=== PATIENT | female | born 1970 | race Caucasian/White ===

== ENCOUNTER → 2018-08-15 12:05 | Outpatient (CLI) | payer MEDICAID, SELFPAY ==
--- NOTE | 2018-07-11 08:10 | EKG12_ITS ---
Test Reason : PRE OP Blood Pressure : / mmHG Vent. Rate : 095 BPM Atrial Rate : 095 BPM P-R Int : 132 ms QRS Dur : 088 ms QT Int : 348 ms P-R-T Axes : 063 090 063 degrees QTc Int : 437 ms Normal sinus rhythm Rightward axis Borderline ECG Confirmed by ELADIO SCHWARZ ([id number]), web content editor ROSSY LEACH ([id number]) on 07/16/2018 2:47:13 PM Referred By: Robb Padgett Confirmed By:ELADIO SCHWARZ
[2018-07-11 08:19] LABS: Absolute Lymphocyte Count 2.25 X10^3/ul (0.83-4.51); Absolute Neutrophil Count 5.7 X10^3/uL (2.0-7.7); Basophil# 0.04 X10^3/uL; Basophil% 0.4 % (0-1); Eosinophil# 0.17 X10^3/uL; Eosinophils% 1.9 % (0-5); Hematocrit 34.3 % (37-47); Lymphocyte # 2.25 X10^3/ul (4.0); Lymphocyte % 24.8 % (19-41); Mean Corp Hgb Conc 29.2 g/gl (32-36); Mean Corpuscular Hgb 24.2 pg (27.0-32.0); Mean Corpuscular Volume 83.1 fL (81-99); Mean Platelet Vol. 10.2 fl (6.2-12.0); Monocyte# 0.96 X10^3/uL; Monocyte% 10.6 % (0-10); Neutrophil # 5.65 X10^3/uL (2.7-7.7); Neutrophil % 62.2 % (47-70); Platelet Count 372 K/mm3 (150-450); RBC Distribution Width CV 17.4 % (11.6-14.6); RBC Distribution Width SD 51.4 fl (35.1-43.9); Red Blood Count 4.13 M/mm3 (4.2-5.4); White Blood Count 9.1 K/mm3 (4.4-11.0)
[2018-07-11 08:20] LABS: POSITIVE COUNT NO; POSITIVE DIFFERENTIAL NO; POSITIVE MORPHOLOGY NO
[2018-07-11 08:45] LABS: Anion Gap 10 (5-15); BUN 16 mg/dL (7-18); BUN/Creat Ratio 22.9 RATIO (10-20); Chloride 104 mmol/L (98-107); EST Glomerular Filtration Rate 95 mL/min (>60); Est Glom Filt Rate - Afr Amer 115 mL/min (>60); Glucose 97 mg/dL (74-106); Sodium Level 142 mmol/L (136-145)
== END ==
PROVIDERS: Physician Assistant; Family Provider Family Medicine; PCP Family Medicine; Referring Provider Orthopaedic Surgery; Visit Provider Orthopaedic Surgery
DX: Z01.818 Encounter for other preprocedural examination (principal)
CPT/HCPCS: 36415; 80048; 85025; 93005

== ENCOUNTER 2018-09-01 08:48 | Day surgery (SDC) | payer MEDICAID, SELFPAY ==
[2018-08-26 16:26] LABS: Hematocrit 39.5 % (37-47); Hemoglobin 11.8 g/dl (12.0-15.0); Mean Corp Hgb Conc 29.9 g/gl (32-36); Mean Corpuscular Hgb 25.5 pg (27.0-32.0); Mean Corpuscular Volume 85.3 fL (81-99); Mean Platelet Vol. 10.1 fl (6.2-12.0); Platelet Count 215 K/mm3 (150-450); RBC Distribution Width CV 19.7 % (11.6-14.6); RBC Distribution Width SD 61.4 fl (35.1-43.9); Red Blood Count 4.63 M/mm3 (4.2-5.4); White Blood Count 7.2 K/mm3 (4.4-11.0)
[2018-08-26 16:28] LABS: Scan Indicated on CBC? Y/N NO
[2018-08-26 16:53] LABS: Anion Gap 8 (5-15); BUN 15 mg/dL (7-18); BUN/Creat Ratio 18.9 RATIO (10-20); Chloride 101 mmol/L (98-107); Creatinine, Serum 0.79 mg/dL (0.55-1.02); EST Glomerular Filtration Rate 82 mL/min (>60); Est Glom Filt Rate - Afr Amer 100 mL/min (>60); Glucose 93 mg/dL (74-106); Potassium 4.2 mmol/L (3.5-5.1); Sodium Level 139 mmol/L (136-145)
[2018-09-01] VITALS (13 sets, daily range): BP systolic 105–150; BP diastolic 51–96; PULSE 86–110; RESP 18–28; TEMP 36.4–37.4; O2SAT 88–100; BMI 53.2
[2018-09-01 09:20] LABS: Hematocrit 38.5 % (37-47); Hemoglobin 11.7 g/dl (12.0-15.0); Mean Corp Hgb Conc 30.4 g/gl (32-36); Mean Corpuscular Hgb 26.2 pg (27.0-32.0); Mean Corpuscular Volume 86.1 fL (81-99); Mean Platelet Vol. 8.7 fl (6.2-12.0); Platelet Count 267 K/mm3 (150-450); RBC Distribution Width CV 20.3 % (11.6-14.6); RBC Distribution Width SD 62.9 fl (35.1-43.9); Red Blood Count 4.47 M/mm3 (4.2-5.4); White Blood Count 9.1 K/mm3 (4.4-11.0)
[2018-09-01 09:22] LABS: Scan Indicated on CBC? Y/N YES- FLAGS NOTED
[2018-09-01 09:27] LABS: Prothrombin Time (Protime)PT. 12.9 SECONDS (11.7-14.9)
[2018-09-01 09:28] LABS: Partial Thromboplast Time 33.2 Seconds (24.1-36.2)
[2018-09-01 09:46] LABS: Differential Comment SCANNED
[2018-09-01] MEDS: Bupiv/Epi 0.5% Mpf 30 ML Vial (11:08)
--- NOTE | 2018-09-01 12:41 | PCM.OPRPT ---
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: [employer] Type of Anesthesia:: General/Regional Anesthesiologist: Dyllan Chavez Description of Procedure: Primary Surgeon/Physician: Robb Padgett sales representative printing supplies: Supa Justice PA-C sales representative printing supplies: Pre-Operative Diagnosis: SAIS, AC arthrosis, biceps tendonopathy, rotator cuff tear right Post-Operative Diagnosis: same Surgery/Procedure Performed: ASD, Biceps tenotomy, Reji procedure, rotator cuff repair Estimated Blood Loss: minimal Specimen's Removed: none Type of Anesthesia: general\regional ASA Class: 3 Implants: [Arthrex swivel lock anchors x 2] Surgical Indications: [ ] Procedure Description: Patient was greeted in the preoperative area. Their [right ] shoulder was marked with surgical marker. Preoperative antibiotics were administered. The patient was then taken to the operating suite in a stable condition. After adequate anesthesia was obtained and it was secured there placed in standard beachchair position. All bony prominences were well-padded her head was secured in a beachchair positioner. The arm was then prepped and draped in the usual sterile fashion. Surgical timeout was performed surgery was commenced. Standard posterior viewing portal was made and 30? arthroscope was introduced into the glenohumeral joint. Anterior portal was made under direct visualization. Extensive debridement of the anterior capsule was performed evaluation of the shoulder itself was performed with the following findings: [Severe biceps tendinopathy with subluxation of the tendon from the bicipital groove. The biceps tendon was released and the labrum was treated with a shaver back to a stable rim. There was a complate tear of the rotator cuff. ]. The subacromial space was then entered and extensive debridement of the subacromial bursa was performed. The undersurface of the acromion was then debrided with a thermal wand. This did reveal a type II acromion. Subacromial decompression was then performed with a arthroscopic bur from anterolateral posteromedial create a type I acromion. When this was complete the wand was then utilized to debride the acromioclavicular joint. No significant osteoarthritic changes. A distal clavicle resection was then performed removing approximately 5 mm of distal clavicle not violating the superior acromioclavicular ligament. This was complete attention was then turned to the rotator cuff [ ]. The greater tuberosity was debrided and decorticated to create some bleeding for rotator cuff healing. [Two fiber tape sutures were placed in a horizontal mattress fashion and a fiber link suture was place through the anterior suture to augment the repair . Subsequently, these were brought out laterally and secured to the bone with 2 Arthrex swivel lock anchors.]. Excellent approximation of the rotator cuff to the decorticated bone was achieved. At this point all instruments were removed and the arthroscopic portals were closed with 3-0 nylon. Well-padded nonadherent dressing was applied and patient was taken to recovery room in stable condition. My assistant art director, Mr. Justice, provided a vital role in this procedure. He assisted in positioning the patient. He maneuvered the arm to provide optimal visualization during the procedure and he closed the operative wounds and applied the sterile post-op dressing. - Admit VTE Documentation VTE Present on Admission: No VTE Mechan Device Prophylaxis: SCD's VTE Pharm Prophylaxis ordered?: No Reason prophylaxis not ordered:: Treatment Not Indicated
[2018-09-01] MEDS: Ketorolac 30 MG/ML Syringe IV (12:45)
--- NOTE | 2018-09-01 12:55 | OP.PCM_ITS ---
Report of Operation Date of Procedure: 09/01/18 Pre-Operative Diagnosis: SAIS, AC Arthrosis, bicipital tendinopathy and large rotator cuff tear right shoulder Post-Operative Diagnosis: same Surgery/Procedure Performed:: Arthroscopic subacromial decompression, biceps tenotomy, Reji procedure, rotator cuff repair right shoulder charter boat operator: Supa Justice Type of Anesthesia:: General/Regional Anesthesiologist: Dyllan Chavez Description of Procedure: Primary Surgeon/Physician: Robb Padgett charter boat operator: Supa Justice PA-C charter boat operator: Pre-Operative Diagnosis: SAIS, AC arthrosis, biceps tendonopathy, rotator cuff tear right Post-Operative Diagnosis: same Surgery/Procedure Performed: ASD, Biceps tenotomy, Reji procedure, rotator cuff repair Estimated Blood Loss: minimal Specimen's Removed: none Type of Anesthesia: general\regional ASA Class: 3 Implants: [Arthrex swivel lock anchors x 2] Surgical Indications: [ ] Procedure Description: Patient was greeted in the preoperative area. Their [right ] shoulder was marked with surgical marker. Preoperative antibiotics were administered. The patient was then taken to the operating suite in a stable condition. After adequate anesthesia was obtained and it was secured there placed in standard beachchair position. All bony prominences were well- padded her head was secured in a beachchair positioner. The arm was then prepped and draped in the usual sterile fashion. Surgical timeout was performed surgery was commenced. Standard posterior viewing portal was made and 30? arthroscope was introduced into the glenohumeral joint. Anterior portal was made under direct visualization. Extensive debridement of the anterior capsule was performed evaluation of the shoulder itself was performed with the following findings: [Severe biceps tendinopathy with subluxation of the tendon from the bicipital groove. The biceps tendon was released and the labrum was treated with a shaver back to a stable rim. There was a complate tear of the rotator cuff. ]. The subacromial space was then entered and extensive debridement of the subacromial bursa was performed. The undersurface of the acromion was then debrided with a thermal wand. This did reveal a type II acromion. Subacromial decompression was then performed with a arthroscopic bur from anterolateral posteromedial create a type I acromion. When this was complete the wand was then utilized to debride the acromioclavicular joint. No significant osteoarthritic changes. A distal clavicle resection was then performed removing approximately 5 mm of distal clavicle not violating the superior acromioclavicu lar ligament. This was complete attention was then turned to the rotator cuff [ ]. The greater tuberosity was debrided and decorticated to create some bleeding for rotator cuff healing. [Two fiber tape sutures were placed in a horizontal mattress fashion and a fiber link suture was place through the anterior suture to augment the repair . Subsequently, these were brought out laterally and secured to the bone with 2 Arthrex swivel lock anchors.]. Excellent approximation of the rotator cuff to the decorticated bone was achieved. At this point all instruments were removed and the arthroscopic portals were closed with 3-0 nylon. Well-padded nonadherent dressing was applied and patient was taken to recovery room in stable condition. My assistant maintenance manager, Mr. Justice, provided a vital role in this procedure. He assisted in positioning the patient. He maneuvered the arm to provide optimal visualization during the procedure and he closed the operative wounds and applied the sterile post-op dressing. - Admit VTE Documentation VTE Present on Admission: No VTE Mechan Device Prophylaxis: SCD's VTE Pharm Prophylaxis ordered?: No Reason prophylaxis not ordered:: Treatment Not Indicated
[2018-09-01] MEDS: HYDROcodone Bitartrate/Apap 5/325 Tablet PO (15:36)
--- NOTE | 2018-09-01 17:36 | SUR.PHASEII ---
AT 1635, THIS RN ASSUMED CARE OF PATIENT. NOTED THAT PATIENT HAD ULTRASLING TO RIGHT ARM BUT WITHOUT PILLOW ATTACHMENT IN PLACE. O.R. NURSE COULD NOT SAY WHETHER PILLOW TO BE IN PLACE. PAGED BOTH DR MARTINEZ AND CLAUDIO GONZALEZ, THROUGH THE HOSPITAL BRAZER CONTROLLED ATMOSPHERIC FURNACE TO VERIFY CORRECT ULTRASLING APPLICATION BUT DID NOT RECEIVE A RETURN CALL FROM EITHER AFTER SEVERAL ATTEMPTS. GAVE PATIENT ULTRASLING INSTRUCTIONS AND ASKED TO VERIFY APPLICATION TOMORROW WITH DR MARTINEZ'S OFFICE, PATIENT AND NIECE AGREEABLE, VERBALIZED UNDERSTANDING. PATIENT REPORTED PAIN TOLERABLE, DENIES NAUSEA, MOBILIZING WELL.
== END 2018-09-01 17:25 | disposition home or self-care (01) ==
LOC: SDC 08:48 → AC 08:53
PROVIDERS: Anesthesiology; Family Provider Family Medicine; PCP Family Medicine; Referring Provider Orthopaedic Surgery; Visit Provider Orthopaedic Surgery
PROC: (CPT 29827; principal; 2018-09-01 10:35)
DX: M75.121 Complete rotator cuff tear or rupture of right shoulder, not specified as traumatic (principal); M19.011 Primary osteoarthritis, right shoulder; M75.21 Bicipital tendinitis, right shoulder; M75.22 Bicipital tendinitis, left shoulder; F32.9 Major depressive disorder, single episode, unspecified; K21.9 Gastro-esophageal reflux disease without esophagitis; E72.12 Methylenetetrahydrofolate reductase deficiency; R00.0 Tachycardia, unspecified; I80.9 Phlebitis and thrombophlebitis of unspecified site; Z86.711 Personal history of pulmonary embolism; Z79.01 Long term (current) use of anticoagulants; Z79.899 Other long term (current) drug therapy
CPT/HCPCS: 01630; 23405; 29824; 29826; 29827; 64415; 36415; 80048; 85027; 85610; 85730; J7120; J2405

== ENCOUNTER 2018-12-13 10:25 | Inpatient (IN) | payer MEDICAID, SELFPAY ==
[2018-09-01 09:14] VITALS: BMI 53.2
[2018-12-13] VITALS (19 sets, daily range): BP systolic 82–155; BP diastolic 52–82; PULSE 115–143; RESP 16–27; TEMP 36.2–37.2; O2SAT 94–98; BMI 53.2; BMI 55.8; BMI 55.7
--- NOTE | 2018-12-13 10:43 | VDLE_ITS ---
Reason For Study: R/O Left leg DVT Procedure LEFT Exam performed portable in ED. GSV is normal. The study was technically difficult. CFV is compressible, spontaneous, phasic, A preliminary report was called and/or faxed competent, and demonstrates normal to ED. augmentation. FV is compressible, spontaneous, phasic, competent and demonstrates normal augmentation. POP V is compressible, spontaneous, phasic, competent and demonstrates normal augmentation. T/P Trunk is compressible. PTV is compressible. LT PerV is compressible. Nonvascualrized structure noted in calf muscle measuring 3.34 x 9.54 cm. Interpretation Summary Deep veins of the left lower extremity are patent and compressible segmentally. There is no evidence of left lower extremity deep vein thrombosis. Valvular competence appears intact within the proximal deep venous system on the left . The left greater saphenous vein appears patent and compressible segmentally. A non-vascular structure is noted in the left calf musculature, measuring 3.34 cm x 9.54 cm. This may represent a hematoma. Clinical correlation is advised. Ordering Physician: Yazan Morales Performed By: Charity Wren RVT
--- NOTE | 2018-12-13 10:45 | ED.VISSUMM ---
- ER Visit Summary Date of Service: 12/13/18 Chief Complaint: Left leg pain History of Present Illness: The patient is a 48 F with a history of DVT and subtherapeutic Coumadin. She has been covered with Lovenox. She had an ultrasound yesterday that showed a hematoma but no evidence of DVT. She had continued pain today patient called her primary doctor I was concerned for DVT still despite being negative ultrasound yesterday. Patient denies skin changes, fevers, chest pain, shortness of breath, or any other symptoms. Pain is severe and has impaired her ability to ambulate. Physical Examination: Afebrile and vital signs are unremarkable except for heart rate of 122. The patient appears nontoxic and in no acute distress. Left calf tender to palpation. No edema. Neurovascular intact distally. Test Results: Ultrasound and INR pending. Emergency Department Course and Treatment: Patient treated with pain medicine while awaiting results. INR 1.9. Ultrasound shows no evidence of DVT. Her calf muscles show an irregularity. The non destructive testing technician was unable to characterize further. Patient is requiring repeat doses of pain medicine. She is unable to ambulate. I attempted to order an MRI, but the technicians are not available at this time today. I checked further blood work and a CT. She has a large what appears to be hematoma in the left calf muscles. I paged Dr. Sawant and discussed the patient. I reevaluated her. She was having increasing pain and swelling. Pain with dorsiflexion. She said that over the last hour she started to have paresthesias. We are concerned for compartment syndrome. Patient will need to go to the operating room. I am waiting to hear back from the hospitalist about admission. Dr. Sawant asked if the hospitalist could manage her in a coagulation. Treatment Plan: As above Disposition: Admission Impression: 1. Left lower extremity pain This note was generated with [employer] dictation software. It may contain incorrect words, spelling, and punctuation that were not noted in review of the chart prior to signing ED Disposition - Plan for ED Patient: Referrals: Tarah Dubon DO [Primary Care Provider] -
[2018-12-13] MEDS: HYDROmorphone 1 MG/ML Syringe IV ×3 (11:04→15:01)
[2018-12-13 11:19] LABS: International Normalized Ratio 1.9; Prothrombin Time (Protime)PT. 21.6 SECONDS (11.7-14.9)
--- NOTE | 2018-12-13 12:51 | CT_ITS ---
We are attempting to reach an attending provider to discuss findings. An addendum with communication details will be sent when the communication is complete. Comparison: None available. TECHNIQUE: CT images were obtained of the left lower extremity without IV contrast. Multiplanar reconstructions performed. FINDINGS: There is no fracture or dislocation. No aggressive appearing osseous lesions are present. Total knee arthroplasty has been performed. There is no perihardware lucency to suggest loosening or infection. In the medial calf muscular soft tissues there is a fluid collection measuring approximately 13.5 cm in craniocaudal dimension and 6.3 x 3 cm in cross-section. There is a density gradient at the distal aspect of the collection. Mild soft tissue swelling is present. CT/Extremity Lower WITH Contrast IMPRESSION: Medial calf muscle fluid collection measuring 13.5 x 6.3 x 3 cm in size, possibly representing an intramuscular hematoma, although abscess is a consideration in appropriate clinical context. Clinical assessment is recommended, with recommendation to assessment to exclude compartment syndrome. No fracture or dislocation. Electronically Signed: Eric Arnold, at 14:00 EDT Tel , Service support ,
[2018-12-13 13:07] LABS: Absolute Lymphocyte Count 2.37 X10^3/ul (0.83-4.51); Absolute Neutrophil Count 6.1 X10^3/uL (2.0-7.7); Basophil# 0.04 X10^3/uL; Basophil% 0.4 % (0-1); Eosinophil# 0.31 X10^3/uL; Eosinophils% 3.1 % (0-5); Hemoglobin 12.5 g/dl (12.0-15.0); Lymphocyte # 2.37 X10^3/ul (4.0); Lymphocyte % 23.9 % (19-41); Mean Corp Hgb Conc 32.1 g/gl (32-36); Mean Corpuscular Hgb 29.5 pg (27.0-32.0); Mean Platelet Vol. 10.8 fl (6.2-12.0); Monocyte# 1.07 X10^3/uL; Monocyte% 10.8 % (0-10); Neutrophil # 6.07 X10^3/uL (2.7-7.7); Neutrophil % 61.4 % (47-70); POSITIVE COUNT NO; POSITIVE DIFFERENTIAL NO; Platelet Count 192 K/mm3 (150-450); RBC Distribution Width CV 15.4 % (11.6-14.6); RBC Distribution Width SD 51.4 fl (35.1-43.9); Red Blood Count 4.24 M/mm3 (4.2-5.4); White Blood Count 9.9 K/mm3 (4.4-11.0)
[2018-12-13 13:08] LABS: POSITIVE MORPHOLOGY NO
[2018-12-13 13:12] LABS: Anion Gap 7 (5-15); BUN 15 mg/dL (7-18); BUN/Creat Ratio 15.4 RATIO (10-20); Calcium,Total 9.2 mg/dL (8.5-10.1); Chloride 103 mmol/L (98-107); Creatinine, Serum 0.97 mg/dL (0.55-1.02); EST Glomerular Filtration Rate 65 mL/min (>60); Est Glom Filt Rate - Afr Amer 79 mL/min (>60); Glucose 113 mg/dL (74-106); Sodium Level 136 mmol/L (136-145)
--- NOTE | 2018-12-13 14:58 | HP.PCM_ITS ---
History of Present Illness Date of Admission: 12/13/18 Chief Complaint: LLE pain and swelling The patient is a 48 year old F with a past medical history of PE 9 years ago, on Coumadin lupus anticoagulant and depression as well as hypertension. She was admitted through the ED on 12/13/2018 with a complaint of left cough pain and swelling of one day duration. Patient states she was recently admitted a week ago at a hospital in [place] on account of sepsis due to pneumonia. During that admission, her INR was subtherapeutic so she was started on therapeutic Lovenox for bridging. Patient was on her way back from [place] yesterday when she noticed that she was having some pain in her left calf. She does not remember any trauma but only remembers that while she was getting into and out of the van, she may have hit her leg. Patient got back to [place] and realized that pain and swelling was getting worse in the left calf. She was also having tingling and numbness so she decided to come into the ED. In the ED symptoms actually worsened with the swelling worsening and having significant pain in her calf. Duplex of the left lower extremity done showed patent and compressible deep veins bilaterally. There was a nonvascular structure noted in the left calf musculature measuring 3.34 cm x 9.54 cm which may be member services representative of a hematoma. To follow this up further, a CT of the left lower extremity was done which showed medial cough muscle fluid collection measuring 13.5 x 6.3 x 3 cm in size possibly representing an intramuscular hematoma though abscess could be a consideration in appropriate clinical context. Due to patient's worsening pain and swelling as well as markedly decreased distal pulses, a diagnosis of compartment syndrome due to intramuscular hematoma was made. INR was 1.9, and she was tachycardic and tachypneic. CBC was unremarkable and BMP was also unremarkable. Orthopedic surgeon Dr Sawant was contacted and is to take patient emergently to surgery for fasciotomy. [] Past Medical History Allergies adhesive tape Adverse Reaction (Verified 12/13/18 10:26) Rash Home Medications: Ambulatory Orders Medication Instructions Recorded Aripiprazole [Abilify] 2 mg PO DAILY 07/10/18 Hydrocodone/Acetaminophen 1 each PO Q6H PRN PRN 07/10/18 [Hydrocodon-Acetaminoph 7.5-325] Methotrexate Sodium [Methotrexate] 14 mg PO FR 07/10/18 Metoprolol Succinate [Toprol Xl] 25 mg PO DAILY 07/10/18 Omeprazole 40 mg PO DAILY 07/10/18 Prednisone 4 mg PO DAILY 07/10/18 Ranitidine [Zantac] 150 mg PO QHS 07/10/18 Venlafaxine HCl [Effexor] 225 mg PO DAILY 07/10/18 Warfarin [Coumadin ([facility])] 5 mg PO DAILY 07/10/18 Bupropion HCl [Bupropion Xl] 300 mg PO DAILY 08/25/18 Enoxaparin Sodium [Lovenox] 80 mg SQ BID 08/25/18 Ferrous Sulfate 325 mg PO DAILY@0800 08/25/18 Hydroxyzine Pamoate [Vistaril] 50 mg PO PRN PRN 08/25/18 Ropinirole HCl [Ropinirole ER] 2 mg PO QHS 08/25/18 Trazodone ER [Oleptro Er] 150 mg PO QHS 08/25/18 Meloxicam [Mobic] 7.5 mg PO QHS 12/13/18 Surgical History: - - bilateral knee replacement Psychiatric History: No pertinent psych hx 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 History: No pertinent 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 history Lives: With Family Smoking Status: Never smoker Alcohol: None - *Family History Maternal History Items: No pertinent history Paternal History Items: No pertinent history Review of Systems Constitutional: Denies: Chills, Fever, Weight Change Eyes: Denies: Blurred vision HEENT: Denies: Head Aches, Sinus Congestion, Sinus Drainage Cardiovascular: Denies: Chest Pain, Palpitations Respiratory: Denies: Cough, Shortness of Breath, Shortness of breath at rest, Sputum production Gastrointestinal: Denies: Abdominal Pain, Nausea, Vomiting Genitourinary: Denies: Dysuria Musculoskeletal: Reports: Leg Pain, Muscle pain. Denies: Arm Pain, Back Pain, Foot Pain, Hand Pain, Joint Pain, Joint swelling Skin: Denies: Rash, Wounds Neurological: Denies: Numbness, Tingling, Focal weakness Psychiatric: Denies: Anxiety, Depression, Homicidal Ideations, Suicidal Ideations Hematologic/ Lymphatic: Denies: Easy Bruising, Easy Bleeding VTE Information - Inpt Only VTE Present on Admission: No VTE Pharm Prophylaxis ordered?: Yes - Physical Exam General: Alert, Oriented x3, Cooperative, - - mild distress due to pain HEENT: Atraumatic, PERRLA, EOMI, Normocephalic Oral: Moist Mucosa Neck: Supple, No JVD, Negative Carotid Bruits Lungs: Clear to auscultation, Normal air movement, No rhonchi, No wheeze, No rales Cardiovascular: Regular Rhythm, Normal S1, Normal S2, No murmurs, Tachycardic Abdomen: Bowel Sounds Present, Soft, Non Tender, Non-Distended, No Hepato- splenomegaly Skin: No rashes, No breakdown, - - ecchymotic patches over abdomen, from lovenox shots Musculoskeletal: - - swelling and tenderness as well as induration of left calf; markedly diminished left DP and PT pulse, left feels cool to touch Lymphatic: No Cervical, Supraclavicular, or Inguinal Adenopathy Neurological: Cranial nerves II-XII grossly intact Psych/Mental Status: Normal Affect, Appropriate, Alert and oriented to time, place, person, mood and affect Vital Signs Temp Pulse Resp BP Pulse Ox 98.2 F 115 H 19 H 117/80 94 12/13/18 10:26 12/13/18 14:49 12/13/18 14:49 12/13/18 14:49 12/13/18 14:49 Oxygen Delivery Method Room Air Weight: 330 lb Body Mass Index (BMI) 53.2 Laboratory Tests Past 24 Hrs 12/13/18 12/13/18 12/13/18 11:00 11:00 11:00 WBC 9.9 RBC 4.24 Hgb 12.5 Hct 39.0 MCV 92.0 MCH 29.5 MCHC 32.1 RDW 15.4 H RDW Differential 51.4 H Plt Count 192 MPV 10.8 Immature Gran % (Auto) 0.400 Neut % (Auto) 61.4 Lymph % (Auto) 23.9 Bent % (Auto) 10.8 H Eos % (Auto) 3.1 Baso % (Auto) 0.4 Absolute Neuts (auto) 6.1 Absolute Lymphs (auto) 2.37 Total Counted Not Reportable PT 21.6 H INR 1.9 Sodium 136 Potassium 4.0 Chloride 103 Carbon Dioxide 26.0 Anion Gap 7 BUN 15 Creatinine 0.97 Estim Creat Clear Calc 66.40 Est GFR (MDRD) Af Amer 79 Est GFR (MDRD) Non-Af 65 BUN/Creatinine Ratio 15.4 Glucose 113 H Calcium 9.2 Diagnostic Data Lower Extremity CT 12/13/18 12:51 IMPRESSION: Medial calf muscle fluid collection measuring 13.5 x 6.3 x 3 cm in size, possibly representing an intramuscular hematoma, although abscess is a consideration in appropriate clinical context. Clinical assessment is recommended, with recommendation to assessment to exclude compartment syndrome. No fracture or dislocation. Electronically Signed: Eric Arnold, at 14:00 EDT Tel , Service support , ADDENDUM: 12/13/18 1425 IMPRESSION: Medial calf muscle fluid collection measuring 13.5 x 6.3 x 3 cm in size, possibly representing an intramuscular hematoma, although abscess is a consideration in appropriate clinical context. Clinical assessment is recommended, with recommendation to assessment to exclude compartment syndrome. No fracture or dislocation. N.B. : The above information has been verbally conveyed by Eric Arnold to [phone], on 12/13/2018 14:18:36 (ET). Electronically Signed: Eric Arnold, at 14:00 EDT Tel , Service support , Assessment/Plan 48-year-old female admitted through the ED with a complaint of left calf pain and swelling. 1.Left calf hematoma, concerning for acute compartment syndrome of left calf * left calf USG showe dno DVT but showed a hematoma * LLE CT showed medial calf muscle fluid colletion measuring 13.5cmx6.7jss1pa, possibly representing intramuscular hematoma * hold coumadin and lovenox * give IV vitamin K 10mg once * orthopedic surgery consulted; to go for emergent fasciotomy * IV morphine prn for pain * 2. Hypertension: Controlled. On metoprolol 25 mill grams daily. 3. History of PE: * Coumadin and lovenox on hold. * had PE nine years ago; states Coumadin was continued on account of her testing positive for lupus anticoagulant. * Coumadin on hold on account of hematoma. * 4. History of rheumatoid arthritis * on methotrexate and prednisone * 5. Restless leg syndrome: on ropinirole 6. Hypertension: controlled. On metoprolol. DVT prophylaxis: SCDs. No anticoagulation for now Code Visit Inpatient E&M: 71318 Init Hosp L3
--- NOTE | 2018-12-13 16:01 | CON.PCM_ITS ---
Problem List (1) Hematoma Status: Acute (2) Compartment syndrome of left lower extremity Status: Acute Qualifiers: Encounter type: initial encounter Qualified Code(s): T79.A22A - Traumatic compartment syndrome of left lower extremity, initial encounter Reason for Consult Date of Consultation: 12/13/18 Reason for Consultation: left leg pain History of Present Illness: ] The patient is a 48 year old F with a past medical history of PE 9 years ago, on Coumadin lupus anticoagulant, on lovenox and coumadin . She was admitted through the ED on 12/13/2018 with a complaint of left cough pain and swelling of one day duration. Patient was recently admitted a week ago at a osh for sepsis due to pneumonia. During that admission, her INR was subtherapeutic so she was started on therapeutic Lovenox for bridging. Patient was on her way back from [place] yesterday when she noticed that she was having some pain in her left calf. unknown trauma but today increasing pain and redness and once in ED then having paresthesias and worsening pain in leg with any movement of ankle. In the ED symptoms actually worsened with the swelling worsening and having significant pain in her calf. Per hospitalist note Duplex of the left lower extremity done showed patent and compressible deep veins bilaterally. There was a nonvascular structure noted in the left calf musculature measuring 3.34 cm x 9.54 cm which may be call center support representative of a hematoma. To follow this up further, a CT of the left lower extremity was done which showed medial cough muscle fluid collection measuring 13.5 x 6.3 x 3 cm in size possibly representing an intramuscular hematoma though abscess could be a consideration in appropriate clinical context. patient having increasing pain and swelling , compartment syndrome due to intramuscular hematoma Orthopedic to take patient emergently to surgery for fasciotomy. No SOB on exam, pain and redness localized and there is a bruise at location of hematoma on calf corresponding with ct. Past Medical History Allergies adhesive tape Adverse Reaction (Verified 12/13/18 10:26) Rash Home Medications: Ambulatory Orders Medication Instructions Recorded Aripiprazole [Abilify] 2 mg PO DAILY 07/10/18 Hydrocodone/Acetaminophen 1 each PO Q6H PRN PRN 07/10/18 [Hydrocodon-Acetaminoph 7.5-325] Methotrexate Sodium [Methotrexate] 14 mg PO FR 07/10/18 Metoprolol Succinate [Toprol Xl] 25 mg PO DAILY 07/10/18 Omeprazole 40 mg PO DAILY 07/10/18 Prednisone 4 mg PO DAILY 07/10/18 Ranitidine [Zantac] 150 mg PO QHS 07/10/18 Venlafaxine HCl [Effexor] 225 mg PO DAILY 07/10/18 Warfarin [Coumadin ([facility])] 5 mg PO DAILY 07/10/18 Bupropion HCl [Bupropion Xl] 300 mg PO DAILY 08/25/18 Enoxaparin Sodium [Lovenox] 80 mg SQ BID 08/25/18 Ferrous Sulfate 325 mg PO DAILY@0800 08/25/18 Hydroxyzine Pamoate [Vistaril] 50 mg PO PRN PRN 08/25/18 Ropinirole HCl [Ropinirole ER] 2 mg PO QHS 08/25/18 Trazodone ER [Oleptro Er] 150 mg PO QHS 08/25/18 Meloxicam [Mobic] 7.5 mg PO QHS 12/13/18 Surgical History: - - bilateral knee replacement Psychiatric History: No pertinent psych hx [employer]CH[employer]ICAL DIRECT[employer] History: No pertinent [employer]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 Denies: Joint Tenderness Skin: Denies: Rash, Wounds Neurological: Denies: Numbness, Tingling, Focal weakness Psychiatric: Denies: Anxiety, Depression, Homicidal Ideations, Suicidal Ideations Hematologic/ Lymphatic: Denies: Easy Bruising, Easy Bleeding Patient Problems: Active and Suspected Problems Hematoma (Acute) Compartment syndrome of left lower extremity (Acute) - Physical Exam General: Alert - pain out of proportion to exam with dorsiflexion of left ankle, increasing swelling of left leg, Oriented x3, Cooperative HEENT: Atraumatic, PERRLA, EOMI, Normocephalic Neck: Supple, No JVD, Negative Carotid Bruits Lungs: Clear to auscultation, Normal air movement Cardiovascular: Regular rate, No murmurs Abdomen: Bowel Sounds Present, Soft, Non Tender Extremities: No edema, Capillary Refill Less than 3 Seconds, Tenderness - around entire calf, rigid Skin: No rashes, No breakdown Musculoskeletal: Tenderness - as above, extreme pain with passive flexion of ankle, per patient worse in last couple of hours being in ER and more tense and rigid to compression, dp difficult to find on exam Neurological: Cranial nerves II-XII grossly intact Psych/Mental Status: Normal Affect, Appropriate Vital Signs Temp Pulse Resp BP Pulse Ox 99.0 F 115 H 19 H 117/80 94 12/13/18 15:16 12/13/18 15:16 12/13/18 15:16 12/13/18 15:16 12/13/18 15:16 Oxygen Delivery Method Room Air Weight: 330 lb Body Mass Index (BMI) 53.2 Laboratory Tests Past 24 Hrs 12/13/18 12/13/18 12/13/18 11:00 11:00 11:00 WBC 9.9 RBC 4.24 Hgb 12.5 Hct 39.0 MCV 92.0 MCH 29.5 MCHC 32.1 RDW 15.4 H RDW Differential 51.4 H Plt Count 192 MPV 10.8 Immature Gran % (Auto) 0.400 Neut % (Auto) 61.4 Lymph % (Auto) 23.9 [place] % (Auto) 10.8 H Eos % (Auto) 3.1 Baso % (Auto) 0.4 Absolute Neuts (auto) 6.1 Absolute Lymphs (auto) 2.37 Total Counted Not Reportable PT 21.6 H INR 1.9 Sodium 136 Potassium 4.0 Chloride 103 Carbon Dioxide 26.0 Anion Gap 7 BUN 15 Creatinine 0.97 Estim Creat Clear Calc 66.40 Est GFR (MDRD) Af Amer 79 Est GFR (MDRD) Non-Af 65 BUN/Creatinine Ratio 15.4 Glucose 113 H Calcium 9.2 Assessment/Plan All Active Problems Hematoma (Acute) Compartment syndrome of left lower extremity (Acute) left leg enlarging hematoma w compartment syndrome ct vs us shows enlarging hematoma with worsening clinical picture so taken emergently to OR for fasciotomies, based on clinical exam Reviewed the pre-operative plans with the patient. Risks and benefits of the procedure were fully explained, including but not limited to infection, neurovascular injury, continued pain, arthritis, stiffness, need for further surgery, re-injury, DVT, PE, general risks of anesthesia, and loss of limb or life. The patient understands all the risks and does wish to proceed with written consent. discussed patient risky d/t history of blood clots as well as being on blood thinners but her exam is quite remarkable for compartment syndrome so we will take her to OR for hematoma evacuation / compt release. patient aware of risks and elects to proceed. ar Pepper LE emergent fascitotomies consent patient comorbid conditions, worsened by her recent hospitalization does complicate things and increase her risk for morbidity and mortality. patient and family aware.
[2018-12-13 17:15] LABS: Absolute Lymphocyte Count 2.85 X10^3/ul (0.83-4.51); Absolute Neutrophil Count 5.6 X10^3/uL (2.0-7.7); Basophil# 0.04 X10^3/uL; Basophil% 0.4 % (0-1); Differential Indicated SCAN CRITERIA MET; Eosinophil# 0.21 X10^3/uL; Eosinophils% 2.2 % (0-5); Hematocrit 32.5 % (37-47); Hemoglobin 10.4 g/dl (12.0-15.0); Lymphocyte # 2.85 X10^3/ul (4.0); Lymphocyte % 29.3 % (19-41); Mean Corpuscular Hgb 29.4 pg (27.0-32.0); Mean Corpuscular Volume 91.8 fL (81-99); Mean Platelet Vol. 9.9 fl (6.2-12.0); Monocyte# 1.04 X10^3/uL; Monocyte% 10.7 % (0-10); Neutrophil # 5.57 X10^3/uL (2.7-7.7); Neutrophil % 57.1 % (47-70); POSITIVE COUNT YES; POSITIVE DIFFERENTIAL NO; POSITIVE MORPHOLOGY NO; Platelet Count 268 K/mm3 (150-450); RBC Distribution Width SD 50.3 fl (35.1-43.9); Red Blood Count 3.54 M/mm3 (4.2-5.4); White Blood Count 9.7 K/mm3 (4.4-11.0)
[2018-12-13 17:30] LABS: Differential Comment SCANNED
[2018-12-13 18:01] LABS: Bedside Glucose 115 mg/dL (70-110)
--- NOTE | 2018-12-13 18:05 | OP.PCM_ITS ---
Problem List (1) Compartment syndrome of left lower extremity Status: Acute Qualifiers: Encounter type: initial encounter Qualified Code(s): T79.A22A - Traumatic compartment syndrome of left lower extremity, initial encounter (2) Hematoma Status: Acute Report of Operation Date of Procedure: 12/13/18 Pre-Operative Diagnosis: left leg expanding hematoma/ compartment syndrome Post-Operative Diagnosis: same Surgery/Procedure Performed:: left lower extremity emergent fasciotomies Type of Anesthesia:: General Anesthesiologist: Tiny Anderson Estimated Blood Loss (mL): 350cc Fluids Replaced: see anesthesia chart Description of Procedure: Preop note. See consultation report for further information Operative note Patient seen and examined preoperative holding her. Patient had pain with passive extension stretch of her left lower extremity tense lower extremity worsening per patient and paresthesias diminishing DP pulse. Patient taken emergently to the OR. Left leg was marked. Prior to. Patient brought to the operating placed supine the operating table. Sign, anesthesia, antibiotics wereinitiated. The left leg was prepped and draped usual sterile fashion with tourniquet around upper thigh. Timeout was performed. We then marked out her incisions for lateral and medial fasciotomies. Extending 20 cm on the lateral as well as the medial side in standard technique dissected down to the fascia fascia on the medial side as this is the site of the expanding hematoma that was visualized based on the ultrasound on the CT. We excised the posterior medial the fascia overlying the start of the superficial posterior compartment and at the time that we did release the compartment there was the hematoma actually extruded out quite explosively out of the wound. We then released the fascia proximally and distally and then off the soleus posterior medial to release the deep posterior compartment proximally and distally as well. We then irrigated with a pulsatile VAC. We then moved to our lateral fasciotomies which was done in standard technique cut the skin with a 15 blade dissected down to the lateral septum which was released transversely and then making sure that we did magdalena out the site of the nerve distally prior to making our incision and ensuring that we did not that all neurovascular structures were well protected throughout the entire case. We then completed our fasciotomy on the lateral side proximally and distally and then irrigated with copious nonsterile saline VAC sponge was placed in the lateral side please go to the lateral incision was about 20 cm in the medial was about 23 cm in length. We marked out our incision directly over the anterolateral intermuscular septum next incision about 20 cm distally we identified the nerve about 11 cm proximal to the tip of the lateral malleolus incising cut through skin and dissected down to the intermuscular septum proximally was made a short transverse incision anterior to the intermuscular septum and around the scissors cephalad and caudally to complete our compartment release. We then incised the lateral fascia by localizing in a muscle supplement approximately the one making a short transverse incision posterior to the intermuscular septum and then ran this is her cephalad and caudad. There was extrusion of the muscles after release however the muscles themselves were in good condition and they were not necrotic and please note that all neurovascular structures were protected all times. Please note that we are unable to close either side after releasing the compartments as the there is obviously under pressure and confirming her diagnosis. And patient was transferred to recovery room in stable condition. next Postoperative Discussed at length detail with family the risk for morbidity and mortality in the acutely in the 48 hours due to her fact that she just had sepsis from pneumonia DVTs etc., bleeding risk, etc Next Did discuss with hospitalist to admit patient to ICU monitoring overnight due to complicated history next Ancef Weight-bear as tolerated We will change VAC in 48 hours, wound care consulted addendum Patient having a lot of drainage from her leg due to the fact that she was on Coumadin and Lovenox and VAC changed to wet-to-dry dressings twice daily dressing changes in the PACU. Neurovascularly intact postop defined DP pulse and PT pulse with Doppler as well This note was generated with [employer] dictation software. It may contain incorrect words, spelling, and punctuation that were not noted in checking the note before signing.
[2018-12-13] MEDS: HYDROCODONE/APAP 7.5-325/15ML 15 ML UDC PO (19:49)
[2018-12-13] MEDS: 0.9% Normal Saline 1,000 ML 150 ML IV (19:50)
[2018-12-13] MEDS: hydrOXYzine PAM 25 MG Capsule 50 MG PO (21:57)
[2018-12-13] MEDS: Famotidine 20 MG Tablet PO (21:57)
[2018-12-13] MEDS: traZODone 50 MG Tablet 150 MG PO (21:57)
[2018-12-13] MEDS: Pramipexole Di-HCl 0.25 MG Tablet PO (21:57)
[2018-12-13] MEDS: 0.9% Normal Saline 1,000 ML 999 ML IV (23:47)
[2018-12-14] VITALS (27 sets, daily range): BP systolic 105–146; BP diastolic 53–76; PULSE 105–135; RESP 16–37; TEMP 36.6–37.2; O2SAT 93–100
[2018-12-14] MEDS: Cefazolin 1 GM/50 ML BAG IV ×2 (00:09→08:09)
[2018-12-14] MEDS: Morphine 2 MG/ML Syringe IV ×4 (00:42→18:03)
[2018-12-14] MEDS: 0.9% Normal Saline 1,000 ML 150 ML IV (02:16)
[2018-12-14 04:21] LABS: Absolute Lymphocyte Count 1.75 X10^3/ul (0.83-4.51); Absolute Neutrophil Count 8.5 X10^3/uL (2.0-7.7); Eosinophil# 0.01 X10^3/uL; Eosinophils% 0.1 % (0-5); Hematocrit 27.4 % (37-47); Hemoglobin 8.7 g/dl (12.0-15.0); Lymphocyte # 1.75 X10^3/ul (4.0); Lymphocyte % 16.2 % (19-41); Mean Corp Hgb Conc 31.8 g/gl (32-36); Mean Corpuscular Hgb 29.5 pg (27.0-32.0); Mean Corpuscular Volume 92.9 fL (81-99); Mean Platelet Vol. 8.9 fl (6.2-12.0); Monocyte# 0.51 X10^3/uL; Monocyte% 4.7 % (0-10); Neutrophil # 8.45 X10^3/uL (2.7-7.7); Neutrophil % 78.4 % (47-70); Platelet Count 293 K/mm3 (150-450); RBC Distribution Width CV 15.1 % (11.6-14.6); RBC Distribution Width SD 51.4 fl (35.1-43.9); Red Blood Count 2.95 M/mm3 (4.2-5.4); White Blood Count 10.8 K/mm3 (4.4-11.0)
[2018-12-14 04:23] LABS: Anion Gap 6 (5-15); BUN 12 mg/dL (7-18); BUN/Creat Ratio 18.4 RATIO (10-20); Calcium,Total 7.8 mg/dL (8.5-10.1); Chloride 107 mmol/L (98-107); Creatinine, Serum 0.65 mg/dL (0.55-1.02); EST Glomerular Filtration Rate 103 mL/min (>60); Est Glom Filt Rate - Afr Amer 124 mL/min (>60); Estimated Creatinine Clearance 99.09 ml/min; Glucose 135 mg/dL (74-106); Potassium 4.7 mmol/L (3.5-5.1); Sodium Level 139 mmol/L (136-145)
[2018-12-14 04:27] LABS: POSITIVE COUNT NO; POSITIVE DIFFERENTIAL NO; POSITIVE MORPHOLOGY NO
[2018-12-14] MEDS: Pramipexole Di-HCl 0.25 MG Tablet PO ×2 (05:21→21:11)
[2018-12-14] MEDS: HYDROCODONE/APAP 7.5-325/15ML 15 ML UDC PO (08:05)
[2018-12-14] MEDS: Ferrous Sulfate 325 MG Tablet PO (08:12)
[2018-12-14] MEDS: Metoprolol(XL)Succ 25 MG Tablet PO (08:12)
[2018-12-14] MEDS: ARIPiprazole 2 MG Tablet PO (08:12)
[2018-12-14] MEDS: Venlafaxine XR 75 MG Capsule 225 MG PO (08:13)
[2018-12-14] MEDS: Pantoprazole Sodium 40 MG Tablet PO (08:15)
[2018-12-14] MEDS: buPROPion (XL) 300 MG TABLET.XL PO (08:15)
[2018-12-14] MEDS: predniSONE 1 MG Tablet 4 MG PO (08:15)
--- NOTE | 2018-12-14 09:23 | PCM.PN.HOSP ---
Subjective: Patient seen and examined. She is postop day 1 of emergent left lower extremity fasciotomy for hematoma and compartment syndrome. She was transferred to the ICU after surgery for closer overnight monitoring. She complains of pain in her left lower extremity though is well controlled. She denies any fever chills and admits to palpitations which she states is chronic. She denies any lightheadedness or dizziness. Review of systems otherwise negative. Labs and vitals reviewed. Vitals/I&O's: Vital Signs Temp Pulse Resp BP Pulse Ox 98.1 F 129 H 16 139/72 H 99 12/14/18 08:00 12/14/18 09:00 12/14/18 09:00 12/14/18 09:00 12/14/18 09:00 Oxygen Flow Rate (L/min) 2 Oxygen Delivery Method Nasal Cannula Weight: 353 lb 9.943 oz Body Mass Index (BMI) 55.7 Finger Stick Blood Glucose 115 Intake and Output for Last 24 Hours 12/12/18 12/13/18 12/14/18 23:59 23:59 23:59 Intake Total 1400 / 1400 3930 / 3930 Output Total 1200 / 1200 Balance 1400 / 1400 2730 / 2730 General: Alert, Oriented x3, Cooperative, HEENT: Atraumatic, PERRLA, EOMI, Normocephalic Oral: Moist Mucosa Neck: Supple, No JVD, Negative Carotid Bruits Lungs: Clear to auscultation, Normal air movement, No rhonchi, No wheeze, No rales Cardiovascular: Regular Rhythm, Normal S1, Normal S2, No murmurs, Tachycardic Abdomen: Bowel Sounds Present, Soft, Non Tender, Non-Distended, No Hepato-splenomegaly Skin: No rashes, No breakdown, - - ecchymotic patches over abdomen, from lovenox shots Musculoskeletal: - - LLE in clean bandage; dressing intact. LEft DP and PT pulse is palpable but slightly weak. Lymphatic: No Cervical, Supraclavicular, or Inguinal Adenopathy Neurological: Cranial nerves II-XII grossly intact Psych/Mental Status: Normal Affect, Appropriate, Alert and oriented to time, place, person, mood and affect Laboratory Results 12/13/18 11:00: PT 21.6 H, INR 1.9 12/13/18 11:00: WBC 9.9, RBC 4.24, Hgb 12.5, Hct 39.0, MCV 92.0, MCH 29.5, MCHC 32.1, RDW 15.4 H, RDW Differential 51.4 H, Plt Count 192, MPV 10.8, Immature Gran % (Auto) 0.400, Neut % (Auto) 61.4, Lymph % (Auto) 23.9, [place] % (Auto) 10.8 H, Eos % (Auto) 3.1, Baso % (Auto) 0.4, Absolute Neuts (auto) 6.1, Absolute Lymphs (auto) 2.37, Total Counted Not Reportable 12/13/18 11:00: Sodium 136, Potassium 4.0, Chloride 103, Carbon Dioxide 26.0, Anion Gap 7, BUN 15, Creatinine 0.97, Estim Creat Clear Calc 66.40, Est GFR (MDRD) Af Amer 79, Est GFR (MDRD) Non-Af 65, BUN/Creatinine Ratio 15.4, Glucose 113 H, Calcium 9.2 12/13/18 16:50: WBC 9.7, RBC 3.54 L, Hgb 10.4 L, Hct 32.5 L, MCV 91.8, MCH 29.4, MCHC 32.0, RDW 15.0 H, RDW Differential 50.3 H, Plt Count 268, MPV 9.9, Immature Gran % (Auto) 0.300, Neut % (Auto) 57.1, Lymph % (Auto) 29.3, [place] % (Auto) 10.7 H, Eos % (Auto) 2.2, Baso % (Auto) 0.4, Absolute Neuts (auto) 5.6, Absolute Lymphs (auto) 2.85, Total Counted Not Reportable, Differential Comment SCANNED 12/13/18 16:53: Blood Type O POSITIVE, Antibody Screen NEGATIVE 12/13/18 17:55: POC Glucose 115 H 12/14/18 03:55: WBC 10.8, RBC 2.95 L, Hgb 8.7 L, Hct 27.4 L, MCV 92.9, MCH 29.5, MCHC 31.8 L, RDW 15.1 H, RDW Differential 51.4 H, Plt Count 293, MPV 8.9, Immature Gran % (Auto) 0.600, Neut % (Auto) 78.4 H, Lymph % (Auto) 16.2 L, [place] % (Auto) 4.7, Eos % (Auto) 0.1, Baso % (Auto) 0.0, Absolute Neuts (auto) 8.5 H, Absolute Lymphs (auto) 1.75, Total Counted Not Reportable 12/14/18 03:55: Sodium 139, Potassium 4.7, Chloride 107, Carbon Dioxide 26.0, Anion Gap 6, BUN 12, Creatinine 0.65, Estim Creat Clear Calc 99.09, Est GFR (MDRD) Af Amer 124, Est GFR (MDRD) Non-Af 103, BUN/Creatinine Ratio 18.4, Glucose 135 H, Calcium 7.8 L Current Medications Hydrocodone Bitart/Acetaminophen (Lortab [Replacement] 7.5-325/15) 15 ml PO Q6H PRN PRN Reason: PAIN Last Admin: 12/14/18 08:05 Dose: 15 ml Aripiprazole (Abilify) 2 mg PO DAILY [facility] Last Admin: 12/14/18 08:12 Dose: 2 mg Bupropion HCl (Wellbutrin Xl) 300 mg PO DAILY [facility] Last Admin: 12/14/18 08:15 Dose: 300 mg Dextrose (D50w Syringe) 0 gm IV X1 PRN; Protocol PRN Reason: Hypoglycemia Famotidine (Pepcid) 20 mg PO QHS [facility] Last Admin: 12/13/18 21:57 Dose: 20 mg Ferrous Sulfate (Ferrous Sulfate) 325 mg PO DAILY@0800 [facility] Last Admin: 12/14/18 08:12 Dose: 325 mg Glucagon () 1 mg IM .X1 PRN PRN Reason: Hypoglycemia Hydroxyzine Pamoate (Vistaril Pamoate Capsule) 50 mg PO QHS PRN PRN PRN Reason: SLEEP Last Admin: 12/13/18 21:57 Dose: 50 mg Sodium Chloride () 250 mls @ 15 mls/hr IV .[id number] PRN PRN Reason: SALINE FLUSH Metoprolol Succinate (Toprol Xl (Beta Christin)) 25 mg PO DAILY [facility] Last Admin: 12/14/18 08:12 Dose: 25 mg Metoprolol Tartrate (Lopressor (Beta Christin)) 5 mg IV Q6 [facility] Last Admin: 12/14/18 05:32 Dose: Not Given Morphine Sulfate () 2 mg IV Q4H PRN PRN PRN Reason: SEVERE PAIN (6-10/10) Last Admin: 12/14/18 05:21 Dose: 2 mg Pantoprazole Sodium (Protonix) 40 mg PO DAILY [facility] Last Admin: 12/14/18 08:15 Dose: 40 mg Pramipexole Dihydrochloride (Mirapex) 0.25 mg PO TID [facility] Last Admin: 12/14/18 05:21 Dose: 0.25 mg Prednisone () 4 mg PO DAILYCM [facility] Last Admin: 12/14/18 08:15 Dose: 4 mg Sodium Chloride () 5 - 15 ml IV UD PRN PRN Reason: SALINE FLUSH Trazodone HCl (Desyrel) 150 mg PO QHS [facility] Last Admin: 12/13/18 21:57 Dose: 150 mg Venlafaxine HCl (Effexor Xr) 225 mg PO DAILY [facility] Last Admin: 12/14/18 08:13 Dose: 225 mg Medical Necessity - Tobacco Use Smoking Status: Never smoker Assessment/Plan 48-year-old female admitted through the ED with a complaint of left calf pain and swelling. 1.Left calf hematoma and acute compartment syndrome of left calf s/p emergent fasciotomy today is POD 1 left calf USG showed dno DVT but showed a hematoma LLE CT showed medial calf muscle fluid collection measuring [id number], possibly representing intramuscular hematoma had emergency fasciotomy yesterday coumadin and lovenox on hold orthopedic surgery on board on IV morphine prn on IV cefazolin 2. History of sinus tachycardia: stable. HR has been in 120s and above overnihgt. she says this is her norm. on metoprolol 25mg daily. 3. History of PE: Coumadin and lovenox on hold. had PE nine years ago; states Coumadin was continued on account of her testing positive for lupus anticoagulant. Coumadin on hold on account of hematoma. 4. History of rheumatoid arthritis on methotrexate and prednisone 5. Restless leg syndrome: on ropinirole 6. Hypertension: controlled. On metoprolol. DVT prophylaxis: SCDs. No anticoagulation for now Disposition: transfer to U Code Visit Inpatient E&M: 52404 Subs Hosp L3
--- NOTE | 2018-12-14 09:28 | PN_ITS ---
Subjective: Patient seen and examined. She is postop day 1 of emergent left lower extremity fasciotomy for hematoma and compartment syndrome. She was transferred to the ICU after surgery for closer overnight monitoring. She complains of pain in her left lower extremity though is well controlled. She denies any fever chills and admits to palpitations which she states is chronic. She denies any lightheadedness or dizziness. Review of systems otherwise negative. Labs and vitals reviewed. Vitals/I&O's: Vital Signs Temp Pulse Resp BP Pulse Ox 98.1 F 129 H 16 139/72 H 99 12/14/18 08:00 12/14/18 09:00 12/14/18 09:00 12/14/18 09:00 12/14/18 09:00 Oxygen Flow Rate (L/min) 2 Oxygen Delivery Method Nasal Cannula Weight: 353 lb 9.943 oz Body Mass Index (BMI) 55.7 Finger Stick Blood Glucose 115 Intake and Output for Last 24 Hours 12/12/18 12/13/18 12/14/18 23:59 23:59 23:59 Intake Total 1400 / 1400 3930 / 3930 Output Total 1200 / 1200 Balance 1400 / 1400 2730 / 2730 General: Alert, Oriented x3, Cooperative, HEENT: Atraumatic, PERRLA, EOMI, Normocephalic Oral: Moist Mucosa Neck: Supple, No JVD, Negative Carotid Bruits Lungs: Clear to auscultation, Normal air movement, No rhonchi, No wheeze, No rales Cardiovascular: Regular Rhythm, Normal S1, Normal S2, No murmurs, Tachycardic Abdomen: Bowel Sounds Present, Soft, Non Tender, Non-Distended, No Hepato- splenomegaly Skin: No rashes, No breakdown, - - ecchymotic patches over abdomen, from lovenox shots Musculoskeletal: - - LLE in clean bandage; dressing intact. LEft DP and PT pulse is palpable but slightly weak. Lymphatic: No Cervical, Supraclavicular, or Inguinal Adenopathy Neurological: Cranial nerves II-XII grossly intact Psych/Mental Status: Normal Affect, Appropriate, Alert and oriented to time, place, person, mood and affect Laboratory Results 12/13/18 11:00: PT 21.6 H, INR 1.9 12/13/18 11:00: WBC 9.9, RBC 4.24, Hgb 12.5, Hct 39.0, MCV 92.0, MCH 29.5, MCHC 32.1, RDW 15.4 H, RDW Differential 51.4 H, Plt Count 192, MPV 10.8, Immature Gran % (Auto) 0.400, Neut % (Auto) 61.4, Lymph % (Auto) 23.9, [place] % (Auto) 10.8 H, Eos % (Auto) 3.1, Baso % (Auto) 0.4, Absolute Neuts (auto) 6.1, Absolute Lymphs (auto) 2.37, Total Counted Not Reportable 12/13/18 11:00: Sodium 136, Potassium 4.0, Chloride 103, Carbon Dioxide 26.0, Anion Gap 7, BUN 15, Creatinine 0.97, Estim Creat Clear Calc 66.40, Est GFR (MDRD) Af Amer 79, Est GFR (MDRD) Non-Af 65, BUN/Creatinine Ratio 15.4, Glucose 113 H, Calcium 9.2 12/13/18 16:50: WBC 9.7, RBC 3.54 L, Hgb 10.4 L, Hct 32.5 L, MCV 91.8, MCH 29.4, MCHC 32.0, RDW 15.0 H, RDW Differential 50.3 H, Plt Count 268, MPV 9.9, Immature Gran % (Auto) 0.300, Neut % (Auto) 57.1, Lymph % (Auto) 29.3, [place] % (Auto) 10.7 H, Eos % (Auto) 2.2, Baso % (Auto) 0.4, Absolute Neuts (auto) 5.6, Absolute Lymphs (auto) 2.85, Total Counted Not Reportable, Differential Comment SCANNED 12/13/18 16:53: Blood Type O POSITIVE, Antibody Screen NEGATIVE 12/13/18 17:55: POC Glucose 115 H 12/14/18 03:55: WBC 10.8, RBC 2.95 L, Hgb 8.7 L, Hct 27.4 L, MCV 92.9, MCH 29.5, MCHC 31.8 L, RDW 15.1 H, RDW Differential 51.4 H, Plt Count 293, MPV 8.9, Immature Gran % (Auto) 0.600, Neut % (Auto) 78.4 H, Lymph % (Auto) 16.2 L, [place] % (Auto) 4.7, Eos % (Auto) 0.1, Baso % (Auto) 0.0, Absolute Neuts (auto) 8.5 H, Absolute Lymphs (auto) 1.75, Total Counted Not Reportable 12/14/18 03:55: Sodium 139, Potassium 4.7, Chloride 107, Carbon Dioxide 26.0, Anion Gap 6, BUN 12, Creatinine 0.65, Estim Creat Clear Calc 99.09, Est GFR (MDRD) Af Amer 124, Est GFR (MDRD) Non-Af 103, BUN/Creatinine Ratio 18.4, Glucose 135 H, Calcium 7.8 L Current Medications Hydrocodone Bitart/Acetaminophen (Lortab [Replacement] 7.5-325/15) 15 ml PO Q6H PRN PRN Reason: PAIN Last Admin: 12/14/18 08:05 Dose: 15 ml Aripiprazole (Abilify) 2 mg PO DAILY [facility] Last Admin: 12/14/18 08:12 Dose: 2 mg Bupropion HCl (Wellbutrin Xl) 300 mg PO DAILY [facility] Last Admin: 12/14/18 08:15 Dose: 300 mg Dextrose (D50w Syringe) 0 gm IV X1 PRN; Protocol PRN Reason: Hypoglycemia Famotidine (Pepcid) 20 mg PO QHS [facility] Last Admin: 12/13/18 21:57 Dose: 20 mg Ferrous Sulfate (Ferrous Sulfate) 325 mg PO DAILY@0800 [facility] Last Admin: 12/14/18 08:12 Dose: 325 mg Glucagon () 1 mg IM .X1 PRN PRN Reason: Hypoglycemia Hydroxyzine Pamoate (Vistaril Pamoate Capsule) 50 mg PO QHS PRN PRN PRN Reason: SLEEP Last Admin: 12/13/18 21:57 Dose: 50 mg Sodium Chloride () 250 mls @ 15 mls/hr IV .[id number] PRN PRN Reason: SALINE FLUSH Metoprolol Succinate (Toprol Xl (Beta Christin)) 25 mg PO DAILY [facility] Last Admin: 12/14/18 08:12 Dose: 25 mg Metoprolol Tartrate (Lopressor (Beta Christin)) 5 mg IV Q6 [facility] Last Admin: 12/14/18 05:32 Dose: Not Given Morphine Sulfate () 2 mg IV Q4H PRN PRN PRN Reason: SEVERE PAIN (6-10/10) Last Admin: 12/14/18 05:21 Dose: 2 mg Pantoprazole Sodium (Protonix) 40 mg PO DAILY [facility] Last Admin: 12/14/18 08:15 Dose: 40 mg Pramipexole Dihydrochloride (Mirapex) 0.25 mg PO TID [facility] Last Admin: 12/14/18 05:21 Dose: 0.25 mg Prednisone () 4 mg PO DAILYCM [facility] Last Admin: 12/14/18 08:15 Dose: 4 mg Sodium Chloride () 5 - 15 ml IV UD PRN PRN Reason: SALINE FLUSH Trazodone HCl (Desyrel) 150 mg PO QHS [facility] Last Admin: 12/13/18 21:57 Dose: 150 mg Venlafaxine HCl (Effexor Xr) 225 mg PO DAILY [facility] Last Admin: 12/14/18 08:13 Dose: 225 mg Medical Necessity - Tobacco Use Smoking Status: Never smoker Assessment/Plan 48-year-old female admitted through the ED with a complaint of left calf pain and swelling. 1.Left calf hematoma and acute compartment syndrome of left calf s/p emergent fasciotomy * today is POD 1 * left calf USG showed dno DVT but showed a hematoma * LLE CT showed medial calf muscle fluid collection measuring [id number], possibly representing intramuscular hematoma * had emergency fasciotomy yesterday * coumadin and lovenox on hold * orthopedic surgery on board * on IV morphine prn * on IV cefazolin * 2. History of sinus tachycardia: * stable. HR has been in 120s and above overnihgt. she says this is her norm. * on metoprolol 25mg daily. * 3. History of PE: * Coumadin and lovenox on hold. * had PE nine years ago; states Coumadin was continued on account of her testing positive for lupus anticoagulant. * Coumadin on hold on account of hematoma. * 4. History of rheumatoid arthritis * on methotrexate and prednisone * 5. Restless leg syndrome: on ropinirole 6. Hypertension: controlled. On metoprolol. DVT prophylaxis: SCDs. No anticoagulation for now Disposition: transfer to U Code Visit Inpatient E&M: [id number] [facility] Hosp L3
[2018-12-14] MEDS: Metoprolol Tartrate 5 MG/5 ML Vial IV ×2 (11:53→18:03)
--- NOTE | 2018-12-14 13:00 | PN.ORTHO_ITS ---
Subjective: Patient seen and examined complains of left leg pain but is better controlled no increased pain with flexion-extension her she is neuro intact and was monitored in the ICU overnight and had no issues per team. - Physical Exam General: Alert, Oriented x3, Cooperative HEENT: Atraumatic, PERRLA, EOMI, Normocephalic Neck: Supple, No JVD, Negative Carotid Bruits Lungs: Clear to auscultation, Normal air movement Cardiovascular: Regular rate, No murmurs Abdomen: Bowel Sounds Present, Soft, Non Tender Extremities: No edema, Capillary Refill Less than 3 Seconds Skin: No rashes, No breakdown Musculoskeletal: Tenderness - At incision site, active range of motion passive range of motion intact left lower extremity, sensation grossly intact, compartment soft, no erythema or signs of infection Neurological: Cranial nerves II-XII grossly intact Psych/Mental Status: Normal Affect, Appropriate Vital Signs Temp Pulse Resp BP Pulse Ox 98.1 F 108 H 19 H 112/58 L 99 12/14/18 08:00 12/14/18 12:00 12/14/18 12:00 12/14/18 12:00 12/14/18 09:00 Oxygen Flow Rate (L/min) 2 Oxygen Delivery Method Nasal Cannula Weight: 353 lb 9.943 oz Body Mass Index (BMI) 55.7 Finger Stick Blood Glucose 115 Intake and Output for Last 24 Hours 12/12/18 12/13/18 12/14/18 23:59 23:59 23:59 Intake Total 1400 / 1400 3930 / 3930 Output Total 1200 / 1200 Balance 1400 / 1400 2730 / 2730 Laboratory Tests Past 24 Hrs 12/13/18 12/13/18 12/13/18 11:00 11:00 16:50 WBC 9.9 9.7 RBC 4.24 3.54 L Hgb 12.5 10.4 L Hct 39.0 32.5 L MCV 92.0 91.8 MCH 29.5 29.4 MCHC 32.1 32.0 RDW 15.4 H 15.0 H RDW Differential 51.4 H 50.3 H Plt Count 192 268 MPV 10.8 9.9 Immature Gran % (Auto) 0.400 0.300 Neut % (Auto) 61.4 57.1 Lymph % (Auto) 23.9 29.3 [place] % (Auto) 10.8 H 10.7 H Eos % (Auto) 3.1 2.2 Baso % (Auto) 0.4 0.4 Absolute Neuts (auto) 6.1 5.6 Absolute Lymphs (auto) 2.37 2.85 Total Counted Not Reportable Not Reportable Differential Comment SCANNED Sodium 136 Potassium 4.0 Chloride 103 Carbon Dioxide 26.0 Anion Gap 7 BUN 15 Creatinine 0.97 Estim Creat Clear Calc 66.40 Est GFR (MDRD) Af Amer 79 Est GFR (MDRD) Non-Af 65 BUN/Creatinine Ratio 15.4 Glucose 113 H Calcium 9.2 Blood Type Antibody Screen 12/13/18 12/14/18 12/14/18 16:53 03:55 03:55 WBC 10.8 RBC 2.95 L Hgb 8.7 L Hct 27.4 L MCV 92.9 MCH 29.5 MCHC 31.8 L RDW 15.1 H RDW Differential 51.4 H Plt Count 293 MPV 8.9 Immature Gran % (Auto) 0.600 Neut % (Auto) 78.4 H Lymph % (Auto) 16.2 L [place] % (Auto) 4.7 Eos % (Auto) 0.1 Baso % (Auto) 0.0 Absolute Neuts (auto) 8.5 H Absolute Lymphs (auto) 1.75 Total Counted Not Reportable Differential Comment Sodium 139 Potassium 4.7 Chloride 107 Carbon Dioxide 26.0 Anion Gap 6 BUN 12 Creatinine 0.65 Estim Creat Clear Calc 99.09 Est GFR (MDRD) Af Amer 124 Est GFR (MDRD) Non-Af 103 BUN/Creatinine Ratio 18.4 Glucose 135 H Calcium 7.8 L Blood Type O POSITIVE Antibody Screen NEGATIVE POC Glucose 12/13/18 17:55 POC Glucose 115 H Medical Necessity - Tobacco Use Smoking Status: Never smoker Assessment/Plan c/s for left leg enlarging hematoma w compartment syndrome Postop day 1 status post fasciotomies for compartment syndrome ct vs us shows enlarging hematoma with worsening clinical picture so taken emergently to OR for fasciotomies, Continue Ancef until complete postoperative Wet to dries until bleeding decreases and then will consult wound team to place a VAC possibly on Saturday Weight-bear as tolerated left leg may need a cam boot to prevent plantarflexion and equinus contracture
[2018-12-14] MEDS: HYDROmorphone 1 MG/ML Syringe IV ×2 (14:13→22:00)
--- NOTE | 2018-12-14 15:27 | NURSING ---
report called to [facility]cu for transfer to room 103, transferred with belongings per bed
[2018-12-14] MEDS: 0.9% NaCl Peripheral Flush Adult/Peds IV ×2 (18:04→22:00)
--- NOTE | 2018-12-14 20:58 | NURSING ---
Addendum entered by Molly Lane 12/14/18 22:14: received a call back from Dr. Sawant at 2105. she states the cramping like pain in patient's lower left calf is normal for post op fasciotomies. Dr. Sawant had me perform a couple leg/foot exercises on patient and since she did not scream out in excruciating pain, she said she is not super concerned about a secondary compartment syndrome and that she would like me to just keep an eye on the leg throughout the night. She mentioned that if I had concerns about the leg and felt that something did not seem right, I could always take a clinical picture and kortex it to her and she would be happy to come in and assess the patient. If not, she stated she would be in early in the morning to see the patient. Dr. Sawant gave some new orders for pain medicine and stated she would like me to give 1 mg of IV dilaudid before the dressing change and change the dressing around 2200 this evening. will continue to monitor and follow new orders. Original Note: called Dr. Sawant and left a voicemail per patient's request about the cramping like pain in her LL calf. will await a return phone call.
[2018-12-14] MEDS: traZODone 50 MG Tablet 150 MG PO (21:11)
[2018-12-14] MEDS: Famotidine 20 MG Tablet PO (21:11)
[2018-12-14] MEDS: hydrOXYzine PAM 25 MG Capsule 50 MG PO (22:36)
--- NOTE | 2018-12-14 23:57 | NURSING ---
per patient, she only wants information given out to her mother Jasmin Wise.
[2018-12-15] VITALS (22 sets, daily range): BP systolic 93–152; BP diastolic 40–79; PULSE 104–118; RESP 14–20; TEMP 36.6–37.5; O2SAT 92–98
[2018-12-15] MEDS: 0.9% NaCl Peripheral Flush Adult/Peds IV ×6 (01:46→21:30)
[2018-12-15] MEDS: Morphine 2 MG/ML Syringe IV ×3 (01:46→17:33)
[2018-12-15 05:47] LABS: Absolute Lymphocyte Count 3.89 X10^3/ul (0.83-4.51); Absolute Neutrophil Count 6.6 X10^3/uL (2.0-7.7); Basophil# 0.02 X10^3/uL; Basophil% 0.2 % (0-1); Eosinophil# 0.13 X10^3/uL; Eosinophils% 1.1 % (0-5); Hematocrit 21.7 % (37-47); Hemoglobin 6.7 g/dl (12.0-15.0); Lymphocyte # 3.89 X10^3/ul (4.0); Lymphocyte % 32.1 % (19-41); Mean Corp Hgb Conc 30.9 g/gl (32-36); Mean Corpuscular Hgb 29.3 pg (27.0-32.0); Mean Corpuscular Volume 94.8 fL (81-99); Mean Platelet Vol. 9.5 fl (6.2-12.0); Monocyte# 1.35 X10^3/uL; Monocyte% 11.2 % (0-10); Neutrophil # 6.62 X10^3/uL (2.7-7.7); Neutrophil % 54.7 % (47-70); Platelet Count 287 K/mm3 (150-450); RBC Distribution Width SD 48.4 fl (35.1-43.9); Red Blood Count 2.29 M/mm3 (4.2-5.4); White Blood Count 12.1 K/mm3 (4.4-11.0)
[2018-12-15 06:07] LABS: POSITIVE COUNT NO; POSITIVE DIFFERENTIAL NO; POSITIVE MORPHOLOGY NO
[2018-12-15] MEDS: Pramipexole Di-HCl 0.25 MG Tablet PO ×3 (06:36→21:49)
--- NOTE | 2018-12-15 08:08 | PCM.PN.ORT ---
Patient Problems: Active and Suspected Problems Hematoma (Acute) Compartment syndrome of left lower extremity (Acute) Subjective: Patient seen and examined at bedside today. Patient complains of posterior calf pain behind knee -no numbness tingling she is able to move her ankle with less pain however pain more localized behind the knee itself. Denies fever chills shortness of breath or other constitutional symptoms. Has not been up or out of bed states the wet-to-dry changes for her wound/incisions are painful. - Physical Exam General: Alert, Oriented x3, Cooperative HEENT: Atraumatic, PERRLA, EOMI, Normocephalic Neck: Supple, No JVD, Negative Carotid Bruits Lungs: Clear to auscultation, Normal air movement Cardiovascular: Regular rate, No murmurs Abdomen: Bowel Sounds Present, Soft, Non Tender Extremities: No edema, Capillary Refill Less than 3 Seconds Skin: No rashes, No breakdown Musculoskeletal: Tenderness - at incision sites, neg homans, compts soft, sgi, <2 s cr, nvi Neurological: Cranial nerves II-XII grossly intact Psych/Mental Status: Normal Affect, Appropriate Vital Signs Temp Pulse Resp BP Pulse Ox 98.4 F 115 H 18 93/65 98 12/15/18 02:50 12/15/18 06:33 12/15/18 02:50 12/15/18 02:50 12/15/18 02:50 Oxygen Flow Rate (L/min) 2 Oxygen Delivery Method Room Air Weight: 350 lb 5.032 oz Body Mass Index (BMI) 55.7 Finger Stick Blood Glucose 115 Intake and Output for Last 24 Hours 12/13/18 12/14/18 12/15/18 23:59 23:59 23:59 Intake Total 1400 / 1400 5330 / 5330 100 / 100 Output Total 1999 Balance 1400 / 1400 3330 / 3330 100 / 100 Laboratory Tests Past 24 Hrs 12/13/18 12/15/18 16:50 05:10 WBC 12.1 H RBC 2.29 L Hgb 6.7 L Hct 21.7 L MCV 94.8 MCH 29.3 MCHC 30.9 L RDW 15.0 H RDW Differential 48.4 H Plt Count 287 MPV 9.5 Immature Gran % (Auto) 0.700 Neut % (Auto) 54.7 Lymph % (Auto) 32.1 [place] % (Auto) 11.2 H Eos % (Auto) 1.1 Baso % (Auto) 0.2 Absolute Neuts (auto) 6.6 Absolute Lymphs (auto) 3.89 Total Counted Not Reportable Crossmatch See Detail Medical Necessity - Tobacco Use Smoking Status: Never smoker Assessment/Plan All Active Problems Hematoma (Acute) Compartment syndrome of left lower extremity (Acute) c/s for left leg enlarging hematoma w compartment syndrome Postop day 2 status post fasciotomies for compartment syndrome Wet to dries until bleeding decreases and then will consult wound team to place a VAC possibly on Saturday Weight-bear as tolerated left leg cam boot to prevent plantarflexion and equinus contracture patient dropped hb and elevated wbc ; blood cultures pending, patient with recent history of pneumonia/sepsis pain proximally behind knee- would recommend doppler us of left leg to r/o dvt t&C 2 units, pending left leg no signs of infection but bleeding with wet to dry dressing changes, would recomend plastics consult to see if incision can be closed - recheck pt/ptt/inr d/w hospitalist above
[2018-12-15 09:18] LABS: International Normalized Ratio 1.2; Prothrombin Time (Protime)PT. 14.6 SECONDS (11.7-14.9)
[2018-12-15 09:19] LABS: Partial Thromboplast Time 28.7 Seconds (24.1-36.2)
--- NOTE | 2018-12-15 09:27 | VDLE_ITS ---
Reason For Study: Pain Procedure LEFT Exam performed portable in patient room. CFV is compressible, spontaneous, phasic, Limited views were obtained. competent, and demonstrates normal A preliminary report was called and/or faxed augmentation. to PCU Nurse. FV is compressible, spontaneous, phasic, competent and demonstrates normal augmentation. POP V is compressible, spontaneous, phasic, competent and demonstrates normal augmentation. T/P Trunk is compressible. Unable to visualize PTV and PeroV due to bandages post fasciectomy for compartment syndrome. GSV is normal. Interpretation Summary There is no evidence of left lower extremity deep vein thrombosis. Left greater saphenous vein appears patent and compressible segmentally. Limited exam: unable to visualize the left posterior tibial and peroneal veins Ordering Physician: Kendal Cameron Referring Physician: Tarah Dubon Performed By: Charity Wren RVT
[2018-12-15] MEDS: HYDROmorphone 1 MG/ML Syringe IV ×2 (09:29→21:28)
[2018-12-15] MEDS: predniSONE 1 MG Tablet 4 MG PO (09:37)
[2018-12-15] MEDS: Venlafaxine XR 75 MG Capsule 225 MG PO (09:37)
[2018-12-15] MEDS: Metoprolol(XL)Succ 25 MG Tablet PO (09:37)
[2018-12-15] MEDS: Ferrous Sulfate 325 MG Tablet PO (09:37)
[2018-12-15] MEDS: Pantoprazole Sodium 40 MG Tablet PO (09:38)
[2018-12-15] MEDS: ARIPiprazole 2 MG Tablet PO (09:38)
[2018-12-15] MEDS: buPROPion (XL) 300 MG TABLET.XL PO (09:39)
--- NOTE | 2018-12-15 10:51 | PCM.PN.HOSP ---
Subjective: Patient seen and examined. She is complaining of pain in the left lower extremity and especially at the back of her left knee. She also states it just feels uncomfortable which may be due to the bed that she is in. She denies any lightheadedness or dizziness, palpitations or chest pain, diarrhea vomiting. Hemoglobin noted to have dropped to 6.7 today. She is to be transfused 2 units of packed red blood cells. She has remained tachycardic which she states is her baseline. Vitals/I&O's: Vital Signs Temp Pulse Resp BP Pulse Ox 99.5 F H 115 H 20 H 111/46 L 94 12/15/18 08:50 12/15/18 09:37 12/15/18 08:50 12/15/18 08:50 12/15/18 08:50 Oxygen Flow Rate (L/min) 2 Oxygen Delivery Method Room Air Weight: 350 lb 5.032 oz Body Mass Index (BMI) 55.7 Finger Stick Blood Glucose 115 Intake and Output for Last 24 Hours 12/13/18 12/14/18 12/15/18 23:59 23:59 23:59 Intake Total 1400 / 1400 5330 / 5330 100 / 100 Output Total 1999 / 1999 Balance 1400 / 1400 3330 / 3330 100 / 100 General: Alert, Oriented x3, Cooperative, HEENT: Atraumatic, PERRLA, EOMI, Normocephalic Oral: Moist Mucosa Neck: Supple, No JVD, Negative Carotid Bruits Lungs: Clear to auscultation, Normal air movement, No rhonchi, No wheeze, No rales Cardiovascular: Regular Rhythm, Normal S1, Normal S2, No murmurs, Tachycardic Abdomen: Bowel Sounds Present, Soft, Non Tender, Non-Distended, No Hepato-splenomegaly Skin: No rashes, No breakdown, - - ecchymotic patches over abdomen, from lovenox shots Musculoskeletal: - - LLE in clean bandage; dressing intact. LEft DP and PT pulse is palpable but slightly weak. Lymphatic: No Cervical, Supraclavicular, or Inguinal Adenopathy Neurological: Cranial nerves II-XII grossly intact Psych/Mental Status: Normal Affect, Appropriate, Alert and oriented to time, place, person, mood and affect Laboratory Results 12/13/18 16:50: Crossmatch See Detail 05/27/19 05:10: WBC 12.1 H, RBC 2.29 L, Hgb 6.7 L, Hct 21.7 L, MCV 94.8, MCH 29.3, MCHC 30.9 L, RDW 15.0 H, RDW Differential 48.4 H, Plt Count 287, MPV 9.5, Immature Gran % (Auto) 0.700, Neut % (Auto) 54.7, Lymph % (Auto) 32.1, [place] % (Auto) 11.2 H, Eos % (Auto) 1.1, Baso % (Auto) 0.2, Absolute Neuts (auto) 6.6, Absolute Lymphs (auto) 3.89, Total Counted Not Reportable 12/15/18 05:10: PT 14.6, INR 1.2, APTT 28.7 Diagnostic Data Lower Extremity CT 12/13/18 12:51 IMPRESSION: Medial calf muscle fluid collection measuring 13.5 x 6.3 x 3 cm in size, possibly representing an intramuscular hematoma, although abscess is a consideration in appropriate clinical context. Clinical assessment is recommended, with recommendation to assessment to exclude compartment syndrome. No fracture or dislocation. Electronically Signed: Eric Arnold, at 14:00 EDT Tel , Service support , ADDENDUM: 12/13/18 1425 IMPRESSION: Medial calf muscle fluid collection measuring 13.5 x 6.3 x 3 cm in size, possibly representing an intramuscular hematoma, although abscess is a consideration in appropriate clinical context. Clinical assessment is recommended, with recommendation to assessment to exclude compartment syndrome. No fracture or dislocation. N.B. : The above information has been verbally conveyed by Eric Arnold to [phone], on 12/13/2018 14:18:36 (ET). Electronically Signed: Eric Arnold, at 14:00 EDT Tel , Service support , Current Medications Hydrocodone Bitart/Acetaminophen (Lortab [Replacement] 7.5-325/15) 15 ml PO Q6H PRN PRN Reason: PAIN Last Admin: 12/14/18 08:05 Dose: 15 ml Aripiprazole (Abilify) 2 mg PO DAILY [facility] Last Admin: 12/15/18 09:38 Dose: 2 mg Bupropion HCl (Wellbutrin Xl) 300 mg PO DAILY [facility] Last Admin: 12/15/18 09:39 Dose: 300 mg Dextrose (D50w Syringe) 0 gm IV X1 PRN; Protocol PRN Reason: Hypoglycemia Famotidine (Pepcid) 20 mg PO QHS [facility] Last Admin: 12/14/18 21:11 Dose: 20 mg Ferrous Sulfate (Ferrous Sulfate) 325 mg PO DAILY@0800 [facility] Last Admin: 12/15/18 09:37 Dose: 325 mg Glucagon () 1 mg IM .X1 PRN PRN Reason: Hypoglycemia Hydromorphone HCl (Dilaudid Inj) 1 mg IV Q6H PRN PRN PRN Reason: SEVERE PAIN (6-10/10) Last Admin: 12/15/18 09:29 Dose: 1 mg Hydroxyzine Pamoate (Vistaril Pamoate Capsule) 50 mg PO QHS PRN PRN PRN Reason: SLEEP Last Admin: 12/14/18 22:36 Dose: 50 mg Sodium Chloride () 250 mls @ 15 mls/hr IV .[id number] PRN PRN Reason: SALINE FLUSH Metoprolol Succinate (Toprol Xl (Beta Christin)) 25 mg PO DAILY [facility] Last Admin: 12/15/18 09:37 Dose: 25 mg Metoprolol Tartrate (Lopressor (Beta Christin)) 5 mg IV Q6 [facility] Last Admin: 12/15/18 06:33 Dose: Not Given Morphine Sulfate () 2 mg IV Q4H PRN PRN PRN Reason: SEVERE PAIN (6-10/10) Last Admin: 12/15/18 01:46 Dose: 2 mg Pantoprazole Sodium (Protonix) 40 mg PO DAILY [facility] Last Admin: 12/15/18 09:38 Dose: 40 mg Pramipexole Dihydrochloride (Mirapex) 0.25 mg PO TID [facility] Last Admin: 12/15/18 06:36 Dose: 0.25 mg [facility] () [facility] Admin: 12/15/18 09:37 Dose: 4 mg Sodium Chloride () 5 - 15 ml IV UD PRN PRN Reason: SALINE FLUSH Last Admin: 12/15/18 09:29 Dose: 10 ml Trazodone HCl (Desyrel) 150 mg PO QHS [facility] Last Admin: 12/14/18 21:11 Dose: 150 mg Venlafaxine HCl (Effexor Xr) 225 mg PO DAILY [facility] Last Admin: 12/15/18 09:37 Dose: 225 mg Medical Necessity - Tobacco Use Smoking Status: Never smoker Assessment/Plan 48-year-old female admitted through the ED with a complaint of left calf pain and swelling. 1.Left calf hematoma and acute compartment syndrome of left calf s/p emergent fasciotomy today is POD 2 coumadin and lovenox on hold HB dropped to 6.7, due to bleeding from calf will transfuse 2 units of pRBCs INR today is 1.2, and apTT is 28.7, which are both normal orthopedic surgery on board on IV morphine prn on IV cefazolin will order duplex of LE due to pain and speak to general surgery about possible filter based on Duplex results continue hydrating with IVF 2. History of sinus tachycardia: stable. HR has been in 120s and above overnihgt. she says this is her norm. on metoprolol 25mg daily. 3. Acute on chronic anemia due to acute blood loss from hematoma as under 1. transfuse 2 units of PRBCs 4. History of PE: Coumadin and lovenox on hold. had PE nine years ago; states Coumadin was continued on account of her testing positive for lupus anticoagulant. Coumadin on hold on account of hematoma. 5. History of rheumatoid arthritis on methotrexate and prednisone 6. Restless leg syndrome: on ropinirole 7. Hypertension: controlled. On metoprolol. DVT prophylaxis: SCDs. No anticoagulation for now Code Visit Inpatient E&M: 81951 [facility] H[facility] L3
--- NOTE | 2018-12-15 10:56 | PN_ITS ---
Subjective: Patient seen and examined. She is complaining of pain in the left lower extremity and especially at the back of her left knee. She also states it just feels uncomfortable which may be due to the bed that she is in. She denies any lightheadedness or dizziness, palpitations or chest pain, diarrhea vomiting. Hemoglobin noted to have dropped to 6.7 today. She is to be transfused 2 units of packed red blood cells. She has remained tachycardic which she states is her baseline. Vitals/I&O's: Vital Signs Temp Pulse Resp BP Pulse Ox 99.5 F H 115 H 20 H 111/46 L 94 12/15/18 08:50 12/15/18 09:37 12/15/18 08:50 12/15/18 08:50 12/15/18 08:50 Oxygen Flow Rate (L/min) 2 Oxygen Delivery Method Room Air Weight: 350 lb 5.032 oz Body Mass Index (BMI) 55.7 Finger Stick Blood Glucose 115 Intake and Output for Last 24 Hours 12/13/18 12/14/18 12/15/18 23:59 23:59 23:59 Intake Total 1400 / 1400 5330 / 5330 100 / 100 Output Total 1999 / 1999 Balance 1400 / 1400 3330 / 3330 100 / 100 General: Alert, Oriented x3, Cooperative, HEENT: Atraumatic, PERRLA, EOMI, Normocephalic Oral: Moist Mucosa Neck: Supple, No JVD, Negative Carotid Bruits Lungs: Clear to auscultation, Normal air movement, No rhonchi, No wheeze, No rales Cardiovascular: Regular Rhythm, Normal S1, Normal S2, No murmurs, Tachycardic Abdomen: Bowel Sounds Present, Soft, Non Tender, Non-Distended, No Hepato- splenomegaly Skin: No rashes, No breakdown, - - ecchymotic patches over abdomen, from lovenox shots Musculoskeletal: - - LLE in clean bandage; dressing intact. LEft DP and PT pulse is palpable but slightly weak. Lymphatic: No Cervical, Supraclavicular, or Inguinal Adenopathy Neurological: Cranial nerves II-XII grossly intact Psych/Mental Status: Normal Affect, Appropriate, Alert and oriented to time, place, person, mood and affect Laboratory Results 12/13/18 16:50: Crossmatch See Detail 05/27/19 05:10: WBC 12.1 H, RBC 2.29 L, Hgb 6.7 L, Hct 21.7 L, MCV 94.8, MCH 29.3, MCHC 30.9 L, RDW 15.0 H, RDW Differential 48.4 H, Plt Count 287, MPV 9.5, Immature Gran % (Auto) 0.700, Neut % (Auto) 54.7, Lymph % (Auto) 32.1, [place] % (Auto) 11.2 H, Eos % (Auto) 1.1, Baso % (Auto) 0.2, Absolute Neuts (auto) 6.6, Absolute Lymphs (auto) 3.89, Total Counted Not Reportable 12/15/18 05:10: PT 14.6, INR 1.2, APTT 28.7 Diagnostic Data Lower Extremity CT 12/13/18 12:51 IMPRESSION: Medial calf muscle fluid collection measuring 13.5 x 6.3 x 3 cm in size, possibly representing an intramuscular hematoma, although abscess is a consideration in appropriate clinical context. Clinical assessment is recommended, with recommendation to assessment to exclude compartment syndrome. No fracture or dislocation. Electronically Signed: Eric Arnold, at 14:00 EDT Tel , Service support , ADDENDUM: 12/13/18 1425 IMPRESSION: Medial calf muscle fluid collection measuring 13.5 x 6.3 x 3 cm in size, possibly representing an intramuscular hematoma, although abscess is a consideration in appropriate clinical context. Clinical assessment is recommended, with recommendation to assessment to exclude compartment syndrome. No fracture or dislocation. N.B. : The above information has been verbally conveyed by Eric Arnold to [phone], on 12/13/2018 14:18:36 (ET). Electronically Signed: Eric Arnold, at 14:00 EDT Tel , Service support , Current Medications Hydrocodone Bitart/Acetaminophen (Lortab [Replacement] 7.5-325/15) 15 ml PO Q6H PRN PRN Reason: PAIN Last Admin: 12/14/18 08:05 Dose: 15 ml Aripiprazole (Abilify) 2 mg PO DAILY [facility] Last Admin: 12/15/18 09:38 Dose: 2 mg Bupropion HCl (Wellbutrin Xl) 300 mg PO DAILY [facility] Last Admin: 12/15/18 09:39 Dose: 300 mg Dextrose (D50w Syringe) 0 gm IV X1 PRN; Protocol PRN Reason: Hypoglycemia Famotidine (Pepcid) 20 mg PO QHS [facility] Last Admin: 12/14/18 21:11 Dose: 20 mg Ferrous Sulfate (Ferrous Sulfate) 325 mg PO DAILY@0800 [facility] Last Admin: 12/15/18 09:37 Dose: 325 mg Glucagon () 1 mg IM .X1 PRN PRN Reason: Hypoglycemia Hydromorphone HCl (Dilaudid Inj) 1 mg IV Q6H PRN PRN PRN Reason: SEVERE PAIN (6-10/10) Last Admin: 12/15/18 09:29 Dose: 1 mg Hydroxyzine Pamoate (Vistaril Pamoate Capsule) 50 mg PO QHS PRN PRN PRN Reason: SLEEP Last Admin: 12/14/18 22:36 Dose: 50 mg Sodium Chloride () 250 mls @ 15 mls/hr IV .[id number] PRN PRN Reason: SALINE FLUSH Metoprolol Succinate (Toprol Xl (Beta Christin)) 25 mg PO DAILY [facility] Last Admin: 12/15/18 09:37 Dose: 25 mg Metoprolol Tartrate (Lopressor (Beta Christin)) 5 mg IV Q6 [facility] Last Admin: 12/15/18 06:33 Dose: Not Given Morphine Sulfate () 2 mg IV Q4H PRN PRN PRN Reason: SEVERE PAIN (6-10/10) Last Admin: 12/15/18 01:46 Dose: 2 mg Pantoprazole Sodium (Protonix) 40 mg PO DAILY [facility] Last Admin: 12/15/18 09:38 Dose: 40 mg Pramipexole Dihydrochloride (Mirapex) 0.25 mg PO TID [facility] Last Admin: 12/15/18 06:36 Dose: 0.25 mg [facility] Admin: 12/15/18 09:37 Dose: 4 mg Sodium Chloride () 5 - 15 ml IV UD PRN PRN Reason: SALINE FLUSH Last Admin: 12/15/18 09:29 Dose: 10 ml Trazodone HCl (Desyrel) 150 mg PO QHS [facility] Last Admin: 12/14/18 21:11 Dose: 150 mg Venlafaxine HCl (Effexor Xr) 225 mg PO DAILY [facility] Last Admin: 12/15/18 09:37 Dose: 225 mg Medical Necessity - Tobacco Use Smoking Status: Never smoker Assessment/Plan 48-year-old female admitted through the ED with a complaint of left calf pain and swelling. 1.Left calf hematoma and acute compartment syndrome of left calf s/p emergent fasciotomy * today is POD 2 * coumadin and lovenox on hold * HB dropped to 6.7, due to bleeding from calf * will transfuse 2 units of pRBCs * INR today is 1.2, and apTT is 28.7, which are both normal * orthopedic surgery on board * on IV morphine prn * on IV cefazolin * will order duplex of LE due to pain and speak to general surgery about possible filter based on Duplex results * continue hydrating with IVF * 2. History of sinus tachycardia: * stable. HR has been in 120s and above overnihgt. she says this is her norm. * on metoprolol 25mg daily. * 3. Acute on chronic anemia due to acute blood loss from hematoma * as under 1. * transfuse 2 units of PRBCs 4. History of PE: * Coumadin and lovenox on hold. * had PE nine years ago; states Coumadin was continued on account of her testing positive for lupus anticoagulant. * Coumadin on hold on account of hematoma. * 5. History of rheumatoid arthritis * on methotrexate and prednisone * 6. Restless leg syndrome: on ropinirole 7. Hypertension: controlled. On metoprolol. DVT prophylaxis: SCDs. No anticoagulation for now Code Visit Inpatient E&M: 99518 [facility] H[facility] L3
[2018-12-15] MEDS: 0.9% Normal Saline 1,000 ML 150 ML IV (21:27)
[2018-12-15] MEDS: traZODone 50 MG Tablet 150 MG PO (21:49)
[2018-12-15] MEDS: Famotidine 20 MG Tablet PO (21:50)
[2018-12-15] MEDS: hydrOXYzine PAM 25 MG Capsule 50 MG PO (21:54)
[2018-12-16] VITALS (12 sets, daily range): BP systolic 98–148; BP diastolic 41–79; PULSE 100–109; RESP 16–20; TEMP 36.6–37.2; O2SAT 92–98
[2018-12-16] MEDS: 0.9% Normal Saline 1,000 ML 150 ML IV (03:35)
[2018-12-16] MEDS: Morphine 2 MG/ML Syringe IV ×4 (03:43→21:43)
[2018-12-16] MEDS: 0.9% NaCl Peripheral Flush Adult/Peds IV ×6 (03:44→21:46)
[2018-12-16] MEDS: Pramipexole Di-HCl 0.25 MG Tablet PO ×3 (06:02→21:41)
[2018-12-16 06:50] LABS: Absolute Lymphocyte Count 3.06 X10^3/ul (0.83-4.51); Absolute Neutrophil Count 5.7 X10^3/uL (2.0-7.7); Basophil# 0.05 X10^3/uL; Basophil% 0.5 % (0-1); Eosinophil# 0.14 X10^3/uL; Eosinophils% 1.4 % (0-5); Hematocrit 23.3 % (37-47); Hemoglobin 7.6 g/dl (12.0-15.0); Lymphocyte # 3.06 X10^3/ul (4.0); Lymphocyte % 30.8 % (19-41); Mean Corp Hgb Conc 32.6 g/gl (32-36); Mean Corpuscular Hgb 29.9 pg (27.0-32.0); Mean Corpuscular Volume 91.7 fL (81-99); Mean Platelet Vol. 9.7 fl (6.2-12.0); Monocyte# 0.96 X10^3/uL; Monocyte% 9.7 % (0-10); Neutrophil # 5.68 X10^3/uL (2.7-7.7); Neutrophil % 57.3 % (47-70); Platelet Count 226 K/mm3 (150-450); RBC Distribution Width CV 16.2 % (11.6-14.6); RBC Distribution Width SD 53.3 fl (35.1-43.9); Red Blood Count 2.54 M/mm3 (4.2-5.4); White Blood Count 9.9 K/mm3 (4.4-11.0)
[2018-12-16 06:52] LABS: POSITIVE COUNT NO; POSITIVE DIFFERENTIAL NO; POSITIVE MORPHOLOGY NO
[2018-12-16 06:53] LABS: Absolute Nucleated RBC Count 0.13 10^3/uL (0-5); NRBC Flagged by Analyzer 1.3 % (0-5)
[2018-12-16 07:10] LABS: Anion Gap 6 (5-15); BUN 9 mg/dL (7-18); BUN/Creat Ratio 14.8 RATIO (10-20); Calcium,Total 7.9 mg/dL (8.5-10.1); Chloride 108 mmol/L (98-107); Creatinine, Serum 0.61 mg/dL (0.55-1.02); EST Glomerular Filtration Rate 112 mL/min (>60); Est Glom Filt Rate - Afr Amer 135 mL/min (>60); Estimated Creatinine Clearance 105.58 ml/min; Glucose 88 mg/dL (74-106); Potassium 3.8 mmol/L (3.5-5.1); Sodium Level 145 mmol/L (136-145)
[2018-12-16] MEDS: predniSONE 1 MG Tablet 4 MG PO (09:22)
[2018-12-16] MEDS: Metoprolol(XL)Succ 25 MG Tablet PO (09:23)
[2018-12-16] MEDS: Venlafaxine XR 75 MG Capsule 225 MG PO (09:23)
[2018-12-16] MEDS: Pantoprazole Sodium 40 MG Tablet PO (09:23)
[2018-12-16] MEDS: ARIPiprazole 2 MG Tablet PO (09:23)
[2018-12-16] MEDS: buPROPion (XL) 300 MG TABLET.XL PO (09:23)
[2018-12-16] MEDS: Ferrous Sulfate 325 MG Tablet PO (09:23)
--- NOTE | 2018-12-16 10:32 | PCM.PN.HOSP ---
Subjective: Patient seen and examined. She complains of feeling very uncomfortable because of the bed. She has not had any bleeding from her leg but she is aware of. SHe received 2 units of PRBCs yesterday. She denies any fever, chills, palpitations, dizziness, chest pain, palpitations, cough, diarrhea or vomiting. REview of systems is otherwise negative. Labs and vitals reviewed. Vitals/I&O's: Vital Signs Temp Pulse Resp BP Pulse Ox 98.5 F 100 18 124/79 H 93 12/16/18 08:35 12/16/18 09:23 12/16/18 08:35 12/16/18 08:35 12/16/18 08:35 Oxygen Flow Rate (L/min) 2 Oxygen Delivery Method Room Air Weight: 350 lb 1.505 oz Body Mass Index (BMI) 55.7 Finger Stick Blood Glucose 115 Intake and Output for Last 24 Hours 12/14/18 12/15/18 12/16/18 23:59 23:59 23:59 Intake Total 5330 / 5330 2010 900 / 900 Output Total 1999 Balance 3330 / 3330 2010 900 / 900 General: Alert, Oriented x3, Cooperative, HEENT: Atraumatic, PERRLA, EOMI, Normocephalic Oral: Moist Mucosa Neck: Supple, No JVD, Negative Carotid Bruits Lungs: Clear to auscultation, Normal air movement, No rhonchi, No wheeze, No rales Cardiovascular: Regular Rhythm, Normal S1, Normal S2, No murmurs, Tachycardic Abdomen: Bowel Sounds Present, Soft, Non Tender, Non-Distended, No Hepato-splenomegaly Skin: No rashes, No breakdown, - - ecchymotic patches over abdomen, from lovenox shots Musculoskeletal: - - LLE in clean bandage; dressing intact. LEft DP and PT pulse palpable Lymphatic: No Cervical, Supraclavicular, or Inguinal Adenopathy Neurological: Cranial nerves II-XII grossly intact Psych/Mental Status: Normal Affect, Appropriate, Alert and oriented to time, place, person, mood and affect Laboratory Results 12/13/18 16:50: Crossmatch See Detail 12/16/18 05:48: WBC 9.9, RBC 2.54 L, Hgb 7.6 L, Hct 23.3 L, MCV 91.7, MCH 29.9, MCHC 32.6, RDW 16.2 H, RDW Differential 53.3 H, Plt Count 226, MPV 9.7, Immature Gran % (Auto) 0.300, Neut % (Auto) 57.3, Lymph % (Auto) 30.8, [place] % (Auto) 9.7, Eos % (Auto) 1.4, Baso % (Auto) 0.5, Absolute Neuts (auto) 5.7, Absolute Lymphs (auto) 3.06, Total Counted Not Reportable, Nucleated RBC % 1.3, Diff Path Review May foll, Absolute Retic 0.13 12/16/18 05:48: Sodium 145, Potassium 3.8, Chloride 108 H, Carbon Dioxide 31.0, Anion Gap 6, BUN 9, Creatinine 0.61, Estim Creat Clear Calc 105.58, Est GFR (MDRD) Af Amer 135, Est GFR (MDRD) Non-Af 112, BUN/Creatinine Ratio 14.8, Glucose 88, Calcium 7.9 L Diagnostic Data Lower Extremity CT 12/13/18 12:51 IMPRESSION: Medial calf muscle fluid collection measuring 13.5 x 6.3 x 3 cm in size, possibly representing an intramuscular hematoma, although abscess is a consideration in appropriate clinical context. Clinical assessment is recommended, with recommendation to assessment to exclude compartment syndrome. No fracture or dislocation. Electronically Signed: Eric Arnold, at 14:00 EDT Tel , Service support , ADDENDUM: 12/13/18 1420 IMPRESSION: Medial calf muscle fluid collection measuring 13.5 x 6.3 x 3 cm in size, possibly representing an intramuscular hematoma, although abscess is a consideration in appropriate clinical context. Clinical assessment is recommended, with recommendation to assessment to exclude compartment syndrome. No fracture or dislocation. N.B. : The above information has been verbally conveyed by Eric Arnold to [phone], on 12/13/2018 14:18:36 (ET). Electronically Signed: Eric Arnold, at 14:00 EDT Tel , Service support , Current Medications Hydrocodone Bitart/Acetaminophen (Lortab [Replacement] 7.5-325/15) 15 ml PO Q6H PRN PRN Reason: PAIN Last Admin: 12/14/18 08:05 Dose: 15 ml Aripiprazole (Abilify) 2 mg PO DAILY [facility] Last Admin: 12/16/18 09:23 Dose: 2 mg Bupropion HCl (Wellbutrin Xl) 300 mg PO DAILY [facility] Last Admin: 12/16/18 09:23 Dose: 300 mg Dextrose (D50w Syringe) 0 gm IV X1 PRN; Protocol PRN Reason: Hypoglycemia Famotidine (Pepcid) 20 mg PO QHS [facility] Last Admin: 12/15/18 21:50 Dose: 20 mg Ferrous Sulfate (Ferrous Sulfate) 325 mg PO DAILY@0800 [facility] Last Admin: 12/16/18 09:23 Dose: 325 mg Glucagon () 1 mg IM .X1 PRN PRN Reason: Hypoglycemia Hydromorphone HCl (Dilaudid Inj) 1 mg IV Q6H PRN PRN PRN Reason: SEVERE PAIN (6-10/10) Last Admin: 12/15/18 21:28 Dose: 1 mg Hydroxyzine Pamoate (Vistaril Pamoate Capsule) 50 mg PO QHS PRN PRN PRN Reason: SLEEP Last Admin: 12/15/18 21:54 Dose: 50 mg Sodium Chloride () 250 mls @ 15 mls/hr IV .[id number] PRN PRN Reason: SALINE FLUSH Metoprolol Succinate (Toprol Xl (Beta Christin)) 25 mg PO DAILY [facility] Last Admin: 12/16/18 09:23 Dose: 25 mg Metoprolol Tartrate (Lopressor (Beta Christin)) 5 mg IV Q6 [facility] Last Admin: 12/16/18 06:02 Dose: Not Given Morphine Sulfate () 2 mg IV Q4H PRN PRN PRN Reason: SEVERE PAIN (6-10/10) Last Admin: 12/16/18 03:43 Dose: 2 mg Pantoprazole Sodium (Protonix) 40 mg PO DAILY [facility] Last Admin: 12/16/18 09:23 Dose: 40 mg Pramipexole Dihydrochloride (Mirapex) 0.25 mg PO TID [facility] Last Admin: 12/16/18 06:02 Dose: 0.25 mg Prednisone () 4 mg PO DAILYCM [facility] Last Admin: 12/16/18 09:22 Dose: 4 mg Sodium Chloride () 5 - 15 ml IV UD PRN PRN Reason: SALINE FLUSH Last Admin: 12/16/18 03:44 Dose: 5 ml Trazodone HCl (Desyrel) 150 mg PO QHS [facility] Last Admin: 12/15/18 21:49 Dose: 150 mg Venlafaxine HCl (Effexor Xr) 225 mg PO DAILY [facility] Last Admin: 12/16/18 09:23 Dose: 225 mg Medical Necessity - Tobacco Use Smoking Status: Never smoker Assessment/Plan 48-year-old female admitted through the ED with a complaint of left calf pain and swelling. 1.Left calf hematoma and acute compartment syndrome of left calf s/p emergent fasciotomy today is POD 2 3 coumadin and lovenox on hold s/p transfusion of 2 units of PRBCs; INR and apTT after surgery were WNL, therefore likely not contributing to blood loss duplex of LE was negative for DVT. will transfuse 2 units of pRBCs INR today is 1.2, and apTT is 28.7, which are both normal orthopedic surgery on board on IV morphine prn on IV cefazolin 2. History of sinus tachycardia: stable. HR has improved and is down to 100 this morning on metoprolol 25mg daily. 3. Acute on chronic anemia due to acute blood loss from hematoma as under 1. s/p transfusion of 2 units of PRBCs Hb today is 7.6 will monitor 4. History of PE: Coumadin and lovenox on hold. had PE nine years ago; states Coumadin was continued on account of her testing positive for lupus anticoagulant. Coumadin on hold on account of hematoma. 5. History of rheumatoid arthritis on methotrexate and prednisone 6. Restless leg syndrome: on ropinirole 7. Hypertension: controlled. On metoprolol. 8. Super morbid obesity: BMI is 56. complicates care, management and prognosis. DVT prophylaxis: SCDs. No anticoagulation for now Code Visit Inpatient E&M: 51866 [facility] Hosp L3
--- NOTE | 2018-12-16 10:39 | PN_ITS ---
Subjective: Patient seen and examined. She complains of feeling very uncomfortable because of the bed. She has not had any bleeding from her leg but she is aware of. SHe received 2 units of PRBCs yesterday. She denies any fever, chills, palpitations, dizziness, chest pain, palpitations, cough, diarrhea or vomiting. REview of systems is otherwise negative. Labs and vitals reviewed. Vitals/I&O's: Vital Signs Temp Pulse Resp BP Pulse Ox 98.5 F 100 18 124/79 H 93 12/16/18 08:35 12/16/18 09:23 12/16/18 08:35 12/16/18 08:35 12/16/18 08:35 Oxygen Flow Rate (L/min) 2 Oxygen Delivery Method Room Air Weight: 350 lb 1.505 oz Body Mass Index (BMI) 55.7 Finger Stick Blood Glucose 115 Intake and Output for Last 24 Hours 12/14/18 12/15/18 12/16/18 23:59 23:59 23:59 Intake Total 5330 / 5330 2010 900 / 900 Output Total 1999 Balance 3330 / 3330 2010 900 / 900 General: Alert, Oriented x3, Cooperative, HEENT: Atraumatic, PERRLA, EOMI, Normocephalic Oral: Moist Mucosa Neck: Supple, No JVD, Negative Carotid Bruits Lungs: Clear to auscultation, Normal air movement, No rhonchi, No wheeze, No rales Cardiovascular: Regular Rhythm, Normal S1, Normal S2, No murmurs, Tachycardic Abdomen: Bowel Sounds Present, Soft, Non Tender, Non-Distended, No Hepato- splenomegaly Skin: No rashes, No breakdown, - - ecchymotic patches over abdomen, from lovenox shots Musculoskeletal: - - LLE in clean bandage; dressing intact. LEft DP and PT pulse palpable Lymphatic: No Cervical, Supraclavicular, or Inguinal Adenopathy Neurological: Cranial nerves II-XII grossly intact Psych/Mental Status: Normal Affect, Appropriate, Alert and oriented to time, place, person, mood and affect Laboratory Results 12/13/18 16:50: Crossmatch See Detail 12/16/18 05:48: WBC 9.9, RBC 2.54 L, Hgb 7.6 L, Hct 23.3 L, MCV 91.7, MCH 29.9, MCHC 32.6, RDW 16.2 H, RDW Differential 53.3 H, Plt Count 226, MPV 9.7, Immature Gran % (Auto) 0.300, Neut % (Auto) 57.3, Lymph % (Auto) 30.8, [place] % (Auto) 9.7, Eos % (Auto) 1.4, Baso % (Auto) 0.5, Absolute Neuts (auto) 5.7, Absolute Lymphs (auto) 3.06, Total Counted Not Reportable, Nucleated RBC % 1.3, Diff Path Review May foll, Absolute Retic 0.13 12/16/18 05:48: Sodium 145, Potassium 3.8, Chloride 108 H, Carbon Dioxide 31.0, Anion Gap 6, BUN 9, Creatinine 0.61, Estim Creat Clear Calc 105.58, Est GFR (MDRD) Af Amer 135, Est GFR (MDRD) Non-Af 112, BUN/Creatinine Ratio 14.8, Glucose 88, Calcium 7.9 L Diagnostic Data Lower Extremity CT 12/13/18 12:51 IMPRESSION: Medial calf muscle fluid collection measuring 13.5 x 6.3 x 3 cm in size, possibly representing an intramuscular hematoma, although abscess is a consideration in appropriate clinical context. Clinical assessment is recommended, with recommendation to assessment to exclude compartment syndrome. No fracture or dislocation. Electronically Signed: Eric Arnold, at 14:00 EDT Tel , Service support , ADDENDUM: 12/13/18 1428 IMPRESSION: Medial calf muscle fluid collection measuring 13.5 x 6.3 x 3 cm in size, possibly representing an intramuscular hematoma, although abscess is a consideration in appropriate clinical context. Clinical assessment is recommended, with recommendation to assessment to exclude compartment syndrome. No fracture or dislocation. N.B. : The above information has been verbally conveyed by Eric Arnold to [phone], on 12/13/2018 14:18:36 (ET). Electronically Signed: Eric Arnold, at 14:00 EDT Tel , Service support , Current Medications Hydrocodone Bitart/Acetaminophen (Lortab [Replacement] 7.5-325/15) 15 ml PO Q6H PRN PRN Reason: PAIN Last Admin: 12/14/18 08:05 Dose: 15 ml Aripiprazole (Abilify) 2 mg PO DAILY [facility] Last Admin: 12/16/18 09:23 Dose: 2 mg Bupropion HCl (Wellbutrin Xl) 300 mg PO DAILY [facility] Last Admin: 12/16/18 09:23 Dose: 300 mg Dextrose (D50w Syringe) 0 gm IV X1 PRN; Protocol PRN Reason: Hypoglycemia Famotidine (Pepcid) 20 mg PO QHS [facility] Last Admin: 12/15/18 21:50 Dose: 20 mg Ferrous Sulfate (Ferrous Sulfate) 325 mg PO DAILY@0800 [facility] Last Admin: 12/16/18 09:23 Dose: 325 mg Glucagon () 1 mg IM .X1 PRN PRN Reason: Hypoglycemia Hydromorphone HCl (Dilaudid Inj) 1 mg IV Q6H PRN PRN PRN Reason: SEVERE PAIN (6-10/10) Last Admin: 12/15/18 21:28 Dose: 1 mg Hydroxyzine Pamoate (Vistaril Pamoate Capsule) 50 mg PO QHS PRN PRN PRN Reason: SLEEP Last Admin: 12/15/18 21:54 Dose: 50 mg Sodium Chloride () 250 mls @ 15 mls/hr IV .[id number] PRN PRN Reason: SALINE FLUSH Metoprolol Succinate (Toprol Xl (Beta Christin)) 25 mg PO DAILY [facility] Last Admin: 12/16/18 09:23 Dose: 25 mg Metoprolol Tartrate (Lopressor (Beta Christin)) 5 mg IV Q6 [facility] Last Admin: 12/16/18 06:02 Dose: Not Given Morphine Sulfate () 2 mg IV Q4H PRN PRN PRN Reason: SEVERE PAIN (6-10/10) Last Admin: 12/16/18 03:43 Dose: 2 mg Pantoprazole Sodium (Protonix) 40 mg PO DAILY [facility] Last Admin: 12/16/18 09:23 Dose: 40 mg Pramipexole Dihydrochloride (Mirapex) 0.25 mg PO TID [facility] Last Admin: 12/16/18 06:02 Dose: 0.25 mg Prednisone () 4 mg PO DAILYCM [facility] Last Admin: 12/16/18 09:22 Dose: 4 mg Sodium Chloride () 5 - 15 ml IV UD PRN PRN Reason: SALINE FLUSH Last Admin: 12/16/18 03:44 Dose: 5 ml Trazodone HCl (Desyrel) 150 mg PO QHS [facility] Last Admin: 12/15/18 21:49 Dose: 150 mg Venlafaxine HCl (Effexor Xr) 225 mg PO DAILY [facility] Last Admin: 12/16/18 09:23 Dose: 225 mg Medical Necessity - Tobacco Use Smoking Status: Never smoker Assessment/Plan 48-year-old female admitted through the ED with a complaint of left calf pain and swelling. 1.Left calf hematoma and acute compartment syndrome of left calf s/p emergent fasciotomy * today is POD 2 3 * coumadin and lovenox on hold * s/p transfusion of 2 units of PRBCs; * INR and apTT after surgery were WNL, therefore likely not contributing to blood loss * duplex of LE was negative for DVT. * will transfuse 2 units of pRBCs * INR today is 1.2, and apTT is 28.7, which are both normal * orthopedic surgery on board * on IV morphine prn * on IV cefazolin * * 2. History of sinus tachycardia: * stable. HR has improved and is down to 100 this morning * on metoprolol 25mg daily. * 3. Acute on chronic anemia due to acute blood loss from hematoma * as under 1. s/p transfusion of 2 units of PRBCs * Hb today is 7.6 * will monitor 4. History of PE: * Coumadin and lovenox on hold. * had PE nine years ago; states Coumadin was continued on account of her testing positive for lupus anticoagulant. * Coumadin on hold on account of hematoma. * 5. History of rheumatoid arthritis * on methotrexate and prednisone * 6. Restless leg syndrome: on ropinirole 7. Hypertension: controlled. On metoprolol. 8. Super morbid obesity: BMI is 56. complicates care, management and prognosis. DVT prophylaxis: SCDs. No anticoagulation for now Code Visit Inpatient E&M: 93709 [facility] Hosp L3
[2018-12-16] MEDS: HYDROmorphone 1 MG/ML Syringe IV (11:14)
--- NOTE | 2018-12-16 12:07 | NURSING ---
wound photo: left medial lower leg
--- NOTE | 2018-12-16 12:09 | NURSING ---
wound photo: left lateral lower leg
--- NOTE | 2018-12-16 12:52 | CASEMGMT ---
SW met w/pt in room in regard to prior level of function and discharge plan. PCP: Dr. Tarah Dubon Specialists: Estimate Clerk Dr. Guerrero, counselor and psychiatrist at [facility]. Preferred Pharmacy: [facility] Insurance/prescription coverage: [employer] Living Will/POA: Pt not interested in additional information at this time, is not certain who she would put down. SW explained that without POA forms, if decisions need made it would need to be all of the children coming to a consensus. She has four children, two boys who are 21, two girls who are 23, all adopted. LNOK: Children as mentioned above, sister Erin Jimenez([phone]) and mom Jasmin Wise Living arrangements/Prior level of care: Pt lives in one story w/her mother, uses a cane occasionally. Otherwise she is independent. Pt's mother is also independent. DME/HHC: Pt uses a cane occasionally. Pt has been to rehab twice in the past for knee replacements in [place]. Pt explained that she was in [place] visiting her daughter and her leg was bothering her. She stopped at an ER on the way back, was told she had a large hematoma, and to get back home and get checked out here. Pt came here, did have surgery but has not been able to get up since then due to bleeding. KAREY offered support to pt. SW asked pt about mental health, pt states she did want to harm herself in July and was in [place]. She has been following up w/her counseling and psychiatrist since then, sees counselor every other week. She does not feel like she wants to harm herself at this time. SW asked pt about going somewhere for rehab after this hospitalization, pt is agreeable to this. SW gave pt a list of nursing homes that take her insurance. She is going to review list and SW will stop in tomorrow to see where she would like a referral sent. Plan: SNF for rehab, SW to follow up tomorrow and make referral to facility of pt's choice. LAUREN Shaver
--- NOTE | 2018-12-16 16:42 | PCM.PN.ORT ---
Patient Problems: Active and Suspected Problems Open wound of left lower extremity (Acute) fasciotomy wounds left medial leg and left lateral leg Hematoma (Acute) Compartment syndrome of left lower extremity (Acute) Subjective: Patient states that overall she is doing better today. She still feels a little tired today. She continues to have pain in the leg and has had to take several doses of the morphine for pain. She denies any more swelling of the leg and denies any numbness or tingling in the leg. She has been able to wiggle her toes and move her ankle around although is decreased and mildly painful. She has been breathing normally and states that she is not short of breath and does not have chest pains, tightness, or wheezing. She also denies any dizziness. - Physical Exam General: Alert, Oriented x3, Cooperative, No apparent distress Oral: Moist Mucosa Lungs: Normal air movement, No wheeze - no audible wheezes Extremities: No cyanosis, Edema - generalized lower extremity edema, Tenderness Skin: Ulcer/ Wound - wound at this time is concealed under gauze pads, krilix, and MENDEZ wrap. This was just evaluated this morning by wound care and then covered and therefore was not undressed at this time. There is some mild clearish/yellowish discharge with slight blood tinge noted on the krilix both medially and laterally. This is more prominant on the medial aspect. Musculoskeletal: Tenderness - generalized lower extremity., - - Patients compartments are soft on palpation today. There is mild tenderness with palpation of the muscular compartments circumferentially. She is able to wiggle her toes. Plantar flexion and dorsiflexion of the ankle are intact at the same time decreased. She does get discomfort at the incision sites with movements of the ankle ( Neurological: Sensory exam intact to light touch and pain - senation to light touch intact on the lower extremity. Psych/Mental Status: Normal Affect, Appropriate Vital Signs Temp Pulse Resp BP Pulse Ox 97.8 F 102 H 16 116/62 98 12/16/18 15:35 12/16/18 15:35 12/16/18 15:35 12/16/18 15:35 12/16/18 15:35 Oxygen Flow Rate (L/min) 2 Oxygen Delivery Method Room Air Weight: 350 lb 1.505 oz Body Mass Index (BMI) 55.7 Finger Stick Blood Glucose 115 Intake and Output for Last 24 Hours 05/26/19 05/27/19 05/28/19 23:59 23:59 23:59 Intake Total 5330 / 5330 2010 1740 / 1740 Output Total 1999 Balance 3330 / 3330 2010 1740 / 1740 Laboratory Tests Past 24 Hrs 12/13/18 12/16/18 12/16/18 16:50 05:48 05:48 WBC 9.9 RBC 2.54 L Hgb 7.6 L Hct 23.3 L MCV 91.7 MCH 29.9 MCHC 32.6 RDW 16.2 H RDW Differential 53.3 H Plt Count 226 MPV 9.7 Immature Gran % (Auto) 0.300 Neut % (Auto) 57.3 Lymph % (Auto) 30.8 [place] % (Auto) 9.7 Eos % (Auto) 1.4 Baso % (Auto) 0.5 Absolute Neuts (auto) 5.7 Absolute Lymphs (auto) 3.06 Total Counted Not Reportable Nucleated RBC % 1.3 Diff Path Review May foll Absolute Retic 0.13 Sodium 145 Potassium 3.8 Chloride 108 H Carbon Dioxide 31.0 Anion Gap 6 BUN 9 Creatinine 0.61 Estim Creat Clear Calc 105.58 Est GFR (MDRD) Af Amer 135 Est GFR (MDRD) Non-Af 112 BUN/Creatinine Ratio 14.8 Glucose 88 Calcium 7.9 L Crossmatch See Detail Medical Necessity - Tobacco Use Smoking Status: Never smoker Assessment/Plan All Active Problems Open wound of left lower extremity (Acute) Hematoma (Acute) Compartment syndrome of left lower extremity (Acute) At this time patient will continue to see wound nurse for evaluation in order to be able to apply the wound vac once the oozing / bleeding has diminished. She is to continue to use the incentive spirometer. She is encouraged to wiggle the toes and move the ankle as tolerated. Monitor and notify of any increased pains, increased swelling, numbness or tingling in the leg, or increased calf pains.
--- NOTE | 2018-12-16 17:32 | PCM.CONS.GEN ---
Reason for Consult Date of Consultation: 12/16/18 Reason for Consultation: Fasciotomy wounds left leg. REFERRING PHYSICIAN: Dr. Sawant. MODEL BUILDER: Dr. Kent. History of Present Illness: The patient is a 48 year old F presented to the hospital with increasing pain and swelling left leg. Hematoma and compartment syndrome was diagnosed and she was taken urgently to the OR on 12/13/[address] Sawant for fasciotomies. Medial and lateral leg wounds were created and the wounds were packed because of the bleeding. Her Hgb had drifted to 6.7 and necessitated PRBC. The plan is to place the VAC in the wounds once no more active bleeding is seen. I was asked to evaluate this patient for post discharge wound care and for surgical options for treatment for future wound closure. 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) on Methotrexate for Lupus High risk medication use (Chronic) on Methotrexate for Lupus intermediate frame tender current use of anticoagulant (Chronic) Allergies adhesive tape Adverse Reaction (Verified 12/13/18 10:26) Rash Home Medications: Ambulatory Orders Medication Instructions Recorded Aripiprazole [Abilify] 2 mg PO DAILY 07/10/18 Methotrexate Sodium [Methotrexate] 14 mg PO FR 07/10/18 Metoprolol Succinate [Toprol Xl] 25 mg PO DAILY 07/10/18 Omeprazole 40 mg PO DAILY 07/10/18 Prednisone 4 mg PO DAILY 07/10/18 Ranitidine [Zantac] 150 mg PO QHS 07/10/18 Venlafaxine HCl [Effexor] 225 mg PO DAILY 07/10/18 Bupropion HCl [Bupropion Xl] 300 mg PO DAILY 08/25/18 Hydroxyzine Pamoate [Vistaril] 50 mg PO PRN PRN 08/25/18 Ropinirole HCl [Ropinirole ER] 2 mg PO QHS 08/25/18 Trazodone ER [Oleptro Er] 150 mg PO QHS 08/25/18 Diazepam [Valium] 4 mg PO 4X/DAY PRN PRN #10 tab 12/20/18 Enoxaparin Sodium [Lovenox] 80 mg SQ BID #0 12/20/18 Ferrous Sulfate 325 mg PO BID #0 12/20/18 Oxycodone HCl/Acetaminophen 1 ea PO Q6H PRN #10 tab 12/20/18 [Percocet 5-325 mg Tablet] Warfarin [Coumadin] 5 mg PO DAILY #0 12/20/18 Surgical History: - - bilateral knee replacement Psychiatric History: No pertinent psych hx INTERNATIONAL STUDENT COUNSELOR History: No pertinent 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 Eyes: Denies: Blurred vision. HEENT: Denies: Head Aches, Sinus Congestion, Sinus Drainage. Cardiovascular: Denies: Chest Pain, Palpitations. Respiratory: Denies: Cough, Shortness of Breath, Shortness of breath at rest, Sputum production. Gastrointestinal: Denies: Abdominal Pain, Nausea, Vomiting. Genitourinary: Denies: Dysuria. Musculoskeletal: Reports: Leg Pain, Muscle pain. Denies: Arm Pain, Back Pain, Foot Pain, Hand Pain, Joint Pain, Joint swelling. Skin: Denies: Rash, Wounds. Neurological: Denies: Numbness, Tingling, Focal weakness. Psychiatric: Denies: Anxiety, Depression, Homicidal Ideations, Suicidal Ideations. Hematologic/ Lymphatic: Denies: Easy Bruising, Easy Bleeding - Physical Exam General: Alert, Oriented x3. HEENT: PERRLA, EOMI. Oral: Moist Mucosa Neck: Supple, Nontender. Lungs: Clear to auscultation. Cardiovascular: Regular Rhythm, Tachycardic Abdomen: Soft, Non-Distended. Skin: Fasciotomy wounds present on left medial leg and left lateral leg. Mild swelling present. Wounds extend down to the muscle. Appears viable. Some residual oozing noted on the medial side. Lateral side is stable. Medial leg wound measures 22 x 7 x 2.5 cm. Lateral leg wound measures 21 x 3 x 1.5 cm. A compression dressing was continued because of residual oozing. Lymphatic: No Cervical, Supraclavicular, or Inguinal Adenopathy Neurological: Cranial nerves II-XII grossly intact Psych/Mental Status: Normal Affect, Appropriate, Alert and oriented to time, place, person, mood and affect Vital Signs Temp Pulse Resp BP Pulse Ox 97.8 F 102 H 16 116/62 98 12/16/18 15:35 12/16/18 15:35 12/16/18 15:35 12/16/18 15:35 12/16/18 15:35 Oxygen Flow Rate (L/min) 2 Oxygen Delivery Method Room Air Weight: 350 lb 1.505 oz Body Mass Index (BMI) 55.7 Finger Stick Blood Glucose 115 Intake and Output for Last 24 Hours 12/14/18 12/15/18 12/16/18 23:59 23:59 23:59 Intake Total 5330 / 5330 2010 Output Total 1999 800 / 800 Balance 3330 / 3330 2010 1180 / 1180 Laboratory Tests Past 24 Hrs 12/13/18 12/16/18 12/16/18 16:50 05:48 05:48 WBC 9.9 RBC 2.54 L Hgb 7.6 L Hct 23.3 L MCV 91.7 MCH 29.9 MCHC 32.6 RDW 16.2 H RDW Differential 53.3 H Plt Count 226 MPV 9.7 Immature Gran % (Auto) 0.300 Neut % (Auto) 57.3 Lymph % (Auto) 30.8 [place] % (Auto) 9.7 Eos % (Auto) 1.4 Baso % (Auto) 0.5 Absolute Neuts (auto) 5.7 Absolute Lymphs (auto) 3.06 Total Counted Not Reportable Nucleated RBC % 1.3 Diff Path Review May foll Absolute Retic 0.13 Sodium 145 Potassium 3.8 Chloride 108 H Carbon Dioxide 31.0 Anion Gap 6 BUN 9 Creatinine 0.61 Estim Creat Clear Calc 105.58 Est GFR (MDRD) Af Amer 135 Est GFR (MDRD) Non-Af 112 BUN/Creatinine Ratio 14.8 Glucose 88 Calcium 7.9 L Crossmatch See Detail Diagnostic Data Lower Extremity CT 12/13/18 12:51 IMPRESSION: Medial calf muscle fluid collection measuring 13.5 x 6.3 x 3 cm in size, possibly representing an intramuscular hematoma, although abscess is a consideration in appropriate clinical context. Clinical assessment is recommended, with recommendation to assessment to exclude compartment syndrome. No fracture or dislocation. Electronically Signed: Eric Arnold, at 14:00 EDT Tel , Service support , ADDENDUM: 12/13/18 1425 IMPRESSION: Medial calf muscle fluid collection measuring 13.5 x 6.3 x 3 cm in size, possibly representing an intramuscular hematoma, although abscess is a consideration in appropriate clinical context. Clinical assessment is recommended, with recommendation to assessment to exclude compartment syndrome. No fracture or dislocation. N.B. : The above information has been verbally conveyed by Eric Arnold to [phone], on 12/13/2018 14:18:36 (ET). Electronically Signed: Eric Arnold, at 14:00 EDT Tel , Service support , Assessment/Plan All Active Problems Open wound of left lower extremity (Acute) Hematoma (Acute) Compartment syndrome of left lower extremity (Acute) 1. Left medial leg fasciotomy wound. 2. Left lateral leg fasciotomy wound. 3. Hematoma with compartment syndrome left leg s/p fasciotomies. 4. residential use of anticoagulation. 5. Lupus. 6. Immunocompromised state due to high risk medication, Methotrexate, for Lupus. Continue packing the wounds for another day. Will reassess daily. Once oozing is stable, can apply the VAC. Ok for the patient to ambulate with assist. Try and minimize standing to keep swelling to a minimum. Too much standing can also increase risk of continued oozing of the wounds. Would benefit from PT for strengthening and ambulation. May need a temporary walker at home. Home Health can assist with the VAC changes three times per week. After discharge she [facility]. I anticipate at least 1-2 months of wound care until wounds are more superficial with good granulation tissue and ready for wound closure with skin grafting. Due to the swelling and her medical history of lupus and being on Methotrexate and Prednisone and eventually an immune modulator medication and being on blood thinners which can affect healing, it would be safer to proceed with skin grafting as opposed to proceeding with a delayed secondary wound closure over a drain. After the skin grafts have healed, and the swelling has resolved after at least a year, we can have a discussion about excising the skin grafts with secondary wound closure. At that time, would only do one side and excise one skin graft at a time. Would wait 6 months in between surgeries before proceeding with the other side and excision of the other skin graft with secondary wound closure. Drains would be placed along with compression MENDEZ wraps. At that point, if wound healing problems occur, would return to the VAC until healed or proceed with skin grafting until healed. Patient was informed of the risks and complications of the procedure including alternatives to surgery. These were discussed with the patient personally. Patient voices understanding and wishes to proceed. She understands she will be discharged with the wounds and will have additional surgery for wound closure in a delayed fashion. Code Visit Inpatient E&M: 86255 Init Hosp L2 - ICD-10 - S81.802A, T14.8xxA, T79.A22A, Z79.01, M32.9, Z79.899
[2018-12-16] MEDS: Famotidine 20 MG Tablet PO (21:41)
[2018-12-16] MEDS: traZODone 50 MG Tablet 150 MG PO (21:41)
[2018-12-16] MEDS: hydrOXYzine PAM 25 MG Capsule 50 MG PO (21:43)
[2018-12-17] VITALS (16 sets, daily range): BP systolic 93–122; BP diastolic 37–71; PULSE 96–105; RESP 16–22; TEMP 36.6–37.3; O2SAT 94–95
[2018-12-17] MEDS: 0.9% NaCl Peripheral Flush Adult/Peds IV ×10 (03:41→23:20)
[2018-12-17] MEDS: Morphine 2 MG/ML Syringe IV ×7 (03:41→21:59)
[2018-12-17] MEDS: Pramipexole Di-HCl 0.25 MG Tablet PO ×3 (05:59→20:59)
[2018-12-17 06:09] LABS: Absolute Lymphocyte Count 2.74 X10^3/ul (0.83-4.51); Absolute Neutrophil Count 6.9 X10^3/uL (2.0-7.7); Basophil# 0.04 X10^3/uL; Basophil% 0.4 % (0-1); Eosinophil# 0.26 X10^3/uL; Eosinophils% 2.3 % (0-5); Hematocrit 24.7 % (37-47); Hemoglobin 7.8 g/dl (12.0-15.0); Lymphocyte # 2.74 X10^3/ul (4.0); Lymphocyte % 24.8 % (19-41); Mean Corp Hgb Conc 31.6 g/gl (32-36); Mean Corpuscular Hgb 29.3 pg (27.0-32.0); Mean Corpuscular Volume 92.9 fL (81-99); Mean Platelet Vol. 8.8 fl (6.2-12.0); Monocyte# 1.06 X10^3/uL; Monocyte% 9.6 % (0-10); Neutrophil # 6.93 X10^3/uL (2.7-7.7); Neutrophil % 62.5 % (47-70); Platelet Count 312 K/mm3 (150-450); RBC Distribution Width CV 15.9 % (11.6-14.6); RBC Distribution Width SD 52.1 fl (35.1-43.9); Red Blood Count 2.66 M/mm3 (4.2-5.4); White Blood Count 11.1 K/mm3 (4.4-11.0)
[2018-12-17 06:10] LABS: Absolute Nucleated RBC Count 0.08 10^3/uL (0-5); NRBC Flagged by Analyzer 0.7 % (0-5); POSITIVE COUNT NO; POSITIVE DIFFERENTIAL NO; POSITIVE MORPHOLOGY NO
[2018-12-17 06:22] LABS: Anion Gap 7 (5-15); BUN 8 mg/dL (7-18); BUN/Creat Ratio 11.3 RATIO (10-20); Calcium,Total 8.4 mg/dL (8.5-10.1); Chloride 106 mmol/L (98-107); Creatinine, Serum 0.71 mg/dL (0.55-1.02); EST Glomerular Filtration Rate 93 mL/min (>60); Est Glom Filt Rate - Afr Amer 113 mL/min (>60); Estimated Creatinine Clearance 90.71 ml/min; Glucose 95 mg/dL (74-106); Potassium 3.9 mmol/L (3.5-5.1); Sodium Level 142 mmol/L (136-145)
[2018-12-17] MEDS: Pantoprazole Sodium 40 MG Tablet PO (09:49)
[2018-12-17] MEDS: Ferrous Sulfate 325 MG Tablet PO (09:49)
[2018-12-17] MEDS: predniSONE 1 MG Tablet 4 MG PO (09:49)
[2018-12-17] MEDS: buPROPion (XL) 300 MG TABLET.XL PO (09:49)
[2018-12-17] MEDS: Venlafaxine XR 75 MG Capsule 225 MG PO (09:49)
[2018-12-17] MEDS: ARIPiprazole 2 MG Tablet PO (09:49)
[2018-12-17] MEDS: Metoprolol(XL)Succ 25 MG Tablet PO (09:49)
--- NOTE | 2018-12-17 10:00 | CASEMGMT ---
SW met with patient, introduced self and role at [facility]. Patient said she prefers [facility]. SW told her SW will make referral and let her know that if they are able to accept her. KAREY called Cristina at [facility] and left message with referral as well as faxed information. Nimo GARRETT MSW
[2018-12-17 12:03] LABS: Pathologist Review Reviewed
[2018-12-17] MEDS: HYDROmorphone 1 MG/ML Syringe 2 MG IV (13:00)
--- NOTE | 2018-12-17 13:05 | CASEMGMT ---
[facility] was already obtained from [facility] ED previously and provided to ptMason Jean Baptiste RN CM
--- NOTE | 2018-12-17 13:08 | PCM.PN.HOSP ---
Patient Problems: Active and Suspected Problems Hematoma (Acute) Compartment syndrome of left lower extremity (Acute) Subjective: Patient seen and examined. She complained of increased pain during dressing change. She denies any fever, tachycardia, lightheadedness or dizziness, palpitations, chest pain, diarrhea or vomiting. She still had increased bleeding from wound and so wound vac couldnt be placed yesterday. Labs and vitals reviewed. Vitals/I&O's: Vital Signs Temp Pulse Resp BP Pulse Ox 99.1 F 104 H 16 114/60 94 12/17/18 08:29 12/17/18 09:49 12/17/18 08:29 12/17/18 08:29 12/17/18 08:29 Oxygen Flow Rate (L/min) 2 Oxygen Delivery Method Room Air Weight: 343 lb 7.683 oz Body Mass Index (BMI) 55.7 Finger Stick Blood Glucose 115 Intake and Output for Last 24 Hours 12/15/18 12/16/18 12/17/18 23:59 23:59 23:59 Intake Total 2010 / 1979 240 / 240 Output Total 1600 / 1600 Balance 2010 380 / 380 240 / 240 General: Alert, Oriented x3, Cooperative, HEENT: Atraumatic, PERRLA, EOMI, Normocephalic Oral: Moist Mucosa Neck: Supple, No JVD, Negative Carotid Bruits Lungs: Clear to auscultation, Normal air movement, No rhonchi, No wheeze, No rales Cardiovascular: Regular Rhythm, Normal S1, Normal S2, No murmurs, Tachycardic Abdomen: Bowel Sounds Present, Soft, Non Tender, Non-Distended, No Hepato-splenomegaly Skin: No rashes, No breakdown, - - ecchymotic patches over abdomen, resolving Musculoskeletal: - - LLE in clean bandage; dressing intact. Left DP and PT pulse palpable Lymphatic: No Cervical, Supraclavicular, or Inguinal Adenopathy Neurological: Cranial nerves II-XII grossly intact Psych/Mental Status: Normal Affect, Appropriate, Alert and oriented to time, place, person, mood and affect Laboratory Results 12/16/18 05:48: Diff Path Review Reviewed 12/17/18 05:36: WBC 11.1 H, RBC 2.66 L, Hgb 7.8 L, Hct 24.7 L, MCV 92.9, MCH 29.3, MCHC 31.6 L, RDW 15.9 H, RDW Differential 52.1 H, Plt Count 312, MPV 8.8, Immature Gran % (Auto) 0.400, Neut % (Auto) 62.5, Lymph % (Auto) 24.8, [place] % (Auto) 9.6, Eos % (Auto) 2.3, Baso % (Auto) 0.4, Absolute Neuts (auto) 6.9, Absolute Lymphs (auto) 2.74, Total Counted Not Reportable, Nucleated RBC % 0.7, Absolute Retic 0.08 12/17/18 05:36: Sodium 142, Potassium 3.9, Chloride 106, Carbon Dioxide 29.0, Anion Gap 7, BUN 8, Creatinine 0.71, Estim Creat Clear Calc 90.71, Est GFR (MDRD) Af Amer 113, Est GFR (MDRD) Non-Af 93, BUN/Creatinine Ratio 11.3, Glucose 95, Calcium 8.4 L Current Medications Hydrocodone Bitart/Acetaminophen (Lortab [Replacement] 7.5-325/15) 15 ml PO Q6H PRN PRN Reason: PAIN Last Admin: 12/14/18 08:05 Dose: 15 ml Aripiprazole (Abilify) 2 mg PO DAILY [facility] Last Admin: 12/17/18 09:49 Dose: 2 mg Bupropion HCl (Wellbutrin Xl) 300 mg PO DAILY [facility] Last Admin: 12/17/18 09:49 Dose: 300 mg Dextrose (D50w Syringe) 0 gm IV X1 PRN; Protocol PRN Reason: Hypoglycemia Famotidine (Pepcid) 20 mg PO QHS [facility] Last Admin: 12/16/18 21:41 Dose: 20 mg Ferrous Sulfate (Ferrous Sulfate) 325 mg PO DAILY@0800 [facility] Last Admin: 12/17/18 09:49 Dose: 325 mg Glucagon () 1 mg IM .X1 PRN PRN Reason: Hypoglycemia Hydroxyzine Pamoate (Vistaril Pamoate Capsule) 50 mg PO QHS PRN PRN PRN Reason: SLEEP Last Admin: 12/16/18 21:43 Dose: 50 mg Sodium Chloride () 250 mls @ 15 mls/hr IV .[id number] PRN PRN Reason: SALINE FLUSH Metoprolol Succinate (Toprol Xl (Beta Christin)) 25 mg PO DAILY [facility] Last Admin: 12/17/18 09:49 Dose: 25 mg Metoprolol Tartrate (Lopressor (Beta Christin)) 5 mg IV Q6 [facility] Last Admin: 12/17/18 11:37 Dose: Not Given Morphine Sulfate () 2 mg IV Q2H PRN PRN PRN Reason: SEVERE PAIN (6-10/10) Last Admin: 12/17/18 11:38 Dose: 2 mg Pantoprazole Sodium (Protonix) 40 mg PO DAILY [facility] Last Admin: 12/17/18 09:49 Dose: 40 mg Pramipexole Dihydrochloride (Mirapex) 0.25 mg PO TID [facility] Last Admin: 12/17/18 05:59 Dose: 0.25 mg Prednisone () 4 mg PO DAILYCM [facility] Last Admin: 12/17/18 09:49 Dose: 4 mg Sodium Chloride () 5 - 15 ml IV UD PRN PRN Reason: SALINE FLUSH Last Admin: 12/17/18 11:37 Dose: 10 ml Trazodone HCl (Desyrel) 150 mg PO QHS [facility] Last Admin: 12/16/18 21:41 Dose: 150 mg Venlafaxine HCl (Effexor Xr) 225 mg PO DAILY [facility] Last Admin: 12/17/18 09:49 Dose: 225 mg Medical Necessity - Tobacco Use Smoking Status: Never smoker Assessment/Plan All Active Problems Hematoma (Acute) Compartment syndrome of left lower extremity (Acute) 48-year-old female admitted through the ED with a complaint of left calf pain and swelling. 1.Left calf hematoma and acute compartment syndrome of left calf s/p emergent fasciotomy today is POD 3 coumadin and lovenox on hold s/p transfusion of 2 units of PRBCs; INR and apTT after surgery were WNL, therefore likely not contributing to blood loss duplex of LE was negative for DVT. on IV morphine prn. Will give IV dilaudid for dressing change 2. History of sinus tachycardia: stable. on metoprolol 25mg daily. 3. Acute on chronic anemia due to acute blood loss from hematoma as under 1. s/p transfusion of 2 units of PRBCs Hb today is 7.8 still having seepage from left calf hematoma will monitor 4. History of PE: Coumadin and lovenox on hold. had PE nine years ago; states Coumadin was continued on account of her testing positive for lupus anticoagulant. Coumadin on hold on account of hematoma. patient counselled about risk for PE and DVT in light of history of PE and positive lupus anticoagulant; due to increased seepage, we cannot re-start coumadin. 5. History of rheumatoid arthritis on methotrexate and prednisone 6. Restless leg syndrome: on ropinirole 7. Hypertension: controlled. On metoprolol. 8. Super morbid obesity: BMI is 56. complicates care, management and prognosis. DVT prophylaxis: SCDs. No anticoagulation for now Code Visit Inpatient E&M: 04998 Subs Hosp L3
--- NOTE | 2018-12-17 13:17 | PN_ITS ---
Patient Problems: Active and Suspected Problems Hematoma (Acute) Compartment syndrome of left lower extremity (Acute) Subjective: Patient seen and examined. She complained of increased pain during dressing change. She denies any fever, tachycardia, lightheadedness or dizziness, palpitations, chest pain, diarrhea or vomiting. She still had increased bleeding from wound and so wound vac couldnt be placed yesterday. Labs and vitals reviewed. Vitals/I&O's: Vital Signs Temp Pulse Resp BP Pulse Ox 99.1 F 104 H 16 114/60 94 12/17/18 08:29 12/17/18 09:49 12/17/18 08:29 12/17/18 08:29 12/17/18 08:29 Oxygen Flow Rate (L/min) 2 Oxygen Delivery Method Room Air Weight: 343 lb 7.683 oz Body Mass Index (BMI) 55.7 Finger Stick Blood Glucose 115 Intake and Output for Last 24 Hours 12/15/18 12/16/18 12/17/18 23:59 23:59 23:59 Intake Total 2010 / 1979 240 / 240 Output Total 1600 / 1600 Balance 2010 380 / 380 240 / 240 General: Alert, Oriented x3, Cooperative, HEENT: Atraumatic, PERRLA, EOMI, Normocephalic Oral: Moist Mucosa Neck: Supple, No JVD, Negative Carotid Bruits Lungs: Clear to auscultation, Normal air movement, No rhonchi, No wheeze, No rales Cardiovascular: Regular Rhythm, Normal S1, Normal S2, No murmurs, Tachycardic Abdomen: Bowel Sounds Present, Soft, Non Tender, Non-Distended, No Hepato- splenomegaly Skin: No rashes, No breakdown, - - ecchymotic patches over abdomen, resolving Musculoskeletal: - - LLE in clean bandage; dressing intact. Left DP and PT pulse palpable Lymphatic: No Cervical, Supraclavicular, or Inguinal Adenopathy Neurological: Cranial nerves II-XII grossly intact Psych/Mental Status: Normal Affect, Appropriate, Alert and oriented to time, place, person, mood and affect Laboratory Results 12/16/18 05:48: Diff Path Review Reviewed 12/17/18 05:36: WBC 11.1 H, RBC 2.66 L, Hgb 7.8 L, Hct 24.7 L, MCV 92.9, MCH 29.3, MCHC 31.6 L, RDW 15.9 H, RDW Differential 52.1 H, Plt Count 312, MPV 8.8, Immature Gran % (Auto) 0.400, Neut % (Auto) 62.5, Lymph % (Auto) 24.8, [place] % (Auto) 9.6, Eos % (Auto) 2.3, Baso % (Auto) 0.4, Absolute Neuts (auto) 6.9, Absolute Lymphs (auto) 2.74, Total Counted Not Reportable, Nucleated RBC % 0.7, Absolute Retic 0.08 12/17/18 05:36: Sodium 142, Potassium 3.9, Chloride 106, Carbon Dioxide 29.0, Anion Gap 7, BUN 8, Creatinine 0.71, Estim Creat Clear Calc 90.71, Est GFR (MDRD) Af Amer 113, Est GFR (MDRD) Non-Af 93, BUN/Creatinine Ratio 11.3, Glucose 95, Calcium 8.4 L Current Medications Hydrocodone Bitart/Acetaminophen (Lortab [Replacement] 7.5-325/15) 15 ml PO Q6H PRN PRN Reason: PAIN Last Admin: 12/14/18 08:05 Dose: 15 ml Aripiprazole (Abilify) 2 mg PO DAILY [facility] Last Admin: 12/17/18 09:49 Dose: 2 mg Bupropion HCl (Wellbutrin Xl) 300 mg PO DAILY [facility] Last Admin: 12/17/18 09:49 Dose: 300 mg Dextrose (D50w Syringe) 0 gm IV X1 PRN; Protocol PRN Reason: Hypoglycemia Famotidine (Pepcid) 20 mg PO QHS [facility] Last Admin: 12/16/18 21:41 Dose: 20 mg Ferrous Sulfate (Ferrous Sulfate) 325 mg PO DAILY@0800 [facility] Last Admin: 12/17/18 09:49 Dose: 325 mg Glucagon () 1 mg IM .X1 PRN PRN Reason: Hypoglycemia Hydroxyzine Pamoate (Vistaril Pamoate Capsule) 50 mg PO QHS PRN PRN PRN Reason: SLEEP Last Admin: 12/16/18 21:43 Dose: 50 mg Sodium Chloride () 250 mls @ 15 mls/hr IV .[id number] PRN PRN Reason: SALINE FLUSH Metoprolol Succinate (Toprol Xl (Beta Christin)) 25 mg PO DAILY [facility] Last Admin: 12/17/18 09:49 Dose: 25 mg Metoprolol Tartrate (Lopressor (Beta Christin)) 5 mg IV Q6 [facility] Last Admin: 12/17/18 11:37 Dose: Not Given Morphine Sulfate () 2 mg IV Q2H PRN PRN PRN Reason: SEVERE PAIN (6-10/10) Last Admin: 12/17/18 11:38 Dose: 2 mg Pantoprazole Sodium (Protonix) 40 mg PO DAILY [facility] Last Admin: 12/17/18 09:49 Dose: 40 mg Pramipexole Dihydrochloride (Mirapex) 0.25 mg PO TID [facility] Last Admin: 12/17/18 05:59 Dose: 0.25 mg Prednisone () 4 mg PO DAILYCM [facility] Last Admin: 12/17/18 09:49 Dose: 4 mg Sodium Chloride () 5 - 15 ml IV UD PRN PRN Reason: SALINE FLUSH Last Admin: 12/17/18 11:37 Dose: 10 ml Trazodone HCl (Desyrel) 150 mg PO QHS [facility] Last Admin: 12/16/18 21:41 Dose: 150 mg Venlafaxine HCl (Effexor Xr) 225 mg PO DAILY [facility] Last Admin: 12/17/18 09:49 Dose: 225 mg Medical Necessity - Tobacco Use Smoking Status: Never smoker Assessment/Plan All Active Problems Hematoma (Acute) Compartment syndrome of left lower extremity (Acute) 48-year-old female admitted through the ED with a complaint of left calf pain and swelling. 1.Left calf hematoma and acute compartment syndrome of left calf s/p emergent fasciotomy * today is POD 3 * coumadin and lovenox on hold * s/p transfusion of 2 units of PRBCs; * INR and apTT after surgery were WNL, therefore likely not contributing to blood loss * duplex of LE was negative for DVT. * on IV morphine prn. Will give IV dilaudid for dressing change 2. History of sinus tachycardia: * stable. * on metoprolol 25mg daily. * 3. Acute on chronic anemia due to acute blood loss from hematoma * as under 1. s/p transfusion of 2 units of PRBCs * Hb today is 7.8 * still having seepage from left calf hematoma * will monitor 4. History of PE: * Coumadin and lovenox on hold. * had PE nine years ago; states Coumadin was continued on account of her testing positive for lupus anticoagulant. * Coumadin on hold on account of hematoma. * patient counselled about risk for PE and DVT in light of history of PE and positive lupus anticoagulant; due to increased seepage, we cannot re-start coumadin. * 5. History of rheumatoid arthritis * on methotrexate and prednisone * 6. Restless leg syndrome: on ropinirole 7. Hypertension: controlled. On metoprolol. 8. Super morbid obesity: BMI is 56. complicates care, management and prognosis. DVT prophylaxis: SCDs. No anticoagulation for now Code Visit Inpatient E&M: 62878 Subs Hosp L3
--- NOTE | 2018-12-17 14:33 | CASEMGMT ---
Received call from [facility] and they are not able to accept patient at this time due to cost issues. SW notified patient and she will ask her niece bayronmoriah what other facility she recommends. KAREY will check back with patient in am. Nimo GARRETT MSW
--- NOTE | 2018-12-17 14:48 | PN.ORTHO_ITS ---
Patient Problems: Active and Suspected Problems Hematoma (Acute) Compartment syndrome of left lower extremity (Acute) Subjective: Patient seen and examined at bedside. Patient was transfused couple units the other day still not feeling like a lot of energy however denies shortness of breath fevers chills or other constitutional symptoms. Does have pain with dressing changes of her left lower extremity. - Physical Exam General: Alert, Oriented x3, Cooperative HEENT: Atraumatic, PERRLA, EOMI, Normocephalic Neck: Supple, No JVD, Negative Carotid Bruits Lungs: Clear to auscultation, Normal air movement Cardiovascular: Regular rate, No murmurs Abdomen: Bowel Sounds Present, Soft, Non Tender Extremities: No edema, Capillary Refill Less than 3 Seconds Skin: No rashes, No breakdown Musculoskeletal: Tenderness - at site of fasciotomies, nvi, sgi, compts soft, neg homans sign Neurological: Cranial nerves II-XII grossly intact Psych/Mental Status: Normal Affect, Appropriate Vital Signs Temp Pulse Resp BP Pulse Ox 99.1 F 104 H 16 114/60 94 12/17/18 08:29 12/17/18 09:49 12/17/18 08:29 12/17/18 08:29 12/17/18 08:29 Oxygen Flow Rate (L/min) 2 Oxygen Delivery Method Room Air Weight: 343 lb 7.683 oz Body Mass Index (BMI) 55.7 Finger Stick Blood Glucose 115 Intake and Output for Last 24 Hours 12/15/18 12/16/18 12/17/18 23:59 23:59 23:59 Intake Total 2010 / 1979 240 / 240 Output Total 1600 / 1600 Balance 2010 380 / 380 240 / 240 Laboratory Tests Past 24 Hrs 12/16/18 12/17/18 12/17/18 05:48 05:36 05:36 WBC 11.1 H RBC 2.66 L Hgb 7.8 L Hct 24.7 L MCV 92.9 MCH 29.3 MCHC 31.6 L RDW 15.9 H RDW Differential 52.1 H Plt Count 312 MPV 8.8 Immature Gran % (Auto) 0.400 Neut % (Auto) 62.5 Lymph % (Auto) 24.8 [place] % (Auto) 9.6 Eos % (Auto) 2.3 Baso % (Auto) 0.4 Absolute Neuts (auto) 6.9 Absolute Lymphs (auto) 2.74 Total Counted Not Reportable Nucleated RBC % 0.7 Diff Path Review Reviewed Absolute Retic 0.08 Sodium 142 Potassium 3.9 Chloride 106 Carbon Dioxide 29.0 Anion Gap 7 BUN 8 Creatinine 0.71 Estim Creat Clear Calc 90.71 Est GFR (MDRD) Af Amer 113 Est GFR (MDRD) Non-Af 93 BUN/Creatinine Ratio 11.3 Glucose 95 Calcium 8.4 L Medical Necessity - Tobacco Use Smoking Status: Never smoker Assessment/Plan All Active Problems Hematoma (Acute) Compartment syndrome of left lower extremity (Acute)
[2018-12-17] MEDS: hydrOXYzine PAM 25 MG Capsule 50 MG PO (20:58)
[2018-12-17] MEDS: traZODone 50 MG Tablet 150 MG PO (20:58)
[2018-12-17] MEDS: Famotidine 20 MG Tablet PO (20:58)
[2018-12-17] MEDS: HYDROmorphone 1 MG/ML Syringe IV (23:20)
[2018-12-18] VITALS (13 sets, daily range): BP systolic 92–133; BP diastolic 46–58; PULSE 92–109; RESP 14–18; TEMP 36.8–36.9; O2SAT 94–96
[2018-12-18] MEDS: 0.9% NaCl Peripheral Flush Adult/Peds IV ×4 (04:28→20:42)
[2018-12-18] MEDS: HYDROmorphone 1 MG/ML Syringe IV ×4 (04:28→20:43)
[2018-12-18] MEDS: Pramipexole Di-HCl 0.25 MG Tablet PO ×3 (05:02→20:42)
[2018-12-18 06:12] LABS: Absolute Lymphocyte Count 3.06 X10^3/ul (0.83-4.51); Absolute Neutrophil Count 6.2 X10^3/uL (2.0-7.7); Basophil# 0.03 X10^3/uL; Basophil% 0.3 % (0-1); Eosinophil# 0.29 X10^3/uL; Eosinophils% 2.8 % (0-5); Hematocrit 25.4 % (37-47); Hemoglobin 8.2 g/dl (12.0-15.0); Lymphocyte # 3.06 X10^3/ul (4.0); Lymphocyte % 29.5 % (19-41); Mean Corp Hgb Conc 32.3 g/gl (32-36); Mean Corpuscular Hgb 30.3 pg (27.0-32.0); Mean Corpuscular Volume 93.7 fL (81-99); Monocyte# 0.78 X10^3/uL; Monocyte% 7.5 % (0-10); Neutrophil % 59.7 % (47-70); Platelet Count 362 K/mm3 (150-450); RBC Distribution Width CV 15.9 % (11.6-14.6); RBC Distribution Width SD 51.8 fl (35.1-43.9); Red Blood Count 2.71 M/mm3 (4.2-5.4); White Blood Count 10.4 K/mm3 (4.4-11.0)
[2018-12-18 06:24] LABS: Anion Gap 6 (5-15); BUN 10 mg/dL (7-18); BUN/Creat Ratio 12.5 RATIO (10-20); Calcium,Total 8.8 mg/dL (8.5-10.1); Chloride 105 mmol/L (98-107); EST Glomerular Filtration Rate 81 mL/min (>60); Est Glom Filt Rate - Afr Amer 98 mL/min (>60); Estimated Creatinine Clearance 80.51 ml/min; Glucose 92 mg/dL (74-106); Potassium 3.9 mmol/L (3.5-5.1); Sodium Level 139 mmol/L (136-145)
[2018-12-18 06:31] LABS: POSITIVE COUNT NO; POSITIVE DIFFERENTIAL NO; POSITIVE MORPHOLOGY NO
[2018-12-18] MEDS: predniSONE 1 MG Tablet 4 MG PO (08:08)
[2018-12-18] MEDS: Ferrous Sulfate 325 MG Tablet PO (08:09)
[2018-12-18] MEDS: Venlafaxine XR 75 MG Capsule 225 MG PO (09:07)
[2018-12-18] MEDS: Pantoprazole Sodium 40 MG Tablet PO (09:07)
[2018-12-18] MEDS: Metoprolol(XL)Succ 25 MG Tablet PO (09:08)
[2018-12-18] MEDS: buPROPion (XL) 300 MG TABLET.XL PO (09:08)
[2018-12-18] MEDS: ARIPiprazole 2 MG Tablet PO (09:09)
--- NOTE | 2018-12-18 09:49 | PN.ORTHO_ITS ---
Patient Problems: Active and Suspected Problems Open wound of left lower extremity (Acute) fasciotomy wounds left medial leg and left lateral leg Hematoma (Acute) Compartment syndrome of left lower extremity (Acute) Subjective: Patient states that she is doing pretty well this morning. She states that she was having quite a bit of pain after the wound vac was applied and thereafter but states after they rearranged her medications that the pain has been better controlled. She continues to deny numbness and tingling of the lower extremity. She is able to move her toes and her ankle (decreased ROM due to stiffness and discomfort in the leg). She has not noticed any new swelling in the leg. She denies shortness of breath, chest pains, nausea, dizziness, or headache - Physical Exam General: Alert, Oriented x3, Cooperative, No apparent distress, Well developed Lungs: Normal air movement Extremities: Edema - still some mild generalized swelling of the lower leg, Peripheral Pulses Normal, Tenderness - generlized tenderness circumferentially around the leg, - Skin: Ulcer/ Wound - there is currently a wound vac applied to both medial and lateral incision sites. Skin edges do not show any erythema, inflammation, or signs of infection. There is tenderness around wound edges. Musculoskeletal: Tenderness, - - Compartments of the lower extremity are soft. She does have pretty normal motion of the toes. She is able to dorsiflex and plantar flex the ankle at the same time is decreased due to stiffness and discomfort in the lower leg with muscle recruitment. Neurological: Sensory exam intact to light touch and pain Psych/Mental Status: Normal Affect, Appropriate, Alert and oriented to time, place, person, mood and affect Vital Signs Temp Pulse Resp BP Pulse Ox 98.5 F 102 H 16 102/57 L 94 12/18/18 04:15 12/18/18 09:08 12/18/18 04:15 12/18/18 09:08 12/18/18 04:15 Oxygen Flow Rate (L/min) 2 Oxygen Delivery Method Room Air Weight: 343 lb 11.21 oz Body Mass Index (BMI) 55.7 Finger Stick Blood Glucose 115 Intake and Output for Last 24 Hours 12/16/18 12/17/18 12/18/18 23:59 23:59 23:59 Intake Total 1979 / 1979 840 / 840 240 / 240 Output Total 1600 / 1600 300 / 300 100 / 100 Balance 380 / 380 540 / 540 140 / 140 Laboratory Tests Past 24 Hrs 12/16/18 12/18/18 12/18/18 05:48 05:00 05:00 WBC 10.4 RBC 2.71 L Hgb 8.2 L Hct 25.4 L MCV 93.7 MCH 30.3 MCHC 32.3 RDW 15.9 H RDW Differential 51.8 H Plt Count 362 MPV 9.0 Immature Gran % (Auto) 0.200 Neut % (Auto) 59.7 Lymph % (Auto) 29.5 [place] % (Auto) 7.5 Eos % (Auto) 2.8 Baso % (Auto) 0.3 Absolute Neuts (auto) 6.2 Absolute Lymphs (auto) 3.06 Total Counted Not Reportable Diff Path Review Reviewed Sodium 139 Potassium 3.9 Chloride 105 Carbon Dioxide 28.0 Anion Gap 6 BUN 10 Creatinine 0.80 Estim Creat Clear Calc 80.51 Est GFR (MDRD) Af Amer 98 Est GFR (MDRD) Non-Af 81 BUN/Creatinine Ratio 12.5 Glucose 92 Calcium 8.8 Medical Necessity - Tobacco Use Smoking Status: Never smoker Assessment/Plan All Active Problems Open wound of left lower extremity (Acute) Hematoma (Acute) Compartment syndrome of left lower extremity (Acute) Patient to continue current treatment plan with wound vac in place. She will be followed by wound nurse daily. She is to continue to make sure she is using the incentive spirometer. We discussed monitoring for calf pains / tenderness which is difficult as she has had generalized pains / tenderness in the entire lower leg since arriving. Still discussed DVT symptoms and she is to notify nurse of any changes / progressing pains in the calf.
--- NOTE | 2018-12-18 10:12 | CASEMGMT ---
Addendum entered by Nimo Llanos 12/18/18 11:49: KAREY received call from Shira at [facility] and they can accept patient. She will start the pre-cert. SW let patient know this information. Nimo GARRETT PLAST[employer] DESIGN ENGINEER Original Note: KAREY spoke with patient and she gave SW 2 more assisted choices. [facility] in [facility] and [facility] in [place]. KAREY called [facility] and spoke with Shira in admissions. Their phone number is [phone] and fax number is [phone]. KAREY faxed referral to [facility]. Await their response. Nimo GARRETT PLAST[employer] DESIGN ENGINEER
--- NOTE | 2018-12-18 10:39 | PCM.PN.HOSP ---
Patient Problems: Active and Suspected Problems Open wound of left lower extremity (Acute) fasciotomy wounds left medial leg and left lateral leg Hematoma (Acute) Compartment syndrome of left lower extremity (Acute) Subjective: Patient seen and examined. She complains of pain in her left lower extremity, especially with dressing change. She denies any fever, shortness of breath, palpitations or dizziness, chest pain, diarrhea vomiting. Review of systems otherwise negative. Labs and vitals reviewed. Discussed with Dr. horvath about restarting Coumadin and she is in agreement. Vitals/I&O's: Vital Signs Temp Pulse Resp BP Pulse Ox 98.2 F 100 18 102/57 L 94 12/18/18 10:15 12/18/18 10:15 12/18/18 10:15 12/18/18 10:15 12/18/18 10:15 Oxygen Flow Rate (L/min) 2 Oxygen Delivery Method Room Air Weight: 343 lb 11.21 oz Body Mass Index (BMI) 55.7 Finger Stick Blood Glucose 115 Intake and Output for Last 24 Hours 12/16/18 12/17/18 12/18/18 23:59 23:59 23:59 Intake Total 1979 / 1979 840 / 840 240 / 240 Output Total 1600 / 1600 300 / 300 100 / 100 Balance 380 / 380 540 / 540 140 / 140 General: Alert, Oriented x3, Cooperative, HEENT: Atraumatic, PERRLA, EOMI, Normocephalic Oral: Moist Mucosa Neck: Supple, No JVD, Negative Carotid Bruits Lungs: Clear to auscultation, Normal air movement, No rhonchi, No wheeze, No rales Cardiovascular: Regular Rhythm, Normal S1, Normal S2, No murmurs, Tachycardic Abdomen: Bowel Sounds Present, Soft, Non Tender, Non-Distended, No Hepato-splenomegaly Skin: No rashes, No breakdown, - - ecchymotic patches over abdomen, resolving Musculoskeletal: - - LLE in clean bandage; dressing intact. Left DP and PT pulse palpable Lymphatic: No Cervical, Supraclavicular, or Inguinal Adenopathy Neurological: Cranial nerves II-XII grossly intact Psych/Mental Status: Normal Affect, Appropriate, Alert and oriented to time, place, person, mood and affect Laboratory Results 12/16/18 05:48: Diff Path Review Reviewed 12/18/18 05:00: WBC 10.4, RBC 2.71 L, Hgb 8.2 L, Hct 25.4 L, MCV 93.7, MCH 30.3, MCHC 32.3, RDW 15.9 H, RDW Differential 51.8 H, Plt Count 362, MPV 9.0, Immature Gran % (Auto) 0.200, Neut % (Auto) 59.7, Lymph % (Auto) 29.5, [place] % (Auto) 7.5, Eos % (Auto) 2.8, Baso % (Auto) 0.3, Absolute Neuts (auto) 6.2, Absolute Lymphs (auto) 3.06, Total Counted Not Reportable 12/18/18 05:00: Sodium 139, Potassium 3.9, Chloride 105, Carbon Dioxide 28.0, Anion Gap 6, BUN 10, Creatinine 0.80, Estim Creat Clear Calc 80.51, Est GFR (MDRD) Af Amer 98, Est GFR (MDRD) Non-Af 81, BUN/Creatinine Ratio 12.5, Glucose 92, Calcium 8.[address] CT 12/13/18 12:51 IMPRESSION: Medial calf muscle fluid collection measuring 13.5 x 6.3 x 3 cm in size, possibly representing an intramuscular hematoma, although abscess is a consideration in appropriate clinical context. Clinical assessment is recommended, with recommendation to assessment to exclude compartment syndrome. No fracture or dislocation. Electronically Signed: Eric Arnold, at 14:00 EDT Tel , Service support , ADDENDUM: 12/13/18 1423 IMPRESSION: Medial calf muscle fluid collection measuring 13.5 x 6.3 x 3 cm in size, possibly representing an intramuscular hematoma, although abscess is a consideration in appropriate clinical context. Clinical assessment is recommended, with recommendation to assessment to exclude compartment syndrome. No fracture or dislocation. N.B. : The above information has been verbally conveyed by Eric Arnold to [phone], on 12/13/2018 14:18:36 (ET). Electronically Signed: Eric Arnold, at 14:00 EDT Tel , Service support , Current Medications Hydrocodone Bitart/Acetaminophen (Lortab [Replacement] 7.5-325/15) 15 ml PO Q6H PRN PRN Reason: PAIN Last Admin: 12/14/18 08:05 Dose: 15 ml Aripiprazole (Abilify) 2 mg PO DAILY [facility] Last Admin: 12/18/18 09:09 Dose: 2 mg Bupropion HCl (Wellbutrin Xl) 300 mg PO DAILY [facility] Last Admin: 12/18/18 09:08 Dose: 300 mg Dextrose (D50w Syringe) 0 gm IV X1 PRN; Protocol PRN Reason: Hypoglycemia Famotidine (Pepcid) 20 mg PO QHS [facility] Last Admin: 12/17/18 20:58 Dose: 20 mg Ferrous Sulfate (Ferrous Sulfate) 325 mg PO DAILY@0800 [facility] Last Admin: 12/18/18 08:09 Dose: 325 mg Glucagon () 1 mg IM .X1 PRN PRN Reason: Hypoglycemia Hydromorphone HCl (Dilaudid Inj) 1 mg IV Q4H PRN PRN PRN Reason: SEVERE PAIN (6-10/10) Last Admin: 12/18/18 08:59 Dose: 1 mg Hydroxyzine Pamoate (Vistaril Pamoate Capsule) 50 mg PO QHS PRN PRN PRN Reason: SLEEP Last Admin: 12/17/18 20:58 Dose: 50 mg Sodium Chloride () 250 mls @ 15 mls/hr IV .[id number] PRN PRN Reason: SALINE FLUSH Metoprolol Succinate (Toprol Xl (Beta Christin)) 25 mg PO DAILY [facility] Last Admin: 12/18/18 09:08 Dose: 25 mg Metoprolol Tartrate (Lopressor (Beta Christin)) 5 mg IV Q6 [facility] Last Admin: 12/18/18 05:02 Dose: Not Given Pantoprazole Sodium (Protonix) 40 mg PO DAILY [facility] Last Admin: 12/18/18 09:07 Dose: 40 mg Pramipexole Dihydrochloride (Mirapex) 0.25 mg PO TID [facility] Last Admin: 12/18/18 05:02 Dose: 0.25 mg Prednisone () 4 mg PO DAILYCM [facility] Last Admin: 12/18/18 08:08 Dose: 4 mg Sodium Chloride () 5 - 15 ml IV UD PRN PRN Reason: SALINE FLUSH Last Admin: 12/18/18 08:58 Dose: 10 ml Trazodone HCl (Desyrel) 150 mg PO QHS [facility] Last Admin: 12/17/18 20:58 Dose: 150 mg Venlafaxine HCl (Effexor Xr) 225 mg PO DAILY [facility] Last Admin: 12/18/18 09:07 Dose: 225 mg Warfarin Sodium (Coumadin (Pbkc)) 10 mg PO X1 ONE Stop: 12/18/18 17:01 Medical Necessity - Tobacco Use Smoking Status: Never smoker Assessment/Plan All Active Problems Open wound of left lower extremity (Acute) Hematoma (Acute) Compartment syndrome of left lower extremity (Acute) 48-year-old female admitted through the ED with a complaint of left calf pain and swelling. 1.Left calf hematoma and acute compartment syndrome of left calf s/p emergent fasciotomy today is POD 3 coumadin and lovenox on hold s/p transfusion of 2 units of PRBCs; duplex of LE was negative for DVT. on IV morphine prn. Will switch to dilaudid as that gives her more relief than morphine. Will give IV dilaudid for wound vac had wound vac placed yesterday discussed with orthopedic surgery; will resume coumadin today. 2. History of sinus tachycardia: stable. on metoprolol 25mg daily. 3. Acute on chronic anemia due to acute blood loss from hematoma as under 1. s/p transfusion of 2 units of PRBCs Hb today is 8.2 still having seepage from left calf hematoma will monitor 4. History of PE: Coumadin and lovenox on hold. had PE nine years ago; states Coumadin was continued on account of her testing positive for lupus anticoagulant. Coumadin on hold on account of hematoma. patient counselled about risk for PE and DVT in light of history of PE and positive lupus anticoagulant; d discussed with Dr Sawant, will start coumadin today. Will give 10mg once today and check INR. aim is for INR of 2-3 5. History of rheumatoid arthritis on methotrexate and prednisone 6. Restless leg syndrome: on ropinirole 7. Hypertension: controlled. On metoprolol. 8. Super morbid obesity: BMI is 56. complicates care, management and prognosis. DVT prophylaxis:will resume coumadin today. Disposition: awaiting placement Code Visit Inpatient E&M: 31939 Subs Hosp L3
--- NOTE | 2018-12-18 10:47 | PN_ITS ---
Patient Problems: Active and Suspected Problems Open wound of left lower extremity (Acute) fasciotomy wounds left medial leg and left lateral leg Hematoma (Acute) Compartment syndrome of left lower extremity (Acute) Subjective: Patient seen and examined. She complains of pain in her left lower extremity, especially with dressing change. She denies any fever, shortness of breath, palpitations or dizziness, chest pain, diarrhea vomiting. Review of systems otherwise negative. Labs and vitals reviewed. Discussed with Dr. horvath about restarting Coumadin and she is in agreement. Vitals/I&O's: Vital Signs Temp Pulse Resp BP Pulse Ox 98.2 F 100 18 102/57 L 94 12/18/18 10:15 12/18/18 10:15 12/18/18 10:15 12/18/18 10:15 12/18/18 10:15 Oxygen Flow Rate (L/min) 2 Oxygen Delivery Method Room Air Weight: 343 lb 11.21 oz Body Mass Index (BMI) 55.7 Finger Stick Blood Glucose 115 Intake and Output for Last 24 Hours 12/16/18 12/17/18 12/18/18 23:59 23:59 23:59 Intake Total 1979 / 1979 840 / 840 240 / 240 Output Total 1600 / 1600 300 / 300 100 / 100 Balance 380 / 380 540 / 540 140 / 140 General: Alert, Oriented x3, Cooperative, HEENT: Atraumatic, PERRLA, EOMI, Normocephalic Oral: Moist Mucosa Neck: Supple, No JVD, Negative Carotid Bruits Lungs: Clear to auscultation, Normal air movement, No rhonchi, No wheeze, No rales Cardiovascular: Regular Rhythm, Normal S1, Normal S2, No murmurs, Tachycardic Abdomen: Bowel Sounds Present, Soft, Non Tender, Non-Distended, No Hepato- splenomegaly Skin: No rashes, No breakdown, - - ecchymotic patches over abdomen, resolving Musculoskeletal: - - LLE in clean bandage; dressing intact. Left DP and PT pulse palpable Lymphatic: No Cervical, Supraclavicular, or Inguinal Adenopathy Neurological: Cranial nerves II-XII grossly intact Psych/Mental Status: Normal Affect, Appropriate, Alert and oriented to time, place, person, mood and affect Laboratory Results 12/16/18 05:48: Diff Path Review Reviewed 12/18/18 05:00: WBC 10.4, RBC 2.71 L, Hgb 8.2 L, Hct 25.4 L, MCV 93.7, MCH 30.3, MCHC 32.3, RDW 15.9 H, RDW Differential 51.8 H, Plt Count 362, MPV 9.0, Immature Gran % (Auto) 0.200, Neut % (Auto) 59.7, Lymph % (Auto) 29.5, [place] % (Auto) 7.5, Eos % (Auto) 2.8, Baso % (Auto) 0.3, Absolute Neuts (auto) 6.2, Absolute Lymphs (auto) 3.06, Total Counted Not Reportable 12/18/18 05:00: Sodium 139, Potassium 3.9, Chloride 105, Carbon Dioxide 28.0, Anion Gap 6, BUN 10, Creatinine 0.80, Estim Creat Clear Calc 80.51, Est GFR (MDRD) Af Amer 98, Est GFR (MDRD) Non-Af 81, BUN/Creatinine Ratio 12.5, Glucose 92, Calcium 8.[address] Extrem[address] CT 12/13/18 12:51 IMPRESSION: Medial calf muscle fluid collection measuring 13.5 x 6.3 x 3 cm in size, possibly representing an intramuscular hematoma, although abscess is a consideration in appropriate clinical context. Clinical assessment is recommended, with recommendation to assessment to exclude compartment syndrome. No fracture or dislocation. Electronically Signed: Eric Arnold, at 14:00 EDT Tel , Service support , ADDENDUM: 12/13/18 1420 IMPRESSION: Medial calf muscle fluid collection measuring 13.5 x 6.3 x 3 cm in size, possibly representing an intramuscular hematoma, although abscess is a consideration in appropriate clinical context. Clinical assessment is recommended, with recommendation to assessment to exclude compartment syndrome. No fracture or dislocation. N.B. : The above information has been verbally conveyed by Eric Arnold to [phone], on 12/13/2018 14:18:36 (ET). Electronically Signed: Eric Arnold, at 14:00 EDT Tel , Service support , Current Medications Hydrocodone Bitart/Acetaminophen (Lortab [Replacement] 7.5-325/15) 15 ml PO Q6H PRN PRN Reason: PAIN Last Admin: 12/14/18 08:05 Dose: 15 ml Aripiprazole (Abilify) 2 mg PO DAILY [facility] Last Admin: 12/18/18 09:09 Dose: 2 mg Bupropion HCl (Wellbutrin Xl) 300 mg PO DAILY [facility] Last Admin: 12/18/18 09:08 Dose: 300 mg Dextrose (D50w Syringe) 0 gm IV X1 PRN; Protocol PRN Reason: Hypoglycemia Famotidine (Pepcid) 20 mg PO QHS [facility] Last Admin: 12/17/18 20:58 Dose: 20 mg Ferrous Sulfate (Ferrous Sulfate) 325 mg PO DAILY@0800 [facility] Last Admin: 12/18/18 08:09 Dose: 325 mg Glucagon () 1 mg IM .X1 PRN PRN Reason: Hypoglycemia Hydromorphone HCl (Dilaudid Inj) 1 mg IV Q4H PRN PRN PRN Reason: SEVERE PAIN (6-10/10) Last Admin: 12/18/18 08:59 Dose: 1 mg Hydroxyzine Pamoate (Vistaril Pamoate Capsule) 50 mg PO QHS PRN PRN PRN Reason: SLEEP Last Admin: 12/17/18 20:58 Dose: 50 mg Sodium Chloride () 250 mls @ 15 mls/hr IV .[id number] PRN PRN Reason: SALINE FLUSH Metoprolol Succinate (Toprol Xl (Beta Christin)) 25 mg PO DAILY [facility] Last Admin: 12/18/18 09:08 Dose: 25 mg Metoprolol Tartrate (Lopressor (Beta Christin)) 5 mg IV Q6 [facility] Last Admin: 12/18/18 05:02 Dose: Not Given Pantoprazole Sodium (Protonix) 40 mg PO DAILY [facility] Last Admin: 12/18/18 09:07 Dose: 40 mg Pramipexole Dihydrochloride (Mirapex) 0.25 mg PO TID [facility] Last Admin: 12/18/18 05:02 Dose: 0.25 mg Prednisone () 4 mg PO DAILYCM [facility] Last Admin: 12/18/18 08:08 Dose: 4 mg Sodium Chloride () 5 - 15 ml IV UD PRN PRN Reason: SALINE FLUSH Last Admin: 12/18/18 08:58 Dose: 10 ml Trazodone HCl (Desyrel) 150 mg PO QHS [facility] Last Admin: 12/17/18 20:58 Dose: 150 mg Venlafaxine HCl (Effexor Xr) 225 mg PO DAILY [facility] Last Admin: 12/18/18 09:07 Dose: 225 mg Warfarin Sodium (Coumadin (Pbkc)) 10 mg PO X1 ONE Stop: 12/18/18 17:01 Medical Necessity - Tobacco Use Smoking Status: Never smoker Assessment/Plan All Active Problems Open wound of left lower extremity (Acute) Hematoma (Acute) Compartment syndrome of left lower extremity (Acute) 48-year-old female admitted through the ED with a complaint of left calf pain and swelling. 1.Left calf hematoma and acute compartment syndrome of left calf s/p emergent fasciotomy * today is POD 3 * coumadin and lovenox on hold * s/p transfusion of 2 units of PRBCs; * duplex of LE was negative for DVT. * on IV morphine prn. Will switch to dilaudid as that gives her more relief than morphine. Will give IV dilaudid for wound vac * had wound vac placed yesterday * discussed with orthopedic surgery; will resume coumadin today. 2. History of sinus tachycardia: * stable. * on metoprolol 25mg daily. * 3. Acute on chronic anemia due to acute blood loss from hematoma * as under 1. s/p transfusion of 2 units of PRBCs * Hb today is 8.2 * still having seepage from left calf hematoma * will monitor 4. History of PE: * Coumadin and lovenox on hold. * had PE nine years ago; states Coumadin was continued on account of her testing positive for lupus anticoagulant. * Coumadin on hold on account of hematoma. * patient counselled about risk for PE and DVT in light of history of PE and positive lupus anticoagulant; d * discussed with Dr Sawant, will start coumadin today. Will give 10mg once today and check INR. aim is for INR of 2-3 * 5. History of rheumatoid arthritis * on methotrexate and prednisone * 6. Restless leg syndrome: on ropinirole 7. Hypertension: controlled. On metoprolol. 8. Super morbid obesity: BMI is 56. complicates care, management and prognosis. DVT prophylaxis:will resume coumadin today. Disposition: awaiting placement Code Visit Inpatient E&M: 58029 [facility] L3
--- NOTE | 2018-12-18 11:26 | NURSING ---
there is a small amount of drainage noted in the canister. pt is being restarted on coumadin today. will need to monitor for bleeding . wound VAC dressing in place.
[2018-12-18] MEDS: NYSTATIN 500,000 UNIT/5 ML UDC 500000 UNIT PO ×4 (12:33→20:43)
[2018-12-18] MEDS: Fluconazole 100 MG Tablet 200 MG PO (12:33)
[2018-12-18] MEDS: HYDROCODONE/APAP 7.5-325/15ML 15 ML UDC PO ×2 (12:33→23:19)
[2018-12-18] MEDS: Famotidine 20 MG Tablet PO (20:42)
[2018-12-18] MEDS: hydrOXYzine PAM 25 MG Capsule 50 MG PO (20:42)
[2018-12-18] MEDS: traZODone 50 MG Tablet 150 MG PO (20:42)
[2018-12-19] VITALS (12 sets, daily range): BP systolic 93–124; BP diastolic 43–62; PULSE 67–117; RESP 15–18; TEMP 36.7–37.6; O2SAT 93–94
[2018-12-19] MEDS: 0.9% NaCl Peripheral Flush Adult/Peds IV ×4 (00:53→20:26)
[2018-12-19] MEDS: HYDROmorphone 1 MG/ML Syringe IV ×5 (00:53→20:21)
[2018-12-19] MEDS: Pramipexole Di-HCl 0.25 MG Tablet PO ×3 (05:46→21:54)
[2018-12-19 06:23] LABS: International Normalized Ratio 1.1; Prothrombin Time (Protime)PT. 13.5 SECONDS (11.7-14.9)
[2018-12-19 06:24] LABS: Absolute Lymphocyte Count 2.66 X10^3/ul (0.83-4.51); Absolute Neutrophil Count 5.2 X10^3/uL (2.0-7.7); Basophil# 0.03 X10^3/uL; Basophil% 0.3 % (0-1); Eosinophils% 3.2 % (0-5); Hematocrit 26.3 % (37-47); Hemoglobin 8.3 g/dl (12.0-15.0); Lymphocyte # 2.66 X10^3/ul (4.0); Lymphocyte % 28.7 % (19-41); Mean Corp Hgb Conc 31.6 g/gl (32-36); Mean Corpuscular Hgb 29.7 pg (27.0-32.0); Mean Corpuscular Volume 94.3 fL (81-99); Mean Platelet Vol. 9.8 fl (6.2-12.0); Monocyte# 1.09 X10^3/uL; Monocyte% 11.8 % (0-10); Neutrophil # 5.16 X10^3/uL (2.7-7.7); Neutrophil % 55.8 % (47-70); Platelet Count 350 K/mm3 (150-450); RBC Distribution Width CV 15.8 % (11.6-14.6); RBC Distribution Width SD 52.7 fl (35.1-43.9); Red Blood Count 2.79 M/mm3 (4.2-5.4); White Blood Count 9.3 K/mm3 (4.4-11.0)
[2018-12-19 06:25] LABS: POSITIVE COUNT NO; POSITIVE DIFFERENTIAL NO; POSITIVE MORPHOLOGY NO
[2018-12-19 06:26] LABS: Absolute Nucleated RBC Count 0.08 10^3/uL (0-5); NRBC Flagged by Analyzer 0.8 % (0-5)
[2018-12-19] MEDS: Venlafaxine XR 75 MG Capsule 225 MG PO (08:11)
[2018-12-19] MEDS: predniSONE 1 MG Tablet 4 MG PO (08:11)
[2018-12-19] MEDS: ARIPiprazole 2 MG Tablet PO (08:11)
[2018-12-19] MEDS: Ferrous Sulfate 325 MG Tablet PO (08:11)
[2018-12-19] MEDS: NYSTATIN 500,000 UNIT/5 ML UDC 500000 UNIT PO ×4 (08:12→21:54)
[2018-12-19] MEDS: Pantoprazole Sodium 40 MG Tablet PO (08:12)
[2018-12-19] MEDS: Metoprolol(XL)Succ 25 MG Tablet PO (08:12)
[2018-12-19] MEDS: buPROPion (XL) 300 MG TABLET.XL PO (08:12)
[2018-12-19] MEDS: HYDROCODONE/APAP 7.5-325/15ML 15 ML UDC PO ×2 (11:15→15:03)
--- NOTE | 2018-12-19 13:18 | CASEMGMT ---
Received call from Shira at [facility] [place]. Insurance is requesting therapy notes. SW faxed yesterday's therapy notes. Await pre-cert. Nimo GARRETT MSW
--- NOTE | 2018-12-19 15:38 | NURSING ---
pt tolerated the wound VAC dressing change fairly well. states has had some cramping in the left calf. there is a moderate amount of bruising in that area. there is still a clotted area noted to the medial leg wound. otherwise wounds look healthy. next dressing change Saturday.
[2018-12-19] MEDS: diazePAM 2 MG Tablet 4 MG PO ×3 (16:08→21:55)
--- NOTE | 2018-12-19 16:11 | CASEMGMT ---
KAREY spoke with Shira at [facility] and she has not heard back from insurance since sending them the updated therapy notes. She works this weekend as does this KAREY so if she happens to hear from insurance she will call KAREY. KAREY spoke with patient and let her know that we have not heard from insurance yet. KAREY told her she will stay at [facility] until we hear from her insurance. She verbalized understanding. Plan: [facility] pending insurance approval. Nimo GARRETT MSW
--- NOTE | 2018-12-19 16:24 | PCM.PN.HOSP ---
Subjective: Patient Coumadin was resumed. Patient has history of genetic abnormality of hypercoagulable disorder, tetrahydrofolate reductase lupus anticoagulant abnormality. History of PE 9 years ago Complain of pain over the left leg status post fasciotomy Vitals/I&O's: Vital Signs Temp Pulse Resp BP Pulse Ox 98.6 F 96 15 99/52 L 94 12/19/18 14:00 12/19/18 15:45 12/19/18 14:00 12/19/18 14:00 12/19/18 14:00 Oxygen Flow Rate (L/min) 2 Oxygen Delivery Method Room Air Weight: 341 lb 11.464 oz Body Mass Index (BMI) 55.7 Finger Stick Blood Glucose 115 Intake and Output for Last 24 Hours 12/17/18 12/18/18 12/19/18 23:59 23:59 23:59 Intake Total 840 / 840 1080 / 1080 840 / 840 Output Total 300 / 300 101 / 101 150 / 150 Balance 540 / 540 979 / 979 690 / 690 General: Alert, Oriented x3, Cooperative HEENT: Atraumatic, PERRLA, EOMI, Normocephalic Neck: Supple, No JVD, Negative Carotid Bruits Lungs: Clear to auscultation, Normal air movement Cardiovascular: Regular rate, Regular Rhythm, Normal S1, Normal S2, No murmurs Abdomen: Bowel Sounds Present, Soft, Non Tender, Non-Distended Extremities: No edema, Capillary Refill Less than 3 Seconds Skin: No rashes, No breakdown Musculoskeletal: Arthritic Changes, Tenderness - Of left leg dressing was changed by Estefani. As per note, wound looks healthy., - Neurological: Cranial nerves II-XII grossly intact, Deep Tendon Reflexes 2+/4 and Symmetrical Psych/Mental Status: Normal Affect, Appropriate Laboratory Results 12/19/18 05:40: PT 13.5, INR 1.1 12/19/18 05:40: WBC 9.3, RBC 2.79 L, Hgb 8.3 L, Hct 26.3 L, MCV 94.3, MCH 29.7, MCHC 31.6 L, RDW 15.8 H, RDW Differential 52.7 H, Plt Count 350, MPV 9.8, Immature Gran % (Auto) 0.200, Neut % (Auto) 55.8, Lymph % (Auto) 28.7, [place] % (Auto) 11.8 H, Eos % (Auto) 3.2, Baso % (Auto) 0.3, Absolute Neuts (auto) 5.2, Absolute Lymphs (auto) 2.66, Total Counted Not Reportable, Nucleated RBC % 0.8, Absolute Retic 0.08 Current Medications Hydrocodone Bitart/Acetaminophen (Lortab [Replacement] 7.5-325/15) 15 ml PO Q6H PRN PRN Reason: PAIN Last Admin: 12/19/18 15:03 Dose: 15 ml Aripiprazole (Abilify) 2 mg PO DAILY [facility] Last Admin: 12/19/18 08:11 Dose: 2 mg Bupropion HCl (Wellbutrin Xl) 300 mg PO DAILY [facility] Last Admin: 12/19/18 08:12 Dose: 300 mg Dextrose (D50w Syringe) 0 gm IV X1 PRN; Protocol PRN Reason: Hypoglycemia Diazepam (Valium) 4 mg PO 4X/DAY PRN PRN PRN Reason: MUSCLE SPASM Last Admin: 12/19/18 16:08 Dose: 4 mg Famotidine (Pepcid) 20 mg PO QHS [facility] Last Admin: 12/18/18 20:42 Dose: 20 mg Ferrous Sulfate (Ferrous Sulfate) 325 mg PO DAILY@0800 [facility] Last Admin: 12/19/18 08:11 Dose: 325 mg Glucagon () 1 mg IM .X1 PRN PRN Reason: Hypoglycemia Hydromorphone HCl (Dilaudid Inj) 1 mg IV Q4H PRN PRN PRN Reason: SEVERE PAIN (6-10/10) Last Admin: 12/19/18 16:08 Dose: 1 mg Hydroxyzine Pamoate (Vistaril Pamoate Capsule) 50 mg PO QHS PRN PRN PRN Reason: SLEEP Last Admin: 12/18/18 20:42 Dose: 50 mg Sodium Chloride () 250 mls @ 15 mls/hr IV .[id number] PRN PRN Reason: SALINE FLUSH Metoprolol Succinate (Toprol Xl (Beta Christin)) 25 mg PO DAILY [facility] Last Admin: 12/19/18 08:12 Dose: 25 mg Nystatin (Nystatin) 500,000 unit PO 4X/DAY [facility] Last Admin: 12/19/18 14:26 Dose: 500,000 unit Pantoprazole Sodium (Protonix) 40 mg PO DAILY [facility] Last Admin: 12/19/18 08:12 Dose: 40 mg Pramipexole Dihydrochloride (Mirapex) 0.25 mg PO TID [facility] Last Admin: 12/19/18 14:26 Dose: 0.25 mg Prednisone () 4 mg PO DAILYCM [facility] Last Admin: 12/19/18 08:11 Dose: 4 mg Sodium Chloride () 5 - 15 ml IV UD PRN PRN Reason: SALINE FLUSH Last Admin: 12/19/18 12:00 Dose: 10 ml Trazodone HCl (Desyrel) 150 mg PO QHS [facility] Last Admin: 12/18/18 20:42 Dose: 150 mg Venlafaxine HCl (Effexor Xr) 225 mg PO DAILY [facility] Last Admin: 12/19/18 08:11 Dose: 225 mg Medical Necessity - Tobacco Use Smoking Status: Never smoker Assessment/Plan All Active Problems Open wound of left lower extremity (Acute) Hematoma (Acute) Compartment syndrome of left lower extremity (Acute) This is a 48-year-old female with multiple comorbidities including history of PE with hereditary/genetic hypercoagulable disorder due to positive lupus anticoagulant was admitted to ER with complaint of left calf pain and swelling. 1.Left calf hematoma and acute compartment syndrome of left calf s/p emergent fasciotomy today is POD 4 s/p transfusion of 2 units of PRBCs; duplex of LE was negative for DVT. On Dilaudid, switched from morphine. Wound VAC changed today. Coumadin resumed. 2. History of sinus tachycardia: stable. on metoprolol 25mg daily. 3. Acute on chronic anemia due to acute blood loss from hematoma as under 1. s/p transfusion of 2 units of PRBCs H&H is stable about 8.2/25.4. Wound looks healthy as per oozing, wound nurse note. One area had clot which was removed. 4. History of PE: . had PE nine years ago; states Coumadin was continued on account of her testing positive for lupus anticoagulant and tetrahydrofolate reductase inhibitor. patient counselled about risk for PE and DVT in light of history of PE and positive lupus anticoagulant; discussed with Dr Sawant, will start coumadin today. Will give 10mg once today and check INR. aim is for INR of 2-3 5. History of rheumatoid arthritis on methotrexate and prednisone 6. Restless leg syndrome: on ropinirole 7. Hypertension: controlled. On metoprolol. 8. Super morbid obesity: BMI is 56. complicates care, management and prognosis. DVT prophylaxis: Disposition: SNF placement Code Visit Inpatient E&M: 09802 [facility] H[facility] L3
--- NOTE | 2018-12-19 16:33 | PN_ITS ---
Subjective: Patient Coumadin was resumed. Patient has history of genetic abnormality of hypercoagulable disorder, tetrahydrofolate reductase lupus anticoagulant abnormality. History of PE 9 years ago Complain of pain over the left leg status post fasciotomy Vitals/I&O's: Vital Signs Temp Pulse Resp BP Pulse Ox 98.6 F 96 15 99/52 L 94 12/19/18 14:00 12/19/18 15:45 12/19/18 14:00 12/19/18 14:00 12/19/18 14:00 Oxygen Flow Rate (L/min) 2 Oxygen Delivery Method Room Air Weight: 341 lb 11.464 oz Body Mass Index (BMI) 55.7 Finger Stick Blood Glucose 115 Intake and Output for Last 24 Hours 12/17/18 12/18/18 12/19/18 23:59 23:59 23:59 Intake Total 840 / 840 1080 / 1080 840 / 840 Output Total 300 / 300 101 / 101 150 / 150 Balance 540 / 540 979 / 979 690 / 690 General: Alert, Oriented x3, Cooperative HEENT: Atraumatic, PERRLA, EOMI, Normocephalic Neck: Supple, No JVD, Negative Carotid Bruits Lungs: Clear to auscultation, Normal air movement Cardiovascular: Regular rate, Regular Rhythm, Normal S1, Normal S2, No murmurs Abdomen: Bowel Sounds Present, Soft, Non Tender, Non-Distended Extremities: No edema, Capillary Refill Less than 3 Seconds Skin: No rashes, No breakdown Musculoskeletal: Arthritic Changes, Tenderness - Of left leg dressing was changed by Estefani. As per note, wound looks healthy., - Neurological: Cranial nerves II-XII grossly intact, Deep Tendon Reflexes 2+/4 and Symmetrical Psych/Mental Status: Normal Affect, Appropriate Laboratory Results 12/19/18 05:40: PT 13.5, INR 1.1 12/19/18 05:40: WBC 9.3, RBC 2.79 L, Hgb 8.3 L, Hct 26.3 L, MCV 94.3, MCH 29.7, MCHC 31.6 L, RDW 15.8 H, RDW Differential 52.7 H, Plt Count 350, MPV 9.8, Immature Gran % (Auto) 0.200, Neut % (Auto) 55.8, Lymph % (Auto) 28.7, [place] % (Auto) 11.8 H, Eos % (Auto) 3.2, Baso % (Auto) 0.3, Absolute Neuts (auto) 5.2, Absolute Lymphs (auto) 2.66, Total Counted Not Reportable, Nucleated RBC % 0.8, Absolute Retic 0.08 Current Medications Hydrocodone Bitart/Acetaminophen (Lortab [Replacement] 7.5-325/15) 15 ml PO Q6H PRN PRN Reason: PAIN Last Admin: 12/19/18 15:03 Dose: 15 ml Aripiprazole (Abilify) 2 mg PO DAILY [facility] Last Admin: 12/19/18 08:11 Dose: 2 mg Bupropion HCl (Wellbutrin Xl) 300 mg PO DAILY [facility] Last Admin: 12/19/18 08:12 Dose: 300 mg Dextrose (D50w Syringe) 0 gm IV X1 PRN; Protocol PRN Reason: Hypoglycemia Diazepam (Valium) 4 mg PO 4X/DAY PRN PRN PRN Reason: MUSCLE SPASM Last Admin: 12/19/18 16:08 Dose: 4 mg Famotidine (Pepcid) 20 mg PO QHS [facility] Last Admin: 12/18/18 20:42 Dose: 20 mg Ferrous Sulfate (Ferrous Sulfate) 325 mg PO DAILY@0800 [facility] Last Admin: 12/19/18 08:11 Dose: 325 mg Glucagon () 1 mg IM .X1 PRN PRN Reason: Hypoglycemia Hydromorphone HCl (Dilaudid Inj) 1 mg IV Q4H PRN PRN PRN Reason: SEVERE PAIN (6-10/10) Last Admin: 12/19/18 16:08 Dose: 1 mg Hydroxyzine Pamoate (Vistaril Pamoate Capsule) 50 mg PO QHS PRN PRN PRN Reason: SLEEP Last Admin: 12/18/18 20:42 Dose: 50 mg Sodium Chloride () 250 mls @ 15 mls/hr IV .[id number] PRN PRN Reason: SALINE FLUSH Metoprolol Succinate (Toprol Xl (Beta Christin)) 25 mg PO DAILY [facility] Last Admin: 12/19/18 08:12 Dose: 25 mg Nystatin (Nystatin) 500,000 unit PO 4X/DAY [facility] Last Admin: 12/19/18 14:26 Dose: 500,000 unit Pantoprazole Sodium (Protonix) 40 mg PO DAILY [facility] Last Admin: 12/19/18 08:12 Dose: 40 mg Pramipexole Dihydrochloride (Mirapex) 0.25 mg PO TID [facility] Last Admin: 12/19/18 14:26 Dose: 0.25 mg Prednisone () 4 mg PO DAILYCM [facility] Last Admin: 12/19/18 08:11 Dose: 4 mg Sodium Chloride () 5 - 15 ml IV UD PRN PRN Reason: SALINE FLUSH Last Admin: 12/19/18 12:00 Dose: 10 ml Trazodone HCl (Desyrel) 150 mg PO QHS [facility] Last Admin: 12/18/18 20:42 Dose: 150 mg Venlafaxine HCl (Effexor Xr) 225 mg PO DAILY [facility] Last Admin: 12/19/18 08:11 Dose: 225 mg Medical Necessity - Tobacco Use Smoking Status: Never smoker Assessment/Plan All Active Problems Open wound of left lower extremity (Acute) Hematoma (Acute) Compartment syndrome of left lower extremity (Acute) This is a 48-year-old female with multiple comorbidities including history of PE with hereditary/genetic hypercoagulable disorder due to positive lupus anticoagulant was admitted to ER with complaint of left calf pain and swelling. 1.Left calf hematoma and acute compartment syndrome of left calf s/p emergent fasciotomy * today is POD 4 * s/p transfusion of 2 units of PRBCs; * duplex of LE was negative for DVT. * On Dilaudid, switched from morphine. * Wound VAC changed today. * Coumadin resumed. 2. History of sinus tachycardia: * stable. * on metoprolol 25mg daily. 3. Acute on chronic anemia due to acute blood loss from hematoma * as under 1. s/p transfusion of 2 units of PRBCs * H&H is stable about 8.2/25.4. * Wound looks healthy as per oozing, wound nurse note. One area had clot which was removed. 4. History of PE: * . * had PE nine years ago; states Coumadin was continued on account of her testing positive for lupus anticoagulant and tetrahydrofolate reductase inhibitor. * patient counselled about risk for PE and DVT in light of history of PE and positive lupus anticoagulant; * discussed with Dr Sawant, will start coumadin today. Will give 10mg once today and check INR. aim is for INR of 2-3 5. History of rheumatoid arthritis * on methotrexate and prednisone 6. Restless leg syndrome: on ropinirole 7. Hypertension: controlled. On metoprolol. 8. Super morbid obesity: BMI is 56. complicates care, management and prognosis. DVT prophylaxis: Disposition: SNF placement Code Visit Inpatient E&M: 78285 Subs Hosp L3
[2018-12-19] MEDS: hydrOXYzine PAM 25 MG Capsule 50 MG PO (21:54)
[2018-12-19] MEDS: Famotidine 20 MG Tablet PO (21:54)
[2018-12-19] MEDS: traZODone 50 MG Tablet 150 MG PO (21:54)
[2018-12-20] MEDS: HYDROmorphone 1 MG/ML Syringe IV ×4 (00:50→13:40)
[2018-12-20] MEDS: 0.9% NaCl Peripheral Flush Adult/Peds IV ×4 (00:55→13:39)
[2018-12-20 03:00] VITALS: PULSE 95
[2018-12-20 03:45] VITALS: BP 122/59; PULSE 100; RESP 16; TEMP 36.4; O2SAT 95
[2018-12-20] MEDS: diazePAM 2 MG Tablet 4 MG PO ×2 (04:12→13:42)
[2018-12-20] MEDS: Pramipexole Di-HCl 0.25 MG Tablet PO ×2 (05:31→13:39)
[2018-12-20 06:10] LABS: International Normalized Ratio 1.2; Prothrombin Time (Protime)PT. 15.4 SECONDS (11.7-14.9)
[2018-12-20 06:11] LABS: Absolute Lymphocyte Count 3.16 X10^3/ul (0.83-4.51); Absolute Neutrophil Count 5.1 X10^3/uL (2.0-7.7); Basophil# 0.05 X10^3/uL; Basophil% 0.5 % (0-1); Eosinophil# 0.37 X10^3/uL; Eosinophils% 3.6 % (0-5); Hematocrit 26.6 % (37-47); Hemoglobin 8.3 g/dl (12.0-15.0); Lymphocyte # 3.16 X10^3/ul (4.0); Lymphocyte % 31.1 % (19-41); Mean Corp Hgb Conc 31.2 g/gl (32-36); Mean Corpuscular Hgb 29.2 pg (27.0-32.0); Mean Corpuscular Volume 93.7 fL (81-99); Mean Platelet Vol. 9.7 fl (6.2-12.0); Monocyte# 1.49 X10^3/uL; Monocyte% 14.7 % (0-10); Neutrophil # 5.07 X10^3/uL (2.7-7.7); Neutrophil % 49.9 % (47-70); Platelet Count 372 K/mm3 (150-450); RBC Distribution Width CV 15.5 % (11.6-14.6); RBC Distribution Width SD 51.9 fl (35.1-43.9); Red Blood Count 2.84 M/mm3 (4.2-5.4); White Blood Count 10.2 K/mm3 (4.4-11.0)
[2018-12-20 06:12] LABS: POSITIVE COUNT NO; POSITIVE DIFFERENTIAL NO; POSITIVE MORPHOLOGY NO
[2018-12-20 06:13] LABS: Absolute Nucleated RBC Count 0.07 10^3/uL (0-5); NRBC Flagged by Analyzer 0.7 % (0-5)
[2018-12-20 07:02] VITALS: PULSE 99
--- NOTE | 2018-12-20 08:38 | CASEMGMT ---
Received message from Shira [facility] [place]. She received insurance approval. SW notified wire charger. Nimo GARRETT MSW
--- NOTE | 2018-12-20 09:02 | PCM.TXEXTCAR ---
- Diet 12/14/18 16:11 Diet: Regular Diet Is pt able to select menu?: Yes - Routine Orders/Code Status Suppository Type: Dulcolax 10mg Suppository Frequency: Daily PRN Routine Lab Work: CBC, BMP - ON 12/22/18, INR - PT/INR ON 12/21/16, - - Wound(s) LEFT LOWER LEG Wound Type: Surgical Incision left lateral lower leg Wound Type: Open Surgical Wound Dressing Change: apply wound vac on Saturday or as soon as available left medial lower leg Wound Type: Open Surgical Wound Dressing Change: Wet to Dry Dressing - Therapies Weight Bearing: Non weight bearing Extremity Affected:: Left Lower Physical Therapy: Eval and Treat Occupational Therapy: Eval and Treat Speech Therapy: Eval and Treat - Allergies/Procedures Done in Hospital Allergies/Adverse Reactions: Allergies adhesive tape Adverse Reaction (Verified 12/13/18 10:26) Rash - Type of Care/Length of Stay Estimated LOS: Convalescent Care Less Than 30 days Type of Care Needed: Skilled Rehab Potential: Good Prognosis: Good - Additional Orders/Day of Discharge Day of Discharge: 12/20/18 - Dietary and Speech Recommendations Dietitian Recommendations/Changes: Rec Ghassan bid to help w/ skin healing. Rec diet change to 1999 jhonatan Cardiac d/t pmhx and BMI - Follow Up Care Primary Care Physician: Tarah Dubon DO [Primary Care Provider] - Please follow up with your Primary Care Physician in: in 1-2 week Please Follow Up With: Licha Sawant DO When: in 1-2 week for left fasciotomy
--- NOTE | 2018-12-20 09:06 | DS.PCM_ITS ---
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 1.Left calf hematoma and acute compartment syndrome of left calf s/p emergent fasciotomy on 12/13 2018 * today is POD 7 * s/p transfusion of 2 units of PRBCs; * duplex of LE was negative for DVT. * On Dilaudid, switched from morphine. * Wound VAC was changed on 12/19. Patient complain of more pain after wound VAC. The edge of the wound looks everted, most relief from the wound VAC pressure. SNF does not have wound VAC available until Saturday. Advised to remove the wound VAC and wet-to-dry dressing and transferred to SNF. * Coumadin resumed. 2. History of sinus tachycardia: * stable. * on metoprolol 25mg daily. 3. Acute on chronic anemia due to acute blood loss from hematoma * as under 1. s/p transfusion of 2 units of PRBCs * H&H is stable about 8.2/25.4. * Wound looks healthy as per oozing, wound nurse note. One area had clot which was removed. 4. History of PE: * . * had PE nine years ago; states Coumadin was continued on account of her testing positive for lupus anticoagulant and tetrahydrofolate reductase inhibitor. * patient counselled about risk for PE and DVT in light of history of PE and positive lupus anticoagulant; * discussed with Dr Sawant, Coumadin resumed on 12/18. Has been on Coumadin 10 mg for last 2 days but INR still 1.2. * Patient is discharged on Lovenox 1 mg/kg body weight bridging until INR is more than 2. * Follow-up CBC on 12/22 and INR daily in SNF until INR therapeutic. 5. History of rheumatoid arthritis * on methotrexate and prednisone. NSAID, Mobic discontinued 6. Restless leg syndrome: on ropinirole 7. Hypertension: controlled. On metoprolol. 8. Super morbid obesity: BMI is 56. complicates care, management and prognosis. Discharge medication reconciliation done. Discharge follow-up instructions completed. Discharge process discussed with the patient and all questions were answered to patient's satisfaction.. Total time spent, exact 35 minutes on discharge meds reconciliation, examination, review of imaging and blood test and discussion with the patient on follow-up instructions. Laboratory Results 12/20/18 05:26: WBC 10.2, RBC 2.84 L, Hgb 8.3 L, Hct 26.6 L, MCV 93.7, MCH 29.2, MCHC 31.2 L, RDW 15.5 H, RDW Differential 51.9 H, Plt Count 372, MPV 9.7, Immature Gran % (Auto) 0.200, Neut % (Auto) 49.9, Lymph % (Auto) 31.1, [place] % (Auto) 14.7 H, Eos % (Auto) 3.6, Baso % (Auto) 0.5, Absolute Neuts (auto) 5.1, Absolute Lymphs (auto) 3.16, Total Counted Not Reportable, Nucleated RBC % 0.7, Absolute Retic 0.07 12/20/18 05:26: PT 15.4 H, INR 1.2 Subjective: Patient hesitant of taking Lovenox as she gets large bruise at the site of Lovenox. Patient INR is still subtherapeutic, INR 1.2 even though she is getting Coumadin 10 mg daily for last 2 days. - Physical Exam General: Alert, Oriented x3, Cooperative HEENT: Atraumatic, PERRLA, EOMI, Normocephalic Neck: Supple, No JVD, Negative Carotid Bruits Lungs: Clear to auscultation, Normal air movement Cardiovascular: Regular rate, Regular Rhythm, Normal S1, Normal S2, No murmurs Abdomen: Bowel Sounds Present, Soft, Non Tender, Non-Distended Extremities: No edema, Capillary Refill Less than 3 Seconds Skin: Ulcer/ Wound - Left leg fasciotomy wound has wound VAC on both medial and lateral side. Mild tenderness present on the edge of the wound. No signs of infection but wound edges looks everted probably from increased wound VAC pressure Musculoskeletal: No Tenderness to Palpation of Joints or Extremities, Arthritic Changes Lymphatic: No Cervical, Supraclavicular, or Inguinal Adenopathy Neurological: Cranial nerves II-XII grossly intact, Deep Tendon Reflexes 2+/4 and Symmetrical, Neuro grossly intact Psych/Mental Status: Normal Affect, Appropriate Vital Signs Temp Pulse Resp BP Pulse Ox 97.6 F L 99 16 122/59 H 95 12/20/18 03:45 12/20/18 07:02 12/20/18 03:45 12/20/18 03:45 12/20/18 03:45 Oxygen Flow Rate (L/min) 2 Oxygen Delivery Method Room Air Weight: 337 lb 1.388 oz Body Mass Index (BMI) 55.7 Finger Stick Blood Glucose 115 Intake and Output for Last 24 Hours 12/18/18 12/19/18 12/20/18 23:59 23:59 23:59 Intake Total 1080 / 1080 1360 / 1360 120 / 120 Output Total 101 / 101 200 / 200 25 / 25 Balance 979 / 979 1160 / 1160 95 / 95 Laboratory Tests Past 24 Hrs 12/20/18 12/20/18 05:26 05:26 WBC 10.2 RBC 2.84 L Hgb 8.3 L Hct 26.6 L MCV 93.7 MCH 29.2 MCHC 31.2 L RDW 15.5 H RDW Differential 51.9 H Plt Count 372 MPV 9.7 Immature Gran % (Auto) 0.200 Neut % (Auto) 49.9 Lymph % (Auto) 31.1 [place] % (Auto) 14.7 H Eos % (Auto) 3.6 Baso % (Auto) 0.5 Absolute Neuts (auto) 5.1 Absolute Lymphs (auto) 3.16 Total Counted Not Reportable Nucleated RBC % 0.7 Absolute Retic 0.07 PT 15.4 H INR 1.2 Home Medications: Medications to take at Discharge Aripiprazole [Abilify] 2 mg PO DAILY 07/10/18 Methotrexate Sodium [Methotrexate] 14 mg PO FR 07/10/18 Metoprolol Succinate [Toprol Xl] 25 mg PO DAILY 07/10/18 Omeprazole 40 mg PO DAILY 07/10/18 Prednisone 4 mg PO DAILY 07/10/18 Ranitidine [Zantac] 150 mg PO QHS 07/10/18 Venlafaxine HCl [Effexor] 225 mg PO DAILY 07/10/18 Bupropion HCl [Bupropion Xl] 300 mg PO DAILY 08/25/18 Hydroxyzine Pamoate [Vistaril] 50 mg PO PRN PRN 08/25/18 Ropinirole HCl [Ropinirole ER] 2 mg PO QHS 08/25/18 Trazodone ER [Oleptro Er] 150 mg PO QHS 08/25/18 Diazepam [Valium] 4 mg PO 4X/DAY PRN PRN #10 tab 12/20/18 Enoxaparin Sodium [Lovenox] 80 mg SQ BID #0 12/20/18 Ferrous Sulfate 325 mg PO BID #0 12/20/18 Oxycodone HCl/Acetaminophen [Percocet 5-325 mg Tablet] 1 ea PO Q6H PRN #10 tab 12/20/18 Warfarin [Coumadin] 5 mg PO DAILY #0 12/20/18 Following Prescrptions Were Given to Patient: Diazepam [Valium] 4 mg PO 4X/DAY PRN PRN #10 tab PRN Reason: Muscle Spasm Oxycodone HCl/Acetaminophen [Percocet 5-325 mg Tablet] 1 ea PO Q6H PRN #10 tab PRN Reason: Severe Pain (-04/30) Primary Care Physician: Tarah Dubon DO [Primary Care Provider] - Please follow up with your Primary Care Physician in: in 1-2 week Please Follow Up With: Licha Sawant DO When: in 1-2 week for left fasciotomy Medical Necessity - Tobacco Use Smoking Status: Never smoker Meaningful Use Info Meaningful Use Diagnoses (Choose all that apply): None applicable Code Visit Inpatient E&M: 94337 Disch Hosp
--- NOTE | 2018-12-20 09:07 | CASEMGMT ---
Addendum entered by Nimo Llanos 12/20/18 11:49: KAREY spoke with Shira at [facility] and she said they do not have a wound vac. She apologized and said she is new. She thought patient would come with a wound vac. KAREY explained to her that usually how it works is we take the wound vac off before sending patient to the SNF and the SNF then puts a wound vac on. KAREY and charge histotechnologist spoke with Hospitalist and he said SNF could do wet to dry dressing changes until they can get a wound vac. KAREY called Shira back and let her know this information. She asked that KAREY fax orders to [phone]. She also asked that we let her know when patient is leaving [facility]. Convalescent was completed on [facility]. Patient is leaving around 2p. KAREY called Shira and let her know this information Plan: [facility] under skilled level of care on a convalescent stay. Her family will transport her via private vehicle. Nimo PANIAGUA Original Note: KAREY spoke with patient letting her know she was approved to go to [facility]. She thought she could get transportation through family or friend. KAREY encouraged her to do this as it may not be possible for [facility] to arrange transport due to lack of availability. Green sheet placed on chart. Nimo PANIAGUA
[2018-12-20 09:36] VITALS: BP 116/70; PULSE 108; RESP 16; TEMP 36.6; O2SAT 96
[2018-12-20] MEDS: NYSTATIN 500,000 UNIT/5 ML UDC 500000 UNIT PO ×2 (09:37→13:39)
[2018-12-20 09:39] VITALS: PULSE 108
[2018-12-20] MEDS: predniSONE 1 MG Tablet 4 MG PO (09:39)
[2018-12-20] MEDS: Pantoprazole Sodium 40 MG Tablet PO (09:39)
[2018-12-20] MEDS: Venlafaxine XR 75 MG Capsule 225 MG PO (09:39)
[2018-12-20] MEDS: Metoprolol(XL)Succ 25 MG Tablet PO (09:39)
[2018-12-20] MEDS: buPROPion (XL) 300 MG TABLET.XL PO (09:39)
[2018-12-20] MEDS: Ferrous Sulfate 325 MG Tablet PO (09:39)
[2018-12-20] MEDS: ARIPiprazole 2 MG Tablet PO (09:39)
--- NOTE | 2018-12-20 11:06 | PCM.DC.SUM ---
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 1.Left calf hematoma and acute compartment syndrome of left calf s/p emergent fasciotomy on 12/13 2018 today is POD 7 s/p transfusion of 2 units of PRBCs; duplex of LE was negative for DVT. On Dilaudid, switched from morphine. Wound VAC was changed on 12/19. Patient complain of more pain after wound VAC. The edge of the wound looks everted, most relief from the wound VAC pressure. SNF does not have wound VAC available until Saturday. Advised to remove the wound VAC and wet-to-dry dressing and transferred to SNF. Coumadin resumed. 2. History of sinus tachycardia: stable. on metoprolol 25mg daily. 3. Acute on chronic anemia due to acute blood loss from hematoma as under 1. s/p transfusion of 2 units of PRBCs H&H is stable about 8.09/15.4. Wound looks healthy as per oozing, wound nurse note. One area had clot which was removed. 4. History of PE: . had PE nine years ago; states Coumadin was continued on account of her testing positive for lupus anticoagulant and tetrahydrofolate reductase inhibitor. patient counselled about risk for PE and DVT in light of history of PE and positive lupus anticoagulant; discussed with Dr Sawant, Coumadin resumed on 12/18. Has been on Coumadin 10 mg for last 2 days but INR still 1.2. Patient is discharged on Lovenox 1 mg/kg body weight bridging until INR is more than 2. Follow-up CBC on 12/22 and INR daily in SNF until INR therapeutic. 5. History of rheumatoid arthritis on methotrexate and prednisone. NSAID, Mobic discontinued 6. Restless leg syndrome: on ropinirole 7. Hypertension: controlled. On metoprolol. 8. Super morbid obesity: BMI is 56. complicates care, management and prognosis. Discharge medication reconciliation done. Discharge follow-up instructions completed. Discharge process discussed with the patient and all questions were answered to patient's satisfaction.. Total time spent, exact 35 minutes on discharge meds reconciliation, examination, review of imaging and blood test and discussion with the patient on follow-up instructions. Laboratory Results 12/20/18 05:26: WBC 10.2, RBC 2.84 L, Hgb 8.3 L, Hct 26.6 L, MCV 93.7, MCH 29.2, MCHC 31.2 L, RDW 15.5 H, RDW Differential 51.9 H, Plt Count 372, MPV 9.7, Immature Gran % (Auto) 0.200, Neut % (Auto) 49.9, Lymph % (Auto) 31.1, [place] % (Auto) 14.7 H, Eos % (Auto) 3.6, Baso % (Auto) 0.5, Absolute Neuts (auto) 5.1, Absolute Lymphs (auto) 3.16, Total Counted Not Reportable, Nucleated RBC % 0.7, Absolute Retic 0.07 12/20/18 05:26: PT 15.4 H, INR 1.2 Subjective: Patient hesitant of taking Lovenox as she gets large bruise at the site of Lovenox. Patient INR is still subtherapeutic, INR 1.2 even though she is getting Coumadin 10 mg daily for last 2 days. - Physical Exam General: Alert, Oriented x3, Cooperative HEENT: Atraumatic, PERRLA, EOMI, Normocephalic Neck: Supple, No JVD, Negative Carotid Bruits Lungs: Clear to auscultation, Normal air movement Cardiovascular: Regular rate, Regular Rhythm, Normal S1, Normal S2, No murmurs Abdomen: Bowel Sounds Present, Soft, Non Tender, Non-Distended Extremities: No edema, Capillary Refill Less than 3 Seconds Skin: Ulcer/ Wound - Left leg fasciotomy wound has wound VAC on both medial and lateral side. Mild tenderness present on the edge of the wound. No signs of infection but wound edges looks everted probably from increased wound VAC pressure Musculoskeletal: No Tenderness to Palpation of Joints or Extremities, Arthritic Changes Lymphatic: No Cervical, Supraclavicular, or Inguinal Adenopathy Neurological: Cranial nerves II-XII grossly intact, Deep Tendon Reflexes 2+/4 and Symmetrical, Neuro grossly intact Psych/Mental Status: Normal Affect, Appropriate Vital Signs Temp Pulse Resp BP Pulse Ox 97.6 F L 99 16 122/59 H 95 12/20/18 03:45 12/20/18 07:02 12/20/18 03:45 12/20/18 03:45 12/20/18 03:45 Oxygen Flow Rate (L/min) 2 Oxygen Delivery Method Room Air Weight: 337 lb 1.388 oz Body Mass Index (BMI) 55.7 Finger Stick Blood Glucose 115 Intake and Output for Last 24 Hours 12/18/18 12/19/18 12/20/18 23:59 23:59 23:59 Intake Total 1080 / 1080 1360 / 1360 120 / 120 Output Total 101 / 101 200 / 200 25 / 25 Balance 979 / 979 1160 / 1160 95 / 95 Laboratory Tests Past 24 Hrs 12/20/18 12/20/18 05:26 05:26 WBC 10.2 RBC 2.84 L Hgb 8.3 L Hct 26.6 L MCV 93.7 MCH 29.2 MCHC 31.2 L RDW 15.5 H RDW Differential 51.9 H Plt Count 372 MPV 9.7 Immature Gran % (Auto) 0.200 Neut % (Auto) 49.9 Lymph % (Auto) 31.1 [place] % (Auto) 14.7 H Eos % (Auto) 3.6 Baso % (Auto) 0.5 Absolute Neuts (auto) 5.1 Absolute Lymphs (auto) 3.16 Total Counted Not Reportable Nucleated RBC % 0.7 Absolute Retic 0.07 PT 15.4 H INR 1.2 Home Medications: Medications to take at Discharge Aripiprazole [Abilify] 2 mg PO DAILY 07/10/18 Methotrexate Sodium [Methotrexate] 14 mg PO FR 07/10/18 Metoprolol Succinate [Toprol Xl] 25 mg PO DAILY 07/10/18 Omeprazole 40 mg PO DAILY 07/10/18 Prednisone 4 mg PO DAILY 07/10/18 Ranitidine [Zantac] 150 mg PO QHS 07/10/18 Venlafaxine HCl [Effexor] 225 mg PO DAILY 07/10/18 Bupropion HCl [Bupropion Xl] 300 mg PO DAILY 08/25/18 Hydroxyzine Pamoate [Vistaril] 50 mg PO PRN PRN 08/25/18 Ropinirole HCl [Ropinirole ER] 2 mg PO QHS 08/25/18 Trazodone ER [Oleptro Er] 150 mg PO QHS 08/25/18 Diazepam [Valium] 4 mg PO 4X/DAY PRN PRN #10 tab 12/20/18 Enoxaparin Sodium [Lovenox] 80 mg SQ BID #0 12/20/18 Ferrous Sulfate 325 mg PO BID #0 12/20/18 Oxycodone HCl/Acetaminophen [Percocet 5-325 mg Tablet] 1 ea PO Q6H PRN #10 tab 12/20/18 Warfarin [Coumadin] 5 mg PO DAILY #0 12/20/18 Following Prescrptions Were Given to Patient: Diazepam [Valium] 4 mg PO 4X/DAY PRN PRN #10 tab PRN Reason: Muscle Spasm Oxycodone HCl/Acetaminophen [Percocet 5-325 mg Tablet] 1 ea PO Q6H PRN #10 tab PRN Reason: Severe Pain (-04/30) Primary Care Physician: Tarah Dubon DO [Primary Care Provider] - Please follow up with your Primary Care Physician in: in 1-2 week Please Follow Up With: Licha Sawant DO When: in 1-2 week for left fasciotomy Medical Necessity - Tobacco Use Smoking Status: Never smoker Meaningful Use Info Meaningful Use Diagnoses (Choose all that apply): None applicable Code Visit Inpatient E&M: 94773 Disch Hosp
--- NOTE | 2018-12-20 11:45 | NURSING ---
Called report to Violet YARBROUGH at [facility]
[2018-12-20 13:45] VITALS: BP 129/58; PULSE 112; RESP 16; TEMP 36.7; O2SAT 96
--- NOTE | 2018-12-20 14:26 | NURSING ---
[employer] notified of wound vac dc'd. Reference number [id number].
== END 2018-12-20 13:56 | disposition skilled nursing facility (03) | DRG 317 ==
LOC: ED 10:53 → MS3 15:26 → ICU 17:49 → PCU 12-14 15:37
PROVIDERS: Anesthesiology; Orthopaedic Surgery; Admitting Provider Student in an Organized Health Care Education/Training Program; Emergency Provider Emergency Medicine; Family Provider Family Medicine; PCP Family Medicine; Visit Provider Internal Medicine
PROC: 0KNT0ZZ Release Left Lower Leg Muscle, Open Approach (ICD-10-PCS; principal; 2018-12-13 15:00)
DX: T79.A22A Traumatic compartment syndrome of left lower extremity, initial encounter (principal); S80.12XA Contusion of left lower leg, initial encounter; S81.802A Unspecified open wound, left lower leg, initial encounter; X58.XXXA Exposure to other specified factors, initial encounter; D68.62 Lupus anticoagulant syndrome; R00.0 Tachycardia, unspecified; D62 Acute posthemorrhagic anemia; M06.9 Rheumatoid arthritis, unspecified; I10 Essential (primary) hypertension; E66.01 Morbid (severe) obesity due to excess calories; K21.9 Gastro-esophageal reflux disease without esophagitis; E72.12 Methylenetetrahydrofolate reductase deficiency; F32.9 Major depressive disorder, single episode, unspecified; F41.9 Anxiety disorder, unspecified; G25.81 Restless legs syndrome; Z86.718 Personal history of other venous thrombosis and embolism; Z87.01 Personal history of pneumonia (recurrent); Z68.43 Body mass index [BMI] 50.0-59.9, adult; Z79.01 Long term (current) use of anticoagulants; Z79.899 Other long term (current) drug therapy; Z86.711 Personal history of pulmonary embolism
CPT/HCPCS: 36415; 73701; 80048; 82962; 85025; 85610; 85730; 86850; 86900; 86920; 93971; 97110; 97162; 97166; 97530; 97535; 97802; 99284; J7030; J7040; P9016; Q9967; A4216; J2405; J3490

== ENCOUNTER 2019-01-11 21:06 | Emergency (ER) | payer MEDICAID, SELFPAY ==
[2018-12-13 21:59] VITALS: BMI 55.7
[2019-01-11 21:07] VITALS: BP 124/70; PULSE 96; RESP 18; TEMP 36.8; O2SAT 95; BMI 52.1
--- NOTE | 2019-01-11 21:59 | ED.DCSUM_ITS ---
- ER Visit Summary Date of Service: 01/11/19 Chief Complaint: Concern for left leg surgical wound infection History of Present Illness: The patient is a 48 F history of chronic anemia, rheumatoid arthritis and on Coumadin for clotting disorder. Patient in November had a compartment syndrome in her left lower extremity and had a fasciotomy done here. She was in the hospital and then group home for rehab. They have been using a wound VAC which was taken off today. She has previously been on doxycycline. And is now stopped. Today she thought the left medial calf surgical incision smelled funny and had some discharge. She denies any fever. Physical Examination: Middle-aged female no acute distress vital signs are stable afebrile. Does not look septic or toxic. H EENT exam unremarkable. Neck nontender. Lungs clear to auscultation bilaterally. Heart regular rate and rhythm no murmur. Abdomen is soft and nontender. Extremities she is moving all 4. The left foot has a normal DP pulse. On both the medial lateral aspect of her left calf she has fasciotomy incisions. Open wounds that are healing. The left side looks totally normal. The right side does have a foul odor. Balance any specific pus. There is minimal erythema around the surgical wound on the medial left calf. No lymphangitic streaking. No inguinal lymphadenopathy. She has a normal DP pulse in the left foot. No significant pain on palpation. Both wounds appear to be healing appropriately. Test Results: None Emergency Department Course and Treatment: This could be early infection in the left calf medial surgical wound. Patient clinically does not look ill. She will be started on Keflex 500 4 times daily. Follow-up with the wound care center she has appointment tomorrow. Treatment Plan: Keflex 4 times daily for 10 days. Wound care center tomorrow. Disposition: Discharge Impression: Status post compartment syndrome with left lower extremity fascioto my Early wound infection This note was generated with [employer] dictation software. It may contain incorrect words, spelling, and punctuation that were not noted in review of the chart prior to signing ED Disposition - Plan for ED Patient: Referrals: Tarah Dubon DO [Primary Care Provider] -
--- NOTE | 2019-01-11 22:05 | ED.DEP ---
ED Disposition - Plan for ED Patient: Disposition: Home or Assisted Living Instructions: POST OP WOUND CHECK, Infection Prescriptions: Cephalexin [Keflex] 500 mg PO Q6 #40 cap Prescription Printed Referrals: Tarah Dubon DO [Primary Care Provider] - As Needed Additional Instructions: Keflex 1 pill 4 times a day. Follow-up with wound care center with your scheduled appointment tomorrow. Return if wound looks a lot worse, fever or feeling worse.
[2019-01-11] MEDS: Cephalexin 250 MG Capsule 500 MG PO (22:14)
[2019-01-11 22:16] VITALS: RESP 18
== END 2019-01-11 22:30 | disposition home or self-care (01) ==
LOC: ED 22:18
PROVIDERS: Emergency Provider Emergency Medicine; Family Provider Family Medicine; PCP Family Medicine
DX: T81.41XA Infection following a procedure, superficial incisional surgical site, initial encounter (principal); L08.9 Local infection of the skin and subcutaneous tissue, unspecified; D64.9 Anemia, unspecified; M06.9 Rheumatoid arthritis, unspecified; E72.12 Methylenetetrahydrofolate reductase deficiency; Z79.01 Long term (current) use of anticoagulants; Z79.899 Other long term (current) drug therapy
CPT/HCPCS: 99284; A4216

== ENCOUNTER 2019-01-12 09:55 | Outpatient (RCR) | payer MEDICAID, SELFPAY ==
[2019-01-11 21:07] VITALS: BMI 52.1
[2019-01-12 10:38] VITALS: BP 114/71; PULSE 99; RESP 16; TEMP 36.3; BMI 53.4
--- NOTE | 2019-01-12 23:30 | PN.PCM_ITS ---
Type of Wound Date of Service: 01/12/19 Chief Complaint: Open surgical fasciotomy wounds left lateral leg and left medial leg. History of Wound: The patient is a 48 year old F presented to the hospital with increasing pain and swelling left leg. Hematoma and compartment syndrome was diagnosed and she was taken urgently to the OR on 12/13/[address] Sawant for fasciotomies. Medial and lateral leg wounds were created and the wounds were dressed with the VAC at discharge. Today the patient denies fever. Her appetite is good. She has some pain with ambulation. Progress of Wound: Improved. - Physical Exam Vital Signs Temp Pulse Resp BP 97.3 F L 99 16 114/71 01/12/19 10:38 01/12/19 10:38 01/12/19 10:38 01/12/19 10:38 Wound Measurements and Assessment WC - Nurse 1 - General Ulcer Measurement Start: 01/12/19 10:38 Freq: Status: Active Protocol: Activity Type Activity Date Activity User E-Sign Co-Sign Detail Recorded Client Recorded Date Recorded By Document 01/12/19 10:38 MW [id number] 01/12/19 11:07 MW 01/12/19 10:38 Wound Center Nurse 1 [Ulcer Assessment] #2 LLL Lateral -Combined with other wound No -Current Size (cm) - Length 18.5 -Current Size (cm) - Width 3.0 -Current Size (cm) - Depth 0.6 -Total Square Cm 55.50 -Date of Last Picture (Recall this 01/12/19 field) -Photo Taken Yes -Tunneling No -Exudate Amt Small -Exudate Type Serosanguineous -Granulation Amt Small (1-33%) -Granulation Quality Red -Slough/Fibrin Yes -Necrosis Amt Small (1-33%) -Necrotic Tissue Type Adherent Slough -Texture (Kisha-wound Skin Appearance) Assessed, Localized Edema ,Scarring -Moisture (Kisha-wound Skin Appearance Assessed ) -Color (Kisha-wound Skin Appearance) Assessed, Erythema -Temperature (Kisha-wound Skin No Abnormality Appearance) (Pt Warm) -Tenderness on Palpation (Kisha-wound Yes Skin Appearance) -Ulcer Cleansing Soap and Water -Foul Odor after Cleansing No -Anesthetic Used 4% Lidocaine Solution,5% Lidocaine Gel #1 LLL medial -Combined with other wound No -Current Size (cm) - Length 21.0 -Current Size (cm) - Width 6.5 -Current Size (cm) - Depth 2.0 -Total Square Cm 136.50 -Date of Last Picture (Recall this 01/12/19 field) -Photo Taken Yes -Tunneling No -Classification - Thickness Full Thickness without Exposed Support Structure -Exudate Amt Large -Exudate Type Serosanguineous -Wound Margin Distinct, Outline Attached -Granulation Amt Medium (34-66%) -Granulation Quality Red -Slough/Fibrin Yes -Necrosis Amt Small (1-33%) -Necrotic Tissue Type Adherent Slough -Structure Exposed N/A -Texture (Kisha-wound Skin Appearance) Assessed, Localized Edema ,Scarring -Moisture (Kisha-wound Skin Appearance No Abnormality, ) Assessed -Color (Kisha-wound Skin Appearance) Assessed, Erythema -Temperature (Kisha-wound Skin No Abnormality Appearance) (Pt Warm) -Tenderness on Palpation (Kisha-wound Yes Skin Appearance) -Ulcer Cleansing Soap and water -Foul Odor after Cleansing No -Anesthetic Used 4% Lidocaine Solution,5% Lidocaine Gel [Edema Assessment] -Lower Limb Edema Present Yes -Point of measurement (cm from the 47.8 medial instep) -Point of Measurement (cm from the 41.0 medial instep) -Point of measurement (cm from the 49.0 medial instep) -Point of Measurement (cm from the 25.0 medial instep) WC - Nurse 2 - General Ulcer CM Notes Start: 01/12/19 10:38 Freq: Status: Active Protocol: Activity Type Activity Date Activity User E-Sign Co-Sign Detail Recorded Client Recorded Date Recorded By Document 01/12/19 12:12 MARITA [id number] 01/12/19 12:13 MARITA 01/12/19 12:12 Wound Center Nurse 2 [Procedure/Treatment] #2 LLL Lateral -Time 12:12 -Correct Patient Yes -Correct Side, Site, Position Yes -Correct Procedure Yes -Procedure Performed Yes -Type of Procedure Debridement -Clinical Debridement Subcutaneous -Post Debridement Size (cm) - Length 18.5 -Post Debridement Size (cm) - Width 3.1 -Post Debridement Size (cm) - Depth 0.6 -Total Square Cm 57.35 -Wound/Ulcer Outcome Not Healed -Ulcer Cleansing Rinsed/ Irrigated with Saline -Foul Odor after Cleansing No -Bioengineered Tissue No -Bleeding Controlled with Pressure -Offloading No -Treatment Response Procedure Tolerated Well #1 LLL medial -Time 12:12 -Correct Patient Yes -Correct Side, Site, Position Yes -Correct Procedure Yes -Procedure Performed Yes -Type of Procedure Debridement -Clinical Debridement Subcutaneous -Post Debridement Size (cm) - Length 21.1 -Post Debridement Size (cm) - Width 6.5 -Post Debridement Size (cm) - Depth 2.0 -Total Square Cm 137.15 -Wound/Ulcer Outcome Not Healed -Ulcer Cleansing Rinsed/ Irrigated with Saline -Foul Odor after Cleansing No -Bioengineered Tissue No -Bleeding Controlled with Pressure -Offloading No -Treatment Response Procedure Tolerated Well [See Physician Procedure note for Specifics] Pain Scale: 0-10 Numeric [Pain] -Is Patient Pain Free? Yes Debridement Note Post-Debridement Measurements/Treatment WC - Nurse 2 - General Ulcer CM Notes Start: 01/12/19 10:38 Freq: Status: Active Protocol: Activity Type Activity Date Activity User E-Sign Co-Sign Detail Recorded Client Recorded Date Recorded By Document 01/12/19 12:12 MARITA [id number] 01/12/19 12:13 MARITA 01/12/19 12:12 Wound Center Nurse 2 #2 LLL Lateral -Time 12:12 -Correct Patient Yes -Correct Side, Site, Position Yes -Correct Procedure Yes -Procedure Performed Yes -Type of Procedure Debridement -Clinical Debridement Subcutaneous -Post Debridement Size (cm) - Length 18.5 -Post Debridement Size (cm) - Width 3.1 -Post Debridement Size (cm) - Depth 0.6 -Total Square Cm 57.35 -Wound/Ulcer Outcome Not Healed -Ulcer Cleansing Rinsed/ Irrigated with Saline -Foul Odor after Cleansing No -Bioengineered Tissue No -Bleeding Controlled with Pressure -Offloading No -Treatment Response Procedure Tolerated Well #1 LLL medial -Time 12:12 -Correct Patient Yes -Correct Side, Site, Position Yes -Correct Procedure Yes -Procedure Performed Yes -Type of Procedure Debridement -Clinical Debridement Subcutaneous -Post Debridement Size (cm) - Length 21.1 -Post Debridement Size (cm) - Width 6.5 -Post Debridement Size (cm) - Depth 2.0 -Total Square Cm 137.15 -Wound/Ulcer Outcome Not Healed -Ulcer Cleansing Rinsed/ Irrigated with Saline -Foul Odor after Cleansing No -Bioengineered Tissue No -Bleeding Controlled with Pressure -Offloading No -Treatment Response Procedure Tolerated Well Pain Scale: 0-10 Numeric Is Patient Pain Free? Yes Wound debrided: #1 Left medial leg. Laterality: Left Wound Grade/Stage: 3. Type of Debridement: Excisional debridement Anesthesia Used: 4% Lidocaine Solution Depth: Down to and including healthy tissue, in the subcutaneous layer Percentage of wound debrided: 100 Instrument Used: 5mm curette Tissue Removed: subcutaneous tissue. Severity: Fat Layer Exposed Amount of bleeding with debridement: Mild Bleeding Controlled with: Pressure Patient tolerated procedure well - Additional Wound Wound debrided: #2 Left lateral leg. Laterality: Left Wound Grade/Stage: 3. Type of Debridement: Excisional debridement Anesthesia Used: 4% Lidocaine Solution Depth: Down to and including healthy tissue, in the subcutaneous layer Percentage of wound debrided: 100 Instrument Used: 7mm curette Tissue Removed: subcutaneous tissue. Severity: Fat Layer Exposed Amount of bleeding with debridement: Mild Bleeding Controlled with: Pressure Patient tolerated procedure: Patient tolerated procedure well Assessment/Plan Assessment: 1. Left medial leg fasciotomy wound. 2. Left lateral leg fasciotomy wound. 3. Hematoma with compartment syndrome left leg s/p fasciotomies. 4. senior living use of anticoagulation. 5. Lupus. 6. Immunocompromised state due to high risk medication, Methotrexate, for Lupus. Plan: Continue the VAC to both left leg wounds at 150 mmHg continuous suction to be changed three times per week followed by compression mendez wrap. Ok for the patient to ambulate with assist. Try and minimize standing to keep swelling to a minimum. Would benefit from PT for strengthening and ambulation. May need a temporary walker at home. Home Health can assist with the VAC changes three times per week. I anticipate at least 1-2 months of wound care until wounds are more superficial with good granulation tissue and ready for wound closure with skin grafting. Due to the swelling and her medical history of lupus and being on Methotrexate and Prednisone and eventually an immune modulator medication and being on blood thinners which can affect healing, it would be safer to proceed with skin grafting as opposed to proceeding with a delayed secondary wound closure over a drain. After the skin grafts have healed, and the swelling has resolved after at least a year, we can have a discussion about excising the skin grafts with secondary wound closure. At that time, would only do one side and excise one skin graft at a time. Would wait 6 months in between surgeries before proceeding with the other side and excision of the other skin graft with secondary wound closure. Drains would be placed along with compression MENDEZ wraps. At that point, if wound healing problems occur, would return to the VAC until healed or proceed with skin grafting until healed. Encourage nutritional supplementation with protein to help the healing process. Renewed her Percocet for pain (30 tabs) and Flexeril for spasm (30 tabs). Followup 2 weeks.
== END 2019-01-18 23:59 ==
LOC: WC 09:55
PROVIDERS: Family Provider Family Medicine; PCP Family Medicine; Visit Provider Surgery
DX: T79.A22A Traumatic compartment syndrome of left lower extremity, initial encounter (principal); Y83.8 Other surgical procedures as the cause of abnormal reaction of the patient, or of later complication, without mention of misadventure at the time of the procedure; Z79.01 Long term (current) use of anticoagulants; M32.9 Systemic lupus erythematosus, unspecified; M79.89 Other specified soft tissue disorders
CPT/HCPCS: 11042; 11045; 97606; 99213; G0463

== ENCOUNTER 2019-01-23 11:59 | Emergency (ER) | payer MEDICAID, SELFPAY ==
[2019-01-23 12:00] VITALS: BP 121/81; PULSE 117; RESP 19; TEMP 37.2; O2SAT 92; BMI 53.4
--- NOTE | 2019-01-23 12:10 | RAD_ITS ---
STUDY: X-RAY CHEST REASON FOR EXAM: Female, 48 years old. Tachycardia. Chest tightness. TECHNIQUE: AP and lateral views of the chest. COMPARISON: None. FINDINGS: EKG electrodes are seen. Mild degree of vascular congestion. There is no demonstrated pleural abnormality. There is moderate cardiac enlargement. Normal mediastinum and xiomara. Normal visualized pulmonary arteries. Normal visualized aortic arch and descending thoracic aorta. Normal visualized thoracic spine. Normal visualized ribs, clavicles, and shoulders. There is no demonstrated abnormality of the visualized soft tissue structures of the upper abdomen. RAD/Chest PA and Lateral IMPRESSION: Moderate cardiomegaly. Vascular congestion. Electronically Signed: Yan Clement, at 14:26 EDT , Service support ,
--- NOTE | 2019-01-23 12:12 | ED.VIS.GEN ---
History of Present Illness Chief Complaint: Wound Informant: Patient Onset: Yesterday Context: Gradual Onset Timing: Intermittent Quality: Burning Current Severity: Moderate Maximum Severity: Moderate Associated Symptoms: Fever, chills, nausea Narrative: The patient presents to the emergency department with fever, chills, nausea. She has had a complex medical history. She recently had compartment syndrome secondary to hematoma. The patient is on Coumadin. She had fasciotomy done. She could not tolerate the wound VAC, so they have been doing wet-to-dry dressings. Patient was seen here about 12 days ago with some minimal erythema the wound edges and was placed on Keflex. He finished this 2 days ago. States she woke this morning with a fever of 100.1. She states that she was also having some chills. She just felt generally weak. She took 1 of her Percocet and the fever went away. She denies any cough. She denies any vomiting. She denies any urinary symptoms. She states that her wound nurse advised her to come to the emergency department. Prior similar symptoms: Yes Recent Illness/Hospitalization: Yes Past Medical History - Allergies and Home Meds Allergies/Adverse Reactions: Allergies adhesive tape Adverse Reaction (Verified 01/23/19 12:00) Rash Primary Care Physician: Tarah Dubon DO [Primary Care Provider] - Prior records reviewed: Yes Surgical History: - - bilateral knee replacement Lives: With Family Smoking Status: Never smoker Alcohol: Rare Drugs: None - Family History Maternal Family History: Reports: No pertinent history Paternal Family History: Reports: No pertinent history Review of Systems General: Reports: Chills, Fever Eyes: Denies: Visual changes - bilaterally, Diplopia ENT: Denies: Rhinorrhea, Sore throat Cardiovascular: Denies: Chest pain, Palpitations Respiratory: Denies: Dyspnea, Cough, Dyspnea on exertion Gastrointestinal: Reports: Nausea Genitourinary: Denies: Dysuria, Hematuria, Frequency Musculoskeletal: Reports: Myalgias, Arthralgias Skin: Denies: Rash, Wounds Neurological: Denies: Headache, Weakness, Numbness Psych: Denies: Depression Endocrine: Denies: Polyuria Hematologic: Denies: Easy bruising, Easy bleeding Allergy: Denies: Swelling of the mouth Physical Exam Vital Signs/Narrative: Vital Signs Temp Pulse Resp BP Pulse Ox 01/23/19 12:00 98.9 F 117 H 19 H 121/81 H 92 General: Well nourished, Well developed, No Acute Distress Head: Normocephalic, Atraumatic Eyes: Perrl, EOMI ENT: Moist mucous membranes, No rhinorrhea Neck: Supple, Nontender Cardiovascular: Regular rate, Regular rhythm, No murmurs Respiratory: No distress, CTA bilaterally, Chest nontender Abdomen: Soft, Nontender, Nondistended, Normal bowel sounds Back: Nontender, Normal Inspection Extremities: Nontender, Edema - Patient has open areas consistent with fasciotomy. There is minimal erythema at the edges. There is no gross purulence. There is no streaking.. Negative for: No edema Skin: Normal color, No rash Neurological: Alert, Oriented x3, Cranial nerves II-XII grossly intact, Normal Strength, Normal Sensation Psychological: Normal affect, Normal Mood Diagnostic/Tx/Re-eval Chest X-Ray - ED: 2 View, Chronic Changes, No Infiltrates Clinical Impression(s) from Imaging Studies Chest X-Ray 01/23/19 12:10 IMPRESSION: Moderate cardiomegaly. Vascular congestion. Electronically Signed: Yan Clement, at 14:26 EDT , Service support , Abnormal Lab Results 01/23/19 01/23/19 01/23/19 12:44 12:44 12:44 WBC 13.7 H RBC 3.85 L Hgb 10.4 L Hct 34.2 L MCV 88.8 MCH 27.0 MCHC 30.4 L RDW 16.3 H RDW Differential 52.0 H Plt Count 426 MPV 8.8 Immature Gran % (Auto) 0.100 Neut % (Auto) 87.2 H Lymph % (Auto) 8.3 L Taney % (Auto) 3.6 Eos % (Auto) 0.7 Baso % (Auto) 0.1 Absolute Neuts (auto) 11.9 H Absolute Lymphs (auto) 1.13 Total Counted Not Reportable PT 25.8 H INR 2.4 Sodium 134 L Potassium 3.9 Chloride 101 Carbon Dioxide 27.0 Anion Gap 6 BUN 10 Creatinine 0.86 Estim Creat Clear Calc 74.89 Est GFR (MDRD) Af Amer 91 Est GFR (MDRD) Non-Af 75 BUN/Creatinine Ratio 11.7 Glucose 102 Calcium 8.8 Total Bilirubin 0.30 AST 17 ALT 15 Alkaline Phosphatase 99 Total Protein 8.1 Albumin 3.2 Globulin 4.9 H Albumin/Globulin Ratio 0.7 L Urine Color Urine Clarity Urine pH Ur Specific [place] Urine Protein Urine Glucose (UA) Urine Ketones Urine Occult Blood Urine Nitrite Urine Bilirubin Urine Urobilinogen Ur Leukocyte Esterase Urine RBC Urine WBC Ur Squamous Epith Cells Urine Bacteria Urine Mucus 01/23/19 13:45 WBC RBC Hgb Hct MCV MCH MCHC RDW RDW Differential Plt Count MPV Immature Gran % (Auto) Neut % (Auto) Lymph % (Auto) Taney % (Auto) Eos % (Auto) Baso % (Auto) Absolute Neuts (auto) Absolute Lymphs (auto) Total Counted PT INR Sodium Potassium Chloride Carbon Dioxide Anion Gap BUN Creatinine Estim Creat Clear Calc Est GFR (MDRD) Af Amer Est GFR (MDRD) Non-Af BUN/Creatinine Ratio Glucose Calcium Total Bilirubin AST ALT Alkaline Phosphatase Total Protein Albumin Globulin Albumin/Globulin Ratio Urine Color Straw Urine Clarity Clear Urine pH 7.0 Ur Specific [place] 1.005 Urine Protein Negative Urine Glucose (UA) Normal Urine Ketones Negative Urine Occult Blood 10 H Urine Nitrite Negative Urine Bilirubin Negative Urine Urobilinogen Normal Ur Leukocyte Esterase 500 H Urine RBC 0 SEEN Urine WBC 0 SEEN Ur Squamous Epith Cells 0 SEEN Urine Bacteria 0 SEEN Urine Mucus 0 SEEN - Medical Decision Making I did take down patient's dressing and reviewed lower extremity. There is no evidence of cellulitis. The wounds themselves are well approximated and healing. There is minimal drainage. The patient did report a fever. Metabolic work-up was pursued. She does have a mild leukocytosis, but otherwise labs are unremarkable. Urine shows no evidence of infection. Her INR is therapeutic. Her chest x-ray shows some congestion, but there was no focal infiltrate process. She has not had cough. She does not feel short of breath. At this point, I do feel that she is safe for outpatient follow-up. The patient is comfortable with this plan of care. I did on awake counselor her that if her symptoms are worsening over the next 24 hours to return. She will be discharged home. ED Disposition - Plan for ED Patient: Instructions: FEBRILE ILLNESS, Uncertain Cause (Adult) Referrals: Tarah Dubon DO [Primary Care Provider] -
[2019-01-23 13:02] VITALS: BP 116/72; PULSE 105; RESP 18; TEMP 37.4; O2SAT 89
[2019-01-23 13:02] LABS: Absolute Lymphocyte Count 1.13 X10^3/ul (0.83-4.51); Absolute Neutrophil Count 11.9 X10^3/uL (2.0-7.7); Basophil# 0.02 X10^3/uL; Basophil% 0.1 % (0-1); Eosinophil# 0.09 X10^3/uL; Eosinophils% 0.7 % (0-5); Hematocrit 34.2 % (37-47); Hemoglobin 10.4 g/dl (12.0-15.0); Lymphocyte # 1.13 X10^3/ul (4.0); Lymphocyte % 8.3 % (19-41); Mean Corp Hgb Conc 30.4 g/gl (32-36); Mean Corpuscular Volume 88.8 fL (81-99); Mean Platelet Vol. 8.8 fl (6.2-12.0); Monocyte# 0.49 X10^3/uL; Monocyte% 3.6 % (0-10); Neutrophil # 11.93 X10^3/uL (2.7-7.7); Neutrophil % 87.2 % (47-70); Platelet Count 426 K/mm3 (150-450); RBC Distribution Width CV 16.3 % (11.6-14.6); Red Blood Count 3.85 M/mm3 (4.2-5.4); White Blood Count 13.7 K/mm3 (4.4-11.0)
[2019-01-23 13:08] LABS: POSITIVE COUNT NO; POSITIVE DIFFERENTIAL NO; POSITIVE MORPHOLOGY NO
[2019-01-23 13:13] LABS: International Normalized Ratio 2.4; Prothrombin Time (Protime)PT. 25.8 SECONDS (11.7-14.9)
[2019-01-23 13:24] LABS: ALB/GLOB Ratio 0.7 RATIO (0.9-2.4); AST(SGOT) 17 U/L (15-37); Alanine Aminotransfer ALT/SGPT 15 U/L (13-56); Albumin, Serum 3.2 g/dL (3.2-5.0); Alkaline Phosphatase 99 U/L (45-117); Anion Gap 6 (5-15); BUN 10 mg/dL (7-18); BUN/Creat Ratio 11.7 RATIO (10-20); Calcium,Total 8.8 mg/dL (8.5-10.1); Chloride 101 mmol/L (98-107); Creatinine, Serum 0.86 mg/dL (0.55-1.02); EST Glomerular Filtration Rate 75 mL/min (>60); Est Glom Filt Rate - Afr Amer 91 mL/min (>60); Estimated Creatinine Clearance 74.89 ml/min; Globulin 4.9 g/dL (2.2-4.2); Glucose 102 mg/dL (74-106); Potassium 3.9 mmol/L (3.5-5.1); Protein, Total 8.1 g/dL (6.4-8.2); Sodium Level 134 mmol/L (136-145)
[2019-01-23 13:26] VITALS: BP 116/72; PULSE 105; RESP 33; O2SAT 94
[2019-01-23] MEDS: 0.9% Normal Saline 1,000 ML 1000 ML IV (13:27)
[2019-01-23] MEDS: Ondansetron 4 MG/2 ML Vial IV (13:27)
[2019-01-23] MEDS: Morphine 4 MG/ML Syringe IV (13:47)
[2019-01-23 13:54] LABS: Bacteria 0 SEEN /hpf (None Seen); Mucous, Urine 0 SEEN /hpf (<or=2+); Red Blood Cells-Urine 0 SEEN /hpf (0-5); Squamous Epithelial Cells - UA 0 SEEN /hpf (5-10); White Blood Cells 0 SEEN /hpf (0-5)
[2019-01-23 13:59] LABS: Color, Urine Straw (Yellow); Glucose, Dipstick Normal (Normal); Ketone-Dipstick Negative (Negative); Leukocyte Esterase-Dipstick 500 /ul (Negative); Nitrite-Dipstick Negative (Negative); Occult Blood-Urine 10 /ul (Negative); Protein-Dipstick Negative (Negative); Specific Gravity, Urine 1.005 (1.002-1.030); Urine Bilirubin Dipstick Negative (Negative); Urine Clarity Clear (Clear); Urine Urobilinogen Normal (Normal)
[2019-01-23 14:51] VITALS: BP 116/85; PULSE 104; RESP 18; O2SAT 98
== END 2019-01-23 14:52 | disposition home or self-care (01) ==
PROVIDERS: Emergency Provider Emergency Medicine; Family Provider Family Medicine; PCP Family Medicine
DX: Z48.01 Encounter for change or removal of surgical wound dressing (principal); R50.9 Fever, unspecified; Z79.01 Long term (current) use of anticoagulants
CPT/HCPCS: 71046; 80053; 81001; 85025; 85610; 96361; 96374; 96375; 99284; J7030; A4216; J2405

== ENCOUNTER 2019-02-09 10:45 | Outpatient (RCR) | payer MEDICAID, SELFPAY ==
[2019-01-19 01:09] VITALS: BP 114/71; PULSE 99; RESP 16; TEMP 36.3
[2019-01-26 10:19] VITALS: BP 146/59; PULSE 105; RESP 18; TEMP 36.1; BMI 53.4
--- NOTE | 2019-01-26 12:44 | PN.PCM_ITS ---
(1) Ulcer of left lower extremity Status: Chronic Code(s): L97.929 - Non-pressure chronic ulcer of unspecified part of left lower leg with unspecified severity (2) Ulcer of left lower extremity with fat layer exposed Status: Chronic Code(s): L97.922 - Non-pressure chronic ulcer of unspecified part of left lower leg with fat layer exposed (3) Lupus Status: Chronic Code(s): M32.9 - Systemic lupus erythematosus, unspecified (4) senior living current use of anticoagulant Status: Chronic Code(s): Z79.01 - senior living (current) use of anticoagulants (5) Compartment syndrome of left lower extremity Status: Acute Code(s): T79.A22A - Traumatic compartment syndrome of left lower extremity, initial encounter Type of Wound Date of Service: 01/26/19 Chief Complaint: Two fasciotomy incisions to left lower leg History of Wound: The patient is a 48 year old female who presented to the hospital with increasing pain and swelling of her left leg. Hematoma and com partment syndrome was diagnosed and she was taken urgently to the OR on 12/13/[address] Sawant for fasciotomies. Medial and lateral leg wounds were created. She was discharged to an [facility] with a wound VAC and to get PT. One week ago they stopped the wound VAC and started saline wet to dry dressings when she was discharged to home. She is walking with a wheeled walker. She is doing well with the wet to dry dressings. She denies any fevery, chills, nausea and vomiting. Progress of Wound: Improving - Physical Exam Vital Signs Temp Pulse Resp BP 96.9 F L 105 H 18 146/59 H 01/26/19 10:19 01/26/19 10:19 01/26/19 10:19 01/26/19 10:19 General: Alert, Oriented x3, Cooperative HEENT: Atraumatic Oral: Moist Mucosa Lungs: Normal air movement Cardiovascular: Regular rate Extremities: Capillary Refill Less than 3 Seconds, Edema, Peripheral Pulses Normal Skin: Ulcer/ Wound - Medial and lateral opened ulcers of left lower leg Wound Measurements and Assessment WC - Nurse 1 - General Ulcer Measurement Start: 01/26/19 10:19 Freq: Status: Active Protocol: Activity Type Activity Date Activity User E-Sign Co-Sign Detail Recorded Client Recorded Date Recorded By Document 01/26/19 10:19 MW [id number] 01/26/19 10:37 MW 01/26/19 10:19 Wound Center Nurse 1 [Ulcer Assessment] #2 LLL Lateral -Combined with other wound No -Current Size (cm) - Length 14.5 -Current Size (cm) - Width 107 -Current Size (cm) - Depth 0.2 -Total Square Cm 1551.5 -Photo Taken No -Epithelialization Small 1-33% -Tunneling No -Undermining/Tunneling No -Circular Undermining No -Exudate Amt Large -Exudate Type Serosanguineous -Wound Margin Flat & Intact -Granulation Amt Large (67-100%) -Granulation Quality Red -Slough/Fibrin Yes -Necrosis Amt Small (1-33%) -Necrotic Tissue Type Adherent Slough -Structure Exposed N/A -Texture (Kisha-wound Skin Appearance) Assessed, Localized Edema ,Scarring -Moisture (Kisha-wound Skin Appearance No Abnormality, ) Assessed -Color (Kisha-wound Skin Appearance) No Abnormality, Assessed -Temperature (Kisha-wound Skin No Abnormality Appearance) (Pt Warm) -Tenderness on Palpation (Kisha-wound Yes Skin Appearance) -Ulcer Cleansing soap and water -Anesthetic Used 4% Lidocaine Solution,5% Lidocaine Gel #1 LLL medial -Combined with other wound No -Current Size (cm) - Length 19.0 -Current Size (cm) - Width 4.5 -Current Size (cm) - Depth 1.4 -Total Square Cm 85.50 -Photo Taken No -Epithelialization Small 1-33% -Tunneling No -Undermining/Tunneling No -Circular Undermining No -Exudate Amt Large -Exudate Type Serosanguineous -Wound Margin Flat & Intact -Granulation Amt Large (67-100%) -Granulation Quality Red -Slough/Fibrin Yes -Necrosis Amt Small (1-33%) -Necrotic Tissue Type Adherent Slough -Structure Exposed N/A -Texture (Kisha-wound Skin Appearance) Assessed, Localized Edema ,Scarring -Moisture (Kisha-wound Skin Appearance No Abnormality, ) Assessed -Color (Kisha-wound Skin Appearance) No Abnormality, Assessed -Temperature (Kisha-wound Skin No Abnormality Appearance) (Pt Warm) -Tenderness on Palpation (Kisha-wound No Skin Appearance) -Ulcer Cleansing soap and water -Foul Odor after Cleansing No -Anesthetic Used 4% Lidocaine Solution,5% Lidocaine Gel [Edema Assessment] -Lower Limb Edema Present Yes -Left Calf (cm) 48.0 -Left Ankle (cm) 25.2 [facility] - Nurse 2 - General Ulcer CM Notes Start: 01/26/19 10:19 Freq: Status: Active Protocol: Activity Type Activity Date Activity User E-Sign Co-Sign Detail Recorded Client Recorded Date Recorded By Document 01/26/19 11:07 MARITA [id number] 01/26/19 11:08 MARITA 01/26/19 11:07 Wound Center Nurse 2 [Procedure/Treatment] #2 LLL Lateral -Time 11:07 -Correct Patient Yes -Correct Side, Site, Position Yes -Correct Procedure Yes -Procedure Performed Yes -Type of Procedure Debridement -Clinical Debridement Subcutaneous -Post Debridement Size (cm) - Length 15.5 -Post Debridement Size (cm) - Width 1.7 -Post Debridement Size (cm) - Depth 0.4 -Total Square Cm 26.35 -Wound/Ulcer Outcome Not Healed -Ulcer Cleansing Rinsed/ Irrigated with Saline -Foul Odor after Cleansing No -Bioengineered Tissue No -Bleeding Controlled with Pressure -Offloading No -Treatment Response Procedure Tolerated Well #1 LLL medial -Time 11:07 -Correct Patient Yes -Correct Side, Site, Position Yes -Correct Procedure Yes -Procedure Performed Yes -Type of Procedure Debridement -Clinical Debridement Subcutaneous -Post Debridement Size (cm) - Length 19.5 -Post Debridement Size (cm) - Width 5.0 -Post Debridement Size (cm) - Depth 1.4 -Total Square Cm 97.50 -Wound/Ulcer Outcome Not Healed -Ulcer Cleansing Rinsed/ Irrigated with Saline -Foul Odor after Cleansing No -Bioengineered Tissue No -Bleeding Controlled with Pressure -Offloading No -Treatment Response Procedure Tolerated Well [See Physician Procedure note for Specifics] Pain Scale: 0-10 Numeric [Pain] -Is Patient Pain Free? Yes Musculoskeletal: Tenderness Neurological: Neuro grossly intact Psych/Mental Status: Normal Affect, Appropriate Debridement Note Post-Debridement Measurements/Treatment [facility] - Nurse 2 - General Ulcer CM Notes Start: 01/26/19 10:19 Freq: Status: Active Protocol: Activity Type Activity Date Activity User E-Sign Co-Sign Detail Recorded Client Recorded Date Recorded By Document 01/26/19 11:07 MARITA [id number] 01/26/19 11:08 01/26/19 11:07 Wound Center Nurse 2 #2 LLL Lateral -Time 11:07 -Correct Patient Yes -Correct Side, Site, Position Yes -Correct Procedure Yes -Procedure Performed Yes -Type of Procedure Debridement -Clinical Debridement Subcutaneous -Post Debridement Size (cm) - Length 15.5 -Post Debridement Size (cm) - Width 1.7 -Post Debridement Size (cm) - Depth 0.4 -Total Square Cm 26.35 -Wound/Ulcer Outcome Not Healed -Ulcer Cleansing Rinsed/ Irrigated with Saline -Foul Odor after Cleansing No -Bioengineered Tissue No -Bleeding Controlled with Pressure -Offloading No -Treatment Response Procedure Tolerated Well #1 LLL medial -Time 11:07 -Correct Patient Yes -Correct Side, Site, Position Yes -Correct Procedure Yes -Procedure Performed Yes -Type of Procedure Debridement -Clinical Debridement Subcutaneous -Post Debridement Size (cm) - Length 19.5 -Post Debridement Size (cm) - Width 5.0 -Post Debridement Size (cm) - Depth 1.4 -Total Square Cm 97.50 -Wound/Ulcer Outcome Not Healed -Ulcer Cleansing Rinsed/ Irrigated with Saline -Foul Odor after Cleansing No -Bioengineered Tissue No -Bleeding Controlled with Pressure -Offloading No -Treatment Response Procedure Tolerated Well Pain Scale: 0-10 Numeric Is Patient Pain Free? Yes Wound debrided: Left lateral lower leg Type of Debridement: Excisional debridement Anesthesia Used: 5% Lidocaine Gel Depth: Down to and including healthy tissue, in the subcutaneous layer Percentage of wound debrided: 100 Instrument Used: 7mm curette Tissue Removed: Subcutaneous tissue and slough Severity: Fat Layer Exposed Amount of bleeding with debridement: Mild Bleeding Controlled with: Compression and gauze Patient tolerated procedure well - Additional Wound Wound debrided: Left medial lower leg Laterality: Left Type of Debridement: Excisional debridement Anesthesia Used: 5% Lidocaine Gel Depth: Down to and including healthy tissue, in the subcutaneous layer Percentage of wound debrided: 100 Instrument Used: 7mm curette Tissue Removed: Subcutaneous tissue and slough Severity: Fat Layer Exposed Amount of bleeding with debridement: Mild Bleeding Controlled with: Compression and gauze Patient tolerated procedure: Patient tolerated procedure well Assessment/Plan Assessment: 1. Ulcer of left lower extremity. 2. Ulcer of left extremity with fat layer exposed. 3. Lupus. 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 5. Compartment syndrome of left lower extremity Plan: Patient was evaluated in the wound healing center today. A subcutaneous debridement was performed as documented and patient tolerated it well. Her current wound care is saline wet to dry dressings. Her ulcers are showing good granulation tissue. Will use MENDEZ wrap for compression. She has home health on to help with her dressing changes. Instructed it is ok to wash ulcers in shower with soap and water. Follow upin 2 weeks. Code Visit 111xxx-113xx: [id number] Jessica subq tissue 20 sq cm/< Add On Codes: [id number] Jessica subq tissue add-on - x6
[2019-02-09 11:00] VITALS: BP 154/98; PULSE 105; RESP 16; TEMP 36.4; BMI 53.4
--- NOTE | 2019-02-09 12:41 | PN.PCM_ITS ---
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 History of Wound: The patient is a 48 year old F presented to the hospital with increasing pain and swelling left leg. Hematoma and compartment syndrome was diagnosed and she was taken urgently to the OR on 12/13/[address] Sawant for fasciotomies. Medial and lateral leg wounds were created and the wounds were dressed with the VAC at discharge. Wound care is silver dressing changes daily. Today the patient denies fever. Her appetite is good. She has some pain with ambulation. Progress of Wound: Improving - Physical Exam Vital Signs Temp Pulse Resp BP 97.5 F L 105 H 16 154/98 H 02/09/19 11:00 02/09/19 11:00 02/09/19 11:00 02/09/19 11:00 General: Alert, Oriented x3, Cooperative HEENT: Atraumatic Oral: Moist Mucosa Lungs: Normal air movement Cardiovascular: Regular rate Extremities: No edema, Capillary Refill Less than 3 Seconds, Peripheral Pulses Normal Skin: Ulcer/ Wound - Left lateral and left medial leg Wound Measurements and Assessment WC - Nurse 1 - General Ulcer Measurement Start: 01/26/19 10:19 Freq: Status: Active Protocol: Activity Type Activity Date Activity User E-Sign Co-Sign Detail Recorded Client Recorded Date Recorded By Document 02/09/19 11:00 [facility] [id number] 02/09/19 11:12 [facility] 02/09/19 11:00 Wound Center Nurse 1 [Ulcer Assessment] #2 LLL Lateral -Combined with other wound No -Current Size (cm) - Length 14.3 -Current Size (cm) - Width 1.9 -Current Size (cm) - Depth 0.1 -Total Square Cm 27.17 -Date of Last Picture (Recall this 02/09/19 field) -Photo Taken Yes -Epithelialization Small 1-33% -Tunneling No -Undermining/Tunneling No -Circular Undermining No -Exudate Amt Medium -Exudate Type Serous -Wound Margin Distinct, Outline Attached -Granulation Amt Large (67-100%) -Granulation Quality Pale,Red -Slough/Fibrin No -Necrosis Amt None Present (0 %) -Texture (Kisha-wound Skin Appearance) Assessed, Scarring -Moisture (Kisha-wound Skin Appearance Assessed ) -Color (Kisha-wound Skin Appearance) Assessed -Temperature (Kisha-wound Skin No Abnormality Appearance) (Pt Warm) -Tenderness on Palpation (Kisha-wound No Skin Appearance) -Ulcer Cleansing Rinsed/ Irrigated with Saline -Foul Odor after Cleansing No -Anesthetic Used 4% Lidocaine Solution #1 LLL medial -Combined with other wound No -Current Size (cm) - Length 18.3 -Current Size (cm) - Width 4 -Current Size (cm) - Depth 1.1 -Total Square Cm 73.2 -Date of Last Picture (Recall this 02/09/19 field) -Photo Taken Yes -Epithelialization None Present -Tunneling No -Undermining/Tunneling No -Circular Undermining No -Exudate Amt Medium -Exudate Type Serous -Wound Margin Thickened -Granulation Amt Large (67-100%) -Granulation Quality Pale,Red -Slough/Fibrin No -Necrosis Amt None Present (0 %) -Texture (Kisha-wound Skin Appearance) Assessed, Scarring -Moisture (Kisha-wound Skin Appearance Assessed ) -Color (Kisha-wound Skin Appearance) Assessed -Temperature (Kisha-wound Skin No Abnormality Appearance) (Pt Warm) -Tenderness on Palpation (Kisha-wound No Skin Appearance) -Ulcer Cleansing Rinsed/ Irrigated with Saline -Foul Odor after Cleansing No -Anesthetic Used 4% Lidocaine Solution WC - Nurse 2 - General Ulcer CM Notes Start: 01/26/19 10:19 Freq: Status: Active Protocol: Activity Type Activity Date Activity User E-Sign Co-Sign Detail Recorded Client Recorded Date Recorded By Document 02/09/19 11:35 MW [id number] 02/09/19 11:41 MW 02/09/19 11:35 Wound Center Nurse 2 [Procedure/Treatment] #2 LLL Lateral -Time 11:37 -Correct Patient Yes -Correct Side, Site, Position Yes -Correct Procedure Yes -Procedure Performed Yes -Type of Procedure Debridement -Clinical Debridement Subcutaneous -Post Debridement Size (cm) - Length 13.4 -Post Debridement Size (cm) - Width 1.5 -Post Debridement Size (cm) - Depth 0.2 -Total Square Cm 20.10 -Wound/Ulcer Outcome Not Healed -Ulcer Cleansing Rinsed/ Irrigated with Saline -Foul Odor after Cleansing No -Bioengineered Tissue No -Bleeding Controlled with Pressure -Offloading No -Treatment Response Procedure Tolerated Well #1 LLL medial -Time 11:37 -Correct Patient Yes -Correct Side, Site, Position Yes -Correct Procedure Yes -Procedure Performed Yes -Type of Procedure Debridement -Clinical Debridement Subcutaneous -Post Debridement Size (cm) - Length 18.5 -Post Debridement Size (cm) - Width 3.9 -Post Debridement Size (cm) - Depth 1.5 -Total Square Cm 72.15 -Wound/Ulcer Outcome Not Healed -Ulcer Cleansing Rinsed/ Irrigated with Saline -Foul Odor after Cleansing No -Bioengineered Tissue No -Bleeding Controlled with Pressure -Offloading No -Treatment Response Procedure Tolerated Well [See Physician Procedure note for Specifics] Pain Scale: 0-10 Numeric [Pain] -Is Patient Pain Free? Yes Musculoskeletal: No Tenderness to Palpation of Joints or Extremities Neurological: Neuro grossly intact Psych/Mental Status: Normal Affect, Appropriate Debridement Note Post-Debridement Measurements/Treatment WC - Nurse 2 - General Ulcer CM Notes Start: 01/26/19 10:19 Freq: Status: Active Protocol: Activity Type Activity Date Activity User E-Sign Co-Sign Detail Recorded Client Recorded Date Recorded By Document 01/26/19 11:07 [id number] 01/26/19 11:08 Document 02/09/19 11:35 MW [id number] 02/09/19 11:41 MW 01/26/19 02/09/19 11:07 11:35 Wound Center Nurse 2 #2 LLL Lateral -Time 11:07 11:37 -Correct Patient Yes Yes -Correct Side, Site, Position Yes Yes -Correct Procedure Yes Yes -Procedure Performed Yes Yes -Type of Procedure Debridement Debridement -Clinical Debridement Subcutaneous Subcutaneous -Post Debridement Size (cm) - Length 15.5 13.4 -Post Debridement Size (cm) - Width 1.7 1.5 -Post Debridement Size (cm) - Depth 0.4 0.2 -Total Square Cm 26.35 20.10 -Wound/Ulcer Outcome Not Healed Not Healed -Ulcer Cleansing Rinsed/ Rinsed/ Irrigated with Irrigated with Saline Saline -Foul Odor after Cleansing No No -Bioengineered Tissue No No -Bleeding Controlled with Pressure Pressure -Offloading No No -Treatment Response Procedure Procedure Tolerated Well Tolerated Well #1 LLL medial -Time 11:07 11:37 -Correct Patient Yes Yes -Correct Side, Site, Position Yes Yes -Correct Procedure Yes Yes -Procedure Performed Yes Yes -Type of Procedure Debridement Debridement -Clinical Debridement Subcutaneous Subcutaneous -Post Debridement Size (cm) - Length 19.5 18.5 -Post Debridement Size (cm) - Width 5.0 3.9 -Post Debridement Size (cm) - Depth 1.4 1.5 -Total Square Cm 97.50 72.15 -Wound/Ulcer Outcome Not Healed Not Healed -Ulcer Cleansing Rinsed/ Rinsed/ Irrigated with Irrigated with Saline Saline -Foul Odor after Cleansing No No -Bioengineered Tissue No No -Bleeding Controlled with Pressure Pressure -Offloading No No -Treatment Response Procedure Procedure Tolerated Well Tolerated Well Pain Scale: 0-10 Numeric Is Patient Pain Free? Yes Yes Wound debrided: Left medial leg Laterality: Left Type of Debridement: Excisional debridement Anesthesia Used: 5% Lidocaine Gel Depth: Down to and including healthy tissue, in the subcutaneous layer Percentage of wound debrided: 100 Instrument Used: 7mm curette Tissue Removed: Subcutaneous tissue and slough Severity: Fat Layer Exposed Amount of bleeding with debridement: Mild Bleeding Controlled with: Compression and gauze Patient tolerated procedure well - Additional Wound Wound debrided: Left lateral leg Laterality: Left Type of Debridement: Excisional debridement Anesthesia Used: 5% Lidocaine Gel Depth: Down to and including healthy tissue, in the subcutaneous layer Percentage of wound debrided: 100 Instrument Used: 7mm curette Tissue Removed: Subcutaneous tissue and slough Severity: Fat Layer Exposed Amount of bleeding with debridement: Mild Bleeding Controlled with: Compression and gauze Patient tolerated procedure: Patient tolerated procedure well Assessment/Plan Active Problems Ulcer of left lower extremity (Chronic) Ulcer of left lower extremity with fat layer exposed (Chronic) 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 Left medial leg fasciotomy wound. 2. Left lateral leg fasciotomy wound. 3. Hematoma with compartment syndrome left leg s/p fasciotomies. 4. retirement use of anticoagulation. 5. Lupus. 6. Immunocompromised state due to high risk medication, Methotrexate, for Lupus. Plan: Will stop the wet to dry saline dressing changes and start daily silver dressing to the ulcer. Ok for the patient to ambulate with assist. Try and minimize standing to keep swelling to a minimum. Would benefit from PT for strengthening and ambulation. May need a temporary walker at home. She would like further PT. Will order for it to be at home, since she has home health a couple times per week to help with wound management. I anticipate at least 1-2 months of wound care until wounds are more superficial with good granulation tissue and ready for wound closure with skin grafting. Due to the swelling and her medical history of lupus and being on Methotrexate and Prednisone and eventually an immune modulator medication and being on blood thinners which can affect healing, it would be safer to proceed with skin grafting as opposed to proceeding with a delayed secondary wound closure over a drain. After the skin grafts have healed, and the swelling has resolved after at least a year, we can have a discussion about excising the skin grafts with secondary wound closure. At that time, would only do one side and excise one skin graft at a time. Would wait 6 months in between surgeries before proceeding with the other side and excision of the other skin graft with secondary wound closure. Drains would be placed along with compression MENDEZ wraps. At that point, if wound healing problems occur, would return to the VAC until healed or proceed with skin grafting until healed. Encourage nutritional supplementation with protein to help the healing process. Followup 2 weeks. Code Visit 111xxx-113xx: [id number] Jessica subq tissue 20 sq cm/< Add On Codes: [id number] Jessica subq tissue add-on - x4
== END 2019-02-18 23:59 ==
LOC: WC 10:45
PROVIDERS: Family Provider Family Medicine; PCP Family Medicine; Visit Provider Surgery
DX: T79.A22A Traumatic compartment syndrome of left lower extremity, initial encounter (principal); Y83.8 Other surgical procedures as the cause of abnormal reaction of the patient, or of later complication, without mention of misadventure at the time of the procedure; M32.9 Systemic lupus erythematosus, unspecified; L97.822 Non-pressure chronic ulcer of other part of left lower leg with fat layer exposed
CPT/HCPCS: 11042; 11045

== ENCOUNTER 2019-03-16 11:15 | Outpatient (RCR) | payer MEDICAID, SELFPAY ==
[2019-02-19 01:03] VITALS: BP 154/98; PULSE 105; RESP 16; TEMP 36.4
[2019-03-02 11:17] VITALS: BP 127/77; PULSE 92; RESP 20; TEMP 35.9; BMI 53.4
--- NOTE | 2019-03-02 23:44 | PCM.WC.PN ---
Type of Wound Date of Service: 03/02/19 Chief Complaint: Nonhealing fasciotomy ulcers left lateral leg and left medial leg. History of Wound: The patient is a 48 year old F presented to the hospital with increasing pain and swelling left leg. Hematoma and compartment syndrome was diagnosed and she was taken urgently to the OR on 12/13/[address] Sawant for fasciotomies. Medial and lateral leg wounds were created and the wounds were dressed with the VAC at discharge. The VAC has been stopped and Silver dressing changes are being done. Today the patient denies fever. Her appetite is good. She has some pain with ambulation. Progress of Wound: Improved. - Physical Exam Vital Signs Temp Pulse Resp BP 96.7 F L 92 20 H 127/77 H 03/02/19 11:17 03/02/19 11:17 03/02/19 11:17 03/02/19 11:17 Wound Measurements and Assessment WC - Nurse 1 - General Ulcer Measurement Start: 03/02/19 11:16 Freq: Status: Active Protocol: Activity Type Activity Date Activity User E-Sign Co-Sign Detail Recorded Client Recorded Date Recorded By Document 03/02/19 11:17 DL [id number] 03/02/19 11:30 DL 03/02/19 11:17 Wound Center Nurse 1 [Ulcer Assessment] #2 LLL Lateral -Current Size (cm) - Length 10 -Current Size (cm) - Width 1 -Current Size (cm) - Depth 0.1 -Total Square Cm 10 -Photo Taken No -Exudate Amt Small -Exudate Type Serosanguineous -Wound Margin Distinct, Outline Attached -Granulation Amt Medium (34-66%) -Granulation Quality Red -Necrosis Amt Medium (34-66%) -Necrotic Tissue Type Adherent Slough -Structure Exposed N/A -Texture (Iksha-wound Skin Appearance) Localized Edema ,Scarring -Moisture (Kisha-wound Skin Appearance No Abnormality ) -Color (Kisha-wound Skin Appearance) Erythema,Rubor -Temperature (Kisha-wound Skin No Abnormality Appearance) (Pt Warm) -Tenderness on Palpation (Kisha-wound Yes Skin Appearance) -Ulcer Cleansing Wound Cleanser -Foul Odor after Cleansing No -Anesthetic Used 4% Lidocaine Solution,5% Lidocaine Gel #1 LLL medial -Current Size (cm) - Length 17.5 -Current Size (cm) - Width 3.1 -Current Size (cm) - Depth 1.5 -Total Square Cm 54.25 -Photo Taken No -Exudate Amt Medium -Exudate Type Serosanguineous -Wound Margin Distinct, Outline Attached -Granulation Amt Medium (34-66%) -Granulation Quality Red -Necrosis Amt Medium (34-66%) -Necrotic Tissue Type Adherent Slough -Structure Exposed N/A -Texture (Kisha-wound Skin Appearance) Localized Edema ,Scarring -Moisture (Kisha-wound Skin Appearance No Abnormality ) -Color (Kisha-wound Skin Appearance) Erythema,Rubor -Temperature (Kisha-wound Skin No Abnormality Appearance) (Pt Warm) -Tenderness on Palpation (Kisha-wound Yes Skin Appearance) -Ulcer Cleansing Wound Cleanser -Foul Odor after Cleansing No -Anesthetic Used 4% Lidocaine Solution,5% Lidocaine Gel [Edema Assessment] -Right Calf (cm) 47 -Right Ankle (cm) 25 WC - Nurse 2 - General Ulcer CM Notes Start: 03/02/19 11:16 Freq: Status: Active Protocol: Activity Type Activity Date Activity User E-Sign Co-Sign Detail Recorded Client Recorded Date Recorded By Document 03/02/19 11:56 [id number] 03/02/19 12:00 MARITA 03/02/19 11:56 Wound Center Nurse 2 [Procedure/Treatment] #2 LLL Lateral -Time 11:58 -Correct Patient Yes -Correct Side, Site, Position Yes -Correct Procedure Yes -Procedure Performed Yes -Type of Procedure Debridement -Clinical Debridement Subcutaneous -Post Debridement Size (cm) - Length 10 -Post Debridement Size (cm) - Width 1.1 -Post Debridement Size (cm) - Depth 0.1 -Total Square Cm 11.0 -Wound/Ulcer Outcome Not Healed -Ulcer Cleansing Rinsed/ Irrigated with Saline -Foul Odor after Cleansing No -Bioengineered Tissue No -Bleeding Controlled with Pressure -Offloading No -Treatment Response Procedure Tolerated Well #1 LLL medial -Time 11:58 -Correct Patient Yes -Correct Side, Site, Position Yes -Correct Procedure Yes -Procedure Performed Yes -Type of Procedure Debridement -Clinical Debridement Subcutaneous -Post Debridement Size (cm) - Length 17.5 -Post Debridement Size (cm) - Width 3.2 -Post Debridement Size (cm) - Depth 1.0 -Total Square Cm 56.00 -Wound/Ulcer Outcome Not Healed -Ulcer Cleansing Rinsed/ Irrigated with Saline -Foul Odor after Cleansing No -Bioengineered Tissue No -Bleeding Controlled with Pressure -Offloading No -Treatment Response Procedure Tolerated Well [See Physician Procedure note for Specifics] Pain Scale: 0-10 Numeric [Pain] -Is Patient Pain Free? Yes Debridement Note Post-Debridement Measurements/Treatment WC - Nurse 2 - General Ulcer CM Notes Start: 03/02/19 11:16 Freq: Status: Active Protocol: Activity Type Activity Date Activity User E-Sign Co-Sign Detail Recorded Client Recorded Date Recorded By Document 03/02/19 11:56 [id number] 03/02/19 12:00 MARITA 03/02/19 11:56 Wound Center Nurse 2 #2 LLL Lateral -Time 11:58 -Correct Patient Yes -Correct Side, Site, Position Yes -Correct Procedure Yes -Procedure Performed Yes -Type of Procedure Debridement -Clinical Debridement Subcutaneous -Post Debridement Size (cm) - Length 10 -Post Debridement Size (cm) - Width 1.1 -Post Debridement Size (cm) - Depth 0.1 -Total Square Cm 11.0 -Wound/Ulcer Outcome Not Healed -Ulcer Cleansing Rinsed/ Irrigated with Saline -Foul Odor after Cleansing No -Bioengineered Tissue No -Bleeding Controlled with Pressure -Offloading No -Treatment Response Procedure Tolerated Well #1 LLL medial -Time 11:58 -Correct Patient Yes -Correct Side, Site, Position Yes -Correct Procedure Yes -Procedure Performed Yes -Type of Procedure Debridement -Clinical Debridement Subcutaneous -Post Debridement Size (cm) - Length 17.5 -Post Debridement Size (cm) - Width 3.2 -Post Debridement Size (cm) - Depth 1.0 -Total Square Cm 56.00 -Wound/Ulcer Outcome Not Healed -Ulcer Cleansing Rinsed/ Irrigated with Saline -Foul Odor after Cleansing No -Bioengineered Tissue No -Bleeding Controlled with Pressure -Offloading No -Treatment Response Procedure Tolerated Well Pain Scale: 0-10 Numeric Is Patient Pain Free? Yes Wound debrided: #1 Left medial leg. Laterality: Left Wound Grade/Stage: 3. Type of Debridement: Excisional debridement Anesthesia Used: 4% Lidocaine Solution Depth: Down to and including healthy tissue, in the subcutaneous layer Percentage of wound debrided: 100 Instrument Used: 7mm curette Tissue Removed: subcutaneous tissue. Severity: Fat Layer Exposed Amount of bleeding with debridement: Mild Bleeding Controlled with: Pressure Patient tolerated procedure well - a wound culture was obtained today. - Additional Wound Wound debrided: #2 Left lateral leg. Laterality: Left Wound Grade/Stage: 3. Type of Debridement: Excisional debridement Anesthesia Used: 4% Lidocaine Solution Depth: Down to and including healthy tissue, in the subcutaneous layer Percentage of wound debrided: 100 Instrument Used: 7mm curette Tissue Removed: subcutaneous tissue. Severity: Fat Layer Exposed Amount of bleeding with debridement: Mild Bleeding Controlled with: Pressure Patient tolerated procedure: Patient tolerated procedure well - a wound culture was obtained today. Assessment/Plan Assessment: 1. Nonhealing fasciotomy ulcer left medial leg. 2. Nonhealing fasciotomy ulcer left lateral leg. 3. Hematoma with compartment syndrome left leg s/p fasciotomies. 4. retirement use of. 5. Lupus. 6. Immunocompromised state due to high risk medication, Methotrexate, for Lupus. Plan: Continue Silver dressing changes daily followed by a compression mendez wrap. Ok for the patient to ambulate with assist. Try and minimize standing to keep swelling to a minimum. The ulcers are ready for skin grafting. The left lateral leg ulcer is almost healed. Due to the swelling and her medical history of lupus and being on Methotrexate and Prednisone and eventually an immune modulator medication and being on blood thinners which can affect healing, it would be safer to proceed with skin grafting as opposed to proceeding with a delayed secondary wound closure over a drain. After the skin grafts have healed, and the swelling has resolved after at least a year, we can have a discussion about excising the skin grafts with secondary wound closure. At that time, would only do one side and excise one skin graft at a time. Would wait 6 months in between surgeries before proceeding with the other side and excision of the other skin graft with secondary wound closure. Drains would be placed along with compression MENDEZ wraps. At that point, if wound healing problems occur, would return to the VAC until healed or proceed with skin grafting until healed. Encourage nutritional supplementation with protein to help the healing process. Will schedule the surgery for further debridement and skin grafting. Will obtain a wound culture today preop. A positive culture will necessitate antibiotic therapy. Surgery will be scheduled under general anesthesia with a surgical observation overnight stay in the hospital. Patient was informed of the risks and complications of the procedure including alternatives to surgery. These were discussed with her personally. She voices understanding and wishes to proceed. Followup 2 weeks.
--- NOTE | 2019-03-06 16:39 | WC ---
Addendum entered by Nirmala Stern 03/06/19 16:45: also, per arcelia, encouraged pt to purchase OTC probiotic and take BID while on ATBS Original Note: received order for atbs from arcelia huber. called to [facility] in [place] per pt preference. left msg for pt to call facility for update.
[2019-03-16 11:38] VITALS: BP 125/76; PULSE 106; RESP 16; TEMP 36.9; BMI 53.4
--- NOTE | 2019-03-16 17:11 | PN.PCM_ITS ---
(1) Ulcer of left lower extremity Status: Chronic Code(s): L97.929 - Non-pressure chronic ulcer of unspecified part of left lower leg with unspecified severity (2) Ulcer of left lower extremity with fat layer exposed Status: Chronic Code(s): L97.922 - Non-pressure chronic ulcer of unspecified part of left lower leg with fat layer exposed (3) Lupus Status: Chronic Code(s): M32.9 - Systemic lupus erythematosus, unspecified (4) prison current use of anticoagulant Status: Chronic Code(s): Z79.01 - prison (current) use of anticoagulants Type of Wound Date of Service: 03/16/19 Chief Complaint: Nonhealing fasciotomy ulcers left lateral leg and left medial leg. History of Wound: The patient is a 48 year old F presented to the hospital with increasing pain and swelling left leg. Hematoma and compartment syndrome was diagnosed and she was taken urgently to the OR on 12/13/[address] Sawant for fasciotomies. Medial and lateral leg wounds were created and the wounds were dressed with the VAC at discharge. The VAC has been stopped and Silver dressing changes are being done. Wound care will changed to collagen hydrogel on left lateral leg ulcer and moistened Ekaterina covered with adaptic to the left medial ulcer. Today the patient denies fever. Her appetite is good. She has some pain with ambulation. Progress of Wound: Improved. - Physical Exam Vital Signs Temp Pulse Resp BP 98.4 F 106 H 16 125/76 H 03/16/19 11:38 03/16/19 11:38 03/16/19 11:38 03/16/19 11:38 General: Alert, Oriented x3, Cooperative HEENT: Atraumatic Oral: Moist Mucosa Lungs: Normal air movement Cardiovascular: Regular rate Extremities: Capillary Refill Less than 3 Seconds, Edema, Peripheral Pulses Normal Skin: Ulcer/ Wound - Left lateral ulcer is almost healed, left medial ulcer is healing well Wound Measurements and Assessment WC - Nurse 1 - General Ulcer Measurement Start: 03/02/19 11:16 Freq: Status: Active Protocol: Activity Type Activity Date Activity User E-Sign Co-Sign Detail Recorded Client Recorded Date Recorded By Document 03/16/19 11:38 BS [id number] 03/16/19 11:56 BS 03/16/19 11:38 Wound Center Nurse 1 [Ulcer Assessment] #2 LLL Lateral -Combined with other wound No -Current Size (cm) - Length 8.6 -Current Size (cm) - Width 0.3 -Current Size (cm) - Depth 0.1 -Total Square Cm 2.58 -Texture (Kisha-wound Skin Appearance) Assessed -Moisture (Kisha-wound Skin Appearance Assessed ) -Color (Kisha-wound Skin Appearance) Assessed -Temperature (Kisha-wound Skin No Abnormality Appearance) (Pt Warm) -Tenderness on Palpation (Kisha-wound Yes Skin Appearance) -Ulcer Cleansing Soap and water -Anesthetic Used 5% Lidocaine Gel #1 LLL medial -Combined with other wound No -Current Size (cm) - Length 17 -Current Size (cm) - Width 2.7 -Current Size (cm) - Depth 0.5 -Total Square Cm 45.9 -Photo Taken No -Granulation Quality [place],Red -Necrotic Tissue Type Adherent Slough -Texture (Kisha-wound Skin Appearance) Assessed -Moisture (Kisha-wound Skin Appearance Assessed ) -Color (Kisha-wound Skin Appearance) Assessed -Temperature (Kisha-wound Skin No Abnormality Appearance) (Pt Warm) -Tenderness on Palpation (Kisha-wound No Skin Appearance) -Ulcer Cleansing Soap and water -Foul Odor after Cleansing No -Anesthetic Used 5% Lidocaine Gel WC - Nurse 2 - General Ulcer CM Notes Start: 03/02/19 11:16 Freq: Status: Active Protocol: Activity Type Activity Date Activity User E-Sign Co-Sign Detail Recorded Client Recorded Date Recorded By Document 03/16/19 12:12 [email or web address] [id number] 03/16/19 12:23 MARITA 03/16/19 12:12 Wound Center Nurse 2 [Procedure/Treatment] #2 LLL Lateral -Time 12:13 -Correct Patient Yes -Correct Side, Site, Position Yes -Correct Procedure Yes -Procedure Performed Yes -Type of Procedure Debridement -Clinical Debridement Subcutaneous -Post Debridement Size (cm) - Length 8.5 -Post Debridement Size (cm) - Width 0.3 -Post Debridement Size (cm) - Depth 0.2 -Total Square Cm 2.55 -Wound/Ulcer Outcome Not Healed -Ulcer Cleansing Rinsed/ Irrigated with Saline -Foul Odor after Cleansing No -Bioengineered Tissue No -Bleeding Controlled with Pressure -Offloading No -Treatment Response Procedure Tolerated Well #1 LLL medial -Time 12:13 -Correct Patient Yes -Correct Side, Site, Position Yes -Correct Procedure Yes -Procedure Performed Yes -Type of Procedure Debridement -Clinical Debridement Subcutaneous -Post Debridement Size (cm) - Length 17.0 -Post Debridement Size (cm) - Width 2.5 -Post Debridement Size (cm) - Depth 0.5 -Total Square Cm 42.50 -Wound/Ulcer Outcome Not Healed -Ulcer Cleansing Rinsed/ Irrigated with Saline -Foul Odor after Cleansing No -Bleeding Controlled with Pressure -Offloading No -Treatment Response Procedure Tolerated Well [See Physician Procedure note for Specifics] Pain Scale: 0-10 Numeric [Pain] -Is Patient Pain Free? Yes Musculoskeletal: No Tenderness to Palpation of Joints or Extremities Neurological: Neuro grossly intact Psych/Mental Status: Normal Affect, Appropriate Debridement Note Post-Debridement Measurements/Treatment WC - Nurse 2 - General Ulcer CM Notes Start: 03/02/19 11:16 Freq: Status: Active Protocol: Activity Type Activity Date Activity User E-Sign Co-Sign Detail Recorded Client Recorded Date Recorded By Document 03/02/19 11:56 [id number] 03/02/19 12:00 Document 03/16/19 12:12 [id number] 03/16/19 12:23 03/02/19 03/16/19 11:56 12:12 Wound Center Nurse 2 #2 LLL Lateral -Time 11:58 12:13 -Correct Patient Yes Yes -Correct Side, Site, Position Yes Yes -Correct Procedure Yes Yes -Procedure Performed Yes Yes -Type of Procedure Debridement Debridement -Clinical Debridement Subcutaneous Subcutaneous -Post Debridement Size (cm) - Length 10 8.5 -Post Debridement Size (cm) - Width 1.1 0.3 -Post Debridement Size (cm) - Depth 0.1 0.2 -Total Square Cm 11.0 2.55 -Wound/Ulcer Outcome Not Healed Not Healed -Ulcer Cleansing Rinsed/ Rinsed/ Irrigated with Irrigated with Saline Saline -Foul Odor after Cleansing No No -Bioengineered Tissue No No -Bleeding Controlled with Pressure Pressure -Offloading No No -Treatment Response Procedure Procedure Tolerated Well Tolerated Well #1 LLL medial -Time 11:58 12:13 -Correct Patient Yes Yes -Correct Side, Site, Position Yes Yes -Correct Procedure Yes Yes -Procedure Performed Yes Yes -Type of Procedure Debridement Debridement -Clinical Debridement Subcutaneous Subcutaneous -Post Debridement Size (cm) - Length 17.5 17.0 -Post Debridement Size (cm) - Width 3.2 2.5 -Post Debridement Size (cm) - Depth 1.0 0.5 -Total Square Cm 56.00 42.50 -Wound/Ulcer Outcome Not Healed Not Healed -Ulcer Cleansing Rinsed/ Rinsed/ Irrigated with Irrigated with Saline Saline -Foul Odor after Cleansing No No -Bioengineered Tissue No -Bleeding Controlled with Pressure Pressure -Offloading No No -Treatment Response Procedure Procedure Tolerated Well Tolerated Well Pain Scale: 0-10 Numeric Is Patient Pain Free? Yes Yes Wound debrided: Left lateral leg Type of Debridement: Excisional debridement Anesthesia Used: 4% Lidocaine Solution, 5% Lidocaine Gel Depth: Down to and including healthy tissue, in the subcutaneous layer Percentage of wound debrided: 100 Instrument Used: 3mm curette Tissue Removed: Subcutaneous tissue and slough Severity: Limited To Skin Breakdown Amount of bleeding with debridement: Mild Bleeding Controlled with: Pressure, Compression and gauze Patient tolerated procedure well - Additional Wound Wound debrided: Left medial leg Type of Debridement: Excisional debridement Anesthesia Used: 4% Lidocaine Solution, 5% Lidocaine Gel Depth: Down to and including healthy tissue, in the subcutaneous layer Percentage of wound debrided: 100 Instrument Used: 7mm curette Tissue Removed: Subcutaneous tissue and slough Severity: Limited To Skin Breakdown Amount of bleeding with debridement: Mild Bleeding Controlled with: Pressure, Compression and gauze Patient tolerated procedure: Patient tolerated procedure well Assessment/Plan Assessment: 1. Nonhealing fasciotomy ulcer left medial leg. 2. Nonhealing fasciotomy ulcer left lateral leg. 3. Hematoma with compartment syndrome left leg s/p fasciotomies. 4. prison use of. 5. Lupus. 6. Immunocompromised state due to high risk medication, Methotrexate, for Lupus. Plan: Wound care will be collagen hydrogel to the left lateral leg. Will be moistened Ekaterina covered by Adaptic to the left medial leg. She will continue to use Tubigrip for compression. Ok for the patient to ambulate. Try and minimize standing to keep swelling to a minimum. The ulcers are ready for skin grafting. The left lateral leg ulcer is almost healed. Due to the swelling and her medical history of lupus and being on Methotrexate and Prednisone and eventually an immune modulator medication and being on blood thinners which can affect healing, it would be safer to proceed with skin grafting as opposed to proceeding with a delayed secondary wound closure over a drain. After the skin grafts have healed, and the swelling has resolved after at least a year, we can have a discussion about excising the skin grafts with secondary wound closure. At that time, would only do one side and excise one skin graft at a time. Would wait 6 months in between surgeries before proceeding with the other side and excision of the other skin graft with secondary wound closure. Drains would be placed along with compression MENDEZ wraps. At that point, if wound healing problems occur, would return to the VAC until healed or proceed with skin grafting until healed. Encourage nutritional supplementation with protein to help the healing process. Will schedule the surgery for further debridement and skin grafting. Will obtain a wound culture today preop. A positive culture will necessitate antibiotic therapy. Surgery will be scheduled under general anesthesia with a surgical observation overnight stay in the hospital. Patient was informed of the risks and complications of the procedure including alternatives to surgery. These were discussed with her personally. She voices understanding and wishes to proceed. Followup 2 weeks. Code Visit [id number]: [id number] Jessica subq tissue 20 sq cm/< Add On Codes: [id number] Jessica subq tissue add-on - x2
== END 2019-03-21 23:59 ==
LOC: WC 11:15
PROVIDERS: Family Provider Family Medicine; PCP Family Medicine; Referring Provider Surgery; Visit Provider Surgery
DX: T79.A22A Traumatic compartment syndrome of left lower extremity, initial encounter (principal); Y83.8 Other surgical procedures as the cause of abnormal reaction of the patient, or of later complication, without mention of misadventure at the time of the procedure; M32.9 Systemic lupus erythematosus, unspecified; L97.822 Non-pressure chronic ulcer of other part of left lower leg with fat layer exposed; L97.821 Non-pressure chronic ulcer of other part of left lower leg limited to breakdown of skin
CPT/HCPCS: 11042; 11045; 87070; 87075; 87077; 87186; 87205

== ENCOUNTER 2019-04-10 11:23 | Observation (INO) | payer MEDICAID, SELFPAY ==
[2019-04-06 12:01] VITALS: BMI 53.4
[2019-04-10] VITALS (12 sets, daily range): BP systolic 108–138; BP diastolic 56–81; PULSE 84–114; RESP 16–18; TEMP 36.4–37.1; O2SAT 90–100; BMI 53.5
--- NOTE | 2019-04-10 00:07 | PCM.HP.BLA ---
History and Physical Date of Admission: 04/10/19 HISTORY OF PRESENT ILLNESS The patient is a 48 year old F presented to the hospital with increasing pain and swelling left leg. Hematoma and compartment syndrome was diagnosed and she was taken urgently to the OR on 12/13/[address] Sawant for fasciotomies. Medial and lateral leg wounds were created and the wounds were dressed with the VAC at discharge. The VAC has been stopped and Silver dressing changes were started. The left lateral leg ulcer is almost healed and Collagen Hydrogel was started. Today the patient denies fever. Her appetite is good. She has some pain with ambulation. She had a wound culture done on 03/02/19. It showed Acinetobacter baumannii, Enterobacter cloacae, Streptococcus agalactiae, and Anaerobic cocci. She was started on Augmentin and Levaquin. 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 Levaquin. Abilify. Lioresal. Bupropion. Iron sulfate. Folic acid. Vistaril. Methotrexate. Toprol. Omeprazole. Percocet. Prednisone. Zantac. Ropinirole. Trazodone. Effexor. Coumadin. SOCIAL HISTORY Lives: With Family Smoking Status: Never smoker Alcohol: None FAMILY HISTORY Maternal - No pertinent history Paternal - No pertinent history REVIEW OF SYSTEMS Constitutional: Denies: Chills, Fever, Weight Change. Eyes: Denies: Blurred vision. HEENT: Denies: Head Aches, Sinus Congestion, Sinus Drainage. Cardiovascular: Denies: Chest Pain, Palpitations. Respiratory: Denies: Cough, Shortness of Breath, Shortness of breath at rest, Sputum production. Gastrointestinal: Denies: Abdominal Pain, Nausea, Vomiting. Genitourinary: Denies: Dysuria. Musculoskeletal: Reports: Leg Pain, Muscle pain. Denies: Arm Pain, Back Pain, Foot Pain, Hand Pain, Joint Pain, Joint swelling. Skin: Denies: Rash, Wounds. Neurological: Denies: Numbness, Tingling, Focal weakness. Psychiatric: Denies: Anxiety, Depression, Homicidal Ideations, Suicidal Ideations. Hematologic/ Lymphatic: Denies: Easy Bruising, Easy Bleeding PHYSICAL EXAMINATION General: Alert, Oriented x3. HEENT: PERRLA, EOMI. Oral: Moist Mucosa Neck: Supple, Nontender. Lungs: Clear to auscultation. Cardiovascular: Regular Rhythm, Tachycardic Abdomen: Soft, Non-Distended. Skin: Fasciotomy ulcers present on left medial leg and left lateral leg. Mild swelling present. Ulcers are clean with granulation tissue. . Medial leg ulcer measures 16 x 3 x 0.6 cm. Lateral leg ulcer measures 8 x 0.6 x 0.1 cm. Lymphatic: No Cervical, Supraclavicular, or Inguinal Adenopathy Neurological: Cranial nerves II-XII grossly intact Psych/Mental Status: Normal Affect, Appropriate, Alert and oriented to time, place, person, mood and affect ASSESSMENT 1. Nonhealing fasciotomy ulcer left medial leg. 2. Nonhealing fasciotomy ulcer left lateral leg. 3. Hematoma with compartment syndrome left leg s/p fasciotomies. 4. skilled nursing use of anticoagulation. 5. Lupus. 6. Immunocompromised state due to high risk medication, Methotrexate, for Lupus. PLAN Continue Silver dressing changes daily to the left medial leg ulcer and Collagen Hydrogel daily to the left lateral leg ulcer followed by a compression mendez wrap. Ok for the patient to ambulate with assist. Try and minimize standing to keep swelling to a minimum. The ulcers are ready for skin grafting. The left lateral leg ulcer is almost healed. Due to the swelling and her medical history of lupus and being on Methotrexate and Prednisone and eventually an immune modulator medication and being on blood thinners which can affect healing, it would be safer to proceed with skin grafting as opposed to proceeding with a delayed secondary wound closure over a drain. After the skin grafts have healed, and the swelling has resolved after at least a year, we can have a discussion about excising the skin grafts with secondary wound closure. At that time, would only do one side and excise one skin graft at a time. Would wait 6 months in between surgeries before proceeding with the other side and excision of the other skin graft with secondary wound closure. Drains would be placed along with compression MENDEZ wraps. At that point, if wound healing problems occur, would return to the VAC until healed or proceed with skin grafting until healed. Encourage nutritional supplementation with protein to help the healing process. Recommend operative intervention with debridement and skin grafting which is scheduled for tomorrow. Surgery will be done under general anesthesia on an outpatient basis or possibly a surgical observation overnight stay in the hospital. Preop wound culture from 03/02/19 showed Acinetobacter baumannii, Enterobacter cloacae, Streptococcus agalactiae, and Anaerobic cocci. She was started on Augmentin and Levaquin. Patient was informed of the risks and complications of the procedure including alternatives to surgery. These were discussed with her personally. She voices understanding and wishes to proceed.
[2019-04-10] MEDS: Lactated Ringers 1,000 ML 100 ML IV ×2 (08:51→14:34)
[2019-04-10 09:23] LABS: Prothrombin Time Fingerstick 16.1 SEC (11.9-14.4)
[2019-04-10] MEDS: Cefazolin 2 GM in 0.9% Normal Saline 100 ML IV (09:23)
--- NOTE | 2019-04-10 09:25 | UL_PTH ---
PATIENT: RICCARDO VICKERS LOC: [facility] U#:[id number] AGE/SX: 48/F [place]: [facility] [place]04/10/[address]: Dr. Nghia Kent MD : 1970 BED: 1 DIS: 04/11/2019 SPEC #: [id number] RECD: 04/10/19 12:08 STATUS: JASON REQ #: [id number] ODALYS: 04/10/19 09:[address]: Nghia Kent DEPT: SURGICAL PATHOLOGY RECD BY: Donnell Boswell ENTERED: 04/10/19 13:05 SP TYPE: ULCER OTHR DR: Dr. Tarah Dubon, Tissues: ULCER Procedures: Special Stain Group I Surgery Specimen Level III AFB Stain (control) GMS Stain (control) HEADER OPERATION: Surgical prep leg with excisional debridement, nonhealing PRE-OP DIAGNOSIS: Nonhealing fasciotomy ulcer medial leg; nonhealing fasciotomy ulcer lateral leg; hematoma with compartment syndrome left leg status post fasciotomies TISSUE SUBMITTED: Nonhealing fasciotomy ulcer left leg MICROSCOPIC DIAGNOSIS Nonhealing fasciotomy ulcer left leg: Pieces of skin and fibroadipose tissue with focal ulceration, acute inflammation and abscess formation. Special stains for acid fast bacilli and fungi are negative for organisms; matched controls are appropriate. MARTHA:charley 04/13/19 MICROSCOPIC DESCRIPTION Slides are reviewed. GROSS DESCRIPTION Received in fixative is one container labeled with the patient's name and designated nonhealing fasciotomy ulcer left leg. The specimen consists of multiple irregular fragments of pink-quezada skin that in aggregate measure 3.5 x 3 x 1 cm. Insurance Agents Supervisor sections are submitted in one cassette. / AM:charley 04/10/19 TC:2 CPT: 49466, 61042 x2
[2019-04-10] MEDS: Lactated Ringers 1,000 ML 60 ML IV (10:15)
--- NOTE | 2019-04-10 11:16 | OP.PCM_ITS ---
Report of Operation Date of Procedure: 04/10/19 Pre-Operative Diagnosis: 1. Nonhealing fasciotomy ulcer left medial leg. 2. Nonhealing fasciotomy ulcer left lateral leg. 3. Hematoma with compartment syndrome left leg s/p fasciotomies. 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 5. Lupus. 6. Immunocompromised state due to high risk medication, Methotrexate, for Lupus. Post-Operative Diagnosis: Same. Surgery/Procedure Performed:: 1. Surgical preparation left medial leg with excisional debridement nonhealing fasciotomy ulcer and placement of AmnioFill placental connective tissue powder and STSG reconstruction from left flank (48 cm2). 2. Surgical preparation left lateral leg with excisional debridement nonhealing fasciotomy ulcer and placement of AmnioFill placental connective tissue powder and STSG reconstruction from left flank (20 cm2). Description of Surgical Findings:: The patient is a 48 year old F presented to the hospital with increasing pain and swelling left leg. Hematoma and compartment syndrome was diagnosed and she was taken urgently to the OR on 12/13/[address] Sawant for fasciotomies. Medial and lateral leg wounds were created and the wounds were dressed with the VAC at discharge. The VAC has been stopped and Silver dressing changes were started. The left lateral leg ulcer is almost healed and Collagen Hydrogel was started. Today the patient denies fever. Her appetite is good. She has some pain with ambulation. She had a wound culture done on 03/02/19. It showed Acinetobacter baumannii, Enterobacter cloacae, Streptococcus agalactiae, and Anaerobic cocci. She was started on Augmentin and Levaquin. Size of skin graft left medial leg - 16 x 3 cm. Size of skin graft left lateral leg - 10 x 2 cm. I used Ivy absorbable hemostat. Reference Number - [id number]. Lot Number - [id number]. Expiration - October 17, 2023. I used AmnioFill Placental Connective Tissue Powder, (500 mg). Catalog/Reorder Number - [id number]. Lot Number - [id number]. Expiration - November 20, 2023, (350 mg for the left medial leg ulcer and 150 mg for the left lateral leg ulcer). strain technician: Wilmer Olmedo. Type of Anesthesia:: General Specimen's removed: Nonhealing fasciotomy ulcers left leg to Pathology and Microbiology. Drains: Delvis in the left flank. Estimated Blood Loss (mL): 50 ml. Description of Procedure: Patient was taken to OR in supine position and was placed under general anesthesia. The left leg and left flank areas were prepped and draped in the usual fashion. SCD's were placed for DVT prophylaxis. Perioperative antibiotics were given intravenously. Using xylocaine with epinephrine, the left flank donor area was infiltrated. After waiting 5 minutes for the anesthetic to take effect, I made an oblique elliptical excision down into the subcutaneous tissue. The subcutaneous tissue was removed from the undersurface of the dermis including some of the deeper dermis thus fashioning a thick split thickness skin graft. The skin graft was placed in saline. I then excised some of the deeper subcutaneous tissue to aid in wound closure. The wound was irrigated with saline. Hemostasis was obtained with electrocautery. A size 15 Delvis drain was placed through a separate stab incision medially and secured to the skin with 3-0 Nylon suture. I then sprayed Ivy absorbable hemostat into the wound to minimize seroma formation postoperatively. The wound was closed in a multiple layered fashion with 2-0 Vicryl running suture for the Ahsan's fascia. The deep dermis and subcutaneous tissue was approximated with 3-0 Monocryl interrupted sutures. The skin was approximated with 3-0 V-lock unidirectional barbed running subcuticular suture. Antibiotic ointment was applied to the suture line followed by gauze dressing. I then excised and debrided the nonhealing fasciotomy ulcers on both the left medial and left lateral leg areas with a scalpel and also a curette. Tissue was sent to Pathology for analysis to rule out carcinoma and to Microbiology for culture. A positive culture will necessitate antibiotic therapy. The skin graft was placed on stretch and meshed with a size 15 scalpel. The thick split thickness skin grafts were placed on both of the ulcers and secured to the skin edges with surgical clips. At the time of the placement of the skin grafts, I placed AmnioFill placental connective tissue powder onto the ulcers to aid in healing of the skin grafts. I used approximately 350 mg on the left medial leg ulcer and 150 mg on the left lateral leg ulcer. I also used surgical clips for central quilting stabilization. Mepitel nonadherent gauze was applied to the grafts followed by Bactroban ointment. Compression of the graft was obtained with JOE NPWT device. I used two separate devices, one for each graft. Good compression was seen on the devices. This was followed by a compression ky wrap. The size of the skin graft for the left medial leg ulcer was 16 x 3 cm or 48 cm2. The size of the skin graft for the left lateral leg ulcer was 10 x 2 cm or 20 cm2. Patient tolerated the procedure well and was sent to PACU in satisfactory condition. Patient will be sent upstairs for continued postop care. She will be discharged tomorrow when she is tolerating po analgesia. She will keep her left leg elevated during the initial postop period. She will followup in the office next week for a skin graft check and removal of the JOE NPWT devices and for discussion of the pathology report and the microbiology report. A positive culture will necessitate antibiotic therapy. Grafts/Implants Used: AmnioFill Placental Connective Tissue Powder. - Complications None. - Admit VTE Documentation VTE Present on Admission: No - Patient is on Coumadin and is bridging with Lovenox. VTE Mechan Device Prophylaxis: SCD's VTE Pharm Prophylaxis ordered?: Yes Code Visit Surgery Charges CPT - 93829 ICD-10 - L97.922, T14.8xxS, T79.A22S, M32.9, Z79.01, Z79.899 60123 L97.922, T14.8xxS, T79.A22S, M32.9, Z79.01, Z79.899 09094 L97.922, T14.8xxS, T79.A22S, M32.9, Z79.01, Z79.899 55413 L97.922, T14.8xxS, T79.A22S, M32.9, Z79.01, Z79.899
[2019-04-10] MEDS: oxyCODONE 5 MG Tablet 10 MG PO (14:36)
[2019-04-10] MEDS: Hydrocortisone Sod Succinate 100 MG/2 ML Vial IV ×2 (14:37→21:44)
[2019-04-10] MEDS: levoFLOXacin IV 500 MG/100 ML BAG 100 MG IV (15:34)
[2019-04-10] MEDS: HYDROmorphone 1 MG/ML Syringe IV ×2 (15:40→19:53)
[2019-04-10] MEDS: diazePAM 5 MG Tablet PO (18:09)
[2019-04-10] MEDS: Baclofen 10 MG Tablet PO (18:09)
[2019-04-10] MEDS: 0.9% NaCl Peripheral Flush Adult/Peds IV ×2 (19:53→21:46)
[2019-04-10] MEDS: Pramipexole Di-HCl 0.25 MG Tablet PO (21:44)
[2019-04-10] MEDS: Famotidine 20 MG Tablet PO (21:44)
[2019-04-10] MEDS: Docusate Sodium 100 MG Capsule PO (21:44)
[2019-04-10] MEDS: Enoxaparin 80 MG/0.8 ML Syringe SC (21:50)
[2019-04-10] MEDS: traZODone 50 MG Tablet 150 MG PO (21:55)
[2019-04-11] MEDS: HYDROmorphone 1 MG/ML Syringe IV ×2 (00:13→08:43)
[2019-04-11] MEDS: 0.9% NaCl Peripheral Flush Adult/Peds IV ×2 (00:17→05:17)
[2019-04-11] MEDS: Lactated Ringers 1,000 ML 100 ML IV (02:44)
[2019-04-11 02:47] VITALS: BP 123/65; PULSE 90; RESP 16; TEMP 36.4; O2SAT 94
[2019-04-11] MEDS: oxyCODONE 5 MG Tablet 10 MG PO ×2 (05:15→10:39)
[2019-04-11] MEDS: Pramipexole Di-HCl 0.25 MG Tablet PO (05:15)
[2019-04-11] MEDS: Hydrocortisone Sod Succinate 100 MG/2 ML Vial IV (05:16)
[2019-04-11] MEDS: diazePAM 5 MG Tablet PO (07:00)
[2019-04-11 07:09] LABS: Hematocrit 34.2 % (37-47); Hemoglobin 10.2 g/dL (12.0-15.0); Mean Corp Hgb Conc 29.8 g/dL (32-36); Mean Corpuscular Hgb 26.1 pg (27.0-32.0); Mean Corpuscular Volume 87.5 fL (81-99); Mean Platelet Vol. 10.1 fl (6.2-12.0); Platelet Count 312 K/mm3 (150-450); RBC Distribution Width CV 17.2 % (11.6-14.6); RBC Distribution Width SD 53.3 fl (35.1-43.9); Red Blood Count 3.91 M/mm3 (4.2-5.4); White Blood Count 13.2 K/mm3 (4.4-11.0)
[2019-04-11 07:21] LABS: International Normalized Ratio 1.2; Prothrombin Time (Protime)PT. 14.7 SECONDS (11.7-14.9)
[2019-04-11 07:27] LABS: Anion Gap 8 (5-15); BUN 9 mg/dL (7-18); BUN/Creat Ratio 15.1 RATIO (10-20); Calcium,Total 8.8 mg/dL (8.5-10.1); Chloride 106 mmol/L (98-107); EST Glomerular Filtration Rate 114 mL/min (>60); Est Glom Filt Rate - Afr Amer 138 mL/min (>60); Estimated Creatinine Clearance 107.34 ml/min; Glucose 115 mg/dL (74-106); Prealbumin 18.8 mg/dL (20.0-40.0); Sodium Level 143 mmol/L (136-145)
[2019-04-11] MEDS: Ferrous Sulfate 325 MG Tablet PO (08:44)
[2019-04-11] MEDS: Folic Acid 1 MG Tablet PO (08:44)
[2019-04-11 09:35] VITALS: BP 142/74; PULSE 94; RESP 16; TEMP 37; O2SAT 95
[2019-04-11] MEDS: Pantoprazole Sodium 40 MG Tablet PO (10:42)
[2019-04-11] MEDS: Enoxaparin 80 MG/0.8 ML Syringe SC (10:42)
[2019-04-11] MEDS: buPROPion (XL) 300 MG TABLET.XL PO (10:42)
[2019-04-11 10:43] VITALS: PULSE 94
[2019-04-11] MEDS: Metoprolol(XL)Succ 25 MG Tablet PO (10:43)
[2019-04-11] MEDS: Docusate Sodium 100 MG Capsule PO (10:43)
[2019-04-11] MEDS: ARIPiprazole 2 MG Tablet PO (10:43)
[2019-04-11] MEDS: Venlafaxine XR 150 MG Capsule PO (10:47)
[2019-04-11] MEDS: Venlafaxine XR 75 MG Capsule PO (10:48)
--- NOTE | 2019-04-11 10:52 | PCM.PN.SRG ---
Subjective: Postop #1 Patient is resting comfortably. She is tolerating po analgesia. - Physical Exam General: Alert, Oriented x3 HEENT: PERRLA, EOMI Oral: Moist Mucosa Neck: Supple Abdomen: Soft, Non-Distended Skin: Ulcer/ Wound - Skin graft dressing is stable. JOE NPWT device is functional., Incision - left flank incision is dry and intact. No evidence of hematoma. Neurological: Cranial nerves II-XII grossly intact Psych/Mental Status: Normal Affect, Appropriate Vital Signs Temp Pulse Resp BP Pulse Ox 98.6 F 94 16 142/74 H 95 04/11/19 09:35 04/11/19 10:43 04/11/19 09:35 04/11/19 09:35 04/11/19 09:35 Oxygen Flow Rate (L/min) 2 Oxygen Delivery Method Room Air Weight: 331 lb 12.731 oz Body Mass Index (BMI) 53.5 Finger Stick Blood Glucose 115 Intake and Output for Last 24 Hours 04/09/19 04/10/19 04/11/19 23:59 23:59 23:59 Intake Total 1150.33 / 1650.33 1738.33 / 1738.33 Output Total 600 / 2050 3008 / 3008 Balance 550.33 / -399.67 -1269.67 / -1269.67 Microbiology Past 72 Hours 04/10/19 10:16 Gram Stain - Final Tissue - Leg, Left Laboratory Tests Past 24 Hrs 04/11/19 04/11/19 04/11/19 06:23 06:23 06:23 WBC 13.2 H RBC 3.91 L Hgb 10.2 L Hct 34.2 L MCV 87.5 MCH 26.1 L MCHC 29.8 L RDW Std Deviation 53.3 H RDW Coeff of Chepe 17.2 H Plt Count 312 MPV 10.1 PT 14.7 INR 1.2 Sodium 143 Potassium 4.0 Chloride 106 Carbon Dioxide 29.0 Anion Gap 8 BUN 9 Creatinine 0.60 Estim Creat Clear Calc 107.34 Est GFR (MDRD) Af Amer 138 Est GFR (MDRD) Non-Af 114 BUN/Creatinine Ratio 15.1 Glucose 115 H Calcium 8.8 Prealbumin 18.8 L Medical Necessity - Tobacco Use Smoking Status: Never smoker Assessment/Plan All Active Problems Open wound of left lower extremity (Acute) Hematoma (Acute) Compartment syndrome of left lower extremity (Acute) 1. Nonhealing fasciotomy ulcer left medial leg. 2. Nonhealing fasciotomy ulcer left lateral leg. 3. Hematoma with compartment syndrome left leg s/p fasciotomies. 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 5. Lupus. 6. Immunocompromised state due to high risk medication, Methotrexate, for Lupus. 7. s/p surgical preparation left medial leg with excisional debridement nonhealing fasciotomy ulcer and placement of AmnioFill placental connective tissue powder and STSG reconstruction from left flank (48 cm2) and surgical preparation left lateral leg with excisional debridement nonhealing fasciotomy ulcer and placement of AmnioFill placental connective tissue powder and STSG reconstruction from left flank (20 cm2). Patient is tolerating po analgesia. JOE NPWT is functional. Prealbumin 18.8. Encourage nutritional supplementation with protein to help the healing process. Discharge home today. Keep left leg elevated when sitting. Operative culture negative thus far. Will continue to treat for her preop culture of Acinetobacter baumannii, Enterobacter cloacae, Streptococcus agalactiae, and Anaerobic cocci with Augmentin and Levaquin. Will add Diflucan while she is on antibiotics. Wrote scripts for Augmentin and Levaquin for 14 days and a refill along with Diflucan. Wrote scripts for Dilaudid for pain (50 tabs) and for Valium for spasm (30 tabs). Followup office next week to remove the JOE NPWT and evaluate the healing of the skin grafts. May start her Coumadin. Will stay on Lovenox injections until the Coumadin level is therapeutic.
--- NOTE | 2019-04-11 11:02 | DCINST_ITS ---
You will use the following diet at home:: No restrictions, Other - encourage nutritional supplementation with protein to help the healing process. Discharge Activity: May not drive while taking narcotic pain medications., May Shower - may shower after the drain is removed., - - keep legs elevated when sitting. minimize standing. may ambulate. May shower in (days): 5 - will shower after her drain is removed. May resume sexual activity in: 10-14 days Weight Bearing Status: Weight bearing as tolerated Keep extremity elevated above heart level: Left Leg Call your doctor if your incision/area has: Continuous Slow Oozing, Sudden Increased Bleeding, Increased Pain/ Swelling, Foul Smelling Discharge, Swelling at the incision site, - - the JOE device stops blinking on the green OK button. Call your doctor if you observe: Fever of 101 or Higher, Coldness, Increased Pain, Shortness of breath, Chest pain, Calf discomfort, Uncontrolled pain Change Dressing in (Days):: 5 - will change the left leg dressing in the office. may change the left flank dressing as needed with dry dressing. Cleanse incision/area with: - - may get incisions wet in the shower after the drain is removed. Drain: Suction - abner drain to bulb suction. empty and record output daily. Allergies/Adverse Reactions: Allergies adhesive tape Adverse Reaction (Verified 04/10/19 08:23) Rash Medications to take at Discharge Aripiprazole [Abilify] 2 mg PO DAILY 07/10/18 Metoprolol Succinate [Toprol Xl] 25 mg PO DAILY 07/10/18 Omeprazole 40 mg PO DAILY 07/10/18 Prednisone 4 mg PO DAILY 07/10/18 Ranitidine [Zantac] 150 mg PO QHS 07/10/18 Bupropion HCl [Bupropion Xl] 300 mg PO DAILY 08/25/18 Hydroxyzine Pamoate [Vistaril] 50 mg PO PRN PRN 08/25/18 Ropinirole HCl [Ropinirole ER] 2 mg PO QHS 08/25/18 Warfarin [Coumadin] 5 mg PO DAILY #0 12/20/18 Folic Acid 1 mg PO DAILY 01/23/19 Baclofen [Lioresal] 10 mg PO Q6H PRN PRN 03/27/19 Ferrous Sulfate 325 mg PO DAILY 03/27/19 Lactobacillus Acidophilus [Acidophilus] 1 ea PO BID 03/27/19 Enoxaparin Sodium [Lovenox] 80 mg SQ BID 04/10/19 Venlafaxine XR [Effexor Xr] 225 mg PO DAILY 04/10/19 traZODone [Desyrel] 150 mg PO QHS 04/10/19 Acetaminophen [Tylenol Tablet] 650 mg PO Q4H PRN PRN tablet 04/11/19 Amox/Clavulanate Tablet [Augmentin Tablet] 875 mg PO BID #28 tab 04/11/19 Diazepam [Valium] 5 mg PO 4X/DAY PRN PRN #30 tab 04/11/19 Docusate Sodium [Colace] 100 mg PO BID capsule 04/11/19 Famotidine [Pepcid] 20 mg PO HS tablet 04/11/19 Fluconazole [Diflucan] 200 mg PO DAILY #14 tab 04/11/19 HYDROmorphone tablet [Dilaudid] 2 - 4 mg PO 4X/DAY PRN PRN 7 Days #50 tab 04/11/19 Pantoprazole Sodium [Protonix] 40 mg PO DAILY tablet 04/11/19 Venlafaxine XR [Effexor Xr] 75 mg PO DAILY capsule 04/11/19 Venlafaxine XR [Effexor Xr] 150 mg PO DAILY capsule 04/11/19 levoFLOXacin tablet [Levaquin tablet] 500 mg PO DAILY #14 tab 04/11/19 proMETHazine tablet [Phenergan tablet] 25 mg PO Q4H PRN PRN tablet 04/11/19 traZODone [Desyrel] 150 mg PO HS tablet 04/11/19 The following prescriptions were given: Amox/Clavulanate Tablet [Augmentin Tablet] 875 mg PO BID #28 tab Prescription Printed Fluconazole [Diflucan] 200 mg PO DAILY #14 tab Prescription Printed HYDROmorphone tablet [Dilaudid] 2 - 4 mg PO 4X/DAY PRN PRN 7 Days #50 tab PRN Reason: Pain Prescription Printed levoFLOXacin tablet [Levaquin tablet] 500 mg PO DAILY #14 tab Prescription Printed Diazepam [Valium] 5 mg PO 4X/DAY PRN PRN #30 tab PRN Reason: Spasms Prescription Printed Primary Care Physician: Tarah Dubon DO [Primary Care Provider] - Test Results: Test results from this visit will be discussed in further detail at your follow- up appointment, if applicable. Please Follow Up With: Nghia Kent MD - this first postop appt will be in my office and not the wound center. When: next week. call [phone] for appt. Proposed Discharge Date: 04/11/19
[2019-04-11] MEDS: levoFLOXacin IV 500 MG/100 ML BAG 100 MG IV (11:41)
[2019-04-11 13:26] VITALS: BP 109/58; PULSE 91; RESP 18; TEMP 37; O2SAT 96
== END 2019-04-11 13:43 | disposition home or self-care (01) ==
LOC: SDC 11:57
PROVIDERS: Admitting Provider Surgery; Family Provider Family Medicine; PCP Family Medicine; Referring Provider Surgery; Visit Provider Surgery
PROC: (CPT 15002; principal; 2019-04-10 09:15)
DX: L97.822 Non-pressure chronic ulcer of other part of left lower leg with fat layer exposed (principal); M32.9 Systemic lupus erythematosus, unspecified; T79.A22S Traumatic compartment syndrome of left lower extremity, sequela; X58.XXXS Exposure to other specified factors, sequela; Z79.899 Other long term (current) drug therapy; Z79.52 Long term (current) use of systemic steroids; Z79.01 Long term (current) use of anticoagulants
CPT/HCPCS: 00400; 15002; 15100; 36415; 36416; 80048; 84134; 85027; 85610; 87070; 87075; 87077; 87102; 87176; 87186; 87205; 87206; 88304; 88312; 96361; 96365; 96366; 96367; 96372; 96375; 96376; 99218; J7120; A4216; G0378; G0379; J0295; J0696; J2405

== ENCOUNTER 2019-04-20 10:15 | Outpatient (RCR) | payer MEDICAID, SELFPAY ==
[2019-03-22 00:52] VITALS: BP 125/76; PULSE 106; RESP 16; TEMP 36.9
[2019-04-06 12:01] VITALS: BP 150/81; PULSE 88; RESP 18; TEMP 36.3; BMI 53.4
--- NOTE | 2019-04-06 14:15 | PCM.WC.PN ---
(1) Ulcer of left lower extremity Status: Chronic Current Visit: Yes Code(s): L97.929 - Non-pressure chronic ulcer of unspecified part of left lower leg with unspecified severity (2) Ulcer of left lower extremity with fat layer exposed Status: Chronic Current Visit: Yes Code(s): L97.922 - Non-pressure chronic ulcer of unspecified part of left lower leg with fat layer exposed (3) Lupus Status: Chronic Current Visit: Yes Code(s): M32.9 - Systemic lupus erythematosus, unspecified (4) Immunocompromised state due to drug therapy Status: Chronic Current Visit: Yes Code(s): Z79.899 - Other senior living (current) drug therapy Comment: on Methotrexate for Lupus (5) 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 History of Wound: The patient is a 48 year old F presented to the hospital with increasing pain and swelling left leg. Hematoma and compartment syndrome was diagnosed and she was taken urgently to the OR on 12/13/[address] Sawant for fasciotomies. Medial and lateral leg wounds were created and the wounds were dressed with the VAC at discharge. Wound care is collagen hydrogel on left lateral leg ulcer and moistened silver with adaptic to the left medial ulcer. Today the patient denies fever. Her appetite is good. She has some pain with ambulation. She is scheduled for a skin graft on Saturday04/10/19 if her insurance approves it. Progress of Wound: Improved. - Physical Exam Vital Signs Temp Pulse Resp BP 97.3 F L 88 18 150/81 H 04/06/19 12:01 04/06/19 12:01 04/06/19 12:04/06/19 12:01 General: Alert, Oriented x3, Cooperative HEENT: Atraumatic Oral: Moist Mucosa Lungs: Normal air movement Cardiovascular: Regular rate Extremities: Capillary Refill Less than 3 Seconds, Peripheral Pulses Normal Skin: Ulcer/ Wound - Right medial leg ucler and right lateral leg ulcer. Wound Measurements and Assessment WC - Nurse 1 - General Ulcer Measurement Start: 04/06/19 12:01 Freq: Status: Active Protocol: Activity Type Activity Date Activity User E-Sign Co-Sign Detail Recorded Client Recorded Date Recorded By Document 04/06/19 12:01 VALERIO [id number] 04/06/19 12:18 VALERIO 04/06/19 12:01 Wound Center Nurse 1 [Ulcer Assessment] #2 LLL Lateral -Combined with other wound No -Current Size (cm) - Length 8 -Current Size (cm) - Width 0.6 -Current Size (cm) - Depth 0.1 -Total Square Cm 4.8 -Tunneling No -Undermining/Tunneling No -Circular Undermining No -Exudate Amt Small -Exudate Type Serosanguineous -Wound Margin Distinct, Outline Attached -Granulation Amt Medium (34-66%) -Granulation Quality [place],Red -Slough/Fibrin Yes -Necrosis Amt Medium (34-66%) -Necrotic Tissue Type Adherent Slough -Structure Exposed N/A -Texture (Kisha-wound Skin Appearance) Assessed -Moisture (Kisha-wound Skin Appearance Assessed ) -Color (Kisha-wound Skin Appearance) Assessed -Temperature (Kisha-wound Skin No Abnormality Appearance) (Pt Warm) -Tenderness on Palpation (Kisha-wound No Skin Appearance) -Ulcer Cleansing Wound Cleanser -Foul Odor after Cleansing No -Anesthetic Used 4% Lidocaine Solution #1 LLL medial -Combined with other wound No -Current Size (cm) - Length 15.7 -Current Size (cm) - Width 3.2 -Current Size (cm) - Depth 0.6 -Total Square Cm 50.24 -Tunneling No -Undermining/Tunneling No -Circular Undermining No -Exudate Amt Medium -Exudate Type Serosanguineous -Wound Margin Distinct, Outline Attached -Granulation Amt Medium (34-66%) -Granulation Quality [place],Red -Slough/Fibrin Yes -Necrosis Amt Small (1-33%) -Necrotic Tissue Type Adherent Slough -Structure Exposed N/A -Texture (Kisha-wound Skin Appearance) Assessed -Moisture (Kisha-wound Skin Appearance Assessed ) -Color (Kisha-wound Skin Appearance) Assessed -Temperature (Kisha-wound Skin No Abnormality Appearance) (Pt Warm) -Tenderness on Palpation (Kisha-wound No Skin Appearance) -Ulcer Cleansing Wound Cleanser -Foul Odor after Cleansing No -Anesthetic Used 4% Lidocaine Solution SEPIDEH - Nurse 2 - General Ulcer CM Notes Start: 04/06/19 12:01 Freq: Status: Active Protocol: Activity Type Activity Date Activity User E-Sign Co-Sign Detail Recorded Client Recorded Date Recorded By Document 04/06/19 12:39 [email or web address] [id number] 04/06/19 12:42 04/06/19 12:39 Wound Center Nurse 2 [Procedure/Treatment] #2 LLL Lateral -Time 12:39 -Correct Patient Yes -Correct Side, Site, Position Yes -Correct Procedure Yes -Procedure Performed Yes -Type of Procedure Debridement -Clinical Debridement Subcutaneous -Post Debridement Size (cm) - Length 6.5 -Post Debridement Size (cm) - Width 0.4 -Post Debridement Size (cm) - Depth 0.1 -Total Square Cm 2.60 -Wound/Ulcer Outcome Not Healed -Ulcer Cleansing Rinsed/ Irrigated with Saline -Foul Odor after Cleansing No -Bioengineered Tissue No -Bleeding Controlled with Pressure -Offloading No -Treatment Response Procedure Tolerated Well #1 LLL medial -Time 12:41 -Correct Patient Yes -Correct Side, Site, Position Yes -Correct Procedure Yes -Procedure Performed Yes -Type of Procedure Debridement -Clinical Debridement Subcutaneous -Post Debridement Size (cm) - Length 16 -Post Debridement Size (cm) - Width 3 -Post Debridement Size (cm) - Depth 0.8 -Total Square Cm 48 -Wound/Ulcer Outcome Not Healed -Ulcer Cleansing Rinsed/ Irrigated with Saline -Foul Odor after Cleansing No -Bioengineered Tissue No -Bleeding Controlled with Pressure -Offloading No -Treatment Response Procedure Tolerated Well [See Physician Procedure note for Specifics] Pain Scale: 0-10 Numeric [Pain] -Is Patient Pain Free? Yes Musculoskeletal: No Tenderness to Palpation of Joints or Extremities Neurological: Neuro grossly intact Psych/Mental Status: Normal Affect, Appropriate Debridement Note Post-Debridement Measurements/Treatment SEPIDEH - Nurse 2 - General Ulcer CM Notes Start: 04/06/19 12:01 Freq: Status: Active Protocol: Activity Type Activity Date Activity User E-Sign Co-Sign Detail Recorded Client Recorded Date Recorded By Document 04/06/19 12:39 [id number] 04/06/19 12:42 04/06/19 12:39 Wound Center Nurse 2 #2 LLL Lateral -Time 12:39 -Correct Patient Yes -Correct Side, Site, Position Yes -Correct Procedure Yes -Procedure Performed Yes -Type of Procedure Debridement -Clinical Debridement Subcutaneous -Post Debridement Size (cm) - Length 6.5 -Post Debridement Size (cm) - Width 0.4 -Post Debridement Size (cm) - Depth 0.1 -Total Square Cm 2.60 -Wound/Ulcer Outcome Not Healed -Ulcer Cleansing Rinsed/ Irrigated with Saline -Foul Odor after Cleansing No -Bioengineered Tissue No -Bleeding Controlled with Pressure -Offloading No -Treatment Response Procedure Tolerated Well #1 LLL medial -Time 12:41 -Correct Patient Yes -Correct Side, Site, Position Yes -Correct Procedure Yes -Procedure Performed Yes -Type of Procedure Debridement -Clinical Debridement Subcutaneous -Post Debridement Size (cm) - Length 16 -Post Debridement Size (cm) - Width 3 -Post Debridement Size (cm) - Depth 0.8 -Total Square Cm 48 -Wound/Ulcer Outcome Not Healed -Ulcer Cleansing Rinsed/ Irrigated with Saline -Foul Odor after Cleansing No -Bioengineered Tissue No -Bleeding Controlled with Pressure -Offloading No -Treatment Response Procedure Tolerated Well Pain Scale: 0-10 Numeric Is Patient Pain Free? Yes Wound debrided: Right lateral leg ulcer- cluster. Laterality: Right Type of Debridement: Excisional debridement Anesthesia Used: 4% Lidocaine Solution, 5% Lidocaine Gel Depth: Down to and including healthy tissue, in the subcutaneous layer Percentage of wound debrided: 100 Instrument Used: 3mm curette Tissue Removed: Subcutaneous tissue and slough Severity: Fat Layer Exposed Amount of bleeding with debridement: Mild Bleeding Controlled with: Pressure, Compression and gauze Patient tolerated procedure well - Additional Wound Wound debrided: Right medial leg Laterality: Right Type of Debridement: Excisional debridement Anesthesia Used: 4% Lidocaine Solution, 5% Lidocaine Gel Depth: Down to and including healthy tissue, in the subcutaneous layer Percentage of wound debrided: 100 Instrument Used: 7mm curette Tissue Removed: Subcutaneous tissue and slough Severity: Fat Layer Exposed Amount of bleeding with debridement: Mild Bleeding Controlled with: Pressure, Compression and gauze Patient tolerated procedure: Patient tolerated procedure well Assessment/Plan Active Problems Ulcer of left lower extremity (Chronic) Ulcer of left lower extremity with fat layer exposed (Chronic) Lupus (Chronic) 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) on Methotrexate for Lupus continuous churn buttermaker current use of anticoagulant (Chronic) Assessment: 1. Nonhealing fasciotomy ulcer left medial leg. 2. Nonhealing fasciotomy ulcer left lateral leg. 3. Hematoma with compartment syndrome left leg s/p fasciotomies. 4. continuous churn buttermaker use of. 5. Lupus. 6. Immunocompromised state due to high risk medication, Methotrexate, for Lupus. Plan: Wound care will be collagen hydrogel to the left lateral leg. Left medial leg will be moistened silver covered by Adaptic. She will continue to use Tubigrip for compression. Ok for the patient to ambulate. Try and minimize standing to keep swelling to a minimum. The ulcers are ready for skin grafting which are scheduled for Saturday pending insurance approval. The left lateral leg ulcer is almost healed. Due to the swelling and her medical history of lupus and being on Methotrexate and Prednisone and eventually an immune modulator medication and being on blood thinners which can affect healing, it would be safer to proceed with skin grafting as opposed to proceeding with a delayed secondary wound closure over a drain. After the skin grafts have healed, and the swelling has resolved after at least a year, we can have a discussion about excising the skin grafts with secondary wound closure. At that time, would only do one side and excise one skin graft at a time. Would wait 6 months in between surgeries before proceeding with the other side and excision of the other skin graft with secondary wound closure. Drains would be placed along with compression MENDEZ wraps. At that point, if wound healing problems occur, would return to the VAC until healed or proceed with skin grafting until healed. Encourage nutritional supplementation with protein to help the healing process. Will schedule the surgery for further debridement and skin grafting. Will obtain a wound culture today preop. A positive culture will necessitate antibiotic therapy. Surgery will be scheduled under general anesthesia with a surgical observation overnight stay in the hospital. Patient was informed of the risks and complications of the procedure including alternatives to surgery. These were discussed with her personally. She voices understanding and wishes to proceed. Followup 2 weeks. Code Visit [id number]: [id number] Jessica subq tissue 20 sq cm/< Add On Codes: [id number] Jessica subq tissue add-on - x2
[2019-04-13 11:50] VITALS: BP 154/91; PULSE 92; RESP 18; TEMP 36.4; BMI 53.4
--- NOTE | 2019-04-13 23:15 | PCM.WC.PN ---
Type of Wound Date of Service: 04/13/19 Chief Complaint: Nonhealing fasciotomy ulcers left lateral leg and left medial leg with recent skin grafting 04/10/19. History of Wound: Surgery 04/10/19 - 1. Surgical preparation left medial leg with excisional debridement nonhealing fasciotomy ulcer and placement of AmnioFill placental connective tissue powder and STSG reconstruction from left flank (48 cm2). 2. Surgical preparation left lateral leg with excisional debridement nonhealing fasciotomy ulcer and placement of AmnioFill placental connective tissue powder and STSG reconstruction from left flank (20 cm2). Wound care - JOE NPWT. Operative culture - Enterobacter cloacae thus far. Preoperatively her culture showed Acinetobacter baumannii, Enterobacter cloacae, Streptococcus agalactiae, and Anaerobic cocci. She was treated perioperatively with Levaquin and Augmentin. Prealbumin from 04/11/19 was 18.8. Encourage nutritional supplementation with protein to help the healing process. She had called in this morning because of problems with the JOE NPWT. One of the devices was malfunctioning. She denies fever. Progress of Wound: Recent surgery on 04/10/19 with skin grafting. - Physical Exam Vital Signs Temp Pulse Resp BP 97.5 F L 92 18 154/91 H 04/13/19 11:50 04/13/19 11:50 04/13/19 11:50 04/13/19 11:50 Debridement Note Post-Debridement Measurements/Treatment WC - Nurse 2 - General Ulcer CM Notes Start: 04/06/19 12:01 Freq: Status: Active Protocol: Activity Type Activity Date Activity User E-Sign Co-Sign Detail Recorded Client Recorded Date Recorded By Document 04/06/19 12:39 MARITA [id number] 04/06/19 12:42 MARITA 04/06/19 12:39 Wound Center Nurse 2 #2 LLL Lateral -Time 12:39 -Correct Patient Yes -Correct Side, Site, Position Yes -Correct Procedure Yes -Procedure Performed Yes -Type of Procedure None -Clinical Debridement None -Post Debridement Size (cm) - Length -Post Debridement Size (cm) - Width -Post Debridement Size (cm) - Depth -Total Square Cm -Wound/Ulcer Outcome Recent skin graft -Ulcer Cleansing Rinsed/ Irrigated with Saline -Foul Odor after Cleansing No -Bioengineered Tissue No -Bleeding Controlled with -Offloading No -Treatment Response #1 LLL medial -Time 12:41 -Correct Patient Yes -Correct Side, Site, Position Yes -Correct Procedure Yes -Procedure Performed Yes -Type of Procedure None -Clinical Debridement None -Post Debridement Size (cm) - Length -Post Debridement Size (cm) - Width -Post Debridement Size (cm) - Depth -Total Square Cm -Wound/Ulcer Outcome Recent skin graft -Ulcer Cleansing Rinsed/ Irrigated with Saline -Foul Odor after Cleansing No -Bioengineered Tissue No -Bleeding Controlled with -Offloading No -Treatment Response Pain Scale: 0-10 Numeric Is Patient Pain Free? Yes Wound debrided: #1 Left medial leg. Laterality: Left Wound Grade/Stage: 2. No debridement was completed today - the ulcer was recently skin grafted on 04/10/19. Good adherence is seen in the graft with vascular ingrowth. About 90% take. - Additional Wound Wound debrided: #2 Left lateral leg. Laterality: Left Wound Grade/Stage: 2. Patient tolerated procedure: - - No debridement was done today as the ulcer was recently skin grafted on 04/10/19. Good adherence is seen in the graft with vascular ingrowth. About 90% take. Assessment/Plan Assessment: 1. Nonhealing fasciotomy ulcer left medial leg, with recent skin graft on 04/10/19. 2. Nonhealing fasciotomy ulcer left lateral leg, with recent skin graft on 04/10/19. 3. Hematoma with compartment syndrome left leg s/p fasciotomies. 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 5. Lupus. 6. Immunocompromised state due to high risk medication, Methotrexate, for Lupus. Plan: JOE NPWT devices were removed today. The skin grafts show good adherence with some vascular ingrowth. About 90% take. Some moisture is noted. Will need continued dry gauze with Bactroban ointment and MENDEZ wrap for compression. Operative culture shows Enterobacter cloacae thus far. She was treated perioperatively with Levaquin and Augmentin. Ok for the patient to ambulate. Try and minimize standing to keep swelling to a minimum. Elevate left leg when sitting. Followup one week.
[2019-04-20 10:43] VITALS: BP 126/85; PULSE 117; RESP 16; TEMP 36.4; BMI 53.4
--- NOTE | 2019-04-20 12:44 | PCM.WC.PN ---
(1) Skin graft disorder Status: Acute Code(s): T86.829 - Unspecified complication of skin graft (allograft) (autograft) (2) Ulcer of left lower extremity Status: Chronic Code(s): L97.929 - Non-pressure chronic ulcer of unspecified part of left lower leg with unspecified severity (3) Ulcer of left lower extremity with fat layer exposed Status: Chronic Code(s): L97.922 - Non-pressure chronic ulcer of unspecified part of left lower leg with fat layer exposed (4) Lupus Status: Chronic Code(s): M32.9 - Systemic lupus erythematosus, unspecified (5) Immunocompromised state due to drug therapy Status: Chronic Code(s): Z79.899 - 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 History of Wound: The patient is a 48 year old F presented to the hospital with increasing pain and swelling left leg. Hematoma and compartment syndrome was diagnosed and she was taken urgently to the OR on 12/13/[address] Sawant for fasciotomies. Medial and lateral leg wounds were created and the wounds were dressed with the VAC at discharge. On 04/10/19 she underwent a surgical preparation left medial leg with excisional debridement nonhealing fasciotomy ulcer and placement of AmnioFill placental connective tissue powder and STSG reconstruction from left flank (48 cm2) and surgical preparation left lateral leg with excisional debridement nonhealing fasciotomy ulcer and placement of AmnioFill placental connective tissue powder and STSG reconstruction from left flank (20 cm2). There is approx 15-20% compromise to the medial graft, will do silver dressing changes daily the the medial graft. Will continue antibiotic ointment to the graft to the left lateral graft. Today the patient denies fever. Her appetite is good. Progress of Wound: Improved. - Physical Exam Vital Signs Temp Pulse Resp BP 97.5 F L 117 H 16 126/85 H 04/20/19 10:43 04/20/19 10:43 04/20/19 10:43 04/20/19 10:43 General: Alert, Oriented x3, Cooperative HEENT: Atraumatic Oral: Moist Mucosa Lungs: Normal air movement Cardiovascular: Regular rate Extremities: Capillary Refill Less than 3 Seconds, Edema, Peripheral Pulses Normal Skin: Ulcer/ Wound - Skin graft compromise of he left medial graft Wound Measurements and Assessment WC - Nurse 1 - General Ulcer Measurement Start: 04/06/19 12:01 Freq: Status: Active Protocol: Activity Type Activity Date Activity User E-Sign Co-Sign Detail Recorded Client Recorded Date Recorded By Document 04/20/19 10:43 [facility] [id number] 04/20/19 10:51 [facility] 04/20/19 10:43 Wound Center Nurse 1 [Ulcer Assessment] #2 LLL Lateral -Combined with other wound No -Current Size (cm) - Length 0.1 -Current Size (cm) - Width 0.1 -Current Size (cm) - Depth 0.1 -Total Square Cm 0.01 -Photo Taken No -Tunneling No -Undermining/Tunneling No -Circular Undermining No -Exudate Amt Small -Exudate Type Serosanguineous -Granulation Amt None Present (0 %) -Slough/Fibrin Yes -Necrosis Amt Small (1-33%) -Necrotic Tissue Type Eschar -Texture (Kisha-wound Skin Appearance) Assessed, Scarring -Moisture (Kisha-wound Skin Appearance Dry/Scaly ) -Color (Kisha-wound Skin Appearance) Assessed -Temperature (Kisha-wound Skin No Abnormality Appearance) (Pt Warm) -Tenderness on Palpation (Kisha-wound No Skin Appearance) -Ulcer Cleansing soap and water -Foul Odor after Cleansing No -Anesthetic Used 4% Lidocaine Solution #1 LLL medial -Combined with other wound No -Current Size (cm) - Length 0.1 -Current Size (cm) - Width 0.1 -Current Size (cm) - Depth 0.1 -Total Square Cm 0.01 -Photo Taken No -Epithelialization None Present -Tunneling No -Undermining/Tunneling No -Circular Undermining No -Exudate Amt Small -Exudate Type Serosanguineous -Wound Margin Distinct, Outline Attached -Granulation Amt Medium (34-66%) -Granulation Quality Red -Slough/Fibrin Yes -Necrosis Amt Small (1-33%) -Necrotic Tissue Type Adherent Slough -Texture (Kisha-wound Skin Appearance) Assessed, Scarring -Moisture (Kisha-wound Skin Appearance Assessed ) -Color (Kisha-wound Skin Appearance) Assessed -Temperature (Kisha-wound Skin No Abnormality Appearance) (Pt Warm) -Tenderness on Palpation (Kisha-wound No Skin Appearance) -Ulcer Cleansing soap and water -Foul Odor after Cleansing No -Anesthetic Used 4% Lidocaine Solution WC - Nurse 2 - General Ulcer CM Notes Start: 04/06/19 12:01 Freq: Status: Active Protocol: Activity Type Activity Date Activity User E-Sign Co-Sign Detail Recorded Client Recorded Date Recorded By Document 04/20/19 11:19 [id number] 04/20/19 11:30 04/20/19 11:19 Wound Center Nurse 2 [Procedure/Treatment] #2 LLL Lateral -Time 11:26 -Correct Patient Yes -Correct Side, Site, Position Yes -Correct Procedure Yes -Procedure Performed Yes -Type of Procedure Debridement -Clinical Debridement Selective -Post Debridement Size (cm) - Length 0.1 -Post Debridement Size (cm) - Width 0.1 -Post Debridement Size (cm) - Depth 0.1 -Total Square Cm 0.01 -Wound/Ulcer Outcome Not Healed -Ulcer Cleansing Rinsed/ Irrigated with Saline -Foul Odor after Cleansing No -Bioengineered Tissue No -Bleeding Controlled with Pressure -Offloading No -Treatment Response Procedure Tolerated Well #1 LLL medial -Time 11:26 -Correct Patient Yes -Correct Side, Site, Position Yes -Correct Procedure Yes -Procedure Performed Yes -Type of Procedure Debridement -Clinical Debridement Selective -Post Debridement Size (cm) - Length 0.1 -Post Debridement Size (cm) - Width 0.1 -Post Debridement Size (cm) - Depth 0.1 -Total Square Cm 0.01 -Wound/Ulcer Outcome Not Healed -Ulcer Cleansing Rinsed/ Irrigated with Saline -Foul Odor after Cleansing No -Bioengineered Tissue No -Bleeding Controlled with Pressure -Offloading No -Treatment Response Procedure Tolerated Well [See Physician Procedure note for Specifics] Pain Scale: 0-10 Numeric [Pain] -Is Patient Pain Free? Yes Musculoskeletal: No Tenderness to Palpation of Joints or Extremities Neurological: Neuro grossly intact Psych/Mental Status: Normal Affect, Appropriate Debridement Note Post-Debridement Measurements/Treatment - Nurse 2 - General Ulcer CM Notes Start: 04/06/19 12:01 Freq: Status: Active Protocol: Activity Type Activity Date Activity User E-Sign Co-Sign Detail Recorded Client Recorded Date Recorded By Document 04/06/19 12:39 [id number] 04/06/19 12:42 Document 04/20/19 11:19 [id number] 04/20/19 11:30 04/06/19 04/20/19 12:39 11:19 Wound Center Nurse 2 #2 LLL Lateral -Time 12:39 11:26 -Correct Patient Yes Yes -Correct Side, Site, Position Yes Yes -Correct Procedure Yes Yes -Procedure Performed Yes Yes -Type of Procedure Debridement Debridement -Clinical Debridement Subcutaneous Selective -Post Debridement Size (cm) - Length 6.5 0.1 -Post Debridement Size (cm) - Width 0.4 0.1 -Post Debridement Size (cm) - Depth 0.1 0.1 -Total Square Cm 2.60 0.01 -Wound/Ulcer Outcome Not Healed Not Healed -Ulcer Cleansing Rinsed/ Rinsed/ Irrigated with Irrigated with Saline Saline -Foul Odor after Cleansing No No -Bioengineered Tissue No No -Bleeding Controlled with Pressure Pressure -Offloading No No -Treatment Response Procedure Procedure Tolerated Well Tolerated Well #1 LLL medial -Time 12:41 11:26 -Correct Patient Yes Yes -Correct Side, Site, Position Yes Yes -Correct Procedure Yes Yes -Procedure Performed Yes Yes -Type of Procedure Debridement Debridement -Clinical Debridement Subcutaneous Selective -Post Debridement Size (cm) - Length 16 0.1 -Post Debridement Size (cm) - Width 3 0.1 -Post Debridement Size (cm) - Depth 0.8 0.1 -Total Square Cm 48 0.01 -Wound/Ulcer Outcome Not Healed Not Healed -Ulcer Cleansing Rinsed/ Rinsed/ Irrigated with Irrigated with Saline Saline -Foul Odor after Cleansing No No -Bioengineered Tissue No No -Bleeding Controlled with Pressure Pressure -Offloading No No -Treatment Response Procedure Procedure Tolerated Well Tolerated Well Pain Scale: 0-10 Numeric Is Patient Pain Free? Yes Yes No debridement was completed today Assessment/Plan Assessment: 1. Nonhealing fasciotomy ulcer left medial leg. 2. Nonhealing fasciotomy ulcer left lateral leg. 3. Hematoma with compartment syndrome left leg s/p fasciotomies. 4. [facility]FP use of. 5. Lupus. 6. Immunocompromised state due to high risk medication, Methotrexate, for Lupus. Plan: On 04/10/19 she under went a surgical preparation left medial leg with excisional debridement nonhealing fasciotomy ulcer and placement of AmnioFill placental connective tissue powder and STSG reconstruction from left flank (48 cm2) and surgical preparation left lateral leg with excisional debridement nonhealing fasciotomy ulcer and placement of AmnioFill placental connective tissue powder and STSG reconstruction from left flank (20 cm2). On her left medial skin graft she has approx 15-20% compromise of the graft. Will have her place silver on the this graft and bactroban to the left lateral graft. Due to the swelling and her medical history of lupus and being on Methotrexate and Prednisone and eventually an immune modulator medication and being on blood thinners which can affect healing, it would be safer to proceed with skin grafting as opposed to proceeding with a delayed secondary wound closure over a drain. After the skin grafts have healed, and the swelling has resolved after at least a year, we can have a discussion about excising the skin grafts with secondary wound closure. At that time, would only do one side and excise one skin graft at a time. Would wait 6 months in between surgeries before proceeding with the other side and excision of the other skin graft with secondary wound closure. Drains would be placed along with compression MENDEZ wraps. At that point, if wound healing problems occur, would return to the VAC until healed or proceed with skin grafting until healed. Encourage nutritional supplementation with protein to help the healing process. Will schedule the surgery for further debridement and skin grafting. Will obtain a wound culture today preop. A positive culture will necessitate antibiotic therapy. Surgery will be scheduled under general anesthesia with a surgical observation overnight stay in the hospital. Patient was informed of the risks and complications of the procedure including alternatives to surgery. These were discussed with her personally. She voices understanding and wishes to proceed. Followup 2 weeks. Code Visit [id number]
== END 2019-04-20 23:59 ==
LOC: WC 10:15
PROVIDERS: Family Provider Family Medicine; PCP Family Medicine; Referring Provider Surgery; Visit Provider Surgery
DX: T79.A22A Traumatic compartment syndrome of left lower extremity, initial encounter (principal); Y83.8 Other surgical procedures as the cause of abnormal reaction of the patient, or of later complication, without mention of misadventure at the time of the procedure; L97.822 Non-pressure chronic ulcer of other part of left lower leg with fat layer exposed; M32.9 Systemic lupus erythematosus, unspecified; M79.89 Other specified soft tissue disorders
CPT/HCPCS: 11042; 11045; 97597; 99213; G0463

== ENCOUNTER 2019-05-18 09:33 | Observation (INO) | payer MEDICAID, SELFPAY ==
[2019-05-18] VITALS (13 sets, daily range): BP systolic 120–148; BP diastolic 63–81; PULSE 79–93; RESP 11–22; TEMP 36.7–37.1; O2SAT 92–97; BMI 53.5; BMI 55.5; BMI 53.9; BMI 54.0
--- NOTE | 2019-05-18 09:41 | RAD_ITS ---
STUDY: X-RAY CHEST REASON FOR EXAM: Female, 48 years old. Chest pain. TECHNIQUE: Single AP portable view of the chest. COMPARISON: Comparison is made with prior study dated January 23, 2019. FINDINGS: EKG electrodes are seen. The lungs are clear and expanded. There is no demonstrated pleural abnormality. There is moderate cardiac enlargement. Normal mediastinum and xiomara. Normal visualized pulmonary arteries. Normal visualized aortic arch and descending thoracic aorta. Normal visualized thoracic spine. Normal visualized ribs, clavicles, and shoulders. Hiatal hernia. RAD/Chest 1 View (Portable) IMPRESSION: Cardiomegaly. Hiatal hernia. Electronically Signed: Yan Clement, at 10:17 EDT , Service support ,
--- NOTE | 2019-05-18 09:41 | EKG12_ITS ---
Test Reason : ADMISSION-CP Blood Pressure : / mmHG Vent. Rate : 081 BPM Atrial Rate : 081 BPM P-R Int : 142 ms QRS Dur : 086 ms QT Int : 382 ms P-R-T Axes : 049 050 080 degrees QTc Int : 443 ms Normal sinus rhythm Normal ECG Confirmed by LATIA LEON, VALENCIA ([id number]), photography editor GILBERT ZHOU ([id number]) on 05/20/2019 10:06:18 AM Referred By: JACK Confirmed By:VALENCIA JEFFERY MD
--- NOTE | 2019-05-18 09:49 | ED.VIS.GEN ---
History of Present Illness Chief Complaint: Chest Pain Informant: Patient Onset: Yesterday Context: Gradual Onset Timing: Intermittent Current Severity: Moderate Maximum Severity: Moderate Narrative: The patient is a 48-year-old female with medical history significant for lupus anticoagulant presents to the emergency department with chest pain. Patient states she was in her normal state of health. States yesterday, she began to have some substernal pressure and dyspnea. She states that it was more constant than it has been before. She states today, she was still having the pain. It was made worse with exertion. She has she went over to the wound care center. The patient does have a wound on her lower extremity as she had hematoma with compartment syndrome in December. She had it redressed, but given her symptoms of chest pain and dyspnea she was sent over for further evaluation. Patient is on Coumadin and has been compliant with this. She denies any history of coronary vascular disease. She denies any fevers or chills. Prior similar symptoms: No Recent Illness/Hospitalization: No Past Medical History - Allergies and Home Meds Allergies/Adverse Reactions: Allergies adhesive tape Adverse Reaction (Verified 05/18/19 09:38) Rash Primary Care Physician: Tarah Dubon DO [Primary Care Provider] - Prior records reviewed: Yes Past Medical History: - - DVT, rheumatoid arthritis Surgical History: - - bilateral knee replacement Smoking Status: Never smoker - Family History Maternal Family History: Reports: No pertinent history Paternal Family History: Reports: No pertinent history Review of Systems General: Denies: Chills, Fever, Sweats Eyes: Denies: Visual changes - bilaterally, Diplopia ENT: Denies: Rhinorrhea, Sore throat Cardiovascular: Reports: Chest pain. Denies: Palpitations Respiratory: Reports: Dyspnea. Denies: Cough, Dyspnea on exertion Gastrointestinal: Denies: Abdominal pain, Nausea, Vomiting, Diarrhea, Melena, Hematochezia Genitourinary: Denies: Dysuria, Hematuria, Frequency Musculoskeletal: Denies: Back pain, Extremity Pain Skin: Denies: Rash, Wounds Neurological: Denies: Headache, Weakness, Numbness Physical Exam Vital Signs/Narrative: Vital Signs Temp Pulse Resp BP Pulse Ox 05/18/19 09:34 98.0 F 89 22 H 148/68 H 96 Inital Vital Signs reviewed: Yes General: Well nourished, Well developed, No Acute Distress Head: Normocephalic, Atraumatic Eyes: Perrl, EOMI ENT: Moist mucous membranes, No rhinorrhea Neck: Supple, Nontender Cardiovascular: Regular rate, Regular rhythm, No murmurs Respiratory: No distress, CTA bilaterally, Chest nontender Abdomen: Soft, Nontender, Nondistended, Normal bowel sounds Back: Nontender, Normal Inspection Extremities: Nontender, No edema Skin: Normal color, No rash Neurological: Alert, Oriented x3, Cranial nerves II-XII grossly intact, Normal Strength, Normal Sensation Psychological: Normal affect, Normal Mood Diagnostic/Tx/Re-eval Chest X-Ray - ED: 2 View, Normal, Lungs, Mediastinum, Bony Structures, Cardiomegaly Clinical Impression(s) from Imaging Studies Chest X-Ray 05/18/19 09:41 IMPRESSION: Cardiomegaly. Hiatal hernia. Electronically Signed: Yan Urbano, at 10:17 EDT , Service support , Abnormal Lab Results 05/18/19 05/18/19 05/18/19 09:48 09:48 09:48 WBC 9.6 RBC 4.36 Hgb 11.7 L Hct 37.6 MCV 86.2 MCH 26.8 L MCHC 31.1 L RDW Std Deviation 54.3 H RDW Coeff of Chepe 17.2 H Plt Count 270 MPV 10.2 Immature Gran % (Auto) 0.300 Neut % (Auto) 71.5 H Lymph % (Auto) 18.3 L [place] % (Auto) 7.6 Eos % (Auto) 1.8 Baso % (Auto) 0.5 Absolute Neuts (auto) 6.9 Absolute Lymphs (auto) 1.76 Nucleated RBC % 0 PT Cancelled INR Cancelled Sodium 136 Potassium 4.0 Chloride 103 Carbon Dioxide 27.0 Anion Gap 6 BUN 8 Creatinine 0.76 Estim Creat Clear Calc 84.75 Est GFR (MDRD) Af Amer 104 Est GFR (MDRD) Non-Af 86 BUN/Creatinine Ratio 10.5 Glucose 93 Calcium 8.8 Magnesium 1.9 Total Bilirubin 0.20 Direct Bilirubin 0.06 AST 14 L ALT 16 Alkaline Phosphatase 96 Troponin I < 0.015 B-Natriuretic Peptide Total Protein 7.3 Albumin 3.1 L Globulin 4.2 Lipase 101 05/18/19 09:48 WBC RBC Hgb Hct MCV MCH MCHC RDW Std Deviation RDW Coeff of Chepe Plt Count MPV Immature Gran % (Auto) Neut % (Auto) Lymph % (Auto) [place] % (Auto) Eos % (Auto) Baso % (Auto) Absolute Neuts (auto) Absolute Lymphs (auto) Nucleated RBC % PT INR Sodium Potassium Chloride Carbon Dioxide Anion Gap BUN Creatinine Estim Creat Clear Calc Est GFR (MDRD) Af Amer Est GFR (MDRD) Non-Af BUN/Creatinine Ratio Glucose Calcium Magnesium Total Bilirubin Direct Bilirubin AST ALT Alkaline Phosphatase Troponin I B-Natriuretic Peptide 48.4 Total Protein Albumin Globulin Lipase - Rhythm Strip Rhythm Strip: Sinus Rhythm Rate: 80 Ectopy: None - EKG Initial EKG Interpretation: Sinus Rhythm, No Acute Injury Pattern Prior: Unchanged - Medical Decision Making The patient presents to the emergency department with chest pain and dyspnea. She denies any significant history of coronary vascular disease, but does have underlying rheumatoid arthritis and history of lupus anticoagulant. She states she is been compliant with her Coumadin. EKG was obtained which showed sinus rhythm without any acute ischemic change. The patient underwent x-ray. There was evidence of enlarged cardiac silhouette. Screening labs including cardiac enzymes were unremarkable. Based on the patient's age and risk factors, I do feel that she would benefit from a cardiac rule out. Patient was discussed with the hospitalist. Impression 1. Chest pain ED Disposition - Plan for ED Patient: Referrals: Tarah Dubon DO [Primary Care Provider] -
[2019-05-18 09:55] LABS: Absolute Lymphocyte Count 1.76 X10^3/uL (0.83-4.51); Absolute Neutrophil Count 6.9 X10^3/uL (2.0-7.7); Basophil# 0.05 X10^3/uL; Basophil% 0.5 % (0-1); Eosinophil# 0.17 X10^3/uL; Eosinophils% 1.8 % (0-5); Hematocrit 37.6 % (37-47); Hemoglobin 11.7 g/dL (12.0-15.0); Lymphocyte # 1.76 X10^3/ul (4.0); Lymphocyte % 18.3 % (19-41); Mean Corp Hgb Conc 31.1 g/dL (32-36); Mean Corpuscular Hgb 26.8 pg (27.0-32.0); Mean Corpuscular Volume 86.2 fL (81-99); Mean Platelet Vol. 10.2 fl (6.2-12.0); Monocyte# 0.73 X10^3/uL; Monocyte% 7.6 % (0-10); NRBC Flagged by Analyzer 0 % (0-5); Neutrophil # 6.88 X10^3/uL (2.7-7.7); Neutrophil % 71.5 % (47-70); Platelet Count 270 K/mm3 (150-450); RBC Distribution Width CV 17.2 % (11.6-14.6); RBC Distribution Width SD 54.3 fl (35.1-43.9); Red Blood Count 4.36 M/mm3 (4.2-5.4); White Blood Count 9.6 K/mm3 (4.4-11.0)
[2019-05-18 10:24] LABS: BNP,B-Type NATRIURETIC PEPTIDE 48.4 pg/mL (0-100)
[2019-05-18 10:30] LABS: AST(SGOT) 14 U/L (15-37); Alanine Aminotransfer ALT/SGPT 16 U/L (13-56); Albumin, Serum 3.1 g/dL (3.2-5.0); Alkaline Phosphatase 96 U/L (45-117); Anion Gap 6 (5-15); BUN 8 mg/dL (7-18); BUN/Creat Ratio 10.5 RATIO (10-20); Bilirubin, Direct 0.06 mg/dL (0.00-0.30); Calcium,Total 8.8 mg/dL (8.5-10.1); Chloride 103 mmol/L (98-107); Creatinine, Serum 0.76 mg/dL (0.55-1.02); EST Glomerular Filtration Rate 86 mL/min (>60); Est Glom Filt Rate - Afr Amer 104 mL/min (>60); Estimated Creatinine Clearance 84.75 ml/min; Globulin 4.2 g/dL (2.2-4.2); Glucose 93 mg/dL (74-106); Lipase 101 U/L (73-393); Magnesium 1.9 mg/dL (1.6-2.6); Protein, Total 7.3 g/dL (6.4-8.2); Sodium Level 136 mmol/L (136-145)
[2019-05-18] MEDS: Aspirin 81 MG TAB.CHEW 324 MG PO (10:31)
[2019-05-18] MEDS: 0.9% Normal Saline 1,000 ML 150 ML IV (10:31)
[2019-05-18] MEDS: Ondansetron 4 MG/2 ML Vial IV (10:31)
[2019-05-18] MEDS: Nitroglycerin SL (ED/IMG/CATH) 0.4 MG TABLET SUBLINGUAL ×3 (10:32→10:42)
[2019-05-18 10:42] LABS: International Normalized Ratio 2.7
[2019-05-18] MEDS: Acetaminophen 500 MG Tablet 1000 MG PO (10:55)
--- NOTE | 2019-05-18 14:12 | EKG12_ITS ---
Test Reason : CP Blood Pressure : / mmHG Vent. Rate : 086 BPM Atrial Rate : 086 BPM P-R Int : 144 ms QRS Dur : 088 ms QT Int : 354 ms P-R-T Axes : 047 057 074 degrees QTc Int : 423 ms Normal sinus rhythm Normal ECG Confirmed by ELADIO SCHWARZ ([id number]), editor publications GILBERT ZHOU ([id number]) on 05/25/2019 9:12:05 AM Referred By: OZZY Confirmed By:ELADIO SCHWARZ
--- NOTE | 2019-05-18 16:57 | PCM.HP.STD ---
Problem List (1) Ulcer of left lower extremity Status: Chronic (2) Lupus Status: Chronic History of Present Illness Date of Admission: 05/18/19 Chief Complaint: Chest pain The patient is a 48 year old F with PMH as below who in November of this year had compartment syndrome and has had infections in her left lower extremity from this. She recently had a skin graft and is being seen at the wound center on hyperbaric oxygen as well as chronic antibiotics. Presents with chest pain which started at around 3 PM yesterday afternoon and has not resolved. She states that it has increased and decreased in intensity but nothing has made it better or worse. It is not worsened with activity. She denies any shortness of breath, diaphoresis, radiation of the pain. She says it is in the center of her chest and is achy. At times she is felt like the pain was worse with deep inspiration but that has not been a consistent finding. In the ER she was found to have a normal EKG with an unremarkable troponin, and an INR of 2.7, she is on Coumadin for lupus anticoagulant and has had a PE in the past. Her INR is therapeutic and has been for the last several weeks. Past Medical History Past Medical History (Chronic Problems): Chronic Problems Ulcer of left lower extremity (Chronic) Ulcer of left lower extremity with fat layer exposed (Chronic) Lupus (Chronic) 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) on Methotrexate for Lupus High risk medication use (Chronic) on Methotrexate for Lupus [facility] current use of anticoagulant (Chronic) Allergies adhesive tape Adverse Reaction (Verified 05/18/19 09:38) Rash Home Medications: Ambulatory Orders Medication Instructions Recorded Aripiprazole [Abilify] 2 mg PO DAILY 07/10/18 Metoprolol Succinate [Toprol Xl] 25 mg PO DAILY 07/10/18 Omeprazole 40 mg PO DAILY 07/10/18 Prednisone 4 mg PO UD 07/10/18 Ranitidine [Zantac] 150 mg PO QHS 07/10/18 Bupropion HCl [Bupropion Xl] 300 mg PO DAILY 08/25/18 Ropinirole HCl [Ropinirole ER] 2 mg PO QHS 08/25/18 Warfarin [Coumadin] 5 mg PO DAILY #0 12/20/18 Folic Acid 1 mg PO DAILY 01/23/19 Baclofen [Lioresal] 10 mg PO Q6H PRN PRN 03/27/19 Ferrous Sulfate 325 mg PO DAILY 03/27/19 Lactobacillus Acidophilus 1 ea PO BID 03/27/19 [Acidophilus] Venlafaxine XR [Effexor Xr] 225 mg PO DAILY 04/10/19 traZODone [Desyrel] 150 mg PO QHS 04/10/19 Diazepam [Valium] 5 mg PO 4X/DAY PRN PRN #30 tab 04/11/19 Famotidine [Pepcid] 20 mg PO HS tab 04/11/19 amoxicillin 875 mg-potassium 1 tab PO Q12H #28 tab 05/14/19 clavulanate 125 mg tablet levofloxacin 500 mg tablet 500 mg PO DAILY #14 tab 05/14/19 HYDROmorphone tablet [Dilaudid] 2 mg PO Q6H PRN PRN 05/18/19 Prednisone 8 mg PO UD 05/18/19 Surgical History: - - bilateral knee replacement Psychiatric History: No pertinent psych hx 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 Denies: Palpitations Respiratory: Denies: Cough, Shortness of breath at rest, Sputum production Gastrointestinal: Denies: Abdominal Pain, Nausea, Vomiting Genitourinary: Denies: Dysuria Musculoskeletal: Denies: Joint Pain, Joint Tenderness Skin: Denies: Rash, Wounds Neurological: Denies: Numbness, Tingling, Focal weakness Psychiatric: Denies: Anxiety, Depression Hematologic/ Lymphatic: Denies: Easy Bruising, Easy Bleeding VTE Information - Inpt Only VTE Present on Admission: No - Physical Exam Vitals/I&O's: Vital Signs Temp Pulse Resp BP Pulse Ox 98.4 F 83 18 137/78 H 97 05/18/19 12:28 05/18/19 12:37 05/18/19 12:28 05/18/19 12:28 05/18/19 12:28 Oxygen Flow Rate (L/min) 2 Oxygen Delivery Method Room Air Weight: 334 lb 7.06 oz Body Mass Index (BMI) 53.9 Finger Stick Blood Glucose 115 Intake and Output for Last 24 Hours 05/16/19 05/17/19 05/18/19 23:59 23:59 23:59 Intake Total 535 / 535 Balance 535 / 535 General: Alert, Oriented x3, Cooperative, No apparent distress HEENT: Atraumatic, PERRLA, EOMI, Normocephalic Oral: Moist Mucosa Neck: Supple, No JVD Lungs: Clear to auscultation, Normal air movement, No rhonchi, No wheeze, No rales Cardiovascular: Regular rate, Regular Rhythm, Normal S1, Normal S2, No murmurs Abdomen: Soft, Non Tender, Non-Distended, No Hepato-splenomegaly, Obese Extremities: No edema, Capillary Refill Less than 3 Seconds Skin: - - Chronic wound on left lower extremity which is healing. Dressings are intact and clean. Neurological: Neuro grossly intact, Sensory exam intact to light touch and pain Psych/Mental Status: Normal Affect, Appropriate Laboratory Results 05/18/19 09:48: WBC 9.6, RBC 4.36, Hgb 11.7 L, Hct 37.6, MCV 86.2, MCH 26.8 L, MCHC 31.1 L, RDW Std Deviation 54.3 H, RDW Coeff of Chepe 17.2 H, Plt Count 270, MPV 10.2, Immature Gran % (Auto) 0.300, Neut % (Auto) 71.5 H, Lymph % (Auto) 18.3 L, Preble % (Auto) 7.6, Eos % (Auto) 1.8, Baso % (Auto) 0.5, Absolute Neuts (auto) 6.9, Absolute Lymphs (auto) 1.76, Nucleated RBC % 0 05/18/19 09:48: PT Cancelled, INR Cancelled 05/18/19 09:48: Sodium 136, Potassium 4.0, Chloride 103, Carbon Dioxide 27.0, Anion Gap 6, BUN 8, Creatinine 0.76, Estim Creat Clear Calc 84.75, Est GFR (MDRD) Af Amer 104, Est GFR (MDRD) Non-Af 86, BUN/Creatinine Ratio 10.5, Glucose 93, Calcium 8.8, Magnesium 1.9, Total Bilirubin 0.20, Direct Bilirubin 0.06, AST 14 L, ALT 16, Alkaline Phosphatase 96, Troponin I < 0.015, Total Protein 7.3, Albumin 3.1 L, Globulin 4.2, Lipase 101 05/18/19 09:48: B-Natriuretic Peptide 48.4 05/18/19 10:15: PT 29.0 H, INR 2.7 05/18/19 12:50: Troponin I < 0.015 05/18/19 15:50: Troponin I < 0.015 Current Medications Amoxicillin/Clavulanate Potassium (Augmentin Tablet) mg PO Q12H LENCHO Aripiprazole (Abilify) 2 mg PO DAILY [facility] Baclofen (Lioresal) 10 mg PO Q6H PRN PRN PRN Reason: muscle relax Bupropion HCl (Wellbutrin Xl) 300 mg PO DAILY [facility] Diazepam (Valium) 5 mg PO 4X/DAY PRN PRN PRN Reason: SPASMS Famotidine (Pepcid) 20 mg PO HS [facility] Ferrous Sulfate (Ferrous Sulfate) 325 mg PO DAILY [facility] Folic Acid (Folic Acid) 1 mg PO DAILY [facility] Hydromorphone HCl (Dilaudid Tablet) 2 mg PO Q6H PRN PRN PRN Reason: Pain Score 1-10/10 Levofloxacin (Levaquin Tablet) 500 mg PO DAILY [facility] Metoprolol Succinate (Toprol Xl (Beta Christin)) 25 mg PO DAILY [facility] Nitroglycerin (Nitrostat) 0.4 mg SUBLINGUAL Q5M PRN PRN Reason: CARDIAC/CHEST PAIN Non-Formulary Medication (Lactobacillus Acidophilus [Acidophilus]) 1 ea PO BID [facility] Non-Formulary Medication (Omeprazole) 40 mg PO DAILY [facility] Non-Formulary Medication (Ranitidine) 150 mg PO QHS [facility] Non-Formulary Medication (Ropinirole Hcl [Ropinirole Er]) 2 mg PO QHS [facility] Prednisone () 4 mg PO UD [facility] Prednisone () 8 mg PO UD [facility] Trazodone HCl (Desyrel) 150 mg PO QHS [facility] Venlafaxine HCl (Effexor Xr) 225 mg PO DAILY [facility] Warfarin Sodium (Coumadin (Pbkc)) 5 mg PO DAILY [facility] Assessment/Plan All Active Problems Skin graft disorder (Acute) Other complications of skin graft (allograft) (autograft) (Acute) Open wound of left lower extremity (Acute) Hematoma (Acute) Compartment syndrome of left lower extremity (Acute) 1. Chest pain -She says that there is a significant family history with her mom grandfather on her mother side as well as her aunt on her mother side -She has had a stress test in the remote past but she does not remember why and what the result was -She has had 3- troponins and an unremarkable EKG -We will plan for stress test in the morning -Given her history of rheumatoid arthritis and lupus anticoagulant, there could be an autoimmune component to her chest pain with pleurisy. If her chest pain is still present tomorrow and her stress test is negative it may be beneficial to proceed with a CT scan of her chest 2. Rheumatoid arthritis/lupus anticoagulant -Continue with daily steroids and Coumadin -She has had some difficulty getting her Coumadin down she says that her INR was above for couple weeks ago and is now 2.7. -Continue to monitor with daily INR 3. Left lower extremity nonhealing wounds from surgery from compartment syndrome from a hematoma in November with chronic pain -She is undergoing hyperbaric therapy as an outpatient -We will continue with Augmentin and Levaquin that she is on chronically -We will continue with her home pain medications -Continue with home iron for her iron deficiency anemia from the hematoma 4. Anxiety/depression -We will continue with her Valium, Wellbutrin, Abilify, Effexor -Her mental health has been stable of late 5. GERD -Stable -Continue with PPI and H2 christin 6. Morbid obesity -Discussed lifestyle modifications DVT: Coumadin Code Visit OBSV E&M: [id number] Initial observation care L3
[2019-05-18] MEDS: HYDROmorphone 2 MG TABLET PO ×2 (17:10→22:49)
[2019-05-18] MEDS: Amox/Clavulanate 875 MG Tablet PO (21:04)
[2019-05-18] MEDS: traZODone 50 MG Tablet 150 MG PO (21:05)
[2019-05-18] MEDS: Famotidine 20 MG Tablet PO (21:05)
[2019-05-18] MEDS: Pramipexole Di-HCl 0.25 MG Tablet PO (21:06)
[2019-05-18] MEDS: diazePAM 5 MG Tablet PO (22:54)
[2019-05-19 02:10] VITALS: BP 129/75; PULSE 89; RESP 16; TEMP 36.6; O2SAT 96
[2019-05-19 02:59] VITALS: PULSE 90
[2019-05-19] MEDS: Pramipexole Di-HCl 0.25 MG Tablet PO (04:53)
[2019-05-19] MEDS: diazePAM 5 MG Tablet PO (04:57)
[2019-05-19] MEDS: HYDROmorphone 2 MG TABLET PO ×2 (04:57→11:45)
[2019-05-19 06:01] LABS: Basophil# 0.04 X10^3/uL; Basophil% 0.6 % (0-1); Eosinophil# 0.25 X10^3/uL; Eosinophils% 3.7 % (0-5); Hematocrit 35.2 % (37-47); Hemoglobin 10.9 g/dL (12.0-15.0); Lymphocyte % 40.1 % (19-41); Mean Corpuscular Hgb 26.8 pg (27.0-32.0); Mean Corpuscular Volume 86.5 fL (81-99); Mean Platelet Vol. 9.6 fl (6.2-12.0); Monocyte# 0.74 X10^3/uL; NRBC Flagged by Analyzer 0 % (0-5); Neutrophil # 2.99 X10^3/uL (2.7-7.7); Neutrophil % 44.5 % (47-70); POSITIVE MORPHOLOGY YES; Platelet Count 287 K/mm3 (150-450); RBC Distribution Width CV 17.3 % (11.6-14.6); RBC Distribution Width SD 54.8 fl (35.1-43.9); Red Blood Count 4.07 M/mm3 (4.2-5.4); White Blood Count 6.7 K/mm3 (4.4-11.0)
[2019-05-19 06:09] LABS: International Normalized Ratio 2.8
[2019-05-19 06:16] LABS: Differential Indicated SCAN CRITERIA MET
[2019-05-19 06:18] LABS: Anion Gap 6 (5-15); BUN 9 mg/dL (7-18); BUN/Creat Ratio 13.2 RATIO (10-20); Calcium,Total 8.7 mg/dL (8.5-10.1); Chloride 105 mmol/L (98-107); Creatinine, Serum 0.68 mg/dL (0.55-1.02); EST Glomerular Filtration Rate 98 mL/min (>60); Est Glom Filt Rate - Afr Amer 118 mL/min (>60); Estimated Creatinine Clearance 94.72 ml/min; Glucose 83 mg/dL (74-106); Potassium 3.7 mmol/L (3.5-5.1); Sodium Level 140 mmol/L (136-145)
[2019-05-19 06:40] LABS: Differential Comment SCANNED
[2019-05-19 07:09] VITALS: PULSE 95
[2019-05-19 07:50] VITALS: BP 127/79; PULSE 70; RESP 18; TEMP 36.6; O2SAT 97
--- NOTE | 2019-05-19 09:44 | STRESSREP ---
Stress Test Report Date: 05-19-19 Procedure: Pharmacologic stress nuclear imaging study Indications: Chest pain; shortness of breath/dyspnea Consent: Per the patient Procedure: The patient underwent pharmacologic (Regadenoson) evaluation with a peak heart rate of 112 beats per minute (65 %predicted maximal heart rate) and a peak blood pressure of 130/78 mmHg. The baseline ECG demonstrated sinus tachycardia; nonspecific ST/T wave abnormality. The peak pharmacologic ECG demonstrated no obvious ECG changes. There were no cardiac dysrhythmias pretest, during pharmacologic infusion, or recovery. There was no complaint of chest discomfort during pharmacologic infusion or recovery. The examination was discontinued secondary to completion of protocol. Impression: 1. Pharmacologic (Regadenoson) evaluation 2. Peak pharmacologic ECG with continued nonspecific ST/T wave abnormality with no obvious ECG changes compared with baseline. 3. There were no cardiac dysrhythmias pretest, during pharmacologic infusion, or recovery. 4. Nuclear images pending Myocardial perfusion imaging study: Technique: The patient was injected with 14.5 millicuries of technetium 99m Cardiolite and subsequently rest SPECT Cardiolite nuclear imaging was obtained in the horizontal long, vertical long, and short axis views. The patient underwent pharmacologic (Regadenoson) evaluation with a peak heart rate of 112 beats per minute (65 % percent predicted maximal heart rate) and a peak blood pressure of 130/78 mmHg. The patient was injected with 45.0 millicuries of technetium 99m Cardiolite and subsequently stress SPECT Cardiolite nuclear imaging was obtained in the horizontal long, vertical long, and short axis views. A gated Cardiolite study at peak stress was obtained. Interpretation: Rest and stress SPECT Cardiolite nuclear imaging status post realignment, normalization, and attenuation correction demonstrate areas of gastrointestinal/tracer uptake near the inferior segments and at rest areas of diminished tracer uptake in portions of the mid to distal anterior and anteroseptal segments which status post stress appears to be improved and/or normalized. There is end systolic thickening and brightening. The gated Cardiolite study demonstrates myocardial thickening and inward wall motion. The reported LVEF is 64 %. Impression: 1. Rest SPECT Cardiolite nuclear imaging demonstrate myocardial perfusion changes compatible with the findings of extracardiac/gastrointestinal tracer uptake near the inferior segments and areas of diminished myocardial perfusion/tracer uptake which appear to be more prominent at rest as opposed to stress appearing compatible shifting soft tissue attenuation/artifact with no myocardial perfusion changes considered diagnostic for associated stress-induced myocardial ischemia. 2. The gated Cardiolite study reports an LVEF of 64 %. This note was generated with [employer] software. It may contain incorrect words, spelling, and punctuation that were not noted in checking the note before signing.
[2019-05-19] MEDS: Ferrous Sulfate 325 MG Tablet PO (11:40)
[2019-05-19] MEDS: ARIPiprazole 2 MG Tablet PO (11:41)
[2019-05-19] MEDS: predniSONE 1 MG Tablet 4 MG PO (11:41)
[2019-05-19] MEDS: Folic Acid 1 MG Tablet PO (11:41)
[2019-05-19] MEDS: Amox/Clavulanate 875 MG Tablet PO (11:42)
[2019-05-19] MEDS: Venlafaxine XR 75 MG Capsule 225 MG PO (11:42)
[2019-05-19] MEDS: levoFLOXacin 500 MG Tablet PO (11:43)
[2019-05-19 11:44] VITALS: PULSE 78
[2019-05-19] MEDS: buPROPion (XL) 300 MG TABLET.XL PO (11:44)
[2019-05-19] MEDS: Metoprolol(XL)Succ 25 MG Tablet PO (11:44)
[2019-05-19] MEDS: Pantoprazole Sodium 40 MG Tablet PO (11:44)
--- NOTE | 2019-05-19 11:46 | DCINST_ITS ---
You will use the following diet at home:: Cardiac Your food should be the consistency of: Regular Your liquids should be the consistency of: Regular/Thin Discharge Activity: Return to Normal Activity Call your doctor if you observe: Fever of 101 or Higher, Shortness of breath, Dizziness, Fainting spells, Swelling in the ankles, Chest pain, Increased palpitations (irregular heartbeat) Allergies/Adverse Reactions: Allergies adhesive tape Adverse Reaction (Verified 05/18/19 09:38) Rash Medications to take at Discharge Aripiprazole [Abilify] 2 mg PO DAILY 07/10/18 Metoprolol Succinate [Toprol Xl] 25 mg PO DAILY 07/10/18 Omeprazole 40 mg PO DAILY 07/10/18 Prednisone 4 mg PO UD 07/10/18 Ranitidine [Zantac] 150 mg PO QHS 07/10/18 Bupropion HCl [Bupropion Xl] 300 mg PO DAILY 08/25/18 Ropinirole HCl [Ropinirole ER] 2 mg PO QHS 08/25/18 Warfarin [Coumadin] 5 mg PO DAILY #0 12/20/18 Folic Acid 1 mg PO DAILY 01/23/19 Baclofen [Lioresal] 10 mg PO Q6H PRN PRN 03/27/19 Ferrous Sulfate 325 mg PO DAILY 03/27/19 Lactobacillus Acidophilus [Acidophilus] 1 ea PO BID 03/27/19 Venlafaxine XR [Effexor Xr] 225 mg PO DAILY 04/10/19 traZODone [Desyrel] 150 mg PO QHS 04/10/19 Diazepam [Valium] 5 mg PO 4X/DAY PRN PRN #30 tab 04/11/19 Famotidine [Pepcid] 20 mg PO HS tab 04/11/19 amoxicillin 875 mg-potassium clavulanate 125 mg tablet 1 tab PO Q12H #28 tab 05/14/19 levofloxacin 500 mg tablet 500 mg PO DAILY #14 tab 05/14/19 HYDROmorphone tablet [Dilaudid] 2 mg PO Q6H PRN PRN 05/18/19 Prednisone 8 mg PO UD 05/18/19 Primary Care Physician: Tarah Dubon DO [Primary Care Provider] - Please follow up with your Primary Care Physician in: 3-5 days Test Results: Test results from this visit will be discussed in further detail at your follow- up appointment, if applicable.
--- NOTE | 2019-05-19 11:50 | PCM.DC.SUM ---
Discharge Date and Diagnosis Date of Admission: 05/18/19 Date of Discharge: 05/19/19 - Secondary Discharge Diagnosis Chronic Problems Ulcer of left lower extremity (Chronic) Ulcer of left lower extremity with fat layer exposed (Chronic) Lupus (Chronic) 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) on Methotrexate for Lupus High risk medication use (Chronic) on Methotrexate for Lupus [facility] current use of anticoagulant (Chronic) Hospital Course and Treatment Imaging Results: Nuclear Stress: Impression: 1. Pharmacologic (Regadenoson) evaluation 2. Peak pharmacologic ECG with continued nonspecific ST/T wave abnormality with no obvious ECG changes compared with baseline. 3. There were no cardiac dysrhythmias pretest, during pharmacologic infusion, or recovery. 4. Nuclear images pending Myocardial perfusion imaging study: Technique: The patient was injected with 14.5 millicuries of technetium 99m Cardiolite and subsequently rest SPECT Cardiolite nuclear imaging was obtained in the horizontal long, vertical long, and short axis views. The patient underwent pharmacologic (Regadenoson) evaluation with a peak heart rate of 112 beats per minute (65 % percent predicted maximal heart rate) and a peak blood pressure of 130/78 mmHg. The patient was injected with 45.0 millicuries of technetium 99m Cardiolite and subsequently stress SPECT Cardiolite nuclear imaging was obtained in the horizontal long, vertical long, and short axis views. A gated Cardiolite study at peak stress was obtained. Interpretation: Rest and stress SPECT Cardiolite nuclear imaging status post realignment, normalization, and attenuation correction demonstrate areas of gastrointestinal/tracer uptake near the inferior segments and at rest areas of diminished tracer uptake in portions of the mid to distal anterior and anteroseptal segments which status post stress appears to be improved and/or normalized. There is end systolic thickening and brightening. The gated Cardiolite study demonstrates myocardial thickening and inward wall motion. The reported LVEF is 64 %. Impression: 1. Rest SPECT Cardiolite nuclear imaging demonstrate myocardial perfusion changes compatible with the findings of extracardiac/gastrointestinal tracer uptake near the inferior segments and areas of diminished myocardial perfusion/tracer uptake which appear to be more prominent at rest as opposed to stress appearing compatible shifting soft tissue attenuation/artifact with no myocardial perfusion changes considered diagnostic for associated stress-induced myocardial ischemia. 2. The gated Cardiolite study reports an LVEF of 64 %. CXR: IMPRESSION: Cardiomegaly. Hiatal hernia. Consults: None Operations: None Procedures: Nuclear stress test Summary of Care Provided: Per HPI: The patient is a 48 year old F with PMH as below who in November of this year had compartment syndrome and has had infections in her left lower extremity from this. She recently had a skin graft and is being seen at the wound center on hyperbaric oxygen as well as chronic antibiotics. Presents with chest pain which started at around 3 PM yesterday afternoon and has not resolved. She states that it has increased and decreased in intensity but nothing has made it better or worse. It is not worsened with activity. She denies any shortness of breath, diaphoresis, radiation of the pain. She says it is in the center of her chest and is achy. At times she is felt like the pain was worse with deep inspiration but that has not been a consistent finding. In the ER she was found to have a normal EKG with an unremarkable troponin, and an INR of 2.7, she is on Coumadin for lupus anticoagulant and has had a PE in the past. Her INR is therapeutic and has been for the last several weeks. Hospital Course: 1. Chest [id number] female with a history of rheumatoid arthritis and lupus anticoagulant presents with chronic chest pain for the last 24 to 36 hours. She states that nothing made it better or worse. She has been on therapeutic Coumadin and her INR has been 2.7 so it was unlikely that she had a PE. She underwent a stress test today which was normal and she had 3 normal troponins and an unremarkable EKG. This morning on exam she stated that her chest pain had completely resolved and she felt back to her baseline. Given the fact that her stress test was normal discussed discharge planning with her and she understood the risks and benefits. She will need to follow-up with her primary care doctor in 3 to 5 days as well with the wound clinic to continue the antibiotics as well as hyperbaric oxygen for her left lower extremity nonhealing wounds. 2. Her other medical diagnoses were evaluated and her home medications were continued where appropriate - Physical Exam Vitals/I&O's: Vital Signs Temp Pulse Resp BP Pulse Ox 97.9 F 78 18 127/79 H 97 05/19/19 07:50 05/19/19 11:44 05/19/19 07:50 05/19/19 07:50 05/19/19 07:50 Oxygen Flow Rate (L/min) 2 Oxygen Delivery Method Room Air Weight: 334 lb 7.06 oz Body Mass Index (BMI) 53.9 Finger Stick Blood Glucose 115 Intake and Output for Last 24 Hours 05/17/19 05/18/19 05/19/19 23:59 23:59 23:59 Intake Total 1015 / 1015 290 / 290 Balance 1015 / 1015 290 / 290 General: Alert, Oriented x3, Cooperative, No apparent distress HEENT: Atraumatic, PERRLA, EOMI, Normocephalic Oral: Moist Mucosa Neck: Supple, No JVD Lungs: Clear to auscultation, Normal air movement, No rhonchi, No wheeze, No rales Cardiovascular: Regular rate, Regular Rhythm, Normal S1, Normal S2, No murmurs Abdomen: Soft, Non Tender, Non-Distended, No Hepato-splenomegaly, Obese Extremities: No edema, Capillary Refill Less than 3 Seconds Skin: - - Chronic wound on left lower extremity which is healing. Dressings are intact and clean. Neurological: Neuro grossly intact, Sensory exam intact to light touch and pain Psych/Mental Status: Normal Affect, Appropriate Laboratory Results 05/18/19 12:50: Troponin I < 0.015 05/18/19 15:50: Troponin I < 0.015 05/19/19 05:36: WBC 6.7, RBC 4.07 L, Hgb 10.9 L, Hct 35.2 L, MCV 86.5, MCH 26.8 L, MCHC 31.0 L, RDW Std Deviation 54.8 H, RDW Coeff of Chepe 17.3 H, Plt Count 287, MPV 9.6, Immature Gran % (Auto) 0.100, Neut % (Auto) 44.5 L, Lymph % (Auto) 40.1, [place] % (Auto) 11.0 H, Eos % (Auto) 3.7, Baso % (Auto) 0.6, Absolute Neuts (auto) 3.0, Absolute Lymphs (auto) 2.70, Nucleated RBC % 0, Differential Comment SCANNED 05/19/19 05:36: PT 30.0 H, INR 2.8 05/19/19 05:36: Sodium 140, Potassium 3.7, Chloride 105, Carbon Dioxide 29.0, Anion Gap 6, BUN 9, Creatinine 0.68, Estim Creat Clear Calc 94.72, Est GFR (MDRD) Af Amer 118, Est GFR (MDRD) Non-Af 98, BUN/Creatinine Ratio 13.2, Glucose 83, Calcium 8.7 Current Medications Amoxicillin/Clavulanate Potassium (Augmentin Tablet) 875 mg PO Q12 [facility] Last Admin: 05/19/19 11:42 Dose: 875 mg Documented by: Aripiprazole (Abilify) 2 mg PO DAILY [facility] Last Admin: 05/19/19 11:41 Dose: 2 mg Documented by: Baclofen (Lioresal) 10 mg PO Q6H PRN PRN PRN Reason: muscle relax Bupropion HCl (Wellbutrin Xl) 300 mg PO DAILY [facility] Last Admin: 05/19/19 11:44 Dose: 300 mg Documented by: Diazepam (Valium) 5 mg PO 4X/DAY PRN PRN PRN Reason: SPASMS Last Admin: 05/19/19 04:57 Dose: 5 mg Documented by: Famotidine (Pepcid) 20 mg PO HS [facility] Last Admin: 05/18/19 21:05 Dose: 20 mg Documented by: Ferrous Sulfate (Ferrous Sulfate) 325 mg PO DAILY@0800 [facility] Last Admin: 05/19/19 11:40 Dose: 325 mg Documented by: Folic Acid (Folic Acid) 1 mg PO DAILY@0800 [facility] Last Admin: 05/19/19 11:41 Dose: 1 mg Documented by: Hydromorphone HCl (Dilaudid Tablet) 2 mg PO Q6H PRN PRN PRN Reason: Pain Score 1-10/10 Last Admin: 05/19/19 11:45 Dose: 2 mg Documented by: Lactobacillus Acidophilus (Acidophilus) 1 tablet PO BID [facility] Last Admin: 05/19/19 11:42 Dose: 1 tablet Documented by: Levofloxacin (Levaquin Tablet) 500 mg PO DAILY [facility] Last Admin: 05/19/19 11:43 Dose: 500 mg Documented by: Metoprolol Succinate (Toprol Xl (Beta Christin)) 25 mg PO DAILY [facility] Last Admin: 05/19/19 11:44 Dose: 25 mg Documented by: Nitroglycerin (Nitrostat) 0.4 mg SUBLINGUAL Q5M PRN PRN Reason: CARDIAC/CHEST PAIN Pantoprazole Sodium (Protonix) 40 mg PO DAILY [facility] Last Admin: 05/19/19 11:44 Dose: 40 mg Documented by: Pramipexole Dihydrochloride (Mirapex) 0.25 mg PO TID [facility] Last Admin: 05/19/19 04:53 Dose: 0.25 mg Documented by: Prednisone () 4 mg PO SuTuTh@0800 [facility] Last Admin: 05/19/19 11:41 Dose: 4 mg Documented by: Prednisone () 8 mg PO MoWeFrSa@0800 [facility] Trazodone HCl (Desyrel) 150 mg PO QHS [facility] Last Admin: 05/18/19 21:05 Dose: 150 mg Documented by: Venlafaxine HCl (Effexor Xr) 225 mg PO DAILY [facility] Last Admin: 05/19/19 11:42 Dose: 225 mg Documented by: Warfarin Sodium (Coumadin (Pbkc)) 5 mg PO DAILY@1700 [facility] Discharge Activity: Return to Normal Activity Call your doctor if you observe: Fever of 101 or Higher, Shortness of breath, Dizziness, Fainting spells, Swelling in the ankles, Chest pain, Increased palpitations (irregular heartbeat) Home Medications: Medications to take at Discharge Aripiprazole [Abilify] 2 mg PO DAILY 07/10/18 Metoprolol Succinate [Toprol Xl] 25 mg PO DAILY 07/10/18 Omeprazole 40 mg PO DAILY 07/10/18 Prednisone 4 mg PO UD 07/10/18 Ranitidine [Zantac] 150 mg PO QHS 07/10/18 Bupropion HCl [Bupropion Xl] 300 mg PO DAILY 08/25/18 Ropinirole HCl [Ropinirole ER] 2 mg PO QHS 08/25/18 Warfarin [Coumadin] 5 mg PO DAILY #0 12/20/18 Folic Acid 1 mg PO DAILY 01/23/19 Baclofen [Lioresal] 10 mg PO Q6H PRN PRN 03/27/19 Ferrous Sulfate 325 mg PO DAILY 03/27/19 Lactobacillus Acidophilus [Acidophilus] 1 ea PO BID 03/27/19 Venlafaxine XR [Effexor Xr] 225 mg PO DAILY 04/10/19 traZODone [Desyrel] 150 mg PO QHS 04/10/19 Diazepam [Valium] 5 mg PO 4X/DAY PRN PRN #30 tab 04/11/19 Famotidine [Pepcid] 20 mg PO HS tab 04/11/19 amoxicillin 875 mg-potassium clavulanate 125 mg tablet 1 tab PO Q12H #28 tab 05/14/19 levofloxacin 500 mg tablet 500 mg PO DAILY #14 tab 05/14/19 HYDROmorphone tablet [Dilaudid] 2 mg PO Q6H PRN PRN 05/18/19 Prednisone 8 mg PO UD 05/18/19 Primary Care Physician: Tarah Dubon DO [Primary Care Provider] - Please follow up with your Primary Care Physician in: 3-5 days Disposition: Home Minutes spent on discharge:: 35 Patient Condition:: Stable Medical Necessity - Tobacco Use Smoking Status: Never smoker Meaningful Use Info Meaningful Use Diagnoses (Choose all that apply): None applicable Code Visit OBSV E&M: 65690 Observation care discharge
== END 2019-05-19 11:46 | disposition home or self-care (01) ==
LOC: ED 09:52 → PCU 11:24
PROVIDERS: Admitting Provider Family Medicine; Emergency Provider Emergency Medicine; Family Provider Family Medicine; PCP Family Medicine; Visit Provider Family Medicine
DX: R07.89 Other chest pain (principal); M06.9 Rheumatoid arthritis, unspecified; D68.62 Lupus anticoagulant syndrome; R06.09 Other forms of dyspnea; K21.9 Gastro-esophageal reflux disease without esophagitis; D50.9 Iron deficiency anemia, unspecified; E66.01 Morbid (severe) obesity due to excess calories; T86.828 Other complications of skin graft (allograft) (autograft); Y83.8 Other surgical procedures as the cause of abnormal reaction of the patient, or of later complication, without mention of misadventure at the time of the procedure; M32.9 Systemic lupus erythematosus, unspecified; L97.821 Non-pressure chronic ulcer of other part of left lower leg limited to breakdown of skin; Z86.718 Personal history of other venous thrombosis and embolism; Z79.899 Other long term (current) drug therapy; Z79.01 Long term (current) use of anticoagulants; Z79.52 Long term (current) use of systemic steroids; Z68.43 Body mass index [BMI] 50.0-59.9, adult; Z71.3 Dietary counseling and surveillance; Z86.711 Personal history of pulmonary embolism
CPT/HCPCS: 36415; 71045; 78452; 80048; 80076; 83690; 83735; 83880; 84484; 85025; 85610; 87070; 87075; 87205; 93005; 93017; 96361; 96374; 99218; 99285; A9500; J7030; A4216; G0378; J2405; J2785

== ENCOUNTER 2019-05-21 10:00 | Outpatient (RCR) | payer MEDICAID, SELFPAY ==
[2019-04-21 00:48] VITALS: BP 126/85; PULSE 117; RESP 16; TEMP 36.4; BMI 53.5
[2019-04-27 13:05] VITALS: BP 127/79; PULSE 112; RESP 20; BMI 53.5
--- NOTE | 2019-04-27 15:17 | PN.PCM_ITS ---
(1) Other complications of skin graft (allograft) (autograft) Status: Acute Code(s): T86.828 - Other complications of skin graft (allograft) (autograft) (2) Skin graft disorder Status: Acute Code(s): T86.829 - Unspecified complication of skin graft (all ograft) (autograft) (3) Ulcer of left lower extremity Status: Chronic Code(s): L97.929 - Non-pressure chronic ulcer of unspecified part of left lower leg with unspecified severity (4) Ulcer of left lower extremity with fat layer exposed Status: Chronic Code(s): L97.922 - Non-pressure chronic ulcer of unspecified part of left lower leg with fat layer exposed (5) Lupus Status: Chronic Code(s): M32.9 - Systemic lupus erythematosus, unspecified (6) Immunocompromised state due to drug therapy Status: Chronic Code(s): Z79.899 - Other group home (current) drug therapy Comment: on Methotrexate for Lupus Type of Wound Date of Service: 04/27/19 Chief Complaint: Nonhealing fasciotomy ulcers left lateral leg and left medial leg with recent skin grafting 04/10/19. History of Wound: Surgery 04/10/19 - 1. Surgical preparation left medial leg with excisional debridement nonhealing fasciotomy ulcer and placement of AmnioFill placental connective tissue powder and STSG reconstruction from left flank (48 cm2). 2. Surgical preparation left lateral leg with excisional debridement nonhealing fasciotomy ulcer and placement of AmnioFill placental connective tissue powder and STSG reconstruction from left flank (20 cm2). Wound care - JOE NPWT. Operative culture - Enterobacter cloacae thus far. Preoperatively her culture showed Acinetobacter baumannii, Enterobacter cloacae, Streptococcus agalactiae, and Anaerobic cocci. She was treated perioperatively with Levaquin and Augmentin. Prealbumin from 04/11/19 was 18.8. Encourage nutritional supplementation with protein to help the healing process. She is experiencing compromise of her left medial skin graft with approx 20% compromise. She would benefit from HBOT to help with this compromise. She denies fever. Progress of Wound: Compromise of left medial skin graft. - Physical Exam Vital Signs Temp Pulse Resp BP 97.5 F L 112 H 20 H 127/79 H 04/21/19 00:48 04/27/19 13:05 04/27/19 13:05 04/27/19 13:05 General: Alert, Oriented x3, Cooperative HEENT: Atraumatic Oral: Moist Mucosa Lungs: Clear to auscultation, Normal air movement Cardiovascular: Regular rate, Regular Rhythm Abdomen: Soft, Non Tender Extremities: Capillary Refill Less than 3 Seconds, Edema, Peripheral Pulses Normal Skin: Ulcer/ Wound - Skin compromise over the left medial ulcer. Left lateral u lcer also starting to show compromise. Wound Measurements and Assessment WC - Nurse 1 - General Ulcer Measurement Start: 04/27/19 13:04 Freq: Status: Active Protocol: Activity Type Activity Date Activity User E-Sign Co-Sign Detail Recorded Client Recorded Date Recorded By Document 04/27/19 13:05 DL [id number] 04/27/19 13:12 DL 04/27/19 13:05 Wound Center Nurse 1 [Ulcer Assessment] #2 LLL Lateral -Combined with other wound No -Current Size (cm) - Length 9 -Current Size (cm) - Width 1.4 -Current Size (cm) - Depth 0.1 -Total Square Cm 12.6 -Photo Taken No -Epithelialization None Present -Tunneling No -Undermining/Tunneling No -Circular Undermining No -Exudate Amt None Present -Wound Margin Distinct, Outline Attached -Granulation Amt None Present (0 %) -Slough/Fibrin Yes -Necrosis Amt Large (67-100%) -Necrotic Tissue Type Eschar -Texture (Kisha-wound Skin Appearance) Assessed, Scarring -Moisture (Kisha-wound Skin Appearance Assessed,Dry/ ) Scaly -Color (Kisha-wound Skin Appearance) Assessed -Temperature (Kisha-wound Skin No Abnormality Appearance) (Pt Warm) -Tenderness on Palpation (Kisha-wound No Skin Appearance) -Ulcer Cleansing Rinsed/ Irrigated with Saline -Foul Odor after Cleansing No -Anesthetic Used 4% Lidocaine Solution #1 LLL medial -Combined with other wound No -Current Size (cm) - Length 15 -Current Size (cm) - Width 2.5 -Current Size (cm) - Depth 0.2 -Total Square Cm 37.5 -Photo Taken No -Epithelialization None Present -Tunneling No -Undermining/Tunneling No -Circular Undermining No -Exudate Amt Medium -Exudate Type Serosanguineous -Wound Margin Distinct, Outline Attached -Granulation Amt Small (1-33%) -Granulation Quality Red -Slough/Fibrin Yes -Necrosis Amt Large (67-100%) -Necrotic Tissue Type Adherent Slough -Texture (Kisha-wound Skin Appearance) Assessed, Scarring -Moisture (Kisha-wound Skin Appearance Assessed,Dry/ ) Scaly -Color (Kisha-wound Skin Appearance) Assessed, Erythema -Temperature (Kisha-wound Skin No Abnormality Appearance) (Pt Warm) -Tenderness on Palpation (Kisha-wound No Skin Appearance) -Ulcer Cleansing Rinsed/ Irrigated with Saline -Foul Odor after Cleansing No -Anesthetic Used 4% Lidocaine Solution WC - Nurse 2 - General Ulcer CM Notes Start: 04/27/19 13:04 Freq: Status: Active Protocol: Activity Type Activity Date Activity User E-Sign Co-Sign Detail Recorded Client Recorded Date Recorded By Document 04/27/19 13:17 MW [id number] 04/27/19 13:24 MW 04/27/19 13:17 Wound Center Nurse 2 [Procedure/Treatment] #2 LLL Lateral -Time 13:19 -Correct Patient Yes -Correct Side, Site, Position Yes -Correct Procedure Yes -Procedure Performed Yes -Type of Procedure Debridement -Clinical Debridement Selective -Post Debridement Size (cm) - Length 8.0 -Post Debridement Size (cm) - Width 1.5 -Post Debridement Size (cm) - Depth 0.1 -Total Square Cm 12.00 -Wound/Ulcer Outcome Not Healed -Ulcer Cleansing Rinsed/ Irrigated with Saline -Foul Odor after Cleansing No -Bioengineered Tissue No -Bleeding Controlled with Pressure -Offloading No -Treatment Response Procedure Tolerated Well #1 LLL medial -Time 13:18 -Correct Patient Yes -Correct Side, Site, Position Yes -Correct Procedure Yes -Procedure Performed Yes -Type of Procedure Debridement -Clinical Debridement Selective -Post Debridement Size (cm) - Length 14.8 -Post Debridement Size (cm) - Width 2.5 -Post Debridement Size (cm) - Depth 0.1 -Total Square Cm 37.00 -Wound/Ulcer Outcome Not Healed -Ulcer Cleansing Rinsed/ Irrigated with Saline -Foul Odor after Cleansing No -Bioengineered Tissue No -Bleeding Controlled with Pressure -Offloading No -Treatment Response Procedure Tolerated Well [See Physician Procedure note for Specifics] Pain Scale: 0-10 Numeric [Pain] -Is Patient Pain Free? Yes Musculoskeletal: No Tenderness to Palpation of Joints or Extremities Neurological: Neuro grossly intact Psych/Mental Status: Normal Affect, Appropriate Debridement Note Post-Debridement Measurements/Treatment WC - Nurse 2 - General Ulcer CM Notes Start: 04/27/19 13:04 Freq: Status: Active Protocol: Activity Type Activity Date Activity User E-Sign Co-Sign Detail Recorded Client Recorded Date Recorded By Document 04/27/19 13:17 MW [id number] 04/27/19 13:24 MW 04/27/19 13:17 Wound Center Nurse 2 #2 LLL Lateral -Time 13:19 -Correct Patient Yes -Correct Side, Site, Position Yes -Correct Procedure Yes -Procedure Performed Yes -Type of Procedure Debridement -Clinical Debridement Selective -Post Debridement Size (cm) - Length 8.0 -Post Debridement Size (cm) - Width 1.5 -Post Debridement Size (cm) - Depth 0.1 -Total Square Cm 12.00 -Wound/Ulcer Outcome Not Healed -Ulcer Cleansing Rinsed/ Irrigated with Saline -Foul Odor after Cleansing No -Bioengineered Tissue No -Bleeding Controlled with Pressure -Offloading No -Treatment Response Procedure Tolerated Well #1 LLL medial -Time 13:18 -Correct Patient Yes -Correct Side, Site, Position Yes -Correct Procedure Yes -Procedure Performed Yes -Type of Procedure Debridement -Clinical Debridement Selective -Post Debridement Size (cm) - Length 14.8 -Post Debridement Size (cm) - Width 2.5 -Post Debridement Size (cm) - Depth 0.1 -Total Square Cm 37.00 -Wound/Ulcer Outcome Not Healed -Ulcer Cleansing Rinsed/ Irrigated with Saline -Foul Odor after Cleansing No -Bioengineered Tissue No -Bleeding Controlled with Pressure -Offloading No -Treatment Response Procedure Tolerated Well Pain Scale: 0-10 Numeric Is Patient Pain Free? Yes Wound debrided: Left medial leg Laterality: Left Type of Debridement: Selective debridement Anesthesia Used: 5% Lidocaine Gel Depth: Down to and including healthy tissue, in the subcutaneous layer Percentage of wound debrided: 50 Instrument Used: 5mm curette Tissue Removed: Subcutaneous tissue and slough Severity: Limited To Skin Breakdown Amount of bleeding with debridement: Mild Bleeding Controlled with: Pressure, Compression and gauze Patient tolerated procedure well - Additional Wound Wound debrided: Left lateral leg Laterality: Left Type of Debridement: Selective debridement Anesthesia Used: 4% Lidocaine Solution, 5% Lidocaine Gel Depth: Down to and including healthy tissue, in the subcutaneous layer Percentage of wound debrided: 10 Instrument Used: 5mm curette Tissue Removed: Subcutaneous tissue and slough Severity: Limited To Skin Breakdown Amount of bleeding with debridement: Mild Bleeding Controlled with: Pressure, Compression and gauze Patient tolerated procedure: Patient tolerated procedure well Assessment/Plan Assessment: 1. Nonhealing fasciotomy ulcer left medial leg, with recent skin graft on 04/10/19. 2. Nonhealing fasciotomy ulcer left lateral leg, with recent skin graft on 04/10/19. 3. Hematoma with compartment syndrome left leg s/p fasciotomies. 4. 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 5. Lupus. 6. Immunocompromised state due to high risk medication, Methotrexate, for Lupus. Plan: The medial skin graft is showing compromise on about 20% of the graft. The lateral skin graft has a small amount of compromise, about 10 %. There was selective debridement performed today. She needs to continue to wear compression due to the non pitting edema in her legs bilaterally. She would benefit from HBOT 20-40 treatments to help salvage her commpromised skin graft. Her last chest xray was 01/2019. Operative culture shows Enterobacter cloacae thus far. She was treated perioperatively with Levaquin and Augmentin. Ok for the patient to ambulate. Try and minimize standing to keep swelling to a minimum. Elevate left leg when sitting. Followup one week. Code Visit [id number]
[2019-05-04 11:25] VITALS: BP 134/86; PULSE 106; RESP 20; TEMP 36.6; BMI 53.5
--- NOTE | 2019-05-04 13:33 | PCM.WC.PN ---
(1) Other complications of skin graft (allograft) (autograft) Status: Acute Current Visit: Yes Code(s): T86.828 - Other complications of skin graft (allograft) (autograft) (2) Skin graft disorder Status: Acute Current Visit: Yes Code(s): T86.829 - Unspecified complication of skin graft (allograft) (autograft) (3) Ulcer of left lower extremity Status: Chronic Current Visit: Yes Code(s): L97.929 - Non-pressure chronic ulcer of unspecified part of left lower leg with unspecified severity (4) Ulcer of left lower extremity with fat layer exposed Status: Chronic Current Visit: Yes Code(s): L97.922 - Non-pressure chronic ulcer of unspecified part of left lower leg with fat layer exposed (5) Lupus Status: Chronic Current Visit: No Code(s): M32.9 - Systemic lupus erythematosus, unspecified (6) 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 History of Wound: Surgery 04/10/19 - 1. Surgical preparation left medial leg with excisional debridement nonhealing fasciotomy ulcer and placement of AmnioFill placental connective tissue powder and STSG reconstruction from left flank (48 cm2). 2. Surgical preparation left lateral leg with excisional debridement nonhealing fasciotomy ulcer and placement of AmnioFill placental connective tissue powder and STSG reconstruction from left flank (20 cm2). Wound care - Silver alginate and MENDEZ wrap for compression. Operative culture - Enterobacter cloacae thus far. Preoperatively her culture showed Acinetobacter baumannii, Enterobacter cloacae, Streptococcus agalactiae, and Anaerobic cocci. She was treated perioperatively with Levaquin and Augmentin. Prealbumin from 04/11/19 was 18.8. Encourage nutritional supplementation with protein to help the healing process. She is experiencing compromise of her left medial skin graft with approx 20% compromise. She would benefit from HBOT to help with this compromise. She denies fever. Progress of Wound: Compromise of left medial and lateral skin graft. - Physical Exam Vital Signs Temp Pulse Resp BP 98 F 106 H 20 H 134/86 H 05/04/19 11:25 05/04/19 11:25 05/04/19 11:25 05/04/19 11:25 General: Alert, Oriented x3, Cooperative HEENT: Atraumatic Oral: Moist Mucosa Lungs: Normal air movement Cardiovascular: Regular rate Extremities: Capillary Refill Less than 3 Seconds, Edema, Peripheral Pulses Normal Skin: Ulcer/ Wound - Left lateral and medial skin graft compromise Wound Measurements and Assessment WC - Nurse 1 - General Ulcer Measurement Start: 04/27/19 13:04 Freq: Status: Active Protocol: Activity Type Activity Date Activity User E-Sign Co-Sign Detail Recorded Client Recorded Date Recorded By Document 05/04/19 11:25 DL [id number] 05/04/19 11:37 DL 05/04/19 11:25 Wound Center Nurse 1 [Ulcer Assessment] #2 LLL Lateral -Current Size (cm) - Length 9 -Current Size (cm) - Width 1 -Current Size (cm) - Depth 0.1 -Total Square Cm 9 -Photo Taken No -Exudate Amt Small -Exudate Type Serosanguineous -Wound Margin Distinct, Outline Attached -Granulation Amt Medium (34-66%) -Granulation Quality [place],Red -Necrosis Amt Medium (34-66%) -Necrotic Tissue Type Adherent Slough -Structure Exposed N/A -Texture (Kisha-wound Skin Appearance) Localized Edema ,Scarring -Moisture (Kisha-wound Skin Appearance No Abnormality ) -Color (Kisha-wound Skin Appearance) Rubor -Temperature (Kisha-wound Skin No Abnormality Appearance) (Pt Warm) -Ulcer Cleansing Wound Cleanser -Foul Odor after Cleansing No -Anesthetic Used 5% Lidocaine Gel #1 LLL medial -Current Size (cm) - Length 14.8 -Current Size (cm) - Width 2.2 -Current Size (cm) - Depth 0.4 -Total Square Cm 32.56 -Photo Taken No -Exudate Amt Small -Exudate Type Serosanguineous -Wound Margin Distinct, Outline Attached -Granulation Amt Small (1-33%) -Granulation Quality Red -Necrosis Amt Large (67-100%) -Necrotic Tissue Type Adherent Slough -Structure Exposed N/A -Texture (Kisha-wound Skin Appearance) Localized Edema ,Scarring -Moisture (Kisha-wound Skin Appearance No Abnormality ) -Color (Kisha-wound Skin Appearance) Rubor -Temperature (Kisha-wound Skin No Abnormality Appearance) (Pt Warm) -Tenderness on Palpation (Kisha-wound No Skin Appearance) -Ulcer Cleansing Wound Cleanser -Foul Odor after Cleansing No -Anesthetic Used 5% Lidocaine Gel [Edema Assessment] -Left Calf (cm) 46 -Left Ankle (cm) 24.5 WC - Nurse 2 - General Ulcer CM Notes Start: 04/27/19 13:04 Freq: Status: Active Protocol: Activity Type Activity Date Activity User E-Sign Co-Sign Detail Recorded Client Recorded Date Recorded By Document 05/04/19 11:51 MARITA [id number] 05/04/19 11:57 MARITA 05/04/19 11:51 Wound Center Nurse 2 [Procedure/Treatment] #2 LLL Lateral -Time 11:52 -Correct Patient Yes -Correct Side, Site, Position Yes -Correct Procedure Yes -Procedure Performed Yes -Type of Procedure Debridement -Clinical Debridement Selective -Post Debridement Size (cm) - Length 9.9 -Post Debridement Size (cm) - Width 1.0 -Post Debridement Size (cm) - Depth 0.2 -Total Square Cm 9.90 -Wound/Ulcer Outcome Not Healed -Ulcer Cleansing Rinsed/ Irrigated with Saline -Foul Odor after Cleansing No -Bioengineered Tissue No -Bleeding Controlled with Pressure -Offloading No -Treatment Response Procedure Tolerated Well #1 LLL medial -Time 11:52 -Correct Patient Yes -Correct Side, Site, Position Yes -Correct Procedure Yes -Procedure Performed Yes -Type of Procedure Debridement -Clinical Debridement Subcutaneous -Post Debridement Size (cm) - Length 16.0 -Post Debridement Size (cm) - Width 2.7 -Post Debridement Size (cm) - Depth 0.3 -Total Square Cm 43.20 -Wound/Ulcer Outcome Not Healed -Ulcer Cleansing Rinsed/ Irrigated with Saline -Foul Odor after Cleansing No -Bioengineered Tissue No -Bleeding Controlled with Pressure -Offloading No -Treatment Response Procedure Tolerated Well [See Physician Procedure note for Specifics] Pain Scale: 0-10 Numeric [Pain] -Is Patient Pain Free? Yes Musculoskeletal: No Tenderness to Palpation of Joints or Extremities Neurological: Neuro grossly intact Psych/Mental Status: Normal Affect, Appropriate Debridement Note Post-Debridement Measurements/Treatment WC - Nurse 2 - General Ulcer CM Notes Start: 04/27/19 13:04 Freq: Status: Active Protocol: Activity Type Activity Date Activity User E-Sign Co-Sign Detail Recorded Client Recorded Date Recorded By Document 04/27/19 13:17 MW [id number] 04/27/19 13:24 MW Document 05/04/19 11:51 [id number] 05/04/19 11:57 04/27/19 05/04/19 13:17 11:51 Wound Center Nurse 2 #2 LLL Lateral -Time 13:19 11:52 -Correct Patient Yes Yes -Correct Side, Site, Position Yes Yes -Correct Procedure Yes Yes -Procedure Performed Yes Yes -Type of Procedure Debridement Debridement -Clinical Debridement Selective Selective -Post Debridement Size (cm) - Length 8.0 9.9 -Post Debridement Size (cm) - Width 1.5 1.0 -Post Debridement Size (cm) - Depth 0.1 0.2 -Total Square Cm 12.00 9.90 -Wound/Ulcer Outcome Not Healed Not Healed -Ulcer Cleansing Rinsed/ Rinsed/ Irrigated with Irrigated with Saline Saline -Foul Odor after Cleansing No No -Bioengineered Tissue No No -Bleeding Controlled with Pressure Pressure -Offloading No No -Treatment Response Procedure Procedure Tolerated Well Tolerated Well #1 LLL medial -Time 13:18 11:52 -Correct Patient Yes Yes -Correct Side, Site, Position Yes Yes -Correct Procedure Yes Yes -Procedure Performed Yes Yes -Type of Procedure Debridement Debridement -Clinical Debridement Selective Subcutaneous -Post Debridement Size (cm) - Length 14.8 16.0 -Post Debridement Size (cm) - Width 2.5 2.7 -Post Debridement Size (cm) - Depth 0.1 0.3 -Total Square Cm 37.00 43.20 -Wound/Ulcer Outcome Not Healed Not Healed -Ulcer Cleansing Rinsed/ Rinsed/ Irrigated with Irrigated with Saline Saline -Foul Odor after Cleansing No No -Bioengineered Tissue No No -Bleeding Controlled with Pressure Pressure -Offloading No No -Treatment Response Procedure Procedure Tolerated Well Tolerated Well Pain Scale: 0-10 Numeric Is Patient Pain Free? Yes Yes Wound debrided: Left lateral leg Laterality: Left Type of Debridement: Selective debridement Anesthesia Used: 4% Lidocaine Solution, 5% Lidocaine Gel Depth: Down to and including healthy tissue, in the subcutaneous layer Percentage of wound debrided: 100 Instrument Used: 3mm curette Tissue Removed: Subcutaneous tissue and slough Severity: Fat Layer Exposed Amount of bleeding with debridement: Mild Bleeding Controlled with: Pressure, Compression and gauze Patient tolerated procedure well - Additional Wound Wound debrided: Left medial leg Laterality: Left Type of Debridement: Selective debridement Anesthesia Used: 4% Lidocaine Solution, 5% Lidocaine Gel Depth: Down to and including healthy tissue, in the subcutaneous layer Percentage of wound debrided: 100 Instrument Used: 5mm curette Tissue Removed: Subcutaneous tissue and slough Severity: Fat Layer Exposed Amount of bleeding with debridement: Mild Bleeding Controlled with: Pressure, Compression and gauze Assessment/Plan Active Problems Ulcer of left lower extremity (Chronic) Ulcer of left lower extremity with fat layer exposed (Chronic) Skin graft disorder (Acute) Other complications of skin graft (allograft) (autograft) (Acute) 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) on Methotrexate for Lupus Assessment: 1. Nonhealing fasciotomy ulcer left medial leg, with recent skin graft on 04/10/19. 2. Nonhealing fasciotomy ulcer left lateral leg, with recent skin graft on 04/10/19. 3. Hematoma with compartment syndrome left leg s/p fasciotomies. 4. longterm use of anticoagulation. 5. Lupus. 6. Immunocompromised state due to high risk medication, Methotrexate, for Lupus. Plan: The medial skin graft is showing compromise on about 20% of the graft. The lateral skin graft has a small amount of compromise, about 10 %. There was selective debridement performed today. She needs to continue to wear compression due to the non pitting edema in her legs bilaterally. She would benefit from HBOT 20-40 treatments to help salvage her commpromised skin graft. We are waiting to hear from her insurance company for approval. Her last chest xray was 01/2019. Operative culture shows Enterobacter cloacae thus far. She was treated perioperatively with Levaquin and Augmentin. Wound care is silver alginate dressing daily with MENDEZ wrap for compression. Ok for the patient to ambulate. Try and minimize standing to keep swelling to a minimum. Elevate left leg when sitting. Followup one week. Code Visit [id number]
[2019-05-11 11:47] VITALS: BP 134/80; PULSE 92; RESP 16; TEMP 35.9; BMI 53.5
--- NOTE | 2019-05-11 14:27 | PCM.WC.PN ---
(1) Other complications of skin graft (allograft) (autograft) Status: Acute Code(s): T86.828 - Other complications of skin graft (allograft) (autograft) (2) Skin graft disorder Status: Acute Code(s): T86.829 - Unspecified complication of skin graft (allograft) (autograft) (3) Ulcer of left lower extremity Status: Chronic Code(s): L97.929 - Non-pressure chronic ulcer of unspecified part of left lower leg with unspecified severity (4) Ulcer of left lower extremity with fat layer exposed Status: Chronic Code(s): L97.922 - Non-pressure chronic ulcer of unspecified part of left lower leg with fat layer exposed (5) Lupus Status: Chronic Code(s): M32.9 - Systemic lupus erythematosus, unspecified (6) Immunocompromised 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 History of Wound: Surgery 04/10/19 - 1. Surgical preparation left medial leg with excisional debridement nonhealing fasciotomy ulcer and placement of AmnioFill placental connective tissue powder and STSG reconstruction from left flank (48 cm2). 2. Surgical preparation left lateral leg with excisional debridement nonhealing fasciotomy ulcer and placement of AmnioFill placental connective tissue powder and STSG reconstruction from left flank (20 cm2). Wound care - Silver alginate and MENDEZ wrap for compression. Operative culture - Enterobacter cloacae thus far. Preoperatively her culture showed Acinetobacter baumannii, Enterobacter cloacae, Streptococcus agalactiae, and Anaerobic cocci. She was treated perioperatively with Levaquin and Augmentin. Prealbumin from 04/11/19 was 18.8. Encourage nutritional supplementation with protein to help the healing process. She is experiencing compromise of her left medial skin graft with approx 20% compromise. She would benefit from HBOT to help with this compromise which has been approved and she starts today. She denies fever. Progress of Wound: Compromise of left medial and lateral skin graft. - Physical Exam Vital Signs Temp Pulse Resp BP 96.6 F L 92 16 134/80 H 05/11/19 11:47 05/11/19 11:47 05/11/19 11:47 05/11/19 11:47 General: Alert, Oriented x3, Cooperative HEENT: Atraumatic Oral: Moist Mucosa Lungs: Normal air movement Cardiovascular: Regular rate Extremities: Capillary Refill Less than 3 Seconds, Edema Skin: Ulcer/ Wound - left medial and left lateral lower leg ulcers Wound Measurements and Assessment WC - Nurse 1 - General Ulcer Measurement Start: 04/27/19 13:04 Freq: Status: Active Protocol: Activity Type Activity Date Activity User E-Sign Co-Sign Detail Recorded Client Recorded Date Recorded By Document 05/11/19 11:47 MW [id number] 05/11/19 11:59 MW 05/11/19 11:47 Wound Center Nurse 1 [Ulcer Assessment] #2 LLL Lateral -Combined with other wound No -Current Size (cm) - Length 11.0 -Current Size (cm) - Width 1.0 -Current Size (cm) - Depth 0.1 -Total Square Cm 11.00 -Photo Taken No -Epithelialization Small 1-33% -Tunneling No -Undermining/Tunneling No -Circular Undermining No -Exudate Amt Medium -Exudate Type Serosanguineous -Wound Margin Flat & Intact -Granulation Amt Medium (34-66%) -Granulation Quality [place] -Slough/Fibrin Yes -Necrosis Amt Small (1-33%) -Necrotic Tissue Type Adherent Slough -Structure Exposed N/A -Texture (Kisha-wound Skin Appearance) Assessed, Localized Edema ,Scarring -Moisture (Kisha-wound Skin Appearance Assessed,Dry/ ) Scaly -Color (Kisha-wound Skin Appearance) No Abnormality, Assessed -Temperature (Kisha-wound Skin No Abnormality Appearance) (Pt Warm) -Tenderness on Palpation (Kisha-wound Yes Skin Appearance) -Ulcer Cleansing soap and water -Foul Odor after Cleansing No -Anesthetic Used 4% Lidocaine Solution,5% Lidocaine Gel #1 LLL medial -Combined with other wound No -Current Size (cm) - Length 15.5 -Current Size (cm) - Width 2.5 -Current Size (cm) - Depth 0.3 -Total Square Cm 38.75 -Photo Taken No -Epithelialization Small 1-33% -Tunneling No -Undermining/Tunneling No -Circular Undermining No -Exudate Amt Medium -Exudate Type Serosanguineous -Wound Margin Flat & Intact -Granulation Amt Small (1-33%) -Granulation Quality [place] -Slough/Fibrin Yes -Necrosis Amt Large (67-100%) -Necrotic Tissue Type Adherent Slough -Structure Exposed N/A -Texture (Kisha-wound Skin Appearance) Assessed, Localized Edema ,Scarring -Moisture (Kisha-wound Skin Appearance Assessed,Dry/ ) Scaly -Color (Kisha-wound Skin Appearance) No Abnormality, Assessed -Temperature (Kisha-wound Skin No Abnormality Appearance) (Pt Warm) -Ulcer Cleansing soap and water -Foul Odor after Cleansing No -Anesthetic Used 4% Lidocaine Solution,5% Lidocaine Gel [Edema Assessment] -Lower Limb Edema Present Yes -Right Calf (cm) 46.5 -Right Ankle (cm) 24.0 WC - Nurse 2 - General Ulcer CM Notes Start: 04/27/19 13:04 Freq: Status: Active Protocol: Activity Type Activity Date Activity User E-Sign Co-Sign Detail Recorded Client Recorded Date Recorded By Document 05/11/19 12:43 MARITA [id number] 05/11/19 12:46 MARITA 05/11/19 12:43 Wound Center Nurse 2 [Procedure/Treatment] #2 LLL Lateral -Time 12:43 -Correct Patient Yes -Correct Side, Site, Position Yes -Correct Procedure Yes -Procedure Performed Yes -Type of Procedure Debridement -Clinical Debridement Subcutaneous -Post Debridement Size (cm) - Length 10.7 -Post Debridement Size (cm) - Width 0.5 -Post Debridement Size (cm) - Depth 0.1 -Total Square Cm 5.35 -Wound/Ulcer Outcome Not Healed -Ulcer Cleansing Rinsed/ Irrigated with Saline -Foul Odor after Cleansing No -Bioengineered Tissue No -Bleeding Controlled with Pressure -Offloading No -Treatment Response Procedure Tolerated Well #1 LLL medial -Time 12:43 -Correct Patient Yes -Correct Side, Site, Position Yes -Correct Procedure Yes -Procedure Performed Yes -Type of Procedure Debridement -Clinical Debridement Subcutaneous -Post Debridement Size (cm) - Length 14.5 -Post Debridement Size (cm) - Width 2.0 -Post Debridement Size (cm) - Depth 0.2 -Total Square Cm 29.00 -Wound/Ulcer Outcome Not Healed -Ulcer Cleansing Rinsed/ Irrigated with Saline -Foul Odor after Cleansing No -Bioengineered Tissue No -Bleeding Controlled with Pressure -Offloading No -Treatment Response Procedure Tolerated Well [See Physician Procedure note for Specifics] Pain Scale: 0-10 Numeric [Pain] -Is Patient Pain Free? Yes Musculoskeletal: No Tenderness to Palpation of Joints or Extremities Neurological: Deep Tendon Reflexes 2+/4 and Symmetrical Psych/Mental Status: Normal Affect, Appropriate Debridement Note Post-Debridement Measurements/Treatment WC - Nurse 2 - General Ulcer CM Notes Start: 04/27/19 13:04 Freq: Status: Active Protocol: Activity Type Activity Date Activity User E-Sign Co-Sign Detail Recorded Client Recorded Date Recorded By Document 04/27/19 13:17 MW [id number] 04/27/19 13:24 MW Document 05/04/19 11:51 JF [id number] 05/04/19 11:57 JF Document 05/11/19 12:43 JF [id number] 05/11/19 12:46 04/27/19 05/04/19 05/11/19 13:17 11:51 12:43 Wound Center Nurse 2 #2 LLL Lateral -Time 13:19 11:52 12:43 -Correct Patient Yes Yes Yes -Correct Side, Site, Position Yes Yes Yes -Correct Procedure Yes Yes Yes -Procedure Performed Yes Yes Yes -Type of Procedure Debridement Debridement Debridement -Clinical Debridement Selective Selective Subcutaneous -Post Debridement Size (cm) - Length 8.0 9.9 10.7 -Post Debridement Size (cm) - Width 1.5 1.0 0.5 -Post Debridement Size (cm) - Depth 0.1 0.2 0.1 -Total Square Cm 12.00 9.90 5.35 -Wound/Ulcer Outcome Not Healed Not Healed Not Healed -Ulcer Cleansing Rinsed/ Rinsed/ Rinsed/ Irrigated with Irrigated with Irrigated with Saline Saline Saline -Foul Odor after Cleansing No No No -Bioengineered Tissue No No No -Bleeding Controlled with Pressure Pressure Pressure -Offloading No No No -Treatment Response Procedure Procedure Procedure Tolerated Well Tolerated Well Tolerated Well #1 LLL medial -Time 13:18 11:52 12:43 -Correct Patient Yes Yes Yes -Correct Side, Site, Position Yes Yes Yes -Correct Procedure Yes Yes Yes -Procedure Performed Yes Yes Yes -Type of Procedure Debridement Debridement Debridement -Clinical Debridement Selective Subcutaneous Subcutaneous -Post Debridement Size (cm) - Length 14.8 16.0 14.5 -Post Debridement Size (cm) - Width 2.5 2.7 2.0 -Post Debridement Size (cm) - Depth 0.1 0.3 0.2 -Total Square Cm 37.00 43.20 29.00 -Wound/Ulcer Outcome Not Healed Not Healed Not Healed -Ulcer Cleansing Rinsed/ Rinsed/ Rinsed/ Irrigated with Irrigated with Irrigated with Saline Saline Saline -Foul Odor after Cleansing No No No -Bioengineered Tissue No No No -Bleeding Controlled with Pressure Pressure Pressure -Offloading No No No -Treatment Response Procedure Procedure Procedure Tolerated Well Tolerated Well Tolerated Well Pain Scale: 0-10 Numeric Is Patient Pain Free? Yes Yes Yes Wound debrided: lateral Laterality: Left Type of Debridement: Selective debridement Anesthesia Used: 4% Lidocaine Solution, 5% Lidocaine Gel Depth: Down to and including healthy tissue, in the subcutaneous layer, to muscle Percentage of wound debrided: 100 Instrument Used: 3mm curette Tissue Removed: Subcutaneous tissue and slough Severity: Limited To Skin Breakdown Amount of bleeding with debridement: Mild Bleeding Controlled with: Pressure, Compression and gauze Patient tolerated procedure well - Additional Wound Wound debrided: medial lower leg Laterality: Left Type of Debridement: Selective debridement Anesthesia Used: 4% Lidocaine Solution, 5% Lidocaine Gel Depth: Down to and including healthy tissue, in the subcutaneous layer Percentage of wound debrided: 100 Instrument Used: 7mm curette Tissue Removed: Subcutaneous tissue and slough Severity: Fat Layer Exposed Amount of bleeding with debridement: Mild Bleeding Controlled with: Pressure, Compression and gauze Patient tolerated procedure: Patient tolerated procedure well Assessment/Plan Assessment: 1. Nonhealing fasciotomy ulcer left medial leg, with recent skin graft on 04/10/19. 2. Nonhealing fasciotomy ulcer left lateral leg, with recent skin graft on 04/10/19. 3. Hematoma with compartment syndrome left leg s/p fasciotomies. 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 5. Lupus. 6. Immunocompromised state due to high risk medication, Methotrexate, for Lupus. Plan: The medial skin graft is showing compromise on about 30% of the graft. The lateral skin graft has a small amount of compromise, about 20 %. There was selective debridement performed today. She needs to continue to wear compression due to the non pitting edema in her legs bilaterally. She will start HBOT treatments today to help salvage her commpromised skin graft. Left donor site incision is dry and intact. She is has a history of claustrophobia, will prescribe Valium 5 mg to take 30 minutes before she starts HBOT. Her last chest xray was 01/2019. Operative culture shows Enterobacter cloacae thus far. She was treated perioperatively with Levaquin and Augmentin. Wound care is silver alginate dressing daily with MENDEZ wrap for compression. Ok for the patient to ambulate. Try and minimize standing to keep swelling to a minimum. Elevate left leg when sitting. Followup one week.
--- NOTE | 2019-05-12 10:27 | PCM.HBO.PN ---
History of Present Illness Date of Service: 05/12/19 Presenting Chief Complaint: Nonhealing fasciotomy ulcers left lateral leg and left medial leg with recent skin grafting 04/10/19. RICCARDO VICKERS is a 48 year old currently undergoing hyperbaric oxygen therapy for Compromised skin graft, nonhealing fasciotomy to the left lateral leg and left medial leg with a skin grafting from April 10, 2019. Progress: Today session of hyperbaric oxygen therapy represents the patient's first such session and a plan of 40 sessions. Tolerance of hyperbaric oxygen therapy: Hyperbaric oxygen therapy was administered per our facility's protocol. Patient tolerated hyperbaric oxygen therapy well, without complaints or complications. Upon emergence from the hyperbaric chamber, the patient's vital signs remained stable. She was discharged in good condition. 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) Allergies/Adverse Reactions: Allergies adhesive tape Adverse Reaction (Verified 04/10/19 08:23) Rash Home Medications: Ambulatory Orders Medication Instructions Recorded Aripiprazole [Abilify] 2 mg PO DAILY 07/10/18 Metoprolol Succinate [Toprol Xl] 25 mg PO DAILY 07/10/18 Omeprazole 40 mg PO DAILY 07/10/18 Prednisone 4 mg PO DAILY 07/10/18 Ranitidine [Zantac] 150 mg PO QHS 07/10/18 Bupropion HCl [Bupropion Xl] 300 mg PO DAILY 08/25/18 Hydroxyzine Pamoate [Vistaril] 50 mg PO PRN PRN 08/25/18 Ropinirole HCl [Ropinirole ER] 2 mg PO QHS 08/25/18 Warfarin [Coumadin] 5 mg PO DAILY #0 12/20/18 Folic Acid 1 mg PO DAILY 01/23/19 Baclofen [Lioresal] 10 mg PO Q6H PRN PRN 03/27/19 Ferrous Sulfate 325 mg PO DAILY 03/27/19 Lactobacillus Acidophilus 1 ea PO BID 03/27/19 [Acidophilus] Enoxaparin Sodium [Lovenox] 80 mg SQ BID 04/10/19 Venlafaxine XR [Effexor Xr] 225 mg PO DAILY 04/10/19 traZODone [Desyrel] 150 mg PO QHS 04/10/19 Acetaminophen [Tylenol Tablet] 650 mg PO Q4H PRN PRN tab 04/11/19 Amox/Clavulanate Tablet [Augmentin 875 mg PO BID #28 tab 04/11/19 Tablet] Diazepam [Valium] 5 mg PO 4X/DAY PRN PRN #30 tab 04/11/19 Docusate Sodium [Colace] 100 mg PO BID cap 04/11/19 Famotidine [Pepcid] 20 mg PO HS tab 04/11/19 Fluconazole [Diflucan] 200 mg PO DAILY #14 tab 04/11/19 Pantoprazole Sodium [Protonix] 40 mg PO DAILY tab 04/11/19 Venlafaxine XR [Effexor Xr] 75 mg PO DAILY cap 04/11/19 Venlafaxine XR [Effexor Xr] 150 mg PO DAILY cap 04/11/19 levoFLOXacin tablet [Levaquin 500 mg PO DAILY #14 tab 04/11/19 tablet] proMETHazine tablet [Phenergan 25 mg PO Q4H PRN PRN tab 04/11/19 tablet] traZODone [Desyrel] 150 mg PO HS tab 04/11/19 Maternal Family History: No pertinent history Paternal Family History: No pertinent history Smoking Status: Never smoker Physical Exam Vital Signs Temp Pulse Resp BP 96.6 F L 92 16 134/80 H 05/11/19 11:47 05/11/19 11:47 05/11/19 11:47 05/11/19 11:47 General: Alert, Oriented x3, Cooperative, No apparent distress HEENT: Atraumatic, TM's Clear Lungs: Clear to auscultation, Normal air movement Cardiovascular: Regular rate, Regular Rhythm Psych/Mental Status: Normal Affect, Appropriate, Alert and oriented to time, place, person, mood and affect Assessment/Plan Active Problems Ulcer of left lower extremity (Chronic) Ulcer of left lower extremity with fat layer exposed (Chronic) Skin graft disorder (Acute) Other complications of skin graft (allograft) (autograft) (Acute) 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) on Methotrexate for Lupus The patient appears to be tolerating hyperbaric oxygen therapy well, which will be continued as per the patient's medical plan.
[2019-05-12 15:41] VITALS: BP 132/71; BP 97/65; PULSE 60; PULSE 91; RESP 16; RESP 18; TEMP 36.2; TEMP 36.4
--- NOTE | 2019-05-13 11:17 | PCM.HBO.PN ---
History of Present Illness Date of Service: 05/13/19 Presenting Chief Complaint: Nonhealing fasciotomy ulcers left lateral leg and left medial leg with recent skin grafting 04/10/19. RICCARDO VICKERS is a 48 year old currently undergoing hyperbaric oxygen therapy for Compromised skin graft, nonhealing fasciotomy to the left lateral leg and left medial leg with a skin grafting from April 10, 2019. Progress: Today session of hyperbaric oxygen therapy represents the patient's 2nd such session and a plan of 40 sessions. Tolerance of hyperbaric oxygen therapy: Hyperbaric oxygen therapy was administered per our facility's protocol. Patient tolerated hyperbaric oxygen therapy well, without complaints or complications. Upon emergence from the hyperbaric chamber, the patient's vital signs remained stable. She was discharged in good condition. 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) Allergies/Adverse Reactions: Allergies adhesive tape Adverse Reaction (Verified 04/10/19 08:23) Rash Home Medications: Ambulatory Orders Medication Instructions Recorded Aripiprazole [Abilify] 2 mg PO DAILY 07/10/18 Metoprolol Succinate [Toprol Xl] 25 mg PO DAILY 07/10/18 Omeprazole 40 mg PO DAILY 07/10/18 Prednisone 4 mg PO DAILY 07/10/18 Ranitidine [Zantac] 150 mg PO QHS 07/10/18 Bupropion HCl [Bupropion Xl] 300 mg PO DAILY 08/25/18 Hydroxyzine Pamoate [Vistaril] 50 mg PO PRN PRN 08/25/18 Ropinirole HCl [Ropinirole ER] 2 mg PO QHS 08/25/18 Warfarin [Coumadin] 5 mg PO DAILY #0 12/20/18 Folic Acid 1 mg PO DAILY 01/23/19 Baclofen [Lioresal] 10 mg PO Q6H PRN PRN 03/27/19 Ferrous Sulfate 325 mg PO DAILY 03/27/19 Lactobacillus Acidophilus 1 ea PO BID 03/27/19 [Acidophilus] Enoxaparin Sodium [Lovenox] 80 mg SQ BID 04/10/19 Venlafaxine XR [Effexor Xr] 225 mg PO DAILY 04/10/19 traZODone [Desyrel] 150 mg PO QHS 04/10/19 Acetaminophen [Tylenol Tablet] 650 mg PO Q4H PRN PRN tab 04/11/19 Amox/Clavulanate Tablet [Augmentin 875 mg PO BID #28 tab 04/11/19 Tablet] Diazepam [Valium] 5 mg PO 4X/DAY PRN PRN #30 tab 04/11/19 Docusate Sodium [Colace] 100 mg PO BID cap 04/11/19 Famotidine [Pepcid] 20 mg PO HS tab 04/11/19 Fluconazole [Diflucan] 200 mg PO DAILY #14 tab 04/11/19 Pantoprazole Sodium [Protonix] 40 mg PO DAILY tab 04/11/19 Venlafaxine XR [Effexor Xr] 75 mg PO DAILY cap 04/11/19 Venlafaxine XR [Effexor Xr] 150 mg PO DAILY cap 04/11/19 levoFLOXacin tablet [Levaquin 500 mg PO DAILY #14 tab 04/11/19 tablet] proMETHazine tablet [Phenergan 25 mg PO Q4H PRN PRN tab 04/11/19 tablet] traZODone [Desyrel] 150 mg PO HS tab 04/11/19 Maternal Family History: No pertinent history Paternal Family History: No pertinent history Smoking Status: Never smoker Physical Exam Vital Signs Temp Pulse Resp BP 97.6 F L 91 18 132/71 H 05/12/19 15:41 05/12/19 15:41 05/12/19 15:41 05/12/19 15:41 General: Alert, Oriented x3, Cooperative, No apparent distress HEENT: Atraumatic, TM's Clear Lungs: Clear to auscultation, Normal air movement Cardiovascular: Regular rate, Regular Rhythm Psych/Mental Status: Normal Affect, Appropriate, Alert and oriented to time, place, person, mood and affect Assessment/Plan Active Problems Ulcer of left lower extremity (Chronic) Ulcer of left lower extremity with fat layer exposed (Chronic) Skin graft disorder (Acute) Other complications of skin graft (allograft) (autograft) (Acute) 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) on Methotrexate for Lupus The patient appears to be tolerating hyperbaric oxygen therapy well, which will be continued as per the patient's medical plan.
[2019-05-13 12:21] VITALS: BP 127/66; BP 146/77; PULSE 86; PULSE 87; RESP 16; RESP 18; TEMP 36.6; TEMP 37
[2019-05-14 13:49] VITALS: BP 134/75; BP 140/72; PULSE 101; PULSE 106; RESP 16; TEMP 36.3; TEMP 37
--- NOTE | 2019-05-14 17:21 | HBO.PN.PCM_ITS ---
History of Present Illness Date of Service: 05/14/19 Presenting Chief Complaint: Nonhealing fasciotomy ulcers left lateral leg and left medial leg with recent skin grafting 04/10/19. RICCARDO VICKERS is a 48 year old currently undergoing hyperbaric oxygen therapy for Compromised skin graft, nonhealing fasciotomy to the left lateral leg and left medial leg with a skin grafting from April 10, 2019. Progress: Today session of hyperbaric oxygen therapy represents the patient's 3rd such session and a plan of 40 sessions. Tolerance of hyperbaric oxygen therapy: Hyperbaric oxygen therapy was administered per our facility's protocol. Patient tolerated hyperbaric oxygen therapy well, without complaints or complications. Upon emergence from the hyperbaric chamber, the patient's vital signs remained stable. She was discharged in good condition. 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) Allergies/Adverse Reactions: Allergies adhesive tape Adverse Reaction (Verified 04/10/19 08:23) Rash Home Medications: Ambulatory Orders Medication Instructions Recorded Aripiprazole [Abilify] 2 mg PO DAILY 07/10/18 Metoprolol Succinate [Toprol Xl] 25 mg PO DAILY 07/10/18 Omeprazole 40 mg PO DAILY 07/10/18 Prednisone 4 mg PO DAILY 07/10/18 Ranitidine [Zantac] 150 mg PO QHS 07/10/18 Bupropion HCl [Bupropion Xl] 300 mg PO DAILY 08/25/18 Hydroxyzine Pamoate [Vistaril] 50 mg PO PRN PRN 08/25/18 Ropinirole HCl [Ropinirole ER] 2 mg PO QHS 08/25/18 Warfarin [Coumadin] 5 mg PO DAILY #0 12/20/18 Folic Acid 1 mg PO DAILY 01/23/19 Baclofen [Lioresal] 10 mg PO Q6H PRN PRN 03/27/19 Ferrous Sulfate 325 mg PO DAILY 03/27/19 Lactobacillus Acidophilus 1 ea PO BID 03/27/19 [Acidophilus] Enoxaparin Sodium [Lovenox] 80 mg SQ BID 04/10/19 Venlafaxine XR [Effexor Xr] 225 mg PO DAILY 04/10/19 traZODone [Desyrel] 150 mg PO QHS 04/10/19 Diazepam [Valium] 5 mg PO 4X/DAY PRN PRN #30 tab 04/11/19 Docusate Sodium [Colace] 100 mg PO BID cap 04/11/19 Famotidine [Pepcid] 20 mg PO HS tab 04/11/19 Fluconazole [Diflucan] 200 mg PO DAILY #14 tab 04/11/19 Pantoprazole Sodium [Protonix] 40 mg PO DAILY tab 04/11/19 Venlafaxine XR [Effexor Xr] 75 mg PO DAILY cap 04/11/19 Venlafaxine XR [Effexor Xr] 150 mg PO DAILY cap 04/11/19 proMETHazine tablet [Phenergan 25 mg PO Q4H PRN PRN tab 04/11/19 tablet] traZODone [Desyrel] 150 mg PO HS tab 04/11/19 amoxicillin 875 mg-potassium 1 tab PO Q12H #28 tab 05/14/19 clavulanate 125 mg tablet levofloxacin 500 mg tablet 500 mg PO DAILY #14 tab 05/14/19 Maternal Family History: No pertinent history Paternal Family History: No pertinent history Smoking Status: Never smoker Physical Exam Vital Signs Temp Pulse Resp BP 98.6 F 106 H 16 134/75 H 05/14/19 13:49 05/14/19 13:49 05/14/19 13:49 05/14/19 13:49 General: Alert, Oriented x3, Cooperative, No apparent distress HEENT: Atraumatic, Normocephalic, TM's Clear Lungs: Clear to auscultation, Normal air movement Psych/Mental Status: Normal Affect Assessment/Plan Active Problems Ulcer of left lower extremity (Chronic) Ulcer of left lower extremity with fat layer exposed (Chronic) Skin graft disorder (Acute) Other complications of skin graft (allograft) (autograft) (Acute) 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) on Methotrexate for Lupus The patient appears to be tolerating hyperbaric oxygen therapy well, which will be continued as per the patient's medical plan.
[2019-05-18 08:23] VITALS: BP 158/106; PULSE 99; RESP 18; TEMP 37.1; BMI 53.5
[2019-05-18 11:54] VITALS: BMI 53.9
--- NOTE | 2019-05-18 18:28 | PCM.WC.PN ---
Type of Wound Date of Service: 05/18/19 Chief Complaint: Nonhealing fasciotomy ulcers left lateral leg and left medial leg with skin grafting 04/10/19 and recent graft compromise and nonhealing ulcer left flank. History of Wound: Surgery 04/10/19 - 1. Surgical preparation left medial leg with excisional debridement nonhealing fasciotomy ulcer and placement of AmnioFill placental connective tissue powder and STSG reconstruction from left flank (48 cm2). 2. Surgical preparation left lateral leg with excisional debridement nonhealing fasciotomy ulcer and placement of AmnioFill placental connective tissue powder and STSG reconstruction from left flank (20 cm2). Wound care - JOE NPWT. Operative culture - Enterobacter cloacae and Anaerobic cocci. Preoperatively her culture showed Acinetobacter baumannii, Enterobacter cloacae, Streptococcus agalactiae, and Anaerobic cocci. She was treated perioperatively with Levaquin and Augmentin. After surgery she was placed on Levaquin and Augmentin and is finishing them. Prealbumin from 04/11/19 was 18.8. Encourage nutritional supplementation with protein to help the healing process. She denies fever. Today she comes in with persistent chest pain that started last night. Her BP is elevated today. Progress of Wound: Slight improvement in skin graft compromise left lateral leg and left medial leg and new onset ulcer left flank. - Physical Exam Vital Signs Temp Pulse Resp BP 98.7 F 99 18 158/106 H 05/18/19 08:23 05/18/19 08:23 05/18/19 08:23 05/18/19 08:23 Wound Measurements and Assessment WC - Nurse 1 - General Ulcer Measurement Start: 04/27/19 13:04 Freq: Status: Active Protocol: Activity Type Activity Date Activity User E-Sign Co-Sign Detail Recorded Client Recorded Date Recorded By Document 05/18/19 08:23 MW [id number] 05/18/19 08:30 MW 05/18/19 08:23 Wound Center Nurse 1 [Ulcer Assessment] #2 LLL Lateral -Combined with other wound No -Current Size (cm) - Length 10.0 -Current Size (cm) - Width 0.3 -Current Size (cm) - Depth 0.1 -Total Square Cm 3.00 -Photo Taken No -Epithelialization Small 1-33% -Tunneling No -Undermining/Tunneling No -Circular Undermining No -Exudate Amt Small -Exudate Type Serosanguineous -Wound Margin Flat & Intact -Granulation Amt Medium (34-66%) -Granulation Quality Anon Raices -Slough/Fibrin Yes -Necrosis Amt Small (1-33%) -Necrotic Tissue Type Adherent Slough -Structure Exposed N/A -Texture (Kisha-wound Skin Appearance) Assessed, Scarring -Moisture (Kisha-wound Skin Appearance Assessed,Dry/ ) Scaly -Color (Kisha-wound Skin Appearance) No Abnormality, Assessed -Temperature (Kisha-wound Skin No Abnormality Appearance) (Pt Warm) -Tenderness on Palpation (Kisha-wound No Skin Appearance) -Ulcer Cleansing Rinsed/ Irrigated with Saline -Foul Odor after Cleansing No -Anesthetic Used 4% Lidocaine Solution #1 LLL medial -Combined with other wound No -Current Size (cm) - Length 11.0 -Current Size (cm) - Width 2.5 -Current Size (cm) - Depth 0.2 -Total Square Cm 27.50 -Photo Taken No -Epithelialization Small 1-33% -Tunneling No -Undermining/Tunneling No -Circular Undermining No -Exudate Amt Medium -Exudate Type Serosanguineous -Wound Margin Flat & Intact -Granulation Amt Medium (34-66%) -Granulation Quality Pale -Slough/Fibrin Yes -Necrosis Amt Medium (34-66%) -Necrotic Tissue Type Adherent Slough -Structure Exposed N/A -Texture (Kisha-wound Skin Appearance) Assessed, Scarring -Moisture (Kisha-wound Skin Appearance Assessed,Dry/ ) Scaly -Color (Kisha-wound Skin Appearance) No Abnormality, Assessed -Temperature (Kisha-wound Skin No Abnormality Appearance) (Pt Warm) -Tenderness on Palpation (Kisha-wound No Skin Appearance) -Ulcer Cleansing Not Cleansed -Foul Odor after Cleansing No -Anesthetic Used 4% Lidocaine Solution [Edema Assessment] -Lower Limb Edema Present Yes -Right Calf (cm) 47.5 -Right Ankle (cm) 24.0 WC - Nurse 2 - General Ulcer CM Notes Start: 04/27/19 13:04 Freq: Status: Active Protocol: Activity Type Activity Date Activity User E-Sign Co-Sign Detail Recorded Client Recorded Date Recorded By Document 05/18/19 08:57 MARITA [id number] 05/18/19 08:58 MARITA 05/18/19 08:57 Wound Center Nurse 2 [Procedure/Treatment] #2 LLL Lateral -Time 08:57 -Correct Patient Yes -Correct Side, Site, Position Yes -Correct Procedure Yes -Procedure Performed Yes -Type of Procedure Debridement -Clinical Debridement Subcutaneous -Post Debridement Size (cm) - Length 10.0 -Post Debridement Size (cm) - Width 0.4 -Post Debridement Size (cm) - Depth 0.1 -Total Square Cm 4.00 -Wound/Ulcer Outcome Not Healed -Ulcer Cleansing Rinsed/ Irrigated with Saline -Foul Odor after Cleansing No -Bioengineered Tissue No -Bleeding Controlled with Pressure -Offloading No -Treatment Response Procedure Tolerated Well #1 LLL medial -Time 08:57 -Correct Patient Yes -Correct Side, Site, Position Yes -Correct Procedure Yes -Procedure Performed Yes -Type of Procedure Debridement -Clinical Debridement Subcutaneous -Post Debridement Size (cm) - Length 11 -Post Debridement Size (cm) - Width 2.6 -Post Debridement Size (cm) - Depth 0.4 -Total Square Cm 28.6 -Wound/Ulcer Outcome Not Healed -Ulcer Cleansing Rinsed/ Irrigated with Saline -Foul Odor after Cleansing No -Bioengineered Tissue No -Bleeding Controlled with Pressure -Offloading No -Treatment Response Procedure Tolerated Well [See Physician Procedure note for Specifics] Pain Scale: 0-10 Numeric [Pain] -Is Patient Pain Free? Yes Debridement Note Post-Debridement Measurements/Treatment WC - Nurse 2 - General Ulcer CM Notes Start: 04/27/19 13:04 Freq: Status: Active Protocol: Activity Type Activity Date Activity User E-Sign Co-Sign Detail Recorded Client Recorded Date Recorded By Document 04/27/19 13:17 MW [id number] 04/27/19 13:24 MW Document 05/04/19 11:51 JF [id number] 05/04/19 11:57 JF Document 05/11/19 12:43 JF [id number] 05/11/19 12:46 JF Document 05/18/19 08:57 JF [id number] 05/18/19 08:58 JF 04/27/19 05/04/19 05/11/19 13:17 11:51 12:43 Wound Center Nurse 2 #2 LLL Lateral -Time 13:19 11:52 12:43 -Correct Patient Yes Yes Yes -Correct Side, Site, Position Yes Yes Yes -Correct Procedure Yes Yes Yes -Procedure Performed Yes Yes Yes -Type of Procedure Debridement Debridement Debridement -Clinical Debridement Selective Selective Subcutaneous -Post Debridement Size (cm) - Length 8.0 9.9 10.7 -Post Debridement Size (cm) - Width 1.5 1.0 0.5 -Post Debridement Size (cm) - Depth 0.1 0.2 0.1 -Total Square Cm 12.00 9.90 5.35 -Wound/Ulcer Outcome Not Healed Not Healed Not Healed -Ulcer Cleansing Rinsed/ Rinsed/ Rinsed/ Irrigated with Irrigated with Irrigated with Saline Saline Saline -Foul Odor after Cleansing No No No -Bioengineered Tissue No No No -Bleeding Controlled with Pressure Pressure Pressure -Offloading No No No -Treatment Response Procedure Procedure Procedure Tolerated Well Tolerated Well Tolerated Well #1 LLL medial -Time 13:18 11:52 12:43 -Correct Patient Yes Yes Yes -Correct Side, Site, Position Yes Yes Yes -Correct Procedure Yes Yes Yes -Procedure Performed Yes Yes Yes -Type of Procedure Debridement Debridement Debridement -Clinical Debridement Selective Subcutaneous Subcutaneous -Post Debridement Size (cm) - Length 14.8 16.0 14.5 -Post Debridement Size (cm) - Width 2.5 2.7 2.0 -Post Debridement Size (cm) - Depth 0.1 0.3 0.2 -Total Square Cm 37.00 43.20 29.00 -Wound/Ulcer Outcome Not Healed Not Healed Not Healed -Ulcer Cleansing Rinsed/ Rinsed/ Rinsed/ Irrigated with Irrigated with Irrigated with Saline Saline Saline -Foul Odor after Cleansing No No No -Bioengineered Tissue No No No -Bleeding Controlled with Pressure Pressure Pressure -Offloading No No No -Treatment Response Procedure Procedure Procedure Tolerated Well Tolerated Well Tolerated Well Pain Scale: 0-10 Numeric Is Patient Pain Free? Yes Yes Yes 05/18/19 08:57 Wound Center Nurse 2 #2 LLL Lateral -Time 08:57 -Correct Patient Yes -Correct Side, Site, Position Yes -Correct Procedure Yes -Procedure Performed Yes -Type of Procedure Debridement -Clinical Debridement Subcutaneous -Post Debridement Size (cm) - Length 10.0 -Post Debridement Size (cm) - Width 0.4 -Post Debridement Size (cm) - Depth 0.1 -Total Square Cm 4.00 -Wound/Ulcer Outcome Not Healed -Ulcer Cleansing Rinsed/ Irrigated with Saline -Foul Odor after Cleansing No -Bioengineered Tissue No -Bleeding Controlled with Pressure -Offloading No -Treatment Response Procedure Tolerated Well #1 LLL medial -Time 08:57 -Correct Patient Yes -Correct Side, Site, Position Yes -Correct Procedure Yes -Procedure Performed Yes -Type of Procedure Debridement -Clinical Debridement Subcutaneous -Post Debridement Size (cm) - Length 11 -Post Debridement Size (cm) - Width 2.6 -Post Debridement Size (cm) - Depth 0.4 -Total Square Cm 28.6 -Wound/Ulcer Outcome Not Healed -Ulcer Cleansing Rinsed/ Irrigated with Saline -Foul Odor after Cleansing No -Bioengineered Tissue No -Bleeding Controlled with Pressure -Offloading No -Treatment Response Procedure Tolerated Well Pain Scale: 0-10 Numeric Is Patient Pain Free? Yes Wound debrided: #1 Left medial leg. Laterality: Left Wound Grade/Stage: 2. Type of Debridement: Excisional debridement Anesthesia Used: 4% Lidocaine Solution Depth: Down to and including healthy tissue, in the subcutaneous layer - some loose skin graft removed. Percentage of wound debrided: 100 Instrument Used: 3mm curette Tissue Removed: subcutaneous tissue and some loose skin graft removed. Severity: Fat Layer Exposed - scattered amongst healing skin graft (about 30% compromised). Amount of bleeding with debridement: Mild Bleeding Controlled with: Pressure Patient tolerated procedure well - Additional Wound Wound debrided: #2 Left lateral leg. Laterality: Left Wound Grade/Stage: 2. Type of Debridement: Excisional debridement Anesthesia Used: 4% Lidocaine Solution Depth: Down to and including healthy tissue, in the subcutaneous layer - some loose skin graft removed. Percentage of wound debrided: 100 Instrument Used: 3mm curette Tissue Removed: subcutaneous tissue and some loose skin graft removed. Severity: Fat Layer Exposed - scattered amongst healing skin graft (about 20% compromised) Amount of bleeding with debridement: Mild Bleeding Controlled with: Pressure Patient tolerated procedure: Patient tolerated procedure well - Additional Wound Wound debrided: #3 Left flank area. Laterality: Left Wound Grade/Stage: 2. Type of Debridement: Excisional debridement Anesthesia Used: 4% Lidocaine Solution Depth: Down to and including healthy tissue, in the subcutaneous layer Percentage of wound debrided: 100 Instrument Used: 3mm curette Tissue Removed: subcutaneous tissue. Severity: Fat Layer Exposed Amount of bleeding with debridement: Mild Bleeding Controlled with: Pressure Patient tolerated procedure: Patient tolerated procedure well, - - a wound culture was obtained today. Assessment/Plan Assessment: 1. Nonhealing fasciotomy ulcer left medial leg, with skin graft 04/10/19 and skin graft compromise, about 30%. 2. Nonhealing fasciotomy ulcer left lateral leg, with skin graft 04/10/19 and skin graft compromise, about 20 %. 3. Hematoma with compartment syndrome left leg s/p fasciotomies. 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 5. Lupus. 6. Immunocompromised state due to high risk medication, Methotrexate, for Lupus. 7. Nonhealing ulcer left flank donor area. Plan: There is some compromise to the healing skin grafts, and HBO treatments have been started for her compromised skin grafts. She is tolerating them thus far. She needs to continue to wear compression due to the non pitting edema in her legs bilaterally. Left donor area shows a couple of small areas of breakdown into the subcutaneous tissue. Operative culture shows Enterobacter cloacae and Anaerobic cocci. Preoperatively her culture showed Acinetobacter baumannii, Enterobacter cloacae, Streptococcus agalactiae, and Anaerobic cocci. She was treated perioperatively with Levaquin and Augmentin. After surgery she was placed on Levaquin and Augmentin and is finishing them. A wound culture was also obtained today from her left flank ulcer. Begin Silver dressing changes to the left flank donor area. Wound care is silver dressing daily to the healing compromised skin grafts This is followed with MENDEZ wrap for compression. Prealbumin from 04/11/19 was 18.8. Encourage nutritional supplementation with protein to help the healing process. Ok for the patient to ambulate. Try and minimize standing to keep swelling to a minimum. Elevate left leg when sitting. Followup one week. With her complaints of chest pain that started last night and with her elevated BP, it was recommended to the patient to go to the ED for evaluation. She voiced understanding.
[2019-05-21 10:23] VITALS: BP 121/78; BP 131/81; PULSE 105; PULSE 117; RESP 16; RESP 18; TEMP 36.7; TEMP 37.2
--- NOTE | 2019-05-21 12:47 | HBO.PN.PCM_ITS ---
History of Present Illness Date of Service: 05/21/19 Presenting Chief Complaint: Nonhealing fasciotomy ulcers left lateral leg and left medial leg with skin grafting 04/10/19 and recent graft compromise and nonhealing ulcer left flank. RICCARDO VICKERS is a 48 year old currently undergoing hyperbaric oxygen therapy for Compromised skin graft, nonhealing fasciotomy to the left lateral leg and left medial leg with a skin grafting from April 10, 2019. Progress: Today session of hyperbaric oxygen therapy represents the patient's 4th of 40 sessions. Tolerance of hyperbaric oxygen therapy: Hyperbaric oxygen therapy was administered per our facility's protocol. Patient tolerated hyperbaric oxygen therapy well, without complaints or complications. Upon emergence from the hyperbaric chamber, the patient's vital signs remained stable. She was discharged in good condition. 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) Allergies/Adverse Reactions: Allergies adhesive tape Adverse Reaction (Verified 05/18/19 09:38) Rash Home Medications: Ambulatory Orders Medication Instructions Recorded Aripiprazole [Abilify] 2 mg PO DAILY 07/10/18 Metoprolol Succinate [Toprol Xl] 25 mg PO DAILY 07/10/18 Omeprazole 40 mg PO DAILY 07/10/18 Prednisone 4 mg PO UD 07/10/18 Ranitidine [Zantac] 150 mg PO QHS 07/10/18 Bupropion HCl [Bupropion Xl] 300 mg PO DAILY 08/25/18 Ropinirole HCl [Ropinirole ER] 2 mg PO QHS 08/25/18 Warfarin [Coumadin] 5 mg PO DAILY #0 12/20/18 Folic Acid 1 mg PO DAILY 01/23/19 Baclofen [Lioresal] 10 mg PO Q6H PRN PRN 03/27/19 Ferrous Sulfate 325 mg PO DAILY 03/27/19 Lactobacillus Acidophilus 1 ea PO BID 03/27/19 [Acidophilus] Venlafaxine XR [Effexor Xr] 225 mg PO DAILY 04/10/19 traZODone [Desyrel] 150 mg PO QHS 04/10/19 Diazepam [Valium] 5 mg PO 4X/DAY PRN PRN #30 tab 04/11/19 Famotidine [Pepcid] 20 mg PO HS tab 04/11/19 amoxicillin 875 mg-potassium 1 tab PO Q12H #28 tab 05/14/19 clavulanate 125 mg tablet levofloxacin 500 mg tablet 500 mg PO DAILY #14 tab 05/14/19 HYDROmorphone tablet [Dilaudid] 2 mg PO Q6H PRN PRN 05/18/19 Prednisone 8 mg PO UD 05/18/19 Maternal Family History: Heart Disease Paternal Family History: - - She does not know her father Smoking Status: Never smoker Physical Exam Vital Signs Temp Pulse Resp BP 98.9 F 117 H 18 131/81 H 05/21/19 10:23 05/21/19 10:23 05/21/19 10:23 05/21/19 10:23 General: Alert, Oriented x3, Cooperative, No apparent distress HEENT: Atraumatic, Normocephalic Lungs: Normal air movement Psych/Mental Status: Normal Affect Assessment/Plan The patient appears to be tolerating hyperbaric oxygen therapy well, which will be continued as per the patient's medical plan.
== END 2019-05-21 23:59 ==
LOC: WC 10:00
PROVIDERS: Family Provider Family Medicine; PCP Family Medicine; Referring Provider Surgery; Visit Provider Surgery
DX: T86.828 Other complications of skin graft (allograft) (autograft) (principal); Y83.8 Other surgical procedures as the cause of abnormal reaction of the patient, or of later complication, without mention of misadventure at the time of the procedure; M32.9 Systemic lupus erythematosus, unspecified; L97.821 Non-pressure chronic ulcer of other part of left lower leg limited to breakdown of skin
CPT/HCPCS: 11042; 11045; 87070; 87075; 87205; 97597; 97598; 99183; G0277

== ENCOUNTER 2019-06-16 10:00 | Outpatient (RCR) | payer MEDICAID, SELFPAY ==
[2019-05-18 11:54] VITALS: BMI 53.9
[2019-05-22 00:48] VITALS: BP 121/78; PULSE 105; RESP 16; TEMP 36.7
--- NOTE | 2019-05-22 19:55 | HBO.PN.PCM_ITS ---
History of Present Illness Date of Service: 05/22/19 Presenting Chief Complaint: Nonhealing fasciotomy ulcers left lateral leg and left medial leg. NERIS VICKERS is a 48 year old currently undergoing hyperbaric oxygen therapy for nonhealing fasciotomy ulcers of left lateral and medial leg with failed/compromised skin graft surgery April 10, 2019. Progress: Neris presents today for hyperbaric oxygen therapy as the 5th treatment session of 40 planned sessions. Tolerance of hyperbaric oxygen therapy: Hyperbaric oxygen therapy was administered today as per our facility's protocol. HBO therapy was administered for 90 minutes at 2 ATMs. The patient tolerated HBO therapy well with complaints of mild pain in her ears bilaterally but without any signs of barotrauma. Upon emergence from the hyperbaric oxygen chamber, the patient's vital signs remained stable. No barotrauma seen bilateral TMs. Encouraged her to try loratadine or flonase prior to her next treatment session and if no improvement then would consider referral to ENT for tympanostomy tube placement. 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) Allergies/Adverse Reactions: Allergies adhesive tape Adverse Reaction (Verified 05/18/19 09:38) Rash Home Medications: Ambulatory Orders Medication Instructions Recorded Aripiprazole [Abilify] 2 mg PO DAILY 07/10/18 Metoprolol Succinate [Toprol Xl] 25 mg PO DAILY 07/10/18 Omeprazole 40 mg PO DAILY 07/10/18 Prednisone 4 mg PO UD 07/10/18 Ranitidine [Zantac] 150 mg PO QHS 07/10/18 Bupropion HCl [Bupropion Xl] 300 mg PO DAILY 08/25/18 Ropinirole HCl [Ropinirole ER] 2 mg PO QHS 08/25/18 Warfarin [Coumadin] 5 mg PO DAILY #0 12/20/18 Folic Acid 1 mg PO DAILY 01/23/19 Baclofen [Lioresal] 10 mg PO Q6H PRN PRN 03/27/19 Ferrous Sulfate 325 mg PO DAILY 03/27/19 Lactobacillus Acidophilus 1 ea PO BID 03/27/19 [Acidophilus] Venlafaxine XR [Effexor Xr] 225 mg PO DAILY 04/10/19 traZODone [Desyrel] 150 mg PO QHS 04/10/19 Diazepam [Valium] 5 mg PO 4X/DAY PRN PRN #30 tab 04/11/19 Famotidine [Pepcid] 20 mg PO HS tab 04/11/19 amoxicillin 875 mg-potassium 1 tab PO Q12H #28 tab 05/14/19 clavulanate 125 mg tablet levofloxacin 500 mg tablet 500 mg PO DAILY #14 tab 05/14/19 HYDROmorphone tablet [Dilaudid] 2 mg PO Q6H PRN PRN 05/18/19 Prednisone 8 mg PO UD 05/18/19 Maternal Family History: Heart Disease Paternal Family History: - - She does not know her father Smoking Status: Never smoker Physical Exam Vital Signs Temp Pulse Resp BP 98.0 F 105 H 16 121/78 H 05/22/19 00:48 05/22/19 00:48 05/22/19 00:48 05/22/19 00:48 General: Alert, Oriented x3, Cooperative, No apparent distress Psych/Mental Status: Normal Affect, Appropriate Assessment/Plan Active Problems Ulcer of left lower extremity (Chronic) Ulcer of left lower extremity with fat layer exposed (Chronic) Skin graft disorder (Acute) Other complications of skin graft (allograft) (autograft) (Acute) Open wound of left lower extremity (Acute) fasciotomy wounds left medial leg and left lateral leg The patient tolerated hyperbaric oxygen therapy well and will continue treatments as stated in the patient's medical treatment plan for 40 sessions.
[2019-05-25 09:15] VITALS: BP 149/79; PULSE 102; RESP 16; TEMP 37; BMI 53.9
--- NOTE | 2019-05-25 13:22 | PN.PCM_ITS ---
(1) Ulcer of left lower extremity Status: Chronic Code(s): L97.929 - Non-pressure chronic ulcer of unspecified part of left lower leg with unspecified severity (2) Ulcer of left lower extremity with fat layer exposed Status: Chronic Code(s): L97.922 - Non-pressure chronic ulcer of unspecified part of left lower leg with fat layer exposed (3) Skin graft disorder Status: Chronic Code(s): T86.829 - Unspecified complication of skin graft (allograft) (autograft) (4) Other complications of skin graft (allograft) (autograft) Status: Chronic Code(s): T86.828 - Other complications of skin graft (allograft) (autograft) (5) Lupus Status: Chronic Code(s): M32.9 - Systemic lupus erythematosus, unspecified (6) Immunocompromised state due to drug therapy Status: Chronic Code(s): Z79.899 - Other shelter (current) drug therapy Comment: on Methotrexate for Lupus Type of Wound Date of Service: 05/25/19 Chief Complaint: Nonhealing fasciotomy ulcers left lateral leg and left medial leg. History of Wound: Surgery 04/10/19 - 1. Surgical preparation left medial leg with excisional debridement nonhealing fasciotomy ulcer and placement of AmnioFill placental connective tissue powder and STSG reconstruction from left flank (48 cm2). 2. Surgical preparation left lateral leg with excisional debridement nonhealing fasciotomy ulcer and placement of AmnioFill placental connective tissue powder and STSG reconstruction from left flank (20 cm2). Wound care - Silver alginate to the medial and lateral lower leg. Collagen hydrogel to left abdomen donor site. Operative culture - Enterobacter cloacae thus far. Preoperatively her culture showed Acinetobacter baumannii, Enterobacter cloacae, Streptococcus agalactiae, and Anaerobic cocci. She was treated perioperatively with Levaquin and Augmentin. Prealbumin from 04/11/19 was 18.8. Encourage nutritional supplementation with protein to help the healing process. She is experiencing compromise of her left medial skin graft with approx 20% compromise. She has been approved for HBOT and is tolerating it well. She denies fever. Progress of Wound: Slight improvement in skin graft compromise left lateral leg and left medial leg and ulcer left flank is stable. - Physical Exam Vital Signs Temp Pulse Resp BP 98.6 F 102 H 16 149/79 H 05/25/19 09:15 05/25/19 09:15 05/25/19 09:15 05/25/19 09:15 General: Alert, Oriented x3, Cooperative HEENT: Atraumatic Oral: Moist Mucosa Lungs: Normal air movement Cardiovascular: Regular rate Extremities: Capillary Refill Less than 3 Seconds, Edema, Peripheral Pulses Normal Skin: Ulcer/ Wound - left lower lateral and medial leg ulcers and left lower abdomen donor site opened area Wound Measurements and Assessment WC - Nurse 1 - General Ulcer Measurement Start: 05/25/19 09:15 Freq: Status: Active Protocol: Activity Type Activity Date Activity User E-Sign Co-Sign Detail Recorded Client Recorded Date Recorded By Document 05/25/19 09:15 MW [id number] 05/25/19 09:31 MW 05/25/19 09:15 Wound Center Nurse 1 [Ulcer Assessment] #2 LLL Lateral -Combined with other wound No -Current Size (cm) - Length 9.7 -Current Size (cm) - Width 0.3 -Current Size (cm) - Depth 0.1 -Total Square Cm 2.91 -Date of Last Picture (Recall this 05/25/19 field) -Photo Taken Yes -Epithelialization Medium 34-66% -Tunneling No -Undermining/Tunneling No -Circular Undermining No -Exudate Amt Small -Exudate Type Serosanguineous -Wound Margin Flat & Intact -Granulation Amt Medium (34-66%) -Granulation Quality [place] -Slough/Fibrin Yes -Necrosis Amt Medium (34-66%) -Necrotic Tissue Type Adherent Slough -Structure Exposed N/A -Texture (Kisha-wound Skin Appearance) Assessed, Localized Edema ,Scarring -Moisture (Kisha-wound Skin Appearance Assessed,Dry/ ) Scaly -Color (Kisha-wound Skin Appearance) No Abnormality, Assessed -Temperature (Kisha-wound Skin No Abnormality Appearance) (Pt Warm) -Tenderness on Palpation (Kisha-wound No Skin Appearance) -Ulcer Cleansing soap and water -Foul Odor after Cleansing No -Anesthetic Used 4% Lidocaine Solution #1 LLL medial -Combined with other wound No -Current Size (cm) - Length 14.0 -Current Size (cm) - Width 2.0 -Current Size (cm) - Depth 0.2 -Total Square Cm 28.00 -Date of Last Picture (Recall this 05/25/19 field) -Photo Taken Yes -Epithelialization Small 1-33% -Tunneling No -Undermining/Tunneling No -Circular Undermining No -Exudate Amt Small -Exudate Type Serosanguineous -Wound Margin Flat & Intact -Granulation Amt Small (1-33%) -Granulation Quality [place] -Slough/Fibrin Yes -Necrosis Amt Large (67-100%) -Necrotic Tissue Type Adherent Slough -Structure Exposed N/A -Texture (Kisha-wound Skin Appearance) Assessed, Localized Edema ,Scarring -Moisture (Kisha-wound Skin Appearance Assessed,Dry/ ) Scaly -Color (Kisha-wound Skin Appearance) No Abnormality, Assessed -Temperature (Kisha-wound Skin No Abnormality Appearance) (Pt Warm) -Tenderness on Palpation (Kisha-wound No Skin Appearance) -Ulcer Cleansing soap and water -Foul Odor after Cleansing No -Anesthetic Used 4% Lidocaine Solution [Edema Assessment] -Lower Limb Edema Present Yes -Left Calf (cm) 47.0 -Left Ankle (cm) 24.2 WC - Nurse 2 - General Ulcer CM Notes Start: 05/25/19 09:15 Freq: Status: Active Protocol: Activity Type Activity Date Activity User E-Sign Co-Sign Detail Recorded Client Recorded Date Recorded By Document 05/25/19 09:43 [id number] 05/25/19 09:55 MARITA 05/25/19 09:43 Wound Center Nurse 2 [Procedure/Treatment] 4-posterior abdomen -Time 09:52 -Correct Patient Yes -Correct Side, Site, Position Yes -Correct Procedure Yes -Procedure Performed Yes -Type of Procedure Debridement -Clinical Debridement Subcutaneous -Post Debridement Size (cm) - Length 0.7 -Post Debridement Size (cm) - Width 1.5 -Post Debridement Size (cm) - Depth 0.2 -Total Square Cm 1.05 -Wound/Ulcer Outcome Not Healed -Ulcer Cleansing Rinsed/ Irrigated with Saline -Foul Odor after Cleansing No -Bioengineered Tissue No -Bleeding Controlled with Pressure -Offloading No -Treatment Response Procedure Tolerated Well 3-Anterior abdomen -Time 09:51 -Correct Patient Yes -Correct Side, Site, Position Yes -Correct Procedure Yes -Procedure Performed Yes -Type of Procedure Debridement -Clinical Debridement Subcutaneous -Post Debridement Size (cm) - Length 0.7 -Post Debridement Size (cm) - Width 1.0 -Post Debridement Size (cm) - Depth 0.2 -Total Square Cm 0.70 -Wound/Ulcer Outcome Not Healed -Ulcer Cleansing Rinsed/ Irrigated with Saline -Foul Odor after Cleansing No -Bioengineered Tissue No -Bleeding Controlled with Pressure -Offloading No -Treatment Response Procedure Tolerated Well #2 LLL Lateral -Time 09:43 -Correct Patient Yes -Correct Side, Site, Position Yes -Correct Procedure Yes -Procedure Performed Yes -Type of Procedure Debridement -Clinical Debridement Subcutaneous -Post Debridement Size (cm) - Length 10.5 -Post Debridement Size (cm) - Width 0.9 -Post Debridement Size (cm) - Depth 0.1 -Total Square Cm 9.45 -Wound/Ulcer Outcome Not Healed -Ulcer Cleansing Rinsed/ Irrigated with Saline -Foul Odor after Cleansing No -Bioengineered Tissue No -Bleeding Controlled with Pressure -Offloading No -Treatment Response Procedure Tolerated Well #1 LLL medial -Time 09:44 -Correct Patient Yes -Correct Side, Site, Position Yes -Correct Procedure Yes -Procedure Performed Yes -Type of Procedure Debridement -Clinical Debridement Subcutaneous -Post Debridement Size (cm) - Length 13.5 -Post Debridement Size (cm) - Width 1.8 -Post Debridement Size (cm) - Depth 0.3 -Total Square Cm 24.30 -Wound/Ulcer Outcome Not Healed -Ulcer Cleansing Rinsed/ Irrigated with Saline -Foul Odor after Cleansing No -Bioengineered Tissue No -Bleeding Controlled with Pressure -Offloading No -Treatment Response Procedure Tolerated Well [See Physician Procedure note for Specifics] Pain Scale: 0-10 Numeric [Pain] -Is Patient Pain Free? Yes Musculoskeletal: No Tenderness to Palpation of Joints or Extremities Neurological: Neuro grossly intact Psych/Mental Status: Normal Affect, Appropriate Debridement Note Post-Debridement Measurements/Treatment WC - Nurse 2 - General Ulcer CM Notes Start: 05/25/19 09:15 Freq: Status: Active Protocol: Activity Type Activity Date Activity User E-Sign Co-Sign Detail Recorded Client Recorded Date Recorded By Document 05/25/19 09:43 MARITA [id number] 05/25/19 09:55 MARITA 05/25/19 09:43 Wound Center Nurse 2 4-posterior abdomen -Time 09:52 -Correct Patient Yes -Correct Side, Site, Position Yes -Correct Procedure Yes -Procedure Performed Yes -Type of Procedure Debridement -Clinical Debridement Subcutaneous -Post Debridement Size (cm) - Length 0.7 -Post Debridement Size (cm) - Width 1.5 -Post Debridement Size (cm) - Depth 0.2 -Total Square Cm 1.05 -Wound/Ulcer Outcome Not Healed -Ulcer Cleansing Rinsed/ Irrigated with Saline -Foul Odor after Cleansing No -Bioengineered Tissue No -Bleeding Controlled with Pressure -Offloading No -Treatment Response Procedure Tolerated Well 3-Anterior abdomen -Time 09:51 -Correct Patient Yes -Correct Side, Site, Position Yes -Correct Procedure Yes -Procedure Performed Yes -Type of Procedure Debridement -Clinical Debridement Subcutaneous -Post Debridement Size (cm) - Length 0.7 -Post Debridement Size (cm) - Width 1.0 -Post Debridement Size (cm) - Depth 0.2 -Total Square Cm 0.70 -Wound/Ulcer Outcome Not Healed -Ulcer Cleansing Rinsed/ Irrigated with Saline -Foul Odor after Cleansing No -Bioengineered Tissue No -Bleeding Controlled with Pressure -Offloading No -Treatment Response Procedure Tolerated Well #2 LLL Lateral -Time 09:43 -Correct Patient Yes -Correct Side, Site, Position Yes -Correct Procedure Yes -Procedure Performed Yes -Type of Procedure Debridement -Clinical Debridement Subcutaneous -Post Debridement Size (cm) - Length 10.5 -Post Debridement Size (cm) - Width 0.9 -Post Debridement Size (cm) - Depth 0.1 -Total Square Cm 9.45 -Wound/Ulcer Outcome Not Healed -Ulcer Cleansing Rinsed/ Irrigated with Saline -Foul Odor after Cleansing No -Bioengineered Tissue No -Bleeding Controlled with Pressure -Offloading No -Treatment Response Procedure Tolerated Well #1 LLL medial -Time 09:44 -Correct Patient Yes -Correct Side, Site, Position Yes -Correct Procedure Yes -Procedure Performed Yes -Type of Procedure Debridement -Clinical Debridement Subcutaneous -Post Debridement Size (cm) - Length 13.5 -Post Debridement Size (cm) - Width 1.8 -Post Debridement Size (cm) - Depth 0.3 -Total Square Cm 24.30 -Wound/Ulcer Outcome Not Healed -Ulcer Cleansing Rinsed/ Irrigated with Saline -Foul Odor after Cleansing No -Bioengineered Tissue No -Bleeding Controlled with Pressure -Offloading No -Treatment Response Procedure Tolerated Well Pain Scale: 0-10 Numeric Is Patient Pain Free? Yes Wound debrided: lateral leg ulcer Laterality: Left Type of Debridement: Excisional debridement Anesthesia Used: 5% Lidocaine Gel Depth: Down to and including healthy tissue, in the subcutaneous layer Percentage of wound debrided: 100 Instrument Used: 5mm curette Tissue Removed: subcutaneous tissue and slough Severity: Limited To Skin Breakdown Amount of bleeding with debridement: Mild Bleeding Controlled with: Pressure, Compression and gauze Patient tolerated procedure well - Additional Wound Wound debrided: left medial leg Laterality: Left Type of Debridement: Excisional debridement Anesthesia Used: 5% Lidocaine Gel Depth: Down to and including healthy tissue, in the subcutaneous layer Percentage of wound debrided: 100 Instrument Used: 7mm curette Tissue Removed: subcutaneous tissue and slough Severity: Limited To Skin Breakdown Amount of bleeding with debridement: Mild Bleeding Controlled with: Pressure, Compression and gauze Patient tolerated procedure: Patient tolerated procedure well - Additional Wound Wound debrided: left lower abdominal donor site Laterality: Left Type of Debridement: Excisional debridement Anesthesia Used: 5% Lidocaine Gel Depth: Down to and including healthy tissue, in the subcutaneous layer Percentage of wound debrided: 100 Instrument Used: 3mm curette Tissue Removed: subuctaneous tissue and slough Severity: Fat Layer Exposed Amount of bleeding with debridement: Mild Bleeding Controlled with: Pressure, Compression and gauze Patient tolerated procedure: Patient tolerated procedure well Assessment/Plan Assessment: 1. Nonhealing fasciotomy ulcer left medial leg. 2. Nonhealing fasciotomy ulcer left lateral leg. 3. Hematoma with compartment syndrome left leg s/p fasciotomies. 4. park police use of. 5. Lupus. 6. Immunocompromised state due to high risk medication, Methotrexate, for Lupus. Plan: The medial skin graft is showing compromise on about 30% of the graft. The lateral skin graft has a small amount of compromise, about 20 %. She needs to continue to wear compression due to the non pitting edema in her legs bilatera lly. She is tolerating HBOT treatment well. Left donor site incision has a couple opened areas. She is has a history of claustrophobia, will prescribe Valium 5 mg to take 30 minutes before she starts HBOT. Her last chest xray was 01/2019. Operative culture shows Enterobacter cloacae thus far. She was treated perioperatively with Levaquin and Augmentin. Wound care is silver alginate dressing daily to the lateral and medial leg opened areas with MENDEZ wrap for compression. Will put collagen hydrogel to the donor site. Elevate left leg when sitting. Followup one week.
--- NOTE | 2019-05-25 13:22 | HBO.PN.PCM_ITS ---
History of Present Illness Date of Service: 05/25/19 Presenting Chief Complaint: Nonhealing fasciotomy ulcers left lateral leg and left medial leg. NERIS VICKERS is a 48 year old currently undergoing hyperbaric oxygen therapy for nonhealing fasciotomy ulcers of left lateral and medial leg with failed/compromised skin graft surgery April 10, 2019. Progress: Neris presents today for hyperbaric oxygen therapy as the 6th treatment session of 20 planned sessions. Tolerance of hyperbaric oxygen therapy: Hyperbaric oxygen therapy was administered today as per our facility's protocol. HBO therapy was administered for 90 minutes at 2 ATMs. The patient tolerated HBO therapy well with complaints of mild pain in her ears bilaterally but without any signs of barotrauma. Upon emergence from the hyperbaric oxygen chamber, the patient's vital signs remained stable. No barotrauma seen bilateral TMs. Encouraged her to try loratadine or flonase prior to her next treatment session and if no improvement then would consider referral to ENT for tympanostomy tube placement. 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) Lupus (Chronic) 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) on Methotrexate for Lupus High risk medication use (Chronic) on Methotrexate for Lupus [facility] current use of anticoagulant (Chronic) Allergies/Adverse Reactions: Allergies adhesive tape Adverse Reaction (Verified 05/18/19 09:38) Rash Home Medications: Ambulatory Orders Medication Instructions Recorded Aripiprazole [Abilify] 2 mg PO DAILY 07/10/18 Metoprolol Succinate [Toprol Xl] 25 mg PO DAILY 07/10/18 Omeprazole 40 mg PO DAILY 07/10/18 Prednisone 4 mg PO UD 07/10/18 Ranitidine [Zantac] 150 mg PO QHS 07/10/18 Bupropion HCl [Bupropion Xl] 300 mg PO DAILY 08/25/18 Ropinirole HCl [Ropinirole ER] 2 mg PO QHS 08/25/18 Warfarin [Coumadin] 5 mg PO DAILY #0 12/20/18 Folic Acid 1 mg PO DAILY 01/23/19 Baclofen [Lioresal] 10 mg PO Q6H PRN PRN 03/27/19 Ferrous Sulfate 325 mg PO DAILY 03/27/19 Lactobacillus Acidophilus 1 ea PO BID 03/27/19 [Acidophilus] Venlafaxine XR [Effexor Xr] 225 mg PO DAILY 04/10/19 traZODone [Desyrel] 150 mg PO QHS 04/10/19 Diazepam [Valium] 5 mg PO 4X/DAY PRN PRN #30 tab 04/11/19 Famotidine [Pepcid] 20 mg PO HS tab 04/11/19 amoxicillin 875 mg-potassium 1 tab PO Q12H #28 tab 05/14/19 clavulanate 125 mg tablet levofloxacin 500 mg tablet 500 mg PO DAILY #14 tab 05/14/19 HYDROmorphone tablet [Dilaudid] 2 mg PO Q6H PRN PRN 05/18/19 Prednisone 8 mg PO UD 05/18/19 Maternal Family History: Heart Disease Paternal Family History: - - She does not know her father Smoking Status: Never smoker Physical Exam Vital Signs Temp Pulse Resp BP 98.6 F 102 H 16 149/79 H 05/25/19 09:15 05/25/19 09:15 05/25/19 09:15 05/25/19 09:15 General: Alert, Oriented x3, Cooperative HEENT: Atraumatic, TM's Clear Lungs: Clear to auscultation, Normal air movement Cardiovascular: Regular rate Psych/Mental Status: Normal Affect, Appropriate Assessment/Plan The patient tolerated hyperbaric oxygen therapy well and will continue treatments as stated in the patient's medical treatment plan for 20 sessions. Code Visit 16065
[2019-05-25 13:51] VITALS: BP 111/69; BP 133/91; PULSE 68; PULSE 92; RESP 16; RESP 18; TEMP 36.4
[2019-06-01 09:01] VITALS: BP 144/76; PULSE 105; RESP 22; TEMP 36.3; BMI 53.9
[2019-06-01 10:46] VITALS: BP 116/73; BP 122/71; PULSE 103; PULSE 95; RESP 16; RESP 18; TEMP 36.2; TEMP 37.1
--- NOTE | 2019-06-01 10:57 | PCM.WC.PN ---
(1) Ulcer of left lower extremity Status: Chronic Current Visit: Yes Code(s): L97.929 - Non-pressure chronic ulcer of unspecified part of left lower leg with unspecified severity (2) Ulcer of left lower extremity with fat layer exposed Status: Chronic Current Visit: Yes Code(s): L97.922 - Non-pressure chronic ulcer of unspecified part of left lower leg with fat layer exposed (3) Skin graft disorder Status: Chronic Current Visit: Yes Code(s): T86.829 - Unspecified complication of skin graft (allograft) (autograft) (4) Other complications of skin graft (allograft) (autograft) Status: Chronic Current Visit: Yes Code(s): T86.828 - Other complications of skin graft (allograft) (autograft) (5) Lupus Status: Chronic Current Visit: Yes Code(s): M32.9 - Systemic lupus erythematosus, unspecified (6) Immunocompromised state due to drug therapy Status: Chronic Current Visit: Yes 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 History of Wound: Surgery 04/10/19 - 1. Surgical preparation left medial leg with excisional debridement nonhealing fasciotomy ulcer and placement of AmnioFill placental connective tissue powder and STSG reconstruction from left flank (48 cm2). 2. Surgical preparation left lateral leg with excisional debridement nonhealing fasciotomy ulcer and placement of AmnioFill placental connective tissue powder and STSG reconstruction from left flank (20 cm2). Wound care - Silver alginate to the medial and lateral lower leg. Collagen hydrogel to left abdomen donor site. Operative culture - Enterobacter cloacae thus far. Preoperatively her culture showed Acinetobacter baumannii, Enterobacter cloacae, Streptococcus agalactiae, and Anaerobic cocci. She was treated perioperatively with Levaquin and Augmentin. Prealbumin from 04/11/19 was 18.8. Encourage nutritional supplementation with protein to help the healing process. She is experiencing compromise of her left medial skin graft with approx 20% compromise. She has been approved for HBOT and is tolerating it well. She denies fever. Progress of Wound: Improvement in skin graft compromise left lateral leg and left medial leg and the ulcers on the left flank. - Physical Exam Vital Signs Temp Pulse Resp BP 98.8 F 95 18 116/73 06/01/19 10:46 06/01/19 10:46 06/01/19 10:46 06/01/19 10:46 General: Alert, Oriented x3, Cooperative HEENT: Atraumatic Oral: Moist Mucosa Lungs: Normal air movement Cardiovascular: Regular rate Abdomen: Obese Extremities: Capillary Refill Less than 3 Seconds, Edema Skin: Ulcer/ Wound - Left lateral and left medial leg ulcers and two opened area on left flank donor site Wound Measurements and Assessment WC - Nurse 1 - General Ulcer Measurement Start: 05/25/19 09:15 Freq: Status: Active Protocol: Activity Type Activity Date Activity User E-Sign Co-Sign Detail Recorded Client Recorded Date Recorded By Document 06/01/19 09:01 DL [id number] 06/01/19 09:13 DL 06/01/19 09:01 Wound Center Nurse 1 [Ulcer Assessment] 4-posterior abdomen -Current Size (cm) - Length 0.3 -Current Size (cm) - Width 0.6 -Current Size (cm) - Depth 0.1 -Total Square Cm 0.18 -Photo Taken No -Exudate Amt None Present -Wound Margin Flat & Intact -Granulation Amt Large (67-100%) -Granulation Quality [place] -Necrosis Amt None Present (0 %) -Structure Exposed N/A -Texture (Kisha-wound Skin Appearance) Scarring -Moisture (Kisha-wound Skin Appearance No Abnormality ) -Color (Kisha-wound Skin Appearance) No Abnormality -Temperature (Kisha-wound Skin No Abnormality Appearance) (Pt Warm) -Tenderness on Palpation (Kisha-wound No Skin Appearance) -Ulcer Cleansing Rinsed/ Irrigated with Saline -Foul Odor after Cleansing No -Anesthetic Used 4% Lidocaine Solution 3-Anterior abdomen -Current Size (cm) - Length 0.3 -Current Size (cm) - Width 0.5 -Current Size (cm) - Depth 0.1 -Total Square Cm 0.15 -Photo Taken No -Exudate Amt None Present -Wound Margin Thickened -Granulation Amt None Present (0 %) -Necrosis Amt Small (1-33%) -Necrotic Tissue Type Adherent Slough -Structure Exposed N/A -Texture (Kisha-wound Skin Appearance) No Abnormality -Moisture (Kisha-wound Skin Appearance No Abnormality ) -Color (Kisha-wound Skin Appearance) No Abnormality -Temperature (Kisha-wound Skin No Abnormality Appearance) (Pt Warm) -Tenderness on Palpation (Kisha-wound No Skin Appearance) -Ulcer Cleansing Rinsed/ Irrigated with Saline -Foul Odor after Cleansing No -Anesthetic Used 4% Lidocaine Solution #2 LLL Lateral -Current Size (cm) - Length 0.2 -Current Size (cm) - Width 0.2 -Current Size (cm) - Depth 0.1 -Total Square Cm 0.04 -Photo Taken No -Exudate Amt None Present -Wound Margin Flat & Intact -Granulation Amt Small (1-33%) -Granulation Quality Pale,[place] -Necrosis Amt Small (1-33%) -Necrotic Tissue Type Adherent Slough -Structure Exposed N/A -Texture (Kisha-wound Skin Appearance) Scarring -Moisture (Kisha-wound Skin Appearance No Abnormality ) -Color (Kisha-wound Skin Appearance) No Abnormality -Temperature (Kisha-wound Skin No Abnormality Appearance) (Pt Warm) -Tenderness on Palpation (Kisha-wound No Skin Appearance) -Ulcer Cleansing Rinsed/ Irrigated with Saline -Foul Odor after Cleansing No -Anesthetic Used 4% Lidocaine Solution #1 LLL medial -Current Size (cm) - Length 1.7 -Current Size (cm) - Width 9.8 -Current Size (cm) - Depth 0.1 -Total Square Cm 16.66 -Photo Taken No -Exudate Amt Small -Exudate Type Serosanguineous -Wound Margin Distinct, Outline Attached -Granulation Amt Large (67-100%) -Granulation Quality Red -Necrotic Tissue Type Adherent Slough -Structure Exposed N/A -Texture (Kisha-wound Skin Appearance) Scarring -Moisture (Kisha-wound Skin Appearance No Abnormality ) -Color (Kisha-wound Skin Appearance) No Abnormality -Temperature (Kisha-wound Skin No Abnormality Appearance) (Pt Warm) -Tenderness on Palpation (Kisha-wound No Skin Appearance) -Ulcer Cleansing Rinsed/ Irrigated with Saline -Foul Odor after Cleansing No -Anesthetic Used 4% Lidocaine Solution [Edema Assessment] -Left Calf (cm) 45 -Left Ankle (cm) 24 WC - Nurse 2 - General Ulcer CM Notes Start: 05/25/19 09:15 Freq: Status: Active Protocol: Activity Type Activity Date Activity User E-Sign Co-Sign Detail Recorded Client Recorded Date Recorded By Document 11/11/19 09:24 JF [id number] 06/01/19 09:29 MARITA 06/01/19 09:24 Wound Center Nurse 2 [Procedure/Treatment] 4-posterior abdomen -Time 09:29 -Correct Patient Yes -Correct Side, Site, Position Yes -Correct Procedure Yes -Procedure Performed Yes -Type of Procedure Debridement -Clinical Debridement Subcutaneous -Post Debridement Size (cm) - Length 0.3 -Post Debridement Size (cm) - Width 0.7 -Post Debridement Size (cm) - Depth 0.2 -Total Square Cm 0.21 -Wound/Ulcer Outcome Not Healed -Ulcer Cleansing Rinsed/ Irrigated with Saline -Foul Odor after Cleansing No -Bioengineered Tissue No -Bleeding Controlled with Pressure -Offloading No -Treatment Response Procedure Tolerated Well 3-Anterior abdomen -Time 09:29 -Correct Patient Yes -Correct Side, Site, Position Yes -Correct Procedure Yes -Procedure Performed Yes -Type of Procedure Debridement -Clinical Debridement Subcutaneous -Post Debridement Size (cm) - Length 0.3 -Post Debridement Size (cm) - Width 0.7 -Post Debridement Size (cm) - Depth 0.2 -Total Square Cm 0.21 -Wound/Ulcer Outcome Not Healed -Ulcer Cleansing Rinsed/ Irrigated with Saline -Foul Odor after Cleansing No -Bioengineered Tissue No -Bleeding Controlled with Pressure -Offloading No -Treatment Response Procedure Tolerated Well #2 LLL Lateral -Time 09:24 -Correct Patient Yes -Correct Side, Site, Position Yes -Correct Procedure Yes -Procedure Performed Yes -Type of Procedure Debridement -Clinical Debridement Subcutaneous -Post Debridement Size (cm) - Length 5.5 -Post Debridement Size (cm) - Width 0.4 -Post Debridement Size (cm) - Depth 0.2 -Total Square Cm 2.20 -Wound/Ulcer Outcome Not Healed -Ulcer Cleansing Rinsed/ Irrigated with Saline -Foul Odor after Cleansing No -Bioengineered Tissue No -Bleeding Controlled with Pressure -Offloading No -Treatment Response Procedure Tolerated Well #1 LLL medial -Time 09:25 -Correct Patient Yes -Correct Side, Site, Position Yes -Correct Procedure Yes -Procedure Performed Yes -Type of Procedure Debridement -Clinical Debridement Subcutaneous -Post Debridement Size (cm) - Length 14.0 -Post Debridement Size (cm) - Width 1.7 -Post Debridement Size (cm) - Depth 0.3 -Total Square Cm 23.80 -Wound/Ulcer Outcome Not Healed -Ulcer Cleansing Rinsed/ Irrigated with Saline -Foul Odor after Cleansing No -Bioengineered Tissue No -Bleeding Controlled with Pressure -Offloading No -Treatment Response Procedure Tolerated Well [See Physician Procedure note for Specifics] Pain Scale: 0-10 Numeric [Pain] -Is Patient Pain Free? Yes Musculoskeletal: No Muscle Wasting Neurological: Neuro grossly intact Psych/Mental Status: Normal Affect, Appropriate Debridement Note Post-Debridement Measurements/Treatment WC - Nurse 2 - General Ulcer CM Notes Start: 05/25/19 09:15 Freq: Status: Active Protocol: Activity Type Activity Date Activity User E-Sign Co-Sign Detail Recorded Client Recorded Date Recorded By Document 05/25/19 09:43 [id number] 05/25/19 09:55 Document 06/01/19 09:24 [id number] 06/01/19 09:29 05/25/19 06/01/19 09:43 09:24 Wound Center Nurse 2 4-posterior abdomen -Time 09:52 09:29 -Correct Patient Yes Yes -Correct Side, Site, Position Yes Yes -Correct Procedure Yes Yes -Procedure Performed Yes Yes -Type of Procedure Debridement Debridement -Clinical Debridement Subcutaneous Subcutaneous -Post Debridement Size (cm) - Length 0.7 0.3 -Post Debridement Size (cm) - Width 1.5 0.7 -Post Debridement Size (cm) - Depth 0.2 0.2 -Total Square Cm 1.05 0.21 -Wound/Ulcer Outcome Not Healed Not Healed -Ulcer Cleansing Rinsed/ Rinsed/ Irrigated with Irrigated with Saline Saline -Foul Odor after Cleansing No No -Bioengineered Tissue No No -Bleeding Controlled with Pressure Pressure -Offloading No No -Treatment Response Procedure Procedure Tolerated Well Tolerated Well 3-Anterior abdomen -Time 09:51 09:29 -Correct Patient Yes Yes -Correct Side, Site, Position Yes Yes -Correct Procedure Yes Yes -Procedure Performed Yes Yes -Type of Procedure Debridement Debridement -Clinical Debridement Subcutaneous Subcutaneous -Post Debridement Size (cm) - Length 0.7 0.3 -Post Debridement Size (cm) - Width 1.0 0.7 -Post Debridement Size (cm) - Depth 0.2 0.2 -Total Square Cm 0.70 0.21 -Wound/Ulcer Outcome Not Healed Not Healed -Ulcer Cleansing Rinsed/ Rinsed/ Irrigated with Irrigated with Saline Saline -Foul Odor after Cleansing No No -Bioengineered Tissue No No -Bleeding Controlled with Pressure Pressure -Offloading No No -Treatment Response Procedure Procedure Tolerated Well Tolerated Well #2 LLL Lateral -Time 09:43 09:24 -Correct Patient Yes Yes -Correct Side, Site, Position Yes Yes -Correct Procedure Yes Yes -Procedure Performed Yes Yes -Type of Procedure Debridement Debridement -Clinical Debridement Subcutaneous Subcutaneous -Post Debridement Size (cm) - Length 10.5 5.5 -Post Debridement Size (cm) - Width 0.9 0.4 -Post Debridement Size (cm) - Depth 0.1 0.2 -Total Square Cm 9.45 2.20 -Wound/Ulcer Outcome Not Healed Not Healed -Ulcer Cleansing Rinsed/ Rinsed/ Irrigated with Irrigated with Saline Saline -Foul Odor after Cleansing No No -Bioengineered Tissue No No -Bleeding Controlled with Pressure Pressure -Offloading No No -Treatment Response Procedure Procedure Tolerated Well Tolerated Well #1 [facility] medial -Time 09:44 09:25 -Correct Patient Yes Yes -Correct Side, Site, Position Yes Yes -Correct Procedure Yes Yes -Procedure Performed Yes Yes -Type of Procedure Debridement Debridement -Clinical Debridement Subcutaneous Subcutaneous -Post Debridement Size (cm) - Length 13.5 14.0 -Post Debridement Size (cm) - Width 1.8 1.7 -Post Debridement Size (cm) - Depth 0.3 0.3 -Total Square Cm 24.30 23.80 -Wound/Ulcer Outcome Not Healed Not Healed -Ulcer Cleansing Rinsed/ Rinsed/ Irrigated with Irrigated with Saline Saline -Foul Odor after Cleansing No No -Bioengineered Tissue No No -Bleeding Controlled with Pressure Pressure -Offloading No No -Treatment Response Procedure Procedure Tolerated Well Tolerated Well Pain Scale: 0-10 Numeric Is Patient Pain Free? Yes Yes Wound debrided: left lateral leg ulcers Laterality: Left Type of Debridement: Excisional debridement Anesthesia Used: 5% Lidocaine Gel Depth: Down to and including healthy tissue, in the subcutaneous layer Percentage of wound debrided: 100 Instrument Used: 3mm curette Tissue Removed: subcutaneous tissue and slough Severity: Fat Layer Exposed Amount of bleeding with debridement: Mild Bleeding Controlled with: Pressure, Compression and gauze Patient tolerated procedure well - Additional Wound Wound debrided: left medial leg ulcer Laterality: Left Type of Debridement: Excisional debridement Anesthesia Used: 5% Lidocaine Gel Depth: Down to and including healthy tissue, in the subcutaneous layer Instrument Used: 5mm curette Tissue Removed: subcutaneous tissue and slough Severity: Fat Layer Exposed Amount of bleeding with debridement: Mild Bleeding Controlled with: Pressure, Compression and gauze Patient tolerated procedure: Patient tolerated procedure well - Additional Wound Wound debrided: left flank donor site opened areas (2) Laterality: Left Type of Debridement: Excisional debridement Anesthesia Used: 5% Lidocaine Gel Depth: Down to and including healthy tissue, in the subcutaneous layer Percentage of wound debrided: 100 Instrument Used: 3mm curette Tissue Removed: subcutaneous tissue and slough Severity: Fat Layer Exposed Amount of bleeding with debridement: Mild Bleeding Controlled with: Pressure, Compression and gauze Patient tolerated procedure: Patient tolerated procedure well Assessment/Plan Active Problems Ulcer of left lower extremity (Chronic) Ulcer of left lower extremity with fat layer exposed (Chronic) 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) Lupus (Chronic) 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) on Methotrexate for Lupus Assessment: 1. Nonhealing fasciotomy ulcer left medial leg. 2. Nonhealing fasciotomy ulcer left lateral leg. 3. Hematoma with compartment syndrome left leg s/p fasciotomies. 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 5. Lupus. 6. Immunocompromised state due to high risk medication, Methotrexate, for Lupus. Plan: The medial skin graft is showing compromise on about 30% of the graft. The lateral skin graft has a small amount of compromise, about 20 %. She needs to continue to wear compression due to the non pitting edema in her legs bilaterally. She is tolerating HBOT treatment well. Left donor site incision has a couple opened areas. She is has a history of claustrophobia, will prescribe Valium 5 mg to take 30 minutes before she starts HBOT. Her last chest xray was 01/2019. Operative culture shows Enterobacter cloacae thus far. She was treated perioperatively with Levaquin and Augmentin. Wound care is silver alginate dressing daily to the lateral and medial leg opened areas with MENDEZ wrap for compression. Will put collagen hydrogel to the donor site. Elevate left leg when sitting. Followup one week. Code Visit 67620
--- NOTE | 2019-06-01 10:58 | PCM.HBO.PN ---
History of Present Illness Date of Service: 06/01/19 Presenting Chief Complaint: Nonhealing fasciotomy ulcers left lateral leg and left medial leg. NERIS VICKERS is a 48 year old currently undergoing hyperbaric oxygen therapy for nonhealing fasciotomy ulcers of left lateral and medial leg with failed/compromised skin graft surgery April 10, 2019. Progress: Neris presents today for hyperbaric oxygen therapy as the 7th treatment session of 20 planned sessions. Tolerance of hyperbaric oxygen therapy: Hyperbaric oxygen therapy was administered today as per our facility's protocol. HBO therapy was administered for 90 minutes at 2 ATMs. The patient tolerated HBO therapy well with complaints of mild pain in her ears bilaterally but without any signs of barotrauma. Upon emergence from the hyperbaric oxygen chamber, the patient's vital signs remained stable. No barotrauma seen bilateral TMs. 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) Allergies/Adverse Reactions: Allergies adhesive tape Adverse Reaction (Verified 05/18/19 09:38) Rash Home Medications: Ambulatory Orders Medication Instructions Recorded Aripiprazole [Abilify] 2 mg PO DAILY 07/10/18 Metoprolol Succinate [Toprol Xl] 25 mg PO DAILY 07/10/18 Omeprazole 40 mg PO DAILY 07/10/18 Prednisone 4 mg PO UD 07/10/18 Ranitidine [Zantac] 150 mg PO QHS 07/10/18 Bupropion HCl [Bupropion Xl] 300 mg PO DAILY 08/25/18 Ropinirole HCl [Ropinirole ER] 2 mg PO QHS 08/25/18 Warfarin [Coumadin] 5 mg PO DAILY #0 12/20/18 Folic Acid 1 mg PO DAILY 01/23/19 Baclofen [Lioresal] 10 mg PO Q6H PRN PRN 03/27/19 Ferrous Sulfate 325 mg PO DAILY 03/27/19 Lactobacillus Acidophilus 1 ea PO BID 03/27/19 [Acidophilus] Venlafaxine XR [Effexor Xr] 225 mg PO DAILY 04/10/19 traZODone [Desyrel] 150 mg PO QHS 04/10/19 Diazepam [Valium] 5 mg PO 4X/DAY PRN PRN #30 tab 04/11/19 Famotidine [Pepcid] 20 mg PO HS tab 04/11/19 amoxicillin 875 mg-potassium 1 tab PO Q12H #28 tab 05/14/19 clavulanate 125 mg tablet levofloxacin 500 mg tablet 500 mg PO DAILY #14 tab 05/14/19 HYDROmorphone tablet [Dilaudid] 2 mg PO Q6H PRN PRN 05/18/19 Prednisone 8 mg PO UD 05/18/19 Maternal Family History: Heart Disease Paternal Family History: - - She does not know her father Smoking Status: Never smoker Physical Exam Vital Signs Temp Pulse Resp BP 98.8 F 95 18 116/73 06/01/19 10:46 06/01/19 10:46 06/01/19 10:46 06/01/19 10:46 General: Alert, Oriented x3, Cooperative, No apparent distress HEENT: Atraumatic, TM's Clear Lungs: Clear to auscultation, Normal air movement Cardiovascular: Regular rate, Regular Rhythm Psych/Mental Status: Normal Affect, Appropriate, Alert and oriented to time, place, person, mood and affect Assessment/Plan The patient tolerated hyperbaric oxygen therapy well and will continue treatments as stated in the patient's medical treatment plan.
--- NOTE | 2019-06-03 10:24 | HBO.PN.PCM_ITS ---
History of Present Illness Date of Service: 06/03/19 Presenting Chief Complaint: Nonhealing fasciotomy ulcers left lateral leg and left medial leg. NERIS VICKERS is a 48 year old currently undergoing hyperbaric oxygen therapy for nonhealing fasciotomy ulcers of left lateral and medial leg with failed/compromised skin graft surgery April 10, 2019. Progress: Neris presents today for hyperbaric oxygen therapy as the 8th treatment session of 20 planned sessions. Tolerance of hyperbaric oxygen therapy: Hyperbaric oxygen therapy was administered today as per our facility's protocol. The patient was unable to reach prescribed depth as she experienced left ear pain. The patient was resurfaced in the chamber. Upon emergence, she was found to have evidence of barotrauma but no obvious openings. 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 No additional hyperbaric oxygen therapy sessions until cleared by ENT. 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) Allergies/Adverse Reactions: Allergies adhesive tape Adverse Reaction (Verified 05/18/19 09:38) Rash Home Medications: Ambulatory Orders Medication Instructions Recorded Aripiprazole [Abilify] 2 mg PO DAILY 07/10/18 Metoprolol Succinate [Toprol Xl] 25 mg PO DAILY 07/10/18 Omeprazole 40 mg PO DAILY 07/10/18 Prednisone 4 mg PO UD 07/10/18 Ranitidine [Zantac] 150 mg PO QHS 07/10/18 Bupropion HCl [Bupropion Xl] 300 mg PO DAILY 08/25/18 Ropinirole HCl [Ropinirole ER] 2 mg PO QHS 08/25/18 Warfarin [Coumadin] 5 mg PO DAILY #0 12/20/18 Folic Acid 1 mg PO DAILY 01/23/19 Baclofen [Lioresal] 10 mg PO Q6H PRN PRN 03/27/19 Ferrous Sulfate 325 mg PO DAILY 03/27/19 Lactobacillus Acidophilus 1 ea PO BID 03/27/19 [Acidophilus] Venlafaxine XR [Effexor Xr] 225 mg PO DAILY 04/10/19 traZODone [Desyrel] 150 mg PO QHS 04/10/19 Diazepam [Valium] 5 mg PO 4X/DAY PRN PRN #30 tab 04/11/19 Famotidine [Pepcid] 20 mg PO HS tab 04/11/19 amoxicillin 875 mg-potassium 1 tab PO Q12H #28 tab 05/14/19 clavulanate 125 mg tablet levofloxacin 500 mg tablet 500 mg PO DAILY #14 tab 05/14/19 HYDROmorphone tablet [Dilaudid] 2 mg PO Q6H PRN PRN 05/18/19 Prednisone 8 mg PO UD 05/18/19 Maternal Family History: Heart Disease Paternal Family History: - - She does not know her father Smoking Status: Never smoker Physical Exam Vital Signs Temp Pulse Resp BP 98.8 F 95 18 116/73 06/01/19 10:46 06/01/19 10:46 06/01/19 10:46 06/01/19 10:46 General: Alert, Oriented x3, Cooperative, No apparent distress HEENT: Atraumatic, TM's Clear Lungs: Clear to auscultation, Normal air movement Cardiovascular: Regular rate, Regular Rhythm Psych/Mental Status: Normal Affect, Appropriate, Alert and oriented to time, place, person, mood and affect Assessment/Plan Active Problems Ulcer of left lower extremity (Chronic) Ulcer of left lower extremity with fat layer exposed (Chronic) 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) Lupus (Chronic) 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) on Methotrexate for Lupus Plan for referral to gear tooth lapping machine operator, no additional hyperbaric oxygen treatments until referral has been completed and recommendations made.
[2019-06-03 13:58] VITALS: BP 113/74; PULSE 109; RESP 18; TEMP 36.9
[2019-06-04 10:05] VITALS: BP 118/57; BP 123/58; PULSE 83; PULSE 90; RESP 16; RESP 18; TEMP 36.1; TEMP 36.3
--- NOTE | 2019-06-04 11:20 | HBO.PN.PCM_ITS ---
History of Present Illness Date of Service: 06/04/19 Presenting Chief Complaint: Nonhealing fasciotomy ulcers left lateral leg and left medial leg. NERIS VICKERS is a 48 year old currently undergoing hyperbaric oxygen therapy for nonhealing fasciotomy ulcers of left lateral and medial leg with failed/compromised skin graft surgery April 10, 2019. Progress: Neris presents today for hyperbaric oxygen therapy as the 8th treatment session of 20 planned sessions. Tolerance of hyperbaric oxygen therapy: Hyperbaric oxygen therapy was administered today as per our facility's protocol. The patient was unable to reach prescribed depth as she experienced left ear pain. The patient was resurfaced in the chamber. Bilateral eustachian tubes placed on 06/03/2019. Upon exam they are dry and intact. Patient has no complaints. 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) Allergies/Adverse Reactions: Allergies adhesive tape Adverse Reaction (Verified 05/18/19 09:38) Rash Home Medications: Ambulatory Orders Medication Instructions Recorded Aripiprazole [Abilify] 2 mg PO DAILY 07/10/18 Metoprolol Succinate [Toprol Xl] 25 mg PO DAILY 07/10/18 Omeprazole 40 mg PO DAILY 07/10/18 Prednisone 4 mg PO UD 07/10/18 Ranitidine [Zantac] 150 mg PO QHS 07/10/18 Bupropion HCl [Bupropion Xl] 300 mg PO DAILY 08/25/18 Ropinirole HCl [Ropinirole ER] 2 mg PO QHS 08/25/18 Warfarin [Coumadin] 5 mg PO DAILY #0 12/20/18 Folic Acid 1 mg PO DAILY 01/23/19 Baclofen [Lioresal] 10 mg PO Q6H PRN PRN 03/27/19 Ferrous Sulfate 325 mg PO DAILY 03/27/19 Lactobacillus Acidophilus 1 ea PO BID 03/27/19 [Acidophilus] Venlafaxine XR [Effexor Xr] 225 mg PO DAILY 04/10/19 traZODone [Desyrel] 150 mg PO QHS 04/10/19 Diazepam [Valium] 5 mg PO 4X/DAY PRN PRN #30 tab 04/11/19 Famotidine [Pepcid] 20 mg PO HS tab 04/11/19 amoxicillin 875 mg-potassium 1 tab PO Q12H #28 tab 05/14/19 clavulanate 125 mg tablet levofloxacin 500 mg tablet 500 mg PO DAILY #14 tab 05/14/19 HYDROmorphone tablet [Dilaudid] 2 mg PO Q6H PRN PRN 05/18/19 Prednisone 8 mg PO UD 05/18/19 Maternal Family History: Heart Disease Paternal Family History: - - She does not know her father Smoking Status: Never smoker Physical Exam Vital Signs Temp Pulse Resp BP 97.3 F L 83 18 118/57 L 06/04/19 10:05 06/04/19 10:05 06/04/19 10:05 06/04/19 10:05 General: Alert, Oriented x3, Cooperative, No apparent distress HEENT: Atraumatic, TM's Clear Lungs: Clear to auscultation, Normal air movement Cardiovascular: Regular rate, Regular Rhythm Psych/Mental Status: Normal Affect, Appropriate, Alert and oriented to time, place, person, mood and affect Assessment/Plan Active Problems Ulcer of left lower extremity (Chronic) Ulcer of left lower extremity with fat layer 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
[2019-06-05 10:45] VITALS: BP 110/62; BP 133/81; PULSE 104; PULSE 96; RESP 18; TEMP 36; TEMP 36.3
--- NOTE | 2019-06-05 11:31 | PCM.HBO.PN ---
History of Present Illness Date of Service: 06/05/19 Presenting Chief Complaint: Nonhealing fasciotomy ulcers left lateral leg and left medial leg. NERIS VICKERS is a 48 year old currently undergoing hyperbaric oxygen therapy for nonhealing fasciotomy ulcers of left lateral and medial leg with failed/compromised skin graft surgery April 10, 2019. Progress: Neris presents today for hyperbaric oxygen therapy as the 9th treatment session of 20 planned sessions. Tolerance of hyperbaric oxygen therapy: Hyperbaric oxygen therapy was administered today as per our facility's protocol. The patient was unable to reach prescribed depth as she experienced left ear pain. The patient was resurfaced in the chamber. Bilateral eustachian tubes placed on 06/03/2019. Upon exam they are dry and intact. Patient has no complaints. 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) Allergies/Adverse Reactions: Allergies adhesive tape Adverse Reaction (Verified 05/18/19 09:38) Rash Home Medications: Ambulatory Orders Medication Instructions Recorded Aripiprazole [Abilify] 2 mg PO DAILY 07/10/18 Metoprolol Succinate [Toprol Xl] 25 mg PO DAILY 07/10/18 Omeprazole 40 mg PO DAILY 07/10/18 Prednisone 4 mg PO UD 07/10/18 Ranitidine [Zantac] 150 mg PO QHS 07/10/18 Bupropion HCl [Bupropion Xl] 300 mg PO DAILY 08/25/18 Ropinirole HCl [Ropinirole ER] 2 mg PO QHS 08/25/18 Warfarin [Coumadin] 5 mg PO DAILY #0 12/20/18 Folic Acid 1 mg PO DAILY 01/23/19 Baclofen [Lioresal] 10 mg PO Q6H PRN PRN 03/27/19 Ferrous Sulfate 325 mg PO DAILY 03/27/19 Lactobacillus Acidophilus 1 ea PO BID 03/27/19 [Acidophilus] Venlafaxine XR [Effexor Xr] 225 mg PO DAILY 04/10/19 traZODone [Desyrel] 150 mg PO QHS 04/10/19 Diazepam [Valium] 5 mg PO 4X/DAY PRN PRN #30 tab 04/11/19 Famotidine [Pepcid] 20 mg PO HS tab 04/11/19 amoxicillin 875 mg-potassium 1 tab PO Q12H #28 tab 05/14/19 clavulanate 125 mg tablet levofloxacin 500 mg tablet 500 mg PO DAILY #14 tab 05/14/19 HYDROmorphone tablet [Dilaudid] 2 mg PO Q6H PRN PRN 05/18/19 Prednisone 8 mg PO UD 05/18/19 Maternal Family History: Heart Disease Paternal Family History: - - She does not know her father Smoking Status: Never smoker Physical Exam Vital Signs Temp Pulse Resp BP 97.3 F L 104 H 18 133/81 H 06/05/19 10:45 06/05/19 10:45 06/05/19 10:45 06/05/19 10:45 General: Alert, Oriented x3, Cooperative, No apparent distress HEENT: Atraumatic, TM's Clear Lungs: Clear to auscultation, Normal air movement Cardiovascular: Regular rate, Regular Rhythm Psych/Mental Status: Normal Affect, Appropriate, Alert and oriented to time, place, person, mood and affect Assessment/Plan Active Problems Ulcer of left lower extremity (Chronic) Ulcer of left lower extremity with fat layer 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
--- NOTE | 2019-06-09 11:02 | HBO.PN.PCM_ITS ---
History of Present Illness Date of Service: 06/09/19 Presenting Chief Complaint: Nonhealing fasciotomy ulcers left lateral leg and left medial leg. NERIS VICKERS is a 48 year old currently undergoing hyperbaric oxygen therapy for nonhealing fasciotomy ulcers of left lateral and medial leg with failed/compromised skin graft surgery April 10, 2019. Progress: Neris presents today for hyperbaric oxygen therapy as the 10th treatment session of 20 planned sessions. Tolerance of hyperbaric oxygen therapy: Hyperbaric oxygen therapy was administered today as per our facility's protocol. The patient Tolerated hyperbaric oxygen therapy without complaint or complication. Upon exam they are dry and intact. Patient has no complaints. 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) Allergies/Adverse Reactions: Allergies adhesive tape Adverse Reaction (Verified 05/18/19 09:38) Rash Home Medications: Ambulatory Orders Medication Instructions Recorded Aripiprazole [Abilify] 2 mg PO DAILY 07/10/18 Metoprolol Succinate [Toprol Xl] 25 mg PO DAILY 07/10/18 Omeprazole 40 mg PO DAILY 07/10/18 Prednisone 4 mg PO UD 07/10/18 Ranitidine [Zantac] 150 mg PO QHS 07/10/18 Bupropion HCl [Bupropion Xl] 300 mg PO DAILY 08/25/18 Ropinirole HCl [Ropinirole ER] 2 mg PO QHS 08/25/18 Warfarin [Coumadin] 5 mg PO DAILY #0 12/20/18 Folic Acid 1 mg PO DAILY 01/23/19 Baclofen [Lioresal] 10 mg PO Q6H PRN PRN 03/27/19 Ferrous Sulfate 325 mg PO DAILY 03/27/19 Lactobacillus Acidophilus 1 ea PO BID 03/27/19 [Acidophilus] Venlafaxine XR [Effexor Xr] 225 mg PO DAILY 04/10/19 traZODone [Desyrel] 150 mg PO QHS 04/10/19 Diazepam [Valium] 5 mg PO 4X/DAY PRN PRN #30 tab 04/11/19 Famotidine [Pepcid] 20 mg PO HS tab 04/11/19 amoxicillin 875 mg-potassium 1 tab PO Q12H #28 tab 05/14/19 clavulanate 125 mg tablet levofloxacin 500 mg tablet 500 mg PO DAILY #14 tab 05/14/19 HYDROmorphone tablet [Dilaudid] 2 mg PO Q6H PRN PRN 05/18/19 Prednisone 8 mg PO UD 05/18/19 Maternal Family History: Heart Disease Paternal Family History: - - She does not know her father Smoking Status: Never smoker Physical Exam Vital Signs Temp Pulse Resp BP 97.3 F L 104 H 18 133/81 H 06/05/19 10:45 06/05/19 10:45 06/05/19 10:45 06/05/19 10:45 General: Alert, Oriented x3, Cooperative, No apparent distress HEENT: Atraumatic, TM's Clear Lungs: Clear to auscultation, Normal air movement Cardiovascular: Regular rate, Regular Rhythm Psych/Mental Status: Normal Affect, Appropriate, Alert and oriented to time, place, person, mood and affect Assessment/Plan Active Problems Ulcer of left lower extremity (Chronic) Ulcer of left lower extremity with fat layer 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
[2019-06-09 12:52] VITALS: BP 149/107; PULSE 99; RESP 16; TEMP 35.8; BMI 53.9
--- NOTE | 2019-06-09 14:18 | PCM.WC.PN ---
(1) Ulcer of left lower extremity Status: Chronic Current Visit: Yes Code(s): L97.929 - Non-pressure chronic ulcer of unspecified part of left lower leg with unspecified severity (2) Ulcer of left lower extremity with fat layer exposed Status: Chronic Current Visit: Yes Code(s): L97.922 - Non-pressure chronic ulcer of unspecified part of left lower leg with fat layer exposed (3) Skin graft disorder Status: Chronic Current Visit: Yes Code(s): T86.829 - Unspecified complication of skin graft (allograft) (autograft) (4) Other complications of skin graft (allograft) (autograft) Status: Chronic Current Visit: Yes Code(s): T86.828 - Other complications of skin graft (allograft) (autograft) (5) Lupus Status: Chronic Current Visit: Yes Code(s): M32.9 - Systemic lupus erythematosus, unspecified (6) 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 History of Wound: Surgery 04/10/19 - 1. Surgical preparation left medial leg with excisional debridement nonhealing fasciotomy ulcer and placement of AmnioFill placental connective tissue powder and STSG reconstruction from left flank (48 cm2). 2. Surgical preparation left lateral leg with excisional debridement nonhealing fasciotomy ulcer and placement of AmnioFill placental connective tissue powder and STSG reconstruction from left flank (20 cm2). Wound care - Start Ekaterina to the medial and lateral lower leg. Collagen hydrogel to left abdomen donor site. Operative culture - Enterobacter cloacae thus far. Preoperatively her culture showed Acinetobacter baumannii, Enterobacter cloacae, Streptococcus agalactiae, and Anaerobic cocci. She was treated perioperatively with Levaquin and Augmentin. Prealbumin from 04/11/19 was 18.8. Encourage nutritional supplementation with protein to help the healing process. She is experiencing compromise of her left medial skin graft with approx 20% compromise. She has been approved for HBOT and is tolerating it well. She denies fever. Progress of Wound: Improvement in skin graft compromise left lateral leg and left medial leg and the ulcers on the left flank. - Physical Exam Vital Signs Temp Pulse Resp BP 96.4 F L 99 16 149/107 H 06/09/19 12:52 06/09/19 12:52 06/09/19 12:52 06/09/19 12:52 General: Alert, Oriented x3, Cooperative HEENT: Atraumatic Oral: Moist Mucosa Lungs: Normal air movement Cardiovascular: Regular rate Abdomen: Soft Extremities: Edema, Peripheral Pulses Normal Skin: Ulcer/ Wound - Left medial leg ulcer, left lateral leg ulcer and left flank abdomen Wound Measurements and Assessment WC - Nurse 1 - General Ulcer Measurement Start: 05/25/19 09:15 Freq: Status: Active Protocol: Activity Type Activity Date Activity User E-Sign Co-Sign Detail Recorded Client Recorded Date Recorded By Document 06/09/19 12:52 MW [id number] 06/09/19 13:03 MW 06/09/19 12:52 Wound Center Nurse 1 [Ulcer Assessment] 4-posterior abdomen -Combined with other wound No -Current Size (cm) - Length 0.1 -Current Size (cm) - Width 0.1 -Current Size (cm) - Depth 0.1 -Total Square Cm 0.01 -Photo Taken No -Epithelialization Small 1-33% -Tunneling No -Undermining/Tunneling No -Circular Undermining No -Exudate Amt None Present -Wound Margin Flat & Intact -Granulation Amt None Present (0 %) -Granulation Quality N/A -Slough/Fibrin Yes -Necrosis Amt Large (67-100%) -Necrotic Tissue Type Adherent Slough -Structure Exposed N/A -Texture (Kisha-wound Skin Appearance) Assessed, Scarring -Moisture (Kisha-wound Skin Appearance Assessed,Dry/ ) Scaly -Color (Kisha-wound Skin Appearance) No Abnormality, Assessed -Temperature (Kisha-wound Skin No Abnormality Appearance) (Pt Warm) -Ulcer Cleansing Rinsed/ Irrigated with Saline -Foul Odor after Cleansing No -Anesthetic Used 5% Lidocaine Gel 3-Anterior abdomen -Combined with other wound No -Current Size (cm) - Length 0.1 -Current Size (cm) - Width 0.1 -Current Size (cm) - Depth 0.1 -Total Square Cm 0.01 -Photo Taken No -Epithelialization Small 1-33% -Tunneling No -Undermining/Tunneling No -Circular Undermining No -Exudate Amt None Present -Wound Margin Flat & Intact -Granulation Amt None Present (0 %) -Granulation Quality N/A -Slough/Fibrin Yes -Necrosis Amt Large (67-100%) -Necrotic Tissue Type Adherent Slough -Structure Exposed N/A -Texture (Kisha-wound Skin Appearance) Assessed, Scarring -Moisture (Kisha-wound Skin Appearance Assessed,Dry/ ) Scaly -Color (Kisha-wound Skin Appearance) No Abnormality, Assessed -Temperature (Kisha-wound Skin No Abnormality Appearance) (Pt Warm) -Tenderness on Palpation (Kisha-wound Yes Skin Appearance) -Ulcer Cleansing Rinsed/ Irrigated with Saline -Foul Odor after Cleansing No -Anesthetic Used 4% Lidocaine Solution #2 LLL Lateral -Combined with other wound No -Current Size (cm) - Length 7.2 -Current Size (cm) - Width 0.5 -Current Size (cm) - Depth 0.1 -Total Square Cm 3.60 -Photo Taken No -Epithelialization Small 1-33% -Tunneling No -Undermining/Tunneling No -Circular Undermining No -Exudate Amt Small -Exudate Type Serosanguineous -Wound Margin Flat & Intact -Granulation Amt Large (67-100%) -Granulation Quality Red -Slough/Fibrin Yes -Necrosis Amt Small (1-33%) -Necrotic Tissue Type Adherent Slough -Structure Exposed N/A -Texture (Kisha-wound Skin Appearance) Assessed, Localized Edema ,Scarring -Moisture (Kisha-wound Skin Appearance Assessed,Dry/ ) Scaly -Color (Kisha-wound Skin Appearance) No Abnormality, Assessed -Temperature (Kisha-wound Skin No Abnormality Appearance) (Pt Warm) -Ulcer Cleansing Rinsed/ Irrigated with Saline -Foul Odor after Cleansing No -Anesthetic Used 4% Lidocaine Solution #1 LLL medial -Combined with other wound No -Current Size (cm) - Length 13.5 -Current Size (cm) - Width 1.7 -Current Size (cm) - Depth 0.1 -Total Square Cm 22.95 -Photo Taken No -Epithelialization Small 1-33% -Tunneling No -Undermining/Tunneling No -Circular Undermining No -Exudate Amt Medium -Exudate Type Serosanguineous -Wound Margin Flat & Intact -Granulation Amt Small (1-33%) -Granulation Quality [place] -Slough/Fibrin Yes -Necrosis Amt Large (67-100%) -Necrotic Tissue Type Adherent Slough -Structure Exposed N/A -Texture (Kisha-wound Skin Appearance) Assessed, Localized Edema ,Scarring -Moisture (Kisha-wound Skin Appearance Assessed,Dry/ ) Scaly -Color (Kisha-wound Skin Appearance) No Abnormality, Assessed -Temperature (Kisha-wound Skin No Abnormality Appearance) (Pt Warm) -Tenderness on Palpation (Kisha-wound No Skin Appearance) -Ulcer Cleansing Rinsed/ Irrigated with Saline -Foul Odor after Cleansing No -Anesthetic Used 4% Lidocaine Solution [Edema Assessment] -Lower Limb Edema Present Yes -Left Calf (cm) 48.0 -Left Ankle (cm) 25.2 WC - Nurse 2 - General Ulcer CM Notes Start: 05/25/19 09:15 Freq: Status: Active Protocol: Activity Type Activity Date Activity User E-Sign Co-Sign Detail Recorded Client Recorded Date Recorded By Document 06/09/19 13:23 MARITA [id number] 06/09/19 13:32 MARITA 06/09/19 13:23 Wound Center Nurse 2 [Procedure/Treatment] 4-posterior abdomen -Time 13:27 -Correct Patient Yes -Correct Side, Site, Position Yes -Correct Procedure Yes -Procedure Performed Yes -Type of Procedure Debridement -Clinical Debridement Subcutaneous -Post Debridement Size (cm) - Length 0.3 -Post Debridement Size (cm) - Width 1.0 -Post Debridement Size (cm) - Depth 0.1 -Total Square Cm 0.30 -Wound/Ulcer Outcome Not Healed -Ulcer Cleansing Rinsed/ Irrigated with Saline -Foul Odor after Cleansing No -Bioengineered Tissue No -Bleeding Controlled with Pressure -Offloading No -Treatment Response Procedure Tolerated Well 3-Anterior abdomen -Time 13:28 -Correct Patient Yes -Correct Side, Site, Position Yes -Correct Procedure Yes -Procedure Performed Yes -Type of Procedure Debridement -Clinical Debridement Subcutaneous -Post Debridement Size (cm) - Length 0.2 -Post Debridement Size (cm) - Width 0.5 -Post Debridement Size (cm) - Depth 0.1 -Total Square Cm 0.10 -Wound/Ulcer Outcome Not Healed -Ulcer Cleansing Rinsed/ Irrigated with Saline -Foul Odor after Cleansing No -Bioengineered Tissue No -Bleeding Controlled with Pressure -Offloading No -Treatment Response Procedure Tolerated Well #2 LLL Lateral -Time 13:24 -Correct Patient Yes -Correct Side, Site, Position Yes -Correct Procedure Yes -Procedure Performed Yes -Type of Procedure Debridement -Clinical Debridement Subcutaneous -Post Debridement Size (cm) - Length 7.5 -Post Debridement Size (cm) - Width 0.4 -Post Debridement Size (cm) - Depth 0.1 -Total Square Cm 3.00 -Wound/Ulcer Outcome Not Healed -Ulcer Cleansing Rinsed/ Irrigated with Saline -Foul Odor after Cleansing No -Bioengineered Tissue No -Bleeding Controlled with Pressure -Offloading No -Treatment Response Procedure Tolerated Well #1 LLL medial -Time 13:24 -Correct Patient Yes -Correct Side, Site, Position Yes -Correct Procedure Yes -Procedure Performed Yes -Type of Procedure Debridement -Clinical Debridement Subcutaneous -Post Debridement Size (cm) - Length 13.7 -Post Debridement Size (cm) - Width 1.8 -Post Debridement Size (cm) - Depth 0.3 -Total Square Cm 24.66 -Wound/Ulcer Outcome Not Healed -Ulcer Cleansing Rinsed/ Irrigated with Saline -Foul Odor after Cleansing No -Bioengineered Tissue No -Bleeding Controlled with Pressure -Offloading No -Treatment Response Procedure Tolerated Well [See Physician Procedure note for Specifics] Pain Scale: 0-10 Numeric [Pain] -Is Patient Pain Free? Yes Musculoskeletal: No Muscle Wasting Neurological: Neuro grossly intact Psych/Mental Status: Normal Affect, Appropriate Debridement Note Post-Debridement Measurements/Treatment WC - Nurse 2 - General Ulcer CM Notes Start: 05/25/19 09:15 Freq: Status: Active Protocol: Activity Type Activity Date Activity User E-Sign Co-Sign Detail Recorded Client Recorded Date Recorded By Document 05/25/19 09:43 [id number] 05/25/19 09:55 Document 06/01/19 09:24 [id number] 06/01/19 09:29 Document 06/09/19 13:23 [id number] 06/09/19 13:32 05/25/19 06/01/19 06/09/19 09:43 09:24 13:23 Wound Center Nurse 2 4-posterior abdomen -Time 09:52 09:29 13:27 -Correct Patient Yes Yes Yes -Correct Side, Site, Position Yes Yes Yes -Correct Procedure Yes Yes Yes -Procedure Performed Yes Yes Yes -Type of Procedure Debridement Debridement Debridement -Clinical Debridement Subcutaneous Subcutaneous Subcutaneous -Post Debridement Size (cm) - Length 0.7 0.3 0.3 -Post Debridement Size (cm) - Width 1.5 0.7 1.0 -Post Debridement Size (cm) - Depth 0.2 0.2 0.1 -Total Square Cm 1.05 0.21 0.30 -Wound/Ulcer Outcome Not Healed Not Healed Not Healed -Ulcer Cleansing Rinsed/ Rinsed/ Rinsed/ Irrigated with Irrigated with Irrigated with Saline Saline Saline -Foul Odor after Cleansing No No No -Bioengineered Tissue No No No -Bleeding Controlled with Pressure Pressure Pressure -Offloading No No No -Treatment Response Procedure Procedure Procedure Tolerated Well Tolerated Well Tolerated Well 3-Anterior abdomen -Time 09:51 09:29 13:28 -Correct Patient Yes Yes Yes -Correct Side, Site, Position Yes Yes Yes -Correct Procedure Yes Yes Yes -Procedure Performed Yes Yes Yes -Type of Procedure Debridement Debridement Debridement -Clinical Debridement Subcutaneous Subcutaneous Subcutaneous -Post Debridement Size (cm) - Length 0.7 0.3 0.2 -Post Debridement Size (cm) - Width 1.0 0.7 0.5 -Post Debridement Size (cm) - Depth 0.2 0.2 0.1 -Total Square Cm 0.70 0.21 0.10 -Wound/Ulcer Outcome Not Healed Not Healed Not Healed -Ulcer Cleansing Rinsed/ Rinsed/ Rinsed/ Irrigated with Irrigated with Irrigated with Saline Saline Saline -Foul Odor after Cleansing No No No -Bioengineered Tissue No No No -Bleeding Controlled with Pressure Pressure Pressure -Offloading No No No -Treatment Response Procedure Procedure Procedure Tolerated Well Tolerated Well Tolerated Well #2 LLL Lateral -Time 09:43 09:24 13:24 -Correct Patient Yes Yes Yes -Correct Side, Site, Position Yes Yes Yes -Correct Procedure Yes Yes Yes -Procedure Performed Yes Yes Yes -Type of Procedure Debridement Debridement Debridement -Clinical Debridement Subcutaneous Subcutaneous Subcutaneous -Post Debridement Size (cm) - Length 10.5 5.5 7.5 -Post Debridement Size (cm) - Width 0.9 0.4 0.4 -Post Debridement Size (cm) - Depth 0.1 0.2 0.1 -Total Square Cm 9.45 2.20 3.00 -Wound/Ulcer Outcome Not Healed Not Healed Not Healed -Ulcer Cleansing Rinsed/ Rinsed/ Rinsed/ Irrigated with Irrigated with Irrigated with Saline Saline Saline -Foul Odor after Cleansing No No No -Bioengineered Tissue No No No -Bleeding Controlled with Pressure Pressure Pressure -Offloading No No No -Treatment Response Procedure Procedure Procedure Tolerated Well Tolerated Well Tolerated Well #1 LLL medial -Time 09:44 09:25 13:24 -Correct Patient Yes Yes Yes -Correct Side, Site, Position Yes Yes Yes -Correct Procedure Yes Yes Yes -Procedure Performed Yes Yes Yes -Type of Procedure Debridement Debridement Debridement -Clinical Debridement Subcutaneous Subcutaneous Subcutaneous -Post Debridement Size (cm) - Length 13.5 14.0 13.7 -Post Debridement Size (cm) - Width 1.8 1.7 1.8 -Post Debridement Size (cm) - Depth 0.3 0.3 0.3 -Total Square Cm 24.30 23.80 24.66 -Wound/Ulcer Outcome Not Healed Not Healed Not Healed -Ulcer Cleansing Rinsed/ Rinsed/ Rinsed/ Irrigated with Irrigated with Irrigated with Saline Saline Saline -Foul Odor after Cleansing No No No -Bioengineered Tissue No No No -Bleeding Controlled with Pressure Pressure Pressure -Offloading No No No -Treatment Response Procedure Procedure Procedure Tolerated Well Tolerated Well Tolerated Well Pain Scale: 0-10 Numeric Is Patient Pain Free? Yes Yes Yes Wound debrided: medial left ulcer Laterality: Left Type of Debridement: Excisional debridement Anesthesia Used: 5% Lidocaine Gel Depth: Down to and including healthy tissue, in the subcutaneous layer Percentage of wound debrided: 100 Instrument Used: 5mm curette Tissue Removed: Subcutaneous tissue and slough Severity: Fat Layer Exposed Amount of bleeding with debridement: Mild Bleeding Controlled with: Pressure, Compression and gauze Patient tolerated procedure well - Additional Wound Wound debrided: lateral leg ulcers Laterality: Left Type of Debridement: Excisional debridement Anesthesia Used: 5% Lidocaine Gel Depth: Down to and including healthy tissue, in the subcutaneous layer Percentage of wound debrided: 100 Instrument Used: 3mm curette Tissue Removed: Subcutaneous tissue and slough Severity: Limited To Skin Breakdown Amount of bleeding with debridement: Mild Bleeding Controlled with: Pressure, Compression and gauze Patient tolerated procedure: Patient tolerated procedure well - Additional Wound Wound debrided: Flank Laterality: Left Type of Debridement: Excisional debridement Anesthesia Used: 5% Lidocaine Gel Depth: Down to and including healthy tissue, in the subcutaneous layer Percentage of wound debrided: 100 Instrument Used: 3mm curette Tissue Removed: Subcutaneous tissue and slough Severity: Limited To Skin Breakdown Amount of bleeding with debridement: Mild Bleeding Controlled with: Pressure, Compression and gauze Patient tolerated procedure: Patient tolerated procedure well Assessment/Plan Active Problems Ulcer of left lower extremity (Chronic) Ulcer of left lower extremity with fat layer exposed (Chronic) 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) Lupus (Chronic) 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) on Methotrexate for Lupus Assessment: 1. Nonhealing fasciotomy ulcer left medial leg. 2. Nonhealing fasciotomy ulcer left lateral leg. 3. Hematoma with compartment syndrome left leg s/p fasciotomies. 4. skilled nursing use of. 5. Lupus. 6. Immunocompromised state due to high risk medication, Methotrexate, for Lupus. Plan: The medial skin graft is showing compromise on about 30% of the graft. The lateral skin graft has a small amount of compromise, about 20 %. She needs to continue to wear compression due to the non pitting edema in her legs bilaterally. She is tolerating HBOT treatment well. Left donor site incision has a couple opened areas. She is has a history of claustrophobia, which the Valium 5 mg to take 30 minutes before she starts HBOT is helping with it. Her last chest xray was 01/2019. Operative culture shows Enterobacter cloacae thus far. She was treated perioperatively with Levaquin and Augmentin. Wound care is Ekaterina dressing daily to the lateral and medial leg opened areas with MENDEZ wrap for compression. Will put collagen hydrogel to the donor site. Elevate left leg when sitting. Followup one week. Code Visit 90545
[2019-06-09 16:13] VITALS: BP 109/61; BP 123/74; PULSE 77; PULSE 79; RESP 18; RESP 19; TEMP 36.7; TEMP 36.9
--- NOTE | 2019-06-10 11:23 | PCM.HBO.PN ---
History of Present Illness Date of Service: 06/10/19 Presenting Chief Complaint: Nonhealing fasciotomy ulcers left lateral leg and left medial leg. NERIS VICKERS is a 48 year old currently undergoing hyperbaric oxygen therapy for nonhealing fasciotomy ulcers of left lateral and medial leg with failed/compromised skin graft surgery April 10, 2019. Progress: Neris presents today for hyperbaric oxygen therapy as the 11th treatment session of 20 planned sessions. Tolerance of hyperbaric oxygen therapy: Hyperbaric oxygen therapy was administered today as per our facility's protocol. The patient Tolerated hyperbaric oxygen therapy without complaint or complication. Upon exam they are dry and intact. Patient has no complaints. 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) Allergies/Adverse Reactions: Allergies adhesive tape Adverse Reaction (Verified 05/18/19 09:38) Rash Home Medications: Ambulatory Orders Medication Instructions Recorded Aripiprazole [Abilify] 2 mg PO DAILY 07/10/18 Metoprolol Succinate [Toprol Xl] 25 mg PO DAILY 07/10/18 Omeprazole 40 mg PO DAILY 07/10/18 Prednisone 4 mg PO UD 07/10/18 Ranitidine [Zantac] 150 mg PO QHS 07/10/18 Bupropion HCl [Bupropion Xl] 300 mg PO DAILY 08/25/18 Ropinirole HCl [Ropinirole ER] 2 mg PO QHS 08/25/18 Warfarin [Coumadin] 5 mg PO DAILY #0 12/20/18 Folic Acid 1 mg PO DAILY 01/23/19 Baclofen [Lioresal] 10 mg PO Q6H PRN PRN 03/27/19 Ferrous Sulfate 325 mg PO DAILY 03/27/19 Lactobacillus Acidophilus 1 ea PO BID 03/27/19 [Acidophilus] Venlafaxine XR [Effexor Xr] 225 mg PO DAILY 04/10/19 traZODone [Desyrel] 150 mg PO QHS 04/10/19 Diazepam [Valium] 5 mg PO 4X/DAY PRN PRN #30 tab 04/11/19 Famotidine [Pepcid] 20 mg PO HS tab 04/11/19 amoxicillin 875 mg-potassium 1 tab PO Q12H #28 tab 05/14/19 clavulanate 125 mg tablet levofloxacin 500 mg tablet 500 mg PO DAILY #14 tab 05/14/19 HYDROmorphone tablet [Dilaudid] 2 mg PO Q6H PRN PRN 05/18/19 Prednisone 8 mg PO UD 05/18/19 Maternal Family History: Heart Disease Paternal Family History: - - She does not know her father Smoking Status: Never smoker Physical Exam Vital Signs Temp Pulse Resp BP 98.4 F 79 19 H 109/61 06/09/19 16:13 06/09/19 16:13 06/09/19 16:13 06/09/19 16:13 General: Alert, Oriented x3, Cooperative, No apparent distress HEENT: Atraumatic, TM's Clear Lungs: Clear to auscultation, Normal air movement Cardiovascular: Regular rate, Regular Rhythm Psych/Mental Status: Normal Affect, Appropriate, Alert and oriented to time, place, person, mood and affect Assessment/Plan Active Problems Ulcer of left lower extremity (Chronic) Ulcer of left lower extremity with fat layer 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
[2019-06-12 10:37] VITALS: BP 129/87; BP 131/72; PULSE 106; PULSE 113; RESP 16; RESP 18; TEMP 36.4; TEMP 36.7
--- NOTE | 2019-06-12 13:46 | HBO.PN.PCM_ITS ---
History of Present Illness Date of Service: 06/12/19 Presenting Chief Complaint: Nonhealing fasciotomy ulcers left lateral leg and left medial leg. NERIS VICKERS is a 48 year old currently undergoing hyperbaric oxygen therapy for nonhealing fasciotomy ulcers of left lateral and medial leg with failed/compromised skin graft surgery April 10, 2019. Progress: Neris presents today for hyperbaric oxygen therapy as the 13th treatment session of 20 planned sessions. Tolerance of hyperbaric oxygen therapy: Hyperbaric oxygen therapy was administered today as per our facility's protocol. The patient Tolerated hyperbaric oxygen therapy without complaint or complication. Upon exam they are dry and intact. Patient has no complaints. 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) Allergies/Adverse Reactions: Allergies adhesive tape Adverse Reaction (Verified 05/18/19 09:38) Rash Home Medications: Ambulatory Orders Medication Instructions Recorded Aripiprazole [Abilify] 2 mg PO DAILY 07/10/18 Metoprolol Succinate [Toprol Xl] 25 mg PO DAILY 07/10/18 Omeprazole 40 mg PO DAILY 07/10/18 Prednisone 4 mg PO UD 07/10/18 Ranitidine [Zantac] 150 mg PO QHS 07/10/18 Bupropion HCl [Bupropion Xl] 300 mg PO DAILY 08/25/18 Ropinirole HCl [Ropinirole ER] 2 mg PO QHS 08/25/18 Warfarin [Coumadin] 5 mg PO DAILY #0 12/20/18 Folic Acid 1 mg PO DAILY 01/23/19 Baclofen [Lioresal] 10 mg PO Q6H PRN PRN 03/27/19 Ferrous Sulfate 325 mg PO DAILY 03/27/19 Lactobacillus Acidophilus 1 ea PO BID 03/27/19 [Acidophilus] Venlafaxine XR [Effexor Xr] 225 mg PO DAILY 04/10/19 traZODone [Desyrel] 150 mg PO QHS 04/10/19 Diazepam [Valium] 5 mg PO 4X/DAY PRN PRN #30 tab 04/11/19 Famotidine [Pepcid] 20 mg PO HS tab 04/11/19 amoxicillin 875 mg-potassium 1 tab PO Q12H #28 tab 05/14/19 clavulanate 125 mg tablet levofloxacin 500 mg tablet 500 mg PO DAILY #14 tab 05/14/19 HYDROmorphone tablet [Dilaudid] 2 mg PO Q6H PRN PRN 05/18/19 Prednisone 8 mg PO UD 05/18/19 Maternal Family History: Heart Disease Paternal Family History: - - She does not know her father Smoking Status: Never smoker Physical Exam Vital Signs Temp Pulse Resp BP 98.0 F 113 H 18 129/87 H 06/12/19 10:37 06/12/19 10:37 06/12/19 10:37 06/12/19 10:37 General: Alert, Oriented x3, Cooperative, No apparent distress Psych/Mental Status: Normal Affect, Appropriate Assessment/Plan Active Problems Ulcer of left lower extremity (Chronic) Ulcer of left lower extremity with fat layer 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
--- NOTE | 2019-06-15 10:49 | HBO.PN.PCM_ITS ---
History of Present Illness Date of Service: 06/15/19 Presenting Chief Complaint: Nonhealing fasciotomy ulcers left lateral leg and left medial leg. NERIS VICKERS is a 48 year old currently undergoing hyperbaric oxygen therapy for nonhealing fasciotomy ulcers of left lateral and medial leg with failed/compromised skin graft surgery April 10, 2019. Progress: Neris presents today for hyperbaric oxygen therapy as the 14th treatment session of 20 planned sessions. Tolerance of hyperbaric oxygen therapy: Hyperbaric oxygen therapy was administered today as per our facility's protocol. The patient Tolerated hyperbaric oxygen therapy without complaint or complication. Upon exam they are dry and intact. Patient has no complaints. 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) Allergies/Adverse Reactions: Allergies adhesive tape Adverse Reaction (Verified 05/18/19 09:38) Rash Home Medications: Ambulatory Orders Medication Instructions Recorded Aripiprazole [Abilify] 2 mg PO DAILY 07/10/18 Metoprolol Succinate [Toprol Xl] 25 mg PO DAILY 07/10/18 Omeprazole 40 mg PO DAILY 07/10/18 Prednisone 4 mg PO UD 07/10/18 Ranitidine [Zantac] 150 mg PO QHS 07/10/18 Bupropion HCl [Bupropion Xl] 300 mg PO DAILY 08/25/18 Ropinirole HCl [Ropinirole ER] 2 mg PO QHS 08/25/18 Warfarin [Coumadin] 5 mg PO DAILY #0 12/20/18 Folic Acid 1 mg PO DAILY 01/23/19 Baclofen [Lioresal] 10 mg PO Q6H PRN PRN 03/27/19 Ferrous Sulfate 325 mg PO DAILY 03/27/19 Lactobacillus Acidophilus 1 ea PO BID 03/27/19 [Acidophilus] Venlafaxine XR [Effexor Xr] 225 mg PO DAILY 04/10/19 traZODone [Desyrel] 150 mg PO QHS 04/10/19 Diazepam [Valium] 5 mg PO 4X/DAY PRN PRN #30 tab 04/11/19 Famotidine [Pepcid] 20 mg PO HS tab 04/11/19 amoxicillin 875 mg-potassium 1 tab PO Q12H #28 tab 05/14/19 clavulanate 125 mg tablet levofloxacin 500 mg tablet 500 mg PO DAILY #14 tab 05/14/19 HYDROmorphone tablet [Dilaudid] 2 mg PO Q6H PRN PRN 05/18/19 Prednisone 8 mg PO UD 05/18/19 Maternal Family History: Heart Disease Paternal Family History: - - She does not know her father Smoking Status: Never smoker Physical Exam Vital Signs Temp Pulse Resp BP 98.0 F 113 H 18 129/87 H 06/12/19 10:37 06/12/19 10:37 06/12/19 10:37 06/12/19 10:37 General: Alert, Cooperative, No apparent distress HEENT: Atraumatic, TM's Clear Lungs: Clear to auscultation, Normal air movement Cardiovascular: Regular rate, Regular Rhythm Psych/Mental Status: Normal Affect, Appropriate, Alert and oriented to time, place, person, mood and affect Assessment/Plan Active Problems Ulcer of left lower extremity (Chronic) Ulcer of left lower extremity with fat layer 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
[2019-06-15 11:15] VITALS: BP 142/100; PULSE 105; RESP 18; TEMP 37.1
--- NOTE | 2019-06-16 11:27 | PCM.HBO.PN ---
History of Present Illness Date of Service: 06/16/19 Presenting Chief Complaint: Nonhealing fasciotomy ulcers left lateral leg and left medial leg. NERIS VICKERS is a 48 year old currently undergoing hyperbaric oxygen therapy for nonhealing fasciotomy ulcers of left lateral and medial leg with failed/compromised skin graft surgery April 10, 2019. Progress: Neris presents today for hyperbaric oxygen therapy as the 15th treatment session of 20 planned sessions. Tolerance of hyperbaric oxygen therapy: Hyperbaric oxygen therapy was administered today as per our facility's protocol. The patient Tolerated hyperbaric oxygen therapy without complaint or complication. Upon exam they are dry and intact. Patient has no complaints. 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) Allergies/Adverse Reactions: Allergies adhesive tape Adverse Reaction (Verified 05/18/19 09:38) Rash Home Medications: Ambulatory Orders Medication Instructions Recorded Aripiprazole [Abilify] 2 mg PO DAILY 07/10/18 Metoprolol Succinate [Toprol Xl] 25 mg PO DAILY 07/10/18 Omeprazole 40 mg PO DAILY 07/10/18 Prednisone 4 mg PO UD 07/10/18 Ranitidine [Zantac] 150 mg PO QHS 07/10/18 Bupropion HCl [Bupropion Xl] 300 mg PO DAILY 08/25/18 Ropinirole HCl [Ropinirole ER] 2 mg PO QHS 08/25/18 Warfarin [Coumadin] 5 mg PO DAILY #0 12/20/18 Folic Acid 1 mg PO DAILY 01/23/19 Baclofen [Lioresal] 10 mg PO Q6H PRN PRN 03/27/19 Ferrous Sulfate 325 mg PO DAILY 03/27/19 Lactobacillus Acidophilus 1 ea PO BID 03/27/19 [Acidophilus] Venlafaxine XR [Effexor Xr] 225 mg PO DAILY 04/10/19 traZODone [Desyrel] 150 mg PO QHS 04/10/19 Diazepam [Valium] 5 mg PO 4X/DAY PRN PRN #30 tab 04/11/19 Famotidine [Pepcid] 20 mg PO HS tab 04/11/19 amoxicillin 875 mg-potassium 1 tab PO Q12H #28 tab 05/14/19 clavulanate 125 mg tablet levofloxacin 500 mg tablet 500 mg PO DAILY #14 tab 05/14/19 HYDROmorphone tablet [Dilaudid] 2 mg PO Q6H PRN PRN 05/18/19 Prednisone 8 mg PO UD 05/18/19 Maternal Family History: Heart Disease Paternal Family History: - - She does not know her father Smoking Status: Never smoker Physical Exam Vital Signs Temp Pulse Resp BP 98.8 F 105 H 18 142/100 H 06/15/19 11:15 06/15/19 11:15 06/15/19 11:15 06/15/19 11:15 General: Alert, Oriented x3, Cooperative HEENT: Atraumatic, TM's Clear Lungs: Clear to auscultation, Normal air movement Cardiovascular: Regular rate, Regular Rhythm Psych/Mental Status: Normal Affect, Appropriate, Alert and oriented to time, place, person, mood and affect Assessment/Plan Active Problems Ulcer of left lower extremity (Chronic) Ulcer of left lower extremity with fat layer 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
[2019-06-16 12:25] VITALS: BP 112/67; BP 133/83; PULSE 111; PULSE 98; RESP 16; RESP 18; TEMP 36.2; TEMP 37.1
== END 2019-06-20 23:59 ==
LOC: WC 10:00
PROVIDERS: Family Provider Family Medicine; PCP Family Medicine; Referring Provider Surgery; Visit Provider Surgery
DX: T86.828 Other complications of skin graft (allograft) (autograft) (principal); Y83.8 Other surgical procedures as the cause of abnormal reaction of the patient, or of later complication, without mention of misadventure at the time of the procedure; M32.9 Systemic lupus erythematosus, unspecified
CPT/HCPCS: 11042; 11045; 99183; G0277

== ENCOUNTER 2019-06-25 13:11 | Emergency (ER) | payer MEDICAID, SELFPAY ==
[2019-06-22 12:34] VITALS: BMI 53.9
[2019-06-25 13:12] VITALS: BP 130/68; PULSE 90; RESP 17; TEMP 36.6; O2SAT 99; BMI 54.6
--- NOTE | 2019-06-25 13:30 | EKG12_ITS ---
Test Reason : PALPS Blood Pressure : / mmHG Vent. Rate : 087 BPM Atrial Rate : 087 BPM P-R Int : 134 ms QRS Dur : 086 ms QT Int : 364 ms P-R-T Axes : 032 053 066 degrees QTc Int : 438 ms Sinus rhythm with occasional Premature ventricular complexes Cannot rule out Anterior infarct , age undetermined Abnormal ECG Confirmed by ROBBIE LEON, SHEELA ([id number]), brands editor ROSSY LEACH ([id number]) on 06/28/2019 10:01:00 AM Referred By: Nghia Kent Confirmed By:JOZEF AVALOS MD
--- NOTE | 2019-06-25 13:30 | RAD_ITS ---
STUDY: X-RAY CHEST REASON FOR EXAM: Female, 48 years old. Unknown arrhythmia. TECHNIQUE: Single AP portable view of the chest. COMPARISON: Comparison is made with prior study May 18, 2018. FINDINGS: EKG electrodes are seen. The lungs are clear and expanded. There is no demonstrated pleural abnormality. Normal size heart. Normal mediastinum and xiomara. Normal visualized pulmonary arteries. Normal visualized aortic arch and descending thoracic aorta. Normal visualized thoracic spine. Normal visualized ribs, clavicles, and shoulders. Hiatal hernia. RAD/Chest 1 View (Portable) IMPRESSION: Hiatal hernia. The lungs are clear. Electronically Signed: Yan Clement, at 14:32 EST , Service support ,
[2019-06-25 13:49] LABS: Absolute Neutrophil Count 6.8 X10^3/uL (2.0-7.7); Basophil# 0.04 X10^3/uL; Basophil% 0.4 % (0-1); Eosinophils% 1.1 % (0-5); Hematocrit 39.5 % (37-47); Hemoglobin 12.2 g/dL (12.0-15.0); Lymphocyte % 20.3 % (19-41); Mean Corp Hgb Conc 30.9 g/dL (32-36); Mean Corpuscular Hgb 27.3 pg (27.0-32.0); Mean Corpuscular Volume 88.4 fL (81-99); Mean Platelet Vol. 8.9 fl (6.2-12.0); Monocyte# 0.53 X10^3/uL; Monocyte% 5.7 % (0-10); NRBC Flagged by Analyzer 0 % (0-5); Neutrophil # 6.75 X10^3/uL (2.7-7.7); Neutrophil % 72.2 % (47-70); Platelet Count 366 K/mm3 (150-450); RBC Distribution Width CV 15.6 % (11.6-14.6); RBC Distribution Width SD 50.2 fl (35.1-43.9); Red Blood Count 4.47 M/mm3 (4.2-5.4); White Blood Count 9.4 K/mm3 (4.4-11.0)
[2019-06-25 13:51] VITALS: O2SAT 97
[2019-06-25 14:04] LABS: Anion Gap 7 (5-15); BUN 13 mg/dL (7-18); BUN/Creat Ratio 15.8 RATIO (10-20); Calcium,Total 9.1 mg/dL (8.5-10.1); Chloride 102 mmol/L (98-107); Creatinine, Serum 0.82 mg/dL (0.55-1.02); EST Glomerular Filtration Rate 78 mL/min (>60); Est Glom Filt Rate - Afr Amer 95 mL/min (>60); Glucose 93 mg/dL (74-106); Potassium 4.3 mmol/L (3.5-5.1); Sodium Level 136 mmol/L (136-145)
--- NOTE | 2019-06-25 15:09 | ED.VIS.GEN ---
History of Present Illness Chief Complaint: Palpitations Informant: Patient Onset: Today Current Severity: Mild Narrative: Sense of palpitations Patient indicates basically she has a history of a chronic wound related to compartment syndrome left leg she undergoes hyperbaric oxygen therapy here at the hospital, she indicates prior to coming to the hospital for any therapy she began having a sense of palpitations during the session where she lays flat she also had the palpitations and afterwards was recommended she come to the hospital for evaluation The patient has no history of MT PE or DVT she does report that a few years ago after an orthopedic procedure she developed a pericardial effusion required pericardial window, the etiology of LV but was never established she has not had any recurrence of any type of cardiovascular symptoms since, there is report occasionally when she coughs or moves in a certain way she feels that there is some type of a defect in the chest wall where the pericardial window was done and she is scheduled to see a cardiothoracic surgeon soon She has not been ill in any way no fever no cough normal bowel bladder habits no flu symptoms no chest pain On our cardiac rn she is in a sinus rhythm she has an occasional PVC 1 about every 30 to 60 seconds During her stay in the emergency department the PVCs stopped Past Medical History - Allergies and Home Meds Allergies/Adverse Reactions: Allergies adhesive tape Adverse Reaction (Verified 06/25/19 13:20) Rash Primary Care Physician: Tarah Dubon DO [Primary Care Provider] - Past Medical History: - - As above Surgical History: - - bilateral knee replacement Smoking Status: Never smoker - Family History Maternal Family History: Reports: Heart Disease Paternal Family History: Reports: - - She does not know her father Review of Systems General: Reports: - - Complaint is palpitations. Denies: Chills, Fever, Sweats Eyes: Denies: Visual changes - bilaterally, Diplopia ENT: Denies: Rhinorrhea, Sore throat Cardiovascular: Reports: Palpitations. Denies: Chest pain Respiratory: Denies: Dyspnea, Cough, Dyspnea on exertion Gastrointestinal: Denies: Abdominal pain, Nausea, Vomiting, Diarrhea, Melena, Hematochezia Genitourinary: Denies: Dysuria, Hematuria, Frequency Musculoskeletal: Denies: Back pain, Extremity Pain Skin: Denies: Rash, Wounds Neurological: Denies: Headache, Weakness, Numbness Physical Exam Vital Signs/Narrative: Vital Signs Temp Pulse Resp BP Pulse Ox 06/25/19 13:51 97 06/25/19 13:12 97.9 F 90 17 130/68 H 99 General: Well nourished, Well developed, No Acute Distress Head: Normocephalic, Atraumatic Eyes: Perrl, EOMI ENT: Moist mucous membranes, No rhinorrhea Neck: Supple, Nontender Cardiovascular: Regular rate, Regular rhythm, No murmurs Respiratory: No distress, CTA bilaterally, Chest nontender Abdomen: Soft, Nontender, Nondistended, Normal bowel sounds Back: Nontender, Normal Inspection Extremities: Nontender, No edema Skin: Normal color, No rash, - - Is a healing lesion to her left lower leg Neurological: Alert, Oriented x3, Cranial nerves II-XII grossly intact, Normal Strength, Normal Sensation Psychological: Normal affect, Normal Mood Diagnostic/Tx/Re-eval - Medical Decision Making Patient's EKG shows a sinus rhythm rate of about 87 intervals are normal no signs of injury she does have 1 PVC on this EKG The patient's screening labs chest x-ray are all unremarkable see those reports during her stay here the PVC is stopped there is none on the monitor, discussed all the above with her discussed the differential she is concerned that the pericardial window that she had a few years ago could be contributed to the above, she wants to go home is comfortable with discharge for outpatient management, she does have an appointment to see a cardiothoracic surgeon in the [facility] soon, she is comfortable discharge home at this time, she will follow-up with her outpatient providers I have referred her to [facility] if she cannot obtain cardiology follow-up in the [facility] and she will return for change in symptoms Home stable Impression final palpitations due to occasional PVCs resolved ED Disposition - Plan for ED Patient: Diagnosis: Palpitations, PVC (premature ventricular contraction) Instructions: Premature Ventricular Contractions, Palpitations Referrals: Tarah Dubon DO [Primary Care Provider] - Yazan Miller MD [STAFF PHYSICIAN] -
[2019-06-25 15:22] VITALS: PULSE 93; RESP 17; O2SAT 92
[2019-06-25 16:01] VITALS: BP 118/62; PULSE 84; RESP 16; O2SAT 96
== END 2019-06-25 16:02 | disposition home or self-care (01) ==
LOC: ED 13:49
PROVIDERS: Emergency Provider Emergency Medicine; Family Provider Family Medicine; PCP Family Medicine
DX: I49.3 Ventricular premature depolarization (principal)
CPT/HCPCS: 71045; 80048; 83735; 84484; 85025; 93005; 96360; 96361; 99284; J7040; A4216

== ENCOUNTER 2019-07-20 10:45 | Outpatient (RCR) | payer MEDICAID, SELFPAY ==
[2019-06-09 12:52] VITALS: BMI 53.9
[2019-06-21 00:39] VITALS: BP 133/83; PULSE 111; RESP 18; TEMP 37.1
[2019-06-22 12:34] VITALS: BP 153/86; PULSE 90; RESP 18; TEMP 36.2; BMI 53.9
--- NOTE | 2019-06-22 12:56 | PCM.HBO.PN ---
History of Present Illness Date of Service: 06/22/19 Presenting Chief Complaint: Nonhealing fasciotomy ulcers left lateral leg and left medial leg. NERIS VICKERS is a 48 year old currently undergoing hyperbaric oxygen therapy for Nonhealing fasciotomy ulcers of left lateral and medial leg with failed/compromised skin graft surgery April 10, 2019. Progress: Neris presents today for hyperbaric oxygen therapy as the 16th treatment session of 28 planned sessions. Tolerance of hyperbaric oxygen therapy: Hyperbaric oxygen therapy was administered today as per our facility's protocol. The patient tolerated hyperbaric oxygen therapy without complaint or complication. Upon emergence from the hyperbaric oxygen chamber, the patient had vital signs it remained stable. She was discharged in good condition. 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) Allergies/Adverse Reactions: Allergies adhesive tape Adverse Reaction (Verified 05/18/19 09:38) Rash Home Medications: Ambulatory Orders Medication Instructions Recorded Aripiprazole [Abilify] 2 mg PO DAILY 07/10/18 Metoprolol Succinate [Toprol Xl] 25 mg PO DAILY 07/10/18 Omeprazole 40 mg PO DAILY 07/10/18 Prednisone 4 mg PO UD 07/10/18 Ranitidine [Zantac] 150 mg PO QHS 07/10/18 Bupropion HCl [Bupropion Xl] 300 mg PO DAILY 08/25/18 Ropinirole HCl [Ropinirole ER] 2 mg PO QHS 08/25/18 Warfarin [Coumadin] 5 mg PO DAILY #0 12/20/18 Folic Acid 1 mg PO DAILY 01/23/19 Baclofen [Lioresal] 10 mg PO Q6H PRN PRN 03/27/19 Ferrous Sulfate 325 mg PO DAILY 03/27/19 Lactobacillus Acidophilus 1 ea PO BID 03/27/19 [Acidophilus] Venlafaxine XR [Effexor Xr] 225 mg PO DAILY 04/10/19 traZODone [Desyrel] 150 mg PO QHS 09/20/19 Diazepam [Valium] 5 mg PO 4X/DAY PRN PRN #30 tab 04/11/19 Famotidine [Pepcid] 20 mg PO HS tab 04/11/19 amoxicillin 875 mg-potassium 1 tab PO Q12H #28 tab 05/14/19 clavulanate 125 mg tablet levofloxacin 500 mg tablet 500 mg PO DAILY #14 tab 05/14/19 HYDROmorphone tablet [Dilaudid] 2 mg PO Q6H PRN PRN 05/18/19 Prednisone 8 mg PO UD 05/18/19 Maternal Family History: Heart Disease Paternal Family History: - - She does not know her father Smoking Status: Never smoker Physical Exam Vital Signs Temp Pulse Resp BP 97.1 F L 90 18 153/86 H 06/22/19 12:34 06/22/19 12:34 06/22/19 12:34 06/22/19 12:34 General: Alert, Oriented x3, Cooperative, No apparent distress HEENT: Atraumatic, TM's Clear Lungs: Clear to auscultation, Normal air movement Cardiovascular: Regular rate, Regular Rhythm Psych/Mental Status: Normal Affect, Appropriate, Alert and oriented to time, place, person, mood and affect Assessment/Plan The patient appears to be tolerating hyperbaric oxygen therapy well, which will be continued as per the patient's medical plan.
--- NOTE | 2019-06-22 13:43 | PN.PCM_ITS ---
(1) Ulcer of left lower extremity Status: Chronic Code(s): L97.929 - Non-pressure chronic ulcer of unspecified part of left lower leg with unspecified severity (2) Ulcer of left lower extremity with fat layer exposed Status: Chronic Code(s): L97.922 - Non-pressure chronic ulcer of unspecified part of left lower leg with fat layer exposed (3) Other complications of skin graft (allograft) (autograft) Status: Chronic Code(s): T86.828 - Other complications of skin graft (allograft) (autograft) (4) Skin graft disorder Status: Chronic Code(s): T86.829 - Unspecified complication of skin graft (allograft) (autograft) (5) Immunocompromised state due to drug therapy Status: Chronic Code(s): Z79.899 - Other [facility] (current) drug therapy Comment: on Methotrexate for Lupus Type of Wound Date of Service: 06/22/19 Chief Complaint: Nonhealing fasciotomy ulcers left lateral leg and left medial leg. History of Wound: Surgery 04/10/19 - 1. Surgical preparation left medial leg with excisional debridement nonhealing fasciotomy ulcer and placement of AmnioFill placental connective tissue powder and STSG reconstruction from left flank (48 cm2). 2. Surgical preparation left lateral leg with excisional debridement nonhealing fasciotomy ulcer and placement of AmnioFill placental connective tissue powder and STSG reconstruction from left flank (20 cm2). Wound care - Ekaterina to the medial lower leg. Collagen hydrogel to left lateral lower leg. Left abdomen donor site is healed. Operative culture - Enterobacter cloacae thus far. Preoperatively her culture showed Acinetobacter baumannii, Enterobacter cloacae, Streptococcus agalactiae, and Anaerobic cocci. She was treated perioperatively with Levaquin and Augmentin. Prealbumin from 04/11/19 was 18.8. Encourage nutritional supplementation with protein to help the healing process. She is experiencing compromise of her left medial skin graft with approx 20% compromise. She has been approved for HBOT and is tolerating it well. She denies fever. Progress of Wound: Improvement in skin graft compromise left lateral leg and left medial leg and is healed on the ulcers of the left flank. - Physical Exam Vital Signs Temp Pulse Resp BP 97.1 F L 90 18 153/86 H 06/22/19 12:34 06/22/19 12:34 06/22/19 12:34 06/22/19 12:34 General: Alert, Oriented x3 HEENT: Atraumatic Oral: Moist Mucosa Lungs: Normal air movement Cardiovascular: Regular rate Abdomen: Soft, Obese Extremities: Capillary Refill Less than 3 Seconds, Edema, Peripheral Pulses Normal Skin: Ulcer/ Wound - left lateral lower leg ulcer and left medial lower leg ulcer Wound Measurements and Assessment WC - Nurse 1 - General Ulcer Measurement Start: 06/22/19 12:34 Freq: Status: Active Protocol: Activity Type Activity Date Activity User E-Sign Co-Sign Detail Recorded Client Recorded Date Recorded By Document 06/22/19 12:34 MW [id number] 06/22/19 12:39 MW 06/22/19 12:34 Wound Center Nurse 1 [Ulcer Assessment] 4-posterior abdomen -Combined with other wound No -Current Size (cm) - Length 0.1 -Current Size (cm) - Width 0.1 -Current Size (cm) - Depth 0.1 -Total Square Cm 0.01 -Date of Last Picture (Recall this 06/22/19 field) -Photo Taken Yes -Epithelialization Large 67-100% -Tunneling No -Undermining/Tunneling No -Circular Undermining No -Exudate Amt None Present -Texture (Kisha-wound Skin Appearance) No Abnormality, Assessed -Moisture (Kisha-wound Skin Appearance No Abnormality, ) Assessed -Color (Kisha-wound Skin Appearance) No Abnormality, Assessed -Temperature (Kisha-wound Skin No Abnormality Appearance) (Pt Warm) -Tenderness on Palpation (Kisha-wound Yes Skin Appearance) -Foul Odor after Cleansing No 3-Anterior abdomen -Combined with other wound No -Current Size (cm) - Length 0.1 -Current Size (cm) - Width 0.1 -Current Size (cm) - Depth 0.1 -Total Square Cm 0.01 -Date of Last Picture (Recall this 06/22/19 field) -Photo Taken Yes -Epithelialization Large 67-100% -Tunneling No -Undermining/Tunneling No -Circular Undermining No -Exudate Amt None Present -Texture (Kisha-wound Skin Appearance) No Abnormality, Assessed -Moisture (Kisha-wound Skin Appearance No Abnormality, ) Assessed -Color (Kisha-wound Skin Appearance) No Abnormality, Assessed -Temperature (Kisha-wound Skin No Abnormality Appearance) (Pt Warm) -Tenderness on Palpation (Kisha-wound No Skin Appearance) #2 LLL Lateral -Combined with other wound No -Current Size (cm) - Length 6.5 -Current Size (cm) - Width 0.7 -Current Size (cm) - Depth 0.1 -Total Square Cm 4.55 -Photo Taken No -Epithelialization Small 1-33% -Tunneling No -Undermining/Tunneling No -Circular Undermining No -Exudate Amt Small -Exudate Type Serosanguineous -Wound Margin Flat & Intact -Granulation Amt Small (1-33%) -Granulation Quality [place] -Slough/Fibrin Yes -Necrosis Amt Large (67-100%) -Necrotic Tissue Type Adherent Slough -Structure Exposed N/A -Texture (Kisha-wound Skin Appearance) Assessed, Localized Edema ,Scarring -Moisture (Kisha-wound Skin Appearance Assessed,Dry/ ) Scaly -Color (Kisha-wound Skin Appearance) No Abnormality, Assessed -Temperature (Kisha-wound Skin No Abnormality Appearance) (Pt Warm) -Tenderness on Palpation (Kisha-wound No Skin Appearance) -Ulcer Cleansing Rinsed/ Irrigated with Saline -Foul Odor after Cleansing No -Anesthetic Used 4% Lidocaine Solution #1 LLL medial -Combined with other wound No -Current Size (cm) - Length 13.6 -Current Size (cm) - Width 2.5 -Current Size (cm) - Depth 0.1 -Total Square Cm 34.00 -Photo Taken No -Epithelialization Small 1-33% -Tunneling No -Undermining/Tunneling No -Circular Undermining No -Exudate Amt Small -Exudate Type Serosanguineous -Wound Margin Flat & Intact -Granulation Amt Medium (34-66%) -Granulation Quality [place] -Slough/Fibrin Yes -Necrosis Amt Medium (34-66%) -Necrotic Tissue Type Adherent Slough -Structure Exposed N/A -Texture (Kisha-wound Skin Appearance) Assessed, Localized Edema ,Scarring -Moisture (Kisha-wound Skin Appearance Assessed,Dry/ ) Scaly -Color (Kisha-wound Skin Appearance) No Abnormality, Assessed, Ecchymosis -Tenderness on Palpation (Kisha-wound Yes Skin Appearance) -Ulcer Cleansing Rinsed/ Irrigated with Saline -Foul Odor after Cleansing No -Anesthetic Used 4% Lidocaine Solution WC - Nurse 2 - General Ulcer CM Notes Start: 06/22/19 12:34 Freq: Status: Active Protocol: Activity Type Activity Date Activity User E-Sign Co-Sign Detail Recorded Client Recorded Date Recorded By Document 06/22/19 12:57 MARITA [id number] 06/22/19 13:00 MARITA 06/22/19 12:57 Wound Center Nurse 2 [Procedure/Treatment] 4-posterior abdomen -Correct Patient No -Correct Side, Site, Position No -Correct Procedure No -Procedure Performed No -Post Debridement Size (cm) - Length 0 -Post Debridement Size (cm) - Width 0 -Post Debridement Size (cm) - Depth 0 -Total Square Cm 0 -Wound/Ulcer Outcome Healed- Epithelialized 3-Anterior abdomen -Correct Patient No -Correct Side, Site, Position No -Correct Procedure No -Procedure Performed No -Post Debridement Size (cm) - Length 0 -Post Debridement Size (cm) - Width 0 -Post Debridement Size (cm) - Depth 0 -Total Square Cm 0 -Wound/Ulcer Outcome Healed- Epithelialized #2 LLL Lateral -Time 12:57 -Correct Patient Yes -Correct Side, Site, Position Yes -Correct Procedure Yes -Procedure Performed Yes -Type of Procedure Debridement -Clinical Debridement Subcutaneous -Post Debridement Size (cm) - Length 6.7 -Post Debridement Size (cm) - Width 0.6 -Post Debridement Size (cm) - Depth 0.1 -Total Square Cm 4.02 -Wound/Ulcer Outcome Not Healed -Ulcer Cleansing Rinsed/ Irrigated with Saline -Foul Odor after Cleansing No -Bioengineered Tissue No -Bleeding Controlled with Pressure -Offloading No -Treatment Response Procedure Tolerated Well #1 LLL medial -Time 12:58 -Correct Patient Yes -Correct Side, Site, Position Yes -Correct Procedure Yes -Procedure Performed Yes -Type of Procedure Debridement -Clinical Debridement Subcutaneous -Post Debridement Size (cm) - Length 13 -Post Debridement Size (cm) - Width 1.8 -Post Debridement Size (cm) - Depth 0.4 -Total Square Cm 23.4 -Wound/Ulcer Outcome Not Healed -Ulcer Cleansing Rinsed/ Irrigated with Saline -Foul Odor after Cleansing No -Bioengineered Tissue No -Bleeding Controlled with Pressure -Offloading No -Treatment Response Procedure Tolerated Well [See Physician Procedure note for Specifics] Pain Scale: 0-10 Numeric [Pain] -Is Patient Pain Free? Yes Musculoskeletal: No Muscle Wasting Neurological: Neuro grossly intact Psych/Mental Status: Normal Affect, Appropriate Debridement Note Post-Debridement Measurements/Treatment WC - Nurse 2 - General Ulcer CM Notes Start: 06/22/19 12:34 Freq: Status: Active Protocol: Activity Type Activity Date Activity User E-Sign Co-Sign Detail Recorded Client Recorded Date Recorded By Document 06/22/19 12:57 MARITA [id number] 06/22/19 13:00 MARITA 06/22/19 12:57 Wound Center Nurse 2 4-posterior abdomen -Correct Patient No -Correct Side, Site, Position No -Correct Procedure No -Procedure Performed No -Post Debridement Size (cm) - Length 0 -Post Debridement Size (cm) - Width 0 -Post Debridement Size (cm) - Depth 0 -Total Square Cm 0 -Wound/Ulcer Outcome Healed- Epithelialized 3-Anterior abdomen -Correct Patient No -Correct Side, Site, Position No -Correct Procedure No -Procedure Performed No -Post Debridement Size (cm) - Length 0 -Post Debridement Size (cm) - Width 0 -Post Debridement Size (cm) - Depth 0 -Total Square Cm 0 -Wound/Ulcer Outcome Healed- Epithelialized #2 LLL Lateral -Time 12:57 -Correct Patient Yes -Correct Side, Site, Position Yes -Correct Procedure Yes -Procedure Performed Yes -Type of Procedure Debridement -Clinical Debridement Subcutaneous -Post Debridement Size (cm) - Length 6.7 -Post Debridement Size (cm) - Width 0.6 -Post Debridement Size (cm) - Depth 0.1 -Total Square Cm 4.02 -Wound/Ulcer Outcome Not Healed -Ulcer Cleansing Rinsed/ Irrigated with Saline -Foul Odor after Cleansing No -Bioengineered Tissue No -Bleeding Controlled with Pressure -Offloading No -Treatment Response Procedure Tolerated Well #1 LLL medial -Time 12:58 -Correct Patient Yes -Correct Side, Site, Position Yes -Correct Procedure Yes -Procedure Performed Yes -Type of Procedure Debridement -Clinical Debridement Subcutaneous -Post Debridement Size (cm) - Length 13 -Post Debridement Size (cm) - Width 1.8 -Post Debridement Size (cm) - Depth 0.4 -Total Square Cm 23.4 -Wound/Ulcer Outcome Not Healed -Ulcer Cleansing Rinsed/ Irrigated with Saline -Foul Odor after Cleansing No -Bioengineered Tissue No -Bleeding Controlled with Pressure -Offloading No -Treatment Response Procedure Tolerated Well Pain Scale: 0-10 Numeric Is Patient Pain Free? Yes Wound debrided: lateral lower leg Laterality: Left Type of Debridement: Excisional debridement Anesthesia Used: 5% Lidocaine Gel Depth: Down to and including healthy tissue, in the subcutaneous layer Percentage of wound debrided: 100 Instrument Used: 3mm curette Tissue Removed: subcutaneous tissue and slough Severity: Limited To Skin Breakdown Amount of bleeding with debridement: Mild Bleeding Controlled with: Pressure Patient tolerated procedure well - Additional Wound Wound debrided: medial lower leg ulcer Laterality: Left Type of Debridement: Excisional debridement Depth: in the subcutaneous layer Percentage of wound debrided: 100 Instrument Used: 7mm curette Tissue Removed: subcutaneous tissue and slough Severity: Fat Layer Exposed Amount of bleeding with debridement: Mild Bleeding Controlled with: Pressure Patient tolerated procedure: Patient tolerated procedure well Assessment/Plan Assessment: 1. Nonhealing fasciotomy ulcer left medial leg. 2. Nonhealing fasciotomy ulcer left lateral leg. 3. Hematoma with compartment syndrome left leg s/p fasciotomies. 4. half-way use of. 5. Lupus. 6. Immunocompromised state due to high risk medication, Methotrexate, for Lupus. Plan: The medial skin graft is showing compromise on about 30% of the graft. The lateral skin graft has a small amount of compromise, about 20 %. She needs to continue to wear compression due to the non pitting edema in her legs bilaterally. She is tolerating HBOT treatment well. Left donor site incision has a couple opened areas. She is has a history of claustrophobia, which the Valium 5 mg to take 30 minutes before she starts HBOT is helping with it. Her last chest xray was 01/2019. Operative culture shows Enterobacter cloacae thus far. She was treated perioperatively with Levaquin and Augmentin. Wound care is Ekaterina dressing daily to the medial leg opened area and Collagen hydrogel to the left lateral lower leg with MENDEZ wrap for compression. Donor site on left flank is healed. Will apply for Epifix for the left medial left ulcer. This ulcer would benefit from an advanced wound healing product. Elevate left leg when sitting. Followup one week. Code Visit [id number]
[2019-06-22 16:18] VITALS: BP 127/74; BP 140/70; PULSE 93; PULSE 95; RESP 16; TEMP 36.3; TEMP 37.2
[2019-06-24 11:31] VITALS: BP 133/76; BP 151/94; PULSE 106; PULSE 83; RESP 16; RESP 18; TEMP 36.1; TEMP 37
--- NOTE | 2019-06-24 11:44 | HBO.PN.PCM_ITS ---
History of Present Illness Date of Service: 06/24/19 Presenting Chief Complaint: Nonhealing fasciotomy ulcers left lateral leg and left medial leg. NERIS VICKERS is a 48 year old currently undergoing hyperbaric oxygen therapy for Nonhealing fasciotomy ulcers of left lateral and medial leg with failed/compromised skin graft surgery April 10, 2019. Progress: Neris presents today for hyperbaric oxygen therapy as the 17th treatment session of 28 planned sessions. Tolerance of hyperbaric oxygen therapy: Hyperbaric oxygen therapy was administered today as per our facility's protocol. The patient tolerated hyperbaric oxygen therapy without complaint or complication. Upon emergence from the hyperbaric oxygen chamber, the patient had vital signs it remained stable. She was discharged in good condition. 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 (Chronic) on Methotrexate for Lupus senior living current use of anticoagulant (Chronic) Allergies/Adverse Reactions: Allergies adhesive tape Adverse Reaction (Verified 05/18/19 09:38) Rash Home Medications: Ambulatory Orders Medication Instructions Recorded Aripiprazole [Abilify] 2 mg PO DAILY 07/10/18 Metoprolol Succinate [Toprol Xl] 25 mg PO DAILY 07/10/18 Omeprazole 40 mg PO DAILY 07/10/18 Prednisone 4 mg PO UD 07/10/18 Ranitidine [Zantac] 150 mg PO QHS 07/10/18 Bupropion HCl [Bupropion Xl] 300 mg PO DAILY 08/25/18 Ropinirole HCl [Ropinirole ER] 2 mg PO QHS 08/25/18 Warfarin [Coumadin] 5 mg PO DAILY #0 12/20/18 Folic Acid 1 mg PO DAILY 01/23/19 Baclofen [Lioresal] 10 mg PO Q6H PRN PRN 03/27/19 Ferrous Sulfate 325 mg PO DAILY 03/27/19 Lactobacillus Acidophilus 1 ea PO BID 03/27/19 [Acidophilus] Venlafaxine XR [Effexor Xr] 225 mg PO DAILY 04/10/19 traZODone [Desyrel] 150 mg PO QHS 09/20/19 Diazepam [Valium] 5 mg PO 4X/DAY PRN PRN #30 tab 04/11/19 Famotidine [Pepcid] 20 mg PO HS tab 04/11/19 amoxicillin 875 mg-potassium 1 tab PO Q12H #28 tab 05/14/19 clavulanate 125 mg tablet levofloxacin 500 mg tablet 500 mg PO DAILY #14 tab 05/14/19 HYDROmorphone tablet [Dilaudid] 2 mg PO Q6H PRN PRN 05/18/19 Prednisone 8 mg PO UD 05/18/19 Maternal Family History: Heart Disease Paternal Family History: - - She does not know her father Smoking Status: Never smoker Physical Exam Vital Signs Temp Pulse Resp BP 98.6 F 106 H 18 133/76 H 06/24/19 11:31 06/24/19 11:31 06/24/19 11:31 06/24/19 11:31 General: Alert, Oriented x3, Cooperative, No apparent distress HEENT: Atraumatic, TM's Clear Lungs: Clear to auscultation, Normal air movement Cardiovascular: Regular rate, Regular Rhythm Psych/Mental Status: Normal Affect, Appropriate, Alert and oriented to time, place, person, mood and affect Assessment/Plan The patient appears to be tolerating hyperbaric oxygen therapy well, which will be continued as per the patient's medical plan.
[2019-06-25 12:19] VITALS: BP 128/69; BP 147/82; PULSE 100; PULSE 90; RESP 18; TEMP 36.1; TEMP 36.5
--- NOTE | 2019-06-25 12:29 | HBO.PN.PCM_ITS ---
History of Present Illness Date of Service: 06/25/19 Presenting Chief Complaint: Nonhealing fasciotomy ulcers left lateral leg and left medial leg. NERIS VICKERS is a 48 year old currently undergoing hyperbaric oxygen therapy for Nonhealing fasciotomy ulcers of left lateral and medial leg with failed/compromised skin graft surgery April 10, 2019. Progress: Neris presents today for hyperbaric oxygen therapy as the 18th treatment session of 28 planned sessions. Tolerance of hyperbaric oxygen therapy: Hyperbaric oxygen therapy was administered today as per our facility's protocol. The patient was placed in the hyperbaric oxygen chamber at precisely 11:00 AM. She reached target depth at 11:09 AM. At 1218pm she reported symptoms of palpitations and light chest heaviness. The chamber was decompressed and the patient was taken out of the chamber At 12:26 PM. See documented vital signs. Secondary physical exam was performed, a slightly irregular heartbeat was noted during auscultation. Heart rate was not rapid. She continues to have sensations of palpitations and slight shortness of breath, as well as slight chest heaviness. Patient was advised to be evaluated in the emergency department. She conveyed understanding and was agreeable with plan. 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 (Chronic) on Methotrexate for Lupus senior care current use of anticoagulant (Chronic) Allergies/Adverse Reactions: Allergies adhesive tape Adverse Reaction (Verified 05/18/19 09:38) Rash Home Medications: Ambulatory Orders Medication Instructions Recorded Aripiprazole [Abilify] 2 mg PO DAILY 07/10/18 Metoprolol Succinate [Toprol Xl] 25 mg PO DAILY 07/10/18 Omeprazole 40 mg PO DAILY 07/10/18 Prednisone 4 mg PO UD 07/10/18 Ranitidine [Zantac] 150 mg PO QHS 07/10/18 Bupropion HCl [Bupropion Xl] 300 mg PO DAILY 08/25/18 Ropinirole HCl [Ropinirole ER] 2 mg PO QHS 08/25/18 Warfarin [Coumadin] 5 mg PO DAILY #0 12/20/18 Folic Acid 1 mg PO DAILY 01/23/19 Baclofen [Lioresal] 10 mg PO Q6H PRN PRN 03/27/19 Ferrous Sulfate 325 mg PO DAILY 03/27/19 Lactobacillus Acidophilus 1 ea PO BID 03/27/19 [Acidophilus] Venlafaxine XR [Effexor Xr] 225 mg PO DAILY 04/10/19 traZODone [Desyrel] 150 mg PO QHS 04/10/19 Diazepam [Valium] 5 mg PO 4X/DAY PRN PRN #30 tab 04/11/19 Famotidine [Pepcid] 20 mg PO HS tab 04/11/19 amoxicillin 875 mg-potassium 1 tab PO Q12H #28 tab 05/14/19 clavulanate 125 mg tablet levofloxacin 500 mg tablet 500 mg PO DAILY #14 tab 05/14/19 HYDROmorphone tablet [Dilaudid] 2 mg PO Q6H PRN PRN 05/18/19 Prednisone 8 mg PO UD 05/18/19 Maternal Family History: Heart Disease Paternal Family History: - - She does not know her father Smoking Status: Never smoker Physical Exam Vital Signs Temp Pulse Resp BP 97.7 F L 100 18 147/82 H 06/25/19 12:19 06/25/19 12:19 06/25/19 12:19 06/25/19 12:19 General: Alert, Oriented x3, Cooperative, No apparent distress HEENT: Atraumatic, TM's Clear Lungs: Clear to auscultation, Normal air movement Cardiovascular: Regular rate - Prior to treatment, Regular Rhythm - Prior to treatment Psych/Mental Status: Normal Affect, Appropriate, Alert and oriented to time, place, person, mood and affect Assessment/Plan Unable to complete desired treatment time today. Patient will be evaluated in the emergency department. Further hyperbaric oxygen session therapies will be determined once patient has been evaluated and released from the emergency department.
[2019-07-13 10:19] VITALS: BP 133/76; PULSE 97; RESP 16; TEMP 36.4; BMI 53.9
--- NOTE | 2019-07-13 14:15 | PCM.WC.PN ---
(1) Ulcer of left lower extremity Status: Chronic Code(s): L97.929 - Non-pressure chronic ulcer of unspecified part of left lower leg with unspecified severity (2) Ulcer of left lower extremity with fat layer exposed Status: Chronic Code(s): L97.922 - Non-pressure chronic ulcer of unspecified part of left lower leg with fat layer exposed (3) Other complications of skin graft (allograft) (autograft) Status: Chronic Code(s): T86.828 - Other complications of skin graft (allograft) (autograft) (4) Skin graft disorder Status: Chronic Code(s): T86.829 - Unspecified complication of skin graft (allograft) (autograft) (5) Immunocompromised state due to drug therapy Status: Chronic Code(s): Z79.899 - Other retirement (current) drug therapy Comment: on Methotrexate for Lupus Type of Wound Date of Service: 07/13/19 Chief Complaint: Nonhealing fasciotomy ulcers left lateral leg and left medial leg. History of Wound: Surgery 04/10/19 - 1. Surgical preparation left medial leg with excisional debridement nonhealing fasciotomy ulcer and placement of AmnioFill placental connective tissue powder and STSG reconstruction from left flank (48 cm2). 2. Surgical preparation left lateral leg with excisional debridement nonhealing fasciotomy ulcer and placement of AmnioFill placental connective tissue powder and STSG reconstruction from left flank (20 cm2). Wound care - Epifix #1 applied to left medial lower leg. Left lateral lower leg is healed. Tubigrip for compression. Operative culture - Enterobacter cloacae thus far. Preoperatively her culture showed Acinetobacter baumannii, Enterobacter cloacae, Streptococcus agalactiae, and Anaerobic cocci. She was treated perioperatively with Levaquin and Augmentin. Prealbumin from 04/11/19 was 18.8. Encourage nutritional supplementation with protein to help the healing process. She is experiencing compromise of her left medial skin graft with approx 20% compromise. She has been approved for HBOT and she completed visits then quit due to her anxiety. She denies fever. Progress of Wound: Improved. - Physical Exam Vital Signs Temp Pulse Resp BP 97.6 F L 97 16 133/76 H 07/13/19 10:19 07/13/19 10:19 07/13/19 10:07/13/19 10:19 General: Alert, Oriented x3, Cooperative HEENT: Atraumatic Oral: Moist Mucosa Lungs: Normal air movement Cardiovascular: Regular rate Extremities: Edema Skin: Ulcer/ Wound - left medial ulcer stable, left lateral is considered healed today. Musculoskeletal: No Muscle Wasting Neurological: Neuro grossly intact Psych/Mental Status: Normal Affect, Appropriate Debridement Note Post-Debridement Measurements/Treatment WC - Nurse 2 - General Ulcer CM Notes Start: 06/22/19 12:34 Freq: Status: Active Protocol: Activity Type Activity Date Activity User E-Sign Co-Sign Detail Recorded Client Recorded Date Recorded By Document 06/22/19 12:57 [id number] 06/22/19 13:00 Document 07/13/19 10:48 [id number] 07/13/19 10:51 06/22/19 07/13/19 12:57 10:48 Wound Center Nurse 2 4-posterior abdomen -Correct Patient No -Correct Side, Site, Position No -Correct Procedure No -Procedure Performed No -Post Debridement Size (cm) - Length 0 -Post Debridement Size (cm) - Width 0 -Post Debridement Size (cm) - Depth 0 -Total Square Cm 0 -Wound/Ulcer Outcome Healed- Epithelialized 3-Anterior abdomen -Correct Patient No -Correct Side, Site, Position No -Correct Procedure No -Procedure Performed No -Post Debridement Size (cm) - Length 0 -Post Debridement Size (cm) - Width 0 -Post Debridement Size (cm) - Depth 0 -Total Square Cm 0 -Wound/Ulcer Outcome Healed- Epithelialized #2 LLL Lateral -Time 12:57 10:48 -Correct Patient Yes No -Correct Side, Site, Position Yes No -Correct Procedure Yes No -Procedure Performed Yes No -Type of Procedure Debridement -Clinical Debridement Subcutaneous -Post Debridement Size (cm) - Length 6.7 0.1 -Post Debridement Size (cm) - Width 0.6 0.1 -Post Debridement Size (cm) - Depth 0.1 0.1 -Total Square Cm 4.02 0.01 -Wound/Ulcer Outcome Not Healed Not Healed -Ulcer Cleansing Rinsed/ Rinsed/ Irrigated with Irrigated with Saline Saline -Foul Odor after Cleansing No No -Bioengineered Tissue No No -Bleeding Controlled with Pressure -Offloading No -Treatment Response Procedure Tolerated Well #1 LLL medial -Time 12:58 10:49 -Correct Patient Yes Yes -Correct Side, Site, Position Yes Yes -Correct Procedure Yes Yes -Procedure Performed Yes Yes -Type of Procedure Debridement Debridement -Clinical Debridement Subcutaneous Subcutaneous -Post Debridement Size (cm) - Length 13 11.5 -Post Debridement Size (cm) - Width 1.8 1.5 -Post Debridement Size (cm) - Depth 0.4 0.3 -Total Square Cm 23.4 17.25 -Wound/Ulcer Outcome Not Healed Not Healed -Ulcer Cleansing Rinsed/ Rinsed/ Irrigated with Irrigated with Saline Saline -Foul Odor after Cleansing No No -Bioengineered Tissue No Yes -Type of bioengineered Tissue EPIFIX -Expiration Date 12/21/23 -Product Lot Number [id number] -Percent Used 100 -Saline Lot Number [id number] -Bleeding Controlled with Pressure Pressure -Offloading No No -Treatment Response Procedure Procedure Tolerated Well Tolerated Well Pain Scale: 0-10 Numeric Is Patient Pain Free? Yes Yes Wound debrided: medial ulcer Laterality: Left Type of Debridement: Excisional debridement Anesthesia Used: 5% Lidocaine Gel Depth: Down to and including healthy tissue, in the subcutaneous layer Percentage of wound debrided: 100 Instrument Used: 5mm curette Tissue Removed: Subcutaneous tissue and slough Severity: Fat Layer Exposed Amount of bleeding with debridement: Mild Bleeding Controlled with: Compression and gauze Patient tolerated procedure well Assessment/Plan Assessment: 1. Nonhealing fasciotomy ulcer left medial leg. 2. Nonhealing fasciotomy ulcer left lateral leg. 3. Hematoma with compartment syndrome left leg s/p fasciotomies. 4. penitentiary use of. 5. Lupus. 6. Immunocompromised state due to high risk medication, Methotrexate, for Lupus. Plan: She completed 18/ HBOT treatments. She no longer wishes to continue. Wound care: Epifix #1. 100% of the product was used on the left medial ulcer. Will consider the left lateral ulcer healed today. Wear a tubigrip for compression. Operative culture shows Enterobacter cloacae thus far. She was treated perioperatively with Levaquin and Augmentin. Elevate left leg when sitting. She has missed multiple visits over the past month. Instructed her of the importance of coming to every appointment will help her heal quicker, especially with an advanced wound healing product on like epifix. Followup one week. Code Visit [id number]: [id number] Skin sub graft trnk/arm/leg
[2019-07-20 11:06] VITALS: BP 132/90; PULSE 107; RESP 16; TEMP 36.4; BMI 53.9
--- NOTE | 2019-07-20 16:09 | PCM.WC.PN ---
(1) Ulcer of left lower extremity Status: Chronic Code(s): L97.929 - Non-pressure chronic ulcer of unspecified part of left lower leg with unspecified severity (2) Ulcer of left lower extremity with fat layer exposed Status: Chronic Code(s): L97.922 - Non-pressure chronic ulcer of unspecified part of left lower leg with fat layer exposed (3) Other complications of skin graft (allograft) (autograft) Status: Chronic Code(s): T86.828 - Other complications of skin graft (allograft) (autograft) (4) Skin graft disorder Status: Chronic Code(s): T86.829 - Unspecified complication of skin graft (allograft) (autograft) (5) Immunocompromised state due to drug therapy Status: Chronic Code(s): Z79.899 - Other fci (current) drug therapy Comment: on Methotrexate for Lupus Type of Wound Date of Service: 07/20/19 Chief Complaint: Nonhealing fasciotomy ulcers left lateral leg and left medial leg. History of Wound: Surgery 04/10/19 - 1. Surgical preparation left medial leg with excisional debridement nonhealing fasciotomy ulcer and placement of AmnioFill placental connective tissue powder and STSG reconstruction from left flank (48 cm2). 2. Surgical preparation left lateral leg with excisional debridement nonhealing fasciotomy ulcer and placement of AmnioFill placental connective tissue powder and STSG reconstruction from left flank (20 cm2). Wound care - Epifix #2 applied to left medial lower leg. Left lateral lower leg is healed. Tubigrip for compression. Operative culture - Enterobacter cloacae thus far. Preoperatively her culture showed Acinetobacter baumannii, Enterobacter cloacae, Streptococcus agalactiae, and Anaerobic cocci. She was treated perioperatively with Levaquin and Augmentin. Prealbumin from 04/11/19 was 18.8. Encourage nutritional supplementation with protein to help the healing process. She is experiencing compromise of her left medial skin graft with approx 20% compromise. She has been approved for HBOT and she completed visits then quit due to her anxiety. She denies fever. Progress of Wound: Improved. - Physical Exam Vital Signs Temp Pulse Resp BP 97.5 F L 107 H 16 132/90 H 07/20/19 11:06 07/20/19 11:06 07/20/19 11:06 07/20/19 11:06 General: Alert, Oriented x3, Cooperative HEENT: Atraumatic Oral: Moist Mucosa Lungs: Normal air movement Cardiovascular: Regular rate Abdomen: Obese Extremities: Capillary Refill Less than 3 Seconds, Edema, Peripheral Pulses Normal Skin: Ulcer/ Wound - left medial leg ulcer Wound Measurements and Assessment WC - Nurse 1 - General Ulcer Measurement Start: 06/22/19 12:34 Freq: Status: Active Protocol: Activity Type Activity Date Activity User E-Sign Co-Sign Detail Recorded Client Recorded Date Recorded By Document 07/20/19 11:06 [facility] [id number] 07/20/19 11:12 [facility] 07/20/19 11:06 Wound Center Nurse 1 [Ulcer Assessment] #2 LLL Lateral -Combined with other wound No -Current Size (cm) - Length 0.1 -Current Size (cm) - Width 0.1 -Current Size (cm) - Depth 0.1 -Total Square Cm 0.01 -Photo Taken No -Epithelialization Large 67-100% -Tunneling No -Undermining/Tunneling No -Circular Undermining No -Exudate Amt None Present -Slough/Fibrin Yes -Necrosis Amt Small (1-33%) -Necrotic Tissue Type Eschar -Texture (Kisha-wound Skin Appearance) Assessed, Scarring -Moisture (Kisha-wound Skin Appearance Assessed,Dry/ ) Scaly -Color (Kisha-wound Skin Appearance) Assessed -Temperature (Kisha-wound Skin No Abnormality Appearance) (Pt Warm) -Tenderness on Palpation (Kisha-wound No Skin Appearance) -Ulcer Cleansing Rinsed/ Irrigated with Saline -Foul Odor after Cleansing No #1 LLL medial -Combined with other wound No -Current Size (cm) - Length 6.9 -Current Size (cm) - Width 1.7 -Current Size (cm) - Depth 0.1 -Total Square Cm 11.73 -Photo Taken No -Epithelialization Small 1-33% -Tunneling No -Undermining/Tunneling No -Circular Undermining No -Exudate Amt Small -Exudate Type Serosanguineous -Wound Margin Distinct, Outline Attached -Granulation Amt Small (1-33%) -Granulation Quality Red -Slough/Fibrin Yes -Necrosis Amt Large (67-100%) -Necrotic Tissue Type Adherent Slough -Texture (Kisha-wound Skin Appearance) Assessed, Scarring -Moisture (Kisha-wound Skin Appearance Assessed,Dry/ ) Scaly -Color (Kisha-wound Skin Appearance) Assessed -Temperature (Kisha-wound Skin No Abnormality Appearance) (Pt Warm) -Tenderness on Palpation (Kisha-wound Yes Skin Appearance) -Ulcer Cleansing Rinsed/ Irrigated with Saline -Foul Odor after Cleansing No -Anesthetic Used 5% Lidocaine Gel [Edema Assessment] -Lower Limb Edema Present Yes -Left Calf (cm) 45.7 -Left Ankle (cm) 23.6 WC - Nurse 2 - General Ulcer CM Notes Start: 06/22/19 12:34 Freq: Status: Active Protocol: Activity Type Activity Date Activity User E-Sign Co-Sign Detail Recorded Client Recorded Date Recorded By Document 07/20/19 11:41 [id number] 07/20/19 11:51 07/20/19 11:41 Wound Center Nurse 2 [Procedure/Treatment] #2 LLL Lateral -Time 11:42 -Correct Patient No -Correct Side, Site, Position No -Correct Procedure No -Procedure Performed No -Wound/Ulcer Outcome Not Healed #1 LLL medial -Time 11:42 -Correct Patient Yes -Correct Side, Site, Position Yes -Correct Procedure Yes -Procedure Performed Yes -Type of Procedure Debridement -Clinical Debridement Subcutaneous -Post Debridement Size (cm) - Length 5.8 -Post Debridement Size (cm) - Width 1.7 -Post Debridement Size (cm) - Depth 0.3 -Total Square Cm 9.86 -Wound/Ulcer Outcome Not Healed -Ulcer Cleansing Rinsed/ Irrigated with Saline -Foul Odor after Cleansing No -Bioengineered Tissue Yes -Type of bioengineered Tissue EPIFIX -Expiration Date 03/22/24 -Product Lot Number [id number] -Percent Used 100 -Saline Lot Number [id number] -Bleeding Controlled with Pressure -Offloading No -Treatment Response Procedure Tolerated Well [See Physician Procedure note for Specifics] Pain Scale: 0-10 Numeric [Pain] -Is Patient Pain Free? Yes Musculoskeletal: No Muscle Wasting Neurological: Neuro grossly intact Psych/Mental Status: Normal Affect, Appropriate Debridement Note Post-Debridement Measurements/Treatment - Nurse 2 - General Ulcer CM Notes Start: 06/22/19 12:34 Freq: Status: Active Protocol: Activity Type Activity Date Activity User E-Sign Co-Sign Detail Recorded Client Recorded Date Recorded By Document 06/22/19 12:57 [id number] 06/22/19 13:00 Document 07/13/19 10:48 [id number] 07/13/19 10:51 Document 07/20/19 11:41 [id number] 07/20/19 11:51 06/22/19 07/13/19 07/20/19 12:57 10:48 11:41 Wound Center Nurse 2 4-posterior abdomen -Correct Patient No -Correct Side, Site, Position No -Correct Procedure No -Procedure Performed No -Post Debridement Size (cm) - Length 0 -Post Debridement Size (cm) - Width 0 -Post Debridement Size (cm) - Depth 0 -Total Square Cm 0 -Wound/Ulcer Outcome Healed- Epithelialized 3-Anterior abdomen -Correct Patient No -Correct Side, Site, Position No -Correct Procedure No -Procedure Performed No -Post Debridement Size (cm) - Length 0 -Post Debridement Size (cm) - Width 0 -Post Debridement Size (cm) - Depth 0 -Total Square Cm 0 -Wound/Ulcer Outcome Healed- Epithelialized #2 LLL Lateral -Time 12:57 10:48 11:42 -Correct Patient Yes No No -Correct Side, Site, Position Yes No No -Correct Procedure Yes No No -Procedure Performed Yes No No -Type of Procedure Debridement -Clinical Debridement Subcutaneous -Post Debridement Size (cm) - Length 6.7 0.1 -Post Debridement Size (cm) - Width 0.6 0.1 -Post Debridement Size (cm) - Depth 0.1 0.1 -Total Square Cm 4.02 0.01 -Wound/Ulcer Outcome Not Healed Not Healed Not Healed -Ulcer Cleansing Rinsed/ Rinsed/ Irrigated with Irrigated with Saline Saline -Foul Odor after Cleansing No No -Bioengineered Tissue No No -Bleeding Controlled with Pressure -Offloading No -Treatment Response Procedure Tolerated Well #1 LLL medial -Time 12:58 10:49 11:42 -Correct Patient Yes Yes Yes -Correct Side, Site, Position Yes Yes Yes -Correct Procedure Yes Yes Yes -Procedure Performed Yes Yes Yes -Type of Procedure Debridement Debridement Debridement -Clinical Debridement Subcutaneous Subcutaneous Subcutaneous -Post Debridement Size (cm) - Length 13 11.5 5.8 -Post Debridement Size (cm) - Width 1.8 1.5 1.7 -Post Debridement Size (cm) - Depth 0.4 0.3 0.3 -Total Square Cm 23.4 17.25 9.86 -Wound/Ulcer Outcome Not Healed Not Healed Not Healed -Ulcer Cleansing Rinsed/ Rinsed/ Rinsed/ Irrigated with Irrigated with Irrigated with Saline Saline Saline -Foul Odor after Cleansing No No No -Bioengineered Tissue No Yes Yes -Type of bioengineered Tissue EPIFIX EPIFIX -Expiration Date 12/21/23 03/22/24 -Product Lot Number [id number] -Percent Used 100 100 -Saline Lot Number [id number] -Bleeding Controlled with Pressure Pressure Pressure -Offloading No No No -Treatment Response Procedure Procedure Procedure Tolerated Well Tolerated Well Tolerated Well Pain Scale: 0-10 Numeric Is Patient Pain Free? Yes Yes Yes Wound debrided: medial leg ulcer Laterality: Left Type of Debridement: Excisional debridement Anesthesia Used: 5% Lidocaine Gel Depth: Down to and including healthy tissue, in the subcutaneous layer Percentage of wound debrided: 100 Instrument Used: 5mm curette Tissue Removed: subcutaneous tissue and slough Severity: Fat Layer Exposed Amount of bleeding with debridement: Mild Bleeding Controlled with: Pressure Patient tolerated procedure well Assessment/Plan Assessment: 1. Nonhealing fasciotomy ulcer left medial leg. 2. Nonhealing fasciotomy ulcer left lateral leg. 3. Hematoma with compartment syndrome left leg s/p fasciotomies. 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 5. Lupus. 6. Immunocompromised state due to high risk medication, Methotrexate, for Lupus. Plan: She completed 18/ HBOT treatments. She no longer wishes to continue. Wound care: Epifix #2. 100% of the product was used on the left medial ulcer. She developed a sensitivity to the steri-strips that where placed to keep the wound veil in place. Will use adaptic touch as wound veil this week with no steri strips. Left lateral ulcer remains healed. Wear a tubigrip for compression. Operative culture shows Enterobacter cloacae thus far. She was treated perioperatively with Levaquin and Augmentin. Elevate left leg when sitting. She has missed multiple visits over the past month. Instructed her of the importance of coming to every appointment will help her heal quicker, especially with an advanced wound healing product on like epifix. Followup one week. Code Visit 150xxx-152xx: [id number] Skin sub graft trnk/arm/leg
== END 2019-07-21 23:59 ==
LOC: WC 10:45
PROVIDERS: Family Provider Family Medicine; PCP Family Medicine; Referring Provider Surgery; Visit Provider Surgery
DX: T86.828 Other complications of skin graft (allograft) (autograft) (principal); Y83.8 Other surgical procedures as the cause of abnormal reaction of the patient, or of later complication, without mention of misadventure at the time of the procedure; M32.9 Systemic lupus erythematosus, unspecified; T79.A22S Traumatic compartment syndrome of left lower extremity, sequela; X58.XXXS Exposure to other specified factors, sequela
CPT/HCPCS: 11042; 11045; 15271; 99183; Q4186; G0277

== ENCOUNTER 2019-07-25 18:56 | Emergency (ER) | payer MEDICAID, SELFPAY ==
[2019-07-22 00:33] VITALS: BMI 54.6
[2019-07-25 18:58] VITALS: BP 148/88; PULSE 111; RESP 17; TEMP 36.8; O2SAT 98; BMI 52.0
--- NOTE | 2019-07-25 19:13 | ED.DCSUM_ITS ---
- ER Visit Summary Date of Service: 07/25/19 Chief Complaint: Right axillary abscess History of Present Illness: The patient is a 48 F who prior compartment syndrome and rheumatoid arthritis. She is on Coumadin. States the last 5 days she has had swelling and pain in her right armpit area. No prior history. No fever. Physical Examination: Middle-aged female no acute distress vital signs stable afebrile. H EENT exam unremarkable. Neck nontender no lymphadenopathy. Lungs clear to auscultation bilaterally. Heart regular rhythm no murmur rate about 100. Abdomen soft. Nontender. Nondistended. Normal bowel sounds. No peritoneal signs. Patient moving all 4 extremities. No edema. Her right axilla and armpit area has an area of tenderness consistent with an abscess. It is firm. There is no fluctuance. There is no cellulitis. No drainage or discharge. No redness. No bruising. Otherwise skin is unremarkable. Neurologically she is awake and alert. Test Results: None Emergency Department Course and Treatment: Procedure note: Right axillary abscess incision and drainage. Topical let applied to the area. Locally anesthetized with lidocaine with epinephrine due to her being on Coumadin. Inci tres made with 11 blade scalpel. No pus. Also prior to that I probed with a 19-gauge needle and found no pus pockets. I think this is all indurated infected tissue but not pus. Nor is any significant hematoma. I discussed with the patient care of this. Treatment Plan: Keflex 500 4 times daily for 10 days. Warm compresses to the area. Follow-up with her primary care physician or her wound care doctor. Have her Coumadin level rechecked in 1 week. She understands that this may get worse if that happens it still may need to be I&D. At this time there is no pus pocket. Follow-up with her primary care physician. Disposition: Discharge Impression: Right axillary abscess Incision and drainage by ER This note was generated with [employer] dictation software. It may contain incorrect words, spelling, and punctuation that were not noted in review of the chart prior to signing ED Disposition - Plan for ED Patient: Disposition: Home or Assisted Living Instructions: ABSCESS, Incision and Drainage Prescriptions: Cephalexin [Keflex] 500 mg PO Q6 #40 cap Prescription Printed Hydrocodone/Acetaminophen [[place] 7.5-325 Tablet] 1 ea PO Q4H PRN PRN #20 tab PRN Reason: Pain Or Fever Prescription Printed Referrals: Tarah Dubon DO [Primary Care Provider] - 1 Week Additional Instructions: Tylenol for pain. Warm soaks hot shower to the area. Keflex 500 mg 4 times a day till gone. Follow-up with your doctor to ensure this is improving. Return if worse. Have your Coumadin level rechecked in 1 week sometimes antibiotics can affect yo ur Coumadin level either making it too high or too low.
--- NOTE | 2019-07-25 19:15 | ED.DEP ---
ED Disposition - Plan for ED Patient: Disposition: Home or Assisted Living Instructions: ABSCESS, Incision and Drainage Prescriptions: Cephalexin [Keflex] 500 mg PO Q6 #40 cap Prescription Printed Hydrocodone/Acetaminophen [[place] 7.5-325 Tablet] 1 ea PO Q4H PRN PRN #20 tab PRN Reason: Pain Or Fever Prescription Printed Referrals: Tarah Dubon DO [Primary Care Provider] - 1 Week Additional Instructions: Tylenol for pain. Warm soaks hot shower to the area. Keflex 500 mg 4 times a day till gone. Follow-up with your doctor to ensure this is improving. Return if worse. Have your Coumadin level rechecked in 1 week sometimes antibiotics can affect your Coumadin level either making it too high or too low.
[2019-07-25] MEDS: Lidocaine/Epi/Tetracaine 50 ML 1 APPLIC TOPICAL (19:30)
[2019-07-25] MEDS: Cephalexin 250 MG Capsule 500 MG PO (19:46)
== END 2019-07-25 20:27 | disposition home or self-care (01) ==
LOC: ED 19:34
PROVIDERS: Emergency Provider Emergency Medicine; Family Provider Family Medicine; PCP Family Medicine
DX: L02.411 Cutaneous abscess of right axilla (principal); M06.9 Rheumatoid arthritis, unspecified; R19.7 Diarrhea, unspecified; Z79.01 Long term (current) use of anticoagulants; Z79.52 Long term (current) use of systemic steroids; Z79.899 Other long term (current) drug therapy
CPT/HCPCS: 10060; 99282

== ENCOUNTER 2019-08-10 14:30 | Outpatient (RCR) | payer MEDICAID, SELFPAY ==
[2019-07-22 00:33] VITALS: BP 132/90; PULSE 107; RESP 16; TEMP 36.4; BMI 54.6
[2019-07-27 13:34] VITALS: BP 145/70; PULSE 111; RESP 16; TEMP 36.3; BMI 52.0
--- NOTE | 2019-07-27 15:54 | PCM.WC.PN ---
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 History of Wound: Surgery 04/10/19 - 1. Surgical preparation left medial leg with excisional debridement nonhealing fasciotomy ulcer and placement of AmnioFill placental connective tissue powder and STSG reconstruction from left flank (48 cm2). 2. Surgical preparation left lateral leg with excisional debridement nonhealing fasciotomy ulcer and placement of AmnioFill placental connective tissue powder and STSG reconstruction from left flank (20 cm2). Wound care - Epifix #3 applied to left medial lower leg, 100% of the product was used. Covered by wound veil. Left lateral lower leg has a small area that reopened, will apply collagen hydrogel. Will place 3m double layer wrap for compression. Operative culture - Enterobacter cloacae thus far. Preoperatively her culture showed Acinetobacter baumannii, Enterobacter cloacae, Streptococcus agalactiae, and Anaerobic cocci. She was treated perioperatively with Levaquin and Augmentin. Prealbumin from 04/11/19 was 18.8. Encourage nutritional supplementation with protein to help the healing process. She is experiencing compromise of her left medial skin graft with approx 20% compromise. She has been approved for HBOT and she completed visits then quit due to her anxiety. She denies fever. Progress of Wound: Improved. - Physical Exam Vital Signs Temp Pulse Resp BP 97.4 F L 111 H 16 145/70 H 07/27/19 13:34 07/27/19 13:34 07/27/19 13:34 07/27/19 13:34 General: Alert, Oriented x3, Cooperative HEENT: Atraumatic Oral: Moist Mucosa Lungs: Normal air movement Cardiovascular: Regular rate Extremities: Capillary Refill Less than 3 Seconds, Peripheral Pulses Normal Skin: Ulcer/ Wound - Left medial leg ulcer. Left lateral leg ulcer with a small area that reopened. Wound Measurements and Assessment WC - Nurse 1 - General Ulcer Measurement Start: 07/27/19 13:33 Freq: Status: Active Protocol: Activity Type Activity Date Activity User E-Sign Co-Sign Detail Recorded Client Recorded Date Recorded By Document 07/27/19 13:34 [facility] [id number] 07/27/19 13:38 [facility] 07/27/19 13:34 Wound Center Nurse 1 [Ulcer Assessment] #1 LLL medial -Combined with other wound No -Current Size (cm) - Length 7 -Current Size (cm) - Width 1.5 -Current Size (cm) - Depth 0.2 -Total Square Cm 10.5 -Photo Taken No -Epithelialization None Present -Tunneling No -Undermining/Tunneling No -Circular Undermining No -Exudate Amt Small -Exudate Type Serosanguineous -Wound Margin Distinct, Outline Attached -Granulation Amt Small (1-33%) -Granulation Quality Red -Slough/Fibrin Yes -Necrosis Amt Large (67-100%) -Necrotic Tissue Type Adherent Slough -Texture (Kisha-wound Skin Appearance) Assessed, Scarring -Moisture (Kisha-wound Skin Appearance Assessed,Dry/ ) Scaly -Color (Kisha-wound Skin Appearance) Assessed -Temperature (Kisha-wound Skin No Abnormality Appearance) (Pt Warm) -Tenderness on Palpation (Kisha-wound No Skin Appearance) -Ulcer Cleansing Rinsed/ Irrigated with Saline -Foul Odor after Cleansing No -Anesthetic Used 5% Lidocaine Gel [Edema Assessment] -Lower Limb Edema Present Yes -Left Calf (cm) 44.5 -Left Ankle (cm) 22.7 WC - Nurse 2 - General Ulcer CM Notes Start: 07/27/19 13:33 Freq: Status: Active Protocol: Activity Type Activity Date Activity User E-Sign Co-Sign Detail Recorded Client Recorded Date Recorded By Document 07/27/19 14:30 [id number] 07/27/19 14:34 07/27/19 14:30 Wound Center Nurse 2 [Procedure/Treatment] #1 LLL medial -Time 14:31 -Correct Patient Yes -Correct Side, Site, Position Yes -Correct Procedure Yes -Procedure Performed Yes -Type of Procedure Debridement -Clinical Debridement Subcutaneous -Post Debridement Size (cm) - Length 6.8 -Post Debridement Size (cm) - Width 1.4 -Post Debridement Size (cm) - Depth 0.3 -Total Square Cm 9.52 -Wound/Ulcer Outcome Not Healed -Ulcer Cleansing Rinsed/ Irrigated with Saline -Foul Odor after Cleansing No -Bioengineered Tissue Yes -Type of bioengineered Tissue EPIFIX -Expiration Date 10/21/23 -Product Lot Number [id number] -Percent Used 100 -Saline Lot Number [id number] -Bleeding Controlled with Pressure -Offloading No -Treatment Response Procedure Tolerated Well [See Physician Procedure note for Specifics] Pain Scale: 0-10 Numeric [Pain] -Is Patient Pain Free? Yes Musculoskeletal: No Tenderness to Palpation of Joints or Extremities Neurological: Neuro grossly intact Psych/Mental Status: Normal Affect, Appropriate Debridement Note Post-Debridement Measurements/Treatment WC - Nurse 2 - General Ulcer CM Notes Start: 07/27/19 13:33 Freq: Status: Active Protocol: Activity Type Activity Date Activity User E-Sign Co-Sign Detail Recorded Client Recorded Date Recorded By Document 07/27/19 14:30 [id number] 07/27/19 14:34 [facility] 07/27/19 14:30 Wound Center Nurse 2 #1 LLL medial -Time 14:31 -Correct Patient Yes -Correct Side, Site, Position Yes -Correct Procedure Yes -Procedure Performed Yes -Type of Procedure Debridement -Clinical Debridement Subcutaneous -Post Debridement Size (cm) - Length 6.8 -Post Debridement Size (cm) - Width 1.4 -Post Debridement Size (cm) - Depth 0.3 -Total Square Cm 9.52 -Wound/Ulcer Outcome Not Healed -Ulcer Cleansing Rinsed/ Irrigated with Saline -Foul Odor after Cleansing No -Bioengineered Tissue Yes -Type of bioengineered Tissue EPIFIX -Expiration Date 10/21/23 -Product Lot Number [id number] -Percent Used 100 -Saline Lot Number [id number] -Bleeding Controlled with Pressure -Offloading No -Treatment Response Procedure Tolerated Well Pain Scale: 0-10 Numeric Is Patient Pain Free? Yes Wound debrided: medial leg Laterality: Left Type of Debridement: Excisional debridement Anesthesia Used: 5% Lidocaine Gel Depth: Down to and including healthy tissue, in the subcutaneous layer Percentage of wound debrided: 100 Instrument Used: 5mm curette Tissue Removed: subcutaneous tissue and slough Severity: Fat Layer Exposed Amount of bleeding with debridement: Mild Bleeding Controlled with: Pressure, Compression and gauze Patient tolerated procedure well - Additional Wound Wound debrided: lateral leg ulcer Laterality: Left Type of Debridement: Excisional debridement Anesthesia Used: 5% Lidocaine Gel Depth: Down to and including healthy tissue, in the subcutaneous layer Percentage of wound debrided: 100 Instrument Used: 3mm curette Tissue Removed: subcutaneous tissue and slough Severity: Fat Layer Exposed Amount of bleeding with debridement: Mild Bleeding Controlled with: Pressure Patient tolerated procedure: Patient tolerated procedure well Assessment/Plan Active Problems Ulcer of left lower extremity with fat layer exposed (Chronic) 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) Assessment: 1. Nonhealing fasciotomy ulcer left medial leg. 2. Nonhealing fasciotomy ulcer left lateral leg. 3. Hematoma with compartment syndrome left leg s/p fasciotomies. 4. skilled nursing use of. 5. Lupus. 6. Immunocompromised state due to high risk medication, Methotrexate, for Lupus. Plan: She completed HBOT treatments. She no longer wishes to continue. Wound care: Epifix #13 applied today, 100% of the product was used on the left medial ulcer. The left lateral ulcer has a small area that has reopened, will apply collagen hydrogel to the area. Will apply 3M double layer for compression. Operative culture shows Enterobacter cloacae thus far. She was treated perioperatively with Levaquin and Augmentin. Elevate left leg when sitting. She has missed multiple visits over the past month. Instructed her of the importance of coming to every appointment will help her heal quicker, especially with an advanced wound healing product on like epifix. Followup one week. Code Visit 150xxx-152xx: [id number] Skin sub graft trnk/arm/leg
[2019-08-03 09:56] VITALS: BP 134/56; PULSE 111; RESP 18; TEMP 36.3; BMI 52.0
--- NOTE | 2019-08-03 15:17 | PN.PCM_ITS ---
(1) Ulcer of left lower extremity with fat layer exposed Status: Chronic Current Visit: Yes Code(s): L97.922 - Non-pressure chronic ulcer of unspecified part of left lower leg with fat layer exposed (2) Skin graft disorder Status: Chronic Current Visit: Yes Code(s): T86.829 - Unspecified complication of skin graft (allograft) (autograft) (3) Other complications of skin graft (allograft) (autograft) Status: Chronic Current Visit: Yes Code(s): T86.828 - Other complications of skin graft (allograft) (autograft) Type of Wound Date of Service: 08/03/19 Chief Complaint: Nonhealing fasciotomy ulcers left lateral leg and left medial leg. History of Wound: Surgery 04/10/19 - 1. Surgical preparation left medial leg with excisional debridement nonhealing fasciotomy ulcer and placement of AmnioFill placental connective tissue powder and STSG reconstruction from left flank (48 cm2). 2. Surgical preparation left lateral leg with excisional debridement nonhealing fasciotomy ulcer and placement of AmnioFill placental connective tissue powder and STSG reconstruction from left flank (20 cm2). Wound care - Epifix #4 applied to left medial lower leg, 100% of the product was used. Covered by wound veil. Left lateral lower leg appears healed today. She did not tolerate the 3M double layer wrap. Will do double layer tubigrip for compression. Operative culture - Enterobacter cloacae thus far. Preoperatively her culture showed Acinetobacter baumannii, Enterobacter cloacae, Streptococcus agalactiae, and Anaerobic cocci. She was treated perioperatively with Levaquin and Augmentin. Prealbumin from 04/11/19 was 18.8. Encourage nutritional supplementation with protein to help the healing process. She is experiencing compromise of her left medial skin graft with approx 20% compromise. She has been approved for HBOT and she completed visits then quit due to her anxiety. She denies fever. Progress of Wound: Improved. - Physical Exam Vital Signs Temp Pulse Resp BP 97.4 F L 111 H 18 134/56 H 08/03/19 09:56 08/03/19 09:56 08/03/19 09:56 08/03/19 09:56 General: Alert, Oriented x3 HEENT: Atraumatic Oral: Moist Mucosa Lungs: Normal air movement Cardiovascular: Regular rate Abdomen: Obese Extremities: Capillary Refill Less than 3 Seconds, Edema, Peripheral Pulses Normal Skin: Ulcer/ Wound - left medial lower leg ulcer improved and left lateral lower leg is currently healed Wound Measurements and Assessment WC - Nurse 1 - General Ulcer Measurement Start: 07/27/19 13:33 Freq: Status: Active Protocol: Activity Type Activity Date Activity User E-Sign Co-Sign Detail Recorded Client Recorded Date Recorded By Document 08/03/19 09:56 YARED [id number] 08/03/19 10:04 DL 08/03/19 09:56 Wound Center Nurse 1 [Ulcer Assessment] #1 LLL medial -Current Size (cm) - Length 6 -Current Size (cm) - Width 1 -Current Size (cm) - Depth 0.2 -Total Square Cm 6 -Photo Taken No -Exudate Amt Small -Exudate Type Serosanguineous -Wound Margin Thickened -Granulation Amt Medium (34-66%) -Granulation Quality Red -Necrosis Amt Medium (34-66%) -Necrotic Tissue Type Adherent Slough -Structure Exposed N/A -Texture (Kisha-wound Skin Appearance) Excoriation, Scarring -Moisture (Kisha-wound Skin Appearance Dry/Scaly ) -Color (Kisha-wound Skin Appearance) Rubor -Temperature (Kisha-wound Skin No Abnormality Appearance) (Pt Warm) -Tenderness on Palpation (Kisha-wound No Skin Appearance) -Foul Odor after Cleansing No -Anesthetic Used 4% Lidocaine Solution [Edema Assessment] -Left Calf (cm) 44.5 -Left Ankle (cm) 23 WC - Nurse 2 - General Ulcer CM Notes Start: 07/27/19 13:33 Freq: Status: Active Protocol: Activity Type Activity Date Activity User E-Sign Co-Sign Detail Recorded Client Recorded Date Recorded By Document 08/03/19 10:20 MARITA [id number] 08/03/19 10:26 JF 08/03/19 10:20 Wound Center Nurse 2 [Procedure/Treatment] #1 LLL medial -Time 10:25 -Correct Patient Yes -Correct Side, Site, Position Yes -Correct Procedure Yes -Procedure Performed Yes -Type of Procedure Debridement -Clinical Debridement Subcutaneous -Post Debridement Size (cm) - Length 6.1 -Post Debridement Size (cm) - Width 1.2 -Post Debridement Size (cm) - Depth 0.3 -Total Square Cm 7.32 -Wound/Ulcer Outcome Not Healed -Ulcer Cleansing Rinsed/ Irrigated with Saline -Foul Odor after Cleansing No -Bioengineered Tissue Yes -Type of bioengineered Tissue EPIFIX -Expiration Date 04/21/24 -Product Lot Number [id number] -Percent Used 100 -Saline Lot Number [id number] -Bleeding Controlled with Pressure -Offloading No -Treatment Response Procedure Tolerated Well [See Physician Procedure note for Specifics] Pain Scale: 0-10 Numeric [Pain] -Is Patient Pain Free? Yes Musculoskeletal: No Muscle Wasting Psych/Mental Status: Normal Affect, Appropriate Debridement Note Post-Debridement Measurements/Treatment WC - Nurse 2 - General Ulcer CM Notes Start: 07/27/19 13:33 Freq: Status: Active Protocol: Activity Type Activity Date Activity User E-Sign Co-Sign Detail Recorded Client Recorded Date Recorded By Document 07/27/19 14:30 [id number] 07/27/19 14:34 Document 08/03/19 10:20 [id number] 08/03/19 10:26 07/27/19 08/03/19 14:30 10:20 Wound Center Nurse 2 #1 LLL medial -Time 14:31 10:25 -Correct Patient Yes Yes -Correct Side, Site, Position Yes Yes -Correct Procedure Yes Yes -Procedure Performed Yes Yes -Type of Procedure Debridement Debridement -Clinical Debridement Subcutaneous Subcutaneous -Post Debridement Size (cm) - Length 6.8 6.1 -Post Debridement Size (cm) - Width 1.4 1.2 -Post Debridement Size (cm) - Depth 0.3 0.3 -Total Square Cm 9.52 7.32 -Wound/Ulcer Outcome Not Healed Not Healed -Ulcer Cleansing Rinsed/ Rinsed/ Irrigated with Irrigated with Saline Saline -Foul Odor after Cleansing No No -Bioengineered Tissue Yes Yes -Type of bioengineered Tissue EPIFIX EPIFIX -Expiration Date 10/21/23 04/21/24 -Product Lot Number [id number] -Percent Used 100 100 -Saline Lot Number [id number] -Bleeding Controlled with Pressure Pressure -Offloading No No -Treatment Response Procedure Procedure Tolerated Well Tolerated Well Pain Scale: 0-10 Numeric Is Patient Pain Free? Yes Yes Wound debrided: medial leg Laterality: Left Type of Debridement: Excisional debridement Anesthesia Used: 5% Lidocaine Gel Depth: Down to and including healthy tissue, in the subcutaneous layer Percentage of wound debrided: 100 Instrument Used: 3mm curette Tissue Removed: subcutaneous tissue and slough Severity: Fat Layer Exposed Amount of bleeding with debridement: Mild Bleeding Controlled with: Pressure Patient tolerated procedure well Assessment/Plan Active Problems Ulcer of left lower extremity with fat layer exposed (Chronic) 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) Assessment: 1. Nonhealing fasciotomy ulcer left medial leg. 2. Nonhealing fasciotomy ulcer left lateral leg. 3. Hematoma with compartment syndrome left leg s/p fasciotomies. 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 5. Lupus. 6. Immunocompromised state due to high risk medication, Methotrexate, for Lupus. Plan: She completed HBOT treatments. She no longer wishes to continue. Wound care: Epifix #4 applied today, 100% of the product was used on the left medial ulcer, covered by wound veil. The left lateral ulcer has healed again. She did not tolerate the 3M double layer for compression for more than 4 hours, it caused her to have anxiety. Will do double layer tubigrip for compression. Operative culture shows Enterobacter cloacae thus far. She was treated perioperatively with Levaquin and Augmentin. Elevate left leg when sitting. She has missed multiple visits over the past month. Instructed her of the importance of coming to every appointment will help her heal quicker, especially with an advanced wound healing product on like epifix. Followup one week. Code Visit 111xxx-113xx: 11147 Jessica subq tissue 20 sq cm/<
[2019-08-10 14:40] VITALS: TEMP 36; BMI 52.0
--- NOTE | 2019-08-10 17:46 | PN.PCM_ITS ---
Type of Wound Date of Service: 08/10/19 Chief Complaint: Nonhealing fasciotomy ulcer left medial leg with skin graft compromise. History of Wound: Surgery 04/10/19 - 1. Surgical preparation left medial leg with excisional debridement nonhealing fasciotomy ulcer and placement of AmnioFill placental connective tissue powder and STSG reconstruction from left flank (48 cm2). 2. Surgical preparation left lateral leg with excisional debridement nonhealing fasciotomy ulcer and placement of AmnioFill placental connective tissue powder and STSG reconstruction from left flank (20 cm2). She developed some skin graft compromise that necessitated HBO treatments to try and salvage the grafts. The left lateral leg skin graft has healed. The left medial leg skin graft ulcer persists. Epifix placental connective tissue graft has been applied. She has had 4 applications thus far. She uses double layer tubigrip for compression. At the time of the surgery on 04/10/19, wound culture showed Enterobacter cloacae, Acinetobacter baumannii, Streptococcus agalactiae, and Anaerobic cocci. She was treated perioperatively with Levaquin and Augmentin. Prealbumin from 04/11/19 was 18.8. Encourage nutritional supplementation with protein to help the healing process. She underwent 18 out of 20 HBO treatments and stopped due to anxiety. Today she denies fever. Her appetite is ok. Progress of Wound: Improved. - Physical Exam Vital Signs Temp Pulse Resp BP 96.8 F L 111 H 18 134/56 H 08/10/19 14:40 08/03/19 09:56 08/03/19 09:56 08/03/19 09:56 Wound Measurements and Assessment WC - Nurse 1 - General Ulcer Measurement Start: 07/27/19 13:33 Freq: Status: Active Protocol: Activity Type Activity Date Activity User E-Sign Co-Sign Detail Recorded Client Recorded Date Recorded By Document 08/10/19 14:40 MW [id number] 08/10/19 14:49 MW 08/10/19 14:40 Wound Center Nurse 1 [Ulcer Assessment] #1 LLL medial -Combined with other wound No -Current Size (cm) - Length 5.0 -Current Size (cm) - Width 1.5 -Current Size (cm) - Depth 0.1 -Total Square Cm 7.50 -Photo Taken No -Tunneling No -Undermining/Tunneling No -Circular Undermining No -Exudate Amt Small -Exudate Type Serosanguineous -Wound Margin Flat & Intact -Granulation Amt None Present (0 %) -Granulation Quality Agency -Slough/Fibrin Yes -Necrosis Amt Large (67-100%) -Necrotic Tissue Type Adherent Slough -Structure Exposed N/A -Texture (Kisha-wound Skin Appearance) Assessed, Scarring -Moisture (Kisha-wound Skin Appearance Assessed,Dry/ ) Scaly -Color (Kisha-wound Skin Appearance) Assessed -Temperature (Kisha-wound Skin No Abnormality Appearance) (Pt Warm) -Ulcer Cleansing soap and water -Foul Odor after Cleansing No -Anesthetic Used 4% Lidocaine Solution [Edema Assessment] -Lower Limb Edema Present No WC - Nurse 2 - General Ulcer CM Notes Start: 07/27/19 13:33 Freq: Status: Active Protocol: Activity Type Activity Date Activity User E-Sign Co-Sign Detail Recorded Client Recorded Date Recorded By Document 08/10/19 15:01 MARITA [id number] 08/10/19 15:02 08/10/19 15:01 Wound Center Nurse 2 [Procedure/Treatment] #1 LLL medial -Time 15:02 -Correct Patient Yes -Correct Side, Site, Position Yes -Correct Procedure Yes -Procedure Performed Yes -Type of Procedure Debridement -Clinical Debridement Subcutaneous -Post Debridement Size (cm) - Length 5.7 -Post Debridement Size (cm) - Width 1.3 -Post Debridement Size (cm) - Depth 0.2 -Total Square Cm 7.41 -Wound/Ulcer Outcome Not Healed -Ulcer Cleansing Rinsed/ Irrigated with Saline -Foul Odor after Cleansing No -Bioengineered Tissue Yes -Type of bioengineered Tissue EPIFIX -Expiration Date 04/21/24 -Product Lot Number [id number] -Percent Used 100 -Saline Lot Number [id number] -Bleeding Controlled with Pressure -Offloading No -Treatment Response Procedure Tolerated Well [See Physician Procedure note for Specifics] Pain Scale: 0-10 Numeric [Pain] -Is Patient Pain Free? Yes Debridement Note Post-Debridement Measurements/Treatment WC - Nurse 2 - General Ulcer CM Notes Start: 07/27/19 13:33 Freq: Status: Active Protocol: Activity Type Activity Date Activity User E-Sign Co-Sign Detail Recorded Client Recorded Date Recorded By Document 07/27/19 14:30 [id number] 07/27/19 14:34 Document 08/03/19 10:20 [id number] 08/03/19 10:26 Document 08/10/19 15:01 [id number] 08/10/19 15:02 07/27/19 08/03/19 08/10/19 14:30 10:20 15:01 Wound Center Nurse 2 #1 LLL medial -Time 14:31 10:25 15:02 -Correct Patient Yes Yes Yes -Correct Side, Site, Position Yes Yes Yes -Correct Procedure Yes Yes Yes -Procedure Performed Yes Yes Yes -Type of Procedure Debridement Debridement Debridement -Clinical Debridement Subcutaneous Subcutaneous Subcutaneous -Post Debridement Size (cm) - Length 6.8 6.1 5.7 -Post Debridement Size (cm) - Width 1.4 1.2 1.3 -Post Debridement Size (cm) - Depth 0.3 0.3 0.2 -Total Square Cm 9.52 7.32 7.41 -Wound/Ulcer Outcome Not Healed Not Healed Not Healed -Ulcer Cleansing Rinsed/ Rinsed/ Rinsed/ Irrigated with Irrigated with Irrigated with Saline Saline Saline -Foul Odor after Cleansing No No No -Bioengineered Tissue Yes Yes Yes -Type of bioengineered Tissue EPIFIX EPIFIX EPIFIX #5 -Expiration Date 10/21/23 04/21/24 04/21/24 -Product Lot Number [id number] -Percent Used 100 100 100 -Saline Lot Number [id number] -Bleeding Controlled with Pressure Pressure Pressure -Offloading No No No -Treatment Response Procedure Procedure Procedure Tolerated Well Tolerated Well Tolerated Well Pain Scale: 0-10 Numeric Is Patient Pain Free? Yes Yes Yes Wound debrided: #1 Left lower medial leg. Laterality: Left Wound Grade/Stage: 2. Type of Debridement: Excisional debridement Anesthesia Used: 4% Lidocaine Solution Depth: Down to and including healthy tissue, in the subcutaneous layer Percentage of wound debrided: 100 Instrument Used: 5mm curette Tissue Removed: subcutaneous tissue. Severity: Fat Layer Exposed Amount of bleeding with debridement: Mild Bleeding Controlled with: Pressure Patient tolerated procedure well, - - Epifix placental connective tissue graft #5 was applied today. Expiration date - 04/21/24. Product Lot Number - [id number]. Percent used - 100%. Saline Lot Number - [id number]. Assessment/Plan Active Problems Ulcer of left lower extremity with fat layer exposed (Chronic) 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) Assessment: 1. Nonhealing fasciotomy ulcer left medial leg, skin grafted, with skin graft compromise. 2. Nonhealing fasciotomy ulcer left lateral leg, skin grafted, with skin graft compromise that has healed. 3. Hematoma with compartment syndrome left leg s/p fasciotomies. 4. detention use of anticoagulation. 5. Lupus. 6. Immunocompromised state due to high risk medication, Methotrexate, for Lupus. Plan: Epifix placental connective tissue graft #5 was applied today. 100% of the product was used on the left medial ulcer, covered by wound veil. A double layer tubigrip for compression was applied. The left lateral leg ulcer remains healed. Elevate left leg when sitting. Depending on the healing of the Epifix, another wound culture may be done to see if antibiotics are needed. At the time of the surgery on 04/10/19, wound culture showed Enterobacter cloacae, Acinetobacter baumannii, Streptococcus agalactiae, and Anaerobic cocci. She was treated perioperatively with Levaquin and Augmentin. Prealbumin from 04/11/19 was 18.8. Encourage nutritional supplementation wit protein to help the healing process. Followup one week. Code Visit 150xxx-152xx: [id number] Skin sub graft trnk/arm/leg - ICD-10 - L97.922, T86.828, T14.8xxS, T79.A22S, M32.9, Z79.01, Z79.899
[2019-08-17 11:16] VITALS: BP 131/83; PULSE 111; RESP 16; TEMP 36.4; BMI 52.0
--- NOTE | 2019-08-17 13:26 | PN.PCM_ITS ---
(1) Ulcer of left lower extremity with fat layer exposed Status: Chronic Code(s): L97.922 - Non-pressure chronic ulcer of unspecified part of left lower leg with fat layer exposed (2) Skin graft disorder Status: Chronic Code(s): T86.829 - Unspecified complication of skin graft (allograft) (autograft) (3) Other complications of skin graft (allograft) (autograft) Status: Chronic Code(s): T86.828 - Other complications of skin graft (allograft) (autograft) Type of Wound Date of Service: 08/17/19 Chief Complaint: Nonhealing fasciotomy ulcer left medial leg with skin graft compromise. History of Wound: Surgery 04/10/19 - 1. Surgical preparation left medial leg with excisional debridement nonhealing fasciotomy ulcer and placement of AmnioFill placental connective tissue powder and STSG reconstruction from left flank (48 cm2). 2. Surgical preparation left lateral leg with excisional d ebridement nonhealing fasciotomy ulcer and placement of AmnioFill placental connective tissue powder and STSG reconstruction from left flank (20 cm2). She developed some skin graft compromise that necessitated HBO treatments to try and salvage the grafts. The left lateral leg skin graft has healed. The left medial leg skin graft ulcer persists. Epifix placental connective tissue graft has been applied. The 6th application was placed today. She uses double layer tubigrip for compression. At the time of the surgery on 04/10/19, wound culture showed Enterobacter cloacae, Acinetobacter baumannii, Streptococcus agalactiae, and Anaerobic cocci. She was treated perioperatively with Levaquin and Augmentin. Prealbumin from 04/11/19 was 18.8. Encourage nutritional supplementation with protein to help the healing process. She underwent 18 out of 20 HBO treatments and stopped due to anxiety. Today she denies fever. Her appetite is ok. Progress of Wound: Improved. - Physical Exam Vital Signs Temp Pulse Resp BP 97.5 F L 111 H 16 131/83 H 08/17/19 11:16 08/17/19 11:16 08/17/19 11:16 08/17/19 11:16 General: Alert, Oriented x3 HEENT: Atraumatic Oral: Moist Mucosa Lungs: Normal air movement Cardiovascular: Regular rate Extremities: Capillary Refill Less than 3 Seconds, Edema Skin: Ulcer/ Wound - left medial leg ulcer. Wound Measurements and Assessment WC - Nurse 1 - General Ulcer Measurement Start: 07/27/19 13:33 Freq: Status: Active Protocol: Activity Type Activity Date Activity User E-Sign Co-Sign Detail Recorded Client Recorded Date Recorded By Document 08/17/19 11:16 [facility] [id number] 08/17/19 11:22 [facility] 08/17/19 11:16 Wound Center Nurse 1 [Ulcer Assessment] #1 LLL medial -Combined with other wound No -Current Size (cm) - Length 7.1 -Current Size (cm) - Width 1.5 -Current Size (cm) - Depth 0.2 -Total Square Cm 10.65 -Photo Taken No -Epithelialization None Present -Tunneling No -Undermining/Tunneling No -Circular Undermining No -Exudate Amt Small -Exudate Type Serosanguineous -Wound Margin Distinct, Outline Attached -Granulation Amt Small (1-33%) -Granulation Quality Red -Slough/Fibrin Yes -Necrosis Amt Large (67-100%) -Necrotic Tissue Type Adherent Slough -Texture (Kisha-wound Skin Appearance) Assessed, Scarring -Moisture (Kisha-wound Skin Appearance Assessed,Dry/ ) Scaly -Color (Kisha-wound Skin Appearance) Assessed, Erythema -Temperature (Kisha-wound Skin No Abnormality Appearance) (Pt Warm) -Tenderness on Palpation (Kisha-wound No Skin Appearance) -Ulcer Cleansing soapy water -Foul Odor after Cleansing No -Anesthetic Used 5% Lidocaine Gel [Edema Assessment] -Lower Limb Edema Present Yes -Left Calf (cm) 46.4 -Left Ankle (cm) 23.6 - Nurse 2 - General Ulcer CM Notes Start: 07/27/19 13:33 Freq: Status: Active Protocol: Activity Type Activity Date Activity User E-Sign Co-Sign Detail Recorded Client Recorded Date Recorded By Document 08/17/19 11:35 [id number] 08/17/19 11:43 08/17/19 11:35 Wound Center Nurse 2 [Procedure/Treatment] #1 LLL medial -Time 11:35 -Correct Patient Yes -Correct Side, Site, Position Yes -Correct Procedure Yes -Procedure Performed Yes -Type of Procedure Debridement -Clinical Debridement Subcutaneous -Post Debridement Size (cm) - Length 6.3 -Post Debridement Size (cm) - Width 1.3 -Post Debridement Size (cm) - Depth 0.2 -Total Square Cm 8.19 -Wound/Ulcer Outcome Not Healed -Ulcer Cleansing Rinsed/ Irrigated with Saline -Foul Odor after Cleansing No -Bioengineered Tissue Yes -Type of bioengineered Tissue EPIFIX -Expiration Date 03/22/24 -Product Lot Number [id number] -Percent Used 100 -Saline Lot Number [id number] -Bleeding Controlled with Pressure -Offloading No -Treatment Response Procedure Tolerated Well [See Physician Procedure note for Specifics] Pain Scale: 0-10 Numeric [Pain] -Is Patient Pain Free? Yes Musculoskeletal: No Muscle Wasting Neurological: Neuro grossly intact Psych/Mental Status: Normal Affect, Appropriate Debridement Note Post-Debridement Measurements/Treatment WC - Nurse 2 - General Ulcer CM Notes Start: 07/27/19 13:33 Freq: Status: Active Protocol: Activity Type Activity Date Activity User E-Sign Co-Sign Detail Recorded Client Recorded Date Recorded By Document 07/27/19 14:30 [id number] 07/27/19 14:34 Document 08/03/19 10:20 [id number] 08/03/19 10:26 Document 08/10/19 15:01 [id number] 08/10/19 15:02 Document 08/17/19 11:35 [id number] 08/17/19 11:43 07/27/19 08/03/19 08/10/19 14:30 10:20 15:01 Wound Center Nurse 2 #1 LLL medial -Time 14:31 10:25 15:02 -Correct Patient Yes Yes Yes -Correct Side, Site, Position Yes Yes Yes -Correct Procedure Yes Yes Yes -Procedure Performed Yes Yes Yes -Type of Procedure Debridement Debridement Debridement -Clinical Debridement Subcutaneous Subcutaneous Subcutaneous -Post Debridement Size (cm) - Length 6.8 6.1 5.7 -Post Debridement Size (cm) - Width 1.4 1.2 1.3 -Post Debridement Size (cm) - Depth 0.3 0.3 0.2 -Total Square Cm 9.52 7.32 7.41 -Wound/Ulcer Outcome Not Healed Not Healed Not Healed -Ulcer Cleansing Rinsed/ Rinsed/ Rinsed/ Irrigated with Irrigated with Irrigated with Saline Saline Saline -Foul Odor after Cleansing No No No -Bioengineered Tissue Yes Yes Yes -Type of bioengineered Tissue EPIFIX EPIFIX EPIFIX -Expiration Date 10/21/23 04/21/24 04/21/24 -Product Lot Number [id number] -Percent Used 100 100 100 -Saline Lot Number [id number] -Bleeding Controlled with Pressure Pressure Pressure -Offloading No No No -Treatment Response Procedure Procedure Procedure Tolerated Well Tolerated Well Tolerated Well Pain Scale: 0-10 Numeric Is Patient Pain Free? Yes Yes Yes 08/17/19 11:35 Wound Center Nurse 2 #1 LLL medial -Time 11:35 -Correct Patient Yes -Correct Side, Site, Position Yes -Correct Procedure Yes -Procedure Performed Yes -Type of Procedure Debridement -Clinical Debridement Subcutaneous -Post Debridement Size (cm) - Length 6.3 -Post Debridement Size (cm) - Width 1.3 -Post Debridement Size (cm) - Depth 0.2 -Total Square Cm 8.19 -Wound/Ulcer Outcome Not Healed -Ulcer Cleansing Rinsed/ Irrigated with Saline -Foul Odor after Cleansing No -Bioengineered Tissue Yes -Type of bioengineered Tissue EPIFIX -Expiration Date 03/22/24 -Product Lot Number [id number] -Percent Used 100 -Saline Lot Number [id number] -Bleeding Controlled with Pressure -Offloading No -Treatment Response Procedure Tolerated Well Pain Scale: 0-10 Numeric Is Patient Pain Free? Yes Wound debrided: medial leg ulcer Laterality: Left Type of Debridement: Excisional debridement Anesthesia Used: 5% Lidocaine Gel Depth: Down to and including healthy tissue, in the subcutaneous layer Percentage of wound debrided: 100 Instrument Used: 5mm curette Tissue Removed: Subcutaneous tissue and slough Severity: Fat Layer Exposed Amount of bleeding with debridement: Mild Bleeding Controlled with: Pressure Patient tolerated procedure well Assessment/Plan Assessment: 1. Nonhealing fasciotomy ulcer left medial leg, skin grafted, with skin graft compromise. 2. Nonhealing fasciotomy ulcer left lateral leg, skin grafted, with skin graft compromise that has healed. 3. Hematoma with com partment syndrome left leg s/p fasciotomies. 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 5. Lupus. 6. Immunocompromised state due to high risk medication, Methotrexate, for Lupus. Plan: Epifix placental connective tissue graft #6 was applied today. 100% of the product was used on the left medial ulcer, covered by wound veil. A double layer tubigrip for compression was applied. The left lateral leg ulcer remains healed. Elevate left leg when sitting. Encouraged stronger compression than double tubigrip but patient is hesitant because it increases her anxiety. Compromised on using double tubigrip and then adding MENDEZ wrap at bed time. Depending on the healing of the Epifix, another wound culture may be done to see if antibiotics are needed. At the time of the surgery on 04/10/19, wound culture showed Enterobacter cloacae, Acinetobacter baumannii, Streptococcus agalactiae, and Anaerobic cocci. She was treated perioperatively with Levaquin and Augmentin. Prealbumin from 04/11/19 was 18.8. Encourage nutritional supplementation wit protein to help the healing process. Followup one week. Code Visit 150xxx-152xx: 97114 Skin sub graft trnk/arm/leg
== END 2019-08-21 23:59 ==
LOC: WC 14:30
PROVIDERS: Family Provider Family Medicine; PCP Family Medicine; Referring Provider Surgery; Visit Provider Surgery
DX: T86.828 Other complications of skin graft (allograft) (autograft) (principal); Y83.8 Other surgical procedures as the cause of abnormal reaction of the patient, or of later complication, without mention of misadventure at the time of the procedure; T79.A22S Traumatic compartment syndrome of left lower extremity, sequela; X58.XXXS Exposure to other specified factors, sequela; L97.822 Non-pressure chronic ulcer of other part of left lower leg with fat layer exposed; M32.9 Systemic lupus erythematosus, unspecified
CPT/HCPCS: 15271; 29581; Q4186

== ENCOUNTER 2019-08-22 20:49 | Emergency (ER) | payer MEDICAID, SELFPAY ==
[2019-08-22 20:50] VITALS: BP 148/96; PULSE 97; RESP 16; TEMP 36.9; O2SAT 96; BMI 52.2
[2019-08-22 20:57] VITALS: TEMP 36.9
--- NOTE | 2019-08-22 21:20 | ED.DCSUM_ITS ---
- ER Visit Summary Date of Service: 08/22/19 Chief Complaint: Painful rash to the left side of her shoulder and chest. History of Present Illness: The patient is a 48 F 3-day history of a rash developing over her left upper chest shoulder neck region. States is becoming painful. No prior history. Physical Examination: Middle-aged female no acute distress. Vital signs are stable afebrile. H EENT exam unremarkable. Neck she has a rash primary base of her neck left upper shoulder and chest consistent with early shingles. There is no sloughing of skin or cellulitis. It does nicolle. There is no petechiae or purpuric purpura. There is no vesicles. This appears to be early shingles. Lungs clear to auscultation bilaterally. Heart regular rhythm no murmur. Abdomen soft nontender normal bowel sounds no peritoneal signs. Patient moving all 4 extremities. Normal strength. Neuro exam awake and alert with no focal motor deficits. Test Results: None Emergency Department Course and Treatment: Patient's rash is consistent with early shingles. She will be started on Famvir. Given OxyIR here for pain. She has pain medication at home. Treatment Plan: Famvir for 7 days. Follow-up. She has home Percocet for pain. Disposition: Discharge Impression: Acute left upper chest and shoulder rash secondary to shingles This note was generated with [employer] dictation software. It may contain incorrect words, spelling, and punctuation that were not noted in review of the chart prior to signing ED Disposition - Plan for ED Patient: Referrals: Tarah Dubon DO [Primary Care Provider] -
--- NOTE | 2019-08-22 21:23 | ED.DEP ---
ED Disposition - Plan for ED Patient: Disposition: Home or Assisted Living Instructions: Shingles (Herpes Zoster) Prescriptions: Famciclovir [Famvir] 500 mg PO TID #21 tab Prescription Printed Referrals: Tarah Dubon DO [Primary Care Provider] - 1 Week if not improving Additional Instructions: Rashes consistent with early shingles. Famvir 3 times a day till gone. You can use your home Percocet for pain. This may get worse and start crusting over. That is the normal course of shingles. If it does not start to improve follow-up with your doctor.
[2019-08-22] MEDS: oxyCODONE 5 MG Tablet 10 MG PO (21:38)
[2019-08-22] MEDS: Acyclovir 800 MG Tablet PO (21:38)
== END 2019-08-22 21:42 | disposition home or self-care (01) ==
LOC: ED 21:26
PROVIDERS: Emergency Provider Emergency Medicine; PCP Family Medicine
DX: B02.9 Zoster without complications (principal); F32.9 Major depressive disorder, single episode, unspecified; F41.9 Anxiety disorder, unspecified; Z86.711 Personal history of pulmonary embolism; Z79.01 Long term (current) use of anticoagulants
CPT/HCPCS: 99283

== ENCOUNTER 2019-09-14 10:45 | Outpatient (RCR) | payer MEDICAID, SELFPAY ==
[2019-08-22 00:36] VITALS: BP 131/83; PULSE 111; RESP 16; TEMP 36.4
[2019-08-31 13:13] VITALS: BP 140/91; PULSE 112; RESP 16; TEMP 35.8; BMI 52.2
--- NOTE | 2019-08-31 16:24 | PCM.WC.PN ---
(1) Ulcer of left lower extremity with fat layer exposed Status: Chronic Code(s): L97.922 - Non-pressure chronic ulcer of unspecified part of left lower leg with fat layer exposed (2) Skin graft disorder Status: Chronic Code(s): T86.829 - Unspecified complication of skin graft (allograft) (autograft) (3) Other complications of skin graft (allograft) (autograft) Status: Chronic Code(s): T86.828 - Other complications of skin graft (allograft) (autograft) (4) Lupus Status: Chronic Code(s): M32.9 - Systemic lupus erythematosus, unspecified (5) Immunocompromised state due to drug therapy Status: Chronic Code(s): Z79.899 - 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 History of Wound: Surgery 04/10/19 - 1. Surgical preparation left medial leg with excisional debridement nonhealing fasciotomy ulcer and placement of AmnioFill placental connective tissue powder and STSG reconstruction from left flank (48 cm2). 2. Surgical preparation left lateral leg with excisional debridement nonhealing fasciotomy ulcer and placement of AmnioFill placental connective tissue powder and STSG reconstruction from left flank (20 cm2). She developed some skin graft compromise that necessitated HBO treatments to try and salvage the grafts. The left lateral leg skin graft has healed. The left medial leg skin graft ulcer persists. Epifix placental connective tissue graft has been applied. The 7th application was placed today. She uses double layer tubigrip for compression. At the time of the surgery on 04/10/19, wound culture showed Enterobacter cloacae, Acinetobacter baumannii, Streptococcus agalactiae, and Anaerobic cocci. She was treated perioperatively with Levaquin and Augmentin. Prealbumin from 04/11/19 was 18.8. Encourage nutritional supplementation with protein to help the healing process. She underwent 18 out of 20 HBO treatments and stopped due to anxiety. Today she denies fever. Her appetite is ok. Progress of Wound: Improved. - Physical Exam Vital Signs Temp Pulse Resp BP 96.4 F L 112 H 16 140/91 H 08/31/19 13:13 08/31/19 13:13 08/31/19 13:13 08/31/19 13:13 General: Alert, Oriented x3, Cooperative HEENT: Atraumatic Oral: Moist Mucosa Lungs: Normal air movement Cardiovascular: Regular rate Extremities: Edema Skin: Ulcer/ Wound - Left lower medial leg Wound Measurements and Assessment WC - Nurse 1 - General Ulcer Measurement Start: 08/31/19 13:11 Freq: Status: Active Protocol: Activity Type Activity Date Activity User E-Sign Co-Sign Detail Recorded Client Recorded Date Recorded By Document 08/31/19 13:13 [facility] [id number] 08/31/19 13:18 [facility] 08/31/19 13:13 Wound Center Nurse 1 [Ulcer Assessment] #1 LLL medial -Combined with other wound No -Current Size (cm) - Length 6.4 -Current Size (cm) - Width 0.9 -Current Size (cm) - Depth 0.2 -Total Square Cm 5.76 -Photo Taken No -Epithelialization None Present -Tunneling No -Undermining/Tunneling No -Circular Undermining No -Exudate Amt Small -Exudate Type Serosanguineous -Wound Margin Distinct, Outline Attached -Granulation Amt Small (1-33%) -Granulation Quality Red -Slough/Fibrin Yes -Necrosis Amt Large (67-100%) -Necrotic Tissue Type Adherent Slough -Texture (Kisha-wound Skin Appearance) Assessed, Scarring -Moisture (Kisha-wound Skin Appearance Assessed,Dry/ ) Scaly -Color (Kisha-wound Skin Appearance) Assessed -Temperature (Kisha-wound Skin No Abnormality Appearance) (Pt Warm) -Tenderness on Palpation (Kisha-wound No Skin Appearance) -Ulcer Cleansing soapy water -Foul Odor after Cleansing No -Anesthetic Used 5% Lidocaine Gel [Edema Assessment] -Lower Limb Edema Present Yes -Left Calf (cm) 46.5 -Left Ankle (cm) 23.3 WC - Nurse 2 - General Ulcer CM Notes Start: 08/31/19 13:11 Freq: Status: Active Protocol: Activity Type Activity Date Activity User E-Sign Co-Sign Detail Recorded Client Recorded Date Recorded By Document 08/31/19 13:39 [id number] 08/31/19 13:42 08/31/19 13:39 Wound Center Nurse 2 [Procedure/Treatment] #2 LLL Lateral -Time 13:40 -Correct Patient No -Correct Side, Site, Position No -Correct Procedure No -Procedure Performed No -Post Debridement Size (cm) - Length 0 -Post Debridement Size (cm) - Width 0 -Post Debridement Size (cm) - Depth 0 -Total Square Cm 0 -Wound/Ulcer Outcome Healed- Epithelialized -Ulcer Cleansing Rinsed/ Irrigated with Saline -Foul Odor after Cleansing No -Bioengineered Tissue Yes -Type of bioengineered Tissue EPIFIX -Expiration Date 04/21/24 -Product Lot Number [id number] -Percent Used 100 -Saline Lot Number [id number] #1 LLL medial -Time 13:41 -Correct Patient Yes -Correct Side, Site, Position Yes -Correct Procedure Yes -Procedure Performed Yes -Type of Procedure Debridement -Clinical Debridement Subcutaneous -Post Debridement Size (cm) - Length 10.7 -Post Debridement Size (cm) - Width 1 -Post Debridement Size (cm) - Depth 0.3 -Total Square Cm 10.7 -Wound/Ulcer Outcome Not Healed -Ulcer Cleansing Rinsed/ Irrigated with Saline -Foul Odor after Cleansing No -Bioengineered Tissue Yes -Type of bioengineered Tissue EPIFIX -Expiration Date 04/21/24 -Product Lot Number [id number] -Percent Used 100 -Saline Lot Number [id number] -Bleeding Controlled with Pressure -Offloading No -Treatment Response Procedure Tolerated Well [See Physician Procedure note for Specifics] Pain Scale: 0-10 Numeric [Pain] -Is Patient Pain Free? Yes Musculoskeletal: Tenderness Neurological: Neuro grossly intact Psych/Mental Status: Normal Affect, Appropriate Debridement Note Post-Debridement Measurements/Treatment WC - Nurse 2 - General Ulcer CM Notes Start: 08/31/19 13:11 Freq: Status: Active Protocol: Activity Type Activity Date Activity User E-Sign Co-Sign Detail Recorded Client Recorded Date Recorded By Document 08/31/19 13:39 MARITA [id number] 08/31/19 13:42 MARITA 08/31/19 13:39 Wound Center Nurse 2 #2 LLL Lateral -Time 13:40 -Correct Patient No -Correct Side, Site, Position No -Correct Procedure No -Procedure Performed No -Post Debridement Size (cm) - Length 0 -Post Debridement Size (cm) - Width 0 -Post Debridement Size (cm) - Depth 0 -Total Square Cm 0 -Wound/Ulcer Outcome Healed- Epithelialized -Ulcer Cleansing Rinsed/ Irrigated with Saline -Foul Odor after Cleansing No -Bioengineered Tissue Yes -Type of bioengineered Tissue EPIFIX -Expiration Date 04/21/24 -Product Lot Number [id number] -Percent Used 100 -Saline Lot Number [id number] #[id number] LLL medial -Time 13:41 -Correct Patient Yes -Correct Side, Site, Position Yes -Correct Procedure Yes -Procedure Performed Yes -Type of Procedure Debridement -Clinical Debridement Subcutaneous -Post Debridement Size (cm) - Length 10.7 -Post Debridement Size (cm) - Width 1 -Post Debridement Size (cm) - Depth 0.3 -Total Square Cm 10.7 -Wound/Ulcer Outcome Not Healed -Ulcer Cleansing Rinsed/ Irrigated with Saline -Foul Odor after Cleansing No -Bioengineered Tissue Yes -Type of bioengineered Tissue EPIFIX -Expiration Date 04/21/24 -Product Lot Number [id number] -Percent Used 100 -Saline Lot Number [id number] -Bleeding Controlled with Pressure -Offloading No -Treatment Response Procedure Tolerated Well Pain Scale: 0-10 Numeric Is Patient Pain Free? Yes Wound debrided: medial leg ulcer Laterality: Left Type of Debridement: Excisional debridement Anesthesia Used: 5% Lidocaine Gel Depth: Down to and including healthy tissue, in the subcutaneous layer Percentage of wound debrided: 100 Instrument Used: 5mm curette Tissue Removed: subcutaneous tissue and slough Severity: Fat Layer Exposed Amount of bleeding with debridement: Mild Bleeding Controlled with: Compression and gauze Patient tolerated procedure well Assessment/Plan Assessment: 1. Nonhealing fasciotomy ulcer left medial leg, skin grafted, with skin graft compromise. 2. Nonhealing fasciotomy ulcer left lateral leg, skin grafted, with skin graft compromise that has healed. 3. Hematoma with compartment syndrome left leg s/p fasciotomies. 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 5. Lupus. 6. Immunocompromised state due to high risk medication, Methotrexate, for Lupus. Plan: Epifix placental connective tissue graft #7 was applied today. 100% of the product was used on the left medial ulcer, covered by wound veil. A double layer tubigrip for compression was applied. The left lateral leg ulcer remains healed. Elevate left leg when sitting. Encouraged stronger compression than double tubigrip but patient is hesitant because it increases her anxiety. Compromised on using double tubigrip and then adding MENDEZ wrap at bed time. Depending on the healing of the Epifix, another wound culture may be done to see if antibiotics are needed. At the time of the surgery on 04/10/19, wound culture showed Enterobacter cloacae, Acinetobacter baumannii, Streptococcus agalactiae, and Anaerobic cocci. She was treated perioperatively with Levaquin and Augmentin. Prealbumin from 04/11/19 was 18.8. Encourage nutritional supplementation wit protein to help the healing process. She is getting over having shingles this week. Followup one week. Code Visit [id number]-[id number]: [id number] Skin sub graft trnk/arm/leg
[2019-09-07 10:18] VITALS: BP 146/84; PULSE 97; RESP 16; TEMP 36.6; BMI 52.2
--- NOTE | 2019-09-07 18:14 | PCM.WC.PN ---
Type of Wound Date of Service: 09/07/19 Chief Complaint: Nonhealing fasciotomy ulcer left medial leg with skin graft compromise. History of Wound: Surgery 04/10/19 - 1. Surgical preparation left medial leg with excisional debridement nonhealing fasciotomy ulcer and placement of AmnioFill placental connective tissue powder and STSG reconstruction from left flank (48 cm2). 2. Surgical preparation left lateral leg with excisional debridement nonhealing fasciotomy ulcer and placement of AmnioFill placental connective tissue powder and STSG reconstruction from left flank (20 cm2). She developed some skin graft compromise that necessitated HBO treatments to try and salvage the grafts. The left lateral leg skin graft has healed. The left medial leg skin graft ulcer persists. Epifix placental connective tissue graft has been applied. She has had 7 applications thus far. She uses double layer tubigrip for compression. At the time of the surgery on 04/10/19, wound culture showed Enterobacter cloacae, Acinetobacter baumannii, Streptococcus agalactiae, and Anaerobic cocci. She was treated perioperatively with Levaquin and Augmentin. Prealbumin from 04/11/19 was 18.8. Encourage nutritional supplementation with protein to help the healing process. She underwent 18 out of 20 HBO treatments and stopped due to anxiety. Today she denies fever. Her appetite is ok. Progress of Wound: Improved. - Physical Exam Vital Signs Temp Pulse Resp BP 98 F 97 16 146/84 H 09/07/19 10:18 09/07/19 10:18 09/07/19 10:18 09/07/19 10:18 Wound Measurements and Assessment WC - Nurse 1 - General Ulcer Measurement Start: 08/31/19 13:11 Freq: Status: Active Protocol: Activity Type Activity Date Activity User E-Sign Co-Sign Detail Recorded Client Recorded Date Recorded By Document 09/07/19 10:18 [facility] [id number] 09/07/19 10:27 [facility] 09/07/19 10:18 Wound Center Nurse 1 [Ulcer Assessment] #1 LLL medial -Combined with other wound No -Current Size (cm) - Length 6.2 -Current Size (cm) - Width 1.2 -Current Size (cm) - Depth 0.2 -Total Square Cm 7.44 -Photo Taken No -Epithelialization None Present -Tunneling No -Undermining/Tunneling No -Circular Undermining No -Exudate Amt Small -Exudate Type Serosanguineous -Wound Margin Distinct, Outline Attached -Granulation Amt Small (1-33%) -Granulation Quality Red -Slough/Fibrin Yes -Necrosis Amt Large (67-100%) -Necrotic Tissue Type Adherent Slough -Texture (Kisha-wound Skin Appearance) Assessed, Scarring -Moisture (Kisha-wound Skin Appearance Assessed,Dry/ ) Scaly -Color (Kisha-wound Skin Appearance) Assessed, Erythema -Temperature (Kisha-wound Skin No Abnormality Appearance) (Pt Warm) -Tenderness on Palpation (Kisha-wound No Skin Appearance) -Ulcer Cleansing Rinsed/ Irrigated with Saline -Foul Odor after Cleansing No -Anesthetic Used 5% Lidocaine Gel [Edema Assessment] -Lower Limb Edema Present Yes -Left Calf (cm) 47.5 -Left Ankle (cm) 23.6 WC - Nurse 2 - General Ulcer CM Notes Start: 08/31/19 13:11 Freq: Status: Active Protocol: Activity Type Activity Date Activity User E-Sign Co-Sign Detail Recorded Client Recorded Date Recorded By Document 09/07/19 10:39 MARITA [id number] 09/07/19 10:45 MARITA 09/07/19 10:39 Wound Center Nurse 2 [Procedure/Treatment] #1 LLL medial -Time 10:40 -Correct Patient Yes -Correct Side, Site, Position Yes -Correct Procedure Yes -Procedure Performed Yes -Type of Procedure Debridement -Clinical Debridement Subcutaneous -Post Debridement Size (cm) - Length 6.0 -Post Debridement Size (cm) - Width 1.2 -Post Debridement Size (cm) - Depth 0.5 -Total Square Cm 7.20 -Wound/Ulcer Outcome Not Healed -Ulcer Cleansing Rinsed/ Irrigated with Saline -Foul Odor after Cleansing No -Bioengineered Tissue Yes -Type of bioengineered Tissue EPIFIX -Expiration Date 05/22/24 -Product Lot Number [id number] -Percent Used 100 -Saline Lot Number [id number] -Bleeding Controlled with Pressure -Offloading No -Treatment Response Procedure Tolerated Well [See Physician Procedure note for Specifics] Pain Scale: 0-10 Numeric [Pain] -Is Patient Pain Free? Yes Debridement Note Post-Debridement Measurements/Treatment WC - Nurse 2 - General Ulcer CM Notes Start: 08/31/19 13:11 Freq: Status: Active Protocol: Activity Type Activity Date Activity User E-Sign Co-Sign Detail Recorded Client Recorded Date Recorded By Document 08/31/19 13:39 [email or web address] [id number] 08/31/19 13:42 Document 09/07/19 10:39 [id number] 09/07/19 10:45 08/31/19 09/07/19 13:39 10:39 Wound Center Nurse 2 #2 LLL Lateral -Time 13:40 -Correct Patient No -Correct Side, Site, Position No -Correct Procedure No -Procedure Performed No -Post Debridement Size (cm) - Length 0 -Post Debridement Size (cm) - Width 0 -Post Debridement Size (cm) - Depth 0 -Total Square Cm 0 -Wound/Ulcer Outcome Healed- Epithelialized -Ulcer Cleansing Rinsed/ Irrigated with Saline -Foul Odor after Cleansing No -Bioengineered Tissue Yes -Type of bioengineered Tissue EPIFIX -Expiration Date 04/21/24 -Product Lot Number [id number] -Percent Used 100 -Saline Lot Number [id number] #[id number] LLL medial -Time 13:41 10:40 -Correct Patient Yes Yes -Correct Side, Site, Position Yes Yes -Correct Procedure Yes Yes -Procedure Performed Yes Yes -Type of Procedure Debridement Debridement -Clinical Debridement Subcutaneous Subcutaneous -Post Debridement Size (cm) - Length 10.7 6.0 -Post Debridement Size (cm) - Width 1 1.2 -Post Debridement Size (cm) - Depth 0.3 0.5 -Total Square Cm 10.7 7.20 -Wound/Ulcer Outcome Not Healed Not Healed -Ulcer Cleansing Rinsed/ Rinsed/ Irrigated with Irrigated with Saline Saline -Foul Odor after Cleansing No No -Bioengineered Tissue Yes Yes -Type of bioengineered Tissue EPIFIX EPIFIX #8 -Expiration Date 04/21/24 05/22/24 -Product Lot Number [id number] -Percent Used 100 100 -Saline Lot Number [id number] -Bleeding Controlled with Pressure Pressure -Offloading No No -Treatment Response Procedure Procedure Tolerated Well Tolerated Well Pain Scale: 0-10 Numeric Is Patient Pain Free? Yes Yes Wound debrided: #1 Left lower medial leg. Laterality: Left Wound Grade/Stage: 2. Type of Debridement: Excisional debridement Anesthesia Used: 4% Lidocaine Solution Depth: Down to and including healthy tissue, in the subcutaneous layer Percentage of wound debrided: 100 Instrument Used: 3mm curette Tissue Removed: subcutaneous tissue. Severity: Fat Layer Exposed Amount of bleeding with debridement: Mild Bleeding Controlled with: Pressure Patient tolerated procedure well, - - Epifix placental connective tissue graft #8 was applied today. Expiration date - 05/22/24. Product Lot Number - [id number]. Percent used - 100%. Saline Lot Number - [id number]. Assessment/Plan Assessment: 1. Nonhealing fasciotomy ulcer left medial leg, skin grafted, with skin graft compromise. 2. Fasciotomy ulcer left lateral leg, skin grafted, with skin graft compromise that has healed. 3. Hematoma with compartment syndrome left leg s/p fasciotomies. 4. long term care phlebotomist use of anticoagulation. 5. Lupus. 6. Immunocompromised state due to high risk medication, Methotrexate, for Lupus. Plan: Epifix placental connective tissue graft #8 was applied today. 100% of the product was used on the left medial ulcer, covered by wound veil. A double layer tubigrip for compression was applied. The left lateral leg ulcer remains healed. Elevate left leg when sitting. Encouraged stronger compression than double tubigrip but patient is hesitant because it increases her anxiety. Compromised on using double tubigrip and then adding MENDEZ wrap at bed time. Depending on the healing of the Epifix, another wound culture may be done to see if antibiotics are needed. At the time of the surgery on 04/10/19, wound culture showed Enterobacter cloacae, Acinetobacter baumannii, Streptococcus agalactiae, and Anaerobic cocci. She was treated perioperatively with Levaquin and Augmentin. Prealbumin from 04/11/19 was 18.8. Encourage nutritional supplementation wit protein to help the healing process. Followup one week. Code Visit 150xxx-152xx: 24603 Skin sub graft trnk/arm/leg - ICD-10 - L97.922, T86.828, T14.8xxS, T79.A22S, M32.9, Z79.01, Z79.899
[2019-09-14 10:54] VITALS: BP 116/48; PULSE 113; RESP 18; TEMP 36.8; BMI 52.2
--- NOTE | 2019-09-14 12:28 | PN.PCM_ITS ---
(1) Ulcer of left lower extremity with fat layer exposed Status: Chronic Code(s): L97.922 - Non-pressure chronic ulcer of unspecified part of left lower leg with fat layer exposed (2) Skin graft disorder Status: Chronic Code(s): T86.829 - Unspecified complication of skin graft (allograft) (autograft) (3) Other complications of skin graft (allograft) (autograft) Status: Chronic Code(s): T86.828 - Other complications of skin graft (allograft) (autograft) (4) Lupus Status: Chronic Code(s): M32.9 - Systemic lupus erythematosus, unspecified (5) Immunocompromised state due to drug therapy Status: Chronic Code(s): Z79.899 - 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 History of Wound: Surgery 04/10/19 - 1. Surgical preparation left medial leg with excisional debridement nonhealing fasciotomy ulcer and placement of AmnioFill placental connective tissue powder and STSG reconstruction from left flank (48 cm2). 2. Surgical preparation left lateral leg with excisional debridement nonhealing fasciotomy ulcer and placement of AmnioFill placental connective tissue powder and STSG reconstruction from left flank (20 cm2). She developed some skin graft compromise that necessitated HBO treatments to try and salvage the grafts. The left lateral leg skin graft has healed. The left medial leg skin graft ulcer persists. She has had 8 applications of the Epifix. She has increased bioburden this week. Will start her on Santyl to see if we can improve her wound bed before applying more Epifix. She uses double layer tubigrip for compression. At the time of the surgery on 04/10/19, wound culture showed Enterobacter cloacae, Acinetobacter baumannii, Streptococcus agalactiae, and Anaerobic cocci. She was treated perioperatively with Levaquin and Augmentin. Prealbumin from 04/11/19 was 18.8. Encourage nutritional supplementation with protein to help the healing process. She underwent 18 out of 20 HBO treatments and stopped due to anxiety. Today she denies fever. Her appetite is ok. Progress of Wound: No improvement. Increase biofilm. - Physical Exam Vital Signs Temp Pulse Resp BP 98.2 F 113 H 18 116/48 L 09/14/19 10:54 09/14/19 10:54 09/14/19 10:54 09/14/19 10:54 General: Alert, Oriented x3 HEENT: Atraumatic Oral: Moist Mucosa Lungs: Normal air movement Cardiovascular: Regular rate Extremities: Capillary Refill Less than 3 Seconds, Edema - +2 edema Skin: Ulcer/ Wound - left medial leg ulcer Wound Measurements and Assessment WC - Nurse 1 - General Ulcer Measurement Start: 08/31/19 13:11 Freq: Status: Active Protocol: Activity Type Activity Date Activity User E-Sign Co-Sign Detail Recorded Client Recorded Date Recorded By Document 09/14/19 10:54 DL [id number] 09/14/19 10:56 DL 09/14/19 10:54 Wound Center Nurse 1 [Ulcer Assessment] #1 LLL medial -Current Size (cm) - Length 5.8 -Current Size (cm) - Width 1.1 -Current Size (cm) - Depth 0.4 -Total Square Cm 6.38 -Photo Taken No -Exudate Amt Small -Exudate Type Serosanguineous -Wound Margin Distinct, Outline Attached -Granulation Amt Medium (34-66%) -Granulation Quality Red -Necrosis Amt Medium (34-66%) -Necrotic Tissue Type Adherent Slough -Structure Exposed N/A -Texture (Kisha-wound Skin Appearance) Scarring -Moisture (Kisha-wound Skin Appearance No Abnormality ) -Color (Kisha-wound Skin Appearance) No Abnormality -Temperature (Kisha-wound Skin No Abnormality Appearance) (Pt Warm) -Tenderness on Palpation (Kisha-wound No Skin Appearance) -Ulcer Cleansing Wound Cleanser -Foul Odor after Cleansing No -Anesthetic Used 4% Lidocaine Solution [Edema Assessment] -Left Calf (cm) 45 -Left Ankle (cm) 23.3 - Nurse 2 - General Ulcer CM Notes Start: 08/31/19 13:11 Freq: Status: Active Protocol: Activity Type Activity Date Activity User E-Sign Co-Sign Detail Recorded Client Recorded Date Recorded By Document 09/14/19 11:05 MARITA [id number] 09/14/19 11:11 MARITA 09/14/19 11:05 Wound Center Nurse 2 [Procedure/Treatment] #1 LL medial -Time 11:05 -Correct Patient Yes -Correct Side, Site, Position Yes -Correct Procedure Yes -Procedure Performed Yes -Type of Procedure Debridement -Clinical Debridement Subcutaneous -Post Debridement Size (cm) - Length 6.0 -Post Debridement Size (cm) - Width 1.3 -Post Debridement Size (cm) - Depth 0.5 -Total Square Cm 7.80 -Wound/Ulcer Outcome Not Healed -Ulcer Cleansing Rinsed/ Irrigated with Saline -Foul Odor after Cleansing No -Bioengineered Tissue Yes -Type of bioengineered Tissue EPIFIX -Bleeding Controlled with Pressure -Offloading No -Treatment Response Procedure Tolerated Well [See Physician Procedure note for Specifics] Pain Scale: 0-10 Numeric [Pain] -Is Patient Pain Free? Yes Musculoskeletal: No Tenderness to Palpation of Joints or Extremities Neurological: Neuro grossly intact Psych/Mental Status: Normal Affect, Appropriate Debridement Note Post-Debridement Measurements/Treatment WC - Nurse 2 - General Ulcer CM Notes Start: 08/31/19 13:11 Freq: Status: Active Protocol: Activity Type Activity Date Activity User E-Sign Co-Sign Detail Recorded Client Recorded Date Recorded By Document 08/31/19 13:39 [id number] 08/31/19 13:42 Document 09/07/19 10:39 [id number] 09/07/19 10:45 Document 09/14/19 11:05 [id number] 09/14/19 11:11 08/31/19 09/07/19 09/14/19 13:39 10:39 11:05 Wound Center Nurse 2 #2 [facility] Lateral -Time 13:40 -Correct Patient No -Correct Side, Site, Position No -Correct Procedure No -Procedure Performed No -Post Debridement Size (cm) - Length 0 -Post Debridement Size (cm) - Width 0 -Post Debridement Size (cm) - Depth 0 -Total Square Cm 0 -Wound/Ulcer Outcome Healed- Epithelialized -Ulcer Cleansing Rinsed/ Irrigated with Saline -Foul Odor after Cleansing No -Bioengineered Tissue Yes -Type of bioengineered Tissue EPIFIX -Expiration Date 04/21/24 -Product Lot Number [id number] -Percent Used 100 -Saline Lot Number [id number] #[id number] LLL medial -Time 13:41 10:40 11:05 -Correct Patient Yes Yes Yes -Correct Side, Site, Position Yes Yes Yes -Correct Procedure Yes Yes Yes -Procedure Performed Yes Yes Yes -Type of Procedure Debridement Debridement Debridement -Clinical Debridement Subcutaneous Subcutaneous Subcutaneous -Post Debridement Size (cm) - Length 10.7 6.0 6.0 -Post Debridement Size (cm) - Width 1 1.2 1.3 -Post Debridement Size (cm) - Depth 0.3 0.5 0.5 -Total Square Cm 10.7 7.20 7.80 -Wound/Ulcer Outcome Not Healed Not Healed Not Healed -Ulcer Cleansing Rinsed/ Rinsed/ Rinsed/ Irrigated with Irrigated with Irrigated with Saline Saline Saline -Foul Odor after Cleansing No No No -Bioengineered Tissue Yes Yes Yes -Type of bioengineered Tissue EPIFIX EPIFIX EPIFIX -Expiration Date 04/21/24 05/22/24 -Product Lot Number [id number] -Percent Used 100 100 -Saline Lot Number [id number] -Bleeding Controlled with Pressure Pressure Pressure -Offloading No No No -Treatment Response Procedure Procedure Procedure Tolerated Well Tolerated Well Tolerated Well Pain Scale: 0-10 Numeric Is Patient Pain Free? Yes Yes Yes Wound debrided: medial leg ulcer Laterality: Left Type of Debridement: Excisional debridement Anesthesia Used: 4% Lidocaine Solution, 5% Lidocaine Gel Depth: Down to and including healthy tissue, in the subcutaneous layer Percentage of wound debrided: 100 Instrument Used: 5mm curette Tissue Removed: Subcutaneous tissue and slough. Severity: Limited To Skin Breakdown Amount of bleeding with debridement: None Bleeding Controlled with: Pressure Patient tolerated procedure well Assessment/Plan Assessment: 1. Nonhealing fasciotomy ulcer left medial leg, skin grafted, with skin graft compromise. 2. Fasciotomy ulcer left lateral leg, skin grafted, with skin graft compromise that has healed. 3. Hematoma with compartment syndrome left leg s/p fasciotomies. 4. USP use of anticoagulation. 5. Lupus. 6. Immunocompromised state due to high risk medication, Methotrexate, for Lupus. Plan: Epifix placental connective tissue graft #8 was applied last week. She has an increased in bioburden this week. Will hold off on the Epifix and apply Santyl to the wound bed to help improve the bed of the wound. A double layer tubigrip for compression was applied. With her +2 edema, concern that she is not wearing her compression as she should was voiced. Reinforced the importance of compression for wound healing. The left lateral leg ulcer remains healed. Elevate left leg when sitting. Encouraged stronger compression than double tubigrip but patient is hesitant because it increases her anxiety. Compromised on using double tubigrip and then adding MENDEZ wrap at bed time. Depending on the healing of the Epifix, another wound culture may be done to see if antibiotics are needed. At the time of the surgery on 04/10/19, wound culture showed Enterobacter cloacae, Acinetobacter baumannii, Streptococcus agalactiae, and Anaerobic cocci. She was treated perioperatively with Levaquin and Augmentin. Prealbumin from 04/11/19 was 18.8. Encourage nutritional supplementation wit protein to help the healing process. Followup one week. Code Visit 111xxx-113xx: [id number] Jessica subq tissue 20 sq cm/<
== END 2019-09-19 23:59 ==
LOC: WC 10:45
PROVIDERS: Family Provider Family Medicine; PCP Family Medicine; Referring Provider Surgery; Visit Provider Surgery
DX: T86.828 Other complications of skin graft (allograft) (autograft) (principal); Y83.8 Other surgical procedures as the cause of abnormal reaction of the patient, or of later complication, without mention of misadventure at the time of the procedure; T79.A22S Traumatic compartment syndrome of left lower extremity, sequela; X58.XXXS Exposure to other specified factors, sequela; L97.822 Non-pressure chronic ulcer of other part of left lower leg with fat layer exposed; M32.9 Systemic lupus erythematosus, unspecified; F41.9 Anxiety disorder, unspecified; L97.821 Non-pressure chronic ulcer of other part of left lower leg limited to breakdown of skin
CPT/HCPCS: 11042; 15271; Q4186

== ENCOUNTER 2019-10-19 08:30 | Outpatient (RCR) | payer MEDICAID, SELFPAY ==
[2019-09-20 00:29] VITALS: BP 116/48; PULSE 113; RESP 18; TEMP 36.8
[2019-09-21 09:58] VITALS: BP 134/89; PULSE 104; RESP 16; TEMP 36.8; BMI 52.2
--- NOTE | 2019-09-21 16:15 | PCM.WC.PN ---
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 History of Wound: Surgery 04/10/19 - 1. Surgical preparation left medial leg with excisional debridement nonhealing fasciotomy ulcer and placement of AmnioFill placental connective tissue powder and STSG reconstruction from left flank (48 cm2). 2. Surgical preparation left lateral leg with excisional debridement nonhealing fasciotomy ulcer and placement of AmnioFill placental connective tissue powder and STSG reconstruction from left flank (20 cm2). She developed some skin graft compromise that necessitated HBO treatments to try and salvage the grafts. The left lateral leg skin graft has healed. The left medial leg skin graft ulcer persists. She has had 8 applications of Epifix thus far. Have placed on hold to try to improve her wound bed base. She has been using Santyl last week and will continue for another week. She uses double layer tubigrip for compression. At the time of the surgery on 04/10/19, wound culture showed Enterobacter cloacae, Acinetobacter baumannii, Streptococcus agalactiae, and Anaerobic cocci. She was treated perioperatively with Levaquin and Augmentin. Prealbumin from 04/11/19 was 18.8. Encourage nutritional supplementation with protein to help the healing process. She underwent 18 out of 20 HBO treatments and stopped due to anxiety. Today she denies fever. Her appetite is ok. Progress of Wound: The wound bed has started to improve using the Santyl. - Physical Exam Vital Signs Temp Pulse Resp BP 98.2 F 104 H 16 134/89 H 09/21/19 09:58 03 09:58 09/21/19 09:58 09/21/19 09:58 General: Alert, Oriented x3 HEENT: Atraumatic Oral: Moist Mucosa Lungs: Normal air movement Cardiovascular: Regular rate Abdomen: Soft Extremities: Capillary Refill Less than 3 Seconds, Edema Skin: Ulcer/ Wound - Left medial leg ulcer Wound Measurements and Assessment WC - Nurse 1 - General Ulcer Measurement Start: 09/21/19 09:58 Freq: Status: Active Protocol: Activity Type Activity Date Activity User E-Sign Co-Sign Detail Recorded Client Recorded Date Recorded By Document 09/21/19 09:58 MW [id number] 09/21/19 10:01 MW 09/21/19 09:58 Wound Center Nurse 1 [Ulcer Assessment] #1 LLL medial -Combined with other wound No -Current Size (cm) - Length 6.3 -Current Size (cm) - Width 1.4 -Current Size (cm) - Depth 0.2 -Total Square Cm 8.82 -Photo Taken No -Epithelialization Small 1-33% -Tunneling No -Undermining/Tunneling No -Circular Undermining No -Exudate Amt Small -Exudate Type Serosanguineous -Wound Margin Distinct, Outline Attached -Granulation Amt None Present (0 %) -Granulation Quality N/A -Slough/Fibrin Yes -Necrosis Amt Large (67-100%) -Necrotic Tissue Type Adherent Slough -Structure Exposed N/A -Texture (Kisha-wound Skin Appearance) Assessed, Localized Edema ,Scarring -Moisture (Kisha-wound Skin Appearance No Abnormality, ) Assessed -Color (Kisha-wound Skin Appearance) No Abnormality, Assessed -Temperature (Kisha-wound Skin No Abnormality Appearance) (Pt Warm) -Tenderness on Palpation (Kisha-wound Yes Skin Appearance) -Ulcer Cleansing Rinsed/ Irrigated with Saline -Foul Odor after Cleansing No -Anesthetic Used 4% Lidocaine Solution [Edema Assessment] -Lower Limb Edema Present No WC - Nurse 2 - General Ulcer CM Notes Start: 09/21/19 09:58 Freq: Status: Active Protocol: Activity Type Activity Date Activity User E-Sign Co-Sign Detail Recorded Client Recorded Date Recorded By Document 09/21/19 10:20 JF [id number] 09/21/19 10:24 JF 09/21/19 10:20 Wound Center Nurse 2 [Procedure/Treatment] #1 LL medial -Time 10:21 -Correct Patient Yes -Correct Side, Site, Position Yes -Correct Procedure Yes -Procedure Performed Yes -Type of Procedure Debridement -Clinical Debridement Subcutaneous -Post Debridement Size (cm) - Length 6.2 -Post Debridement Size (cm) - Width 1.4 -Post Debridement Size (cm) - Depth 0.5 -Total Square Cm 8.68 -Wound/Ulcer Outcome Not Healed -Ulcer Cleansing Rinsed/ Irrigated with Saline -Foul Odor after Cleansing No -Bioengineered Tissue No -Bleeding Controlled with Pressure -Offloading No -Treatment Response Procedure Tolerated Well [See Physician Procedure note for Specifics] Pain Scale: 0-10 Numeric [Pain] -Is Patient Pain Free? Yes Musculoskeletal: Tenderness Neurological: Neuro grossly intact Psych/Mental Status: Normal Affect, Appropriate Debridement Note Post-Debridement Measurements/Treatment WC - Nurse 2 - General Ulcer CM Notes Start: 09/21/19 09:58 Freq: Status: Active Protocol: Activity Type Activity Date Activity User E-Sign Co-Sign Detail Recorded Client Recorded Date Recorded By Document 09/21/19 10:20 [id number] 09/21/19 10:24 MARITA 09/21/19 10:20 Wound Center Nurse 2 #1 [facility] medial -Time 10:21 -Correct Patient Yes -Correct Side, Site, Position Yes -Correct Procedure Yes -Procedure Performed Yes -Type of Procedure Debridement -Clinical Debridement Subcutaneous -Post Debridement Size (cm) - Length 6.2 -Post Debridement Size (cm) - Width 1.4 -Post Debridement Size (cm) - Depth 0.5 -Total Square Cm 8.68 -Wound/Ulcer Outcome Not Healed -Ulcer Cleansing Rinsed/ Irrigated with Saline -Foul Odor after Cleansing No -Bioengineered Tissue No -Bleeding Controlled with Pressure -Offloading No -Treatment Response Procedure Tolerated Well Pain Scale: 0-10 Numeric Is Patient Pain Free? Yes Wound debrided: medial leg ulcer Laterality: Left Type of Debridement: Excisional debridement Anesthesia Used: 4% Lidocaine Solution, 5% Lidocaine Gel Depth: Down to and including healthy tissue, in the subcutaneous layer Percentage of wound debrided: 100 Instrument Used: 5mm curette Tissue Removed: subcutanous tissue and slough Severity: Fat Layer Exposed Amount of bleeding with debridement: Mild Bleeding Controlled with: Pressure Patient tolerated procedure well Assessment/Plan Active Problems Ulcer of left lower extremity (Chronic) 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) 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) on Methotrexate for Lupus Assessment: 1. Nonhealing fasciotomy ulcer left medial leg, skin grafted, with skin graft compromise. 2. Fasciotomy ulcer left lateral leg, skin grafted, with skin graft compromise that has healed. 3. Hematoma with compartment syndrome left leg s/p fasciotomies. 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 5. Lupus. 6. Immunocompromised state due to high risk medication, Methotrexate, for Lupus. Plan: Epifix placental connective tissue graft #8 was applied two weeks ago. Have placed on hold and now using Santyl to help improve the wound bed base. Will try a Spanda bean roaster latex free compression to see if this helps decrease the small irritations she has on her left lower leg. If she does not tolerate the Alexandra bean roaster then she will use the tubigrip double layer wrap. The left lateral leg ulcer remains healed. Elevate left leg when sitting. Encouraged stronger compression than double tubigrip but patient is hesitant because it increases her anxiety. Compromised on using double tubigrip and then adding MENDEZ wrap at bed time. Depending on the healing of the Epifix, another wound culture may be done to see if antibiotics are needed. At the time of the surgery on 04/10/19, wound culture showed Enterobacter cloacae, Acinetobacter baumannii, Streptococcus agalactiae, and Anaerobic cocci. She was treated perioperatively with Levaquin and Augmentin. Prealbumin from 04/11/19 was 18.8. Encourage nutritional supplementation wit protein to help the healing process. Followup one week. Code Visit [id number]: [id number] Jessica subq tissue 20 sq cm/<
[2019-09-28 10:07] VITALS: BP 138/87; PULSE 98; RESP 18; TEMP 36.6; BMI 52.2
--- NOTE | 2019-09-28 11:02 | PN.PCM_ITS ---
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 History of Wound: Surgery 04/10/19 - 1. Surgical preparation left medial leg with excisional debridement nonhealing fasciotomy ulcer and placement of AmnioFill placental connective tissue powder and STSG reconstruction from left flank (48 cm2). 2. Surgical preparation left lateral leg with excisional debridement nonhealing fasciotomy ulcer and placement of AmnioFill placental connective tissue powder and STSG reconstruction from left flank (20 cm2). She developed some skin graft compromise that necessitated HBO treatments to try and salvage the grafts. The left lateral leg skin graft has healed. The left medial leg skin graft ulcer persists. She has had 8 applications of Epifix thus far. Have placed on hold to try to improve her wound bed base. She has been using Santyl and will continue until she completes the tube. She will then do moistened silver daily. She is using spandagrip wrap for compression. At the time of the surgery on 04/10/19, wound culture showed Enterobacter cloacae, Acinetobacter baumannii, Streptococcus agalactiae, and Anaerobic cocci. She was treated perioperatively with Levaquin and Augmentin. Prealbumin from 04/11/19 was 18.8. Encourage nutritional supplementation with protein to help the healing process. She underwent 18 out of 20 HBO treatments and stopped due to anxiety. Today she denies fever. Her appetite is ok. Progress of Wound: The wound bed has started to improve using the Santyl. - Physical Exam Vital Signs Temp Pulse Resp BP 97.8 F 98 18 138/87 H 09/28/19 10:07 09/28/19 10:07 09/28/19 10:07 09/28/19 10:07 General: Alert, Oriented x3, Cooperative HEENT: Atraumatic Oral: Moist Mucosa Lungs: Normal air movement Cardiovascular: Regular rate Abdomen: Obese Extremities: Capillary Refill Less than 3 Seconds, Edema Skin: Ulcer/ Wound - Left medial leg ulcer Wound Measurements and Assessment WC - Nurse 1 - General Ulcer Measurement Start: 09/21/19 09:58 Freq: Status: Active Protocol: Activity Type Activity Date Activity User E-Sign Co-Sign Detail Recorded Client Recorded Date Recorded By Document 09/28/19 10:07 MW [id number] 09/28/19 10:09 MW 09/28/19 10:07 Wound Center Nurse 1 [Ulcer Assessment] #1 LLL medial -Combined with other wound No -Current Size (cm) - Length 6.0 -Current Size (cm) - Width 1.1 -Current Size (cm) - Depth 0.2 -Total Square Cm 6.60 -Date of Last Picture (Recall this 09/28/19 field) -Photo Taken Yes -Epithelialization None Present -Tunneling No -Undermining/Tunneling No -Circular Undermining No -Exudate Amt Medium -Exudate Type Serosanguineous -Wound Margin Flat & Intact -Granulation Amt Small (1-33%) -Granulation Quality N/A -Slough/Fibrin Yes -Necrosis Amt Large (67-100%) -Necrotic Tissue Type Adherent Slough -Structure Exposed N/A -Texture (Kisha-wound Skin Appearance) Assessed, Scarring -Moisture (Kisha-wound Skin Appearance Assessed,Dry/ ) Scaly -Color (Kisha-wound Skin Appearance) No Abnormality, Assessed -Temperature (Kisha-wound Skin No Abnormality Appearance) (Pt Warm) -Tenderness on Palpation (Kisha-wound Yes Skin Appearance) -Ulcer Cleansing Rinsed/ Irrigated with Saline -Foul Odor after Cleansing No -Anesthetic Used 5% Lidocaine Gel [Edema Assessment] -Lower Limb Edema Present Yes -Left Calf (cm) 46.2 -Left Ankle (cm) 23.5 WC - Nurse 2 - General Ulcer CM Notes Start: 09/21/19 09:58 Freq: Status: Active Protocol: Activity Type Activity Date Activity User E-Sign Co-Sign Detail Recorded Client Recorded Date Recorded By Document 09/28/19 10:24 [id number] 09/28/19 10:25 09/28/19 10:24 Wound Center Nurse 2 [Procedure/Treatment] #1 LLL medial -Time 10:24 -Correct Patient Yes -Correct Side, Site, Position Yes -Correct Procedure Yes -Procedure Performed Yes -Type of Procedure Debridement -Clinical Debridement Subcutaneous -Post Debridement Size (cm) - Length 5.6 -Post Debridement Size (cm) - Width 1.5 -Post Debridement Size (cm) - Depth 0.5 -Total Square Cm 8.40 -Wound/Ulcer Outcome Not Healed -Ulcer Cleansing Rinsed/ Irrigated with Saline -Foul Odor after Cleansing No -Bioengineered Tissue No -Bleeding Controlled with Pressure -Offloading No -Treatment Response Procedure Tolerated Well [See Physician Procedure note for Specifics] Pain Scale: 0-10 Numeric [Pain] -Is Patient Pain Free? Yes Musculoskeletal: No Tenderness to Palpation of Joints or Extremities Neurological: Neuro grossly intact Psych/Mental Status: Normal Affect, Appropriate Debridement Note Post-Debridement Measurements/Treatment WC - Nurse 2 - General Ulcer CM Notes Start: 09/21/19 09:58 Freq: Status: Active Protocol: Activity Type Activity Date Activity User E-Sign Co-Sign Detail Recorded Client Recorded Date Recorded By Document 09/21/19 10:20 [id number] 09/21/19 10:24 Document 09/28/19 10:24 [id number] 09/28/19 10:25 09/21/19 09/28/19 10:20 10:24 Wound Center Nurse 2 #1 [facility] medial -Time 10:21 10:24 -Correct Patient Yes Yes -Correct Side, Site, Position Yes Yes -Correct Procedure Yes Yes -Procedure Performed Yes Yes -Type of Procedure Debridement Debridement -Clinical Debridement Subcutaneous Subcutaneous -Post Debridement Size (cm) - Length 6.2 5.6 -Post Debridement Size (cm) - Width 1.4 1.5 -Post Debridement Size (cm) - Depth 0.5 0.5 -Total Square Cm 8.68 8.40 -Wound/Ulcer Outcome Not Healed Not Healed -Ulcer Cleansing Rinsed/ Rinsed/ Irrigated with Irrigated with Saline Saline -Foul Odor after Cleansing No No -Bioengineered Tissue No No -Bleeding Controlled with Pressure Pressure -Offloading No No -Treatment Response Procedure Procedure Tolerated Well Tolerated Well Pain Scale: 0-10 Numeric Is Patient Pain Free? Yes Yes Wound debrided: Medial leg ulcer Laterality: Left Type of Debridement: Excisional debridement Anesthesia Used: 5% Lidocaine Gel Depth: Down to and including healthy tissue, in the subcutaneous layer Percentage of wound debrided: 100 Instrument Used: 5mm curette Tissue Removed: Subcutaneous tissue and slough Severity: Fat Layer Exposed Amount of bleeding with debridement: Mild Bleeding Controlled with: Pressure Patient tolerated procedure well Assessment/Plan Active Problems Ulcer of left lower extremity (Chronic) 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) 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) on Methotrexate for Lupus Assessment: 1. Nonhealing fasciotomy ulcer left medial leg, skin grafted, with skin graft compromise. 2. Fasciotomy ulcer left lateral leg, skin grafted, with skin graft compromise that has healed. 3. Hematoma with compartment syndrome left leg s/p fasciotomies. 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 5. Lupus. 6. Immunocompromised state due to high risk medication, Methotrexate, for Lupus. Plan: Epifix placental connective tissue graft #8 was applied a few weeks ago. Wound care?she will complete the Santyl tube until complete and then will use moistened silver daily. She is tolerating the Spanda chief solution architect latex free compression well and it has helped to decrease the small irritations she has on her left lower leg. If she does not tolerate the Alexandra chief solution architect then she will use the tubigrip double layer wrap. The left lateral leg ulcer remains healed. Elevate left leg when sitting. Encouraged stronger compression than double tubigrip but patient is hesitant because it increases her anxiety. Compromised on using double tubigrip and then adding MENDEZ wrap at bed time. Depending on the healing of the Epifix, another wound culture may be done to see if antibiotics are needed. At the time of the surgery on 04/10/19, wound culture showed Enterobacter cloacae, Acinetobacter baumannii, Streptococcus agalactiae, and Anaerobic cocci. She was treated perioperatively with Levaquin and Augmentin. Prealbumin from 04/11/19 was 18.8. Encourage nutritional supplementation wit protein to help the healing process. Followup one week. [id number]: [id number] Jessica subq tissue 20 sq cm/<
[2019-10-05 09:57] VITALS: BP 140/88; PULSE 95; RESP 16; TEMP 36.4; BMI 52.2
--- NOTE | 2019-10-05 14:29 | PN.PCM_ITS ---
(1) Ulcer of left lower extremity Status: Chronic Code(s): L97.929 - Non-pressure chronic ulcer of unspecified part of left lower leg with unspecified severity (2) Skin graft disorder Status: Chronic Code(s): T86.829 - Unspecified complication of skin graft (allograft) (autograft) (3) Other complications of skin graft (allograft) (autograft) Status: Chronic Code(s): T86.828 - Other complications of skin graft (allograft) (autograft) (4) Immunocompromised state due to drug therapy Status: Chronic Code(s): Z79.899 - Other penitentiary (current) drug therapy Comment: on Methotrexate for Lupus Type of Wound Date of Service: 10/05/19 Chief Complaint: Nonhealing fasciotomy ulcer left medial leg with skin graft compromise. History of Wound: Surgery 04/10/19 - 1. Surgical preparation left medial leg with excisional debridement nonhealing fasciotomy ulcer and placement of AmnioFill placental connective tissue powder and STSG reconstruction from left flank (48 cm2). 2. Surgical preparation left lateral leg with excisional debridement nonhealing fasciotomy ulcer and placement of AmnioFill placental connective tissue powder and STSG reconstruction from left flank (20 cm2). She developed some skin graft compromise that necessitated HBO treatments to try and salvage the grafts. The left lateral leg skin graft has healed. The left medial leg skin graft ulcer persists. She has had 8 applications of Epifix thus far. Have placed on hold to try to improve her wound bed base. She had been using Santyl but she is not able to get a refill for a month. She will do moistened silver with Adaptic daily. She is using spandagrip wrap for compression. She appears to have more edema on her left calf, so will give her a smaller span to binding folder machine wrap for compression. She is tolerating this Spandegrip much better than she did the Tubigrip. at the time of the surgery on 04/10/19, wound culture showed Enterobacter cloacae, Acinetobacter baumannii, Streptococcus agalactiae, and Anaerobic cocci. She was treated perioperatively with Levaquin and Augmentin. Prealbumin from 04/11/19 was 18.8. Encourage nutritional supplementation with protein to help the healing process. She underwent 18 out of 20 HBO treatments and stopped due to anxiety. Today she denies fever. Her appetite is ok. Progress of Wound: Wound bed is stable. - Physical Exam Vital Signs Temp Pulse Resp BP 97.5 F L 95 16 140/88 H 10/05/19 09:57 10/05/19 09:57 10/05/19 09:57 10/05/19 09:57 General: Alert, Oriented x3 HEENT: Atraumatic Oral: Moist Mucosa Lungs: Normal air movement Cardiovascular: Regular rate Abdomen: Obese Extremities: Capillary Refill Less than 3 Seconds, Edema - Lower legs, left lower leg appears little bit more edematous today than normal. She denies any sort of calf pain Skin: Ulcer/ Wound - Left medial lower leg ulcer that continues to have significant amount of biofilm. Wound Measurements and Assessment WC - Nurse 1 - General Ulcer Measurement Start: 09/21/19 09:58 Freq: Status: Active Protocol: Activity Type Activity Date Activity User E-Sign Co-Sign Detail Recorded Client Recorded Date Recorded By Document 10/05/19 09:57 [facility] [id number] 10/05/19 10:04 [facility] 10/05/19 09:57 Wound Center Nurse 1 [Ulcer Assessment] #1 LLL medial -Combined with other wound No -Current Size (cm) - Length 6.2 -Current Size (cm) - Width 1.1 -Current Size (cm) - Depth 0.4 -Total Square Cm 6.82 -Photo Taken No -Epithelialization None Present -Tunneling No -Undermining/Tunneling No -Circular Undermining No -Exudate Amt Small -Exudate Type Serous -Wound Margin Distinct, Outline Attached -Granulation Amt Small (1-33%) -Granulation Quality Red -Slough/Fibrin Yes -Necrosis Amt Medium (34-66%) -Necrotic Tissue Type Adherent Slough -Texture (Kisha-wound Skin Appearance) Assessed, Scarring -Moisture (Kisha-wound Skin Appearance Assessed,Dry/ ) Scaly -Color (Kisha-wound Skin Appearance) Assessed -Temperature (Kisha-wound Skin No Abnormality Appearance) (Pt Warm) -Tenderness on Palpation (Kisha-wound No Skin Appearance) -Ulcer Cleansing Rinsed/ Irrigated with Saline -Foul Odor after Cleansing No -Anesthetic Used 4% Lidocaine Solution [Edema Assessment] -Lower Limb Edema Present Yes -Left Calf (cm) 46.1 -Left Ankle (cm) 23.5 WC - Nurse 2 - General Ulcer CM Notes Start: 09/21/19 09:58 Freq: Status: Active Protocol: Activity Type Activity Date Activity User E-Sign Co-Sign Detail Recorded Client Recorded Date Recorded By Document 10/05/19 10:25 [id number] 10/05/19 10:26 10/05/19 10:25 Wound Center Nurse 2 [Procedure/Treatment] #1 LLL medial -Time 10:25 -Correct Patient Yes -Correct Side, Site, Position Yes -Correct Procedure Yes -Procedure Performed Yes -Type of Procedure Debridement -Clinical Debridement Subcutaneous -Post Debridement Size (cm) - Length 6.0 -Post Debridement Size (cm) - Width 1.3 -Post Debridement Size (cm) - Depth 0.4 -Total Square Cm 7.80 -Wound/Ulcer Outcome Not Healed -Ulcer Cleansing Rinsed/ Irrigated with Saline -Foul Odor after Cleansing No -Bioengineered Tissue No -Bleeding Controlled with Pressure -Offloading No -Treatment Response Procedure Tolerated Well [See Physician Procedure note for Specifics] Pain Scale: 0-10 Numeric [Pain] -Is Patient Pain Free? Yes Musculoskeletal: Tenderness Neurological: Neuro grossly intact Psych/Mental Status: Normal Affect, Appropriate Debridement Note Post-Debridement Measurements/Treatment - Nurse 2 - General Ulcer CM Notes Start: 09/21/19 09:58 Freq: Status: Active Protocol: Activity Type Activity Date Activity User E-Sign Co-Sign Detail Recorded Client Recorded Date Recorded By Document 09/21/19 10:20 [id number] 09/21/19 10:24 Document 09/28/19 10:24 [id number] 09/28/19 10:25 Document 10/05/19 10:25 [id number] 10/05/19 10:26 09/21/19 09/28/19 10/05/19 10:20 10:24 10:25 Wound Center Nurse 2 #1 LLL medial -Time 10:21 10:24 10:25 -Correct Patient Yes Yes Yes -Correct Side, Site, Position Yes Yes Yes -Correct Procedure Yes Yes Yes -Procedure Performed Yes Yes Yes -Type of Procedure Debridement Debridement Debridement -Clinical Debridement Subcutaneous Subcutaneous Subcutaneous -Post Debridement Size (cm) - Length 6.2 5.6 6.0 -Post Debridement Size (cm) - Width 1.4 1.5 1.3 -Post Debridement Size (cm) - Depth 0.5 0.5 0.4 -Total Square Cm 8.68 8.40 7.80 -Wound/Ulcer Outcome Not Healed Not Healed Not Healed -Ulcer Cleansing Rinsed/ Rinsed/ Rinsed/ Irrigated with Irrigated with Irrigated with Saline Saline Saline -Foul Odor after Cleansing No No No -Bioengineered Tissue No No No -Bleeding Controlled with Pressure Pressure Pressure -Offloading No No No -Treatment Response Procedure Procedure Procedure Tolerated Well Tolerated Well Tolerated Well Pain Scale: 0-10 Numeric Is Patient Pain Free? Yes Yes Yes Wound debrided: Medial lower leg ulcer Laterality: Left Type of Debridement: Excisional debridement Anesthesia Used: 5% Lidocaine Gel Depth: Down to and including healthy tissue, in the subcutaneous layer Percentage of wound debrided: 100 Instrument Used: 5mm curette Tissue Removed: Subcutaneous tissue and slough Severity: Fat Layer Exposed Amount of bleeding with debridement: Mild Bleeding Controlled with: Pressure Patient tolerated procedure well Assessment/Plan Assessment: 1. Nonhealing fasciotomy ulcer left medial leg, skin grafted, with skin graft compromise. 2. Fasciotomy ulcer left lateral leg, skin grafted, with skin graft compromise that has healed. 3. Hematoma with compartment syndrome left leg s/p fasciotomies. 4. 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 5. Lupus. 6. Immunocompromised state due to high risk medication, Methotrexate, for Lupus. Plan: She had 8 applications of Epifix placental connective tissue graft. Wound care?she will completed the Santyl. She will use moistened silver covered by Adaptic daily. She is tolerating the Spanda binding folder machine latex free compression well and it has helped to decrease the small irritations she has on her left lower leg. She has an increase in edema on her left lower leg, will decrease the size of her spanda binding folder machine compression stocking to see if this will help with the edema. The left lateral leg ulcer remains healed. Elevate left leg when sitting. Encouraged stronger compression than double tubigrip but patient is hesitant because it increases her anxiety. Compromised on using double tubigrip and then adding MENDEZ wrap at bed time. At the time of the surgery on 04/10/19, wound culture showed Enterobacter cloacae, Acinetobacter baumannii, Streptococcus agalactiae, and Anaerobic cocci. She was treated perioperatively with Levaquin and Augmentin. Prealbumin from 04/11/19 was 18.8. Encourage nutritional supplementation wit protein to help the healing process. Followup two weeks. [id number]: [id number] Global Visit
[2019-10-19 08:55] VITALS: BP 109/89; PULSE 110; RESP 18; TEMP 35.4; BMI 52.2
--- NOTE | 2019-10-19 09:46 | PCM.WC.PN ---
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 History of Wound: Surgery 04/10/19 - 1. Surgical preparation left medial leg with excisional debridement nonhealing fasciotomy ulcer and placement of AmnioFill placental connective tissue powder and STSG reconstruction from left flank (48 cm2). 2. Surgical preparation left lateral leg with excisional debridement nonhealing fasciotomy ulcer and placement of AmnioFill placental connective tissue powder and STSG reconstruction from left flank (20 cm2). She developed some skin graft compromise that necessitated HBO treatments to try and salvage the grafts. The left lateral leg skin graft has healed. The left medial leg skin graft ulcer persists. She has had 8 applications of Epifix thus far. Have placed on hold to try to improve her wound bed base. She had been using Santyl but she is not able to get a refill for a month. She will do moistened silver with Adaptic daily. She is using spandagrip wrap for compression. She appears to have more edema on her left calf, so will give her a smaller span to ladies locker room attendant wrap for compression. She is tolerating this Spandegrip much better than she did the Tubigrip. at the time of the surgery on 04/10/19, wound culture showed Enterobacter cloacae, Acinetobacter baumannii, Streptococcus agalactiae, and Anaerobic cocci. She was treated perioperatively with Levaquin and Augmentin. Prealbumin from 04/11/19 was 18.8. Encourage nutritional supplementation with protein to help the healing process. She underwent 18 out of 20 HBO treatments and stopped due to anxiety. Today she denies fever. Her appetite is ok. Progress of Wound: Wound bed is stable. - Physical Exam Vital Signs Temp Pulse Resp BP 95.7 F L 110 H 18 109/89 H 10/19/19 08:55 10/19/19 08:55 10/19/19 08:55 10/19/19 08:55 General: Alert, Oriented x3, Cooperative HEENT: Atraumatic Oral: Moist Mucosa Lungs: Normal air movement Cardiovascular: Regular rate Abdomen: Bowel Sounds Present Extremities: Capillary Refill Less than 3 Seconds, Edema Skin: Ulcer/ Wound - left medial lower leg ulcer Wound Measurements and Assessment WC - Nurse 1 - General Ulcer Measurement Start: 09/21/19 09:58 Freq: Status: Active Protocol: Activity Type Activity Date Activity User E-Sign Co-Sign Detail Recorded Client Recorded Date Recorded By Document 10/19/19 08:55 RB [id number] 10/19/19 08:57 RB 10/19/19 08:55 Wound Center Nurse 1 [Ulcer Assessment] #1 LLL medial -Combined with other wound No -Current Size (cm) - Length 5.5 -Current Size (cm) - Width 1.3 -Current Size (cm) - Depth 0.3 -Total Square Cm 7.15 -Photo Taken No -Tunneling No -Undermining/Tunneling No -Circular Undermining No -Exudate Amt Medium -Exudate Type Serosanguineous -Wound Margin Thickened & Rolled Under -Granulation Amt Medium (34-66%) -Granulation Quality [place] -Slough/Fibrin Yes -Necrosis Amt Small (1-33%) -Necrotic Tissue Type Adherent Slough -Structure Exposed N/A -Texture (Kisha-wound Skin Appearance) Assessed, Scarring -Moisture (Kisha-wound Skin Appearance Assessed ) -Color (Kisha-wound Skin Appearance) Assessed -Temperature (Kisha-wound Skin No Abnormality Appearance) (Pt Warm) -Tenderness on Palpation (Kisha-wound No Skin Appearance) -Ulcer Cleansing Wound Cleanser -Foul Odor after Cleansing No -Anesthetic Used 4% Lidocaine Solution [Edema Assessment] -Lower Limb Edema Present Yes -Left Calf (cm) 43 -Left Ankle (cm) 23.2 WC - Nurse 2 - General Ulcer CM Notes Start: 09/21/19 09:58 Freq: Status: Active Protocol: Activity Type Activity Date Activity User E-Sign Co-Sign Detail Recorded Client Recorded Date Recorded By Document 10/19/19 09:20 MW [id number] 10/19/19 09:21 MW 10/19/19 09:20 Wound Center Nurse 2 [Procedure/Treatment] #1 LLL medial -Time 09:21 -Correct Patient Yes -Correct Side, Site, Position Yes -Correct Procedure Yes -Procedure Performed Yes -Type of Procedure Debridement -Clinical Debridement Subcutaneous -Post Debridement Size (cm) - Length 6.3 -Post Debridement Size (cm) - Width 1.2 -Post Debridement Size (cm) - Depth 0.4 -Total Square Cm 7.56 -Wound/Ulcer Outcome Not Healed -Ulcer Cleansing Rinsed/ Irrigated with Saline -Foul Odor after Cleansing No -Bioengineered Tissue No -Bleeding Controlled with Pressure -Offloading No -Treatment Response Procedure Tolerated Well [See Physician Procedure note for Specifics] Pain Scale: 0-10 Numeric [Pain] -Is Patient Pain Free? Yes Musculoskeletal: No Tenderness to Palpation of Joints or Extremities Neurological: Neuro grossly intact Psych/Mental Status: Normal Affect, Appropriate Debridement Note Post-Debridement Measurements/Treatment WC - Nurse 2 - General Ulcer CM Notes Start: 09/21/19 09:58 Freq: Status: Active Protocol: Activity Type Activity Date Activity User E-Sign Co-Sign Detail Recorded Client Recorded Date Recorded By Document 09/21/19 10:20 [id number] 09/21/19 10:24 Document 09/28/19 10:24 [id number] 09/28/19 10:25 Document 10/05/19 10:25 [id number] 10/05/19 10:26 Document 10/19/19 09:20 MW [id number] 10/19/19 09:21 MW 09/21/19 09/28/19 10/05/19 10:20 10:24 10:25 Wound Center Nurse 2 #1 LLL medial -Time 10:21 10:24 10:25 -Correct Patient Yes Yes Yes -Correct Side, Site, Position Yes Yes Yes -Correct Procedure Yes Yes Yes -Procedure Performed Yes Yes Yes -Type of Procedure Debridement Debridement Debridement -Clinical Debridement Subcutaneous Subcutaneous Subcutaneous -Post Debridement Size (cm) - Length 6.2 5.6 6.0 -Post Debridement Size (cm) - Width 1.4 1.5 1.3 -Post Debridement Size (cm) - Depth 0.5 0.5 0.4 -Total Square Cm 8.68 8.40 7.80 -Wound/Ulcer Outcome Not Healed Not Healed Not Healed -Ulcer Cleansing Rinsed/ Rinsed/ Rinsed/ Irrigated with Irrigated with Irrigated with Saline Saline Saline -Foul Odor after Cleansing No No No -Bioengineered Tissue No No No -Bleeding Controlled with Pressure Pressure Pressure -Offloading No No No -Treatment Response Procedure Procedure Procedure Tolerated Well Tolerated Well Tolerated Well Pain Scale: 0-10 Numeric Is Patient Pain Free? Yes Yes Yes 10/19/19 09:20 Wound Center Nurse 2 #1 LLL medial -Time 09:21 -Correct Patient Yes -Correct Side, Site, Position Yes -Correct Procedure Yes -Procedure Performed Yes -Type of Procedure Debridement -Clinical Debridement Subcutaneous -Post Debridement Size (cm) - Length 6.3 -Post Debridement Size (cm) - Width 1.2 -Post Debridement Size (cm) - Depth 0.4 -Total Square Cm 7.56 -Wound/Ulcer Outcome Not Healed -Ulcer Cleansing Rinsed/ Irrigated with Saline -Foul Odor after Cleansing No -Bioengineered Tissue No -Bleeding Controlled with Pressure -Offloading No -Treatment Response Procedure Tolerated Well Pain Scale: 0-10 Numeric Is Patient Pain Free? Yes Wound debrided: medial lower leg ulcer Laterality: Left Type of Debridement: Excisional debridement Anesthesia Used: 5% Lidocaine Gel Depth: Down to and including healthy tissue, in the subcutaneous layer Percentage of wound debrided: 100 Instrument Used: 5mm curette Tissue Removed: Subcutaneous tissue and slough Severity: Fat Layer Exposed Amount of bleeding with debridement: Mild Bleeding Controlled with: Pressure Patient tolerated procedure well Assessment/Plan Active Problems Ulcer of left lower extremity (Chronic) 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) 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) on Methotrexate for Lupus Assessment: 1. Nonhealing fasciotomy ulcer left medial leg, skin grafted, with skin graft compromise. 2. Fasciotomy ulcer left lateral leg, skin grafted, with skin graft compromise that has healed. 3. Hematoma with compartment syndrome left leg s/p fasciotomies. 4. alf use of anticoagulation. 5. Lupus. 6. Immunocompromised state due to high risk medication, Methotrexate, for Lupus. Plan: She had 8 applications of Epifix placental connective tissue graft. Wound care is moistened silver covered by Adaptic daily. She is tolerating the Spanda ladies locker room attendant latex free compression well and it has helped to decrease the small irritations she has on her left lower leg. She has an increase in edema on her left lower leg, will decrease the size of her spanda ladies locker room attendant compression stocking to see if this will help with the edema. The left lateral leg ulcer remains healed. Elevate left leg when sitting. Encouraged stronger compression than double tubigrip but patient is hesitant because it increases her anxiety. Compromised on using double tubigrip and then adding MENDEZ wrap at bed time. At the time of the surgery on 04/10/19, wound culture showed Enterobacter cloacae, Acinetobacter baumannii, Streptococcus agalactiae, and Anaerobic cocci. She was treated perioperatively with Levaquin and Augmentin. Prealbumin from 04/11/19 was 18.8. Encourage nutritional supplementation wit protein to help the healing process. Followup two weeks. [id number]: [id number] Jessica subq tissue 20 sq cm/<
== END 2019-10-20 23:59 ==
LOC: WC 08:30
PROVIDERS: Family Provider Family Medicine; PCP Family Medicine; Referring Provider Surgery; Visit Provider Surgery
DX: T86.828 Other complications of skin graft (allograft) (autograft) (principal); Y83.8 Other surgical procedures as the cause of abnormal reaction of the patient, or of later complication, without mention of misadventure at the time of the procedure; T79.A22S Traumatic compartment syndrome of left lower extremity, sequela; X58.XXXS Exposure to other specified factors, sequela; M32.9 Systemic lupus erythematosus, unspecified; F41.9 Anxiety disorder, unspecified; L97.822 Non-pressure chronic ulcer of other part of left lower leg with fat layer exposed; Z79.899 Other long term (current) drug therapy
CPT/HCPCS: 11042

== ENCOUNTER 2019-11-16 08:30 | Outpatient (RCR) | payer MEDICAID, SELFPAY ==
[2019-10-21 00:26] VITALS: BP 109/89; PULSE 110; RESP 18; TEMP 35.4
--- NOTE | 2019-11-02 12:54 | PCM.WC.PN ---
(1) Ulcer of left lower extremity Status: Chronic Current Visit: Yes Code(s): L97.929 - Non-pressure chronic ulcer of unspecified part of left lower leg with unspecified severity (2) Skin graft disorder Status: Chronic Current Visit: Yes Code(s): T86.829 - Unspecified complication of skin graft (allograft) (autograft) (3) Other complications of skin graft (allograft) (autograft) Status: Chronic Current Visit: Yes Code(s): T86.828 - Other complications of skin graft (allograft) (autograft) (4) Lupus Status: Chronic Current Visit: Yes Code(s): M32.9 - Systemic lupus erythematosus, unspecified (5) Immunocompromised state due to drug therapy Status: Chronic Current Visit: Yes Code(s): Z79.899 - Other long-term (current) drug therapy Comment: on Methotrexate for Lupus Type of Wound Date of Service: 11/02/19 - Telehealth visit Chief Complaint: Nonhealing fasciotomy ulcer left medial leg with skin graft compromise. History of Wound: Surgery 04/10/19 - 1. Surgical preparation left medial leg with excisional debridement nonhealing fasciotomy ulcer and placement of AmnioFill placental connective tissue powder and STSG reconstruction from left flank (48 cm2). 2. Surgical preparation left lateral leg with excisional debridement nonhealing fasciotomy ulcer and placement of AmnioFill placental connective tissue powder and STSG reconstruction from left flank (20 cm2). She developed some skin graft compromise that necessitated HBO treatments to try and salvage the grafts. The left lateral leg skin graft has healed. The left medial leg skin graft ulcer persists. She has had 8 applications of Epifix thus far. Have placed on hold to try to improve her wound bed base. Wound Care- She will do moistened silver with Adaptic daily. She is using spandagrip wrap for compression. She is tolerating this Spandegrip much better than she did the Tubigrip. at the time of the surgery on 04/10/19, wound culture showed Enterobacter cloacae, Acinetobacter baumannii, Streptococcus agalactiae, and Anaerobic cocci. She was treated perioperatively with Levaquin and Augmentin. Prealbumin from 04/11/19 was 18.8. Encourage nutritional supplementation with protein to help the healing process. She underwent 18 out of 20 HBO treatments and stopped due to anxiety. Today she denies fever. Her appetite is ok. Progress of Wound: Wound bed is stable. - Physical Exam Vital Signs Temp Pulse Resp BP 95.7 F L 110 H 18 109/89 H 10/21/19 00:26 10/21/19 00:26 10/21/19 00:26 10/21/19 00:26 General: Alert, Oriented x3, Cooperative HEENT: Atraumatic Lungs: Normal air movement - No SOB with speaking. Able to easily speak in full sentences without difficulty. Skin: Ulcer/ Wound - Left medial lower leg ulcer. Difficult to see ulcer well due to the connection of the video quality of the telehealth visit. Musculoskeletal: No Tenderness to Palpation of Joints or Extremities Neurological: Neuro grossly intact Psych/Mental Status: Normal Affect, Appropriate Debridement Note No debridement was completed today Assessment/Plan Active Problems Ulcer of left lower extremity (Chronic) 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) Lupus (Chronic) 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) on Methotrexate for Lupus Assessment: 1. Nonhealing fasciotomy ulcer left medial leg, skin grafted, with skin graft compromise. 2. Fasciotomy ulcer left lateral leg, skin grafted, with skin graft compromise that has healed. 3. Hematoma with compartment syndrome left leg s/p fasciotomies. 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 5. Lupus. 6. Immunocompromised state due to high risk medication, Methotrexate, for Lupus. Plan: Telehealth Evaluation during the COVID-19 National Emergency. Obtained verbal consent for the video encounter through . The only change in medication was that her PCP increased her Trazadone to 450 mg. Wound care is moistened silver covered by adaptic. Spandegrip for compression. Patient measured her own wound and states it was 6.5 x 2 cm. She would like to be seen in person at her next visit in two weeks. She states she needs more adaptic and dressing supplies. Time spent with patient was 6 minutes. Planning and documenting 10 minutes for a total of 16 minutes. She had 8 applications of Epifix placental connective tissue graft. Wound care is moistened silver covered by Adaptic daily. She is tolerating the Spanda education and training manager latex free compression well and it has helped to decrease the small irritations she has on her left lower leg. The left lateral leg ulcer remains healed. Elevate left leg when sitting. Encouraged stronger compression than double tubigrip but patient is hesitant because it increases her anxiety. Compromised on using double tubigrip and then adding MENDEZ wrap at bed time. At the time of the surgery on 04/10/19, wound culture showed Enterobacter cloacae, Acinetobacter baumannii, Streptococcus agalactiae, and Anaerobic cocci. She was treated perioperatively with Levaquin and Augmentin. Prealbumin from 04/11/19 was 18.8. Encourage nutritional supplementation wit protein to help the healing process. Followup two weeks. - TeleMed TeleMed: TeleMed Modifer 95 Office Visits / Consults: [id number] OV L3 Est
[2019-11-16 08:42] VITALS: BP 136/80; PULSE 99; RESP 18; TEMP 36.5; BMI 52.2
--- NOTE | 2019-11-16 11:41 | PCM.WC.PN ---
(1) Ulcer of left lower extremity Status: Chronic Code(s): L97.929 - Non-pressure chronic ulcer of unspecified part of left lower leg with unspecified severity (2) Bilateral lower extremity edema Status: Chronic Code(s): R60.0 - Localized edema (3) Skin graft disorder Status: Chronic Code(s): T86.829 - Unspecified complication of skin graft (allograft) (autograft) (4) Other complications of skin graft (allograft) (autograft) Status: Chronic Code(s): T86.828 - Other complications of skin graft (allograft) (autograft) (5) Lupus Status: Chronic Code(s): M32.9 - Systemic lupus erythematosus, unspecified (6) Immunocompromised state due to drug therapy Status: Chronic 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 History of Wound: Surgery 04/10/19 - 1. Surgical preparation left medial leg with excisional debridement nonhealing fasciotomy ulcer and placement of AmnioFill placental connective tissue powder and STSG reconstruction from left flank (48 cm2). 2. Surgical preparation left lateral leg with excisional debridement nonhealing fasciotomy ulcer and placement of AmnioFill placental connective tissue powder and STSG reconstruction from left flank (20 cm2). She developed some skin graft compromise that necessitated HBO treatments to try and salvage the grafts. The left lateral leg skin graft has healed. The left medial leg skin graft ulcer persists. She has had 8 applications of Epifix thus far. Have placed on hold to try to improve her wound bed base. Wound Care- She will do moistened silver with Adaptic daily. She is using spandagrip wrap for compression. She is tolerating this Spandegrip much better than she did the Tubigrip. at the time of the surgery on 04/10/19, wound culture showed Enterobacter cloacae, Acinetobacter baumannii, Streptococcus agalactiae, and Anaerobic cocci. She was treated perioperatively with Levaquin and Augmentin. Prealbumin from 04/11/19 was 18.8. Encourage nutritional supplementation with protein to help the healing process. She underwent 18 out of 20 HBO treatments and stopped due to anxiety. Today she denies fever. Her appetite is ok. Progress of Wound: Wound bed is stable. - Physical Exam Vital Signs Temp Pulse Resp BP 97.7 F L 99 18 136/80 H 11/16/19 08:42 11/16/19 08:42 11/16/19 08:42 11/16/19 08:42 General: Alert, Oriented x3 HEENT: Atraumatic Oral: Moist Mucosa Lungs: Normal air movement Cardiovascular: Regular rate Abdomen: Obese Extremities: Capillary Refill Less than 3 Seconds, Edema Skin: Ulcer/ Wound - Left medial lower leg ulcer. Wound Measurements and Assessment WC - Nurse 1 - General Ulcer Measurement Start: 11/02/19 12:37 Freq: Status: Active Protocol: Activity Type Activity Date Activity User E-Sign Co-Sign Detail Recorded Client Recorded Date Recorded By Document 11/16/19 08:42 IN [id number] 11/16/19 08:47 IN 11/16/19 08:42 Wound Center Nurse 1 [Ulcer Assessment] #1 LLL medial -Current Size (cm) - Length 7.0 -Current Size (cm) - Width 1.5 -Current Size (cm) - Depth 0.2 -Total Square Cm 10.50 -Exudate Amt Small -Exudate Type Serosanguineous -Wound Margin Flat & Intact -Granulation Amt Large (67-100%) -Granulation Quality Pale,[place],Red -Slough/Fibrin Yes -Necrosis Amt Small (1-33%) -Necrotic Tissue Type Adherent Slough -Texture (Kisha-wound Skin Appearance) Assessed -Moisture (Kisha-wound Skin Appearance Assessed, ) Maceration -Color (Kisha-wound Skin Appearance) Assessed, Erythema -Temperature (Kisha-wound Skin No Abnormality Appearance) (Pt Warm) -Tenderness on Palpation (Kisha-wound No Skin Appearance) -Ulcer Cleansing Rinsed/ Irrigated with Saline -Foul Odor after Cleansing No -Anesthetic Used 4% Lidocaine Solution [Edema Assessment] -Left Calf (cm) 46 -Left Ankle (cm) 23.5 - Nurse 2 - General Ulcer CM Notes Start: 11/02/19 12:37 Freq: Status: Active Protocol: Activity Type Activity Date Activity User E-Sign Co-Sign Detail Recorded Client Recorded Date Recorded By Document 11/16/19 09:06 [id number] 11/16/19 09:07 11/16/19 09:06 Wound Center Nurse 2 [Procedure/Treatment] #1 [facility] medial -Time 09:06 -Correct Patient Yes -Correct Side, Site, Position Yes -Correct Procedure Yes -Procedure Performed Yes -Type of Procedure Debridement -Clinical Debridement Subcutaneous -Post Debridement Size (cm) - Length 6.2 -Post Debridement Size (cm) - Width 1.4 -Post Debridement Size (cm) - Depth 0.5 -Total Square Cm 8.68 -Wound/Ulcer Outcome Not Healed -Ulcer Cleansing Rinsed/ Irrigated with Saline -Foul Odor after Cleansing No -Bioengineered Tissue No -Bleeding Controlled with Pressure -Offloading No -Treatment Response Procedure Tolerated Well [See Physician Procedure note for Specifics] Pain Scale: 0-10 Numeric [Pain] -Is Patient Pain Free? Yes Musculoskeletal: No Tenderness to Palpation of Joints or Extremities Neurological: Neuro grossly intact Psych/Mental Status: Normal Affect, Appropriate Debridement Note Post-Debridement Measurements/Treatment WC - Nurse 2 - General Ulcer CM Notes Start: 11/02/19 12:37 Freq: Status: Active Protocol: Activity Type Activity Date Activity User E-Sign Co-Sign Detail Recorded Client Recorded Date Recorded By Document 11/16/19 09:06 [id number] 11/16/19 09:07 11/16/19 09:06 Wound Center Nurse 2 #1 [facility] medial -Time 09:06 -Correct Patient Yes -Correct Side, Site, Position Yes -Correct Procedure Yes -Procedure Performed Yes -Type of Procedure Debridement -Clinical Debridement Subcutaneous -Post Debridement Size (cm) - Length 6.2 -Post Debridement Size (cm) - Width 1.4 -Post Debridement Size (cm) - Depth 0.5 -Total Square Cm 8.68 -Wound/Ulcer Outcome Not Healed -Ulcer Cleansing Rinsed/ Irrigated with Saline -Foul Odor after Cleansing No -Bioengineered Tissue No -Bleeding Controlled with Pressure -Offloading No -Treatment Response Procedure Tolerated Well Pain Scale: 0-10 Numeric Is Patient Pain Free? Yes Wound debrided: Medial leg ulcer Laterality: Left Type of Debridement: Excisional debridement Anesthesia Used: 5% Lidocaine Gel Depth: Down to and including healthy tissue, in the subcutaneous layer Percentage of wound debrided: 100 Instrument Used: 5mm curette Tissue Removed: Subcutaneous tissue and slough Severity: Fat Layer Exposed Amount of bleeding with debridement: Mild Bleeding Controlled with: Pressure Patient tolerated procedure well Assessment/Plan Assessment: 1. Nonhealing fasciotomy ulcer left medial leg, skin grafted, with skin graft compromise. 2. Fasciotomy ulcer left lateral leg, skin grafted, with skin graft compromise that has healed. 3. Hematoma with compartment syndrome left leg s/p fasciotomies. 4. alf use of anticoagulation. 5. Lupus. 6. Immunocompromised state due to high risk medication, Methotrexate, for Lupus. Plan: Patient was evaluated in the wound center today and obtained a subcutaneous debridement which she tolerated it well. Wound care is moistened silver covered by adaptic. She is not showing much improvement most likely because of her edema. She wears Spandegrip for compression, which is not enough so will apply MENDEZ wrap in addition to the Spandigrip. Had an extended discussion with patient about the importance of compression and offered 3M2 layer wrap which the patient refused because it makes her anxiety increase. She had 8 applications of Epifix placental connective tissue graft. Wound care is moistened silver covered by Adaptic daily. The left lateral leg ulcer remains healed. Elevate left leg when sitting. At the time of the surgery on 04/10/19, wound culture showed Enterobacter cloacae, Acinetobacter baumannii, Streptococcus agalactiae, and Anaerobic cocci. She was treated perioperatively with Levaquin and Augmentin. Prealbumin from 04/11/19 was 18.8. Encourage nutritional supplementation wit protein to help the healing process. Followup two weeks. [id number]: [id number] Jessica subq tissue 20 sq cm/<
== END 2019-11-19 23:59 ==
LOC: WC 08:30
PROVIDERS: Family Provider Family Medicine; PCP Family Medicine; Referring Provider Surgery; Visit Provider Surgery
DX: T86.828 Other complications of skin graft (allograft) (autograft) (principal); Y83.8 Other surgical procedures as the cause of abnormal reaction of the patient, or of later complication, without mention of misadventure at the time of the procedure; L97.822 Non-pressure chronic ulcer of other part of left lower leg with fat layer exposed; T79.A22S Traumatic compartment syndrome of left lower extremity, sequela; X58.XXXS Exposure to other specified factors, sequela; M32.9 Systemic lupus erythematosus, unspecified; R60.0 Localized edema; F41.9 Anxiety disorder, unspecified; Z79.01 Long term (current) use of anticoagulants; Z79.899 Other long term (current) drug therapy
CPT/HCPCS: 11042

== ENCOUNTER 2019-12-07 09:30 | Outpatient (RCR) | payer MEDICAID, SELFPAY ==
[2019-11-20 00:09] VITALS: BP 136/80; PULSE 99; RESP 18; TEMP 36.5
[2019-11-30 09:02] VITALS: BP 147/76; PULSE 112; RESP 18; TEMP 36.8; BMI 52.2
--- NOTE | 2019-11-30 13:04 | PCM.WC.PN ---
(1) Ulcer of left lower extremity with fat layer exposed Status: Chronic Code(s): L97.922 - Non-pressure chronic ulcer of unspecified part of left lower leg with fat layer exposed (2) Bilateral lower extremity edema Status: Chronic Code(s): R60.0 - Localized edema (3) Skin graft disorder Status: Chronic Code(s): T86.829 - Unspecified complication of skin graft (allograft) (autograft) (4) Other complications of skin graft (allograft) (autograft) Status: Chronic Code(s): T86.828 - Other complications of skin graft (allograft) (autograft) (5) Lupus Status: Chronic Code(s): M32.9 - Systemic lupus erythematosus, unspecified (6) Immunocompromised 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 History of Wound: Surgery 04/10/19 - 1. Surgical preparation left medial leg with excisional debridement nonhealing fasciotomy ulcer and placement of AmnioFill placental connective tissue powder and STSG reconstruction from left flank (48 cm2). 2. Surgical preparation left lateral leg with excisional debridement nonhealing fasciotomy ulcer and placement of AmnioFill placental connective tissue powder and STSG reconstruction from left flank (20 cm2). She developed some skin graft compromise that necessitated HBO treatments to try and salvage the grafts. The left lateral leg skin graft has healed. The left medial leg skin graft ulcer persists. She has had 8 applications of Epifix thus far. Have placed on hold to try to improve her wound bed base. Wound Care- She will do moistened silver with Adaptic daily. She is using spandagrip wrap for compression. She is tolerating this Spandegrip much better than she did the Tubigrip. at the time of the surgery on 04/10/19, wound culture showed Enterobacter cloacae, Acinetobacter baumannii, Streptococcus agalactiae, and Anaerobic cocci. She was treated perioperatively with Levaquin and Augmentin. Prealbumin from 04/11/19 was 18.8. Encourage nutritional supplementation with protein to help the healing process. She underwent 18 out of 20 HBO treatments and stopped due to anxiety. Today she denies fever. Her appetite is ok. Progress of Wound: Ulcer has mild improvement. - Physical Exam Vital Signs Temp Pulse Resp BP 98.2 F 112 H 18 147/76 H 11/30/19 09:02 11/30/19 09:02 11/30/19 09:02 11/30/19 09:02 General: Alert, Oriented x3 HEENT: Atraumatic Oral: Moist Mucosa Lungs: Normal air movement Cardiovascular: Regular rate Abdomen: Obese Extremities: Capillary Refill Less than 3 Seconds, Edema Skin: Ulcer/ Wound - Left medial lower leg ulcer Wound Measurements and Assessment WC - Nurse 1 - General Ulcer Measurement Start: 11/30/19 09:01 Freq: Status: Active Protocol: Activity Type Activity Date Activity User E-Sign Co-Sign Detail Recorded Client Recorded Date Recorded By Document 11/30/19 09:02 MW [id number] 11/30/19 09:08 MW 11/30/19 09:02 Wound Center Nurse 1 [Ulcer Assessment] #1 LLL medial -Combined with other wound No -Current Size (cm) - Length 5.5 -Current Size (cm) - Width 0.8 -Current Size (cm) - Depth 0.2 -Total Square Cm 4.40 -Date of Last Picture (Recall this 11/30/19 field) -Photo Taken Yes -Epithelialization Small 1-33% -Tunneling No -Undermining/Tunneling No -Circular Undermining No -Exudate Amt Medium -Exudate Type Serosanguineous -Wound Margin Flat & Intact -Granulation Amt Medium (34-66%) -Granulation Quality [place] -Slough/Fibrin Yes -Necrosis Amt Small (1-33%) -Necrotic Tissue Type Adherent Slough -Structure Exposed N/A -Texture (Kisha-wound Skin Appearance) Assessed, Localized Edema ,Scarring -Moisture (Kisha-wound Skin Appearance No Abnormality, ) Assessed -Color (Kisha-wound Skin Appearance) No Abnormality, Assessed -Temperature (Kisha-wound Skin No Abnormality Appearance) (Pt Warm) -Tenderness on Palpation (Kisha-wound Yes Skin Appearance) -Ulcer Cleansing Rinsed/ Irrigated with Saline -Foul Odor after Cleansing No -Anesthetic Used 4% Lidocaine Solution [Edema Assessment] -Lower Limb Edema Present Yes -Left Calf (cm) 47 -Left Ankle (cm) 23.5 - Nurse 2 - General Ulcer CM Notes Start: 11/30/19 09:01 Freq: Status: Active Protocol: Activity Type Activity Date Activity User E-Sign Co-Sign Detail Recorded Client Recorded Date Recorded By Document 11/30/19 09:21 [id number] 11/30/19 09:24 11/30/19 09:21 Wound Center Nurse 2 [Procedure/Treatment] #1 LLL medial -Time 09:21 -Correct Patient Yes -Correct Side, Site, Position Yes -Correct Procedure Yes -Procedure Performed Yes -Type of Procedure Debridement -Clinical Debridement Subcutaneous -Post Debridement Size (cm) - Length 5.5 -Post Debridement Size (cm) - Width 1.4 -Post Debridement Size (cm) - Depth 0.4 -Total Square Cm 7.70 -Wound/Ulcer Outcome Not Healed -Ulcer Cleansing Rinsed/ Irrigated with Saline -Foul Odor after Cleansing No -Bioengineered Tissue No -Bleeding Controlled with Pressure -Offloading No -Treatment Response Procedure Tolerated Well [See Physician Procedure note for Specifics] Pain Scale: 0-10 Numeric [Pain] -Is Patient Pain Free? Yes Musculoskeletal: No Tenderness to Palpation of Joints or Extremities Neurological: Neuro grossly intact Psych/Mental Status: Normal Affect, Appropriate Debridement Note Post-Debridement Measurements/Treatment [id number] - Nurse 2 - General Ulcer CM Notes Start: 11/30/19 09:01 Freq: Status: Active Protocol: Activity Type Activity Date Activity User E-Sign Co-Sign Detail Recorded Client Recorded Date Recorded By Document 11/30/19 09:21 [id number] 11/30/19 09:24 11/30/19 09:21 Wound Center Nurse 2 #1 LL medial -Time 09:21 -Correct Patient Yes -Correct Side, Site, Position Yes -Correct Procedure Yes -Procedure Performed Yes -Type of Procedure Debridement -Clinical Debridement Subcutaneous -Post Debridement Size (cm) - Length 5.5 -Post Debridement Size (cm) - Width 1.4 -Post Debridement Size (cm) - Depth 0.4 -Total Square Cm 7.70 -Wound/Ulcer Outcome Not Healed -Ulcer Cleansing Rinsed/ Irrigated with Saline -Foul Odor after Cleansing No -Bioengineered Tissue No -Bleeding Controlled with Pressure -Offloading No -Treatment Response Procedure Tolerated Well Pain Scale: 0-10 Numeric Is Patient Pain Free? Yes Wound debrided: medial lower leg ulcer Laterality: Left Type of Debridement: Excisional debridement Anesthesia Used: 5% Lidocaine Gel Depth: Down to and including healthy tissue, in the subcutaneous layer Percentage of wound debrided: 100 Instrument Used: 5mm curette Tissue Removed: Subcutaneous tissue and slough, good bleeding seen after debridement Severity: Fat Layer Exposed Amount of bleeding with debridement: Mild Bleeding Controlled with: Pressure Patient tolerated procedure well Assessment/Plan Assessment: 1. Nonhealing fasciotomy ulcer left medial leg, skin grafted, with skin graft compromise. 2. Fasciotomy ulcer left lateral leg, skin grafted, with skin graft compromise that has healed. 3. Hematoma with compartment syndrome left leg s/p fasciotomies. 4. senior care use of anticoagulation. 5. Lupus. 6. Immunocompromised state due to high risk medication, Methotrexate, for Lupus. Plan: Patient was evaluated in the wound center today and obtained a subcutaneous debridement which she tolerated it well. Wound care is moistened silver covered by adaptic. She is not showing much improvement most likely because of her edema. She wears Spandegrip for compression, which is not enough so will apply MENDEZ wrap in addition to the Spandigrip. Had an extended discussion with patient about the importance of compression and offered 3M2 layer wrap which the patient refused because it makes her anxiety increase. She had 8 applications of Epifix placental connective tissue graft. Wound care is moistened silver covered by Adaptic daily. The left lateral leg ulcer remains healed. Elevate left leg when sitting. At the time of the surgery on 04/10/19, wound culture showed Enterobacter cloacae, Acinetobacter baumannii, Streptococcus agalactiae, and Anaerobic cocci. She was treated perioperatively with Levaquin and Augmentin. Prealbumin from 04/11/19 was 18.8. Encourage nutritional supplementation wit protein to help the healing process. Followup one week. [id number]: [id number] Jessica subq tissue 20 sq cm/<
[2019-12-07 09:40] VITALS: BP 130/88; PULSE 123; RESP 16; TEMP 36.5; BMI 52.2
--- NOTE | 2019-12-07 17:44 | PN.PCM_ITS ---
Type of Wound Date of Service: 12/07/19 Chief Complaint: Nonhealing fasciotomy ulcer left medial leg with skin graft compromise. History of Wound: Surgery 04/10/19 - 1. Surgical preparation left medial leg with excisional debridement nonhealing fasciotomy ulcer and placement of AmnioFill placental connective tissue powder and STSG reconstruction from left flank (48 cm2). 2. Surgical preparation left lateral leg with excisional debridement nonhealing fasciotomy ulcer and placement of AmnioFill placental connective tissue powder and STSG reconstruction from left flank (20 cm2). She developed some skin graft compromise that necessitated HBO treatments to try and salvage the grafts. The left lateral leg skin graft has healed. The left medial leg skin graft ulcer persists. She also had applications of Epifix. Wound Care- Continue moistened silver with Adaptic daily. She is using s pandagrip wrap for compression. She is tolerating this Spandegrip much better than she did the Tubigrip. At the time of the surgery on 04/10/19, wound culture showed Enterobacter cloacae, Acinetobacter baumannii, Streptococcus agalactiae, and Anaerobic cocci. She was treated perioperatively with Levaquin and Augmentin. Prealbumin from 04/11/19 was 18.8. Encourage nutritional supplementation with protein to help the healing process. She underwent 18 out of 20 HBO treatments and stopped due to anxiety. Today she denies fever. Her appetite is ok. Progress of Wound: Mild improvement. - Physical Exam Vital Signs Temp Pulse Resp BP 97.7 F L 123 H 16 130/88 H 12/07/19 09:40 12/07/19 09:40 12/07/19 09:40 12/07/19 09:40 Wound Measurements and Assessment WC - Nurse 1 - General Ulcer Measurement Start: 11/30/19 09:01 Freq: Status: Active Protocol: Activity Type Activity Date Activity User E-Sign Co-Sign Detail Recorded Client Recorded Date Recorded By Document 12/07/19 09:40 [facility] [id number] 12/07/19 09:42 [facility] 12/07/19 09:40 Wound Center Nurse 1 [Ulcer Assessment] #1 LLL medial -Combined with other wound No -Current Size (cm) - Length 5.3 -Current Size (cm) - Width 1.3 -Current Size (cm) - Depth 0.2 -Total Square Cm 6.89 -Photo Taken No -Epithelialization None Present -Tunneling No -Undermining/Tunneling No -Circular Undermining No -Exudate Amt Small -Exudate Type Serosanguineous -Wound Margin Distinct, Outline Attached -Granulation Amt None Present (0 %) -Slough/Fibrin Yes -Necrosis Amt Large (67-100%) -Necrotic Tissue Type Adherent Slough -Texture (Kisha-wound Skin Appearance) Assessed, Excoriation, Scarring -Moisture (Kisha-wound Skin Appearance Assessed ) -Color (Kisha-wound Skin Appearance) Assessed, Erythema -Temperature (Kisha-wound Skin No Abnormality Appearance) (Pt Warm) -Tenderness on Palpation (Kisha-wound No Skin Appearance) -Ulcer Cleansing Rinsed/ Irrigated with Saline -Foul Odor after Cleansing No -Anesthetic Used 4% Lidocaine Solution [Edema Assessment] -Lower Limb Edema Present Yes -Left Calf (cm) 47.5 -Left Ankle (cm) 24.6 WC - Nurse 2 - General Ulcer CM Notes Start: 11/30/19 09:01 Freq: Status: Active Protocol: Activity Type Activity Date Activity User E-Sign Co-Sign Detail Recorded Client Recorded Date Recorded By Document 12/07/19 10:03 [id number] 12/07/19 10:04 12/07/19 10:03 Wound Center Nurse 2 [Procedure/Treatment] #1 LLL medial -Time 10:04 -Correct Patient Yes -Correct Side, Site, Position Yes -Correct Procedure Yes -Procedure Performed Yes -Type of Procedure Debridement -Clinical Debridement Subcutaneous -Post Debridement Size (cm) - Length 5.9 -Post Debridement Size (cm) - Width 1.6 -Post Debridement Size (cm) - Depth 0.4 -Total Square Cm 9.44 -Wound/Ulcer Outcome Not Healed -Ulcer Cleansing Rinsed/ Irrigated with Saline -Foul Odor after Cleansing No -Bioengineered Tissue No -Bleeding Controlled with Pressure -Offloading No -Treatment Response Procedure Tolerated Well [See Physician Procedure note for Specifics] Pain Scale: 0-10 Numeric [Pain] -Is Patient Pain Free? Yes Debridement Note Post-Debridement Measurements/Treatment WC - Nurse 2 - General Ulcer CM Notes Start: 11/30/19 09:01 Freq: Status: Active Protocol: Activity Type Activity Date Activity User E-Sign Co-Sign Detail Recorded Client Recorded Date Recorded By Document 11/30/19 09:21 [id number] 11/30/19 09:24 Document 12/07/19 10:03 [id number] 12/07/19 10:04 11/30/19 12/07/19 09:21 10:03 Wound Center Nurse 2 #1 LLL medial -Time 09: 10:04 -Correct Patient Yes Yes -Correct Side, Site, Position Yes Yes -Correct Procedure Yes Yes -Procedure Performed Yes Yes -Type of Procedure Debridement Debridement -Clinical Debridement Subcutaneous Subcutaneous -Post Debridement Size (cm) - Length 5.5 5.9 -Post Debridement Size (cm) - Width 1.4 1.6 -Post Debridement Size (cm) - Depth 0.4 0.4 -Total Square Cm 7.70 9.44 -Wound/Ulcer Outcome Not Healed Not Healed -Ulcer Cleansing Rinsed/ Rinsed/ Irrigated with Irrigated with Saline Saline -Foul Odor after Cleansing No No -Bioengineered Tissue No No -Bleeding Controlled with Pressure Pressure -Offloading No No -Treatment Response Procedure Procedure Tolerated Well Tolerated Well Pain Scale: 0-10 Numeric Is Patient Pain Free? Yes Yes Wound debrided: #1 Left lower medial leg. Laterality: Left Wound Grade/Stage: 2. Type of Debridement: Excisional debridement Anesthesia Used: 4% Lidocaine Solution Depth: Down to and including healthy tissue, in the subcutaneous layer Percentage of wound debrided: 100 Instrument Used: 5mm curette Tissue Removed: subcutaneous tissue. Severity: Fat Layer Exposed Amount of bleeding with debridement: Mild Bleeding Controlled with: Pressure Patient tolerated procedure well - A wound culture was obtained today. Assessment/Plan Assessment: 1. Nonhealing fasciotomy ulcer left medial leg, skin grafted, with skin graft compromise. 2. Fasciotomy ulcer left lateral leg, skin grafted, with skin graft compromise that has healed. 3. Hematoma with compartment syndrome left leg s/p fasciotomies. 4. terminal carman use of anticoagulation. 5. Lupus. 6. Immunocompromised state due to high risk medication, Methotrexate, for Lupus. Plan: Conitnue moistened silver covered by adaptic. She is not showing much improvement most likely because of her edema. She wears Spandegrip for compression, which is not enough so will apply MENDEZ wrap in addition to the Spandigrip. Had an extended discussion with patient about the importance of compression and offered 3M2 layer wrap which the patient refused because it makes her anxiety increase. She had 8 applications of Epifix placental connective tissue graft. The left lateral leg ulcer remains healed. Elevate left leg when sitting. At the time of the surgery on 04/10/19, wound culture showed Enterobacter cloacae, Acinetobacter baumannii, Streptococcus agalactiae, and Anaerobic cocci. She was treated perioperatively with Levaquin and Augmentin. Prealbumin from 04/11/19 was 18.8. Encourage nutritional supplementation wit protein to help the healing process. Discussed further operative debridement because of dense scar tissue formation that is inhibiting further healing. The swelling has improved and at the timeof operative debridement, may be able to close the ulcer with a complex secondary wound closure. If the central area is too tight for closure, then skin grafting can be done in the central area. Surgery would be done under general anesthesia on an outpatient basis. A preoperative wound culture was obtained today. A positive culture will necessitate antibiotic therapy. Patient was informed of the risks and complications of the procedure including alternatives to surgery. These were discussed with her personally. She voices understanding and wishes to proceed. Followup 2 weeks. We discussed the current risks associated with COVID-19. While it is understood that there is a community spread of COVID-19, the risk of garret COVID-19 while at [facility] ([facility]) is very low; however, the risk cannot be completely mitigated because of the community spread of the disease. We discussed in detail the risk of exposure to and/or potential harm posed by the COVID-19 virus with having a surgery/procedure at this time versus the risk of delaying the surgery/procedure. It is not possible to know either the risk of delaying the surgery or procedure or chance of getting an infection with perfect accuracy, but a joint decision was made to proceed at this time with the scheduled surgery/procedure as indicated on the consent form. Patient was notified that we will need to comply with any screening or testing [facility] wishes to perform or that surgery may be delayed for any positive results. At the present time there is no testing for the surgeons. The hospital is working on a policy for that to have the surgeon and surgical staff tested. So she has the option to wait until the surgeon and surgical staff are tested or she can proceed with the surgery at this time before the surgeon and surgical staff are tested. As long as the pain can be temporarily controlled, the surgery can be delayed until surgeon and surgical staff testing are done. She will think about when she wants to proceed with the surgery and let us know. [id number]: [id number] Jessica subq tissue 20 sq cm/< - ICD-10 - L97.922, T86.828, T14.8xxS, T79.A22S, M32.9, Z79.01, Z79.899
--- NOTE | 2019-12-16 11:29 | WC ---
TELEPHONE CALL FROM DIDI KLEIN PROOF SORTER. SHE REVIEWED PTS WOUND CX'S AND CALLED IN ORDER FOR DOXYCYCLINE.
== END 2019-12-20 23:59 ==
LOC: WC 09:30
PROVIDERS: Family Provider Family Medicine; PCP Family Medicine; Referring Provider Surgery; Visit Provider Surgery
DX: T86.828 Other complications of skin graft (allograft) (autograft) (principal); Y83.8 Other surgical procedures as the cause of abnormal reaction of the patient, or of later complication, without mention of misadventure at the time of the procedure; L97.822 Non-pressure chronic ulcer of other part of left lower leg with fat layer exposed; T79.A22S Traumatic compartment syndrome of left lower extremity, sequela; X58.XXXS Exposure to other specified factors, sequela; M32.9 Systemic lupus erythematosus, unspecified; F41.9 Anxiety disorder, unspecified; Z79.01 Long term (current) use of anticoagulants; Z79.899 Other long term (current) drug therapy
CPT/HCPCS: 11042; 87070; 87075; 87077; 87186; 87205

== ENCOUNTER 2019-12-29 07:56 | Inpatient (IN) | payer MEDICAID, SELFPAY ==
[2019-12-21 09:02] VITALS: BMI 52.2
[2019-12-29] VITALS (15 sets, daily range): BP systolic 121–158; BP diastolic 58–83; PULSE 90–132; RESP 14–20; TEMP 36.5–36.8; O2SAT 94–97; BMI 54.3; BMI 54.6
--- NOTE | 2019-12-29 00:36 | HP.PCM_ITS ---
History and Physical Date of Admission: 12/29/19 HISTORY OF PRESENT ILLNESS The patient is a 49 year old F who developed a compartment syndrome in 12/07 and she was taken urgently to the OR on 12/13/[address] Sawant for fasciotomies. Medial and lateral leg wounds were created. She underwent wound care with the VAC and the Silver dressing changes. She was taken back to surgery on 04/10/19 where she underwent surgical preparation left medial leg with excisional debridement nonhealing fasciotomy ulcer and placement of AmnioFill placental connective tissue powder and STSG reconstruction from left flank (48 cm2) and surgical preparation left lateral leg with excisional debridement nonhealing fasciotomy ulcer and placement of AmnioFill placental connective tissue powder and STSG reconstruction from left flank (20 cm2). She developed some compromise to the skin grafts and underwent HBO treatments. Since then the lateral wound has healed. However, she still has a nonhealing ulcer left medial leg. Recent culture showed MRSA and she was started on Doxycycline. She presents today for further operative debridement and complex secondary wound closure and possible skin grafting to the left medial leg ulcer. 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 Bupropion. Iron sulfate. Folic acid. Toprol. Omeprazole. Percocet. Prednisone. Ropinirole. Trazodone. Effexor. Coumadin. Doxycycline. Acidophilus. SOCIAL HISTORY Lives: With Family Smoking Status: Never smoker Alcohol: None FAMILY HISTORY Maternal - No pertinent history Paternal - No pertinent history REVIEW OF SYSTEMS Constitutional: Denies: Chills, Fever, Weight Change. Eyes: Denies: Blurred vision. HEENT: Denies: Head Aches, Sinus Congestion, Sinus Drainage. Cardiovascular: Denies: Chest Pain, Palpitations. Respiratory: Denies: Cough, Shortness of Breath, Shortness of breath at rest, Sputum production. Gastrointestinal: Denies: Abdominal Pain, Nausea, Vomiting. Genitourinary: Denies: Dysuria. Musculoskeletal: Reports: Leg Pain, Muscle pain. Denies: Arm Pain, Back Pain, Foot Pain, Hand Pain, Joint Pain, Joint swelling. Skin: Denies: Rash, Wounds. Neurological: Denies: Numbness, Tingling, Focal weakness. Psychiatric: Denies: Anxiety, Depression, Homicidal Ideations, Suicidal Ideations. Hematologic/ Lymphatic: Denies: Easy Bruising, Easy Bleeding PHYSICAL EXAMINATION General: Alert, Oriented x3. HEENT: PERRLA, EOMI. Oral: Moist Mucosa Neck: Supple, Nontender. Lungs: Clear to auscultation. Cardiovascular: Regular Rhythm, Tachycardic Abdomen: Soft, Non-Distended. Skin: Nonhealing fasciotomy ulcer present left medial leg. Mild swelling present. Ulcer is clean with granulation tissue. Medial leg ulcer measures 6 x 1.6 x 0.4 cm. The length of the superior and inferior scarring with the central ulcer is 16 cm. Lymphatic: No Cervical, Supraclavicular, or Inguinal Adenopathy Neurological: Cranial nerves II-XII grossly intact Psych/Mental Status: Normal Affect, Appropriate, Alert and oriented to time, pl mendez, person, mood and affect ASSESSMENT 1. Nonhealing fasciotomy ulcer left medial leg. 2. Hematoma with compartment syndrome left leg s/p fasciotomies. 3. History of compromised skin grafts. 4. MRSA. 5. supervisor intermediates use of anticoagulation. 6. Lupus. 7. Immunocompromised state due to high risk medication, Methotrexate, for Lupus, currently off Methotrexate. PLAN Continue moistened silver dressing changes covered by adaptic. She is not showing much improvement most likely because of her edema. She wears Spandegrip for compression, which is not enough so will apply MENDEZ wrap in addition to the Spandigrip. Had an extended discussion with patient about the importance of compression and offered 3M 2 layer wrap which the patient refused because it makes her anxiety increase. She had 8 applications of Epifix placental connective tissue graft. The left lateral leg ulcer remains healed. Elevate left leg when sitting. At the time of the surgery on 04/10/19, wound culture showed Enterobacter cloacae, Acinetobacter baumannii, Streptococcus agalactiae, and Anaerobic cocci. She was treated perioperatively with Levaquin and Augmentin. Recent wound culture from 12/07/19 showed MRSA and she was started on Doxycycline. Prealbumin from 04/11/19 was 18.8. Encourage nutritional supplementation wit protein to help the healing process. Discussed further operative debridement because of dense scar tissue formation that is inhibiting further healing. The swelling has improved and at the time of operative debridement, may be able to close the ulcer with a complex secondary wound closure. If the central area is too tight for closure, then skin grafting can be done in the central area. Surgery would be done under general anesthesia on an outpatient basis. Patient was informed of the risks and complications of the procedure including alternatives to surgery. These were discussed with her personally. She voices understanding and wishes to proceed. Surgery will be done under general anesthesia with a surgical observation overnight stay in the hospital. We discussed the current risks associated with COVID-19. While it is understood that there is a community spread of COVID-19, the risk of garret COVID-19 while at [facility] ([facility]) is very low; however, the risk cannot be completely mitigated because of the community spread of the disease. We discussed in detail the risk of exposure to and/or potential harm posed by the COVID-19 virus with having a surgery/procedure at this time versus the risk of delaying the surgery/procedure. It is not possible to know either the risk of delaying the surgery or procedure or chance of getting an infection with perfect accuracy, but a joint decision was made to proceed at this time with the scheduled surgery/procedure as indicated on the consent form. Patient was notified that we will need to comply with any screening or testing [facility] wishes to perform or that surgery may be delayed for any positive results. At the present time there is no testing for the surgeons. The hospital is working on a policy for that to have the surgeon and surgical staff tested. So she has the option to wait until the surgeon and surgical staff are tested or she can proceed with the surgery at this time before the surgeon and surgical staff are tested. As long as the pain can be temporarily controlled, the surgery can be delayed until surgeon and surgical staff testing are done. She has thought about it, and she wants to proceed with the surgery at this time. Procedure Criteria Procedure Type: Elective COVID Risk Discussion: The surgeon/proceduralist and patient have discussed in detail the risk of exposure to and/or potential harm posed by the COVID-19 virus with having a surgery/procedure at this time versus the risk of delaying the surgery/procedure. It is not possible to know either the risk of delaying the surgery or procedure or chance of getting an infection with perfect accuracy, but a joint decision was made between the patient and the surgeon/proceduralist to proceed at this time with the scheduled surgery/procedure as indicated on the consent form.
[2019-12-29] MEDS: Lactated Ringers 1,000 ML 100 ML IV (06:42)
--- NOTE | 2019-12-29 06:59 | EKG12_ITS ---
Test Reason : PRE OP Blood Pressure : / mmHG Vent. Rate : 125 BPM Atrial Rate : 125 BPM P-R Int : 134 ms QRS Dur : 078 ms QT Int : 290 ms P-R-T Axes : 052 070 058 degrees QTc Int : 418 ms Sinus tachycardia Otherwise normal ECG When compared with ECG of 25-JUN-2019 14:05, Premature ventricular complexes are no longer Present Confirmed by BLAKE LEON, MILY ([id number]), non linear editor GILBERT ZHOU ([id number]) on 01/05/2020 9:52:52 AM Referred By: Nghia Kent Confirmed By:MILY LOZANO MD
[2019-12-29] MEDS: Ondansetron 4 MG/2 ML Vial IV (07:30)
[2019-12-29] MEDS: Lactated Ringers 1,000 ML 999 ML IV (07:32)
[2019-12-29 07:41] LABS: Prothrombin Time Fingerstick 14.8 SEC (11.9-14.4)
--- NOTE | 2019-12-29 07:53 | PCM.PN.BLA ---
Progress Note DATE OF PREVIOUS HISTORY AND PHYSICAL - December 29, 2019. DATE OF PLANNED SURGICAL PROCEDURE - December 29, 2019. Patient was scheduled for elective debridement nonhealing fasciotomy ulcer left medial leg with complex secondary wound closure and possible skin grafting. In the preop area she developed a heart rate in the 130's that was unresponsive to IV medication. The surgery is cancelled for today and she is being admitted for evaluation of her uncontrolled tachycardia. Will consult Hospitalist Group for medical management. STROKE Vital Signs/Narrative: Vital Signs Temp Pulse Resp BP Pulse Ox 12/29/19 07:47 117 H 149/80 H 12/29/19 07:30 121 H 148/74 H 12/29/19 07:25 122 H 148/79 H 12/29/19 07:18 132 H 148/82 H 12/29/19 06:23 98.3 F 132 H 20 H 155/76 H 97 Inpatient E&M: 32695 Init Hosp L2 - ICD-10 - R00.0, F41.9, L97.922, T86.828, M32.9, Z79.899, Z79.01, T79.A22S
--- NOTE | 2019-12-29 08:16 | RAD_ITS ---
STUDY: X-RAY CHEST REASON FOR EXAM: Female, 49 years old. PT WAS TO HAVE A DEBRIDEMENT SURGERY TODAY OF HER LEG, PT NOW HAS CONTROLLED TACHYCARDIA TECHNIQUE: PA and lateral views of the chest. COMPARISON: Comparison is made with prior study dated June 25, 2019. FINDINGS: EKG electrodes are seen. The lungs are clear and expanded. There is no demonstrated pleural abnormality. Normal size heart. Normal mediastinum and xiomara. Normal visualized pulmonary arteries. Normal visualized aortic arch and descending thoracic aorta. Normal visualized thoracic spine. Normal visualized ribs, clavicles, and shoulders. Moderate sized hiatal hernia. RAD/Chest PA and Lateral IMPRESSION: Moderate sized hiatal hernia. Electronically Signed: Yan Clement, at 10:05 EDT , Service support ,
--- NOTE | 2019-12-29 08:22 | PN_ITS ---
Reason for Visit: Consult for medical management Subjective: 49-year-old female with past medical history of SLE, off methotrexate now who initially developed compartment syndrome on 11/2018 and was taken to the OR 12/13/2018 for fasciotomy. He had medial and lateral leg wounds created. She is subsequently underwent wound care with wound VAC and silver dressing changes. She went back to surgery on 04/10/2019 for excisional debridement of nonhealing fasciotomy ulcer. Patient subsequently had skin graft placed and underwent hyperbaric treatments. Had left lateral wounds ultimately healed but she still has a nonhealing left medial ulcer for which she has been following up in the wound center. And had an elective operative debridement and complex secondary wound closure with possible skin grafting to the left medial leg ulcer plan today. However she was found to be tachycardic. She is on metoprolol and had taken metoprolol as well as a anti-depressants today. Heart rate was sustained in the 130s. Received IV metoprolol 5 mg x 1 in the OR with no effect. Her surgery got postponed and she was admitted today medical floor for medical management. Denied any fever chills or chest pain. She admits to palpitations but no dizziness or shortness of breath. Her vitals remained stable. EKG shows normal sinus rhythm, heart rate in the 130s. TSH is normal. Magnesium is 1.7. Vitals/I&O's: Vital Signs Temp Pulse Resp BP Pulse Ox 98.3 F 120 H 16 158/83 H 97 12/29/19 06:23 12/29/19 07:53 12/29/19 07:53 12/29/19 07:53 12/29/19 07:53 Oxygen Delivery Method Room Air Weight: 148.3 kg Body Mass Index (BMI) 54.3 Finger Stick Blood Glucose 115 General: Alert, Oriented x3, Cooperative, No apparent distress HEENT: Atraumatic, PERRLA, EOMI, Normocephalic Oral: Moist Mucosa Neck: Supple Lungs: Clear to auscultation, Normal air movement Cardiovascular: Regular rate, Regular Rhythm, Normal S1, Normal S2, No murmurs Abdomen: Bowel Sounds Present, Soft, Non Tender, Non-Distended, No Hepato- splenomegaly Extremities: No edema Skin: No rashes, No breakdown Musculoskeletal: No Tenderness to Palpation of Joints or Extremities Lymphatic: No Cervical, Supraclavicular, or Inguinal Adenopathy Neurological: Cranial nerves II-XII grossly intact, Neuro grossly intact Psych/Mental Status: Normal Affect, Appropriate Laboratory Results 12/28/19 10:20: COVID-19 (RODERICK) Not Detected 12/29/19 06:14: POC PT 14.8 H, INR 1.20 Current Medications Aripiprazole (Abilify) 2 mg PO DAILY [facility] Bupropion HCl (Wellbutrin Xl) 300 mg PO DAILY [facility] Docusate Sodium (Colace) 100 mg PO BID [facility] Doxycycline Monohydrate (Doxycycline) 100 mg PO BID [facility] Ferrous Sulfate (Ferrous Sulfate) 325 mg PO DAILY [facility] Folic Acid (Folic Acid) 1 mg PO DAILY [facility] Lactated Ringer's () 1,000 mls @ 100 mls/hr IV .Q10H [facility] Last Admin: 12/29/19 06:42 Dose: 100 mls/hr Documented by: Lactated Ringer's () 1,000 mls @ 999 mls/hr IV .Q1H1M [facility] Stop: 12/29/19 08:45 Last Admin: 12/29/19 07:32 Dose: 999 mls/hr Documented by: Lactated Ringer's () 1,000 mls @ 60 mls/hr IV .[id number] [facility] Metoprolol Succinate (Toprol Xl (Beta Christin)) 25 mg PO DAILY [facility] Non-Formulary Medication (Ropinirole Hcl [Ropinirole Er]) 2 mg PO QHS [facility] Non-Formulary Medication (Omeprazole) 40 mg PO BID [facility] Non-Formulary Medication (Lactobacillus Acidophilus [Acidophilus]) 1 ea PO BID [facility] Nutritional Formula (Ghassan - [place] Flavor) [facility] Ondansetron HCl (Zofran) 4 mg IV Q6H PRN PRN PRN Reason: NAUSEA Oxycodone HCl (Oxyir) 5 mg PO Q6H PRN PRN PRN Reason: Pain Score 6-10/10 Prednisone () 8 mg PO DAILY [facility] Promethazine HCl (Phenergan Tablet) 25 mg PO Q4H PRN PRN PRN Reason: NAUSEA/VOMITING Trazodone HCl (Desyrel) 150 mg PO QHS [facility] Venlafaxine HCl (Effexor Xr) 225 mg PO DAILY [facility] Warfarin Sodium (Jantoven) 2.5 mg PO WEFR [facility] Warfarin Sodium (Coumadin (Pbkc)) 5 mg PO SUMOTUTHSA [facility] STROKE Vital Signs/Narrative: Vital Signs Temp Pulse Resp BP Pulse Ox 12/29/19 07:53 120 H 16 158/83 H 97 12/29/19 07:47 117 H 149/80 H 12/29/19 07:30 121 H 148/74 H 12/29/19 07:25 122 H 148/79 H 12/29/19 07:18 132 H 148/82 H 12/29/19 06:23 98.3 F 132 H 20 H 155/76 H 97 Medical Necessity - Tobacco Use Smoking Status: Never smoker Assessment/Plan All Active Problems Open wound of left lower extremity (Acute) Hematoma (Acute) Compartment syndrome of left lower extremity (Acute) 1. Tachycardia, sinus, likely related to anxiety EKG shows normal sinus rhythm. TSH is normal. Patient's heart rate improved with Ativan Increase home metoprolol XL dose to 50 mg daily Will continue with patient antidepressants and continue to monitor. 2. Hypomagnesemia, magnesium is 1.7, Will replace, recheck in am 3. History of lupus anticoagulant, on Coumadin Will start on therapeutic Lovenox, bridging with Coumadin Repeat INR in a.m. 4. Anxiety/depression, continue home medications 5. Morbid obesity, BMI 54.6 Lifestyle modification advised 6. RA/SLE, off methotrexate, on prednisone 7. DVT PPx- on therapeutic Lovenox Inpatient E&M: 73163 Subs Hosp L2
[2019-12-29 08:36] LABS: Hematocrit 38.2 % (37-47); Hemoglobin 11.9 g/dL (12.0-15.0); Mean Corp Hgb Conc 31.2 g/dL (32-36); Mean Corpuscular Hgb 28.5 pg (27.0-32.0); Mean Corpuscular Volume 91.4 fL (81-99); Mean Platelet Vol. 9.3 fl (6.2-12.0); Platelet Count 324 K/mm3 (150-450); RBC Distribution Width CV 14.9 % (11.6-14.6); RBC Distribution Width SD 49.4 fl (35.1-43.9); Red Blood Count 4.18 M/mm3 (4.2-5.4); White Blood Count 14.4 K/mm3 (4.4-11.0)
[2019-12-29 08:50] LABS: ALB/GLOB Ratio 0.7 RATIO (0.9-2.4); AST(SGOT) 23 U/L (15-37); Alanine Aminotransfer ALT/SGPT 26 U/L (13-56); Albumin, Serum 3.1 g/dL (3.2-5.0); Alkaline Phosphatase 84 U/L (45-117); Anion Gap 8 (5-15); BUN 14 mg/dL (7-18); BUN/Creat Ratio 19.4 RATIO (10-20); Calcium,Total 9.1 mg/dL (8.5-10.1); Chloride 101 mmol/L (98-107); Creatinine, Serum 0.72 mg/dL (0.55-1.02); EST Glomerular Filtration Rate 91 mL/min (>60); Erythrocyte Sedimentation Rate 54 mm/hr (0-20); Est Glom Filt Rate - Afr Amer 110 mL/min (>60); Estimated Creatinine Clearance 85.05 ml/min; Globulin 4.5 g/dL (2.2-4.2); Glucose 93 mg/dL (74-106); Prealbumin 24.6 mg/dL (20.0-40.0); Protein, Total 7.6 g/dL (6.4-8.2); Sodium Level 138 mmol/L (136-145)
[2019-12-29 09:06] LABS: International Normalized Ratio 1.1; Prothrombin Time (Protime)PT. 13.9 SECONDS (11.7-14.9)
[2019-12-29] MEDS: oxyCODONE 5 MG Tablet PO ×2 (09:27→17:09)
[2019-12-29] MEDS: Lactated Ringers 1,000 ML 60 ML IV (09:31)
[2019-12-29] MEDS: Docusate Sodium 100 MG Capsule PO ×2 (10:19→21:22)
[2019-12-29] MEDS: Venlafaxine XR 75 MG Capsule 225 MG PO (10:20)
[2019-12-29] MEDS: Doxycycline 100 MG CAPSULE PO ×2 (10:20→21:22)
[2019-12-29] MEDS: predniSONE 1 MG Tablet 8 MG PO (10:21)
[2019-12-29] MEDS: Ferrous Sulfate 325 MG Tablet PO (10:21)
[2019-12-29] MEDS: ARIPiprazole 2 MG Tablet PO (10:21)
[2019-12-29] MEDS: Metoprolol(XL)Succ 25 MG Tablet PO (10:21)
[2019-12-29] MEDS: Folic Acid 1 MG Tablet PO (10:22)
[2019-12-29 10:52] LABS: Magnesium 1.7 mg/dL (1.6-2.6); Thyroid Stim Hormone (TSH) 2.46 uIU/mL (0.358-3.74)
[2019-12-29] MEDS: DiphenhydrAMINE 25 MG Capsule 50 MG PO ×2 (11:40→20:15)
[2019-12-29] MEDS: Metoprolol Tartrate 25 MG Tablet PO (11:40)
--- NOTE | 2019-12-29 11:52 | NURSING ---
wound photo: left medial lower leg
--- NOTE | 2019-12-29 12:00 | CASEMGMT ---
ZENON ROMAN assessment: Face to Face with patient for initial transition planning/care coordination assessment. ZENON ROMAN introduced self and role at [facility], pt voices understanding and consents to assessment at this time. Pt is lying in bed in no distress at this time. Pt is A/Ox4 at this time and answers all questions appropriately at this time. Care providers, pharmacy, and demographics verified at this time. Presentation: From OR for uncontrolled tachycardia, pt was scheduled for surgery today with [facility] Admitting dx: uncontrolled tachycardia PCP: Tarah Dubon Specialists: Donte, plastics; [facility] arthritic clinic Preferred Pharmacy: [facility] Insurance: [employer] Prescription Benefit: [employer] Living Will/HPOA: Pt states does not have LW/HPOA and does not want AD info at this time. Pt states she has the info at home, if needed. LNOK: Jasmin Wise, mother Living Arrangements: Pt states lives with mother in 1 story condo and states no concerns at home at this time. Pt states is independent with ADL's. Transportation: Pt states drives self and states no transportation concerns at this time. DME/HHC: Pt states no current DME or need for any at this time. Pt states has had HHC in the past but does not remember company and [facility]. Pt states no concerns with going home at time of discharge. Pt is on disability. Pt states does not smoke cigarettes but does rarely drink ETOH. Pt states no further concerns/needs at this time. CM to follow for any further discharge planning/needs. Advised pt to ask for CM if any further questions/concerns/needs arise, voices understanding. Pt Goal: Home Plan: [place] ZENON ROMAN
[2019-12-29] MEDS: LORazepam 1 MG Tablet PO (13:08)
[2019-12-29] MEDS: Acetaminophen 325 MG Tablet 650 MG PO (13:08)
[2019-12-29] MEDS: Enoxaparin 150 MG/ML Syringe SC (18:52)
[2019-12-29] MEDS: Pramipexole Di-HCl 1 MG Tablet PO (21:21)
[2019-12-29] MEDS: traZODone 50 MG Tablet 150 MG PO (21:22)
[2019-12-29] MEDS: Pantoprazole Sodium 40 MG Tablet PO (21:22)
[2019-12-30] VITALS (7 sets, daily range): BP systolic 107–111; BP diastolic 58–63; PULSE 87–103; RESP 18–20; TEMP 36.5–36.6; O2SAT 92–95
[2019-12-30] MEDS: oxyCODONE 5 MG Tablet PO ×2 (02:27→09:15)
[2019-12-30] MEDS: Lactated Ringers 1,000 ML 60 ML IV (04:20)
[2019-12-30 05:21] LABS: Absolute Neutrophil Count 4.5 X10^3/uL (2.0-7.7); Basophil# 0.06 X10^3/uL; Basophil% 0.7 % (0-1); Eosinophil# 0.21 X10^3/uL; Eosinophils% 2.5 % (0-5); Hemoglobin 11.4 g/dL (12.0-15.0); Lymphocyte % 36.3 % (19-41); Mean Corpuscular Hgb 28.7 pg (27.0-32.0); Mean Corpuscular Volume 95.7 fL (81-99); Mean Platelet Vol. 9.3 fl (6.2-12.0); Monocyte# 0.69 X10^3/uL; Monocyte% 8.1 % (0-10); NRBC Flagged by Analyzer 0 % (0-5); Neutrophil # 4.47 X10^3/uL (2.7-7.7); Neutrophil % 52.2 % (47-70); Platelet Count 266 K/mm3 (150-450); RBC Distribution Width CV 15.3 % (11.6-14.6); RBC Distribution Width SD 53.1 fl (35.1-43.9); Red Blood Count 3.97 M/mm3 (4.2-5.4); White Blood Count 8.6 K/mm3 (4.4-11.0)
[2019-12-30 05:28] LABS: International Normalized Ratio 1.1; Prothrombin Time (Protime)PT. 13.8 SECONDS (11.7-14.9)
[2019-12-30 05:35] LABS: ALB/GLOB Ratio 0.7 RATIO (0.9-2.4); AST(SGOT) 27 U/L (15-37); Alanine Aminotransfer ALT/SGPT 27 U/L (13-56); Albumin, Serum 2.8 g/dL (3.2-5.0); Alkaline Phosphatase 75 U/L (45-117); Anion Gap 7 (5-15); BUN 14 mg/dL (7-18); BUN/Creat Ratio 20.1 RATIO (10-20); Calcium,Total 8.8 mg/dL (8.5-10.1); Chloride 103 mmol/L (98-107); EST Glomerular Filtration Rate 95 mL/min (>60); Est Glom Filt Rate - Afr Amer 115 mL/min (>60); Estimated Creatinine Clearance 87.48 ml/min; Globulin 4.3 g/dL (2.2-4.2); Glucose 79 mg/dL (74-106); Magnesium 2.3 mg/dL (1.6-2.6); Protein, Total 7.1 g/dL (6.4-8.2); Sodium Level 140 mmol/L (136-145)
[2019-12-30] MEDS: DiphenhydrAMINE 25 MG Capsule 50 MG PO (05:52)
[2019-12-30] MEDS: Acetaminophen 325 MG Tablet 650 MG PO (05:52)
[2019-12-30] MEDS: Enoxaparin 150 MG/ML Syringe SC (05:53)
--- NOTE | 2019-12-30 09:02 | PN_ITS ---
Reason for Visit: Follow-up on tachycardia Subjective: Patient was seen and examined. Denied any new complaints. Eager to be discha rged. Discussed with Dr. Kent, surgery planned on Saturday. Objective: Physical exam: General: Alert, Oriented x3, Cooperative, No apparent distress HEENT: Atraumatic, PERRLA, EOMI, Normocephalic Oral: Moist Mucosa Neck: Supple Lungs: Clear to auscultation, Normal air movement Cardiovascular: Regular rate, Regular Rhythm, Normal S1, Normal S2, No murmurs Abdomen: Bowel Sounds Present, Soft, Non Tender, Non-Distended, No Hepato- splenomegaly Extremities: No edema Skin: No rashes, No breakdown Musculoskeletal: No Tenderness to Palpation of Joints or Extremities Lymphatic: No Cervical, Supraclavicular, or Inguinal Adenopathy Neurological: Cranial nerves II-XII grossly intact, Neuro grossly intact Psych/Mental Status: Normal Affect, Appropriate Vitals/I&O's: Vital Signs Temp Pulse Resp BP Pulse Ox 97.7 F L 100 20 H 111/58 L 92 12/30/19 03:15 12/30/19 07:00 12/30/19 03:15 12/30/19 03:15 12/30/19 03:15 Oxygen Delivery Method Room Air Weight: 148.778 kg Body Mass Index (BMI) 54.6 Finger Stick Blood Glucose 115 Intake and Output for Last 24 Hours 12/28/19 12/29/19 12/30/19 23:59 23:59 23:59 Intake Total 2685.67 / 2685.67 695 / 695 Balance 2685.67 / 2685.67 695 / 695 Laboratory Results 12/29/19 08:26: PT 13.9, INR 1.1 12/29/19 08:26: Magnesium 1.7, TSH 2.46 12/30/19 05:04: WBC 8.6, RBC 3.97 L, Hgb 11.4 L, Hct 38.0, MCV 95.7, MCH 28.7, MCHC 30.0 L, RDW Std Deviation 53.1 H, RDW Coeff of Chepe 15.3 H, Plt Count 266, MPV 9.3, Immature Gran % (Auto) 0.200, Neut % (Auto) 52.2, Lymph % (Auto) 36.3, Petroleum % (Auto) 8.1, Eos % (Auto) 2.5, Baso % (Auto) 0.7, Absolute Neuts (auto) 4.5, Absolute Lymphs (auto) 3.10, Nucleated RBC % 0 12/30/19 05:04: Sodium 140, Potassium 4.0, Chloride 103, Carbon Dioxide 30.0, Anion Gap 7, BUN 14, Creatinine 0.70, Estim Creat Clear Calc 87.48, Est GFR (MDRD) Af Amer 115, Est GFR (MDRD) Non-Af 95, BUN/Creatinine Ratio 20.1 H, Glucose 79, Calcium 8.8, Magnesium 2.3, Total Bilirubin 0.30, AST 27, ALT 27, Alkaline Phosphatase 75, Total Protein 7.1, Albumin 2.8 L, Globulin 4.3 H, Albumin/Globulin Ratio 0.7 L 12/30/19 05:04: PT 13.8, INR 1.1 Current Medications Acetaminophen (Tylenol) 650 mg PO Q6H PRN PRN PRN Reason: Pain Score 1-04/30 Last Admin: 12/30/19 05:52 Dose: 650 mg Documented by: Aripiprazole (Abilify) 2 mg PO DAILY [facility] Last Admin: 12/29/19 10:21 Dose: 2 mg Documented by: Bupropion HCl (Wellbutrin Xl) 300 mg PO DAILY [facility] Diphenhydramine HCl (Benadryl) 50 mg PO BID PRN PRN PRN Reason: itching Last Admin: 12/30/19 05:52 Dose: 50 mg Documented by: Docusate Sodium (Colace) 100 mg PO BID [facility] Last Admin: 12/29/19 21:22 Dose: 100 mg Documented by: Doxycycline Monohydrate (Doxycycline) 100 mg PO BID [facility] Last Admin: 12/29/19 21:22 Dose: 100 mg Documented by: Enoxaparin Sodium (Lovenox) 150 mg SC Q12@0600,1800 [facility] Last Admin: 12/30/19 05:53 Dose: 150 mg Documented by: Ferrous Sulfate (Ferrous Sulfate) 325 mg PO DAILY@1200 [facility] Last Admin: 12/29/19 10:21 Dose: 325 mg Documented by: Folic Acid (Folic Acid) 1 mg PO DAILY@0800 [facility] Last Admin: 12/29/19 10:22 Dose: 1 mg Documented by: Lactated Ringer's () 1,000 mls @ 60 mls/hr IV .[id number] [facility] Last Admin: 12/30/19 04:20 Dose: 60 mls/hr Documented by: Lactobacillus Acidophilus (Acidophilus) 1 tablet PO BID [facility] Last Admin: 12/29/19 21:22 Dose: 1 tablet Documented by: Metoprolol Succinate (Toprol Xl (Beta Christin)) 50 mg PO DAILY [facility] Nutritional Formula (Ghassan - [place] Flavor) [facility] Last Admin: 12/29/19 17:09 Dose: 1 packet Documented by: Ondansetron HCl (Zofran) 4 mg IV Q6H PRN PRN PRN Reason: NAUSEA Oxycodone HCl (Oxyir) 5 mg PO Q6H PRN PRN PRN Reason: Pain Score 6-10/10 Last Admin: 12/30/19 02:27 Dose: 5 mg Documented by: Pantoprazole Sodium (Protonix) 40 mg PO BID [facility] Last Admin: 12/29/19 21:22 Dose: 40 mg Documented by: Pramipexole Dihydrochloride (Mirapex) 1 mg PO QHS [facility] Last Admin: 12/29/19 21:21 Dose: 1 mg Documented by: Prednisone () 8 mg PO DAILY@0800 [facility] Last Admin: 12/29/19 10:21 Dose: 8 mg Documented by: Promethazine HCl (Phenergan Tablet) 25 mg PO Q4H PRN PRN PRN Reason: NAUSEA/VOMITING Sodium Chloride () 10 - 40 ml IV UD PRN PRN Reason: SALINE FLUSH Trazodone HCl (Desyrel) 150 mg PO QHS [facility] Last Admin: 12/29/19 21:22 Dose: 150 mg Documented by: Venlafaxine HCl (Effexor Xr) 225 mg PO DAILY [facility] Last Admin: 12/29/19 10:20 Dose: 225 mg Documented by: Warfarin Sodium (Jantoven) 2.5 mg PO WeFr@1700 [facility] Warfarin Sodium (Coumadin (Pbkc)) 5 mg PO SuMoTuThSa@1700 [facility] Last Admin: 12/29/19 17:08 Dose: 5 mg Documented by: STROKE Vital Signs/Narrative: Vital Signs Pulse 12/30/19 07:00 100 Medical Necessity - Tobacco Use Smoking Status: Never smoker Assessment/Plan All Active Problems Sinus tachycardia (Acute) Open wound of left lower extremity (Acute) Hematoma (Acute) Compartment syndrome of left lower extremity (Acute) 1. Tachycardia, sinus, likely related to anxiety, resolved EKG shows normal sinus rhythm. TSH is normal. On increased dose of metoprolol XL dose to 50 mg daily Will continue with patient antidepressants and continue to monitor. 2. Hypomagnesemia, resolved 3. History of lupus anticoagulant, on Coumadin On therapeutic Lovenox, INR 1.1 4. Anxiety/depression, continue home medications 5. Morbid obesity, BMI 54.6 Lifestyle modification advised 6. RA/SLE, off methotrexate, on prednisone 7. DVT PPx- on therapeutic Lovenox Inpatient E&M: 48458 Subs Hosp L2
[2019-12-30] MEDS: Venlafaxine XR 75 MG Capsule 225 MG PO (09:15)
[2019-12-30] MEDS: Pantoprazole Sodium 40 MG Tablet PO (09:15)
[2019-12-30] MEDS: Ferrous Sulfate 325 MG Tablet PO (09:15)
[2019-12-30] MEDS: predniSONE 1 MG Tablet 8 MG PO (09:15)
[2019-12-30] MEDS: Docusate Sodium 100 MG Capsule PO (09:15)
[2019-12-30] MEDS: Doxycycline 100 MG CAPSULE PO (09:15)
[2019-12-30] MEDS: buPROPion (XL) 300 MG TABLET.XL PO (09:15)
[2019-12-30] MEDS: Folic Acid 1 MG Tablet PO (09:15)
[2019-12-30] MEDS: ARIPiprazole 2 MG Tablet PO (09:15)
[2019-12-30] MEDS: Metoprolol(XL)Succ 50 MG Tablet PO (09:24)
--- NOTE | 2019-12-30 17:42 | DCINST_ITS ---
You will use the following diet at home:: No restrictions Discharge Activity: May Drive, May Shower, - - elevate legs when sitting. anneliese nue silver dressing changes daily. May shower in (days): 1 - at time of dressing change. May resume sexual activity in: No Restrictions Weight Bearing Status: Weight bearing as tolerated Keep extremity elevated above heart level: Legs Call your doctor if your incision/area has: Continuous Slow Oozing, Sudden Increased Bleeding, Increased Pain/ Swelling, Increased Redness, Foul Smelling Discharge, Swelling at the incision site Call your doctor if you observe: Fever of 101 or Higher, Coldness, Increased Pain, Shortness of breath, Chest pain, Calf discomfort, Uncontrolled pain Suture Line Care: - - daily silver dressing changes to left leg followed by tubigrip for compression. Change Dressing in (Days):: 1 - silver dressing changes daily. Cleanse incision/area with: - - may get ulcer wet in the shower at the time of the silver dressing change. Additional Instructions: Patient is scheduled for surgery this Saturday, January 01, 2020 at 1130am. Hospital will call patient tomorrow for a time to be at the hospital on Saturday. Allergies/Adverse Reactions: Allergies adhesive tape Adverse Reaction (Verified 12/23/19 08:05) Rash Medications to take at Discharge Aripiprazole [Abilify] 2 mg PO DAILY 07/10/18 Omeprazole 40 mg PO BID 07/10/18 Bupropion HCl [Bupropion Xl] 300 mg PO DAILY 08/25/18 Ropinirole HCl [Ropinirole ER] 2 mg PO QHS 08/25/18 Folic Acid 1 mg PO DAILY 01/23/19 Ferrous Sulfate 325 mg PO DAILY 03/27/19 Lactobacillus Acidophilus [Acidophilus] 1 ea PO BID 03/27/19 Venlafaxine XR [Effexor Xr] 225 mg PO DAILY 04/10/19 traZODone [Desyrel] 150 mg PO QHS 04/10/19 Prednisone 8 mg PO DAILY 05/18/19 Oxycodone HCl/Acetaminophen [Oxycodone-Acetaminophen 5-325] 1 tab PO Q6H PRN PRN 06/25/19 doxycycline monohydrate 100 mg capsule 100 mg PO BID #42 cap 12/15/19 Metoprolol(XL)Succ [Toprol Xl (Beta Christin)] 50 mg PO DAILY tab 12/30/19 Warfarin [Coumadin] 5 mg PO SuMoTJosue@1700 tab 12/30/19 Primary Care Physician: Tarah Dubon DO [Primary Care Provider] - Test Results: Test results from this visit will be discussed in further detail at your follow- up appointment, if applicable. Please Follow Up With: Nghia Kent MD When: saturday01/04/20 at [facility]. Proposed Discharge Date: 12/30/19
--- NOTE | 2019-12-30 17:47 | DS.PCM_ITS ---
Discharge Date and Diagnosis Date of Admission: 12/29/19 Date of Discharge: 12/30/19 - Primary Discharge Diagnosis Acute Problems: fasciotomy ulcer left medial leg. MRSA Tachycardia Anxiety - Secondary Discharge Diagnosis Chronic Problems: Hematoma with compartment syndrome left leg s/p fasciotomies. History of compromised skin grafts. nursing home use of anticoagulation. Lupus. Immunocompromised state due to high risk medication, Methotrexate, for Lupus, currently off Methotrexate. Hospital Course and Treatment Imaging Results: Diagnostic Data Chest X-Ray 12/29/19 08:16 IMPRESSION: Moderate sized hiatal hernia. Electronically Signed: Yan Urbano, at 10:05 EDT , Service support , Consultations 12/29/19 08:16 Consult: Onc/Wound/spectroscopist Routine Comment: Reason for Consult:: nonhealing fasciotomy ulcer left medial leg Comments:: [facility] - Dr. Nguyen. Operations: None Procedures: EKG Summary of Care Provided: Patient was scheduled for elective debridement nonhealing fasciotomy ulcer left medial leg with complex secondary wound closure and possible skin grafting on 12/29/19. In the preop area she developed a heart rate in the 130's that was unresponsive to IV medication. The surgery was cancelled for today and she was admitted for evaluation of her uncontrolled tachycardia. Hospitalist Group was consulted for medical management. She stabilized over the next 24 hours as her heart rate came down into the 80's. She responded to Ativan and an increased dose of Metoprolol. Her TSH was normal. The Magnesium was 1.7. She remained stable with a normal heart rate over the next 24 hours and was discharged home the next day in stable condition. Her heart rate was 96 at discharge. Her surgery was re-scheduled for this Saturday01/01/20. - Physical Exam Vitals/I&O's: Vital Signs Temp Pulse Resp BP Pulse Ox 97.8 F 96 18 107/60 95 12/30/19 15:13 12/30/19 15:13 12/30/19 15:13 12/30/19 15:13 12/30/19 15:13 Oxygen Delivery Method Room Air Weight: 327 lb 15.989 oz Body Mass Index (BMI) 54.6 Finger Stick Blood Glucose 115 Intake and Output for Last 24 Hours 12/28/19 12/29/19 12/30/19 23:59 23:59 23:59 Intake Total 2685.67 / 2685.67 1395 / 1395 Balance 2685.67 / 2685.67 1395 / 1395 General: Alert, Oriented x3 HEENT: PERRLA, EOMI Oral: Moist Mucosa Neck: Supple Abdomen: Soft, Non-Distended Skin: Ulcer/ Wound - left medial leg ulcer is stable. Redressed with Silver dressing. Neurological: Cranial nerves II-XII grossly intact Psych/Mental Status: Normal Affect, Appropriate Laboratory Results 12/30/19 05:04: WBC 8.6, RBC 3.97 L, Hgb 11.4 L, Hct 38.0, MCV 95.7, MCH 28.7, MCHC 30.0 L, RDW Std Deviation 53.1 H, RDW Coeff of Chepe 15.3 H, Plt Count 266, MPV 9.3, Immature Gran % (Auto) 0.200, Neut % (Auto) 52.2, Lymph % (Auto) 36.3, Weber % (Auto) 8.1, Eos % (Auto) 2.5, Baso % (Auto) 0.7, Absolute Neuts (auto) 4.5, Absolute Lymphs (auto) 3.10, Nucleated RBC % 0 12/30/19 05:04: Sodium 140, Potassium 4.0, Chloride 103, Carbon Dioxide 30.0, Anion Gap 7, BUN 14, Creatinine 0.70, Estim Creat Clear Calc 87.48, Est GFR (MDRD) Af Amer 115, Est GFR (MDRD) Non-Af 95, BUN/Creatinine Ratio 20.1 H, Glucose 79, Calcium 8.8, Magnesium 2.3, Total Bilirubin 0.30, AST 27, ALT 27, Alkaline Phosphatase 75, Total Protein 7.1, Albumin 2.8 L, Globulin 4.3 H, Albumin/Globulin Ratio 0.7 L 12/30/19 05:04: PT 13.8, INR 1.1 Current Medications Acetaminophen (Tylenol) 650 mg PO Q6H PRN PRN PRN Reason: Pain Score 1-04/30 Last Admin: 12/30/19 05:52 Dose: 650 mg Documented by: Aripiprazole (Abilify) 2 mg PO DAILY [facility] Last Admin: 12/30/19 09:15 Dose: 2 mg Documented by: Bupropion HCl (Wellbutrin Xl) 300 mg PO DAILY [facility] Last Admin: 12/30/19 09:15 Dose: 300 mg Documented by: Diphenhydramine HCl (Benadryl) 50 mg PO BID PRN PRN PRN Reason: itching Last Admin: 12/30/19 05:52 Dose: 50 mg Documented by: Docusate Sodium (Colace) 100 mg PO BID [facility] Last Admin: 12/30/19 09:15 Dose: 100 mg Documented by: Doxycycline Monohydrate (Doxycycline) 100 mg PO BID [facility] Last Admin: 12/30/19 09:15 Dose: 100 mg Documented by: Enoxaparin Sodium (Lovenox) 150 mg SC Q12@0600,1800 [facility] Last Admin: 12/30/19 05:53 Dose: 150 mg Documented by: Ferrous Sulfate (Ferrous Sulfate) 325 mg PO DAILY@1200 [facility] Last Admin: 12/30/19 09:15 Dose: 325 mg Documented by: Folic Acid (Folic Acid) 1 mg PO DAILY@0800 [facility] Last Admin: 12/30/19 09:15 Dose: 1 mg Documented by: Lactated Ringer's () 1,000 mls @ 60 mls/hr IV .[id number] [facility] Last Admin: 12/30/19 04:20 Dose: 60 mls/hr Documented by: Lactobacillus Acidophilus (Acidophilus) 1 tablet PO BID [facility] Last Admin: 12/30/19 09:15 Dose: 1 tablet Documented by: Metoprolol Succinate (Toprol Xl (Beta Christin)) 50 mg PO DAILY [facility] Last Admin: 12/30/19 09:24 Dose: 50 mg Documented by: Nutritional Formula (Ghassan - [place] Flavor) 1 packet PO BIDCM [facility] Last Admin: 12/30/19 09:16 Dose: Not Given Documented by: Ondansetron HCl (Zofran) 4 mg IV Q6H PRN PRN PRN Reason: NAUSEA Oxycodone HCl (Oxyir) 5 mg PO Q6H PRN PRN PRN Reason: Pain Score 6-10/10 Last Admin: 12/30/19 09:15 Dose: 5 mg Documented by: Pantoprazole Sodium (Protonix) 40 mg PO BID [facility] Last Admin: 12/30/19 09:15 Dose: 40 mg Documented by: Pramipexole Dihydrochloride (Mirapex) 1 mg PO QHS [facility] Last Admin: 12/29/19 21:21 Dose: 1 mg Documented by: Prednisone () 8 mg PO DAILY@0800 [facility] Last Admin: 12/30/19 09:15 Dose: 8 mg Documented by: Promethazine HCl (Phenergan Tablet) 25 mg PO Q4H PRN PRN PRN Reason: NAUSEA/VOMITING Sodium Chloride () 10 - 40 ml IV UD PRN PRN Reason: SALINE FLUSH Trazodone HCl (Desyrel) 150 mg PO QHS [facility] Last Admin: 12/29/19 21:22 Dose: 150 mg Documented by: Venlafaxine HCl (Effexor Xr) 225 mg PO DAILY [facility] Last Admin: 12/30/19 09:15 Dose: 225 mg Documented by: Warfarin Sodium (Coumadin (Pbkc)) 5 mg PO SuMoTuThSa@1700 [facility] Last Admin: 12/29/19 17:08 Dose: 5 mg Documented by: Discharge Diet: No Restrictions, - - encourage nutritional supplementation with protein to help the healing process. Discharge Activity: May Drive, May Shower, - - elevate legs when sitting. continue silver dressing changes daily. May shower in (days): 1 - at time of dressing change. May resume sexual activity in: No Restrictions Weight Bearing Status: Weight bearing as tolerated Keep extremity elevated above heart level: Legs Call your doctor if your incision/area has: Continuous Slow Oozing, Sudden Increased Bleeding, Increased Pain/ Swelling, Increased Redness, Foul Smelling Discharge, Swelling at the incision site Call your doctor if you observe: Fever of 101 or Higher, Coldness, Increased Pain, Shortness of breath, Chest pain, Calf discomfort, Uncontrolled pain Suture Line Care: - - daily silver dressing changes to left leg followed by tubigrip for compression. Change Dressing in (Days):: 1 - silver dressing changes daily. Cleanse incision/area with: - - may get ulcer wet in the shower at the time of the silver dressing change. Home Medications: Medications to take at Discharge Aripiprazole [Abilify] 2 mg PO DAILY 07/10/18 Omeprazole 40 mg PO BID 07/10/18 Bupropion HCl [Bupropion Xl] 300 mg PO DAILY 08/25/18 Ropinirole HCl [Ropinirole ER] 2 mg PO QHS 08/25/18 Folic Acid 1 mg PO DAILY 01/23/19 Ferrous Sulfate 325 mg PO DAILY 03/27/19 Lactobacillus Acidophilus [Acidophilus] 1 ea PO BID 03/27/19 Venlafaxine XR [Effexor Xr] 225 mg PO DAILY 04/10/19 traZODone [Desyrel] 150 mg PO QHS 04/10/19 Prednisone 8 mg PO DAILY 05/18/19 doxycycline monohydrate 100 mg capsule 100 mg PO BID #42 cap 12/15/19 Metoprolol(XL)Succ [Toprol Xl (Beta Christin)] 50 mg PO DAILY tab 12/30/19 Warfarin [Coumadin] 5 mg PO SuMoTuThSa@1700 tab 12/30/19 Oxycodone HCl/Acetaminophen [Oxycodone-Acetaminophen 5-325] 1 tab PO .Q4HOUR PRN PRN 7 Days #40 tab 01/01/20 Primary Care Physician: Tarah Dubon DO [Primary Care Provider] - Please Follow Up With: Nghia Kent MD When: saturday01/04/20 at [facility]. Additional Instructions: Patient will return this Saturday01/01/20 for her re-scheduled surgical procedure. Disposition: Home Minutes spent on discharge:: 30 Patient Condition:: Stable Medical Necessity - Tobacco Use Smoking Status: Never smoker Meaningful Use Info Meaningful Use Diagnoses (Choose all that apply): None applicable Inpatient E&M: 61566 Disch Hosp - ICD-10 - L97.922, A49.02, R00.0, F41.9, T14.8xxS, T79.A22S, T86.828, Z79.01, M32.9, Z79.899
== END 2019-12-30 18:28 | disposition home or self-care (01) | DRG 201 ==
LOC: PCU 08:46
PROVIDERS: Anesthesiology; Internal Medicine; Admitting Provider Surgery; PCP Family Medicine; Visit Provider Surgery
DX: R00.0 Tachycardia, unspecified (principal); F41.9 Anxiety disorder, unspecified; L97.922 Non-pressure chronic ulcer of unspecified part of left lower leg with fat layer exposed; T79.A22A Traumatic compartment syndrome of left lower extremity, initial encounter; B95.62 Methicillin resistant Staphylococcus aureus infection as the cause of diseases classified elsewhere; T86.828 Other complications of skin graft (allograft) (autograft); Z11.59 Encounter for screening for other viral diseases; Z53.8 Procedure and treatment not carried out for other reasons; G25.81 Restless legs syndrome; K21.9 Gastro-esophageal reflux disease without esophagitis; D64.9 Anemia, unspecified; E72.12 Methylenetetrahydrofolate reductase deficiency; D68.62 Lupus anticoagulant syndrome; M06.9 Rheumatoid arthritis, unspecified; F32.9 Major depressive disorder, single episode, unspecified; E83.42 Hypomagnesemia; E66.01 Morbid (severe) obesity due to excess calories; Z68.43 Body mass index [BMI] 50.0-59.9, adult; Z86.711 Personal history of pulmonary embolism; Z79.01 Long term (current) use of anticoagulants; Z96.653 Presence of artificial knee joint, bilateral; Z79.899 Other long term (current) drug therapy
CPT/HCPCS: 36415; 36416; 71046; 80053; 83735; 84134; 84443; 85025; 85027; 85610; 85652; 86140; 87635; 93005; G2023; J7120; J2405; U0003

== ENCOUNTER 2020-01-01 15:16 | Observation (INO) | payer MEDICAID, SELFPAY ==
[2019-12-29 09:32] VITALS: BMI 54.6
[2020-01-01] VITALS (15 sets, daily range): BP systolic 97–158; BP diastolic 49–107; PULSE 99–109; RESP 16–18; TEMP 36.4–37.1; O2SAT 93–98; BMI 52.0
--- NOTE | 2020-01-01 | UL_PTH ---
PATIENT: RICCARDO VICKERS LOC: [facility]3 U#:[id number] AGE/SX: 49/F ROOM: MS316 RE01/01/[address]: Dr. Nghia Kent MD : 1970 BED: 1 DIS: 01/02/2020 SPEC #: [id number] RECD: 01/01/20 15:01 STATUS: JASON REQ #: [id number] ODALYS: 01/01/20 00:[address]: Nghia Kent DEPT: SURGICAL PATHOLOGY RECD BY: Teddy Kang ENTERED: 01/04/20 09:40 SP TYPE: ULCER OTHR DR: Dr. Tarah Dubon, Tissues: ULCER Procedures: Surgery Specimen Level III HEADER OPERATION: Debridement wound with FTSG, MRSA wound left leg PRE-OP DIAGNOSIS: Nonhealing fasciotomy ulcer left medial leg TISSUE SUBMITTED: Nonhealing fasciotomy MRSA ulcer left medial leg MICROSCOPIC DIAGNOSIS Nonhealing fasciotomy MRSA ulcer left medial leg, debridement wound: Pieces of skin with underlying tissue with ulceration, acute and chronic inflammation, granulation tissue reaction and fibrosis. MARTHA:charley 01/05/20 MICROSCOPIC DESCRIPTION Slides are reviewed. GROSS DESCRIPTION Received in fixative is one container labeled with the patient's name and designated nonhealing fasciotomy MRSA ulcer. The specimen consists of two triangular pieces of skin with underlying tissue measuring in aggregate 12 x 2 cm and up to 1.5 cm in thickness. The skin surface shows a focal area of ulceration. Student Services Counselor sections are submitted in two cassettes. / MARTHA:charley 01/04/20 TC:2 CPT: 46203
[2020-01-01] MEDS: Vancomycin IV 1,000 MG/200 ML BAG 200 MG IV (08:30)
[2020-01-01 10:46] LABS: Prothrombin Time Fingerstick 15.1 SEC (11.9-14.4)
[2020-01-01] MEDS: Lactated Ringers 1,000 ML 100 ML IV ×2 (10:50→13:00)
--- NOTE | 2020-01-01 11:38 | HP.PCM_ITS ---
History and Physical Date of Admission: 01/01/20 Date of Admission: 12/29/19 HISTORY OF PRESENT ILLNESS The patient is a 49 year old F who developed a compartment syndrome in 12/07 and she was taken urgently to the OR on 12/13/[address] Sawant for fasciotomies. Medial and lateral leg wounds were created. She underwent wound care with the VAC and the Silver dressing changes. She was taken back to surgery on 04/10/19 where she underwent surgical preparation left medial leg with excisional d ebridement nonhealing fasciotomy ulcer and placement of AmnioFill placental connective tissue powder and STSG reconstruction from left flank (48 cm2) and surgical preparation left lateral leg with excisional debridement nonhealing fasciotomy ulcer and placement of AmnioFill placental connective tissue powder and STSG reconstruction from left flank (20 cm2). She developed some compromise to the skin grafts and underwent HBO treatments. Since then the lateral wound has healed. However, she still has a nonhealing ulcer left medial leg. Recent culture showed MRSA and she was started on Doxycycline. She presents today for further operative debridement and complex secondary wound closure and possible skin grafting to the left medial leg ulcer. 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 Bupropion. Iron sulfate. Folic acid. Toprol. Omeprazole. Percocet. Prednisone. Ropinirole. Trazodone. Effexor. Coumadin. Doxycycline. Acidophilus. SOCIAL HISTORY Lives: With Family Smoking Status: Never smoker Alcohol: None FAMILY HISTORY Maternal - No pertinent history Paternal - No pertinent history REVIEW OF SYSTEMS Constitutional: Denies: Chills, Fever, Weight Change. Eyes: Denies: Blurred vision. HEENT: Denies: Head Aches, Sinus Congestion, Sinus Drainage. Cardiovascular: Denies: Chest Pain, Palpitations. Respiratory: Denies: Cough, Shortness of Breath, Shortness of breath at rest, Sputum production. Gastrointestinal: Denies: Abdominal Pain, Nausea, Vomiting. Genitourinary: Denies: Dysuria. Musculoskeletal: Reports: Leg Pain, Muscle pain. Denies: Arm Pain, Back Pain, Foot Pain, Hand Pain, Joint Pain, Joint swelling. Skin: Denies: Rash, Wounds. Neurological: Denies: Numbness, Tingling, Focal weakness. Psychiatric: Denies: Anxiety, Depression, Homicidal Ideations, Suicidal Ideations. Hematologic/ Lymphatic: Denies: Easy Bruising, Easy Bleeding PHYSICAL EXAMINATION General: Alert, Oriented x3. HEENT: PERRLA, EOMI. Oral: Moist Mucosa Neck: Supple, Nontender. Lungs: Clear to auscultation. Cardiovascular: Regular Rhythm, Tachycardic Abdomen: Soft, Non-Distended. Skin: Nonhealing fasciotomy ulcer present left medial leg. Mild swelling present. Ulcer is clean with granulation tissue. Medial leg ulcer measures 6 x 1.6 x 0.4 cm. The length of the superior and inferior scarring with the central ulcer is 16 cm. Lymphatic: No Cervical, Supraclavicular, or Inguinal Adenopathy Neurological: Cranial nerves II-XII grossly intact Psych/Mental Status: Normal Affect, Appropriate, Alert and oriented to time, place, person, mood and affect ASSESSMENT 1. Nonhealing fasciotomy ulcer left medial leg. 2. Hematoma with compartment syndrome left leg s/p fasciotomies. 3. History of compromised skin grafts. 4. MRSA. 5. jail use of anticoagulation. 6. Lupus. 7. Immunocompromised state due to high risk medication, Methotrexate, for Lupus, currently off Methotrexate. PLAN Continue moistened silver dressing changes covered by adaptic. She is not showing much improvement most likely because of her edema. She wears Spandegrip for compression, which is not enough so will apply MENDEZ wrap in addition to the Spandigrip. Had an extended discussion with patient about the importance of com pression and offered 3M 2 layer wrap which the patient refused because it makes her anxiety increase. She had 8 applications of Epifix placental connective tissue graft. The left lateral leg ulcer remains healed. Elevate left leg when sitting. At the time of the surgery on 04/10/19, wound culture showed Enterobacter cloacae, Acinetobacter baumannii, Streptococcus agalactiae, and Anaerobic cocci. She was treated perioperatively with Levaquin and Augmentin. Recent wound culture from 12/07/19 showed MRSA and she was started on Doxycycline. Prealbumin from 04/11/19 was 18.8. Encourage nutritional supplementation wit protein to help the healing process. Discussed further operative debridement because of dense scar tissue formation that is inhibiting further healing. The swelling has improved and at the time of operative debridement, may be able to close the ulcer with a complex secondary wound closure. If the central area is too tight for closure, then skin grafting can be done in the central area. Surgery would be done under general anesthesia on an outpatient basis. Patient was informed of the risks and complications of the procedure including alternatives to surgery. These were discussed with her personally. She voices understanding and wishes to proceed. Surgery will be done under general anesthesia with a surgical observation overnight stay in the hospital. We discussed the current risks associated with COVID-19. While it is understood that there is a community spread of COVID-19, the risk of garret COVID-19 while at [facility] ([facility]) is very low; however, the risk cannot be completely mitigated because of the community spread of the disease. We discussed in detail the risk of exposure to and/or potential harm posed by the COVID-19 virus with having a surgery/procedure at this time versus the risk of delaying the surgery/procedure. It is not possible to know either the risk of delaying the surgery or procedure or chance of getting an infection with perfect accuracy, but a joint decision was made to proceed at this time with the scheduled surgery/procedure as indicated on the consent form. Patient was notified that we will need to comply with any screening or testing [facility] wishes to perform or that surgery may be delayed for any positive results. At the present time there is no testing for the surgeons. The hospital is working on a policy for that to have the surgeon and surgical staff tested. So she has the option to wait until the surgeon and surgical staff are tested or she can proceed with the surgery at this time before the surgeon and surgical staff are tested. As long as the pain can be temporarily controlled, the surgery can be delayed until surgeon and surgical staff testing are done. She has thought about it, and she wants to proceed with the surgery at this time. Procedure Criteria Procedure Type: Elective COVID Risk Discussion: The surgeon/proceduralist and patient have discussed in detail the risk of exposure to and/or potential harm posed by the COVID-19 virus with having a surgery/procedure at this time versus the risk of delaying the surgery/procedure. It is not possible to know either the risk of delaying the surgery or procedure or chance of getting an infection with perfect accuracy, but a joint decision was made between the patient and the surgeon/proceduralist to proceed at this time with the scheduled surgery/procedure as indicated on the consent form. I have re-examined the patient. There are no clinical changes since date of exam.
--- NOTE | 2020-01-01 12:54 | OP.PCM_ITS ---
Report of Operation Date of Procedure: 01/01/20 Pre-Operative Diagnosis: 1. Nonhealing fasciotomy ulcer left medial leg. 2. Hematoma with compartment syndrome left leg s/p fasciotomies. 3. History of compromised skin grafts. 4. MRSA. 5. 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 6. Lupus. 7. Immunocompromised state due to high risk medication, Methotrexate, for Lupus, currently off Methotrexate. Post-Operative Diagnosis: Same. Surgery/Procedure Performed:: Surgical preparation left medial leg with excisional debridement nonhealing fasciotomy MRSA ulcer and 18 cm complex secondary wound closure and placement of AmnioFill placental connective tissue powder, (500 mg). Description of Surgical Findings:: The patient is a 49 year old F who developed a compartment syndrome in 12/07 and she was taken urgently to the OR on 12/13/[address] Sawant for fasciotomies. Medial and lateral leg wounds were created. She underwent wound care with the VAC and the Silver dressing changes. She was taken back to surgery on 04/10/19 where she underwent surgical preparation left medial leg with excisional debridement nonhealing fasciotomy ulcer and placement of AmnioFill placental connective tissue powder and STSG reconstruction from left flank (48 cm2) and surgical preparation left lateral leg with excisional debridement nonhealing fasciotomy ulcer and placement of AmnioFill placental connective tissue powder and STSG reconstruction from left flank (20 cm2). She developed some compromise to the skin grafts and underwent HBO treatments. Since then the lateral wound has healed. However, she still has a nonhealing ulcer left medial leg. Recent culture showed MRSA and she was started on Doxycycline. Patient was informed of the risks and complications of the procedure including alternatives to surgery. These were discussed with the patient personally. Patient voices understanding and wishes to proceed. I used AmnioFill Placental Connective Tissue Powder, 500 mg. Catalog Number - [id number]. Lot Number - [id number]. Expiration - July 22, 2024. I used Ivy absorbable hemostat. Reference Number - [id number]. Lot Number - [id number]. Expiration - April 18, 2024. service agent: Wilmer Olmedo. Type of Anesthesia:: General Specimen's removed: Nonhealing fasciotomy MRSA ulcer left medial leg to Pathology and Micriobiology. Drains: Delvis. Estimated Blood Loss (mL): 100 ml. Description of Procedure: Patient was taken to OR in supine position and was placed under general anesthesia. The left leg was prepped and draped in the usual fashion. SCD's were placed for DVT prophylaxis. Perioperative antibiotics were given intravenously. Using xylocaine with epinephrine, the fasciotomy scar and ulcer left medial leg was infiltrated. After waiting 5 minutes for the anesthetic to take effect, I excised the fasciotomy scar and ulcer left medial leg down into the subcutaneous tissue down to the underlying muscle. No pus was seen. A lot of fat necrosis and dense scar was seen and excised. The resultant wound was soft. I elevated anterior and posterior skin flaps about 2.5 cm subfascially at the level of the underlying muscle. Good bleeding was seen in the muscle that was controlled with electrocautery and 4-0 Vicryl suture ligatures. The wound was irrigated with saline. A size 15 Delvis drain was placed through a separate stab incision inferiorly and secured to the skin with 3-0 Nylon suture. I then sprayed Ivy absorbable hemostat into the base of the wound to minimize seroma formation postoperatively. I also placed AmnioFill placental connective tissue powder into wound to aid in the healing process. I used 500 mg. The tissue that was excised was sent to Pathology for analysis to rule out carcinoma and to Microbiology for culture. A positive culture may necessitate antibiotic modification. A preop culture showed MRSA and she will be treated perioperatively with Vancomycin and will be sent home on Doxycycline. The wound was then closed in a complex multiple layered fashion with 2-0 Vicryl figure of eight interrupted sutures for the deep subcutaneous tissue and fascia. The deep dermis and subcutaneous tissue was approximated with 3-0 Monocryl interrupted sutures. The skin was approximated with 3-0 V lock unidirectional barbed running subcuticular suture. In the central aspect of the wound closure some additional 4-0 Prolene vertical mattress sutures were placed. This was followed by Histoacryl skin tissue adhesive. Kerlix gauze was applied to the incision followed by a compression ky wrap. The length of the complex closure repair was 18 cm. Patient tolerated the procedure well and was sent to PACU in satisfactory condition. Patient will be sent home on antibiotics and pain medication. Patient will followup next week at the Wound Center for a wound check and for discussion of the pathology report and for discussion of the microbiology report. A positive culture may necessitate antibiotic modification. The central Prolene sutures will be removed in 2-3 weeks. The drain will be removed in 10-14 days. She will keep her left leg elevated during the initial postoperative period. She can ambulate but should minimize standing. Grafts/Implants Used: AmnioFill Placental Connective Tissue Powder. - Complications None. - Admit VTE Documentation VTE Present on Admission: No - Patient is on Coumadin. VTE Mechan Device Prophylaxis: SCD's VTE Pharm Prophylaxis ordered?: Yes Surgery Charges CPT - 07037 ICD-10 - L97.922, T14.8xxS, T79.A22S, T86.828, A49.02, Z79.01, M32.9, Z79.899 29018 L97.922, T14.8xxS, T79.A22S, T86.828, A49.02, Z79.01, M32.9, Z79.899
--- NOTE | 2020-01-01 13:09 | PCM.DC ---
You will use the following diet at home:: No restrictions, Other - encourage nutritional supplementation with protein to help the healing process. Discharge Activity: May not drive while taking narcotic pain medications., May Shower - wear plastic bag over left leg when showering., - - patient may ambulate. minimize standing. elevate left leg when sitting. May shower in (days): 1 May resume sexual activity in: No Restrictions Weight Bearing Status: Weight bearing as tolerated Keep extremity elevated above heart level: Left Leg Call your doctor if your incision/area has: Continuous Slow Oozing, Sudden Increased Bleeding, Increased Pain/ Swelling, Increased Redness, Foul Smelling Discharge, Swelling at the incision site Call your doctor if you observe: Fever of 101 or Higher, Coldness, Increased Pain, Shortness of breath, Chest pain, Calf discomfort, Uncontrolled pain Suture Line Care: - - after operative dressing removed, apply dry dressing daily followed by compression ky wrap. Change Dressing in (Days):: 3 - will change dressing at wound center. Cleanse incision/area with: - - may get incision wet in the shower after the drain is removed. Drain: Suction - abner drain to bulb suction. empty and record output daily. Additional Instructions: Patient has Doxycycline at home and will continue them. Allergies/Adverse Reactions: Allergies adhesive tape Adverse Reaction (Verified 12/23/19 08:05) Rash Medications to take at Discharge Aripiprazole [Abilify] 2 mg PO DAILY 07/10/18 Omeprazole 40 mg PO BID 07/10/18 Bupropion HCl [Bupropion Xl] 300 mg PO DAILY 08/25/18 Ropinirole HCl [Ropinirole ER] 2 mg PO QHS 08/25/18 Folic Acid 1 mg PO DAILY 01/23/19 Ferrous Sulfate 325 mg PO DAILY 03/27/19 Lactobacillus Acidophilus [Acidophilus] 1 ea PO BID 03/27/19 Venlafaxine XR [Effexor Xr] 225 mg PO DAILY 04/10/19 traZODone [Desyrel] 150 mg PO QHS 04/10/19 Prednisone 8 mg PO DAILY 05/18/19 doxycycline monohydrate 100 mg capsule 100 mg PO BID #42 cap 12/15/19 Metoprolol(XL)Succ [Toprol Xl (Beta Christin)] 50 mg PO DAILY tab 12/30/19 Warfarin [Coumadin] 5 mg PO SuMoTuThSa@1700 tab 12/30/19 Oxycodone HCl/Acetaminophen [Oxycodone-Acetaminophen 5-325] 1 tab PO .Q4HOUR PRN PRN 7 Days #40 tablet 01/01/20 The following prescriptions were given: Oxycodone HCl/Acetaminophen [Oxycodone-Acetaminophen 5-325] 1 tab PO .Q4HOUR PRN PRN 7 Days #40 tablet PRN Reason: Pain Score 4-5/10 Transmission Status: Received by [facility]/pharmacy #[id number] Primary Care Physician: Tarah Dubon DO [Primary Care Provider] - Test Results: Test results from this visit will be discussed in further detail at your follow-up appointment, if applicable. Please Follow Up With: Nghia Kent MD When: saturday01/04/20 at [facility]. call [phone] if questions. Proposed Discharge Date: 01/01/20
--- NOTE | 2020-01-01 14:57 | SUR.PHASEII ---
Pt tearful and feels pain would not be controlled at home, has needed much IV pain meds and still rates 8/10. Dr Kent made aware and plan is to admit pt for pain control. Will contact concreting supervisor, pt agrees with plan.
[2020-01-01] MEDS: oxyCODONE 5 MG Tablet PO (15:20)
[2020-01-01] MEDS: Acetaminophen 325 MG Tablet PO (15:20)
--- NOTE | 2020-01-01 16:09 | NURSING ---
pt refusing any nutritional supplement- ensure not ordered. Pt states it is gross and will not drink.
--- NOTE | 2020-01-01 16:25 | PCM.RX.CS ---
Consult Pharmacy has been consulted to manage selected antiobiotic: Vancomycin Type of Consult: New start Suspected Infection: Skin/Soft tissue Weight used for dosin kg Estimated Creatinine Clearance: 144ml/min Goal Trough: 10-15 mcg/mL Pharmacy Plan for Drug Dosing: NEW START IV VANCOMYCIN Consulting Physician: Donte Indication: Soft Tissue Goal Trough: 10-15 SrCr: 0.7 CrCl: 144ml/min (calculated using an Adjusted Body Weight of 93.98kg) Comments: pre op dose of Vancomycin 1000mg given 12/31 @ 30 Vancomcyin Dose: 1750mg q12h () Pending Level: 01/01 @ 1730 Pharmacy Service will continue to monitor and adjust dosing as required. Follow-Up Labs: Trough Vancomycin - 01/01 @ 1733
[2020-01-01] MEDS: Lactated Ringers 1,000 ML 60 ML IV (16:29)
[2020-01-01] MEDS: HYDROmorphone 1 MG/ML Syringe IV ×3 (16:29→23:46)
[2020-01-01] MEDS: 0.9% Saline Lock 10 ML Syringe IV (16:29)
[2020-01-01] MEDS: diazePAM 5 MG Tablet PO ×2 (17:54→23:46)
[2020-01-01] MEDS: Docusate Sodium 100 MG Capsule PO (21:10)
[2020-01-01] MEDS: traZODone 50 MG Tablet 150 MG PO (21:11)
[2020-01-01] MEDS: Pramipexole Di-HCl 1 MG Tablet PO (21:12)
[2020-01-01] MEDS: Pantoprazole Sodium 40 MG Tablet PO (21:12)
[2020-01-02] MEDS: oxyCODONE 5 MG Tablet 10 MG PO ×3 (02:54→13:05)
[2020-01-02 03:10] VITALS: BP 112/63; PULSE 92; RESP 18; TEMP 36.6; O2SAT 95
[2020-01-02] MEDS: Lactated Ringers 1,000 ML 80 ML IV (06:01)
[2020-01-02] MEDS: diazePAM 5 MG Tablet PO ×2 (06:01→11:53)
[2020-01-02 06:39] LABS: Hematocrit 35.7 % (37-47); Mean Corp Hgb Conc 30.8 g/dL (32-36); Mean Corpuscular Hgb 28.9 pg (27.0-32.0); Mean Corpuscular Volume 93.9 fL (81-99); Mean Platelet Vol. 9.4 fl (6.2-12.0); Platelet Count 302 K/mm3 (150-450); RBC Distribution Width CV 14.6 % (11.6-14.6); RBC Distribution Width SD 49.6 fl (35.1-43.9); White Blood Count 11.1 K/mm3 (4.4-11.0)
[2020-01-02 07:08] LABS: ALB/GLOB Ratio 0.7 RATIO (0.9-2.4); AST(SGOT) 17 U/L (15-37); Alanine Aminotransfer ALT/SGPT 24 U/L (13-56); Albumin, Serum 2.8 g/dL (3.2-5.0); Alkaline Phosphatase 71 U/L (45-117); Anion Gap 5 (5-15); BUN 11 mg/dL (7-18); Calcium,Total 8.6 mg/dL (8.5-10.1); Chloride 103 mmol/L (98-107); Creatinine, Serum 0.69 mg/dL (0.55-1.02); EST Glomerular Filtration Rate 97 mL/min (>60); Erythrocyte Sedimentation Rate 44 mm/hr (0-20); Est Glom Filt Rate - Afr Amer 117 mL/min (>60); Estimated Creatinine Clearance 92.33 ml/min; Globulin 4.3 g/dL (2.2-4.2); Glucose 105 mg/dL (74-106); Potassium 3.8 mmol/L (3.5-5.1); Prealbumin 25.6 mg/dL (20.0-40.0); Protein, Total 7.1 g/dL (6.4-8.2); Sodium Level 138 mmol/L (136-145)
[2020-01-02] MEDS: Folic Acid 1 MG Tablet PO (08:21)
[2020-01-02 08:24] VITALS: BP 119/71; PULSE 93; RESP 16; TEMP 36.5; O2SAT 92
[2020-01-02] MEDS: Pantoprazole Sodium 40 MG Tablet PO (08:32)
[2020-01-02] MEDS: Venlafaxine XR 75 MG Capsule 225 MG PO (08:32)
[2020-01-02] MEDS: HYDROmorphone 1 MG/ML Syringe IV (09:19)
[2020-01-02] MEDS: Docusate Sodium 100 MG Capsule PO (09:21)
[2020-01-02] MEDS: buPROPion (XL) 300 MG TABLET.XL PO (09:21)
[2020-01-02 09:22] VITALS: BP 119/71; PULSE 93
[2020-01-02] MEDS: Metoprolol(XL)Succ 50 MG Tablet PO (09:22)
[2020-01-02] MEDS: ARIPiprazole 2 MG Tablet PO (11:50)
[2020-01-02] MEDS: Ferrous Sulfate 325 MG Tablet PO (11:51)
[2020-01-02 13:08] VITALS: BP 115/67; PULSE 86; RESP 16; TEMP 36.8; O2SAT 98
--- NOTE | 2020-01-02 14:23 | PCM.PN.SRG ---
Subjective: Postop #1 Patient is resting comfortably. She is tolerating po analgesia. She spent the night because of the need for IV analgesia. - Physical Exam Vitals/I&O's: Vital Signs Temp Pulse Resp BP Pulse Ox 98.2 F 86 16 115/67 98 01/02/20 13:08 01/02/20 13:08 01/02/20 13:08 01/02/20 13:08 01/02/20 13:08 Oxygen Flow Rate (L/min) 2 Oxygen Delivery Method Room Air Weight: 322 lb 4.559 oz Body Mass Index (BMI) 52.0 Finger Stick Blood Glucose 115 Intake and Output for Last 24 Hours 12/31/19 01/01/20 01/02/20 23:59 23:59 23:59 Intake Total 3461.08 / 3461.08 3634.75 / 3634.75 Output Total 1060 / 1060 2105 / 2105 Balance 2401.08 / 2401.08 1529.75 / 1529.75 Drainage 10 ml yesterday, 55 ml today. General: Alert, Oriented x3 HEENT: PERRLA, EOMI Oral: Moist Mucosa Neck: Supple Abdomen: Soft, Non-Distended Skin: Incision - Dressing is dry. Incision is dry and intact. Neurological: Cranial nerves II-XII grossly intact Psych/Mental Status: Normal Affect, Appropriate Microbiology Past 72 Hours 01/01/20 Unknown Tissue - Leg, Left Gram Stain - Final 01/01/20 Unknown Tissue - Leg, Left Wound Culture - Preliminary No growth-Final to follow Laboratory Results 01/02/20 06:10: WBC 11.1 H, RBC 3.80 L, Hgb 11.0 L, Hct 35.7 L, MCV 93.9, MCH 28.9, MCHC 30.8 L, RDW Std Deviation 49.6 H, RDW Coeff of Chepe 14.6, Plt Count 302, MPV 9.4, ESR 44 H 01/02/20 06:10: Sodium 138, Potassium 3.8, Chloride 103, Carbon Dioxide 30.0, Anion Gap 5, BUN 11, Creatinine 0.69, Estim Creat Clear Calc 92.33, Est GFR (MDRD) Af Amer 117, Est GFR (MDRD) Non-Af 97, BUN/Creatinine Ratio 16.0, Glucose 105, Calcium 8.6, Total Bilirubin 0.20, AST 17, ALT 24, Alkaline Phosphatase 71, C-React Prot Ext Range 19.60 H, Total Protein 7.1, Albumin 2.8 L, Globulin 4.3 H, Albumin/Globulin Ratio 0.7 L, Prealbumin 25.6 Current Medications Aripiprazole (Abilify) 2 mg PO DAILY [facility] Last Admin: 01/02/20 11:50 Dose: 2 mg Documented by: Bupropion HCl (Wellbutrin Xl) 300 mg PO DAILY [facility] Last Admin: 01/02/20 09:21 Dose: 300 mg Documented by: Diazepam (Valium) 5 mg PO 4X/DAY PRN PRN PRN Reason: SPASMS Last Admin: 01/02/20 11:53 Dose: 5 mg Documented by: Docusate Sodium (Colace) 100 mg PO BID [facility] Last Admin: 01/02/20 09:21 Dose: 100 mg Documented by: Ferrous Sulfate (Ferrous Sulfate) 325 mg PO DAILY@1200 [facility] Last Admin: 01/02/20 11:51 Dose: 325 mg Documented by: Folic Acid (Folic Acid) 1 mg PO DAILY@0800 [facility] Last Admin: 01/02/20 08:21 Dose: 1 mg Documented by: Hydromorphone HCl (Dilaudid Inj) 1 mg IV Q3H PRN PRN PRN Reason: Pain Score 6-10/10 Last Admin: 01/02/20 09:19 Dose: 1 mg Documented by: Lactated Ringer's () 1,000 mls @ 80 mls/hr IV .[id number] [facility] Last Infusion: 01/02/20 13:02 Dose: Infused Documented by: Vancomycin IV Pharmacy to Dose (1 ea/ Sodium Chloride) 500 mls @ 250 mls/hr IV X1 PRN; Protocol PRN Reason: Rx to Dose Sodium Chloride () 250 mls @ 15 mls/hr IV .[id number] PRN PRN Reason: Saline Flush Last Infusion: 01/02/20 00:45 Dose: 0 mls/hr Documented by: Vancomycin HCl 1,750 mg/ (Sodium Chloride) 535 mls @ 250 mls/hr IV Q12H [facility] Last Infusion: 01/02/20 08:35 Dose: Infused Documented by: Lactobacillus Acidophilus (Acidophilus) 1 tablet PO BID [facility] Last Admin: 01/02/20 08:33 Dose: 1 tablet Documented by: Metoprolol Succinate (Toprol Xl (Beta Christin)) 50 mg PO DAILY [facility] Last Admin: 01/02/20 09:22 Dose: 50 mg Documented by: Ondansetron HCl (Zofran) 4 mg IV Q6H PRN PRN PRN Reason: NAUSEA Oxycodone HCl (Oxyir) 10 mg PO Q4H PRN PRN PRN Reason: Pain Score 4-5/10 Last Admin: 01/02/20 13:05 Dose: 10 mg Documented by: Pantoprazole Sodium (Protonix) 40 mg PO BID [facility] Last Admin: 01/02/20 08:32 Dose: 40 mg Documented by: Pramipexole Dihydrochloride (Mirapex) 1 mg PO QHS [facility] Last Admin: 01/01/20 21:12 Dose: 1 mg Documented by: Prednisone 5 mg/ [facility]: 01/02/20 08:20 Dose: 8 mg Documented by: Promethazine HCl (Phenergan Tablet) 25 mg PO Q4H PRN PRN PRN Reason: NAUSEA/VOMITING Sodium Chloride () 10 - 40 ml IV UD PRN PRN Reason: SALINE FLUSH Last Admin: 01/01/20 16:29 Dose: 10 ml Documented by: Trazodone HCl (Desyrel) 150 mg PO QHS [facility] Last Admin: 01/01/20 21:11 Dose: 150 mg Documented by: Venlafaxine HCl (Effexor Xr) 225 mg PO DAILY [facility] Last Admin: 01/02/20 08:32 Dose: 225 mg Documented by: Warfarin Sodium (Coumadin (Pbkc)) 5 mg PO SuMoTuThSa@1700 [facility] Medical Necessity - Tobacco Use Smoking Status: Never smoker Tobacco Use: Non-smoker Assessment/Plan All Active Problems MRSA (methicillin resistant Staphylococcus aureus) (Acute) Sinus tachycardia (Acute) Open wound of left lower extremity (Acute) Hematoma (Acute) Compartment syndrome of left lower extremity (Acute) 1. Nonhealing fasciotomy ulcer left medial leg. 2. Hematoma with compartment syndrome left leg s/p fasciotomies. 3. History of compromised skin grafts. 4. MRSA. 5. [facility] use of anticoagulation. 6. Lupus. 7. Immunocompromised state due to high risk medication, Methotrexate, for Lupus, currently off Methotrexate. 8. s/p surgical preparation left medial leg with excisional debridement nonhealing fasciotomy MRSA ulcer and 18 cm complex secondary wound closure and placement of AmnioFill placental connective tissue powder, (500 mg). Patient is resting comfortably. She is tolerating po analgesia. Discharge home today. Wrote script for Percocet for pain (40 tabs). Will also write a script for Valium for spasm (30 tabs). Keep left leg elevated when sitting. Patient may ambulate. Minimize standing. Wear a plastic bag over left leg when showering. Will remove the drain at the Wound Center. Continue Doxycycline for the MRSA. Operative cultures are pending. Followup Wound Center Saturday01/04/20.
== END 2020-01-02 15:02 | disposition home or self-care (01) ==
LOC: SDC 01-04 08:12 → MS3 01-04 08:12
PROVIDERS: Anesthesiology; Admitting Provider Surgery; PCP Family Medicine; Referring Provider Surgery; Visit Provider Surgery
PROC: (CPT 13160; principal; 2020-01-01 11:15)
DX: L97.822 Non-pressure chronic ulcer of other part of left lower leg with fat layer exposed (principal); T79.A22A Traumatic compartment syndrome of left lower extremity, initial encounter; X58.XXXA Exposure to other specified factors, initial encounter; M32.9 Systemic lupus erythematosus, unspecified; Z79.899 Other long term (current) drug therapy; Z79.01 Long term (current) use of anticoagulants; Z79.52 Long term (current) use of systemic steroids; Z86.14 Personal history of Methicillin resistant Staphylococcus aureus infection; M06.9 Rheumatoid arthritis, unspecified
CPT/HCPCS: 00400; 13160; 15002; 36416; 80053; 84134; 85027; 85610; 85652; 86140; 87070; 87075; 87102; 87176; 87205; 87206; 87635; 88304; 96361; 96365; 96366; 96375; 96376; 97802; 99218; 99251; G2023; J7040; J7050; J7120; A4216; G0378; G0379; G0463; J2405; U0003

== ENCOUNTER 2020-01-18 09:30 | Outpatient (RCR) | payer MEDICAID, SELFPAY ==
[2019-12-21 00:21] VITALS: BP 130/88; PULSE 123; RESP 16; TEMP 36.5
[2019-12-21 09:02] VITALS: RESP 16; TEMP 36.9; BMI 52.2
--- NOTE | 2019-12-21 11:30 | PN.PCM_ITS ---
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 History of Wound: Surgery 04/10/19 - 1. Surgical preparation left medial leg with excisional debridement nonhealing fasciotomy ulcer and placement of AmnioFill placental connective tissue powder and STSG reconstruction from left flank (48 cm2). 2. Surgical preparation left lateral leg with excisional debridement nonhealing fasciotomy ulcer and placement of AmnioFill placental connective tissue powder and STSG reconstruction from left flank (20 cm2). She developed some skin graft compromise that necessitated HBO treatments to try and salvage the grafts. The left lateral leg skin graft has healed. The left medial leg skin graft ulcer persists. She also had applications of Epifix. Wound Care- Continue moistened silver with Adaptic daily. She is using spandagrip wrap for compression with an MENDEZ wrap at night. She is tolerating this Spandegrip much better than she did the Tubigrip. Wound culture 12/07/19 was positive for MRSA. She was started on Doxycycline. At the time of the surgery on 04/10/19, wound culture showed Enterobacter cloacae, Acinetobacter baumannii, Streptococcus agalactiae, and Anaerobic cocci. She was treated perioperatively with Levaquin and Augmentin. Prealbumin from 04/11/19 was 18.8. Encourage nutritional supplementation with protein to help the healing process. She underwent 18 out of 20 HBO treatments and stopped due to anxiety. She is scheduled for surgery on 12/29/19 for debridement and closure with a posible skin graft. Today she denies fever. Her appetite is ok. Progress of Wound: Mild improvement. - Physical Exam Vital Signs Temp Pulse Resp BP 98.4 F 123 H 16 130/88 H 12/21/19 09:02 12/21/19 00:21 12/21/19 09:02 12/21/19 00:21 General: Alert, Oriented x3, Cooperative HEENT: Atraumatic Oral: Moist Mucosa Lungs: Normal air movement Cardiovascular: Regular rate Abdomen: Obese Extremities: Edema - +2 Skin: Ulcer/ Wound - Left medial lower leg ulcer Wound Measurements and Assessment WC - Nurse 1 - General Ulcer Measurement Start: 12/21/19 09:02 Freq: Status: Active Protocol: Activity Type Activity Date Activity User E-Sign Co-Sign Detail Recorded Client Recorded Date Recorded By Document 12/21/19 09:02 MW [id number] 12/21/19 09:06 MW 12/21/19 09:02 Wound Center Nurse 1 [Ulcer Assessment] #1 LLL medial -Combined with other wound No -Current Size (cm) - Length 5.5 -Current Size (cm) - Width 1.3 -Current Size (cm) - Depth 0.4 -Total Square Cm 7.15 -Photo Taken No -Epithelialization None Present -Tunneling No -Undermining/Tunneling No -Circular Undermining No -Exudate Amt Medium -Exudate Type Yellow/Green -Wound Margin Fibrotic Scar, Thickened Scar -Granulation Amt Small (1-33%) -Granulation Quality [place] -Slough/Fibrin Yes -Necrosis Amt Medium (34-66%) -Necrotic Tissue Type Adherent Slough -Structure Exposed N/A -Texture (Kisha-wound Skin Appearance) Assessed, Localized Edema ,Scarring -Moisture (Kisha-wound Skin Appearance Assessed,Dry/ ) Scaly -Color (Kisha-wound Skin Appearance) No Abnormality, Assessed -Temperature (Kisha-wound Skin No Abnormality Appearance) (Pt Warm) -Tenderness on Palpation (Kisha-wound No Skin Appearance) -Ulcer Cleansing Rinsed/ Irrigated with Saline -Foul Odor after Cleansing No -Anesthetic Used 4% Lidocaine Solution [Edema Assessment] -Lower Limb Edema Present Yes -Left Calf (cm) 45.0 -Left Ankle (cm) 23.5 WC - Nurse 2 - General Ulcer CM Notes Start: 12/21/19 09:02 Freq: Status: Active Protocol: Activity Type Activity Date Activity User E-Sign Co-Sign Detail Recorded Client Recorded Date Recorded By Document 12/21/19 11:23 PL [id number] 12/21/19 11:24 PL 12/21/19 11:23 Wound Center Nurse 2 [Procedure/Treatment] #1 LLL medial -Time 09:15 -Correct Patient Yes -Correct Side, Site, Position Yes -Correct Procedure Yes -Procedure Performed Yes -Type of Procedure Debridement -Clinical Debridement Subcutaneous -Post Debridement Size (cm) - Length 5.3 -Post Debridement Size (cm) - Width 1.3 -Post Debridement Size (cm) - Depth 0.4 -Total Square Cm 6.89 -Wound/Ulcer Outcome Not Healed -Ulcer Cleansing Rinsed/ Irrigated with Saline -Foul Odor after Cleansing No -Bleeding Controlled with Pressure -Treatment Response Procedure Tolerated Well [See Physician Procedure note for Specifics] Pain Scale: 0-10 Numeric [Pain] -Is Patient Pain Free? Yes Musculoskeletal: No Tenderness to Palpation of Joints or Extremities Neurological: Neuro grossly intact Psych/Mental Status: Normal Affect, Appropriate Debridement Note Post-Debridement Measurements/Treatment WC - Nurse 2 - General Ulcer CM Notes Start: 12/21/19 09:02 Freq: Status: Active Protocol: Activity Type Activity Date Activity User E-Sign Co-Sign Detail Recorded Client Recorded Date Recorded By Document 12/21/19 11:23 [email or web address] [id number] 12/21/19 11:24 PL 12/21/19 11:23 Wound Center Nurse 2 #1 LLL medial -Time 09:15 -Correct Patient Yes -Correct Side, Site, Position Yes -Correct Procedure Yes -Procedure Performed Yes -Type of Procedure Debridement -Clinical Debridement Subcutaneous -Post Debridement Size (cm) - Length 5.3 -Post Debridement Size (cm) - Width 1.3 -Post Debridement Size (cm) - Depth 0.4 -Total Square Cm 6.89 -Wound/Ulcer Outcome Not Healed -Ulcer Cleansing Rinsed/ Irrigated with Saline -Foul Odor after Cleansing No -Bleeding Controlled with Pressure -Treatment Response Procedure Tolerated Well Pain Scale: 0-10 Numeric Is Patient Pain Free? Yes Wound debrided: Medial lower leg ulcer Laterality: Left Type of Debridement: Excisional debridement Anesthesia Used: 5% Lidocaine Gel Depth: Down to and including healthy tissue, in the subcutaneous layer Percentage of wound debrided: 100 Instrument Used: 5mm curette Tissue Removed: Subcutaneous tissue and slough Severity: Fat Layer Exposed Amount of bleeding with debridement: Mild Bleeding Controlled with: Pressure Patient tolerated procedure well Assessment/Plan Active Problems Bilateral lower extremity edema (Chronic) Ulcer of left lower extremity (Chronic) Lupus (Chronic) 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) on Methotrexate for Lupus High risk medication use (Chronic) on Methotrexate for Lupus FDC current use of anticoagulant (Chronic) Assessment: 1. Nonhealing fasciotomy ulcer left medial leg, skin grafted, with skin graft compromise. 2. Fasciotomy ulcer left lateral leg, skin grafted, with skin graft compromise that has healed. 3. Hematoma with compartment syndrome left leg s/p fasciotomies. 4. FDC use of anticoagulation. 5. Lupus. 6. Immunocompromised state due to high risk medication, Methotrexate, for Lupus. Plan: Continue moistened silver covered by adaptic. She is not showing much improvement most likely because of her edema. She wears Spandegrip for compression, which is not enough so will apply MENDEZ wrap in addition to the Spandigrip. Had an extended discussion with patient about the importance of compression and offered 3M2 layer wrap which the patient refused because it makes her anxiety increase. She had 8 applications of Epifix placental connective tissue graft. The left lateral leg ulcer remains healed. Elevate left leg when sitting. At the time of the surgery on 04/10/19, wound culture showed Enterobacter cloacae, Acinetobacter baumannii, Streptococcus agalactiae, and Anaerobic cocci. She was treated perioperatively with Levaquin and Augmentin. Prealbumin from 04/11/19 was 18.8. Encourage nutritional supplementation with protein to help the healing process. Discussed further operative debridement because of dense scar tissue formation that is inhibiting further healing. The swelling has improved and at the timeof operative debridement, may be able to close the ulcer with a complex secondary wound closure. If the central area is too tight for closure, then skin grafting can be done in the central area. Surgery would be done under general anesthesia on an outpatient basis. A preoperative wound culture was obtained on 12/07/19 which was positive for MRSA and she is taking Doxycycline. Patient was informed of the risks and complications of the procedure including alternatives to surgery. These were discussed with her personally. She voices understanding and wishes to proceed. Surgery scheduled for 12/29/19. We discussed the current risks associated with COVID-19. While it is understood that there is a community spread of COVID-19, the risk of garret COVID-[address] [facility] ([facility]) is very low; however, the risk cannot be completely mitigated because of the community spread of the disease. We discussed in detail the risk of exposure to and/or potential harm posed by the COVID-19 virus with having a surgery/procedure at this time versus the risk of delaying the surgery/procedure. It is not possible to know either the risk of delaying the surgery or procedure or chance of getting an infection with perfect accuracy, but a joint decision was made to proceed at this time with the scheduled surgery/procedure as indicated on the consent form. Patient was notified that we will need to comply with any screening or testing [facility] wishes to perform or that surgery may be delayed for any positive results. At the present time there is no testing for the surgeons. The hospital is working on a policy for that to have the surgeon and surgical staff tested. So she has the option to wait until the surgeon and surgical staff are tested or she can proceed with the surgery at this time before the surgeon and surgical staff are tested. As long as the pain can be temporarily controlled, the surgery can be delayed until surgeon and surgical staff testing are done. She will think about when she wants to proceed with the surgery and let us know. [id number]: [id number] Jessica subq tissue 20 sq cm/<
[2020-01-04 08:52] VITALS: BP 122/77; PULSE 91; RESP 20; TEMP 36.6; BMI 52.2
--- NOTE | 2020-01-04 14:38 | PN.PCM_ITS ---
Type of Wound Date of Service: 01/04/20 Chief Complaint: Nonhealing fasciotomy ulcer left medial leg with skin graft compromise. History of Wound: Surgery 01/01/20 - Surgical preparation left medial leg with excisional debridement nonhealing fasciotomy MRSA ulcer and 18 cm complex secondary wound closure and placement of AmnioFill placental connective tissue powder, (500 mg). Wound care - Operative dressing and a drain. Operative culture - negative thus far. She is being treated for preop (12/07/19) MRSA with Doxycycline. She was treated perioperatively with Vancomycin. Prealbumin from 01/02/20 was 25.6. Encourage nutritional supplementation with protein to help the healing process. Today she denies fever. Her appetite is good. Progress of Wound: Recent surgical closure 01/01/20. - Physical Exam Vital Signs Temp Pulse Resp BP 97.9 F 91 20 H 122/77 H 01/04/20 08:52 01/04/20 08:52 01/04/20 08:52 01/04/20 08:52 Wound Measurements and Assessment WC - Nurse 1 - General Ulcer Measurement Start: 12/21/19 09:02 Freq: Status: Active Protocol: Activity Type Activity Date Activity User E-Sign Co-Sign Detail Recorded Client Recorded Date Recorded By Document 01/04/20 08:52 DL [id number] 01/04/20 08:57 DL 01/04/20 08:52 Wound Center Nurse 1 [Ulcer Assessment] #1 LLL medial, post op incision -Current Size (cm) - Length 0.1 -Current Size (cm) - Width 0.1 -Current Size (cm) - Depth 0.1 -Total Square Cm 0.01 -Photo Taken Yes -Exudate Amt Small -Exudate Type Sanguineous -Wound Margin Flat & Intact -Granulation Amt Large (67-100%) -Granulation Quality [place] -Necrosis Amt Small (1-33%) -Necrotic Tissue Type Adherent Slough -Structure Exposed N/A -Texture (Kisha-wound Skin Appearance) Localized Edema ,Scarring -Moisture (Kisha-wound Skin Appearance Dry/Scaly ) -Color (Kisha-wound Skin Appearance) Erythema -Temperature (Kisha-wound Skin No Abnormality Appearance) (Pt Warm) -Tenderness on Palpation (Kisha-wound No Skin Appearance) -Ulcer Cleansing Wound Cleanser -Foul Odor after Cleansing No -Anesthetic Used 4% Lidocaine Solution [Edema Assessment] -Left Calf (cm) 46 -Left Ankle (cm) 24.6 Debridement Note Post-Debridement Measurements/Treatment WC - Nurse 2 - General Ulcer CM Notes Start: 12/21/19 09:02 Freq: Status: Active Protocol: Activity Type Activity Date Activity User E-Sign Co-Sign Detail Recorded Client Recorded Date Recorded By Document 12/21/19 11:23 PL [id number] 12/21/19 11:24 PL 12/21/19 11:23 Wound Center Nurse 2 #1 LLL medial, post op incision -Time 09:15 -Correct Patient Yes -Correct Side, Site, Position Yes -Correct Procedure Yes -Procedure Performed Yes -Type of Procedure Debridement -Clinical Debridement Subcutaneous -Post Debridement Size (cm) - Length 5.3 -Post Debridement Size (cm) - Width 1.3 -Post Debridement Size (cm) - Depth 0.4 -Total Square Cm 6.89 -Wound/Ulcer Outcome Not Healed -Ulcer Cleansing Rinsed/ Irrigated with Saline -Foul Odor after Cleansing No -Bleeding Controlled with Pressure -Treatment Response Procedure Tolerated Well Pain Scale: 0-10 Numeric Is Patient Pain Free? Yes Wound debrided: #1 Left lower medial leg. Laterality: Left Wound Grade/Stage: 2. No debridement was completed today - as patient had surgery 01/01/20 for surgical closure. Assessment/Plan Assessment: 1. Nonhealing fasciotomy ulcer left medial leg. 2. Hematoma with compartment syndrome left leg s/p fasciotomies. 3. History of compromised skin grafts. 4. MRSA. 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 6. Lupus. 7. Immunocompromised state due to high risk medication, Methotrexate, for Lupus, currently off Methotrexate. 8. s/p surgical preparation left medial leg with excisional debridement nonhealing fasciotomy MRSA ulcer and 18 cm complex secondary wound closure and placement of AmnioFill placental connective tissue powder, (500 mg). Plan: Continue dry dressings followed by compression with Surepress. Continue Doxycycline for preop (12/07/19) MRSA until the end of the month. The operative culture is negative thus far. Prealbumin was 25.3 on 01/02/20. Encourage nutritional supplementation with protein to help the healing process. Keep left leg elevated when sitting. Minimize standing. Followup one week to remove the drain. Will remove some of the central sutures in 2-3 weeks. [id number]: 18637 Global Visit - ICD-10 - Z48.89, L97.922, T14.8xxS, T79.A22S, T86.828, A49.02, Z79.01, M32.9, Z79.899
--- NOTE | 2020-01-06 13:06 | WC ---
TC FROM PT. STATES SHE CAN'T REAPPLY THE SUREPRESS. TOO DIFFICULT. WANTS TO KNOW IF SHE CAN APPLY AN MENDEZ WRAP OR HER TUBIGRIP INSTEAD. THIS NURSE SPOKE W/ JUAN R ROMAN, AND INSTRUCTED PT TO APPLY TIGHT MENDEZ. PT VOICED UNDERSTANDING.
--- NOTE | 2020-01-11 14:44 | WC ---
Patient called in, had been hospitalized for double pneumonia. Pt had an appt today that was cancelled and was wandering what to do with her BLUE drain. It still collects moderate drainage daily. Notified Dr Kent who ordered to keep drain in for another week. Keep area clean and dry, no showering. Pt is rescheduled to January 17 at 12:00. Pt verbalizes understanding of all of this.
[2020-01-18 09:06] VITALS: BP 153/87; PULSE 96; RESP 16; TEMP 36.3; BMI 52.2
--- NOTE | 2020-01-18 15:42 | PCM.WC.PN ---
(1) Ulcer of left lower extremity Status: Chronic Current Visit: Yes Code(s): L97.929 - Non-pressure chronic ulcer of unspecified part of left lower leg with unspecified severity (2) Bilateral lower extremity edema Status: Chronic Current Visit: Yes Code(s): R60.0 - Localized edema (3) Lupus Status: Chronic Current Visit: No Code(s): M32.9 - Systemic lupus erythematosus, unspecified (4) Immunocompromised state due to drug therapy Status: Chronic Current Visit: Yes Code(s): Z79.899 - Other correction (current) drug therapy Comment: on Methotrexate for Lupus (5) High risk medication use Status: Chronic Current Visit: Yes Code(s): Z79.899 - Other correction (current) drug therapy Comment: on Methotrexate for Lupus (6) [facility] current use of anticoagulant Status: Chronic Current Visit: Yes Code(s): Z79.01 - [facility] (current) use of anticoagulants Type of Wound Date of Service: 01/18/20 Chief Complaint: Nonhealing fasciotomy ulcer left medial leg with skin graft compromise. History of Wound: Surgery 01/01/20 - Surgical preparation left medial leg with excisional debridement nonhealing fasciotomy MRSA ulcer and 18 cm complex secondary wound closure and placement of AmnioFill placental connective tissue powder, (500 mg). She missed last weeks appointment because she was admitted to [facility] for pneumonia and possible sepsis. Wound care - Radha drain removed today without difficulty. Sutures removed without difficulty. She has one small opened area that she will apply Collagen Hydrogel covered by adaptic daily. She will use spanidigrip and MENDEZ wraps for compression. Operative culture - negative thus far. She is being treated for preop (12/07/19) MRSA with Doxycycline. She was treated perioperatively with Vancomycin. She continues the Doxycycline. Her prescription should be completed at the end of the week. Prealbumin from 01/02/20 was 25.6. Encourage nutritional supplementation with protein to help the healing process. Today she denies fever. Her appetite is good. Progress of Wound: Recent surgical closure 01/01/20. Radha drain and sutures removed today without difficulty. - Physical Exam Vital Signs Temp Pulse Resp BP 97.3 F L 96 16 153/87 H 01/18/20 09:06 01/18/20 09:06 01/18/20 09:06 01/18/20 09:06 General: Alert, Oriented x3, Cooperative HEENT: Atraumatic Oral: Moist Mucosa Lungs: Normal air movement Cardiovascular: Regular rate Abdomen: Obese Extremities: Capillary Refill Less than 3 Seconds, Edema - +2 non pitting edema Skin: Ulcer/ Wound - Left medial surgical incision. Radha drain pulled without difficulty. Removed sutures without difficulty. Wound Measurements and Assessment - Nurse 1 - General Ulcer Measurement Start: 12/21/19 09:02 Freq: Status: Active Protocol: Activity Type Activity Date Activity User E-Sign Co-Sign Detail Recorded Client Recorded Date Recorded By Document 01/18/20 09:06 [facility] [id number] 01/18/20 09:11 [facility] 01/18/20 09:06 Wound Center Nurse 1 [Ulcer Assessment] #1 LLL medial, post op incision -Combined with other wound No -Current Size (cm) - Length 0.1 -Current Size (cm) - Width 0.1 -Current Size (cm) - Depth 0.1 -Total Square Cm 0.01 -Photo Taken No -Texture (Kisha-wound Skin Appearance) Assessed, Scarring -Moisture (Kisha-wound Skin Appearance Assessed,Dry/ ) Scaly -Color (Kisha-wound Skin Appearance) Assessed -Temperature (Kisha-wound Skin No Abnormality Appearance) (Pt Warm) -Tenderness on Palpation (Kisha-wound No Skin Appearance) -Ulcer Cleansing soapy water -Foul Odor after Cleansing No -Anesthetic Used 4% Lidocaine Solution [Edema Assessment] -Lower Limb Edema Present Yes -Left Calf (cm) 46 -Left Ankle (cm) 24.9 - Nurse 2 - General Ulcer CM Notes Start: 12/21/19 09:02 Freq: Status: Active Protocol: Activity Type Activity Date Activity User E-Sign Co-Sign Detail Recorded Client Recorded Date Recorded By Document 01/18/20 09:37 [id number] 01/18/20 09:43 01/18/20 09:37 Wound Center Nurse 2 [Procedure/Treatment] #1 LLL medial, post op incision -Correct Patient No -Correct Side, Site, Position No -Correct Procedure No -Procedure Performed No -Post Debridement Size (cm) - Length 0.1 -Post Debridement Size (cm) - Width 0.1 -Post Debridement Size (cm) - Depth 0.1 -Total Square Cm 0.01 -Wound/Ulcer Outcome Not Healed -Ulcer Cleansing Rinsed/ Irrigated with Saline -Foul Odor after Cleansing No -Bioengineered Tissue No -Bleeding Controlled with Pressure -Offloading No -Treatment Response Procedure Tolerated Well [See Physician Procedure note for Specifics] Pain Scale: 0-10 Numeric [Pain] -Is Patient Pain Free? Yes Musculoskeletal: No Tenderness to Palpation of Joints or Extremities Neurological: Neuro grossly intact Psych/Mental Status: Normal Affect, Appropriate Debridement Note Post-Debridement Measurements/Treatment WC - Nurse 2 - General Ulcer CM Notes Start: 12/21/19 09:02 Freq: Status: Active Protocol: Activity Type Activity Date Activity User E-Sign Co-Sign Detail Recorded Client Recorded Date Recorded By Document 12/21/19 11:23 PL [id number] 12/21/19 11:24 PL Document 01/18/20 09:37 JF [id number] 01/18/20 09:43 JF 12/21/19 01/18/20 11:23 09:37 Wound Center Nurse 2 #1 LLL medial, post op incision -Time 09:15 -Correct Patient Yes No -Correct Side, Site, Position Yes No -Correct Procedure Yes No -Procedure Performed Yes No -Type of Procedure Debridement -Clinical Debridement Subcutaneous -Post Debridement Size (cm) - Length 5.3 0.1 -Post Debridement Size (cm) - Width 1.3 0.1 -Post Debridement Size (cm) - Depth 0.4 0.1 -Total Square Cm 6.89 0.01 -Wound/Ulcer Outcome Not Healed Not Healed -Ulcer Cleansing Rinsed/ Rinsed/ Irrigated with Irrigated with Saline Saline -Foul Odor after Cleansing No No -Bioengineered Tissue No -Bleeding Controlled with Pressure Pressure -Offloading No -Treatment Response Procedure Procedure Tolerated Well Tolerated Well Pain Scale: 0-10 Numeric Is Patient Pain Free? 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 Nonhealing fasciotomy ulcer left medial leg. 2. Hematoma with compartment syndrome left leg s/p fasciotomies. 3. History of compromised skin grafts. 4. MRSA. 5. [facility] use of anticoagulation. 6. Lupus. 7. Immunocompromised state due to high risk medication, Methotrexate, for Lupus, currently off Methotrexate. 8. s/p surgical preparation left medial leg with excisional debridement nonhealing fasciotomy MRSA ulcer and 18 cm complex secondary wound closure and placement of AmnioFill placental connective tissue powder, (500 mg). Plan: She missed last week's appointment because she was admitted to [facility] for pneumonia and possible sepsis. Wound care - Radha drain removed today without difficulty. Sutures removed without difficulty. She has one small opened area that she will apply Collagen Hydrogel covered by adaptic daily. She will use spanidigrip and MENDEZ wraps for compression. Continue Doxycycline for preop (12/07/19) MRSA until the end of the month. The operative culture is negative thus far. Prealbumin was 25.3 on 01/02/20. Encourage nutritional supplementation with protein to help the healing process. Keep left leg elevated when sitting. Minimize standing. Followup one week. [id number]: [id number] Global Visit
== END 2020-01-19 23:59 ==
LOC: WC 09:30
PROVIDERS: Family Provider Family Medicine; PCP Family Medicine; Referring Provider Surgery; Visit Provider Surgery
DX: L97.822 Non-pressure chronic ulcer of other part of left lower leg with fat layer exposed (principal); T86.829 Unspecified complication of skin graft (allograft) (autograft); Y83.9 Surgical procedure, unspecified as the cause of abnormal reaction of the patient, or of later complication, without mention of misadventure at the time of the procedure; T79.A22S Traumatic compartment syndrome of left lower extremity, sequela; X58.XXXS Exposure to other specified factors, sequela; Y92.9 Unspecified place or not applicable; R60.0 Localized edema; M32.9 Systemic lupus erythematosus, unspecified; F41.9 Anxiety disorder, unspecified; Z79.899 Other long term (current) drug therapy; Z79.01 Long term (current) use of anticoagulants; Z86.14 Personal history of Methicillin resistant Staphylococcus aureus infection
CPT/HCPCS: 11042; 99213; G0463

== ENCOUNTER 2020-01-26 07:20 | Emergency (ER) | payer MEDICAID, SELFPAY ==
[2020-01-25 09:11] VITALS: BMI 52.0
[2020-01-26] VITALS (7 sets, daily range): BP systolic 124–141; BP diastolic 77–88; PULSE 91–114; RESP 16–19; TEMP 36.4–36.6; O2SAT 90–99; BMI 53.6
--- NOTE | 2020-01-26 07:50 | EKG12_ITS ---
Test Reason : SOB Blood Pressure : / mmHG Vent. Rate : 097 BPM Atrial Rate : 097 BPM P-R Int : 148 ms QRS Dur : 086 ms QT Int : 340 ms P-R-T Axes : 014 038 026 degrees QTc Int : 431 ms Normal sinus rhythm Normal ECG Confirmed by BLAKE LEON, MILY ([id number]), editor publications JOSE PADGETT ([id number]) on 01/28/2020 1:16:03 PM Referred By: SILVESTRE Confirmed By:MILY LOZANO MD
--- NOTE | 2020-01-26 07:55 | ED.VIS.GEN ---
History of Present Illness Chief Complaint: Shortness of Breath Informant: Patient Onset: Days - 3 Narrative: Recurrent shortness of breath and cough for the past 3 days. Reports had pneumonia 10 days ago admitted to [facility] for 2 days due to low oxygen. She finished antibiotics. History of rheumatoid arthritis currently off steroids and immunosuppressants due to plastic surgery to the left leg by Dr. Kent in December. History of MTHFR, lupus, and PEs on warfarin. States chest discomfort along with back discomfort due to coughing. Reports headache. Reports recent diarrhea. Denies any loss of taste or smell. States had subjective fevers today. No nausea or vomiting. Denies tobacco history. Denies asthma or COPD. Prior similar symptoms: Yes Past Medical History - Allergies and Home Meds Allergies/Adverse Reactions: Allergies adhesive tape Adverse Reaction (Verified 01/26/20 07:24) Rash Primary Care Physician: Tarah Dubon DO [Primary Care Provider] - Past Medical History: - - MTHFR, lupus, PEs, anxiety, rheumatoid arthritis Surgical History: - - bilateral knee replacement Smoking Status: Never smoker - Family History Maternal Family History: Reports: Heart Disease Paternal Family History: Reports: - Review of Systems General: Reports: Fever. Denies: Chills, Sweats Eyes: Denies: Visual changes - bilaterally, Diplopia ENT: Denies: Rhinorrhea, Sore throat Cardiovascular: Denies: Chest pain, Palpitations Respiratory: Reports: Dyspnea, Cough, Sputum. Denies: Dyspnea on exertion Gastrointestinal: Reports: Diarrhea. Denies: Abdominal pain, Nausea, Vomiting, Melena, Hematochezia Genitourinary: Denies: Dysuria, Hematuria, Frequency Musculoskeletal: Denies: Back pain, Extremity Pain Skin: Denies: Rash, Wounds Neurological: Reports: Headache. Denies: Weakness, Numbness Physical Exam Vital Signs/Narrative: Vital Signs Temp Pulse Resp BP Pulse Ox 01/26/20 07:33 97.6 F L 114 H 16 124/77 H 94 01/26/20 07:22 97.6 F L 114 H 16 124/77 H 94 Inital Vital Signs reviewed: Yes General: Well nourished, Well developed, No Acute Distress Head: Normocephalic, Atraumatic Eyes: Perrl, EOMI ENT: Moist mucous membranes, No rhinorrhea Neck: Supple, Nontender, - - No meningismus Cardiovascular: Regular rate, Regular rhythm, No murmurs, Tachycardia, - - Heart rate 108 Respiratory: No distress, CTA bilaterally, Chest nontender Abdomen: Soft, Nontender, Nondistended, Normal bowel sounds Back: Nontender, Normal Inspection Extremities: Nontender, No edema Skin: Normal color, No rash Neurological: Alert, Oriented x3, Cranial nerves II-XII grossly intact, Normal Strength, Normal Sensation Psychological: Normal affect, Normal Mood Diagnostic/Tx/Re-eval Clinical Impression(s) from Imaging Studies Chest X-Ray 01/26/20 08:00 IMPRESSION: No acute abnormality is seen. Hiatal hernia. Electronically Signed: Yan Clement, at 8:21 EDT , Service support , Abnormal Lab Results 01/26/20 01/26/20 01/26/20 08:10 08:20 08:20 WBC 11.3 H RBC 4.07 L Hgb 11.7 L Hct 37.5 MCV 92.1 MCH 28.7 MCHC 31.2 L RDW Std Deviation 49.4 H RDW Coeff of Chepe 14.6 Plt Count 332 MPV 9.7 PT 26.9 H INR 2.5 Sodium Potassium Chloride Carbon Dioxide Anion Gap BUN Creatinine Estim Creat Clear Calc Est GFR (MDRD) Af Amer Est GFR (MDRD) Non-Af BUN/Creatinine Ratio Glucose Calcium COVID-19 (RODERICK) Not Detected 01/26/20 08:20 WBC RBC Hgb Hct MCV MCH MCHC RDW Std Deviation RDW Coeff of Chepe Plt Count MPV PT INR Sodium 137 Potassium 4.0 Chloride 101 Carbon Dioxide 30.0 Anion Gap 6 BUN 13 Creatinine 0.78 Estim Creat Clear Calc 78.51 Est GFR (MDRD) Af Amer 100 Est GFR (MDRD) Non-Af 83 BUN/Creatinine Ratio 16.6 Glucose 85 Calcium 8.7 COVID-19 (RODERICK) - EKG Initial EKG Interpretation: Sinus Rhythm - Sinus rate of 97, no ST or T wave changes. - Medical Decision Making Patient slight tachycardia on arrival improved after IV fluids. EKG sinus rhythm no acute changes. Labs were stable chest x-ray negative. Waiting for her COVID test which was obtained and negative. With her headache she had no focal deficit initially given Tylenol then Reglan and Benadryl with improvement. Initial pulse ox did dip down the 90s with medication however improved with the weight. She is transiently put on oxygen. She reports wheezing at home, she has no COPD history therefore no indication for antibiotics. Discussed bronchitis symptoms. She will be written for inhaler to use as needed along with antitussives. Patient is therapeutic on her INR 2.5. Therefore less likely concerns for any PE. She will follow-up with her PCP. Signs and sent discussed return. All questions were answered. ED Disposition - Plan for ED Patient: Disposition: Home or Assisted Living Diagnosis: Acute bronchitis, Cephalgia Instructions: Acute Bronchitis, Self-Care for Headaches Prescriptions: Albuterol IH (ProAir) [Proair Hfa (SP)Vent Pts] 1 puff INHALATION Q4H PRN PRN #1 inhaler PRN Reason: Wheezing Transmission Status: Pending to [id number] Benzonatate [Tessalon Perle] 200 mg PO TID PRN PRN #20 cap PRN Reason: Cough Transmission Status: Pending to [id number] Referrals: Tarah Dubon, [Primary Care Provider] - 3-5 Days if not improving
--- NOTE | 2020-01-26 08:00 | RAD_ITS ---
STUDY: X-RAY CHEST REASON FOR EXAM: Female, 49 years old. PT STATES WAS ADMITTED TO [facility] 2 WEEKS AGO FOR PNEUMONIA. STATES COUGH AND SOB IS WORSE TECHNIQUE: Single AP portable view of the chest. COMPARISON: Comparison is made with prior study dated December 29, 2019. FINDINGS: The lungs are clear and expanded. There is no demonstrated pleural abnormality. There is borderline cardiomegaly. Normal mediastinum and xiomara. Normal visualized pulmonary arteries. Normal visualized aortic arch and descending thoracic aorta. There are diffuse degenerative changes of the visualized thoracic spine. Normal visualized ribs, clavicles, and shoulders. Stable hiatal hernia. RAD/Chest 1 View (Portable) IMPRESSION: No acute abnormality is seen. Hiatal hernia. Electronically Signed: Yan Clement, at 8:21 EDT , Service support ,
[2020-01-26] MEDS: Acetaminophen 500 MG Tablet 1000 MG PO (08:13)
[2020-01-26 08:33] LABS: Hematocrit 37.5 % (37-47); Hemoglobin 11.7 g/dL (12.0-15.0); Mean Corp Hgb Conc 31.2 g/dL (32-36); Mean Corpuscular Hgb 28.7 pg (27.0-32.0); Mean Corpuscular Volume 92.1 fL (81-99); Mean Platelet Vol. 9.7 fl (6.2-12.0); Platelet Count 332 K/mm3 (150-450); RBC Distribution Width CV 14.6 % (11.6-14.6); RBC Distribution Width SD 49.4 fl (35.1-43.9); Red Blood Count 4.07 M/mm3 (4.2-5.4); White Blood Count 11.3 K/mm3 (4.4-11.0)
[2020-01-26 08:42] LABS: International Normalized Ratio 2.5; Prothrombin Time (Protime)PT. 26.9 SECONDS (11.7-14.9)
[2020-01-26 08:46] LABS: Anion Gap 6 (5-15); BUN 13 mg/dL (7-18); BUN/Creat Ratio 16.6 RATIO (10-20); Calcium,Total 8.7 mg/dL (8.5-10.1); Chloride 101 mmol/L (98-107); Creatinine, Serum 0.78 mg/dL (0.55-1.02); EST Glomerular Filtration Rate 83 mL/min (>60); Est Glom Filt Rate - Afr Amer 100 mL/min (>60); Estimated Creatinine Clearance 78.51 ml/min; Glucose 85 mg/dL (74-106); Sodium Level 137 mmol/L (136-145)
[2020-01-26] MEDS: Metoclopramide 10 MG/2 ML Vial 5 MG IV (09:24)
[2020-01-26] MEDS: DiphenhydrAMINE 50 MG/ML Syringe 12.5 MG IV (09:24)
== END 2020-01-26 11:03 | disposition home or self-care (01) ==
PROVIDERS: Emergency Provider Emergency Medicine; PCP Family Medicine
DX: J20.9 Acute bronchitis, unspecified (principal); M32.9 Systemic lupus erythematosus, unspecified; M06.9 Rheumatoid arthritis, unspecified; Z79.01 Long term (current) use of anticoagulants
CPT/HCPCS: 71045; 80048; 85027; 85610; 87635; 93005; 96374; 96375; 99285; G2023; U0003

== ENCOUNTER 2020-02-08 09:00 | Outpatient (RCR) | payer MEDICAID, SELFPAY ==
[2020-01-20 00:22] VITALS: BP 153/87; PULSE 96; RESP 16; TEMP 36.3; BMI 52.0
[2020-01-25 09:11] VITALS: BP 142/75; PULSE 111; RESP 18; TEMP 36.3; O2SAT 96; BMI 52.0
--- NOTE | 2020-01-25 12:16 | PCM.WC.PN ---
(1) Ulcer of left lower extremity with fat layer exposed Status: Chronic Current Visit: Yes Code(s): L97.922 - Non-pressure chronic ulcer of unspecified part of left lower leg with fat layer exposed (2) Bilateral lower extremity edema Status: Chronic Current Visit: Yes Code(s): R60.0 - Localized edema (3) MRSA (methicillin resistant Staphylococcus aureus) Status: Acute Current Visit: Yes Code(s): A49.02 - Methicillin resistant Staphylococcus aureus infection, unspecified site (4) Lupus Status: Chronic Current Visit: Yes Code(s): M32.9 - Systemic lupus erythematosus, unspecified (5) [facility] use of [facility] Status: Chronic Current Visit: Yes Code(s): 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 History of Wound: Surgery 01/01/20 - Surgical preparation left medial leg with excisional debridement nonhealing fasciotomy MRSA ulcer and 18 cm complex secondary wound closure and placement of AmnioFill placental connective tissue powder, (500 mg). Wound care - Sutures removed without difficulty at last visit. She has several small opened areas along the suture line that she will apply Aquacel-AG daily to keep the areas dry. She will use spanidigrip and MENDEZ wraps for compression. Operative culture - negative She was being treated for preop (12/07/19) MRSA with Doxycycline. She was treated perioperatively with Vancomycin. She completed the Doxycycline. Her prescription should be completed at the end of the week. Prealbumin from 01/02/20 was 25.6. Encourage nutritional supplementation with protein to help the healing process. Today she denies fever. Her appetite is good. Progress of Wound: Recent surgical closure 01/01/20. Radha drain and sutures removed today without difficulty. - Physical Exam Vital Signs Temp Pulse Resp BP Pulse Ox 97.3 F L 111 H 18 142/75 H 96 01/25/20 09:11 01/25/20 09:11 01/25/20 09:11 01/25/20 09:11 01/25/20 09:11 General: Alert, Oriented x3 HEENT: Atraumatic Oral: Moist Mucosa Lungs: Normal air movement Cardiovascular: Regular rate Abdomen: Obese Extremities: Capillary Refill Less than 3 Seconds, Edema - Bilateral lower extremity edema Skin: Incision - Left medial leg incision. THere are several small opened areas along the incision line with a scant amount of drainage. There still is a an opening at the base of the incision where the Radha drain was located. Wound Measurements and Assessment WC - Nurse 1 - General Ulcer Measurement Start: 01/25/20 09:10 Freq: Status: Active Protocol: Activity Type Activity Date Activity User E-Sign Co-Sign Detail Recorded Client Recorded Date Recorded By Document 01/25/20 09:11 RB [id number] 01/25/20 09:14 RB 01/25/20 09:11 Wound Center Nurse 1 [Ulcer Assessment] #1 LLL medial, post op incision -Combined with other wound No -Current Size (cm) - Length 10.2 -Current Size (cm) - Width 0.4 -Current Size (cm) - Depth 0.4 -Total Square Cm 4.08 -Tunneling No -Undermining/Tunneling No -Circular Undermining No -Exudate Amt Medium -Exudate Type Serosanguineous -Wound Margin Thickened & Rolled Under -Granulation Amt Medium (34-66%) -Granulation Quality [place] -Slough/Fibrin Yes -Necrosis Amt Small (1-33%) -Necrotic Tissue Type Adherent Slough -Structure Exposed N/A -Texture (Kisha-wound Skin Appearance) Assessed, Scarring -Moisture (Kisha-wound Skin Appearance Assessed ) -Color (Kisha-wound Skin Appearance) Assessed -Temperature (Kisha-wound Skin No Abnormality Appearance) (Pt Warm) -Tenderness on Palpation (Kisha-wound No Skin Appearance) -Ulcer Cleansing Wound Cleanser -Foul Odor after Cleansing No -Anesthetic Used 4% Lidocaine Solution [Edema Assessment] -Lower Limb Edema Present Yes -Left Calf (cm) 44 -Left Ankle (cm) 23 WC - Nurse 2 - General Ulcer CM Notes Start: 01/25/20 09:10 Freq: Status: Active Protocol: Activity Type Activity Date Activity User E-Sign Co-Sign Detail Recorded Client Recorded Date Recorded By Document 01/25/20 10:17 PL [id number] 01/25/20 10:18 PL 01/25/20 10:17 Wound Center Nurse 2 [Procedure/Treatment] #1 LLL medial, post op incision -Time 09:35 -Correct Patient Yes -Correct Side, Site, Position Yes -Correct Procedure Yes -Procedure Performed Yes -Type of Procedure Debridement -Clinical Debridement Selective -Post Debridement Size (cm) - Length 7.5 -Post Debridement Size (cm) - Width 0.2 -Post Debridement Size (cm) - Depth 0.1 -Total Square Cm 1.50 -Wound/Ulcer Outcome Not Healed -Ulcer Cleansing Rinsed/ Irrigated with Saline -Foul Odor after Cleansing No -Bleeding Controlled with Pressure -Treatment Response Procedure Tolerated Well [See Physician Procedure note for Specifics] Pain Scale: 0-10 Numeric [Pain] -Is Patient Pain Free? Yes Musculoskeletal: Tenderness Neurological: Neuro grossly intact Psych/Mental Status: Normal Affect, Appropriate Debridement Note Post-Debridement Measurements/Treatment WC - Nurse 2 - General Ulcer CM Notes Start: 01/25/20 09:10 Freq: Status: Active Protocol: Activity Type Activity Date Activity User E-Sign Co-Sign Detail Recorded Client Recorded Date Recorded By Document 01/25/20 10:17 PL [id number] 01/25/20 10:18 PL 01/25/20 10:17 Wound Center Nurse 2 #1 LLL medial, post op incision -Time 09:35 -Correct Patient Yes -Correct Side, Site, Position Yes -Correct Procedure Yes -Procedure Performed Yes -Type of Procedure Debridement -Clinical Debridement Selective -Post Debridement Size (cm) - Length 7.5 -Post Debridement Size (cm) - Width 0.2 -Post Debridement Size (cm) - Depth 0.1 -Total Square Cm 1.50 -Wound/Ulcer Outcome Not Healed -Ulcer Cleansing Rinsed/ Irrigated with Saline -Foul Odor after Cleansing No -Bleeding Controlled with Pressure -Treatment Response Procedure Tolerated Well Pain Scale: 0-10 Numeric Is Patient Pain Free? Yes Wound debrided: Medial leg incision several small opened area Laterality: Left Type of Debridement: Selective debridement Anesthesia Used: 4% Lidocaine Solution Percentage of wound debrided: 30 Instrument Used: - - pickups Tissue Removed: Subcutaneous tissue and slough Severity: Limited To Skin Breakdown Amount of bleeding with debridement: None Bleeding Controlled with: Pressure Patient tolerated procedure well Assessment/Plan Active Problems MRSA (methicillin resistant Staphylococcus aureus) (Acute) Bilateral lower extremity edema (Chronic) Ulcer of left lower extremity with fat layer exposed (Chronic) Lupus (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 Nonhealing fasciotomy ulcer left medial leg. 2. Hematoma with compartment syndrome left leg s/p fasciotomies. 3. History of compromised skin grafts. 4. MRSA. 5. 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 6. Lupus. 7. Immunocompromised state due to high risk medication, Methotrexate, for Lupus, currently off Methotrexate. 8. s/p surgical preparation left medial leg with excisional debridement nonhealing fasciotomy MRSA ulcer and 18 cm complex secondary wound closure and placement of AmnioFill placental connective tissue powder, (500 mg). Plan: Wound care - Sutures removed without difficulty last week. She has several small opened areas along the suture line that she will apply Aquacel-AG daily to keep the areas dry. She will use spanidigrip and MENDEZ wraps for compression. Stressed the importance of compression. Instructed her that the small opened areas that she has on her incision line is because of her edema and that it can eventually reopen the incision if she doesn't get the edema under control. Discussed possibly doing 3M 2 layer wraps but she has not tolerated them in the past. Instructed her that if her MENDEZ wraps come lose, she needs to rewrap her legs. Discussed laying flat a couple times per day for 20 minutes to help with edema. She is complaining of burning pain down her left ankle and foot. She states it is waking her up at night because of the pain. Will start her on Neurontin and have her start at bedtime and after several days she can try taking it twice a day. Instructed her that it may make her tired, if it does make her too tired then she can take it only at bedtime. Completed Doxycycline for preop (12/07/19) MRSA. The operative culture is negative. Prealbumin was 25.3 on 01/02/20. Encourage nutritional supplementation with protein to help the healing process. Keep left leg elevated when sitting. Minimize standing. Followup two weeks. 111xxx-113xx: [id number] Global Visit
[2020-02-08 09:03] VITALS: BP 134/77; PULSE 103; RESP 20; TEMP 36.4; BMI 52.0
--- NOTE | 2020-02-08 10:11 | PN.PCM_ITS ---
Type of Wound Date of Service: 02/08/20 Chief Complaint: Nonhealing fasciotomy ulcer left medial leg with skin graft compromise, s/p closure 01/01/20. History of Wound: Surgery 01/01/20 - Surgical preparation left medial leg with excisional debridement nonhealing fasciotomy MRSA ulcer and 18 cm complex secondary wound closure and placement of AmnioFill placental connective tissue powder, (500 mg). Wound care - She has several small open areas along the suture line that she will apply Aquacel-AG daily to keep the areas dry. She will use spanidigrip and MENDEZ wraps for compression. Operative culture - negative. She was being treated for preop (12/07/19) MRSA with Doxycycline. She was treated perioperatively with Vancomycin and discharged on Doxycycline. She completed the Doxycycline. Prealbumin from 01/02/20 was 25.6. Encourage nutritional supplementation with protein to help the healing process. Today she denies fever. Her appetite is good. Progress of Wound: Improved. - Physical Exam Vital Signs Temp Pulse Resp BP Pulse Ox 97.6 F L 103 H 20 H 134/77 H 96 02/08/20 09:03 02/08/20 09:03 02/08/20 09:03 02/08/20 09:03 01/25/20 09:11 Wound Measurements and Assessment WC - Nurse 1 - General Ulcer Measurement Start: 01/25/20 09:10 Freq: Status: Active Protocol: Activity Type Activity Date Activity User E-Sign Co-Sign Detail Recorded Client Recorded Date Recorded By Document 02/08/20 09:03 DL [id number] 02/08/20 09:08 DL 02/08/20 09:03 Wound Center Nurse 1 [Ulcer Assessment] #1 LLL medial, post op incision -Current Size (cm) - Length 2.3 -Current Size (cm) - Width 0.3 -Current Size (cm) - Depth 0.2 -Total Square Cm 0.69 -Photo Taken No -Exudate Amt Small -Exudate Type Serosanguineous -Wound Margin Distinct, Outline Attached -Granulation Amt Small (1-33%) -Granulation Quality Rankin -Necrosis Amt Small (1-33%) -Necrotic Tissue Type Adherent Slough -Structure Exposed N/A -Texture (Kisha-wound Skin Appearance) Scarring -Moisture (Kisha-wound Skin Appearance No Abnormality ) -Color (Kisha-wound Skin Appearance) No Abnormality -Temperature (Kisha-wound Skin No Abnormality Appearance) (Pt Warm) -Tenderness on Palpation (Kisha-wound No Skin Appearance) -Ulcer Cleansing Rinsed/ Irrigated with Saline -Foul Odor after Cleansing No -Anesthetic Used 4% Lidocaine Solution [Edema Assessment] -Left Calf (cm) 44 -Left Ankle (cm) 23.5 WC - Nurse 2 - General Ulcer CM Notes Start: 01/25/20 09:10 Freq: Status: Active Protocol: Activity Type Activity Date Activity User E-Sign Co-Sign Detail Recorded Client Recorded Date Recorded By Document 02/08/20 09:19 MARITA [id number] 02/08/20 09:20 02/08/20 09:19 Wound Center Nurse 2 [Procedure/Treatment] #1 LLL medial, post op incision -Time 09:20 -Correct Patient Yes -Correct Side, Site, Position Yes -Correct Procedure Yes -Procedure Performed Yes -Type of Procedure Debridement -Clinical Debridement Subcutaneous -Post Debridement Size (cm) - Length 7 -Post Debridement Size (cm) - Width 0.4 -Post Debridement Size (cm) - Depth 0.2 -Total Square Cm 2.8 -Wound/Ulcer Outcome Not Healed -Ulcer Cleansing Rinsed/ Irrigated with Saline -Foul Odor after Cleansing No -Bioengineered Tissue No -Bleeding Controlled with Pressure -Offloading No -Treatment Response Procedure Tolerated Well [See Physician Procedure note for Specifics] Pain Scale: 0-10 Numeric [Pain] -Is Patient Pain Free? Yes Debridement Note Post-Debridement Measurements/Treatment WC - Nurse 2 - General Ulcer CM Notes Start: 01/25/20 09:10 Freq: Status: Active Protocol: Activity Type Activity Date Activity User E-Sign Co-Sign Detail Recorded Client Recorded Date Recorded By Document 01/25/20 10:17 PL [id number] 01/25/20 10:18 PL Document 02/08/20 09:19 MARITA [id number] 02/08/20 09:20 01/25/20 02/08/20 10:17 09:19 Wound Center Nurse 2 #1 LLL medial, post op incision -Time 09:35 09:20 -Correct Patient Yes Yes -Correct Side, Site, Position Yes Yes -Correct Procedure Yes Yes -Procedure Performed Yes Yes -Type of Procedure Debridement Debridement -Clinical Debridement Selective Subcutaneous -Post Debridement Size (cm) - Length 7.5 7 -Post Debridement Size (cm) - Width 0.2 0.4 -Post Debridement Size (cm) - Depth 0.1 0.2 -Total Square Cm 1.50 2.8 -Wound/Ulcer Outcome Not Healed Not Healed -Ulcer Cleansing Rinsed/ Rinsed/ Irrigated with Irrigated with Saline Saline -Foul Odor after Cleansing No No -Bioengineered Tissue No -Bleeding Controlled with Pressure Pressure -Offloading No -Treatment Response Procedure Procedure Tolerated Well Tolerated Well Pain Scale: 0-10 Numeric Is Patient Pain Free? Yes Yes Wound debrided: #1 Left lower medial leg. Laterality: Left Wound Grade/Stage: 2. Type of Debridement: Excisional debridement Anesthesia Used: 4% Lidocaine Solution Depth: Down to and including healthy tissue, in the subcutaneous layer Percentage of wound debrided: 100 Instrument Used: 3mm curette Tissue Removed: subcutaneous tissue. 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 Nonhealing fasciotomy ulcer left medial leg, s/p closure 01/01/20. 2. Hematoma with compartment syndrome left leg s/p fasciotomies. 3. History of compromised skin grafts. 4. MRSA. 5. 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 6. Lupus. 7. Immunocompromised state due to high risk medication, Methotrexate, for Lupus, currently off Methotrexate. 8. s/p surgical preparation left medial leg with excisional debridement nonhealing fasciotomy MRSA ulcer and 18 cm complex secondary wound closure and placement of AmnioFill placental connective tissue powder, (500 mg). Plan: The ulcerations are superficial and related to the sutures coming through the skin and postop swelling. Will stop the Silver dressing and start Collagen Hydrogel dressing changes daily followed by Spandigrip for compression. Stressed the importance of compression. Instructed her that the small open areas that she has on her incision line is because of her edema and that it can eventually reopen the incision if she doesn't get the edema under control. Instructed her that if her Spandigrip comes loose, she needs to rewrap her legs. Discussed laying flat a couple times per day for 20 minutes to help with edema. She is complaining of burning pain down her left ankle and foot. She states it is waking her up at night because of the pain. Will start her on Neurontin and have her start at bedtime and after several days she can try taking it twice a day. Instructed her that it may make her tired, if it does make her too tired then she can take it only at bedtime. Completed Doxycycline for preop (12/07/19) MRSA. The operative culture is negative. Prealbumin was 25.3 on 01/02/20. Encourage nutritional supplementation with protein to help the healing process. Keep left leg elevated when sitting. Minimize standing. Followup two weeks. [id number]: [id number] Global Visit - ICD-10 - Z48.89, L97.922, T14.8xxS, T79.A22S, T86.828, A49.02, Z79.01, M32.9, Z79.899
--- NOTE | 2020-02-10 12:21 | WC ---
Patient was asking if she could start her autoimmune biologic. She see her story writer on of this week. After discussing it with Dr Kent, he states that he does not want her to anything regimen until she is fully healed. Notified patient of update. She verbalized understanding.
== END 2020-02-19 23:59 ==
LOC: WC 09:00
PROVIDERS: Family Provider Family Medicine; PCP Family Medicine; Referring Provider Surgery; Visit Provider Surgery
DX: L97.922 Non-pressure chronic ulcer of unspecified part of left lower leg with fat layer exposed (principal); R60.0 Localized edema; M32.9 Systemic lupus erythematosus, unspecified; Z79.01 Long term (current) use of anticoagulants; Z86.14 Personal history of Methicillin resistant Staphylococcus aureus infection; T86.829 Unspecified complication of skin graft (allograft) (autograft); Y83.9 Surgical procedure, unspecified as the cause of abnormal reaction of the patient, or of later complication, without mention of misadventure at the time of the procedure; T79.A22S Traumatic compartment syndrome of left lower extremity, sequela; X58.XXXS Exposure to other specified factors, sequela
CPT/HCPCS: 11042; 97597

== ENCOUNTER 2020-03-14 10:24 | Observation (INO) | payer MEDICAID, SELFPAY ==
[2020-02-29 08:07] VITALS: BMI 53.6
[2020-03-07 08:12] VITALS: BMI 53.6
[2020-03-14] VITALS (14 sets, daily range): BP systolic 100–126; BP diastolic 50–85; PULSE 81–103; RESP 16–20; TEMP 36.1–36.7; O2SAT 83–98; BMI 53.4; BMI 53.1
--- NOTE | 2020-03-14 00:29 | PCM.HP.BLA ---
History and Physical Date of Admission: 03/14/20 HISTORY OF PRESENT ILLNESS The patient is a 49 year old F who developed a compartment syndrome in 12/07 and she was taken urgently to the OR on 12/13/[address] Sawant for fasciotomies. Medial and lateral leg wounds were created. She underwent wound care with the VAC and the Silver dressing changes. She was taken back to surgery on 04/10/19 where she underwent surgical preparation left medial leg with excisional debridement nonhealing fasciotomy ulcer and placement of AmnioFill placental connective tissue powder and STSG reconstruction from left flank (48 cm2) and surgical preparation left lateral leg with excisional debridement nonhealing fasciotomy ulcer and placement of AmnioFill placental connective tissue powder and STSG reconstruction from left flank (20 cm2). She developed some compromise to the skin grafts and underwent HBO treatments. Since then the lateral wound has healed. However, she still had a nonhealing ulcer left medial leg. Recent culture showed MRSA and she was started on Doxycycline. She went back to surgery on 01/01/20 where she underwent surgical preparation left medial leg with excisional debridement nonhealing fasciotomy MRSA ulcer and 18 cm complex secondary wound closure and placement of AmnioFill placental connective tissue powder, (500 mg). Initial healing was satisfactory but then developed some central ulcerations with persistent drainage. Wound culture showed Anaerobic cocci. She was placed on Augmentin and finished them. Further surgery was recommended to the patient as the persistent drainage will prevent adequate wound healing. After incision and drainage and excisional debridement of these nonhealing infected ulcers, will leave the wound open and proceed with postop wound care with the VAC. When adequately healing has occurred, can proceed with delayed closure with skin grafting. 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 for Lupus FPC current use of anticoagulant PAST SURGICAL HISTORY left lower extremity emergent fasciotomies - 12/13/18 bilateral knee replacement pericardial window surgical preparation left medial leg with excisional debridement nonhealing fasciotomy ulcer and placement of AmnioFill placental connective tissue powder and STSG reconstruction from left flank (48 cm2) and surgical preparation left lateral leg with excisional debridement nonhealing fasciotomy ulcer and placement of AmnioFill placental connective tissue powder and STSG reconstruction from left flank (20 cm2) - 04/10/19 Surgical preparation left medial leg with excisional debridement nonhealing fasciotomy MRSA ulcer and 18 cm complex secondary wound closure and placement of AmnioFill placental connective tissue powder, (500 mg) - 01/01/20 ALLERGIES adhesive tape MEDICATIONS Abilify. Bupropion. Iron sulfate. Folic acid. Toprol. Omeprazole. Percocet. Prednisone. Ropinirole. Trazodone. Effexor. Coumadin. SOCIAL HISTORY Lives: With Family Smoking Status: Never smoker Alcohol: None FAMILY HISTORY Maternal - No pertinent history Paternal - No pertinent history REVIEW OF SYSTEMS Constitutional: Denies: Chills, Fever, Weight Change. Eyes: Denies: Blurred vision. HEENT: Denies: Head Aches, Sinus Congestion, Sinus Drainage. Cardiovascular: Denies: Chest Pain, Palpitations. Respiratory: Denies: Cough, Shortness of Breath, Shortness of breath at rest, Sputum production. Gastrointestinal: Denies: Abdominal Pain, Nausea, Vomiting. Genitourinary: Denies: Dysuria. Musculoskeletal: Reports: Leg Pain, Muscle pain. Denies: Arm Pain, Back Pain, Foot Pain, Hand Pain, Joint Pain, Joint swelling. Skin: Denies: Rash, Wounds. Neurological: Denies: Numbness, Tingling, Focal weakness. Psychiatric: Denies: Anxiety, Depression, Homicidal Ideations, Suicidal Ideations. Hematologic/ Lymphatic: Denies: Easy Bruising, Easy Bleeding PHYSICAL EXAMINATION General: Alert, Oriented x3. HEENT: PERRLA, EOMI. Oral: Moist Mucosa Neck: Supple, Nontender. Lungs: Clear to auscultation. Cardiovascular: Regular Rhythm, Tachycardic Abdomen: Soft, Non-Distended. Skin: Nonhealing fasciotomy ulcer present left medial leg. Mild swelling present. Ulcer is clean with granulation tissue. Medial leg ulcer measures 6 x 1.6 x 0.4 cm. The length of the superior and inferior scarring with the central ulcer is 16 cm. Lymphatic: No Cervical, Supraclavicular, or Inguinal Adenopathy Neurological: Cranial nerves II-XII grossly intact Psych/Mental Status: Normal Affect, Appropriate, Alert and oriented to time, place, person, mood and affect ASSESSMENT 1. Nonhealing fasciotomy MRSA ulcer left medial leg., s/p closure 01/01/20 with central ulcerations. 2. Hematoma with compartment syndrome left leg s/p fasciotomies. 3. History of compromised skin grafts. 4. MRSA. 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 6. Lupus. 7. Immunocompromised state due to high risk medication, Methotrexate, for Lupus, currently off Methotrexate. PLAN She has three central ulcerations that communicate under the skin. A lot of drainage is noted. Discussed with the patient that the ulcerations will never heal with this much drainage and edema present. Continue Silver dressing changes daily followed by Spandigrip and MENDEZ wrap for compression. She is complaining of burning pain down her left ankle and foot. She states it is waking her up at night because of the pain. She was placed on Neurontin. Completed Doxycycline for preop (12/07/19) MRSA. The operative culture was negative. She was treated with Vancomycin perioperatively and discharged on Doxycycline. After the central ulcerations developed, a wound culture on 02/22/20 was done which showed Anaerobic cocci. She was placed on Augmentin and finished them. Prealbumin was 25.3 on 01/02/20. Encourage nutritional supplementation with protein to help the healing process. Keep left leg elevated when sitting. Minimize standing. She is scheduled for surgery next Saturday03/14/20 for surgical preparation left medial leg with incision and drainage and excisional debridement nonhealing infected ulcers. Surgery will be done under general anesthesia with a surgical observation overnight stay in the hospital. Will leave the wound open and proceed with wound care with the VAC. When stable, can then proceed with delayed closure with skin grafting. Tissue that is debrided will be sent to Pathology for analysis and to Microbiology for culture. A positive culture will necessitate antibiotic therapy. Patient was informed of the risks and complications of the procedure including alternatives to surgery. These were discussed with her personally. She voices understanding and wishes to proceed. We discussed the current risks associated with COVID-19. While it is understood that there is a community spread of COVID-19, the risk of garret COVID-19 while at [facility] ([facility]) is very low; however, the risk cannot be completely mitigated because of the community spread of the disease. We discussed in detail the risk of exposure to and/or potential harm posed by the COVID-19 virus with having a surgery/procedure at this time versus the risk of delaying the surgery/procedure. It is not possible to know either the risk of delaying the surgery or procedure or chance of getting an infection with perfect accuracy, but a joint decision was made to proceed at this time with the scheduled surgery/procedure as indicated on the consent form. Patient was notified that we will need to comply with any screening or testing [facility] wishes to perform or that surgery may be delayed for any positive results. Discussed with the patient that I was tested for COVID-19 on 01/21/20 which was negative and on 02/04/20 which was negative and on 02/18/20 which was negative and on 03/03/20 which was negative. My testing regimen at this time is to be COVID-19 tested every 2 weeks or so. Procedure Criteria Procedure Type: Elective COVID Risk Discussion: The surgeon/proceduralist and patient have discussed in detail the risk of exposure to and/or potential harm posed by the COVID-19 virus with having a surgery/procedure at this time versus the risk of delaying the surgery/procedure. It is not possible to know either the risk of delaying the surgery or procedure or chance of getting an infection with perfect accuracy, but a joint decision was made between the patient and the surgeon/proceduralist to proceed at this time with the scheduled surgery/procedure as indicated on the consent form.
[2020-03-14] MEDS: Vancomycin IV 1,000 MG/200 ML BAG 200 MG IV (08:30)
[2020-03-14] MEDS: Lactated Ringers 1,000 ML 100 ML IV (08:30)
[2020-03-14 08:37] LABS: Prothrombin Time Fingerstick 17.7 SEC (11.9-14.4)
[2020-03-14 09:01] LABS: International Normalized Ratio 1.1; Prothrombin Time (Protime)PT. 13.5 SECONDS (11.7-14.9)
--- NOTE | 2020-03-14 09:20 | SOF_PTH ---
PATIENT: RICCARDO VICKERS LOC: [facility] U#:[id number] AGE/SX: 49/F ROOM: [facility]316 RE03/14/[address]: Dr. Nghia Kent MD : 1970 BED: 1 DIS: 03/16/2020 SPEC #: [id number] RECD: 03/14/20 10:44 STATUS: JASON REQ #: [id number] ODALYS: 03/14/20 09:[address]: Nghia Kent DEPT: SURGICAL PATHOLOGY RECD BY: Donnell Boswell ENTERED: 03/14/20 11:42 SP TYPE: SOFT TISS OTHR DR: Dr. Tarah Dubon, DO Tissues: Left leg Procedures: Surgery Specimen Level III HEADER OPERATION: Surgical preparation medial leg with incision and drainage PRE-OP DIAGNOSIS: Nonhealing fasciotomy MRSA ulcer left medial leg status post closure with central ulcerations; hematoma with compartment syndrome left leg TISSUE SUBMITTED: Soft tissue left leg MICROSCOPIC DIAGNOSIS Soft tissue left leg: A piece of skin with underlying tissue with extensive ulceration, associated acute inflammation, granulation tissue reaction and fibrosis. MARTHA:charley 03/15/20 MICROSCOPIC DESCRIPTION Slides are reviewed. GROSS DESCRIPTION Received in fixative is one container labeled with the patient's name and designated soft tissue left leg. The specimen consists of a piece of skin with underlying tissue measuring 6.5 x 2.2 cm and up to 3 cm in thickness. The skin surface shows an extensive area of ulceration. Peoplesoft Developer sections are submitted in three cassettes. / MARTHA:charley 03/14/20 TC:2 CPT: 94064
--- NOTE | 2020-03-14 10:14 | PCM.OPRPT ---
Report of Operation Date of Procedure: 03/14/20 Pre-Operative Diagnosis: 1. 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 2. Hematoma with compartment syndrome left leg s/p fasciotomies. 3. History of compromised skin grafts. 4. MRSA. 5. assisted use of anticoagulation. 6. Lupus. 7. Immunocompromised state due to high risk medication, Methotrexate, for Lupus, currently off Methotrexate. Post-Operative Diagnosis: Same. Surgery/Procedure Performed:: Surgical preparation left medial leg with incision and drainage and excisional debridement nonhealing fasciotomy MRSA infected ulcers (29.75 cm2) and placement Amniofill placental connective tissue powder, 1000 mg. Description of Surgical Findings:: The patient is a 49 year old F who developed a compartment syndrome in 12/07 and she was taken urgently to the OR on 12/13/[address] Sawant for fasciotomies. Medial and lateral leg wounds were created. She underwent wound care with the VAC and the Silver dressing changes. She was taken back to surgery on 04/10/19 where she underwent surgical preparation left medial leg with excisional debridement nonhealing fasciotomy ulcer and placement of AmnioFill placental connective tissue powder and STSG reconstruction from left flank (48 cm2) and surgical preparation left lateral leg with excisional debridement nonhealing fasciotomy ulcer and placement of AmnioFill placental connective tissue powder and STSG reconstruction from left flank (20 cm2). She developed some compromise to the skin grafts and underwent HBO treatments. Since then the lateral wound has healed. However, she still had a nonhealing ulcer left medial leg. Recent culture showed MRSA and she was started on Doxycycline. She went back to surgery on 01/01/20 where she underwent surgical preparation left medial leg with excisional debridement nonhealing fasciotomy MRSA ulcer and 18 cm complex secondary wound closure and placement of AmnioFill placental connective tissue powder, (500 mg). Initial healing was satisfactory but then developed some central ulcerations with persistent drainage. Wound culture showed Anaerobic cocci. She was placed on Augmentin and finished them. Further surgery was recommended to the patient as the persistent drainage will prevent adequate wound healing. After incision and drainage and excisional debridement of these nonhealing infected ulcers, will leave the wound open and proceed with postop wound care with the VAC. When adequately healing has occurred, can proceed with delayed closure with skin grafting. Patient was informed of the risks and complications of the procedure including alternatives to surgery. These were discussed with the patient personally. Patient voices understanding and wishes to proceed. Size of defect left medial leg - 8.5 x 3.5 x 3 cm. I used AmnioFill Placental Connective Tissue Powder, 1000 mg. Catalog Number - [id number]. Lot Number - [id number]. Expiration - September 19, 2024. computer systems architect: None Type of Anesthesia:: General Specimen's removed: Nonhealing fasciotomy MRSA infected ulcers left medial leg to Pathology and Microbiology. Drains: None. Estimated Blood Loss (mL): 150 ml. Description of Procedure: Patient was taken to OR in supine position and was placed under general anesthesia. The left leg was prepped and draped in the usual fashion. SCD's were placed for DVT prophylaxis. Perioperative antibiotics were given intravenously. For the procedure, I wore an N95 mask and wore proper eyewear protection. Using xylocaine with epinephrine, the nonhealing fasciotomy MRSA infected ulcers were infiltrated. After waiting 5 minutes for the anesthetic to take effect, I used a scalpel and proceeded with incision and drainage around these central ulcerations. Moderate amount of purulent drainage was expressed. No odor present. A lot of fat necrosis was present and a lot of exudate was present which was excised and debrided. There was indurated tissue adherent to the underlying muscle that was also excised and debrided. The muscle appeared viable. I could not appreciate any tunnelling both superiorly and inferiorly. Some of the tissue was sent to Pathology for analysis to rule out carcinoma and to Microbiology for culture. A positive culture will necessitate antibiotic therapy. The wound was irrigated with saline. Hemostasis was obtained with electrocautery. The size of the wound left medial leg after incision and drainage and excisional debridement was 8.5 x 3.5 x 3 cm or 29.75 cm2. To aid in the healing process, I placed Amniofill placental connective tissue powder into the base of the wound. I used 1000 mg. I secured the AmnioFill in the base of the wound with Adaptic that was secured to the wound edges with 2-0 Vicryl interrupted sutures. I then dressed the wound with Kerlix gauze with Betadine followed by dry Kerlix gauze, ABD pads and a compression MENDEZ wrap. Patient tolerated the procedure well and was sent to PACU in satisfactory condition. Patient will be sent upstairs for continued postop care. The VAC will be applied tomorrow. She will go home once she is tolerating po analgesia. She will keep her left leg elevated when sitting. She will minimize standing. She will [facility]up [facility] in one week after discharge. Once the wound has stabilized and the infection has been adequately treated, can then proceed with delayed closure with skin grafting. Encourage nutritional supplementation with protein to help the healing process. Grafts/Implants Used: AmnioFill placental connective tissue powder. - Complications None. - Admit VTE Documentation VTE Present on Admission: No - Patient is on Coumadin. VTE Mechan Device Prophylaxis: SCD's VTE Pharm Prophylaxis ordered?: Yes Surgery Charges CPT - 61508-21 ICD-10 - L97.922, A49.02, R60.0, T79.A22S, T14.8xxS, Z79.01, M32.9, T86.828 [id number] L97.922, A49.02, R60.0, T79.A22S, T14.8xxS, Z79.01, M32.9, T86.828
[2020-03-14] MEDS: Lactated Ringers 1,000 ML 60 ML IV (12:59)
[2020-03-14] MEDS: oxyCODONE 5 MG Tablet 10 MG PO (14:57)
[2020-03-14 16:21] LABS: Creatinine, Serum 0.77 mg/dL (0.55-1.02); EST Glomerular Filtration Rate 85 mL/min (>60); Est Glom Filt Rate - Afr Amer 102 mL/min (>60); Estimated Creatinine Clearance 82.74 ml/min
[2020-03-14] MEDS: Mag Hydrox/Al Hydrox/Simeth 30 ML UDC PO (17:35)
[2020-03-14] MEDS: Juven (unflavored) Packet 1 PACKET PO (17:39)
[2020-03-14] MEDS: Acetaminophen 325 MG Tablet 650 MG PO (17:40)
[2020-03-14] MEDS: Albuterol 2.5 MG/3 ML VIAL.NEB. INHALATION (19:44)
[2020-03-14] MEDS: Pantoprazole Sodium 40 MG Tablet PO (20:03)
[2020-03-14] MEDS: Famotidine 20 MG Tablet PO (20:03)
--- NOTE | 2020-03-14 21:00 | PCM.RX.CS ---
Consult Pharmacy has been consulted to manage selected antiobiotic: Vancomycin Type of Consult: New start Suspected Infection: Skin/Soft tissue Prior Doses of Antibiotics Received/Current Regimen: Vancomycin 1000mg IV x1 pre-op Labs: Creatinine 0.77 mg/dL (0.55-1.02) 03/14/20 15:18 Est GFR (MDRD) Af Amer 102 mL/min (>60) 03/14/20 15:18 Est GFR (MDRD) Non-Af 85 mL/min (>60) 03/14/20 15:18 Microbiology: Microbiology 03/14/20 10:40 Tissue - Leg Gram Stain - Final Weight used for dosin kg Estimated Creatinine Clearance: 133ml/min Goal Trough: 10-15 mcg/mL Pharmacy Plan for Drug Dosing: NEW START IV VANCOMYCIN Consulting Physician: Donte Indication: Soft Tissue Goal Trough: 10-15 SrCr: 0.77 CrCl: 133ml/min (Calculated based on Adjusted Body Weight of 95.62kg) Comments: Pre-op Dose of Vancomycin 1000mg IV x1 given 03/14 at 0830 Vancomcyin Dose: 1750mg IV q12h to start 03/14 at 2000 Pending Level: 03/15 at 1930 Pharmacy Service will continue to monitor and adjust dosing as required. Follow-Up Labs: Trough Vancomycin - 03/15 @ 1930
[2020-03-14] MEDS: HYDROmorphone 1 MG/ML Syringe IV (21:06)
[2020-03-14] MEDS: Ondansetron 4 MG/2 ML Vial IV (21:09)
[2020-03-14] MEDS: Gabapentin 300 MG Capsule PO (21:20)
[2020-03-14] MEDS: Pramipexole Di-HCl 1 MG Tablet PO (21:20)
[2020-03-14] MEDS: Docusate Sodium 100 MG Capsule PO (21:21)
[2020-03-14] MEDS: traZODone 100 MG Tablet 150 MG PO (21:21)
[2020-03-15] VITALS (7 sets, daily range): BP systolic 104–123; BP diastolic 45–67; PULSE 88–101; RESP 16–20; TEMP 36.3–36.7; O2SAT 86–98
[2020-03-15] MEDS: Acetaminophen 325 MG Tablet 650 MG PO ×3 (03:46→22:32)
[2020-03-15 07:24] LABS: International Normalized Ratio 1.1
[2020-03-15 07:25] LABS: ALB/GLOB Ratio 0.6 RATIO (0.9-2.4); AST(SGOT) 22 U/L (15-37); Alanine Aminotransfer ALT/SGPT 22 U/L (13-56); Albumin, Serum 2.8 g/dL (3.2-5.0); Alkaline Phosphatase 83 U/L (45-117); Anion Gap 4 (5-15); BUN 9 mg/dL (7-18); BUN/Creat Ratio 12.6 RATIO (10-20); Calcium,Total 8.7 mg/dL (8.5-10.1); Chloride 101 mmol/L (98-107); Creatinine, Serum 0.72 mg/dL (0.55-1.02); EST Glomerular Filtration Rate 92 mL/min (>60); Est Glom Filt Rate - Afr Amer 111 mL/min (>60); Estimated Creatinine Clearance 88.48 ml/min; Globulin 4.5 g/dL (2.2-4.2); Glucose 95 mg/dL (74-106); Potassium 4.3 mmol/L (3.5-5.1); Prealbumin 26.4 mg/dL (20.0-40.0); Protein, Total 7.3 g/dL (6.4-8.2); Sodium Level 135 mmol/L (136-145)
[2020-03-15 07:27] LABS: Erythrocyte Sedimentation Rate 64 mm/hr (0-20)
[2020-03-15] MEDS: Lactated Ringers 1,000 ML 60 ML IV (08:26)
[2020-03-15] MEDS: ARIPiprazole 5 MG Tablet PO (08:27)
[2020-03-15] MEDS: Venlafaxine XR 75 MG Capsule 225 MG PO (08:27)
[2020-03-15] MEDS: Folic Acid 1 MG Tablet PO (08:27)
[2020-03-15] MEDS: Docusate Sodium 100 MG Capsule PO ×2 (08:27→22:32)
[2020-03-15] MEDS: Metoprolol(XL)Succ 50 MG Tablet PO (08:27)
[2020-03-15] MEDS: Gabapentin 300 MG Capsule PO ×2 (08:28→22:32)
[2020-03-15] MEDS: oxyCODONE 5 MG Tablet 10 MG PO ×3 (08:28→22:31)
[2020-03-15] MEDS: predniSONE 1 MG Tablet 8 MG PO (08:28)
[2020-03-15] MEDS: Ferrous Sulfate 325 MG Tablet PO (08:28)
[2020-03-15] MEDS: buPROPion (XL) 300 MG TABLET.XL PO (08:29)
[2020-03-15] MEDS: Pantoprazole Sodium 40 MG Tablet PO ×2 (08:29→22:32)
[2020-03-15 08:32] LABS: Hematocrit 37.1 % (37-47); Hemoglobin 11.4 g/dL (12.0-15.0); Mean Corp Hgb Conc 30.7 g/dL (32-36); Mean Corpuscular Hgb 29.2 pg (27.0-32.0); Mean Corpuscular Volume 94.9 fL (81-99); Mean Platelet Vol. 10.2 fl (6.2-12.0); Platelet Count 251 K/mm3 (150-450); RBC Distribution Width CV 14.6 % (11.6-14.6); RBC Distribution Width SD 49.8 fl (35.1-43.9); Red Blood Count 3.91 M/mm3 (4.2-5.4); White Blood Count 11.7 K/mm3 (4.4-11.0)
--- NOTE | 2020-03-15 09:19 | NURSING ---
wound photo: left medial lower leg
--- NOTE | 2020-03-15 10:33 | CASEMGMT ---
ZENON ROMAN in to discuss discharge needs with patient. Patient has wound vac and will need HHC for vac changes. ZENON ROMAN provided list of HHC agency, patient state she has no preference. Patient agreeable to referral to [facility]. ZENON ROMAN sent referral to [facility] and awaiting call back. CM will continue to follow this patient and plan for a safe discharge.
--- NOTE | 2020-03-15 12:58 | CASEMGMT ---
RN JESSIE received call from [facility] and they are able to accept the patient. RN JESSIE updated wound nurse and patient. CM will continue to follow this patient and plan for a safe discharge.
[2020-03-15] MEDS: Ondansetron 4 MG/2 ML Vial IV (14:06)
[2020-03-15] MEDS: 0.9% Saline Lock 10 ML Syringe IV (14:07)
--- NOTE | 2020-03-15 15:12 | PCM.PN.SRG ---
Subjective: Postop #1 Patient complains of wound pain and VAC pain. Still needs occasional IV analgesia. - Physical Exam Vitals/I&O's: Vital Signs Temp Pulse Resp BP Pulse Ox 98.1 F 89 18 104/52 L 92 03/15/20 14:10 03/15/20 14:10 03/15/20 14:10 03/15/20 14:10 03/15/20 14:12 Oxygen Flow Rate (L/min) 2 Oxygen Delivery Method Nasal Cannula Weight: 330 lb 14.621 oz Body Mass Index (BMI) 53.1 Finger Stick Blood Glucose 115 Intake and Output for Last 24 Hours 03/13/20 03/14/20 03/15/20 23:59 23:59 23:59 Intake Total 2573.33 / 2823.33 2004 Output Total 750 / 1050 800 / 800 Balance 1823.33 / 1773.33 1205 / 1205 General: Alert, Oriented x3 HEENT: PERRLA Oral: Moist Mucosa Neck: Supple Abdomen: Soft, Non-Distended Extremities: Edema - mild edema lower extremities. Skin: Ulcer/ Wound - left medial leg wound is stable. No active bleeding noted. Adaptic in place over AmnioFill. VAC applied today. Lymphatic: - - no inguinal adenopathy. Neurological: Cranial nerves II-XII grossly intact Psych/Mental Status: Normal Affect, Appropriate Microbiology Past 72 Hours 03/14/20 10:40 Tissue - Leg Gram Stain - Final 03/14/20 10:40 Tissue - Leg Wound Culture - Preliminary Gram positive organism Laboratory Results 03/14/20 15:18: Creatinine 0.77, Estim Creat Clear Calc 82.74, Est GFR (MDRD) Af Amer 102, Est GFR (MDRD) Non-Af 85 03/15/20 06:49: WBC 11.7 H, RBC 3.91 L, Hgb 11.4 L, Hct 37.1, MCV 94.9, MCH 29.2, MCHC 30.7 L, RDW Std Deviation 49.8 H, RDW Coeff of Chepe 14.6, Plt Count 251, MPV 10.2, ESR 64 H 03/15/20 06:49: PT 14.0, INR 1.1 03/15/20 06:49: Sodium 135 L, Potassium 4.3, Chloride 101, Carbon Dioxide 30.0, Anion Gap 4 L, BUN 9, Creatinine 0.72, Estim Creat Clear Calc 88.48, Est GFR (MDRD) Af Amer 111, Est GFR (MDRD) Non-Af 92, BUN/Creatinine Ratio 12.6, Glucose 95, Calcium 8.7, Total Bilirubin 0.30, AST 22, ALT 22, Alkaline Phosphatase 83, C-React Prot Ext Range 42.90 H, Total Protein 7.3, Albumin 2.8 L, Globulin 4.5 H, Albumin/Globulin Ratio 0.6 L, Prealbumin 26.4 Current Medications Acetaminophen (Tylenol) 650 mg PO Q6H PRN PRN PRN Reason: Pain Score 1-10/10 Last Admin: 03/15/20 12:25 Dose: 650 mg Documented by: Al Hydroxide/Mg Hydroxide (Mylanta Ii) 30 ml PO Q6H PRN PRN PRN Reason: INDIGESTION Last Admin: 03/14/20 17:35 Dose: 30 ml Documented by: Albuterol Sulfate (Ventolin Aerosols) 2.5 mg INHALATION Q4H PRN PRN Reason: Wheezing Last Admin: 03/14/20 19:44 Dose: 2.5 mg Documented by: Aripiprazole (Abilify) 5 mg PO DAILY [facility] Last Admin: 03/15/20 08:27 Dose: 5 mg Documented by: Benzonatate (Tessalon Perle) 200 mg PO TID PRN PRN PRN Reason: COUGH Bupropion HCl (Wellbutrin Xl) 300 mg PO DAILY [facility] Last Admin: 03/15/20 08:29 Dose: 300 mg Documented by: Buspirone HCl (Buspar) 10 mg PO BID PRN PRN PRN Reason: ANXIETY Diazepam (Valium) 5 mg PO 4X/DAY PRN PRN PRN Reason: SPASMS Docusate Sodium (Colace) 100 mg PO BID [facility] Last Admin: 03/15/20 08:27 Dose: 100 mg Documented by: Famotidine (Pepcid) 20 mg PO QHS [facility] Last Admin: 03/14/20 20:03 Dose: 20 mg Documented by: [facility]ous [facility]) [facility] Last Admin: 03/15/20 08:28 Dose: 325 mg Documented by: Folic Acid ([facility] Acid) [facility] Last Admin: 03/15/20 08:27 Dose: 1 mg Documented by: Gabapentin (Neurontin) 300 mg PO BID [facility] Last Admin: 03/15/20 08:28 Dose: 300 mg Documented by: Hydromorphone HCl (Dilaudid Inj) 1 mg IV Q3H PRN PRN PRN Reason: Pain Score 6-10/10 Last Admin: 03/14/20 21:06 Dose: 1 mg Documented by: Lactated Ringer's () 1,000 mls @ 60 mls/hr IV .[id number] [facility] Last Infusion: 03/15/20 12:26 Dose: 60 mls/hr Documented by: Vancomycin IV Pharmacy to Dose (1 ea/ Sodium Chloride) 500 mls @ 250 mls/hr IV X1 PRN; Protocol PRN Reason: Rx to Dose Sodium Chloride () 250 mls @ 15 mls/hr IV .[id number] PRN PRN Reason: Saline Flush Sodium Chloride () 250 mls @ 15 mls/hr IV .[id number] PRN PRN Reason: Additional IVPB Infusion Vancomycin HCl 1,750 mg/ (Sodium Chloride) 535 mls @ 250 mls/hr IV Q12H [facility] Last Infusion: 03/15/20 10:33 Dose: Infused Documented by: Lactobacillus Acidophilus (Acidophilus) 1 tablet PO BID [facility] Last Admin: 03/15/20 08:28 Dose: 1 tablet Documented by: Metoprolol Succinate (Toprol Xl (Beta Christin)) 50 mg PO DAILY [facility] Last Admin: 03/15/20 08:27 Dose: 50 mg Documented by: Ondansetron HCl (Zofran) 4 mg IV Q6H PRN PRN PRN Reason: NAUSEA Last Admin: 03/15/20 14:06 Dose: 4 mg Documented by: Oxycodone HCl (Oxyir) 10 mg PO Q4H PRN PRN PRN Reason: Pain Score 6-10/10 Last Admin: 03/15/20 12:26 Dose: 10 mg Documented by: Pantoprazole Sodium (Protonix) 40 mg PO BID [facility] Last Admin: 03/15/20 08:29 Dose: 40 mg Documented by: Pramipexole Dihydrochloride (Mirapex) 1 mg PO QHS [facility] Last Admin: 03/14/20 21:20 Dose: 1 mg Documented by: [facility] () [facility] Last Admin: 03/15/20 08:28 Dose: 8 mg Documented by: Promethazine HCl (Phenergan Tablet) 25 mg PO Q4H PRN PRN PRN Reason: NAUSEA/VOMITING Sodium Chloride () 10 - 40 ml IV UD PRN PRN Reason: SALINE FLUSH Last Admin: 03/15/20 14:07 Dose: 10 ml Documented by: Trazodone HCl (Desyrel) 150 mg PO QHS [facility] Last Admin: 03/14/20 21:21 Dose: 150 mg Documented by: Venlafaxine HCl (Effexor Xr) 225 mg PO DAILY [facility] Last Admin: 03/15/20 08:27 Dose: 225 mg Documented by: Warfarin Sodium (Jantoven) 2.5 mg PO Fr@1700 [facility] Warfarin Sodium (Jantoven) 5 mg PO SuMoTuWeThSa@1700 [facility] Medical Necessity - Tobacco Use Smoking Status: Never smoker Tobacco Use: Non-smoker Assessment/Plan All Active Problems MRSA (methicillin resistant Staphylococcus aureus) (Acute) Sinus tachycardia (Acute) Open wound of left lower extremity (Acute) Hematoma (Acute) Compartment syndrome of left lower extremity (Acute) 1. 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 2. Hematoma with compartment syndrome left leg s/p fasciotomies. 3. History of compromised skin grafts. 4. MRSA. 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 6. Lupus. 7. Immunocompromised state due to high risk medication, Methotrexate, for Lupus, currently off Methotrexate. 8. s/p surgical preparation left medial leg with incision and drainage and excisional debridement nonhealing fasciotomy MRSA infected ulcers (29.75 cm2) and placement Amniofill placental connective tissue powder, 1000 mg. VAC applied today. To be changed three times per week at 125 mmHg continuous suction. This is followed by a compression ky wrap. Prealbumin was 26.4. Encourage nutritional supplementation with protein to help the healing process. Operative culture shows Gram positive organism. Continue Vancomycin. Anticipate sending home on po antibiotics (Doxycycline). She has increased pain in the wound and with the VAC. She still needs intermittent IV analgesia. Will wean to po analgesia in anticipation for discharge tomorrow. Will write script for Doxycycline. Will write script for Percocet for pain (40 tabs) and for Valium for spasm (30 tabs). Will write script for Phenergan for nausea (30 tabs) and a refill and for Colace for constipation (60 tabs). Keep left leg elevated when sitting. Minimize standing. Followup [facility] one week, 03/21/20.
[2020-03-15 20:21] LABS: Vancomycin, Trough Level 8.3 ug/mL (5.0-15.0)
--- NOTE | 2020-03-15 21:00 | PCM.RX.CS ---
Consult Pharmacy has been consulted to manage selected antiobiotic: Vancomycin Type of Consult: Follow-up Prior Doses of Antibiotics Received/Current Regimen: current regimen is 1750mg IV q12h Labs: Sodium 135 mmol/L (136-145) L 03/15/20 06:49 Potassium 4.3 mmol/L (3.5-5.1) 03/15/20 06:49 Chloride 101 mmol/L (98-107) 03/15/20 06:49 Carbon Dioxide 30.0 mmol/L (21.0-32.0) 03/15/20 06:49 Anion Gap 4 (5-15) L 03/15/20 06:49 BUN 9 mg/dL (7-18) 03/15/20 06:49 Creatinine 0.72 mg/dL (0.55-1.02) 03/15/20 06:49 Est GFR (MDRD) Af Amer 111 mL/min (>60) 03/15/20 06:49 Est GFR (MDRD) Non-Af 92 mL/min (>60) 03/15/20 06:49 BUN/Creatinine Ratio 12.6 RATIO (10-20) 03/15/20 06:49 Glucose 95 mg/dL (74-106) 03/15/20 06:49 Vancomycin Trough 8.3 ug/mL (5.0-15.0) 03/15/20 19:44 Microbiology: Microbiology 03/14/20 10:40 Tissue - Leg Gram Stain - Final 03/14/20 10:40 Tissue - Leg Wound Culture - Preliminary Gram positive organism Weight used for dosin.1 kg Estimated Creatinine Clearance: 143ml/min Goal Trough: 10-15 mcg/mL Pharmacy Plan for Drug Dosing: Trough drawn tonight came back as 8.3. Goal range is 10-15 but the patient has had only 1 dose of 1000mg and 2 doses of the 1750mg prior to the trough. Will keep the patient on the same dosing for now but check a trough again after 3 more doses. The patient's CrCl of 143 was calculated using an adjusted body weight of 95.6kg. Pharmacy Service will continue to monitor and adjust dosing as required. Follow-Up Labs: Trough Vancomycin Labs to be done on [date and time ordered]: 03/17/20 07:30
[2020-03-15] MEDS: traZODone 100 MG Tablet 150 MG PO (22:32)
[2020-03-15] MEDS: Famotidine 20 MG Tablet PO (22:32)
[2020-03-15] MEDS: Pramipexole Di-HCl 1 MG Tablet PO (22:33)
[2020-03-16] MEDS: Lactated Ringers 1,000 ML 60 ML IV (03:57)
[2020-03-16 04:01] VITALS: BP 102/62; PULSE 85; RESP 16; TEMP 36.5; O2SAT 94
[2020-03-16 07:14] VITALS: O2SAT 96
[2020-03-16] MEDS: Juven (unflavored) Packet 1 PACKET PO (07:41)
[2020-03-16] MEDS: Gabapentin 300 MG Capsule PO (07:41)
[2020-03-16] MEDS: predniSONE 1 MG Tablet 8 MG PO (07:41)
[2020-03-16 07:42] VITALS: PULSE 83
[2020-03-16] MEDS: buPROPion (XL) 300 MG TABLET.XL PO (07:42)
[2020-03-16] MEDS: Pantoprazole Sodium 40 MG Tablet PO (07:42)
[2020-03-16] MEDS: Venlafaxine XR 75 MG Capsule 225 MG PO (07:42)
[2020-03-16] MEDS: Metoprolol(XL)Succ 50 MG Tablet PO (07:42)
[2020-03-16] MEDS: Ferrous Sulfate 325 MG Tablet PO (07:43)
[2020-03-16] MEDS: ARIPiprazole 5 MG Tablet PO (07:43)
[2020-03-16] MEDS: Docusate Sodium 100 MG Capsule PO (07:43)
[2020-03-16] MEDS: Folic Acid 1 MG Tablet PO (07:43)
[2020-03-16] MEDS: Acetaminophen 325 MG Tablet 650 MG PO ×2 (07:49→14:32)
[2020-03-16 07:51] VITALS: BP 144/89; PULSE 83; RESP 18; TEMP 36.7; O2SAT 98
[2020-03-16] MEDS: oxyCODONE 5 MG Tablet 10 MG PO (14:32)
[2020-03-16 14:35] VITALS: BP 103/84; PULSE 79; RESP 16; TEMP 36.6; O2SAT 98
--- NOTE | 2020-03-16 16:35 | PCM.DC ---
You will use the following diet at home:: No restrictions, Other - encourage nutritional supplementation with protein to help the healing process. Discharge Activity: May not drive while taking narcotic pain medications., May Shower - wear plastic bag over left leg when showering., - - no standing. elevate left leg when sitting. May shower in (days): 1 - wear plastic bag over left leg when showering. May resume sexual activity in: No Restrictions Weight Bearing Status: Weight bearing as tolerated Keep extremity elevated above heart level: Left Leg Call your doctor if your incision/area has: Continuous Slow Oozing, Sudden Increased Bleeding, Increased Pain/ Swelling, Increased Redness, Foul Smelling Discharge, Swelling at the incision site Call your doctor if you observe: Fever of 101 or Higher, Coldness, Increased Pain, Shortness of breath, Chest pain, Calf discomfort, Uncontrolled pain Suture Line Care: - - vac changes three times per week at 125 mmHg continuous suction. Change Dressing in (Days):: 2 - vac changes three times per week. Cleanse incision/area with: - - wear plastic bag over left leg when showering. Additional Dressing/Incision Instructions:: Home Health to assist with vac changes to left leg three times per week at 125 mmHg continuous suction. Leave the adaptic in the wound. It will be removed at the wound center. Allergies/Adverse Reactions: Allergies adhesive tape Adverse Reaction (Verified 03/14/20 08:05) Rash Medications to take at Discharge Aripiprazole [Abilify] 5 mg PO DAILY 07/10/18 Omeprazole 40 mg PO BID 07/10/18 Bupropion HCl [Bupropion Xl] 300 mg PO DAILY 08/25/18 Ropinirole HCl [Ropinirole ER] 2 mg PO QHS 08/25/18 Folic Acid 1 mg PO DAILY 01/23/19 Ferrous Sulfate 325 mg PO DAILY 03/27/19 Lactobacillus Acidophilus [Acidophilus] 1 ea PO BID 03/27/19 Venlafaxine XR [Effexor Xr] 225 mg PO DAILY 04/10/19 traZODone [Desyrel] 150 mg PO QHS 04/10/19 Prednisone 8 mg PO DAILY 05/18/19 Metoprolol(XL)Succ [Toprol Xl (Beta Christin)] 50 mg PO DAILY tab 12/30/19 gabapentin 300 mg capsule 300 mg PO BID 30 Days #60 cap 01/25/20 Albuterol IH (ProAir) [Proair Hfa] 1 puff INHALATION Q4H PRN PRN #1 inhaler 01/26/20 Benzonatate [Tessalon Perle] 200 mg PO TID PRN PRN #20 cap 01/26/20 Warfarin [Coumadin] 2.5 mg PO FR 01/26/20 Famotidine [Acid Controller] 20 mg PO QHS 03/04/20 Warfarin [Coumadin] 5 mg PO SUMOTUWETHSA 03/04/20 busPIRone [Buspar] 10 mg PO PRN PRN 03/04/20 Amox/Clavulanate Tablet [Augmentin Tablet] 875 mg PO Q12H #42 tab 03/16/20 Diazepam [Valium] 5 mg PO 4X/DAY PRN PRN #30 tab 03/16/20 Docusate Sodium [Colace] 100 mg PO BID #60 cap 03/16/20 Doxycycline Monohydrate 100 mg PO BID #42 cap 03/16/20 Mag Hydrox/Al Hydrox/Simeth [Mylanta II] 30 ml PO Q6H PRN PRN udc 03/16/20 Oxycodone HCl/Acetaminophen [Oxycodone-Acetaminophen 5-325] 1 tab PO .Q4HOUR PRN PRN 7 Days #40 tab 03/16/20 proMETHazine tablet [Phenergan tablet] 25 mg PO 4X/DAY PRN PRN #30 tab 03/16/20 The following prescriptions were given: Amox/Clavulanate Tablet [Augmentin Tablet] 875 mg PO Q12H #42 tab Transmission Status: Pending to [id number] Docusate Sodium [Colace] 100 mg PO BID #60 cap Transmission Status: Pending to [id number] Doxycycline Monohydrate 100 mg PO BID #42 cap Transmission Status: Pending to [id number] Oxycodone HCl/Acetaminophen [Oxycodone-Acetaminophen 5-325] 1 tab PO .Q4HOUR PRN PRN 7 Days #40 tab PRN Reason: Pain Score 4-5/10 Transmission Status: Received by [id number] proMETHazine tablet [Phenergan tablet] 25 mg PO 4X/DAY PRN PRN #30 tab PRN Reason: NAUSEA/VOMITING Transmission Status: Pending to [id number] Diazepam [Valium] 5 mg PO 4X/DAY PRN PRN #30 tab PRN Reason: Spasms Transmission Status: Received by [id number] Primary Care Physician: Tarah Dubon DO [Primary Care Provider] - Test Results: Test results from this visit will be discussed in further detail at your follow-up appointment, if applicable. Please Follow Up With: Nghia Kent MD - call [phone] if any questions. When: saturday03/21/20 at [facility] at 1000am. Proposed Discharge Date: 03/16/20
--- NOTE | 2020-03-16 16:54 | PCM.PN.SRG ---
Subjective: Patient states pain is much more controlled today. She would like to be discharged. - Physical Exam Vitals/I&O's: Vital Signs Temp Pulse Resp BP Pulse Ox 97.9 F 79 16 103/84 H 98 03/16/20 14:35 03/16/20 14:35 03/16/20 14:35 03/16/20 14:35 03/16/20 14:35 Oxygen Flow Rate (L/min) 2 Oxygen Delivery Method Room Air Weight: 330 lb 14.621 oz Body Mass Index (BMI) 53.1 Finger Stick Blood Glucose 115 Intake and Output for Last 24 Hours 03/14/20 03/15/20 03/16/20 23:59 23:59 23:59 Intake Total 2573.33 / 2823.33 4185 / 4185 3033 / 3033 Output Total 750 / 1050 1800 / 1800 1000 / 1000 Balance 1823.33 / 1773.33 2385 / 2385 203 / 2033 General: Alert, Oriented x3, Cooperative HEENT: Atraumatic Oral: Moist Mucosa Lungs: Normal air movement Abdomen: Obese Extremities: Capillary Refill Less than 3 Seconds, Edema, Peripheral Pulses Normal Skin: Ulcer/ Wound - Left leg dressing with wound VAC in place and MENDEZ wrap for compression Musculoskeletal: Tenderness Neurological: Cranial nerves II-XII grossly intact Psych/Mental Status: Normal Affect, Appropriate Microbiology Past 72 Hours 03/14/20 10:40 Tissue - Leg Gram Stain - Final 03/14/20 10:40 Tissue - Leg Wound Culture - Preliminary Staphylococcus aureus GPC Poss Enterococcus sp 03/14/20 10:40 Tissue - Leg Anaerobic Culture - Preliminary Checking for anaerobes, further studies to follow. Laboratory Results 03/15/20 19:44: Vancomycin Trough 8.3 Current Medications Acetaminophen (Tylenol) 650 mg PO Q6H PRN PRN PRN Reason: Pain Score 1-10/10 Last Admin: 03/16/20 14:32 Dose: 650 mg Documented by: Al Hydroxide/Mg Hydroxide (Mylanta Ii) 30 ml PO Q6H PRN PRN PRN Reason: INDIGESTION Last Admin: 03/14/20 17:35 Dose: 30 ml Documented by: Albuterol Sulfate (Ventolin Aerosols) 2.5 mg INHALATION Q4H PRN PRN Reason: Wheezing Last Admin: 08/24/20 19:44 Dose: 2.5 mg Documented by: Aripiprazole (Abilify) 5 mg PO DAILY [facility] Last Admin: 03/16/20 07:43 Dose: 5 mg Documented by: Benzonatate (Tessalon Perle) 200 mg PO TID PRN PRN PRN Reason: COUGH Bupropion HCl (Wellbutrin Xl) 300 mg PO DAILY [facility] Last Admin: 03/16/20 07:42 Dose: 300 mg Documented by: Buspirone HCl (Buspar) 10 mg PO BID PRN PRN PRN Reason: ANXIETY Diazepam (Valium) 5 mg PO 4X/DAY PRN PRN PRN Reason: SPASMS Docusate Sodium (Colace) 100 mg PO BID [facility] Last Admin: 03/16/20 07:43 Dose: 100 mg Documented by: Famotidine (Pepcid) 20 mg PO QHS [facility] Last Admin: 03/15/20 22:32 Dose: 20 mg Documented by: [facility]ous S[facility]) [facility] Last Admin: 03/16/20 07:43 Dose: 325 mg Documented by: Folic Acid ([facility] Acid) [facility] Last Admin: 03/16/20 07:43 Dose: 1 mg Documented by: Gabapentin (Neurontin) 300 mg PO BID [facility] Last Admin: 03/16/20 07:41 Dose: 300 mg Documented by: Hydromorphone HCl (Dilaudid Inj) 1 mg IV Q3H PRN PRN PRN Reason: Pain Score 6-10/10 Last Admin: 03/14/20 21:06 Dose: 1 mg Documented by: Lactated Ringer's () 1,000 mls @ 60 mls/hr IV .[id number] [facility] Last Infusion: 03/16/20 16:43 Dose: Infused Documented by: Vancomycin IV Pharmacy to Dose (1 ea/ Sodium Chloride) 500 mls @ 250 mls/hr IV X1 PRN; Protocol PRN Reason: Rx to Dose Sodium Chloride () 250 mls @ 15 mls/hr IV .[id number] PRN PRN Reason: Saline Flush Sodium Chloride () 250 mls @ 15 mls/hr IV .[id number] PRN PRN Reason: Additional IVPB Infusion Vancomycin HCl 1,750 mg/ (Sodium Chloride) 535 mls @ 250 mls/hr IV Q12H [facility] Last Infusion: 03/16/20 10:24 Dose: Infused Documented by: Lactobacillus Acidophilus (Acidophilus) 1 tablet PO BID [facility] Last Admin: 03/16/20 07:43 Dose: 1 tablet Documented by: Metoprolol Succinate (Toprol Xl (Beta Christin)) 50 mg PO DAILY [facility] Last Admin: 03/16/20 07:42 Dose: 50 mg Documented by: Ondansetron HCl (Zofran) 4 mg IV Q6H PRN PRN PRN Reason: NAUSEA Last Admin: 03/15/20 14:06 Dose: 4 mg Documented by: Oxycodone HCl (Oxyir) 10 mg PO Q4H PRN PRN PRN Reason: Pain Score 4-5/10 Last Admin: 03/16/20 14:32 Dose: 10 mg Documented by: Pantoprazole Sodium (Protonix) 40 mg PO BID [facility] Last Admin: 03/16/20 07:42 Dose: 40 mg Documented by: Pramipexole Dihydrochloride (Mirapex) 1 mg PO QHS [facility] Last Admin: 03/15/20 22:33 Dose: 1 mg Documented by: [facility] () [facility] Last Admin: 03/16/20 07:41 Dose: 8 mg Documented by: Promethazine HCl (Phenergan Tablet) 25 mg PO Q4H PRN PRN PRN Reason: NAUSEA/VOMITING Sodium Chloride () 10 - 40 ml IV UD PRN PRN Reason: SALINE FLUSH Last Admin: 03/15/20 14:07 Dose: 10 ml Documented by: Trazodone HCl (Desyrel) 150 mg PO QHS [facility] Last Admin: 03/15/20 22:32 Dose: 150 mg Documented by: Venlafaxine HCl (Effexor Xr) 225 mg PO DAILY [facility] Last Admin: 03/16/20 07:42 Dose: 225 mg Documented by: Warfarin Sodium (Jantoven) 2.5 mg PO Fr@1700 [facility] Warfarin Sodium (Jantoven) 5 mg PO SuMoTuWeThSa@1700 [facility] Last Admin: 03/15/20 17:11 Dose: 5 mg Documented by: Medical Necessity - Tobacco Use Smoking Status: Never smoker Tobacco Use: Non-smoker Assessment/Plan All Active Problems MRSA (methicillin resistant Staphylococcus aureus) (Acute) Sinus tachycardia (Acute) Open wound of left lower extremity (Acute) Hematoma (Acute) Compartment syndrome of left lower extremity (Acute) 1. 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 2. Hematoma with compartment syndrome left leg s/p fasciotomies. 3. History of compromised skin grafts. 4. MRSA. 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 6. Lupus. 7. Immunocompromised state due to high risk medication, Methotrexate, for Lupus, currently off Methotrexate. 8. s/p surgical preparation left medial leg with incision and drainage and excisional debridement nonhealing fasciotomy MRSA infected ulcers (29.75 cm2) and placement Amniofill placental connective tissue powder, 1000 mg. VAC applied yesterday and she is tolerating it well. To be changed three times per week at 125 mmHg continuous suction. This is followed by a compression mendez wrap. Prealbumin was 26.4. Encourage nutritional supplementation with protein to help the healing process. Operative culture shows Gram positive organism. Continue Vancomycin. Anticipate sending home on po antibiotics (Doxycycline). Her pain is much better controlled today, she is taking po analgesia. Script written for Doxycycline. Script writen for Percocet for pain (40 tabs) and for Valium for spasm (30 tabs). PDMP reviewed. Script written for Phenergan for nausea (30 tabs) and a refill and for Colace for constipation (60 tabs). Keep left leg elevated when sitting. Minimize standing. Followup at [facility] one week, 03/21/20.
== END 2020-03-16 17:38 | disposition home health service (06) ==
LOC: SDC 12:06 → MS3 12:06
PROVIDERS: Anesthesiology; Admitting Provider Surgery; PCP Family Medicine; Referring Provider Surgery; Visit Provider Surgery
PROC: (CPT 15002; principal; 2020-03-14 09:10)
DX: L97.822 Non-pressure chronic ulcer of other part of left lower leg with fat layer exposed (principal); Z11.59 Encounter for screening for other viral diseases; M32.9 Systemic lupus erythematosus, unspecified; E66.01 Morbid (severe) obesity due to excess calories; Z68.43 Body mass index [BMI] 50.0-59.9, adult; T79.A22S Traumatic compartment syndrome of left lower extremity, sequela; T14.8XXS Other injury of unspecified body region, sequela; X58.XXXS Exposure to other specified factors, sequela; T86.828 Other complications of skin graft (allograft) (autograft); A49.02 Methicillin resistant Staphylococcus aureus infection, unspecified site; Z79.899 Other long term (current) drug therapy; Z79.01 Long term (current) use of anticoagulants; R00.0 Tachycardia, unspecified; G47.30 Sleep apnea, unspecified; K21.9 Gastro-esophageal reflux disease without esophagitis; G25.81 Restless legs syndrome; Z86.711 Personal history of pulmonary embolism; F41.9 Anxiety disorder, unspecified; F32.9 Major depressive disorder, single episode, unspecified
CPT/HCPCS: 15002; 27603; 36415; 36416; 80053; 80202; 82565; 84134; 85027; 85610; 85652; 86140; 87070; 87075; 87077; 87102; 87176; 87186; 87205; 87206; 87635; 88304; 88305; 94640; 94762; 94799; 96365; 96366; 96375; 96376; 97802; 99218; 99251; J7040; J7120; A4216; G0378; G0379; G0463; J2405; U0003

== ENCOUNTER 2020-03-21 13:00 | Outpatient (RCR) | payer MEDICAID, SELFPAY ==
[2020-02-20 00:22] VITALS: BP 134/77; PULSE 103; RESP 20; TEMP 36.4; O2SAT 96; BMI 53.6
[2020-02-22 08:21] VITALS: BP 153/93; PULSE 113; RESP 16; TEMP 37.3; BMI 53.6
--- NOTE | 2020-02-22 09:18 | PCM.WC.PN ---
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 History of Wound: Surgery 01/01/20 - Surgical preparation left medial leg with excisional debridement nonhealing fasciotomy MRSA ulcer and 18 cm complex secondary wound closure and placement of AmnioFill placental connective tissue powder, (500 mg). Wound care - She has several small open areas along the suture line that she will pack Aquacel-AG daily into the opened areas. The edema has increased. Will apply 3M2L wrap to the left leg. She will return on for a nurse visit and to evaluate how she is handling the 3M wraps. Wound culture obtained today 02/22/20. Operative culture - negative. She was being treated for preop (12/07/19) MRSA with Doxycycline. She was treated perioperatively with Vancomycin and discharged on Doxycycline. She completed the Doxycycline. Prealbumin from 01/02/20 was 25.6. Encourage nutritional supplementation with protein to help the healing process. Today she denies fever. Her appetite is good. Progress of Wound: Improved. - Physical Exam Vital Signs Temp Pulse Resp BP Pulse Ox 99.1 F 113 H 16 153/93 H 96 02/22/20 08:21 02/22/20 08:21 02/22/20 08:21 02/22/20 08:21 02/20/20 00:22 General: Alert, Oriented x3 HEENT: Atraumatic Oral: Moist Mucosa Lungs: Normal air movement Cardiovascular: Regular rate Abdomen: Obese Extremities: Capillary Refill Less than 3 Seconds, Edema Skin: Ulcer/ Wound - Left medial incision with several opened areas that are draining serosanguineous drainage and there is over 2 cm depth Wound Measurements and Assessment WC - Nurse 1 - General Ulcer Measurement Start: 02/22/20 08:20 Freq: Status: Active Protocol: Activity Type Activity Date Activity User E-Sign Co-Sign Detail Recorded Client Recorded Date Recorded By Document 02/22/20 08:21 [facility] [id number] 02/22/20 08:26 [facility] 02/22/20 08:21 Wound Center Nurse 1 [Ulcer Assessment] #1 LLL medial, post op incision -Combined with other wound No -Current Size (cm) - Length 7.3 -Current Size (cm) - Width 0.5 -Current Size (cm) - Depth 0.3 -Total Square Cm 3.65 -Photo Taken No -Epithelialization None Present -Tunneling No -Undermining/Tunneling No -Circular Undermining No -Exudate Amt Small -Exudate Type Serous -Wound Margin Distinct, Outline Attached -Granulation Amt None Present (0 %) -Slough/Fibrin Yes -Necrosis Amt Large (67-100%) -Necrotic Tissue Type Adherent Slough -Texture (Kisha-wound Skin Appearance) Assessed, Scarring -Moisture (Kisha-wound Skin Appearance Assessed,Dry/ ) Scaly -Color (Kisha-wound Skin Appearance) Assessed -Temperature (Kisha-wound Skin No Abnormality Appearance) (Pt Warm) -Tenderness on Palpation (Kisha-wound No Skin Appearance) -Ulcer Cleansing Rinsed/ Irrigated with Saline -Foul Odor after Cleansing No -Anesthetic Used 4% Lidocaine Solution [Edema Assessment] -Lower Limb Edema Present Yes -Left Calf (cm) 45 -Left Ankle (cm) 23.2 WC - Nurse 2 - General Ulcer CM Notes Start: 02/22/20 08:20 Freq: Status: Active Protocol: Activity Type Activity Date Activity User E-Sign Co-Sign Detail Recorded Client Recorded Date Recorded By Document 02/22/20 08:47 [id number] 02/22/20 08:54 02/22/20 08:47 Wound Center Nurse 2 [Procedure/Treatment] #1 LLL medial, post op incision -Time 08:53 -Correct Patient Yes -Correct Side, Site, Position Yes -Correct Procedure Yes -Procedure Performed Yes -Type of Procedure Debridement -Clinical Debridement Subcutaneous -Post Debridement Size (cm) - Length 7.4 -Post Debridement Size (cm) - Width 0.7 -Post Debridement Size (cm) - Depth 2.4 -Total Square (cm) 5.18 -Wound/Ulcer Outcome Not Healed -Ulcer Cleansing Rinsed/ Irrigated with Saline -Foul Odor after Cleansing No -Bioengineered Tissue No -Bleeding Controlled with Pressure -Offloading No -Treatment Response Procedure Tolerated Well [See Physician Procedure note for Specifics] Pain Scale: 0-10 Numeric [Pain] -Is Patient Pain Free? Yes Musculoskeletal: No Tenderness to Palpation of Joints or Extremities Neurological: Cranial nerves II-XII grossly intact Psych/Mental Status: Normal Affect, Appropriate Debridement Note Post-Debridement Measurements/Treatment WC - Nurse 2 - General Ulcer CM Notes Start: 02/22/20 08:20 Freq: Status: Active Protocol: Activity Type Activity Date Activity User E-Sign Co-Sign Detail Recorded Client Recorded Date Recorded By Document 02/22/20 08:47 [id number] 02/22/20 08:54 02/22/20 08:47 Wound Center Nurse 2 #1 LLL medial, post op incision -Time 08:53 -Correct Patient Yes -Correct Side, Site, Position Yes -Correct Procedure Yes -Procedure Performed Yes -Type of Procedure Debridement -Clinical Debridement Subcutaneous -Post Debridement Size (cm) - Length 7.4 -Post Debridement Size (cm) - Width 0.7 -Post Debridement Size (cm) - Depth 2.4 -Total Square (cm) 5.18 -Wound/Ulcer Outcome Not Healed -Ulcer Cleansing Rinsed/ Irrigated with Saline -Foul Odor after Cleansing No -Bioengineered Tissue No -Bleeding Controlled with Pressure -Offloading No -Treatment Response Procedure Tolerated Well Pain Scale: 0-10 Numeric Is Patient Pain Free? Yes Wound debrided: Medial leg cluster Laterality: Left Type of Debridement: Excisional debridement Anesthesia Used: 4% Lidocaine Solution Depth: Down to and including healthy tissue, in the subcutaneous layer Percentage of wound debrided: 100 Instrument Used: 3mm curette Tissue Removed: Subcutaneous tissue and slough Severity: Limited To Skin Breakdown Amount of bleeding with debridement: Mild Bleeding Controlled with: Pressure Patient tolerated procedure well Assessment/Plan Active Problems Anxiety (Chronic) Bilateral lower extremity edema (Chronic) Ulcer of left lower extremity (Chronic) 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) on Methotrexate for Lupus skilled nursing current use of anticoagulant (Chronic) Assessment: 1. Nonhealing fasciotomy ulcer left medial leg, s/p closure 01/01/20. 2. Hematoma with compartment syndrome left leg s/p fasciotomies. 3. History of compromised skin grafts. 4. MRSA. 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 6. Lupus. 7. Immunocompromised state due to high risk medication, Methotrexate, for Lupus, currently off Methotrexate. 8. s/p surgical preparation left medial leg with excisional debridement nonhealing fasciotomy MRSA ulcer and 18 cm complex secondary wound closure and placement of AmnioFill placental connective tissue powder, (500 mg). Plan: She now has a cluster of opened areas on the incision line of the left medial leg that are drainaing serosanguineous drainage. A subcutaneous debridement was performed to the opened areas. A wound culture was obtained today, 02/22/20, depending on the results, it may necessitate the need for antibiotics. Wound care - She has several small open areas along the suture line that she will pack Aquacel-AG daily into the opened areas. The edema has increased. Will apply 3M2L wrap to the left leg. She will return on for a nurse visit and to evaluate how she is handling the 3M wraps. Stressed the importance of compression. Instructed her that the small open areas that she has on her incision line is because of her edema and that it can eventually reopen the incision if she doesn't get the edema under control. Discussed laying flat a couple times per day for 20 minutes to help with edema. She is complaining of burning pain down her left ankle and foot. She states it is waking her up at night because of the pain. She was started on Neurontin and have her start at bedtime and after several days she can try taking it twice a day. Instructed her that it may make her tired, if it does make her too tired then she can take it only at bedtime. Completed Doxycycline for preop (12/07/19) MRSA. The operative culture is negative. Prealbumin was 25.3 on 01/02/20. Encourage nutritional supplementation with protein to help the healing process. Keep left leg elevated when sitting. Minimize standing. Followup one week. [id number]: [id number] Global Visit
[2020-02-25 08:15] VITALS: BP 137/91; PULSE 107; RESP 18; TEMP 36.7; BMI 53.6
--- NOTE | 2020-02-26 12:29 | WC ---
TC FROM DIDI KLEIN. N.O. TO START AUGMENTIN FOR + WOUND CX RESULTS. RX CALLED TO [facility] IN [place]. PT UPDATED AND AGREEABLE. VERIFIED ALLERGIES.
[2020-02-29 08:07] VITALS: BP 165/75; PULSE 104; RESP 16; TEMP 37.1; BMI 53.6
--- NOTE | 2020-02-29 15:36 | PCM.WC.PN ---
(1) Ulcer of left lower extremity Status: Chronic Current Visit: Yes Code(s): L97.929 - Non-pressure chronic ulcer of unspecified part of left lower leg with unspecified severity (2) Bilateral lower extremity edema Status: Chronic Current Visit: Yes Code(s): R60.0 - Localized edema (3) Anxiety Status: Chronic Current Visit: Yes Code(s): F41.9 - Anxiety disorder, unspecified (4) Immunocompromised state due to drug therapy Status: Chronic Current Visit: Yes Code(s): Z79.899 - Other assisted (current) drug therapy Comment: on Methotrexate for Lupus (5) half-way current use of anticoagulant Status: Chronic Current Visit: Yes Code(s): Z79.01 - half-way (current) use of anticoagulants Type of Wound Date of Service: 02/29/20 Chief Complaint: Nonhealing fasciotomy ulcer left medial leg with skin graft compromise, s/p closure 01/01/20. History of Wound: Surgery 01/01/20 - Surgical preparation left medial leg with excisional debridement nonhealing fasciotomy MRSA ulcer and 18 cm complex secondary wound closure and placement of AmnioFill placental connective tissue powder, (500 mg). Wound care - She has several open areas along the suture line that she will pack Aquacel-AG daily into the opened areas. She tolerated the 3M wraps but the ulcers increased in size. Will have her do a spandigrip with an MENDEZ wrap. Wound culture obtained today 02/22/20. Operative culture - negative. She was being treated for preop (12/07/19) MRSA with Doxycycline. She was treated perioperatively with Vancomycin and discharged on Doxycycline. She completed the Doxycycline. Prealbumin from 01/02/20 was 25.6. Encourage nutritional supplementation with protein to help the healing process. Today she denies fever. Her appetite is good. Progress of Wound: Opened areas have enlarged and are connected. - Physical Exam Vital Signs Temp Pulse Resp BP Pulse Ox 98.8 F 104 H 16 165/75 H 96 02/29/20 08:07 02/29/20 08:07 02/29/20 08:07 02/29/20 08:07 02/20/20 00:22 General: Alert, Oriented x3 HEENT: Atraumatic Oral: Moist Mucosa Lungs: Normal air movement Cardiovascular: Regular rate Abdomen: Obese Extremities: Capillary Refill Less than 3 Seconds, Edema Skin: Ulcer/ Wound - Left medial incision with 3 large opened areas that are connected under the skin bridges. Wound Measurements and Assessment WC - Nurse 1 - General Ulcer Measurement Start: 02/22/20 08:20 Freq: Status: Active Protocol: Activity Type Activity Date Activity User E-Sign Co-Sign Detail Recorded Client Recorded Date Recorded By Document 02/29/20 08:07 [facility] [id number] 02/29/20 08:12 [facility] 02/29/20 08:07 Wound Center Nurse 1 [Ulcer Assessment] #1 LLL medial, post op incision -Combined with other wound No -Current Size (cm) - Length 5.3 -Current Size (cm) - Width 1.5 -Current Size (cm) - Depth 2.7 -Total Square Cm 7.95 -Date of Last Picture (Recall this 02/29/20 field) -Photo Taken Yes -Epithelialization None Present -Tunneling No -Undermining/Tunneling No -Circular Undermining No -Exudate Amt Medium -Exudate Type Serosanguineous -Wound Margin Distinct, Outline Attached -Granulation Amt Medium (34-66%) -Granulation Quality Red -Slough/Fibrin Yes -Necrosis Amt Medium (34-66%) -Necrotic Tissue Type Adherent Slough -Texture (Kisha-wound Skin Appearance) Assessed, Localized Edema ,Scarring -Moisture (Kisha-wound Skin Appearance Assessed ) -Color (Kisha-wound Skin Appearance) Assessed, Erythema -Temperature (Kisha-wound Skin No Abnormality Appearance) (Pt Warm) -Tenderness on Palpation (Kisha-wound Yes Skin Appearance) -Ulcer Cleansing Rinsed/ Irrigated with Saline -Foul Odor after Cleansing No -Anesthetic Used 4% Lidocaine Solution [Edema Assessment] -Lower Limb Edema Present Yes -Left Calf (cm) 46 -Left Ankle (cm) 24.8 WC - Nurse 2 - General Ulcer CM Notes Start: 02/22/20 08:20 Freq: Status: Active Protocol: Activity Type Activity Date Activity User E-Sign Co-Sign Detail Recorded Client Recorded Date Recorded By Document 02/29/20 08:39 [id number] 02/29/20 08:41 02/29/20 08:39 Wound Center Nurse 2 [Procedure/Treatment] #1 LLL medial, post op incision -Time 08:39 -Correct Patient Yes -Correct Side, Site, Position Yes -Correct Procedure Yes -Procedure Performed Yes -Type of Procedure Debridement -Clinical Debridement Subcutaneous -Post Debridement Size (cm) - Length 5.2 -Post Debridement Size (cm) - Width 1.3 -Post Debridement Size (cm) - Depth 2.0 -Total Square (cm) 6.76 -Wound/Ulcer Outcome Not Healed -Ulcer Cleansing Rinsed/ Irrigated with Saline -Foul Odor after Cleansing No -Bioengineered Tissue No -Bleeding Controlled with Pressure -Offloading No -Treatment Response Procedure Tolerated Well [See Physician Procedure note for Specifics] Pain Scale: 0-10 Numeric [Pain] -Is Patient Pain Free? Yes Musculoskeletal: Tenderness Neurological: Cranial nerves II-XII grossly intact Psych/Mental Status: Normal Affect, Appropriate Debridement Note Post-Debridement Measurements/Treatment WC - Nurse 2 - General Ulcer CM Notes Start: 02/22/20 08:20 Freq: Status: Active Protocol: Activity Type Activity Date Activity User E-Sign Co-Sign Detail Recorded Client Recorded Date Recorded By Document 02/22/20 08:47 [id number] 02/22/20 08:54 Document 02/29/20 08:39 [id number] 02/29/20 08:41 02/22/20 02/29/20 08:47 08:39 Wound Center Nurse 2 #1 LLL medial, post op incision -Time 08:53 08:39 -Correct Patient Yes Yes -Correct Side, Site, Position Yes Yes -Correct Procedure Yes Yes -Procedure Performed Yes Yes -Type of Procedure Debridement Debridement -Clinical Debridement Subcutaneous Subcutaneous -Post Debridement Size (cm) - Length 7.4 5.2 -Post Debridement Size (cm) - Width 0.7 1.3 -Post Debridement Size (cm) - Depth 2.4 2.0 -Total Square (cm) 5.18 6.76 -Wound/Ulcer Outcome Not Healed Not Healed -Ulcer Cleansing Rinsed/ Rinsed/ Irrigated with Irrigated with Saline Saline -Foul Odor after Cleansing No No -Bioengineered Tissue No No -Bleeding Controlled with Pressure Pressure -Offloading No No -Treatment Response Procedure Procedure Tolerated Well Tolerated Well Pain Scale: 0-10 Numeric Is Patient Pain Free? Yes Yes Wound debrided: medial leg Laterality: Left Type of Debridement: Excisional debridement Anesthesia Used: 5% Lidocaine Gel Depth: Down to and including healthy tissue, in the subcutaneous layer Percentage of wound debrided: 100 Instrument Used: 5mm curette Tissue Removed: Subcutaneous tissue and slough Severity: Fat Layer Exposed Amount of bleeding with debridement: Mild Bleeding Controlled with: Pressure, Compression and gauze Patient tolerated procedure well Assessment/Plan Active Problems Anxiety (Chronic) Bilateral lower extremity edema (Chronic) Ulcer of left lower extremity (Chronic) 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) 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 Nonhealing fasciotomy ulcer left medial leg, s/p closure 01/01/20. 2. Hematoma with compartment syndrome left leg s/p fasciotomies. 3. History of compromised skin grafts. 4. MRSA. 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 6. Lupus. 7. Immunocompromised state due to high risk medication, Methotrexate, for Lupus, currently off Methotrexate. 8. s/p surgical preparation left medial leg with excisional debridement nonhealing fasciotomy MRSA ulcer and 18 cm complex secondary wound closure and placement of AmnioFill placental connective tissue powder, (500 mg). Plan: She now has a cluster of opened areas on the incision line of the left medial leg that are drainaing serosanguineous drainage. They enlarged after having the 3M2L wrap. A subcutaneous debridement was performed to the opened areas. A wound culture was obtained on 02/22/20 which was positive for Corynebacterium amycolatum, Kocuria kristinae, and Aaerobic cocci. She was started on Augmentin. [facility] the open areas along the suture line. Stressed the importance of compression. Instructed her that the small open areas that she has on her incision line is because of her edema and that it can eventually reopen the incision if she doesn't get the edema under control. Discussed laying flat a couple times per day for 20 minutes to help with edema. Discussed her options with this incision opening up. Offered to send her to [facility] for a second opinion. She declined that. She would most likely benefit from a surgical debridement. Will have her see Dr. Kent next week to discuss all of her options. She is complaining of burning pain down her left ankle and foot. She states it is waking her up at night because of the pain. She was started on Neurontin and have her start at bedtime and after several days she can try taking it twice a day. Instructed her that it may make her tired, if it does make her too tired then she can take it only at bedtime. Completed Doxycycline for preop (12/07/19) MRSA. The operative culture is negative. Prealbumin was 25.3 on 01/02/20. Encourage nutritional supplementation with protein to help the healing process. Keep left leg elevated when sitting. Minimize standing. Followup one week. [id number]: [id number] Global Visit
[2020-03-07 08:12] VITALS: RESP 16; TEMP 35.9; BMI 53.6
--- NOTE | 2020-03-07 16:39 | PN.PCM_ITS ---
Type of Wound Date of Service: 03/07/20 Chief Complaint: Nonhealing fasciotomy ulcer left medial leg with skin graft compromise, s/p closure 01/01/20 with central ulcerations. History of Wound: Surgery 01/01/20 - Surgical preparation left medial leg with excisional debridement nonhealing fasciotomy MRSA ulcer and 18 cm complex secondary wound closure and placement of AmnioFill placental connective tissue powder, (500 mg). Wound care - Silver to three central ulcerations combined with spandigrip and an MENDEZ wrap. Wound culture from 02/22/20 showed Corynebacterium amycolatum, Kocuria kristinae, and Anaerobic cocci. She was placed on Augmentin and has finished them. Operative culture - negative. She was being treated for preop (12/07/19) MRSA with Doxycycline. She was treated perioperatively with Vancomycin and discharged on Doxycycline. She completed the Doxycycline. Prealbumin from 01/02/20 was 25.6. Encourage nutritional supplementation with protein to help the healing process. Today she denies fever. Her appetite is good. With the three central ulcerations that connect beneath the skin, it was recommended to proceed with operative intervention with surgical preparation left medial leg with incision and drainage and excisional debridement nonhealing infected ulcers. She was in agreeement. It is scheduled for next Saturday03/14/20. Progress of Wound: Central ulcerations that are connected beneath the skin. - Physical Exam Vital Signs Temp Pulse Resp BP Pulse Ox 96.7 F L 104 H 16 165/75 H 96 03/07/20 08:12 02/29/20 08:07 03/07/20 08:12 02/29/20 08:07 02/20/20 00:22 Wound Measurements and Assessment WC - Nurse 1 - General Ulcer Measurement Start: 02/22/20 08:20 Freq: Status: Active Protocol: Activity Type Activity Date Activity User E-Sign Co-Sign Detail Recorded Client Recorded Date Recorded By Document 03/07/20 08:12 [facility] [id number] 03/07/20 08:18 [facility] 03/07/20 08:12 Wound Center Nurse 1 [Ulcer Assessment] #1 LLL medial, post op incision -Combined with other wound No -Current Size (cm) - Length 4.6 -Current Size (cm) - Width 1 -Current Size (cm) - Depth 1.7 -Total Square Cm 4.6 -Photo Taken No -Epithelialization None Present -Tunneling Yes -Tunneling Position (O'clock) 12 -Tunneling Distance (cm) 2.1 -Undermining/Tunneling No -Circular Undermining No -Exudate Amt Medium -Exudate Type Serosanguineous -Wound Margin Distinct, Outline Attached -Granulation Amt None Present (0 %) -Slough/Fibrin Yes -Necrosis Amt Large (67-100%) -Necrotic Tissue Type Adherent Slough -Texture (Kisha-wound Skin Appearance) Assessed, Localized Edema ,Scarring -Moisture (Kisha-wound Skin Appearance Assessed ) -Color (Kisha-wound Skin Appearance) Assessed, Erythema -Temperature (Kisha-wound Skin No Abnormality Appearance) (Pt Warm) -Tenderness on Palpation (Kisha-wound Yes Skin Appearance) -Ulcer Cleansing Rinsed/ Irrigated with Saline -Foul Odor after Cleansing No -Anesthetic Used 4% Lidocaine Solution [Edema Assessment] -Lower Limb Edema Present Yes -Left Calf (cm) 45 -Left Ankle (cm) 24.1 WC - Nurse 2 - General Ulcer CM Notes Start: 03/07/20 09:48 Freq: Status: Active Protocol: Activity Type Activity Date Activity User E-Sign Co-Sign Detail Recorded Client Recorded Date Recorded By Document 03/07/20 10:25 PL [id number] 03/07/20 10:27 PL 03/07/20 10:25 Wound Center Nurse 2 [Procedure/Treatment] #1 LLL medial, post op incision -Time 08:38 -Correct Patient Yes -Correct Side, Site, Position Yes -Correct Procedure Yes -Procedure Performed Yes -Type of Procedure Debridement -Clinical Debridement Subcutaneous -Tissue Removed Subcutaneous -Post Debridement (cm) - Length 4.6 -Post Debridement (cm) - Width 1.1 -Post Debridement (cm) - Depth 2.2 -Total Square (Post) (cm) 5.06 -Area of Debridement (cm) - Length 4.6 -Area of Debridement (cm) - Width 1.1 -Total Square (Area) (cm) 5.06 -Wound/Ulcer Outcome Not Healed -Ulcer Cleansing Rinsed/ Irrigated with Saline -Foul Odor after Cleansing No -Bioengineered Tissue No -Bleeding Controlled with Pressure -Treatment Response Procedure Tolerated Well -Debridement - Subq, 1st 20sq cm Yes -Debridement, SubQ, ea addt'l 20sq cm 1 or part thereof [See Physician Procedure note for Specifics] Pain Scale: 0-10 Numeric [Pain] -Is Patient Pain Free? Yes Debridement Note Post-Debridement Measurements/Treatment WC - Nurse 2 - General Ulcer CM Notes Start: 03/07/20 09:48 Freq: Status: Active Protocol: Activity Type Activity Date Activity User E-Sign Co-Sign Detail Recorded Client Recorded Date Recorded By Document 03/07/20 10:25 PL [id number] 03/07/20 10:27 PL 03/07/20 10:25 Wound Center Nurse 2 #1 LLL medial, post op incision -Time 08:38 -Correct Patient Yes -Correct Side, Site, Position Yes -Correct Procedure Yes -Procedure Performed Yes -Type of Procedure Debridement -Clinical Debridement Subcutaneous -Tissue Removed Subcutaneous -Post Debridement (cm) - Length 4.6 -Post Debridement (cm) - Width 1.1 -Post Debridement (cm) - Depth 2.2 -Total Square (Post) (cm) 5.06 -Area of Debridement (cm) - Length 4.6 -Area of Debridement (cm) - Width 1.1 -Total Square (Area) (cm) 5.06 -Wound/Ulcer Outcome Not Healed -Ulcer Cleansing Rinsed/ Irrigated with Saline -Foul Odor after Cleansing No -Bioengineered Tissue No -Bleeding Controlled with Pressure -Treatment Response Procedure Tolerated Well -Debridement - Subq, 1st 20sq cm Yes -Debridement, SubQ, ea addt'l 20sq cm 1 or part thereof Pain Scale: 0-10 Numeric Is Patient Pain Free? Yes Wound debrided: #1 Left lower medial leg. Laterality: Left Wound Grade/Stage: 2. Type of Debridement: Excisional debridement Anesthesia Used: 4% Lidocaine Solution Depth: Down to and including healthy tissue, in the subcutaneous layer Percentage of wound debrided: 100 Instrument Used: 3mm curette Tissue Removed: subcutaneous tissue. 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 Nonhealing fasciotomy ulcer left medial leg, s/p closure 01/01/20, with central ulcerations. 2. Hematoma with compartment syndrome left leg s/p fasciotomies. 3. History of compromised skin grafts. 4. MRSA. 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 6. Lupus. 7. Immunocompromised state due to high risk medication, Methotrexate, for Lupus, currently off Methotrexate. Plan: She has three central ulcerations that communicate under the skin. A lot of drainage is noted. Discussed with the patient that the ulcerations will never heal with this much drainage and edema present. Continue Silver dressing changes daily followed by Spandigrip and MENDEZ wrap for compression. She is complaining of burning pain down her left ankle and foot. She states it is waking her up at night because of the pain. She was placed on Neurontin. Completed Doxycycline for preop (12/07/19) MRSA. The operative culture was negative. She was treated with Vancomycin perioperatively and discharged on Doxycycline. She has finished them as well. Prealbumin was 25.3 on 01/02/20. Encourage nutritional supplementation with protein to help the healing process. Keep left leg elevated when sitting. Minimize standing. She is scheduled for surgery next Saturday03/14/20 for surgical preparation left medial leg with incision and drainage and excisional debridement nonhealing infected ulcers. Will leave the wound open and proceed with wound care with the VAC. When stable, can then proceed with delayed closure with skin grafting. Tissue that is debrided will be sent to Pathology for analysis and to Microbiology for culture. A positive culture will necessitate antibiotic therapy. Patient was informed of the risks and complications of the procedure including alternatives to surgery. These were discussed with her personally. She voices understanding and wishes to proceed. Followup two weeks. We discussed the current risks associated with COVID-19. While it is understood that there is a community spread of COVID-19, the risk of garret COVID-19 while at [facility] ([facility]) is very low; however, the risk cannot be completely mitigated because of the community spread of the disease. We discussed in detail the risk of exposure to and/or potential harm posed by the COVID-19 virus with having a surgery/procedure at this time versus the risk of delaying the surgery/procedure. It is not possible to know either the risk of delaying the surgery or procedure or chance of getting an infection with perfect accuracy, but a joint decision was made to proceed at this time with the scheduled surgery/procedure as indicated on the consent form. Patient was notified that we will need to comply with any screening or testing [facility] wishes to perform or that surgery may be delayed for any positive results. Discussed with the patient that I was tested for COVID-19 on 01/21/20 which was negative and on 02/04/20 which was negative and on 02/18/20 which was negative and on 03/03/20 which was negative. My testing regimen at this time is to be COVID-19 tested every 2 weeks or so. Procedure Criteria. Procedure Type: Elective. COVID Risk Discussion: The surgeon/proceduralist and patient have discussed in detail the risk of exposure to and/or potential harm posed by the COVID-19 virus with having a surgery/procedure at this time versus the risk of delaying the surgery/procedure. It is not possible to know either the risk of delaying the surgery or procedure or chance of getting an infection with perfect accuracy, but a joint decision was made between the patient and the surgeon/proceduralist to proceed at this time with the scheduled surgery/procedure as indicated on the consent form. [id number]: [id number] Global Visit - ICD-10 - Z48.89, L97.922, T14.8xxS, T79.A22S, T86.828, A49.02, Z79.01, M32.9, Z79.899
[2020-03-21 10:05] VITALS: BP 131/89; PULSE 103; RESP 16; TEMP 35.9; BMI 53.6
--- NOTE | 2020-03-21 12:43 | VDLE_ITS ---
Reason For Study: Calf pain Procedure LEFT Exam performed in department. GSV is normal. A preliminary report was called and/or faxed CFV is compressible, spontaneous, phasic, to [facility]. competent, and demonstrates normal augmentation. FV is compressible, spontaneous, phasic, competent and demonstrates normal augmentation. POP V is compressible, spontaneous, phasic, competent and demonstrates normal augmentation. T/P Trunk is compressible. PTV is compressible. LT PerV is compressible. Interpretation Summary Deep veins of the left lower extremity are patent and compressible segmentally. There is no evidence of left lower extremity deep vein thrombosis. Valvular competence appears intact within the proximal deep venous system on the left . The left great saphenous vein appears patent and compressible segmentally. Ordering Physician: Malu Angelo Referring Physician: Tarah Dubon Performed By: Charity Wren RVT
--- NOTE | 2020-03-21 15:31 | PN.PCM_ITS ---
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 History of Wound: Surgery 03/14/20 - Surgical preparation left medial leg with incision and drainage and excisional debridement nonhealing fasciotomy MRSA i nfected ulcers (29.75 cm2) and placement Amniofill placental connective tissue powder, 1000 mg. Surgical culture 03/14/20 positive for MRSA, Strepanginosus, Proprionibacterium acnes, Actinomyces neuii, Anaerobic cocci and Prevotella bivia. She was discharged from the hospital on Doxycycline and Augmentin. Will stop the Augmentin and start Clindamycin 450 mg TID. She states she has not been taking the Doxycycline, instructed her to take that with the Clindamycin and a probiotic. Wound Care: Wound VAC at 100 mmHg while wound veil in place. Surgery 01/01/20 - Surgical preparation left medial leg with excisional debridement nonhealing fasciotomy MRSA ulcer and 18 cm complex secondary wound closure and placement of AmnioFill placental connective tissue powder, (500 mg). Wound culture from 02/22/20 showed Corynebacterium amycolatum, Kocuria kristinae, and Anaerobic cocci. She was placed on Augmentin and has finished them. Operative culture - negative. She was being treated for preop (12/07/19) MRSA with Doxycycline. She was treated perioperatively with Vancomycin and discharged on Doxycycline. She completed the Doxycycline. Prealbumin from 01/02/20 was 25.6. Encourage nutritional supplementation with protein to help the healing process. Today she denies fever. Her appetite is good. Progress of Wound: Recent surgery on 03/14/20. - Physical Exam Vital Signs Temp Pulse Resp BP Pulse Ox 96.7 F L 103 H 16 131/89 H 96 03/21/20 10:05 03/21/20 10:05 03/21/20 10:05 03/21/20 10:05 02/20/20 00:22 General: Alert, Oriented x3, Cooperative HEENT: Atraumatic Oral: Moist Mucosa Lungs: Normal air movement Cardiovascular: Regular rate Abdomen: Obese Extremities: Capillary Refill Less than 3 Seconds, Edema - Bilateral lower extremities. Left calf has more edema than the right., Tenderness - She is complaining of left calf pain and tenderness, especially with standing and walking. Skin: Ulcer/ Wound - Left medial leg ulcer with strong odor after wound VAC removed. Removed the sutured wound veil to visualize the wound bed which was pink. Wound Measurements and Assessment WC - Nurse 1 - General Ulcer Measurement Start: 02/22/20 08:20 Freq: Status: Active Protocol: Activity Type Activity Date Activity User E-Sign Co-Sign Detail Recorded Client Recorded Date Recorded By Document 03/21/20 10:05 [facility] [id number] 03/21/20 10:12 [facility] 03/21/20 10:05 Wound Center Nurse 1 [Ulcer Assessment] #1 LLL medial, post op incision -Combined with other wound No -Current Size (cm) - Length 0.1 -Current Size (cm) - Width 0.1 -Current Size (cm) - Depth 0.1 -Total Square Cm 0.01 -Date of Last Picture (Recall this 03/21/20 field) -Photo Taken Yes -Epithelialization None Present -Texture (Kisha-wound Skin Appearance) Assessed, Excoriation, Scarring -Moisture (Kisha-wound Skin Appearance Assessed, ) Maceration -Color (Kisha-wound Skin Appearance) Assessed, Erythema,Palor -Temperature (Kisha-wound Skin No Abnormality Appearance) (Pt Warm) -Tenderness on Palpation (Kisha-wound Yes Skin Appearance) -Ulcer Cleansing soapy water -Foul Odor after Cleansing No -Anesthetic Used 4% Lidocaine Solution [Edema Assessment] -Lower Limb Edema Present Yes -Left Calf (cm) 45 -Left Ankle (cm) 23.6 WC - Nurse 2 - General Ulcer CM Notes Start: 03/07/20 09:48 Freq: Status: Active Protocol: Activity Type Activity Date Activity User E-Sign Co-Sign Detail Recorded Client Recorded Date Recorded By Document 03/21/20 10:21 [id number] 03/21/20 10:22 03/21/20 10:21 Wound Center Nurse 2 [Procedure/Treatment] #1 LLL medial, post op incision -Correct Patient No -Correct Side, Site, Position No -Correct Procedure No -Procedure Performed No -Tunneling No -Undermining/Tunneling No -Circular Undermining No -Ulcer Cleansing Rinsed/ Irrigated with Saline -Foul Odor after Cleansing No -Bioengineered Tissue No [See Physician Procedure note for Specifics] Pain Scale: 0-10 Numeric [Pain] -Is Patient Pain Free? Yes - Nurse 3 - General Ulcer D/C NN Start: 03/07/20 23:14 Freq: Status: Active Protocol: Activity Type Activity Date Activity User E-Sign Co-Sign Detail Recorded Client Recorded Date Recorded By Document 03/21/20 11:17 [facility] [id number] 03/21/20 11:18 [facility] 03/21/20 11:17 Wound Care Nurse 3 [Wound Dressing] #1 LLL medial, post op incision -Ulcer Cleansing Rinsed/ Irrigated with Saline -Foul Odor after Cleansing No -Negative Pressure Wound Therapy Continue -Setting (mmHg) 100 -Negative Pressure is Continuous -NPWT Application Charge ($) NPWT </= 50 sq cm [Compression Applied] Left -Compression Wrap Clifford Wrap [Post Procedure Tolerated] -Treatment Response Procedure Tolerated Well Pain Scale: 0-10 Numeric [Pain] -Is Patient Pain Free? Yes - Visit Discharge [Visit Discharge Information] -Discharge Condition Stable -Ambulatory Status Ambulatory -Transportation Private Auto [Facility Notification] -Facility Type Home Health Musculoskeletal: Tenderness Neurological: Cranial nerves II-XII grossly intact Psych/Mental Status: Normal Affect, Appropriate Debridement Note Post-Debridement Measurements/Treatment - Nurse 2 - General Ulcer CM Notes Start: 03/07/20 09:48 Freq: Status: Active Protocol: Activity Type Activity Date Activity User E-Sign Co-Sign Detail Recorded Client Recorded Date Recorded By Document 03/07/20 10:25 PL [id number] 03/07/20 10:27 PL Document 03/21/20 10:21 [id number] 03/21/20 10:22 03/07/20 03/21/20 10:25 10:21 Wound Center Nurse 2 #1 LLL medial, post op incision -Time 08:38 -Correct Patient Yes No -Correct Side, Site, Position Yes No -Correct Procedure Yes No -Procedure Performed Yes No -Type of Procedure Debridement -Clinical Debridement Subcutaneous -Tissue Removed Subcutaneous -Post Debridement (cm) - Length 4.6 -Post Debridement (cm) - Width 1.1 -Post Debridement (cm) - Depth 2.2 -Total Square (Post) (cm) 5.06 -Area of Debridement (cm) - Length 4.6 -Area of Debridement (cm) - Width 1.1 -Total Square (Area) (cm) 5.06 -Tunneling No -Undermining/Tunneling No -Circular Undermining No -Wound/Ulcer Outcome Not Healed -Ulcer Cleansing Rinsed/ Rinsed/ Irrigated with Irrigated with Saline Saline -Foul Odor after Cleansing No No -Bioengineered Tissue No No -Bleeding Controlled with Pressure -Treatment Response Procedure Tolerated Well -Debridement - Subq, 1st 20sq cm Yes Pain Scale: 0-10 Numeric Is Patient Pain Free? Yes Yes - Nurse 3 - General Ulcer D/C NN Start: 03/07/20 23:14 Freq: Status: Active Protocol: Activity Type Activity Date Activity User E-Sign Co-Sign Detail Recorded Client Recorded Date Recorded By Document 03/21/20 11:17 [facility] [id number] 03/21/20 11:18 [facility] 03/21/20 11:17 Wound Care Nurse 3 #1 LLL medial, post op incision -Ulcer Cleansing Rinsed/ Irrigated with Saline -Foul Odor after Cleansing No -Negative Pressure Wound Therapy Continue -Setting (mmHg) 100 -Negative Pressure is Continuous -NPWT Application Charge ($) NPWT </= 50 sq cm Left -Compression Wrap Clifford Wrap Treatment Response Procedure Tolerated Well Pain Scale: 0-10 Numeric Is Patient Pain Free? Yes - Visit Discharge Discharge Condition Stable Ambulatory Status Ambulatory Transportation Private [facility] Facility Type Home Health No debridement was completed today Assessment/Plan Assessment: 1. Nonhealing fasciotomy ulcer left medial leg, s/p closure 01/01/20, with central ulcerations. 2. Hematoma with compartment syndrome left leg s/p fasciotomies. 3. History of compromised skin grafts. 4. MRSA. 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 6. Lupus. 7. Immunocompromised state due to high risk medication, Methotrexate, for Lupus, currently off Methotrexate. Plan: Surgery 03/14/20 - Surgical preparation left medial leg with incision and drainage and excisional debridement nonhealing fasciotomy MRSA infected ulcers (29.75 cm2) and placement Amniofill placental connective tissue powder, 1000 mg. Surgical culture 03/14/20 positive for MRSA, Strepanginosus, Proprionibacterium acnes, Actinomyces neuii, Anaerobic cocci and Prevotella bivia. She was discharged from the hospital on Doxycycline and Augmentin. Will stop the Augmentin and start Clindamycin 450 mg TID. She states she has not been taking the Doxycycline, instructed her to take that with the Clindamycin and a probiotic. Wound Care: Wound VAC at 100 mmHg while wound veil in place. Removed the surgical wound veil due to the amount of odor that she was having so the wound bed could be visualized, which it was pink. New wound veil placed and durabonded in place. Today she is complaining of left calf pain that it feels like when she had to have the faciotomy done last year. She states that her Coumadin levels have been subtherapeutic. Ordered a stat ultrasound which was negative for a blood clot. She states that she needs to notify her PCP of her Coumadin level. Prealbumin was 26.4 on 03/15/20. Encourage nutritional supplementation with protein to help the healing process. Keep left leg elevated when sitting. Minimize standing. Followup one week. [id number]: [id number] Global Visit
== END 2020-03-21 23:59 ==
LOC: CVS 13:00
PROVIDERS: Family Provider Family Medicine; PCP Family Medicine; Referring Provider Surgery; Visit Provider Internal Medicine
DX: T86.829 Unspecified complication of skin graft (allograft) (autograft) (principal); Y83.2 Surgical operation with anastomosis, bypass or graft as the cause of abnormal reaction of the patient, or of later complication, without mention of misadventure at the time of the procedure; Z79.01 Long term (current) use of anticoagulants; M32.9 Systemic lupus erythematosus, unspecified; L97.821 Non-pressure chronic ulcer of other part of left lower leg limited to breakdown of skin; R60.0 Localized edema; Z79.899 Other long term (current) drug therapy; Z86.718 Personal history of other venous thrombosis and embolism; Z86.14 Personal history of Methicillin resistant Staphylococcus aureus infection; L97.822 Non-pressure chronic ulcer of other part of left lower leg with fat layer exposed; M79.662 Pain in left lower leg
CPT/HCPCS: 11042; 11045; 29581; 87070; 87075; 87077; 87186; 87205; 93971; 97605; 99212; 99213; G0463

== ENCOUNTER 2020-03-22 23:20 | Inpatient (IN) | payer MEDICAID, SELFPAY ==
[2020-03-21 11:12] VITALS: BMI 53.1
[2020-03-22 23:21] VITALS: BP 153/94; PULSE 109; RESP 16; TEMP 37.5; O2SAT 97; BMI 52.2
--- NOTE | 2020-03-23 | ED.DCSUM_ITS ---
History of Present Illness Chief Complaint: Wound Informant: Patient Narrative: Patient presents the emergency department for the evaluation of left leg pain. Patient underwent surgical debridement for a nonhealing fasciotomy of the left medial lower leg on 03/14/2020. She was seen at the wound care clinic yesterday has been using a wound VAC and is currently on clindamycin and doxycycline. She states that she is having pain in her calf. Yesterday she was having the same pain and had a duplex ultrasound to rule out DVT was negative. She states she has pain at the ulcer site but more of her pain seems to be in her calf. She notes leg swelling. She denies any fevers but has been taking 2 Percocet and 1000 mg of Tylenol. Earlier in the day. Past Medical History - Allergies and Home Meds Allergies/Adverse Reactions: Allergies adhesive tape Adverse Reaction (Verified 03/22/20 23:23) Rash Primary Care Physician: Tarah Dubon DO [Primary Care Provider] - Surgical History: - - bilateral knee replacement Smoking Status: Never smoker - Family History Maternal Family History: Reports: Heart Disease Paternal Family History: Reports: - Review of Systems General: Denies: Chills, Fever, Sweats Eyes: Denies: Visual changes - bilaterally, Diplopia ENT: Denies: Rhinorrhea, Sore throat Cardiovascular: Denies: Chest pain, Palpitations Respiratory: Denies: Dyspnea, Cough, Dyspnea on exertion Gastrointestinal: Denies: Abdominal pain, Nausea, Vomiting, Diarrhea, Melena, Hematochezia Genitourinary: Denies: Dysuria, Hematuria, Frequency Musculoskeletal: Reports: Swelling, Extremity Pain. Denies: Back pain Skin: Reports: Wounds. Denies: Rash Neurological: Denies: Headache, Weakness, Numbness Physical Exam Vital Signs/Narrative: Vital Signs Temp Pulse Resp BP Pulse Ox 03/22/20 23:21 99.5 F H 109 H 16 153/94 H 97 Inital Vital Signs reviewed: Yes General: Well nourished, Well developed, No Acute Distress Head: Normocephalic, Atraumatic Eyes: Perrl, EOMI ENT: Moist mucous membranes, No rhinorrhea Neck: Supple, Nontender Cardiovascular: Regular rate, Regular rhythm, No murmurs Respiratory: No distress, CTA bilaterally, Chest nontender Abdomen: Soft, Nontender, Nondistended, Normal bowel sounds Back: Nontender, Normal Inspection Extremities: - - Patient's exam of the left leg demonstrates swelling of the lower extremity on the left. There is a large ulcer on the left medial leg. There is no erythema or lymphangitic streaking. Patient has good distal perfusion of her feet and toes. Strong dorsalis pedis pulse. The calf is soft. Skin: Normal color, No rash Neurological: Alert, Oriented x3, Cranial nerves II-XII grossly intact, Normal Strength, Normal Sensation Psychological: Normal affect, Normal Mood Diagnostic/Tx/Re-eval Laboratory Last Values WBC 9.4 K/mm3 (4.4-11.0) 03/22/20 23:40 RBC 4.23 M/mm3 (4.2-5.4) 03/22/20 23:40 Hgb 11.7 g/dL (12.0-15.0) L 03/22/20 23:40 Hct 38.6 % (37-47) 03/22/20 23:40 MCV 91.3 fL (81-99) 03/22/20 23:40 MCH 27.7 pg (27.0-32.0) 03/22/20 23:40 MCHC 30.3 g/dL (32-36) L 03/22/20 23:40 RDW Std Deviation 47.6 fl (35.1-43.9) H 03/22/20 23:40 RDW Coeff of Chepe 14.3 % (11.6-14.6) 03/22/20 23:40 Plt Count 227 K/mm3 (150-450) 03/22/20 23:40 MPV 10.8 fl (6.2-12.0) 03/22/20 23:40 Immature Gran % (Auto) 0.300 % (0.0-0.9) 03/22/20 23:40 Neut % (Auto) 55.8 % (47-70) 03/22/20 23:40 Lymph % (Auto) 32.5 % (19-41) 03/22/20 23:40 Evans % (Auto) 7.7 % (0-10) 03/22/20 23:40 Eos % (Auto) 3.1 % (0-5) 03/22/20 23:40 Baso % (Auto) 0.6 % (0-1) 03/22/20 23:40 Absolute Neuts (auto) 5.2 X10^3/uL (2.0-7.7) 03/22/20 23:40 Absolute Lymphs (auto) 3.04 X10^3/uL (0.83-4.51) 03/22/20 23:40 Nucleated RBC % 0 % (0-5) 03/22/20 23:40 PT 17.7 SECONDS (11.7-14.9) H 03/22/20 23:40 INR 1.5 03/22/20 23:40 APTT 34.9 Seconds (24.1-36.2) 03/22/20 23:40 Sodium 137 mmol/L (136-145) 03/22/20 23:40 Potassium 4.0 mmol/L (3.5-5.1) 03/22/20 23:40 Chloride 107 mmol/L (98-107) 03/22/20 23:40 Carbon Dioxide 26.0 mmol/L (21.0-32.0) 03/22/20 23:40 Anion Gap 4 (5-15) L 03/22/20 23:40 BUN 10 mg/dL (7-18) 03/22/20 23:40 Creatinine 0.83 mg/dL (0.55-1.02) 03/22/20 23:40 Estim Creat Clear Calc 76.75 ml/min 03/22/20 23:40 Est GFR (MDRD) Af Amer 94 mL/min (>60) 03/22/20 23:40 Est GFR (MDRD) Non-Af 78 mL/min (>60) 03/22/20 23:40 BUN/Creatinine Ratio 12.1 RATIO (10-20) 03/22/20 23:40 Glucose 105 mg/dL (74-106) 03/22/20 23:40 Lactic Acid 1.7 mmol/L (0.4-1.9) 03/22/20 23:40 Calcium 9.2 mg/dL (8.5-10.1) 03/22/20 23:40 Total Bilirubin 0.20 mg/dL (0.20-1.00) 03/22/20 23:40 AST 11 U/L (15-37) L 03/22/20 23:40 ALT 17 U/L (13-56) 03/22/20 23:40 Alkaline Phosphatase 102 U/L (45-117) 03/22/20 23:40 Total Creatine Kinase 62 U/L (26-192) 03/22/20 23:40 Total Protein 8.2 g/dL (6.4-8.2) 03/22/20 23:40 Albumin 3.0 g/dL (3.2-5.0) L 03/22/20 23:40 Globulin 5.2 g/dL (2.2-4.2) H 03/22/20 23:40 Albumin/Globulin Ratio 0.6 RATIO (0.9-2.4) L 03/22/20 23:40 - Medical Decision Making I do not see obvious signs of compartment syndrome. There is a foul odor coming from the wound itself but no significant cellulitic changes. I spoke with her surgeon there plan will be admission. Plan to pack the wound with saline soaked Kerlix after a another wound culture and give her vancomycin and Zosyn. ED Disposition - Plan for ED Patient: Disposition: Acute Care Hospital [facility] Diagnosis: MRSA (methicillin resistant Staphylococcus aureus), Open wound of left lower extremity, Left leg pain Referrals: Tarah Dubon DO [Primary Care Provider] -
[2020-03-23] MEDS: Morphine 4 MG/ML Syringe IV (00:04)
[2020-03-23] MEDS: Ondansetron 4 MG/2 ML Vial IV ×2 (00:04→13:05)
[2020-03-23 00:16] LABS: Absolute Lymphocyte Count 3.04 X10^3/uL (0.83-4.51); Absolute Neutrophil Count 5.2 X10^3/uL (2.0-7.7); Basophil# 0.06 X10^3/uL; Basophil% 0.6 % (0-1); Eosinophil# 0.29 X10^3/uL; Eosinophils% 3.1 % (0-5); Hematocrit 38.6 % (37-47); Hemoglobin 11.7 g/dL (12.0-15.0); Lymphocyte # 3.04 X10^3/ul (4.0); Lymphocyte % 32.5 % (19-41); Mean Corp Hgb Conc 30.3 g/dL (32-36); Mean Corpuscular Hgb 27.7 pg (27.0-32.0); Mean Corpuscular Volume 91.3 fL (81-99); Mean Platelet Vol. 10.8 fl (6.2-12.0); Monocyte# 0.72 X10^3/uL; Monocyte% 7.7 % (0-10); NRBC Flagged by Analyzer 0 % (0-5); Neutrophil # 5.22 X10^3/uL (2.7-7.7); Neutrophil % 55.8 % (47-70); Platelet Count 227 K/mm3 (150-450); RBC Distribution Width CV 14.3 % (11.6-14.6); RBC Distribution Width SD 47.6 fl (35.1-43.9); Red Blood Count 4.23 M/mm3 (4.2-5.4); White Blood Count 9.4 K/mm3 (4.4-11.0)
[2020-03-23 00:24] LABS: International Normalized Ratio 1.5; Prothrombin Time (Protime)PT. 17.7 SECONDS (11.7-14.9)
[2020-03-23 00:25] LABS: Partial Thromboplast Time 34.9 Seconds (24.1-36.2)
[2020-03-23 00:29] LABS: ALB/GLOB Ratio 0.6 RATIO (0.9-2.4); AST(SGOT) 11 U/L (15-37); Alanine Aminotransfer ALT/SGPT 17 U/L (13-56); Alkaline Phosphatase 102 U/L (45-117); Anion Gap 4 (5-15); BUN 10 mg/dL (7-18); BUN/Creat Ratio 12.1 RATIO (10-20); CPK Total, Creatine Kinase 62 U/L (26-192); Calcium,Total 9.2 mg/dL (8.5-10.1); Chloride 107 mmol/L (98-107); Creatinine, Serum 0.83 mg/dL (0.55-1.02); EST Glomerular Filtration Rate 78 mL/min (>60); Est Glom Filt Rate - Afr Amer 94 mL/min (>60); Estimated Creatinine Clearance 76.75 ml/min; Globulin 5.2 g/dL (2.2-4.2); Glucose 105 mg/dL (74-106); Protein, Total 8.2 g/dL (6.4-8.2); Sodium Level 137 mmol/L (136-145)
[2020-03-23 00:30] LABS: Lactic Acid 1.7 mmol/L (0.4-1.9)
[2020-03-23 01:32] VITALS: BP 115/75; PULSE 103; RESP 19; TEMP 36.5; O2SAT 92
[2020-03-23] MEDS: HYDROmorphone 1 MG/ML Syringe IV ×4 (01:39→11:18)
[2020-03-23 02:45] VITALS: BP 121/86; PULSE 97; RESP 18; TEMP 36.9; O2SAT 96
[2020-03-23 02:48] VITALS: BMI 54.0
[2020-03-23 03:03] VITALS: BMI 54.1
[2020-03-23] MEDS: 0.9% Saline Lock 10 ML Syringe IV ×5 (03:17→13:05)
--- NOTE | 2020-03-23 03:54 | PCM.RX.CS ---
Consult Pharmacy has been consulted to manage selected antiobiotic: Vancomycin Type of Consult: New start Labs: Sodium 137 mmol/L (136-145) 03/22/20 23:40 Potassium 4.0 mmol/L (3.5-5.1) 03/22/20 23:40 Chloride 107 mmol/L (98-107) 03/22/20 23:40 Carbon Dioxide 26.0 mmol/L (21.0-32.0) 03/22/20 23:40 Anion Gap 4 (5-15) L 03/22/20 23:40 BUN 10 mg/dL (7-18) 03/22/20 23:40 Creatinine 0.83 mg/dL (0.55-1.02) 03/22/20 23:40 Est GFR (MDRD) Af Amer 94 mL/min (>60) 03/22/20 23:40 Est GFR (MDRD) Non-Af 78 mL/min (>60) 03/22/20 23:40 BUN/Creatinine Ratio 12.1 RATIO (10-20) 03/22/20 23:40 Glucose 105 mg/dL (74-106) 03/22/20 23:40 Goal Trough: 10-15 mcg/mL Pharmacy Plan for Drug Dosing: Pharmacy Service will continue to monitor and adjust dosing as required. Medications Vancomycin HCl 1,750 mg/ (Sodium Chloride) 535 mls @ 250 mls/hr IV Q12H LENCHO Discontinued Medications Vancomycin HCl 2,000 mg/ (Sodium Chloride) 540 mls @ 250 mls/hr IV X1 ONE Stop: 03/23/20 02:54 Last Admin: 03/23/20 03:13 Dose: 250 mls/hr Documented by: Follow-Up Labs: Trough Vancomycin Labs to be done on [date and time ordered]: 03/24 @ 1964
[2020-03-23] MEDS: Lactated Ringers 1,000 ML 60 ML IV ×2 (04:07→21:35)
[2020-03-23 05:56] LABS: Hematocrit 37.3 % (37-47); Hemoglobin 11.1 g/dL (12.0-15.0); Mean Corp Hgb Conc 29.8 g/dL (32-36); Mean Corpuscular Hgb 27.7 pg (27.0-32.0); Platelet Count 357 K/mm3 (150-450); RBC Distribution Width CV 14.4 % (11.6-14.6); RBC Distribution Width SD 48.6 fl (35.1-43.9); Red Blood Count 4.01 M/mm3 (4.2-5.4); White Blood Count 8.5 K/mm3 (4.4-11.0)
[2020-03-23 06:09] LABS: International Normalized Ratio 1.6
[2020-03-23 06:20] LABS: Erythrocyte Sedimentation Rate 103 mm/hr (0-20)
[2020-03-23 06:38] LABS: ALB/GLOB Ratio 0.6 RATIO (0.9-2.4); AST(SGOT) 23 U/L (15-37); Alanine Aminotransfer ALT/SGPT 17 U/L (13-56); Albumin, Serum 2.7 g/dL (3.2-5.0); Alkaline Phosphatase 91 U/L (45-117); Anion Gap 3 (5-15); BUN 11 mg/dL (7-18); BUN/Creat Ratio 11.8 RATIO (10-20); Calcium,Total 8.5 mg/dL (8.5-10.1); Chloride 106 mmol/L (98-107); Creatinine, Serum 0.93 mg/dL (0.55-1.02); EST Glomerular Filtration Rate 68 mL/min (>60); Est Glom Filt Rate - Afr Amer 82 mL/min (>60); Globulin 4.8 g/dL (2.2-4.2); Glucose 93 mg/dL (74-106); Potassium 4.3 mmol/L (3.5-5.1); Protein, Total 7.5 g/dL (6.4-8.2); Sodium Level 138 mmol/L (136-145)
[2020-03-23] MEDS: DAKIN'S SOL HALF STRENGTH (=0.25%) 1 APPLIC TOPICAL ×2 (07:45→21:35)
--- NOTE | 2020-03-23 08:39 | NURSING ---
wound photo: left medial lower leg
[2020-03-23 09:40] LABS: M R Staph aureus DNA By PCR POSITIVE (Negative); Probe Check PASS; Staph aureus DNA By PCR POSITIVE (Negative)
[2020-03-23] MEDS: HYDROmorphone 2 MG TABLET PO (09:54)
[2020-03-23 10:09] VITALS: BP 115/63; PULSE 105; RESP 20; TEMP 36.7; O2SAT 93
--- NOTE | 2020-03-23 10:30 | PCM.HP.BLA ---
History and Physical Date of Admission: 03/23/20 History and Physical Date of Admission: 03/14/20 HISTORY OF PRESENT ILLNESS The patient is a 49 year old F who developed a compartment syndrome in 12/07 and she was taken urgently to the OR on 12/13/[address] Sawant for fasciotomies. Medial and lateral leg wounds were created. She underwent wound care with the VAC and the Silver dressing changes. She was taken back to surgery on 04/10/19 where she underwent surgical preparation left medial leg with excisional debridement nonhealing fasciotomy ulcer and placement of AmnioFill placental connective tissue powder and STSG reconstruction from left flank (48 cm2) and surgical preparation left lateral leg with excisional debridement nonhealing fasciotomy ulcer and placement of AmnioFill placental connective tissue powder and STSG reconstruction from left flank (20 cm2). She developed some compromise to the skin grafts and underwent HBO treatments. Since then the lateral wound has healed. However, she still had a nonhealing ulcer left medial leg. Recent culture showed MRSA and she was started on Doxycycline. She went back to surgery on 01/01/20 where she underwent surgical preparation left medial leg with excisional debridement nonhealing fasciotomy MRSA ulcer and 18 cm complex secondary wound closure and placement of AmnioFill placental connective tissue powder, (500 mg). Initial healing was satisfactory but then developed some central ulcerations with persistent drainage. Wound culture showed Anaerobic cocci. She was placed on Augmentin and finished them. Further surgery was recommended to the patient as the persistent drainage will prevent adequate wound healing. After incision and drainage and excisional debridement of these nonhealing infected ulcers, will leave the wound open and proceed with postop wound care with the VAC. When adequately healing has occurred, can proceed with delayed closure with skin grafting. 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 PAST SURGICAL HISTORY left lower extremity emergent fasciotomies - 12/13/18 bilateral knee replacement pericardial window surgical preparation left medial leg with excisional debridement nonhealing fasciotomy ulcer and placement of AmnioFill placental connective tissue powder and STSG reconstruction from left flank (48 cm2) and surgical preparation left lateral leg with excisional debridement nonhealing fasciotomy ulcer and placement of AmnioFill placental connective tissue powder and STSG reconstruction from left flank (20 cm2) - 04/10/19 Surgical preparation left medial leg with excisional debridement nonhealing fasciotomy MRSA ulcer and 18 cm complex secondary wound closure and placement of AmnioFill placental connective tissue powder, (500 mg) - 01/01/20 ALLERGIES adhesive tape MEDICATIONS Abilify. Bupropion. Iron sulfate. Folic acid. Toprol. Omeprazole. Percocet. Prednisone. Ropinirole. Trazodone. Effexor. Coumadin. SOCIAL HISTORY Lives: With Family Smoking Status: Never smoker Alcohol: None FAMILY HISTORY Maternal - No pertinent history Paternal - No pertinent history REVIEW OF SYSTEMS Constitutional: Denies: Chills, Fever, Weight Change. Eyes: Denies: Blurred vision. HEENT: Denies: Head Aches, Sinus Congestion, Sinus Drainage. Cardiovascular: Denies: Chest Pain, Palpitations. Respiratory: Denies: Cough, Shortness of Breath, Shortness of breath at rest, Sputum production. Gastrointestinal: Denies: Abdominal Pain, Nausea, Vomiting. Genitourinary: Denies: Dysuria. Musculoskeletal: Reports: Leg Pain, Muscle pain. Denies: Arm Pain, Back Pain, Foot Pain, Hand Pain, Joint Pain, Joint swelling. Skin: Denies: Rash, Wounds. Neurological: Denies: Numbness, Tingling, Focal weakness. Psychiatric: Denies: Anxiety, Depression, Homicidal Ideations, Suicidal Ideations. Hematologic/ Lymphatic: Denies: Easy Bruising, Easy Bleeding PHYSICAL EXAMINATION General: Alert, Oriented x3. HEENT: PERRLA, EOMI. Oral: Moist Mucosa Neck: Supple, Nontender. Lungs: Clear to auscultation. Cardiovascular: Regular Rhythm, Tachycardic Abdomen: Soft, Non-Distended. Skin: Nonhealing fasciotomy ulcer present left medial leg. Mild swelling present. Ulcer is clean with granulation tissue. Medial leg ulcer measures 6 x 1.6 x 0.4 cm. The length of the superior and inferior scarring with the central ulcer is 16 cm. Lymphatic: No Cervical, Supraclavicular, or Inguinal Adenopathy Neurological: Cranial nerves II-XII grossly intact Psych/Mental Status: Normal Affect, Appropriate, Alert and oriented to time, place, person, mood and affect ASSESSMENT 1. Nonhealing fasciotomy MRSA ulcer left medial leg., s/p closure 01/01/20 with central ulcerations. 2. Hematoma with compartment syndrome left leg s/p fasciotomies. 3. History of compromised skin grafts. 4. MRSA. 5. penitentiary use of anticoagulation. 6. Lupus. 7. Immunocompromised state due to high risk medication, Methotrexate, for Lupus, currently off Methotrexate. PLAN She has three central ulcerations that communicate under the skin. A lot of drainage is noted. Discussed with the patient that the ulcerations will never heal with this much drainage and edema present. Continue Silver dressing changes daily followed by Spandigrip and MENDEZ wrap for compression. She is complaining of burning pain down her left ankle and foot. She states it is waking her up at night because of the pain. She was placed on Neurontin. Completed Doxycycline for preop (12/07/19) MRSA. The operative culture was negative. She was treated with Vancomycin perioperatively and discharged on Doxycycline. After the central ulcerations developed, a wound culture on 02/22/20 was done which showed Anaerobic cocci. She was placed on Augmentin and finished them. Prealbumin was 25.3 on 01/02/20. Encourage nutritional supplementation with protein to help the healing process. Keep left leg elevated when sitting. Minimize standing. She is scheduled for surgery next Saturday03/14/20 for surgical preparation left medial leg with incision and drainage and excisional debridement nonhealing infected ulcers. Surgery will be done under general anesthesia with a surgical observation overnight stay in the hospital. Will leave the wound open and proceed with wound care with the VAC. When stable, can then proceed with delayed closure with skin grafting. Tissue that is debrided will be sent to Pathology for analysis and to Microbiology for culture. A positive culture will necessitate antibiotic therapy. Patient was informed of the risks and complications of the procedure including alternatives to surgery. These were discussed with her personally. She voices understanding and wishes to proceed. We discussed the current risks associated with COVID-19. While it is understood that there is a community spread of COVID-19, the risk of garret COVID-19 while at [facility] ([facility]) is very low; however, the risk cannot be completely mitigated because of the community spread of the disease. We discussed in detail the risk of exposure to and/or potential harm posed by the COVID-19 virus with having a surgery/procedure at this time versus the risk of delaying the surgery/procedure. It is not possible to know either the risk of delaying the surgery or procedure or chance of getting an infection with perfect accuracy, but a joint decision was made to proceed at this time with the scheduled surgery/procedure as indicated on the consent form. Patient was notified that we will need to comply with any screening or testing WC wishes to perform or that surgery may be delayed for any positive results. Discussed with the patient that I was tested for COVID-19 on 01/21/20 which was negative and on 02/04/20 which was negative and on 02/18/20 which was negative and on 03/03/20 which was negative. My testing regimen at this time is to be COVID-19 tested every 2 weeks or so. Procedure Criteria Procedure Type: Elective COVID Risk Discussion: The surgeon/proceduralist and patient have discussed in detail the risk of exposure to and/or potential harm posed by the COVID-19 virus with having a surgery/procedure at this time versus the risk of delaying the surgery/procedure. It is not possible to know either the risk of delaying the surgery or procedure or chance of getting an infection with perfect accuracy, but a joint decision was made between the patient and the surgeon/proceduralist to proceed at this time with the scheduled surgery/procedure as indicated on the consent form.
--- NOTE | 2020-03-23 10:34 | NURSING ---
Dr Kent aware wound culture positive for MRSA.
--- NOTE | 2020-03-23 11:24 | CT_ITS ---
STUDY: CT SCAN LOWER EXTREMITY LEFT REASON FOR EXAM: Female, 49 years old. PT STATED INCREASING PAIN IN LOWER LEG, SX X 1 WEEK AGO FOR INFECTION, HX COMPARTMENTAL SYNDROME RADIATION DOSAGE (If Supplied By Facility): CTDIvol = ( 15.47 ) mGy, DLP = ( 836.28 ) mGycm. Individualized dose optimization techniques were used for this CT.? TECHNIQUE: Multiple axial tomographic images were obtained without intravenous contrast menstruation. Coronal and sagittal reconstructions obtained as well. COMPARISON: Comparison is made with prior examination dated 12/13/2018. FINDINGS: The patient is status post total knee replacement. Focal soft tissue changes in the subcutaneous tissue with overlying skin deformity in the medial proximal left leg. There is evidence of a 6.6 cm x 3.6 cm x 1.6 cm tissue defect involving the skin and subcutaneous tissues in the medial mid portion of the left leg. There is evidence of a postoperative changes at that site. There is evidence of overlying skin thickening and edematous changes in the subcutaneous fat in the lower medial aspect of the leg extending into the region of the ankle. CT/Extremity Lower without Contra IMPRESSION: Postoperative changes along the medial aspect of the mid leg with a tissue defect. The previously seen fluid collection has been resolved. Electronically Signed: Yan Clement, at 15:46 EDT , Service support ,
--- NOTE | 2020-03-23 11:29 | CASEMGMT ---
RN CM Note: attempted to see patient for assessment. Pt is having PICC line placed. Claudio GILBERTN RN ACM
--- NOTE | 2020-03-23 14:06 | CASEMGMT ---
RN CM Assessment Note Intro role of CM to patient in room. Patient appears to be painful, but states she is able to participate in assessment. RN CM offered to come back, but she declined this. Demographics reviewed. Patient lives with her mother in one story home with 2 steps into home. She states she is ambulatory, but is not to be on her feet long. She states she does own personal care, but family will assist with dressing, meals, transportation and diversity intern. -discussed resuming HHC and patient is agreeable to continue with N -discussed possible IV antibiotics and pt is agreeable to any [facility] for this. Pt states her mother would be willing to learn how to assist with IV antibx if needed. Presentation: worsening leg wound. Diagnosis: Non healing fasciotimy MRSA infected ulcer, L leg PCP: Dr. Tarah Dubon Specialists: Dr. Kent Insurance: [facility] Preferred Pharmacy: [facility] Prescription Benefit: yes LNOK: MotherJasmin Tranportation: family DME: walker, cane, shower seat, raised toilet seat HHC: [facility]- [facility]. Call to N, spoke with Brandee. Patient is active, they can resume care on dc and would be able to accommodate IV antibiotics if needed. If pt is dc'd Saturday or Saturday, they would have a nurse see patient on Saturday, and if wound vac change is needed Saturday, they would return to do this. [facility] PH: FX: Patient DC Goals: Home on discharge DC Plan: Anticipate Home with C. Will follow for any further dc needs and if IV antibiotics would be needed. CM available for discharge planning coordination. Contact CM for any concerns/needs that may arise. Claudio GILBERTN RN ACM
[2020-03-23] MEDS: SUMAtriptan 6 MG/0.5 ML Vial SC (15:08)
[2020-03-23 15:14] VITALS: BP 131/95; PULSE 106; RESP 20; TEMP 36.6; O2SAT 94
[2020-03-23 21:35] VITALS: BP 113/56; PULSE 98; RESP 16; TEMP 36.8; O2SAT 98
[2020-03-23] MEDS: Docusate Sodium 100 MG Capsule PO (23:36)
[2020-03-23] MEDS: traZODone 50 MG Tablet 150 MG PO (23:36)
[2020-03-23] MEDS: Famotidine 20 MG Tablet PO (23:36)
[2020-03-23] MEDS: Pantoprazole Sodium 40 MG Tablet PO (23:36)
[2020-03-23] MEDS: Pramipexole Di-HCl 0.25 MG Tablet PO (23:36)
[2020-03-23] MEDS: Gabapentin 300 MG Capsule PO (23:37)
[2020-03-24] MEDS: Ondansetron 4 MG/2 ML Vial IV (03:04)
[2020-03-24] MEDS: 0.9% Saline Lock 10 ML Syringe IV (03:05)
[2020-03-24 03:15] VITALS: BP 113/60; PULSE 90; RESP 16; TEMP 37; O2SAT 93
[2020-03-24] MEDS: Pramipexole Di-HCl 0.25 MG Tablet PO ×3 (05:51→23:03)
--- NOTE | 2020-03-24 08:33 | NS ---
Called by ZENON Macdonald- pt upset with calorie controlled diet. Will change diet to regular and nutrition education will be provided. See RDN follow-up note for further details. Christina Peoples MS, RDN, LD
[2020-03-24] MEDS: HYDROmorphone 2 MG TABLET PO ×3 (08:40→20:27)
[2020-03-24 08:48] VITALS: PULSE 112
[2020-03-24] MEDS: Folic Acid 1 MG Tablet PO (08:48)
[2020-03-24] MEDS: predniSONE 1 MG Tablet 8 MG PO (08:48)
[2020-03-24] MEDS: Metoprolol(XL)Succ 50 MG Tablet PO (08:48)
[2020-03-24] MEDS: buPROPion (XL) 300 MG TABLET.XL PO (08:48)
[2020-03-24] MEDS: Gabapentin 300 MG Capsule PO ×2 (08:49→23:03)
[2020-03-24] MEDS: ARIPiprazole 5 MG Tablet PO (08:49)
[2020-03-24] MEDS: Venlafaxine XR 75 MG Capsule 225 MG PO (08:49)
[2020-03-24] MEDS: Pantoprazole Sodium 40 MG Tablet PO ×2 (08:49→23:03)
[2020-03-24] MEDS: Docusate Sodium 100 MG Capsule PO ×2 (08:49→23:03)
[2020-03-24 08:51] LABS: Hematocrit 35.5 % (37-47); Mean Corpuscular Hgb 28.7 pg (27.0-32.0); Mean Corpuscular Volume 92.7 fL (81-99); Mean Platelet Vol. 9.1 fl (6.2-12.0); Platelet Count 315 K/mm3 (150-450); RBC Distribution Width CV 14.6 % (11.6-14.6); RBC Distribution Width SD 49.1 fl (35.1-43.9); Red Blood Count 3.83 M/mm3 (4.2-5.4); White Blood Count 9.6 K/mm3 (4.4-11.0)
[2020-03-24] MEDS: DAKIN'S SOL HALF STRENGTH (=0.25%) 1 APPLIC TOPICAL ×2 (08:53→23:12)
[2020-03-24 08:54] VITALS: BP 116/46; PULSE 112; RESP 16; TEMP 36.6; O2SAT 94
[2020-03-24 08:58] LABS: International Normalized Ratio 1.5; Prothrombin Time (Protime)PT. 17.3 SECONDS (11.7-14.9)
[2020-03-24 09:09] LABS: Anion Gap 5 (5-15); BUN 13 mg/dL (7-18); BUN/Creat Ratio 11.6 RATIO (10-20); Calcium,Total 8.6 mg/dL (8.5-10.1); Chloride 106 mmol/L (98-107); Creatinine, Serum 1.12 mg/dL (0.55-1.02); EST Glomerular Filtration Rate 55 mL/min (>60); Est Glom Filt Rate - Afr Amer 66 mL/min (>60); Estimated Creatinine Clearance 56.88 ml/min; Glucose 95 mg/dL (74-106); Potassium 3.9 mmol/L (3.5-5.1); Sodium Level 139 mmol/L (136-145)
--- NOTE | 2020-03-24 11:36 | PCM.PN.SRG ---
Patient Problems: Active and Suspected Problems Left leg pain (Acute) MRSA (methicillin resistant Staphylococcus aureus) (Acute) Open wound of left lower extremity (Acute) fasciotomy wounds left medial leg and left lateral leg Subjective: Post op day #10. Resting comfortably in bed. - Physical Exam Vitals/I&O's: Vital Signs Temp Pulse Resp BP Pulse Ox 98 F 112 H 16 116/46 L 94 03/24/20 08:54 03/24/20 08:54 03/24/20 08:54 03/24/20 08:54 03/24/20 08:54 Oxygen Flow Rate (L/min) 2 Oxygen Delivery Method Room Air Weight: 334 lb 14.115 oz Body Mass Index (BMI) 54.0 Finger Stick Blood Glucose 115 Intake and Output for Last 24 Hours 03/22/20 03/23/20 03/24/20 23:59 23:59 23:59 Intake Total 2992.25 / 2992.25 1028.25 / 1028.25 Output Total 650 / 650 Balance 2342.25 / 2342.25 1028.25 / 1028.25 General: Alert, Oriented x3, Cooperative HEENT: Atraumatic Oral: Moist Mucosa Lungs: Normal air movement Cardiovascular: Regular rate Abdomen: Obese Extremities: Capillary Refill Less than 3 Seconds, Edema, Peripheral Pulses Normal Skin: Ulcer/ Wound - Left medial leg ulcer is improving with Dakin's solution. The center is pink with less biofilm. Periwound redness is slowly improving. Musculoskeletal: No Tenderness to Palpation of Joints or Extremities Neurological: Cranial nerves II-XII grossly intact Psych/Mental Status: Normal Affect, Appropriate Microbiology Past 72 Hours 03/23/20 00:50 Wound - Leg, Left Gram Stain - Final 03/23/20 00:50 Wound - Leg, Left Wound Culture - Preliminary Staphylococcus aureus Laboratory Results 03/24/20 08:40: WBC 9.6, RBC 3.83 L, Hgb 11.0 L, Hct 35.5 L, MCV 92.7, MCH 28.7, MCHC 31.0 L, RDW Std Deviation 49.1 H, RDW Coeff of Chepe 14.6, Plt Count 315, MPV 9.1 03/24/20 08:40: PT 17.3 H, INR 1.5 03/24/20 08:40: Sodium 139, Potassium 3.9, Chloride 106, Carbon Dioxide 28.0, Anion Gap 5, BUN 13, Creatinine 1.12 H, Estim Creat Clear Calc 56.88, Est GFR (MDRD) Af Amer 66, Est GFR (MDRD) Non-Af 55 L, BUN/Creatinine Ratio 11.6, Glucose 95, Calcium 8.6 Current Medications Al Hydroxide/Mg Hydroxide (Mylanta Ii) 30 ml PO Q6H PRN PRN PRN Reason: INDIGESTION Albuterol Sulfate (Ventolin Aerosols) 2.5 mg INHALATION Q4H PRN PRN PRN Reason: WHEEZING Aripiprazole (Abilify) 5 mg PO DAILY [facility] Last Admin: 03/24/20 08:49 Dose: 5 mg Documented by: Benzonatate (Tessalon Perle) 200 mg PO TID PRN PRN PRN Reason: COUGH Bupropion HCl (Wellbutrin Xl) 300 mg PO DAILY [facility] Last Admin: 03/24/20 08:48 Dose: 300 mg Documented by: Buspirone HCl (Buspar) 10 mg PO BID PRN PRN PRN Reason: ANXIETY Diazepam (Valium) 5 mg PO 4X/DAY PRN PRN PRN Reason: SPASMS Docusate Sodium (Colace) 100 mg PO BID [facility] Last Admin: 03/24/20 08:49 Dose: 100 mg Documented by: Famotidine (Pepcid) 20 mg PO QHS [facility] Last Admin: 03/23/20 23:36 Dose: 20 mg Documented by: Ferrous Sulfate (Ferrous Sulfate) 325 mg PO DAILY@1200 [facility] Last Admin: 03/24/20 08:48 Dose: 1 mg Documented by: Gabapentin (Neurontin) 300 mg PO BID [facility] Last Admin: 03/24/20 08:49 Dose: 300 mg Documented by: Hydromorphone HCl (Dilaudid Inj) 1 mg IV .Q3 HOURS PRN PRN PRN Reason: Pain Score 6-10/10 Last Admin: 03/23/20 11:18 Dose: 1 mg Documented by: Hydromorphone HCl (Dilaudid Tablet) 2 mg PO Q3H PRN PRN PRN Reason: Pain Score 4-5/10 Last Admin: 03/24/20 08:40 Dose: 2 mg Documented by: Lactated Ringer's () 1,000 mls @ 60 mls/hr IV .[id number] [facility] Last Infusion: 03/24/20 05:13 Dose: 60 mls/hr Documented by: Vancomycin IV Pharmacy to Dose (1 ea/ Sodium Chloride) 500 mls @ 250 mls/hr IV X1 PRN; Protocol PRN Reason: Rx to Dose Piperacillin Sod/Tazobactam (Sod 3.375 gm/ Sodium Chloride) 50 mls @ 12.5 mls/hr IV Q8 [facility] Last Infusion: 03/24/20 09:59 Dose: Infused Documented by: Sodium Chloride () 250 mls @ 15 mls/hr IV .[id number] PRN PRN Reason: Saline Flush Last Infusion: 03/24/20 05:51 Dose: 0 mls/hr Documented by: Sodium Chloride () 250 mls @ 15 mls/hr IV .[id number] PRN PRN Reason: Additional IVPB Infusion Vancomycin HCl 1,750 mg/ (Sodium Chloride) 535 mls @ 250 mls/hr IV Q12H [facility] Last Infusion: 03/24/20 05:13 Dose: Infused Documented by: Lactobacillus Acidophilus (Acidophilus) 1 tablet PO BID [facility] Last Admin: 03/24/20 08:48 Dose: 1 tablet Documented by: Metoprolol Succinate (Toprol Xl (Beta Christin)) 50 mg PO DAILY [facility] Last Admin: 03/24/20 08:48 Dose: 50 mg Documented by: Ondansetron HCl (Zofran) 4 mg IV Q6H PRN PRN PRN Reason: NAUSEA Last Admin: 03/24/20 03:04 Dose: 4 mg Documented by: Pantoprazole Sodium (Protonix) 40 mg PO BID [facility] Last Admin: 03/24/20 08:49 Dose: 40 mg Documented by: Pramipexole Dihydrochloride (Mirapex) 0.25 mg PO TID [facility] Last Admin: 03/24/20 05:51 Dose: 0.25 mg Documented by: Prednisone () 8 mg PO DAILYCM [facility] Last Admin: 03/24/20 08:48 Dose: 8 mg Documented by: Promethazine HCl (Phenergan Tablet) 25 mg PO Q4H PRN PRN PRN Reason: NAUSEA/VOMITING Sodium Chloride () 10 - 40 ml IV UD PRN PRN Reason: SALINE FLUSH Last Admin: 03/24/20 03:05 Dose: 10 ml Documented by: Sodium Hypochlorite (Dakins Solution 0.25% (1/2 Strength)) 1 applic TOPICAL BID [facility]; Protocol Last Admin: 03/24/20 08:53 Dose: 1 applicatio Documented by: Trazodone HCl (Desyrel) 150 mg PO QHS [facility] Last Admin: 03/23/20 23:36 Dose: 150 mg Documented by: Venlafaxine HCl (Effexor Xr) 225 mg PO DAILY [facility] Last Admin: 03/24/20 08:49 Dose: 225 mg Documented by: Warfarin Sodium (Jantoven) 5 mg PO DAILY@1700 [facility] Medical Necessity - Tobacco Use Smoking Status: Never smoker Assessment/Plan All Active Problems Left leg pain (Acute) MRSA (methicillin resistant Staphylococcus aureus) (Acute) Sinus tachycardia (Acute) Open wound of left lower extremity (Acute) Hematoma (Acute) Compartment syndrome of left lower extremity (Acute) ASSESSMENT 1. Nonhealing fasciotomy MRSA ulcer left medial leg., s/p closure 01/01/20 with central ulcerations., s/p I&D 03/14/20. 2. Hematoma with compartment syndrome left leg s/p fasciotomies. 3. History of compromised skin grafts. 4. MRSA. 5. halfway use of anticoagulation. 6. Lupus. 7. Immunocompromised state due to high risk medication, Methotrexate, for Lupus, currently off Methotrexate. [facility] with complaints of calf pain. Ultrasound was done which was negative for DVT. Wound care is daily Dakin's dressing changes which has helped with the odor and the biofilm. She is on IV antibiotics, Vancomycin and Zosyn. She will be discharged on IV antibiotics through a PICC line possibly later today. Her WBC was normal. MRSA Wound DNA by PCR was done which was positive. With the persistent pain in her left posterior leg, a CT scan was ordered to evaluate for a hematoma since she is on Coumadin. The CT was negative for hematoma. Her left leg is soft with no clinical evidence of compartment syndrome. [id number]: [id number] Global Visit
[2020-03-24] MEDS: Ferrous Sulfate 325 MG Tablet PO (11:47)
--- NOTE | 2020-03-24 11:47 | CASEMGMT ---
Addendum entered by Charity Davidson 03/24/20 16:11: ZENON ROMAN updated that discharge cancelled for today due to elevated trough. ZENON ROMAN called and updated [facility] of cancelled discharge. ZENON ROMAN will continue to follow this patient and plan for a safe discharge. Original Note: ZENON ROMAN updated that patient will need IV ATB at discharge. Script received for IV Vanco q 12 hrs at discharge. Current dosing is at 0300 and 1500. ZENON ROMAN called and updated [facility] and they would be able to do a start of care for tomorrow 03/25/20 at 9am. ZENON ROMAN updated Dr. Kent and he would like 3pm dose of Vanco to be giving at 1800 and then patient to discharge home. ZENON ROMAN updated charge and floor nurse of Vanco dosing time change. ZENON ROMAN in to updated patient, infusion companies reviewed and patient agreeable to [facility]. ZENON ROMAN faxed referral to [facility]. CM will continue to follow this patient and plan for a safe discharge.
[2020-03-24 11:49] VITALS: BP 129/80; PULSE 116; RESP 16; TEMP 36.8; O2SAT 98
[2020-03-24 15:04] VITALS: BP 113/40; PULSE 87; RESP 16; TEMP 36.1; O2SAT 94
[2020-03-24 15:32] LABS: Vancomycin, Trough Level 16.9 ug/mL (5.0-15.0)
--- NOTE | 2020-03-24 15:51 | PCM.RX.CS ---
Consult Pharmacy has been consulted to manage selected antiobiotic: Vancomycin Type of Consult: Follow-up Suspected Infection: Skin/Soft tissue Prior Doses of Antibiotics Received/Current Regimen: current regimen is 1750mg IV q12h Labs: Sodium 139 mmol/L (136-145) 03/24/20 08:40 Potassium 3.9 mmol/L (3.5-5.1) 03/24/20 08:40 Chloride 106 mmol/L (98-107) 03/24/20 08:40 Carbon Dioxide 28.0 mmol/L (21.0-32.0) 03/24/20 08:40 Anion Gap 5 (5-15) 03/24/20 08:40 BUN 13 mg/dL (7-18) 03/24/20 08:40 Creatinine 1.12 mg/dL (0.55-1.02) H 03/24/20 08:40 Est GFR (MDRD) Af Amer 66 mL/min (>60) 03/24/20 08:40 Est GFR (MDRD) Non-Af 55 mL/min (>60) L 03/24/20 08:40 BUN/Creatinine Ratio 11.6 RATIO (10-20) 03/24/20 08:40 Glucose 95 mg/dL (74-106) 03/24/20 08:40 Vancomycin Trough 16.9 ug/mL (5.0-15.0) H 03/24/20 14:36 Microbiology: Microbiology 03/23/20 00:50 Wound - Leg, Left Gram Stain - Final 03/23/20 00:50 Wound - Leg, Left Wound Culture - Preliminary Staphylococcus aureus Weight used for dosin.9 kg Estimated Creatinine Clearance: 92.4ml/min Goal Trough: 10-15 mcg/mL Pharmacy Plan for Drug Dosing: The vancomycin trough obtained this afternoon (drawn about 11.5 hours after the previous dose) came back as 16.9. This is above goal range of 10-15. Taking that into account as well as noting that the patient's SCr has gone up to 1.12 today, pharmacy will decrease the dose to 1250mg IV q12h which will start about 1800 tonight. Will order a trough to be checked again before the 4th new dose on 03/26/20. Pharmacy Service will continue to monitor and adjust dosing as required. Follow-Up Labs: Trough Vancomycin Labs to be done on [date and time ordered]: 03/26/20 05:30
[2020-03-24] MEDS: Lactated Ringers 1,000 ML 60 ML IV (16:32)
--- NOTE | 2020-03-24 17:08 | PCM.PN.BLA ---
Progress Note Patient's Vancomycin Trough level was elevated at 16.9. Her Creatinine has increased from 0.93 to 1.12. Will keep her until tomorrow and repeat the Trough level. Will recheck the Creatinine. If continues to increase, will consider other IV antibiotic for MRSA. STROKE Vital Signs/Narrative: Vital Signs Temp Pulse Resp BP Pulse Ox 03/24/20 15:04 97 F L 87 16 113/40 L 94
[2020-03-24 20:33] VITALS: BP 124/65; PULSE 94; RESP 16; TEMP 36.4; O2SAT 96
[2020-03-24] MEDS: traZODone 50 MG Tablet 150 MG PO (23:03)
[2020-03-24] MEDS: Famotidine 20 MG Tablet PO (23:03)
[2020-03-25] MEDS: HYDROmorphone 2 MG TABLET PO ×3 (00:06→15:51)
[2020-03-25] MEDS: diazePAM 5 MG Tablet PO (01:46)
[2020-03-25 01:53] VITALS: BP 144/88; PULSE 89; RESP 16; TEMP 36.6; O2SAT 94
[2020-03-25] MEDS: Pramipexole Di-HCl 0.25 MG Tablet PO ×2 (05:21→15:51)
[2020-03-25] MEDS: Folic Acid 1 MG Tablet PO (07:34)
[2020-03-25] MEDS: ARIPiprazole 5 MG Tablet PO (07:34)
[2020-03-25] MEDS: Docusate Sodium 100 MG Capsule PO (07:35)
[2020-03-25] MEDS: predniSONE 1 MG Tablet 8 MG PO (07:35)
[2020-03-25] MEDS: Pantoprazole Sodium 40 MG Tablet PO (07:35)
[2020-03-25] MEDS: Gabapentin 300 MG Capsule PO (07:35)
[2020-03-25] MEDS: Venlafaxine XR 75 MG Capsule 225 MG PO (07:35)
[2020-03-25] MEDS: buPROPion (XL) 300 MG TABLET.XL PO (07:35)
[2020-03-25 07:36] VITALS: PULSE 109
[2020-03-25] MEDS: Metoprolol(XL)Succ 50 MG Tablet PO (07:36)
[2020-03-25 07:50] LABS: Hemoglobin 10.4 g/dL (12.0-15.0); Mean Corp Hgb Conc 30.6 g/dL (32-36); Mean Corpuscular Hgb 28.3 pg (27.0-32.0); Mean Corpuscular Volume 92.6 fL (81-99); Mean Platelet Vol. 9.7 fl (6.2-12.0); Platelet Count 300 K/mm3 (150-450); RBC Distribution Width CV 14.5 % (11.6-14.6); RBC Distribution Width SD 49.7 fl (35.1-43.9); Red Blood Count 3.67 M/mm3 (4.2-5.4)
[2020-03-25 07:53] VITALS: BP 137/70; PULSE 108; RESP 16; TEMP 37.7; O2SAT 94
[2020-03-25 08:04] LABS: Anion Gap 7 (5-15); BUN 13 mg/dL (7-18); Calcium,Total 8.6 mg/dL (8.5-10.1); Chloride 105 mmol/L (98-107); Creatinine, Serum 1.08 mg/dL (0.55-1.02); EST Glomerular Filtration Rate 57 mL/min (>60); Est Glom Filt Rate - Afr Amer 69 mL/min (>60); Estimated Creatinine Clearance 58.99 ml/min; Glucose 94 mg/dL (74-106); Potassium 3.9 mmol/L (3.5-5.1); Sodium Level 140 mmol/L (136-145)
[2020-03-25] MEDS: Ondansetron 4 MG/2 ML Vial IV (08:27)
[2020-03-25] MEDS: DAKIN'S SOL HALF STRENGTH (=0.25%) 1 APPLIC TOPICAL (08:39)
[2020-03-25 09:45] LABS: International Normalized Ratio 1.4; Prothrombin Time (Protime)PT. 16.2 SECONDS (11.7-14.9)
[2020-03-25] MEDS: Lactated Ringers 1,000 ML 60 ML IV (11:28)
[2020-03-25] MEDS: Ferrous Sulfate 325 MG Tablet PO (11:28)
[2020-03-25 11:36] VITALS: BP 121/63; PULSE 116; RESP 16; TEMP 37.4; O2SAT 94
--- NOTE | 2020-03-25 12:39 | PCM.PN.SRG ---
Subjective: Patient feels tired this morning. Less pain in the left medial leg ulcer. Tolerating Dakin's dressing changes. She complains of a mild sore throat. Her temp this morning was 99.9. She had some diarrhea this morning. - Physical Exam Vitals/I&O's: Vital Signs Temp Pulse Resp BP Pulse Ox 99.3 F H 116 H 16 121/63 H 94 03/25/20 11:36 03/25/20 11:36 03/25/20 11:36 03/25/20 11:36 03/25/20 11:36 Oxygen Flow Rate (L/min) 2 Oxygen Delivery Method Room Air Weight: 334 lb 14.115 oz Body Mass Index (BMI) 54.0 Finger Stick Blood Glucose 115 Intake and Output for Last 24 Hours 03/23/20 03/24/20 03/25/20 23:59 23:59 23:59 Intake Total 2992.25 / 2992.25 3648.00 / 3648.00 1294.5 / 1294.5 Output Total 650 / 650 Balance 2342.25 / 2342.25 3648.00 / 3648.00 1294.5 / 1294.5 General: Alert, Oriented x3 HEENT: PERRLA, EOMI Oral: Moist Mucosa Neck: Supple Lungs: Clear to auscultation Cardiovascular: Regular rate, Regular Rhythm Abdomen: Soft, Non-Distended Skin: Ulcer/ Wound - left medial leg ulcer is clean. Microbiology Past 72 Hours 03/23/20 00:20 Blood Culture (Wb) - Left Forearm Blood Culture - Preliminary No growth in 48 hours. 03/22/20 23:40 Blood Culture (Wb) - Right Forearm Blood Culture - Preliminary No growth in 48 hours. 03/23/20 00:50 Wound - Leg, Left Gram Stain - Final 03/23/20 00:50 Wound - Leg, Left Wound Culture - Final Meth. resistant Staph. aureus Laboratory Results 03/24/20 14:36: Vancomycin Trough 16.9 H 03/25/20 07:02: WBC 9.0, RBC 3.67 L, Hgb 10.4 L, Hct 34.0 L, MCV 92.6, MCH 28.3, MCHC 30.6 L, RDW Std Deviation 49.7 H, RDW Coeff of Chepe 14.5, Plt Count 300, MPV 9.7 03/25/20 07:02: PT 16.2 H, INR 1.4 03/25/20 07:02: Sodium 140, Potassium 3.9, Chloride 105, Carbon Dioxide 28.0, Anion Gap 7, BUN 13, Creatinine 1.08 H, Estim Creat Clear Calc 58.99, Est GFR (MDRD) Af Amer 69, Est GFR (MDRD) Non-Af 57 L, BUN/Creatinine Ratio 12.0, Glucose 94, Calcium 8.6 Current Medications Al Hydroxide/Mg Hydroxide (Mylanta Ii) 30 ml PO Q6H PRN PRN PRN Reason: INDIGESTION Albuterol Sulfate (Ventolin Aerosols) 2.5 mg INHALATION Q4H PRN PRN PRN Reason: WHEEZING Aripiprazole (Abilify) 5 mg PO DAILY [facility] Last Admin: 03/25/20 07:34 Dose: 5 mg Documented by: Benzonatate (Tessalon Perle) 200 mg PO TID PRN PRN PRN Reason: COUGH Bupropion HCl (Wellbutrin Xl) 300 mg PO DAILY [facility] Last Admin: 03/25/20 07:35 Dose: 300 mg Documented by: Buspirone HCl (Buspar) 10 mg PO BID PRN PRN PRN Reason: ANXIETY Diazepam (Valium) 5 mg PO 4X/DAY PRN PRN PRN Reason: SPASMS Last Admin: 03/25/20 01:46 Dose: 5 mg Documented by: Docusate Sodium (Colace) 100 mg PO BID [facility] Last Admin: 03/25/20 07:35 Dose: 100 mg Documented by: Famotidine (Pepcid) 20 mg PO QHS [facility] Last Admin: 03/24/20 23:03 Dose: 20 mg Documented by: Ferrous Sulfate (Ferrous Sulfate) 325 mg PO DAILY@1200 [facility] Last Admin: 03/25/20 11:28 Dose: 325 mg Documented by: [facility] Admin: 03/25/20 07:34 Dose: 1 mg Documented by: Gabapentin (Neurontin) 300 mg PO BID [facility] Last Admin: 03/25/20 07:35 Dose: 300 mg Documented by: Hydromorphone HCl (Dilaudid Inj) 1 mg IV .Q3 HOURS PRN PRN PRN Reason: Pain Score 6-10/10 Last Admin: 03/23/20 11:18 Dose: 1 mg Documented by: Hydromorphone HCl (Dilaudid Tablet) 2 mg PO Q3H PRN PRN PRN Reason: Pain Score 4-5/10 Last Admin: 03/25/20 07:35 Dose: 2 mg Documented by: Lactated Ringer's () 1,000 mls @ 60 mls/hr IV .[id number] [facility] Last Admin: 03/25/20 11:28 Dose: 60 mls/hr Documented by: Vancomycin IV Pharmacy to Dose (1 ea/ Sodium Chloride) 500 mls @ 250 mls/hr IV X1 PRN; Protocol PRN Reason: Rx to Dose Piperacillin Sod/Tazobactam (Sod 3.375 gm/ Sodium Chloride) 50 mls @ 12.5 mls/hr IV Q8 [facility] Last Infusion: 03/25/20 09:37 Dose: Infused Documented by: Sodium Chloride () 250 mls @ 15 mls/hr IV .[id number] PRN PRN Reason: Saline Flush Last Infusion: 03/25/20 09:37 Dose: 15 mls/hr Documented by: Sodium Chloride () 250 mls @ 15 mls/hr IV .[id number] PRN PRN Reason: Additional IVPB Infusion Vancomycin HCl 1,250 mg/ (Sodium Chloride) 275 mls @ 167 mls/hr IV Q12H [facility] Last Infusion: 03/25/20 07:00 Dose: Infused Documented by: Lactobacillus Acidophilus (Acidophilus) 1 tablet PO BID [facility] Last Admin: 03/25/20 07:34 Dose: 1 tablet Documented by: Metoprolol Succinate (Toprol Xl (Beta Christin)) 50 mg PO DAILY [facility] Last Admin: 03/25/20 07:36 Dose: 50 mg Documented by: Ondansetron HCl (Zofran) 4 mg IV Q6H PRN PRN PRN Reason: NAUSEA Last Admin: 03/25/20 08:27 Dose: 4 mg Documented by: Pantoprazole Sodium (Protonix) 40 mg PO BID [facility] Last Admin: 03/25/20 07:35 Dose: 40 mg Documented by: Pramipexole Dihydrochloride (Mirapex) 0.25 mg PO TID [facility] Last Admin: 03/25/20 05:21 Dose: 0.25 mg Documented by: Prednisone () 8 mg PO DAILYCM [facility] Last Admin: 03/25/20 07:35 Dose: 8 mg Documented by: Promethazine HCl (Phenergan Tablet) 25 mg PO Q4H PRN PRN PRN Reason: NAUSEA/VOMITING Sodium Chloride () 10 - 40 ml IV UD PRN PRN Reason: SALINE FLUSH Last Admin: 03/24/20 03:05 Dose: 10 ml Documented by: Sodium Hypochlorite (Dakins Solution 0.25% (1/2 Strength)) 1 applic TOPICAL BID [facility]; Protocol Last Admin: 03/25/20 08:39 Dose: 1 applicatio Documented by: Trazodone HCl (Desyrel) 150 mg PO QHS [facility] Last Admin: 03/24/20 23:03 Dose: 150 mg Documented by: Venlafaxine HCl (Effexor Xr) 225 mg PO DAILY [facility] Last Admin: 03/25/20 07:35 Dose: 225 mg Documented by: Warfarin Sodium (Jantoven) 5 mg PO DAILY@1700 [facility] Last Admin: 03/24/20 16:39 Dose: 5 mg Documented by: Medical Necessity - Tobacco Use Smoking Status: Never smoker Assessment/Plan All Active Problems Left leg pain (Acute) MRSA (methicillin resistant Staphylococcus aureus) (Acute) Sinus tachycardia (Acute) Open wound of left lower extremity (Acute) Hematoma (Acute) Compartment syndrome of left lower extremity (Acute)
--- NOTE | 2020-03-25 13:00 | CASEMGMT ---
ZENON ROMAN updated by Dr. Kent patient will discharge later today after lab work. New script received for IV ATB. ZENON ROMAN called and faxed [facility] regarding discharge today and updated script. ZENON ROMAN called [facility] regarding discharge to home today. [facility] to do start of care in am 9/5 at 0900. ZENON ROMAN updated patient.
[2020-03-25] MEDS: metroNIDAZOLE 500 MG Tablet PO ×2 (15:47→18:06)
[2020-03-25 15:56] VITALS: BP 108/50; PULSE 102; RESP 16; TEMP 37.3; O2SAT 96
--- NOTE | 2020-03-25 16:41 | DCINST_ITS ---
- Discharge Diagnoses Current Active Problems: Current Active and Chronic Problems Left leg pain (Acute) MRSA (methicillin resistant Staphylococcus aureus) (Acute) Open wound of left lower extremity (Acute) fasciotomy wounds left medial leg and left lateral leg You will use the following diet at home:: No restrictions, Other - encourage nutritional supplementation with protein to help the healing process. Discharge Activity: May not drive while taking narcotic pain medications., May Shower - at the time of the dakin's dressing change., - - minimize standing. patient may ambulate. elevate left leg when sitting. May shower in (days): 1 - may shower at the time of the dakin's dressing change. May resume sexual activity in: No Restrictions Weight Bearing Status: Weight bearing as tolerated Keep extremity elevated above heart level: Left Leg Call your doctor if your incision/area has: Continuous Slow Oozing, Sudden Increased Bleeding, Increased Pain/ Swelling, Increased Redness, Foul Smelling Discharge, Swelling at the incision site Call your doctor if you observe: Fever of 101 or Higher, Coldness, Increased Pain, Shortness of breath, Chest pain, Calf discomfort, Uncontrolled pain Suture Line Care: - - dakin's dressing changes daily. Cleanse incision/area with: Soap & Water - may cleanse the wound with soap and water at the time of the dakin's dressing change., - - may get the wound wet in the shower at the time of the dakin's dressing change. Additional Instructions: Home Health to draw CBC, CMP, ESR, CRP, Vanomycin Trough qMonday. Fax results to [phone]. Allergies/Adverse Reactions: Allergies adhesive tape Adverse Reaction (Verified 03/22/20 23:23) Rash Medications to take at Discharge Aripiprazole [Abilify] 5 mg PO DAILY 07/10/18 Omeprazole 40 mg PO BID 07/10/18 Bupropion HCl [Bupropion Xl] 300 mg PO DAILY 08/25/18 Ropinirole HCl [Ropinirole ER] 2 mg PO QHS 08/25/18 Folic Acid 1 mg PO DAILY 01/23/19 Ferrous Sulfate 325 mg PO DAILY 03/27/19 Lactobacillus Acidophilus [Acidophilus] 1 ea PO BID 03/27/19 Venlafaxine XR [Effexor Xr] 225 mg PO DAILY 04/10/19 traZODone [Desyrel] 150 mg PO QHS 04/10/19 Prednisone 8 mg PO DAILY 05/18/19 Metoprolol(XL)Succ [Toprol Xl (Beta Christin)] 50 mg PO DAILY tab 12/30/19 gabapentin 300 mg capsule 300 mg PO BID 30 Days #60 cap 01/25/20 Albuterol IH (ProAir) [Proair Hfa] 1 puff INHALATION Q4H PRN PRN #1 inhaler 01/26/20 Benzonatate [Tessalon Perle] 200 mg PO TID PRN PRN #20 cap 01/26/20 Famotidine [Acid Controller] 20 mg PO QHS 03/04/20 Warfarin [Coumadin] 5 mg PO SUMOTUWETHFRSA 03/04/20 busPIRone [Buspar] 10 mg PO PRN PRN 03/04/20 Mag Hydrox/Al Hydrox/Simeth [Mylanta II] 30 ml PO Q6H PRN PRN udc 03/16/20 Diazepam [Valium] 5 mg PO 4X/DAY PRN PRN #30 tab 03/24/20 Docusate Sodium [Colace] 100 mg PO BID #60 cap 03/24/20 Oxycodone HCl/Acetaminophen [Oxycodone-Acetaminophen 5-325] 1 tab PO Q4H PRN 7 Days #40 tab 03/24/20 Sodium Hypochlorite [Dakins Solution 0.25% (1/2 Strength)] 1 applic TOPICAL DAILY #480 ml 03/24/20 proMETHazine tablet [Phenergan tablet] 25 mg PO 4X/DAY PRN PRN #30 tab 03/24/20 proMETHazine tablet [Phenergan tablet] 25 mg PO Q4H PRN PRN tab 03/24/20 Vancomycin IV 1,250 mg IV Q12H 28 Days #56 vial 03/25/20 The following prescriptions were given: Docusate Sodium [Colace] 100 mg PO BID #60 cap Transmission Status: Received by [facility]/pharmacy #[id number] Sodium Hypochlorite [Dakins Solution 0.25% (1/2 Strength)] 1 applic TOPICAL DAILY #480 ml Prescription Printed Oxycodone HCl/Acetaminophen [Oxycodone-Acetaminophen 5-325] 1 tab PO Q4H PRN 7 Days #40 tab PRN Reason: Pain Score 6-10/10 Transmission Status: Received by [facility]/pharmacy #[id number] proMETHazine tablet [Phenergan tablet] 25 mg PO 4X/DAY PRN PRN #30 tab PRN Reason: NAUSEA/VOMITING Transmission Status: Received by [facility]pharmacy #[id number] Diazepam [Valium] 5 mg PO 4X/DAY PRN PRN #30 tab PRN Reason: Spasms Transmission Status: Received by [facility]pharmacy #[id number] Vancomycin IV 1,250 mg IV Q12H 28 Days #56 vial Prescription Printed Primary Care Physician: Tarah Dubon DO [Primary Care Provider] - Test Results: Test results from this visit will be discussed in further detail at your follow- up appointment, if applicable. Please Follow Up With: Nghia Kent MD - call [phone] if any questions. When: saturday04/04/20 at [facility] at 1100am. Proposed Discharge Date: 03/25/20
--- NOTE | 2020-03-25 17:00 | CASEMGMT ---
Discharge order placed by Dr. Kent. RN JESSIE faxed discharge instructions and ATB script to [facility]. RN JESSIE also called and updated Tan at [facility].
[2020-03-25 20:18] VITALS: BP 142/78; PULSE 99; RESP 16; TEMP 36.8; O2SAT 99
--- NOTE | 2020-03-25 21:35 | DS.PCM_ITS ---
Discharge Date and Diagnosis Date of Admission: 03/23/20 Date of Discharge: 03/25/20 - Primary Discharge Diagnosis Acute Problems: Nonhealing fasciotomy MRSA infected ulcers left medial leg. MRSA. Failed outpatient therapy with po antibiotics. - Secondary Discharge Diagnosis Chronic Problems: Anxiety Bilateral lower extremity edema. Hematoma with compartment syndrome left leg s/p fasciotomies. History of compromised skin grafts. Lupus Immunocompromised state due to high risk medication, Methotrexate, for Lupus, currently off Methotrexate. senior living current use of anticoagulant Hospital Course and Treatment Imaging Results: Diagnostic Data Lower Extremity CT 03/23/20 11:24 IMPRESSION: Postoperative changes along the medial aspect of the mid leg with a tissue defect. The previously seen fluid collection has been resolved. Electronically Signed: Yan Urbano, at 15:46 EDT , Service support , Consultations 03/23/20 04:32 Consult: Onc/Wound/business integration analyst Routine Comment: Operations: None Procedures: PICC line placement Summary of Care Provided: The patient is a 49 year old F who had surgery 03/14/20 where she underwent surgical preparation left medial leg with incision and drainage and excisional debridement nonhealing fasciotomy MRSA infected ulcers (29.75 cm2) and placement Amniofill placental connective tissue powder, 1000 mg. Postoperatively, wound care was started with the VAC. Operative cultures showed MRSA, Streptococcus anginosus, Propionibacterium acnes, Actinomyces neuii, Anaerobic cocci, and Prevotella bivia. She was discharged home on Doxycycline and Augmentin. The Streptococcus showed resistance to Augmentin, and it was changed to Cleocin. She was recently seen at the [facility] on 03/21/20 with complaints of calf pain. Ultrasound was done which was negative for DVT. Patient noted increasing odor from the wound with the VAC. With the increasing pain and increasing odor, she came to the ED on 03/23/20 where it was recommended to her that she be admitted for more aggressive wound care with Dakin's dressing changes which will help the odor and to start IV antibiotics. Her WBC was normal. Her Lactate was normal. Vancomycin and Zosyn were started. She will be discharged on IV antibiotics through a PICC line. MRSA Wound DNA by PCR was done which was positive. With the persistent pain in her left posterior leg, a CT scan was ordered on 03/23/20. It showed postoperative changes along the medial aspect of the mid leg with a tissue defect. The previously seen fluid collection has been resolved. With the IV antibiotics, she saw improvement in the ulcer left medial leg as more granulation tissue was seen. Less exudate and less drainage were seen. On the morning of 03/25/20, she had a slight temperature increase to 99.9. She complained of a sore throat. She had a bout of diarrhea. A stool sample was attempted to be collected, but she only had the one episode. So no stool sample was collected prior to discharge. If she has issues with loose stools as an outpatient, will reorder the Cdiff. In the meantime, she was started on Flagyl while in the hospital. Because of these symptoms, a COVID-19 test was done which was negative. She tolerated the Vancomycin for the the MRSA. The Zosyn was discontinued prior to discharge. Prealbumin was 25 on 03/23/20. Encouraged nutritional supplementation with protein to help the healing process. Once the infusion company was set up and the dose of the Vancomycin was decided upon, she was discharged home on 03/25/20. She will continue her Home Health. She states she can do the Dakin's dressing changes on the days that Home Health is unable to. Will treat with IV Vancomycin for 4 weeks then reassess. If enough improvement is seen in the healing process, will change to po antibiotics for the remaining 2 weeks for a 6 week course of therapy. Weekly labs will be drawn by [facility] (CBC, CMP, ESR, CRP, Vancomycin Trough) and results will be faxed to [phone]. At discharge, scripts were written for the Vancomycin and Flagyl and Percocet for pain (40 tabs) and for Valium for spasm (30 tabs). Wrote scripts for Phenergan for nausea (30 tabs) and a refill and for Colace for constipation (60 tabs). If diarrhea continues to be an issue, will check a Cdiff and treat if positive. She will elevate her left leg when sitting. She will minimize standing. She will wear her MENDEZ wrap for compression to minimize leg swelling which can hinder the healing process. She will followup at the [facility]ound Center on 04/04/20 at 1100am. Condition upon discharge is good. Subjective: Patient had a sore throat in the morning. Her temperature was 99.9. She had a bout of diarrhea this morning. - Physical Exam Vitals/I&O's: Vital Signs Temp Pulse Resp BP Pulse Ox 98.3 F 99 16 142/78 H 99 03/25/20 20:18 03/25/20 20:18 03/25/20 20:18 03/25/20 20:18 03/25/20 20:18 Oxygen Flow Rate (L/min) 2 Oxygen Delivery Method Room Air Weight: 334 lb 14.115 oz Body Mass Index (BMI) 54.0 Finger Stick Blood Glucose 115 Intake and Output for Last 24 Hours 03/23/20 03/24/20 03/25/20 23:59 23:59 23:59 Intake Total 2992.25 / 2992.25 3648.00 / 3648.00 2935.0 / 2935.0 Output Total 650 / 650 Balance 2342.25 / 2342.25 3648.00 / 3648.00 2935.0 / 2935.0 General: Alert, Oriented x3 HEENT: PERRLA, EOMI Oral: Moist Mucosa Neck: Supple Lungs: Clear to auscultation Cardiovascular: Regular rate, Regular Rhythm Abdomen: Soft, Non-Distended Skin: Ulcer/ Wound - left medial leg ulcer is stable. Good granulation tissue is noted. No exudate seen. No further evidence of infection at this time. Neurological: Cranial nerves II-XII grossly intact Psych/Mental Status: Normal Affect, Appropriate Microbiology Past 72 Hours 03/23/20 00:20 Blood Culture (Wb) - Left Forearm Blood Culture - Preliminary No growth in 48 hours. 03/22/20 23:40 Blood Culture (Wb) - Right Forearm Blood Culture - Preli minary No growth in 48 hours. 03/23/20 00:50 Wound - Leg, Left Gram Stain - Final 03/23/20 00:50 Wound - Leg, Left Wound Culture - Final Meth. resistant Staph. aureus Laboratory Results 03/25/20 07:02: WBC 9.0, RBC 3.67 L, Hgb 10.4 L, Hct 34.0 L, MCV 92.6, MCH 28.3, MCHC 30.6 L, RDW Std Deviation 49.7 H, RDW Coeff of Chepe 14.5, Plt Count 300, MPV 9.7 03/25/20 07:02: PT 16.2 H, INR 1.4 03/25/20 07:02: Sodium 140, Potassium 3.9, Chloride 105, Carbon Dioxide 28.0, Anion Gap 7, BUN 13, Creatinine 1.08 H, Estim Creat Clear Calc 58.99, Est GFR (MDRD) Af Amer 69, Est GFR (MDRD) Non-Af 57 L, BUN/Creatinine Ratio 12.0, Glucose 94, Calcium 8.6 03/25/20 12:55: COVID-19 ([facility]) Not Detected Discharge Diet: No Restrictions, - - encourage nutritional supplementation with protein to help the healing process. Discharge Activity: May not drive while taking narcotic pain medications., May Shower - at the time of the dakin's dressing change., - - minimize standing. patient may ambulate. elevate left leg when sitting. May shower in (days): 1 - may shower at the time of the dakin's dressing change. May resume sexual activity in: No Restrictions Weight Bearing Status: Weight bearing as tolerated Keep extremity elevated above heart level: Left Leg Call your doctor if your incision/area has: Continuous Slow Oozing, Sudden Increased Bleeding, Increased Pain/ Swelling, Increased Redness, Foul Smelling Discharge, Swelling at the incision site Call your doctor if you observe: Fever of 101 or Higher, Coldness, Increased Pain, Shortness of breath, Chest pain, Calf discomfort, Uncontrolled pain Suture Line Care: - - dakin's dressing changes daily. Cleanse incision/area with: Soap & Water - may cleanse the wound with soap and water at the time of the dakin's dressing change., - - may get the wound wet in the shower at the time of the dakin's dressing change. Additional Dressing/Incision Instructions:: Home Health to assist with Dakin's dressing changes daily. Home Health to draw CBC, CMP, ESR, CRP, Vancomycin Trough qMonday. Will fax results to [phone]. Pharmacy to dose the Vancomycin. Home Medications: Medications to take at Discharge Aripiprazole [Abilify] 5 mg PO DAILY 07/10/18 Omeprazole 40 mg PO BID 07/10/18 Bupropion HCl [Bupropion Xl] 300 mg PO DAILY 08/25/18 Ropinirole HCl [Ropinirole ER] 2 mg PO QHS 08/25/18 Folic Acid 1 mg PO DAILY 01/23/19 Ferrous Sulfate 325 mg PO DAILY 03/27/19 Lactobacillus Acidophilus [Acidophilus] 1 ea PO BID 03/27/19 Venlafaxine XR [Effexor Xr] 225 mg PO DAILY 04/10/19 traZODone [Desyrel] 150 mg PO QHS 04/10/19 Prednisone 8 mg PO DAILY 05/18/19 Metoprolol(XL)Succ [Toprol Xl (Beta Christin)] 50 mg PO DAILY tab 12/30/19 gabapentin 300 mg capsule 300 mg PO BID 30 Days #60 cap 01/25/20 Albuterol IH (ProAir) [Proair Hfa] 1 puff INHALATION Q4H PRN PRN #1 inhaler 01/26/20 Benzonatate [Tessalon Perle] 200 mg PO TID PRN PRN #20 cap 01/26/20 Famotidine [Acid Controller] 20 mg PO QHS 03/04/20 Warfarin [Coumadin] 5 mg PO SUMOTUWETHFRSA 03/04/20 busPIRone [Buspar] 10 mg PO PRN PRN 03/04/20 Mag Hydrox/Al Hydrox/Simeth [Mylanta II] 30 ml PO Q6H PRN PRN udc 03/16/20 Diazepam [Valium] 5 mg PO 4X/DAY PRN PRN #30 tab 03/24/20 Docusate Sodium [Colace] 100 mg PO BID #60 cap 03/24/20 Oxycodone HCl/Acetaminophen [Oxycodone-Acetaminophen 5-325] 1 tab PO Q4H PRN 7 Days #40 tab 03/24/20 Sodium Hypochlorite [Dakins Solution 0.25% (1/2 Strength)] 1 applic TOPICAL DAILY #480 ml 03/24/20 proMETHazine tablet [Phenergan tablet] 25 mg PO 4X/DAY PRN PRN #30 tab 03/24/20 proMETHazine tablet [Phenergan tablet] 25 mg PO Q4H PRN PRN tab 03/24/20 Vancomycin IV 1,250 mg IV Q12H 28 Days #56 vial 03/25/20 Following Prescriptions Were Given to Patient: Docusate Sodium [Colace] 100 mg PO BID #60 cap Transmission Status: Received by [facility]/pharmacy #[id number] Sodium Hypochlorite [Dakins Solution 0.25% (1/2 Strength)] 1 applic TOPICAL DAILY #480 ml Prescription Printed Oxycodone HCl/Acetaminophen [Oxycodone-Acetaminophen 5-325] 1 tab PO Q4H PRN 7 Days #40 tab PRN Reason: Pain Score 6-10/10 Transmission Status: Received by [facility]/pharmacy #[id number] proMETHazine tablet [Phenergan tablet] 25 mg PO 4X/DAY PRN PRN #30 tab PRN Reason: NAUSEA/VOMITING Transmission Status: Received by [facility]acy #[id number] Diazepam [Valium] 5 mg PO 4X/DAY PRN PRN #30 tab PRN Reason: Spasms Transmission Status: Received by [facility]pharmacy #[id number] Vancomycin IV 1,250 mg IV Q12H 28 Days #56 vial Prescription Printed Primary Care Physician: Tarah Dubon DO [Primary Care Provider] - Please Follow Up With: Nghia Kent MD - call [phone] if any questions. When: saturday04/04/20 at wound center at 1100am. Disposition: Home with Home Health Minutes spent on discharge:: 35 Patient Condition:: Stable Medical Necessity - Tobacco Use Smoking Status: Never smoker Meaningful Use Info Meaningful Use Diagnoses (Choose all that apply): None applicable
--- NOTE | 2020-03-29 12:13 | CASEMGMT ---
ZENON ROMAN ID PHONE CALL DC DATE: 03/25/2020 DC Disposition: Home with Home Health through [facility]. Start of care 03/26/2020 Diagnosis on Discharge: Non-healing MRSA ulcer L medial leg, failed outpt therapy LACE/STRATA: 06/23 Prescriptions obtained: yes Call to [facility] to verify start of care- no answer. Call to patient, introduced role of CM to her. She states [facility] has seen her and patient is becoming more comfortable with IV antibiotics at home. No concerns at this time. Claudio GILBERTN RN ACM
--- NOTE | 2020-04-04 13:15 | PCM.WC.PN ---
Type of Wound Date of Service: 04/04/20 Chief Complaint: Nonhealing fasciotomy ulcer left medial leg with skin graft compromise, s/p closure 01/01/20 with central ulcerations. History of Wound: Surgery 03/14/20 - Surgical preparation left medial leg with incision and drainage and excisional debridement nonhealing fasciotomy MRSA infected ulcers (29.75 cm2) and placement Amniofill placental connective tissue powder, 1000 mg. Surgical culture 03/14/20 positive for MRSA, Strepanginosus, Proprionibacterium acnes, Actinomyces neuii, Anaerobic cocci and Prevotella bivia. She was discharged from the hospital on Doxycycline and Augmentin. The Augmentin was changed to Clindamycin 450 mg TID. She failed outpatient therapy and was readmitted. Wound culture showed MRSA. A PICC line was placed and she was discharged on Vancomycin. Wound Care: Dakin's. Prealbumin from 03/23/20 was 25.0. Encourage nutritional supplementation with protein to help the healing process. She had some diarrhea in the hospital which resolved. Today she denies fever. Her appetite is good. At discharge her Creatinine was 1.08. On 03/30/20 the Creatinine increased to 1.39. The Creatinine today was slightly better at 1.37. At the time of hospitalization she had calf pain and the Ultrasound was negative for DVT. Progress of Wound: Improved. - Physical Exam Vital Signs Temp Pulse Resp BP Pulse Ox 98.3 F 99 16 142/78 H 99 03/25/20 20:18 03/25/20 20:18 03/25/20 20:18 03/25/20 20:18 03/25/20 20:18 Debridement Note Post-debridement measurements #1 Left medial leg. Grade - 2. 8.8 x 4.8 x 1.5 cm - 42.24 cm2. Tolerated procedure well. Redressed with moist dressing. To continue Dakin's dressing change at home. Wound debrided: #1 Left medial leg. Laterality: Left Wound Grade/Stage: 2. Type of Debridement: Excisional debridement Anesthesia Used: 4% Lidocaine Solution Depth: Down to and including healthy tissue, in the subcutaneous layer Percentage of wound debrided: 100 Instrument Used: 5mm curette Tissue Removed: subcutaneous tissue. Severity: Fat Layer Exposed Amount of bleeding with debridement: Mild Bleeding Controlled with: Pressure Patient tolerated procedure well Assessment/Plan Assessment: 1. Nonhealing fasciotomy ulcer left medial leg, s/p closure 01/01/20, with central ulcerations. 2. Hematoma with compartment syndrome left leg s/p fasciotomies. 3. History of compromised skin grafts. 4. MRSA. 5. director long term care use of anticoagulation. 6. Lupus. 7. Immunocompromised state due to high risk medication, Methotrexate, for Lupus, currently off Methotrexate. 8. Failed outpatient therapy. Plan: Continue Dakin's dressing changes daily or twice a day depending on the drainage. This is followed by an MENDEZ wrap and Spandigrip for compression. Continue Vancomycin for MRSA. The Creatinine has improved slightly to 1.37. Will recheck another Creatinine in a week. Prealbumin from 03/23/20 was 25.0. Encourage nutritional supplementation with protein to help the healing process. Keep left leg elevated when sitting. Minimize standing. Followup two weeks. 111xxx-113xx: [id number] Global Visit - ICD-10 - Z48.89, L97.922, T14.8xxS, T79.A22S, T86.828, A49.02, Z79.01, M32.9, Z79.899
== END 2020-03-25 20:25 | disposition home health service (06) | DRG 380 ==
LOC: ED 03-23 00:39 → MS3 03-23 01:20
PROVIDERS: Admitting Provider Surgery; Emergency Provider Emergency Medicine; PCP Family Medicine; Visit Provider Surgery
DX: L97.229 Non-pressure chronic ulcer of left calf with unspecified severity (principal); B95.62 Methicillin resistant Staphylococcus aureus infection as the cause of diseases classified elsewhere; M32.9 Systemic lupus erythematosus, unspecified; D89.9 Disorder involving the immune mechanism, unspecified; L08.89 Other specified local infections of the skin and subcutaneous tissue; Z98.890 Other specified postprocedural states; T79.A22D Traumatic compartment syndrome of left lower extremity, subsequent encounter; X58.XXXD Exposure to other specified factors, subsequent encounter; Z16.11 Resistance to penicillins; T86.829 Unspecified complication of skin graft (allograft) (autograft); Y83.2 Surgical operation with anastomosis, bypass or graft as the cause of abnormal reaction of the patient, or of later complication, without mention of misadventure at the time of the procedure; Z79.01 Long term (current) use of anticoagulants; L97.821 Non-pressure chronic ulcer of other part of left lower leg limited to breakdown of skin; R60.0 Localized edema; Z79.899 Other long term (current) drug therapy; Z86.718 Personal history of other venous thrombosis and embolism; Z86.14 Personal history of Methicillin resistant Staphylococcus aureus infection; M79.662 Pain in left lower leg; L97.822 Non-pressure chronic ulcer of other part of left lower leg with fat layer exposed
CPT/HCPCS: 36415; 36569; 73700; 80048; 80053; 80202; 82550; 83605; 84134; 85025; 85027; 85610; 85652; 85730; 86140; 87040; 87070; 87077; 87186; 87205; 87635; 87640; 93971; 97605; 97802; 99213; 99285; C9803; J7030; J7040; J7050; J7120; A4216; G0463; J2405; J3030; U0003

== ENCOUNTER → 2020-03-30 10:24 | Outpatient (CLI) | payer MEDICAID, SELFPAY ==
[2020-03-23 02:48] VITALS: BMI 54.0
[2020-03-30 11:52] LABS: Erythrocyte Sedimentation Rate > 130 mm/hr (0-20)
[2020-03-30 11:54] LABS: Hematocrit 35.3 % (37-47); Hemoglobin 10.8 g/dL (12.0-15.0); Mean Corp Hgb Conc 30.6 g/dL (32-36); Mean Corpuscular Hgb 28.4 pg (27.0-32.0); Mean Corpuscular Volume 92.9 fL (81-99); Mean Platelet Vol. 10.7 fl (6.2-12.0); Platelet Count 312 K/mm3 (150-450); RBC Distribution Width CV 14.2 % (11.6-14.6); RBC Distribution Width SD 48.7 fl (35.1-43.9); White Blood Count 10.4 K/mm3 (4.4-11.0)
[2020-03-30 11:58] LABS: Vancomycin, Trough Level 20.6 ug/mL (5.0-15.0)
[2020-03-30 12:00] LABS: ALB/GLOB Ratio 0.6 RATIO (0.9-2.4); AST(SGOT) 15 U/L (15-37); Alanine Aminotransfer ALT/SGPT 15 U/L (13-56); Albumin, Serum 2.9 g/dL (3.2-5.0); Alkaline Phosphatase 88 U/L (45-117); Anion Gap 7 (5-15); BUN 13 mg/dL (7-18); BUN/Creat Ratio 9.4 RATIO (10-20); Calcium,Total 9.3 mg/dL (8.5-10.1); Chloride 103 mmol/L (98-107); Creatinine, Serum 1.39 mg/dL (0.55-1.02); EST Glomerular Filtration Rate 43 mL/min (>60); Est Glom Filt Rate - Afr Amer 52 mL/min (>60); Globulin 5.2 g/dL (2.2-4.2); Glucose 77 mg/dL (74-106); Potassium 3.8 mmol/L (3.5-5.1); Protein, Total 8.1 g/dL (6.4-8.2); Sodium Level 138 mmol/L (136-145)
== END ==
PROVIDERS: PCP Family Medicine; Visit Provider Surgery
DX: L97.922 Non-pressure chronic ulcer of unspecified part of left lower leg with fat layer exposed (principal); A49.02 Methicillin resistant Staphylococcus aureus infection, unspecified site
CPT/HCPCS: 80053; 80202; 85027; 85652; 86140

== ENCOUNTER 2020-04-11 13:44 | Emergency (ER) | payer MEDICAID, SELFPAY ==
[2020-04-11 13:44] VITALS: BP 161/93; PULSE 98; RESP 16; TEMP 36.1; O2SAT 99; BMI 52.0
--- NOTE | 2020-04-11 14:06 | ED.RN ---
PT REPORTS PICC LINE SLIPPING OUT ABOUT 3 INCHES. PT INSTINCTIVELY PUSHED IT BACK IN. HAS USED IT FOR 4 DOSES OF VANCOMYCIN AFTER INCIDENT. PT REPORTS FELLING A LITTLE PRESSURE AT SIGHT DURING INFUSION BUT OTHERWISE SEEMED FINE. HHN CAME TODAY TO DRAW BLOOD AND WAS UNABLE TO DRAW BLOOD FROM LINE. SENT HERE FOR PLACEMENT ASSESSMENT.
--- NOTE | 2020-04-11 14:27 | RAD_ITS ---
STUDY: X-RAY CHEST REASON FOR EXAM: Female, 49 years old. PT STATES PICC LINE CAME OUT SOME AND SHE PUSHED IT BACK IN NO DOES NOT WORK PROPERLY CONCERNED FOR KINK TECHNIQUE: Single AP portable view of the chest. COMPARISON: Comparison is made with prior study dated 01/26/2020. FINDINGS: The left-sided PICC line catheter has been placed. The tip is at the junction of the superior vena cava and right atrium. The lungs are clear and expanded. There is no demonstrated pleural abnormality. Normal size heart. Normal mediastinum and xiomara. Normal visualized pulmonary arteries. Normal visualized aortic arch and descending thoracic aorta. Normal visualized thoracic spine. Normal visualized ribs, clavicles, and shoulders. Moderate size hiatal hernia. RAD/Chest 1 View (Portable) IMPRESSION: Moderate size hiatal hernia. The left-sided PICC line catheter is unremarkable. Electronically Signed: Yan Clement, at 14:59 EDT , Service support ,
--- NOTE | 2020-04-11 14:27 | RAD_ITS ---
STUDY: X-RAY - LEFT HUMERUS REASON FOR EXAM: Female, 49 years old. PT STATES PICC LINE CAME OUT SOME AND SHE PUSHED IT BACK IN NO DOES NOT WORK PROPERLY CONCERNED FOR KINK TECHNIQUE: 1 view(s) of the humerus. COMPARISON: None. FINDINGS: Normal visualized humerus. There is no demonstrated fracture or osseous destructive process. The visualized PICC line catheter is straight. No kink is seen. RAD/Humerus min 2 Views IMPRESSION: The visualized portion of the PICC line catheter is unremarkable. No kink is seen. Electronically Signed: Yan Clement, at 14:58 EDT , Service support ,
[2020-04-11] MEDS: Acetaminophen 500 MG Tablet 1000 MG PO (14:30)
--- NOTE | 2020-04-11 14:55 | ED.DCSUM_ITS ---
- ER Visit Summary Date of Service: 04/11/20 Chief Complaint: PICC line not working History of Present Illness: The patient is a 49 F [address] sees and Dr[address] Kent at the wound clinic. She reports that she had an acute compartment syndrome 18 months ago and it is not healing. 2 weeks ago she tested positive for MRSA. She had a PICC line placed and is on vancomycin. States that 2 days ago PICC line came out approximately 2 inches and she pushed it back in. Today she try to get his dose of vancomycin and it would not flush. She is concerned that it may be kinked. She is unsure whether it was heparinized after the last dose of vancomycin. She reports that she is on Coumadin and that her INR was 2.63 days ago. She is on this for a pulmonary embolus in the past. Patient reports that she has an aching pain is 3 out of 10 severity. Is unchanged from the past 2 weeks that she has had the PICC line in place. She denies any fever or chills. She reports she has been nauseated. She is had diarrhea twice a day off and on for the past week. Physical Examination: Vitals: Stable. Afebrile. General: Well-nourished and well-developed. Head: Normocephalic atraumatic. Neck: Supple, no lymphadenopathy. No JVD. Nontender. Cardiovascular: Regular rate and rhythm. No murmurs. Respiratory: No respiratory distress. Clear to auscultation bilaterally. Abdominal: Soft, nontender, nondistended, normal bowel sounds. No guarding, rebound, or peritoneal signs. Back: Nontender. Extremities: Mild tenderness to palpation over the PICC line in her left arm. There is minimal erythema. There is no swelling distally. Skin: Normal color, no rash. Neurologic: Alert and oriented ?3. Cranial nerves II through XII are intact. Normal strength and sensation. Psych: Normal affect. Test Results: Chest x-ray shows the PICC line tip to be in place. X-ray of her left arm shows that this is not kinked. Emergency Department Course and Treatment: Patient was given Tylenol for pain. She had Cathflo placed in her PICC line and is now flushing easily. Treatment Plan: Patient was discussed with Janay Angelo, the nurse practitioner for Dr. Kent, she will be discharged instructions to continue to use the PICC line. Follow-up with the wound clinic for any problems. Follow-up with Dr. Kent in 1 week as previously scheduled. Return to the emergency department for any worsening symptoms. Disposition: To home in improved and stable condition. Impression: 1. PICC line malfunction. 2. Coumadin coagulopathy. This note was generated with Viz[employer]ation software. It may contain incorrect words, spelling, and punctuation that were not noted in review of the chart prior to signing ED Disposition - Plan for ED Patient: Instructions: ED PICC Line Care Referrals: Nghia Kent MD [STAFF PHYSICIAN] - Keep Olya appointment
[2020-04-11] MEDS: Alteplase 2 MG/2 ML Vial IV (15:57)
[2020-04-11 17:02] VITALS: BP 142/87; PULSE 86; RESP 16; O2SAT 99
--- NOTE | 2020-04-11 17:02 | CM.ED ---
Social Work Consult: Resources Informant: Janay, RN Janay reporting that patient is currently active with [facility] for home health care and is wanting to change providers. This medical social worker met with patient in room. Introduced self and medical social worker role. Patient agreeable speaking with this medical social worker. Patient confirming to want to change home health providers. Patient is active with Dr. Kent for follow up care. This medical social worker providing patient with a list of in-network home health providers. Patient currently with [facility] in the home and getting pic line flushed by home health care. Patient educated to speak with Dr. Kent about getting an order for another home health company and to provide the home health companies name that patient would like to go with to Dr. Kent's office. Patient thanking this medical social worker for the information and voicing understanding. Patient wanting to leave the ED as patient elderly mother is waiting for patient in the parking lot. Support provided. Nursing staff aware of patient wanting to leave, patient completed medical treatment and has been discharged. Marito PANIAGUA, TAMI
--- NOTE | 2020-04-12 12:49 | WC ---
Called [facility] lab and spoke to Maxx regarding the scheduled blood draw that was never processed from yesterday. She was not sure who had ordered this blood work. I explained to her that this was a standing order and it gets drawn every Saturday due to her IV Vanc home infusions. She said she would get it processed NEEL. Spoke to patient who voiced her unhappiness with N with unprepared nurses working on her PICC line over the weekend. After receiving her updated blood work with [facility] and reviewing with the pharmacist with her infusion company, no new orders were given. Continue with current infusion. Notified [facility] regarding this and the complaints from the patient. Spoke to Charity and she will document this and will call patient. Labs and ER report regarding patient's PICC placement was faxed to [facility].
== END 2020-04-11 17:03 | disposition home or self-care (01) ==
LOC: ED 15:05
PROVIDERS: Emergency Provider Emergency Medicine; PCP Family Medicine
DX: Z45.2 Encounter for adjustment and management of vascular access device (principal); R79.1 Abnormal coagulation profile; T45.515A Adverse effect of anticoagulants, initial encounter; Z86.711 Personal history of pulmonary embolism
CPT/HCPCS: 71045; 73060; 96374; 99283; J2997; A4216

== ENCOUNTER → 2020-04-12 11:20 | Outpatient (CLI) | payer MEDICAID, SELFPAY ==
[2020-04-11 13:44] VITALS: BMI 52.0
[2020-04-12 11:47] LABS: ALB/GLOB Ratio 0.7 RATIO (0.9-2.4); AST(SGOT) 23 U/L (15-37); Alanine Aminotransfer ALT/SGPT 17 U/L (13-56); Albumin, Serum 3.3 g/dL (3.2-5.0); Alkaline Phosphatase 104 U/L (45-117); Anion Gap 4 (5-15); BUN 18 mg/dL (7-18); BUN/Creat Ratio 13.5 RATIO (10-20); Calcium,Total 9.4 mg/dL (8.5-10.1); Chloride 100 mmol/L (98-107); Creatinine, Serum 1.33 mg/dL (0.55-1.02); EST Glomerular Filtration Rate 45 mL/min (>60); Est Glom Filt Rate - Afr Amer 55 mL/min (>60); Globulin 4.9 g/dL (2.2-4.2); Glucose 74 mg/dL (74-106); Potassium 5.2 mmol/L (3.5-5.1); Protein, Total 8.2 g/dL (6.4-8.2); Sodium Level 136 mmol/L (136-145)
[2020-04-12 11:56] LABS: Vancomycin, Trough Level 18.9 ug/mL (5.0-15.0)
== END ==
PROVIDERS: PCP Family Medicine; Visit Provider Surgery
DX: L97.922 Non-pressure chronic ulcer of unspecified part of left lower leg with fat layer exposed (principal)
CPT/HCPCS: 80053; 80202; 86140

== ENCOUNTER 2020-04-18 08:15 | Outpatient (RCR) | payer MEDICAID, SELFPAY ==
[2020-03-21 11:12] VITALS: BMI 53.1
[2020-03-22 00:27] VITALS: BP 131/89; PULSE 103; RESP 16; TEMP 35.9; O2SAT 96
[2020-04-04 11:02] VITALS: BP 135/53; PULSE 107; RESP 20; TEMP 36.3
[2020-04-04 13:37] LABS: Erythrocyte Sedimentation Rate 105 mm/hr (0-20); Vancomycin, Trough Level 18.7 ug/mL (5.0-15.0)
[2020-04-04 13:38] LABS: Hematocrit 37.4 % (37-47); Hemoglobin 11.5 g/dL (12.0-15.0); Mean Corp Hgb Conc 30.7 g/dL (32-36); Mean Corpuscular Hgb 28.2 pg (27.0-32.0); Mean Corpuscular Volume 91.7 fL (81-99); Mean Platelet Vol. 10.9 fl (6.2-12.0); Platelet Count 239 K/mm3 (150-450); RBC Distribution Width CV 13.8 % (11.6-14.6); RBC Distribution Width SD 46.6 fl (35.1-43.9); Red Blood Count 4.08 M/mm3 (4.2-5.4); White Blood Count 12.2 K/mm3 (4.4-11.0)
[2020-04-04 13:39] LABS: ALB/GLOB Ratio 0.6 RATIO (0.9-2.4); AST(SGOT) 14 U/L (15-37); Alanine Aminotransfer ALT/SGPT 18 U/L (13-56); Albumin, Serum 3.2 g/dL (3.2-5.0); Alkaline Phosphatase 97 U/L (45-117); Anion Gap 7 (5-15); BUN 18 mg/dL (7-18); BUN/Creat Ratio 13.1 RATIO (10-20); Calcium,Total 9.1 mg/dL (8.5-10.1); Chloride 101 mmol/L (98-107); Creatinine, Serum 1.37 mg/dL (0.55-1.02); EST Glomerular Filtration Rate 44 mL/min (>60); Est Glom Filt Rate - Afr Amer 53 mL/min (>60); Glucose 91 mg/dL (74-106); Potassium 4.7 mmol/L (3.5-5.1); Protein, Total 8.2 g/dL (6.4-8.2); Sodium Level 136 mmol/L (136-145)
--- NOTE | 2020-04-05 11:57 | WC ---
Patient called complaining of her PICC dressing irritating her skin. She has asked to have it changed more than once a week. Dr Kent said once a week to avoid less exposure to her PICC site. I spoke to [facility] [phone] and the pharmacist has a sensitive skin PICC dressing kit that he will send out and will notify the patient.
--- NOTE | 2020-04-05 14:06 | WC ---
Kamala from [facility] was notified per Dr Kent that there are no new orders for patient's ATB based on her Creatinine level that was reviewed by Dr Kent yesterday.
[2020-04-18 08:24] VITALS: BP 145/93; PULSE 105; RESP 16; TEMP 36.4; BMI 54.0
[2020-04-18 12:55] LABS: Erythrocyte Sedimentation Rate 97 mm/hr (0-20)
[2020-04-18 12:57] LABS: Hematocrit 37.8 % (37-47); Hemoglobin 11.4 g/dL (12.0-15.0); Mean Corp Hgb Conc 30.2 g/dL (32-36); Mean Corpuscular Hgb 27.7 pg (27.0-32.0); Platelet Count 208 K/mm3 (150-450); RBC Distribution Width CV 14.1 % (11.6-14.6); RBC Distribution Width SD 47.4 fl (35.1-43.9); Red Blood Count 4.11 M/mm3 (4.2-5.4); White Blood Count 9.4 K/mm3 (4.4-11.0)
[2020-04-18 12:59] LABS: ALB/GLOB Ratio 0.6 RATIO (0.9-2.4); AST(SGOT) 13 U/L (15-37); Alanine Aminotransfer ALT/SGPT 19 U/L (13-56); Alkaline Phosphatase 111 U/L (45-117); Anion Gap 4 (5-15); BUN 16 mg/dL (7-18); BUN/Creat Ratio 12.2 RATIO (10-20); Chloride 101 mmol/L (98-107); Creatinine, Serum 1.31 mg/dL (0.55-1.02); EST Glomerular Filtration Rate 46 mL/min (>60); Est Glom Filt Rate - Afr Amer 55 mL/min (>60); Estimated Creatinine Clearance 48.63 ml/min; Globulin 4.8 g/dL (2.2-4.2); Glucose 85 mg/dL (74-106); Potassium 3.8 mmol/L (3.5-5.1); Protein, Total 7.8 g/dL (6.4-8.2); Sodium Level 136 mmol/L (136-145)
--- NOTE | 2020-04-18 17:23 | PN.PCM_ITS ---
Type of Wound Date of Service: 04/18/20 Chief Complaint: Nonhealing fasciotomy ulcer left medial leg. History of Wound: Surgery 03/14/20 - Surgical preparation left medial leg with incision and drainage and excisional debridement nonhealing fasciotomy MRSA infected ulcers (29.75 cm2) and placement Amniofill placental connective tissue powder, 1000 mg. Surgical culture 03/14/20 positive for MRSA, Strepanginosus, Proprionibacterium acnes, Actinomyces neuii, Anaerobic cocci and Prevotella bivia. She was discharged from the hospital on Doxycycline and Augmentin. The Augmentin was changed to Clindamycin 450 mg TID. She failed outpatient therapy and was readmitted. Wound culture showed MRSA. A PICC line was placed and she was discharged on Vancomycin. Wound Care: Dakmatty's. Prealbumin from 03/23/20 was 25.0. Encourage nutritional supplementation with protein to help the healing process. At the time of hospitalization she had calf pain and the Ultrasound was negative for DVT. Weekly labs show a Creatinine of 1.33 on 04/11/20 and the Creatinine today improved slightly to 1.31. Today she denies fever. Her appetite is good. Progress of Wound: Improved. - Physical Exam Vital Signs Temp Pulse Resp BP Pulse Ox 97.5 F L 105 H 16 145/93 H 96 04/18/20 08:24 04/18/20 08:24 04/18/20 08:24 04/18/20 08:24 03/22/20 00:27 Wound Measurements and Assessment WC - Nurse 1 - General Ulcer Measurement Start: 04/04/20 11:02 Freq: Status: Active Protocol: Activity Type Activity Date Activity User E-Sign Co-Sign Detail Recorded Client Recorded Date Recorded By Document 04/18/20 08:24 [id number] 04/18/20 08:26 MARITA 04/18/20 08:24 Wound Center Nurse 1 [Ulcer Assessment] #1 LLL medial, post op incision -Combined with other wound No -Current Size (cm) - Length 8.2 -Current Size (cm) - Width 3.7 -Current Size (cm) - Depth 0.8 -Total Square Cm 30.34 -Photo Taken No -Epithelialization Small 1-33% -Tunneling No -Undermining/Tunneling No -Circular Undermining No -Exudate Amt Medium -Exudate Type Serosanguineous -Wound Margin Flat & Intact -Granulation Amt Large (67-100%) -Granulation Quality Red -Slough/Fibrin Yes -Necrosis Amt Small (1-33%) -Necrotic Tissue Type Adherent Slough -Structure Exposed N/A -Texture (Kisha-wound Skin Appearance) Assessed, Localized Edema -Moisture (Kisha-wound Skin Appearance Assessed,Dry/ ) Scaly -Color (Kisha-wound Skin Appearance) Assessed -Temperature (Kisha-wound Skin No Abnormality Appearance) (Pt Warm) -Tenderness on Palpation (Kisha-wound No Skin Appearance) -Ulcer Cleansing Rinsed/ Irrigated with Saline -Foul Odor after Cleansing No -Anesthetic Used 4% Lidocaine Solution [Edema Assessment] -Lower Limb Edema Present No WC - Nurse 2 - General Ulcer CM Notes Start: 04/04/20 11:02 Freq: Status: Active Protocol: Activity Type Activity Date Activity User E-Sign Co-Sign Detail Recorded Client Recorded Date Recorded By Document 04/18/20 08:54 MARITA [id number] 04/18/20 08:58 MARITA 04/18/20 08:54 Wound Center Nurse 2 [Procedure/Treatment] #1 LLL medial, post op incision -Time 08:55 -Correct Patient Yes -Correct Side, Site, Position Yes -Correct Procedure Yes -Procedure Performed Yes -Type of Procedure Debridement -Clinical Debridement Subcutaneous -Tissue Removed Subcutaneous -Post Debridement (cm) - Length 8.4 -Post Debridement (cm) - Width 4.0 -Post Debridement (cm) - Depth 0.8 -Total Square (Post) (cm) 33.60 -Area of Debridement (cm) - Length 8.4 -Area of Debridement (cm) - Width 4.0 -Total Square (Area) (cm) 33.60 -Tunneling No -Undermining/Tunneling No -Circular Undermining No -Wound/Ulcer Outcome Not Healed -Ulcer Cleansing Rinsed/ Irrigated with Saline -Foul Odor after Cleansing No -Bioengineered Tissue No -Bleeding Controlled with Pressure -Offloading No -Treatment Response Procedure Tolerated Well -Debridement - Subq, 1st 20sq cm Yes -Debridement, SubQ, ea addt'l 20sq cm 1 or part thereof [See Physician Procedure note for Specifics] Pain Scale: 0-10 Numeric [Pain] -Is Patient Pain Free? Yes WC - Nurse 3 - General Ulcer D/C NN Start: 04/04/20 11:02 Freq: Status: Active Protocol: Activity Type Activity Date Activity User E-Sign Co-Sign Detail Recorded Client Recorded Date Recorded By Document 04/18/20 09:19 [id number] 04/18/20 09:20 04/18/20 09:19 Wound Care Nurse 3 [Wound Dressing] #1 LLL medial, post op incision -Ulcer Cleansing Wound Cleanser -Foul Odor after Cleansing No -Other Dressing dankins -Primary Dressing Covered/Secured Dry Gauze, with Secured with Tape [Post Procedure Tolerated] -Treatment Response Procedure Tolerated Well Pain Scale: 0-10 Numeric [Pain] -Is Patient Pain Free? Yes - Visit Discharge [Visit Discharge Information] -Discharge Condition Stable -Ambulatory Status Ambulatory -Transportation Private Auto Debridement Note Post-Debridement Measurements/Treatment - Nurse 2 - General Ulcer CM Notes Start: 04/04/20 11:02 Freq: Status: Active Protocol: Activity Type Activity Date Activity User E-Sign Co-Sign Detail Recorded Client Recorded Date Recorded By Document 04/04/20 11:39 [id number] 04/04/20 11:42 Document 04/18/20 08:54 [id number] 04/18/20 08:58 04/04/20 04/18/20 11:39 08:54 Wound Center Nurse 2 #1 LLL medial, post op incision -Time 11:41 08:55 -Correct Patient Yes Yes -Correct Side, Site, Position Yes Yes -Correct Procedure Yes Yes -Procedure Performed Yes Yes -Type of Procedure Debridement Debridement -Clinical Debridement Subcutaneous Subcutaneous -Tissue Removed Subcutaneous Subcutaneous -Post Debridement (cm) - Length 8.8 8.4 -Post Debridement (cm) - Width 4.8 4.0 -Post Debridement (cm) - Depth 1.5 0.8 -Total Square (Post) (cm) 42.24 33.60 -Area of Debridement (cm) - Length 8.8 8.4 -Area of Debridement (cm) - Width 4.8 4.0 -Total Square (Area) (cm) 42.24 33.60 -Tunneling No No -Undermining/Tunneling No No -Circular Undermining No No -Wound/Ulcer Outcome Not Healed Not Healed -Ulcer Cleansing Rinsed/ Rinsed/ Irrigated with Irrigated with Saline Saline -Foul Odor after Cleansing No No -Bioengineered Tissue No No -Bleeding Controlled with Pressure Pressure -Offloading No No -Treatment Response Procedure Procedure Tolerated Well Tolerated Well -Debridement - Subq, 1st 20sq cm Yes Yes -Debridement, SubQ, ea addt'l 20sq cm 2 1 or part thereof Pain Scale: 0-10 Numeric Is Patient Pain Free? Yes Yes - Nurse 3 - General Ulcer D/C NN Start: 04/04/20 11:02 Freq: Status: Active Protocol: Activity Type Activity Date Activity User E-Sign Co-Sign Detail Recorded Client Recorded Date Recorded By Document 04/04/20 11:48 BM [id number] 04/04/20 11:49 BM Document 04/18/20 09:19 DL [id number] 04/18/20 09:20 DL 04/04/20 04/18/20 11:48 09:19 Wound Care Nurse 3 #1 LLL medial, post op incision -Ulcer Cleansing Rinsed/ Wound Cleanser Irrigated with Saline -Foul Odor after Cleansing No No -Primary Dressing Applied Other -Other Dressing moist to dry dankins drsg -Primary Dressing Covered/Secured with Secured with Dry Gauze, Tape,Other Secured with Tape -Other Covering abd Treatment Response Procedure Procedure Tolerated Well Tolerated Well Pain Scale: 0-10 Numeric Is Patient Pain Free? Yes Yes - Visit Discharge Discharge Condition Stable Stable Ambulatory Status Ambulatory Ambulatory Transportation Private Auto [facility] Facility Type Home Health Wound debrided: #1 Left medial leg. Laterality: Left Wound Grade/Stage: 2. Type of Debridement: Excisional debridement Anesthesia Used: 4% Lidocaine Solution Depth: Down to and including healthy tissue, in the subcutaneous layer Percentage of wound debrided: 100 Instrument Used: 7mm curette Tissue Removed: subcutaneous tissue. Severity: Fat Layer Exposed Amount of bleeding with debridement: Mild Bleeding Controlled with: Pressure Patient tolerated procedure well Assessment/Plan Assessment: 1. Nonhealing fasciotomy ulcer left medial leg, s/p closure 01/01/20, with central ulcerations. 2. Hematoma with compartment syndrome left leg s/p fasciotomies. 3. History of compromised skin grafts. 4. MRSA. 5. senior care use of anticoagulation. 6. Lupus. 7. Immunocompromised state due to high risk medication, Methotrexate, for Lupus, currently off Methotrexate. 8. Failed outpatient therapy. Plan: Continue Dakin's dressing changes daily or twice a day depending on the drainage. This is followed by an MENDEZ wrap and Spandigrip for compression. Continue Vancomycin for MRSA. The Creatinine has improved from 1.33 on 04/11/20 to 1.31 from today. Will continue the Vancomycin for 2 more weeks then will pull the PICC line. Prealbumin from 03/23/20 was 25.0. Encourage nutritional supplementation with protein to help the healing process. Keep left leg elevated when sitting. Minimize standing. Continue compression. Followup two weeks. Once the Vancomycin is completed, will evaluate for advanced skin substitues to help with the healing of this ulcer. 111xxx-113xx: [id number] Global Visit - ICD-10 - Z48.89, L97.922, T14.8xxS, T79.A22S, T86.828, A49.02, Z79.01, M32.9, Z79.899
--- NOTE | 2020-04-18 17:24 | PN.PCM_ITS ---
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 History of Wound: Surgery 01/01/20 - Surgical preparation left medial leg with excisional debridement nonhealing fasciotomy MRSA ulcer and 18 cm complex secondary wound closure and placement of AmnioFill placental connective tissue powder, (500 mg). Wound care - Silver to three central ulcerations combined with spandigrip and an MENDEZ wrap. Wound culture from 02/22/20 showed Corynebacterium amycolatum, Kocuria kristinae, and Anaerobic cocci. She was placed on Augmentin and has finished them. Operative culture - negative. She was being treated for preop (12/07/19) MRSA with Doxycycline. She was treated perioperatively with Vancomycin and discharged on Doxycycline. She completed the Doxycycline. Prealbumin from 01/02/20 was 25.6. Encourage nutritional supplementation with protein to help the healing process. Today she denies fever. Her appetite is good. With the three central ulcerations that connect beneath the skin, it was recommended to proceed with operative intervention with surgical preparation left medial leg with incision and drainage and excisional debridement nonhealing infected ulcers. She was in agreeement. It is scheduled for next Saturday03/14/20. Progress of Wound: Central ulcerations that are connected beneath the skin. - Physical Exam Vital Signs Temp Pulse Resp BP Pulse Ox 97.5 F L 105 H 16 145/93 H 96 04/18/20 08:24 04/18/20 08:24 04/18/20 08:24 04/18/20 08:24 03/22/20 00:27 Wound Measurements and Assessment WC - Nurse 1 - General Ulcer Measurement Start: 04/04/20 11:02 Freq: Status: Active Protocol: Activity Type Activity Date Activity User E-Sign Co-Sign Detail Recorded Client Recorded Date Recorded By Document 04/18/20 08:24 MARITA [id number] 04/18/20 08:26 MARITA 04/18/20 08:24 Wound Center Nurse 1 [Ulcer Assessment] #1 LLL medial, post op incision -Combined with other wound No -Current Size (cm) - Length 8.2 -Current Size (cm) - Width 3.7 -Current Size (cm) - Depth 0.8 -Total Square Cm 30.34 -Photo Taken No -Epithelialization Small 1-33% -Tunneling No -Undermining/Tunneling No -Circular Undermining No -Exudate Amt Medium -Exudate Type Serosanguineous -Wound Margin Flat & Intact -Granulation Amt Large (67-100%) -Granulation Quality Red -Slough/Fibrin Yes -Necrosis Amt Small (1-33%) -Necrotic Tissue Type Adherent Slough -Structure Exposed N/A -Texture (Kisha-wound Skin Appearance) Assessed, Localized Edema -Moisture (Kisha-wound Skin Appearance Assessed,Dry/ ) Scaly -Color (Kisha-wound Skin Appearance) Assessed -Temperature (Kisha-wound Skin No Abnormality Appearance) (Pt Warm) -Tenderness on Palpation (Kisha-wound No Skin Appearance) -Ulcer Cleansing Rinsed/ Irrigated with Saline -Foul Odor after Cleansing No -Anesthetic Used 4% Lidocaine Solution [Edema Assessment] -Lower Limb Edema Present No WC - Nurse 2 - General Ulcer CM Notes Start: 04/04/20 11:02 Freq: Status: Active Protocol: Activity Type Activity Date Activity User E-Sign Co-Sign Detail Recorded Client Recorded Date Recorded By Document 04/18/20 08:54 MARITA [id number] 04/18/20 08:58 MARITA 04/18/20 08:54 Wound Center Nurse 2 [Procedure/Treatment] #1 LLL medial, post op incision -Time 08:55 -Correct Patient Yes -Correct Side, Site, Position Yes -Correct Procedure Yes -Procedure Performed Yes -Type of Procedure Debridement -Clinical Debridement Subcutaneous -Tissue Removed Subcutaneous -Post Debridement (cm) - Length 8.4 -Post Debridement (cm) - Width 4.0 -Post Debridement (cm) - Depth 0.8 -Total Square (Post) (cm) 33.60 -Area of Debridement (cm) - Length 8.4 -Area of Debridement (cm) - Width 4.0 -Total Square (Area) (cm) 33.60 -Tunneling No -Undermining/Tunneling No -Circular Undermining No -Wound/Ulcer Outcome Not Healed -Ulcer Cleansing Rinsed/ Irrigated with Saline -Foul Odor after Cleansing No -Bioengineered Tissue No -Bleeding Controlled with Pressure -Offloading No -Treatment Response Procedure Tolerated Well -Debridement - Subq, 1st 20sq cm Yes -Debridement, SubQ, ea addt'l 20sq cm 1 or part thereof [See Physician Procedure note for Specifics] Pain Scale: 0-10 Numeric [Pain] -Is Patient Pain Free? Yes - Nurse 3 - General Ulcer D/C NN Start: 04/04/20 11:02 Freq: Status: Active Protocol: Activity Type Activity Date Activity User E-Sign Co-Sign Detail Recorded Client Recorded Date Recorded By Document 04/18/20 09:19 [id number] 04/18/20 09:20 04/18/20 09:19 Wound Care Nurse 3 [Wound Dressing] #1 LLL medial, post op incision -Ulcer Cleansing Wound Cleanser -Foul Odor after Cleansing No -Other Dressing dankins -Primary Dressing Covered/Secured Dry Gauze, with Secured with Tape [Post Procedure Tolerated] -Treatment Response Procedure Tolerated Well Pain Scale: 0-10 Numeric [Pain] -Is Patient Pain Free? Yes - Visit Discharge [Visit Discharge Information] -Discharge Condition Stable -Ambulatory Status Ambulatory -Transportation Private Auto Debridement Note Post-Debridement Measurements/Treatment - Nurse 2 - General Ulcer CM Notes Start: 04/04/20 11:02 Freq: Status: Active Protocol: Activity Type Activity Date Activity User E-Sign Co-Sign Detail Recorded Client Recorded Date Recorded By Document 04/04/20 11:39 [id number] 04/04/20 11:42 Document 04/18/20 08:54 [id number] 04/18/20 08:58 04/04/20 04/18/20 11:39 08:54 Wound Center Nurse 2 #1 LLL medial, post op incision -Time 11:41 08:55 -Correct Patient Yes Yes -Correct Side, Site, Position Yes Yes -Correct Procedure Yes Yes -Procedure Performed Yes Yes -Type of Procedure Debridement Debridement -Clinical Debridement Subcutaneous Subcutaneous -Tissue Removed Subcutaneous Subcutaneous -Post Debridement (cm) - Length 8.8 8.4 -Post Debridement (cm) - Width 4.8 4.0 -Post Debridement (cm) - Depth 1.5 0.8 -Total Square (Post) (cm) 42.24 33.60 -Area of Debridement (cm) - Length 8.8 8.4 -Area of Debridement (cm) - Width 4.8 4.0 -Total Square (Area) (cm) 42.24 33.60 -Tunneling No No -Undermining/Tunneling No No -Circular Undermining No No -Wound/Ulcer Outcome Not Healed Not Healed -Ulcer Cleansing Rinsed/ Rinsed/ Irrigated with Irrigated with Saline Saline -Foul Odor after Cleansing No No -Bioengineered Tissue No No -Bleeding Controlled with Pressure Pressure -Offloading No No -Treatment Response Procedure Procedure Tolerated Well Tolerated Well -Debridement - Subq, 1st 20sq cm Yes Yes -Debridement, SubQ, ea addt'l 20sq cm 2 1 or part thereof Pain Scale: 0-10 Numeric Is Patient Pain Free? Yes Yes - Nurse 3 - General Ulcer D/C NN Start: 04/04/20 11:02 Freq: Status: Active Protocol: Activity Type Activity Date Activity User E-Sign Co-Sign Detail Recorded Client Recorded Date Recorded By Document 04/04/20 11:48 [facility] [id number] 04/04/20 11:49 [facility] Document 04/18/20 09:19 DL [id number] 04/18/20 09:20 04/04/20 04/18/20 11:48 09:19 Wound Care Nurse 3 #1 LLL medial, post op incision -Ulcer Cleansing Rinsed/ Wound Cleanser Irrigated with Saline -Foul Odor after Cleansing No No -Primary Dressing Applied Other -Other Dressing moist to dry dankins drsg -Primary Dressing Covered/Secured with Secured with Dry Gauze, Tape,Other Secured with Tape -Other Covering abd Treatment Response Procedure Procedure Tolerated Well Tolerated Well Pain Scale: 0-10 Numeric Is Patient Pain Free? Yes Yes - Visit Discharge Discharge Condition Stable Stable Ambulatory Status Ambulatory Ambulatory Transportation Private Auto Private Auto Facility Type Home Health Assessment/Plan Assessment: 1. Nonhealing fasciotomy ulcer left medial leg, s/p closure 01/01/20, with central ulcerations. 2. Hematoma with compartment syndrome left leg s/p fasciotomies. 3. History of compromised skin grafts. 4. MRSA. 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 6. Lupus. 7. Immunocompromised state due to high risk medication, Methotrexate, for Lupus, currently off Methotrexate. Plan: She has three central ulcerations that communicate under the skin. A lot of drainage is noted. Discussed with the patient that the ulcerations will never heal with this much drainage and edema present. Continue Silver dressing changes daily followed by Spandigrip and MENDEZ wrap for compression. She is complaining of burning pain down her left ankle and foot. She states it is waking her up at night because of the pain. She was placed on Neurontin. Completed Doxycycline for preop (12/07/19) MRSA. The operative culture was negative. She was treated with Vancomycin perioperatively and discharged on Doxycycline. She has finished them as well. Prealbumin was 25.3 on 01/02/20. Encourage nutritional supplementation with protein to help the healing process. Keep left leg elevated when sitting. Minimize standing. She is scheduled for surgery next Saturday03/14/20 for surgical preparation left medial leg with incision and drainage and excisional debridement nonhealing infected ulcers. Will leave the wound open and proceed with wound care with the VAC. When stable, can then proceed with delayed closure with skin grafting. Tissue that is debrided will be sent to Pathology for analysis and to Microbiology for culture. A positive culture will necessitate antibiotic therapy. Patient was informed of the risks and complications of the procedure including alternatives to surgery. These were discussed with her personally. She voices understanding and wishes to proceed. Followup two weeks. We discussed the current risks associated with COVID-19. While it is understood that there is a community spread of COVID-19, the risk of garret COVID-19 while at [facility] ([facility]) is very low; however, the risk cannot be completely mitigated because of the community spread of the disease. We discussed in detail the risk of exposure to and/or potential harm posed by the COVID-19 virus with having a surgery/procedure at this time versus the risk of delaying the surgery/procedure. It is not possible to know either the risk of delaying the surgery or procedure or chance of getting an infection with perfect accuracy, but a joint decision was made to proceed at this time with the scheduled surgery/procedure as indicated on the consent form. Patient was notified that we will need to comply with any screening or testing [facility] wishes to perform or that surgery may be delayed for any positive results. Discussed with the patient that I was tested for COVID-19 on 01/21/20 which was negative and on 02/04/20 which was negative and on 02/18/20 which was negative and on 03/03/20 which was negative. My testing regimen at this time is to be COVID-19 tested every 2 weeks or so. Procedure Criteria. Procedure Type: Elective. COVID Risk Discussion: The surgeon/proceduralist and patient have discussed in detail the risk of exposure to and/or potential harm posed by the COVID-19 virus with having a surgery/procedure at this time versus the risk of delaying the surgery/procedure. It is not possible to know either the risk of delaying the surgery or procedure or chance of getting an infection with perfect accuracy, but a joint decision was made between the patient and the surgeon/proceduralist to proceed at this time with the scheduled surgery/procedure as indicated on the consent form.
== END 2020-04-20 23:59 ==
LOC: WC 08:15
PROVIDERS: Family Provider Family Medicine; PCP Family Medicine; Referring Provider Surgery; Visit Provider Internal Medicine
DX: L97.822 Non-pressure chronic ulcer of other part of left lower leg with fat layer exposed (principal); M79.669 Pain in unspecified lower leg; Z79.01 Long term (current) use of anticoagulants; M32.9 Systemic lupus erythematosus, unspecified; S80.12XS Contusion of left lower leg, sequela; X58.XXXS Exposure to other specified factors, sequela; T86.829 Unspecified complication of skin graft (allograft) (autograft); Y83.2 Surgical operation with anastomosis, bypass or graft as the cause of abnormal reaction of the patient, or of later complication, without mention of misadventure at the time of the procedure; Z86.14 Personal history of Methicillin resistant Staphylococcus aureus infection
CPT/HCPCS: 11042; 11045; 80053; 80202; 85027; 85652; 86140

== ENCOUNTER 2020-04-25 13:24 | Outpatient (RCR) | payer MEDICAID, SELFPAY ==
[2020-04-21 00:27] VITALS: BP 145/93; PULSE 105; RESP 16; TEMP 36.4; O2SAT 96; BMI 52.0
--- NOTE | 2020-04-22 11:44 | WC ---
Order provided by Dr Kent this am to continue IV Vancomycin for another 2 weeks for a total of 6 weeks via PiCC line. Once IV is completed, [facility] can D/C PICC line. Left a message with an Karely at [facility] at [phone] to inform him of this and that patient's PICC line will need to be changed 2x/week due to skin irritation. [facility] will manage this at home for her. Pt was notified of the update to continue IV ATB for 2 more weeks and to not allow anyone to D/C PICC this weekend. She verbalized understanding.
[2020-04-25 15:41] LABS: Hematocrit 37.8 % (37-47); Hemoglobin 11.3 g/dL (12.0-15.0); Mean Corp Hgb Conc 29.9 g/dL (32-36); Mean Corpuscular Hgb 27.4 pg (27.0-32.0); Mean Corpuscular Volume 91.5 fL (81-99); Mean Platelet Vol. 10.9 fl (6.2-12.0); Platelet Count 144 K/mm3 (150-450); RBC Distribution Width CV 14.3 % (11.6-14.6); RBC Distribution Width SD 48.1 fl (35.1-43.9); Red Blood Count 4.13 M/mm3 (4.2-5.4); White Blood Count 7.8 K/mm3 (4.4-11.0)
[2020-04-25 15:43] LABS: Erythrocyte Sedimentation Rate 89 mm/hr (0-20)
[2020-04-25 15:48] LABS: ALB/GLOB Ratio 0.6 RATIO (0.9-2.4); AST(SGOT) 16 U/L (15-37); Alanine Aminotransfer ALT/SGPT 22 U/L (13-56); Albumin, Serum 3.1 g/dL (3.2-5.0); Alkaline Phosphatase 108 U/L (45-117); Anion Gap 8 (5-15); BUN 14 mg/dL (7-18); BUN/Creat Ratio 10.6 RATIO (10-20); Chloride 102 mmol/L (98-107); Creatinine, Serum 1.32 mg/dL (0.55-1.02); EST Glomerular Filtration Rate 45 mL/min (>60); Est Glom Filt Rate - Afr Amer 55 mL/min (>60); Estimated Creatinine Clearance 48.26 ml/min; Glucose 178 mg/dL (74-106); Potassium 3.6 mmol/L (3.5-5.1); Protein, Total 8.1 g/dL (6.4-8.2); Sodium Level 137 mmol/L (136-145)
--- NOTE | 2020-05-03 17:25 | WC ---
05/02/20 Patient arrived 25 minutes late for her appointment and had not informed the center that she was running late. Due to the tight schedule of the day the provider decided that the patient would have to reschedule. The Patient was informed and was offered the opportunity to be seen by another provider later in the week. The patient said that was unacceptable and that she would seek care elsewhere. Her physician was notified.
== END 2020-05-21 23:59 ==
LOC: WC 13:24
PROVIDERS: Family Provider Family Medicine; PCP Family Medicine; Referring Provider Surgery; Visit Provider Internal Medicine
DX: L97.922 Non-pressure chronic ulcer of unspecified part of left lower leg with fat layer exposed (principal); Z53.29 Procedure and treatment not carried out because of patient's decision for other reasons
CPT/HCPCS: 80053; 85027; 85652; 86140

== ENCOUNTER → 2020-04-28 12:09 | Outpatient (CLI) | payer MEDICAID, SELFPAY ==
[2020-04-21 00:27] VITALS: BMI 52.0
[2020-04-28 12:39] LABS: Vancomycin, Trough Level 32.7 ug/mL (5.0-15.0)
== END ==
PROVIDERS: PCP Family Medicine; Referring Provider Surgery; Visit Provider Surgery
DX: L97.922 Non-pressure chronic ulcer of unspecified part of left lower leg with fat layer exposed (principal)
CPT/HCPCS: 80202

== ENCOUNTER → 2020-05-02 11:07 | Outpatient (CLI) | payer MEDICAID, SELFPAY ==
[2020-04-21 00:27] VITALS: BMI 52.0
[2020-05-02 11:53] LABS: Hematocrit 34.1 % (37-47); Hemoglobin 10.5 g/dL (12.0-15.0); Mean Corp Hgb Conc 30.8 g/dL (32-36); Mean Corpuscular Volume 90.9 fL (81-99); Mean Platelet Vol. 11.7 fl (6.2-12.0); Platelet Count 137 K/mm3 (150-450); RBC Distribution Width CV 14.5 % (11.6-14.6); RBC Distribution Width SD 48.3 fl (35.1-43.9); Red Blood Count 3.75 M/mm3 (4.2-5.4); White Blood Count 9.6 K/mm3 (4.4-11.0)
[2020-05-02 11:54] LABS: Erythrocyte Sedimentation Rate 68 mm/hr (0-20)
[2020-05-02 16:08] LABS: ALB/GLOB Ratio 0.6 RATIO (0.9-2.4); AST(SGOT) 11 U/L (15-37); Alanine Aminotransfer ALT/SGPT 20 U/L (13-56); Alkaline Phosphatase 115 U/L (45-117); Anion Gap 6 (5-15); BUN 16 mg/dL (7-18); BUN/Creat Ratio 14.8 RATIO (10-20); Calcium,Total 9.1 mg/dL (8.5-10.1); Chloride 103 mmol/L (98-107); Creatinine, Serum 1.08 mg/dL (0.55-1.02); EST Glomerular Filtration Rate 57 mL/min (>60); Est Glom Filt Rate - Afr Amer 69 mL/min (>60); Globulin 4.8 g/dL (2.2-4.2); Glucose 86 mg/dL (74-106); Potassium 3.6 mmol/L (3.5-5.1); Protein, Total 7.8 g/dL (6.4-8.2); Sodium Level 138 mmol/L (136-145)
== END ==
PROVIDERS: PCP Family Medicine; Visit Provider Surgery
DX: L97.922 Non-pressure chronic ulcer of unspecified part of left lower leg with fat layer exposed (principal)
CPT/HCPCS: 80053; 80202; 85027; 85652; 86140

== ENCOUNTER 2020-05-24 18:43 | Observation (INO) | payer MEDICAID, SELFPAY ==
[2020-04-21 00:27] VITALS: BMI 52.0
[2020-05-24] VITALS (8 sets, daily range): BP systolic 98–131; BP diastolic 60–88; PULSE 83–105; RESP 16–30; TEMP 36.2–37.1; O2SAT 95–98; BMI 54.1; BMI 53.6
--- NOTE | 2020-05-24 18:52 | EKG12_ITS ---
Test Reason : DYSRHYTHMIA Blood Pressure : / mmHG Vent. Rate : 105 BPM Atrial Rate : 105 BPM P-R Int : 134 ms QRS Dur : 092 ms QT Int : 328 ms P-R-T Axes : 049 074 075 degrees QTc Int : 433 ms Sinus tachycardia Otherwise normal ECG Confirmed by BLAKE LEON, MILY ([id number]), manager editorial JOSE PADGETT ([id number]) on 05/26/2020 11:27:21 AM Referred By: MARTHA Confirmed By:MILY LOZANO MD
--- NOTE | 2020-05-24 19:15 | RAD_ITS ---
STUDY: X-RAY CHEST REASON FOR EXAM: Female, 49 years old. Cough, shortness of breath, and right sided chest pain x1 day. TECHNIQUE: AP portable COMPARISON: 04/11/2020 FINDINGS: The lungs are clear and expanded. There is no demonstrated pleural abnormality. Heart is enlarged. Normal mediastinum and xiomara. Normal visualized pulmonary arteries. Normal visualized aortic arch and descending thoracic aorta. Normal visualized thoracic spine. Normal visualized ribs, clavicles, and shoulders. Moderate-sized hiatal hernia with air-fluid level. There is no demonstrated abnormality of the visualized soft tissue structures of the upper abdomen. No significant changes since prior exam RAD/Chest 1 View (Portable) IMPRESSION: No acute cardiopulmonary pathology Electronically Signed: Eric Gastelum MD at 19:32 EST , Service support ,
[2020-05-24 19:21] LABS: Absolute Lymphocyte Count 2.27 X10^3/uL (0.83-4.51); Absolute Neutrophil Count 6.5 X10^3/uL (2.0-7.7); Basophil# 0.05 X10^3/uL; Basophil% 0.5 % (0-1); Eosinophil# 0.23 X10^3/uL; Eosinophils% 2.3 % (0-5); Hematocrit 38.6 % (37-47); Hemoglobin 11.9 g/dL (12.0-15.0); Lymphocyte # 2.27 X10^3/ul (4.0); Lymphocyte % 23.2 % (19-41); Mean Corp Hgb Conc 30.8 g/dL (32-36); Mean Corpuscular Hgb 27.9 pg (27.0-32.0); Mean Corpuscular Volume 90.6 fL (81-99); Mean Platelet Vol. 9.7 fl (6.2-12.0); Monocyte# 0.68 X10^3/uL; Monocyte% 6.9 % (0-10); NRBC Flagged by Analyzer 0 % (0-5); Neutrophil # 6.53 X10^3/uL (2.7-7.7); Neutrophil % 66.8 % (47-70); Platelet Count 353 K/mm3 (150-450); RBC Distribution Width CV 15.2 % (11.6-14.6); RBC Distribution Width SD 50.1 fl (35.1-43.9); Red Blood Count 4.26 M/mm3 (4.2-5.4); White Blood Count 9.8 K/mm3 (4.4-11.0)
[2020-05-24 19:31] LABS: International Normalized Ratio 3.4; Prothrombin Time (Protime)PT. 33.8 SECONDS (11.7-14.9)
[2020-05-24 19:37] LABS: Anion Gap 6 (5-15); BUN 12 mg/dL (7-18); BUN/Creat Ratio 12.2 RATIO (10-20); Calcium,Total 9.5 mg/dL (8.5-10.1); Chloride 105 mmol/L (98-107); Creatinine, Serum 0.98 mg/dL (0.55-1.02); EST Glomerular Filtration Rate 64 mL/min (>60); Est Glom Filt Rate - Afr Amer 77 mL/min (>60); Estimated Creatinine Clearance 65.01 ml/min; Glucose 94 mg/dL (74-106); Sodium Level 139 mmol/L (136-145)
[2020-05-24 19:39] LABS: BNP,B-Type NATRIURETIC PEPTIDE 12.6 pg/mL (0-100)
--- NOTE | 2020-05-24 20:25 | ED.VIS.GEN ---
History of Present Illness Chief Complaint: Shortness of Breath Informant: Patient Onset: Days Current Severity: Mild Maximum Severity: Mild Narrative: Patient presents complaining of a runny nose and a harsh dry nonproductive cough and a sense of shortness of breath that began a few days ago it was associated with body aches at that time, indicates about a month ago she was admitted [facility] for pneumonia she was has been tested multiple times for coronavirus and she is always been negative. No recent exposures to coronavirus. 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 she is on Coumadin her INR subtherapeutic she has an ulcer that is healing to her left leg, Because of the persistent nature of the harsh cough she came in for evaluation, on evaluation her vital signs are unremarkable she is afebrile her pulse ox is 99% on room air she has a dry cough here Past Medical History - Allergies and Home Meds Allergies/Adverse Reactions: Allergies adhesive tape Adverse Reaction (Verified 05/24/20 18:44) Rash Primary Care Physician: Tarah Dubon DO [Primary Care Provider] - Past Medical History: - - It was a prior PE leg ulcer recent pneumonia treated at [facility] discharged on doxycycline and includes as above Surgical History: - - bilateral knee replacement Smoking Status: Never smoker - Family History Maternal Family History: Reports: Heart Disease Paternal Family History: Reports: - Review of Systems General: Denies: Chills, Fever, Sweats Eyes: Denies: Visual changes - bilaterally, Diplopia ENT: Denies: Rhinorrhea, Sore throat Cardiovascular: Denies: Chest pain, Palpitations Respiratory: Reports: Dyspnea, Cough. Denies: Dyspnea on exertion Gastrointestinal: Denies: Abdominal pain, Nausea, Vomiting, Diarrhea, Melena, Hematochezia Genitourinary: Denies: Dysuria, Hematuria, Frequency Musculoskeletal: Denies: Back pain, Extremity Pain Skin: Denies: Rash, Wounds Neurological: Denies: Headache, Weakness, Numbness Physical Exam Vital Signs/Narrative: Vital Signs Temp Pulse Resp BP Pulse Ox 05/24/20 19:45 98.7 F 97 30 H 118/77 97 05/24/20 19:44 98.7 F 99 30 H 118/77 96 05/24/20 18:44 97.2 F L 105 H 18 122/87 H 98 General: Well nourished, Well developed, No Acute Distress Head: Normocephalic, Atraumatic Eyes: Perrl, EOMI ENT: Moist mucous membranes, No rhinorrhea Neck: Supple, Nontender Cardiovascular: Regular rate, Regular rhythm, No murmurs Respiratory: No distress, CTA bilaterally, Chest nontender Abdomen: Soft, Nontender, Nondistended, Normal bowel sounds Back: Nontender, Normal Inspection Extremities: Nontender, No edema Skin: Normal color, No rash, - - The left leg ulcer has a dressing on it she states it is fine she does not wish to have that evaluated Neurological: Alert, Oriented x3, Cranial nerves II-XII grossly intact, Normal Strength, Normal Sensation Psychological: Normal affect, Normal Mood Diagnostic/Tx/Re-eval - Medical Decision Making Patient's resting comfortably in the bed her vital signs are all unremarkable she has slight nasal congestion, her lungs are clear the chest x-ray and all of her screening labs are unremarkable, the patient's EKG shows a sinus tachycardia 105 no acute injury pattern apparent, her INR is therapeutic at 3.5 discussed the long differential for her harsh cough, I explained to her we could do a CTA to look for PE or other occult life-threatening condition such as pneumonia etc. conditions she declined that, we discussed inpatient versus outpatient management she feels that her harsh cough and her shortness of breath and her recent pneumonia does not wish to be discharged home, she does agree to a repeat coronavirus test I have asked the hospital see her for further management admission Final impression harsh cough etiology unclear Covid testing pending ED Disposition - Plan for ED Patient: Diagnosis: Cough dyspnea recent pneumonia Referrals: Tarah Dubon DO [Primary Care Provider] -
--- NOTE | 2020-05-24 20:39 | PCM.HP.STD ---
Problem List (1) Suspected COVID-19 virus infection Status: Acute (2) Morbid obesity Status: Chronic (3) Sinus tachycardia Status: Chronic (4) RLS (restless legs syndrome) Status: Chronic (5) Anxiety and depression Status: Chronic (6) Leg wound, left Status: Chronic Qualifiers: Encounter type: subsequent encounter Qualified Code(s): S81.802D - Unspecified open wound, left lower leg, subsequent encounter (7) KIKI (obstructive sleep apnea) Status: Chronic (8) GERD (gastroesophageal reflux disease) Status: Chronic Qualifiers: Esophagitis presence: esophagitis presence not specified Qualified Code(s): K21.9 - Gastro-esophageal reflux disease without esophagitis (9) Rheumatoid arthritis Status: Chronic Qualifiers: Rheumatoid arthritis location: unspecified site (10) MTHFR mutation Status: Chronic (11) Lupus anticoagulant disorder Status: Chronic (12) History of venous thromboembolism Status: Chronic History of Present Illness Date of Admission: 05/24/20 Chief Complaint: Fever, chills, N/V, headache, diarrhea, cough, dyspnea The patient is a 49 y/o F w/ PMHx: Morbid Obesity, KIKI on CPAP q HS, GERD, Fe Deficiency anemia, Sinus tachycardia, Rheumatoid arthritis, Hx DVT/PE on coumadin w/ MTHFR/Lupus anticoagulant, Anxiety and Depression, RLS, Chronic LLE Wound following with [facility] (recently completed PICC IV Abx 2 weeks prior) who presents to the [facility] ED on 05/24/20 with history of onset dry cough with throat tickle, dyspnea, pleuritic chest discomfort with worsening discomfort, sharp, 10/10 with coughing and increased respiratory effort, nauseas, emesis, loose stools, throbbing frontal headache, diffuse body and muscle aches, diaphoresis without alteration to sense of taste or smell, not improving, worsening x ~ 48 hours, unable to care for herself at home prompting ED presentation. She notes living with her mother who has not been ill. Denies any COVID + contacts. In the ED work-up included T 98.7, heart rate 99, BP 118/77, respiratory rate 30, 96% on 2 L nasal cannula, CBC with WC 9.8, hemoglobin 11.9, platelet 353 without market shift, INR 3.4, unremarkable BMP, troponin less than 0.015, BNP 12.6, Covid testing initial negative, chest x-ray with no acute cardiopulmonary findings. In the ED patient ministered Zofran, morphine and albuterol therapy. ED physician noted patient unable to care for herself at home therefore requested observation. Past Medical History Past Medical History (Chronic Problems): Chronic Problems Morbid obesity (Chronic) Sinus tachycardia (Chronic) RLS (restless legs syndrome) (Chronic) Anxiety and depression (Chronic) Leg wound, left (Chronic) KIKI (obstructive sleep apnea) (Chronic) GERD (gastroesophageal reflux disease) (Chronic) Rheumatoid arthritis (Chronic) MTHFR mutation (Chronic) Lupus anticoagulant disorder (Chronic) History of venous thromboembolism (Chronic) Anxiety (Chronic) Bilateral lower extremity edema (Chronic) Ulcer of left lower extremity (Chronic) Ulcer of left lower extremity with fat layer exposed (Chronic) 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) Lupus (Chronic) 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) on Methotrexate for Lupus High risk medication use (Chronic) on Methotrexate for Lupus FPC current use of anticoagulant (Chronic) Allergies adhesive tape Adverse Reaction (Verified 05/24/20 18:44) Rash Home Medications: Ambulatory Orders Medication Instructions Recorded Aripiprazole [Abilify] 5 mg PO DAILY 07/10/18 Omeprazole 40 mg PO BID 07/10/18 Bupropion HCl [Bupropion Xl] 300 mg PO DAILY 08/25/18 Ropinirole HCl [Ropinirole ER] 2 mg PO QHS 08/25/18 Folic Acid 1 mg PO DAILY 01/23/19 Ferrous Sulfate 325 mg PO DAILY 03/27/19 Lactobacillus Acidophilus 1 ea PO BID 03/27/19 [Acidophilus] Venlafaxine XR [Effexor Xr] 225 mg PO DAILY 04/10/19 traZODone [Desyrel] 150 mg PO QHS 04/10/19 Prednisone 8 mg PO DAILY 05/18/19 Metoprolol(XL)Succ [Toprol Xl 50 mg PO DAILY tab 12/30/19 (Beta Christin)] Albuterol IH (ProAir) [Proair Hfa] 1 puff INHALATION Q4H PRN PRN #1 01/26/20 inhaler Famotidine [Acid Controller] 20 mg PO QHS 03/04/20 Warfarin [Coumadin] 5 mg PO DAILY 03/04/20 busPIRone [Buspar] 10 mg PO PRN PRN 03/04/20 Diazepam [Valium] 5 mg PO 4X/DAY PRN PRN #30 tab 03/24/20 Oxycodone HCl/Acetaminophen 1 tab PO Q4H PRN 7 Days #40 tab 03/24/20 [Oxycodone-Acetaminophen 5-325] proMETHazine tablet [Phenergan 25 mg PO Q4H PRN PRN tab 03/24/20 tablet] Surgical History: - - Bilateral total knee replacement, hysterectomy, history of a pericardial window, left lower extremity compartment syndrome intervention with fasciotomies with several follow-up surgeries. 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 Smoking Status: Never smoker Tobacco Use: Non-smoker Alcohol: None Drugs: None - *Family History Maternal History Items: Cancer - Mother with a history of lung cancer with tobacco use., Heart Disease Paternal History Items: - - Patient denies any market paternal family history including heart disease, diabetes, cancer but states she does not know her father well. Review of Systems Constitutional: Reports: Anorexia, Chills, Fever, Malaise, Weakness, Fatigue. Denies: Weight Change HEENT: Reports: Head Aches. Denies: Sinus Congestion, Sinus Drainage Cardiovascular: Reports: Chest Pain. Denies: Chest Pressure, Chest Tightness, Light Headedness, Orthopnea, Palpitations, Syncope Respiratory: Reports: Cough, Pleuritic Pain, Shortness of Breath, Shortness of breath at rest, Shortness of breath upon exertion. Denies: Sputum production, Wheezing Gastrointestinal: Reports: Diarrhea, Nausea, Vomiting. Denies: Abdominal Pain Genitourinary: Denies: Dysuria Musculoskeletal: Reports: Joint Pain, Muscle pain. Denies: Joint Tenderness Skin: Denies: Rash, Wounds Neurological: Denies: Numbness, Tingling, Focal weakness Psychiatric: Reports: Anxiety, Depression. Denies: Homicidal Ideations, Suicidal Ideations Endocrine: Reports: Heat/ Cold Intolerance Hematologic/ Lymphatic: Denies: Easy Bruising, Easy Bleeding VTE Information - Inpt Only VTE Present on Admission: No VTE Mechan Device Prophylaxis: SCD's VTE Pharm Prophylaxis ordered?: No Reason prophylaxis not ordered:: Treatment Not Indicated - Patient therapeutic on Coumadin, will continue. Patient Problems: Active and Suspected Problems Suspected COVID-19 virus infection (Acute) Subjective: Patient seated upright in ED bed, fatigued appearance otherwise no obvious distress. Objective: Physical Examination: General: awake, alert, oriented x 3 and cooperative, seated upright in the ED bed in no apparent distress. Skin: normal color, turgor, no icterus, cyanosis. HEENT: AT/NC, EOMI, PERRLA, mildly dry MM, no carotid bruits or JVD noted. Lungs: CTA bilaterally, moderate effort, moderate decrease BL bases, no rales, ronchi or wheezing. Heart: Regular rate and rhythm; no gallop, rub audible. Abdomen: soft, morbidly obese, NTTP, ND, mildly hyperactive BS, difficult to assess HSM secondary to habitus. Extremities: no cyanosis, clubbing, or edema. Neurological: patient awake, alert, oriented x 3; cognitive function intact; pupils equally reactive to light and accomodation; cranial nerves II-XII grossly normal, moving all 4 extremities, no focal deficits, strength mildly to moderately global decreased but patient more fatigued than anything. Psychiatric: affect appears fatigued otherwise normal, no acute evidence of depressive or anxiety feelings. - Physical Exam Vitals/I&O's: Vital Signs Temp Pulse Resp BP Pulse Ox 98.7 F 97 30 H 118/77 97 05/24/20 19:45 05/24/20 19:45 05/24/20 19:45 05/24/20 19:45 05/24/20 19:45 Oxygen Flow Rate (L/min) 2 Oxygen Delivery Method Nasal Cannula Weight: 335 lb 12.224 oz Body Mass Index (BMI) 54.1 Finger Stick Blood Glucose 115 Laboratory Results 05/24/20 19:05: WBC 9.8, RBC 4.26, Hgb 11.9 L, Hct 38.6, MCV 90.6, MCH 27.9, MCHC 30.8 L, RDW Std Deviation 50.1 H, RDW Coeff of Chepe 15.2 H, Plt Count 353, MPV 9.7, Immature Gran % (Auto) 0.300, Neut % (Auto) 66.8, Lymph % (Auto) 23.2, Beauregard % (Auto) 6.9, Eos % (Auto) 2.3, Baso % (Auto) 0.5, Absolute Neuts (auto) 6.5, Absolute Lymphs (auto) 2.27, Nucleated RBC % 0 05/24/20 19:05: PT 33.8 H, INR 3.4 05/24/20 19:05: Sodium 139, Potassium 4.0, Chloride 105, Carbon Dioxide 28.0, Anion Gap 6, BUN 12, Creatinine 0.98, Estim Creat Clear Calc 65.01, Est GFR (MDRD) Af Amer 77, Est GFR (MDRD) Non-Af 64, BUN/Creatinine Ratio 12.2, Glucose 94, Calcium 9.5, Troponin I < 0.015 05/24/20 19:05: B-Natriuretic Peptide 12.6 Assessment/Plan All Active Problems Left leg pain (Acute) Suspected COVID-19 virus infection (Acute) MRSA (methicillin resistant Staphylococcus aureus) (Acute) Sinus tachycardia (Acute) Open wound of left lower extremity (Acute) Hematoma (Acute) Compartment syndrome of left lower extremity (Acute) The patient is a 49 y/o F w/ PMHx: Morbid Obesity, KIKI on CPAP q HS, GERD, Fe Deficiency anemia, Sinus tachycardia, Rheumatoid arthritis, Hx DVT/PE on coumadin w/ MTHFR/Lupus anticoagulant, Anxiety and Depression, RLS, Chronic LLE Wound following with [facility] who presents to the [facility] ED on 05/24/20 with history of onset dry cough with throat tickle, dyspnea, pleuritic chest discomfort with worsening discomfort, sharp, 10/10 with coughing and increased respiratory effort, nauseas, emesis, loose stools, throbbing frontal headache, diffuse body and muscle aches, diaphoresis. 1. Dyspnea, Cough, Subjective Fever, Chills, N/V/D, Headache, Unclear Etiology, Possibly Acute Viral Syndrome, COVID-19 although negative initial testing: With several symptoms consistent with coronavirus however initial testing negative, to be cautious given less than 48 hours will admit to the Covid unit, will maintain on oxygen with wean as tolerated to room air, continue PRN albuterol, HOB, IS parameters w/ pending sputum cultures and urine antigens, will obtain procalcitonin, CRP, CPK, Ferritin, LDH, continue supportive care including q 2 hour turning including prone given no prone bed availability and judicious hydration. If patient continues to remain clinically stable would plan discharge to home and may consider continued quarantine versus repeat testing. 2. Left lower extremity chronic wound: Patient with history of compartment syndrome status post fasciotomies with several follow-up surgeries, recently completed IV antibiotic therapy via PICC 2 weeks prior to current presentation, will request wound RN evaluation, continue dressing care. Last dressing evaluation by healthcare provider was the prior . 3. History of DVT, PE with MTHFR/lupus anticoagulant: We will continue patient Coumadin with INR trending, therapeutic upon presentation. 4. Anxiety and depression: We will continue patient home Abilify, bupropion, BuSpar, Valium, venlafaxine and trazodone regimen, denied having bipolar disorder. 5. Morbid Obesity: Weight loss and lifestyle changes encouraged. 6. Rheumatoid arthritis: We will continue patient home steroid and pain regimen, given stable appearing with no hypoxia or evidence of dyspnea upon evaluation would defer any steroid alteration at this time. 7. RLS: We will continue patient home Requip regimen. 8. GERD: We will continue patient home omeprazole regimen. 9. Chronic sinus tachycardia: We will continue patient home metoprolol regimen. 10. KIKI: CPAP nightly. 11. DVT prophylaxis: SCDs, continue Coumadin with INR trending as noted. OBSV E&M: 94162 Initial observation care L3
[2020-05-24 22:08] LABS: Probe Check PASS; Specimen Processing Control PASS
[2020-05-24] MEDS: Ondansetron 4 MG/2 ML Vial IV (22:47)
[2020-05-24] MEDS: Morphine 4 MG/ML Syringe IV (22:48)
[2020-05-25] VITALS (14 sets, daily range): BP systolic 102–127; BP diastolic 59–79; PULSE 93–107; RESP 16–20; TEMP 36.6–36.8; O2SAT 88–96
[2020-05-25] MEDS: Pantoprazole Sodium 40 MG Tablet PO ×2 (00:34→07:58)
[2020-05-25] MEDS: Pramipexole Di-HCl 0.25 MG Tablet PO ×3 (00:34→12:15)
[2020-05-25 00:35] LABS: Procalcitonin 0.05 ng/mL (0.00-0.09)
[2020-05-25] MEDS: BENZOCAINE/MENTHOL 1 LOZENGE MUCOUS MEM (00:37)
[2020-05-25 00:54] LABS: Ferritin 48 ng/mL (8-252); LDH 179 U/L (84-246)
[2020-05-25] MEDS: Morphine 2 MG/ML Syringe IV (03:26)
[2020-05-25] MEDS: 0.9% Saline Lock 10 ML Syringe IV (03:27)
[2020-05-25 07:34] LABS: Absolute Lymphocyte Count 2.56 X10^3/uL (0.83-4.51); Absolute Neutrophil Count 5.4 X10^3/uL (2.0-7.7); Basophil# 0.05 X10^3/uL; Basophil% 0.5 % (0-1); Eosinophil# 0.38 X10^3/uL; Eosinophils% 4.1 % (0-5); Hematocrit 37.7 % (37-47); Hemoglobin 11.2 g/dL (12.0-15.0); Lymphocyte # 2.56 X10^3/ul (4.0); Lymphocyte % 27.9 % (19-41); Mean Corp Hgb Conc 29.7 g/dL (32-36); Mean Corpuscular Hgb 27.4 pg (27.0-32.0); Mean Corpuscular Volume 92.2 fL (81-99); Mean Platelet Vol. 9.4 fl (6.2-12.0); Monocyte# 0.78 X10^3/uL; Monocyte% 8.5 % (0-10); NRBC Flagged by Analyzer 0 % (0-5); Neutrophil # 5.37 X10^3/uL (2.7-7.7); Neutrophil % 58.8 % (47-70); Platelet Count 316 K/mm3 (150-450); RBC Distribution Width CV 15.3 % (11.6-14.6); RBC Distribution Width SD 51.6 fl (35.1-43.9); Red Blood Count 4.09 M/mm3 (4.2-5.4); White Blood Count 9.2 K/mm3 (4.4-11.0)
[2020-05-25 07:45] LABS: International Normalized Ratio 2.8; Prothrombin Time (Protime)PT. 28.9 SECONDS (11.7-14.9)
[2020-05-25] MEDS: oxyCODONE 5 MG Tablet PO (07:56)
[2020-05-25] MEDS: buPROPion (XL) 300 MG TABLET.XL PO (07:57)
[2020-05-25] MEDS: Ferrous Sulfate 325 MG Tablet PO (07:57)
[2020-05-25] MEDS: ARIPiprazole 5 MG Tablet PO (07:57)
[2020-05-25] MEDS: Venlafaxine XR 75 MG Capsule 225 MG PO (07:57)
[2020-05-25] MEDS: Metoprolol(XL)Succ 50 MG Tablet PO (07:58)
[2020-05-25] MEDS: Acetaminophen 325 MG Tablet 650 MG PO (07:58)
[2020-05-25] MEDS: Folic Acid 1 MG Tablet PO (07:58)
[2020-05-25 08:11] LABS: ALB/GLOB Ratio 0.6 RATIO (0.9-2.4); AST(SGOT) 18 U/L (15-37); Alanine Aminotransfer ALT/SGPT 22 U/L (13-56); Albumin, Serum 2.9 g/dL (3.2-5.0); Alkaline Phosphatase 101 U/L (45-117); Anion Gap 6 (5-15); BUN 14 mg/dL (7-18); BUN/Creat Ratio 13.9 RATIO (10-20); Calcium,Total 9.1 mg/dL (8.5-10.1); Chloride 101 mmol/L (98-107); Creatinine, Serum 1.01 mg/dL (0.55-1.02); EST Glomerular Filtration Rate 62 mL/min (>60); Est Glom Filt Rate - Afr Amer 75 mL/min (>60); Estimated Creatinine Clearance 63.08 ml/min; Globulin 4.8 g/dL (2.2-4.2); Glucose 86 mg/dL (74-106); Protein, Total 7.7 g/dL (6.4-8.2); Sodium Level 135 mmol/L (136-145)
--- NOTE | 2020-05-25 11:36 | DCINST_ITS ---
- Discharge Diagnoses Current Active Problems: Current Active and Chronic Problems Suspected COVID-19 virus infection (Acute) Morbid obesity (Chronic) Sinus tachycardia (Chronic) RLS (restless legs syndrome) (Chronic) Anxiety and depression (Chronic) Leg wound, left (Chronic) KIKI (obstructive sleep apnea) (Chronic) GERD (gastroesophageal reflux disease) (Chronic) Rheumatoid arthritis (Chronic) MTHFR mutation (Chronic) Lupus anticoagulant disorder (Chronic) History of venous thromboembolism (Chronic) You will use the following diet at home:: Cardiac Your food should be the consistency of: Regular Your liquids should be the consistency of: Regular/Thin Discharge Activity: Return to Normal Activity Allergies/Adverse Reactions: Allergies adhesive tape Adverse Reaction (Verified 05/24/20 18:44) Rash Medications to take at Discharge Aripiprazole [Abilify] 5 mg PO DAILY 07/10/18 Omeprazole 40 mg PO BID 07/10/18 Bupropion HCl [Bupropion Xl] 300 mg PO DAILY 08/25/18 Ropinirole HCl [Ropinirole ER] 2 mg PO QHS 08/25/18 Folic Acid 1 mg PO DAILY 01/23/19 Ferrous Sulfate 325 mg PO DAILY 03/27/19 Lactobacillus Acidophilus [Acidophilus] 1 ea PO BID 03/27/19 Venlafaxine XR [Effexor Xr] 225 mg PO DAILY 04/10/19 traZODone [Desyrel] 150 mg PO QHS 04/10/19 Prednisone 8 mg PO DAILY 05/18/19 Metoprolol(XL)Succ [Toprol Xl (Beta Christin)] 50 mg PO DAILY tab 12/30/19 Albuterol IH (ProAir) [Proair Hfa] 1 puff INHALATION Q4H PRN PRN #1 inhaler 01/26/20 Famotidine [Acid Controller] 20 mg PO QHS 03/04/20 Warfarin [Coumadin] 5 mg PO DAILY 03/04/20 busPIRone [Buspar] 10 mg PO PRN PRN 03/04/20 Diazepam [Valium] 5 mg PO 4X/DAY PRN PRN #30 tab 03/24/20 Oxycodone HCl/Acetaminophen [Oxycodone-Acetaminophen 5-325] 1 tab PO Q4H PRN 7 Days #40 tab 03/24/20 proMETHazine tablet [Phenergan tablet] 25 mg PO Q4H PRN PRN tab 03/24/20 Acetaminophen [Tylenol Tablet] 650 mg PO Q6H PRN PRN tab 05/25/20 Primary Care Physician: Tarah Dubon DO [Primary Care Provider] - Please follow up with your Primary Care Physician in: 1-2 weeks Test Results: Test results from this visit will be discussed in further detail at your follow- up appointment, if applicable. Proposed Discharge Date: 05/25/20
--- NOTE | 2020-05-25 13:24 | PCM.DC.SUM ---
<Edgar Howard - Last Filed: 05/25/20 14:20> Discharge Date and Diagnosis - Problem List Patient Problems: Active and Suspected Problems Suspected COVID-19 virus infection (Acute) Date of Admission: 05/24/20 Date of Discharge: 05/25/20 - Primary Discharge Diagnosis Acute Problems: Active Problems COVID19 ruled out Acute viral URI - Secondary Discharge Diagnosis Chronic Problems: Chronic Problems Morbid obesity (Chronic) Sinus tachycardia (Chronic) RLS (restless legs syndrome) (Chronic) Anxiety and depression (Chronic) Leg wound, left (Chronic) KIKI (obstructive sleep apnea) (Chronic) GERD (gastroesophageal reflux disease) (Chronic) Rheumatoid arthritis (Chronic) MTHFR mutation (Chronic) Lupus anticoagulant disorder (Chronic) History of venous thromboembolism (Chronic) Anxiety (Chronic) Bilateral lower extremity edema (Chronic) Ulcer of left lower extremity (Chronic) Ulcer of left lower extremity with fat layer exposed (Chronic) 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) Lupus (Chronic) 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) on Methotrexate for Lupus High risk medication use (Chronic) 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) Hospital Course and Treatment Imaging Results: RAD/Chest 1 View (Portable) IMPRESSION: No acute cardiopulmonary pathology Consultations 05/24/20 23:10 Consult: Onc/Wound/insulation cupola operator Routine Comment: Operations: None Procedures: None Summary of Care Provided: Hospital Course: The patient is a 49 year old F with medical history of lupus anticoagulant, rheumatoid arthritis, venous thromboembolism, pulmonary emboli, MTHFR mutation, obstructive sleep apnea, morbid obesity, anxiety and depression, GERD, RLS, who presented to the emergency room with complaints of fevers, chills, nausea, vomiting, headache, diarrhea, cough, shortness of breath. She had recently been admitted to [facility] and treated with 2 weeks of IV antibiotics for left lower extremity wound. She complained of intermittent symptoms over the past week. She stated that the symptoms worsened in the 48 hours leading up to admission. She felt chest pain as well. She was concerned that she may have had a new PE. Her INR was supratherapeutic. She came to the emergency room was not hypoxic on room air, had no acute process on chest x-ray, no leukocytosis. She was admitted to the PCU for observation. Initially she was placed on Covid precautions due to her symptoms, however Covid test came back negative. Respiratory viral panel was negative, procalcitonin was negative, and symptoms were improved by the following day with supportive care. Patient continued to have no hypoxia. She was felt to have had a viral URI. She was discharged home in stable condition. She is to follow-up with her PCP in 1 to 2 weeks. This patient was seen by Edgar Howard PA-C under the supervision of Doctor Madhavi. [] Patient Problems: Active and Suspected Problems Suspected COVID-19 virus infection (Acute) - Physical Exam Vitals/I&O's: Vital Signs Temp Pulse Resp BP Pulse Ox 97.8 F 102 H 18 102/59 L 95 05/25/20 12:15 05/25/20 12:44 05/25/20 12:15 05/25/20 12:15 05/25/20 12:15 Oxygen Flow Rate (L/min) 2 Oxygen Delivery Method Room Air Weight: 332 lb 3.786 oz Body Mass Index (BMI) 53.6 Finger Stick Blood Glucose 115 Intake and Output for Last 24 Hours 05/23/20 05/24/20 05/25/20 23:59 23:59 23:59 Intake Total 1500 / 1500 Output Total 200 / 200 Balance 1300 / 1300 General: Alert, Oriented x3, Cooperative HEENT: Atraumatic, PERRLA, EOMI, Normocephalic Neck: Supple, No JVD, Negative Carotid Bruits Lungs: Clear to auscultation, Normal air movement Cardiovascular: Regular rate, No murmurs Abdomen: Bowel Sounds Present, Soft, Non Tender, Obese Extremities: No edema, Capillary Refill Less than 3 Seconds Skin: No rashes, No breakdown Musculoskeletal: No Tenderness to Palpation of Joints or Extremities Neurological: Cranial nerves II-XII grossly intact Psych/Mental Status: Normal Affect, Appropriate, Alert and oriented to time, place, person, mood and affect Microbiology Past 72 Hours 05/24/20 20:53 Mucosa - Nasopharyngeal Respiratory Panel (PCR) - Final Laboratory Results 05/24/20 19:05: WBC 9.8, RBC 4.26, Hgb 11.9 L, Hct 38.6, MCV 90.6, MCH 27.9, MCHC 30.8 L, RDW Std Deviation 50.1 H, RDW Coeff of Chepe 15.2 H, Plt Count 353, MPV 9.7, Immature Gran % (Auto) 0.300, Neut % (Auto) 66.8, Lymph % (Auto) 23.2, [place] % (Auto) 6.9, Eos % (Auto) 2.3, Baso % (Auto) 0.5, Absolute Neuts (auto) 6.5, Absolute Lymphs (auto) 2.27, Nucleated RBC % 0 05/24/20 19:05: PT 33.8 H, INR 3.4 05/24/20 19:05: Sodium 139, Potassium 4.0, Chloride 105, Carbon Dioxide 28.0, Anion Gap 6, BUN 12, Creatinine 0.98, Estim Creat Clear Calc 65.01, Est GFR (MDRD) Af Amer 77, Est GFR (MDRD) Non-Af 64, BUN/Creatinine Ratio 12.2, Glucose 94, Calcium 9.5, Troponin I < 0.015 05/24/20 19:05: B-Natriuretic Peptide 12.6 05/24/20 20:53: COVID-19 (RODERICK) Negative 05/24/20 23:40: Magnesium 2.0, Ferritin 48, Lactate Dehydrogenase 179, C-React Prot Ext Range 95.20 H 05/24/20 23:40: Procalcitonin 0.05 05/25/20 06:56: WBC 9.2, RBC 4.09 L, Hgb 11.2 L, Hct 37.7, MCV 92.2, MCH 27.4, MCHC 29.7 L, RDW Std Deviation 51.6 H, RDW Coeff of Chepe 15.3 H, Plt Count 316, MPV 9.4, Immature Gran % (Auto) 0.200, Neut % (Auto) 58.8, Lymph % (Auto) 27.9, [place] % (Auto) 8.5, Eos % (Auto) 4.1, Baso % (Auto) 0.5, Absolute Neuts (auto) 5.4, Absolute Lymphs (auto) 2.56, Nucleated RBC % 0 05/25/20 06:56: PT 28.9 H, INR 2.8 05/25/20 06:56: Sodium 135 L, Potassium 4.0, Chloride 101, Carbon Dioxide 28.0, Anion Gap 6, BUN 14, Creatinine 1.01, Estim Creat Clear Calc 63.08, Est GFR (MDRD) Af Amer 75, Est GFR (MDRD) Non-Af 62, BUN/Creatinine Ratio 13.9, Glucose 86, Calcium 9.1, Total Bilirubin 0.40, AST 18, ALT 22, Alkaline Phosphatase 101, Total Protein 7.7, Albumin 2.9 L, Globulin 4.8 H, Albumin/Globulin Ratio 0.6 L Current Medications Acetaminophen (Acetaminophen 325 Mg Tablet) 650 mg PO Q6H PRN PRN PRN Reason: Pain Score 1-10/Temp > 100.7 F Last Admin: 05/25/20 07:58 Dose: 650 mg Documented by: Albuterol Sulfate (Albuterol Sulfate 18 Gm Inhaler (200 Puffs)) 2 puff IH Q4H PRN PRN PRN Reason: Dyspnea, wheezing Aripiprazole (Aripiprazole 5 Mg Tablet) 5 mg PO DAILY [facility] Last Admin: 05/25/20 07:57 Dose: 5 mg Documented by: Bupropion HCl (Bupropion (Xl) 300 Mg Tablet.Xl) 300 mg PO DAILY [facility] Last Admin: 05/25/20 07:57 Dose: 300 mg Documented by: Buspirone HCl (Buspirone 5 Mg Tablet) 10 mg PO BID PRN PRN PRN Reason: ANXIETY Diazepam (Diazepam 5 Mg Tablet) 5 mg PO 4X/DAY PRN PRN PRN Reason: SPASMS Famotidine (Famotidine 20 Mg Tablet) 20 mg PO QHS [facility] Ferrous Sulfate ([facility] S[facility] 325 Mg Tablet) [facility] Last Admin: 05/25/20 07:57 Dose: 325 mg Documented by: Folic Acid (Folic Acid 1 Mg Tablet) [facility] Last Admin: 05/25/20 07:58 Dose: 1 mg Documented by: Guaifenesin (Guaifenesin 10 Ml Udc (200mg/10ml)) 20 ml PO Q4H PRN PRN PRN Reason: COUGH Hydralazine HCl (Hydralazine 20 Mg/Ml Vial) 10 mg IV Q4H PRN PRN PRN Reason: SBP > 160 Lactobacillus Acidophilus (Lactobacillus Acidophilus) 1 tablet PO BID [facility] Last Admin: 05/25/20 07:57 Dose: 1 tablet Documented by: Metoprolol Succinate (Metoprolol(Xl)Succ 50 Mg Tablet) 50 mg PO DAILY [facility] Last Admin: 05/25/20 07:58 Dose: 50 mg Documented by: Miscellaneous Information (Inhaler, Assist Devices 1 Each Spacer) 1 each INHALATION PRN PRN PRN Reason: WITH ALBUTEROL MDI Morphine Sulfate (Morphine 2 Mg/Ml Syringe) 2 mg IV Q3H PRN PRN PRN Reason: Pain Score 6-10 Last Admin: 05/25/20 03:26 Dose: 2 mg Documented by: Ondansetron HCl (Ondansetron 4 Mg/2 Ml Vial) 4 mg IV Q8H PRN PRN PRN Reason: NAUSEA/VOMITING Oxycodone HCl (Oxycodone 5 Mg Tablet) 5 mg PO Q4H PRN PRN PRN Reason: Pain Score 6-10 Last Admin: 05/25/20 07:56 Dose: 5 mg Documented by: Pantoprazole Sodium (Pantoprazole Sodium 40 Mg Tablet) 40 mg PO BID [facility] Last Admin: 05/25/20 07:58 Dose: 40 mg Documented by: Pramipexole Dihydrochloride (Pramipexole Di-Hcl 0.25 Mg Tablet) 0.25 mg PO TIDCM [facility] Last Admin: 05/25/20 12:15 Dose: 0.25 mg Documented by: Prednisone 5 mg/ [facility] (mg[facility] Last Admin: 05/25/20 07:57 Dose: 8 mg Documented by: Prochlorperazine Edisylate (Prochlorperazine 10 Mg/2 Ml Vial) 5 mg IV Q4H PRN PRN PRN Reason: Breakthrough nausea/vomiting Sodium Chloride (0.9% Saline Lock 10 Ml Syringe) 10 - 40 ml IV UD PRN PRN Reason: SALINE FLUSH Last Admin: 05/25/20 03:27 Dose: 10 ml Documented by: Throat Lozenges (Benzocaine/Menthol 1 Lozenge) 1 lozenge MUCOUS MEM Q2H PRN PRN PRN Reason: SORE THROAT Last Admin: 05/25/20 00:37 Dose: 1 lozenge Documented by: Trazodone HCl (Trazodone 50 Mg Tablet) 150 mg PO QHS [facility] Venlafaxine HCl (Venlafaxine Xr 75 Mg Capsule) 225 mg PO DAILY [facility] Last Admin: 05/25/20 07:57 Dose: 225 mg Documented by: Warfarin Sodium (Warfarin 5 Mg Tablet) 5 mg PO DAILY@1700 [facility] Discharge Activity: Return to Normal Activity Home Medications: Medications to take at Discharge Aripiprazole [Abilify] 5 mg PO DAILY 07/10/18 Omeprazole 40 mg PO BID 07/10/18 Bupropion HCl [Bupropion Xl] 300 mg PO DAILY 08/25/18 Ropinirole HCl [Ropinirole ER] 2 mg PO QHS 08/25/18 Folic Acid 1 mg PO DAILY 01/23/19 Ferrous Sulfate 325 mg PO DAILY 03/27/19 Lactobacillus Acidophilus [Acidophilus] 1 ea PO BID 03/27/19 Venlafaxine XR [Effexor Xr] 225 mg PO DAILY 04/10/19 traZODone [Desyrel] 150 mg PO QHS 04/10/19 Prednisone 8 mg PO DAILY 05/18/19 Metoprolol(XL)Succ [Toprol Xl (Beta Christin)] 50 mg PO DAILY tab 12/30/19 Albuterol IH (ProAir) [Proair Hfa] 1 puff INHALATION Q4H PRN PRN #1 inhaler 01/26/20 Famotidine [Acid Controller] 20 mg PO QHS 03/04/20 Warfarin [Coumadin] 5 mg PO DAILY 03/04/20 busPIRone [Buspar] 10 mg PO PRN PRN 03/04/20 Diazepam [Valium] 5 mg PO 4X/DAY PRN PRN #30 tab 03/24/20 Oxycodone HCl/Acetaminophen [Oxycodone-Acetaminophen 5-325] 1 tab PO Q4H PRN 7 Days #40 tab 03/24/20 proMETHazine tablet [Phenergan tablet] 25 mg PO Q4H PRN PRN tab 03/24/20 Acetaminophen [Tylenol Tablet] 650 mg PO Q6H PRN PRN tab 05/25/20 Primary Care Physician: Tarah Dubon DO [Primary Care Provider] - Please follow up with your Primary Care Physician in: 1-2 weeks Medical Necessity - Tobacco Use Smoking Status: Never smoker Tobacco Use: Non-smoker Meaningful Use Info Meaningful Use Diagnoses (Choose all that apply): None applicable <Jesús Hendrickson - Last Filed: 05/25/20 14:27> Discharge Date and Diagnosis - Primary Discharge Diagnosis Acute Problems: Active Problems Suspected COVID-19 virus infection (Acute) - Secondary Discharge Diagnosis Chronic Problems: Chronic Problems Morbid obesity (Chronic) Sinus tachycardia (Chronic) RLS (restless legs syndrome) (Chronic) Anxiety and depression (Chronic) Leg wound, left (Chronic) KIKI (obstructive sleep apnea) (Chronic) GERD (gastroesophageal reflux disease) (Chronic) Rheumatoid arthritis (Chronic) MTHFR mutation (Chronic) Lupus anticoagulant disorder (Chronic) History of venous thromboembolism (Chronic) Anxiety (Chronic) Bilateral lower extremity edema (Chronic) Ulcer of left lower extremity (Chronic) Ulcer of left lower extremity with fat layer exposed (Chronic) 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 I have independently interviewed and examined the patient and reviewed pertinent historical, laboratory, and other data. Please refer to Egdar Howard PA-C note for details of this patient's presentation, findings, and recommendations. I have reviewed Edgar Howard PA-C note and concur with documented findings. In brief, Patient is 49 -year-old admitted with multiple complains listed above. work up was unremarkable Hospital course: As documented above - Physical Exam Vitals/I&O's: Vital Signs Temp Pulse Resp BP Pulse Ox 98.0 F 93 20 H 127/67 H 88 05/25/20 14:18 05/25/20 14:18 05/25/20 14:18 05/25/20 14:18 05/25/20 14:22 Oxygen Flow Rate (L/min) [ 2 AMBULATION with Oxygen] Oxygen Flow Rate (L/min) [At 0 REST on Room Air] Oxygen Flow Rate (L/min) 2 Oxygen Delivery Method Room Air Weight: 150.7 kg Body Mass Index (BMI) 53.6 Finger Stick Blood Glucose 115 Intake and Output for Last 24 Hours 11/02/20 11/03/20 11/04/20 23:59 23:59 23:59 Intake Total 1500 / 1500 Output Total 200 / 200 Balance 1300 / 1300 Microbiology Past 72 Hours 05/24/20 20:53 Mucosa - Nasopharyngeal Respiratory Panel (PCR) - Final Laboratory Results 05/24/20 19:05: WBC 9.8, RBC 4.26, Hgb 11.9 L, Hct 38.6, MCV 90.6, MCH 27.9, MCHC 30.8 L, RDW Std Deviation 50.1 H, RDW Coeff of Chepe 15.2 H, Plt Count 353, MPV 9.7, Immature Gran % (Auto) 0.300, Neut % (Auto) 66.8, Lymph % (Auto) 23.2, [place] % (Auto) 6.9, Eos % (Auto) 2.3, Baso % (Auto) 0.5, Absolute Neuts (auto) 6.5, Absolute Lymphs (auto) 2.27, Nucleated RBC % 0 05/24/20 19:05: PT 33.8 H, INR 3.4 05/24/20 19:05: Sodium 139, Potassium 4.0, Chloride 105, Carbon Dioxide 28.0, Anion Gap 6, BUN 12, Creatinine 0.98, Estim Creat Clear Calc 65.01, Est GFR (MDRD) Af Amer 77, Est GFR (MDRD) Non-Af 64, BUN/Creatinine Ratio 12.2, Glucose 94, Calcium 9.5, Troponin I < 0.015 05/24/20 19:05: B-Natriuretic Peptide 12.6 05/24/20 20:53: COVID-19 (RODERICK) Negative 05/24/20 23:40: Magnesium 2.0, Ferritin 48, Lactate Dehydrogenase 179, C-React Prot Ext Range 95.20 H 05/24/20 23:40: Procalcitonin 0.05 05/25/20 06:56: WBC 9.2, RBC 4.09 L, Hgb 11.2 L, Hct 37.7, MCV 92.2, MCH 27.4, MCHC 29.7 L, RDW Std Deviation 51.6 H, RDW Coeff of Chepe 15.3 H, Plt Count 316, MPV 9.4, Immature Gran % (Auto) 0.200, Neut % (Auto) 58.8, Lymph % (Auto) 27.9, [place] % (Auto) 8.5, Eos % (Auto) 4.1, Baso % (Auto) 0.5, Absolute Neuts (auto) 5.4, Absolute Lymphs (auto) 2.56, Nucleated RBC % 0 05/25/20 06:56: PT 28.9 H, INR 2.8 05/25/20 06:56: Sodium 135 L, Potassium 4.0, Chloride 101, Carbon Dioxide 28.0, Anion Gap 6, BUN 14, Creatinine 1.01, Estim Creat Clear Calc 63.08, Est GFR (MDRD) Af Amer 75, Est GFR (MDRD) Non-Af 62, BUN/Creatinine Ratio 13.9, Glucose 86, Calcium 9.1, Total Bilirubin 0.40, AST 18, ALT 22, Alkaline Phosphatase 101, Total Protein 7.7, Albumin 2.9 L, Globulin 4.8 H, Albumin/Globulin Ratio 0.6 L Current Medications Acetaminophen (Acetaminophen 325 Mg Tablet) 650 mg PO Q6H PRN PRN PRN Reason: Pain Score 1-10/Temp > 100.7 F Last Admin: 05/25/20 07:58 Dose: 650 mg Documented by: Albuterol Sulfate (Albuterol Sulfate 18 Gm Inhaler (200 Puffs)) 2 puff IH Q4H PRN PRN PRN Reason: Dyspnea, wheezing Aripiprazole (Aripiprazole 5 Mg Tablet) 5 mg PO DAILY [facility] Last Admin: 05/25/20 07:57 Dose: 5 mg Documented by: Bupropion HCl (Bupropion (Xl) 300 Mg Tablet.Xl) 300 mg PO DAILY [facility] Last Admin: 05/25/20 07:57 Dose: 300 mg Documented by: Buspirone HCl (Buspirone 5 Mg Tablet) 10 mg PO BID PRN PRN PRN Reason: ANXIETY Diazepam (Diazepam 5 Mg Tablet) 5 mg PO 4X/DAY PRN PRN PRN Reason: SPASMS Famotidine (Famotidine 20 Mg Tablet) 20 mg PO QHS [facility] Ferrous Sulfate (Ferrous Sulfate 325 Mg Tablet) [facility] Last Admin: 05/25/20 07:57 Dose: 325 mg Documented by: Folic Acid (Folic Acid 1 Mg Tablet) [facility] Last Admin: 05/25/20 07:58 Dose: 1 mg Documented by: Guaifenesin (Guaifenesin 10 Ml Udc (200mg/10ml)) 20 ml PO Q4H PRN PRN PRN Reason: COUGH Hydralazine HCl (Hydralazine 20 Mg/Ml Vial) 10 mg IV Q4H PRN PRN PRN Reason: SBP > 160 Lactobacillus Acidophilus (Lactobacillus Acidophilus) 1 tablet PO BID [facility] Last Admin: 05/25/20 07:57 Dose: 1 tablet Documented by: Metoprolol Succinate (Metoprolol(Xl)Succ 50 Mg Tablet) 50 mg PO DAILY [facility] Last Admin: 05/25/20 07:58 Dose: 50 mg Documented by: Miscellaneous Information (Inhaler, Assist Devices 1 Each Spacer) 1 each INHALATION PRN PRN PRN Reason: WITH ALBUTEROL MDI Morphine Sulfate (Morphine 2 Mg/Ml Syringe) 2 mg IV Q3H PRN PRN PRN Reason: Pain Score 6-10 Last Admin: 05/25/20 03:26 Dose: 2 mg Documented by: Ondansetron HCl (Ondansetron 4 Mg/2 Ml Vial) 4 mg IV Q8H PRN PRN PRN Reason: NAUSEA/VOMITING Oxycodone HCl (Oxycodone 5 Mg Tablet) 5 mg PO Q4H PRN PRN PRN Reason: Pain Score 6-10 Last Admin: 05/25/20 07:56 Dose: 5 mg Documented by: Pantoprazole Sodium (Pantoprazole Sodium 40 Mg Tablet) 40 mg PO BID [facility] Last Admin: 05/25/20 07:58 Dose: 40 mg Documented by: Pramipexole Dihydrochloride (Pramipexole Di-Hcl 0.25 Mg Tablet) 0.25 mg PO TIDCM [facility] Last Admin: 05/25/20 12:15 Dose: 0.25 mg Documented by: Prednisone 5 mg/ Prednisone 3 (mg) 8 mg PO DAILYCM [facility] Last Admin: 05/25/20 07:57 Dose: 8 mg Documented by: Prochlorperazine Edisylate (Prochlorperazine 10 Mg/2 Ml Vial) 5 mg IV Q4H PRN PRN PRN Reason: Breakthrough nausea/vomiting Sodium Chloride (0.9% Saline Lock 10 Ml Syringe) 10 - 40 ml IV UD PRN PRN Reason: SALINE FLUSH Last Admin: 05/25/20 03:27 Dose: 10 ml Documented by: Throat Lozenges (Benzocaine/Menthol 1 Lozenge) 1 lozenge MUCOUS MEM Q2H PRN PRN PRN Reason: SORE THROAT Last Admin: 05/25/20 00:37 Dose: 1 lozenge Documented by: Trazodone HCl (Trazodone 50 Mg Tablet) 150 mg PO QHS [facility] Venlafaxine HCl (Venlafaxine Xr 75 Mg Capsule) 225 mg PO DAILY [facility] Last Admin: 05/25/20 07:57 Dose: 225 mg Documented by: Warfarin Sodium (Warfarin 5 Mg Tablet) 5 mg PO DAILY@1700 [facility] OBSV E&M: [id number] Observation care discharge
--- NOTE | 2020-05-25 14:30 | CASEMGMT ---
Pt does qualify for 2liters continuous home oxygen at this time. Pt states no preference for DME company at this time. [place] [facility] [place] and call [place] Sang[place] [facility] to [place], voices understanding. Pt voices no further concerns/needs at this time. SStwilmer RN CM
== END 2020-05-25 16:30 | disposition home or self-care (01) ==
LOC: ED 20:15 → PCU 22:44
PROVIDERS: Admitting Provider Family Medicine; Emergency Provider Emergency Medicine; PCP Family Medicine; Visit Provider Internal Medicine
DX: J06.9 Acute upper respiratory infection, unspecified (principal); E66.01 Morbid (severe) obesity due to excess calories; Z68.43 Body mass index [BMI] 50.0-59.9, adult; F32.9 Major depressive disorder, single episode, unspecified; F41.9 Anxiety disorder, unspecified; G25.81 Restless legs syndrome; D68.62 Lupus anticoagulant syndrome; G47.33 Obstructive sleep apnea (adult) (pediatric); K21.9 Gastro-esophageal reflux disease without esophagitis; M06.9 Rheumatoid arthritis, unspecified; M32.9 Systemic lupus erythematosus, unspecified; Z79.899 Other long term (current) drug therapy; Z79.01 Long term (current) use of anticoagulants; Z79.52 Long term (current) use of systemic steroids; R00.0 Tachycardia, unspecified; Z86.718 Personal history of other venous thrombosis and embolism; D50.9 Iron deficiency anemia, unspecified; Z86.711 Personal history of pulmonary embolism
CPT/HCPCS: 36415; 71045; 80048; 80053; 82728; 83615; 83735; 83880; 84145; 84484; 85025; 85610; 86140; 87633; 87635; 93005; 96374; 96375; 96376; 99218; 99285; A4216; G0378; J2405; U0002

== ENCOUNTER 2020-12-09 06:49 | Emergency (ER) | payer MEDICAID, SELFPAY ==
[2020-05-24 23:20] VITALS: BMI 53.6
[2020-12-09 06:50] VITALS: BP 120/104; PULSE 109; RESP 18; TEMP 37.2; O2SAT 96; BMI 59.1
--- NOTE | 2020-12-09 07:26 | CT_ITS ---
STUDY: CT ABDOMEN AND PELVIS WITH CONTRAST REASON FOR EXAM: Female, 49 years old. Left lower quadrant pain RADIATION DOSAGE (If Supplied By Facility): CTDIvol = ( 33.80 ) mGy, DLP = ( 2013.68 ) mGycm TECHNIQUE: Transaxial images were obtained from the dome of the diaphragm to the symphysis pubis without oral contrast. IV 100mL Isovue-300 was administered. Sagittal and coronal images were reconstructed. Individualized dose optimization techniques were used for this CT. COMPARISON: None. FINDINGS: The visualized lung bases are unremarkable. The visualized portions of the heart are within normal limits. There is decreased attenuation of the liver consistent with steatosis. Normal gallbladder and extrahepatic biliary system. Normal spleen. Normal pancreas. Normal bilateral adrenal glands. Normal right kidney. Normal left kidney. There is a hiatal hernia. Normal small intestine. There are multiple colonic diverticula consistent with diverticulosis. There is non-visualization of the appendix. Normal abdominal aorta. Normal inferior vena cava. Normal retroperitoneum. Normal urinary bladder. There is absence of the uterus consistent with a prior hysterectomy. Normal abdominal wall. There are diffuse degenerative changes of the visualized lumbar spine, and pelvis. CT/Abdomen/Pelvis W IV Cont ONLY IMPRESSION: Diffuse fatty infiltration of the liver, no discrete lesion Hiatal hernia No free peritoneal fluid, air, or suspicious adenopathy Diverticulosis Electronically Signed: Dominic Kirby MD at 8:46 EDT , Service support ,
--- NOTE | 2020-12-09 07:27 | EDS_ITS ---
HPI History of Present Illness Chief Complaint: Abd Pain Informant: patient Narrative Narrative: 49-year-old female presenting with left groin pain. She states this has been ongoing for the past week. She has nausea with no vomiting. She has had constipation. She denies urinary complaints. She has pain in her left groin that is worsened with movement. She denies injury. Denies other complaints. [facility] Medical History Anxiety Depression GERD (gastroesophageal reflux disease) Pulmonary embolism Rheumatoid arthritis Home Medications aripiprazole 5 mg PO DAILY 07/10/18 [History Last Taken 03/14/20 06:00] omeprazole 40 mg PO BID 07/10/18 [History Last Taken 03/14/20 06:00] bupropion HCl 300 mg PO DAILY 08/25/18 [History Last Taken 03/14/20 06:00] ropinirole 2 mg PO QHS 08/25/18 [History Last Taken 05/17/19 21:30] folic acid 1 mg PO DAILY 01/23/19 [History Last Taken 05/18/19 07:00] Lactobacillus acidophilus 1 ea PO BID 03/27/19 [History Last Taken 05/18/19 07:00] ferrous sulfate 325 mg PO DAILY 03/27/19 [History Last Taken 05/18/19 07:00] trazodone 150 mg PO QHS 04/10/19 [History Last Taken 05/17/19 21:30] venlafaxine 225 mg PO DAILY 04/10/19 [History Last Taken 03/14/20 06:00] prednisone 8 mg PO DAILY 05/18/19 [History Last Taken Unknown] metoprolol succinate 50 mg PO DAILY tab 12/30/19 [Rx Last Taken 03/14/20 06:00] albuterol sulfate 1 puff INHALATION Q4H PRN PRN #1 inhaler 01/26/20 [Rx Last Taken Unknown] buspirone 10 mg PO PRN PRN 03/04/20 [History Last Taken Unknown] famotidine 20 mg PO QHS 03/04/20 [History Last Taken Unknown] warfarin 5 mg PO DAILY 03/04/20 [History Last Taken Unknown] diazepam 5 mg PO 4X/DAY PRN PRN #30 tab 03/24/20 [Rx Last Taken Unknown] oxycodone-acetaminophen 1 tab PO Q4H PRN 7 Days #40 tab 03/24/20 [Rx Last Taken Unknown] promethazine 25 mg PO Q4H PRN PRN tab 03/24/20 [Rx Last Taken Unknown] acetaminophen 650 mg PO Q6H PRN PRN tab 05/25/20 [Rx Last Taken Unknown] cephalexin 500 mg PO Q12 #14 capsule 12/09/20 [Rx Last Taken Unknown] cyclobenzaprine 10 mg PO TID PRN #20 tablet 12/09/20 [Rx Last Taken Unknown] Allergy/AdvReac Type Severity Reaction Status Date / Time adhesive tape AdvReac Rash Verified 12/09/20 06:52 Surgical History History of hysterectomy Social History Smoking Status: Never smoker ROS ROS ED Constitutional Constitutional ED: Denies fever(s) Eyes Eyes: Denies change in vision ENT ENT ED: Denies rhinorrhea or sore throat Cardiovascular Cardiovascular: Denies chest pain or palpitations Respiratory/Chest Respiratory/Chest: Denies cough or dyspnea Gastrointestinal Gastrointestinal: Reports abdominal pain, constipation and nausea; Denies diarrhea or vomiting Genitourinary Genitourinary ED: Denies dysuria Musculoskeletal Musculoskeletal: Denies myalgias Integumentary Denies rash Neurologic Neurologic: Denies headache(s) Psychiatric Psychiatric: Denies suicidal thoughts EXAM Physical Exam Const Vital Signs: 12/09/20 06:50 Temperature 99 F Temperature Source Oral Pulse Rate 109 H Respiratory Rate 18 Blood Pressure 120/104 H Blood Pressure Mean 109 Pulse Ox 96 Positive well nourished and well developed General Appearance ED: well developed HEENT Reports normocephalic and head/scalp atraumatic Eyes PERRL and EOMs intact bilaterally Neck supple General: Negative for tenderness Chest Wall inspection of chest normal Resp normal respiratory effort and clear to auscultation bilaterally Cardio regular rate and regular rhythm GI GI Narrative: tenderness left groin. No hernia palpated. Palpation: soft; Negative for guarding or rebound tenderness present no CVA tenderness Extremity normal to inspection Neuro oriented x3 Sensorium / Orientation: alert Psych mental status grossly normal Skin no rashes or lesions noted MDM MDM MDM Narrative Medical decision making narrative: Patient was given Morphine, Zofran IV. CT abdomen pelvis shows no acute process. Patient states she has hydrocodone at home that she can take. She is given prescription for Flexeril. Her urinalysis shows 10-25 white blood cells. She was started on Keflex. She is advised to follow-up with her primary care physician. Advised return to the ED for worsening complaints. Lab Data Attestation: I reviewed the patient's lab results. Labs: Laboratory Results - last 24 hr 12/09/20 12/09/20 12/09/20 07:20 07:20 07:20 WBC 7.6 RBC 4.27 Hgb 11.9 L Hct 38.5 MCV 90.2 MCH 27.9 MCHC 30.9 L RDW Std Deviation 48.5 H RDW Coeff of Chepe 14.8 H Plt Count 335 MPV 9.2 Immature Gran % (Auto) 0.300 Neut % (Auto) 44.4 L Lymph % (Auto) 43.2 H [place] % (Auto) 8.5 Eos % (Auto) 3.1 Baso % (Auto) 0.5 Absolute Neuts (auto) 3.4 Absolute Lymphs (auto) 3.29 Nucleated RBC % 0 Differential Comment SCANNED Reactive Lymphocytes 1+ PT 31.8 H INR 3.2 Sodium 138 Potassium 3.6 Chloride 103 Carbon Dioxide 30.0 Anion Gap 5 BUN 19 H Creatinine 1.02 Estim Creat Clear Calc 60.03 Est GFR (MDRD) Af Amer 74 Est GFR (MDRD) Non-Af 61 BUN/Creatinine Ratio 18.6 Glucose 116 H Calcium 8.9 Urine Color Urine Clarity Urine pH Ur Specific [place] Urine Protein Urine Glucose (UA) Urine Ketones Urine Occult Blood Urine Nitrite Urine Bilirubin Urine Urobilinogen Ur Leukocyte Esterase Urine RBC Urine WBC Ur Squamous Epith Cells Urine Bacteria Urine Mucus 12/09/20 07:59 WBC RBC Hgb Hct MCV MCH MCHC RDW Std Deviation RDW Coeff of [place] Plt Count MPV Immature Gran % (Auto) Neut % (Auto) Lymph % (Auto) [place] % (Auto) Eos % (Auto) Baso % (Auto) Absolute Neuts (auto) Absolute Lymphs (auto) Nucleated RBC % Differential Comment Reactive Lymphocytes PT INR Sodium Potassium Chloride Carbon Dioxide Anion Gap BUN Creatinine Estim Creat Clear Calc Est GFR (MDRD) Af Amer Est GFR (MDRD) Non-Af BUN/Creatinine Ratio Glucose Calcium Urine Color Yellow Urine Clarity Sl. Cloudy Urine pH 5.0 Ur Specific [place] 1.030 Urine Protein 15 H Urine Glucose (UA) Normal Urine Ketones 5 H Urine Occult Blood 50 H Urine Nitrite Negative Urine Bilirubin Negative Urine Urobilinogen Normal Ur Leukocyte Esterase 500 H Urine RBC 0-5 SEEN Urine WBC 10-25 SEEN Ur Squamous Epith Cells 5-10 SEEN Urine Bacteria 1+ Urine Mucus 0 SEEN Radiography Diagnostic Testing: Radiology Impression Abdomen/Pelvis CT 12/09/20 07:26 IMPRESSION: Diffuse fatty infiltration of the liver, no discrete lesion Hiatal hernia No free peritoneal fluid, air, or suspicious adenopathy Diverticulosis Electronically Signed: Dominic Kirby MD at 8:46 EDT , Service support , Discharge Plan Triage Chief Complaint: Abd Pain ED Provider: Amelia Constantino Dx/Rx/DC Orders Clinical Impression: Strain of left groin Instructions: ED Abdominal Pain Unkn Cause Fem Prescriptions: New cyclobenzaprine [cyclobenzaprine] 10 MG tablet 10 mg PO TID PRN (Reason: Muscle Spasm) Qty: 20 RF: 0 cephalexin [cephalexin] 500 MG capsule 500 mg PO Q12 Qty: 14 RF: 0 No Action omeprazole 40 MG capsule,delayed release(DR/EC) 40 mg PO BID RF: 0 aripiprazole 2 MG tablet 5 mg PO DAILY RF: 0 bupropion HCl 300 MG tablet extended release 24 hr 300 mg PO DAILY RF: 0 ropinirole 2 MG tablet extended release 24 hr 2 mg PO QHS RF: 0 folic acid 1 MG tablet 1 mg PO DAILY RF: 0 ferrous sulfate 325 MG tablet 325 mg PO DAILY RF: 0 Lactobacillus acidophilus 1 EACH capsule 1 ea PO BID RF: 0 venlafaxine 150 MG capsule 225 mg PO DAILY RF: 0 trazodone 100 MG tablet 150 mg PO QHS RF: 0 prednisone 1 MG tablet 8 mg PO DAILY RF: 0 metoprolol succinate 50 MG tablet 50 mg PO DAILY RF: 0 albuterol sulfate 1 PUFF inhaler 1 puff inhalation Q4H PRN PRN (Reason: Wheezing) Qty: 1 RF: 0 buspirone 5 MG tablet 10 mg PO PRN PRN (Reason: Anxiety) RF: 0 famotidine 20 MG tablet 20 mg PO QHS RF: 0 warfarin 5 MG tablet 5 mg PO DAILY RF: 0 promethazine 25 MG tablet 25 mg PO Q4H PRN PRN (Reason: NAUSEA/VOMITING) RF: 0 oxycodone-acetaminophen 5-325 mg tablet 1 tab PO Q4H PRN (Reason: Pain Score 6-10/10) 7 Days Qty: 40 RF: 0 diazepam 5 MG tablet 5 mg PO 4X/DAY PRN PRN (Reason: Spasms) Qty: 30 RF: 0 acetaminophen 325 MG tablet 650 mg PO Q6H PRN PRN (Reason: Pain Score 1-10/Temp > 100.7 F) RF: 0 Primary Care Provider: Tarah Dubon Referrals: Tarah Dubon DO [Primary Care Provider] - Disposition Disposition: Home, self care
[2020-12-09] MEDS: Morphine 4 MG/ML Syringe IV (07:33)
[2020-12-09] MEDS: Ondansetron 4 MG/2 ML Vial IV (07:33)
[2020-12-09 07:37] LABS: Absolute Lymphocyte Count 3.29 X10^3/uL (0.83-4.51); Absolute Neutrophil Count 3.4 X10^3/uL (2.0-7.7); Basophil# 0.04 X10^3/uL; Basophil% 0.5 % (0-1); Eosinophil# 0.24 X10^3/uL; Eosinophils% 3.1 % (0-5); Hematocrit 38.5 % (37-47); Hemoglobin 11.9 g/dL (12.0-15.0); Lymphocyte # 3.29 X10^3/ul (0.83-4.51); Lymphocyte % 43.2 % (19-41); Mean Corp Hgb Conc 30.9 g/dL (32-36); Mean Corpuscular Hgb 27.9 pg (27.0-32.0); Mean Corpuscular Volume 90.2 fL (81-99); Mean Platelet Vol. 9.2 fl (6.2-12.0); Monocyte# 0.65 X10^3/uL; Monocyte% 8.5 % (0-10); NRBC Flagged by Analyzer 0 % (0-5); Neutrophil # 3.38 X10^3/uL (2.7-7.7); Neutrophil % 44.4 % (47-70); POSITIVE MORPHOLOGY YES; Platelet Count 335 K/mm3 (150-450); RBC Distribution Width CV 14.8 % (11.6-14.6); RBC Distribution Width SD 48.5 fl (35.1-43.9); Red Blood Count 4.27 M/mm3 (4.2-5.4); White Blood Count 7.6 K/mm3 (4.4-11.0)
[2020-12-09 07:44] LABS: Differential Indicated SCAN CRITERIA MET
[2020-12-09 07:49] LABS: Anion Gap 5 (5-15); BUN 19 mg/dL (7-18); BUN/Creat Ratio 18.6 RATIO (10-20); Calcium,Total 8.9 mg/dL (8.5-10.1); Chloride 103 mmol/L (98-107); Creatinine, Serum 1.02 mg/dL (0.55-1.02); EST Glomerular Filtration Rate 61 mL/min (>60); Est Glom Filt Rate - Afr Amer 74 mL/min (>60); Estimated Creatinine Clearance 60.03 ml/min; Glucose 116 mg/dL (74-106); Potassium 3.6 mmol/L (3.5-5.1); Sodium Level 138 mmol/L (136-145)
[2020-12-09 07:58] LABS: International Normalized Ratio 3.2; Prothrombin Time (Protime)PT. 31.8 SECONDS (11.7-14.9)
[2020-12-09 08:05] LABS: Mucous, Urine 0 SEEN /hpf (<or=2+)
[2020-12-09 08:09] LABS: Reactive Lymphocyte 1+
[2020-12-09 08:10] LABS: Differential Comment SCANNED
[2020-12-09 08:15] LABS: Color, Urine Yellow (Yellow); Glucose, Dipstick Normal (Normal); Ketone-Dipstick 5 mg/dl (Negative); Leukocyte Esterase-Dipstick 500 /ul (Negative); Nitrite-Dipstick Negative (Negative); Occult Blood-Urine 50 /ul (Negative); Protein-Dipstick 15 mg/dl (Negative); Urine Bilirubin Dipstick Negative (Negative); Urine Urobilinogen Normal (Normal)
[2020-12-09 08:21] LABS: Urine Clarity Sl. Cloudy (Clear)
[2020-12-09 08:22] LABS: White Blood Cells 10-25 SEEN /hpf (0-5)
[2020-12-09 08:23] LABS: Red Blood Cells-Urine 0-5 SEEN /hpf (0-5); Squamous Epithelial Cells - UA 5-10 SEEN /hpf (5-10)
[2020-12-09 08:24] LABS: Bacteria 1+ /hpf (None Seen)
[2020-12-09] MEDS: morphine 8 MG/ML Syringe 6 MG IV (08:31)
[2020-12-09 10:36] VITALS: BP 129/74; PULSE 81; TEMP -7.7; TEMP 18; O2SAT 97
--- NOTE | 2020-12-09 10:37 | ED.RN ---
THIS NURSE REVIEWED D/C INSTRUCTIONS WITH PT. PT VERBALIZED UNDERSTANDING OF INSTRUCTIONS. IV D/C. IV CATHETER INTACT. PT TOLERATED WELL. PT DENIES FURTHER NEEDS OR QUESTIONS AT THIS TIME. PT AMBULATES FROM THE ROOM ON OWN WITHOUT ASSISTANCE FROM STAFF
== END 2020-12-09 10:38 | disposition home or self-care (01) ==
PROVIDERS: Emergency Provider Emergency Medicine; PCP Family Medicine
DX: S39.011A Strain of muscle, fascia and tendon of abdomen, initial encounter (principal); X58.XXXA Exposure to other specified factors, initial encounter
CPT/HCPCS: 74177; 80048; 81001; 85025; 85610; 96374; 96375; 96376; 99283; Q9967; A4216; J2405

== ENCOUNTER 2021-01-15 13:31 | Emergency (ER) | payer MEDICAID, SELFPAY ==
[2021-01-15 13:31] VITALS: BP 161/91; PULSE 120; RESP 16; TEMP 36.3; O2SAT 95; BMI 56.3
--- NOTE | 2021-01-15 13:58 | CT_ITS ---
STUDY: CT ABDOMEN AND PELVIS WITH CONTRAST REASON FOR EXAM: Female, 50 years old. abdominal pain -- IV PO Contrast RADIATION DOSAGE (If Supplied By Facility): CTDIvol = ( 45.65 ) mGy, DLP = ( 2038.44 ) mGycm TECHNIQUE: Transaxial images were obtained from the dome of the diaphragm to the symphysis pubis without oral contrast. Oral and amp; IV Gastrografin and amp; 100mL Isovue-370 was administered. Sagittal and coronal images were reconstructed. Individualized dose optimization techniques were used for this CT. COMPARISON: 12/09/2020. FINDINGS: Lung bases are clear. Heart size is normal. Small hiatal hernia. Diffuse fatty infiltration of the liver. No focal lesion. The gallbladder is unremarkable. Spleen and pancreas are unremarkable. The adrenal glands are normal. The kidneys are unremarkable. No stones or hydronephrosis. The aorta is normal in caliber. There is no free fluid, free air or organized collection. No bowel obstruction or inflammatory change. Diverticulosis. No acute diverticulitis. Normal appendix. Urinary bladder is unremarkable. Normal abdominal wall. Normal osseous structures. CT/Abdomen/Pelvis WITH Contrast IMPRESSION: 1. No acute findings. 2. Small hiatal hernia. 3. Hepatic steatosis. Electronically Signed: Kerri Kerr MD at 17:11 EDT Tel , Service support ,
--- NOTE | 2021-01-15 14:00 | ED.VIS.GI ---
HPI <Dr. Roselyn Lozano DO - Last Filed: 01/15/21 16:49> HPI - GI History of Present Illness Chief Complaint: Abd Pain Detail of Chief Complaint: Abdominal pain that started a month ago Informant: patient Abdominal Pain/Flank Pain Current Severity: 02/28 Narrative Narrative: Patient presents with left-sided abdominal pain underneath her pannus that started about a month ago. Patient was seen in the emergency department and had labs and a CAT scan and no etiology was found it was thought her pain may be muscular. Patient states that it seemed to get a little bit better but never completely went away. Yesterday she was floating in some water when she started having severe pain once again. Patient states she can sleep all night because of the amount of pain she was having. She denies nausea or vomiting. She denies fever. She denies urinary symptoms. She is never had discomfort like this before. Patient states she has a colonoscopy scheduled in 2 weeks. Patient has had some intermittent blood in her stool that was bright red. She denies black tarry stools. Patient has had prior colonoscopies that have been negative. Prior similar symptoms: No PFSH <Dr. Roselyn Lozano, DO - Last Filed: 01/15/21 16:49> PFSH Medical History Anxiety Depression GERD (gastroesophageal reflux disease) Pulmonary embolism Rheumatoid arthritis Home Medications aripiprazole 5 mg PO DAILY 07/10/18 [History Last Taken 03/14/20 06:00] omeprazole 40 mg PO BID 07/10/18 [History Last Taken 03/14/20 06:00] bupropion HCl 300 mg PO DAILY 08/25/18 [History Last Taken 03/14/20 06:00] ropinirole 2 mg PO QHS 08/25/18 [History Last Taken 05/17/19 21:30] folic acid 1 mg PO DAILY 01/23/19 [History Last Taken 05/18/19 07:00] Lactobacillus acidophilus 1 ea PO BID 03/27/19 [History Last Taken 05/18/19 07:00] ferrous sulfate 325 mg PO DAILY 03/27/19 [History Last Taken 05/18/19 07:00] trazodone 150 mg PO QHS 04/10/19 [History Last Taken 05/17/19 21:30] venlafaxine 225 mg PO DAILY 04/10/19 [History Last Taken 03/14/20 06:00] prednisone 8 mg PO DAILY 05/18/19 [History Last Taken Unknown] metoprolol succinate 50 mg PO DAILY tab 12/30/19 [Rx Last Taken 03/14/20 06:00] albuterol sulfate 1 puff INHALATION Q4H PRN PRN #1 inhaler 01/26/20 [Rx Last Taken Unknown] buspirone 10 mg PO PRN PRN 03/04/20 [History Last Taken Unknown] famotidine 20 mg PO QHS 03/04/20 [History Last Taken Unknown] warfarin 5 mg PO DAILY 03/04/20 [History Last Taken Unknown] diazepam 5 mg PO 4X/DAY PRN PRN #30 tab 03/24/20 [Rx Last Taken Unknown] oxycodone-acetaminophen 1 tab PO Q4H PRN 7 Days #40 tab 03/24/20 [Rx Last Taken Unknown] promethazine 25 mg PO Q4H PRN PRN tab 03/24/20 [Rx Last Taken Unknown] acetaminophen 650 mg PO Q6H PRN PRN tab 05/25/20 [Rx Last Taken Unknown] cephalexin 500 mg PO Q12 #14 capsule 12/09/20 [Rx Last Taken Unknown] cyclobenzaprine 10 mg PO TID PRN #20 tablet 12/09/20 [Rx Last Taken Unknown] oxycodone-acetaminophen [Percocet] 1 tab PO Q6H PRN 3 Days #10 tab 01/15/21 [Rx Last Taken Unknown] Allergy/AdvReac Type Severity Reaction Status Date / Time adhesive tape AdvReac Rash Verified 01/15/21 13:34 Surgical History History of hysterectomy Social History Smoking Status: Never smoker ROS <Dr. Roselyn Lozano, DO - Last Filed: 01/15/21 16:49> ROS ED Constitutional Constitutional ED: Reports systems reviewed and no addt'l complaints, except as documented; Denies body ache(s), change in weight or chills Eyes Eyes: Denies acute decrease in peripheral vision, change in vision, double vision or loss of vision ENT ENT ED: Reports none; Denies ear pain, lip swelling, loss taste/smell, neck pain, otalgia or sore throat Cardiovascular Cardiovascular: Reports none; Denies abdominal pain, chest pain with activity, leg edema, lightheadedness, palpitations, rapid heart rate or syncope Respiratory/Chest Respiratory/Chest: Reports none; Denies change in mental status, dry cough, dyspnea, hemoptysis, shortness of breath at rest or shortness of breath with exertion Gastrointestinal Gastrointestinal: Reports none and abdominal pain; Denies change in stool character, diarrhea, hematemesis, hematochezia, melena, rectal bleeding or vomiting Genitourinary Genitourinary ED: Reports none; Denies abdominal discomfort, anuria, dysuria, genital pain or polyuria Musculoskeletal Musculoskeletal: Reports none; Denies arthralgias, back pain, difficulty walking, extremity pain, muscle weakness or myalgias Integumentary Reports none; Denies abscess or rash Neurologic Neurologic: Reports none; Denies abnormal gait, confusion, focal weakness, frequent falls, headache(s), loss of vision, numbness, paresthesias, radicular pain, vertigo or weakness Psychiatric Psychiatric: Reports systems reviewed and no addt'l complaints, except as documented and none; Denies behavioral changes, confusion, difficulty concentrating, hallucinations, suicidal ideation, tactile hallucinations or visual hallucinations Endocrine Endocrinology: Denies none, cold intolerance, excessive sweating, fatigue or heat intolerance Hematologic/Lymphatic Hematologic/Lymphatic: Reports none; Denies anemia, easy bleeding or easy bruising Allergic/Immunologic Allergic/Immunologic ED: Denies as per HPI, none, lip swelling, mouth swelling, throat swelling, tongue swelling or hives EXAM <Dr. Roselyn Lozano, DO - Last Filed: 01/15/21 16:49> Physical Exam Const Vital Signs: 01/15/21 13:31 Temperature 97.3 F L Temperature Source Temporal Pulse Rate 120 H Respiratory Rate 16 Blood Pressure 161/91 H Blood Pressure Mean 114 Pulse Ox 95 Oxygen Delivery Method Room Air Positive well nourished and well developed General Appearance ED: well developed and NAD HEENT Reports TM's clear and moist mucous membranes normocephalic and atraumatic; Negative for trauma or tenderness Tympanic Membrane ED: Yes TM's clear Eyes PERRL and EOMs intact bilaterally General Eye ED: Negative for pale conjunctiva or scleral icterus Neck no lymphadenopathy, supple and no JVD General: Negative for tenderness Chest Wall inspection of chest normal and palpation of chest normal Chest: Negative for tenderness Resp normal respiratory effort and clear to auscultation bilaterally Effort and Inspection: Negative for respiratory distress or pain with movement Auscultation: Negative for rhonchi, wheezes or diminished lung sounds Cardio regular rate, regular rhythm, S1 normal heart sound, S2 normal heart sound and no murmurs Peripheral Pulses: pulses 2+ throughout GI normal to inspection, nondistended, normoactive bowel sounds, soft to palpation, non-distended and no masses GI Narrative: Patient is morbidly obese and has tenderness to palpation underneath the left lower abdomen underneath her pannus. No masses palpated. No rebound, rigidity, or peritoneal signs noted. Palpation: tender LLQ Back/Spine no CVA tenderness and no thoracic nor lumbar tenderness Extremity normal to inspection General Extremety ED: Negative for edema General Extremity: Negative for edema Neuro oriented x3, CN's II-XII intact bilaterally, no sensory deficits noted and gait normal Sensorium / Orientation: awake, alert, oriented to person, oriented to place and oriented to time Motor Exam: strength 5/5 throughout and strength abnormal Psych mental status grossly normal Skin no rashes or lesions noted and no wounds <Dr. Maame Palmer MD - Last Filed: 01/15/21 17:36> Physical Exam Const Vital Signs: 01/15/21 13:31 Temperature 97.3 F L Temperature Source Temporal Pulse Rate 120 H Respiratory Rate 16 Blood Pressure 161/91 H Blood Pressure Mean 114 Pulse Ox 95 Oxygen Delivery Method Room Air MDM <Dr. Roselyn Lozano DO - Last Filed: 01/15/21 16:49> [facility] Narrative Medical decision making narrative: Lab work unremarkable. Care of patient turned over to evening physician awaiting CT results and final disposition. Etiology of abdominal pain at this point unknown. Lab Data Labs: Laboratory Results - last 24 hr 01/15/21 01/15/21 01/15/21 13:47 13:47 14:15 WBC 8.0 RBC 4.11 L Hgb 11.2 L Hct 36.9 L MCV 89.8 MCH 27.3 MCHC 30.4 L RDW Std Deviation 47.7 H RDW Coeff of Chepe 14.7 H Plt Count 383 MPV 9.6 Immature Gran % (Auto) 0.300 Neut % (Auto) 72.9 H Lymph % (Auto) 18.4 L [place] % (Auto) 6.4 Eos % (Auto) 1.4 Baso % (Auto) 0.6 Absolute Neuts (auto) 5.8 Absolute Lymphs (auto) 1.47 Nucleated RBC % 0 Sodium 138 Potassium 4.0 Chloride 104 Carbon Dioxide 26.0 Anion Gap 8 BUN 14 Creatinine 0.97 Estim Creat Clear Calc 64.95 Est GFR (MDRD) Af Amer 79 Est GFR (MDRD) Non-Af 65 BUN/Creatinine Ratio 14.5 Glucose 139 H Lactic Acid 2.1 H* Calcium 9.0 Troponin I High Sens 5.9 Urine Color Urine Clarity Urine pH Ur Specific [place] Urine Protein Urine Glucose (UA) Urine Ketones Urine Occult Blood Urine Nitrite Urine Bilirubin Urine Urobilinogen Ur Leukocyte Esterase Urine RBC Urine WBC Ur Squamous Epith Cells Urine Bacteria Urine Mucus 01/15/21 14:25 WBC RBC Hgb Hct MCV MCH MCHC RDW Std Deviation RDW Coeff of [place] Plt Count MPV Immature Gran % (Auto) Neut % (Auto) Lymph % (Auto) [place] % (Auto) Eos % (Auto) Baso % (Auto) Absolute Neuts (auto) Absolute Lymphs (auto) Nucleated RBC % Sodium Potassium Chloride Carbon Dioxide Anion Gap BUN Creatinine Estim Creat Clear Calc Est GFR (MDRD) Af Amer Est GFR (MDRD) Non-Af BUN/Creatinine Ratio Glucose Lactic Acid Calcium Troponin I High Sens Urine Color Yellow Urine Clarity Clear Urine pH 6.0 Ur Specific [place] 1.020 Urine Protein Negative Urine Glucose (UA) Normal Urine Ketones Negative Urine Occult Blood 25 H Urine Nitrite Negative Urine Bilirubin Negative Urine Urobilinogen Normal Ur Leukocyte Esterase 25 H Urine RBC 0 SEEN Urine WBC 0-5 SEEN Ur Squamous Epith Cells 0-5 SEEN Urine Bacteria 0 SEEN Urine Mucus 0 SEEN Radiography Diagnostic Testing: Radiology Impression Abdomen/Pelvis CT 01/15/21 13:58 IMPRESSION: 1. No acute findings. 2. Small hiatal hernia. 3. Hepatic steatosis. Electronically Signed: Kerri Kerr MD at 17:11 EDT Tel , Service support , <Dr. Maame Palmer MD - Last Filed: 01/15/21 17:36> [facility] Lab Data Labs: Laboratory Results - last 24 hr 01/15/21 01/15/21 01/15/21 13:47 13:47 14:15 WBC 8.0 RBC 4.11 L Hgb 11.2 L Hct 36.9 L MCV 89.8 MCH 27.3 MCHC 30.4 L RDW Std Deviation 47.7 H RDW Coeff of Chepe 14.7 H Plt Count 383 MPV 9.6 Immature Gran % (Auto) 0.300 Neut % (Auto) 72.9 H Lymph % (Auto) 18.4 L [place] % (Auto) 6.4 Eos % (Auto) 1.4 Baso % (Auto) 0.6 Absolute Neuts (auto) 5.8 Absolute Lymphs (auto) 1.47 Nucleated RBC % 0 Sodium 138 Potassium 4.0 Chloride 104 Carbon Dioxide 26.0 Anion Gap 8 BUN 14 Creatinine 0.97 Estim Creat Clear Calc 64.95 Est GFR (MDRD) Af Amer 79 Est GFR (MDRD) Non-Af 65 BUN/Creatinine Ratio 14.5 Glucose 139 H Lactic Acid 2.1 H* Calcium 9.0 Troponin I High Sens 5.9 Urine Color Urine Clarity Urine pH Ur Specific [place] Urine Protein Urine Glucose (UA) Urine Ketones Urine Occult Blood Urine Nitrite Urine Bilirubin Urine Urobilinogen Ur Leukocyte Esterase Urine RBC Urine WBC Ur Squamous Epith Cells Urine Bacteria Urine Mucus 01/15/21 14:25 WBC RBC Hgb Hct MCV MCH MCHC RDW Std Deviation RDW Coeff of [place] Plt Count MPV Immature Gran % (Auto) Neut % (Auto) Lymph % (Auto) [place] % (Auto) Eos % (Auto) Baso % (Auto) Absolute Neuts (auto) Absolute Lymphs (auto) Nucleated RBC % Sodium Potassium Chloride Carbon Dioxide Anion Gap BUN Creatinine Estim Creat Clear Calc Est GFR (MDRD) Af Amer Est GFR (MDRD) Non-Af BUN/Creatinine Ratio Glucose Lactic Acid Calcium Troponin I High Sens Urine Color Yellow Urine Clarity Clear Urine pH 6.0 Ur Specific [place] 1.020 Urine Protein Negative Urine Glucose (UA) Normal Urine Ketones Negative Urine Occult Blood 25 H Urine Nitrite Negative Urine Bilirubin Negative Urine Urobilinogen Normal Ur Leukocyte Esterase 25 H Urine RBC 0 SEEN Urine WBC 0-5 SEEN Ur Squamous Epith Cells 0-5 SEEN Urine Bacteria 0 SEEN Urine Mucus 0 SEEN Radiography Diagnostic Testing: Radiology Impression Abdomen/Pelvis CT 01/15/21 13:58 IMPRESSION: 1. No acute findings. 2. Small hiatal hernia. 3. Hepatic steatosis. Electronically Signed: Kerri Kerr MD at 17:11 EDT Tel , Service support , Treatment and Re-Evaluation Comments:: Patient was signed out to me for follow-up after CT scan. CT revealed small hiatal hernia but no acute findings in the left lower quadrant to describe her area of pain. Patient is scheduled for a colonoscopy in the coming weeks. She will keep this appointment. I will write her prescription for Percocet for pain control. Return instructions are provided. Discharge Plan Triage Chief Complaint: Abd Pain ED Provider: Roselyn Lozano Dx/Rx/DC Orders Clinical Impression: Abdominal pain Instructions: ED Abdominal Pain Unkn Cause Fem Prescriptions: New oxycodone-acetaminophen [Percocet] 5-325 mg tablet 1 tab PO Q6H PRN (Reason: pain) 3 Days Qty: 10 RF: 0 No Action omeprazole 40 MG capsule,delayed release(DR/EC) 40 mg PO BID RF: 0 aripiprazole 2 MG tablet 5 mg PO DAILY RF: 0 bupropion HCl 300 MG tablet extended release 24 hr 300 mg PO DAILY RF: 0 ropinirole 2 MG tablet extended release 24 hr 2 mg PO QHS RF: 0 folic acid 1 MG tablet 1 mg PO DAILY RF: 0 ferrous sulfate 325 MG tablet 325 mg PO DAILY RF: 0 Lactobacillus acidophilus 1 EACH capsule 1 ea PO BID RF: 0 venlafaxine 150 MG capsule 225 mg PO DAILY RF: 0 trazodone 100 MG tablet 150 mg PO QHS RF: 0 prednisone 1 MG tablet 8 mg PO DAILY RF: 0 metoprolol succinate 50 MG tablet 50 mg PO DAILY RF: 0 albuterol sulfate 1 PUFF inhaler 1 puff inhalation Q4H PRN PRN (Reason: Wheezing) Qty: 1 RF: 0 buspirone 5 MG tablet 10 mg PO PRN PRN (Reason: Anxiety) RF: 0 famotidine 20 MG tablet 20 mg PO QHS RF: 0 warfarin 5 MG tablet 5 mg PO DAILY RF: 0 promethazine 25 MG tablet 25 mg PO Q4H PRN PRN (Reason: NAUSEA/VOMITING) RF: 0 oxycodone-acetaminophen 5-325 mg tablet 1 tab PO Q4H PRN (Reason: Pain Score 6-10/10) 7 Days Qty: 40 RF: 0 diazepam 5 MG tablet 5 mg PO 4X/DAY PRN PRN (Reason: Spasms) Qty: 30 RF: 0 acetaminophen 325 MG tablet 650 mg PO Q6H PRN PRN (Reason: Pain Score 1-10/Temp > 100.7 F) RF: 0 cyclobenzaprine [cyclobenzaprine] 10 MG tablet 10 mg PO TID PRN (Reason: Muscle Spasm) Qty: 20 RF: 0 cephalexin [cephalexin] 500 MG capsule 500 mg PO Q12 Qty: 14 RF: 0 Primary Care Provider: Tarah Dubon Referrals: Tarah Dubon DO [Primary Care Provider] - 1 Week if not improving Disposition Disposition: Home, Self Care
[2021-01-15] MEDS: Morphine 4 MG/ML Syringe IV ×2 (14:21→16:50)
[2021-01-15] MEDS: 0.9% Normal Saline 1,000 ML 125 ML IV (14:21)
[2021-01-15] MEDS: Ondansetron 4 MG/2 ML Vial IV (14:21)
[2021-01-15 14:24] LABS: Absolute Lymphocyte Count 1.47 X10^3/uL (0.83-4.51); Absolute Neutrophil Count 5.8 X10^3/uL (2.0-7.7); Basophil# 0.05 X10^3/uL; Basophil% 0.6 % (0-1); Eosinophil# 0.11 X10^3/uL; Eosinophils% 1.4 % (0-5); Hematocrit 36.9 % (37-47); Hemoglobin 11.2 g/dL (12.0-15.0); Lymphocyte # 1.47 X10^3/ul (0.83-4.51); Lymphocyte % 18.4 % (19-41); Mean Corp Hgb Conc 30.4 g/dL (32-36); Mean Corpuscular Hgb 27.3 pg (27.0-32.0); Mean Corpuscular Volume 89.8 fL (81-99); Mean Platelet Vol. 9.6 fl (6.2-12.0); Monocyte# 0.51 X10^3/uL; Monocyte% 6.4 % (0-10); NRBC Flagged by Analyzer 0 % (0-5); Neutrophil # 5.84 X10^3/uL (2.7-7.7); Neutrophil % 72.9 % (47-70); Platelet Count 383 K/mm3 (150-450); RBC Distribution Width CV 14.7 % (11.6-14.6); RBC Distribution Width SD 47.7 fl (35.1-43.9); Red Blood Count 4.11 M/mm3 (4.2-5.4)
[2021-01-15 14:28] LABS: Bacteria 0 SEEN /hpf (None Seen); Mucous, Urine 0 SEEN /hpf (<or=2+); Red Blood Cells-Urine 0 SEEN /hpf (0-5)
[2021-01-15 14:33] LABS: Color, Urine Yellow (Yellow); Glucose, Dipstick Normal (Normal); Ketone-Dipstick Negative (Negative); Leukocyte Esterase-Dipstick 25 /ul (Negative); Nitrite-Dipstick Negative (Negative); Occult Blood-Urine 25 /ul (Negative); Protein-Dipstick Negative (Negative); Urine Bilirubin Dipstick Negative (Negative); Urine Clarity Clear (Clear); Urine Urobilinogen Normal (Normal)
[2021-01-15 14:38] LABS: Anion Gap 8 (5-15); BUN 14 mg/dL (7-18); BUN/Creat Ratio 14.5 RATIO (10-20); Chloride 104 mmol/L (98-107); Creatinine, Serum 0.97 mg/dL (0.55-1.02); EST Glomerular Filtration Rate 65 mL/min (>60); Est Glom Filt Rate - Afr Amer 79 mL/min (>60); Estimated Creatinine Clearance 64.95 ml/min; Glucose 139 mg/dL (74-106); Sodium Level 138 mmol/L (136-145); Troponin-I HS 5.9 pg/mL (3.0-53.7)
[2021-01-15 14:45] LABS: Squamous Epithelial Cells - UA 0-5 SEEN /hpf (5-10); White Blood Cells 0-5 SEEN /hpf (0-5)
[2021-01-15 14:54] LABS: Lactic Acid 2.1 mmol/L (0.4-1.9)
[2021-01-15 18:08] VITALS: BP 120/66; PULSE 104; RESP 18; O2SAT 93
[2021-01-15 18:19] LABS: Reflex Lactate? Y
== END 2021-01-15 19:00 | disposition home or self-care (01) ==
PROVIDERS: Emergency Medicine; Emergency Provider Emergency Medicine; PCP Family Medicine
DX: R10.9 Unspecified abdominal pain (principal); E66.01 Morbid (severe) obesity due to excess calories
CPT/HCPCS: 74177; 80048; 81001; 83605; 84484; 85025; 96374; 96375; 96376; 99282; J7030; Q9967; A4216; J2405

== ENCOUNTER 2021-01-29 10:59 | Emergency (ER) | payer MEDICAID, SELFPAY ==
[2021-01-29 10:59] VITALS: BP 163/99; PULSE 120; RESP 20; TEMP 36.8; BMI 58.1
[2021-01-29 11:08] VITALS: PULSE 114; RESP 20; O2SAT 97
--- NOTE | 2021-01-29 11:15 | ED.VIS.GI ---
HPI HPI - GI History of Present Illness Chief Complaint: Abd Pain Detail of Chief Complaint: Abdominal pain x1 month Informant: patient Abdominal Pain/Flank Pain Current Severity: Severe Narrative Narrative: Patient presents with left lower abdominal pain that she has had for over a month. Patient states that she has had multiple visits to the ER for this and also's followed up with her primary care physician. She states she has had a CAT scan and ultrasound of the abdomen which have been unable to find the etiology of her pain. She had been taking oxycodone at home for pain which was not helping her pain at all. Patient states over last 2 days the pains been more severe and she is having hard time sleeping at night. Patient has an appointment to have a colonoscopy on February 08 with a physician in [place]. Patient describes a burning and tearing pain in her left lower quadrant. She denies urinary symptoms. She denies fevers. Food does not seem to affect the pain. She denies any blood in her stool or black tarry stools. [facility] Medical History Anxiety Depression GERD (gastroesophageal reflux disease) Pulmonary embolism Rheumatoid arthritis Home Medications bupropion HCl 300 mg PO DAILY 08/25/18 [History Last Taken 03/14/20 06:00] ropinirole 2 mg PO QHS 08/25/18 [History Last Taken 05/17/19 21:30] folic acid 1 mg PO DAILY 01/23/19 [History Last Taken 05/18/19 07:00] ferrous sulfate 325 mg PO DAILY 03/27/19 [History Last Taken 05/18/19 07:00] venlafaxine 225 mg PO DAILY 04/10/19 [History Last Taken 03/14/20 06:00] prednisone 10 mg PO DAILY 05/18/19 [History Last Taken Unknown] metoprolol succinate 50 mg PO DAILY tab 12/30/19 [Rx Last Taken 03/14/20 06:00] buspirone 10 mg PO PRN PRN 03/04/20 [History Last Taken Unknown] famotidine 20 mg PO QHS 03/04/20 [History Last Taken Unknown] warfarin 5 mg PO DAILY 03/04/20 [History Last Taken Unknown] promethazine 25 mg PO Q4H PRN PRN tab 03/24/20 [Rx Last Taken Unknown] acetaminophen 650 mg PO Q6H PRN PRN tab 05/25/20 [Rx Last Taken Unknown] brexpiprazole [Rexulti] 10 mg PO DAILY 01/29/21 [History Last Taken Unknown] hydrocodone bitartrate 10 mg PO DAILY 01/29/21 [History Last Taken Unknown] hydrocodone-acetaminophen 1 tab PO Q4H PRN PRN 2 Days #10 tablet 01/29/21 [Rx Last Taken Unknown] zolpidem [Ambien] 15 mg PO QHS 01/29/21 [History Last Taken Unknown] Allergy/AdvReac Type Severity Reaction Status Date / Time adhesive tape AdvReac Rash Verified 01/29/21 11:00 Surgical History History of hysterectomy Social History Smoking Status: Never smoker ROS ROS ED Constitutional Constitutional ED: Reports systems reviewed and no addt'l complaints, except as documented; Denies body ache(s), change in weight or chills Eyes Eyes: Denies acute decrease in peripheral vision, change in vision, double vision or loss of vision ENT ENT ED: Reports none; Denies ear pain, lip swelling, loss taste/smell, neck pain, otalgia or sore throat Cardiovascular Cardiovascular: Reports none; Denies abdominal pain, chest pain with activity, leg edema, lightheadedness, palpitations, rapid heart rate or syncope Respiratory/Chest Respiratory/Chest: Reports none; Denies change in mental status, dry cough, dyspnea, hemoptysis, shortness of breath at rest or shortness of breath with exertion Gastrointestinal Gastrointestinal: Reports none and abdominal pain; Denies change in stool character, diarrhea, hematemesis, hematochezia, melena, rectal bleeding or vomiting Genitourinary Genitourinary ED: Reports none; Denies abdominal discomfort, anuria, dysuria, genital pain or polyuria Musculoskeletal Musculoskeletal: Reports none; Denies arthralgias, back pain, difficulty walking, extremity pain, muscle weakness or myalgias Integumentary Reports none; Denies abscess or rash Neurologic Neurologic: Reports none; Denies abnormal gait, confusion, focal weakness, frequent falls, headache(s), loss of vision, numbness, paresthesias, radicular pain, vertigo or weakness Psychiatric Psychiatric: Reports systems reviewed and no addt'l complaints, except as documented and none; Denies behavioral changes, confusion, difficulty concentrating, hallucinations, suicidal ideation, tactile hallucinations or visual hallucinations Endocrine Endocrinology: Denies none, cold intolerance, excessive sweating, fatigue or heat intolerance Hematologic/Lymphatic Hematologic/Lymphatic: Reports none; Denies anemia, easy bleeding or easy bruising Allergic/Immunologic Allergic/Immunologic ED: Denies as per HPI, none, lip swelling, mouth swelling, throat swelling, tongue swelling or hives EXAM Physical Exam Const Vital Signs: 01/29/21 10:59 01/29/21 11:08 01/29/21 11:24 Temperature 98.3 F 98.3 F Temperature Source Temporal Temporal Pulse Rate 120 H 114 H 114 H Respiratory Rate 20 H 20 H 20 H Blood Pressure 163/99 H 163/99 H Blood Pressure Mean 120 120 Pulse Ox 97 97 Oxygen Delivery Method Room Air Room Air 01/29/21 12:17 01/29/21 12:18 Temperature 98.5 F Temperature Source Oral Pulse Rate 107 H Respiratory Rate 18 Blood Pressure 134/77 H 134/77 H Blood Pressure Mean 96 96 Pulse Ox 95 Oxygen Delivery Method Room Air Positive well nourished and well developed General Appearance ED: well developed and NAD HEENT Reports TM's clear and moist mucous membranes normocephalic and atraumatic; Negative for trauma or tenderness Tympanic Membrane ED: Yes TM's clear Eyes PERRL and EOMs intact bilaterally General Eye ED: Negative for pale conjunctiva or scleral icterus Neck no lymphadenopathy, supple and no JVD General: Negative for tenderness Chest Wall inspection of chest normal and palpation of chest normal Chest: Negative for tenderness Resp normal respiratory effort and clear to auscultation bilaterally Effort and Inspection: Negative for respiratory distress or pain with movement Auscultation: Negative for rhonchi, wheezes or diminished lung sounds Cardio regular rate, regular rhythm, S1 normal heart sound, S2 normal heart sound and no murmurs Peripheral Pulses: pulses 2+ throughout GI normal to inspection, nondistended, normoactive bowel sounds, soft to palpation, non-tender, non-distended and no masses GI Narrative: Patient has tenderness to the left lower quadrant on exam. Patient is morbidly obese. No masses palpated. There is no erythema or cellulitis noted underneath her pannus where her pain is. There is no rebound, rigidity, or peritoneal signs. Palpation: tender Back/Spine no CVA tenderness and no thoracic nor lumbar tenderness Extremity normal to inspection General Extremety ED: Negative for edema General Extremity: Negative for edema Neuro oriented x3, CN's II-XII intact bilaterally, no sensory deficits noted and gait normal Sensorium / Orientation: awake, alert, oriented to person, oriented to place and oriented to time Motor Exam: strength 5/5 throughout and strength abnormal Psych mental status grossly normal Skin no rashes or lesions noted and no wounds MDM MDM MDM Narrative Medical decision making narrative: Etiology of patient's pain is unclear. She has had ongoing pain for over a month and has had 2 CAT scans to evaluate this as well as an ultrasound which have been unremarkable. Her lab work again is essentially unremarkable she does have a slightly elevated lactate which she also had last time. I do not feel the lactate significant. I discussed with patient potentially obtaining another scan of the area given that her white blood cell count is just minimally elevated today however I am also concerned about the amount of radiation she is received given her recent other 2 CT scans for the same pain. She looks well and her abdomen exam is benign. She does not want to proceed further with another CT scan. 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 She is wondering if this could be a muscle in the abdomen that is torn potentially as she states that holding the area and pushing up on it sometimes helps with the discomfort. I explained that if she did have a muscle tear typically treatment is conservative and nonsurgical. She will be given a prescription for [place] for pain. She is advised to return if fever, vomiting, or condition should worsen anyway. Lab Data Attestation: I reviewed the patient's lab results. Labs: Laboratory Results - last 24 hr 01/29/21 01/29/21 01/29/21 11:35 11:35 11:35 WBC 11.5 H RBC 4.41 Hgb 11.9 L Hct 38.8 MCV 88.0 MCH 27.0 MCHC 30.7 L RDW Std Deviation 46.7 H RDW Coeff of Chepe 14.5 Plt Count 435 MPV 9.2 Immature Gran % (Auto) 1.000 H Neut % (Auto) 74.0 H Lymph % (Auto) 16.9 L [place] % (Auto) 6.5 Eos % (Auto) 1.0 Baso % (Auto) 0.6 Absolute Neuts (auto) 8.5 H Absolute Lymphs (auto) 1.95 Nucleated RBC % 0 PT 24.6 H INR 2.3 Sodium 136 Potassium 4.3 Chloride 101 Carbon Dioxide 27.0 Anion Gap 8 BUN 16 Creatinine 1.01 Estim Creat Clear Calc 59.96 Est GFR (MDRD) Af Amer 75 Est GFR (MDRD) Non-Af 62 BUN/Creatinine Ratio 15.8 Glucose 100 Lactic Acid Calcium 9.6 Total Bilirubin 0.30 AST 22 ALT 26 Alkaline Phosphatase 100 Total Protein 8.3 H Albumin 3.3 Globulin 5.0 H Albumin/Globulin Ratio 0.7 L Lipase 183 Urine Color Urine Clarity Urine pH Ur Specific [place] Urine Protein Urine Glucose (UA) Urine Ketones Urine Occult Blood Urine Nitrite Urine Bilirubin Urine Urobilinogen Ur Leukocyte Esterase Urine RBC Urine WBC Ur Squamous Epith Cells Urine Bacteria Urine Mucus 01/29/21 01/29/21 11:35 12:15 WBC RBC Hgb Hct MCV MCH MCHC RDW Std Deviation RDW Coeff of [place] Plt Count MPV Immature Gran % (Auto) Neut % (Auto) Lymph % (Auto) [place] % (Auto) Eos % (Auto) Baso % (Auto) Absolute Neuts (auto) Absolute Lymphs (auto) Nucleated RBC % PT INR Sodium Potassium Chloride Carbon Dioxide Anion Gap BUN Creatinine Estim Creat Clear Calc Est GFR (MDRD) Af Amer Est GFR (MDRD) Non-Af BUN/Creatinine Ratio Glucose Lactic Acid 2.2 H* Calcium Total Bilirubin AST ALT Alkaline Phosphatase Total Protein Albumin Globulin Albumin/Globulin Ratio Lipase Urine Color Yellow Urine Clarity Clear Urine pH 6.0 Ur Specific [place] 1.010 Urine Protein Negative Urine Glucose (UA) Normal Urine Ketones Negative Urine Occult Blood 25 H Urine Nitrite Negative Urine Bilirubin Negative Urine Urobilinogen Normal Ur Leukocyte Esterase 500 H Urine RBC 0-5 SEEN Urine WBC 0-5 SEEN Ur Squamous Epith Cells 5-10 SEEN Urine Bacteria 1+ Urine Mucus 0 SEEN Discharge Plan Triage Chief Complaint: Abd Pain ED Provider: Roselyn Lozano Dx/Rx/DC Orders Clinical Impression: Abdominal pain Instructions: ED Abdominal Pain Unkn Cause Fem Prescriptions: New hydrocodone-acetaminophen [hydrocodone-acetaminophen] 1 TABLET tablet 1 tab PO Q4H PRN PRN (Reason: Pain) 2 Days Qty: 10 RF: 0 No Action bupropion HCl 300 MG tablet extended release 24 hr 300 mg PO DAILY RF: 0 ropinirole 2 MG tablet extended release 24 hr 2 mg PO QHS RF: 0 folic acid 1 MG tablet 1 mg PO DAILY RF: 0 ferrous sulfate 325 MG tablet 325 mg PO DAILY RF: 0 venlafaxine 150 MG capsule 225 mg PO DAILY RF: 0 prednisone 1 MG tablet 10 mg PO DAILY RF: 0 metoprolol succinate 50 MG tablet 50 mg PO DAILY RF: 0 buspirone 5 MG tablet 10 mg PO PRN PRN (Reason: Anxiety) RF: 0 famotidine 20 MG tablet 20 mg PO QHS RF: 0 warfarin 5 MG tablet 5 mg PO DAILY RF: 0 promethazine 25 MG tablet 25 mg PO Q4H PRN PRN (Reason: NAUSEA/VOMITING) RF: 0 acetaminophen 325 MG tablet 650 mg PO Q6H PRN PRN (Reason: Pain Score 1-10/Temp > 100.7 F) RF: 0 zolpidem [Ambien] 10 mg Tablet 15 mg PO QHS RF: 0 hydrocodone bitartrate 10 mg Capsule, Oral Only, Er 12hr 10 mg PO DAILY RF: 0 Rexulti 4 mg Tablet 10 mg PO DAILY RF: 0 Primary Care Provider: Tarah Dubon Referrals: Tarah Dubon DO [Primary Care Provider] - 3-5 Days Disposition Disposition: Home, Self Care
[2021-01-29 11:24] VITALS: BP 163/99; PULSE 114; RESP 20; TEMP 36.8; O2SAT 97
[2021-01-29] MEDS: 0.9% Normal Saline 1,000 ML 125 ML IV (11:33)
[2021-01-29] MEDS: Ondansetron 4 MG/2 ML Vial IV (11:37)
[2021-01-29] MEDS: Morphine 4 MG/ML Syringe IV (11:38)
[2021-01-29 11:43] LABS: Absolute Lymphocyte Count 1.95 X10^3/uL (0.83-4.51); Absolute Neutrophil Count 8.5 X10^3/uL (2.0-7.7); Basophil# 0.07 X10^3/uL; Basophil% 0.6 % (0-1); Eosinophil# 0.11 X10^3/uL; Hematocrit 38.8 % (37-47); Hemoglobin 11.9 g/dL (12.0-15.0); Lymphocyte # 1.95 X10^3/ul (0.83-4.51); Lymphocyte % 16.9 % (19-41); Mean Corp Hgb Conc 30.7 g/dL (32-36); Mean Platelet Vol. 9.2 fl (6.2-12.0); Monocyte# 0.75 X10^3/uL; Monocyte% 6.5 % (0-10); NRBC Flagged by Analyzer 0 % (0-5); Neutrophil # 8.53 X10^3/uL (2.7-7.7); Platelet Count 435 K/mm3 (150-450); RBC Distribution Width CV 14.5 % (11.6-14.6); RBC Distribution Width SD 46.7 fl (35.1-43.9); Red Blood Count 4.41 M/mm3 (4.2-5.4); White Blood Count 11.5 K/mm3 (4.4-11.0)
[2021-01-29 11:54] LABS: International Normalized Ratio 2.3; Prothrombin Time (Protime)PT. 24.6 SECONDS (11.7-14.9)
[2021-01-29 11:58] LABS: ALB/GLOB Ratio 0.7 RATIO (0.9-2.4); AST(SGOT) 22 U/L (15-37); Alanine Aminotransfer ALT/SGPT 26 U/L (13-56); Albumin, Serum 3.3 g/dL (3.2-5.0); Alkaline Phosphatase 100 U/L (45-117); Anion Gap 8 (5-15); BUN 16 mg/dL (7-18); BUN/Creat Ratio 15.8 RATIO (10-20); Calcium,Total 9.6 mg/dL (8.5-10.1); Chloride 101 mmol/L (98-107); Creatinine, Serum 1.01 mg/dL (0.55-1.02); EST Glomerular Filtration Rate 62 mL/min (>60); Est Glom Filt Rate - Afr Amer 75 mL/min (>60); Estimated Creatinine Clearance 59.96 ml/min; Glucose 100 mg/dL (74-106); Lipase 183 U/L (73-393); Potassium 4.3 mmol/L (3.5-5.1); Protein, Total 8.3 g/dL (6.4-8.2); Sodium Level 136 mmol/L (136-145)
[2021-01-29 12:07] LABS: Lactic Acid 2.2 mmol/L (0.4-1.9)
[2021-01-29 12:17] VITALS: BP 134/77; PULSE 107; RESP 18; TEMP 36.9; O2SAT 95
[2021-01-29 12:18] VITALS: BP 134/77
[2021-01-29 12:18] LABS: Mucous, Urine 0 SEEN /hpf (<or=2+)
[2021-01-29 12:22] LABS: Color, Urine Yellow (Yellow); Glucose, Dipstick Normal (Normal); Ketone-Dipstick Negative (Negative); Leukocyte Esterase-Dipstick 500 /ul (Negative); Nitrite-Dipstick Negative (Negative); Occult Blood-Urine 25 /ul (Negative); Protein-Dipstick Negative (Negative); Urine Bilirubin Dipstick Negative (Negative); Urine Clarity Clear (Clear); Urine Urobilinogen Normal (Normal)
[2021-01-29 12:27] LABS: Bacteria 1+ /hpf (None Seen); Red Blood Cells-Urine 0-5 SEEN /hpf (0-5); Squamous Epithelial Cells - UA 5-10 SEEN /hpf (5-10); White Blood Cells 0-5 SEEN /hpf (0-5)
[2021-01-29 12:46] VITALS: BP 137/99; PULSE 60; RESP 18; O2SAT 95
[2021-01-29 15:37] LABS: Reflex Lactate? Y
== END 2021-01-29 12:47 | disposition home or self-care (01) ==
PROVIDERS: Emergency Provider Emergency Medicine; PCP Family Medicine
DX: R10.32 Left lower quadrant pain (principal); F41.9 Anxiety disorder, unspecified; Z79.01 Long term (current) use of anticoagulants; Z79.899 Other long term (current) drug therapy
CPT/HCPCS: 80053; 81001; 83605; 83690; 85025; 85610; 96374; 96375; 99284; J7030; J2405

== ENCOUNTER 2021-08-28 11:26 | Outpatient (CLI) | payer BC, MEDICAID, SELFPAY ==
[2021-08-31 00:06] LABS: Chlamydia By Nucleic Acid AMP Negative (Negative)
[2021-08-31 10:59] LABS: Gonococcus By Nucleic Acid AMP Negative (Negative)
== END 2021-08-28 23:59 | disposition home or self-care (01) ==
LOC: LABSPEC 11:32
PROVIDERS: PCP Family Medicine; Visit Provider Student in an Organized Health Care Education/Training Program
DX: Z11.3 Encounter for screening for infections with a predominantly sexual mode of transmission (principal)
CPT/HCPCS: 87491; 87591

== ENCOUNTER 2021-10-17 19:07 | Emergency (ER) | payer BC, MEDICAID, SELFPAY ==
[2021-10-17 19:08] VITALS: BP 183/77; PULSE 146; RESP 20; TEMP 36.6; O2SAT 96; BMI 58.1
--- NOTE | 2021-10-17 19:18 | EKG12_ITS ---
Test Reason : CP Blood Pressure : / mmHG Vent. Rate : 134 BPM Atrial Rate : 134 BPM P-R Int : 132 ms QRS Dur : 076 ms QT Int : 280 ms P-R-T Axes : 050 079 100 degrees QTc Int : 418 [address] tachycardia Nons[address] ST and T wave abnormality Abnormal ECG Confirmed by BLAKE LEON, MILY ([id number]), publishing editor GILBERT ZHOU ([id number]) on 10/18/2021 1:45:15 PM Referred By: TRACEY Confirmed By:MILY LOZANO MD
[2021-10-17 19:53] LABS: Absolute Lymphocyte Count 2.33 X10^3/uL (0.83-4.51); Basophil# 0.03 X10^3/uL; Basophil% 0.2 % (0-1); Eosinophil# 0.07 X10^3/uL; Eosinophils% 0.5 % (0-5); Hemoglobin 12.2 g/dL (12.0-15.0); Lymphocyte # 2.33 X10^3/ul (0.83-4.51); Lymphocyte % 15.2 % (19-41); Mean Corp Hgb Conc 31.3 g/dL (32-36); Mean Corpuscular Hgb 28.5 pg (27.0-32.0); Mean Corpuscular Volume 91.1 fL (81-99); Mean Platelet Vol. 9.6 fl (6.2-12.0); Monocyte% 5.2 % (0-10); NRBC Flagged by Analyzer 0 % (0-5); Neutrophil # 12.02 X10^3/uL (2.7-7.7); Neutrophil % 78.6 % (47-70); Platelet Count 417 K/mm3 (150-450); RBC Distribution Width CV 15.1 % (11.6-14.6); RBC Distribution Width SD 50.2 fl (35.1-43.9); Red Blood Count 4.28 M/mm3 (4.2-5.4); White Blood Count 15.3 K/mm3 (4.4-11.0)
[2021-10-17 20:10] LABS: Anion Gap 9 (5-15); BUN 13 mg/dL (7-18); BUN/Creat Ratio 11.3 RATIO (10-20); Calcium,Total 9.6 mg/dL (8.5-10.1); Chloride 100 mmol/L (98-107); Creatinine, Serum 1.15 mg/dL (0.55-1.02); EST Glomerular Filtration Rate 53 mL/min (>60); Est Glom Filt Rate - Afr Amer 64 mL/min (>60); Estimated Creatinine Clearance 54.79 ml/min; Glucose 138 mg/dL (74-106); Potassium 3.8 mmol/L (3.5-5.1); Sodium Level 135 mmol/L (136-145); Troponin-I HS < 3 pg/mL (3.0-54.0)
[2021-10-17 21:00] VITALS: BP 145/92; PULSE 124; RESP 35; O2SAT 100
--- NOTE | 2021-10-17 21:07 | RAD_ITS ---
STUDY: X-RAY CHEST REASON FOR EXAM: Female, 50 years old. chest pain TECHNIQUE: Portable upright AP exam. COMPARISON: May 24, 2020, April 11, 2020, January 26, 2020. FINDINGS: The lungs are clear and mildly underinflated. There is no demonstrated pleural abnormality. Normal size heart. Normal mediastinum and xiomara. Normal visualized pulmonary arteries. Normal visualized aortic arch and descending thoracic aorta. Normal visualized thoracic spine. Normal visualized ribs, clavicles, and shoulders. A moderate hiatal hernia projects over the heart, this was better seen on prior exam with gas and fluid. RAD/Chest 1 View (Portable) IMPRESSION: Stable chest. Hiatal hernia. Electronically Signed: Arianna Natarajan MD at 21:50 EDT ,
--- NOTE | 2021-10-17 21:22 | ED.VIS.CHEST ---
HPI History of Present Illness Chief Complaint: Chest Pain Informant: patient Onset/Context/Timing Onset: Yesterday Activity at onset: sudden Timing: Waxes and wanes Quality: Positive for Stabbing Location: Right Chest Worsened By: Breathing and Coughing Relieved By: Nothing Associated Symptoms: Positive for Dyspnea, Cough and Lightheadedness; Negative for Nausea, Vomiting, Diaphoresis, Fever, Acid Reflux and Palpitations Narrative Narrative: Patient presents with chest pain that began last night. Patient states it began rather suddenly. Patient describes it as a stabbing pain. Patient states it is localized to the right side of her chest. Patient states it is worse with breathing and coughing. Patient states nothing seems to help with it. Patient also admits to some dizziness. Patient also admits to some tinnitus. Patient admits to a cough and shortness of breath. Patient denies any nausea or vomiting. Patient denies any diaphoresis. Patient does have a history of pulmonary embolism CVD Risk Factors: Negative for Hypertension, Diabetes, Hypercholesterolemia, Family History 1' </=55 and Smoking PE Risk Factors: Positive for Prior DVT or PE [facility] Medical History Anxiety Depression GERD (gastroesophageal reflux disease) Pulmonary embolism Rheumatoid arthritis Home Medications bupropion HCl 300 mg PO DAILY 08/25/18 [History Last Taken 03/14/20 06:00] ropinirole 2 mg PO QHS 08/25/18 [History Last Taken 05/17/19 21:30] folic acid 1 mg PO DAILY 01/23/19 [History Last Taken 05/18/19 07:00] ferrous sulfate 325 mg PO DAILY 03/27/19 [History Last Taken 05/18/19 07:00] venlafaxine 225 mg PO DAILY 04/10/19 [History Last Taken 03/14/20 06:00] prednisone 10 mg PO DAILY 05/18/19 [History Last Taken Unknown] metoprolol succinate 50 mg PO DAILY tab 12/30/19 [Rx Last Taken 03/14/20 06:00] buspirone 10 mg PO PRN PRN 03/04/20 [History Last Taken Unknown] famotidine 20 mg PO QHS 03/04/20 [History Last Taken Unknown] warfarin 5 mg PO DAILY 03/04/20 [History Last Taken Unknown] promethazine 25 mg PO Q4H PRN PRN tab 03/24/20 [Rx Last Taken Unknown] acetaminophen 650 mg PO Q6H PRN PRN tab 05/25/20 [Rx Last Taken Unknown] brexpiprazole [Rexulti] 10 mg PO DAILY 01/29/21 [History Last Taken Unknown] hydrocodone bitartrate 10 mg PO DAILY 01/29/21 [History Last Taken Unknown] hydrocodone-acetaminophen 1 tab PO Q4H PRN PRN 2 Days #10 tablet 01/29/21 [Rx Last Taken Unknown] zolpidem [Ambien] 15 mg PO QHS 01/29/21 [History Last Taken Unknown] Allergy/AdvReac Type Severity Reaction Status Date / Time adhesive tape AdvReac Rash Verified 10/17/21 19:10 Surgical History History of hysterectomy Social History Smoking Status: Never smoker ROS ROS ED Constitutional Constitutional ED: Reports chills and subjective; Denies fever(s) Eyes Eyes: Reports blurry vision right; Denies diplopia ENT ENT ED: Denies rhinorrhea or sore throat Cardiovascular Cardiovascular: Reports chest pain; Denies palpitations Respiratory/Chest Respiratory/Chest: Reports cough and dyspnea Gastrointestinal Gastrointestinal: Denies abdominal pain, nausea or vomiting Genitourinary Genitourinary ED: Denies dysuria or hematuria Musculoskeletal Musculoskeletal: Reports back pain; Denies neck pain Integumentary Denies abscess or rash Neurologic Neurologic: Reports headache(s); Denies weakness Allergic/Immunologic Allergic/Immunologic ED: Denies mouth swelling or urticaria EXAM Physical Exam Const Vital Signs: 10/17/21 19:08 10/17/21 21:00 10/17/21 21:01 Temperature 97.8 F Temperature Source Temporal Pulse Rate 146 H 124 H Respiratory Rate 20 H 35 H Respiratory Effort Normal Non-Labored Blood Pressure 183/77 H 145/92 H Blood Pressure Mean 112 109 Pulse Ox 96 100 Oxygen Delivery Method Room Air Room Air 10/17/21 22:05 Temperature Temperature Source Pulse Rate 89 Respiratory Rate 16 Respiratory Effort Blood Pressure 151/84 H Blood Pressure Mean 106 Pulse Ox 99 Oxygen Delivery Method Room Air Positive well nourished, well developed and obese General Appearance ED: well developed and NAD Nutritional Appearance: obese HEENT normocephalic and atraumatic Eyes PERRL and EOMs intact bilaterally Neck supple and no JVD Chest Wall inspection of chest normal and palpation of chest normal Resp normal respiratory effort and clear to auscultation bilaterally Effort and Inspection: Negative for respiratory distress Cardio regular rhythm and no murmurs Rate: tachycardic GI normal to inspection, nondistended, normoactive bowel sounds, soft to palpation, non-tender and non-distended Extremity normal to inspection General Extremety ED: Negative for edema or tenderness General Extremity: Negative for edema Neuro oriented x3, CN's II-XII intact bilaterally and no sensory deficits noted Sensorium / Orientation: awake and alert Motor Exam: strength 5/5 throughout Psych mental status grossly normal Heart Score History: Slightly/Non-Suspicious ECG: Nonspecific Repolarization Age: >45 - <65 years Risk Factors: No Risk Factors Troponin: </= Normal Limit Score: 2 MDM MDM MDM Narrative Medical decision making narrative: EKG was obtained. On my interpretation, it shows a sinus tachycardia with a rate of 134. There are nonspecific ST-T wave changes. MD interval, QRS interval, and QTc intervals are normal. [place] is normal. CBC shows a mild leukocytosis of 15.3. Basic metabolic profile shows a slightly elevated creatinine of 1.15. GFR was 53. High-sensitivity troponin was less than 3. Patient was given IV fluids. CTA of the chest was obtained. There is no evidence of pulmonary embolism or aortic dissection. Patient was advised of her findings. Patient was instructed to take Tylenol or ibuprofen as needed for pain. Patient has a HEART score of 2. Patient was advised that this is low risk for acute cardiac event. Patient was instructed to follow-up with her primary care physician in 5 to 7 days. Patient understood and was agreeable with the plan. All questions were answered. Lab Data Attestation: I reviewed the patient's lab results. Labs: Laboratory Results - last 24 hr 10/17/21 10/17/21 19:24 19:24 WBC 15.3 H RBC 4.28 Hgb 12.2 Hct 39.0 MCV 91.1 MCH 28.5 MCHC 31.3 L RDW Std Deviation 50.2 H RDW Coeff of [place]pe 15.1 H Plt Count 417 MPV 9.6 Immature Gran % (Auto) 0.300 Neut % (Auto) 78.6 H Lymph % (Auto) 15.2 L [place] % (Auto) 5.2 Eos % (Auto) 0.5 Baso % (Auto) 0.2 Absolute Neuts (auto) 12.0 H Absolute Lymphs (auto) 2.33 Nucleated RBC % 0 Sodium 135 L Potassium 3.8 Chloride 100 Carbon Dioxide 26.0 Anion Gap 9 BUN 13 Creatinine 1.15 H Estim Creat Clear Calc 54.79 Est GFR (MDRD) Af Amer 64 Est GFR (MDRD) Non-Af 53 L BUN/Creatinine Ratio 11.3 Glucose 138 H Calcium 9.6 Troponin I High Sens < 3 L Radiography Chest X-Ray - ED: 1 View, Read by ED Physician, Read by Radiologist and No Acute Disease Diagnostic Testing: Clinical Impression(s) from Imaging Studies Chest X-Ray 10/17/21 21:07 IMPRESSION: Stable chest. Hiatal hernia. Electronically Signed: Arianna Natarajan MD at 21:50 EDT , Chest CTA 10/17/21 21:30 EKG Initial EKG: Attestation: I personally reviewed and interpreted this EKG as follows: Interpretation: Sinus Tachycardia (134) and Non-Specific ST Changes Prior EKG tracings: available for review Prior: Unchanged (05/24/2020) Discharge Plan Triage Chief Complaint: Chest Pain ED Provider: Leland Deleon Dx/Rx/DC Orders Clinical Impression: Chest pain, Sinus tachycardia Instructions: ED Chest Pain, Uncertain Cause Prescriptions: No Action bupropion HCl 300 MG tablet extended release 24 hr 300 mg PO DAILY RF: 0 ropinirole 2 MG tablet extended release 24 hr 2 mg PO QHS RF: 0 folic acid 1 MG tablet 1 mg PO DAILY RF: 0 ferrous sulfate 325 MG tablet 325 mg PO DAILY RF: 0 venlafaxine 150 MG capsule 225 mg PO DAILY RF: 0 prednisone 1 MG tablet 10 mg PO DAILY RF: 0 metoprolol succinate 50 MG tablet 50 mg PO DAILY RF: 0 buspirone 5 MG tablet 10 mg PO PRN PRN (Reason: Anxiety) RF: 0 famotidine 20 MG tablet 20 mg PO QHS RF: 0 warfarin 5 MG tablet 5 mg PO DAILY RF: 0 promethazine 25 MG tablet 25 mg PO Q4H PRN PRN (Reason: NAUSEA/VOMITING) RF: 0 acetaminophen 325 MG tablet 650 mg PO Q6H PRN PRN (Reason: Pain Score 1-10/Temp > 100.7 F) RF: 0 zolpidem [Ambien] 10 mg Tablet 15 mg PO QHS RF: 0 hydrocodone bitartrate 10 mg Capsule, Oral Only, Er 12hr 10 mg PO DAILY RF: 0 Rexulti 4 mg Tablet 10 mg PO DAILY RF: 0 hydrocodone-acetaminophen [hydrocodone-acetaminophen] 1 TABLET tablet 1 tab PO Q4H PRN PRN (Reason: Pain) 2 Days Qty: 10 RF: 0 Primary Care Provider: Tarah Dubon Referrals: Tarah Dubon DO [Primary Care Provider] - 3-5 Days Disposition Disposition: Home, Self Care
--- NOTE | 2021-10-17 21:30 | CT_ITS ---
EXAM: CT angiogram chest. HISTORY: Chest pain TECHNIQUE: CTA Chest WO/W Contrast Injection 1.25 mm axial images, coronal and sagittal reconstructions COMPARISON: January 15, 2021. LIMITATIONS: Artifacts due to body habitus and mild motion. HEART: LUNGS: Mild groundglass opacities in the left upper lobe, left lingula, lateral left lower lobe possibly groundglass infiltrates due to Covid or other pneumonitis but unilateral, clear right lung. AORTA/GREAT VESSELS: No aneurysm or dissection. Aberrant right subclavian artery and left vertebral artery origin from the arch are noted, common developmental variations. PULMONARY VESSELS: Normal. PLEURA: Normal. MEDIASTINUM: There is a large hiatal hernia containing moderate fluid, roughly 1/3 of the stomach or the gastric fundus is herniated. Also incidentally noted is aberrant right subclavian artery extending posterior to the esophagus and trachea. No significant mediastinal adenopathy. UPPER ABDOMEN: Low-attenuation fatty-appearing liver, not fully included. The region of the gallbladder is not included. Moderate-large hiatal hernia. BONES/SOFT TISSUES: Normal. OTHER: None. CONCLUSION: No suspicious vascular findings. Incidentally noted aberrant right subclavian artery. Mild groundglass scattered opacities in the left lung, suspicion of mild pneumonitis. Moderate-large hiatal hernia without obvious obstruction. Artifacts and mildly suboptimal exam. Fatty liver. Electronically Signed: Arianna Natarajan MD at 22:27 EDT , CT/CTA Chest W/WO Contrast
[2021-10-17] MEDS: 0.9% Normal Saline 1,000 ML 1000 ML IV (21:35)
[2021-10-17 22:05] VITALS: BP 151/84; PULSE 89; RESP 16; O2SAT 99
[2021-10-17 23:38] VITALS: BP 103/58; PULSE 108; RESP 20; O2SAT 96
== END 2021-10-17 23:46 | disposition home or self-care (01) ==
PROVIDERS: Emergency Provider Emergency Medicine; PCP Family Medicine; Visit Provider Emergency Medicine
DX: R07.9 Chest pain, unspecified (principal); R00.0 Tachycardia, unspecified; E66.9 Obesity, unspecified; Z86.711 Personal history of pulmonary embolism
CPT/HCPCS: 71045; 71275; 80048; 84484; 85025; 93005; 96360; 96361; 99283; J7030; Q9967; A4216

== ENCOUNTER 2021-12-26 05:35 | Emergency (ER) | payer MEDICARE, MEDICAID, SELFPAY ==
[2021-12-26 05:36] VITALS: PULSE 139; RESP 24; TEMP 36.3; O2SAT 96; BMI 60.0
[2021-12-26 05:39] VITALS: BP 110/56; PULSE 139; RESP 24; TEMP 36.3; O2SAT 96
[2021-12-26 05:42] VITALS: O2SAT 97
--- NOTE | 2021-12-26 05:46 | RAD_ITS ---
STUDY: X-RAY CHEST REASON FOR EXAM: Female, 51 years old. cough TECHNIQUE: Single AP portable view of the chest. COMPARISON: None. FINDINGS: The lungs are clear and expanded. There is no demonstrated pleural abnormality. Normal size heart. Normal mediastinum and xiomara. Normal visualized pulmonary arteries. Normal visualized aortic arch and descending thoracic aorta. Normal visualized thoracic spine. There is degenerative osteoarthritis of the bilateral shoulders. There is a hiatal hernia measures 8 cm. RAD/Chest 1 View (Portable) IMPRESSION: There is a hiatal hernia measures 8 cm. Electronically Signed: Luz Elena Fernandes MD at 6:30 EDT ,
--- NOTE | 2021-12-26 05:46 | EKG12_ITS ---
Test Reason : SOB Blood Pressure : / mmHG Vent. Rate : 123 BPM Atrial Rate : 123 BPM P-R Int : 136 ms QRS Dur : 084 ms QT Int : 308 ms P-R-T Axes : 038 059 056 degrees QTc Int : 440 ms Sinus tachycardia Otherwise normal ECG Confirmed by LATIA LEON, VALENCIA ([id number]), senior editor GILBERT ZHOU ([id number]) on 12/27/2021 8:50:40 AM Referred By: SILVESTRE Confirmed By:VALENCIA JEFFERY MD
--- NOTE | 2021-12-26 05:48 | ED.VIS.DYS ---
HPI <Dr. Dhaval Saez DO - Last Filed: 12/26/21 06:29> History of Present Illness Chief Complaint: Shortness of Breath Informant: patient Narrative Narrative: Increasing productive cough for the past 3 days. No fevers. Headache with cough. Chest pains with cough. 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 History of MTHFR. Last INR check 2 weeks ago normal per patient. Denies sick contacts. Denies any loss of taste or smell. Denies vomiting or diarrhea. Nonvaccinated for COVID. History of sinus tachycardia on metoprolol 50 mg mornings. Last dose 8 AM yesterday morning. Patient presents concerns for pneumonia with a history of this. Prior similar symptoms: Yes [facility] <Dr. Dhaval Saez DO - Last Filed: 12/26/21 06:29> [facility] Medical History Anxiety Depression GERD (gastroesophageal reflux disease) Pulmonary embolism Rheumatoid arthritis Home Medications bupropion HCl 300 mg PO DAILY 08/25/18 [History Last Taken 03/14/20 06:00] ropinirole 2 mg PO QHS 08/25/18 [History Last Taken 05/17/19 21:30] folic acid 1 mg PO DAILY 01/23/19 [History Last Taken 05/18/19 07:00] ferrous sulfate 325 mg PO DAILY 03/27/19 [History Last Taken 05/18/19 07:00] venlafaxine 225 mg PO DAILY 04/10/19 [History Last Taken 03/14/20 06:00] prednisone 10 mg PO DAILY 05/18/19 [History Last Taken Unknown] metoprolol succinate 50 mg PO DAILY tab 12/30/19 [Rx Last Taken 03/14/20 06:00] buspirone 10 mg PO PRN PRN 03/04/20 [History Last Taken Unknown] famotidine 20 mg PO QHS 03/04/20 [History Last Taken Unknown] warfarin 5 mg PO SUTUTHSA 03/04/20 [History Last Taken Unknown] promethazine 25 mg PO Q4H PRN PRN tab 03/24/20 [Rx Last Taken Unknown] acetaminophen 650 mg PO Q6H PRN PRN tab 05/25/20 [Rx Last Taken Unknown] brexpiprazole [Rexulti] 10 mg PO DAILY 01/29/21 [History Last Taken Unknown] hydrocodone bitartrate 10 mg PO DAILY 01/29/21 [History Last Taken Unknown] hydrocodone-acetaminophen 1 tab PO Q4H PRN PRN 2 Days #10 tablet 01/29/21 [Rx Last Taken Unknown] zolpidem [Ambien] 15 mg PO QHS 01/29/21 [History Last Taken Unknown] albuterol sulfate [Ventolin HFA] 1 - 2 puff INHALATION Q4H PRN PRN #1 inhaler 12/26/21 [Rx Last Taken Unknown] benzonatate 100 mg PO TID PRN PRN #20 cap 12/26/21 [Rx Last Taken Unknown] warfarin [Coumadin] 2.5 mg PO MOWEFR 12/26/21 [History Last Taken Unknown] Allergy/AdvReac Type Severity Reaction Status Date / Time adhesive tape AdvReac Rash Verified 12/26/21 05:40 Surgical History History of hysterectomy Social History Smoking Status: Never smoker ROS <Dr. Dhaval Saez DO - Last Filed: 12/26/21 06:29> ROS ED Constitutional Constitutional ED: Denies chills, fever(s) or sweats Eyes Eyes: Denies change in vision ENT ENT ED: Denies dysphagia or sore throat Cardiovascular Cardiovascular: Reports chest pain; Denies leg edema, palpitations or racing heartbeat Respiratory/Chest Respiratory/Chest: Reports cough and dyspnea; Denies dyspnea on exertion Gastrointestinal Gastrointestinal: Denies abdominal pain, diarrhea, nausea or vomiting Genitourinary Genitourinary ED: Denies dysuria, hematuria or urinary frequency Musculoskeletal Musculoskeletal: Denies back pain, extremity pain or neck pain Integumentary Denies rash or wounds Neurologic Neurologic: Reports headache(s); Denies paresthesias or weakness EXAM <Dr. Dhaval Saez DO - Last Filed: 12/26/21 06:29> Physical Exam Const Vital Signs: 12/26/21 05:36 12/26/21 05:39 12/26/21 05:42 Temperature 97.4 F L 97.4 F L Temperature Source Temporal Temporal Pulse Rate 139 H 139 H Respiratory Rate 24 H 24 H Respiratory Effort Short of Breath Labored Respiratory Depth Deep Respiratory Pattern Tachypnea Blood Pressure 110/56 L Blood Pressure Mean 74 Pulse Ox 96 96 Oxygen Delivery Method Room Air Room Air Room Air 12/26/21 06:28 Temperature 97.6 F L Temperature Source Temporal Pulse Rate 124 H Respiratory Rate 20 H Respiratory Effort Respiratory Depth Respiratory Pattern Blood Pressure 102/61 Blood Pressure Mean 74 Pulse Ox 95 Oxygen Delivery Method Room Air Positive well nourished, well developed and obese General Appearance ED: well developed and NAD Nutritional Appearance: obese HEENT HEENT Narrative: Mild dry mucosal membranes. normocephalic and atraumatic Eyes PERRL, EOMs intact bilaterally and conjunctivae normal General Eye ED: Yes normal appearance of both eyes Neck no lymphadenopathy and supple General: Negative for tenderness Chest Wall Chest: Negative for tenderness Resp normal respiratory effort and normal air movement Effort and Inspection: symmetric chest movement; Negative for respiratory distress Cardio regular rate and no murmurs Rate: tachycardic Peripheral Pulses: pulses 2+ throughout GI normal to inspection, nondistended, normoactive bowel sounds and non-tender Palpation: Negative for guarding or rebound tenderness present Back/Spine no CVA tenderness and no thoracic nor lumbar tenderness Extremity normal to inspection General Extremety ED: Negative for edema or tenderness General Extremity: Negative for edema Neuro oriented x3 and no sensory deficits noted Sensorium / Orientation: awake and alert Skin no rashes or lesions noted and no wounds <Dr. Travon Conner MD - Last Filed: 12/26/21 07:50> Physical Exam Const Vital Signs: 12/26/21 05:36 12/26/21 05:39 12/26/21 05:42 Temperature 97.4 F L 97.4 F L Temperature Source Temporal Temporal Pulse Rate 139 H 139 H Respiratory Rate 24 H 24 H Respiratory Effort Short of Breath Labored Respiratory Depth Deep Respiratory Pattern Tachypnea Blood Pressure 110/56 L Blood Pressure Mean 74 Pulse Ox 96 96 Oxygen Delivery Method Room Air Room Air Room Air 12/26/21 06:28 Temperature 97.6 F L Temperature Source Temporal Pulse Rate 124 H Respiratory Rate 20 H Respiratory Effort Respiratory Depth Respiratory Pattern Blood Pressure 102/61 Blood Pressure Mean 74 Pulse Ox 95 Oxygen Delivery Method Room Air MDM <Dr. Dhaval Saez DO - Last Filed: 12/26/21 06:29> [facility] Narrative Medical decision making narrative: Patient afebrile but tachycardic however states chronically tachycardic. EKG sinus rate of 123. Slight dry mucosal membranes will give fluids and will reevaluate heart rate. Pulse ox is stable. Will obtain chest x-ray labs and will check her INR. COVID testing also sent. 0625: White count 10.5. Chest x-ray 1 view reviewed by myself shows no acute process. INR returned subtherapeutic at 1.7. She does report exertional dyspnea. We will obtain CT of the chest to rule out PE versus pneumonia not seen on chest x-ray. COVID testing pending. Heart rate in the 120s will give her metoprolol. Pulse ox on reevaluation 94 to 96%. Lab Data Attestation: I reviewed the patient's lab results. Labs: Laboratory Results - last 24 hr 12/26/21 12/26/21 12/26/21 05:53 05:53 05:53 WBC 10.5 RBC 4.41 Hgb 11.9 L Hct 39.2 MCV 88.9 MCH 27.0 MCHC 30.4 L RDW Std Deviation 49.2 H RDW Coeff of Chepe 14.9 H Plt Count 362 MPV 9.1 Immature Gran % (Auto) 0.300 Neut % (Auto) 60.3 Lymph % (Auto) 26.3 Mineral % (Auto) 9.2 Eos % (Auto) 3.5 Baso % (Auto) 0.4 Absolute Neuts (auto) 6.3 Absolute Lymphs (auto) 2.75 Nucleated RBC % 0 PT 19.6 H INR 1.7 Sodium 135 L Potassium 3.9 Chloride 101 Carbon Dioxide 24.0 Anion Gap 10 BUN 13 Creatinine 1.01 Estim Creat Clear Calc 61.69 Est GFR (MDRD) Af Amer 74 Est GFR (MDRD) Non-Af 61 BUN/Creatinine Ratio 12.9 Glucose 115 H Calcium 8.8 Total Bilirubin 0.20 AST 19 ALT 25 Alkaline Phosphatase 102 Troponin I High Sens 4 Total Protein 7.8 Albumin 3.1 L Globulin 4.7 H Albumin/Globulin Ratio 0.7 L Radiography Diagnostic Testing: Clinical Impression(s) from Imaging Studies Chest X-Ray 12/26/21 05:46 IMPRESSION: There is a hiatal hernia measures 8 cm. Electronically Signed: Luz Elena Fernandes MD at 6:30 EDT , Chest CTA 12/26/21 06:27 IMPRESSION: No demonstrated pulmonary embolism or arterial dissection. There is a hiatal hernia measures 11 cm. Electronically Signed: Luz Elena Fernandes MD at 7:34 EDT , EKG Initial EKG: Attestation: I personally reviewed and interpreted this EKG as follows: Comments: Sinus rate of 123, no ST or T wave changes. <Dr. Travon Conner MD - Last Filed: 12/26/21 07:50> MDM MDM Narrative Medical decision making narrative: Took over care of this patient at checkout/shift change. CT returned without any acute findings. No infiltrates/pneumonia, no pulmonary emboli present right now. Consistent with bronchitis. No antibiotics indicated at this time. Dr. Saez wrote for Tess[place] I am adding a prescription for an albuterol inhaler to use as needed for wheezing/dyspnea. She has been walking back and forth to the bathroom without significant discomfort or hypoxemia. We discussed reasons to return and follow-up, symptomatic care advised she is comfortable with the plan and taking her metoprolol when she gets home. Lab Data Labs: Laboratory Results - last 24 hr 12/26/21 12/26/21 12/26/21 05:53 05:53 05:53 WBC 10.5 RBC 4.41 Hgb 11.9 L Hct 39.2 MCV 88.9 MCH 27.0 MCHC 30.4 L RDW Std Deviation 49.2 H RDW Coeff of Chepe 14.9 H Plt Count 362 MPV 9.1 Immature Gran % (Auto) 0.300 Neut % (Auto) 60.3 Lymph % (Auto) 26.3 Mineral % (Auto) 9.2 Eos % (Auto) 3.5 Baso % (Auto) 0.4 Absolute Neuts (auto) 6.3 Absolute Lymphs (auto) 2.75 Nucleated RBC % 0 PT 19.6 H INR 1.7 Sodium 135 L Potassium 3.9 Chloride 101 Carbon Dioxide 24.0 Anion Gap 10 BUN 13 Creatinine 1.01 Estim Creat Clear Calc 61.69 Est GFR (MDRD) Af Amer 74 Est GFR (MDRD) Non-Af 61 BUN/Creatinine Ratio 12.9 Glucose 115 H Calcium 8.8 Total Bilirubin 0.20 AST 19 ALT 25 Alkaline Phosphatase 102 Troponin I High Sens 4 Total Protein 7.8 Albumin 3.1 L Globulin 4.7 H Albumin/Globulin Ratio 0.7 L Radiography Diagnostic Testing: Clinical Impression(s) from Imaging Studies Chest X-Ray 12/26/21 05:46 IMPRESSION: There is a hiatal hernia measures 8 cm. Electronically Signed: Luz Elena Fernandes MD at 6:30 EDT , Chest CTA 12/26/21 06:27 IMPRESSION: No demonstrated pulmonary embolism or arterial dissection. There is a hiatal hernia measures 11 cm. 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, History of venous thromboembolism, Subtherapeutic international normalized ratio (INR) Instructions: ED Bronchitis with Wheezing (Adult) Prescriptions: New benzonatate [benzonatate] 100 MG capsule 100 mg PO TID PRN PRN (Reason: Cough) Qty: 20 RF: 0 albuterol sulfate [Ventolin HFA] 1 INHALER inhaler 1 - 2 puff inhalation Q4H PRN PRN (Reason: Wheezing) Qty: 1 RF: 0 No Action bupropion HCl 300 MG tablet extended release 24 hr 300 mg PO DAILY RF: 0 ropinirole 2 MG tablet extended release 24 hr 2 mg PO QHS RF: 0 folic acid 1 MG tablet 1 mg PO DAILY RF: 0 ferrous sulfate 325 MG tablet 325 mg PO DAILY RF: 0 venlafaxine 150 MG capsule 225 mg PO DAILY RF: 0 prednisone 1 MG tablet 10 mg PO DAILY RF: 0 metoprolol succinate 50 MG tablet 50 mg PO DAILY RF: 0 buspirone 5 MG tablet 10 mg PO PRN PRN (Reason: Anxiety) RF: 0 famotidine 20 MG tablet 20 mg PO QHS RF: 0 warfarin 5 MG tablet 5 mg PO SUTUTHSA RF: 0 promethazine 25 MG tablet 25 mg PO Q4H PRN PRN (Reason: NAUSEA/VOMITING) RF: 0 acetaminophen 325 MG tablet 650 mg PO Q6H PRN PRN (Reason: Pain Score 1-10/Temp > 100.7 F) RF: 0 zolpidem [Ambien] 10 mg Tablet 15 mg PO QHS RF: 0 hydrocodone bitartrate 10 mg Capsule, Oral Only, Er 12hr 10 mg PO DAILY RF: 0 Rexulti 4 mg Tablet 10 mg PO DAILY RF: 0 hydrocodone-acetaminophen [hydrocodone-acetaminophen] 1 TABLET tablet 1 tab PO Q4H PRN PRN (Reason: Pain) 2 Days Qty: 10 RF: 0 warfarin [Coumadin] 2.5 mg Tablet 2.5 mg PO MOWEFR RF: 0 Primary Care Provider: Tarah Dubon Referrals: Tarah Dubon DO [Primary Care Provider] - 3-5 Days if not improving Disposition Disposition: Home, Self Care
[2021-12-26] MEDS: 0.9% Normal Saline 1,000 ML 1000 ML IV (05:57)
[2021-12-26 05:59] LABS: Absolute Lymphocyte Count 2.75 X10^3/uL (0.83-4.51); Absolute Neutrophil Count 6.3 X10^3/uL (2.0-7.7); Basophil# 0.04 X10^3/uL; Basophil% 0.4 % (0-1); Eosinophil# 0.37 X10^3/uL; Eosinophils% 3.5 % (0-5); Hematocrit 39.2 % (37-47); Hemoglobin 11.9 g/dL (12.0-15.0); Lymphocyte # 2.75 X10^3/ul (0.83-4.51); Lymphocyte % 26.3 % (19-41); Mean Corp Hgb Conc 30.4 g/dL (32-36); Mean Corpuscular Volume 88.9 fL (81-99); Mean Platelet Vol. 9.1 fl (6.2-12.0); Monocyte# 0.96 X10^3/uL; Monocyte% 9.2 % (0-10); NRBC Flagged by Analyzer 0 % (0-5); Neutrophil % 60.3 % (47-70); Platelet Count 362 K/mm3 (150-450); RBC Distribution Width CV 14.9 % (11.6-14.6); RBC Distribution Width SD 49.2 fl (35.1-43.9); Red Blood Count 4.41 M/mm3 (4.2-5.4); White Blood Count 10.5 K/mm3 (4.4-11.0)
[2021-12-26 06:12] LABS: International Normalized Ratio 1.7; Prothrombin Time (Protime)PT. 19.6 SECONDS (11.7-14.9)
[2021-12-26 06:24] LABS: ALB/GLOB Ratio 0.7 RATIO (0.9-2.4); AST(SGOT) 19 U/L (15-37); Alanine Aminotransfer ALT/SGPT 25 U/L (13-56); Albumin, Serum 3.1 g/dL (3.2-5.0); Alkaline Phosphatase 102 U/L (45-117); Anion Gap 10 (5-15); BUN 13 mg/dL (7-18); BUN/Creat Ratio 12.9 RATIO (10-20); Calcium,Total 8.8 mg/dL (8.5-10.1); Chloride 101 mmol/L (98-107); Creatinine, Serum 1.01 mg/dL (0.55-1.02); EST Glomerular Filtration Rate 61 mL/min (>60); Est Glom Filt Rate - Afr Amer 74 mL/min (>60); Estimated Creatinine Clearance 61.69 ml/min; Globulin 4.7 g/dL (2.2-4.2); Glucose 115 mg/dL (74-106); Potassium 3.9 mmol/L (3.5-5.1); Protein, Total 7.8 g/dL (6.4-8.2); Sodium Level 135 mmol/L (136-145); Troponin-I HS 4 pg/mL (3.0-54.0)
[2021-12-26] MEDS: Metoprolol(XL)Succ 50 MG Tablet PO (06:26)
--- NOTE | 2021-12-26 06:27 | CT_ITS ---
STUDY: CTA CHEST REASON FOR EXAM: Female, 51 years old. sob, cough RADIATION DOSAGE (If Supplied By Facility): CTDIvol = ( 20.78 ) mGy, DLP = ( 752.14 ) mGycm TECHNIQUE: The examination was performed with the intravenous administration of IV 100mL Isovue-370. Post-processing of the angiographic images was performed, with multiplanar reformation and 3D reconstruction. Individualized dose optimization techniques were used for this CT. COMPARISON: None. FINDINGS: Normal enhancement of the main pulmonary artery and right and left pulmonary arteries. Normal enhancement of the bilateral peripheral pulmonary arteries. There is no demonstrated pulmonary embolism. Normal thoracic aorta and visualized great vessels. There is retroesophageal right subclavian artery. There is no demonstrated aortic dissection. Normal heart and pericardium. Normal mediastinum. Normal hilar regions. Normal visualized trachea and bronchi. The lungs are well expanded. Normal pulmonary parenchyma. Normal pleura. Normal chest wall structures. Normal osseous structures. There is a hiatal hernia measures [address]/CTA Chest W/WO Contrast IMPRESSION: No demonstrated pulmonary embolism or arterial dissection. There is a hiatal hernia measures 11 cm. Electronically Signed: Luz Elena Fernandes MD at 7:34 EDT ,
[2021-12-26 06:28] VITALS: BP 102/61; PULSE 124; RESP 20; TEMP 36.4; O2SAT 95
[2021-12-26 07:54] VITALS: BP 152/65; PULSE 112; RESP 20; O2SAT 96
== END 2021-12-26 08:00 | disposition home or self-care (01) ==
PROVIDERS: Emergency Provider Emergency Medicine; PCP Family Medicine; Visit Provider Emergency Medicine
DX: J40 Bronchitis, not specified as acute or chronic (principal); E66.9 Obesity, unspecified; F32.A Depression, unspecified; F41.9 Anxiety disorder, unspecified; Z79.899 Other long term (current) drug therapy; Z79.01 Long term (current) use of anticoagulants
CPT/HCPCS: 71045; 71275; 80053; 84484; 85025; 85610; 87811; 93005; 96360; 96361; 99285; J7030; Q9967; A4216

== ENCOUNTER → 2022-01-24 | Outpatient (CLI) | payer MEDICARE, MEDICAID, SELFPAY ==
--- NOTE | 2022-01-24 17:49 | RAD_ITS ---
STUDY: X-RAY - LUMBAR SPINE REASON FOR EXAM: Female, 51 years old. Technologist Notes PT STATES HAS HAD A TIGHTNESS AND PAIN IN LOWER BACK FOR OVER A YEAR. LOWER BACK PAIN TECHNIQUE: XR Spine Lumbar 2 or 3 Views COMPARISON: None FINDINGS: Normal lumbar lordosis. There is a dextroscoliosis of the lumbar spine. Mild grade 1 anterolisthesis of L4 on L5. There is multilevel endplate spondylosis of the lumbar vertebrae. There is multi-level degenerative disc disease with multi-level disc space narrowing. The soft tissue structures are unremarkable. RAD/Lumbar Spine 2 or 3 Views IMPRESSION: There are no acute findings. Electronically Signed: Brijesh Howard MD at 18:10 EDT ,
== END | disposition home or self-care (01) ==
LOC: RAD 17:43
PROVIDERS: PCP Family Medicine; Referring Provider Anesthesiology Pain Medicine; Visit Provider Anesthesiology Pain Medicine
DX: M54.50 Low back pain, unspecified (principal)
CPT/HCPCS: 72100

== ENCOUNTER 2022-02-25 06:13 | Observation (INO) | payer MEDICARE, MEDICAID, SELFPAY ==
[2022-02-25] VITALS (18 sets, daily range): BP systolic 106–142; BP diastolic 59–91; PULSE 89–123; RESP 18–28; TEMP 36.6–36.7; O2SAT 86–99; BMI 59.3; BMI 57.6
--- NOTE | 2022-02-25 06:27 | EKG12_ITS ---
Test Reason : SOB Blood Pressure : / mmHG Vent. Rate : 115 BPM Atrial Rate : 115 BPM P-R Int : 138 ms QRS Dur : 086 ms QT Int : 310 ms P-R-T Axes : 043 060 078 degrees QTc Int : 428 ms Sinus tachycardia Otherwise normal ECG Confirmed by BLAKE LEON, MILY ([id number]), video editor LYLY KENDALL ([id number]) on 02/27/2022 9:13:01 AM Referred By: Confirmed By:MILY LOZANO MD
--- NOTE | 2022-02-25 06:28 | EDS_ITS ---
HPI History of Present Illness Chief Complaint: Shortness of Breath Informant: patient Narrative Narrative: Presents with dyspnea productive cough since yesterday. Fever yesterday. Pain with deep breaths or laying down. Concerns for pneumonia and also concerns for potential PE. She had a PE in the past currently on warfarin last INR check was a month ago. She states they will check it this last time due to having COVID. Exposure from her daughter. After first COVID infection. States had a home test that was positive. History of clotting disorders found after her initial blood clot. Denies tobacco history. PE Risk Factors: Positive for Prior DVT or PE Prior similar symptoms: Yes PF[facility] Medical History Anxiety Depression GERD (gastroesophageal reflux disease) Pulmonary embolism Rheumatoid arthritis Home Medications bupropion HCl 300 mg 24 hr tablet, extended release 300 mg PO DAILY mental health 08/25/18 [History Last Taken 03/14/20 06:00] ropinirole 2 mg tablet,extended release 24 hr 2 mg PO QHS restless legs 08/25/18 [History Last Taken 05/17/19 21:30] folic acid 1 mg tablet 1 mg PO DAILY supplement 01/23/19 [History Last Taken 05/18/19 07:00] ferrous sulfate 325 mg (65 mg iron) tablet 325 mg PO DAILY supplement 03/27/19 [History Last Taken 05/18/19 07:00] venlafaxine 150 mg capsule,extended release 24 hr 225 mg PO DAILY mental health 04/10/19 [History Last Taken 03/14/20 06:00] prednisone 1 mg tablet 10 mg PO DAILY RA 05/18/19 [History Last Taken Unknown] metoprolol succinate 50 mg tablet,extended release 24 hr 50 mg PO DAILY 12/30/19 [Rx Last Taken 03/14/20 06:00] buspirone 5 mg tablet 10 mg PO PRN PRN Anxiety 03/04/20 [History Last Taken Unknown] famotidine 20 mg tablet 20 mg PO QHS reflux 03/04/20 [History Last Taken Unknown] warfarin 5 mg tablet 5 mg PO SUTUTHSA blood thinner 03/04/20 [History Last Taken Unknown] acetaminophen 325 mg tablet 650 mg PO Q6H PRN PRN Pain Score 1-10/Temp > 100.7 F 05/25/20 [Rx Last Taken Unknown] brexpiprazole 4 mg tablet (Rexulti) 10 mg PO DAILY 01/29/21 [History Last Taken Unknown] warfarin 2.5 mg tablet 2.5 mg PO MOWEFR 12/26/21 [History Last Taken Unknown] Allergy/AdvReac Type Severity Reaction Status Date / Time adhesive tape AdvReac Rash Verified 02/25/22 06:18 Surgical History History of hysterectomy Social History Smoking Status: Never smoker ROS ROS ED Constitutional Constitutional ED: Reports fever(s); Denies chills or sweats Eyes Eyes: Denies change in vision ENT ENT ED: Denies dysphagia or sore throat Cardiovascular Cardiovascular: Denies chest pain, leg edema, palpitations or racing heartbeat Respiratory/Chest Respiratory/Chest: Reports cough and dyspnea; Denies dyspnea on exertion Gastrointestinal Gastrointestinal: Denies abdominal pain, diarrhea, nausea or vomiting Genitourinary Genitourinary ED: Denies dysuria, hematuria or urinary frequency Musculoskeletal Musculoskeletal: Denies back pain, extremity pain or neck pain Integumentary Denies rash or wounds Neurologic Neurologic: Denies headache(s), paresthesias or weakness EXAM Physical Exam Const Vital Signs: 02/25/22 06:14 02/25/22 06:30 Temperature 98.0 F Temperature Source Oral Pulse Rate 89 Respiratory Rate 28 H Respiratory Depth Shallow Respiratory Pattern Tachypnea Blood Pressure 142/66 H Blood Pressure Mean 91 Pulse Ox 92 Oxygen Delivery Method Room Air Room Air Positive well nourished and well developed General Appearance ED: well developed and NAD HEENT Reports moist mucous membranes normocephalic and atraumatic Eyes PERRL, EOMs intact bilaterally and conjunctivae normal General Eye ED: Yes normal appearance of both eyes Neck no lymphadenopathy and supple General: Negative for tenderness Chest Wall Chest: Negative for tenderness Resp normal respiratory effort and normal air movement Effort and Inspection: symmetric chest movement; Negative for respiratory distr ess Cardio regular rate, regular rhythm and no murmurs Peripheral Pulses: pulses 2+ throughout GI normal to inspection, nondistended, normoactive bowel sounds and non-tender Palpation: Negative for guarding or rebound tenderness present Back/Spine no CVA tenderness and no thoracic nor lumbar tenderness Extremity normal to inspection General Extremety ED: Negative for edema or tenderness General Extremity: Negative for edema Neuro oriented x3 and no sensory deficits noted Sensorium / Orientation: awake and alert Skin no rashes or lesions noted and no wounds MDM MDM MDM Narrative Medical decision making narrative: Patient 92% on room air. COVID last month. Patient on warfarin. Productive cough. Sinus tachycardia on EKG. She has history of tachycardia on metoprolol. Labs obtained chest x-ray will check INR. 0700: Chest x-ray 1 view reviewed by myself notes chronic changes no clear infiltrates. White count 12.1. Creatinine 0.95. Troponin 4. INR slightly subtherapeutic 1.9. She is tachycardic on EKG she is 92% room air she had COVID last month, she has risk for PE. Therefore CTA chest is ordered for further rule out. She is signed out to oncoming physician. Lab Data Attestation: I reviewed the patient's lab results. Labs: Laboratory Results - last 24 hr 02/25/22 02/25/22 02/25/22 06:30 06:30 06:30 WBC 12.1 H RBC 4.01 L Hgb 10.6 L Hct 34.7 L MCV 86.5 MCH 26.4 L MCHC 30.5 L RDW Std Deviation 50.1 H RDW Coeff of Chepe 15.9 H Plt Count 338 MPV 9.0 Immature Gran % (Auto) 0.300 Neut % (Auto) 67.0 Lymph % (Auto) 22.9 [place] % (Auto) 7.6 Eos % (Auto) 1.8 Baso % (Auto) 0.4 Absolute Neuts (auto) 8.1 H Absolute Lymphs (auto) 2.76 Nucleated RBC % 0 PT 21.7 H INR 1.9 Sodium 136 Potassium 4.1 Chloride 102 Carbon Dioxide 28.0 Anion Gap 6 BUN 11 Creatinine 0.95 Estim Creat Clear Calc 65.59 Est GFR (MDRD) Af Amer 79 Est GFR (MDRD) Non-Af 66 BUN/Creatinine Ratio 11.5 Glucose 122 H Calcium 8.9 Troponin I High Sens 4 EKG Initial EKG: Attestation: I personally reviewed and interpreted this EKG as follows: Comments: Sinus rate of 115, no ST or T wave changes. 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, Acute dyspnea, Cough, Hypoxia Prescriptions: No Action bupropion HCl 300 MG tablet extended release 24 hr 300 mg PO DAILY ropinirole 2 MG tablet extended release 24 hr 2 mg PO QHS folic acid 1 MG tablet 1 mg PO DAILY ferrous sulfate 325 MG tablet 325 mg PO DAILY venlafaxine 150 MG capsule 225 mg PO DAILY Label Comments: TAKE 1 CAPSULE BY MOUTH ONCE A DAY prednisone 1 MG tablet 10 mg PO DAILY metoprolol succinate 50 MG tablet 50 mg PO DAILY 0RF buspirone 5 MG tablet 10 mg PO PRN PRN (Reason: Anxiety) famotidine 20 MG tablet 20 mg PO QHS warfarin 5 MG tablet 5 mg PO SUTUTHSA acetaminophen 325 MG tablet 650 mg PO Q6H PRN PRN (Reason: Pain Score 1-10/Temp > 100.7 F) 0RF Rexulti 4 mg Tablet 10 mg PO DAILY warfarin [Coumadin] 2.5 mg Tablet 2.5 mg PO MOWEFR Primary Care Provider: Tarah Dubon Referrals: Tarah Dubon DO [Primary Care Provider] -
[2022-02-25 06:35] LABS: Absolute Lymphocyte Count 2.76 X10^3/uL (0.83-4.51); Absolute Neutrophil Count 8.1 X10^3/uL (2.0-7.7); Basophil# 0.05 X10^3/uL; Basophil% 0.4 % (0-1); Eosinophil# 0.22 X10^3/uL; Eosinophils% 1.8 % (0-5); Hematocrit 34.7 % (37-47); Hemoglobin 10.6 g/dL (12.0-15.0); Lymphocyte # 2.76 X10^3/ul (0.83-4.51); Lymphocyte % 22.9 % (19-41); Mean Corp Hgb Conc 30.5 g/dL (32-36); Mean Corpuscular Hgb 26.4 pg (27.0-32.0); Mean Corpuscular Volume 86.5 fL (81-99); Monocyte# 0.92 X10^3/uL; Monocyte% 7.6 % (0-10); NRBC Flagged by Analyzer 0 % (0-5); Neutrophil # 8.06 X10^3/uL (2.7-7.7); Platelet Count 338 K/mm3 (150-450); RBC Distribution Width CV 15.9 % (11.6-14.6); RBC Distribution Width SD 50.1 fl (35.1-43.9); Red Blood Count 4.01 M/mm3 (4.2-5.4); White Blood Count 12.1 K/mm3 (4.4-11.0)
--- NOTE | 2022-02-25 06:45 | RAD_ITS ---
EXAM: XR CHEST, 1 VIEW CLINICAL INDICATION: cough TECHNIQUE: Frontal view of the chest. This report was created using [employer] report generation technology. COMPARISON: 12/26/2021. FINDINGS: LUNGS AND PLEURAL SPACES: Consolidation left lower lobe consistent with pneumonia. No pneumothorax. No effusion. HEART: Unremarkable. Cardiac silhouette not enlarged. MEDIASTINUM: Moderate hiatal hernia. BONES/JOINTS: Unremarkable. SOFT TISSUES: Unremarkable. RAD/Chest 1 View (Portable) IMPRESSION: 1. Consolidation left lower lobe consistent with pneumonia. 2. Moderate hiatal hernia. Electronically Signed: Robb Rodriguez MD at 7:14 EDT ,
[2022-02-25 06:46] LABS: International Normalized Ratio 1.9; Prothrombin Time (Protime)PT. 21.7 SECONDS (11.7-14.9)
[2022-02-25 06:53] LABS: Anion Gap 6 (5-15); BUN 11 mg/dL (7-18); BUN/Creat Ratio 11.5 RATIO (10-20); Calcium,Total 8.9 mg/dL (8.5-10.1); Chloride 102 mmol/L (98-107); Creatinine, Serum 0.95 mg/dL (0.55-1.02); EST Glomerular Filtration Rate 66 mL/min (>60); Est Glom Filt Rate - Afr Amer 79 mL/min (>60); Estimated Creatinine Clearance 65.59 ml/min; Glucose 122 mg/dL (74-106); Potassium 4.1 mmol/L (3.5-5.1); Sodium Level 136 mmol/L (136-145); Troponin-I HS 4 pg/mL (3.0-54.0)
--- NOTE | 2022-02-25 07:00 | CT_ITS ---
EXAM: CT ANGIOGRAPHY CHEST WITHOUT AND WITH INTRAVENOUS CONTRAST CLINICAL INDICATION: shortness of breath TECHNIQUE: Helically acquired angiography images were obtained of the chest without and with intravenous contrast. This CT exam was performed using one or more of the following dose reduction techniques: automated exposure control, adjustment of the mA and/or kV according to patient size, and/or use of iterative reconstruction technique. This report was created using [email or web address] report generation technology. MIP reconstructed images were created and reviewed. CONTRAST: IV 100mL [id number]-370 COMPARISON: 12/26/2021 FINDINGS: PULMONARY ARTERIES: Unremarkable. Normal in caliber. No evidence of pulmonary embolism. AORTA: Unremarkable. Normal in caliber. No evidence of dissection. 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 Normal in caliber. No evidence of dissection. LUNGS AND PLEURAL SPACES: There is left lower lobe consolidation which may represent pneumonia. There is mild left upper lobe infiltrate also present. No mass. No pleural effusion or thickening. HEART: Unremarkable. Heart size is normal. No pericardial effusion. No signs of right heart strain, ratio of right ventricle to left ventricle measures less than 1. MEDIASTINUM: There is a moderate size hiatal hernia. No mediastinal or hilar adenopathy. Esophagus is unremarkable. THYROID: Unremarkable. No thyroid lesions. BONES/JOINTS: Unremarkable. No suspicious lytic or blastic abnormality. CT/CTA Chest W/WO Contrast IMPRESSION: 1. No evidence of pulmonary embolus. 2. Left lower lobe consolidation which may represent pneumonia. There is also minimal left upper lobe infiltrate. Electronically Signed: Bradly Galinod MD at 9:21 EDT ,
[2022-02-25] MEDS: Ondansetron 4 MG/2 ML Vial IV (08:00)
[2022-02-25] MEDS: Ceftriaxone 1 GM/50 ML BAG IV (08:13)
[2022-02-25 08:25] LABS: Lactic Acid 1.1 mmol/L (0.4-1.9)
--- NOTE | 2022-02-25 08:47 | EKG12_ITS ---
Test Reason : CP Blood Pressure : / mmHG Vent. Rate : 111 BPM Atrial Rate : 111 BPM P-R Int : 144 ms QRS Dur : 084 ms QT Int : 316 ms P-R-T Axes : 045 063 071 degrees QTc Int : 429 ms Sinus tachycardia Otherwise normal ECG Confirmed by BLAKE LEON, MILY ([id number]), assignment editor LYLY KENDALL ([id number]) on 02/27/2022 9:13:19 AM Referred By: JESUSITA Confirmed By:MILY LOZANO MD
[2022-02-25] MEDS: Ferrous Sulfate 325 MG Tablet PO (10:12)
[2022-02-25] MEDS: Metoprolol(XL)Succ 50 MG Tablet PO (10:12)
[2022-02-25] MEDS: Acetaminophen 325 MG Tablet 650 MG PO ×2 (10:12→19:55)
[2022-02-25] MEDS: 0.9% Saline Lock 10 ML Syringe IV (10:13)
--- NOTE | 2022-02-25 10:48 | PCM.HP.STD ---
HPI - General General Date of Admission: 02/25/22 Date of Service: 02/25/22 Chief Complaint: Cough, shortness of breath, fever HPI Narrative RICCARDO VICKERS, is a 51 F who presents to the emergency room at [facility] with a chief complaint of cough, shortness of breath, and fever x48 hours. Patient also stated that she had chills at home. Work-up in the emergency room included a chest x-ray which showed a left lower lobe infiltrate, patient was afebrile in the emergency room, patient's white blood cell count was elevated at 12.1. Patient takes Coumadin for lupus anticoagulant disorder, her INR is 1.9, patient's chemistry profile was unremarkable. Patient underwent a CT of the chest which showed left lower lobe infiltrate and a minimal left upper lobe infiltrate. Patient's pulse ox was in the 80s ambulating in the emergency room. Patient was given IV Zithromax and IV Rocephin, she was admitted to [place] [id number] for community-acquired pneumonia with hypoxia. [facility] Medical History Anxiety Depression GERD (gastroesophageal reflux disease) Pulmonary embolism Rheumatoid arthritis Home Medications bupropion HCl 300 mg 24 hr tablet, extended release 300 mg PO DAILY mental health 08/25/18 [History Last Taken 03/14/20 06:00] ropinirole 2 mg tablet,extended release 24 hr 2 mg PO QHS restless legs 08/25/18 [History Last Taken 05/17/19 21:30] folic acid 1 mg tablet 1 mg PO DAILY supplement 01/23/19 [History Last Taken 05/18/19 07:00] ferrous sulfate 325 mg (65 mg iron) tablet 325 mg PO DAILY supplement 03/27/19 [History Last Taken 05/18/19 07:00] venlafaxine 150 mg capsule,extended release 24 hr 225 mg PO DAILY mental health 04/10/19 [History Last Taken 03/14/20 06:00] prednisone 1 mg tablet 10 mg PO DAILY RA 05/18/19 [History Last Taken Unknown] metoprolol succinate 50 mg tablet,extended release 24 hr 50 mg PO DAILY 12/30/19 [Rx Last Taken 03/14/20 06:00] buspirone 5 mg tablet 10 mg PO PRN PRN Anxiety 03/04/20 [History Last Taken Unknown] famotidine 20 mg tablet 20 mg PO QHS reflux 03/04/20 [History Last Taken Unknown] warfarin 5 mg tablet 5 mg PO SUTUTHSA blood thinner 03/04/20 [History Last Taken Unknown] acetaminophen 325 mg tablet 650 mg PO Q6H PRN PRN Pain Score 1-10/Temp > 100.7 F 05/25/20 [Rx Last Taken Unknown] brexpiprazole 4 mg tablet (Rexulti) 10 mg PO DAILY 01/29/21 [History Last Taken Unknown] warfarin 2.5 mg tablet 2.5 mg PO MOWEFR 12/26/21 [History Last Taken Unknown] Allergy/AdvReac Type Severity Reaction Status Date / Time adhesive tape AdvReac Rash Verified 02/25/22 06:18 Surgical History History of hysterectomy Social History Smoking Status: Never smoker ROS Constitutional Constitutional: Reports chills, fever(s) and malaise; Denies anorexia, change in weight, night sweats or weakness Eyes Eyes: Denies blurry vision, change in vision, discharge from eye(s) or eye pain Cardiovascular Cardiovascular: Reports dyspnea on exertion; Denies chest pain, claudication, edema or palpitations Respiratory/Chest Respiratory/Chest: Reports cough, dyspnea, productive cough and shortness of breath with exertion; Denies hemoptysis or shortness of breath at rest Gastrointestinal Gastrointestinal: Denies abdominal pain, coffee ground emesis, constipation, diarrhea, dyspepsia, hematemesis, hematochezia, melena, nausea or vomiting Genitourinary Genitourinary: Denies difficulty urinating, dysuria, hematuria, nocturia, urinary frequency, urinary hesitancy, urinary incontinence or urinary urgency Musculoskeletal Musculoskeletal: Denies back pain, joint pain, joint stiffness, joint swelling, myalgias or neck pain Neurologic Neurologic: Denies abnormal gait, abnormal speech, confusion, disequilibrium, dizziness, focal weakness, headache(s), loss of vision, numbness, other visual disturbances, paresthesias, syncope or tingling Psychiatric Psychiatric: Denies anxiety, cognitive impairment, depression, irritability, mood swings or suicidal ideation Endocrine Endocrinology: Denies change in body appearance, cold intolerance, excessive sweating, heat intolerance, polydipsia or polyuria Hematologic/Lymphatic Hematologic/Lymphatic: Denies none, anemia, easy bleeding, easy bruising or lymphadenopathy Allergic/Immunologic Allergic/Immunologic: Denies rhinitis, urticaria, eczemia or asthma Vital Signs Vital Signs Vital Signs: 02/25/22 06:14 02/25/22 06:30 02/25/22 07:04 Temperature 98.0 F Temperature Source Oral Pulse Rate 89 112 H Respiratory Rate 28 H 22 H Respiratory Depth Shallow Respiratory Pattern Tachypnea Blood Pressure 142/66 H 141/90 H Blood Pressure Mean 91 107 Blood Pressure Source Blood Pressure Position Blood Pressure Location Pulse Ox 92 86 Oxygen Delivery Method Room Air Room Air Room Air Oxygen Flow Rate (L/min) 02/25/22 07:09 02/25/22 07:21 02/25/22 08:10 Temperature 98.0 F 98.1 F Temperature Source Oral Oral Pulse Rate 111 H 123 H Respiratory Rate 18 21 H Respiratory Depth Respiratory Pattern Blood Pressure 141/91 H 106/66 Blood Pressure Mean 107 79 Blood Pressure Source Blood Pressure Position Blood Pressure Location Pulse Ox 92 96 93 Oxygen Delivery Method Nasal Cannula Nasal Cannula Nasal Cannula Oxygen Flow Rate (L/min) 2 2 2 02/25/22 08:13 02/25/22 09:51 02/25/22 09:52 Temperature 98.1 F 98.0 F Temperature Source Oral Oral Pulse Rate 111 H 112 H Respiratory Rate 25 H 22 H Respiratory Depth Respiratory Pattern Blood Pressure 106/66 142/84 H Blood Pressure Mean 79 103 Blood Pressure Source Monitor Blood Pressure Position Sitting Blood Pressure Location Right Arm Pulse Ox 94 92 94 Oxygen Delivery Method Nasal Cannula Room Air Room Air Oxygen Flow Rate (L/min) 2 02/25/22 10:12 Temperature Temperature Source Pulse Rate 112 H Respiratory Rate Respiratory Depth Respiratory Pattern Blood Pressure 142/84 H Blood Pressure Mean Blood Pressure Source Blood Pressure Position Blood Pressure Location Pulse Ox Oxygen Delivery Method Oxygen Flow Rate (L/min) Weight Weight: 161.887 kg Body Mass Index (BMI) 57.6 Physical Exam Const alert, oriented x3 and no apparent distress Constitutional Narrative: Patient is morbidly obese General Appearance: cooperative, well kempt and well developed Orientation / Consciousness: awake, oriented to person, oriented to place and oriented to time HEENT normocephalic, head/scalp atraumatic, hearing grossly normal bilaterally and moist oral mucous membranes Eyes PERRL, EOMs intact bilaterally and conjunctivae normal Neck supple, no JVD, thyroid normal and no carotid bruits General: trachea midline Resp normal respiratory effort, no retractions, no use of accessory muscles and clear to auscultation bilaterally Auscultation: Negative for rales, rhonchi or wheezes Cardio regular rate, regular rhythm, S1 normal heart sound, S2 normal heart sound, no murmurs, no rub and no gallops GI normal to inspection, nondistended, normoactive bowel sounds, soft to palpation, non-tender and non-distended GI Narrative: Patient is morbidly obese Extremity no clubbing, cyanosis or edema Skin no rashes or lesions noted General Skin Exam: no breakdown Neuro oriented x3, CN's II-XII intact bilaterally, moves all extremities, no focal motor deficits and no sensory deficits noted Sensorium / Orientation: awake and alert Speech: speech normal Psych affect normal Results Lab / Micro Data Result Diagrams: 02/25/22 06:30 02/25/22 06:30 Labs: Laboratory Results - last 24 hr 02/25/22 06:30: WBC 12.1 H, RBC 4.01 L, Hgb 10.6 L, Hct 34.7 L, MCV 86.5, MCH 26.4 L, MCHC 30.5 L, RDW Std Deviation 50.1 H, RDW Coeff of Chepe 15.9 H, Plt Count 338, MPV 9.0, Immature Gran % (Auto) 0.300, Neut % (Auto) 67.0, Lymph % (Auto) 22.9, [place] % (Auto) 7.6, Eos % (Auto) 1.8, Baso % (Auto) 0.4, Absolute Neuts (auto) 8.1 H, Absolute Lymphs (auto) 2.76, Nucleated RBC % 0 02/25/22 06:30: PT 21.7 H, INR 1.9 02/25/22 06:30: Sodium 136, Potassium 4.1, Chloride 102, Carbon Dioxide 28.0, Anion Gap 6, BUN 11, Creatinine 0.95, Estim Creat Clear Calc 65.59, Est GFR (MDRD) Af Amer 79, Est GFR (MDRD) Non-Af 66, BUN/Creatinine Ratio 11.5, Glucose 122 H, Calcium 8.9, Troponin I High Sens 4 02/25/22 07:55: Lactic Acid 1.1 Radiology Impression Chest X-Ray 02/25/22 06:45 IMPRESSION: 1. Consolidation left lower lobe consistent with pneumonia. 2. Moderate hiatal hernia. Electronically Signed: Robb Rodriguez MD at 7:14 EDT , Chest CTA 02/25/22 07:00 IMPRESSION: 1. No evidence of pulmonary embolus. 2. Left lower lobe consolidation which may represent pneumonia. There is also minimal left upper lobe infiltrate. Electronically Signed: Bradly Galindo MD at 9:21 EDT , Assessment & Plan Assessment/Plan (1) Community acquired pneumonia: PLAN: Plan 1. Left lower and left upper lobe community-acquired pneumonia-suspected to be bacterial in nature-patient will be admitted to [facility] 3, we will continue IV Zithromax and Rocephin, I have ordered aerosol treatments for the patient, sputum will be obtained for culture if possible, urine antigens for Legionella and strep were ordered. #2 hypoxia secondary to #1-patient is on 2 L with exertion, pulse ox will be monitored, if the patient does not require oxygen tomorrow, it is likely she could be discharged home on oral antibiotics. I went over this with the patient. #3 rheumatoid arthritis-complicates care, medical management, recovery, and prognosis #4 morbid obesity-complicates care, medical management, recovery, and prognosis #5 chronic use of oral anticoagulants secondary to lupus anticoagulant disorder and history of venous thromboembolism-patient's INR subtherapeutic, I have elected to adjust her Coumadin dosage and give her extra Coumadin today, INR will be rechecked tomorrow #6 chronic depression-patient is on Effexor, Wellbutrin, and Rexulti Charges/Coding Visit Charges Inpatient E&M: 35549 Init Hosp L3
[2022-02-25] MEDS: buPROPion (XL) 300 MG TABLET.XL PO (12:04)
[2022-02-25] MEDS: Venlafaxine XR 75 MG Capsule 225 MG PO (12:04)
[2022-02-25] MEDS: ARIPiprazole 10 MG Tablet PO (12:05)
[2022-02-25] MEDS: busPIRone 5 MG Tablet 10 MG PO (12:06)
[2022-02-25] MEDS: Albuterol 2.5 MG/3 ML VIAL.NEB. INHALATION ×2 (13:40→19:25)
--- NOTE | 2022-02-25 18:09 | NUR.TO.PHY ---
CPS aware of pt own CPAP machine at bedside.
[2022-02-25] MEDS: Famotidine 20 MG Tablet PO (21:21)
[2022-02-25] MEDS: Gabapentin 300 MG Capsule PO (21:21)
[2022-02-25] MEDS: Pramipexole Di-HCl 1 MG Tablet PO (21:21)
[2022-02-25] MEDS: Amitriptyline 25 MG Tablet 50 MG PO (21:21)
[2022-02-26] VITALS (8 sets, daily range): BP systolic 113–154; BP diastolic 67–87; PULSE 80–98; RESP 18–20; TEMP 36.6–36.7; O2SAT 91–95
[2022-02-26] MEDS: Acetaminophen 325 MG Tablet 650 MG PO (02:04)
[2022-02-26] MEDS: 0.9% Saline Lock 10 ML Syringe IV (04:56)
[2022-02-26] MEDS: Ketorolac 15 MG/ML Vial IV (04:56)
[2022-02-26 06:03] LABS: Absolute Lymphocyte Count 2.73 X10^3/uL (0.83-4.51); Basophil# 0.05 X10^3/uL; Basophil% 0.5 % (0-1); Eosinophil# 0.32 X10^3/uL; Eosinophils% 3.2 % (0-5); Hematocrit 34.2 % (37-47); Hemoglobin 10.3 g/dL (12.0-15.0); Lymphocyte # 2.73 X10^3/ul (0.83-4.51); Lymphocyte % 27.5 % (19-41); Mean Corp Hgb Conc 30.1 g/dL (32-36); Mean Corpuscular Hgb 26.3 pg (27.0-32.0); Mean Corpuscular Volume 87.2 fL (81-99); Mean Platelet Vol. 9.3 fl (6.2-12.0); Monocyte% 8.1 % (0-10); NRBC Flagged by Analyzer 0 % (0-5); Neutrophil # 5.98 X10^3/uL (2.7-7.7); Neutrophil % 60.4 % (47-70); Platelet Count 322 K/mm3 (150-450); RBC Distribution Width CV 16.2 % (11.6-14.6); RBC Distribution Width SD 50.8 fl (35.1-43.9); Red Blood Count 3.92 M/mm3 (4.2-5.4); White Blood Count 9.9 K/mm3 (4.4-11.0)
[2022-02-26] MEDS: Albuterol 2.5 MG/3 ML VIAL.NEB. INHALATION (07:00)
[2022-02-26] MEDS: predniSONE 10 MG Tablet PO (09:54)
[2022-02-26] MEDS: Folic Acid 1 MG Tablet PO (09:54)
[2022-02-26] MEDS: Ceftriaxone 1 GM/50 ML BAG IV (09:54)
[2022-02-26] MEDS: Venlafaxine XR 75 MG Capsule 225 MG PO (09:57)
--- NOTE | 2022-02-26 10:00 | CASEMGMT ---
ZENON ROMAN Face to Face with patient for initial transition planning/care coordination assessment. RN CM introduced self and role at [facility]. Patient lying in bed, alert and oriented. Patient willing to participate in assessment and is able to answer all questions appropriately. Care providers, pharmacy, and demographics verified. Patient wishes to discharge home, denies need for home health at this time. Patient states he has no further needs or concerns at this time. CM to follow for discharge planning needs that may arise. PCP: Ling Specialists: Penelope, pain; Janee, RA; Juventino psychiarist Preferred Pharmacy: [facility] Insurance: TAWNY Duong Prescription Benefit: yes Living Will/HPOA: none LNOK: daughter Living Arrangements: Patient lives alone in a downstairs apartment with 5 steps with railing to enter. Patient states she is independent and able to ambulate stairs. Transportation: self, daughter DME/HHC: Patient states she has cane, walker, cpap, pulse ox at home. Patient states she has had HHC in the past but could not recall agency. Disposition Plan: Patient to discharge home with family support and follow-up plans in place. Charity GRUBBS, RN, CM
[2022-02-26] MEDS: Gabapentin 300 MG Capsule PO (10:10)
[2022-02-26] MEDS: ARIPiprazole 10 MG Tablet PO (10:10)
[2022-02-26] MEDS: Metoprolol(XL)Succ 50 MG Tablet PO (10:10)
[2022-02-26] MEDS: buPROPion (XL) 300 MG TABLET.XL PO (10:11)
--- NOTE | 2022-02-26 11:14 | PCM.DC.SUM ---
Providers Date of Admission: 02/25/22 Date of Discharge: 02/26/22 Primary Care Physician: Dr. Tarah Dubon DO Reason For Visit: PNEUMONIA, HYPOXIA Diagnosis Discharge Diagnosis (1) Community acquired pneumonia: Status: Acute Code(s): J18.9 - Pneumonia, unspecified organism Medications at Discharge Home Medications bupropion HCl 300 mg 24 hr tablet, extended release 300 mg PO DAILY mental health 08/25/18 ropinirole 2 mg tablet,extended release 24 hr 2 mg PO QHS restless legs 08/25/18 folic acid 1 mg tablet 1 mg PO DAILY supplement 01/23/19 ferrous sulfate 325 mg (65 mg iron) tablet 325 mg PO DAILY supplement 03/27/19 venlafaxine 150 mg capsule,extended release 24 hr 225 mg PO DAILY mental health 04/10/19 prednisone 1 mg tablet 10 mg PO DAILY RA 05/18/19 metoprolol succinate 50 mg tablet,extended release 24 hr 50 mg PO DAILY 12/30/19 buspirone 5 mg tablet 10 mg PO PRN PRN Anxiety 03/04/20 famotidine 20 mg tablet 20 mg PO QHS reflux 03/04/20 warfarin 5 mg tablet 5 mg PO SUTUTHSA blood thinner 03/04/20 acetaminophen 325 mg tablet 650 mg PO Q6H PRN PRN Pain Score 1-10/Temp > 100.7 F 05/25/20 brexpiprazole 4 mg tablet (Rexulti) 10 mg PO DAILY 01/29/21 warfarin 2.5 mg tablet 2.5 mg PO MOWEFR 12/26/21 amitriptyline 25 mg tablet 50 tab QHS sleep 02/25/22 gabapentin 300 mg capsule 300 cap BID back pain 02/25/22 guaifenesin 1,200 mg tablet, extended release 12 hr (Mucus Relief ER) 1,200 mg PO BID #14 tabs 02/26/22 levofloxacin 750 mg tablet 750 mg PO DAILY #5 tabs 02/26/22 Hospital Course Operations None Procedures None Summary of Care Provided Minutes Spent on Discharge: 36 Hospital Course: Mrs. Cali is a 51-year-old white female who presents emergency department [facility] on 02/25/2022 with cough, shortness of breath, and fever. Patient reported on presentation that she started with dyspnea, a productive cough and fever the day prior to presentation. She complained of pain with deep breathing or lying down. Chest x-ray and CT of the chest were both performed the emergency department which showed a left lower lobe infiltrate and a minimal left upper lobe infiltrate. She had a leukocytosis with a white count of 12.1 upon presentation. She is on Coumadin at baseline for lupus anticoagulant and her INR was 1.9 on admission and 2.0 on the day of discharge. They did consider discharging her home from the emergency department however she was found to have a pulse ox during ambulation in the 80s in the emergency department prior to presentation and she was therefore admitted to the hospital. In the emergency department she was started on azithromycin and Rocephin and this was continued during her hospital course. On the a.m. of 02/26/2022 the patient reported that her chest pain was gone. She indicated she still had an intermittent cough however was feeling much improved. She reported she was 90% improved from the day of admission. Her respiratory panel was negative. Blood cultures were still pending upon discharge. These will be followed after discharge to assure negativity, however I have low suspicion of bacteremia. She will discharge on Levaquin for another 5-day course that she is received 2 days of antibiotics prior to discharge. I encourage close follow-up with a repeat INR to be performed on given the interaction with Levaquin and warfarin. Her INR was 2.0 on the day of discharge. Ambulatory pulse ox was performed prior to discharge and she was found to be 93% on room air at rest and 95% with exertion. She is to follow-up with her primary care physician in 1 week for an appointment and as noted above INR on , 03/01/2022. She was discharged home in stable condition with a prescription for Levaquin and instructed to take Mucinex. The patient improved clinically much more quickly than anticipated at the time of admission. Discharge diagnoses: Community acquired pneumonia Hypoxia-resolved RA Lupus anticoagulant on chronic anticoagulation Restless leg syndrome Hypertension Chronic low back pain Depression Anxiety Morbid obesity Physical Exam Narrative She feels 90% better than she did yesterday upon presentation. Ambulatory pulse ox was done this morning and patient did not require any supplemental oxygen at rest or with ambulation. Patient reports all pain in the chest with respiration has subsided. Const alert, oriented x3, no apparent distress, average body habitus and no limitations Constitutional Narrative: Morbidly obese white female sitting up on the edge of the bed eating breakfast, patient appears well, nontoxic, no dyspnea with conversation or at rest General Appearance: cooperative, comfortable, well kempt and well developed Orientation / Consciousness: awake Exam Limitations: no limitations Nutritional Appearance: morbidly obese HEENT normocephalic, head/scalp atraumatic, hearing grossly normal bilaterally, moist oral mucous membranes and oropharynx normal HEENT Narrative: No thrush, Mallampati 3-4 Eyes PERRL, EOMs intact bilaterally and conjunctivae normal Eyes Narrative: No scleral icterus Neck no lymphadenopathy, supple and no JVD Neck Narrative: Neck is short and thick Resp normal respiratory effort, no retractions, no use of accessory muscles and clear to auscultation bilaterally Auscultation: Negative for crackles, rales, rhonchi or wheezes Cardio regular rate, regular rhythm, S1 normal heart sound, S2 normal heart sound, no murmurs, no rub, no gallops, no clicks and no JVD GI normal to inspection, nondistended, normoactive bowel sounds, soft to palpation, non-tender and non-distended Extremity no clubbing, cyanosis or edema Skin no rashes or lesions noted, no wounds, skin turgor normal and no jaundice Neuro oriented x3, CN's II-XII intact bilaterally, moves all extremities, no focal motor deficits and No no sensory deficits noted Sensorium / Orientation: awake, alert, oriented to person, oriented to place and oriented to time Speech: speech normal Motor Exam: strength 5/5 throughout Psych affect normal Psych Narrative: Very pleasant and appropriately interactive Weight / BMI Weight Weight: 161.887 kg Body Mass Index (BMI) 57.6 ABG / Lab / Microbiology Data Result Diagrams: 02/26/22 05:40 02/25/22 06:30 Laboratory: Laboratory Results - last 24 hr 02/26/22 05:40: WBC 9.9, RBC 3.92 L, Hgb 10.3 L, Hct 34.2 L, MCV 87.2, MCH 26.3 L, MCHC 30.1 L, RDW Std Deviation 50.8 H, RDW Coeff of Chepe 16.2 H, Plt Count 322, MPV 9.3, Immature Gran % (Auto) 0.300, Neut % (Auto) 60.4, Lymph % (Auto) 27.5, [place] % (Auto) 8.1, Eos % (Auto) 3.2, Baso % (Auto) 0.5, Absolute Neuts (auto) 6.0, Absolute Lymphs (auto) 2.73, Nucleated RBC % 0 02/26/22 05:40: PT 22.0 H, INR 2.0 D/C Instructions Discharge Diet: Low fat / Low cholesterol Discharge Activity: Return to Normal Activity Return to work on: 02/28/22 Meaningful Use Info Meaningful Use Diagnoses (Choose all that apply): None applicable Discharge Plan Admission Admit Date/Time: 02/25/22 08:30 Primary Reason for Your Visit: Pneumonia Attending Provider: Lesly Tomas Primary Care Provider: Tarah Dubon Consulting Providers: Mumtaz Nash Instructions Additional Instructions / Restrictions: 1. Please get INR checked on --> the antibiotics can cause increase in INR. INR 2.0 on 02/26/2022 2. Start oral antibotics on 02/27/2022 Discharge Orders/Prescriptions Prescriptions: New levofloxacin 750 mg tablet 750 mg PO DAILY Qty: 5 0RF Mucus Relief ER 1,200 mg tablet extended release 12hr 1,200 mg PO BID Qty: 14 0RF Continued bupropion HCl 300 MG tablet extended release 24 hr 300 mg PO DAILY ropinirole 2 MG tablet extended release 24 hr 2 mg PO QHS folic acid 1 MG tablet 1 mg PO DAILY ferrous sulfate 325 MG tablet 325 mg PO DAILY venlafaxine 150 MG capsule 225 mg PO DAILY Label Comments: TAKE 1 CAPSULE BY MOUTH ONCE A DAY prednisone 1 MG tablet 10 mg PO DAILY metoprolol succinate 50 MG tablet 50 mg PO DAILY 0RF buspirone 5 MG tablet 10 mg PO PRN PRN (Reason: Anxiety) famotidine 20 MG tablet 20 mg PO QHS warfarin 5 MG tablet 5 mg PO SUTUTHSA acetaminophen 325 MG tablet 650 mg PO Q6H PRN PRN (Reason: Pain Score 1-10/Temp > 100.7 F) 0RF Rexulti 4 mg Tablet 10 mg PO DAILY warfarin 2.5 mg Tablet 2.5 mg PO MOWEFR amitriptyline 25 mg tablet 50 tab QHS gabapentin 300 mg capsule 300 cap BID Referrals / Follow Up: Tarah Dubon DO [Primary Care Provider] - In 1 Week Disposition Disposition (needs filled in before D/C Order can be placed): Home, Self Care Charges/Coding Visit Charges Inpatient E&M: 95427 Disch Hosp
--- NOTE | 2022-02-26 11:36 | NURSING ---
awaiting urine for labs
--- NOTE | 2022-02-26 11:41 | ADDICTION ---
pt and staff aware of need for urine collection prior to d/c
--- NOTE | 2022-02-26 12:26 | NURSING ---
urine sent to lab as ordered [facility]
--- NOTE | 2022-02-26 14:35 | CASEMGMT ---
Referral placed to Patient Link as pt will not be set up with homegoing services.
--- NOTE | 2022-02-27 14:35 | NURSING ---
This nurse called patient in follow up to a patient link referral that was made by the Case management team on 02/26/22. Call to patient's listed contact number. Left Voicemail briefly discussing intentions of the phone call and offering patient a contact number for this nurse if she has any interest in following up or hearing more regarding the service.
== END 2022-02-26 13:30 | disposition home or self-care (01) | DRG 194 ==
LOC: ED 08:28 → MS3 02-26 07:03
PROVIDERS: Emergency Medicine; Admitting Provider Internal Medicine; Emergency Provider Emergency Medicine; PCP Family Medicine; Visit Provider Internal Medicine
DX: J18.9 Pneumonia, unspecified organism (principal); M06.9 Rheumatoid arthritis, unspecified; Z68.43 Body mass index [BMI] 50.0-59.9, adult; E66.01 Morbid (severe) obesity due to excess calories; F41.9 Anxiety disorder, unspecified; I10 Essential (primary) hypertension; G25.81 Restless legs syndrome; K21.9 Gastro-esophageal reflux disease without esophagitis; R09.02 Hypoxemia; Z79.01 Long term (current) use of anticoagulants; F32.A Depression, unspecified; R76.0 Raised antibody titer; M54.50 Low back pain, unspecified; G89.29 Other chronic pain; Z79.52 Long term (current) use of systemic steroids; Z79.899 Other long term (current) drug therapy; Z86.16 Personal history of COVID-19; Z86.711 Personal history of pulmonary embolism
CPT/HCPCS: 36415; 71045; 71275; 80048; 83605; 84484; 85025; 85610; 87040; 87449; 93005; 94640; 96365; 96366; 96367; 96375; 96376; 99221; 99251; 99252; 99285; Q9967; A4216; G0378; G0463; J2405

== ENCOUNTER 2022-06-01 21:11 | Inpatient (IN) | payer MEDICARE, MEDICAID, SELFPAY ==
[2022-06-01] VITALS (9 sets, daily range): BP systolic 101–144; BP diastolic 54–78; PULSE 126–129; RESP 22–39; TEMP 37.3; O2SAT 87–100; BMI 41.8
--- NOTE | 2022-06-01 21:49 | EKG12_ITS ---
Test Reason : SOB Blood Pressure : / mmHG Vent. Rate : 127 BPM Atrial Rate : 127 BPM P-R Int : 128 ms QRS Dur : 080 ms QT Int : 282 ms P-R-T Axes : 038 040 082 degrees QTc Int : 409 ms Sinus tachycardia Nonspecific ST and T wave abnormality Abnormal ECG Confirmed by BLAKE LEON, MILY ([id number]), deputy editor in chief GILBERT ZHOU ([id number]) on 06/05/2022 11:32:17 AM Referred By: Confirmed By:MILY LOZANO MD
--- NOTE | 2022-06-01 21:49 | CT_ITS ---
STUDY: CTA CHEST REASON FOR EXAM: Female, 51 years old. pulmonary embolism RADIATION DOSAGE (If Supplied By Facility): CTDIvol = ( 48.50 ) mGy, DLP = ( 763.84 ) mGycm TECHNIQUE: The examination was performed with the intravenous administration of IV 100mL Isovue-370. Post-processing of the angiographic images was performed, with multiplanar reformation and 3D reconstruction. Individualized dose optimization techniques were used for this CT. COMPARISON: 02/25/2022 FINDINGS: Normal enhancement of the main pulmonary artery and right and left pulmonary arteries. Normal enhancement of the bilateral peripheral pulmonary arteries. There is no demonstrated pulmonary embolism. Normal thoracic aorta and visualized great vessels. There is no demonstrated aortic dissection. There is cardiomegaly. Moderate-sized hiatal hernia. Normal mediastinum. Normal hilar regions. Normal visualized trachea and bronchi. The lungs are well expanded. Normal pulmonary parenchyma. Small left pleural effusion with some left lower lobe atelectasis. Normal chest wall structures. Normal osseous structures. Normal visualized upper abdomen. CT/CTA Chest W/WO Contrast IMPRESSION: 1. No CT evidence of pulmonary embolism. 2. Small left pleural effusion with left lower lobe atelectasis. Electronically Signed: Bry Arteaga MD at 23:01 EST ,
[2022-06-01] MEDS: Ondansetron 4 MG/2 ML Vial IV (21:59)
[2022-06-01] MEDS: Morphine 4 MG/ML Syringe IV ×2 (21:59→23:32)
[2022-06-01 22:01] LABS: Absolute Lymphocyte Count 2.36 X10^3/uL (0.83-4.51); Absolute Neutrophil Count 8.7 X10^3/uL (2.0-7.7); Basophil# 0.05 X10^3/uL; Basophil% 0.4 % (0-1); Eosinophil# 0.25 X10^3/uL; Hematocrit 26.1 % (37-47); Hemoglobin 7.2 g/dL (12.0-15.0); Lymphocyte # 2.36 X10^3/ul (0.83-4.51); Lymphocyte % 18.7 % (19-41); Mean Corp Hgb Conc 27.6 g/dL (32-36); Mean Corpuscular Hgb 21.4 pg (27.0-32.0); Mean Corpuscular Volume 77.4 fL (81-99); Mean Platelet Vol. 9.2 fl (6.2-12.0); Monocyte# 1.21 X10^3/uL; Monocyte% 9.6 % (0-10); NRBC Flagged by Analyzer 0.5 % (0-5); Neutrophil # 8.67 X10^3/uL (2.7-7.7); Neutrophil % 68.8 % (47-70); Platelet Count 586 K/mm3 (150-450); RBC Distribution Width CV 17.3 % (11.6-14.6); RBC Distribution Width SD 48.2 fl (35.1-43.9); Red Blood Count 3.37 M/mm3 (4.2-5.4); White Blood Count 12.6 K/mm3 (4.4-11.0)
[2022-06-01 22:19] LABS: ALB/GLOB Ratio 0.6 RATIO (0.9-2.4); AST(SGOT) 13 U/L (15-37); Alanine Aminotransfer ALT/SGPT 22 U/L (13-56); Albumin, Serum 2.9 g/dL (3.2-5.0); Alkaline Phosphatase 87 U/L (45-117); Anion Gap 6 (5-15); BUN 14 mg/dL (7-18); BUN/Creat Ratio 15.4 RATIO (10-20); Calcium,Total 9.3 mg/dL (8.5-10.1); Chloride 103 mmol/L (98-107); Creatinine, Serum 0.91 mg/dL (0.55-1.02); EST Glomerular Filtration Rate 69 mL/min (>60); Est Glom Filt Rate - Afr Amer 84 mL/min (>60); Estimated Creatinine Clearance 68.47 ml/min; Globulin 4.8 g/dL (2.2-4.2); Glucose 102 mg/dL (74-106); Potassium 3.9 mmol/L (3.5-5.1); Protein, Total 7.7 g/dL (6.4-8.2); Sodium Level 137 mmol/L (136-145); Troponin-I HS (w/2H Reflex) 8 pg/mL (3.0-54.0)
[2022-06-01 22:20] LABS: International Normalized Ratio 1.4; Prothrombin Time (Protime)PT. 16.3 SECONDS (11.7-14.9)
[2022-06-01 22:21] LABS: Partial Thromboplast Time 38.7 Seconds (24.1-36.2)
[2022-06-01] MEDS: Ipratropium/Albuterol Sulfate 3 ML AMPUL.NEB INHALATION (23:20)
--- NOTE | 2022-06-01 23:20 | EDS_ITS ---
HPI History of Present Illness Chief Complaint: Shortness of Breath Informant: patient Narrative Narrative: 51-year-old female presenting to the emergency room with a chief complaint of chest pain and shortness of breath. The patient was noted to be hypoxic per EMS and was placed on nasal cannula. She notes pain in the left lower aspect of her chest. She states that gravities makes it worse. Movement does not necessarily painful. She notes no fever or significant cough. She denies any rashes. She notes a history of pulmonary embolism, compartment syndrome, and rheumatoid arthritis. She was recently transition from warfarin to Xarelto about 1 month ago. She states she has not missed any doses of this. 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 Lupus anticoagulant disorder Morbid obesity MTHFR mutation KIKI (obstructive sleep apnea) Pulmonary embolism Rheumatoid arthritis Sinus tachycardia Home Medications bupropion HCl 300 mg 24 hr tablet, extended release 300 mg PO DAILY mental health 08/25/18 [History Last Taken 03/14/20 06:00] ropinirole 2 mg tablet,extended release 24 hr 2 mg PO QHS restless legs 08/25/18 [History Last Taken 05/17/19 21:30] folic acid 1 mg tablet 1 mg PO DAILY supplement 01/23/19 [History Last Taken 05/18/19 07:00] ferrous sulfate 325 mg (65 mg iron) tablet 325 mg PO DAILY supplement 03/27/19 [History Last Taken 05/18/19 07:00] venlafaxine 150 mg capsule,extended release 24 hr 225 mg PO DAILY mental health 04/10/19 [History Last Taken 03/14/20 06:00] prednisone 1 mg tablet 10 mg PO DAILY RA 05/18/19 [History Last Taken Unknown] metoprolol succinate 50 mg tablet,extended release 24 hr 50 mg PO DAILY 12/30/19 [Rx Last Taken 03/14/20 06:00] buspirone 5 mg tablet 10 mg PO PRN PRN Anxiety 03/04/20 [History Last Taken Unknown] famotidine 20 mg tablet 20 mg PO QHS reflux 03/04/20 [History Last Taken Unknown] warfarin 5 mg tablet 5 mg PO SUTUTHSA blood thinner 03/04/20 [History Last Taken Unknown] acetaminophen 325 mg tablet 650 mg PO Q6H PRN PRN Pain Score 1-10/Temp > 100.7 F 05/25/20 [Rx Last Taken Unknown] brexpiprazole 4 mg tablet (Rexulti) 10 mg PO DAILY 01/29/21 [History Last Taken Unknown] warfarin 2.5 mg tablet 2.5 mg PO MOWEFR 12/26/21 [History Last Taken Unknown] amitriptyline 25 mg tablet 50 tab QHS sleep 02/25/22 [History Last Taken 02/24/22 20:00] gabapentin 300 mg capsule 300 cap BID back pain 02/25/22 [History Last Taken 02/24/22 20:00] guaifenesin 1,200 mg tablet, extended release 12 hr (Mucus Relief ER) 1,200 mg PO BID #14 tabs 02/26/22 [Rx Last Taken Unknown] levofloxacin 750 mg tablet 750 mg PO DAILY #5 tabs 02/26/22 [Rx Last Taken Unknown] Allergy/AdvReac Type Severity Reaction Status Date / Time adhesive tape AdvReac Rash Verified 06/01/22 21:40 Family History Mother Cancer Lung CA w/ concurrent tobacco use. Heart disease Surgical History History of fasciotomy History of hysterectomy History of total bilateral knee replacement S/P pericardial window creation Social History household members: family Smoking Status: Never smoker alcohol intake: never substance use type: does not use ROS ROS ED Constitutional Constitutional ED: Denies chills or weight loss Eyes Eyes: Denies change in vision or diplopia ENT ENT ED: Denies ear pain, rhinorrhea or sore throat Cardiovascular Cardiovascular: Reports chest pain; Denies orthopnea, palpitations or racing heartbeat Respiratory/Chest Respiratory/Chest: Reports cough, dyspnea and dyspnea on exertion; Denies orthopnea Gastrointestinal Gastrointestinal: Denies abdominal pain, diarrhea, nausea or vomiting Genitourinary Genitourinary ED: Denies dysuria, hematuria or urinary frequency Musculoskeletal Musculoskeletal: Denies arthralgias or myalgias Integumentary Denies abscess or rash Neurologic Neurologic: Denies headache(s) or weakness Psychiatric Psychiatric: Denies anxiety, depression, suicidal ideation or suicidal thoughts Endocrine Endocrinology: Denies polydipsia, polyphagia or polyuria Allergic/Immunologic Allergic/Immunologic ED: Denies mouth swelling, tongue swelling or urticaria EXAM Physical Exam Const Vital Signs: 06/01/22 21:12 06/01/22 21:15 06/01/22 21:19 Temperature 99.2 F H 99.2 F H Temperature Source Temporal Temporal Pulse Rate 128 H 127 H 127 H Respiratory Rate 38 H 39 H 34 H Respiratory Effort Respiratory Depth Respiratory Pattern Blood Pressure 123/54 H 101/61 101/61 Blood Pressure Mean 77 74 74 Pulse Ox 89 100 96 Oxygen Delivery Method Room Air Nasal Cannula Nasal Cannula Oxygen Flow Rate (L/min) 2 2 06/01/22 21:19 06/01/22 21:21 06/01/22 22:53 Temperature Temperature Source Pulse Rate 128 H Respiratory Rate 31 H Respiratory Effort Short of Breath Labored Respiratory Depth Shallow Respiratory Pattern Tachypnea Blood Pressure 138/76 H Blood Pressure Mean 96 Pulse Ox 94 87 Oxygen Delivery Method Nasal Cannula Nasal Cannula Nasal Cannula Oxygen Flow Rate (L/min) 2 2.5 06/01/22 22:56 06/01/22 23:22 06/01/22 23:30 Temperature 99.1 F 99.1 F Temperature Source Temporal Temporal Pulse Rate 128 H 127 H 129 H Respiratory Rate 29 H 30 H 26 H Respiratory Effort Respiratory Depth Respiratory Pattern Tachypnea Blood Pressure 138/76 H 144/78 H Blood Pressure Mean 96 100 Pulse Ox 91 87 Oxygen Delivery Method Nasal Cannula Nasal Cannula Oxygen Flow Rate (L/min) 4 4 Positive well nourished, well developed and obese General Appearance ED: well developed Nutritional Appearance: obese HEENT Reports normocephalic, head/scalp atraumatic and moist mucous membranes Eyes PERRL and EOMs intact bilaterally Neck no lymphadenopathy, supple and no JVD Resp clear to auscultation bilaterally Resp Narrative: Patient is tachypneic Auscultation: diminished lung sounds Cardio regular rate and no murmurs Rate: tachycardic GI normal to inspection, nondistended, normoactive bowel sounds and non-tender Palpation: soft Back/Spine no CVA tenderness and normal ROM Extremity normal to inspection General Extremety ED: Negative for edema General Extremity: Negative for edema Neuro oriented x3 and CN's II-XII intact bilaterally Sensorium / Orientation: alert Motor Exam: strength 5/5 throughout Psych mental status grossly normal Mood & Affect: Negative for depressed or tearful Skin no rashes or lesions noted and no wounds MDM MDM MDM Narrative Medical decision making narrative: Blood work shows a white blood cell count of 12.6. Hemoglobin is 7.2. Platelet count of 586. INR is 1.4. CMP is negative. Troponin is 8. CTA of the chest demonstrates a left pleural effusion and atelectasis. Patient received morphine and requested a breathing treatment. 1 was ordered. I am going to add on COVID and influenza as well as a beta natruretic peptide. I wonder if this is more of a clinical pneumonia. she is still tachycardic still requiring supplemental oxygen and most likely will require admission. Lab Data Attestation: I reviewed the patient's lab results. Labs: Laboratory Results - last 24 hr 06/01/22 06/01/22 06/01/22 21:20 21:20 21:20 WBC 12.6 H RBC 3.37 L Hgb 7.2 L Hct 26.1 L MCV 77.4 L MCH 21.4 L MCHC 27.6 L RDW Std Deviation 48.2 H RDW Coeff of Chepe 17.3 H Plt Count 586 H MPV 9.2 Immature Gran % (Auto) 0.500 Neut % (Auto) 68.8 Lymph % (Auto) 18.7 L [place] % (Auto) 9.6 Eos % (Auto) 2.0 Baso % (Auto) 0.4 Absolute Neuts (auto) 8.7 H Absolute Lymphs (auto) 2.36 Nucleated RBC % 0.5 PT 16.3 H INR 1.4 APTT 38.7 H Sodium 137 Potassium 3.9 Chloride 103 Carbon Dioxide 28.0 Anion Gap 6 BUN 14 Creatinine 0.91 Estim Creat Clear Calc 68.47 Est GFR (MDRD) Af Amer 84 Est GFR (MDRD) Non-Af 69 BUN/Creatinine Ratio 15.4 Glucose 102 Calcium 9.3 Total Bilirubin 0.30 AST 13 L ALT 22 Alkaline Phosphatase 87 Troponin I High Sens 8 Total Protein 7.7 Albumin 2.9 L Globulin 4.8 H Albumin/Globulin Ratio 0.6 L Radiography Diagnostic Testing: Clinical Impression(s) from Imaging Studies Chest CTA 06/01/22 21:[address]: 1[address] evidence of pulmonary embolism. 2. Small left pleural effusion with left lower lobe atelectasis. Electronically Signed: Bry Arteaga MD at 23:01 EST , EKG Initial EKG: Attestation: I personally reviewed and interpreted this EKG as follows: Comments: Sinus tachycardia with a ventricular rate of 127 bpm Discharge Plan Dx/Rx/DC Orders Clinical Impression: Morbid obesity, Rheumatoid arthritis, Anticoagulated, Pleural effusion, left, Chest pain, Acute dyspnea, Acute hypoxemic respiratory failure, Pneumonia Disposition Disposition: Acute Care [facility]
--- NOTE | 2022-06-01 23:33 | PCM.HP.STD ---
HPI - General General Date of Admission: 06/01/22 Date of Service: 06/01/22 Chief Complaint: Cough, dyspnea. HPI Narrative The patient is a 51 y/o F w/ PMHx: Chronic anemia/Fe deficiency anemia, RLS, Hx VTE (DVT, PE) w/ MTHFR mutation/Lupus anticoagulant disorder on xarelto recently changed from coumadin ~ 1 month prior, Depression and Anxiety, GERD, Rheumatoid arthritis, Morbid Obesity, KIKI, Hx Chronic LE Wounds following at [facility] who presents to the [facility] ED on 06/01/22 with history of progressively worsening fatigue, malaise, dyspnea with cough over the last 3 days progressively worsening with pleuritic discomfort, worse with deep inspiratory effort prompting eventual ED evaluation. She reports the discomfort specifically in the left lower aspect of her chest. She denies any recent fevers or chills. Patient does report that she was recently transition from Coumadin to Xarelto approximately 1 month prior and is been consistent with her doses. Patient denies any recent abdominal cramping or pain or any dark black stools. In the ED she does also report that her daughter was sick approximately 1 week prior. Work-up in the ED included T99.2, heart rate 128, BP 123/54, respiratory rate initially 38 noted to be 89% on room air with improvement to 96% on 2 L nasal cannula, CBC with WC 12.6, hemoglobin 7.2, MCV 77.4, platelet 586 with left shift, coags PT 16.3, INR 1.4, PTT 38.7, CMP unremarkable, troponin 8, CTPA with no evidence of pulmonary embolism, small left pleural effusion with left lower lobe atelectasis, EKG with sinus tachycardia with no acute evidence of ischemia. In the ED patient administered Zofran 4 mg IV x1 as well as morphine 4 mg IV x1. [facility] Medical History Anxiety and depression GERD (gastroesophageal reflux disease) assisted current use of anticoagulant Lupus anticoagulant disorder Morbid obesity MTHFR mutation KIKI (obstructive sleep apnea) Pulmonary embolism Rheumatoid arthritis Sinus tachycardia Home Medications bupropion HCl 300 mg 24 hr tablet, extended release 300 mg PO DAILY mental health 08/25/18 [History Last Taken 03/14/20 06:00] ropinirole 2 mg tablet,extended release 24 hr 2 mg PO QHS restless legs 08/25/18 [History Last Taken 05/17/19 21:30] venlafaxine 150 mg capsule,extended release 24 hr 225 mg PO DAILY mental health 04/10/19 [History Last Taken 03/14/20 06:00] prednisone 1 mg tablet 10 mg PO DAILY RA 05/18/19 [History Last Taken Unknown] metoprolol succinate 50 mg tablet,extended release 24 hr 50 mg PO DAILY 12/30/19 [Rx Last Taken 03/14/20 06:00] buspirone 5 mg tablet 10 mg PO PRN PRN Anxiety 03/04/20 [History Last Taken Unknown] acetaminophen 325 mg tablet 650 mg PO Q6H PRN PRN Pain Score 1-10/Temp > 100.7 F 05/25/20 [Rx Last Taken Unknown] brexpiprazole 4 mg tablet (Rexulti) 10 mg PO DAILY 01/29/21 [History Last Taken Unknown] amitriptyline 25 mg tablet 50 mg PO QHS sleep 02/25/22 [History Last Taken 02/24/22 20:00] gabapentin 300 mg capsule 300 cap BID back pain 02/25/22 [History Last Taken 02/24/22 20:00] levofloxacin 750 mg tablet 750 mg PO DAILY #5 tabs 02/26/22 [Rx Last Taken Unknown] buprenorphine 5 mcg/hour weekly transdermal patch 1 patch transdermal QWEEK 06/01/22 [History Last Taken Unknown] bupropion HCl 150 mg 24 hr tablet, extended release 150 mg PO DAILY 06/01/22 [History Last Taken Unknown] rivaroxaban 20 mg tablet (Xarelto) 20 mg PO DAILY 06/01/22 [History Last Taken Unknown] Allergy/AdvReac Type Severity Reaction Status Date / Time adhesive tape AdvReac Rash Verified 06/01/22 21:40 Family History Mother Cancer Lung CA w/ concurrent tobacco use. Heart disease other (No marked paternal family history including HD, DM, CA.) Surgical History History of fasciotomy History of hysterectomy History of total bilateral knee replacement S/P pericardial window creation Social History household members: family Smoking Status: Never smoker alcohol intake: never substance use type: does not use ROS ROS Narrative Admission Review of Systems: CONSTITUTIONAL: No weight loss, fever, chills,+ weakness or fatigue. HEENT: + congestion, rhinorrhea. Eyes: No visual loss, blurred vision, double vision or yellow sclerae. Ears, Nose, Throat: No hearing loss, sneezing. SKIN: No rash or itching, lesions, wounds. CARDIOVASCULAR: + Pleuritic chest pain, LLL region. No palpitations, edema, orthopnea, syncopal events. RESPIRATORY: + Shortness of breath, cough, No marked sputum, wheezing, hemoptysis. GASTROINTESTINAL: + anorexia, No marked nausea, vomiting, diarrhea, abdominal pain, melena, BRBPR. GENITOURINARY: No dysuria, frequency, urgency or retention. NEUROLOGICAL: No dizziness, syncope, paralysis, ataxia, numbness or tingling in the extremities, focal weakness, change in bowel or bladder control, seizure. MUSCULOSKELETAL: + muscle, back pain, joint pain or stiffness. HEMATOLOGIC: No anemia, bleeding or bruising. LYMPHATICS: No enlarged nodes. No history of splenectomy. PSYCHIATRIC: + history of depression or anxiety. ENDOCRINOLOGIC: No reports of sweating, cold or heat intolerance. No polyuria or polydipsia. ALLERGIES: + history of rhinitis. Vital Signs Vital Signs Vital Signs: 06/01/22 21:12 06/01/22 21:15 06/01/22 21:19 Temperature 99.2 F H 99.2 F H Temperature Source Temporal Temporal Pulse Rate 128 H 127 H 127 H Respiratory Rate 38 H 39 H 34 H Respiratory Effort Respiratory Depth Respiratory Pattern Blood Pressure 123/54 H 101/61 101/61 Blood Pressure Mean 77 74 74 Pulse Ox 89 100 96 Oxygen Delivery Method Room Air Nasal Cannula Nasal Cannula Oxygen Flow Rate (L/min) 2 2 06/01/22 21:19 06/01/22 21:21 06/01/22 22:53 Temperature Temperature Source Pulse Rate 128 H Respiratory Rate 31 H Respiratory Effort Short of Breath Labored Respiratory Depth Shallow Respiratory Pattern Tachypnea Blood Pressure 138/76 H Blood Pressure Mean 96 Pulse Ox 94 87 Oxygen Delivery Method Nasal Cannula Nasal Cannula Nasal Cannula Oxygen Flow Rate (L/min) 2 2.5 06/01/22 22:56 06/01/22 23:22 06/01/22 23:30 Temperature 99.1 F 99.1 F Temperature Source Temporal Temporal Pulse Rate 128 H 127 H 129 H Respiratory Rate 29 H 30 H 26 H Respiratory Effort Respiratory Depth Respiratory Pattern Tachypnea Blood Pressure 138/76 H 144/78 H Blood Pressure Mean 96 100 Pulse Ox 91 87 Oxygen Delivery Method Nasal Cannula Nasal Cannula Oxygen Flow Rate (L/min) 4 4 Weight Weight: 259 lb 4.218 oz Body Mass Index (BMI) 41.8 Physical Exam Narrative Physical Examination: General: Awake, alert, oriented x 3 and cooperative, seated upright in the ED bed, fatigued, taking very short shallow breaths which was discussed at length and strongly encourage deep inspiratory effort despite pleuritic discomfort. Skin: Normal color, normal turgor, no icterus, no cyanosis. HEENT: AT/NC, EOMI, PERRLA, moderately dry MM, no carotid bruits or JVD noted. Lungs: Diffusely diminished, greater bases, increased respiratory rate and is noted taking very frequent short shallow breaths secondary to attempted avoidance of left lower chest pleuritic discomfort, no rales, ronchi or wheezing. Heart: Tachycardic with regular rhythm; no gallop, rub audible. Abdomen: Soft, morbidly obese, no obvious TTP, unable to discern distention given habitus, distant normal bowel sounds, unable to discern HSM secondary to habitus. Extremities: No cyanosis, no clubbing, no marked edema, left lower extremity fasciotomy scars. Neurological: Patient awake, alert, oriented as noted, cognitive function intact; pupils equally reactive to light and accommodation, cranial nerves II-XII grossly normal, moving all 4 extremities, no focal deficits, strength severely global decrease secondary to acute presentation. Psychiatric: Affect appears fatigued, appearance of hyperventilation, no acute evidence of depressive or anxiety feelings. Results Lab / Micro Data Result Diagrams: 06/01/22 21:20 06/01/22 21:20 Labs: Laboratory Results - last 24 hr 06/01/22 21:20: WBC 12.6 H, RBC 3.37 L, Hgb 7.2 L, Hct 26.1 L, MCV 77.4 L, MCH 21.4 L, MCHC 27.6 L, RDW Std Deviation 48.2 H, RDW Coeff of Chepe 17.3 H, Plt Count 586 H, MPV 9.2, Immature Gran % (Auto) 0.500, Neut % (Auto) 68.8, Lymph % (Auto) 18.7 L, [place] % (Auto) 9.6, Eos % (Auto) 2.0, Baso % (Auto) 0.4, Absolute Neuts (auto) 8.7 H, Absolute Lymphs (auto) 2.36, Nucleated RBC % 0.5 06/01/22 21:20: Sodium 137, Potassium 3.9, Chloride 103, Carbon Dioxide 28.0, Anion Gap 6, BUN 14, Creatinine 0.91, Estim Creat Clear Calc 68.47, Est GFR (MDRD) Af Amer 84, Est GFR (MDRD) Non-Af 69, BUN/Creatinine Ratio 15.4, Glucose 102, Calcium 9.3, Total Bilirubin 0.30, AST 13 L, ALT 22, Alkaline Phosphatase 87, Troponin I High Sens 8, Total Protein 7.7, Albumin 2.9 L, Globulin 4.8 H, Albumin/Globulin Ratio 0.6 L 06/01/22 21:20: PT 16.3 H, INR 1.4, APTT 38.7 H Radiology Impression Chest CTA 06/01/22 21:[address]: 1[address] evidence of pulmonary embolism. 2. Small left pleural effusion with left lower lobe atelectasis. Electronically Signed: Bry Arteaga MD at 23:01 EST , Assessment & Plan Assessment/Plan (1) Pneumonia: PLAN: Plan The patient is a 51 y/o F w/ PMHx: Chronic anemia/Fe deficiency anemia, RLS, Hx VTE (DVT, PE) w/ MTHFR mutation/Lupus anticoagulant disorder, Depression and Anxiety, GERD, Rheumatoid arthritis, Morbid Obesity, KIKI, Hx Chronic LE Wounds following at [facility] who presents to the [facility] ED on 06/01/22 with history of progressively worsening fatigue, malaise, dyspnea with cough over the last 3 days progressively worsening with pleuritic discomfort, worse with deep inspiratory effort prompting eventual ED evaluation. #1. Left lower lobe suspected Pneumonia with associated Acute hypoxia, appearance of hyperventilation secondary to attempted avoidance of pleuritic discomfort: Will admit to PCU given notable hypoxia and ongoing tachycardia, will obtain ABG to be cautious although suspected hyperventilation as primary etiology for her hypoxia and mouth breathing with NC in place, maintained on oxygen with wean as tolerated to room air, continue ATC duonebs, PRN albuterol, maintained on IV Rocephin and Azithromycin, HOB, IS parameters w/ pending sputum cultures, full respiratory viral panel, COVID PCR especially given recent illness and her daughter and urine antigens. #2. Acute on Chronic anemia/Fe Deficiency anemia: Admission hemoglobin 7.2, really decreased from recent 02/26/2022 hemoglobin 10.3 at that time, baseline hemoglobin 10-11 range, continue CBC trending, continue iron supplementation, guaiac requested, unclear specific etiology for notable decrease. If confirmation HH similar and guiac positive will transition to NPO, maintain on IV PPI and request GI evaluation especially given #3. #3. Hx VTE (DVT, PE): Patient w/ MTHFR mutation/Lupus anticoagulant disorder recently transition from chronic Coumadin to Xarelto 1 month prior, continue patient home Xarelto regimen but if repeat HH confirms drop and guiac positive will need to alter. #4. Chronic sinus tachycardia: We will continue patient home metoprolol succinate regimen. #5. Rheumatoid arthritis: We will continue patient home chronic low-dose prednisone therapy. #6. Morbid Obesity: Weight loss and lifestyle changes encouraged. #7. Depression and Anxiety: Patient on an extensive psychiatric regimen including Rexulti, amitriptyline, venlafaxine, bupropion as well as BuSpar. #8. GERD: Continue patient home famotidine regimen. #9. RLS: Continue patient home Requip regimen. #10. History left lower extremity compartment syndrome with chronic wounds: Patient with history of significant left lower extremity compartment syndrome requiring fasciotomies with several follow-up surgeries and wound care in [place]. #11. KIKI: CPAP q HS. #12. DVT prophylaxis: SCDs, continue patient home Xarelto regimen but if repeat HH confirms drop and guiac positive will need to alter. Charges/Coding Visit Charges Inpatient E&M: 98535 Init Hosp L3
[2022-06-01] MEDS: Ceftriaxone 1 GM/50 ML BAG IV (23:48)
[2022-06-01 23:49] LABS: BNP,B-Type NATRIURETIC PEPTIDE 30.1 pg/mL (0-100); Lactic Acid 1.7 mmol/L (0.4-1.9)
[2022-06-01 23:58] LABS: Reflex Troponin-HS? (from REC) Y
[2022-06-02] VITALS (40 sets, daily range): BP systolic 108–157; BP diastolic 52–101; PULSE 111–134; RESP 18–36; TEMP 36.6–38; O2SAT 89–95; BMI 63.2
[2022-06-02 00:26] LABS: Allen Test Positive; Base Excess 1 mmol/L (-2 to +2); Bicarbonate 25.2 mmol/L (22-26); Blood Gas Specimen Type ART; O2 Delivery Device Cannula; PO2 69 mmHG (75-100); SITE R Radial; SO2 94 % (95-99); Total Carbon Dioxide 26 mmol/L; pCO2 36.8 mmHg (35-45); pH 7.44 (7.35-7.45)
[2022-06-02 00:35] LABS: Hematocrit 25.4 % (37-47); Hemoglobin 6.9 g/dL (12.0-15.0)
[2022-06-02 00:41] LABS: Troponin-I HS 7 pg/mL (3.0-54.0)
[2022-06-02 01:08] LABS: Procalcitonin 0.13 ng/mL (0.00-0.09)
[2022-06-02] MEDS: 0.9% Normal Saline 1,000 ML 125 ML IV (01:19)
[2022-06-02] MEDS: Pantoprazole Sodium 40 MG Tablet PO (01:34)
--- NOTE | 2022-06-02 01:58 | PCM.HOSP.N ---
Hospitalist Note Hgb decreased further to 6.9 on HH check, will hold xarelto given no evidence PE on CTPA temporarily pending GI evaluation, transition to IV PPI, NPO status, plan repeat Hgb check with CBC following PRBC administration. 2 u PRBC ordered.
[2022-06-02] MEDS: busPIRone 5 MG Tablet 10 MG PO ×2 (02:25→16:34)
[2022-06-02] MEDS: Gabapentin 300 MG Capsule PO ×3 (02:58→22:08)
--- NOTE | 2022-06-02 04:49 | CT_ITS ---
EXAM: CT HEAD WITHOUT INTRAVENOUS CONTRAST CLINICAL INDICATION: Headache, pupillary changes TECHNIQUE: Multiple axial images were obtained of the head without intravenous contrast. This CT exam was performed using one or more of the following dose reduction techniques: automated exposure control, adjustment of the mA and/or kV according to patient size, and/or use of iterative reconstruction technique. This report was created using [employer] report generation technology. RADIATION DOSE: CTDIvol = 44.99 mGy, DLP = 897.35 mGy-cm. COMPARISON: None. FINDINGS: BRAIN AND EXTRA-AXIAL SPACES: Unremarkable. No intra- or extra-axial hemorrhage. No evidence of acute infarct. No intracranial mass or mass effect. There is preservation of the rivera/white matter interface. Posterior fossa structures are unremarkable. Ventricles are appropriate for age. No hydrocephalus. Basal cisterns are patent. BONES/JOINTS: Unremarkable. No discrete lytic or blastic abnormalities. SINUSES: Unremarkable as visualized. Clear. MASTOID AIR CELLS: Unremarkable. Clear. ORBITS: Visualized globes, extraocular muscles, optic nerves and retrobulbar fat appear unremarkable. CT/Brain/Head without Contrast IMPRESSION: Negative head/brain CT without intravenous contrast. Electronically Signed: Robb Rodriguez MD at 5:27 EST ,
--- NOTE | 2022-06-02 06:25 | NURSING ---
Pt noted tachypnea, shallow respirations, 02 at 4 L NC. Rt in to see pt this AM. bed alarm on. will monitor.
--- NOTE | 2022-06-02 07:27 | CPS ---
AEROSOL RX HELD DUE TO INCREASED HR. PT STATES SHE IS VERY HOT AND UNCOMFORTABLE. DAUGHTER STATED THAT WHEN SHE GETS HOT LIKE THIS SHE GETS HERSELF ALL WORKED UP.ROOM TEMPERATURE TURNED ALL THE WAY DOWN AND PT WAS GIVEN A COLD WASH RAG. SPOKE TO NURSE ABOUT GETTING PT A FAN. NURSE AND MANAGER NURSING HOME'S WERE INFORMED THAT PT NEEDED HELP MOVING UP IN BED THAT SHOULD ALSO HELP WITH HER BREATHING
[2022-06-02] MEDS: Metoprolol(XL)Succ 50 MG Tablet PO (07:51)
[2022-06-02 08:21] LABS: ALB/GLOB Ratio 0.6 RATIO (0.9-2.4); AST(SGOT) 13 U/L (15-37); Alanine Aminotransfer ALT/SGPT 18 U/L (13-56); Albumin, Serum 2.6 g/dL (3.2-5.0); Alkaline Phosphatase 80 U/L (45-117); Anion Gap 8 (5-15); BUN 16 mg/dL (7-18); BUN/Creat Ratio 14.5 RATIO (10-20); Calcium,Total 8.5 mg/dL (8.5-10.1); Chloride 101 mmol/L (98-107); EST Glomerular Filtration Rate 56 mL/min (>60); Est Glom Filt Rate - Afr Amer 67 mL/min (>60); Estimated Creatinine Clearance 56.64 ml/min; Globulin 4.5 g/dL (2.2-4.2); Glucose 131 mg/dL (74-106); Protein, Total 7.1 g/dL (6.4-8.2); Sodium Level 135 mmol/L (136-145)
[2022-06-02] MEDS: Morphine 2 MG/ML Syringe IV ×4 (08:22→20:28)
[2022-06-02] MEDS: Furosemide 20 MG/2 ML VIAL IV (08:22)
[2022-06-02 08:23] LABS: Troponin-I HS 6 pg/mL (3.0-54.0)
[2022-06-02] MEDS: Venlafaxine XR 75 MG Capsule 225 MG PO (08:23)
[2022-06-02] MEDS: buPROPion (XL) 300 MG TABLET.XL PO (08:24)
[2022-06-02] MEDS: buPROPion (XL) 150 MG TABLET.XL PO (08:26)
--- NOTE | 2022-06-02 09:15 | CASEMGMT ---
ZENON ROMAN Assessment: Face to Face with pt for initial transition planning/care coordination assessment. ZENON ROMAN introduced self and role at [facility], pt voices understanding and consents to assessment. Pt is A/O x4 and answers all questions appropriately at this time. Pt lying in bed in no distress with oxygen on. Care providers, pharmacy, and demographics verified/updated. Admitting Dx: pna, hypoxia PCP:Ling Specialists:Matthewi, pain mgmt; Weller, rheum; Juventino, psychiatrist Preferred Pharmacy: [facility] Insurance: TAWNY Duong Prescription Benefit: yes LW/HPOA: Pt denies having a LW/DPOA and denies need for info regarding AD. LNOK: Erin Correa dtr Living Arrangements: Pt lives alone in a downstairs apt with 5 steps to enter with a rail. Pt reports she is I in ADL's and denies concerns at home. Transportation: Pt drives self and denies concerns with transportation. DME/HHC/SNF: Pt has a cane and walker at home but does not use. Pt also has a wrist BP cuff, CPAP and pox. Pt has had HHC in the past but does not recall who provided it. Pt also has been in a rehab but does not know where. Pt states no concerns with going home at time of dc. Provided pt with a local in network list of DME companies should pt need oxygen, pt chooses [facility]. Pt states she really prefers not to go home with oxygen. Pt states she is weak but denies need for any therapy. Pt states no further concerns/needs. CM to follow. Advised pt to ask CM if any further question/concerns/needs arise, voices understanding. Pt Goal: Home Plan: Home, follow for oxygen
--- NOTE | 2022-06-02 10:11 | EKG12_ITS ---
Test Reason : CP Blood Pressure : / mmHG Vent. Rate : 117 BPM Atrial Rate : 117 BPM P-R Int : 134 ms QRS Dur : 090 ms QT Int : 300 ms P-R-T Axes : 042 038 024 degrees QTc Int : 418 ms Sinus tachycardia Confirmed by LATIA LEON, VALENCIA ([id number]), editorial writer GILBERT ZHOU ([id number]) on 06/06/2022 1:18:10 PM Referred By: Confirmed By:VALENCIA JEFFERY MD
[2022-06-02] MEDS: oxyCODONE 5 MG Tablet PO ×2 (10:20→17:57)
[2022-06-02] MEDS: Acetaminophen 325 MG Tablet 650 MG PO ×2 (10:21→17:57)
[2022-06-02] MEDS: Ceftriaxone 1 GM/50 ML BAG IV (10:21)
[2022-06-02] MEDS: predniSONE 10 MG Tablet PO (10:22)
--- NOTE | 2022-06-02 10:55 | PCM.PN.HOSP ---
Subjective Subjective Doing well, still having a pleuritic-like chest pain. Trying to convince her to take deep breath so she is not septic. We will continue with pain meds Objective Data Objective Data Vital Signs: Vital Signs Temp Pulse Resp BP Pulse Ox O2 Del Method O2 Flow Rate 98.9 F 125 H 28 H 120/62 92 Nasal Cannula 5 06/02/22 08:50 06/02/22 08:50 06/02/22 08:50 06/02/22 08:50 06/02/22 08:50 06/02/22 08:50 06/02/22 08:50 Oxygen Flow Rate (L/min) 5 Oxygen Delivery Method Nasal Cannula Weight: 391 lb 15.71 oz Body Mass Index (BMI) 63.2 Intake & Output: Intake and Output for Last 24 Hours 06/01/22 06/02/22 06/03/22 03:59 03:59 03:59 Intake Total 305 / 305 1441.25 / 1441.25 Output Total 300 / 300 Balance 305 / 305 1141.25 / 1141.25 Lab / Micro Data Result Diagrams: 06/02/22 00:25 06/02/22 07:11 Labs: Laboratory Results - last 24 hr 06/01/22 21:20: WBC 12.6 H, RBC 3.37 L, Hgb 7.2 L, Hct 26.1 L, MCV 77.4 L, MCH 21.4 L, MCHC 27.6 L, RDW Std Deviation 48.2 H, RDW Coeff of Chepe 17.3 H, Plt Count 586 H, MPV 9.2, Immature Gran % (Auto) 0.500, Neut % (Auto) 68.8, Lymph % (Auto) 18.7 L, [place] % (Auto) 9.6, Eos % (Auto) 2.0, Baso % (Auto) 0.4, Absolute Neuts (auto) 8.7 H, Absolute Lymphs (auto) 2.36, Nucleated RBC % 0.5 06/01/22 21:20: Sodium 137, Potassium 3.9, Chloride 103, Carbon Dioxide 28.0, Anion Gap 6, BUN 14, Creatinine 0.91, Estim Creat Clear Calc 68.47, Est GFR (MDRD) Af Amer 84, Est GFR (MDRD) Non-Af 69, BUN/Creatinine Ratio 15.4, Glucose 102, Calcium 9.3, Total Bilirubin 0.30, AST 13 L, ALT 22, Alkaline Phosphatase 87, Troponin I High Sens 8, Total Protein 7.7, Albumin 2.9 L, Globulin 4.8 H, Albumin/Globulin Ratio 0.6 L 06/01/22 21:20: PT 16.3 H, INR 1.4, APTT 38.7 H 06/01/22 21:20: B-Natriuretic Peptide 30.1 06/01/22 21:20: Lactic Acid 1.7 06/02/22 00:00: COVID-19 (RODERICK) Not Detected 06/02/22 00:16: Troponin I High Sens 7 06/02/22 00:25: Procalcitonin 0.13 H 06/02/22 00:25: Hgb 6.9 L, Hct 25.4 L 06/02/22 02:43: Blood Type O POSITIVE, Antibody Screen NEGATIVE, Crossmatch See Detail 06/02/22 07:11: Sodium 135 L, Potassium 4.0, Chloride 101, Carbon Dioxide 26.0, Anion Gap 8, BUN 16, Creatinine 1.10 H, Estim Creat Clear Calc 56.64, Est GFR (MDRD) Af Amer 67, Est GFR (MDRD) Non-Af 56 L, BUN/Creatinine Ratio 14.5, Glucose 131 H, Calcium 8.5, Total Bilirubin 0.70, AST 13 L, ALT 18, Alkaline Phosphatase 80, Total Protein 7.1, Albumin 2.6 L, Globulin 4.5 H, Albumin/Globulin Ratio 0.6 L 06/02/22 07:11: Troponin I High Sens 6 Micro: Microbiology 06/02/22 00:00 Mucosa - Nasopharyngeal Respiratory Panel (PCR) - Final 06/02/22 02:12 Urine, Clean Catch Legionella Antigen - Final 06/02/22 02:12 Urine, Clean Catch Streptococcus pneumoniae Antigen (M - Final 06/01/22 23:30 Nasal Secretion SARS-CoV-2 & FLU Antigen (Rapid) - Final ABG Data ABG results: ABG 06/02/22 00:19 Specimen Type ART Sample Site R Radial pH 7.44 Bicarbonate Actual 25.2 Total CO2 26 Base Excess 1 O2 Saturation 94 L ABG pCO2 36.8 ABG pO2 69 L Ruben Test Positive O2 Delivery Device Cannula Liter Flow 5.0 Radiography Diagnostic Testing: Radiology Impression Chest CTA 06/01/22 21:[address]: 1[address] evidence of pulmonary embolism. 2. Small left pleural effusion with left lower lobe atelectasis. Electronically Signed: Bry Arteaga MD at 23:01 EST , Brain CT 06/02/22 04:49 IMPRESSION: Negative head/brain CT without intravenous contrast. Electronically Signed: Robb Rodriguez MD at 5:27 EST , Physical Exam Narrative General: Alert, Oriented x3, Cooperative, No apparent distress, appears fatigued HEENT: Atraumatic, PERRLA, EOMI, Normocephalic Oral: Moist Mucosa Neck: Supple, No JVD Lungs: Diminished, tachypneic, Normal air movement, No rhonchi, No wheeze, No rales Cardiovascular: Tachycardic, Regular Rhythm, Normal S1, Normal S2, No murmurs Abdomen: Soft, Non Tender, Non-Distended, No Hepato-splenomegaly Extremities: No edema, Capillary Refill Less than 3 Seconds Skin: No rashes, No breakdown Musculoskeletal: No Tenderness to Palpation of Joints or Extremities Neurological: Cranial nerves II-XII grossly intact, Motor Exam 5/5 strength throughout, Sensory exam intact to light touch and pain Psych/Mental Status: Normal Affect, Appropriate Assessment & Plan Assessment/Plan (1) Pneumonia: PLAN: Plan 1. Acute hypoxic respiratory failure secondary to left lower lobe pneumonia ? She does appear to have some increased work of breathing with shallow breaths and being tachypneic, will obtain an ABG ? Continue with her antibiotics ? We will continue to encourage incentive spirometry as well as pain control ? Culture data is pending 2. Acute on chronic anemia with iron deficiency anemia as well/GERD ? Unsure if there is a GI bleed, she has noticed that her stools are little bit darker ? Stool occult is pending ? She has been transfused 2 units, she was given a dose of Lasix in between given her work of breathing ? Continue with PPI 3. Hypercoagulable state with a history of VTE ? She does have an MTHFR mutation with a lupus anticoagulant disorder ? She was on Coumadin and then transition to Xarelto ? Given her anemia we will hold ? GI has been consulted for possible intervention in the meantime will remain n.p.o. 4. Rheumatoid arthritis ? Stable ? Continue with low-dose prednisone 5. Anxiety/depression ? Stable ? Continue with her home medications 6. Morbid obesity/KIKI ? She is planning on getting bariatric surgery ? Discussed lifestyle modifications ? Continue with CPAP at night 7. RLS ? Stable ? Continue with her home medications DVT: SCDs Charges/Coding Visit Charges Inpatient E&M: 70577 Subs Hosp L2
[2022-06-02 12:44] LABS: Absolute Lymphocyte Count 1.97 X10^3/uL (0.83-4.51); Absolute Neutrophil Count 9.5 X10^3/uL (2.0-7.7); Basophil# 0.06 X10^3/uL; Basophil% 0.4 % (0-1); Eosinophil# 0.41 X10^3/uL; Hematocrit 28.7 % (37-47); Hemoglobin 8.2 g/dL (12.0-15.0); Lymphocyte # 1.97 X10^3/ul (0.83-4.51); Lymphocyte % 14.3 % (19-41); Mean Corp Hgb Conc 28.6 g/dL (32-36); Mean Corpuscular Hgb 22.6 pg (27.0-32.0); Mean Corpuscular Volume 79.1 fL (81-99); Mean Platelet Vol. 8.9 fl (6.2-12.0); NRBC Flagged by Analyzer 0.4 % (0-5); Neutrophil % 68.8 % (47-70); POSITIVE DIFFERENTIAL YES; Platelet Count 500 K/mm3 (150-450); RBC Distribution Width CV 17.2 % (11.6-14.6); RBC Distribution Width SD 49.4 fl (35.1-43.9); Red Blood Count 3.63 M/mm3 (4.2-5.4); White Blood Count 13.8 K/mm3 (4.4-11.0)
[2022-06-02 12:49] LABS: Differential Indicated SCAN CRITERIA MET
[2022-06-02 13:15] LABS: Anisocytosis 1+; Hypersegmented Neutrophils 28.6; Platelet Estimate SLT INC (ADEQ)
[2022-06-02] MEDS: guaiFENesin 10 ML UDC (200MG/10ML) 20 ML PO (17:51)
--- NOTE | 2022-06-02 18:02 | NURSING ---
Patient told this RN that she had a pain patch on her back that was just placed yesterday but that it fell off. Verified that patient did not have a pain patch on her back or chest. Patient having family bring her patches in, will notify MD for replacement of patch.
--- NOTE | 2022-06-02 18:19 | NURSING ---
Okay for sister Janay and mother Jasmin to receive information. Janay's phone number is [phone] and Jasmin's phone number is [phone]
[2022-06-02] MEDS: Ipratropium/Albuterol Sulfate 3 ML AMPUL.NEB INHALATION (19:48)
--- NOTE | 2022-06-02 19:52 | CON.PCM_ITS ---
Assessment & Plan Assessment/Plan (1) Anemia: PLAN: In a patient whose has hypoalbuminemia, respiratory failure, chronic prednisone therapy, chronic inflammation and chronic hypoxia she is at risk for angiodysplasia, telangiectasias, ulcerative disease throughout her GI tract. She should undergo an upper endoscopy. I would hold off until Saturday due to the fact that her respiratory status is still not stable and if she was to get an esthesia that would increase her oxygen requirement as her respiratory rate is dropped for the procedure. She can have her Xarelto tonight and hold it tomorrow night. I would stop her prednisone therapy and continue PPI therapy for now. Continue to monitor hemoglobin. She is scheduled to get a gastric bypass this upcoming year. She was to have her first upper endoscopy in approximately 6 months from now. However she will need to get evaluated as soon as possible to make sure that the etiology of her microcytic iron deficiency anemia is determined. HPI Consult Data Date of Consult: 06/02/22 HPI Narrative Reason for Consultation: Anemia HPI Narrative: RICCARDO VICKERS, is a 51-year-old female presenting to the emergency room with a chief complaint of chest pain and shortness of breath.? The patient was noted to be hypoxic per EMS and was placed on nasal cannula.? She notes pain in the left lower aspect of her chest.? She states that gravities makes it worse.? Movement does not necessarily painful.? She notes no fever or significant cough.? She denies any rashes.? She notes a history of pulmonary embolism, compartment syndrome, and rheumatoid arthritis.? She was recently transition from warfarin to Xarelto about 1 month ago.? Work-up in the emergency room included a chest x-ray which showed a left lower lobe infiltrate, patient was afebrile in the emergency room, patient's white blood cell count was elevated at 12.1.? Patient takes Xarelto for lupus anticoagulant disorder and MHTFR gene mutation, her INR is 1.9, patient's chemistry profile was unremarkable.? Patient underwent a CT of the chest which showed left lower lobe infiltrate and a minimal left upper lobe infiltrate.? Patient's pulse ox was in the 80s ambulating in the emergency room. Patient was given IV Zithromax and IV Rocephin, she was admitted to [place] [id number] for community-acquired pneumonia with hypoxia. I was asked to see her due to worsening anemia. She has a history of iron deficiency anemia and has been on iron therapy. She had a colonoscopy about a year or year and a half ago and she said they did not find anything except for hemorrhoids. 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 Lupus anticoagulant disorder Morbid obesity MTHFR mutation KIKI (obstructive sleep apnea) Pulmonary embolism Rheumatoid arthritis Sinus tachycardia Home Medications bupropion HCl 300 mg 24 hr tablet, extended release 300 mg PO DAILY mental health 08/25/18 [History Last Taken 03/14/20 06:00] ropinirole 2 mg tablet,extended release 24 hr 2 mg PO QHS restless legs 08/25/18 [History Last Taken 05/17/19 21:30] venlafaxine 150 mg capsule,extended release 24 hr 225 mg PO DAILY mental health 04/10/19 [History Last Taken 03/14/20 06:00] prednisone 1 mg tablet 10 mg PO DAILY RA 05/18/19 [History Last Taken Unknown] metoprolol succinate 50 mg tablet,extended release 24 hr 50 mg PO DAILY 12/30/19 [Rx Last Taken 03/14/20 06:00] buspirone 5 mg tablet 10 mg PO PRN PRN Anxiety 03/04/20 [History Last Taken Unkn own] acetaminophen 325 mg tablet 650 mg PO Q6H PRN PRN Pain Score 1-10/Temp > 100.7 F 05/25/20 [Rx Last Taken Unknown] brexpiprazole 4 mg tablet (Rexulti) 10 mg PO DAILY 01/29/21 [History Last Taken Unknown] amitriptyline 25 mg tablet 50 mg PO QHS sleep 02/25/22 [History Last Taken 02/24/22 20:00] gabapentin 300 mg capsule 300 cap BID back pain 02/25/22 [History Last Taken 02/24/22 20:00] levofloxacin 750 mg tablet 750 mg PO DAILY #5 tabs 02/26/22 [Rx Last Taken Unknown] buprenorphine 5 mcg/hour weekly transdermal patch 1 patch transdermal QWEEK 06/01/22 [History Last Taken Unknown] bupropion HCl 150 mg 24 hr tablet, extended release 150 mg PO DAILY 06/01/22 [History Last Taken Unknown] rivaroxaban 20 mg tablet (Xarelto) 20 mg PO DAILY 06/01/22 [History Last Taken Unknown] pantoprazole 40 mg tablet,delayed release 40 mg PO BID stomach 06/02/22 [History Last Taken Unknown] Allergy/AdvReac Type Severity Reaction Status Date / Time adhesive tape AdvReac Rash Verified 06/01/22 21:40 Family History Mother Cancer Lung CA w/ concurrent tobacco use. Heart disease Surgical History History of fasciotomy History of hysterectomy History of total bilateral knee replacement S/P pericardial window creation Social History household members: family Smoking Status: Never smoker alcohol intake: never substance use type: does not use ROS ROS Narrative Admission Review of Systems: CONSTITUTIONAL: No weight loss, fever, chills,+ weakness or fatigue. HEENT: + congestion, rhinorrhea. Eyes: No visual loss, blurred vision, double vision or yellow sclerae. Ears, Nose, Throat: No hearing loss, sneezing. SKIN: No rash or itching, lesions, wounds. CARDIOVASCULAR: + Pleuritic chest pain, LLL region. No palpitations, edema, orthopnea, syncopal events. RESPIRATORY: + Shortness of breath, cough, No marked sputum, wheezing, hemoptysis. GASTROINTESTINAL: + anorexia, No marked nausea, vomiting, diarrhea, abdominal pain, melena, BRBPR. GENITOURINARY: No dysuria, frequency, urgency or retention. NEUROLOGICAL: No dizziness, syncope, paralysis, ataxia, numbness or tingling in the extremities, focal weakness, change in bowel or bladder control, seizure. MUSCULOSKELETAL: + muscle, back pain, joint pain or stiffness. HEMATOLOGIC: No anemia, bleeding or bruising. LYMPHATICS: No enlarged nodes. No history of splenectomy. PSYCHIATRIC: + history of depression or anxiety. ENDOCRINOLOGIC: No reports of sweating, cold or heat intolerance. No polyuria or polydipsia. ALLERGIES: + history of rhinitis. Physical Exam Narrative General: Alert, Oriented x3, Cooperative, No apparent distress, appears fatigued HEENT: Atraumatic, PERRLA, EOMI, Normocephalic Oral: Moist Mucosa Neck: Supple, No JVD Lungs: Diminished, tachypneic, Normal air movement, No rhonchi, No wheeze, No r ales Cardiovascular: Tachycardic, Regular Rhythm, Normal S1, Normal S2, No murmurs Abdomen: Soft, Non Tender, Non-Distended, No Hepato-splenomegaly Extremities: No edema, Capillary Refill Less than 3 Seconds Skin: No rashes, No breakdown Musculoskeletal: No Tenderness to Palpation of Joints or Extremities Neurological: Cranial nerves II-XII grossly intact, Motor Exam 5/5 strength throughout, Sensory exam intact to light touch and pain Psych/Mental Status: Normal Affect, Appropriate Lab / Micro Data Result Diagrams: 06/02/22 12:35 06/02/22 07:11 Labs: Laboratory Results - last 24 hr 06/01/22 21:20: WBC 12.6 H, RBC 3.37 L, Hgb 7.2 L, Hct 26.1 L, MCV 77.4 L, MCH 21.4 L, MCHC 27.6 L, RDW Std Deviation 48.2 H, RDW Coeff of Chepe 17.3 H, Plt Count 586 H, MPV 9.2, Immature Gran % (Auto) 0.500, Neut % (Auto) 68.8, Lymph % (Auto) 18.7 L, [place] % (Auto) 9.6, Eos % (Auto) 2.0, Baso % (Auto) 0.4, Absolute Neuts (auto) 8.7 H, Absolute Lymphs (auto) 2.36, Nucleated RBC % 0.5 06/01/22 21:20: Sodium 137, Potassium 3.9, Chloride 103, Carbon Dioxide 28.0, Anion Gap 6, BUN 14, Creatinine 0.91, Estim Creat Clear Calc 68.47, Est GFR ( MDRD) Af Amer 84, Est GFR (MDRD) Non-Af 69, BUN/Creatinine Ratio 15.4, Glucose 102, Calcium 9.3, Total Bilirubin 0.30, AST 13 L, ALT 22, Alkaline Phosphatase 87, Troponin I High Sens 8, Total Protein 7.7, Albumin 2.9 L, Globulin 4.8 H, Albumin/Globulin Ratio 0.6 L 06/01/22 21:20: PT 16.3 H, INR 1.4, APTT 38.7 H 06/01/22 21:20: B-Natriuretic Peptide 30.1 06/01/22 21:20: Lactic Acid 1.7 06/02/22 00:00: COVID-19 (RODERICK) Not Detected 06/02/22 00:16: Troponin I High Sens 7 06/02/22 00:25: Procalcitonin 0.13 H 06/02/22 00:25: Hgb 6.9 L, Hct 25.4 L 06/02/22 02:43: Blood Type O POSITIVE, Antibody Screen NEGATIVE, Crossmatch See Detail 06/02/22 07:11: Sodium 135 L, Potassium 4.0, Chloride 101, Carbon Dioxide 26.0, Anion Gap 8, BUN 16, Creatinine 1.10 H, Estim Creat Clear Calc 56.64, Est GFR (MDRD) Af Amer 67, Est GFR (MDRD) Non-Af 56 L, BUN/Creatinine Ratio 14.5, Glucose 131 H, Calcium 8.5, Total Bilirubin 0.70, AST 13 L, ALT 18, Alkaline Phosphatase 80, Total Protein 7.1, Albumin 2.6 L, Globulin 4.5 H, Album in/Globulin Ratio 0.6 L 06/02/22 07:11: Troponin I High Sens 6 06/02/22 12:35: WBC 13.8 H, RBC 3.63 L, Hgb 8.2 L, Hct 28.7 L, MCV 79.1 L, MCH 22.6 L, MCHC 28.6 L, RDW Std Deviation 49.4 H, RDW Coeff of Chepe 17.2 H, Plt Count 500 H, MPV 8.9, Immature Gran % (Auto) 0.500, Neut % (Auto) 68.8, Lymph % (Auto) 14.3 L, [place] % (Auto) 13.0 H, Eos % (Auto) 3.0, Baso % (Auto) 0.4, Absolute Neuts (auto) 9.5 H, Absolute Lymphs (auto) 1.97, Nucleated RBC % 0.4, Hypersegmented Neuts 28.6, Platelet Estimate SLT INC, Anisocytosis 1+ Micro: Microbiology 06/02/22 00:00 Mucosa - Nasopharyngeal Respiratory Panel (PCR) - Final 06/02/22 02:12 Urine, Clean Catch Legionella Antigen - Final 06/02/22 02:12 Urine, Clean Catch Streptococcus pneumoniae Antigen (M - Final 06/01/22 23:30 Nasal Secretion SARS-CoV-2 & FLU Antigen (Rapid) - Final ABG Data ABG results: ABG 06/02/22 00:19 Specimen Type ART Sample Site R Radial pH 7.44 Bicarbonate Actual 25.2 Total CO2 26 Base Excess 1 O2 Saturation 94 L ABG pCO2 36.8 ABG pO2 69 L Ruben Test Positive O2 Delivery Device Cannula Liter Flow 5.0 Radiology Impression Chest CTA 06/01/22 21:[address]: 1[address] No CT evidence of pulmonary embolism. 2. Small left pleural effusion with left lower lobe atelectasis. Electronically Signed: Bry Arteaga MD at 23:01 EST , Brain CT 06/02/22 04:49 IMPRESSION: Negative head/brain CT without intravenous contrast. Electronically Signed: Robb Rodriguez MD at 5:27 EST ,
[2022-06-02 19:56] LABS: Allen Test Positive; Base Excess 2 mmol/L (-2 to +2); Bicarbonate 26.9 mmol/L (22-26); Blood Gas Specimen Type ART; O2 Delivery Device Cannula; PO2 69 mmHG (75-100); SITE L Radial; SO2 93 % (95-99); Total Carbon Dioxide 28 mmol/L; pCO2 44.6 mmHg (35-45); pH 7.39 (7.35-7.45)
[2022-06-02] MEDS: Rivaroxaban 20 MG Tablet PO (20:30)
[2022-06-02] MEDS: Pramipexole Di-HCl 1 MG Tablet PO (22:09)
[2022-06-02] MEDS: Amitriptyline 25 MG Tablet 50 MG PO (22:09)
--- NOTE | 2022-06-02 22:45 | EKG12_ITS ---
Test Reason : CP Blood Pressure : / mmHG Vent. Rate : 127 BPM Atrial Rate : 127 BPM P-R Int : 140 ms QRS Dur : 088 ms QT Int : 302 ms P-R-T Axes : 034 034 026 degrees QTc Int : 438 ms Sinus tachycardia Cannot rule out Anterior infarct , age undetermined Abnormal ECG Confirmed by LATIA LEON, VALENCIA ([id number]), editorial intern GILBERT ZHOU ([id number]) on 06/06/2022 1:19:20 PM Referred By: SAW Confirmed By:VALENCIA JEFFERY MD
[2022-06-03] VITALS (34 sets, daily range): BP systolic 119–163; BP diastolic 58–99; PULSE 113–133; RESP 16–36; TEMP 3–38.3; O2SAT 90–97
[2022-06-03] MEDS: Acetaminophen 325 MG Tablet 650 MG PO ×2 (01:29→08:05)
[2022-06-03] MEDS: Morphine 2 MG/ML Syringe IV ×2 (03:35→18:18)
[2022-06-03] MEDS: Ipratropium/Albuterol Sulfate 3 ML AMPUL.NEB INHALATION ×4 (03:56→19:50)
[2022-06-03 06:26] LABS: Absolute Lymphocyte Count 1.89 X10^3/uL (0.83-4.51); Basophil# 0.07 X10^3/uL; Basophil% 0.4 % (0-1); Eosinophil# 0.57 X10^3/uL; Eosinophils% 3.5 % (0-5); Hematocrit 27.3 % (37-47); Hemoglobin 8.1 g/dL (12.0-15.0); Lymphocyte # 1.89 X10^3/ul (0.83-4.51); Lymphocyte % 11.6 % (19-41); Mean Corp Hgb Conc 29.7 g/dL (32-36); Mean Corpuscular Hgb 23.1 pg (27.0-32.0); Monocyte# 1.65 X10^3/uL; Monocyte% 10.2 % (0-10); NRBC Flagged by Analyzer 0.2 % (0-5); Neutrophil # 12.02 X10^3/uL (2.7-7.7); POSITIVE DIFFERENTIAL YES; Platelet Count 491 K/mm3 (150-450); RBC Distribution Width CV 17.3 % (11.6-14.6); RBC Distribution Width SD 49.4 fl (35.1-43.9); White Blood Count 16.3 K/mm3 (4.4-11.0)
[2022-06-03 06:31] LABS: Differential Indicated SCAN CRITERIA MET
[2022-06-03 06:52] LABS: Anisocytosis 1+; Microcytosis RARE; Platelet Estimate SLT INC (ADEQ)
[2022-06-03 06:53] LABS: Hypochromasia 1+; Polychromasia 1+
[2022-06-03 06:55] LABS: Anion Gap 7 (5-15); BUN 16 mg/dL (7-18); BUN/Creat Ratio 16.4 RATIO (10-20); Chloride 97 mmol/L (98-107); Creatinine, Serum 0.98 mg/dL (0.55-1.02); EST Glomerular Filtration Rate 64 mL/min (>60); Est Glom Filt Rate - Afr Amer 77 mL/min (>60); Estimated Creatinine Clearance 63.58 ml/min; Glucose 119 mg/dL (74-106); Sodium Level 131 mmol/L (136-145)
[2022-06-03] MEDS: Metoprolol(XL)Succ 25 MG Tablet 75 MG PO (07:52)
[2022-06-03] MEDS: busPIRone 5 MG Tablet 10 MG PO ×2 (07:53→18:13)
[2022-06-03] MEDS: Venlafaxine XR 75 MG Capsule 225 MG PO (07:55)
[2022-06-03] MEDS: buPROPion (XL) 300 MG TABLET.XL PO (07:56)
[2022-06-03] MEDS: buPROPion (XL) 150 MG TABLET.XL PO (07:56)
[2022-06-03] MEDS: predniSONE 10 MG Tablet PO (07:56)
[2022-06-03] MEDS: Gabapentin 300 MG Capsule PO ×2 (08:05→20:54)
[2022-06-03] MEDS: oxyCODONE 5 MG Tablet PO ×2 (08:05→20:54)
[2022-06-03] MEDS: guaiFENesin 10 ML UDC (200MG/10ML) 20 ML PO (08:05)
--- NOTE | 2022-06-03 09:47 | PN.HOSP_ITS ---
Subjective Subjective Continues to be tachypneic and has increased work of breathing. She refused CPAP overnight and she continues to complain about chest wall pain. Multiple EKGs have been done which were unremarkable and troponins are normal Objective Data Objective Data Vital Signs: Vital Signs Temp Pulse Resp BP Pulse Ox O2 Del Method O2 Flow Rate 98.3 F 122 H 26 H 148/73 H 92 Nasal Cannula 6 06/03/22 06:47 06/03/22 08:23 06/03/22 08:23 06/03/22 07:52 06/03/22 08:09 06/03/22 08:09 06/03/22 08:09 Oxygen Flow Rate (L/min) 6 Oxygen Delivery Method Nasal Cannula Weight: 392 lb 10.292 oz Body Mass Index (BMI) 63.2 Intake & Output: Intake and Output for Last 24 Hours 06/02/22 06/03/22 06/04/22 03:59 03:59 03:59 Intake Total 305 / 305 2221.25 / 2221.25 110 / 110 Output Total 1700 / 1700 400 / 400 Balance 305 / 305 521.25 / 521.25 -290 / -290 Lab / Micro Data Result Diagrams: 06/03/22 06:06 06/03/22 06:06 Labs: Laboratory Results - last 24 hr 06/02/22 02:43: Crossmatch See Detail 06/02/22 12:35: WBC 13.8 H, RBC 3.63 L, Hgb 8.2 L, Hct 28.7 L, MCV 79.1 L, MCH 22.6 L, MCHC 28.6 L, RDW Std Deviation 49.4 H, RDW Coeff of Chepe 17.2 H, Plt Count 500 H, MPV 8.9, Immature Gran % (Auto) 0.500, Neut % (Auto) 68.8, Lymph % (Auto) 14.3 L, [place] % (Auto) 13.0 H, Eos % (Auto) 3.0, Baso % (Auto) 0.4, A bsolute Neuts (auto) 9.5 H, Absolute Lymphs (auto) 1.97, Nucleated RBC % 0.4, Diff Path Review November, Hypersegmented Neuts 28.6, Platelet Estimate SLT INC, Anisocytosis 1+ 06/03/22 06:06: WBC 16.3 H, RBC 3.50 L, Hgb 8.1 L, Hct 27.3 L, MCV 78.0 L, MCH 23.1 L, MCHC 29.7 L, RDW Std Deviation 49.4 H, RDW Coeff of [place]pe 17.3 H, Plt Count 491 H, MPV 9.0, Immature Gran % (Auto) 0.300, Neut % (Auto) 74.0 H, Lymph % (Auto) 11.6 L, [place] % (Auto) 10.2 H, Eos % (Auto) 3.5, Baso % (Auto) 0.4, Absolute Neuts (auto) 12.0 H, Absolute Lymphs (auto) 1.89, Nucleated RBC % 0.2, Diff Path Review November, Platelet Estimate SLT INC, Polychromasia 1+, Hypoch romasia 1+, Anisocytosis 1+, Microcytosis RARE 06/03/22 06:06: Sodium 131 L, Potassium 4.0, Chloride 97 L, Carbon Dioxide 27.0, Anion Gap 7, BUN 16, Creatinine 0.98, Estim Creat Clear Calc 63.58, Est GFR (MDRD) Af Amer 77, Est GFR (MDRD) Non-Af 64, BUN/Creatinine Ratio 16.4, Glucose 119 H, Calcium 9.0 Micro: Microbiology 06/03/22 04:40 Sputum, Expectorated/Coughed Gram Stain - Final 06/02/22 00:00 Mucosa - Nasopharyngeal Respiratory Panel (PCR) - Final 06/02/22 02:12 Urine, Clean Catch Legionella Antigen - Final 06/02/22 02:12 Urine, Clean Catch Streptococcus pneumoniae Antigen (M - Final 06/01/22 23:30 Nasal Secretion SARS-CoV-2 & FLU Antigen (Rapid) - Final ABG Data ABG results: ABG 06/02/22 19:51 Specimen Type ART Sample Site L Radial pH 7.39 Bicarbonate Actual 26.9 H Total CO2 28 Base Excess 2 O2 Saturation 93 L ABG pCO2 44.6 ABG pO2 69 L Ruben Test Positive O2 Delivery Device Cannula Liter Flow 3.0 Physical Exam Narrative General: Alert, Oriented x3, Cooperative, No apparent distress, appears fatigued, morbidly obese HEENT: Atraumatic, PERRLA, EOMI, Normocephalic Oral: Moist Mucosa Neck: Supple, No JVD Lungs: Diminished, tachypneic, Normal air movement, No rhonchi, No wheeze, No rales, body habitus precludes accurate auscultation Cardiovascular: Tachycardic, Regular Rhythm, Normal S1, Normal S2, No murmurs Abdomen: Soft, Non Tender, Non-Distended, No Hepato-splenomegaly Extremities: No edema, Capillary Refill Less than 3 Seconds Skin: No rashes, No breakdown Musculoskeletal: No Tenderness to Palpation of Joints or Extremities Neurological: Cranial nerves II-XII grossly intact, Motor Exam 5/5 strength throughout, Sensory exam intact to light touch and pain Psych/Mental Status: Normal Affect, Appropriate Assessment & Plan Assessment/Plan (1) Pneumonia: PLAN: Plan 1. Acute hypoxic respiratory failure secondary to left lower lobe pneumonia ? She does appear to have some increased work of breathing with shallow breaths and being tachypneic, ABG yesterday did not show an increase in CO2 however I do think that she would benefit from wearing her CPAP today even while awake so will encourage her to do so ? Continue with her antibiotics ? We will continue to encourage incentive spirometry as well as pain control ? Culture data is pending 2. Acute on chronic anemia with iron deficiency anemia as well/GERD ? Unsure if there is a GI bleed, she has noticed that her stools are little bit darker ? Stool occult is pending ? She has been transfused 2 units, she was given a dose of Lasix in between given her work of breathing ? Her hemoglobin is stable ? Continue with PPI ? Appreciate GIs assistance, will plan for EGD tomorrow morning if her respiratory status allows at 3. Hypercoagulable state with a history of VTE ? She does have an MTHFR mutation with a lupus anticoagulant disorder ? She was on Coumadin and then transition to Xarelto ? Given her anemia we will hold 4. Rheumatoid arthritis ? Stable ? We will hold her prednisone 5. Anxiety/depression ? Stable ? Continue with her home medications 6. Morbid obesity/KIKI ? She is planning on getting bariatric surgery ? Discussed lifestyle modifications ? Continue with CPAP at night 7. RLS ? Stable ? Continue with her home medications DVT: SCDs Charges/Coding Visit Charges Inpatient E&M: 29324 Subs Hosp L2
[2022-06-03] MEDS: Ceftriaxone 1 GM/50 ML BAG IV (10:15)
[2022-06-03] MEDS: 0.9% Saline Lock 10 ML Syringe IV (18:19)
[2022-06-03] MEDS: MELATONIN 3 MG TABLET PO (20:54)
[2022-06-03] MEDS: Amitriptyline 25 MG Tablet 50 MG PO (20:56)
[2022-06-03] MEDS: Pramipexole Di-HCl 1 MG Tablet PO (20:57)
[2022-06-04] VITALS (28 sets, daily range): BP systolic 111–145; BP diastolic 67–91; PULSE 92–225; RESP 20–36; TEMP 36.2–37.2; O2SAT 93–100
[2022-06-04] MEDS: oxyCODONE 5 MG Tablet PO ×3 (03:33→20:32)
[2022-06-04 05:20] LABS: Absolute Lymphocyte Count 1.72 X10^3/uL (0.83-4.51); Absolute Neutrophil Count 9.4 X10^3/uL (2.0-7.7); Basophil# 0.04 X10^3/uL; Basophil% 0.3 % (0-1); Eosinophils% 3.8 % (0-5); Hematocrit 26.5 % (37-47); Hemoglobin 7.4 g/dL (12.0-15.0); Lymphocyte # 1.72 X10^3/ul (0.83-4.51); Mean Corp Hgb Conc 27.9 g/dL (32-36); Mean Corpuscular Hgb 22.2 pg (27.0-32.0); Mean Corpuscular Volume 79.6 fL (81-99); Mean Platelet Vol. 9.1 fl (6.2-12.0); Monocyte# 1.51 X10^3/uL; Monocyte% 11.4 % (0-10); NRBC Flagged by Analyzer 0.2 % (0-5); POSITIVE DIFFERENTIAL YES; Platelet Count 513 K/mm3 (150-450); RBC Distribution Width CV 17.8 % (11.6-14.6); RBC Distribution Width SD 51.8 fl (35.1-43.9); Red Blood Count 3.33 M/mm3 (4.2-5.4); White Blood Count 13.2 K/mm3 (4.4-11.0)
[2022-06-04 05:24] LABS: Differential Indicated SCAN CRITERIA MET
[2022-06-04 05:48] LABS: Anion Gap 7 (5-15); BUN 12 mg/dL (7-18); BUN/Creat Ratio 14.3 RATIO (10-20); Calcium,Total 8.9 mg/dL (8.5-10.1); Chloride 96 mmol/L (98-107); Creatinine, Serum 0.84 mg/dL (0.55-1.02); EST Glomerular Filtration Rate 76 mL/min (>60); Est Glom Filt Rate - Afr Amer 92 mL/min (>60); Estimated Creatinine Clearance 74.17 ml/min; Glucose 126 mg/dL (74-106); Sodium Level 132 mmol/L (136-145)
[2022-06-04 06:59] LABS: Anisocytosis 2+; Microcytosis 1+
[2022-06-04 07:01] LABS: Platelet Estimate MOD INC (ADEQ)
[2022-06-04] MEDS: Ipratropium/Albuterol Sulfate 3 ML AMPUL.NEB INHALATION ×3 (07:31→18:58)
[2022-06-04] MEDS: Acetaminophen 325 MG Tablet 650 MG PO ×2 (08:37→20:33)
[2022-06-04] MEDS: buPROPion (XL) 300 MG TABLET.XL PO (08:56)
[2022-06-04] MEDS: Venlafaxine XR 75 MG Capsule 225 MG PO (08:56)
[2022-06-04] MEDS: buPROPion (XL) 150 MG TABLET.XL PO (08:56)
[2022-06-04] MEDS: Gabapentin 300 MG Capsule PO ×2 (08:56→20:33)
[2022-06-04] MEDS: Metoprolol(XL)Succ 25 MG Tablet 75 MG PO (08:58)
--- NOTE | 2022-06-04 10:13 | PCM.PN.HOSP ---
Subjective Subjective DOS: 06/04/2022 CC: Can I eat real food Continues to have pleuritic right-sided chest wall pain, hurts with inspiration. Is on 6 L of O2, slight productive cough, low-grade tachycardia, tachypneic at times with high O2 requirement. Eating well, denies any blood in stool, no nausea. Does report dark urine. Denies other complaints at this time Objective Data Objective Data Vital Signs: Vital Signs Temp Pulse Resp BP Pulse Ox O2 Del Method O2 Flow Rate 98.2 F 111 H 22 H 133/85 H 96 Nasal Cannula 6 06/04/22 10:03 06/04/22 10:03 06/04/22 10:03 06/04/22 10:03 06/04/22 10:03 06/04/22 10:03 06/04/22 10:03 Oxygen Flow Rate (L/min) 6 Oxygen Delivery Method Nasal Cannula Weight: 179.1 kg Body Mass Index (BMI) 63.2 Intake & Output: Intake and Output for Last 24 Hours 06/02/22 06/03/22 06/04/22 23:59 23:59 23:59 Intake Total 2526.25 / 2526.25 1805 / 1805 300 / 300 Output Total 1400 / 1400 1100 / 1100 400 / 400 Balance 1126.25 / 1126.25 705 / 705 -100 / -100 Lab / Micro Data Result Diagrams: 06/04/22 04:36 06/04/22 04:36 Labs: Laboratory Results - last 24 hr 06/04/22 04:36: WBC 13.2 H, RBC 3.33 L, Hgb 7.4 L, Hct 26.5 L, MCV 79.6 L, MCH 22.2 L, MCHC 27.9 L D, RDW Std Deviation 51.8 H, RDW Coeff of [place]pe 17.8 H, Plt Count 513 H, MPV 9.1, Immature Gran % (Auto) 0.500, Neut % (Auto) 71.0 H, Lymph % (Auto) 13.0 L, [place] % (Auto) 11.4 H, Eos % (Auto) 3.8, Baso % (Auto) 0.3, Absolute Neuts (auto) 9.4 H, Absolute Lymphs (auto) 1.72, Nucleated RBC % 0.2, Diff Path Review May tara, Platelet Estimate MOD INC, Anisocytosis 2+, Microcytosis 1+ 06/04/22 04:36: Sodium 132 L, Potassium 4.0, Chloride 96 L, Carbon Dioxide 29.0, Anion Gap 7, BUN 12, Creatinine 0.84, Estim Creat Clear Calc 74.17, Est GFR (MDRD) Af Amer 92, Est GFR (MDRD) Non-Af 76, BUN/Creatinine Ratio 14.3, Glucose 126 H, Calcium 8.9 Micro: Microbiology 06/01/22 23:35 Blood Culture (Wb) - Anticubital Left Blood Culture - Preliminary No growth in 48 hours. 06/01/22 21:20 Blood Culture (Wb) - Anticubital Left Blood Culture - Preliminary No growth in 48 hours. 06/03/22 04:40 Sputum, Expectorated/Coughed Gram Stain - Final 06/02/22 00:00 Mucosa - Nasopharyngeal Respiratory Panel (PCR) - Final 06/02/22 02:12 Urine, Clean Catch Legionella Antigen - Final 06/02/22 02:12 Urine, Clean Catch Streptococcus pneumoniae Antigen (M - Final 06/01/22 23:30 Nasal Secretion SARS-CoV-2 & FLU Antigen (Rapid) - Final Physical Exam Const alert and no apparent distress Constitutional Narrative: Oriented HEENT normocephalic and head/scalp atraumatic Eyes Eyes Narrative: EOM grossly intact, anicteric Neck supple Resp Resp Narrative: Somewhat increased work of breathing, diminished at the bases Cardio regular rate and regular rhythm GI soft to palpation, non-tender and non-distended Extremity Extremity Narrative: No edema appreciated Neuro moves all extremities Neuro Narrative: No overt focal deficits appreciated Psych Psych Narrative: Cooperative Assessment & Plan Assessment/Plan (1) Pneumonia: PLAN: Plan 51-year-old female history of chronic anemia/iron deficiency anemia, GERD, RLS, history of DVT and PE with MTHFR mutation/lupus anticoagulant disorder on Xarelto which was recently changed from Coumadin about 1 month ago, GERD, RA, morbid obesity, KIKI, and history of chronic lower extremity wounds who presented 06/01 with worsening fatigue malaise dyspnea and cough x3 days. Noted to have pneumonia. #Left lower lobe community-acquired pneumonia with acute hypoxic respiratory failure CT of the chest on admission showed left lower lobe infiltrate and minimal left upper lobe infiltrate DuoNebs and as needed albuterol Rocephin and azithro Viral panel and COVID PCR negative Blood cultures negative Legionella and strep pneumo negative Sputum gram stain negative #Acute hypoxic respiratory failure Likely due to the left lower lobe community-acquired pneumonia however with pleuritic right-sided chest pain as well as tachypnea, hypoxia, tachycardia in light of history of lupus anticoagulant and DVT/PE cannot rule out acute PE Was taken off of Coumadin due to problems with compliance/maintaining appointments Does endorse she has been compliant with her Xarelto however given her lupus anticoagulant mutation Coumadin is more effective, possible she still had a clot on Xarelto CTA pending #Acute on chronic anemia/iron deficiency anemia Admission hemoglobin 7.2 which was decreased from her most recent hemoglobin on 02/26 which was 10.3 which appeared to be baseline On iron supplementation On IV PPI GI evaluated and was for EGD but this was canceled due to respiratory status Last colonoscopy about a year ago and notable only for hemorrhoids Has received 2 units of packed red blood cells and was given a dose of Lasix in between due to her work of breathing Home Xarelto held given concern for bleed FOBT pending #History of DVT and PE With MTHFR mutation and lupus anticoagulant disorder Was on chronic Coumadin but was changed to Xarelto 1 month prior, Xarelto had been held secondary to concern for GI bleed #Hyponatremia Has had mildly low in the past ?medication related, trends down any further may need to consider adjusting medications though given extensive psychiatric regimen hesitant to do so unless absolutely necessary #RA On home chronic low-dose prednisone recommended to hold per GI #Morbid obesity Weight loss and lifestyle changes encouraged She is scheduled to get gastric bypass this upcoming year and was to have her first upper endoscopy in about 6 months #Depression and anxiety On Rexulti, amitriptyline, venlafaxine, bupropion, BuSpar #RLS On Requip #History of left lower extremity compartment syndrome with chronic wounds Had a history of fasciotomies and several follow-up surgeries, follows with wound care at [facility] #KIKI on CPAP at bedtime Charges/Coding Visit Charges Inpatient E&M: 55958 Subs Hosp L2
[2022-06-04] MEDS: FLU VACC QS2022-23(6MOS UP)/PF 60 MCG/0.5 ML SYRINGE IM (10:25)
[2022-06-04] MEDS: Ceftriaxone 1 GM/50 ML BAG IV (10:25)
--- NOTE | 2022-06-04 11:30 | CT_ITS ---
STUDY: CTA CHEST REASON FOR EXAM: Female, 51 years old. Tachy, tachypneic, hypoxic, hx of DVT/PE RADIATION DOSAGE (If Supplied By Facility): CTDIvol = ( 29.28 ) mGy, DLP = ( 599.62 ) mGycm TECHNIQUE: The examination was performed with the intravenous administration of IV 100mL Isovue-370. Post-processing of the angiographic images was performed, with multiplanar reformation and 3D reconstruction. Individualized dose optimization techniques were used for this CT. COMPARISON: 06/01/2022 FINDINGS: There is a persistent left pleural effusion that has increased in size. There is associated consolidation within the left lung that has progressed since the prior examination as well. There are new patchy and groundglass opacities within the right upper lobe. Normal enhancement of the main pulmonary artery and right and left pulmonary arteries. There is optimal enhancement of the bilateral peripheral pulmonary arteries. There is no demonstrated pulmonary embolism. There is an aberrant right subclavian artery. There is no demonstrated aortic dissection. Normal heart and pericardium. There are no coronary artery calcifications visualized. Normal mediastinum. Normal hilar regions. Normal visualized trachea and bronchi. There are postsurgical changes within the left breast. Normal osseous structures. The limited images of the upper abdomen demonstrate a diffusely low attenuation liver consistent with fatty infiltration. CT/CTA Chest W/WO Contrast IMPRESSION: No demonstrated pulmonary embolism or arterial dissection. Interval enlargement of left pleural effusion associated with interval progression of consolidation within the left lung, may reflect atelectasis and/or pneumonia. New right upper lobe groundglass and patchy opacities, may reflect edema and/or pneumonia. Fatty infiltration of the liver. Electronically Signed: Rosemary Elmore MD at 12:00 EST ,
[2022-06-04 13:23] LABS: Bacteria 0 SEEN /hpf (None Seen); Mucous, Urine 0 SEEN /hpf (<or=2+)
[2022-06-04 13:26] LABS: Color, Urine Yellow (Yellow); Glucose, Dipstick Normal (Normal); Ketone-Dipstick Negative (Negative); Leukocyte Esterase-Dipstick 500 /ul (Negative); Nitrite-Dipstick Negative (Negative); Occult Blood-Urine 50 /ul (Negative); Protein-Dipstick 15 mg/dl (Negative); Urine Bilirubin Dipstick Negative (Negative); Urine Clarity Clear (Clear); Urine Urobilinogen Normal (Normal); Urine pH 6.5 (5.0 - 8.0)
[2022-06-04 13:45] LABS: Red Blood Cells-Urine 0-5 SEEN /hpf (0-5); Squamous Epithelial Cells - UA 0-5 SEEN /hpf (5-10); White Blood Cells 25-50 SEEN /hpf (0-5)
--- NOTE | 2022-06-04 17:02 | PN_ITS ---
Subjective Subjective She is still very short of breath and requiring 6 L of oxygen with intermittent BiPAP. Objective Data Objective Data Vital Signs: Vital Signs Temp Pulse Resp BP Pulse Ox O2 Del Method O2 Flow Rate 98.1 F 105 H 25 H 141/85 H 94 Nasal Cannula 3 06/05/22 16:24 06/05/22 16:24 06/05/22 16:24 06/05/22 16:24 06/05/22 16:24 06/05/22 16:24 06/05/22 16:24 Oxygen Flow Rate (L/min) 3 Oxygen Delivery Method Nasal Cannula Weight: 395 lb 8.148 oz Body Mass Index (BMI) 63.2 Intake & Output: Intake and Output for Last 24 Hours 06/03/22 06/04/22 06/05/22 23:59 23:59 23:59 Intake Total 1805 / 1805 1475 / 1475 975 / 975 Output Total 1100 / 1100 600 / 600 Balance 705 / 705 875 / 875 975 / 975 Lab / Micro Data Result Diagrams: 06/05/22 05:45 06/05/22 05:45 Labs: Laboratory Results - last 24 hr 06/02/22 12:35: Diff Path Review Reviewed 06/03/22 06:06: Diff Path Review Reviewed 06/04/22 04:36: Diff Path Review Reviewed 06/05/22 05:45: WBC 9.1, RBC 3.22 L, Hgb 7.1 L, Hct 25.6 L, MCV 79.5 L, MCH 22.0 L, MCHC 27.7 L, RDW Std Deviation 52.4 H, RDW Coeff of Chepe 18.3 H, Plt Count 501 H, MPV 9.0, Immature Gran % (Auto) 0.400, Neut % (Auto) 67.5, Lymph % (Auto) 15.6 L, [place] % (Auto) 9.1, Eos % (Auto) 7.0 H, Baso % (Auto) 0.4, Absolute Neuts (auto) 6.2, Absolute Lymphs (auto) 1.43, Nucleated RBC % 0.3 06/05/22 05:45: Sodium 133 L, Potassium 3.8, Chloride 97 L, Carbon Dioxide 29.0, Anion Gap 7, BUN 12, Creatinine 0.78, Estim Creat Clear Calc 79.88, Est GFR (MDRD) Af Amer 99, Est GFR (MDRD) Non-Af 82, BUN/Creatinine Ratio 15.3, Glucose 116 H, Calcium 9.5 Micro: Microbiology 06/03/22 04:40 Sputum, Expectorated/Coughed Gram Stain - Final 06/03/22 04:40 Sputum, Expectorated/Coughed Respiratory Culture - Prelimin martina Presumptive C albicans 06/01/22 23:35 Blood Culture (Wb) - Anticubital Left Blood Culture - Preliminary No growth in 48 hours. 06/01/22 21:20 Blood Culture (Wb) - Anticubital Left Blood Culture - Preliminary No growth in 48 hours. 06/02/22 00:00 Mucosa - Nasopharyngeal Respiratory Panel (PCR) - Final 06/02/22 02:12 Urine, Clean Catch Legionella Antigen - Final 06/02/22 02:12 Urine, Clean Catch Streptococcus pneumoniae Antigen (M - Final 06/01/22 23:30 Nasal Secretion SARS-CoV-2 & FLU Antigen (Rapid) - Final Physical Exam Const alert and no apparent distress Constitutional Narrative: Oriented HEENT normocephalic and head/scalp atraumatic Eyes Eyes Narrative: EOM grossly intact, anicteric Neck supple Resp Resp Narrative: Somewhat increased work of breathing, diminished at the bases Cardio regular rate and regular rhythm GI soft to palpation, non-tender and non-distended Extremity Extremity Narrative: No edema appreciated Neuro moves all extremities Neuro Narrative: No overt focal deficits appreciated Psych Psych Narrative: Cooperative Assessment & Plan Assessment/Plan (1) Anemia: PLAN: ?In a patient whose has hypoalbuminemia, respiratory failure, chronic prednisone therapy, chronic inflammation and chronic hypoxia she is at risk for angiodysplasia, telangiectasias, ulcerative disease throughout her GI tract.? She should undergo an upper endoscopy.? I would hold off until Saturday due to the fact that her respiratory status is still not stable and if she was to get anesthesia that would increase her oxygen requirement as her respiratory rate is dropped for the procedure.? Charges/Coding Visit Charges Inpatient E&M: 15872 Subs Hosp L2
[2022-06-04] MEDS: Pramipexole Di-HCl 1 MG Tablet PO (20:33)
[2022-06-04] MEDS: Amitriptyline 25 MG Tablet 50 MG PO (20:33)
[2022-06-04] MEDS: busPIRone 5 MG Tablet 10 MG PO (20:35)
[2022-06-05] VITALS (20 sets, daily range): BP systolic 129–162; BP diastolic 85–96; PULSE 103–119; RESP 20–33; TEMP 36.4–37.7; O2SAT 92–96
[2022-06-05] MEDS: oxyCODONE 5 MG Tablet PO ×2 (03:11→10:02)
[2022-06-05] MEDS: Acetaminophen 325 MG Tablet 650 MG PO ×2 (03:11→10:04)
[2022-06-05 06:04] LABS: Absolute Lymphocyte Count 1.43 X10^3/uL (0.83-4.51); Absolute Neutrophil Count 6.2 X10^3/uL (2.0-7.7); Basophil# 0.04 X10^3/uL; Basophil% 0.4 % (0-1); Eosinophil# 0.64 X10^3/uL; Hematocrit 25.6 % (37-47); Hemoglobin 7.1 g/dL (12.0-15.0); Lymphocyte # 1.43 X10^3/ul (0.83-4.51); Lymphocyte % 15.6 % (19-41); Mean Corp Hgb Conc 27.7 g/dL (32-36); Mean Corpuscular Volume 79.5 fL (81-99); Monocyte# 0.83 X10^3/uL; Monocyte% 9.1 % (0-10); NRBC Flagged by Analyzer 0.3 % (0-5); Neutrophil # 6.16 X10^3/uL (2.7-7.7); Neutrophil % 67.5 % (47-70); Platelet Count 501 K/mm3 (150-450); RBC Distribution Width CV 18.3 % (11.6-14.6); RBC Distribution Width SD 52.4 fl (35.1-43.9); Red Blood Count 3.22 M/mm3 (4.2-5.4); White Blood Count 9.1 K/mm3 (4.4-11.0)
[2022-06-05 06:40] LABS: Anion Gap 7 (5-15); BUN 12 mg/dL (7-18); BUN/Creat Ratio 15.3 RATIO (10-20); Calcium,Total 9.5 mg/dL (8.5-10.1); Chloride 97 mmol/L (98-107); Creatinine, Serum 0.78 mg/dL (0.55-1.02); EST Glomerular Filtration Rate 82 mL/min (>60); Est Glom Filt Rate - Afr Amer 99 mL/min (>60); Estimated Creatinine Clearance 79.88 ml/min; Glucose 116 mg/dL (74-106); Potassium 3.8 mmol/L (3.5-5.1); Sodium Level 133 mmol/L (136-145)
[2022-06-05] MEDS: Ipratropium/Albuterol Sulfate 3 ML AMPUL.NEB INHALATION ×4 (07:15→20:48)
[2022-06-05 07:54] LABS: Pathologist Review Reviewed
[2022-06-05 08:00] LABS: Pathologist Review Reviewed
--- NOTE | 2022-06-05 08:04 | PN.HOSP_ITS ---
Subjective Subjective DOS 06/05/22 CC: SOB Does report feeling somewhat better this morning from a shortness of breath standpoint, minimal cough. Has not noted blood anywhere though hemoglobin does continue to downtrend. Denies chest pain, has been eating fairly well. Denies other complaints today Objective Data Objective Data Vital Signs: Vital Signs Temp Pulse Resp BP Pulse Ox O2 Del Method O2 Flow Rate 98.2 F 103 H 24 H 153/86 H 94 Nasal Cannula 3 06/05/22 03:08 06/05/22 07:17 06/05/22 07:17 06/05/22 03:08 06/05/22 07:17 06/05/22 07:17 06/05/22 07:17 Oxygen Flow Rate (L/min) 3 Oxygen Delivery Method Nasal Cannula Weight: 179.4 kg Body Mass Index (BMI) 63.2 Intake & Output: Intake and Output for Last 24 Hours 06/03/22 06/04/22 06/05/22 23:59 23:59 23:59 Intake Total 1805 / 1805 1475 / 1475 200 / 200 Output Total 1100 / 1100 600 / 600 Balance 705 / 705 875 / 875 200 / 200 Lab / Micro Data Result Diagrams: 06/05/22 05:45 06/05/22 05:45 Labs: Laboratory Results - last 24 hr 06/02/22 12:35: Diff Path Review Reviewed 06/03/22 06:06: Diff Path Review Reviewed 06/04/22 13:18: Urine Color Yellow, Urine Clarity Clear, Urine pH 6.5, Ur Specific [place] 1.010, Urine Protein 15 H, Urine Glucose (UA) Normal, Urine Ketones Negative, Urine Occult Blood 50 H, Urine Nitrite Negative, Urine Bilirubin Negative, Urine Urobilinogen Normal, Ur Leukocyte Esterase 500 H, Urine RBC 0-5 SEEN, Urine WBC 25-50 SEEN, Ur Squamous Epith Cells 0-5 SEEN, Urine Bacteria 0 SEEN, Urine Mucus 0 SEEN 06/05/22 05:45: WBC 9.1, RBC 3.22 L, Hgb 7.1 L, Hct 25.6 L, MCV 79.5 L, MCH 22.0 L, MCHC 27.7 L, RDW Std Deviation 52.4 H, RDW Coeff of Chepe 18.3 H, Plt Count 501 H, MPV 9.0, Immature Gran % (Auto) 0.400, Neut % (Auto) 67.5, Lymph % (Auto) 15.6 L, [place] % (Auto) 9.1, Eos % (Auto) 7.0 H, Baso % (Auto) 0.4, Absolute Neuts (auto) 6.2, Absolute Lymphs (auto) 1.43, Nucleated RBC % 0.3 06/05/22 05:45: Sodium 133 L, Potassium 3.8, Chloride 97 L, Carbon Dioxide 29.0, Anion Gap 7, BUN 12, Creatinine 0.78, Estim Creat Clear Calc 79.88, Est GFR (MDRD) Af Amer 99, Est GFR (MDRD) Non-Af 82, BUN/Creatinine Ratio 15.3, Glucose 116 H, Calcium 9.5 Micro: Microbiology 06/03/22 04:40 Sputum, Expectorated/Coughed Gram Stain - Final 06/03/22 04:40 Sputum, Expectorated/Coughed Respiratory Culture - Preliminary Presumptive C albicans 06/01/22 23:35 Blood Culture (Wb) - Anticubital Left Blood Culture - Preliminary No growth in 48 hours. 06/01/22 21:20 Blood Culture (Wb) - Anticubital Left Blood Culture - Preliminary No growth in 48 hours. 06/02/22 00:00 Mucosa - Nasopharyngeal Respiratory Panel (PCR) - Final 06/02/22 02:12 Urine, Clean Catch Legionella Antigen - Final 06/02/22 02:12 Urine, Clean Catch Streptococcus pneumoniae Antigen (M - Final 06/01/22 23:30 Nasal Secretion SARS-CoV-2 & FLU Antigen (Rapid) - Final Radiography Diagnostic Testing: Radiology Impression Chest CTA 06/04/22 11:30 IMPRESSION: No demonstrated pulmonary embolism or arterial dissection. Interval enlargement of left pleural effusion associated with interval progression of consolidation within the left lung, may reflect atelectasis and/or pneumonia. New right upper lobe groundglass and patchy opacities, may reflect edema and/or pneumonia. Fatty infiltration of the liver. Electronically Signed: Rosemary Elmore MD at 12:00 EST , Physical Exam Const alert and no apparent distress Constitutional Narrative: Oriented HEENT normocephalic and head/scalp atraumatic Eyes Eyes Narrative: EOM grossly intact, anicteric Neck supple Resp Resp Narrative: Somewhat increased work of breathing, diminished at the bases Cardio regular rate and regular rhythm GI soft to palpation, non-tender and non-distended Extremity Extremity Narrative: No edema appreciated Neuro moves all extremities Neuro Narrative: No overt focal deficits appreciated Psych Psych Narrative: Cooperative Assessment & Plan Assessment/Plan (1) Pneumonia: PLAN: Plan 51-year-old female history of chronic anemia/iron deficiency anemia, GERD, RLS, history of DVT and PE with MTHFR mutation/lupus anticoagulant disorder on Xarelto which was recently changed from Coumadin about 1 month ago, GERD, RA, morbid obesity, KIKI, and history of chronic lower extremity wounds who presented 06/01 with worsening fatigue malaise dyspnea and cough x3 days. Noted to have pneumonia. #Left lower lobe community-acquired pneumonia with acute hypoxic respiratory failure CT of the chest on admission showed left lower lobe infiltrate and minimal left upper lobe infiltrate DuoNebs and as needed albuterol Rocephin and azithro Viral panel and COVID PCR negative Blood cultures negative Legionella and strep pneumo negative Sputum gram stain negative 06/05: Continue antibiotics, slowly improving #Acute hypoxic respiratory failure Likely due to the left lower lobe community-acquired pneumonia however with pleuritic right-sided chest pain as well as tachypnea, hypoxia, tachycardia in light of history of lupus anticoagulant and DVT/PE cannot rule out acute PE Was taken off of Coumadin due to problems with compliance/maintaining appointments Does endorse she has been compliant with her Xarelto however given her lupus anticoagulant mutation Coumadin is more effective, possible she still had a clot on Xarelto CTA pending 06/05: CT negative, slowly improving, continue current management #Acute on chronic anemia/iron deficiency anemia Admission hemoglobin 7.2 which was decreased from her most recent hemoglobin on 02/26 which was 10.3 which appeared to be baseline On iron supplementation On IV PPI GI evaluated and was for EGD but this was canceled due to respiratory status Last colonoscopy about a year ago and notable only for hemorrhoids Has received 2 units of packed red blood cells and was given a dose of Lasix in between due to her work of breathing Home Xarelto held given concern for bleed FOBT pending 06/05: Scope with her tomorrow, Xarelto has been held #History of DVT and PE With MTHFR mutation and lupus anticoagulant disorder Was on chronic Coumadin but was changed to Xarelto 1 month prior, Xarelto had been held secondary to concern for GI bleed #Hyponatremia Has had mildly low in the past ?medication related, trends down any further may need to consider adjusting medications though given extensive psychiatric regimen hesitant to do so unless absolutely necessary #RA On home chronic low-dose prednisone recommended to hold per GI Okay for heating pack #Morbid obesity Weight loss and lifestyle changes encouraged She is scheduled to get gastric bypass this upcoming year and was to have her first upper endoscopy in about 6 months #Depression and anxiety On Rexulti, amitriptyline, venlafaxine, bupropion, BuSpar #RLS On Requip #History of left lower extremity compartment syndrome with chronic wounds Had a history of fasciotomies and several follow-up surgeries, follows with wound care at [facility] #KIKI on CPAP at bedtime Charges/Coding Visit Charges Inpatient E&M: 09166 Subs Hosp L2
[2022-06-05 08:08] LABS: Pathologist Review Reviewed
[2022-06-05] MEDS: Venlafaxine XR 75 MG Capsule 225 MG PO ×2 (10:03→20:36)
[2022-06-05] MEDS: Gabapentin 300 MG Capsule PO ×2 (10:03→20:35)
[2022-06-05] MEDS: buPROPion (XL) 150 MG TABLET.XL PO (10:03)
[2022-06-05] MEDS: buPROPion (XL) 300 MG TABLET.XL PO (10:04)
[2022-06-05] MEDS: Metoprolol(XL)Succ 25 MG Tablet 75 MG PO (10:05)
[2022-06-05] MEDS: Ceftriaxone 1 GM/50 ML BAG IV (11:08)
--- NOTE | 2022-06-05 16:59 | PN_ITS ---
Subjective Subjective She is breathing a lot better. She is being maintained on 3 L of oxygen. She is less tachycardic. She does complain of some mild epigastric pain and nausea. Objective Data Objective Data Vital Signs: Vital Signs Temp Pulse Resp BP Pulse Ox O2 Del Method O2 Flow Rate 98.1 F 105 H 25 H 141/85 H 94 Nasal Cannula 3 06/05/22 16:24 06/05/22 16:24 06/05/22 16:24 06/05/22 16:24 06/05/22 16:24 06/05/22 16:24 06/05/22 16:24 Oxygen Flow Rate (L/min) 3 Oxygen Delivery Method Nasal Cannula Weight: 395 lb 8.148 oz Body Mass Index (BMI) 63.2 Intake & Output: Intake and Output for Last 24 Hours 06/03/22 06/04/22 06/05/22 23:59 23:59 23:59 Intake Total 1805 / 1805 1475 / 1475 975 / 975 Output Total 1100 / 1100 600 / 600 Balance 705 / 705 875 / 875 975 / 975 Lab / Micro Data Result Diagrams: 06/05/22 05:45 06/05/22 05:45 Labs: Laboratory Results - last 24 hr 06/02/22 12:35: Diff Path Review Reviewed 06/03/22 06:06: Diff Path Review Reviewed 06/04/22 04:36: Diff Path Review Reviewed 06/05/22 05:45: WBC 9.1, RBC 3.22 L, Hgb 7.1 L, Hct 25.6 L, MCV 79.5 L, MCH 22.0 L, MCHC 27.7 L, RDW Std Deviation 52.4 H, RDW Coeff of Chepe 18.3 H, Plt Count 501 H, MPV 9.0, Immature Gran % (Auto) 0.400, Neut % (Auto) 67.5, Lymph % (Auto) 15.6 L, [place] % (Auto) 9.1, Eos % (Auto) 7.0 H, Baso % (Auto) 0.4, Absolute Neuts (auto) 6.2, Absolute Lymphs (auto) 1.43, Nucleated RBC % 0.3 06/05/22 05:45: Sodium 133 L, Potassium 3.8, Chloride 97 L, Carbon Dioxide 29.0, Anion Gap 7, BUN 12, Creatinine 0.78, Estim Creat Clear Calc 79.88, Est GFR (MDRD) Af Amer 99, Est GFR (MDRD) Non-Af 82, BUN/Creatinine Ratio 15.3, Glucose 116 H, Calcium 9.5 Micro: Microbiology 06/03/22 04:40 Sputum, Expectorated/Coughed Gram Stain - Final 06/03/22 04:40 Sputum, Expectorated/Coughed Respiratory Culture - Preliminary Presumptive C albicans 06/01/22 23:35 Blood Culture (Wb) - Anticubital Left Blood Culture - Preliminary No growth in 48 hours. 06/01/22 21:20 Blood Culture (Wb) - Anticubital Left Blood Culture - Preliminary No growth in 48 hours. 06/02/22 00:00 Mucosa - Nasopharyngeal Respiratory Panel (PCR) - Final 06/02/22 02:12 Urine, Clean Catch Legionella Antigen - Final 06/02/22 02:12 Urine, Clean Catch Streptococcus pneumoniae Antigen (M - Final 06/01/22 23:30 Nasal Secretion SARS-CoV-2 & FLU Antigen (Rapid) - Final Physical Exam Const alert and no apparent distress Constitutional Narrative: Oriented HEENT normocephalic and head/scalp atraumatic Eyes Eyes Narrative: EOM grossly intact, anicteric Neck supple Resp Resp Narrative: Somewhat increased work of breathing, diminished at the bases Cardio regular rate and regular rhythm GI soft to palpation, non-tender and non-distended Extremity Extremity Narrative: No edema appreciated Neuro moves all extremities Neuro Narrative: No overt focal deficits appreciated Psych Psych Narrative: Cooperative Assessment & Plan Assessment/Plan (1) Anemia: PLAN: Her hemoglobin continues to drop while on anticoagulation. I am concerned that she has a slow GI bleed and upper GI tract. She has agreed to undergo an upper endoscopy tomorrow. She was explained alternatives, risk, benefits include not withstanding bleeding, infection, sepsis, perforation, need for emergent surgery and . Show an ASA of 3. Hold her p.m. dose of Xarelto and n.p.o. past midnight except ice chips. Charges/Coding Visit Charges Inpatient E&M: 39038 Subs Hosp L2
[2022-06-05] MEDS: Morphine 2 MG/ML Syringe IV (20:31)
[2022-06-05] MEDS: 0.9% Saline Lock 10 ML Syringe IV (20:35)
[2022-06-05] MEDS: Pramipexole Di-HCl 1 MG Tablet PO (20:36)
[2022-06-05] MEDS: Amitriptyline 25 MG Tablet 50 MG PO (20:36)
[2022-06-05] MEDS: busPIRone 5 MG Tablet 10 MG PO (20:36)
[2022-06-06] VITALS (24 sets, daily range): BP systolic 126–169; BP diastolic 65–102; PULSE 79–115; RESP 16–22; TEMP 36.5–36.9; O2SAT 92–100
[2022-06-06 05:06] LABS: Absolute Lymphocyte Count 1.97 X10^3/uL (0.83-4.51); Absolute Neutrophil Count 5.5 X10^3/uL (2.0-7.7); Basophil# 0.06 X10^3/uL; Basophil% 0.7 % (0-1); Eosinophil# 0.62 X10^3/uL; Eosinophils% 6.8 % (0-5); Hematocrit 24.9 % (37-47); Hemoglobin 7.2 g/dL (12.0-15.0); Lymphocyte # 1.97 X10^3/ul (0.83-4.51); Lymphocyte % 21.7 % (19-41); Mean Corp Hgb Conc 28.9 g/dL (32-36); Mean Corpuscular Hgb 22.8 pg (27.0-32.0); Mean Corpuscular Volume 78.8 fL (81-99); Mean Platelet Vol. 8.7 fl (6.2-12.0); Monocyte# 0.91 X10^3/uL; NRBC Flagged by Analyzer 0.7 % (0-5); Neutrophil # 5.48 X10^3/uL (2.7-7.7); Neutrophil % 60.5 % (47-70); Platelet Count 508 K/mm3 (150-450); RBC Distribution Width CV 18.3 % (11.6-14.6); RBC Distribution Width SD 53.1 fl (35.1-43.9); Red Blood Count 3.16 M/mm3 (4.2-5.4); White Blood Count 9.1 K/mm3 (4.4-11.0)
[2022-06-06 05:59] LABS: ALB/GLOB Ratio 0.4 RATIO (0.9-2.4); AST(SGOT) 37 U/L (15-37); Alanine Aminotransfer ALT/SGPT 30 U/L (13-56); Albumin, Serum 2.2 g/dL (3.2-5.0); Alkaline Phosphatase 93 U/L (45-117); Anion Gap 5 (5-15); BUN 11 mg/dL (7-18); BUN/Creat Ratio 16.1 RATIO (10-20); Calcium,Total 9.5 mg/dL (8.5-10.1); Chloride 101 mmol/L (98-107); Creatinine, Serum 0.68 mg/dL (0.55-1.02); EST Glomerular Filtration Rate 96 mL/min (>60); Est Glom Filt Rate - Afr Amer 116 mL/min (>60); Estimated Creatinine Clearance 91.63 ml/min; Globulin 5.4 g/dL (2.2-4.2); Glucose 94 mg/dL (74-106); Potassium 3.9 mmol/L (3.5-5.1); Protein, Total 7.6 g/dL (6.4-8.2); Sodium Level 137 mmol/L (136-145)
[2022-06-06] MEDS: Ipratropium/Albuterol Sulfate 3 ML AMPUL.NEB INHALATION (06:59)
--- NOTE | 2022-06-06 08:43 | CPS ---
patient weaned to 3 lpm.
[2022-06-06] MEDS: Ceftriaxone 1 GM/50 ML BAG IV (09:34)
--- NOTE | 2022-06-06 10:01 | PN.HOSP_ITS ---
Subjective Subjective Continues to feel better, for EGD today. Breathing slowly improving, trying to cough but not producing any sputum. Objective Data Objective Data Vital Signs: Vital Signs Temp Pulse Resp BP Pulse Ox O2 Del Method O2 Flow Rate 98.3 F 108 H 22 H 132/80 H 94 Nasal Cannula 4 06/06/22 09:11 06/06/22 09:43 06/06/22 09:43 06/06/22 09:11 06/06/22 09:43 06/06/22 09:43 06/06/22 09:43 Oxygen Flow Rate (L/min) 4 Oxygen Delivery Method Nasal Cannula Weight: 179.8 kg Body Mass Index (BMI) 63.2 Intake & Output: Intake and Output for Last 24 Hours 06/04/22 06/05/22 06/06/22 23:59 23:59 23:59 Intake Total 1475 / 1475 1445 / 1445 100 / 100 Output Total 600 / 600 Balance 875 / 875 1445 / 1445 100 / 100 Lab / Micro Data Result Diagrams: 06/06/22 04:46 06/06/22 04:46 Labs: Laboratory Results - last 24 hr 06/06/22 04:46: WBC 9.1, RBC 3.16 L, Hgb 7.2 L, Hct 24.9 L, MCV 78.8 L, MCH 22.8 L, MCHC 28.9 L, RDW Std Deviation 53.1 H, RDW Coeff of Chepe 18.3 H, Plt Count 508 H, MPV 8.7, Immature Gran % (Auto) 0.300, Neut % (Auto) 60.5, Lymph % (Auto) 21.7, [place] % (Auto) 10.0, Eos % (Auto) 6.8 H, Baso % (Auto) 0.7, Absolute Neuts (auto) 5.5, Absolute Lymphs (auto) 1.97, Nucleated RBC % 0.7 06/06/22 04:46: Sodium 137, Potassium 3.9, Chloride 101, Carbon Dioxide 31.0, Anion Gap 5, BUN 11, Creatinine 0.68, Estim Creat Clear Calc 91.63, Est GFR ( MDRD) Af Amer 116, Est GFR (MDRD) Non-Af 96, BUN/Creatinine Ratio 16.1, Glucose 94, Calcium 9.5, Total Bilirubin 0.30, AST 37, ALT 30, Alkaline Phosphatase 93, Total Protein 7.6, Albumin 2.2 L, Globulin 5.4 H, Albumin/Globulin Ratio 0.4 L Micro: Microbiology 06/03/22 04:40 Sputum, Expectorated/Coughed Gram Stain - Final 06/03/22 04:40 Sputum, Expectorated/Coughed Respiratory Culture - Final Presumptive C albicans 06/01/22 23:35 Blood Culture (Wb) - Anticubital Left Blood Culture - Preliminary No growth in 48 hours. 06/01/22 21:20 Blood Culture (Wb) - Anticubital Left Blood Culture - Pre liminary No growth in 48 hours. 06/02/22 00:00 Mucosa - Nasopharyngeal Respiratory Panel (PCR) - Final 06/02/22 02:12 Urine, Clean Catch Legionella Antigen - Final 06/02/22 02:12 Urine, Clean Catch Streptococcus pneumoniae Antigen (M - Final 06/01/22 23:30 Nasal Secretion SARS-CoV-2 & FLU Antigen (Rapid) - Final Physical Exam Const alert and no apparent distress Constitutional Narrative: Oriented HEENT normocephalic and head/scalp atraumatic Eyes Eyes Narrative: EOM grossly intact, anicteric Neck supple Resp Resp Narrative: Somewhat increased work of breathing, diminished at the bases Cardio regular rate and regular rhythm GI soft to palpation, non-tender and non-distended Extremity Extremity Narrative: No edema appreciated Neuro moves all extremities Neuro Narrative: No overt focal deficits appreciated Psych Psych Narrative: Cooperative Assessment & Plan Assessment/Plan (1) Pneumonia: PLAN: Plan 51-year-old female history of chronic anemia/iron deficiency anemia, GERD, RLS, history of DVT and PE with MTHFR mutation/lupus anticoagulant disorder on Xarelto which was recently changed from Coumadin about 1 month ago, GERD, RA, morbid obesity, KIKI, and history of chronic lower extremity wounds who presented 06/01 with worsening fatigue malaise dyspnea and cough x3 days. Noted to have pneumonia. #Left lower lobe community-acquired pneumonia with acute hypoxic respiratory failure CT of the chest on admission showed left lower lobe infiltrate and minimal left upper lobe infiltrate DuoNebs and as needed albuterol Rocephin and azithro Viral panel and COVID PCR negative Blood cultures negative Legionella and strep pneumo negative Sputum gram stain negative 06/05: Continue antibiotics, slowly improving 11/16 oxygen requirement is slowly improving. Continue current care. Mildly tachycardic but suspect this is due to increased work of breathing and problems with lungs and not a primary cardiac complaint. Is monitored on telemetry #Acute hypoxic respiratory failure Likely due to the left lower lobe community-acquired pneumonia however with pleuritic right-sided chest pain as well as tachypnea, hypoxia, tachycardia in light of history of lupus anticoagulant and DVT/PE cannot rule out acute PE Was taken off of Coumadin due to problems with compliance/maintaining appointments Does endorse she has been compliant with her Xarelto however given her lupus anticoagulant mutation Coumadin is more effective, possible she still had a clot on Xarelto CTA pending 06/05: CT negative, slowly improving, continue current management #Acute on chronic anemia/iron deficiency anemia Admission hemoglobin 7.2 which was decreased from her most recent hemoglobin on 02/26 which was 10.3 which appeared to be baseline On iron supplementation On IV PPI GI evaluated and was for EGD but this was canceled due to respiratory status Last colonoscopy about a year ago and notable only for hemorrhoids Has received 2 units of packed red blood cells and was given a dose of Lasix in between due to her work of breathing Home Xarelto held given concern for bleed FOBT pending 06/05: Scope with her tomorrow, Xarelto has been held 06/06: For EGD today, Xarelto has been held #History of DVT and PE With MTHFR mutation and lupus anticoagulant disorder Was on chronic Coumadin but was changed to Xarelto 1 month prior, Xarelto had been held secondary to concern for GI bleed #Hyponatremia?resolved #RA On home chronic low-dose prednisone recommended to hold per GI Okay for heating pack #Morbid obesity Weight loss and lifestyle changes encouraged She is scheduled to get gastric bypass this upcoming year and was to have her first upper endoscopy in about 6 months #Depression and anxiety On Rexulti, amitriptyline, venlafaxine, bupropion, BuSpar #RLS On Requip #History of left lower extremity compartment syndrome with chronic wounds Had a history of fasciotomies and several follow-up surgeries, follows with wound care at [place] #KIKI on CPAP at bedtime Charges/Coding Visit Charges Inpatient E&M: 68683 Subs Hosp L2
--- NOTE | 2022-06-06 15:16 | OP.EGD_ITS ---
Patient Name: Neris Cali Procedure Date: 06/06/2022 2:36 PM Date of : 1970 Age: 51 Procedure: Upper GI endoscopy Indications: Iron deficiency anemia, Melena Providers: Michael Mcgill DO Medicines: Monitored Anesthesia Care Patient Profile: This is a 51 year old female. Refer to note in patient chart for documentation of history and physical. Patient has symptoms of acute epigastric abdominal pain, acute dyspepsia and acute nausea. Complications: No immediate complications. Procedure: Pre-Anesthesia Assessment: - Prior to the procedure, a History and Physical was performed, and patient medications and allergies were reviewed. The risks and benefits of the procedure and the sedation options and risks were discussed with the patient. All questions were answered and informed consent was obtained. Patient identification and proposed procedure were verified by the physician in the pre-procedure area. Mental Status Examination: normal. Prophylactic Antibiotics: The patient does not require prophylactic antibiotics. Prior Anticoagulants: The patient has taken no previous anticoagulant or antiplatelet agents. ASA Grade Assessment: III - A patient with severe systemic disease. After reviewing the risks and benefits, the patient was deemed in satisfactory condition to undergo the procedure. The anesthesia plan was to use monitored anesthesia care (MAC). Immediately prior to administration of medications, the patient was re-assessed for adequacy to receive sedatives. The heart rate, respiratory rate, oxygen saturations, blood pressure, adequacy of pulmonary ventilation, and response to care were monitored throughout the procedure. The physical status of the patient was re-assessed after the procedure. After obtaining informed consent, the endoscope was passed under direct vision. Throughout the procedure, the patient's blood pressure, pulse, and oxygen saturations were monitored continuously. The Endoscope was introduced through the mouth, and advanced to the second part of duodenum. The upper GI endoscopy was accomplished without difficulty. The patient tolerated the procedure well. Scope In: 2:56:02 PM Scope Out: 3:02:27 PM Total Procedure Duration Time 0 hours 6 minutes 25 seconds Findings: One tongue of salmon-colored mucosa was present at 37 cm. [place] were present at 39 cm. The maximum longitudinal extent of these esophageal mucosal changes was 1 cm in length. A medium-sized hiatal hernia was present. A single 5 mm bleeding angiodysplastic lesion was found on the greater curvature of the gastric body. Coagulation for hemostasis using heater probe was successful. Estimated blood loss was minimal. The second portion of the duodenum was normal. Impression: - [place]-colored mucosa suspicious for Yin's esophagus. - Medium-sized hiatal hernia. - A single bleeding angiodysplastic lesion in the stomach. Treated with a heater probe. - Normal second portion of the duodenum. - No specimens collected. Recommendation: - Return patient to [facility] for ongoing care. - Use Protonix (pantoprazole) 40 mg PO BID for 8 weeks. - Continue present medications. Procedure Code(s): --- Professional --- 48162, Esophagogastroduodenoscopy, flexible, transoral; with control of bleeding, any method CPT copyright 2017 [employer]. All rights reserved. The codes documented in this report are preliminary and upon business asst review may be revised to meet current compliance requirements. Michael Mcgill DO 06/06/2022 3:15:35 PM This report has been signed electronically. Number of Addenda: 0 Note Initiated On: 06/06/2022 2:36 PM
--- NOTE | 2022-06-06 15:16 | OP.CCLET_ITS ---
06/06/2022 Tarah Parker Do Re : Upper GI endoscopy procedure for Neris Cali Dear Keith This procedure was performed on Monday, June 06, 2022. My impressions and recommendations are as follows: Impressions : - [place]-colored mucosa suspicious for Yin's esophagus. - Medium-sized hiatal hernia. - A single bleeding angiodysplastic lesion in the stomach. Treated with a heater probe. - Normal second portion of the duodenum. - No specimens collected. Recommendations : - Return patient to [facility] for [facility] care. - Use Protonix (pantoprazole) 40 mg PO BID for 8 weeks. - Continue present medications. My findings are described in the full procedure note, which is enclosed. If I can be of further assistance, please feel free to contact me at . Sincerely, Michael Mcgill, 06/06/2022 3:15:35 PM This report has been signed electronically.
[2022-06-06] MEDS: Metoprolol(XL)Succ 25 MG Tablet 75 MG PO (16:04)
[2022-06-06] MEDS: buPROPion (XL) 300 MG TABLET.XL PO (16:05)
[2022-06-06] MEDS: Venlafaxine XR 75 MG Capsule 225 MG PO (16:05)
[2022-06-06] MEDS: buPROPion (XL) 150 MG TABLET.XL PO (16:05)
[2022-06-06] MEDS: MELATONIN 3 MG TABLET PO (22:36)
[2022-06-06] MEDS: Pramipexole Di-HCl 1 MG Tablet PO (22:36)
[2022-06-06] MEDS: Amitriptyline 25 MG Tablet 50 MG PO (22:36)
[2022-06-06] MEDS: Gabapentin 300 MG Capsule PO (22:36)
[2022-06-06] MEDS: Morphine 2 MG/ML Syringe IV (22:37)
[2022-06-07] VITALS (9 sets, daily range): BP systolic 124–169; BP diastolic 72–102; PULSE 108–119; RESP 18–30; TEMP 36.3–36.6; O2SAT 85–96
[2022-06-07] MEDS: guaiFENesin 10 ML UDC (200MG/10ML) 20 ML PO (02:32)
[2022-06-07 04:57] LABS: Absolute Lymphocyte Count 1.92 X10^3/uL (0.83-4.51); Absolute Neutrophil Count 4.7 X10^3/uL (2.0-7.7); Basophil# 0.07 X10^3/uL; Basophil% 0.8 % (0-1); Eosinophil# 0.56 X10^3/uL; Eosinophils% 6.8 % (0-5); Lymphocyte # 1.92 X10^3/ul (0.83-4.51); Lymphocyte % 23.2 % (19-41); Mean Corpuscular Hgb 22.4 pg (27.0-32.0); Mean Corpuscular Volume 79.9 fL (81-99); Monocyte# 0.96 X10^3/uL; Monocyte% 11.6 % (0-10); NRBC Flagged by Analyzer 0.4 % (0-5); Neutrophil # 4.73 X10^3/uL (2.7-7.7); Neutrophil % 57.1 % (47-70); Platelet Count 529 K/mm3 (150-450); RBC Distribution Width CV 18.6 % (11.6-14.6); RBC Distribution Width SD 53.7 fl (35.1-43.9); Red Blood Count 3.13 M/mm3 (4.2-5.4); White Blood Count 8.3 K/mm3 (4.4-11.0)
[2022-06-07 05:28] LABS: Anion Gap 7 (5-15); BUN 11 mg/dL (7-18); BUN/Creat Ratio 14.3 RATIO (10-20); Calcium,Total 9.4 mg/dL (8.5-10.1); Chloride 100 mmol/L (98-107); Creatinine, Serum 0.77 mg/dL (0.55-1.02); EST Glomerular Filtration Rate 84 mL/min (>60); Est Glom Filt Rate - Afr Amer 102 mL/min (>60); Estimated Creatinine Clearance 80.92 ml/min; Glucose 106 mg/dL (74-106); Potassium 3.8 mmol/L (3.5-5.1); Sodium Level 137 mmol/L (136-145)
[2022-06-07] MEDS: Ipratropium/Albuterol Sulfate 3 ML AMPUL.NEB INHALATION ×2 (06:59→10:56)
[2022-06-07] MEDS: Morphine 2 MG/ML Syringe IV (07:09)
[2022-06-07] MEDS: Ceftriaxone 1 GM/50 ML BAG IV (09:02)
[2022-06-07] MEDS: Iron Polysaccharide Complex 150 MG CAPSULE PO (09:16)
[2022-06-07] MEDS: Gabapentin 300 MG Capsule PO (09:16)
[2022-06-07] MEDS: 0.9% Saline Lock 10 ML Syringe IV (09:18)
--- NOTE | 2022-06-07 10:35 | DCINST_ITS ---
Discharge Instructions Diet Discharge Diet: No restrictions Activity Discharge Activity: Return to Normal Activity (Return to normal activity as tolerated) Follow Up Care Test Results: Test results from this visit will be discussed in further detail at your follow- up appointment, if applicable. Discharge Plan Admission Admit Date/Time: 06/01/22 23:34 Primary Reason for Your Visit: Shortness of breath Attending Provider: Maryam Santos Primary Care Provider: Tarah Dubon Consulting Providers: Berna Cisneros ; Kavin Pickens Instructions Patient Instructions: ED Pneumonia (Adult) Additional Instructions / Restrictions: *Please take this with you to your next doctors appointment* ?Follow-up with Dr. Mcgill with gastroenterology upon discharge. Please call for hospital follow-up appointment ?Would recommend you obtain blood work (CBC) through your PCPs office in 3 to 5 days to check your hemoglobin. Please call your PCP upon discharge to obtain lab work order and schedule hospital follow-up appointment ? You have been started on iron supplementation, you will take this daily ? You will be sent home with oxygen, you will likely not require this long-term but is important that you wear it upon discharge. ?Your metoprolol dose was increased to 75 mg daily for your heart rate, a new prescription will be sent to your preferred pharmacy on file ?You will be sent with a course of inhalers to take for the next 7 days ?You will be sent with antibiotics as well, Augmentin twice daily that you will start 06/08. You will take this for an additional 4 days -Please call your primary care provider's office upon discharge to schedule a hospital follow up within 1 week. -For any concerning signs or symptoms please call 911 or proceed to the nearest emergency department Discharge Orders/Prescriptions Prescriptions: New polysaccharide iron complex [Ferrex 150] 150 mg iron Capsule 150 mg PO DAILY 30 Days Qty: 30 0RF metoprolol succinate 25 mg Tablet Extended Release 24 Hr 75 mg PO DAILY 30 Days Qty: 90 0RF albuterol sulfate 90 mcg/actuation HFA aerosol inhaler 2 puff inhalation Q6H 7 Days Qty: 8.5 0RF ipratropium bromide 17 mcg/actuation HFA aerosol inhaler 2 puff inhalation Q6H 7 Days Qty: 12.9 0RF Rx Instructions: administer with spacer amoxicillin-pot clavulanate 875-125 mg tablet 1 tab PO BID 4 Days Qty: 8 0RF Rx Instructions: Started 06/08 Continued bupropion HCl 300 MG tablet extended release 24 hr 300 mg PO DAILY ropinirole 2 MG tablet extended release 24 hr 2 mg PO QHS venlafaxine 150 MG capsule 225 mg PO DAILY Label Comments: TAKE 1 CAPSULE BY MOUTH ONCE A DAY prednisone 1 MG tablet 10 mg PO DAILY buspirone 5 MG tablet 10 mg PO PRN PRN (Reason: Anxiety) acetaminophen 325 MG tablet 650 mg PO Q6H PRN PRN (Reason: Pain Score 1-10/Temp > 100.7 F) 0RF Rexulti 4 mg Tablet 10 mg PO DAILY amitriptyline 25 mg tablet 50 mg PO QHS gabapentin 300 mg capsule 300 cap BID bupropion HCl 150 mg tablet extended release 24 hr 150 mg PO DAILY Label Comments: TAKE 1 TABLET BY MOUTH EVERY DAY; TAKE IN ADDITION TO THE 300MG DOSE buprenorphine 5 mcg/hour patch weekly 1 patch transdermal QWEEK Label Comments: APPLY ONE PATCH TO SKIN DIRECTED EVERY WEEK FOR 28 DAYS Xarelto 20 mg tablet 20 mg PO DAILY Label Comments: TAKE 1 TABLET BY MOUTH EVERY DAY WITH SUPPER pantoprazole 40 mg tablet,delayed release (DR/EC) 40 mg PO BID Discontinued metoprolol succinate 50 MG tablet 50 mg PO DAILY 0RF levofloxacin 750 mg tablet 750 mg PO DAILY Qty: 5 0RF Referrals / Follow Up: Tarah Dubon DO [Primary Care Provider] - Within 1 Week Michael Mcgill DO [Med Staff - Active Staff] - See Referral Note (Follow-up with Dr. Mcgill with gastroenterology upon discharge. Please call for hospital follow-up appointment) Disposition Disposition (needs filled in before D/C Order can be placed): Home, Self Care
--- NOTE | 2022-06-07 11:18 | CASEMGMT ---
ZENON ROMAN updated that patient will need home oxygen at discharge. ZENON ROMAN in to discuss home oxygen with patient. Patient states she is wanting to leave as soon a possible and states she prefers [facility] for home oxygen. ZENON ROMAN explained that patient would need to wait for portable tank to be delivered which could take some time. Patient states she has had [employer] in the past and would like them again. ZENON ROMAN received script for home oxygen and sent to [facility] via [facility]. ZENON ROMAN called Leila at [facility] regarding home oxygen setup. CM will continue to follow this patient and plan for a safe discharge.
--- NOTE | 2022-06-07 14:09 | DS.PCM_ITS ---
Providers Date of Admission: 06/01/22 Date of Discharge: 06/07/22 Primary Care Physician: Dr. Tarah Dubon, DO Consultations 06/02/22 01:55 Consult: Gastroenterology Routine Consulting Provider: [facility] Reason for Consult: Questionable GI bleed, acute anemia on chronic, dropping. EMERGENT Consult: No MD Notified: Yes Date Notified: 06/02/22 Time Notified: 01:55 Method of Notification: Text Reason For Visit: PNA, HYPOXIA Diagnosis Discharge Diagnosis (1) Pneumonia: Status: Acute Code(s): J18.9 - Pneumonia, unspecified organism Plan #Left lower lobe community-acquired pneumonia with acute hypoxic respiratory failure #Acute hypoxic respiratory failure #Acute on chronic anemia/iron deficiency anemia #History of DVT and PE #Hyponatremia?resolved #RA #Morbid obesity #Depression and anxiety #RLS #History of left lower extremity compartment syndrome with chronic wounds #KIKI Medications at Discharge Home Medications bupropion HCl 300 mg 24 hr tablet, extended release 300 mg PO DAILY mental health 08/25/18 ropinirole 2 mg tablet,extended release 24 hr 2 mg PO QHS restless legs 08/25/18 venlafaxine 150 mg capsule,extended release 24 hr 225 mg PO DAILY mental health 04/10/19 prednisone 1 mg tablet 10 mg PO DAILY RA 05/18/19 buspirone 5 mg tablet 10 mg PO PRN PRN Anxiety 03/04/20 acetaminophen 325 mg tablet 650 mg PO Q6H PRN PRN Pain Score 1-10/Temp > 100.7 F 05/25/20 brexpiprazole 4 mg tablet (Rexulti) 10 mg PO DAILY mental health 01/29/21 amitriptyline 25 mg tablet 50 mg PO QHS sleep 02/25/22 gabapentin 300 mg capsule 300 cap BID back pain 02/25/22 buprenorphine 5 mcg/hour weekly transdermal patch 1 patch transdermal QWEEK pain 06/01/22 bupropion HCl 150 mg 24 hr tablet, extended release 150 mg PO DAILY mental health 06/01/22 rivaroxaban 20 mg tablet (Xarelto) 20 mg PO DAILY blood thinner 06/01/22 pantoprazole 40 mg tablet,delayed release 40 mg PO BID stomach 06/02/22 albuterol sulfate 90 mcg/actuation aerosol inhaler 2 puff inhalation Q6H shortness of breath or wheezing 7 days #8.5 grams 06/07/22 amoxicillin 875 mg-potassium clavulanate 125 mg tablet 1 tab PO BID 4 days #8 tabs 06/07/22 ipratropium bromide 17 mcg/actuation HFA aerosol inhaler 2 puff inhalation Q6H 7 days #12.9 grams 06/07/22 metoprolol succinate 25 mg tablet,extended release 24 hr 75 mg PO DAILY 30 days #90 tabs 06/07/22 polysaccharide iron complex 150 mg iron capsule (Ferrex) 150 mg PO DAILY 30 days #30 caps 06/07/22 Hospital Course Summary of Care Provided Minutes Spent on Discharge: 34 Hospital Course: The patient is a 51 y/o F w/ PMHx: Chronic anemia/Fe deficiency anemia, RLS, Hx VTE (DVT, PE) w/ MTHFR mutation/Lupus anticoagulant disorder on xarelto recently changed from coumadin ~ 1 month prior, Depression and Anxiety, GERD, Rheumatoid arthritis, Morbid Obesity, KIKI, Hx Chronic LE Wounds following at [facility] who presents to the [facility] ED on 06/01/22 with history of progressively worsening fatigue, malaise, dyspnea with cough over the last 3 days progressively worsening with pleuritic discomfort, worse with deep inspiratory effort prompting eventual ED evaluation. CTA on admission showed left lower lobe infiltrate and minimal left upper lobe infiltrate. She was started on duo nebs, Zithromax, Rocephin, and oxygen. In regards to her breathing she had a very slow recovery and therefore was discharged on a slightly longer course of antibiotics and with inhalers. Did qualify for O2 at rest and with ambulation on discharge. Additionally was noted to have admission hemoglobin of 7.2 with her most recent hemoglobin in February 8.8. She was on IV PPI and iron supplementation. She received 2 units of packed red blood cells during her admission. GI consulted and it was noted she had recent colonoscopy that was unremarkable, EGD initially scheduled but given respiratory status it was canceled. It was then performed 06/06 and there was a angiodysplastic lesion which was cauterized. GI okay with resumption of Xarelto and prednisone with BMPs every 2 weeks until follow-up with GI outpatient in June. Hemoglobin was stable the following day. Ms. Cali requested discharge and given improvement in breathing and cauterization of angiodysplastic lesion it was reasonable to discharge home with O2. Of note she was mildly tachycardic during her admission, sinus tachycardia and this is felt to be due to to her respiratory status, anticipate this will improve as respiratory status continues to improve. Instructions for patient provided as below: *Please take this with you to your next doctors appointment* ?Follow-up with Dr. Mcgill with gastroenterology upon discharge.? Please call for hospital follow-up appointment ?Would recommend you obtain blood work (CBC) through your PCPs office in 3 to 5 days to check your hemoglobin.? Please call your PCP upon discharge to obtain lab work order and schedule hospital follow-up appointment ? You have been started on iron supplementation, you will take this daily ? You will be sent home with oxygen, you will likely not require this long-term but is important that you wear it upon discharge. ?Your metoprolol dose was increased to 75 mg daily for your heart rate, a new prescription will be sent to your preferred pharmacy on file ?You will be sent with a course of inhalers to take for the next 7 days ?You will be sent with antibiotics as well, Augmentin twice daily that you will start 06/08.? You will take this for an additional 4 days -Please call your primary care provider's office upon discharge to schedule a hospital follow up within 1 week. -For any concerning signs or symptoms please call 911 or proceed to the nearest emergency department You will need blood work (CBC) to monitor your blood counts every 2 weeks until your appointment with Dr. Mcgill on July 20, please call Dr. Mcgill's office or your primary care physician upon discharge to obtain order for blood work Physical Exam Const alert and no apparent distress Constitutional Narrative: Oriented HEENT normocephalic and head/scalp atraumatic Eyes Eyes Narrative: EOM grossly intact, anicteric Neck supple Resp Resp Narrative: Diminished at the bases Cardio regular rhythm Cardio Narrative: Low-grade tachycardia when moving around GI soft to palpation, non-tender and non-distended Extremity Extremity Narrative: No edema appreciated Neuro moves all extremities Neuro Narrative: No overt focal deficits appreciated Psych Psych Narrative: Cooperative Weight / BMI Weight Weight: 174.5 kg Body Mass Index (BMI) 63.2 ABG / Lab / Microbiology Data Result Diagrams: 06/07/22 04:15 06/07/22 04:15 Laboratory: Laboratory Results - last 24 hr 06/07/22 04:15: WBC 8.3, RBC 3.13 L, Hgb 7.0 L, Hct 25.0 L, MCV 79.9 L, MCH 22.4 L, MCHC 28.0 L, RDW Std Deviation 53.7 H, RDW Coeff of Chepe 18.6 H, Plt Count 529 H, MPV 9.0, Immature Gran % (Auto) 0.500, Neut % (Auto) 57.1, Lymph % (Auto) 23.2, [place] % (Auto) 11.6 H, Eos % (Auto) 6.8 H, Baso % (Auto) 0.8, Absolute Neuts (auto) 4.7, Absolute Lymphs (auto) 1.92, Nucleated RBC % 0.4 06/07/22 04:15: Sodium 137, Potassium 3.8, Chloride 100, Carbon Dioxide 30.0, Anion Gap 7, BUN 11, Creatinine 0.77, Estim Creat Clear Calc 80.92, Est GFR (MDRD) Af Amer 102, Est GFR (MDRD) Non-Af 84, BUN/Creatinine Ratio 14.3, Glucose 106, Calcium 9.4 Microbiology: Microbiology 06/01/22 21:20 Blood Culture (Wb) - Anticubital Left Blood Culture - Final No growth in 5 days. 06/01/22 23:35 Blood Culture (Wb) - Anticubital Left Blood Culture - Final No growth in 5 days. 06/06/22 13:30 Stool Stool Occult Blood (BIANKA) - Final Occult Blood Positive 06/03/22 04:40 Sputum, Expectorated/Coughed Gram Stain - Final 06/03/22 04:40 Sputum, Expectorated/Coughed Respiratory Culture - Final Presumptive C albicans 06/02/22 00:00 Mucosa - Nasopharyngeal Respiratory Panel (PCR) - Final 06/02/22 02:12 Urine, Clean Catch Legionella Antigen - Final 06/02/22 02:12 Urine, Clean Catch Streptococcus pneumoniae Antigen (M - Final 06/01/22 23:30 Nasal Secretion SARS-CoV-2 & FLU Antigen (Rapid) - Final D/C Instructions Discharge Diet: No restrictions Meaningful Use Info Meaningful Use Diagnoses (Choose all that apply): None applicable Discharge Plan Admission Admit Date/Time: 06/01/22 23:34 Primary Reason for Your Visit: Shortness of breath Attending Provider: Maryam Santos Primary Care Provider: Tarah Dubon Consulting Providers: Berna Cisneros ; Kavin Pickens Instructions Patient Instructions: ED Pneumonia (Adult) Additional Instructions / Restrictions: *Please take this with you to your next doctors appointment* ?Follow-up with Dr. Mcgill with gastroenterology upon discharge. Please call for hospital follow-up appointment ? You will need blood work (CBC) to monitor your blood counts every 2 weeks until your appointment with Dr. Mcgill on July 20, please call Dr. Mcgill's office or your primary care physician upon discharge to obtain order for blood work ? You have been started on iron supplementation, you will take this daily ? You will be sent home with oxygen, you will likely not require this long-term but is important that you wear it upon discharge. ?Your metoprolol dose was increased to 75 mg daily for your heart rate, a new prescription will be sent to your preferred pharmacy on file ?You will be sent with a course of inhalers to take for the next 7 days ?You will be sent with antibiotics as well, Augmentin twice daily that you will start 06/08. You will take this for an additional 4 days -Please call your primary care provider's office upon discharge to schedule a hospital follow up within 1 week. -For any concerning signs or symptoms please call 911 or proceed to the nearest emergency department Patient Problems: Altered Health Status related to Hospitalization Patient Goals: *Optimal Level of Health *Keep Appointments *Medication Compliance *Remain Safe Discharge Orders/Prescriptions Prescriptions: New polysaccharide iron complex [Ferrex 150] 150 mg iron Capsule 150 mg PO DAILY 30 Days Qty: 30 0RF metoprolol succinate 25 mg Tablet Extended Release 24 Hr 75 mg PO DAILY 30 Days Qty: 90 0RF albuterol sulfate 90 mcg/actuation HFA aerosol inhaler 2 puff inhalation Q6H 7 Days Qty: 8.5 0RF ipratropium bromide 17 mcg/actuation HFA aerosol inhaler 2 puff inhalation Q6H 7 Days Qty: 12.9 0RF Rx Instructions: administer with spacer amoxicillin-pot clavulanate 875-125 mg tablet 1 tab PO BID 4 Days Qty: 8 0RF Rx Instructions: Started 06/08 Continued bupropion HCl 300 MG tablet extended release 24 hr 300 mg PO DAILY ropinirole 2 MG tablet extended release 24 hr 2 mg PO QHS venlafaxine 150 MG capsule 225 mg PO DAILY Label Comments: TAKE 1 CAPSULE BY MOUTH ONCE A DAY prednisone 1 MG tablet 10 mg PO DAILY buspirone 5 MG tablet 10 mg PO PRN PRN (Reason: Anxiety) acetaminophen 325 MG tablet 650 mg PO Q6H PRN PRN (Reason: Pain Score 1-10/Temp > 100.7 F) 0RF Rexulti 4 mg Tablet 10 mg PO DAILY amitriptyline 25 mg tablet 50 mg PO QHS gabapentin 300 mg capsule 300 cap BID bupropion HCl 150 mg tablet extended release 24 hr 150 mg PO DAILY Label Comments: TAKE 1 TABLET BY MOUTH EVERY DAY; TAKE IN ADDITION TO THE 300MG DOSE buprenorphine 5 mcg/hour patch weekly 1 patch transdermal QWEEK Label Comments: APPLY ONE PATCH TO SKIN DIRECTED EVERY WEEK FOR 28 DAYS Xarelto 20 mg tablet 20 mg PO DAILY Label Comments: TAKE 1 TABLET BY MOUTH EVERY DAY WITH SUPPER pantoprazole 40 mg tablet,delayed release (DR/EC) 40 mg PO BID Discontinued metoprolol succinate 50 MG tablet 50 mg PO DAILY 0RF levofloxacin 750 mg tablet 750 mg PO DAILY Qty: 5 0RF Referrals / Follow Up: Tarah Dubon DO [Primary Care Provider] - 06/19/22 10:00 am Michelle Lawrence EMISSIONS TESTING AND REPAIR TECHNICIAN, EMISSIONS TESTING AND REPAIR TECHNICIAN-C [Med Staff - [facility] Practice Prof] - 07/20/22 11:30 am Disposition Disposition (needs filled in before D/C Order can be placed): Home, Self Care Charges/Coding Visit Charges Inpatient E&M: 59583 Disch Hosp
== END 2022-06-07 13:33 | disposition home or self-care (01) | DRG 193 ==
LOC: ED 23:35 → PCU 06-02 03:05
PROVIDERS: Family Medicine; Internal Medicine Gastroenterology; Admitting Provider Family Medicine; Emergency Provider Emergency Medicine; PCP Family Medicine; Visit Provider Internal Medicine
PROC: 0DJ08ZZ Inspection of Upper Intestinal Tract, Via Natural or Artificial Opening Endoscopic (ICD-10-PCS; CPT 43235; principal; 2022-06-06 14:35)
DX: J18.9 Pneumonia, unspecified organism (principal); J96.01 Acute respiratory failure with hypoxia; K31.811 Angiodysplasia of stomach and duodenum with bleeding; Z68.44 Body mass index [BMI] 60.0-69.9, adult; E87.1 Hypo-osmolality and hyponatremia; E66.01 Morbid (severe) obesity due to excess calories; M06.9 Rheumatoid arthritis, unspecified; E88.09 Other disorders of plasma-protein metabolism, not elsewhere classified; G47.33 Obstructive sleep apnea (adult) (pediatric); D50.9 Iron deficiency anemia, unspecified; K21.9 Gastro-esophageal reflux disease without esophagitis; K22.70 Barrett's esophagus without dysplasia; K44.9 Diaphragmatic hernia without obstruction or gangrene; F41.9 Anxiety disorder, unspecified; G25.81 Restless legs syndrome; Z79.01 Long term (current) use of anticoagulants; Z79.52 Long term (current) use of systemic steroids; F32.A Depression, unspecified; Z80.1 Family history of malignant neoplasm of trachea, bronchus and lung; Z86.718 Personal history of other venous thrombosis and embolism; Z86.711 Personal history of pulmonary embolism; Z23 Encounter for immunization
CPT/HCPCS: 36415; 36600; 70450; 71275; 80048; 80053; 81001; 82274; 82803; 83605; 83880; 84145; 84484; 85014; 85018; 85025; 85610; 85730; 86850; 86900; 86901; 86920; 86922; 87040; 87070; 87205; 87428; 87449; 87633; 87635; 93005; 94640; 94762; 99251; 99285; G0008; J7030; J7040; J7050; P9016; Q9967; 90686; A4216; G0463; J1940; J2405; U0003; U0005

== ENCOUNTER 2022-09-21 08:16 | Emergency (ER) | payer MEDICARE, MEDICAID, SELFPAY ==
[2022-09-21 08:17] VITALS: BP 139/77; PULSE 128; RESP 24; TEMP 37.1; O2SAT 98; BMI 57.7
--- NOTE | 2022-09-21 08:28 | EDS_ITS ---
HPI History of Present Illness Chief Complaint: Nausea/Vomiting Informant: patient Narrative Narrative: Patient presents with nausea. She states that 10:00 last night she felt nauseated. This was her typical acid reflux feeling. She felt the sour taste in her mouth. This caused her to vomit once and had a little bit of red blood in it. She vomited 1 more time that had red blood. This has not recurred for about 8 and half or 9 hours now. She is still nauseated but no more vomiting. She has a little bit of left upper quadrant soreness. She has not been having diarrhea or black stools. She does state that she had a little bit of vaginal bleeding that stopped spontaneously several days ago. But she has none of that now and no pain or discomfort there. She does not feel lightheaded or dizzy. Patient states she was switched from warfarin to Xarelto about 6 months ago. She feels as though she is having more problems with bleeding. She will have different areas that bruise and bleed more easily and cuts bleed longer than they did than when she was on Coumadin. 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 Lupus anticoagulant disorder Morbid obesity MTHFR mutation KIKI (obstructive sleep apnea) Pleural effusion, left Pulmonary embolism Rheumatoid arthritis Sinus tachycardia Home Medications bupropion HCl 300 mg 24 hr tablet, extended release 300 mg PO DAILY mental health 08/25/18 [History Last Taken 09/20/22] ropinirole 2 mg tablet,extended release 24 hr 2 mg PO QHS restless legs 08/25/18 [History Last Taken 09/20/22] gabapentin 300 mg capsule 300 cap BID back pain 02/25/22 [History Last Taken 09/20/22] buprenorphine 5 mcg/hour weekly transdermal patch 1 patch transdermal QWEEK pain 06/01/22 [History Last Taken 2 Weeks Ago ~09/07/22] rivaroxaban 20 mg tablet (Xarelto) 20 mg PO DAILY blood thinner 06/01/22 [History Last Taken 09/20/22] pantoprazole 40 mg tablet,delayed release 40 mg PO BID stomach 06/02/22 [History Last Taken 09/20/22] Probiotic 1 ea PO/SL DAILY IMMUNE HEALTH 09/21/22 [History Last Taken 09/20/22] amitriptyline 10 mg tablet 10 mg PO QHS SLEEP 09/21/22 [History Last Taken 09/20/22] atenolol 50 mg tablet 50 mg PO DAILY HEART 09/21/22 [History Last Taken 09/20/22] biotin 1 ea PO/SL DAILY SUPPLEMENT 09/21/22 [History Last Taken 09/20/22] brexpiprazole 1 mg tablet (Rexulti) 1 mg PO DAILY MENTAL HEALTH 09/21/22 [History Last Taken 09/20/22] buspirone 10 mg tablet 10 mg PO DAILY ANXIETY 09/21/22 [History Last Taken 09/20/22] buspirone 10 mg tablet 20 mg PO QHS ANXIETY 09/21/22 [History Last Taken 09/20/22] ferrous sulfate 325 mg (65 mg iron) tablet 325 mg PO DAILY SUPPLEMENT 09/21/22 [History Last Taken 09/20/22] fluvoxamine 100 mg tablet 100 mg PO DAILY MENTAL HEALTH 09/21/22 [History Last Taken 09/20/22] ondansetron 4 mg disintegrating tablet 4 mg PO Q8H PRN PRN Nausea #10 tabs 09/21/22 [Rx Last Taken Unknown] prednisone 5 mg tablet 10 mg PO DAILY RA 09/21/22 [History Last Taken 09/20/22] Allergy/AdvReac Type Severity Reaction Status Date / Time adhesive tape AdvReac Rash Verified 09/21/22 08:19 Family History Mother Cancer Lung CA w/ concurrent tobacco use. Heart disease Surgical History History of fasciotomy History of hysterectomy History of total bilateral knee replacement S/P pericardial window creation Social History household members: family Smoking Status: Never smoker alcohol intake: never substance use type: does not use ROS ROS ED Constitutional Constitutional ED: Denies chills or fever(s) Eyes Eyes: Denies change in vision ENT ENT ED: Denies rhinorrhea or sore throat Cardiovascular Cardiovascular: Denies chest pain or palpitations Respiratory/Chest Respiratory/Chest: Denies cough, dyspnea or sputum Gastrointestinal Gastrointestinal: Reports nausea; Denies diarrhea or vomiting Genitourinary Genitourinary ED: Reports other Details: Vaginal spotting earlier in the week as in history of present illness. ; Denies dysuria, hematuria or urinary frequency Musculoskeletal Musculoskeletal: Denies back pain or myalgias Integumentary Denies rash Neurologic Neurologic: Denies paresthesias or weakness Endocrine Endocrinology: Denies polydipsia or polyuria Hematologic/Lymphatic Hematologic/Lymphatic: Reports easy bleeding and easy bruising Allergic/Immunologic Allergic/Immunologic ED: Denies urticaria EXAM Physical Exam Narrative Exam Narrative: Patient is awake alert sitting on bed in no acute distress. She does not look pale or diaphoretic. HEENT shows no trauma. Mucous membranes are moist Eyes show no pallor or icterus Neck is difficult to assess for JVD. Lungs are clear bilaterally. No pain with a deep breath. Heart is regular but does appear to be tachycardic at about 110. Peripheral pulses are equal. Abdomen is soft with normal bowel sounds. No notable distention but difficult to assess. She has some soreness in the left upper quadrant but really no tenderness. No suprapubic tenderness Extremities show no no significantly abnormal bruising. Back shows no CVA tenderness. Skin shows no abnormal bruising diaphoresis pallor or mottling Const Vital Signs: 09/21/22 08:17 09/21/22 09:19 Temperature 98.8 F Temperature Source Temporal Pulse Rate 128 H 88 Respiratory Rate 24 H 18 Blood Pressure 139/77 H 106/50 L Blood Pressure Mean 97 68 Pulse Ox 98 95 Oxygen Delivery Method Room Air Nasal Cannula Oxygen Flow Rate (L/min) 2 MDM MDM MDM Narrative Medical decision making narrative: Patient's labs do show anemia at 7.6. But she also has very low MCV MCH and MCHC. This is likely contributed by iron deficiency. I do find out that she does have iron supplementation at home. PT and PTT show minimal elevations that are consistent with being on Xarelto are the although these are not typically followed for that reason. Electrolytes show minimal elevations of BUN and creatinine. But her BUN is not high enough that 1 with think she is having significant GI absorption of nitrogen as blood products. LFTs shows no marked abnormalities. Patient was feeling better. She had a little cramping intermittently but the nausea was gone. She has not vomited for over 10 to 11 hours. This is a complex patient. She has significant anemia but it looks like that is not new. I asked if she knows any blood test or results between discharge and now but she does not. Therefore I do not know if she had could have gone up and then back down or maybe she dropped further and is now going up. But she does look to have low indices with anemia and needs to be back on and start taking her iron. I discussed the case with Dr. Mcgill who did the scope on her back in May. We feel that since she only had 2 episodes of vomiting and had a little bit of blood and is not showing any signs of continued bleeding we can get her home. But this is done with caution. If she has worsening pain or bleeding she needs to return. I went back and talked with her again. She had another episode of cramping but no nausea or vomiting. We are going to consider doing a CT scan. I actually started putting that in but she decided she feels better and would just like to go home. Therefore that study was not completed. I will write for meds for nausea. She has pantoprazole and iron at home to take. History & Record Review Discussion w/independent historian: Artem Additional record(s) reviewed:: Prior inpatient record and Prior labs Lab Data Labs: Laboratory Results - last 24 hr 09/21/22 09/21/22 09/21/22 08:40 08:40 08:40 WBC 8.4 RBC 3.76 L Hgb 7.6 L Hct 29.1 L MCV 77.4 L MCH 20.2 L MCHC 26.1 L RDW Std Deviation 50.1 H RDW Coeff of Chepe 18.1 H Plt Count 579 H MPV 8.9 Immature Gran % (Auto) 0.500 Neut % (Auto) 53.8 Lymph % (Auto) 31.9 [place] % (Auto) 9.5 Eos % (Auto) 3.6 Baso % (Auto) 0.7 Absolute Neuts (auto) 4.5 Absolute Lymphs (auto) 2.69 Nucleated RBC % 0 Reactive Lymphocytes RARE PT 21.1 H INR 1.9 APTT 39.3 H Sodium 139 Potassium 3.9 Chloride 100 Carbon Dioxide 29.0 Anion Gap 10 BUN 21 H Creatinine 1.03 H Estim Creat Clear Calc 60.49 Est GFR (MDRD) Af Amer 72 Est GFR (MDRD) Non-Af 60 BUN/Creatinine Ratio 20.4 H Glucose 103 Calcium 9.5 Total Bilirubin 0.20 AST 16 ALT 17 Alkaline Phosphatase 71 Total Protein 7.6 Albumin 2.7 L Globulin 4.9 H Albumin/Globulin Ratio 0.6 L Lipase 09/21/22 08:40 WBC RBC Hgb Hct MCV MCH MCHC RDW Std Deviation RDW Coeff of Chepe Plt Count MPV Immature Gran % (Auto) Neut % (Auto) Lymph % (Auto) [place] % (Auto) Eos % (Auto) Baso % (Auto) Absolute Neuts (auto) Absolute Lymphs (auto) Nucleated RBC % Reactive Lymphocytes PT INR APTT Sodium Potassium Chloride Carbon Dioxide Anion Gap BUN Creatinine Estim Creat Clear Calc Est GFR (MDRD) Af Amer Est GFR (MDRD) Non-Af BUN/Creatinine Ratio Glucose Calcium Total Bilirubin AST ALT Alkaline Phosphatase Total Protein Albumin Globulin Albumin/Globulin Ratio Lipase 203 EKG Initial EKG: Comments: My independent interpretation of the patient's EKG done for tachycardia shows sinus rhythm with tachycardic rate at 112. No ventricular ectopy. No acute ST elevation or depression but there is some nonspecific ST and T wave change. [place] interval, QRS duration and QTc are normal. The EKG is overall similar to 02 June 2022 but it is a little slower now than at that EKG. Discharge Plan Triage Chief Complaint: Nausea/Vomiting Other Complaint: GI Bleed ED Provider: Tim Tsai Dx/Rx/DC Orders Clinical Impression: Nausea & vomiting, Abdominal pain, Anemia, Hematemesis Instructions: ED Upper GI Bleeding (Stable) Prescriptions: New ondansetron [ondansetron] 4 mg tablet,disintegrating 4 mg PO Q8H PRN PRN (Reason: Nausea) Qty: 10 0RF No Action bupropion HCl 300 MG tablet extended release 24 hr 300 mg PO DAILY ropinirole 2 MG tablet extended release 24 hr 2 mg PO QHS gabapentin 300 mg capsule 300 cap BID buprenorphine 5 mcg/hour patch weekly 1 patch transdermal QWEEK Label Comments: APPLY ONE PATCH TO SKIN DIRECTED EVERY WEEK FOR 28 DAYS Xarelto 20 mg tablet 20 mg PO DAILY Label Comments: TAKE 1 TABLET BY MOUTH EVERY DAY WITH SUPPER pantoprazole 40 mg tablet,delayed release (DR/EC) 40 mg PO BID prednisone 5 mg tablet 10 mg PO DAILY Label Comments: TAKE 2 TABLETS BY MOUTH EVERY DAY. NEEDS OFFICE VISIT amitriptyline 10 mg tablet 10 mg PO QHS fluvoxamine 100 mg tablet 100 mg PO DAILY ferrous sulfate 325 mg (65 mg iron) tablet 325 mg PO DAILY Label Comments: TAKE 1 TABLET BY MOUTH EVERY DAY buspirone 10 mg tablet 10 mg PO DAILY Label Comments: TAKE 1 TABLET BY MOUTH EVERY MORNING AND TAKE 2 TABLETS BY MOUTH AT BEDTIME buspirone 10 mg tablet 20 mg PO QHS Label Comments: TAKE 1 TABLET BY MOUTH EVERY MORNING AND TAKE 2 TABLETS BY MOUTH AT BEDTIME atenolol 50 mg tablet 50 mg PO DAILY Label Comments: TAKE 1 TABLET BY MOUTH EVERY DAY Rexulti 1 mg tablet 1 mg PO DAILY Label Comments: TAKE 1 TABLET BY MOUTH EVERY DAY Probiotic 1 ea PO/SL DAILY biotin 1 ea PO/SL DAILY Primary Care Provider: Tarah Dubon Referrals: Tarah Dubon DO [Primary Care Provider] - 3-5 Days if not improving Michael Mcgill DO [Med Staff - Active Staff] - As soon as possible Disposition Disposition: Home, Self Care Discharge Date/Time: 09/21/22 11:38
--- NOTE | 2022-09-21 08:30 | EKG12_ITS ---
Test Reason : GENERAL Blood Pressure : / mmHG Vent. Rate : 112 BPM Atrial Rate : 112 BPM P-R Int : 128 ms QRS Dur : 076 ms QT Int : 324 ms P-R-T Axes : 047 066 081 degrees QTc Int : 442 ms Sinus tachycardia Possible Left atrial enlargement Nonspecific ST abnormality Abnormal ECG Confirmed by LATIA LEON, VALENCIA ([id number]), scientific publications editor GILBERT ZHOU ([id number]) on 09/24/2022 11:23:42 AM Referred By: Confirmed By:VALENCIA JEFFERY MD
[2022-09-21] MEDS: Ondansetron 4 MG/2 ML Vial IV (08:44)
[2022-09-21 08:57] LABS: Absolute Lymphocyte Count 2.69 X10^3/uL (0.83-4.51); Absolute Neutrophil Count 4.5 X10^3/uL (2.0-7.7); Basophil# 0.06 X10^3/uL; Basophil% 0.7 % (0-1); Eosinophils% 3.6 % (0-5); Hematocrit 29.1 % (37-47); Hemoglobin 7.6 g/dL (12.0-15.0); Lymphocyte # 2.69 X10^3/ul (0.83-4.51); Lymphocyte % 31.9 % (19-41); Mean Corp Hgb Conc 26.1 g/dL (32-36); Mean Corpuscular Hgb 20.2 pg (27.0-32.0); Mean Corpuscular Volume 77.4 fL (81-99); Mean Platelet Vol. 8.9 fl (6.2-12.0); Monocyte% 9.5 % (0-10); NRBC Flagged by Analyzer 0 % (0-5); Neutrophil # 4.54 X10^3/uL (2.7-7.7); Neutrophil % 53.8 % (47-70); POSITIVE MORPHOLOGY YES; Platelet Count 579 K/mm3 (150-450); RBC Distribution Width CV 18.1 % (11.6-14.6); RBC Distribution Width SD 50.1 fl (35.1-43.9); Red Blood Count 3.76 M/mm3 (4.2-5.4); White Blood Count 8.4 K/mm3 (4.4-11.0)
[2022-09-21 09:03] LABS: Differential Indicated SCAN CRITERIA MET
[2022-09-21 09:07] LABS: International Normalized Ratio 1.9; Prothrombin Time (Protime)PT. 21.1 SECONDS (11.7-14.9)
[2022-09-21 09:08] LABS: Partial Thromboplast Time 39.3 Seconds (24.1-36.2)
[2022-09-21 09:16] LABS: ALB/GLOB Ratio 0.6 RATIO (0.9-2.4); AST(SGOT) 16 U/L (15-37); Alanine Aminotransfer ALT/SGPT 17 U/L (13-56); Albumin, Serum 2.7 g/dL (3.2-5.0); Alkaline Phosphatase 71 U/L (45-117); Anion Gap 10 (5-15); BUN 21 mg/dL (7-18); BUN/Creat Ratio 20.4 RATIO (10-20); Calcium,Total 9.5 mg/dL (8.5-10.1); Chloride 100 mmol/L (98-107); Creatinine, Serum 1.03 mg/dL (0.55-1.02); EST Glomerular Filtration Rate 60 mL/min (>60); Est Glom Filt Rate - Afr Amer 72 mL/min (>60); Estimated Creatinine Clearance 60.49 ml/min; Globulin 4.9 g/dL (2.2-4.2); Glucose 103 mg/dL (74-106); Potassium 3.9 mmol/L (3.5-5.1); Protein, Total 7.6 g/dL (6.4-8.2); Sodium Level 139 mmol/L (136-145)
[2022-09-21 09:19] VITALS: BP 106/50; PULSE 88; RESP 18; O2SAT 95
[2022-09-21 09:57] LABS: Reactive Lymphocyte RARE
[2022-09-21 11:25] LABS: Lipase 203 U/L (73-393)
== END 2022-09-21 11:38 | disposition home or self-care (01) ==
PROVIDERS: Emergency Provider Emergency Medicine; PCP Family Medicine; Visit Provider Emergency Medicine
DX: R10.9 Unspecified abdominal pain (principal); D64.9 Anemia, unspecified; K92.0 Hematemesis; G47.33 Obstructive sleep apnea (adult) (pediatric); K21.9 Gastro-esophageal reflux disease without esophagitis; F41.9 Anxiety disorder, unspecified; F32.A Depression, unspecified; Z86.711 Personal history of pulmonary embolism; Z79.01 Long term (current) use of anticoagulants; Z79.899 Other long term (current) drug therapy
CPT/HCPCS: 80053; 83690; 85025; 85610; 85730; 93005; 96374; 99283; A4216; J2405

== ENCOUNTER 2022-10-23 12:50 | Inpatient (IN) | payer MEDICARE, MEDICAID, SELFPAY ==
[2022-10-23] VITALS (9 sets, daily range): BP systolic 101–132; BP diastolic 47–74; PULSE 75–119; RESP 16–24; TEMP 36.1–37.3; O2SAT 92–99; BMI 38.9; BMI 55.3
--- NOTE | 2022-10-23 13:19 | ED.VIS.GI ---
HPI HPI - GI History of Present Illness Chief Complaint: Nausea/Vomiting/Diarrhea Informant: patient Abdominal Pain/Flank Pain Worsened by: Nothing Relieved by: Nothing Nausea/Vomiting/Emesis GI Symptom: Positive for Nausea and Vomiting Onset: Yesterday Quality: Positive for - (Dark emesis) Diarrhea/Melena/Hematochezia GI Symptom: Positive for Diarrhea; Negative for Hematochezia Onset: Yesterday Stool Quality: Positive for - (Dark) Associated Symptoms Associated Symptoms: Negative for Dysuria, Frequency or Hematuria Narrative Narrative: Patient presents with nausea, vomiting, and diarrhea that began yesterday. Patient states today she had an episode of vomiting where she vomited up dark emesis. Patient states she has had diarrhea since yesterday as well. Patient states her stools have been dark. Patient denies any abdominal pain. Patient denies any urinary complaints. Patient states she was having a fever up to 101.2 at home. Patient does admit to some mild back pain. 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 Lupus anticoagulant disorder Morbid obesity MTHFR mutation KIKI (obstructive sleep apnea) Pleural effusion, left Pulmonary embolism Rheumatoid arthritis Sinus tachycardia Home Medications bupropion HCl 300 mg 24 hr tablet, extended release 300 mg PO DAILY mental health 08/25/18 [History Last Taken 09/20/22] ropinirole 2 mg tablet,extended release 24 hr 2 mg PO QHS restless legs 08/25/18 [History Last Taken 09/20/22] gabapentin 300 mg capsule 300 cap BID back pain 02/25/22 [History Last Taken 09/20/22] buprenorphine 5 mcg/hour weekly transdermal patch 1 patch transdermal QWEEK pain 06/01/22 [History Last Taken 2 Weeks Ago ~09/07/22] rivaroxaban 20 mg tablet (Xarelto) 20 mg PO DAILY blood thinner 06/01/22 [History Last Taken 09/20/22] pantoprazole 40 mg tablet,delayed release 40 mg PO BID stomach 06/02/22 [History Last Taken 09/20/22] Probiotic 1 ea PO/SL DAILY IMMUNE HEALTH 09/21/22 [History Last Taken 09/20/22] amitriptyline 10 mg tablet 10 mg PO QHS SLEEP 09/21/22 [History Last Taken 09/20/22] atenolol 50 mg tablet 50 mg PO DAILY HEART 09/21/22 [History Last Taken 09/20/22] biotin 1 ea PO/SL DAILY SUPPLEMENT 09/21/22 [History Last Taken 09/20/22] brexpiprazole 1 mg tablet (Rexulti) 1 mg PO DAILY MENTAL HEALTH 09/21/22 [History Last Taken 09/20/22] buspirone 10 mg tablet 10 mg PO DAILY ANXIETY 09/21/22 [History Last Taken 09/20/22] buspirone 10 mg tablet 20 mg PO QHS ANXIETY 09/21/22 [History Last Taken 09/20/22] ferrous sulfate 325 mg (65 mg iron) tablet 325 mg PO DAILY SUPPLEMENT 09/21/22 [History Last Taken 09/20/22] fluvoxamine 100 mg tablet 100 mg PO DAILY MENTAL HEALTH 09/21/22 [History Last Taken 09/20/22] ondansetron 4 mg disintegrating tablet 4 mg PO Q8H PRN PRN Nausea #10 tabs 09/21/22 [Rx Last Taken Unknown] prednisone 5 mg tablet 10 mg PO DAILY RA 09/21/22 [History Last Taken 09/20/22] Allergy/AdvReac Type Severity Reaction Status Date / Time adhesive tape AdvReac Rash Verified 10/23/22 12:52 Family History Mother Cancer Lung CA w/ concurrent tobacco use. Heart disease Surgical History History of fasciotomy History of hysterectomy History of total bilateral knee replacement S/P pericardial window creation Social History household members: family Smoking Status: Never smoker alcohol intake: never substance use type: does not use ROS ROS ED Constitutional Constitutional ED: Reports fever(s); Denies chills Eyes Eyes: Denies blurry vision or change in vision ENT ENT ED: Denies rhinorrhea or sore throat Cardiovascular Cardiovascular: Denies chest pain or palpitations Respiratory/Chest Respiratory/Chest: Denies cough or dyspnea Gastrointestinal Gastrointestinal: Reports diarrhea, nausea and vomiting Genitourinary Genitourinary ED: Denies dysuria or hematuria Musculoskeletal Musculoskeletal: Reports back pain; Denies neck pain Integumentary Denies abscess or rash Neurologic Neurologic: Denies headache(s) or weakness Allergic/Immunologic Allergic/Immunologic ED: Denies mouth swelling or urticaria EXAM Physical Exam Const Vital Signs: 10/23/22 12:52 10/23/22 12:53 10/23/22 14:38 Temperature 96.9 F L 97.5 F L 97.5 F L Temperature Source Temporal Temporal Oral Pulse Rate 119 H 104 H 75 Respiratory Rate 24 H 18 22 H Blood Pressure 116/66 101/52 L 115/47 L Blood Pressure Mean 82 68 69 Pulse Ox 97 92 96 Oxygen Delivery Method Room Air Room Air Room Air 10/23/22 15:00 10/23/22 16:00 Temperature 98.2 F 98.3 F Temperature Source Oral Oral Pulse Rate 98 96 Respiratory Rate 16 18 Blood Pressure 132/74 H 124/72 H Blood Pressure Mean 93 89 Pulse Ox 97 98 Oxygen Delivery Method Room Air Room Air Positive well nourished, well developed and obese General Appearance ED: well developed and NAD Nutritional Appearance: obese HEENT Reports moist mucous membranes Neck supple and no JVD Resp normal respiratory effort and clear to auscultation bilaterally Cardio regular rate, regular rhythm and no murmurs GI normal to inspection, nondistended, normoactive bowel sounds Palpation: soft and tender epigastric, LLQ, RLQ, LUQ, RUQ, periumbilical and suprapubic; Negative for guarding or rebound tenderness present Extremity normal to inspection General Extremety ED: Negative for edema or tenderness General Extremity: Negative for edema Neuro oriented x3, CN's II-XII intact bilaterally, moves all extremities and no sensory deficits noted Sensorium / Orientation: alert Motor Exam: strength 5/5 throughout Psych mental status grossly normal Skin no rashes or lesions noted MDM MDM MDM Narrative Medical decision making narrative: Differential diagnosis includes peptic ulcer disease, gastrointestinal bleeding, pancreatitis, bowel obstruction, bowel perforation, urinary tract infection, and electrolyte abnormality. CBC will be obtained to assess for leukocytosis and anemia. Comprehensive metabolic profile will be obtained to assess for renal function, hepatic function, and electrolyte abnormality. Urinalysis will be obtained to assess for urinary tract infection. Lipase will be obtained to assess for pancreatitis. CT scan of the abdomen pelvis will be obtained to assess for bowel obstruction or perforation. Lab Data Attestation: I reviewed the patient's lab results. Lab results narrative: CBC was reviewed. There is a leukocytosis of 17.9. Hemoglobin was 8.0 hematocrit was 28.6. Platelets were normal. Comprehensive metabolic profile was reviewed. Sodium was slightly low at 129 and chloride was 96. Potassium was slightly low at 3.4. Creatinine was slightly elevated at 1.14. Lipase was normal at 80. Urinalysis was reviewed. There is a leukocyte esterase of 500 with 25-50 white blood cells. Labs: Laboratory Results - last 24 hr 10/23/22 10/23/22 10/23/22 13:42 13:42 15:20 WBC 17.9 H RBC 3.47 L Hgb 8.0 L Hct 28.6 L MCV 82.4 MCH 23.1 L MCHC 28.0 L RDW Std Deviation 72.1 H RDW Coeff of Chepe 25.2 H Plt Count 368 MPV 9.3 Immature Gran % (Auto) 0.700 Neut % (Auto) 88.2 H Lymph % (Auto) 6.2 L Lewis % (Auto) 4.1 Eos % (Auto) 0.4 Baso % (Auto) 0.4 Absolute Neuts (auto) 15.8 H Absolute Lymphs (auto) 1.11 Nucleated RBC % 0.2 Differential Comment SCANNED Anisocytosis 2+ Microcytosis 1+ Macrocytosis 1+ Sodium 129 L Potassium 3.4 L Chloride 96 L Carbon Dioxide 28.0 Anion Gap 5 BUN 17 Creatinine 1.14 H Estim Creat Clear Calc 54.65 Est GFR (MDRD) Af Amer 64 Est GFR (MDRD) Non-Af 53 L BUN/Creatinine Ratio 14.9 Glucose 144 H Calcium 9.4 Total Bilirubin 0.70 AST 24 ALT 18 Alkaline Phosphatase 73 Total Protein 7.6 Albumin 2.6 L Globulin 5.0 H Albumin/Globulin Ratio 0.5 L Lipase 80 Urine Color Yellow Urine Clarity Sl Cloudy Urine pH 6.0 Ur Specific [place] 1.010 Urine Protein 15 H Urine Glucose (UA) Normal Urine Ketones Negative Urine Occult Blood 25 H Urine Nitrite Negative Urine Bilirubin Negative Urine Urobilinogen Normal Ur Leukocyte Esterase 500 H Urine RBC 0-5 SEEN Urine WBC 25-50 SEEN Ur Squamous Epith Cells 0-5 SEEN Urine Bacteria 0 SEEN Urine Mucus 0 SEEN Radiography Diagnostic Testing: Clinical Impression(s) from Imaging Studies Abdomen/Pelvis CT 10/23/22 13:42 IMPRESSION: Mild hepatomegaly and diffuse fatty infiltration of the liver. Moderate sized hiatal hernia. Electronically Signed: Yan Clement MD at 14:18 EDT , CT scan of the abdomen pelvis and there is no free air or free fluid. There is no evidence of obstruction or perforation. There is mild hepatomegaly and diffuse fatty infiltration of the liver. There is a moderate-sized hiatal hernia. This was interpreted by the radiologist and was also independently reviewed by myself. Treatment and Re-Evaluation :: Patient was given IV fluids. Patient was feeling somewhat better on reevaluation. Patient was advised of her findings. Because of her anemia and Hemoccult positive stools, patient was ordered a type and screen. Patient was advised of the need for hospitalization. Patient is agreeable with this. Case was discussed with the hospitalist. She will admit the patient to her service. Patient understood and was agreeable with the plan. All questions were answered. Discharge Plan Dx/Rx/DC Orders Clinical Impression: Gastrointestinal bleeding, upper, Morbid obesity, Anemia, Urinary tract infection, Leukocytosis Disposition Disposition: Acute Care Hospital [facility]
[2022-10-23] MEDS: Ondansetron 4 MG/2 ML Vial IV ×3 (13:38→18:46)
[2022-10-23] MEDS: 0.9% Normal Saline 1,000 ML 1000 ML IV (13:38)
[2022-10-23] MEDS: Morphine 4 MG/ML Syringe IV (13:38)
--- NOTE | 2022-10-23 13:42 | CT_ITS ---
STUDY: CT ABDOMEN AND PELVIS WITHOUT CONTRAST REASON FOR EXAM: Female, 51 years old. Abdominal pain RADIATION DOSAGE (If Supplied By Facility): CTDIvol = ( 24.18 ) mGy, DLP = ( 1401.50 ) mGycm TECHNIQUE: Transaxial images were obtained from the dome of the diaphragm to the symphysis pubis without oral contrast, and without intravenous contrast. Sagittal and coronal images were reconstructed. Individualized dose optimization techniques were used for this CT. COMPARISON: Comparison is made with prior study dated January 15, 2021. FINDINGS: The visualized lung bases are unremarkable. The visualized portions of the heart are within normal limits. There is decreased attenuation of the liver consistent with steatosis. Mild hepatomegaly. Normal gallbladder and extrahepatic biliary system. Normal spleen. Normal pancreas. Normal bilateral adrenal glands. Normal right kidney. Normal left kidney. Moderate-sized hiatal hernia. Normal small intestine. There are scattered colonic diverticula consistent with diverticulosis. The appendix is visualized and appears normal. Normal abdominal aorta. Normal inferior vena cava. Normal retroperitoneum. Normal urinary bladder. There is absence of the uterus consistent with a prior hysterectomy. Normal abdominal wall. There are mild degenerative changes of the visualized lumbar spine. CT/Abdomen/Pelvis without Cont IMPRESSION: Mild hepatomegaly and diffuse fatty infiltration of the liver. Moderate sized hiatal hernia. Electronically Signed: Yan Clement MD at 14:18 EDT ,
[2022-10-23 13:49] LABS: Absolute Lymphocyte Count 1.11 X10^3/uL (0.83-4.51); Absolute Neutrophil Count 15.8 X10^3/uL (2.0-7.7); Basophil# 0.07 X10^3/uL; Basophil% 0.4 % (0-1); Eosinophil# 0.07 X10^3/uL; Eosinophils% 0.4 % (0-5); Hematocrit 28.6 % (37-47); Lymphocyte # 1.11 X10^3/ul (0.83-4.51); Lymphocyte % 6.2 % (19-41); Mean Corpuscular Hgb 23.1 pg (27.0-32.0); Mean Corpuscular Volume 82.4 fL (81-99); Mean Platelet Vol. 9.3 fl (6.2-12.0); Monocyte# 0.74 X10^3/uL; Monocyte% 4.1 % (0-10); NRBC Flagged by Analyzer 0.2 % (0-5); Neutrophil # 15.76 X10^3/uL (2.7-7.7); Neutrophil % 88.2 % (47-70); POSITIVE MORPHOLOGY YES; Platelet Count 368 K/mm3 (150-450); RBC Distribution Width CV 25.2 % (11.6-14.6); RBC Distribution Width SD 72.1 fl (35.1-43.9); Red Blood Count 3.47 M/mm3 (4.2-5.4); White Blood Count 17.9 K/mm3 (4.4-11.0)
[2022-10-23 13:56] LABS: Differential Indicated SCAN CRITERIA MET
[2022-10-23 14:10] LABS: ALB/GLOB Ratio 0.5 RATIO (0.9-2.4); AST(SGOT) 24 U/L (15-37); Alanine Aminotransfer ALT/SGPT 18 U/L (13-56); Albumin, Serum 2.6 g/dL (3.2-5.0); Alkaline Phosphatase 73 U/L (45-117); Anion Gap 5 (5-15); BUN 17 mg/dL (7-18); BUN/Creat Ratio 14.9 RATIO (10-20); Calcium,Total 9.4 mg/dL (8.5-10.1); Chloride 96 mmol/L (98-107); Creatinine, Serum 1.14 mg/dL (0.55-1.02); EST Glomerular Filtration Rate 53 mL/min (>60); Est Glom Filt Rate - Afr Amer 64 mL/min (>60); Estimated Creatinine Clearance 54.65 ml/min; Glucose 144 mg/dL (74-106); Lipase 80 U/L (73-393); Potassium 3.4 mmol/L (3.5-5.1); Protein, Total 7.6 g/dL (6.4-8.2); Sodium Level 129 mmol/L (136-145)
[2022-10-23 14:33] LABS: Anisocytosis 2+; Differential Comment SCANNED; Macrocytosis 1+; Microcytosis 1+
[2022-10-23 16:01] LABS: Bacteria 0 SEEN /hpf (None Seen); Mucous, Urine 0 SEEN /hpf (<or=2+)
[2022-10-23 16:02] LABS: Glucose, Dipstick Normal (Normal); Ketone-Dipstick Negative (Negative); Leukocyte Esterase-Dipstick 500 /ul (Negative); Nitrite-Dipstick Negative (Negative); Occult Blood-Urine 25 /ul (Negative); Protein-Dipstick 15 mg/dl (Negative); Urine Bilirubin Dipstick Negative (Negative); Urine Urobilinogen Normal (Normal)
[2022-10-23 16:10] LABS: Color, Urine Yellow (Yellow); Squamous Epithelial Cells - UA 0-5 SEEN /hpf (5-10); Urine Clarity Sl Cloudy (Clear)
[2022-10-23 16:11] LABS: Red Blood Cells-Urine 0-5 SEEN /hpf (0-5); White Blood Cells 25-50 SEEN /hpf (0-5)
[2022-10-23] MEDS: Ceftriaxone 1 GM/50 ML BAG IV (16:45)
--- NOTE | 2022-10-23 16:47 | PCM.HP.STD ---
HPI - General General Date of Admission: 10/23/22 Date of Service: 10/23/22 Chief Complaint: N/V/D, dark appearing. HPI Narrative The patient is a 51 y/o F w/ PMHx: Chronic normocytic anemia, Obesity, SLE, Rheumatoid arthritis, KIKI, GERD, Hx VTE (DVT, PE) w/ MTHFR mutation, Anxiety and Depression, Chronic sinus tachycardia who presents to the [facility] ED on 10/23/22 with history of persistent nausea, emesis as well as diarrhea starting the day prior reporting that her emesis was dark in appearance and her stools have also been dark with no specific associated abdominal pain nor any recent urinary complaints but she does report a fever up to 101.2 at home with some mild back discomfort although she has been having persistent emesis prompting ED evaluation. She reports abdominal discomfort as cramping and aching rating it 8 out of 10 in severity now currently 5-6 out of 10 in severity following ED pain regimen. Work-up in the ED included T98.3, heart rate 96, BP 124/72, respiratory rate 18, 98% on room air, CBC with WBC 17.9, hemoglobin 8, MCV 82.4, platelet 368 with left shift, CMP with sodium 129, potassium 3.4, chloride 96, BUN/Cr 17/1.14, glucose 144, hepatic profile not marked appearing, lipase 80, urinalysis with specific gravity 1.010, protein 15, occult blood 25, negative nitrite, leukocyte Estrace 500 with 25-50 urine WBCs but no urine bacteria, type and screen pending per ED, blood culture x2 pending per ED, urine culture pending per ED, positive occult blood, CT abdomen and pelvis with mild hepatomegaly and diffuse fatty infiltration of the liver with a moderate size hiatal hernia. In the ED patient ministered Zofran 4 mg IV x2, morphine 4 mg IV x1, Rocephin 1 g IV x1 as well as a 1 L normal saline bolus. ED discussed case with gastroenterology who was amenable to evaluation for GI bleed. 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 Lupus anticoagulant disorder Morbid obesity MTHFR mutation KIKI (obstructive sleep apnea) Pleural effusion, left Pulmonary embolism Rheumatoid arthritis Sinus tachycardia Home Medications bupropion HCl 300 mg 24 hr tablet, extended release 300 mg PO DAILY mental health 08/25/18 [History Last Taken 09/20/22] ropinirole 2 mg tablet,extended release 24 hr 2 mg PO QHS restless legs 08/25/18 [History Last Taken 09/20/22] gabapentin 300 mg capsule 300 cap BID back pain 02/25/22 [History Last Taken 09/20/22] buprenorphine 5 mcg/hour weekly transdermal patch 1 patch transdermal QWEEK pain 06/01/22 [History Last Taken 2 Weeks Ago ~09/07/22] rivaroxaban 20 mg tablet (Xarelto) 20 mg PO DAILY blood thinner 06/01/22 [History Last Taken 09/20/22] pantoprazole 40 mg tablet,delayed release 40 mg PO BID stomach 06/02/22 [History Last Taken 09/20/22] Probiotic 1 ea PO/SL DAILY IMMUNE HEALTH 09/21/22 [History Last Taken 09/20/22] amitriptyline 10 mg tablet 10 mg PO QHS SLEEP 09/21/22 [History Last Taken 09/20/22] atenolol 50 mg tablet 50 mg PO DAILY HEART 09/21/22 [History Last Taken 09/20/22] biotin 1 ea PO/SL DAILY SUPPLEMENT 09/21/22 [History Last Taken 09/20/22] brexpiprazole 1 mg tablet (Rexulti) 1 mg PO DAILY MENTAL HEALTH 09/21/22 [History Last Taken 09/20/22] buspirone 10 mg tablet 10 mg PO DAILY ANXIETY 09/21/22 [History Last Taken 09/20/22] buspirone 10 mg tablet 20 mg PO QHS ANXIETY 09/21/22 [History Last Taken 09/20/22] ferrous sulfate 325 mg (65 mg iron) tablet 325 mg PO DAILY SUPPLEMENT 09/21/22 [History Last Taken 09/20/22] fluvoxamine 100 mg tablet 100 mg PO DAILY MENTAL HEALTH 09/21/22 [History Last Taken 09/20/22] ondansetron 4 mg disintegrating tablet 4 mg PO Q8H PRN PRN Nausea #10 tabs 09/21/22 [Rx Last Taken Unknown] prednisone 5 mg tablet 10 mg PO DAILY RA 09/21/22 [History Last Taken 09/20/22] Allergy/AdvReac Type Severity Reaction Status Date / Time adhesive tape AdvReac Rash Verified 10/23/22 12:52 Family History Mother Cancer Lung CA w/ concurrent tobacco use. Heart disease other (Patient does not know her paternal family history.) Surgical History History of fasciotomy History of hysterectomy History of total bilateral knee replacement S/P pericardial window creation Social History household members: family Smoking Status: Never smoker alcohol intake: never substance use type: does not use ROS ROS Narrative Admission Review of Systems: CONSTITUTIONAL: No weight loss, + fever, chills, weakness or fatigue. HEENT: Eyes: No visual loss, blurred vision, double vision or yellow sclerae. Ears, Nose, Throat: No hearing loss, sneezing, congestion, runny nose or sore throat. SKIN: No rash or itching, lesions, wounds. CARDIOVASCULAR: No chest pain, chest pressure or chest discomfort, palpitations, edema, orthopnea, syncopal events. RESPIRATORY: No shortness of breath, cough or sputum, wheezing, hemoptysis. GASTROINTESTINAL: + anorexia, nausea, vomiting, diarrhea, abdominal pain, dark appearing emesis and dark appearing stools questionably melanotic. GENITOURINARY: No dysuria, frequency, urgency or retention. NEUROLOGICAL: + Chronic neuropathy, No headache, dizziness, syncope, paralysis, ataxia, focal weakness, change in bowel or bladder control, seizure. MUSCULOSKELETAL: + muscle, back pain, joint pain or stiffness. HEMATOLOGIC: + anemia, bleeding or bruising. LYMPHATICS: No enlarged nodes. No history of splenectomy. PSYCHIATRIC: + history of depression or anxiety. ENDOCRINOLOGIC: No reports of sweating, cold or heat intolerance. No polyuria or polydipsia. ALLERGIES: No history of asthma, hives, eczema or rhinitis. Vital Signs Vital Signs Vital Signs: 10/23/22 12:52 10/23/22 12:53 10/23/22 14:38 Temperature 96.9 F L 97.5 F L 97.5 F L Temperature Source Temporal Temporal Oral Pulse Rate 119 H 104 H 75 Respiratory Rate 24 H 18 22 H Blood Pressure 116/66 101/52 L 115/47 L Blood Pressure Mean 82 68 69 Pulse Ox 97 92 96 Oxygen Delivery Method Room Air Room Air Room Air 10/23/22 15:00 10/23/22 16:00 Temperature 98.2 F 98.3 F Temperature Source Oral Oral Pulse Rate 98 96 Respiratory Rate 16 18 Blood Pressure 132/74 H 124/72 H Blood Pressure Mean 93 89 Pulse Ox 97 98 Oxygen Delivery Method Room Air Room Air Weight Weight: 241 lb 6.499 oz Body Mass Index (BMI) 38.9 Physical Exam Narrative Physical Examination: General: Awake, alert, oriented x 3 and cooperative, seated upright in the ED bed, reports ongoing 5-6 out of 10 in severity pain to the abdomen ongoing. Skin: Normal color, normal turgor, no icterus, no cyanosis except for noted mild bilateral lower extremity stasis, worse left given history of prior remote fasciotomy with scarring. HEENT: AT/NC, EOMI, PERRLA, dry MM, no carotid bruits or JVD noted; however thickened neck makes evaluation difficult. Lungs: Diminished, greater bases, distant given habitus likely, no rales, ronchi or wheezing. Heart: Mildly tachycardic with regular rhythm; no gallop, rub audible. Abdomen: Soft, although reporting pain no obvious rebound or guarding, mild generalized discomfort, difficult to assess distention given habitus, hyperactive bowel sounds, unable to discern HSM given habitus. Extremities: No cyanosis, no clubbing, bilateral pedal to mid foy edema, suspect chronic. Neurological: Patient awake, alert, oriented as noted, cognitive function intact; pupils equally reactive to light and accommodation, cranial nerves II-XII grossly normal, moving all 4 extremities, no focal deficits, strength moderately global decrease secondary to acute presentation and complaints Psychiatric: Affect appears fatigued, no acute evidence of depressive or anxiety feelings. Results Lab / Micro Data Result Diagrams: 10/23/22 13:42 10/23/22 13:42 Labs: Laboratory Results - last 24 hr 10/23/22 13:42: WBC 17.9 H, RBC 3.47 L, Hgb 8.0 L, Hct 28.6 L, MCV 82.4, MCH 23.1 L, MCHC 28.0 L, RDW Std Deviation 72.1 H, RDW Coeff of Chepe 25.2 H, Plt Count 368, MPV 9.3, Immature Gran % (Auto) 0.700, Neut % (Auto) 88.2 H, Lymph % (Auto) 6.2 L, Nicholas % (Auto) 4.1, Eos % (Auto) 0.4, Baso % (Auto) 0.4, Absolute Neuts (auto) 15.8 H, Absolute Lymphs (auto) 1.11, Nucleated RBC % 0.2, Differential Comment SCANNED, Anisocytosis 2+, Microcytosis 1+, Macrocytosis 1+ 10/23/22 13:42: Sodium 129 L, Potassium 3.4 L, Chloride 96 L, Carbon Dioxide 28.0, Anion Gap 5, BUN 17, Creatinine 1.14 H, Estim Creat Clear Calc 54.65, Est GFR (MDRD) Af Amer 64, Est GFR (MDRD) Non-Af 53 L, BUN/Creatinine Ratio 14.9, Glucose 144 H, Calcium 9.4, Total Bilirubin 0.70, AST 24, ALT 18, Alkaline Phosphatase 73, Total Protein 7.6, Albumin 2.6 L, Globulin 5.0 H, Albumin/Globulin Ratio 0.5 L, Lipase 80 10/23/22 15:20: Urine Color Yellow, Urine Clarity Sl Cloudy, Urine pH 6.0, Ur Specific [place] 1.010, Urine Protein 15 H, Urine Glucose (UA) Normal, Urine Ketones Negative, Urine Occult Blood 25 H, Urine Nitrite Negative, Urine Bilirubin Negative, Urine Urobilinogen Normal, Ur Leukocyte Esterase 500 H, Urine RBC 0-5 SEEN, Urine WBC 25-50 SEEN, Ur Squamous Epith Cells 0-5 SEEN, Urine Bacteria 0 SEEN, Urine Mucus 0 SEEN Micro: Microbiology 10/23/22 15:00 Stool Stool Occult Blood (BIANKA) - Final Occult Blood Positive Radiology Impression Abdomen/Pelvis CT 10/23/22 13:42 IMPRESSION: Mild hepatomegaly and diffuse fatty infiltration of the liver. Moderate sized hiatal hernia. Electronically Signed: Yan Clement MD at 14:18 EDT , Assessment & Plan Assessment/Plan (1) Gastrointestinal bleeding, upper: PLAN: Plan The patient is a 51 y/o F w/ PMHx: Chronic normocytic anemia, Obesity, SLE, Rheumatoid arthritis, KIKI, GERD, Hx VTE (DVT, PE) w/ MTHFR mutation, Anxiety and Depression, Chronic sinus tachycardia who presents to the [facility] ED on 10/23/22 with history of persistent nausea, emesis as well as diarrhea starting the day prior reporting that her emesis was dark in appearance and her stools have also been dark with no specific associated abdominal pain nor any recent urinary complaints but she does report a fever up to 101.2 at home with some mild back discomfort although she has been having persistent emesis prompting ED evaluation. #1. Acute GI Bleed with Chronic normocytic anemia/Fe deficiency anemia with potentially underlying Acute Gastroenteritis/Intra-abdominal infection: Currently admission hemoglobin 8 with prior baseline 7-8?stable currently, will admit to PCU to be cautious, will maintain on IVFs, will hold patient home Xarelto and trend H&H's and given stable VS will hold on immediate reversal but if drops Hgb further low threshold, type and screen already performed per ED physician, will maintain on IV PPI, gastroenterology consulted, pending. COVID PCR, enteric pathogen as well as cdiff requested given reported fevers also as lower suspicion #2. #2. Questionable Acute Urinary Tract Infection: UA upon ED mildly remarkable, no marked symptoms thus some concern that her elevated white counts is potentially from dehydration and her intra-abdominal presentation as noted #1, to be cautious however as the patient is not the best historian will continue IVFs, monitor I/Os, continue IV Rocephin w/ transition as able pending sensitivities and speciation or de-escalation if urine culture is unremarkable. #3. Acute hyponatremia, suspected secondary to acute presentation as noted with GI losses: Admission sodium 129, continue judicious hydration, repeat CMP in AM. #4. Hypokalemia: Admission K+ 3.4, magnesium level requested, supplementation given, repeat level in AM. #5. Rheumatoid arthritis, SLE: Patient is on chronic low-dose steroids which she took today, we will temporarily hold given GI bleed concerns, resume immediately as able or if necessary and concerns arise may pulse dose. #6. Chronic pain syndrome: We will continue patient home chronic buprenorphine patch with as needed agents for her acute pain as noted. #7. Anxiety and depression: Patient on significant psychiatric regimen, will continue fluoxetine, buspirone, bupropion, amitriptyline and brexpiprazole home regimen. #8. Hypertension: Continue home regimen including atenolol, PRN hydralazine. #9. Chronic tachycardia: We will continue patient home atenolol regimen. #10. Obesity: Weight loss and lifestyle changes encouraged. #11. GERD: We will maintain on IV PPI. #12. KIKI: Given presentation with nausea and emesis we will hold off on using PAP therapy to be safe. #13. Restless leg syndrome: We will continue patient home Requip regimen. #14. DVT Prophylaxis: SCDs. #15. 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 Full Code status. Admission Evaluation Time spent evaluating chart, patient history, patient evaluation, care planning and discussion with specialists: 76 minutes. Charges/Coding Visit Charges Inpatient E&M: 10636 Init Hosp L3
--- NOTE | 2022-10-23 17:02 | NURSING ---
PCU WHITE UPPER GASTROINTESTINAL BLEEDING, ANEMIA, LEUKOCYTOSIS
[2022-10-23 17:28] LABS: Magnesium 1.6 mg/dL (1.6-2.6)
--- NOTE | 2022-10-23 18:29 | CON.PCM.GI_ITS ---
HPI Consult Data Date of Consult: 10/23/22 HPI Narrative Reason for Consultation: GI bleed HPI Narrative: RICCARDO VICKERS, is a 51 F who presents with nausea, vomiting, and diarrhea that began yesterday.? Patient states today she had an episode of vomiting where she vomited up dark emesis.? Patient states she has had diarrhea since yesterday as well.? Patient states her stools have been dark.? Patient denies any abdominal pain.? Patient denies any urinary complaints.? Patient states she was having a fever up to 101.2 at home.? Patient does admit to some mild back pain. She notes a history of pulmonary embolism, compartment syndrome, and rheumatoid arthritis.? She was recently transition from warfarin to Xarelto about 5 months ago.? Patient takes Xarelto for lupus anticoagulant disorder and MHTFR gene mutation, her INR is pending.?She feels as though she is having more problems with bleeding.? She will have different areas that bruise and bleed more easily and cuts bleed longer than they did than when she was on Coumadin. I was consulted for GI bleed. 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 Lupus anticoagulant disorder Morbid obesity MTHFR mutation KIKI (obstructive sleep apnea) Pleural effusion, left Pulmonary embolism Rheumatoid arthritis Sinus tachycardia Home Medications bupropion HCl 300 mg 24 hr tablet, extended release 300 mg PO DAILY mental health 08/25/18 [History Last Taken 09/20/22] ropinirole 2 mg tablet,extended release 24 hr 2 mg PO QHS restless legs 08/25/18 [History Last Taken 09/20/22] gabapentin 300 mg capsule 300 cap BID back pain 02/25/22 [History Last Taken 09/20/22] buprenorphine 5 mcg/hour weekly transdermal patch 1 patch transdermal QWEEK pain 06/01/22 [History Last Taken 2 Weeks Ago ~09/07/22] rivaroxaban 20 mg tablet (Xarelto) 20 mg PO DAILY blood thinner 06/01/22 [History Last Taken 09/20/22] pantoprazole 40 mg tablet,delayed release 40 mg PO BID stomach 06/02/22 [History Last Taken 09/20/22] Probiotic 1 ea PO/SL DAILY IMMUNE HEALTH 09/21/22 [History Last Taken 09/20/22] amitriptyline 10 mg tablet 10 mg PO QHS SLEEP 09/21/22 [History Last Taken 09/20/22] atenolol 50 mg tablet 50 mg PO DAILY HEART 09/21/22 [History Last Taken 09/20/22] biotin 1 ea PO/SL DAILY SUPPLEMENT 09/21/22 [History Last Taken 09/20/22] brexpiprazole 1 mg tablet (Rexulti) 1 mg PO DAILY MENTAL HEALTH 09/21/22 [History Last Taken 09/20/22] buspirone 10 mg tablet 10 mg PO DAILY ANXIETY 09/21/22 [History Last Taken 09/20/22] buspirone 10 mg tablet 20 mg PO QHS ANXIETY 09/21/22 [History Last Taken 09/20/22] ferrous sulfate 325 mg (65 mg iron) tablet 325 mg PO DAILY SUPPLEMENT 09/21/22 [History Last Taken 09/20/22] fluvoxamine 100 mg tablet 100 mg PO DAILY MENTAL HEALTH 09/21/22 [History Last Taken 09/20/22] ondansetron 4 mg disintegrating tablet 4 mg PO Q8H PRN PRN Nausea #10 tabs 09/21/22 [Rx Last Taken Unknown] prednisone 5 mg tablet 10 mg PO DAILY RA 09/21/22 [History Last Taken 09/20/22] Allergy/AdvReac Type Severity Reaction Status Date / Time adhesive tape AdvReac Rash Verified 10/23/22 12:52 Family History Mother Cancer Lung CA w/ concurrent tobacco use. Heart disease Surgical History History of fasciotomy History of hysterectomy History of total bilateral knee replacement S/P pericardial window creation Social History household members: family Smoking Status: Never smoker alcohol intake: never substance use type: does not use ROS ROS Narrative Admission Review of Systems: CONSTITUTIONAL: No weight loss, + fever, chills, weakness or fatigue. HEENT: Eyes: No visual loss, blurred vision, double vision or yellow sclerae. Ears, Nose, Throat: No hearing loss, sneezing, congestion, runny nose or sore throat. SKIN: No rash or itching, lesions, wounds. CARDIOVASCULAR: No chest pain, chest pressure or chest discomfort, palpitations, edema, orthopnea, syncopal events. RESPIRATORY: No shortness of breath, cough or sputum, wheezing, hemoptysis. GASTROINTESTINAL: + anorexia, nausea, vomiting, diarrhea, abdominal pain, dark appearing emesis and dark appearing stools questionably melanotic. GENITOURINARY: No dysuria, frequency, urgency or retention. NEUROLOGICAL: + Chronic neuropathy, No headache, dizziness, syncope, paralysis, ataxia, focal weakness, change in bowel or bladder control, seizure. MUSCULOSKELETAL: + muscle, back pain, joint pain or stiffness. HEMATOLOGIC: + anemia, bleeding or bruising. LYMPHATICS: No enlarged nodes. No history of splenectomy. PSYCHIATRIC: + history of depression or anxiety. ENDOCRINOLOGIC: No reports of sweating, cold or heat intolerance. No polyuria or polydipsia. ALLERGIES: No history of asthma, hives, eczema or rhinitis. Physical Exam Narrative Physical Examination: General: Awake, alert, oriented x 3 and cooperative, seated upright in the ED bed, reports ongoing 5-6 out of 10 in severity pain to the abdomen ongoing. Skin: Normal color, normal turgor, no icterus, no cyanosis except for noted mild bilateral lower extremity stasis, worse left given history of prior remote fasciotomy with scarring. HEENT: AT/NC, EOMI, PERRLA, dry MM, no carotid bruits or JVD noted; however thickened neck makes evaluation difficult. Lungs: Diminished, greater bases, distant given habitus likely, no rales, ronchi or wheezing. Heart: Mildly tachycardic with regular rhythm; no gallop, rub audible. Abdomen: Soft, although reporting pain no obvious rebound or guarding, mild generalized discomfort, difficult to assess distention given habitus, hyperactive bowel sounds, unable to discern HSM given habitus. Extremities: No cyanosis, no clubbing, bilateral pedal to mid foy edema, suspect chronic. Neurological: Patient awake, alert, oriented as noted, cognitive function intact; pupils equally reactive to light and accommodation, cranial nerves II- XII grossly normal, moving all 4 extremities, no focal deficits, strength moderately global decrease secondary to acute presentation and complaints Psychiatric: Affect appears fatigued, no acute evidence of depressive or anxiety feelings. Lab / Micro Data Result Diagrams: 10/23/22 13:42 10/23/22 13:42 Labs: Laboratory Results - last 24 hr 10/23/22 13:42: WBC 17.9 H, RBC 3.47 L, Hgb 8.0 L, Hct 28.6 L, MCV 82.4, MCH 23.1 L, MCHC 28.0 L, RDW Std Deviation 72.1 H, RDW Coeff of Chepe 25.2 H, Plt Count 368, MPV 9.3, Immature Gran % (Auto) 0.700, Neut % (Auto) 88.2 H, Lymph % (Auto) 6.2 L, [place] % (Auto) 4.1, Eos % (Auto) 0.4, Baso % (Auto) 0.4, Absolute Neuts (auto) 15.8 H, Absolute Lymphs (auto) 1.11, Nucleated RBC % 0.2, Differential Comment SCANNED, Anisocytosis 2+, Microcytosis 1+, Macrocytosis 1+ 10/23/22 13:42: Sodium 129 L, Potassium 3.4 L, Chloride 96 L, Carbon Dioxide 28.0, Anion Gap 5, BUN 17, Creatinine 1.14 H, Estim Creat Clear Calc 54.65, Est GFR (MDRD) Af Amer 64, Est GFR (MDRD) Non-Af 53 L, BUN/Creatinine Ratio 14.9, Gl ucose 144 H, Calcium 9.4, Total Bilirubin 0.70, AST 24, ALT 18, Alkaline Phosphatase 73, Total Protein 7.6, Albumin 2.6 L, Globulin 5.0 H, Albumin/Globulin Ratio 0.5 L, Lipase 80 10/23/22 13:42: Magnesium 1.6 10/23/22 15:20: Urine Color Yellow, Urine Clarity Sl Cloudy, Urine pH 6.0, Ur Specific [place] 1.010, Urine Protein 15 H, Urine Glucose (UA) Normal, Urine Ketones Negative, Urine Occult Blood 25 H, Urine Nitrite Negative, Urine Bilirubin Negative, Urine Urobilinogen Normal, Ur Leukocyte Esterase 500 H, Urine RBC 0-5 SEEN, Urine WBC 25-50 SEEN, Ur Squamous Epith Cells 0-5 SEEN, Urine Bacteria 0 SEEN, Urine Mucus 0 SEEN Micro: Microbiology 10/23/22 15:00 Stool Stool Occult Blood (BIANKA) - Final Occult Blood Positive Radiology Impression Abdomen/Pelvis CT 10/23/22 13:42 IMPRESSION: Mild hepatomegaly and diffuse fatty infiltration of the liver. Moderate sized hiatal hernia. Electronically Signed: Yan Clement MD at 14:18 EDT , Assessment & Plan Assessment/Plan (1) Gastrointestinal bleeding, upper: (2) Anemia: (3) Anemia: PLAN: In a patient whose has hypoalbuminemia, respiratory failure, chronic prednisone therapy, chronic inflammation and chronic hypoxia she is at risk for angiodysplasia, telangiectasias, ulcerative disease throughout her GI tract. She should undergo an upper endoscopy. Hold anticoagulation tonight. Her hemoglobin continues to be low. Continue to monitor hemoglobin. She is sche duled to get a gastric bypass this upcoming year. If her upper endoscopy does not show anything she will need to have a colonoscopy. N.p.o. past midnight. Charges/Coding Visit Charges Inpatient E&M: 42577 Init Hosp L2
[2022-10-23 19:15] LABS: Hematocrit 27.4 % (37-47); Hemoglobin 7.6 g/dL (12.0-15.0)
[2022-10-23] MEDS: 0.9% Normal Saline 1,000 ML 125 ML IV (21:49)
[2022-10-23] MEDS: Potassium Chloride 10mEq/100mL 10 MEQ/100 ML IV.SOLN. 100 MEQ IV BOLUS ×2 (21:49→23:17)
[2022-10-23] MEDS: busPIRone 5 MG Tablet 20 MG PO (21:54)
[2022-10-23] MEDS: Pramipexole Di-HCl 1 MG Tablet PO (21:55)
[2022-10-23] MEDS: 0.9% Saline Lock 10 ML Syringe IV (21:56)
[2022-10-23] MEDS: proCHLORPERazine 10 MG/2 ML Vial 5 MG IV (21:56)
[2022-10-23] MEDS: QUEtiapine 25 MG Tablet PO (22:31)
[2022-10-23 23:10] LABS: Hematocrit 28.9 % (37-47); Hemoglobin 7.9 g/dL (12.0-15.0)
[2022-10-23] MEDS: Acetaminophen 325 MG Tablet 650 MG PO (23:16)
[2022-10-24] VITALS (17 sets, daily range): BP systolic 96–123; BP diastolic 38–79; PULSE 86–107; RESP 16–94; TEMP 35.9–37.2; O2SAT 88–100; BMI 55.8
--- NOTE | 2022-10-24 | GASB_PTH ---
PATIENT: RICCARDO VICKERS LOC: [facility] U#:[id number] AGE/SX: 51/F ROOM: [facility] RE10/23/[address]: Dr. Kendal Cameron MD : 1970 BED: 1 DIS: 10/26/2022 SPEC #: [id number] RECD: 10/24/22 12:37 STATUS: JASON REGio #: [id number] ODALYS: 10/24/22 00:[address]: Michael Mcgill DEPT: SURGICAL PATHOLOGY RECD BY: Teddy Kang ENTERED: 10/24/22 12:37 SP TYPE: Gastric Bx OTHR DR: MD Dr. Tarah Marques DO Dr. Nana Yaa Koram, MD Tissues: Gastric mucous membrane Procedures: Surgery Specimen Level IV Comments: @ Ordering doctor for SUIV edited from to @ by MARIELA at 10/24/22 1311 @ Submitting doctor edited from to @ by MARIELA at 10/24/22 1311 HEADER OPERATION: EGD ([facility] [place] biopsy PRE-OP DIAGNOSIS: Upper GI bleeding, anemia TISSUE SUBMITTED: Gastric ulcer biopsy MICROSCOPIC DIAGNOSIS Gastric ulcer, biopsy: Fragments of gastric mucosa with superficial erosion, acute and chronic inflammation. MARTHA:charley 10/25/2022 COMMENT The results of immunohistochemistry for Helicobacter pylori will be reported separately ([id number]). MICROSCOPIC DESCRIPTION Slides are reviewed. GROSS DESCRIPTION Received in fixative is one container labeled with the patient's name and designated gastric ulcer. The specimen consists of two irregular fragments of light quezada soft tissue that in aggregate measure 0.6 x 0.6 x 0.1 cm. The specimen is totally submitted in one cassette. / AM:charley 10/24/2022 TC:2 CPT: 78631
[2022-10-24] MEDS: Potassium Chloride 10mEq/100mL 10 MEQ/100 ML IV.SOLN. 100 MEQ IV BOLUS ×2 (01:26→02:28)
[2022-10-24 03:37] LABS: Absolute Lymphocyte Count 1.43 X10^3/uL (0.83-4.51); Absolute Neutrophil Count 9.8 X10^3/uL (2.0-7.7); Basophil# 0.04 X10^3/uL; Basophil% 0.3 % (0-1); Eosinophil# 0.04 X10^3/uL; Eosinophils% 0.3 % (0-5); Hematocrit 25.8 % (37-47); Hemoglobin 6.9 g/dL (12.0-15.0); Lymphocyte # 1.43 X10^3/ul (0.83-4.51); Mean Corp Hgb Conc 26.7 g/dL (32-36); Mean Corpuscular Hgb 22.8 pg (27.0-32.0); Mean Corpuscular Volume 85.4 fL (81-99); Mean Platelet Vol. 9.6 fl (6.2-12.0); Monocyte# 0.54 X10^3/uL; Monocyte% 4.5 % (0-10); NRBC Flagged by Analyzer 0 % (0-5); Neutrophil # 9.83 X10^3/uL (2.7-7.7); Neutrophil % 82.2 % (47-70); POSITIVE MORPHOLOGY YES; Platelet Count 320 K/mm3 (150-450); RBC Distribution Width CV 25.2 % (11.6-14.6); RBC Distribution Width SD 75.6 fl (35.1-43.9); Red Blood Count 3.02 M/mm3 (4.2-5.4)
[2022-10-24 03:41] LABS: Differential Indicated SCAN CRITERIA MET
[2022-10-24 04:10] LABS: Hypochromasia 1+
[2022-10-24 04:17] LABS: ALB/GLOB Ratio 0.5 RATIO (0.9-2.4); AST(SGOT) 19 U/L (15-37); Alanine Aminotransfer ALT/SGPT 16 U/L (13-56); Albumin, Serum 2.2 g/dL (3.2-5.0); Alkaline Phosphatase 67 U/L (45-117); Anion Gap 5 (5-15); BUN 14 mg/dL (7-18); BUN/Creat Ratio 15.7 RATIO (10-20); Calcium,Total 9.1 mg/dL (8.5-10.1); Chloride 104 mmol/L (98-107); Creatinine, Serum 0.89 mg/dL (0.55-1.02); EST Glomerular Filtration Rate 71 mL/min (>60); Est Glom Filt Rate - Afr Amer 86 mL/min (>60); Estimated Creatinine Clearance 70.01 ml/min; Globulin 4.2 g/dL (2.2-4.2); Glucose 101 mg/dL (74-106); Potassium 3.8 mmol/L (3.5-5.1); Protein, Total 6.4 g/dL (6.4-8.2); Sodium Level 136 mmol/L (136-145)
[2022-10-24] MEDS: 0.9% Normal Saline 1,000 ML 125 ML IV (05:12)
[2022-10-24] MEDS: Acetaminophen 325 MG Tablet 650 MG PO ×3 (05:28→22:00)
[2022-10-24] MEDS: oxyCODONE 5 MG Tablet PO (05:28)
[2022-10-24 06:42] LABS: Hemoglobin 6.9 g/dL (12.0-15.0)
[2022-10-24] MEDS: buPROPion (XL) 300 MG TABLET.XL PO (08:13)
[2022-10-24] MEDS: busPIRone 5 MG Tablet 10 MG PO (08:13)
[2022-10-24] MEDS: Atenolol 50 MG Tablet PO (08:13)
[2022-10-24] MEDS: Ferrous Sulfate 325 MG Tablet PO (08:13)
[2022-10-24] MEDS: fluvoxaMINE Maleate 50 MG Tablet 100 MG PO (08:14)
[2022-10-24] MEDS: 0.9% Saline Lock 10 ML Syringe IV ×2 (09:00→17:52)
[2022-10-24] MEDS: 0.9% Normal Saline 1,000 ML 15 ML IV (10:30)
--- NOTE | 2022-10-24 11:00 | IMM_PTH ---
PATIENT: RICCARDO VICKERS LOC: [facility] U#:[id number] AGE/SX: 51/F ROOM: [facility] RE10/23/[address]: Dr. Kendal Cameron MD : 1970 BED: 1 DIS: 10/26/2022 SPEC #: [id number] RECD: 10/24/22 13:57 STATUS: JASON REQ #: [id number] ODALYS: 10/24/22 11:[address]: Michael Mcgill DEPT: IMMUNOHISTOCHEMISTRY RECD BY: Meghana Carrillo ENTERED: 10/24/22 13:58 SP TYPE: IMMUNO OTHR DR: MD Dr. Tarah Marques DO Dr. Nana Yaa Koram, MD Tissues: Stomach, NOS Procedures: H Pylori (initial) PHYSICIAN & INSTITUTION [place] [address] SPECIMEN INFORMATION: Tissue Source: Gastric ulcer biopsy Clinical Info: Upper GI bleeding, anemia Specimen Number: [id number] CPT code: 47489 METHODOLOGY: Deparaffinized sections of prefer/formalin-fixed tissue or PAP/DQ stained slides are incubated with monoclonal/polyclonal antibodies/oligonucleotide probes. Localization is made via biotin free immunoperoxidase method. Appropriate controls are performed and reacted as expected. Results on target cell population are indicated in the following table: RESULTS: ANTIBODY / CLONE RESULT H Pylori (polyclonal) negative These tests were developed and their performance characteristics determined by [facility]. They may not have been cleared or approved by the U.S. Food and Drug Administration. The FDA has determined that such clearance or approval is not necessary. The above immunohistochemical/dualISH markers are ordered and reviewed by the Pathologist. INTERPRETATION: Gastric ulcer, biopsy: Negative for Helicobacter pylori organisms. SJ:charley 10/25/2022
--- NOTE | 2022-10-24 11:31 | OP.EGD_ITS ---
Patient Name: Neris Ordoñez Procedure Date: 10/24/2022 11:05 AM Date of : 1970 Age: 51 Procedure: Upper GI endoscopy Indications: Iron deficiency anemia, Hematemesis Providers: Michael Mcgill DO Medicines: Monitored Anesthesia Care Patient Profile: This is a 51 year old female. Refer to note in patient chart for documentation of history and physical. Patient has symptoms of acute epigastric abdominal pain and acute vomiting. Complications: No immediate complications. Procedure: Pre-Anesthesia Assessment: - Prior to the procedure, a History and Physical was performed, and patient medications and allergies were reviewed. The risks and benefits of the procedure and the sedation options and risks were discussed with the patient. All questions were answered and informed consent was obtained. Patient identification and proposed procedure were verified by the physician. Mental Status Examination: normal. Prophylactic Antibiotics: The patient does not require prophylactic antibiotics. Prior Anticoagulants: The patient has taken no previous anticoagulant or antiplatelet agents. ASA Grade Assessment: III - A patient with severe systemic disease. After reviewing the risks and benefits, the patient was deemed in satisfactory condition to undergo the procedure. The anesthesia plan was to use monitored anesthesia care (MAC). Immediately prior to administration of medications, the patient was re-assessed for adequacy to receive sedatives. The heart rate, respiratory rate, oxygen saturations, blood pressure, adequacy of pulmonary ventilation, and response to care were monitored throughout the procedure. The physical status of the patient was re-assessed after the procedure. After obtaining informed consent, the endoscope was passed under direct vision. Throughout the procedure, the patient's blood pressure, pulse, and oxygen saturations were monitored continuously. The gastroscope was introduced through the mouth, and advanced to the second part of duodenum. The upper GI endoscopy was accomplished without difficulty. The patient tolerated the procedure well. Scope In: 11:18:13 AM Scope Out: 11:21:42 AM Total Procedure Duration Time 0 hours 3 minutes 29 seconds Findings: Small (< 5 mm) varices were found in the lower third of the esophagus. They were 5 mm in largest diameter. The Z-line was irregular and was found 40 cm from the incisors. A large hiatal hernia was present. Four oozing cratered gastric ulcers with adherent clot were found in the cardia and in the gastric antrum. The largest lesion was 6 mm in largest dimension. Area was successfully injected with 5 mL of a 1:10,000 solution of epinephrine for drug delivery. Coagulation for hemostasis using heater probe was successful. Mild portal hypertensive gastropathy was found in the gastric body. Three non-bleeding linear gastric ulcers with no stigmata of bleeding were found in the gastric fundus. The largest lesion was 6 mm in largest dimension. Biopsies were taken with a cold forceps for histology. Verification of patient identification for the specimen was done. Estimated blood loss was minimal. The first portion of the duodenum was normal. Impression: - Small (< 5 mm) esophageal varices. - Z-line irregular, 40 cm from the incisors. This was not biopsied because of the adjacent small varices that was seen in the distal esophagus. - Large hiatal hernia. - Oozing gastric ulcers with adherent clot. Injected. Treated with a heater probe. - Portal hypertensive gastropathy. - Non-bleeding gastric ulcers with no stigmata of bleeding. Biopsied. - Normal first portion of the duodenum. Recommendation: - [facility] care. - Clear liquid diet. - Continue present medications. -Protonix 40 mg p.o. twice daily and Carafate 1 g p.o. 3 times daily - Await pathology results. - Repeat upper endoscopy in 3 months for surveillance. Procedure Code(s): --- Professional --- 71137, 59, Esophagogastroduodenoscopy, flexible, transoral; with control of bleeding, any method 80380, 59, Esophagogastroduodenoscopy, flexible, transoral; with directed submucosal injection(s), any substance 50485, 51, Esophagogastroduodenoscopy, flexible, transoral; with biopsy, single or multiple CPT copyright 2017 [employer]. All rights reserved. The codes documented in this report are preliminary and upon center punch operator review may be revised to meet current compliance requirements. Michael Mcgill DO 10/24/2022 11:30:33 AM This report has been signed electronically. Number of Addenda: 0 Note Initiated On: 10/24/2022 11:05 AM
--- NOTE | 2022-10-24 11:31 | OP.CCLET_ITS ---
10/24/2022 Tarah Parker Do Re : Upper GI endoscopy procedure for Neris Strongr Keith This procedure was performed on Monday, October 24, 2022. My impressions and recommendations are as follows: Impressions : - Small (< 5 mm) esophageal varices. - Z-line irregular, 40 cm from the incisors. This was not biopsied because of the adjacent small varices that was seen in the distal esophagus. - Large hiatal hernia. - Oozing gastric ulcers with adherent clot. Injected. Treated with a heater probe. - Portal hypertensive gastropathy. - Non-bleeding gastric ulcers with no stigmata of bleeding. Biopsied. - Normal first portion of the duodenum. Recommendations : - [facility] care. - Clear liquid diet. - Continue present medications. -Protonix 40 mg p.o. twice daily and Carafate 1 g p.o. 3 times daily - Await pathology results. - Repeat upper endoscopy in 3 months for surveillance. My findings are described in the full procedure note, which is enclosed. If I can be of further assistance, please feel free to contact me at . Sincerely, Michael Mcgill, 10/24/2022 11:30:33 AM This report has been signed electronically.
[2022-10-24] MEDS: Ceftriaxone 1 GM/50 ML BAG IV (12:07)
--- NOTE | 2022-10-24 12:30 | CASEMGMT ---
RN CM Face to Face with patient for initial transition planning/care coordination assessment. RN CM introduced self and role at [facility]. Patient lying in bed, alert and oriented. Patient willing to participate in assessment and is able to answer all questions appropriately. Care providers, pharmacy, and demographics verified. Patient wishes to discharge home, denies need for home health at this time. Patient states she has no further needs or concerns at this time. CM to follow for discharge planning needs that may arise. PCP: Ling Specialists: Friend, GI Preferred Pharmacy: [facility] Insurance: [place] MCR Prescription Benefit: yes Living Will/HPOA: none LNOK: daughter Living Arrangements: Patient lives alone in a basement apartment. Patient is independent and able to ambulate stairs. Transportation: self, niece, sister DME/HHC: Patient has cpap and home oxygen through [employer] with portability as needed. No pevious HHC or SNF Disposition Plan: Patient to discharge home with family support and follow-up plans in place. Charity GILBERTN, RN, CM
--- NOTE | 2022-10-24 14:24 | CHAPLAIN ---
Type of Pastoral Visit _x__ Initial Visit ___ Follow-up Visit ___ On-call Visit ___ General Patient Visit ___ Spiritual Assessment ___ Family Conference ___ Bereavement ___ Rapid Response ___ Code Blue ___ Other (describe below) Pastoral Care Referral From _x__ Patient ___ Family ___ Nurse ___ Physician ___ Rn Correctional ___ Manager Of Tires Sales ___ Other (describe below) Sacrament/Intervention _x__ Active listening ___ Anointing ___ Pentecostalism ___ Bereavement ___ Communion ___ Bea exploration ___ ___ Life review _x__ Prayer ___ Reconciliation ___ Sacrament of Sick _x__ Supportive presence ___ Wedding ___ Other (describe below) Pastoral Comments patient gives description of need and that it continues without an answer so far; pt states goal is to get to bottom of this and then get better; pt requests a prayer for support and answers to need; pt speaks of adequate family support; pt has no other concerns at this time
--- NOTE | 2022-10-24 15:25 | PN_ITS ---
Subjective Subjective Patient seen and examined. She had noted some abdominal pain but denied any fever, chills, nausea or vomiting or any other symptoms. Review of systems otherwise negative. She had EGD today which showed large hiatal hernia and oozing gastric ulcers with adherent clot which was injected and treated with heater probe as well as portal hypertensive gastropathy and nonbleeding gastric ulcers with no stigmata of bleeding. Objective Data Objective Data Vital Signs: Vital Signs Temp Pulse Resp BP Pulse Ox O2 Del Method O2 Flow Rate 98.0 F 86 18 102/60 93 Nasal Cannula 2 10/24/22 14:20 10/24/22 14:20 10/24/22 14:20 10/24/22 14:20 10/24/22 14:20 10/24/22 14:20 10/24/22 14:20 Oxygen Flow Rate (L/min) 2 Oxygen Delivery Method Nasal Cannula Weight: 345 lb 14.484 oz Body Mass Index (BMI) 55.8 Intake & Output: Intake and Output for Last 24 Hours 10/22/22 10/23/22 10/24/22 23:59 23:59 23:59 Intake Total 1185 / 1185 50 Balance 1185 / 1185 Lab / Micro Data Result Diagrams: 10/24/22 06:25 10/24/22 03:28 Labs: Laboratory Results - last 24 hr 10/23/22 13:42: Magnesium 1.6 10/23/22 15:20: Urine Color Yellow, Urine Clarity Sl Cloudy, Urine pH 6.0, Ur Specific [place] 1.010, Urine Protein 15 H, Urine Glucose (UA) Normal, Urine Ketones Negative, Urine Occult Blood 25 H, Urine Nitrite Negative, Urine Bilirubin Negative, Urine Urobilinogen Normal, Ur Leukocyte Esterase 500 H, Urine RBC 0-5 SEEN, Urine WBC 25-50 SEEN, Ur Squamous Epith Cells 0-5 SEEN, Urine Bacteria 0 SEEN, Urine Mucus 0 SEEN 10/23/22 16:15: Blood Type O POSITIVE, Antibody Screen TNP 10/23/22 16:15: Antibody Screen NEGATIVE 10/23/22 16:15: Crossmatch See Detail 10/23/22 18:58: Hgb 7.6 L, Hct 27.4 L 10/23/22 22:18: COVID-19 (RODERICK) Not Detected 10/23/22 22:58: Hgb 7.9 L, Hct 28.9 L 10/24/22 03:28: WBC 12.0 H, RBC 3.02 L, Hgb 6.9 L, Hct 25.8 L, MCV 85.4, MCH 22.8 L, MCHC 26.7 L, RDW Std Deviation 75.6 H, RDW Coeff of Chepe 25.2 H, Plt Count 320, MPV 9.6, Immature Gran % (Auto) 0.700, Neut % (Auto) 82.2 H, Lymph % (Auto) 12.0 L, [place] % (Auto) 4.5, Eos % (Auto) 0.3, Baso % (Auto) 0.3, Absolute Neuts (auto) 9.8 H, Absolute Lymphs (auto) 1.43, Nucleated RBC % 0, Hypochromasia 1+ 10/24/22 03:28: Sodium 136, Potassium 3.8, Chloride 104, Carbon Dioxide 27.0, Anion Gap 5, BUN 14, Creatinine 0.89, Estim Creat Clear Calc 70.01, Est GFR (MDRD) Af Amer 86, Est GFR (MDRD) Non-Af 71, BUN/Creatinine Ratio 15.7, Glucose 101, Calcium 9.1, Total Bilirubin 0.40, AST 19, ALT 16, Alkaline Phosphatase 67, Total Protein 6.4, Albumin 2.2 L, Globulin 4.2, Albumin/Globulin Ratio 0.5 L 10/24/22 06:25: Hgb 6.9 L Micro: Microbiology 10/23/22 15:00 Stool Stool Occult Blood (BIANKA) - Final Occult Blood Positive Physical Exam Const alert, oriented x3 and no apparent distress Constitutional Narrative: obese, anxious HEENT normocephalic, head/scalp atraumatic and moist oral mucous membranes Eyes PERRL and EOMs intact bilaterally Neck supple and no JVD Lymph Lymphatic: no lymphadenopathy noted Resp normal respiratory effort, normal air movement and clear to auscultation bilaterally Cardio regular rate, regular rhythm, S1 normal heart sound, S2 normal heart sound and no murmurs GI normal to inspection, nondistended, normoactive bowel sounds GI Narrative: moderate epigastric tenderness, no guarding or rebound tenderness Extremity normal capillary refill, no clubbing, cyanosis or edema and no calf tenderness Skin General Skin Exam: no breakdown Neuro CN's II-XII intact bilaterally, no focal motor deficits, no sensory deficits noted and deep tendon reflexes 2+ bilaterally Motor Exam: strength 5/5 throughout Psych thought process normal, cooperative and affect normal Appearance: appropriate Assessment & Plan Assessment/Plan (1) Gastrointestinal bleeding, upper: (2) Anemia: PLAN: Plan #UGI bleed due to bleeding peptic ulcers * S/p EGD which showed oozing gastric ulcers with adherent clot as well as known oozing gastric ulcers. These were treated with heater probe * On IV pantoprazole. * Gastroenterology on board. Also on octreotide. * On clear liquid diet. Also on Carafate. Biopsy results pending. * By gastroenterology will need follow-up EGD in about 3 months time. * #UTI:on IV rocephin. Urine cultures pending #Depression: On bupropion #Hypertension: On atenolol #Chronic pain syndrome: on buprenorphine #Hypokalemia: Replace and trend #history of rheumatoid arthritis and SLE: On prednisone which was held on admission due to concerns about GI bleed. #Hypertension: On atenolol #GERD: On PPI #KIKI: On CPAP nightly #Restless leg syndrome: On Requip DVT prophylaxis: SCDs Total time spent on evaluation and management of patient, reviewing chart and specialist notes, discussing plan with patient and his , discussion with nursing and ancillary staff as well as documentation: 45 mins Charges/Coding Visit Charges Inpatient E&M: 56677 Subs Hosp L2
[2022-10-24] MEDS: QUEtiapine 25 MG Tablet PO (21:53)
[2022-10-24] MEDS: Pramipexole Di-HCl 1 MG Tablet PO (21:53)
[2022-10-24] MEDS: busPIRone 5 MG Tablet 20 MG PO (21:53)
[2022-10-24] MEDS: 0.9% Normal Saline 1,000 ML 75 ML IV (22:01)
[2022-10-25] VITALS (7 sets, daily range): BP systolic 117–132; BP diastolic 42–76; PULSE 85–100; RESP 16–18; TEMP 36.5–36.8; O2SAT 94–100; BMI 55.7
[2022-10-25] MEDS: oxyCODONE 5 MG Tablet PO ×3 (00:17→21:04)
[2022-10-25 05:56] LABS: Absolute Lymphocyte Count 1.66 X10^3/uL (0.83-4.51); Absolute Neutrophil Count 4.6 X10^3/uL (2.0-7.7); Basophil# 0.03 X10^3/uL; Basophil% 0.4 % (0-1); Eosinophil# 0.25 X10^3/uL; Eosinophils% 3.5 % (0-5); Hematocrit 27.2 % (37-47); Hemoglobin 7.4 g/dL (12.0-15.0); Lymphocyte # 1.66 X10^3/ul (0.83-4.51); Lymphocyte % 23.2 % (19-41); Mean Corp Hgb Conc 27.2 g/dL (32-36); Mean Corpuscular Hgb 23.5 pg (27.0-32.0); Mean Corpuscular Volume 86.3 fL (81-99); Mean Platelet Vol. 10.8 fl (6.2-12.0); Monocyte# 0.57 X10^3/uL; NRBC Flagged by Analyzer 0.4 % (0-5); Neutrophil # 4.62 X10^3/uL (2.7-7.7); Neutrophil % 64.6 % (47-70); POSITIVE MORPHOLOGY YES; Platelet Count 279 K/mm3 (150-450); RBC Distribution Width CV 24.2 % (11.6-14.6); Red Blood Count 3.15 M/mm3 (4.2-5.4); White Blood Count 7.2 K/mm3 (4.4-11.0)
[2022-10-25 06:13] LABS: Anion Gap 5 (5-15); BUN 12 mg/dL (7-18); BUN/Creat Ratio 14.3 RATIO (10-20); Chloride 106 mmol/L (98-107); Creatinine, Serum 0.84 mg/dL (0.55-1.02); EST Glomerular Filtration Rate 76 mL/min (>60); Est Glom Filt Rate - Afr Amer 92 mL/min (>60); Estimated Creatinine Clearance 74.17 ml/min; Glucose 105 mg/dL (74-106); Potassium 3.5 mmol/L (3.5-5.1); Sodium Level 138 mmol/L (136-145)
[2022-10-25 06:36] LABS: Differential Indicated SCAN CRITERIA MET
[2022-10-25 06:47] LABS: Anisocytosis 2+
[2022-10-25] MEDS: Ferrous Sulfate 325 MG Tablet PO (09:04)
[2022-10-25] MEDS: fluvoxaMINE Maleate 50 MG Tablet 100 MG PO (09:04)
[2022-10-25] MEDS: buPROPion (XL) 300 MG TABLET.XL PO (09:04)
[2022-10-25] MEDS: Atenolol 50 MG Tablet PO (09:04)
[2022-10-25] MEDS: busPIRone 5 MG Tablet 10 MG PO (09:04)
--- NOTE | 2022-10-25 10:42 | PN_ITS ---
Subjective Subjective Patient seen and examined. She had no active complaints. Her abdominal pain had moved. She denied any nausea or vomiting, dizziness or lightheadedness. Review of systems otherwise negative. She has remained hemodynamically stable. Objective Data Objective Data Vital Signs: Vital Signs Temp Pulse Resp BP Pulse Ox O2 Del Method O2 Flow Rate 98.1 F 98 18 130/69 H 96 Room Air 2 10/25/22 09:10 10/25/22 09:10 10/25/22 09:10 10/25/22 09:10 10/25/22 09:10 10/25/22 09:23 10/25/22 03:10 Oxygen Flow Rate (L/min) 2 Oxygen Delivery Method Room Air Weight: 345 lb 3.902 oz Body Mass Index (BMI) 55.7 Intake & Output: Intake and Output for Last 24 Hours 10/23/22 10/24/22 10/25/22 23:59 23:59 23:59 Intake Total 1185 / 1185 3538.50 / 3738.50 810.25 / 810.25 Balance 1185 / 1185 3538.50 / 3738.50 810.25 / 810.25 Lab / Micro Data Result Diagrams: 10/25/22 04:09 10/25/22 04:09 Labs: Laboratory Results - last 24 hr 10/23/22 16:15: Crossmatch See Detail 10/25/22 04:09: WBC 7.2, RBC 3.15 L, Hgb 7.4 L, Hct 27.2 L, MCV 86.3, MCH 23.5 L , MCHC 27.2 L, RDW Std Deviation 74.0 H, RDW Coeff of Chepe 24.2 H, Plt Count 279, MPV 10.8, Immature Gran % (Auto) 0.300, Neut % (Auto) 64.6, Lymph % (Auto) 23.2, [place] % (Auto) 8.0, Eos % (Auto) 3.5, Baso % (Auto) 0.4, Absolute Neuts (auto) 4.6, Absolute Lymphs (auto) 1.66, Nucleated RBC % 0.4, Anisocytosis 2+ 10/25/22 04:09: Sodium 138, Potassium 3.5, Chloride 106, Carbon Dioxide 27.0, Anion Gap 5, BUN 12, Creatinine 0.84, Estim Creat Clear Calc 74.17, Est GFR (MDRD) Af Amer 92, Est GFR (MDRD) Non-Af 76, BUN/Creatinine Ratio 14.3, Glucose 105, Calcium 9.0 Micro: Microbiology 10/23/22 15:20 Urine, Clean Catch Urine Culture - Final Mixed Gram Positive Organisms 10/23/22 15:00 Stool Stool Occult Blood (BAINKA) - Final Occult Blood Positive Physical Exam Const alert, oriented x3 and no apparent distress Constitutional Narrative: obese General Appearance: cooperative HEENT normocephalic, head/scalp atraumatic and moist oral mucous membranes Eyes PERRL and EOMs intact bilaterally Neck no lymphadenopathy, supple and no JVD Lymph Lymphatic: no lymphadenopathy noted and no lymphedema noted Resp normal respiratory effort, normal air movement and clear to auscultation bilaterally Cardio regular rate, regular rhythm, S1 normal heart sound, S2 normal heart sound and no murmurs GI normal to inspection, nondistended, normoactive bowel sounds GI Narrative: moderate epigastric tenderness, no guarding or rebound tenderness Extremity normal capillary refill, no clubbing, cyanosis or edema and no calf tenderness Skin General Skin Exam: no breakdown Neuro CN's II-XII intact bilaterally, no focal motor deficits, no sensory deficits no iraida and deep tendon reflexes 2+ bilaterally Motor Exam: strength 5/5 throughout Psych thought process normal, cooperative and affect normal Appearance: appropriate Assessment & Plan Assessment/Plan (1) Gastrointestinal bleeding, upper: (2) Anemia: PLAN: Plan #UGI bleed due to bleeding peptic ulcers * S/p EGD which showed oozing gastric ulcers with adherent clot as well as known oozing gastric ulcers. These were treated with heater probe * On IV pantoprazole. * Gastroenterology on board. Also on octreotide. * On clear liquid diet. Also on Carafate. Biopsy results pending. * By gastroenterology will need follow-up EGD in about 3 months time. * to advance diet today * Hb today is 7.4 * #Acute on chronic anemia due to UGI bleed * Hb today is 7.4 * was transfused with one unit of PRBC * #UTI:on IV rocephin. Urine cultures growing mixed gram positive organisms #Depression: On bupropion #Hypertension: On atenolol #Chronic pain syndrome: on buprenorphine #Hypokalemia: resolved. #history of rheumatoid arthritis and SLE: On prednisone which was held on admission due to concerns about GI bleed. #Hypertension: On atenolol #GERD: On PPI #KIKI: On CPAP nightly #Restless leg syndrome: On Requip DVT prophylaxis: SCDs Disposition: anticipate dc over the next 24-48 hours Total time spent on evaluation and management of patient, reviewing chart and specialist notes, discussing plan with patient and his , discussion with nursing and ancillary staff as well as documentation: 43 mins Charges/Coding Visit Charges Inpatient E&M: 05820 Subs Hosp L2
[2022-10-25] MEDS: Ceftriaxone 1 GM/50 ML BAG IV (10:44)
[2022-10-25] MEDS: 0.9% Saline Lock 10 ML Syringe IV (12:37)
[2022-10-25] MEDS: Acetaminophen 325 MG Tablet 650 MG PO (12:47)
--- NOTE | 2022-10-25 16:48 | PN_ITS ---
Subjective Subjective Patient has been tolerating a diet. She denies any nausea, chest pain or shortness of breath. Objective Data Objective Data Vital Signs: Vital Signs Temp Pulse Resp BP Pulse Ox O2 Del Method O2 Flow Rate 98.1 F 98 18 130/69 H 96 Room Air 2 10/25/22 09:10 10/25/22 09:10 10/25/22 09:10 10/25/22 09:10 10/25/22 09:10 10/25/22 09:23 10/25/22 07:36 Oxygen Flow Rate (L/min) 2 Oxygen Delivery Method Room Air Weight: 345 lb 3.902 oz Body Mass Index (BMI) 55.7 Intake & Output: Intake and Output for Last 24 Hours 10/23/22 10/24/22 10/25/22 23:59 23:59 23:59 Intake Total 1185 / 1185 3538.50 / 3738.50 2118.58 / 2118.58 Balance 1185 / 1185 3538.50 / 3738.50 2118.58 / 2118.58 Lab / Micro Data Result Diagrams: 10/25/22 04:09 10/25/22 04:09 Labs: Laboratory Results - last 24 hr 10/23/22 16:15: Crossmatch See Detail 10/25/22 04:09: WBC 7.2, RBC 3.15 L, Hgb 7.4 L, Hct 27.2 L, MCV 86.3, MCH 23.5 L , MCHC 27.2 L, RDW Std Deviation 74.0 H, RDW Coeff of [place]pe 24.2 H, Plt Count 279, MPV 10.8, Immature Gran % (Auto) 0.300, Neut % (Auto) 64.6, Lymph % (Auto) 23.2, [place] % (Auto) 8.0, Eos % (Auto) 3.5, Baso % (Auto) 0.4, Absolute Neuts (auto) 4.6, Absolute Lymphs (auto) 1.66, Nucleated RBC % 0.4, Anisocytosis 2+ 10/25/22 04:09: Sodium 138, Potassium 3.5, Chloride 106, Carbon Dioxide 27.0, Anion Gap 5, BUN 12, Creatinine 0.84, Estim Creat Clear Calc 74.17, Est GFR (MDRD) Af Amer 92, Est GFR (MDRD) Non-Af 76, BUN/Creatinine Ratio 14.3, Glucose 105, Calcium 9.0 Micro: Microbiology 10/24/22 16:45 Stool Enteric Bacteriology - Final 10/23/22 15:20 Urine, Clean Catch Urine Culture - Final Mixed Gram Positive Organisms 10/23/22 15:00 Stool Stool Occult Blood (BIANKA) - Final Occult Blood Positive Physical Exam Const alert, oriented x3 and no apparent distress Constitutional Narrative: obese General Appearance: cooperative HEENT normocephalic, head/scalp atraumatic and moist oral mucous membranes Eyes PERRL and EOMs intact bilaterally Neck no lymphadenopathy, supple and no JVD Lymph Lymphatic: no lymphadenopathy noted and no lymphedema noted Resp normal respiratory effort, normal air movement and clear to auscultation bilaterally Cardio regular rate, regular rhythm, S1 normal heart sound, S2 normal heart sound and no murmurs GI normal to inspection, nondistended, normoactive bowel sounds GI Narrative: moderate epigastric tenderness, no guarding or rebound tenderness Extremity normal capillary refill, no clubbing, cyanosis or edema and no calf tenderness Skin General Skin Exam: no breakdown Neuro CN's II-XII intact bilaterally, no focal motor deficits, no sensory deficits noted and deep tendon reflexes 2+ bilaterally Motor Exam: strength 5/5 throughout Psych thought process normal, cooperative and affect normal Appearance: appropriate Assessment & Plan Assessment/Plan (1) Gastrointestinal bleeding, upper: (2) Anemia: PLAN: Plan #UGI bleed due to bleeding peptic ulcers * S/p EGD which showed oozing gastric ulcers with adherent clot as well as known oozing gastric ulcers. These were treated with heater probe. The biopsies from the gastric ulcers are pending to see if there is any sign of H. pylori. * On IV pantoprazole. She can be switched to p.o. pantoprazole * Gastroenterology on board. Also on octreotide which can be DC'd. * On clear liquid diet. Advance diet as tolerated. Also on Carafate. Biopsy results pending. Charges/Coding Visit Charges Inpatient E&M: 55564 Subs Hosp L2
[2022-10-25] MEDS: Pantoprazole Sodium 40 MG Tablet PO (19:13)
[2022-10-25] MEDS: busPIRone 5 MG Tablet 20 MG PO (21:03)
[2022-10-25] MEDS: Pramipexole Di-HCl 1 MG Tablet PO (21:04)
[2022-10-25] MEDS: QUEtiapine 25 MG Tablet PO (21:04)
[2022-10-26 05:00] VITALS: BP 122/74; PULSE 90; RESP 18; TEMP 36.6; O2SAT 94
[2022-10-26 05:34] VITALS: BMI 55.8
[2022-10-26] MEDS: Acetaminophen 325 MG Tablet 650 MG PO (06:29)
[2022-10-26 06:33] LABS: Absolute Lymphocyte Count 1.71 X10^3/uL (0.83-4.51); Basophil# 0.03 X10^3/uL; Basophil% 0.5 % (0-1); Eosinophil# 0.28 X10^3/uL; Hematocrit 26.6 % (37-47); Hemoglobin 7.3 g/dL (12.0-15.0); Lymphocyte # 1.71 X10^3/ul (0.83-4.51); Lymphocyte % 30.3 % (19-41); Mean Corp Hgb Conc 27.4 g/dL (32-36); Mean Corpuscular Hgb 23.5 pg (27.0-32.0); Mean Corpuscular Volume 85.8 fL (81-99); Mean Platelet Vol. 9.5 fl (6.2-12.0); Monocyte# 0.58 X10^3/uL; Monocyte% 10.3 % (0-10); NRBC Flagged by Analyzer 0.5 % (0-5); Neutrophil # 3.03 X10^3/uL (2.7-7.7); Neutrophil % 53.5 % (47-70); POSITIVE MORPHOLOGY YES; Platelet Count 366 K/mm3 (150-450); RBC Distribution Width CV 23.9 % (11.6-14.6); White Blood Count 5.7 K/mm3 (4.4-11.0)
[2022-10-26 06:34] LABS: Differential Indicated SCAN CRITERIA MET
[2022-10-26 06:54] LABS: Anion Gap 6 (5-15); BUN 9 mg/dL (7-18); Calcium,Total 8.9 mg/dL (8.5-10.1); Chloride 106 mmol/L (98-107); Creatinine, Serum 0.75 mg/dL (0.55-1.02); EST Glomerular Filtration Rate 87 mL/min (>60); Est Glom Filt Rate - Afr Amer 105 mL/min (>60); Estimated Creatinine Clearance 83.07 ml/min; Glucose 92 mg/dL (74-106); Potassium 3.6 mmol/L (3.5-5.1); Sodium Level 139 mmol/L (136-145)
[2022-10-26 07:09] LABS: Anisocytosis 2+
--- NOTE | 2022-10-26 08:00 | PN_ITS ---
Subjective Subjective Patient has not seen any more signs of GI bleeding at this time. She is tolerating a diet. Objective Data Objective Data Vital Signs: Vital Signs Temp Pulse Resp BP Pulse Ox O2 Del Method O2 Flow Rate 98.0 F 90 16 114/58 L 92 Room Air 2 10/26/22 09:29 10/26/22 09:29 10/26/22 09:29 10/26/22 09:29 10/26/22 09:29 10/26/22 09:45 10/25/22 07:36 Oxygen Flow Rate (L/min) 2 Oxygen Delivery Method Room Air Weight: 346 lb 2.012 oz Body Mass Index (BMI) 55.8 Intake & Output: Intake and Output for Last 24 Hours 10/24/22 10/25/22 10/26/22 23:59 23:59 23:59 Intake Total 3538.50 / 3738.50 2588.58 / 2588.58 350 / 350 Balance 3538.50 / 3738.50 2588.58 / 2588.58 350 / 350 Lab / Micro Data Result Diagrams: 10/26/22 06:05 10/26/22 06:05 Labs: Laboratory Results - last 24 hr 10/26/22 06:05: WBC 5.7, RBC 3.10 L, Hgb 7.3 L, Hct 26.6 L, MCV 85.8, MCH 23.5 L , MCHC 27.4 L, RDW Std Deviation 73.0 H, RDW Coeff of Chepe 23.9 H, Plt Count 366, MPV 9.5, Immature Gran % (Auto) 0.400, Neut % (Auto) 53.5, Lymph % (Auto) 30.3, [place] % (Auto) 10.3 H, Eos % (Auto) 5.0, Baso % (Auto) 0.5, Absolute Neuts (auto) 3.0, Absolute Lymphs (auto) 1.71, Nucleated RBC % 0.5, Anisocytosis 2+ 10/26/22 06:05: Sodium 139, Potassium 3.6, Chloride 106, Carbon Dioxide 27.0, Anion Gap 6, BUN 9, Creatinine 0.75, Estim Creat Clear Calc 83.07, Est GFR (MDRD) Af Amer 105, Est GFR (MDRD) Non-Af 87, BUN/Creatinine Ratio 12.0, Glucose 92, Calcium 8.9 Micro: Microbiology 10/23/22 16:30 Blood Culture (Wb) - Anticubital Right Blood Culture - Preliminary No growth in 48 hours. 10/23/22 16:30 Blood Culture (Wb) - Anticubital Left Blood Culture - Preliminary No growth in 48 hours. 10/24/22 16:45 Stool Enteric Bacteriology - Final 10/23/22 15:20 Urine, Clean Catch Urine Culture - Final Mixed Gram Positive Organisms 10/23/22 15:00 Stool Stool Occult Blood (BIANKA) - Final Occult Blood Positive Physical Exam Const alert, oriented x3 and no apparent distress Constitutional Narrative: obese General Appearance: cooperative HEENT normocephalic, head/scalp atraumatic and moist oral mucous membranes Eyes PERRL and EOMs intact bilaterally Neck no lymphadenopathy, supple and no JVD Lymph Lymphatic: no lymphadenopathy noted and no lymphedema noted Resp normal respiratory effort, normal air movement and clear to auscultation bilaterally Cardio regular rate, regular rhythm, S1 normal heart sound, S2 normal heart sound and no murmurs GI normal to inspection, nondistended, normoactive bowel sounds GI Narrative: moderate epigastric tenderness, no guarding or rebound tenderness Extremity normal capillary refill, no clubbing, cyanosis or edema and no calf tenderness Skin General Skin Exam: no breakdown Neuro CN's II-XII intact bilaterally, no focal motor deficits, no sensory deficits noted and deep tendon reflexes 2+ bilaterally Motor Exam: strength 5/5 throughout Psych thought process normal, cooperative and affect normal Appearance: appropriate Assessment & Plan Assessment/Plan (1) Gastrointestinal bleeding, upper: (2) Anemia: PLAN: Plan #UGI bleed due to bleeding peptic ulcers * S/p EGD which showed oozing gastric ulcers with adherent clot as well as known oozing gastric ulcers. These were treated with heater probe. The biopsies from the gastric ulcers are pending to see if there is any sign of H. pylori. * On IV pantoprazole. She can be switched to p.o. pantoprazole * Gastroenterology on board. Also on octreotide which can be DC'd. * On clear liquid diet. Advance diet as tolerated. Also on Carafate. Biopsy results pending. Charges/Coding Visit Charges Inpatient E&M: 28446 Subs Hosp L2
[2022-10-26 08:08] VITALS: O2SAT 92
[2022-10-26 09:29] VITALS: BP 114/58; PULSE 90; RESP 16; TEMP 36.7; O2SAT 92
[2022-10-26] MEDS: Ondansetron 4 MG/2 ML Vial IV (09:49)
[2022-10-26] MEDS: 0.9% Saline Lock 10 ML Syringe IV (09:50)
[2022-10-26] MEDS: fluvoxaMINE Maleate 50 MG Tablet 100 MG PO (09:52)
[2022-10-26] MEDS: buPROPion (XL) 300 MG TABLET.XL PO (09:52)
[2022-10-26] MEDS: Atenolol 50 MG Tablet PO (09:52)
[2022-10-26] MEDS: Pantoprazole Sodium 40 MG Tablet PO (09:53)
[2022-10-26] MEDS: Ceftriaxone 1 GM/50 ML BAG IV (09:53)
[2022-10-26] MEDS: Ferrous Sulfate 325 MG Tablet PO (09:53)
--- NOTE | 2022-10-26 11:55 | PCM.DC ---
Discharge Instructions Diet Discharge Diet: 1999 Calorie Control Diet Activity Discharge Activity: Return to Normal Activity Weight Bearing Status: Weight bearing as tolerated Dressing / Incision Call your doctor if you observe: Fever of 101 or Higher, Shortness of breath, Dizziness, Swelling in the ankles, Chest pain and Increased palpitations (irregular heartbeat) Follow Up Care Test Results: Test results from this visit will be discussed in further detail at your follow-up appointment, if applicable. 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 Discharge Orders/Prescriptions Prescriptions: New pantoprazole 40 mg Tablet,Delayed Release (Dr/Ec) 40 mg PO BID Qty: 60 2RF sucralfate 1 gram tablet 1 g PO Q6H Qty: 120 1RF Continued bupropion HCl 300 MG tablet extended release 24 hr 300 mg PO DAILY ropinirole 2 MG tablet extended release 24 hr 2 mg PO QHS Xarelto 20 mg tablet 20 mg PO DAILY Label Comments: TAKE 1 TABLET BY MOUTH EVERY DAY WITH SUPPER prednisone 5 mg tablet 10 mg PO DAILY Label Comments: TAKE 2 TABLETS BY MOUTH EVERY DAY. NEEDS OFFICE VISIT fluvoxamine 100 mg tablet 100 mg PO DAILY ferrous sulfate 325 mg (65 mg iron) tablet 325 mg PO DAILY Label Comments: TAKE 1 TABLET BY MOUTH EVERY DAY buspirone 10 mg tablet 10 mg PO DAILY Label Comments: TAKE 1 TABLET BY MOUTH EVERY MORNING AND TAKE 2 TABLETS BY MOUTH AT BEDTIME buspirone 10 mg tablet 20 mg PO QHS Label Comments: TAKE 1 TABLET BY MOUTH EVERY MORNING AND TAKE 2 TABLETS BY MOUTH AT BEDTIME atenolol 50 mg tablet 50 mg PO DAILY Label Comments: TAKE 1 TABLET BY MOUTH EVERY DAY Rexulti 1 mg tablet 1 mg PO DAILY Label Comments: TAKE 1 TABLET BY MOUTH EVERY DAY Probiotic 1 ea PO/SL DAILY biotin 1 ea PO/SL DAILY ondansetron 4 mg tablet,disintegrating 4 mg PO Q8H PRN PRN (Reason: Nausea) Qty: 10 0RF quetiapine [Seroquel] 25 mg Tablet 25 mg PO QHS Discontinued pantoprazole 40 mg tablet,delayed release (DR/EC) 40 mg PO BID Referrals / Follow Up: Tarah Dubon DO [Primary Care Provider] - Within 2 Weeks FriendMichael DO [Med Staff - Active Staff] - Within 2 Weeks Disposition Disposition (needs filled in before D/C Order can be placed): Home, Self Care
[2022-10-26] MEDS: busPIRone 5 MG Tablet 10 MG PO (12:01)
--- NOTE | 2022-10-26 16:58 | DS.PCM_ITS ---
Providers Date of Admission: 10/23/22 Date of Discharge: 10/26/22 Primary Care Physician: Dr. Tarah Dubon, DO Consultations 10/23/22 18:03 Consult: Gastroenterology Routine Consulting Provider: Nathanael Gastro[facility] Reason for Consult: GI bleed EMERGENT Consult: No MD Notified: Yes Date Notified: 10/23/22 Time Notified: 16:56 Method of Notification: ED Physician Initiated Reason For Visit: GI BLEED Diagnosis Discharge Diagnosis (1) Gastrointestinal bleeding, upper: Status: Acute Code(s): K92.2 - Gastrointestinal hemorrhage, unspecified (2) Anemia: Status: Acute Code(s): D64.9 - Anemia, unspecified Plan #UGI bleed due to bleeding peptic ulcers * S/p EGD which showed oozing gastric ulcers with adherent clot as well as known oozing gastric ulcers. These were treated with heater probe * On IV pantoprazole. * Gastroenterology on board. Also on octreotide. * On clear liquid diet. Also on Carafate. Biopsy results pending. * By gastroenterology will need follow-up EGD in about 3 months time. * to advance diet today * Hb today is 7.4 * #Acute on chronic anemia due to UGI bleed * Hb today is 7.4 * was transfused with one unit of PRBC * #UTI:on IV rocephin. Urine cultures growing mixed gram positive organisms #Depression: On bupropion #Hypertension: On atenolol #Chronic pain syndrome: on buprenorphine #Hypokalemia: resolved. #history of rheumatoid arthritis and SLE: On prednisone which was held on admission due to concerns about GI bleed. #Hypertension: On atenolol #GERD: On PPI #KIKI: On CPAP nightly #Restless leg syndrome: On Requip DVT prophylaxis: SCDs Disposition: anticipate dc over the next 24-48 hours Total time spent on evaluation and management of patient, reviewing chart and specialist notes, discussing plan with patient and his , discussion with nursing and ancillary staff as well as documentation: 43 mins Medications at Discharge Home Medications bupropion HCl 300 mg 24 hr tablet, extended release 300 mg PO DAILY mental health 08/25/18 ropinirole 2 mg tablet,extended release 24 hr 2 mg PO QHS restless legs 08/25/18 rivaroxaban 20 mg tablet (Xarelto) 20 mg PO DAILY blood thinner 06/01/22 Probiotic 1 ea PO/SL DAILY IMMUNE HEALTH 09/21/22 atenolol 50 mg tablet 50 mg PO DAILY HEART 09/21/22 biotin 1 ea PO/SL DAILY SUPPLEMENT 09/21/22 brexpiprazole 1 mg tablet (Rexulti) 1 mg PO DAILY MENTAL HEALTH 09/21/22 buspirone 10 mg tablet 10 mg PO DAILY ANXIETY 09/21/22 buspirone 10 mg tablet 20 mg PO QHS ANXIETY 09/21/22 ferrous sulfate 325 mg (65 mg iron) tablet 325 mg PO DAILY SUPPLEMENT 09/21/22 fluvoxamine 100 mg tablet 100 mg PO DAILY MENTAL HEALTH 09/21/22 ondansetron 4 mg disintegrating tablet 4 mg PO Q8H PRN PRN Nausea #10 tabs prednisone 5 mg tablet 10 mg PO DAILY RA 09/21/22 quetiapine 25 mg tablet (Seroquel) 25 mg PO QHS sleep 10/23/22 pantoprazole 40 mg tablet,delayed release 40 mg PO BID #60 tabs 10/26/22 sucralfate 1 gram tablet 1 g PO Q6H #120 tabs 10/26/22 Hospital Course Operations None Procedures EGD Summary of Care Provided Minutes Spent on Discharge: 45 Hospital Course: Patient is a 51 y/o female with past medical history as outlined was admitted through the ED on 2022 with a complaint of nausea, vomiting and diarrhea. She said the diarrhea was dark brown and was assembled coffee grounds. His stools are also been dark. She denied any abdominal pain. She did admit to some fever. She had a history of pulmonary embolism and rheumatoid arthritis and also had lupus anticoagulant disorder and MH TFR gene mutation and had recently been transition from warfarin to Xarelto about 5 months prior to this admission. She notes that she had been bruising more easily. On admission, hemoglobin was 8 and stool for occult blood was positive. CT of the abdomen and pelvis showed mild hepatomegaly with diffuse fatty infiltration of the liver. There was concern about a UTI based on urinalysis so she was started on IV ceftriaxone. She was kept n.p.o. and hydrated with IV fluids and started on IV PPI. Gastroenterology was consulted. She had EGD which showed small esophageal varices and oozing gastric ulcers with adherent clot which were injected and treated with a heater probe as well as portal hypertensive gastropathy and nonbleeding gastric ulcers with no stigmata of bleeding which were biopsied. She was placed on p.o. Protonix 40 mg twice daily as well as sucralfate. She remained stable and felt much better. Per discussion with gastroenterology her Xarelto was resumed as well as her prednisone. She was counseled to follow-up with her food editor for consideration about switching the prednisone to a disease modifying JASPAL to decrease the risk of ulcers. She was discharged home on 10/26/2022. She is follow-up with her primary care doctor and follow-up with gastroenterology. Patient seen and examined prior to discharge. She had no complaints and had an uneventful night. Review of systems otherwise negative. Labs and vitals reviewed. Home medication reviewed and reconciled. Physical Exam Const alert, oriented x3 and no apparent distress Constitutional Narrative: obese General Appearance: cooperative, comfortable and well kempt HEENT normocephalic, head/scalp atraumatic, hearing grossly normal bilaterally and moist oral mucous membranes Mouth: oral and palatal mucosa normal Eyes PERRL and EOMs intact bilaterally Neck no lymphadenopathy, supple and no JVD Lymph Lymphatic: no lymphadenopathy noted and no lymphedema noted Resp normal respiratory effort, normal air movement and clear to auscultation bilaterally Cardio regular rate, regular rhythm, S1 normal heart sound, S2 normal heart sound and no murmurs GI normal to inspection, nondistended, normoactive bowel sounds Extremity normal to inspection, full ROM, normal capillary refill, no clubbing, cyanosis or edema and no calf tenderness Skin no rashes or lesions noted General Skin Exam: no breakdown Neuro CN's II-XII intact bilaterally, moves all extremities, no focal motor deficits, no sensory deficits noted and deep tendon reflexes 2+ bilaterally Sensorium / Orientation: awake Motor Exam: strength 5/5 throughout Psych thought process normal, cooperative and affect normal Appearance: appropriate Weight / BMI Weight Weight: 346 lb 2.012 oz Body Mass Index (BMI) 55.8 ABG / Lab / Microbiology Data Result Diagrams: 10/26/22 06:05 10/26/22 06:05 Laboratory: Laboratory Results - last 24 hr 10/26/22 06:05: WBC 5.7, RBC 3.10 L, Hgb 7.3 L, Hct 26.6 L, MCV 85.8, MCH 23.5 L , MCHC 27.4 L, RDW Std Deviation 73.0 H, RDW Coeff of Chepe 23.9 H, Plt Count 366, MPV 9.5, Immature Gran % (Auto) 0.400, Neut % (Auto) 53.5, Lymph % (Auto) 30.3, Lander % (Auto) 10.3 H, Eos % (Auto) 5.0, Baso % (Auto) 0.5, Absolute Neuts (auto) 3.0, Absolute Lymphs (auto) 1.71, Nucleated RBC % 0.5, Anisocytosis 2+ 10/26/22 06:05: Sodium 139, Potassium 3.6, Chloride 106, Carbon Dioxide 27.0, Anion Gap 6, BUN 9, Creatinine 0.75, Estim Creat Clear Calc 83.07, Est GFR (MDRD) Af Amer 105, Est GFR (MDRD) Non-Af 87, BUN/Creatinine Ratio 12.0, Glucose 92, Calcium 8.9 Microbiology: Microbiology 10/23/22 16:30 Blood Culture (Wb) - Anticubital Right Blood Culture - Preliminary No growth in 48 hours. 10/23/22 16:30 Blood Culture (Wb) - Anticubital Left Blood Culture - Preliminary No growth in 48 hours. 10/24/22 16:45 Stool Enteric Bacteriology - Final 10/23/22 15:20 Urine, Clean Catch Urine Culture - Final Mixed Gram Positive Organisms 10/23/22 15:00 Stool Stool Occult Blood (BIANKA) - Final Occult Blood Positive D/C Instructions Discharge Diet: 2000 Calorie Control Diet Discharge Activity: Return to Normal Activity Weight Bearing Status: Weight bearing as tolerated Call your doctor if you observe: Fever of 101 or Higher, Shortness of breath, Dizziness, Swelling in the ankles, Chest pain and Increased palpitations (irregular heartbeat) Meaningful Use Info Meaningful Use Diagnoses (Choose all that apply): None applicable Discharge Plan Admission Admit Date/Time: 10/23/22 16:53 Primary Reason for Your Visit: GI bleed due to peptic ulcer disease Attending Provider: Kendal Cameron Primary Care Provider: Tarah Dubon Consulting Providers: Berna Cisneros Instructions Additional Instructions / Restrictions: follow up with your food editor to be evaluated for other types of medication for your rheumatoid arthritis apart from prednisone. Discharge Orders/Prescriptions Prescriptions: New pantoprazole 40 mg Tablet,Delayed Release (Dr/Ec) 40 mg PO BID Qty: 60 2RF sucralfate 1 gram tablet 1 g PO Q6H Qty: 120 1RF Continued bupropion HCl 300 MG tablet extended release 24 hr 300 mg PO DAILY ropinirole 2 MG tablet extended release 24 hr 2 mg PO QHS Xarelto 20 mg tablet 20 mg PO DAILY Label Comments: TAKE 1 TABLET BY MOUTH EVERY DAY WITH SUPPER prednisone 5 mg tablet 10 mg PO DAILY Label Comments: TAKE 2 TABLETS BY MOUTH EVERY DAY. NEEDS OFFICE VISIT fluvoxamine 100 mg tablet 100 mg PO DAILY ferrous sulfate 325 mg (65 mg iron) tablet 325 mg PO DAILY Label Comments: TAKE 1 TABLET BY MOUTH EVERY DAY buspirone 10 mg tablet 10 mg PO DAILY Label Comments: TAKE 1 TABLET BY MOUTH EVERY MORNING AND TAKE 2 TABLETS BY MOUTH AT BEDTIME buspirone 10 mg tablet 20 mg PO QHS Label Comments: TAKE 1 TABLET BY MOUTH EVERY MORNING AND TAKE 2 TABLETS BY MOUTH AT BEDTIME atenolol 50 mg tablet 50 mg PO DAILY Label Comments: TAKE 1 TABLET BY MOUTH EVERY DAY Rexulti 1 mg tablet 1 mg PO DAILY Label Comments: TAKE 1 TABLET BY MOUTH EVERY DAY Probiotic 1 ea PO/SL DAILY biotin 1 ea PO/SL DAILY ondansetron 4 mg tablet,disintegrating 4 mg PO Q8H PRN PRN (Reason: Nausea) Qty: 10 0RF quetiapine [Seroquel] 25 mg Tablet 25 mg PO QHS Discontinued pantoprazole 40 mg tablet,delayed release (DR/EC) 40 mg PO BID Referrals / Follow Up: Tarah Dubon DO [Primary Care Provider] - Within 2 Weeks FriendMichael DO [Med Staff - Active Staff] - Within 2 Weeks Disposition Disposition (needs filled in before D/C Order can be placed): Home, Self Care Charges/Coding Visit Charges Inpatient E&M: 37739 Disch Hosp >30min
== END 2022-10-26 14:06 | disposition home or self-care (01) | DRG 378 ==
LOC: ED 16:42 → PCU 17:04
PROVIDERS: Internal Medicine; Internal Medicine Gastroenterology; Admitting Provider Family Medicine; Emergency Provider Emergency Medicine; PCP Family Medicine; Visit Provider Student in an Organized Health Care Education/Training Program
PROC: 0DJ08ZZ Inspection of Upper Intestinal Tract, Via Natural or Artificial Opening Endoscopic (ICD-10-PCS; CPT 43235; principal; 2022-10-24 10:55)
DX: K25.4 Chronic or unspecified gastric ulcer with hemorrhage (principal); N39.0 Urinary tract infection, site not specified; E72.12 Methylenetetrahydrofolate reductase deficiency; K76.6 Portal hypertension; Z68.43 Body mass index [BMI] 50.0-59.9, adult; E87.1 Hypo-osmolality and hyponatremia; M32.9 Systemic lupus erythematosus, unspecified; I85.00 Esophageal varices without bleeding; E66.01 Morbid (severe) obesity due to excess calories; M06.9 Rheumatoid arthritis, unspecified; K21.9 Gastro-esophageal reflux disease without esophagitis; G25.81 Restless legs syndrome; G47.33 Obstructive sleep apnea (adult) (pediatric); E87.6 Hypokalemia; I10 Essential (primary) hypertension; D50.0 Iron deficiency anemia secondary to blood loss (chronic); K44.9 Diaphragmatic hernia without obstruction or gangrene; F41.9 Anxiety disorder, unspecified; F32.A Depression, unspecified; G89.4 Chronic pain syndrome; R00.0 Tachycardia, unspecified; Z79.01 Long term (current) use of anticoagulants; Z79.52 Long term (current) use of systemic steroids; Z79.899 Other long term (current) drug therapy; Z86.711 Personal history of pulmonary embolism
CPT/HCPCS: 36415; 74176; 80048; 80053; 81001; 82274; 83690; 83735; 85014; 85018; 85025; 86850; 86900; 86901; 86920; 86922; 87040; 87086; 87088; 87506; 87635; 88305; 88342; 93005; 94668; 99252; 99284; J7030; J7040; P9016; A4216; G0463; J2405; J3490; U0003; U0005

== ENCOUNTER 2022-10-31 17:22 | Emergency (ER) | payer MEDICARE, MEDICAID, SELFPAY ==
[2022-10-31 17:23] VITALS: BP 102/89; PULSE 114; RESP 21; TEMP 36.5; O2SAT 98
[2022-10-31 17:36] VITALS: BMI 55.5
--- NOTE | 2022-10-31 17:46 | EDS_ITS ---
HPI HPI - GI History of Present Illness Chief Complaint: Abd Pain Detail of Chief Complaint: Left-sided abdominal pain with bilious appearing emesis Informant: patient Abdominal Pain/Flank Pain Onset: Yesterday Context: Sudden Onset Timing: Continuous Quality: Aching Location: LUQ Current Severity: Mild Maximum Severity: Moderate Worsened by: Food Relieved by: Nothing Nausea/Vomiting/Emesis GI Symptom: Positive for Nausea and Vomiting Onset: Today Quality: Negative for Nonbilious, Blood streaks, Coffee ground or Hematemesis Severity: Moderate Diarrhea/Melena/Hematochezia GI Symptom: Negative for Diarrhea, Melena or Hematochezia Associated Symptoms Associated Symptoms: Negative for Dysuria, Frequency, Hematuria or Urgency Narrative Narrative: Patient is a 51-year-old woman who was admitted last week for bleeding gastric ulcer that was treated with heater probe. Patient contacted Dr. Mcgill, her extraction machine operator, and was instructed to come to the emergency department. She states when she tries to eat or drink anything it does not taste right and she has vomited. She denies hematemesis, melena medic easier. She denies coffee- ground emesis. She denies intolerance to any type of food prior to onset of pain. She reports compliance with her medication. She denies history of biliary disease or pancreatitis. She denies dysuria, frequency, urgency or hematuria. She denies flank pain. 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 Lupus anticoagulant disorder Morbid obesity MTHFR mutation KIKI (obstructive sleep apnea) Pleural effusion, left Pulmonary embolism Rheumatoid arthritis Sinus tachycardia Home Medications bupropion HCl 300 mg 24 hr tablet, extended release 300 mg PO DAILY mental health 08/25/18 [History Last Taken 09/20/22] ropinirole 2 mg tablet,extended release 24 hr 2 mg PO QHS restless legs 08/25/18 [History Last Taken 09/20/22] rivaroxaban 20 mg tablet (Xarelto) 20 mg PO DAILY blood thinner 06/01/22 [History Last Taken 09/20/22] Probiotic 1 ea PO/SL DAILY IMMUNE HEALTH 09/21/22 [History Last Taken 09/20/22] atenolol 50 mg tablet 50 mg PO DAILY HEART 09/21/22 [History Last Taken 09/20/22] biotin 1 ea PO/SL DAILY SUPPLEMENT 09/21/22 [History Last Taken 09/20/22] brexpiprazole 1 mg tablet (Rexulti) 1 mg PO DAILY MENTAL HEALTH 09/21/22 [History Last Taken 09/20/22] buspirone 10 mg tablet 10 mg PO DAILY ANXIETY 09/21/22 [History Last Taken 09/20/22] buspirone 10 mg tablet 20 mg PO QHS ANXIETY 09/21/22 [History Last Taken 09/20/22] ferrous sulfate 325 mg (65 mg iron) tablet 325 mg PO DAILY SUPPLEMENT 09/21/22 [History Last Taken 09/20/22] fluvoxamine 100 mg tablet 100 mg PO DAILY MENTAL HEALTH 09/21/22 [History Last Taken 09/20/22] ondansetron 4 mg disintegrating tablet 4 mg PO Q8H PRN PRN Nausea #10 tabs 09/21/22 [Rx Last Taken Unknown] prednisone 5 mg tablet 10 mg PO DAILY RA 09/21/22 [History Last Taken 09/20/22] quetiapine 25 mg tablet (Seroquel) 25 mg PO QHS sleep 10/23/22 [History Last Taken Unknown] pantoprazole 40 mg tablet,delayed release 40 mg PO BID #60 tabs 10/26/22 [Rx Last Taken Unknown] sucralfate 1 gram tablet 1 g PO Q6H #120 tabs 10/26/22 [Rx Last Taken Unknown] Allergy/AdvReac Type Severity Reaction Status Date / Time adhesive tape AdvReac Rash Verified 10/31/22 17:22 Family History Mother Cancer Lung CA w/ concurrent tobacco use. Heart disease Surgical History History of fasciotomy History of hysterectomy History of total bilateral knee replacement S/P pericardial window creation Social History household members: family Smoking Status: Never smoker alcohol intake: never substance use type: does not use ROS ROS ED Constitutional Constitutional ED: Denies chills, fever(s), subjective, sweats or weight loss ENT ENT ED: Denies ear pain, rhinorrhea or sore throat Cardiovascular Cardiovascular: Denies chest pain, palpitations or racing heartbeat Respiratory/Chest Respiratory/Chest: Denies cough, dyspnea or dyspnea on exertion Gastrointestinal Gastrointestinal: Reports abdominal pain, nausea and vomiting; Denies const ipation, diarrhea or melena Genitourinary Genitourinary ED: Denies dysuria, hematuria or urinary frequency Musculoskeletal Musculoskeletal: Denies arthralgias, back pain, myalgias or neck pain Integumentary Denies Abrasions or rash Neurologic Neurologic: Denies headache(s), paresthesias or weakness Psychiatric Psychiatric: Denies anxiety or depression Hematologic/Lymphatic Hematologic/Lymphatic: Denies easy bleeding or easy bruising EXAM Physical Exam Const Vital Signs: 10/31/22 17:23 10/31/22 17:58 Temperature 97.7 F L Temperature Source Temporal Pulse Rate 114 H Pulse Rate [Lying] 102 H Pulse Rate [Sitting (for 1 minute prior to obtaining)] 103 H Pulse Rate [Standing (for 1 minute prior to obtaining)] 114 H Respiratory Rate 21 H Blood Pressure 102/89 H Blood Pressure [Lying] 117/45 L Blood Pressure [Sitting (for 1 minute prior to obtaining)] 132/60 H Blood Pressure [Standing (for 1 minute prior to obtaining)] 135/65 H Blood Pressure Mean 93 Blood Pressure Mean [Lying] 69 Blood Pressure Mean [Sitting (for 1 minute prior to obtaining)] 84 Blood Pressure Mean [Standing (for 1 minute prior to obtaining)] 88 Pulse Ox 98 Positive well nourished, well developed and obese; Negative for cachectic, contractures or unkempt General Appearance ED: well developed, NAD and pallor; Negative for unkempt, cachectic or contractures Nutritional Appearance: obese; Negative for cachectic HEENT Reports dry mucous membranes normocephalic and atraumatic Mouth ED: Yes dry mucous membranes Mouth: dry mucous membranes Eyes PERRL and EOMs intact bilaterally General Eye ED: Negative for pale conjunctiva or scleral icterus Neck no lymphadenopathy, supple and no JVD Resp normal respiratory effort and clear to auscultation bilaterally Cardio regular rate, regular rhythm, S1 normal heart sound, S2 normal heart sound and no murmurs GI non-distended and no masses; Negative for non-tender Auscultation: hypoactive bowel sounds Palpation: soft and tender LUQ; Negative for guarding, rigid, hepatomegaly, splenomegaly, mass, pulsatile mass or rebound tenderness present Back/Spine no CVA tenderness Thoracic Spine / Upper Back: Negative for thoracic spinal tenderness Lumbar Spine / Lower Back: Negative for lumbar spinal tenderness Extremity Extremity Narrative: Scar noted left lower leg secondary to compartment syndrome. This occurred in 2019. She was operated on by Dr. Nghia Kent. General Extremety ED: Yes edema General Extremity: edema Neuro CN's II-XII intact bilaterally, moves all extremities and no sensory deficits noted Sensorium / Orientation: alert Psych mental status grossly normal and thought process normal Appearance: Negative for unkempt Skin no wounds General Skin Exam: pallor; Negative for jaundice Lesions: no lesions Rashes: no rashes MDM MDM MDM Narrative Medical decision making narrative: Was recently admitted for gastric ulcer that required heat probe therapy. Patient did require transfusion of blood because of blood loss. With her having left upper quadrant pain we will need to assess for pancreatitis and will obtain liver enzymes since most common cause of pancreatitis is gallstones. Patient received IV Pepcid. Records from most recent hospitalization as well hospitalization and May 2022 for pneumonia was reviewed and when she was admitted for compartment syndrome. We will compare test results from today to most recent at the time of discharge. Since patient reports symptoms and is tachycardic we will have nurse assess for orthostatic hypotension. Lab Data Attestation: I reviewed the patient's lab results. Lab results narrative: H&H is 8.4 and 30.8 which is improved from prior. Comprehensive metabolic panel is unremarkable. Lipase is elevated 104 which is approximately 1.4 times normal. This is nondiagnostic. Patient had a lipase of 203 in the past. Labs: Laboratory Results - last 24 hr 10/31/22 10/31/22 17:53 17:53 WBC 6.7 RBC 3.63 L Hgb 8.4 L Hct 30.8 L MCV 84.8 MCH 23.1 L MCHC 27.3 L RDW Std Deviation 71.9 H RDW Coeff of Chepe 23.5 H Plt Count 606 H MPV 9.0 Immature Gran % (Auto) 0.300 Neut % (Auto) 55.5 Lymph % (Auto) 30.1 Ada % (Auto) 11.6 H Eos % (Auto) 2.1 Baso % (Auto) 0.4 Absolute Neuts (auto) 3.7 Absolute Lymphs (auto) 2.02 Nucleated RBC % 0 Differential Comment SCANNED Hypochromasia 2+ Anisocytosis 2+ Sodium 138 Potassium 3.6 Chloride 105 Carbon Dioxide 27.0 Anion Gap 6 BUN 8 Creatinine 0.90 Estim Creat Clear Calc 69.23 Est GFR (MDRD) Af Amer 85 Est GFR (MDRD) Non-Af 70 BUN/Creatinine Ratio 8.9 L Glucose 88 Calcium 9.8 Total Bilirubin 0.30 Direct Bilirubin 0.08 AST 14 L ALT 19 Alkaline Phosphatase 81 Total Protein 7.9 Albumin 2.7 L Globulin 5.2 H Lipase 104 H Treatment and Re-Evaluation :: Orthostatic vital signs were normal. Case was discussed with Dr. Mcgill. He states he was told that she was having chest pain and recently sent her in. Patient does not have chest pain. He was informed of physical findings and laboratory results. Plan is to follow-up with him as scheduled. Discharge Plan Triage Chief Complaint: Abd Pain ED Provider: Santino Duran Dx/Rx/DC Orders Clinical Impression: Left sided abdominal pain of unknown cause, Bilateral lower extremity edema, Morbid obesity, KIKI (obstructive sleep apnea), Hx of gastric ulcer Instructions: ED Abdominal Pain Unkn Cause Fem Prescriptions: No Action bupropion HCl 300 MG tablet extended release 24 hr 300 mg PO DAILY ropinirole 2 MG tablet extended release 24 hr 2 mg PO QHS Xarelto 20 mg tablet 20 mg PO DAILY Label Comments: TAKE 1 TABLET BY MOUTH EVERY DAY WITH SUPPER prednisone 5 mg tablet 10 mg PO DAILY Label Comments: TAKE 2 TABLETS BY MOUTH EVERY DAY. NEEDS OFFICE VISIT fluvoxamine 100 mg tablet 100 mg PO DAILY ferrous sulfate 325 mg (65 mg iron) tablet 325 mg PO DAILY Label Comments: TAKE 1 TABLET BY MOUTH EVERY DAY buspirone 10 mg tablet 10 mg PO DAILY Label Comments: TAKE 1 TABLET BY MOUTH EVERY MORNING AND TAKE 2 TABLETS BY MOUTH AT BEDTIME buspirone 10 mg tablet 20 mg PO QHS Label Comments: TAKE 1 TABLET BY MOUTH EVERY MORNING AND TAKE 2 TABLETS BY MOUTH AT BEDTIME atenolol 50 mg tablet 50 mg PO DAILY Label Comments: TAKE 1 TABLET BY MOUTH EVERY DAY Rexulti 1 mg tablet 1 mg PO DAILY Label Comments: TAKE 1 TABLET BY MOUTH EVERY DAY Probiotic 1 ea PO/SL DAILY biotin 1 ea PO/SL DAILY ondansetron 4 mg tablet,disintegrating 4 mg PO Q8H PRN PRN (Reason: Nausea) Qty: 10 0RF quetiapine [Seroquel] 25 mg Tablet 25 mg PO QHS pantoprazole 40 mg Tablet,Delayed Release (Dr/Ec) 40 mg PO BID Qty: 60 2RF sucralfate 1 gram tablet 1 g PO Q6H Qty: 120 1RF Primary Care Provider: Tarah Dubon Referrals: Tarah Dubon DO [Primary Care Provider] - Friend,DO Michael [Med Staff - Active Staff] - Keep Olya appointment Disposition Disposition: Home, Self Care
[2022-10-31] MEDS: Famotidine 200 MG/20 ML MDV 20 MG in 0.9% Normal Saline (Pres. free 8 ML 300 MG IV (17:57)
[2022-10-31 17:58] VITALS: BP 117/45; BP 132/60; BP 135/65; PULSE 102; PULSE 103; PULSE 114
[2022-10-31 17:58] LABS: Absolute Lymphocyte Count 2.02 X10^3/uL (0.83-4.51); Absolute Neutrophil Count 3.7 X10^3/uL (2.0-7.7); Basophil# 0.03 X10^3/uL; Basophil% 0.4 % (0-1); Eosinophil# 0.14 X10^3/uL; Eosinophils% 2.1 % (0-5); Hematocrit 30.8 % (37-47); Hemoglobin 8.4 g/dL (12.0-15.0); Lymphocyte # 2.02 X10^3/ul (0.83-4.51); Lymphocyte % 30.1 % (19-41); Mean Corp Hgb Conc 27.3 g/dL (32-36); Mean Corpuscular Hgb 23.1 pg (27.0-32.0); Mean Corpuscular Volume 84.8 fL (81-99); Monocyte# 0.78 X10^3/uL; Monocyte% 11.6 % (0-10); NRBC Flagged by Analyzer 0 % (0-5); Neutrophil # 3.71 X10^3/uL (2.7-7.7); Neutrophil % 55.5 % (47-70); POSITIVE MORPHOLOGY YES; Platelet Count 606 K/mm3 (150-450); RBC Distribution Width CV 23.5 % (11.6-14.6); RBC Distribution Width SD 71.9 fl (35.1-43.9); Red Blood Count 3.63 M/mm3 (4.2-5.4); White Blood Count 6.7 K/mm3 (4.4-11.0)
[2022-10-31 18:08] LABS: Differential Indicated SCAN CRITERIA MET
[2022-10-31 18:17] LABS: AST(SGOT) 14 U/L (15-37); Alanine Aminotransfer ALT/SGPT 19 U/L (13-56); Albumin, Serum 2.7 g/dL (3.2-5.0); Alkaline Phosphatase 81 U/L (45-117); Anion Gap 6 (5-15); BUN 8 mg/dL (7-18); BUN/Creat Ratio 8.9 RATIO (10-20); Bilirubin, Direct 0.08 mg/dL (0.00-0.30); Calcium,Total 9.8 mg/dL (8.5-10.1); Chloride 105 mmol/L (98-107); EST Glomerular Filtration Rate 70 mL/min (>60); Est Glom Filt Rate - Afr Amer 85 mL/min (>60); Estimated Creatinine Clearance 69.23 ml/min; Globulin 5.2 g/dL (2.2-4.2); Glucose 88 mg/dL (74-106); Lipase 104 U/L (13-75); Potassium 3.6 mmol/L (3.5-5.1); Protein, Total 7.9 g/dL (6.4-8.2); Sodium Level 138 mmol/L (136-145)
[2022-10-31 18:32] LABS: Anisocytosis 2+; Differential Comment SCANNED; Hypochromasia 2+
== END 2022-10-31 20:03 | disposition home or self-care (01) ==
PROVIDERS: Emergency Provider Emergency Medicine; PCP Family Medicine; Referring Provider Emergency Medicine; Visit Provider Emergency Medicine
DX: R10.12 Left upper quadrant pain (principal); E66.01 Morbid (severe) obesity due to excess calories; M79.89 Other specified soft tissue disorders; G47.33 Obstructive sleep apnea (adult) (pediatric); Z86.711 Personal history of pulmonary embolism
CPT/HCPCS: 80048; 80076; 83690; 85025; 96365; 99284; A4216; J3490

== ENCOUNTER 2023-01-25 18:37 | Emergency (ER) | payer MEDICARE, MEDICAID, SELFPAY ==
[2023-01-25] VITALS (28 sets, daily range): BP systolic 98–135; BP diastolic 44–67; PULSE 79–104; RESP 16–34; TEMP 36.2–36.8; O2SAT 16–98; BMI 54.8
--- NOTE | 2023-01-25 18:59 | EKG12_ITS ---
Test Reason : Blood Pressure : / mmHG Vent. Rate : 089 BPM Atrial Rate : 089 BPM P-R Int : 136 ms QRS Dur : 082 ms QT Int : 346 ms P-R-T Axes : 033 020 059 degrees QTc Int : 420 ms Normal sinus rhythm Cannot rule out Anterior infarct , age undetermined Abnormal ECG Confirmed by ROBBIE LEON, SHEELA ([id number]), production editor GILBERT ZHOU ([id number]) on 01/28/2023 1:19:01 PM Referred By: Confirmed By:JOZEF AVALOS MD
--- NOTE | 2023-01-25 19:00 | EDS_ITS ---
HPI History of Present Illness Chief Complaint: Abn Labs Detail of Chief Complaint: Anemia Informant: patient Narrative Narrative: Patient presented to her PCP office today with bilateral lower extremity swelling, chest heaviness, shortness of breath. She states that when she first stands up she will get lightheaded and dizzy. Labwork was sent from the office and her hemoglobin was found to be 7.5. She was sent to the ER due to concern for GI bleed and needing a transfusion. Patient was admitted in October for a bleeding ulcer. When I review her prior labs between May of last year in October of this year her hemoglobin averaged in the mid 7 range. She is unsure if it has been checked since that time but states that last it was checked she was told it was going up. Patient is reportedly supposed to be taking iron but cop[place] s not been on this recently. Her stools are black in color. Her iron test today was low with a value of 8. [facility] Medical History Anemia Anxiety and depression Gastroparesis GERD (gastroesophageal reflux disease) correction current use of anticoagulant Lupus anticoagulant disorder Morbid obesity MTHFR mutation KIKI (obstructive sleep apnea) Pleural effusion, left Pulmonary embolism Rheumatoid arthritis Sinus tachycardia Home Medications bupropion HCl 300 mg 24 hr tablet, extended release 300 mg PO DAILY mental health 08/25/18 [History Last Taken 09/20/22] ropinirole 2 mg tablet,extended release 24 hr 2 mg PO QHS restless legs 08/25/18 [History Last Taken 09/20/22] rivaroxaban 20 mg tablet (Xarelto) 20 mg PO DAILY blood thinner 06/01/22 [History Last Taken 09/20/22] Probiotic 1 ea PO/SL DAILY IMMUNE HEALTH 09/21/22 [History Last Taken 09/20/22] atenolol 50 mg tablet 50 mg PO DAILY HEART 09/21/22 [History Last Taken 09/20/22] biotin 1 ea PO/SL DAILY SUPPLEMENT 09/21/22 [History Last Taken 09/20/22] brexpiprazole 1 mg tablet (Rexulti) 1 mg PO DAILY MENTAL HEALTH 09/21/22 [History Last Taken 09/20/22] buspirone 10 mg tablet 10 mg PO DAILY ANXIETY 09/21/22 [History Last Taken 09/20/22] buspirone 10 mg tablet 20 mg PO QHS ANXIETY 09/21/22 [History Last Taken 09/20/22] ferrous sulfate 325 mg (65 mg iron) tablet 325 mg PO DAILY SUPPLEMENT 09/21/22 [History Last Taken 09/20/22] fluvoxamine 100 mg tablet 100 mg PO DAILY MENTAL HEALTH 09/21/22 [History Last Taken 09/20/22] ondansetron 4 mg disintegrating tablet 4 mg PO Q8H PRN PRN Nausea #10 tabs 09/21/22 [Rx Last Taken Unknown] prednisone 5 mg tablet 10 mg PO DAILY RA 09/21/22 [History Last Taken 09/20/22] quetiapine 25 mg tablet (Seroquel) 75 mg PO QHS sleep 10/23/22 [History Last Taken Unknown] pantoprazole 40 mg tablet,delayed release 40 mg PO BID #60 tabs 10/26/22 [Rx Last Taken Unknown] sucralfate 1 gram tablet 1 g PO Q6H #120 tabs 10/26/22 [Rx Last Taken Unknown] promethazine 25 mg tablet 25 mg PO Q6H PRN nausea and vomiting #120 tabs 11/01/22 [Rx Last Taken Unknown] scopolamine base 1 mg over 3 days transdermal patch 1 patch transdermal Q3D PRN nausea and vomiting #10 ea 11/09/22 [Rx Last Taken Unknown] triamcinolone acetonide 0.025 % topical cream 1 applic topical BID #15 grams 11/29/22 [Rx Last Taken Unknown] Allergy/AdvReac Type Severity Reaction Status Date / Time adhesive tape AdvReac Rash Verified 10/31/22 17:22 Family History Mother Cancer Lung CA w/ concurrent tobacco use. Heart disease Surgical History History of fasciotomy History of hysterectomy History of total bilateral knee replacement S/P pericardial window creation Social History household members: family Smoking Status: Never smoker alcohol intake: never substance use type: does not use ROS ROS ED Constitutional Constitutional ED: Denies chills or fever(s) Eyes Eyes: Denies change in vision or discharge from eye(s) ENT ENT ED: Denies discharge from eye(s), rhinorrhea or sore throat Cardiovascular Cardiovascular: Reports chest pain; Denies palpitations Respiratory/Chest Respiratory/Chest: Reports dyspnea; Denies cough Gastrointestinal Gastrointestinal: Reports other Details: Black stools. ; Denies abdominal pain, nausea or vomiting Genitourinary Genitourinary ED: Denies dysuria Musculoskeletal Musculoskeletal: Reports extremity pain; Denies back pain Integumentary Denies Abrasions or rash Neurologic Neurologic: Denies headache(s) or weakness Psychiatric Psychiatric: Denies anxiety or depression Allergic/Immunologic Allergic/Immunologic ED: Denies lip swelling or urticaria EXAM Physical Exam Const Vital Signs: 01/25/23 18:37 01/25/23 18:47 01/25/23 19:41 Temperature 97.6 F L Temperature Source Temporal Pulse Rate 104 H 88 Respiratory Rate 20 H 25 H Respiratory Effort Short of Breath Respiratory Pattern Normal Blood Pressure 135/67 H 98/54 L Blood Pressure Mean 89 68 Blood Pressure Source Blood Pressure Position Blood Pressure Location Pulse Ox 97 94 Oxygen Delivery Method Room Air Room Air 01/25/23 20:17 01/25/23 20:31 01/25/23 19:13 Temperature Temperature Source Pulse Rate 91 79 90 Respiratory Rate 21 H 20 H 19 H Respiratory Effort Respiratory Pattern Blood Pressure 122/56 H 106/44 L Blood Pressure Mean 78 64 Blood Pressure Source Blood Pressure Position Blood Pressure Location Pulse Ox 90 Oxygen Delivery Method Room Air Room Air 01/25/23 19:15 01/25/23 19:20 01/25/23 19:30 Temperature Temperature Source Pulse Rate 89 89 89 Respiratory Rate 22 H 26 H 29 H Respiratory Effort Respiratory Pattern Blood Pressure 107/60 98/54 L Blood Pressure Mean 73 67 Blood Pressure Source Blood Pressure Position Blood Pressure Location Pulse Ox 89 Oxygen Delivery Method 01/25/23 19:40 01/25/23 19:45 01/25/23 19:50 Temperature Temperature Source Pulse Rate 88 89 91 Respiratory Rate 29 H 34 H 23 H Respiratory Effort Respiratory Pattern Blood Pressure 108/56 L Blood Pressure Mean 68 Blood Pressure Source Blood Pressure Position Blood Pressure Location Pulse Ox 90 Oxygen Delivery Method 01/25/23 20:00 01/25/23 20:15 01/25/23 20:16 Temperature Temperature Source Pulse Rate 88 89 Respiratory Rate 26 H 31 H Respiratory Effort Respiratory Pattern Blood Pressure 107/62 122/56 H Blood Pressure Mean 74 71 Blood Pressure Source Blood Pressure Position Blood Pressure Location Pulse Ox 86 Oxygen Delivery Method 01/25/23 20:20 01/25/23 20:30 01/25/23 20:40 Temperature Temperature Source Pulse Rate 88 79 85 Respiratory Rate 27 H 22 H 18 Respiratory Effort Respiratory Pattern Blood Pressure 106/44 L Blood Pressure Mean 63 Blood Pressure Source Blood Pressure Position Blood Pressure Location Pulse Ox Oxygen Delivery Method 01/25/23 20:50 01/25/23 21:00 01/25/23 21:10 Temperature Temperature Source Pulse Rate 84 84 83 Respiratory Rate 17 16 26 H Respiratory Effort Respiratory Pattern Blood Pressure Blood Pressure Mean Blood Pressure Source Blood Pressure Position Blood Pressure Location Pulse Ox 96 Oxygen Delivery Method 01/25/23 22:12 01/25/23 22:23 01/25/23 22:37 Temperature 97.9 F 98.3 F Temperature Source Oral Oral Pulse Rate 85 81 83 Respiratory Rate 31 H 21 H 16 Respiratory Effort Respiratory Pattern Blood Pressure 105/57 L 105/57 L 115/53 L Blood Pressure Mean 73 73 73 Blood Pressure Source Monitor Monitor Blood Pressure Position Semi-Fowlers Semi-Fowlers Blood Pressure Location Right Arm Right Arm Pulse Ox 91 94 16 Oxygen Delivery Method Room Air Room Air Room Air 01/25/23 22:38 01/25/23 22:48 01/25/23 23:09 Temperature 98.3 F Temperature Source Oral Pulse Rate 82 83 79 Respiratory Rate 22 H 17 18 Respiratory Effort Respiratory Pattern Blood Pressure 110/56 L 111/63 119/48 L Blood Pressure Mean 74 79 71 Blood Pressure Source Monitor Blood Pressure Position Semi-Fowlers Blood Pressure Location Right Arm Pulse Ox 98 96 92 Oxygen Delivery Method Room Air Room Air Room Air Positive well nourished and well developed General Appearance ED: well developed HEENT Reports moist mucous membranes Eyes PERRL and EOMs intact bilaterally Neck no lymphadenopathy Chest Wall inspection of chest normal and palpation of chest normal Resp normal respiratory effort and clear to auscultation bilaterally Cardio regular rate and regular rhythm GI normal to inspection, nondistended, normoactive bowel sounds GI Narrative: Rectal examination is performed. Rectal vault is empty. I did swab the gel on my gloved finger from her rectal exam and sent this for testing. Extremity Extremity Narrative: 2-3+ bilateral lower extremity edema, symmetric. Old fasciotomy scar noted on the left lower leg. Neuro oriented x3 and no sensory deficits noted Motor Exam: strength 5/5 throughout Psych mental status grossly normal Skin no rashes or lesions noted MDM MDM MDM Narrative Medical decision making narrative: Patient's lab work from earlier today is reviewed. As I did need to type and screen her I chose to repeat her blood work. I also added BNP and troponin given the patient is having chest pressure and shortness of breath. EKG obtained to evaluate for cardiac arrhythmia/ischemia. History & Record Review Discussion w/independent historian: Patient Additional record(s) reviewed:: Prior inpatient record and Prior labs Lab Data Attestation: I reviewed the patient's lab results. Labs: Laboratory Results - last 24 hr 01/25/23 19:12 WBC 10.8 RBC 3.15 L Hgb 7.3 L Hct 25.9 L MCV 82.2 MCH 23.2 L MCHC 28.2 L RDW Std Deviation 55.8 H RDW Coeff of Chepe 18.6 H Plt Count 579 H MPV 9.4 Immature Gran % (Auto) 0.500 Neut % (Auto) 72.2 H Lymph % (Auto) 20.3 [place] % (Auto) 4.8 Eos % (Auto) 1.6 Baso % (Auto) 0.6 Absolute Neuts (auto) 7.8 H Absolute Lymphs (auto) 2.19 Nucleated RBC % 0 PT 17.0 H INR 1.4 APTT 34.4 Sodium 139 Potassium 4.0 Chloride 104 Carbon Dioxide 28.0 Anion Gap 7 BUN 16 Creatinine 1.08 H Estim Creat Clear Calc 57.04 Est GFR (MDRD) Af Amer 69 Est GFR (MDRD) Non-Af 57 L BUN/Creatinine Ratio 14.8 Glucose 100 Calcium 9.3 Troponin I High Sens 4 B-Natriuretic Peptide 106.6 H Blood Type O POSITIVE Antibody Screen NEGATIVE Crossmatch See Detail EKG Initial EKG: Attestation: I personally reviewed and interpreted this EKG as follows: Interpretation: Sinus Rhythm (Sinus 89 with no acute ischemia.) Treatment and Re-Evaluation :: CBC was a white count of 10.8 with a hemoglobin of 7.3 and hematocrit of 25.9. Platelet count is 579. As previously mentioned, when the patient was admitted both last May as well as in October her hemoglobin averaged in the mid 7 range. Unfortunately her hemoglobin has not been rechecked in the last 2 to 3 months to see what level she was able to achieve after her gastric ulcers were treated. Chemistry studies reveal normal BUN at 16 with a creatinine 1.08. BNP is 106. Troponin is normal at 4. EKG per my interpretation is sinus rhythm with no ischemia. Stool guaiac was negative. I did review the labs from earlier today which did include her iron level to be very low at 8. Patient is known to Dr. Mcgill. I spoke with him and reviewed her current labs and presentation. Given that the patient's hemoglobin is stable with her prior values from May and October and the patient's guaiac is negative, Dr. Mcgill does not feel the patient necessarily needs to be admitted to the hospital. His primary concern is that her iron is still low she is not able to make blood. He recommended giving her 2 doses of Venofer here along with 1 unit of packed RBCs and discharging her to home tonight. Patient has agreed to stay for 1 dose of Venofer and a unit of packed RBCs. She states that she will be able to arrange outpatient iron infusions through her PCP. Patient was given her normal evening dose of medications. Patient be signed out to oncoming physician for further observation while awaiting her transfusion completion. She will be discharged home at the completion of this. Discharge Plan Triage Chief Complaint: Abn Labs ED Provider: Maame Palmer Dx/Rx/DC Orders Clinical Impression: Anemia, Iron deficiency Instructions: ED Anemia, Iron-Deficiency (Adult) Prescriptions: No Action scopolamine base 1 mg over 3 days patch 3 day 1 patch transdermal Q3D PRN (Reason: nausea and vomiting) Qty: 10 1RF bupropion HCl 300 MG tablet extended release 24 hr 300 mg PO DAILY ropinirole 2 MG tablet extended release 24 hr 2 mg PO QHS Xarelto 20 mg tablet 20 mg PO DAILY Patient Comments: TAKE 1 TABLET BY MOUTH EVERY DAY WITH SUPPER prednisone 5 mg tablet 10 mg PO DAILY Patient Comments: TAKE 2 TABLETS BY MOUTH EVERY DAY. NEEDS OFFICE VISIT fluvoxamine 100 mg tablet 100 mg PO DAILY ferrous sulfate 325 mg (65 mg iron) tablet 325 mg PO DAILY Patient Comments: TAKE 1 TABLET BY MOUTH EVERY DAY buspirone 10 mg tablet 10 mg PO DAILY Patient Comments: TAKE 1 TABLET BY MOUTH EVERY MORNING AND TAKE 2 TABLETS BY MOUTH AT BEDTIME buspirone 10 mg tablet 20 mg PO QHS Patient Comments: TAKE 1 TABLET BY MOUTH EVERY MORNING AND TAKE 2 TABLETS BY MOUTH AT BEDTIME atenolol 50 mg tablet 50 mg PO DAILY Patient Comments: TAKE 1 TABLET BY MOUTH EVERY DAY Rexulti 1 mg tablet 1 mg PO DAILY Patient Comments: TAKE 1 TABLET BY MOUTH EVERY DAY Probiotic 1 ea PO/SL DAILY biotin 1 ea PO/SL DAILY ondansetron 4 mg tablet,disintegrating 4 mg PO Q8H PRN PRN (Reason: Nausea) Qty: 10 0RF quetiapine [Seroquel] 25 mg Tablet 75 mg PO QHS pantoprazole 40 mg Tablet,Delayed Release (Dr/Ec) 40 mg PO BID Qty: 60 2RF sucralfate 1 gram tablet 1 g PO Q6H Qty: 120 1RF promethazine 25 mg tablet 25 mg PO Q6H PRN (Reason: nausea and vomiting) Qty: 120 0RF triamcinolone acetonide 0.025 % cream 1 applic topical BID Qty: 15 0RF Primary Care Provider: Tarah Dubon Referrals: Tarah Dubon DO [Primary Care Provider] - As soon as possible Michael Mcgill DO [Med Staff - Active Staff] - 1-2 Weeks Activity Restrictions/Additional Instructions: As discussed, please contact your primary care physician to arrange for iron infusions. Please follow-up Dr. Mcgill within the next couple of weeks. Return to the ER for further weakness, dizziness, drop in blood counts. Disposition Disposition: Home, Self Care
[2023-01-25] MEDS: proMETHazine 25 MG/ML Syringe 12.5 MG IM (19:21)
[2023-01-25 19:41] LABS: Absolute Lymphocyte Count 2.19 X10^3/uL (0.83-4.51); Absolute Neutrophil Count 7.8 X10^3/uL (2.0-7.7); Basophil# 0.07 X10^3/uL; Basophil% 0.6 % (0-1); Eosinophil# 0.17 X10^3/uL; Eosinophils% 1.6 % (0-5); Hematocrit 25.9 % (37-47); Hemoglobin 7.3 g/dL (12.0-15.0); Lymphocyte # 2.19 X10^3/ul (0.83-4.51); Lymphocyte % 20.3 % (19-41); Mean Corp Hgb Conc 28.2 g/dL (32-36); Mean Corpuscular Hgb 23.2 pg (27.0-32.0); Mean Corpuscular Volume 82.2 fL (81-99); Mean Platelet Vol. 9.4 fl (6.2-12.0); Monocyte# 0.52 X10^3/uL; Monocyte% 4.8 % (0-10); NRBC Flagged by Analyzer 0 % (0-5); Neutrophil # 7.79 X10^3/uL (2.7-7.7); Neutrophil % 72.2 % (47-70); Platelet Count 579 K/mm3 (150-450); RBC Distribution Width CV 18.6 % (11.6-14.6); RBC Distribution Width SD 55.8 fl (35.1-43.9); Red Blood Count 3.15 M/mm3 (4.2-5.4); White Blood Count 10.8 K/mm3 (4.4-11.0)
[2023-01-25 19:47] LABS: International Normalized Ratio 1.4
[2023-01-25 19:48] LABS: Partial Thromboplast Time 34.4 Seconds (24.1-36.2)
[2023-01-25 19:51] LABS: Anion Gap 7 (5-15); BUN 16 mg/dL (7-18); BUN/Creat Ratio 14.8 RATIO (10-20); Calcium,Total 9.3 mg/dL (8.5-10.1); Chloride 104 mmol/L (98-107); Creatinine, Serum 1.08 mg/dL (0.55-1.02); EST Glomerular Filtration Rate 57 mL/min (>60); Est Glom Filt Rate - Afr Amer 69 mL/min (>60); Estimated Creatinine Clearance 57.04 ml/min; Glucose 100 mg/dL (74-106); Sodium Level 139 mmol/L (136-145); Troponin-I HS 4 pg/mL (3.0-54.0)
[2023-01-25 20:02] LABS: BNP,B-Type NATRIURETIC PEPTIDE 106.6 pg/mL (0-100)
--- NOTE | 2023-01-25 21:16 | ED.RN ---
PT CALLS OUT USING CALL LIGHT STATING THAT SHE WANTS TO DO IRON INFUSION OUTPATIENT. PT STATES I DO NOT WANT TO SIT HERE ANY LONGER. I'M BORED AND I'M HUNGRY. I HAVE DONE INFUSIONS AT [facility] BEFORE. THIS RN RELAYS INFORMATION TO DR. KIMBLE. DR KIMBLE STATES THAT PT IS WELCOME TO SIGN OUT AMA BUT DR. COTTRELL WANTS PATIENT TO RECEIVE IRON AND BLOOD BEFORE GOING HOME. PT UPDATED AND STATES SHE IS ANXIOUS AND WANTS HER BEDTIME MEDS ORDERED SINCE SHE WAS TO TAKE THEM AT 1999. THIS RN ASKS DR. KIMBLE, DR KIMBLE AGREES. PRIMARY NURSE JARED UPDATED
--- NOTE | 2023-01-25 22:11 | ED.RN ---
PER DR. KIMBLE VERBAL ORDER, OKAY TO GIVEN IRON INFUSION AND BLOOD INFUSION AT THE SAME TIME IN SEPARATE IV.
--- NOTE | 2023-01-25 22:28 | ED.RN ---
BLOOD INITIATED/CHECKED WITH Christina HILLMAN RN.
[2023-01-25] MEDS: QUEtiapine 25 MG Tablet 75 MG PO (23:23)
[2023-01-25] MEDS: Sucralfate 1 GM Tablet PO (23:23)
[2023-01-25] MEDS: Rivaroxaban 20 MG Tablet PO (23:25)
[2023-01-25] MEDS: busPIRone 5 MG Tablet 20 MG PO (23:25)
[2023-01-25] MEDS: Pramipexole Di-HCl 1 MG Tablet PO (23:26)
[2023-01-25] MEDS: Pantoprazole Sodium 40 MG Tablet PO (23:26)
[2023-01-26 00:51] VITALS: BP 124/55; PULSE 87; RESP 118; TEMP 36.6
[2023-01-26 01:12] VITALS: BP 124/55; PULSE 84; RESP 15; TEMP 36.2; O2SAT 95
== END 2023-01-26 01:13 | disposition home or self-care (01) ==
PROVIDERS: Emergency Provider Emergency Medicine; PCP Family Medicine; Visit Provider Emergency Medicine
DX: D50.9 Iron deficiency anemia, unspecified (principal); R06.02 Shortness of breath; G47.33 Obstructive sleep apnea (adult) (pediatric); F41.9 Anxiety disorder, unspecified; F32.A Depression, unspecified; K21.9 Gastro-esophageal reflux disease without esophagitis; Z79.899 Other long term (current) drug therapy; Z79.01 Long term (current) use of anticoagulants; Z86.711 Personal history of pulmonary embolism
CPT/HCPCS: 36430; 80048; 82274; 83880; 84484; 85025; 85610; 85730; 86850; 86900; 86901; 86920; 93005; 96365; 96366; 96372; 99285; J7040; J7050; P9016; A4216; J2916

== ENCOUNTER 2023-03-11 06:53 | Emergency (ER) | payer MEDICARE, MEDICAID, SELFPAY ==
[2023-03-11] VITALS (17 sets, daily range): BP systolic 128–142; BP diastolic 46–78; PULSE 76–105; RESP 15–38; TEMP 35.8; O2SAT 88–97; BMI 54.9
--- NOTE | 2023-03-11 07:14 | EDS_ITS ---
HPI History of Present Illness Chief Complaint: Palpitations Onset/Context/Timing Onset: Weeks (1) Context: Sudden Onset Timing: Intermittent and Lasts (2 minutes) Quality: Wiggling Location: Left chest Worsened by: Nothing Relieved by: Nothing Narrative Narrative: Patient presents with palpitations that have been intermittent over the past week. Patient states that the last approximate 2 minutes when they come on. Patient describes it as a wiggling feeling. Patient states it is mainly over the left side of her chest. Patient states they come on all of a sudden. Patient states nothing makes it better and nothing makes it worse. Patient admits to some lightheadedness with it. Patient also admits to some nausea and diaphoresis with the palpitations. Patient denies any fevers or chills. Patient denies any cough or shortness of breath. [facility] Medical History Anemia Anxiety and depression Gastroparesis GERD (gastroesophageal reflux disease) History of pulmonary embolism Iron deficiency anemia due to chronic blood loss assisted current use of anticoagulant Lupus anticoagulant disorder Morbid obesity MTHFR mutation KIKI (obstructive sleep apnea) Pleural effusion, left Pulmonary embolism Rheumatoid arthritis Sinus tachycardia Home Medications bupropion HCl 300 mg 24 hr tablet, extended release 300 mg PO DAILY mental health 08/25/18 [History Last Taken 09/20/22] ropinirole 2 mg tablet,extended release 24 hr 2 mg PO QHS restless legs 08/25/18 [History Last Taken 09/20/22] rivaroxaban 20 mg tablet (Xarelto) 20 mg PO DAILY blood thinner 06/01/22 [History Last Taken 09/20/22] Probiotic 1 ea PO/SL DAILY IMMUNE HEALTH 09/21/22 [History Last Taken 09/20/22] atenolol 50 mg tablet 50 mg PO DAILY HEART 09/21/22 [History Last Taken 09/20/22] biotin 1 ea PO/SL DAILY SUPPLEMENT 09/21/22 [History Last Taken 09/20/22] brexpiprazole 1 mg tablet (Rexulti) 1 mg PO DAILY MENTAL HEALTH 09/21/22 [History Last Taken 09/20/22] buspirone 10 mg tablet 10 mg PO DAILY ANXIETY 09/21/22 [History Last Taken 09/20/22] buspirone 10 mg tablet 20 mg PO QHS ANXIETY 09/21/22 [History Last Taken 09/20/22] ferrous sulfate 325 mg (65 mg iron) tablet 325 mg PO DAILY SUPPLEMENT 09/21/22 [History Last Taken 09/20/22] fluvoxamine 100 mg tablet 100 mg PO DAILY MENTAL HEALTH 09/21/22 [History Last Taken 09/20/22] ondansetron 4 mg disintegrating tablet 4 mg PO Q8H PRN PRN Nausea #10 tabs 09/21/22 [Rx Last Taken Unknown] prednisone 5 mg tablet 10 mg PO DAILY RA 09/21/22 [History Last Taken 09/20/22] quetiapine 25 mg tablet (Seroquel) 75 mg PO QHS sleep 10/23/22 [History Last Taken Unknown] pantoprazole 40 mg tablet,delayed release 40 mg PO BID #60 tabs 10/26/22 [Rx Last Taken Unknown] sucralfate 1 gram tablet 1 g PO Q6H #120 tabs 10/26/22 [Rx Last Taken Unknown] scopolamine base 1 mg over 3 days transdermal patch 1 patch transdermal Q3D PRN nausea and vomiting #10 ea 11/09/22 [Rx Last Taken Unknown] triamcinolone acetonide 0.025 % topical cream 1 applic topical BID #15 grams 11/29/22 [Rx Last Taken Unknown] promethazine 25 mg tablet 25 mg PO Q6H PRN nausea and vomiting #120 tabs 02/06/23 [Rx Last Taken Unknown] ascorbic acid (vitamin C) 1,000 mg tablet (C-1000) 1 g PO DAILY 03/05/23 [History Last Taken Unknown] Allergy/AdvReac Type Severity Reaction Status Date / Time adhesive tape AdvReac Rash Verified 03/11/23 07:00 Family History Mother Cancer Lung CA w/ concurrent tobacco use. Heart disease Surgical History History of fasciotomy History of hysterectomy History of total bilateral knee replacement S/P pericardial window creation Social History household members: family Smoking Status: Never smoker alcohol intake: never substance use type: does not use ROS ROS ED Constitutional Constitutional ED: Reports sweats; Denies chills or fever(s) Eyes Eyes: Denies blurry vision or change in vision ENT ENT ED: Denies rhinorrhea or sore throat Cardiovascular Cardiovascular: Reports palpitations; Denies chest pain Respiratory/Chest Respiratory/Chest: Denies cough or dyspnea Gastrointestinal Gastrointestinal: Reports nausea; Denies vomiting Genitourinary Genitourinary ED: Denies dysuria or hematuria Musculoskeletal Musculoskeletal: Denies back pain or neck pain Integumentary Reports rash; Denies abscess Neurologic Neurologic: Denies headache(s) or weakness Allergic/Immunologic Allergic/Immunologic ED: Denies mouth swelling or urticaria EXAM Physical Exam Const Vital Signs: 03/11/23 06:54 03/11/23 06:58 03/11/23 07:22 Temperature 96.4 F L Temperature Source Temporal Pulse Rate 99 Respiratory Rate 38 H Respiratory Effort Short of Breath Blood Pressure 142/46 H Blood Pressure Mean 78 Pulse Ox 97 Oxygen Delivery Method Room Air Room Air 03/11/23 07:54 03/11/23 08:14 03/11/23 08:15 Temperature Temperature Source Pulse Rate 90 91 91 Respiratory Rate 26 H 26 H 26 H Respiratory Effort Blood Pressure 131/73 H 128/78 H Blood Pressure Mean 92 90 Pulse Ox 94 95 94 Oxygen Delivery Method 03/11/23 08:30 03/11/23 08:31 Temperature Temperature Source Pulse Rate 99 Respiratory Rate 17 Respiratory Effort Blood Pressure 137/55 H Blood Pressure Mean 64 Pulse Ox Oxygen Delivery Method Positive well nourished, well developed and obese General Appearance ED: well developed and NAD Nutritional Appearance: obese HEENT Reports moist mucous membranes Neck supple and no JVD Resp normal respiratory effort and clear to auscultation bilaterally Cardio regular rate, regular rhythm and no murmurs GI normal to inspection, nondistended, normoactive bowel sounds and non-tender Palpation: soft Extremity normal to inspection General Extremety ED: Negative for edema or tenderness General Extremity: Negative for edema Neuro oriented x3, CN's II-XII intact bilaterally and no sensory deficits noted Sensorium / Orientation: alert Motor Exam: strength 5/5 throughout Psych mental status grossly normal Skin no rashes or lesions noted MDM MDM MDM Narrative Medical decision making narrative: Differential diagnosis includes cardiac dysrhythmia, cardiac ischemia, pulmonary embolism, pneumonia, pneumothorax, electrolyte abnormality, anemia, and anxiety. EKG will be obtained to assess for cardiac dysrhythmia and cardiac ischemia. Chest x-ray will be obtained to assess for pneumonia and pneumothorax. CBC will be obtained to assess for anemia and leukocytosis. Basic metabolic profile will be obtained to assess for electrolyte abnormality and renal function. High- sensitivity troponin will be obtained to assess for cardiac ischemia. D-dimer will be obtained to assess for pulmonary embolism. PT with INR and PTT will be obtained to assess for coagulopathy. Lab Data Attestation: I reviewed the patient's lab results. Lab results narrative: CBC was reviewed. Hemoglobin is 9.0 hematocrit 33.8. These are improved from previous results. Platelet count was slightly increased at 455. Basic metabolic profile was reviewed and was within normal limits. High-sensitivity troponin was reviewed and was normal at 6. PT with INR and PTT were reviewed. Pro time was 18.1 and INR is 1.5. PTT was normal at 35. D-dimer was reviewed and was elevated at 4.56. Labs: Laboratory Results - last 24 hr 03/11/23 07:00 WBC 8.0 RBC 4.18 L Hgb 9.0 L Hct 33.8 L MCV 80.9 L MCH 21.5 L MCHC 26.6 L RDW Std Deviation 60.0 H RDW Coeff of Chepe 23.2 H Plt Count 455 H MPV 9.5 Immature Gran % (Auto) 0.400 Neut % (Auto) 40.9 L Lymph % (Auto) 42.0 H Rice % (Auto) 9.8 Eos % (Auto) 6.0 H Baso % (Auto) 0.9 Absolute Neuts (auto) 3.3 Absolute Lymphs (auto) 3.35 Nucleated RBC % 0 Anisocytosis 1+ PT 18.1 H INR 1.5 APTT 35.0 D-Dimer Quant (PE/DVT) 4.56 H* Sodium 138 Potassium 4.6 Chloride 105 Carbon Dioxide 28.0 Anion Gap 5 BUN 17 Creatinine 1.02 Estim Creat Clear Calc 60.40 Est GFR (MDRD) Af Amer 73 Est GFR (MDRD) Non-Af 60 BUN/Creatinine Ratio 16.7 Glucose 101 Calcium 9.8 Troponin I High Sens 6 Radiography Chest X-Ray - ED: 1 View, Read by ED Physician and No Acute Disease CTA PE Study: No Evidence of PE and No Evidence of Dissection Diagnostic Testing: Clinical Impression(s) from Imaging Studies Chest X-Ray 03/11/23 07:22 IMPRESSION: Large hiatal hernia. No acute pulmonary infiltrates or pleural effusions. Electronically Signed: Rocky Evans MD at 7:44 EDT , Chest CTA 03/11/23 08:07 IMPRESSION: 1. Suboptimal contrast enhancement of the peripheral pulmonary arteries. No central pulmonary thromboemboli but peripheral pulmonary embolism cannot be evaluated or determined. 2. No CT evidence of thoracic aortic aneurysm or dissection. 3. Interval resolution of right upper lobe pneumonia and improvement of left lower lobe atelectasis. 4. Cardiomegaly is unchanged. 5. Large left gastric hernia is unchanged. 6. Mild diffuse hepatic steatosis is unchanged. Electronically Signed: Tan Bejarano MD at 8:53 EDT , Portable 1 view chest x-ray was obtained. On my independent interpretation, lung salcido are clear. There is normal cardiac silhouette. There is a large hiatal hernia noted. Bony thorax is normal. There is no acute process noted. Radiologist also interpreted the x-ray and agrees. Because of the elevated D-dimer, CTA of the chest was obtained. There is no evidence of central pulmonary emboli but peripheral pulmonary embolism cannot be excluded. There is no aortic aneurysm or dissection. There is resolution of the right upper lobe pneumonia and improvement of the left lower lobe atelectasis. This was interpreted by the radiologist was also independently reviewed by myself. EKG Initial EKG: Attestation: I personally reviewed and interpreted this EKG as follows: Interpretation: Sinus Rhythm (94) and No Acute Injury Pattern Comments: EKG was obtained. On my independent interpretation, it showed a normal sinus rhythm with a rate of 94. MD interval, QRS interval, and QTc intervals were all normal. [place] was normal. There are no acute ST or T wave changes. Prior EKG tracings: available for review Prior: Unchanged (01/25/2023) Treatment and Re-Evaluation :: Patient was given aspirin here. Patient was advised of her findings. Patient has a HEART score of 1. Patient was advised that this is low risk for acute cardiac event. Patient was instructed to follow-up with her primary care physician in 5 to 7 days. Patient was instructed return if worse in any way. Patient understood and was agreeable with the plan. All questions were answered. Discharge Plan Triage Chief Complaint: Palpitations ED Provider: Leland Deleon Dx/Rx/DC Orders Clinical Impression: Heart palpitations, Morbid obesity with BMI of 50.0-59.9, adult Instructions: ED Palpitations Prescriptions: No Action scopolamine base 1 mg over 3 days patch 3 day 1 patch transdermal Q3D PRN (Reason: nausea and vomiting) Qty: 10 1RF bupropion HCl 300 MG tablet extended release 24 hr 300 mg PO DAILY ropinirole 2 MG tablet extended release 24 hr 2 mg PO QHS Xarelto 20 mg tablet 20 mg PO DAILY Patient Comments: TAKE 1 TABLET BY MOUTH EVERY DAY WITH SUPPER prednisone 5 mg tablet 10 mg PO DAILY Patient Comments: TAKE 2 TABLETS BY MOUTH EVERY DAY. NEEDS OFFICE VISIT fluvoxamine 100 mg tablet 100 mg PO DAILY ferrous sulfate 325 mg (65 mg iron) tablet 325 mg PO DAILY Patient Comments: TAKE 1 TABLET BY MOUTH EVERY DAY buspirone 10 mg tablet 10 mg PO DAILY Patient Comments: TAKE 1 TABLET BY MOUTH EVERY MORNING AND TAKE 2 TABLETS BY MOUTH AT BEDTIME buspirone 10 mg tablet 20 mg PO QHS Patient Comments: TAKE 1 TABLET BY MOUTH EVERY MORNING AND TAKE 2 TABLETS BY MOUTH AT BEDTIME atenolol 50 mg tablet 50 mg PO DAILY Patient Comments: TAKE 1 TABLET BY MOUTH EVERY DAY Rexulti 1 mg tablet 1 mg PO DAILY Patient Comments: TAKE 1 TABLET BY MOUTH EVERY DAY Probiotic 1 ea PO/SL DAILY biotin 1 ea PO/SL DAILY ondansetron 4 mg tablet,disintegrating 4 mg PO Q8H PRN PRN (Reason: Nausea) Qty: 10 0RF quetiapine [Seroquel] 25 mg Tablet 75 mg PO QHS pantoprazole 40 mg Tablet,Delayed Release (Dr/Ec) 40 mg PO BID Qty: 60 2RF sucralfate 1 gram tablet 1 g PO Q6H Qty: 120 1RF ascorbic acid (vitamin C) [C-1000] 1,000 mg tablet 1 g PO DAILY triamcinolone acetonide 0.025 % cream 1 applic topical BID Qty: 15 0RF promethazine 25 mg tablet 25 mg PO Q6H PRN (Reason: nausea and vomiting) Qty: 120 0RF Primary Care Provider: Tarah Dubon Referrals: Tarah Dubon DO [Primary Care Provider] - 5-7 Days Disposition Disposition: Home, Self Care
--- NOTE | 2023-03-11 07:22 | RAD_ITS ---
EXAM: XR CHEST, 1 VIEW CLINICAL INDICATION: chest pain -- -- HEART PALPITATIONS X 1 WK TECHNIQUE: Frontal view of the chest. COMPARISON: CTA chest of 06/04/2022. Abdominal pelvic CT report of 10/23/2022. FINDINGS: LUNGS AND PLEURAL SPACES: No acute pulmonary infiltrates or pleural effusions are identified. HEART: Heart size is mildly enlarged with normal pulmonary vasculature. MEDIASTINUM: A large hiatal hernia is present, containing gas and fluid. Thoracic aorta is not elongated. No mediastinal widening. Trachea is midline. BONES/JOINTS: Lower thoracic degenerative spurring. No acute osseous abnormality. SOFT TISSUES: Unremarkable. RAD/Chest 1 View (Portable) IMPRESSION: Large hiatal hernia. No acute pulmonary infiltrates or pleural effusions. Electronically Signed: Rocky Evans MD at 7:44 EDT ,
[2023-03-11] MEDS: Aspirin 81 MG TAB.CHEW 324 MG PO (07:31)
[2023-03-11 07:39] LABS: Absolute Lymphocyte Count 3.35 X10^3/uL (0.83-4.51); Absolute Neutrophil Count 3.3 X10^3/uL (2.0-7.7); Basophil# 0.07 X10^3/uL; Basophil% 0.9 % (0-1); Eosinophil# 0.48 X10^3/uL; Hematocrit 33.8 % (37-47); Lymphocyte # 3.35 X10^3/ul (0.83-4.51); Mean Corp Hgb Conc 26.6 g/dL (32-36); Mean Corpuscular Hgb 21.5 pg (27.0-32.0); Mean Corpuscular Volume 80.9 fL (81-99); Mean Platelet Vol. 9.5 fl (6.2-12.0); Monocyte# 0.78 X10^3/uL; Monocyte% 9.8 % (0-10); NRBC Flagged by Analyzer 0 % (0-5); Neutrophil # 3.27 X10^3/uL (2.7-7.7); Neutrophil % 40.9 % (47-70); POSITIVE MORPHOLOGY YES; Platelet Count 455 K/mm3 (150-450); RBC Distribution Width CV 23.2 % (11.6-14.6); Red Blood Count 4.18 M/mm3 (4.2-5.4)
[2023-03-11 07:40] LABS: Differential Indicated SCAN CRITERIA MET
[2023-03-11 07:51] LABS: Anion Gap 5 (5-15); BUN 17 mg/dL (7-18); BUN/Creat Ratio 16.7 RATIO (10-20); Calcium,Total 9.8 mg/dL (8.5-10.1); Chloride 105 mmol/L (98-107); Creatinine, Serum 1.02 mg/dL (0.55-1.02); EST Glomerular Filtration Rate 60 mL/min (>60); Est Glom Filt Rate - Afr Amer 73 mL/min (>60); Glucose 101 mg/dL (74-106); Potassium 4.6 mmol/L (3.5-5.1); Sodium Level 138 mmol/L (136-145); Troponin-I HS 6 pg/mL (3.0-54.0)
[2023-03-11 08:07] LABS: D-Dimer Quantitative (DVT/PE) 4.56 FEU/ug/m (0.27-0.49)
--- NOTE | 2023-03-11 08:07 | CT_ITS ---
EXAM: CT ANGIOGRAPHY CHEST WITHOUT AND WITH INTRAVENOUS CONTRAST CLINICAL INDICATION: Elevated D-dimer TECHNIQUE: Helically acquired angiography images were obtained of the chest without and with intravenous contrast. This CT exam was performed using one or more of the following dose reduction techniques: automated exposure control, adjustment of the mA and/or kV according to patient size, and/or use of iterative reconstruction technique. MIP reconstructed images were created and reviewed. CONTRAST: IV 100mL [id number] RADIATION DOSE: CTDIvol = 15.35 mGy, DLP = 971.04 mGy-cm COMPARISON: CTA chest 06/04/2022. FINDINGS: PULMONARY ARTERIES: Less than optimal contrast enhancement of the central pulmonary arteries without suspicious pulmonary thromboemboli. Suboptimal contrast enhancement of the peripheral pulmonary arteries. Peripheral pulmonary embolism cannot be determined. Normal in caliber. AORTA: Unremarkable. Normal in caliber. No evidence of dissection. GREAT VESSELS OF AORTIC ARCH: Unremarkable. Normal in caliber. No evidence of dissection. LUNGS AND PLEURAL SPACES: Interval improvement of left lower lobe atelectasis. No pleural effusion or thickening. No pneumothorax. No suspicious infiltrates or pulmonary nodules. HEART: Unremarkable. Heart size is normal. No pericardial effusion. No significant coronary artery calcifications. MEDIASTINUM: Unremarkable. No mediastinal or hilar adenopathy. Esophagus is unremarkable. No hiatal hernia. THYROID: Unremarkable. No thyroid lesions. BONES/JOINTS: Unremarkable. No suspicious lytic or blastic abnormality. SOFT TISSUES: Enlarged left gastric hernia. LIVER: Mild fatty infiltration of liver is unchanged. CT/CTA Chest W/WO Contrast IMPRESSION: 1. Suboptimal contrast enhancement of the peripheral pulmonary arteries. No central pulmonary thromboemboli but peripheral pulmonary embolism cannot be evaluated or determined. 2. No CT evidence of thoracic aortic aneurysm or dissection. 3. Interval resolution of right upper lobe pneumonia and improvement of left lower lobe atelectasis. 4. Cardiomegaly is unchanged. 5. Large left gastric hernia is unchanged. 6. Mild diffuse hepatic steatosis is unchanged. Electronically Signed: Tan Bejarano MD at 8:53 EDT ,
[2023-03-11 08:18] LABS: Anisocytosis 1+
[2023-03-11 08:21] LABS: International Normalized Ratio 1.5; Prothrombin Time (Protime)PT. 18.1 SECONDS (11.7-14.9)
== END 2023-03-11 10:24 | disposition home or self-care (01) ==
PROVIDERS: Emergency Provider Emergency Medicine; PCP Family Medicine; Visit Provider Emergency Medicine
DX: R00.2 Palpitations (principal); E66.01 Morbid (severe) obesity due to excess calories; Z68.43 Body mass index [BMI] 50.0-59.9, adult; G47.33 Obstructive sleep apnea (adult) (pediatric); Z86.711 Personal history of pulmonary embolism
CPT/HCPCS: 71045; 71275; 80048; 84484; 85025; 85379; 85610; 85730; 93005; 99285; Q9967; A4216

== ENCOUNTER → 2023-03-28 | Outpatient (CLI) | payer MEDICARE, MEDICAID, SELFPAY ==
[2023-03-28 19:56] LABS: Amphetamine Urine VISTA NEGATIVE (<1000 ng/mL); Barbiturate Urine VISTA NEGATIVE (< 200 ng/mL); Benzodiazepine Urine VISTA NEGATIVE (< 200 ng/mL); Cocaine Urine VISTA NEGATIVE (< 300 ng/mL); Ecstacy Urine VISTA POSITIVE (< 500 ng/mL); Methadone Urine VISTA NEGATIVE (< 300 ng/mL); PCP Urine VISTA NEGATIVE (< 25 ng/mL); THC Urine VISTA NEGATIVE (< 50 ng/mL); Vista UDS pH Range 6
== END | disposition home or self-care (01) ==
LOC: LAB 13:27
PROVIDERS: PCP Family Medicine; Referring Provider Anesthesiology Pain Medicine; Visit Provider Anesthesiology Pain Medicine
DX: F11.20 Opioid dependence, uncomplicated (principal)
CPT/HCPCS: 80307

== ENCOUNTER → 2023-04-30 | Outpatient (CLI) | payer MEDICARE, MEDICAID, SELFPAY ==
--- NOTE | 2023-04-30 15:46 | MRI_ITS ---
EXAM: MR LUMBAR SPINE WITHOUT INTRAVENOUS CONTRAST CLINICAL INDICATION: RADICULOPAHY, LOW BACK PAIN TECHNIQUE: Multiplanar and multisequence MR images of the lumbar spine without intravenous contrast. COMPARISON: No relevant prior studies available. FINDINGS: VERTEBRAE: Unremarkable. Vertebral body heights are preserved. Normal vertebral bodies and posterior elements. Normal alignment. No spondylolisthesis. There is preservation of the normal lumbar lordosis. SPINAL CORD: Unremarkable. Normal position and signal intensity of the conus medullaris. The conus is at the level of mid L1 body. SOFT TISSUES: Unremarkable. DISCS/SPINAL CANAL/NEURAL FORAMINA: L1-L2: Mild decreased body height, annular disc bulge, anterior disc protrusion, mild posterior left and right disc protrusions, greater on the left, mildly narrowing the thecal sac, high signal intensity in the protruding disc to the left which projects roughly 5 mm, consistent with annular tear. Mild endplate degenerative changes and spondylosis. No significant neural foraminal stenosis. AP diameter of the midline canal roughly 1.4 cm. L2-L3: Normal disc height with decreased T2 signal intensity. Mild Modic type endplate degenerative changes of the left opposing endplates. Left posterior lateral and left lateral broad base mild disc protrusions with mild left neural foraminal stenosis. No kathy spinal stenosis, 1.2 cm AP midline canal. L3-L4: Normal disc height with decreased T2 signal intensity. No significant bulge or protrusion. No neural foraminal or spinal stenosis. L4-L5: Normal disc height. Mild decreased T2 signal intensity. Mild right posterior lateral broad-based disc protrusion and small lateral disc protrusions. No significant spinal canal stenosis. Mild narrowing of the proximal right neural foramen. L5-S1: Normal disc height and signal intensity. Minimal right lateral disc protrusion. Moderate right neural foraminal stenosis due to combined changes including right facet joint hypertrophic change, mild bulging disc and spondylosis. No spinal stenosis. MRI/Spine Lumbar (Routine) IMPRESSION: Multilevel bulging and mildly protruding discs. Minimal Modic type endplate changes. No kathy spinal stenosis. Multilevel neural foraminal stenosis. Electronically Signed: Arianna Natarajan MD at 4:55 EDT ,
== END | disposition home or self-care (01) ==
PROVIDERS: PCP Family Medicine; Referring Provider Anesthesiology Pain Medicine; Visit Provider Anesthesiology Pain Medicine
DX: M54.16 Radiculopathy, lumbar region (principal)
CPT/HCPCS: 72148

== ENCOUNTER 2023-06-29 09:21 | Inpatient (IN) | payer MEDICARE, MEDICAID, SELFPAY ==
[2023-06-29] VITALS (13 sets, daily range): BP systolic 99–155; BP diastolic 56–76; PULSE 103–129; RESP 14–28; TEMP 36.5–37.3; O2SAT 91–95; BMI 58.8; BMI 59.4
--- NOTE | 2023-06-29 09:58 | EKG12_ITS ---
Test Reason : SOB Blood Pressure : / mmHG Vent. Rate : 126 BPM Atrial Rate : 126 BPM P-R Int : 146 ms QRS Dur : 080 ms QT Int : 296 ms P-R-T Axes : 035 063 063 degrees QTc Int : 428 ms Sinus tachycardia Cannot rule out Anterior infarct , age undetermined Abnormal ECG Confirmed by ROBBIE LEON, SHEELA ([id number]), subeditor LYLY KENDALL ([id number]) on 07/02/2023 6:18:18 AM Referred By: Santino Duran Confirmed By:JOZEF AVALOS MD
--- NOTE | 2023-06-29 09:58 | RAD_ITS ---
HISTORY: Productive cough, wheezing, hypoxia. TECHNIQUE: XR Chest 1 View. COMPARISON: 03/11/2023. FINDINGS: CARDIOMEDIASTINAL BORDERS: Cardiac silhouette markedly enlarged compared to prior with left retrocardiac hiatal hernia again seen. Mediastinal contour unremarkable. LUNGS: Mild left basilar opacity. PLEURA: Probable left pleural effusion. OSSEOUS STRUCTURES: Unremarkable. RAD/Chest 1 View (Portable) IMPRESSION: Left pleural effusion with left basilar atelectasis or pneumonia. Increased cardiomegaly, suspicious for pericardial effusion. Large hiatal hernia. Electronically Signed: Mary Mejia MD at 11:34 EST ,
--- NOTE | 2023-06-29 10:03 | EDS_ITS ---
HPI History of Present Illness Chief Complaint: Shortness of Breath Detail of Chief Complaint: Productive cough, dyspnea, wheezing, subjective fever and dysuria Informant: patient Onset/Context/Timing Onset: Days (Onset of illness approximately 3 to 4 days dysuria started 2 days ago) Context: Sudden Onset Timing: Continuous Quality: Respiratory symptoms Location: Respiratory Current Severity: Mild Maximum Severity: Severe Worsened by: Activity Relieved by: Nothing Associated Symptoms Associated Symptoms: Myalgias Narrative Narrative: Patient is a 52-year-old woman with a BMI of 58.9% who presents with dyspnea, productive cough, subjective fever, dysphonia, and urinary tract symptoms. The respiratory symptoms started prior to the dysuria. He does have a history of obstructive sleep apnea and is compliant with her CPAP mask. She does not need supplemental oxygen. She does have a remote history of DVT and is on Xarelto. She does have a history of lupus anticoagulant disorder. She denies headache, visual, ocular auditory symptoms. She does endorse mild nasal congestion. She denies sore throat. She denies difficulty swallowing. She denies abdominal pain, nausea, vomiting or diarrhea. She denies dysuria, frequency or hematuria, but does endorse dysuria. She has chronic swelling of her left leg. Has a scar due to compartment syndrome. She denies headache, neck pain or neck stiffness. She has photophobia. She denies paresthesia, anesthesia or motor weakness. 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 Lupus anticoagulant disorder Morbid obesity MTHFR mutation KIKI (obstructive sleep apnea) Pleural effusion, left Pulmonary embolism Rheumatoid arthritis Sinus tachycardia Home Medications bupropion HCl 300 mg 24 hr tablet, extended release 300 mg PO DAILY mental health 08/25/18 [History Last Taken 09/20/22] ropinirole 2 mg tablet,extended release 24 hr 2 mg PO QHS restless legs 08/25/18 [History Last Taken 09/20/22] rivaroxaban 20 mg tablet (Xarelto) 20 mg PO DAILY blood thinner 06/01/22 [History Last Taken 09/20/22] Probiotic 1 ea PO/SL DAILY IMMUNE HEALTH 09/21/22 [History Last Taken 09/20/22] atenolol 50 mg tablet 50 mg PO DAILY HEART 09/21/22 [History Last Taken 09/20/22] biotin 1 ea PO/SL DAILY SUPPLEMENT 09/21/22 [History Last Taken 09/20/22] brexpiprazole 1 mg tablet (Rexulti) 1 mg PO DAILY MENTAL HEALTH 09/21/22 [History Last Taken 09/20/22] buspirone 10 mg tablet 10 mg PO DAILY ANXIETY 09/21/22 [History Last Taken 09/20] buspirone 10 mg tablet 20 mg PO QHS ANXIETY 09/21/22 [History Last Taken 09/20/22] fluvoxamine 100 mg tablet 100 mg PO DAILY MENTAL HEALTH 09/21/22 [History Last Taken 09/20/22] prednisone 5 mg tablet 10 mg PO DAILY RA 09/21/22 [History Last Taken 09/20/22] quetiapine 25 mg tablet (Seroquel) 75 mg PO QHS sleep 10/23/22 [History Last Taken Unknown] pantoprazole 40 mg tablet,delayed release 40 mg PO BID #60 tabs 10/26/22 [Rx Last Taken Unknown] sucralfate 1 gram tablet 1 g PO Q6H #120 tabs 10/26/22 [Rx Last Taken Unknown] triamcinolone acetonide 0.025 % topical cream 1 applic topical BID #15 grams 11/29/22 [Rx Last Taken Unknown] tocilizumab 162 mg/0.9 mL subcutaneous syringe (Actemra) 162 mg subcut .weekly 03/18/23 [History Last Taken Unknown] promethazine 25 mg tablet 25 mg PO Q6H PRN nausea and vomiting #120 tabs 04/11/23 [Rx Last Taken Unknown] duloxetine 30 mg capsule,delayed release 30 mg PO DAILY 06/29/23 [History Last Taken Unknown] semaglutide 0.25 mg or 0.5 mg (2 mg/3 mL) subcutaneous pen injector (Ozempic) 0.5 mg subcut QWEEK 06/29/23 [History Last Taken Unknown] Allergy/AdvReac Type Severity Reaction Status Date / Time adhesive tape AdvReac Rash Verified 06/29/23 09:22 Family History Mother Cancer Lung CA w/ concurrent tobacco use. Heart disease Surgical History History of fasciotomy History of hysterectomy History of total bilateral knee replacement S/P pericardial window creation Social History household members: family Smoking Status: Never smoker alcohol intake: never substance use type: does not use ROS ROS ED Constitutional Constitutional ED: Reports chills, fever(s) and subjective; Denies sweats or weight loss Eyes Eyes: Denies blurry vision, change in vision or diplopia ENT ENT ED: Reports rhinorrhea; Denies ear pain or sore throat Cardiovascular Cardiovascular: Denies chest pain, orthopnea, palpitations, paroxysmal nocturnal dyspnea or racing heartbeat Respiratory/Chest Respiratory/Chest: Reports cough, dyspnea, dyspnea on exertion and sputum; Denies orthopnea or paroxysmal nocturnal dyspnea Gastrointestinal Gastrointestinal: Denies abdominal pain, diarrhea, nausea or vomiting Genitourinary Genitourinary ED: Reports dysuria; Denies hematuria or urinary frequency Musculoskeletal Musculoskeletal: Reports myalgias; Denies arthralgias, back pain or neck pain Integumentary Denies rash Neurologic Neurologic: Reports weakness; Denies headache(s) or paresthesias Endocrine Endocrinology: Denies cold intolerance or heat intolerance Hematologic/Lymphatic Hematologic/Lymphatic: Reports systems reviewed and no addt'l complaints, except as documented EXAM Physical Exam Narrative Exam Narrative: Vital signs remarkable for sinus tachycardia on the monitor. Patient is hypoxic. She is on supplemental oxygen at this time and presently on 4 L. Const Vital Signs: 06/29/23 09:22 06/29/23 09:32 06/29/23 09:32 Temperature 97.7 F L Temperature Source Temporal Pulse Rate 129 H 123 H Respiratory Rate 25 H 18 Respiratory Effort Short of Breath Respiratory Depth Normal Respiratory Pattern Tachypnea Blood Pressure 130/60 H Blood Pressure Mean 83 Pulse Ox 92 93 Oxygen Delivery Method Room Air Room Air Room Air Oxygen Flow Rate (L/min) 06/29/23 09:53 06/29/23 10:00 06/29/23 10:05 Temperature Temperature Source Pulse Rate Respiratory Rate Respiratory Effort Respiratory Depth Respiratory Pattern Blood Pressure Blood Pressure Mean Pulse Ox 92 93 Oxygen Delivery Method Nasal Cannula Nasal Cannula Nasal Cannula Oxygen Flow Rate (L/min) 3 4 4 Positive well nourished, well developed and obese General Appearance ED: well developed and pallor; Negative for cyanotic, diaphoretic or NAD Nutritional Appearance: obese HEENT Reports moist mucous membranes HEENT Narrative: Head is atraumatic and normocephalic. Ears normal. Nares patent with slight clear discharge. Posterior pharynx out erythema exam. Eyes PERRL and EOMs intact bilaterally General Eye ED: Negative for pale conjunctiva or scleral icterus Neck no lymphadenopathy, supple and no JVD Neck Narrative: Trachea is midline. There is no inspiratory expiratory stridor. Chest Wall inspection of chest normal and palpation of chest normal Resp No normal respiratory effort and No clear to auscultation bilaterally Resp Narrative: Expiratory phase is increased. There is decreased air movement. Auscultation: wheezes expiratory wheezes, scattered wheezes and throughout Cardio regular rate, regular rhythm, S1 normal heart sound, S2 normal heart sound and no murmurs GI normal to inspection, nondistended, normoactive bowel sounds, non-tender, non- distended and no masses; Negative for hepatosplenomegaly Back/Spine no CVA tenderness Extremity Extremity Narrative: Left lower extremity swollen compared to right. This is chronic. Patient has a scar due to compartment syndrome. There is evidence of venous stasis dermatitis. Unable to appreciate pulses due to body habitus. Capillary refill is normal. Neuro oriented x3, CN's II-XII intact bilaterally and no sensory deficits noted Sensorium / Orientation: alert Psych mental status grossly normal Skin skin turgor normal General Skin Exam: elasticity normal and pallor; Negative for jaundice Sepsis Attestation Sepsis Alert: Yes Sepsis Attestation: Agree w/Sepsis Date exam was performed: 06/29/23 Time exam was performed: 11:28 Possible Source of Sepsis: Pulmonary and Genitourinary Sepsis Organ Dysfunction Criteria Present: Lactic Acid > 2 mmol/L Sepsis Note Date exam was performed: 06/29/23 Time exam was performed: 12:44 Sepsis Attestation: Sepsis re-evaluation was performed (Since patient is not hemodynamically unstable she was not given full fluid resuscitation.) MDM MDM MDM Narrative Medical decision making narrative: Differential diagnosis would include bronchitis with bronchospasm, pneumonia, pulmonary embolus is less likely since patient is on anticoagulant and history is consistent with upper respiratory infection. Also need to evaluate for urinary tract infection since she reports dysuria. Because she is dyspneic with conversation and hypoxic with minimal movement will have nurse obtain straight cath urine. Blood work was obtained to assess for endorgan dysfunction. Patient was informed that she will require admission to the hospital. Sepsis order set was initiated. Since this may represent viral antibiotics were not started. ABG was obtained to assess acid-base status and more importantly to determine if patient is retaining CO2. Lactate is 7.8. This could be due to the fact the patient was hypoxic. There is also other causes. Since patient has a normal white count and there are other possibilities for the cause of her hypoxia she was not treated for sepsis at this point. Lab Data Attestation: I reviewed the patient's lab results. Lab results narrative: White count is normal. Patient is anemic with an H&H of 10 and 33.9. Indices are unremarkable. Platelet count is 394. PT is slightly elevated which is not surprising since patient is on Xarelto. Comprehensive metabolic panel reveals slight elevation of creatinine of 1.11. Glucose is slightly bit 113 with normal CO2 anion gap. Liver enzymes are normal. UA is consistent with infection. Culture was sent. Will treat with 1 g of Rocephin. Since patient has source of infection with a lactate of 7.8 will administer IV fluids. Because there is concern for other causes of the lactic acidosis will not administer the full 30 cc/kg bolus. Will obtain CTA to evaluate for pulmonary embolus since there is no obvious abnormality to explain her hypoxia. Labs: Laboratory Results - last 24 hr 06/29/23 06/29/23 09:33 09:40 WBC 7.0 RBC 4.03 L Hgb 10.0 L Hct 33.9 L MCV 84.1 MCH 24.8 L MCHC 29.5 L RDW Std Deviation 49.8 H RDW Coeff of Chepe 16.4 H Plt Count 394 MPV 9.7 Immature Gran % (Auto) 0.300 Neut % (Auto) 63.4 Lymph % (Auto) 22.2 [place] % (Auto) 9.9 Eos % (Auto) 3.1 Baso % (Auto) 1.1 H Absolute Neuts (auto) 4.4 Absolute Lymphs (auto) 1.55 Nucleated RBC % 0.3 PT 16.8 H INR 1.4 APTT 28.2 Sodium 138 Potassium 4.0 Chloride 104 Carbon Dioxide 23.0 Anion Gap 11 BUN 15 Creatinine 1.11 H Estim Creat Clear Calc 55.50 Est GFR (MDRD) Af Amer 66 Est GFR (MDRD) Non-Af 55 L BUN/Creatinine Ratio 13.5 Glucose 113 H Lactic Acid 7.8 H* Calcium 9.2 Total Bilirubin 0.20 AST 21 ALT 33 Alkaline Phosphatase 86 Total Protein 7.0 Albumin 3.3 Globulin 3.7 Albumin/Globulin Ratio 0.9 Urine Color Yellow Urine Clarity Cloudy Urine pH 5.0 Ur Specific Hazel 1.015 Urine Protein 30 H Urine Glucose (UA) Normal Urine Ketones Negative Urine Occult Blood 250 H Urine Nitrite Positive H Urine Bilirubin Negative Urine Urobilinogen Normal Ur Leukocyte Esterase 500 H Urine RBC 0-5 SEEN Urine WBC >100 SEEN Ur Squamous Epith Cells 0 SEEN Urine Bacteria 2+ Urine Mucus 0 SEEN ABG Data Attestation: I personally reviewed and interpreted this ABG as follows: Interpretation: ABG reveals normal pH. CO2 is 40 which is technically elevated since patient is tachypneic. Patient does have an increased AA gradient. Saturation 91% which correlates with pulse ox and pO2 is 60. ABG results: ABG 06/29/23 10:21 Specimen Type ART Sample Site R Radial pH 7.41 Bicarbonate Actual 25.3 Total CO2 27 Base Excess 1 O2 Saturation 91 L O2 % 4.0 ABG pCO2 40.3 ABG pO2 60 L Ruben Test Positive O2 Delivery Device Cannula Vent Mode Not entered Radiography Chest X-Ray - ED: 1 View and Read by ED Physician (Independently reviewed interpreted by me at 1110. The film is rotated. A single view. Heart appears boggy. Left hemidiaphragm is obscured. There is no obvious infiltrate. Osseous structures are unremarkable. There is no cephalization or effusion noted on the right. Will compared to prior x-r) Diagnostic Testing: Clinical Impression(s) from Imaging Studies Chest X-Ray 06/29/23 09:58 IMPRESSION: Left pleural effusion with left basilar atelectasis or pneumonia. Increased cardiomegaly, suspicious for pericardial effusion. Large hiatal hernia. Electronically Signed: Mary Mejia MD at 11:34 EST , Chest CTA 06/29/23 11:32 IMPRESSION: Nondiagnostic contrast bolus in the distal main, hilar, and more peripheral pulmonary arteries. No large central pulmonary embolism. Left pneumonia or pneumonitis. No significant pleural or pericardial effusion. Large hiatal hernia. Hepatic steatosis. Electronically Signed: Mary Mejia MD at 12:23 EST , X-ray was obtained February. She does not have a large hiatal hernia. She was not rotated at that time. Cardiac silhouette appears about the same. EKG Initial EKG: Attestation: I personally reviewed and interpreted this EKG as follows: Interpretation: Sinus Tachycardia (Rate is 126. There is decreased anterior force. There is no ST elevation. MD interval is 126 ms. QRS duration is 80 ms. QT duration is 296 ms. The axis is normal. This EKG is not normal.) Treatment and Re-Evaluation :: I was informed at 1038 that patient's lactate is greater than 7. This could be because because of the hypoxia. Also this could be due to infectious etiology. Review of her medication list indicates she is not on metformin or any medication that may elevate her lactate. Comments:: Per CMS initiated patient has septic shock. Since patient has Medicare advantage she does not have septic shock and has sepsis without endorgan dysfunction. Critical Care Time Critical Care Time: Yes Critical care time (excluding procedures): 30-74 minutes (33), Including time spent: (History, physical, documentation, independent interpretation of laboratory results and x-ray results. Treatment for respiratory failure due to pneumonia and urinary tract infection.), Discussing w/Patient &/or Family/University Relations Vice President (Patient was informed of her results and need for admission.), Discussing w/Consultants and Arranging Admission or Transfer Discharge Plan Dx/Rx/DC Orders Clinical Impression: Sepsis without acute organ dysfunction, Sinus tachycardia, KIKI (obstructive sleep apnea), Lupus anticoagulant disorder, Gastroparesis, Acute hypoxic respiratory failure, Left lower lobe pneumonia, Urinary tract infection, Anticoagulant long-term use, Acidosis, lactic Disposition Disposition: Acute Care Hospital [facility] Discharge Date/Time: 06/29/23 13:53
[2023-06-29 10:17] LABS: Absolute Lymphocyte Count 1.55 X10^3/uL (0.83-4.51); Absolute Neutrophil Count 4.4 X10^3/uL (2.0-7.7); Basophil# 0.08 X10^3/uL; Basophil% 1.1 % (0-1); Eosinophil# 0.22 X10^3/uL; Eosinophils% 3.1 % (0-5); Hematocrit 33.9 % (37-47); Lymphocyte # 1.55 X10^3/ul (0.83-4.51); Lymphocyte % 22.2 % (19-41); Mean Corp Hgb Conc 29.5 g/dL (32-36); Mean Corpuscular Hgb 24.8 pg (27.0-32.0); Mean Corpuscular Volume 84.1 fL (81-99); Mean Platelet Vol. 9.7 fl (6.2-12.0); Monocyte# 0.69 X10^3/uL; Monocyte% 9.9 % (0-10); NRBC Flagged by Analyzer 0.3 % (0-5); Neutrophil # 4.43 X10^3/uL (2.7-7.7); Neutrophil % 63.4 % (47-70); Platelet Count 394 K/mm3 (150-450); RBC Distribution Width CV 16.4 % (11.6-14.6); RBC Distribution Width SD 49.8 fl (35.1-43.9); Red Blood Count 4.03 M/mm3 (4.2-5.4)
[2023-06-29 10:25] LABS: Allen Test Positive; Base Excess 1 mmol/L (-2 to +2); Bicarbonate 25.3 mmol/L (22-26); Blood Gas Specimen Type ART; Mode Not entered; O2 Delivery Device Cannula; PO2 60 mmHG (75-100); SITE R Radial; SO2 91 % (95-99); Total Carbon Dioxide 27 mmol/L; pCO2 40.3 mmHg (35-45); pH 7.41 (7.35-7.45)
[2023-06-29 10:27] LABS: International Normalized Ratio 1.4; Prothrombin Time (Protime)PT. 16.8 SECONDS (11.7-14.9)
[2023-06-29 10:28] LABS: Partial Thromboplast Time 28.2 Seconds (24.1-36.2)
[2023-06-29 10:35] LABS: ALB/GLOB Ratio 0.9 RATIO (0.9-2.4); AST(SGOT) 21 U/L (15-37); Alanine Aminotransfer ALT/SGPT 33 U/L (13-56); Albumin, Serum 3.3 g/dL (3.2-5.0); Alkaline Phosphatase 86 U/L (45-117); Anion Gap 11 (5-15); BUN 15 mg/dL (7-18); BUN/Creat Ratio 13.5 RATIO (10-20); Calcium,Total 9.2 mg/dL (8.5-10.1); Chloride 104 mmol/L (98-107); Creatinine, Serum 1.11 mg/dL (0.55-1.02); EST Glomerular Filtration Rate 55 mL/min (>60); Est Glom Filt Rate - Afr Amer 66 mL/min (>60); Globulin 3.7 g/dL (2.2-4.2); Glucose 113 mg/dL (74-106); Sodium Level 138 mmol/L (136-145)
[2023-06-29 10:38] LABS: Lactic Acid 7.8 mmol/L (0.4-1.9)
[2023-06-29] MEDS: Acetaminophen 325 MG Tablet 650 MG PO (10:40)
[2023-06-29] MEDS: 0.9% Normal Saline (1000mL) 1,000 ML 150 ML IV ×3 (10:40→20:34)
[2023-06-29] MEDS: Morphine 4 MG/ML Syringe IV ×2 (10:48→12:35)
[2023-06-29 11:07] LABS: Color, Urine Yellow (Yellow); Glucose, Dipstick Normal (Normal); Ketone-Dipstick Negative (Negative); Leukocyte Esterase-Dipstick 500 /ul (Negative); Mucous, Urine 0 SEEN /hpf (<or=2+); Nitrite-Dipstick Positive (Negative); Occult Blood-Urine 250 /ul (Negative); Protein-Dipstick 30 mg/dl (Negative); Specific Gravity, Urine 1.015 (1.002-1.030); Squamous Epithelial Cells - UA 0 SEEN /hpf (5-10); Urine Bilirubin Dipstick Negative (Negative); Urine Clarity Cloudy (Clear); Urine Urobilinogen Normal (Normal)
[2023-06-29 11:13] LABS: Bacteria 2+ /hpf (None Seen); Red Blood Cells-Urine 0-5 SEEN /hpf (0-5); White Blood Cells >100 SEEN /hpf (0-5)
--- NOTE | 2023-06-29 11:32 | CT_ITS ---
HISTORY: Hypoxia and tachycardia, evaluate for pulmonary embolus. TECHNIQUE: CT angiogram of the chest was performed after the intravenous administration of 100 mL Isovue-370. Post-processing of the angiographic images was performed with multiplanar reformation and 3D reconstruction. Individualized dose optimization techniques were used for this CT. 1387 images. COMPARISON: XR same day, CTA 03/11/2023. FINDINGS: CENTRAL AIRWAYS: Patent. LUNGS: Moderate left upper lobe, lingular, and left lower lobe groundglass opacities with patchy alveolar opacities and bronchiectasis in the lingula and left lower lobe. PLEURA: No pneumothorax or significant pleural effusion. HEART/PERICARDIUM: Heart within normal limits in size. No pericardial effusion. PULMONARY ARTERIES: No large central filling defect with nondiagnostic contrast bolus in the distal main, hilar, and more distal pulmonary artery branches. AORTA/VESSELS: No thoracic aortic aneurysm or dissection flap. Aberrant course of the right subclavian artery. MEDIASTINUM/DAISHA: Scattered small lymph nodes. OSSEOUS STRUCTURES: Mild degenerative change. UPPER ABDOMEN: Large hiatal hernia. Fatty infiltration of the liver. CT/CTA Chest W/WO Contrast IMPRESSION: Nondiagnostic contrast bolus in the distal main, hilar, and more peripheral pulmonary arteries. No large central pulmonary embolism. Left pneumonia or pneumonitis. No significant pleural or pericardial effusion. Large hiatal hernia. Hepatic steatosis. Electronically Signed: Mary Mejia MD at 12:23 EST ,
[2023-06-29] MEDS: Ceftriaxone 1 GM/50 ML BAG IV (12:08)
--- NOTE | 2023-06-29 12:45 | ED.RN ---
1245: Dr. Duran notified that patient trigger sepsis protocol. At this time Dr. Duran is not initiated fluid resuscitation.
[2023-06-29] MEDS: Azithromycin 500 MG in Dextrose 5%-Water (250mL Bag) 250 ML 250 MG IV (13:07)
[2023-06-29] MEDS: Ondansetron 4 MG/2 ML Vial IV (13:49)
[2023-06-29 14:11] LABS: Reflex Lactate? Y
[2023-06-29 15:36] LABS: Lactic Acid 2.9 mmol/L (0.4-1.9)
[2023-06-29] MEDS: HYDROcodone Bitartrate/Apap 5/325 Tablet PO ×2 (16:20→22:48)
--- NOTE | 2023-06-29 16:48 | PCM.HP.STD ---
HPI - General General Date of Admission: 06/29/23 Date of Service: 06/29/23 HPI Narrative RICCARDO VICKERS, is a 52 white F who presents to the emergency room at [facility] with complaints of shortness of breath, of yellow and green sputum, and chills x 2 days. Patient has no history of any lung disease, she is not on any home O2. Patient denies any sick contacts at home. Patient also complains of some dysuria. Workup in the emergency room included a CBC which showed a normal white blood cell count, hemoglobin was 10, creatinine was 1.11, lactic acid was 7.8. Urinalysis revealed more than 100 white blood cells and +2 bacteria, there is positive urine nitrites and 500 leukocyte Estrace. Chest x-ray was performed, it showed a left pleural effusion with left basilar atelectasis or pneumonia and evidence of cardiomegaly. Chest CTA was performed, no large central pulmonary emboli were noted, there was noted to be left pneumonia or pneumonitis, there was no significant pleural or pericardial effusion. Patient will be admitted for sepsis secondary to community-acquired pneumonia and urinary tract infection, she will be given IV Rocephin and Zithromax, she will be given aerosol treatments, labs will be monitored. Fluids will be administered. [facility] Medical History Anemia Anxiety and depression Gastroparesis GERD (gastroesophageal reflux disease) History of pulmonary embolism Iron deficiency anemia due to chronic blood loss intermediate current use of anticoagulant Lupus anticoagulant disorder Morbid obesity MTHFR mutation KIKI (obstructive sleep apnea) Pleural effusion, left Pulmonary embolism Rheumatoid arthritis Sinus tachycardia Home Medications bupropion HCl 300 mg 24 hr tablet, extended release 300 mg PO DAILY mental health 08/25/18 [History Last Taken 09/20/22] ropinirole 2 mg tablet,extended release 24 hr 2 mg PO QHS restless legs 08/25/18 [History Last Taken 09/20/22] rivaroxaban 20 mg tablet (Xarelto) 20 mg PO DAILY blood thinner 06/01/22 [History Last Taken 09/20/22] Probiotic 1 ea PO/SL DAILY IMMUNE HEALTH 09/21/22 [History Last Taken 09/20/22] atenolol 50 mg tablet 50 mg PO DAILY HEART 09/21/22 [History Last Taken 09/20/22] biotin 1 ea PO/SL DAILY SUPPLEMENT 09/21/22 [History Last Taken 09/20/22] brexpiprazole 1 mg tablet (Rexulti) 1 mg PO DAILY MENTAL HEALTH 09/21/22 [History Last Taken 09/20/22] buspirone 10 mg tablet 10 mg PO DAILY ANXIETY 09/21/22 [History Last Taken 09/20/22] buspirone 10 mg tablet 20 mg PO QHS ANXIETY 09/21/22 [History Last Taken 09/20/22] fluvoxamine 100 mg tablet 100 mg PO DAILY MENTAL HEALTH 09/21/22 [History Last Taken 09/20/22] prednisone 5 mg tablet 10 mg PO DAILY RA 09/21/22 [History Last Taken 09/20/22] quetiapine 25 mg tablet (Seroquel) 75 mg PO QHS sleep 10/23/22 [History Last Taken Unknown] pantoprazole 40 mg tablet,delayed release 40 mg PO BID #60 tabs 10/26/22 [Rx Last Taken Unknown] sucralfate 1 gram tablet 1 g PO Q6H #120 tabs 10/26/22 [Rx Last Taken Unknown] triamcinolone acetonide 0.025 % topical cream 1 applic topical BID #15 grams 11/29/22 [Rx Last Taken Unknown] tocilizumab 162 mg/0.9 mL subcutaneous syringe (Actemra) 162 mg subcut .weekly 03/18/23 [History Last Taken Unknown] promethazine 25 mg tablet 25 mg PO Q6H PRN nausea and vomiting #120 tabs 04/11/23 [Rx Last Taken Unknown] duloxetine 30 mg capsule,delayed release 30 mg PO DAILY 06/29/23 [History Last Taken Unknown] semaglutide 0.25 mg or 0.5 mg (2 mg/3 mL) subcutaneous pen injector (Ozempic) 0.5 mg subcut QWEEK 06/29/23 [History Last Taken Unknown] Allergy/AdvReac Type Severity Reaction Status Date / Time adhesive tape AdvReac Rash Verified 06/29/23 09:22 Family History Mother Cancer Lung CA w/ concurrent tobacco use. Heart disease Surgical History History of fasciotomy History of hysterectomy History of total bilateral knee replacement S/P pericardial window creation Social History household members: family Smoking Status: Never smoker alcohol intake: never substance use type: does not use ROS Constitutional Constitutional: Reports chills, fatigue, malaise and weakness; Denies anorexia, change in weight, fever(s) or night sweats Eyes Eyes: Denies blurry vision, change in vision, discharge from eye(s) or eye pain Cardiovascular Cardiovascular: Reports chest pain; Denies claudication, dyspnea on exertion, edema or palpitations Respiratory/Chest Respiratory/Chest: Reports cough, dyspnea, productive cough and shortness of breath with exertion; Denies hemoptysis or shortness of breath at rest Gastrointestinal Gastrointestinal: Denies abdominal pain, constipation, diarrhea, hematemesis, hematochezia, melena, nausea or vomiting Genitourinary Genitourinary: Reports dysuria; Denies hematuria, urinary frequency, urinary hesitancy, urinary incontinence or urinary urgency Musculoskeletal Musculoskeletal: Denies back pain, joint pain, joint stiffness, joint swelling, myalgias or neck pain Neurologic Neurologic: Denies abnormal gait, abnormal speech, dizziness, focal weakness, headache(s), loss of vision, numbness, other visual disturbances, paresthesias, syncope or tingling Psychiatric Psychiatric: Denies anxiety, cognitive impairment, depression, irritability, mood swings or suicidal ideation Endocrine Endocrinology: Denies change in body appearance, cold intolerance, excessive sweating, heat intolerance, polydipsia or polyuria Hematologic/Lymphatic Hematologic/Lymphatic: Denies none, anemia, easy bleeding, easy bruising or lymphadenopathy Allergic/Immunologic Allergic/Immunologic: Denies rhinitis, urticaria, eczemia or asthma Vital Signs Vital Signs Vital Signs: 06/29/23 09:22 06/29/23 09:32 06/29/23 09:32 Temperature 97.7 F L Temperature Source Temporal Pulse Rate 129 H 123 H Respiratory Rate 25 H 18 Respiratory Effort Short of Breath Respiratory Depth Normal Respiratory Pattern Tachypnea Blood Pressure 130/60 H Blood Pressure [BP] Blood Pressure Mean 83 Blood Pressure Mean [BP] Blood Pressure Source [BP] Blood Pressure Position [BP] Blood Pressure Location [BP] Pulse Ox 92 93 Oxygen Delivery Method Room Air Room Air Room Air Oxygen Flow Rate (L/min) 06/29/23 09:53 06/29/23 10:00 06/29/23 10:05 Temperature Temperature Source Pulse Rate Respiratory Rate Respiratory Effort Respiratory Depth Respiratory Pattern Blood Pressure Blood Pressure [BP] Blood Pressure Mean Blood Pressure Mean [BP] Blood Pressure Source [BP] Blood Pressure Position [BP] Blood Pressure Location [BP] Pulse Ox 92 93 Oxygen Delivery Method Nasal Cannula Nasal Cannula Nasal Cannula Oxygen Flow Rate (L/min) 3 4 4 06/29/23 12:42 06/29/23 12:54 06/29/23 12:54 Temperature 99.2 F H 99 F Temperature Source Temporal Temporal Pulse Rate 107 H 110 H 110 H Respiratory Rate 28 H 26 H 26 H Respiratory Effort Respiratory Depth Respiratory Pattern Blood Pressure 99/74 112/68 112/68 Blood Pressure [BP] Blood Pressure Mean 82 82 82 Blood Pressure Mean [BP] Blood Pressure Source [BP] Blood Pressure Position [BP] Blood Pressure Location [BP] Pulse Ox 92 92 Oxygen Delivery Method Nasal Cannula Oxygen Flow Rate (L/min) 06/29/23 13:07 06/29/23 14:06 06/29/23 15:38 Temperature 99 F 99 F Temperature Source Oral Pulse Rate 105 H 106 H Respiratory Rate 26 H 14 Respiratory Effort Normal Respiratory Depth Respiratory Pattern Blood Pressure 104/58 L Blood Pressure [BP] 105/56 L Blood Pressure Mean 73 Blood Pressure Mean [BP] 72 Blood Pressure Source [BP] Monitor Blood Pressure Position [BP] Semi-Fowlers Blood Pressure Location [BP] Right Leg Pulse Ox 92 92 92 Oxygen Delivery Method Nasal Cannula Nasal Cannula Oxygen Flow Rate (L/min) 3 3 06/29/23 16:00 Temperature Temperature Source Pulse Rate Respiratory Rate Respiratory Effort Respiratory Depth Respiratory Pattern Blood Pressure Blood Pressure [BP] Blood Pressure Mean Blood Pressure Mean [BP] Blood Pressure Source [BP] Blood Pressure Position [BP] Blood Pressure Location [BP] Pulse Ox 91 Oxygen Delivery Method Nasal Cannula Oxygen Flow Rate (L/min) 2.5 Weight Weight: 167 kg Body Mass Index (BMI) 59.4 Physical Exam Const alert, oriented x3, no apparent distress and average body habitus Constitutional Narrative: Patient is morbidly obese General Appearance: cooperative, well kempt and well developed Orientation / Consciousness: awake, oriented to person, oriented to place and oriented to time HEENT normocephalic, head/scalp atraumatic, hearing grossly normal bilaterally and moist oral mucous membranes Eyes PERRL, EOMs intact bilaterally and conjunctivae normal Neck supple, no JVD, thyroid normal and no carotid bruits General: trachea midline Resp normal respiratory effort, no retractions, no use of accessory muscles and clear to auscultation bilaterally Auscultation: Negative for rales, rhonchi or wheezes Cardio regular rate, regular rhythm, S1 normal heart sound, S2 normal heart sound, no murmurs, no rub and no gallops Cardio Narrative: Inspiratory rales are noted over the left lung base GI normal to inspection, nondistended, normoactive bowel sounds, soft to palpation, non-tender and non-distended Extremity no clubbing, cyanosis or edema Skin no rashes or lesions noted General Skin Exam: no breakdown Neuro oriented x3, CN's II-XII intact bilaterally, moves all extremities, no focal motor deficits and no sensory deficits noted Sensorium / Orientation: awake, alert, oriented to person, oriented to place and oriented to time Speech: speech normal Psych affect normal Results Lab / Micro Data 06/29/23 09:33 12 09:33 Labs: Laboratory Results - last 24 hr 12 09:33: WBC 7.0, RBC 4.03 L, Hgb 10.0 L, Hct 33.9 L, MCV 84.1, MCH 24.8 L, MCHC 29.5 L, RDW Std Deviation 49.8 H, RDW Coeff of Chepe 16.4 H, Plt Count 394, MPV 9.7, Immature Gran % (Auto) 0.300, Neut % (Auto) 63.4, Lymph % (Auto) 22.2, [place] % (Auto) 9.9, Eos % (Auto) 3.1, Baso % (Auto) 1.1 H, Absolute Neuts (auto) 4.4, Absolute Lymphs (auto) 1.55, Nucleated RBC % 0.3, PT 16.8 H, INR 1.4, APTT 28.2, Sodium 138, Potassium 4.0, Chloride 104, Carbon Dioxide 23.0, Anion Gap 11, BUN 15, Creatinine 1.11 H, Estim Creat Clear Calc 55.50, Est GFR (MDRD) Af Amer 66, Est GFR (MDRD) Non-Af 55 L, BUN/Creatinine Ratio 13.5, Glucose 113 H, Lactic Acid 7.8 H*, Calcium 9.2, Total Bilirubin 0.20, AST 21, ALT 33, Alkaline Phosphatase 86, Total Protein 7.0, Albumin 3.3, Globulin 3.7, Albumin/Globulin Ratio 0.9 06/29/23 09:40: Urine Color Yellow, Urine Clarity Cloudy, Urine pH 5.0, Ur Specific [place] 1.015, Urine Protein 30 H, Urine Glucose (UA) Normal, Urine Ketones Negative, Urine Occult Blood 250 H, Urine Nitrite Positive H, Urine Bilirubin Negative, Urine Urobilinogen Normal, Ur Leukocyte Esterase 500 H, Urine RBC 0-5 SEEN, Urine WBC >100 SEEN, Ur Squamous Epith Cells 0 SEEN, Urine Bacteria 2+, Urine Mucus 0 SEEN 06/29/23 14:26: Lactic Acid 2.9 H* Micro: Microbiology 06/29/23 09:40 Urine, Clean Catch Legionella Antigen - Final 06/29/23 09:40 Urine, Clean Catch Streptococcus pneumoniae Antigen (M - Final 06/29/23 09:33 Nasal Secretion SARS-CoV-2 & FLU Antigen (Rapid) - Final ABG Data ABG results: ABG 06/29/23 10:21 Specimen Type ART Sample Site R Radial pH 7.41 Bicarbonate Actual 25.3 Total CO2 27 Base Excess 1 O2 Saturation 91 L O2 % 4.0 ABG pCO2 40.3 ABG pO2 60 L Ruben Test Positive O2 Delivery Device Cannula Vent Mode Not entered Imagaing Radiology Impression Chest X-Ray 06/29/23 09:58 IMPRESSION: Left pleural effusion with left basilar atelectasis or pneumonia. Increased cardiomegaly, suspicious for pericardial effusion. Large hiatal hernia. Electronically Signed: Mary Mejia MD at 11:34 EST , Chest CTA 06/29/23 11:32 IMPRESSION: Nondiagnostic contrast bolus in the distal main, hilar, and more peripheral pulmonary arteries. No large central pulmonary embolism. Left pneumonia or pneumonitis. No significant pleural or pericardial effusion. Large hiatal hernia. Hepatic steatosis. Electronically Signed: Mary Mejia MD at 12:23 EST , Assessment & Plan Assessment/Plan (1) Acidosis, lactic: PLAN: Plan 1. Sepsis secondary to community-acquired pneumonia of the left lung and acute cystitis-patient will be admitted to PCU, IV fluids will be administered, patient will be kept on IV Zithromax and Rocephin, aerosol treatments will be administered #2 acute cystitis-patient will be on IV Rocephin #3 hypoxia secondary to community-acquired pneumonia-pulse ox will be monitored #4 chronic anxiety/depression-patient will remain on her psychiatric medications #5 morbid obesity-complicates care, medical course, recovery, and prognosis Total clinical time spent by myself addressing the patient's medical issues, reviewing all of her data, and collaborating with patient's care team: 75 minutes Charges/Coding Visit Charges Inpatient E&M: 63701 Init Hosp L3
[2023-06-29] MEDS: Albuterol 2.5 MG/3 ML VIAL.NEB. INHALATION (19:17)
[2023-06-29] MEDS: Sucralfate 1 GM Tablet PO (21:48)
[2023-06-29] MEDS: Pramipexole Di-HCl 1 MG Tablet PO (21:48)
[2023-06-29] MEDS: busPIRone 5 MG Tablet 20 MG PO (21:48)
[2023-06-29] MEDS: Pantoprazole Sodium 40 MG Tablet PO (21:49)
[2023-06-29] MEDS: Rivaroxaban 20 MG Tablet PO (21:49)
[2023-06-29] MEDS: QUEtiapine 25 MG Tablet 50 MG PO (22:46)
[2023-06-29] MEDS: tiZANidine HCl 2 MG Tablet 4 MG PO (22:46)
[2023-06-30] VITALS (11 sets, daily range): BP systolic 106–145; BP diastolic 65–87; PULSE 90–108; RESP 14–20; TEMP 36.6–37.2; O2SAT 82–95
[2023-06-30] MEDS: 0.9% Normal Saline (1000mL) 1,000 ML 150 ML IV ×2 (03:34→09:18)
[2023-06-30] MEDS: Sucralfate 1 GM Tablet PO ×4 (06:33→21:19)
[2023-06-30] MEDS: Albuterol 2.5 MG/3 ML VIAL.NEB. INHALATION ×3 (07:18→19:48)
[2023-06-30 07:22] LABS: Absolute Lymphocyte Count 1.44 X10^3/uL (0.83-4.51); Absolute Neutrophil Count 2.5 X10^3/uL (2.0-7.7); Basophil# 0.05 X10^3/uL; Eosinophil# 0.19 X10^3/uL; Eosinophils% 3.9 % (0-5); Hematocrit 30.8 % (37-47); Hemoglobin 8.9 g/dL (12.0-15.0); Lymphocyte # 1.44 X10^3/ul (0.83-4.51); Lymphocyte % 29.5 % (19-41); Mean Corp Hgb Conc 28.9 g/dL (32-36); Mean Corpuscular Volume 86.5 fL (81-99); Mean Platelet Vol. 9.2 fl (6.2-12.0); Monocyte# 0.68 X10^3/uL; Monocyte% 13.9 % (0-10); NRBC Flagged by Analyzer 0 % (0-5); Neutrophil % 51.3 % (47-70); Platelet Count 302 K/mm3 (150-450); RBC Distribution Width CV 16.6 % (11.6-14.6); RBC Distribution Width SD 51.7 fl (35.1-43.9); Red Blood Count 3.56 M/mm3 (4.2-5.4); White Blood Count 4.9 K/mm3 (4.4-11.0)
[2023-06-30 07:51] LABS: Anion Gap 3 (5-15); BUN 12 mg/dL (7-18); BUN/Creat Ratio 14.7 RATIO (10-20); Calcium,Total 8.2 mg/dL (8.5-10.1); Chloride 108 mmol/L (98-107); Creatinine, Serum 0.82 mg/dL (0.55-1.02); EST Glomerular Filtration Rate 78 mL/min (>60); Est Glom Filt Rate - Afr Amer 95 mL/min (>60); Estimated Creatinine Clearance 75.13 ml/min; Glucose 95 mg/dL (74-106); Potassium 3.7 mmol/L (3.5-5.1); Sodium Level 139 mmol/L (136-145)
[2023-06-30] MEDS: Pantoprazole Sodium 40 MG Tablet PO ×2 (09:05→21:20)
[2023-06-30] MEDS: busPIRone 5 MG Tablet 10 MG PO (09:05)
[2023-06-30] MEDS: Atenolol 50 MG Tablet PO (09:05)
[2023-06-30] MEDS: DULoxetine Hcl 30 MG Capsule PO (09:06)
[2023-06-30] MEDS: buPROPion (XL) 300 MG TABLET.XL PO (09:06)
[2023-06-30] MEDS: HYDROcodone Bitartrate/Apap 5/325 Tablet PO ×2 (09:18→17:05)
[2023-06-30] MEDS: Azithromycin 500 MG in Dextrose 5%-Water (250mL Bag) 250 ML 250 MG IV (09:18)
[2023-06-30] MEDS: Ondansetron 4 MG/2 ML Vial IV (10:44)
[2023-06-30] MEDS: Ceftriaxone 1 GM/50 ML BAG IV (10:47)
--- NOTE | 2023-06-30 11:39 | PN.HOSP_ITS ---
Reason for Visit Reason for Visit: Diagnoses Acidosis, unspecified (06/29/23) Subjective Subjective Patient was seen and examined today, she states she feels improved from yesterday, she is on room air at rest but when she walks she desaturates into the low 80s on room air. Objective Data Objective Data Vital Signs: Vital Signs Temp Pulse Resp BP Pulse Ox O2 Del Method O2 Flow Rate 98.8 F 105 H 16 145/75 H 92 Room Air 0 06/30/23 09:55 06/30/23 09:55 06/30/23 09:55 06/30/23 09:55 06/30/23 11:35 06/30/23 09:55 06/30/23 11:35 Oxygen Flow Rate (L/min) [ 2 AMBULATING with Oxygen #1] Oxygen Flow Rate (L/min) [ 0 AMBULATING on Room Air] Oxygen Flow Rate (L/min) [At 0 REST on Room Air] Oxygen Flow Rate (L/min) 3.5 Oxygen Delivery Method Room Air Weight: 167 kg Body Mass Index (BMI) 59.4 Intake & Output: Intake and Output for Last 24 Hours 06/28/23 06/29/23 06/30/23 23:59 23:59 23:59 Intake Total 2802.5 / 3042.5 3070 / 3070 Balance 2802.5 / 3042.5 3070 / 3070 Lab / Micro Data 06/30/23 06:32 06/30/23 06:32 Labs: Laboratory Results - last 24 hr 06/29/23 14:26: Lactic Acid 2.9 H* 06/30/23 06:32: WBC 4.9, RBC 3.56 L, Hgb 8.9 L, Hct 30.8 L, MCV 86.5, MCH 25.0 L , MCHC 28.9 L, RDW Std Deviation 51.7 H, RDW Coeff of Chepe 16.6 H, Plt Count 302, MPV 9.2, Immature Gran % (Auto) 0.400, Neut % (Auto) 51.3, Lymph % (Auto) 29.5, Story % (Auto) 13.9 H, Eos % (Auto) 3.9, Baso % (Auto) 1.0, Absolute Neuts (auto) 2.5, Absolute Lymphs (auto) 1.44, Nucleated RBC % 0, Sodium 139, Potassium 3.7, Chloride 108 H, Carbon Dioxide 28.0, Anion Gap 3 L, BUN 12, Creatinine 0.82, Estim Creat Clear Calc 75.13, Est GFR (MDRD) Af Amer 95, Est GFR (MDRD) Non-Af 78, BUN/Creatinine Ratio 14.7, Glucose 95, Calcium 8.2 L Micro: Microbiology 06/29/23 09:40 Urine, Clean Catch Urine Culture - Preliminary Presumptive E. coli 06/29/23 09:40 Urine, Clean Catch Legionella Antigen - Final 06/29/23 09:40 Urine, Clean Catch Streptococcus pneumoniae Antigen (M - Final 06/29/23 09:33 Nasal Secretion SARS-CoV-2 & FLU Antigen (Rapid) - Final Radiography Diagnostic Testing: Radiology Impression Chest CTA 06/29/23 11:32 IMPRESSION: Nondiagnostic contrast bolus in the distal main, hilar, and more peripheral pulmonary arteries. No large central pulmonary embolism. Left pneumonia or pneumonitis. No significant pleural or pericardial effusion. Large hiatal hernia. Hepatic steatosis. Electronically Signed: Mary Mejia MD at 12:23 EST Reading Location ID and State: [address] [place] [address] Tel , Service support , Physical Exam Narrative alert, oriented x3, no apparent distress and average body habitus Constitutional Narrative: Patient is morbidly obese General Appearance: cooperative, well kempt and well developed Orientation / Consciousness: awake, oriented to person, oriented to place and or iented to time HEENT normocephalic, head/scalp atraumatic, hearing grossly normal bilaterally and moist oral mucous membranes Eyes PERRL, EOMs intact bilaterally and conjunctivae normal Neck supple, no JVD, thyroid normal and no carotid bruits General: trachea midline Resp normal respiratory effort, no retractions, no use of accessory muscles and clear to auscultation bilaterally Auscultation: Negative for rales, rhonchi or wheezes Cardio regular rate, regular rhythm, S1 normal heart sound, S2 normal heart sound, no murmurs, no rub and no gallops Cardio Narrative: Inspiratory rales are noted over the left lung base GI normal to inspection, nondistended, normoactive bowel sounds, soft to palpation, non-tender and non-distended Extremity no clubbing, cyanosis or edema Skin no rashes or lesions noted General Skin Exam: no breakdown Neuro oriented x3, CN's II-XII intact bilaterally, moves all extremities, no focal motor deficits and no sensory deficits noted Sensorium / Orientation: awake, alert, oriented to person, oriented to place and oriented to time Speech: speech normal Psych affect normal Assessment & Plan Assessment/Plan (1) Left lower lobe pneumonia: (2) Acidosis, lactic: PLAN: Plan 1. Sepsis secondary to community-acquired pneumonia of the left lung and acute cystitis-patient will remain on her current antibiotics, cultures are pending #2 acute cystitis-presumptive E. coli-patient is on IV Rocephin #3 hypoxia secondary to community-acquired pneumonia-pulse ox will be monitored #4 chronic anxiety/depression-patient will remain on her psychiatric medications #5 morbid obesity-complicates care, medical course, recovery, and prognosis Total clinical time spent by myself addressing the patient's medical issues, reviewing all of her data, and collaborating with patient's care team: 35 minutes Charges/Coding Visit Charges Inpatient E&M: 94406 Subs Hosp L2
[2023-06-30] MEDS: Rivaroxaban 20 MG Tablet PO (17:05)
[2023-06-30] MEDS: busPIRone 5 MG Tablet 20 MG PO (21:19)
[2023-06-30] MEDS: QUEtiapine 25 MG Tablet 50 MG PO (21:20)
[2023-06-30] MEDS: Pramipexole Di-HCl 1 MG Tablet PO (21:20)
[2023-06-30] MEDS: tiZANidine HCl 2 MG Tablet 4 MG PO (21:20)
[2023-07-01] VITALS (9 sets, daily range): BP systolic 98–124; BP diastolic 48–74; PULSE 87–105; RESP 14–28; TEMP 36.1–36.6; O2SAT 82–97
[2023-07-01] MEDS: HYDROcodone Bitartrate/Apap 5/325 Tablet PO ×4 (01:07→20:09)
[2023-07-01] MEDS: Benzonatate 100 MG Capsule PO (03:06)
[2023-07-01] MEDS: Sucralfate 1 GM Tablet PO ×4 (05:56→20:07)
[2023-07-01] MEDS: Albuterol 2.5 MG/3 ML VIAL.NEB. INHALATION ×3 (07:04→19:48)
[2023-07-01] MEDS: buPROPion (XL) 300 MG TABLET.XL PO (09:40)
[2023-07-01] MEDS: DULoxetine Hcl 30 MG Capsule PO (09:40)
[2023-07-01] MEDS: busPIRone 5 MG Tablet 10 MG PO (09:40)
[2023-07-01] MEDS: fluvoxaMINE Maleate 50 MG Tablet 100 MG PO (09:40)
[2023-07-01] MEDS: Pantoprazole Sodium 40 MG Tablet PO ×2 (09:40→20:08)
[2023-07-01] MEDS: Azithromycin 500 MG in Dextrose 5%-Water (250mL Bag) 250 ML 250 MG IV (09:41)
[2023-07-01] MEDS: Ceftriaxone 1 GM/50 ML BAG IV (09:41)
[2023-07-01] MEDS: Atenolol 50 MG Tablet PO (09:42)
[2023-07-01] MEDS: Ondansetron 4 MG/2 ML Vial IV (10:56)
--- NOTE | 2023-07-01 11:25 | CASEMGMT ---
ZENON ROMAN Face to Face with patient for initial transition planning/care coordination assessment. RN CM introduced self and role at [facility]. Patient sitting in chair, alert and oriented. Patient willing to participate in assessment and is able to answer all questions appropriately. Care providers, pharmacy, and demographics verified. Patient wishes to discharge home, denies need for home health at this time. Patient states she has no further needs or concerns at this time. CM to follow for discharge planning needs that may arise. PCP: Ling Specialists: Dr. Farfan, Care Partner [facility]; Basali, pain; Nitesh, LAB TESTER Preferred Pharmacy: [facility] Insurance: TAWNY Duong Prescription Benefit: yes Living Will/HPOA: none LNOK: daughter Living Arrangements: Patient lives alone in a lower level apartment with 5 steps and railing to enter the home. Patient states she is independent at home. Transportation: self, sister DME/HHC: Patient has cpap and walker at home. Patient states she has been to SNF in past but could not recall facility. Patient could not recall previous HHC. Will monitor for home oxygen at discharge. Disposition Plan: Patient to discharge home with family support and follow-up plans in place. Charity GRUBBS, RN, CM
[2023-07-01] MEDS: Vancomycin HCl 2,000 MG in 0.9% Normal Saline (500mL Bag) 500 ML 250 MG IV (11:40)
--- NOTE | 2023-07-01 12:11 | PCM.RX.CS ---
Consult Antibiotic Management Pharmacy has been consulted to manage selected antiobiotic: Vancomycin Type of Intervention Type of Consult: New start Suspected Infection Suspected Infection: Pneumonia Labs Labs: Sodium 139 mmol/L (136-145) 06/30/23 06:32 Potassium 3.7 mmol/L (3.5-5.1) 06/30/23 06:32 Chloride 108 mmol/L (98-107) H 06/30/23 06:32 Carbon Dioxide 28.0 mmol/L (21.0-32.0) 06/30/23 06:32 Anion Gap 3 (5-15) L 06/30/23 06:32 BUN 12 mg/dL (7-18) 06/30/23 06:32 Creatinine 0.82 mg/dL (0.55-1.02) 06/30/23 06:32 Est GFR (MDRD) Af Amer 95 mL/min (>60) 06/30/23 06:32 Est GFR (MDRD) Non-Af 78 mL/min (>60) 06/30/23 06:32 BUN/Creatinine Ratio 14.7 RATIO (10-20) 06/30/23 06:32 Glucose 95 mg/dL (74-106) 06/30/23 06:32 Microbiology Microbiology: Microbiology 06/29/23 10:11 Blood Culture (Wb) - Left Hand Blood Culture - Preliminary No growth in 48 hours. 06/29/23 09:33 Blood Culture (Wb) - Anticubital Right Blood Culture - Preliminary No growth in 48 hours. 06/30/23 00:42 Sputum, Expectorated/Coughed Gram Stain - Final 06/30/23 00:42 Sputum, Expectorated/Coughed Respiratory Culture - Preliminary Staphylococcus aureus 06/29/23 09:40 Urine, Clean Catch Urine Culture - Final Presumptive E. coli 06/29/23 09:40 Urine, Clean Catch Legionella Antigen - Final 06/29/23 09:40 Urine, Clean Catch Streptococcus pneumoniae Antigen (M - Final 06/29/23 09:33 Nasal Secretion SARS-CoV-2 & FLU Antigen (Rapid) - Final Pharmacy Plan for Drug Dosing Pharmacy Plan for Drug Dosing: NEW START IV VANCOMYCIN Consulting Physician: Mikey GARCIA Indication: PNEUMONIA Goal Trough: 15-20 MG/DL SrCr: SCR 0.82 MG/DL (06/30) CrCl: 129 ML/MIN (USING ADJUSTED BODY WEIGHT) Comments: INITIAL STANDARD DOSE OF 2000MG GIVEN 07/01 @ 1140 Vancomycin Dose: WILL START 1500MG Q8H AND GET A LEVEL PRIOR TO 4TH TOTAL DOSE PER POLICY Pending Level: 07/02/23 @ 1130 Pharmacy Service will continue to monitor and adjust dosing as required.
[2023-07-01] MEDS: Rivaroxaban 20 MG Tablet PO (16:38)
--- NOTE | 2023-07-01 17:22 | PCM.PN.HOSP ---
Reason for Visit Reason for Visit: Shortness of breath, increased pedal production, and chills Subjective Subjective Patient is a 52-year-old morbidly obese white female who presents emergency department [facility] on 06/29/2023 complaining of increasing shortness of breath, cough productive of yellow and green sputum and chills that have been ongoing for about 2 days. Patient denied any history of lung disease and does not require oxygen at baseline. She denied any known sick contacts. Workup in the emergency department revealed a CBC which was unremarkable with a white count of 7.0 and no left shift. An ABG was performed and showed a normal pH with baseline pCO2 but she was found to be mildly hypoxic with a pO2 of 60 and oxygen saturation of 91%. Chemistry panel was overall fairly unremarkable. She was however found to have a lactic acidosis of 7.8 that rapidly corrected down to 2.9 with an 5 hours of presentation. We do suspect this was related to hypoxemia and lack of perfusion to peripheral tissues. Liver function was unremarkable. Her UA was consistent with infection. CTA of the chest was performed and was unfortunately nondiagnostic for PE however the patient is on Xarelto at baseline so my suspicion for DVT/PE is very low. It did show a left sided pneumonia versus pneumonitis with no significant pleural or pericardial effusion and a large hiatal hernia along with hepatic steatosis. She was initially documented to have sepsis however at this time I think that her lactic acidosis was the only finding consistent with sepsis and this was most likely related to hypoxia. Sepsis has been ruled out at this time. Cultures were sent and she was placed on IV Rocephin and Zithromax for suspected UTI and community-acquired pneumonia. Since admission her urine culture has revealed an E. coli UTI that is pansensitive and Staph aureus in her sputum. Identification of MRSA versus MSSA has not yet been clarified so I did go ahead and start her on vancomycin. Patient does state clinically she is feeling better. I discussed the findings with her sputum culture with her and discussed antibiotic changes. She voiced understanding. She is immunocompromised at baseline and takes tocilizumab for history of rheumatoid arthritis. Objective Data Objective Data Vital Signs: Vital Signs Temp Pulse Resp BP Pulse Ox O2 Del Method O2 Flow Rate 97.5 F L 89 20 H 106/48 L 97 Nasal Cannula 7 07/01/23 12:32 07/01/23 13:33 07/01/23 13:33 07/01/23 12:32 07/01/23 12:32 07/01/23 12:32 07/01/23 12:32 Oxygen Flow Rate (L/min) [ 4 AMBULATING with Oxygen #1] Oxygen Flow Rate (L/min) [ 0 AMBULATING on Room Air] Oxygen Flow Rate (L/min) [At 0 REST on Room Air] Oxygen Flow Rate (L/min) 7 Oxygen Delivery Method Nasal Cannula Weight: 167 kg Body Mass Index (BMI) 59.4 Intake & Output: Intake and Output for Last 24 Hours 06/29/23 06/30/23 07/01/23 23:59 23:59 23:59 Intake Total 2802.5 / 3042.5 4420 / 4720 1964 Balance 2802.5 / 3042.5 44 / 4720 1964 Lab / Micro Data 06/30/23 06:32 06/30/23 06:32 Micro: Microbiology 06/29/23 10:11 Blood Culture (Wb) - Left Hand Blood Culture - Preliminary No growth in 48 hours. 06/29/23 09:33 Blood Culture (Wb) - Anticubital Right Blood Culture - Preliminary No growth in 48 hours. 06/30/23 00:42 Sputum, Expectorated/Coughed Gram Stain - Final 06/30/23 00:42 Sputum, Expectorated/Coughed Respiratory Culture - Preliminary Staphylococcus aureus 06/29/23 09:40 Urine, Clean Catch Urine Culture - Final Presumptive E. coli 06/29/23 09:40 Urine, Clean Catch Legionella Antigen - Final 06/29/23 09:40 Urine, Clean Catch Streptococcus pneumoniae Antigen (M - Final 06/29/23 09:33 Nasal Secretion SARS-CoV-2 & FLU Antigen (Rapid) - Final Physical Exam Const alert, oriented x3, no apparent distress and well nourished; Negative for average body habitus or healthy appearing Constitutional Narrative: Morbidly obese, white female, sitting up in a chair at the bedside, watching television, appears comfortable and nontoxic HEENT head/scalp atraumatic, moist oral mucous membranes and oropharynx normal HEENT Narrative: Mallampati 4, no thrush Head and Scalp: normocephalic Eyes PERRL and EOMs intact bilaterally Eyes Narrative: Mild conjunctiva pallor bilaterally, no scleral icterus Neck no lymphadenopathy and supple Neck Narrative: Neck is short and thick, trachea midline, no thyroid enlargement Resp normal respiratory effort, no retractions and no use of accessory muscles Resp Narrative: Rhonchi and crackles noted left-sided lung field base and apex along with midlung field as well, right lung is clear Auscultation: crackles and rhonchi; Negative for wheezes Cardio regular rate, regular rhythm, S1 normal heart sound, S2 normal heart sound, no murmurs, no rub, no gallops and no clicks GI normal to inspection, nondistended, normoactive bowel sounds, soft to palpation and non-tender GI Narrative: Protuberant abdomen Extremity Extremity Narrative: Trace bilateral lower extremity edema with no cyanosis or clubbing Skin no rashes or lesions noted, skin turgor normal, no jaundice, no petechiae and no mottling Skin Narrative: Skin is pale Neuro oriented x3, moves all extremities and no focal motor deficits Speech: speech normal Psych affect normal Psych Narrative: Patient interacts appropriately, eye contact is good, very pleasant Assessment & Plan Assessment/Plan (1) Acidosis, lactic: (2) Urinary tract infection: (3) Hypoxia: (4) Staphylococcus aureus pneumonia: PLAN: Plan Staph aureus pneumonia -Sepsis ruled out as she only presented with a lactic acidosis and I suspect this is related to her hypoxia on presentation NOT sepsis -Identification is pending so we will add vancomycin until we can rule out MRSA -Blood cultures are unremarkable -Narrow antibiotics once identification is fully obtained along with sensitivities -Discontinue azithromycin Hypoxia -Secondary to the above -Patient did not meet criteria for acute hypoxic respiratory failure due to the fact that she was in no distress per se on presentation but only hypoxic -Currently stable on room air at rest but requiring 2 L with exertion -Will retest tomorrow as I do anticipate discharge in next 24 hours once organisms are fully identified -May need oxygen at discharge -Recommend outpatient follow-up with pulmonary medicine -Suspect patient may have obstructive sleep apnea and obesity hypoventilation syndrome at baseline E. coli UTI -Continue ceftriaxone Lactic acidosis -Resolved -Suspect related to acute hypoxia on presentation Rheumatoid arthritis -Hold home immunosuppression and restart after discharge and antibiotic completion -Restart home prednisone 20 mg daily GERD/chronic abdominal pain/gastroparesis -Continue home PPI -Continue home Carafate -Outpatient workup per GI is pending -Recommend continued outpatient GI follow-up Hepatosteatosis -Patient follows as an outpatient with GI -Recommend continued outpatient follow-up History of pulmonary embolism/MTHFR mutation/lupus anticoagulant disorder -Continue home Xarelto KIKI -Strongly encourage compliance with BiPAP/CPAP Chronic anemia -Hemoglobin is stable -Patient is following as an outpatient with hematology -Recommend continued outpatient follow-up DM-2 -Hold outpatient medication and restart at discharge -Start SSI -Start Accu-Cheks as ordered Restless leg syndrome -Continue home Mirapex Depression/anxiety -Home antigen depressed since/anxiolytics DVT prophylaxis Full anticoagulation with Xarelto CODE STATUS -full code Charges/Coding Visit Charges Inpatient E&M: 31494 Subs Hosp L3
[2023-07-01] MEDS: predniSONE 5 MG Tablet 10 MG PO (18:06)
[2023-07-01] MEDS: Vancomycin HCl 1,500 MG in 0.9% Normal Saline (500mL Bag) 500 ML 250 MG IV (20:05)
[2023-07-01] MEDS: busPIRone 5 MG Tablet 20 MG PO (20:06)
[2023-07-01] MEDS: Pramipexole Di-HCl 1 MG Tablet PO (20:07)
[2023-07-01] MEDS: QUEtiapine 25 MG Tablet 50 MG PO (20:08)
[2023-07-01] MEDS: tiZANidine HCl 2 MG Tablet 4 MG PO (20:09)
[2023-07-01 23:03] LABS: Bedside Glucose 132 mg/dL (74-106)
[2023-07-02 03:20] VITALS: BP 141/66; PULSE 97; RESP 22; TEMP 35.9
[2023-07-02] MEDS: HYDROcodone Bitartrate/Apap 5/325 Tablet PO ×2 (03:38→10:02)
[2023-07-02] MEDS: Vancomycin HCl 1,500 MG in 0.9% Normal Saline (500mL Bag) 500 ML 250 MG IV (03:40)
[2023-07-02] MEDS: Sucralfate 1 GM Tablet PO ×2 (06:08→12:12)
[2023-07-02 06:28] LABS: Bedside Glucose 110 mg/dL (74-106)
[2023-07-02 07:26] VITALS: O2SAT 86; O2SAT 91
[2023-07-02 07:29] VITALS: PULSE 89; RESP 24; O2SAT 94
[2023-07-02] MEDS: Albuterol 2.5 MG/3 ML VIAL.NEB. INHALATION (07:29)
[2023-07-02 08:30] LABS: Absolute Lymphocyte Count 2.01 X10^3/uL (0.83-4.51); Absolute Neutrophil Count 1.9 X10^3/uL (2.0-7.7); Basophil# 0.03 X10^3/uL; Basophil% 0.6 % (0-1); Eosinophil# 0.31 X10^3/uL; Eosinophils% 6.4 % (0-5); Hematocrit 28.4 % (37-47); Hemoglobin 8.4 g/dL (12.0-15.0); Lymphocyte # 2.01 X10^3/ul (0.83-4.51); Lymphocyte % 41.8 % (19-41); Mean Corp Hgb Conc 29.6 g/dL (32-36); Mean Corpuscular Hgb 25.5 pg (27.0-32.0); Mean Corpuscular Volume 86.3 fL (81-99); Mean Platelet Vol. 9.4 fl (6.2-12.0); Monocyte# 0.53 X10^3/uL; NRBC Flagged by Analyzer 0.8 % (0-5); Neutrophil # 1.91 X10^3/uL (2.7-7.7); Neutrophil % 39.8 % (47-70); Platelet Count 309 K/mm3 (150-450); RBC Distribution Width CV 16.4 % (11.6-14.6); RBC Distribution Width SD 51.3 fl (35.1-43.9); Red Blood Count 3.29 M/mm3 (4.2-5.4); White Blood Count 4.8 K/mm3 (4.4-11.0)
[2023-07-02 08:47] VITALS: BP 105/54; PULSE 105; RESP 14; TEMP 37.1; O2SAT 93
[2023-07-02] MEDS: DULoxetine Hcl 30 MG Capsule PO (08:55)
[2023-07-02] MEDS: Pantoprazole Sodium 40 MG Tablet PO (08:55)
[2023-07-02] MEDS: Ceftriaxone 1 GM/50 ML BAG IV (08:55)
[2023-07-02] MEDS: busPIRone 5 MG Tablet 10 MG PO (08:56)
[2023-07-02] MEDS: fluvoxaMINE Maleate 50 MG Tablet 100 MG PO (08:56)
[2023-07-02] MEDS: Atenolol 50 MG Tablet PO (08:56)
[2023-07-02] MEDS: predniSONE 5 MG Tablet 10 MG PO (09:00)
[2023-07-02] MEDS: buPROPion (XL) 300 MG TABLET.XL PO (09:01)
[2023-07-02 09:07] LABS: Anion Gap 4 (5-15); BUN 12 mg/dL (7-18); BUN/Creat Ratio 15.3 RATIO (10-20); Calcium,Total 8.3 mg/dL (8.5-10.1); Chloride 107 mmol/L (98-107); Creatinine, Serum 0.78 mg/dL (0.55-1.02); EST Glomerular Filtration Rate 82 mL/min (>60); Est Glom Filt Rate - Afr Amer 99 mL/min (>60); Estimated Creatinine Clearance 78.98 ml/min; Glucose 93 mg/dL (74-106); Magnesium 1.9 mg/dL (1.6-2.6); Phosphorus 3.1 mg/dL (2.5-4.9); Potassium 3.8 mmol/L (3.5-5.1); Sodium Level 139 mmol/L (136-145)
[2023-07-02] MEDS: Azithromycin 500 MG in Dextrose 5%-Water (250mL Bag) 250 ML 250 MG IV (09:58)
[2023-07-02 11:57] LABS: Vancomycin, Trough Level 22.8 ug/mL (5.0-15.0)
--- NOTE | 2023-07-02 13:33 | PCM.DC.SUM ---
Providers Date of Admission: 06/29/23 Date of Discharge: 07/02/23 Primary Care Physician: Dr. Tarah Dubon DO Reason For Visit: LEFT LOWER LOBE PNEUNOMIA, SEPSIS Diagnosis Discharge Diagnosis (1) Acidosis, lactic: Status: Acute Code(s): E87.20 - Acidosis, unspecified (2) Urinary tract infection: Status: Acute Code(s): N39.0 - Urinary tract infection, site not specified (3) Hypoxia: Status: Acute Code(s): R09.02 - Hypoxemia (4) Staphylococcus aureus pneumonia: Status: Acute Code(s): J15.211 - Pneumonia due to Methicillin susceptible Staphylococcus aureus Plan Medications at Discharge Home Medications bupropion HCl 300 mg 24 hr tablet, extended release 300 mg PO DAILY mental health 08/25/18 ropinirole 2 mg tablet,extended release 24 hr 2 mg PO QHS restless legs 08/25/18 rivaroxaban 20 mg tablet (Xarelto) 20 mg PO DAILY blood thinner 06/01/22 Probiotic 1 ea PO/SL DAILY IMMUNE HEALTH 09/21/22 atenolol 50 mg tablet 50 mg PO DAILY HEART 09/21/22 biotin 1 ea PO/SL DAILY SUPPLEMENT 09/21/22 brexpiprazole 1 mg tablet (Rexulti) 1 mg PO DAILY MENTAL HEALTH 09/21/22 buspirone 10 mg tablet 10 mg PO DAILY ANXIETY 09/21/22 buspirone 10 mg tablet 20 mg PO QHS ANXIETY 09/21/22 fluvoxamine 100 mg tablet 100 mg PO DAILY MENTAL HEALTH 09/21/22 prednisone 5 mg tablet 10 mg PO DAILY RA 09/21/22 pantoprazole 40 mg tablet,delayed release 40 mg PO BID reflux #60 tabs 10/26/22 sucralfate 1 gram tablet 1 g PO Q6H reflux #120 tabs 10/26/22 tocilizumab 162 mg/0.9 mL subcutaneous syringe (Actemra) 162 mg subcut .weekly 03/18/23 promethazine 25 mg tablet 25 mg PO Q6H PRN nausea and vomiting #120 tabs 04/11/23 buprenorphine HCl 150 mcg buccal film (Belbuca) 150 mcg buccal Q12H pain relief 06/29/23 duloxetine 30 mg capsule,delayed release 30 mg PO DAILY mental health 06/29/23 quetiapine 50 mg tablet 50 mg PO QHS sleep 06/29/23 semaglutide 0.25 mg or 0.5 mg (2 mg/3 mL) subcutaneous pen injector (Ozempic) 0.5 mg subcut QWEEK diabetes 06/29/23 tizanidine 4 mg tablet 4 mg PO QHS spasms 06/29/23 triamcinolone acetonide 0.025 % topical cream 1 applic topical BID PRN celiac rash 06/29/23 amoxicillin 500 mg tablet 1,000 mg (2 x 500 mg) PO TID #36 tabs 07/02/23 Hospital Course Operations None Procedures EKG and - (Chest x-ray/CTA chest) Summary of Care Provided Minutes Spent on Discharge: 38 Hospital Course: Ms. Cali is a 52-year-old morbidly obese white female who presented emergency department at [facility] on 06/29/2023 complaining of increasing shortness of breath, cough productive of yellow and green sputum and chills that have been ongoing for about 2 days. Patient denied any history of lung disease and does not require oxygen at baseline. She denied any known sick contacts. Workup in the emergency department revealed a CBC which was unremarkable with a white count of 7.0 and no left shift. An ABG was performed and showed a normal pH with baseline pCO2 but she was found to be mildly hypoxic with a pO2 of 60 and oxygen saturation of 91%. Chemistry panel was overall fairly unremarkable. She was however found to have a lactic acidosis of 7.8 that rapidly corrected down to 2.9 with an 5 hours of presentation. We do suspect this was related to hypoxemia and lack of perfusion to peripheral tissues. Liver function was unremarkable. Her UA was consistent with infection. CTA of the chest was performed and was unfortunately nondiagnostic for PE however the patient is on Xarelto at baseline so my suspicion for DVT/PE is very low. It did show a left sided pneumonia versus pneumonitis with no significant pleural or pericardial effusion and a large hiatal hernia along with hepatic steatosis. She was initially documented to have sepsis however at this time I think that her lactic acidosis was the only finding consistent with sepsis and this was most likely related to hypoxia. Cultures were sent and she was placed on IV Rocephin and Zithromax for suspected UTI and community-acquired pneumonia. Her urine culture revealed an E. coli UTI that is pansensitive and Staph aureus in her sputum. Once Staph aureus was identified we did add vancomycin to the regimen the staph aureus was found to be sensitive Staph aureus and we were able to discontinue vancomycin. Ambulatory pulse ox was performed prior to discharge and did find that she was stable on room air at rest however did require supplemental oxygen with exertion at 2 L. I discussed this with her and recommended follow-up with her primary care physician within the next 2 weeks to be retested with ambulatory pulse ox to ascertain whether or not she needed ongoing oxygen therapy. Clinically her lung sounds improved significantly during her hospital course. Hepatosteatosis was identified on her imaging and she is already following with gastroenterology and working on weight loss. She was maintained on all of her home medications and we did add amoxicillin for another 6 days to complete a total complete 7-day course of antibiotics to address both her urinary tract infection and her pneumonia. She is to continue using her noninvasive ventilation at night for her sleep apnea. I have asked that she follow-up with her primary care physician within the next 2 weeks. Patient was able to be discharged home in stable condition on 07/02/2023 3. Prescriptions were sent to her local pharmacy. Discharge diagnoses: Staph aureus pneumonia E. coli UTI Hypoxia Lactic acidosis-resolved Rheumatoid arthritis GERD Chronic abdominal pain Gastroparesis Hepatosteatosis History of pulmonary embolism MTHFR mutation Lupus anticoagulant disorder KIKI Chronic anemia DM-2 Restless leg syndrome Depression Anxiety Physical Exam Narrative Pleuritic pain on left side has improved. Still some mild on the right. Decreased coughing. No hypoxia with rest but does have ongoing hypoxia with exertion and requires 2 L of oxygen. Const alert, oriented x3, no apparent distress and well nourished; Negative for average body habitus or healthy appearing Constitutional Narrative: Morbidly obese, white female, sitting up in bed, watching television, appears comfortable and nontoxic General Appearance: cooperative, comfortable, well kempt and well developed Orientation / Consciousness: awake, oriented to person, oriented to place and oriented to time Exam Limitations: no limitations Nutritional Appearance: morbidly obese HEENT normocephalic, head/scalp atraumatic, hearing grossly normal bilaterally, moist oral mucous membranes and oropharynx normal HEENT Narrative: Mallampati 3-4, no thrush Eyes PERRL and EOMs intact bilaterally Eyes Narrative: Mild conjunctiva pallor bilaterally, no scleral icterus Neck no lymphadenopathy and supple Neck Narrative: Neck is short and thick, trachea midline, no thyroid enlargement Resp normal respiratory effort, no retractions, no use of accessory muscles and clear to auscultation bilaterally Resp Narrative: Slight rhonchi at left base however much improved in the last 24 hours, right lung remains clear, crackles have resolved Auscultation: rhonchi; Negative for crackles, rales or wheezes Cardio regular rate, regular rhythm, S1 normal heart sound, S2 normal heart sound, no murmurs, no rub, no gallops and no clicks GI normal to inspection, nondistended, normoactive bowel sounds, soft to palpation and non-tender GI Narrative: Protuberant abdomen Extremity no clubbing, cyanosis or edema Extremity Narrative: Trace bilateral lower extremity edema with no cyanosis or clubbing Skin no rashes or lesions noted, No no wounds, skin turgor normal, no jaundice, no petechiae and no mottling Skin Narrative: Skin is pale Neuro oriented x3, moves all extremities and no focal motor deficits Sensorium / Orientation: awake, alert, oriented to person, oriented to place and oriented to time Speech: speech normal Psych affect normal Psych Narrative: Patient interacts appropriately, eye contact is good, very pleasant Weight / BMI Weight Weight: 167 kg Body Mass Index (BMI) 59.4 ABG / Lab / Microbiology Data 07/02/23 07:35 07/02/23 07:35 Laboratory: Laboratory Results - last 24 hr 07/01/23 21:10: POC Glucose 132 H 07/02/23 05:52: POC Glucose 110 H 07/02/23 07:35: WBC 4.8, RBC 3.29 L, Hgb 8.4 L, Hct 28.4 L, MCV 86.3, MCH 25.5 L, MCHC 29.6 L, RDW Std Deviation 51.3 H, RDW Coeff of Chepe 16.4 H, Plt Count 309, MPV 9.4, Immature Gran % (Auto) 0.400, Neut % (Auto) 39.8 L, Lymph % (Auto) 41.8 H, [place] % (Auto) 11.0 H, Eos % (Auto) 6.4 H, Baso % (Auto) 0.6, Absolute Neuts (auto) 1.9 L, Absolute Lymphs (auto) 2.01, Nucleated RBC % 0.8, Sodium 139, Potassium 3.8, Chloride 107, Carbon Dioxide 28.0, Anion Gap 4 L, BUN 12, Creatinine 0.78, Estim Creat Clear Calc 78.98, Est GFR (MDRD) Af Amer 99, Est GFR (MDRD) Non-Af 82, BUN/Creatinine Ratio 15.3, Glucose 93, Calcium 8.3 L, Phosphorus 3.1, Magnesium 1.9 07/02/23 11:15: Vancomycin Trough 22.8 H Microbiology: Microbiology 06/30/23 00:42 Sputum, Expectorated/Coughed Gram Stain - Final 06/30/23 00:42 Sputum, Expectorated/Coughed Respiratory Culture - Final Staphylococcus aureus 06/29/23 10:11 Blood Culture (Wb) - Left Hand Blood Culture - Preliminary No growth in 48 hours. 06/29/23 09:33 Blood Culture (Wb) - Anticubital Right Blood Culture - Preliminary No growth in 48 hours. 06/29/23 09:40 Urine, Clean Catch Urine Culture - Final Presumptive E. coli 06/29/23 09:40 Urine, Clean Catch Legionella Antigen - Final 06/29/23 09:40 Urine, Clean Catch Streptococcus pneumoniae Antigen (M - Final 06/29/23 09:33 Nasal Secretion SARS-CoV-2 & FLU Antigen (Rapid) - Final D/C Instructions Discharge Diet: Low fat / Low cholesterol Discharge Activity: Return to Normal Activity Return to work on: 07/05/23 Meaningful Use Info Meaningful Use Diagnoses (Choose all that apply): None applicable Discharge Plan Admission Admit Date/Time: 06/29/23 12:41 Primary Reason for Your Visit: Shortness of breath, increased sputum production, and chills Attending Provider: Lesly Tomas Primary Care Provider: Tarah Dubon Consulting Providers: Mumtaz Nash Instructions Additional Instructions / Restrictions: 1. Please use 2 L of oxygen with exertion no oxygen is required at rest 2. Continue CPAP/BiPAP nocturnally 3. Please complete entire course of antibiotics as directed for both your pneumonia and urinary tract infections Discharge Orders/Prescriptions Prescriptions: New amoxicillin 500 mg tablet 1,000 mg PO TID Qty: 36 0RF Continued Actemra 162 mg/0.9 mL syringe 162 mg subcut .weekly bupropion HCl 300 MG tablet extended release 24 hr 300 mg PO DAILY ropinirole 2 MG tablet extended release 24 hr 2 mg PO QHS Xarelto 20 mg tablet 20 mg PO DAILY Patient Comments: TAKE 1 TABLET BY MOUTH EVERY DAY WITH SUPPER prednisone 5 mg tablet 10 mg PO DAILY Patient Comments: TAKE 2 TABLETS BY MOUTH EVERY DAY. NEEDS OFFICE VISIT fluvoxamine 100 mg tablet 100 mg PO DAILY buspirone 10 mg tablet 10 mg PO DAILY Patient Comments: TAKE 1 TABLET BY MOUTH EVERY MORNING AND TAKE 2 TABLETS BY MOUTH AT BEDTIME buspirone 10 mg tablet 20 mg PO QHS Patient Comments: TAKE 1 TABLET BY MOUTH EVERY MORNING AND TAKE 2 TABLETS BY MOUTH AT BEDTIME atenolol 50 mg tablet 50 mg PO DAILY Patient Comments: TAKE 1 TABLET BY MOUTH EVERY DAY Rexulti 1 mg tablet 1 mg PO DAILY Patient Comments: TAKE 1 TABLET BY MOUTH EVERY DAY Probiotic 1 ea PO/SL DAILY biotin 1 ea PO/SL DAILY pantoprazole 40 mg Tablet,Delayed Release (Dr/Ec) 40 mg PO BID Qty: 60 2RF sucralfate 1 gram tablet 1 g PO Q6H Qty: 120 1RF duloxetine 30 mg capsule,delayed release(DR/EC) 30 mg PO DAILY Ozempic 0.25 mg or 0.5 mg (2 mg/3 mL) pen injector 0.5 mg SUBCUT QWEEK triamcinolone acetonide 0.025 % cream 1 applic topical BID PRN quetiapine 50 mg tablet 50 mg PO QHS tizanidine 4 mg tablet 4 mg PO QHS buprenorphine HCl [Belbuca] 150 mcg film 150 mcg BUCCAL Q12H promethazine 25 mg tablet 25 mg PO Q6H PRN (Reason: nausea and vomiting) Qty: 120 3RF Referrals / Follow Up: Tarah Dubon DO [Primary Care Provider] - Within 2 Weeks Disposition Disposition (needs filled in before D/C Order can be placed): Home, Self Care Charges/Coding Visit Charges Inpatient E&M: 28933 Disch Hosp >30min
[2023-07-02 13:43] VITALS: BP 115/67; PULSE 102; RESP 16; TEMP 37; O2SAT 99
--- NOTE | 2023-07-02 14:20 | PHA.DC.MC.R ---
Pharmacy [facility] has performed discharge medication reconciliation and counseling for this patient. 1. AMOXICILLIN 1000MG PO TID X 6 DAYS The patient's discharge medication list was reviewed for discrepancies and discrepancies were resolved. The patient was counseled on the following discharge medications and changes in medications for homegoing were reviewed. The Reason for Use, instructions for use, and potential side effects were reviewed for all new medications. The patient's questions regarding all of their medications were answered. The patient was able to verbally demonstrate an understanding of their discharge medications. Medications at Discharge Home Medications bupropion HCl 300 mg 24 hr tablet, extended release 300 mg PO DAILY mental health 08/25/18 ropinirole 2 mg tablet,extended release 24 hr 2 mg PO QHS restless legs 08/25/18 rivaroxaban 20 mg tablet (Xarelto) 20 mg PO DAILY blood thinner 06/01/22 Probiotic 1 ea PO/SL DAILY IMMUNE HEALTH 09/21/22 atenolol 50 mg tablet 50 mg PO DAILY HEART 09/21/22 biotin 1 ea PO/SL DAILY SUPPLEMENT 09/21/22 brexpiprazole 1 mg tablet (Rexulti) 1 mg PO DAILY MENTAL HEALTH 09/21/22 buspirone 10 mg tablet 10 mg PO DAILY ANXIETY 09/21/22 buspirone 10 mg tablet 20 mg PO QHS ANXIETY 09/21/22 fluvoxamine 100 mg tablet 100 mg PO DAILY MENTAL HEALTH 09/21/22 prednisone 5 mg tablet 10 mg PO DAILY RA 09/21/22 pantoprazole 40 mg tablet,delayed release 40 mg PO BID reflux #60 tabs 10/26/22 sucralfate 1 gram tablet 1 g PO Q6H reflux #120 tabs 10/26/22 tocilizumab 162 mg/0.9 mL subcutaneous syringe (Actemra) 162 mg subcut .weekly 03/18/23 promethazine 25 mg tablet 25 mg PO Q6H PRN nausea and vomiting #120 tabs 04/11/23 buprenorphine HCl 150 mcg buccal film (Belbuca) 150 mcg buccal Q12H pain relief 06/29/23 duloxetine 30 mg capsule,delayed release 30 mg PO DAILY mental health 06/29/23 quetiapine 50 mg tablet 50 mg PO QHS sleep 06/29/23 semaglutide 0.25 mg or 0.5 mg (2 mg/3 mL) subcutaneous pen injector (Ozempic) 0.5 mg subcut QWEEK diabetes 06/29/23 tizanidine 4 mg tablet 4 mg PO QHS spasms 06/29/23 triamcinolone acetonide 0.025 % topical cream 1 applic topical BID PRN celiac rash 06/29/23 amoxicillin 500 mg tablet 1,000 mg (2 x 500 mg) PO TID #36 tabs 07/02/23
--- NOTE | 2023-07-02 15:45 | CASEMGMT ---
Patient discharging today. Patient requires oxgyen at discharge. Patient prefers [employer]. Script received and referral sent to [facility] via [facility]. RN CM in to discuss needs at discharge. Patient denies needs at discharge. Patient had no further questions or concerns.
--- NOTE | 2023-07-02 16:10 | NURSING ---
Discharge instructions given and reviewed with pt. PIV removed. Tech wheeling pt out to pts car.
--- NOTE | 2023-08-17 17:48 | PCM.HOSP.N ---
Hospitalist Note Discussed with [facility] [place] ED doc over the phone about patient case. Patient presented to the ED today with general fatigue, generalized pain and fever/chills. Patient notably was hospitalized at [facility] from 06/29 through 07/02 for sepsis. She presented with a lactate of 7.8 at that time. She had productive cough and increasing shortness of breath. She was found to have MSSA in her sputum and also found to have an E. coli UTI. Her lactate rapidly resolved with fluid administration. She was treated with ceftriaxone and azithromycin with good improvement. She was discharged on 6-day course of amoxicillin to complete 7-day course overall. Per the [place] ED doc, patient today had a lactate of 3.3 there as well as a WBC count of 30,000. Also has creatinine elevation of 2.0, with baseline creatinine being around 0.8. Her UA was fairly benign. Chest x-ray was difficult to interpret due to patient's body habitus (BMI 59). They attempted to do a CT scan for but she was not able to complete CT scan due to discomfort. They started broad-spectrum antibiotics and IV fluids for her. She was sinus tachycardia to the 140s 150s when she arrived there, and she apparently has remained sinus tachycardia to the 140s even after IV fluids. She reports compliance with all her home medications, including Xarelto. She is satting in the mid to high 90s there on room air. Will place patient in the ICU here on arrival due to severe sepsis of unclear etiology and persistent sinus tachycardia. Plan for broad-spectrum antibiotics, IV fluids as needed. May try to get CT chest abdomen pelvis without contrast when she gets here, would hold on giving any IV contrast due to her JAGDISH.
== END 2023-07-02 16:14 | disposition home or self-care (01) | DRG 178 ==
LOC: ED 12:50 → PCU 12:55
PROVIDERS: Admitting Provider Internal Medicine; Emergency Provider Emergency Medicine; PCP Family Medicine; Referring Provider Emergency Medicine; Visit Provider Internal Medicine
DX: J15.211 Pneumonia due to Methicillin susceptible Staphylococcus aureus (principal); E72.12 Methylenetetrahydrofolate reductase deficiency; D68.62 Lupus anticoagulant syndrome; E87.21 Acute metabolic acidosis; Z68.43 Body mass index [BMI] 50.0-59.9, adult; N30.00 Acute cystitis without hematuria; E11.43 Type 2 diabetes mellitus with diabetic autonomic (poly)neuropathy; E66.01 Morbid (severe) obesity due to excess calories; M06.9 Rheumatoid arthritis, unspecified; F32.A Depression, unspecified; K76.0 Fatty (change of) liver, not elsewhere classified; D50.0 Iron deficiency anemia secondary to blood loss (chronic); G25.81 Restless legs syndrome; K31.84 Gastroparesis; G47.33 Obstructive sleep apnea (adult) (pediatric); K21.9 Gastro-esophageal reflux disease without esophagitis; F41.9 Anxiety disorder, unspecified; B96.20 Unspecified Escherichia coli [E. coli] as the cause of diseases classified elsewhere; G89.29 Other chronic pain; R09.02 Hypoxemia; Z79.01 Long term (current) use of anticoagulants; Z79.52 Long term (current) use of systemic steroids; Z79.85 Long-term (current) use of injectable non-insulin antidiabetic drugs; Z79.899 Other long term (current) drug therapy; Z86.711 Personal history of pulmonary embolism; Z80.1 Family history of malignant neoplasm of trachea, bronchus and lung
CPT/HCPCS: 36415; 36600; 71045; 71275; 80048; 80053; 80202; 81001; 82803; 82962; 83605; 83735; 84100; 85025; 85610; 85730; 87040; 87070; 87077; 87086; 87088; 87186; 87205; 87428; 87449; 93005; 94640; 99285; J7030; J7040; Q9967; A4216; J2405

== ENCOUNTER 2023-08-17 20:24 | Inpatient (IN) | payer MEDICARE, MEDICAID, SELFPAY ==
[2023-08-17] VITALS (9 sets, daily range): BP systolic 93–131; BP diastolic 53–81; PULSE 128–153; RESP 21–36; TEMP 36.7; O2SAT 80–100; BMI 60.5
--- NOTE | 2023-08-17 20:24 | HP.PCM.HOS_ITS ---
HPI - General General Date of Admission: 08/17/23 Date of Service: 08/17/23 Chief Complaint: Fatigue, malaise, nausea, poor intake, body aches. HPI Narrative The patient is a 52 y/o F w/ PMHx: Morbid obesity, Hx VTE (PE, DVT) with MTHFR mutation/Lupus anticoagulant disorder chronically anticoagulated, GERD, Anxiety and Depression, Diabetes mellitus type II with chronic neuropathy/gastroparesis, Chronic back pain on SL buprenorphine, Chronic anemia/Fe deficiency anemia, Hx GI Bleed/chronic blood loss with esophageal varices, KIKI, Rheumatoid arthritis, Chronic sinus tachycardia, CKD stage II per current trending but prior chart reported Hx CHD stage IIIa, recent discharge 07/02/23 following LLL PNA, sepsis and complicated UTI who now re-presents to the [facility] as direct admission from [facility] ED on 08/17/2023 w/ history of progressively worsening fatigue, malaise, generalized body aches and discomforts as well as fevers and chills prompting outside ED evaluation. Workup at the outside ED was notable for significant tachycardia although BP stable with lactate 3.3 and CBC with WBC 30,000 in addition to creatinine 2.0, unremarkable urinalysis, chest x-ray with no overt findings but difficult given habitus with attempted CT scan however patient was unable to tolerate secondary to anxiety given initially there was unclear source for infection. Patient was administered broad-spectrum antibiotic therapy and IV fluids. From discussion with patient she had recently been evaluated for discomfort at this outside hospital ED and at that time midweek prior to current presentation she was reportedly told to stop her buprenorphine and was transitioned to an oral as needed Percocet regimen and since then has had significant worsening body aches, fatigue, malaise, nausea without emesis and poor oral intake. Upon evaluation upon arrival patient did have right hand mild redness as well as mild edema with tenderness palpation and increased warmth in addition to left lower extremity tenderness to palpation and mild lateral distal leg redness both of which she states were not there previously. She does states she has a cough but it is chronic and dry and unchanged. Patient also reports that she did not take her beta-alicia therapy on day of presentation with known chronic sinus tachycardia. [facility] Medical History (Updated 08/17/23 @ 23:[address] Berna Cisneros MD) Anemia Anticoagulant long-term use Anxiety and depression CKD (chronic kidney disease) Compartment syndrome of left lower extremity Diabetes mellitus, type 2 Gastroparesis GERD (gastroesophageal reflux disease) History of pulmonary embolism Iron deficiency anemia due to chronic blood loss USP current use of anticoagulant Lupus anticoagulant disorder Morbid obesity MTHFR mutation KIKI (obstructive sleep apnea) Pleural effusion, left Pulmonary embolism Rheumatoid arthritis RLS (restless legs syndrome) Sinus tachycardia Home Medications bupropion HCl 300 mg 24 hr tablet, extended release 300 mg PO DAILY mental health 08/25/18 [History Last Taken 09/20/22] ropinirole 2 mg tablet,extended release 24 hr 2 mg PO QHS restless legs 08/25/18 [History Last Taken 09/20/22] rivaroxaban 20 mg tablet (Xarelto) 20 mg PO DAILY blood thinner 06/01/22 [History Last Taken 09/20/22] Probiotic 1 ea PO/SL DAILY IMMUNE HEALTH 09/21/22 [History Last Taken 09/20/22] atenolol 50 mg tablet 50 mg PO DAILY HEART 09/21/22 [History Last Taken 09/20/22] biotin 1 ea PO/SL DAILY SUPPLEMENT 09/21/22 [History Last Taken 09/20/22] brexpiprazole 1 mg tablet (Rexulti) 1 mg PO DAILY MENTAL HEALTH 09/21/22 [History Last Taken 09/20/22] buspirone 10 mg tablet 10 mg PO DAILY ANXIETY 09/21/22 [History Last Taken 09/20/22] buspirone 10 mg tablet 20 mg PO QHS ANXIETY 09/21/22 [History Last Taken 09/20/22] fluvoxamine 100 mg tablet 100 mg PO DAILY MENTAL HEALTH 09/21/22 [History Last Taken 09/20/22] prednisone 5 mg tablet 10 mg PO DAILY RA 09/21/22 [History Last Taken 09/20/22] pantoprazole 40 mg tablet,delayed release 40 mg PO BID reflux #60 tabs 10/26/22 [Rx Last Taken Unknown] sucralfate 1 gram tablet 1 g PO Q6H reflux #120 tabs 10/26/22 [Rx Last Taken Unknown] tocilizumab 162 mg/0.9 mL subcutaneous syringe (Actemra) 162 mg subcut .weekly 03/18/23 [History Last Taken Unknown] promethazine 25 mg tablet 25 mg PO Q6H PRN nausea and vomiting #120 tabs 3 [Rx Last Taken Unknown] buprenorphine HCl 150 mcg buccal film (Belbuca) 150 mcg buccal Q12H pain relief 06/29/23 [History Last Taken Unknown] duloxetine 30 mg capsule,delayed release 30 mg PO DAILY mental health 06/29/23 [History Last Taken Unknown] quetiapine 50 mg tablet 50 mg PO QHS sleep 06/29/23 [History Last Taken Unknown] semaglutide 0.25 mg or 0.5 mg (2 mg/3 mL) subcutaneous pen injector (Ozempic) 0.5 mg subcut QWEEK diabetes 06/29/23 [History Last Taken Unknown] tizanidine 4 mg tablet 4 mg PO QHS spasms 06/29/23 [History Last Taken Unknown] triamcinolone acetonide 0.025 % topical cream 1 applic topical BID PRN celiac rash 06/29/23 [History Last Taken Unknown] amoxicillin 500 mg tablet 1,000 mg (2 x 500 mg) PO TID #36 tabs 07/02/23 [Rx Last Taken Unknown] pramipexole 0.75 mg tablet 0.75 mg PO TID 08/17/23 [History Last Taken Unknown] Allergy/AdvReac Type Severity Reaction Status Date / Time adhesive tape AdvReac Rash Verified 06/29/23 09:22 Family History Mother Cancer Lung CA w/ concurrent tobacco use. Heart disease unable to obtain (Patient denies knowing any of her paternal family history.) Surgical History History of fasciotomy History of hysterectomy History of total bilateral knee replacement S/P pericardial window creation Social History household members: family Smoking Status: Never smoker alcohol intake: never substance use type: does not use ROS ROS Narrative Admission Review of Systems: CONSTITUTIONAL: No weight loss, + fever, chills, weakness or fatigue. HEENT: Eyes: No visual loss, blurred vision, double vision or yellow sclerae. Ears, Nose, Throat: No hearing loss, sneezing, congestion, runny nose or sore throat. SKIN: No rash or itching, lesions, wounds but upon evaluation + R hand erythema/edema, LLE erythema/edema. CARDIOVASCULAR: + Palpitations/tachycardia, acute on chronic edema component. No chest pain, chest pressure or chest discomfort, orthopnea, syncopal events. RESPIRATORY: + Shortness of breath, dry chronic cough. No marked sputum, wheezing, hemoptysis. GASTROINTESTINAL: + anorexia, nausea without vomiting, No diarrhea, abdominal pain, melena, BRBPR. GENITOURINARY: No dysuria, frequency, urgency or retention. NEUROLOGICAL: No headache, dizziness, syncope, paralysis, ataxia, numbness or tingling in the extremities, focal weakness, change in bowel or bladder control, seizure. MUSCULOSKELETAL: + muscle, back pain, joint pain or stiffness. HEMATOLOGIC: + anemia, easy bleeding/bruising. LYMPHATICS: No enlarged nodes. No history of splenectomy. PSYCHIATRIC: + history of depression and anxiety. ENDOCRINOLOGIC: No reports of sweating, cold or heat intolerance. No polyuria or polydipsia. ALLERGIES: No history of asthma, hives, eczema or rhinitis. Physical Exam Narrative Physical Examination: General: Awake, alert, oriented x 3 and cooperative, seated upright in ICU bed as PCU status in no apparent distress but reporting diffuse body aches and following lengthy discussion suspect she is undergoing opiate withdrawal from recent pain medication sudden changes. Skin: Normal color, normal turgor, no icterus, no cyanosis except as noted right hand with mild erythema not involving the palm with some mild edema and tenderness palpation as well as left lower extremity lateral distal leg mild erythema with also mild pitting edema. HEENT: AT/NC, EOMI, PERRLA, moderately dry MM, no carotid bruits or JVD noted; however thickened neck makes evaluation difficult. Lungs: Diminished, distant, mildly increased respiratory rate but no distress, no rales, ronchi or wheezing. Heart: Tachycardic with regular rhythm; no gallop, rub audible. Abdomen: Soft, morbidly obese, NTTP, ND, distant normal BS, difficult to appreciate HSM given habitus Extremities: No cyanosis, no clubbing, see skin. Neurological: Patient awake, alert, oriented as noted, cognitive function intact; pupils equally reactive to light and accommodation, cranial nerves II- XII grossly normal, moving all 4 extremities, no focal deficits, strength moderately to severely global decrease secondary to acute presentation complaints as noted. Psychiatric: Affect appears fatigued otherwise normal, no acute evidence of depressive or anxiety feelings but does have underlying history. Assessment & Plan Assessment/Plan (1) Cellulitis: PLAN: Plan The patient is a 52 y/o F w/ PMHx: Morbid obesity, Hx VTE (PE, DVT) with MTHFR mutation/Lupus anticoagulant disorder chronically anticoagulated, GERD, Anxiety and Depression, Diabetes mellitus type II with chronic neuropathy/gastroparesis, Chronic back pain on SL buprenorphine, Chronic anemia/Fe deficiency anemia, Hx GI Bleed/chronic blood loss with esophageal varices, KIKI, Rheumatoid arthritis, Chronic sinus tachycardia, CKD stage II per current trending but prior chart reported Hx CHD stage IIIa, recent discharge 07/02/23 following LLL PNA, sepsis and complicated UTI who now re-presents to the [facility] as direct admission from [facility] ED on 08/17/2023 w/ history of progressively worsening fatigue, malaise, generalized body aches and discomforts as well as fevers and chills prompting outside ED evaluation. #1. RUE Hand and LL Extremity Cellulitis: Will admit to PCU status, maintain on IV vanc and zosyn given presentation per cellulitis order set protocol, to be cautious however will repeat UA/UCx, repeat CXR in AM after overnight hydration, obtain full respiratory viral panel, obtain repeat LA, obtain ESR/CRP, obtain procalcitonin as well as inflammatory markers, obtain urine antigens, plan repeat CBC in AM, continue affected extremity elevation above heart when seated and in bed, monitor erythema outline with VS checks. Patient reports being compliant with her anticoagulation. Patient is on chronic oral steroid low-dose regimen and if worsens low threshold to initiate stress dose steroids. In addition we will give patient beta-alicia therapy now given she missed her dose and this is likely contributing in someway to her notable tachycardia. Also from review of recent OSH ED records she was seen on 08/15/23 for L knee pain s/p fall with unremarkable plain film and also noted LLE increased mild edema with unremarkable duplex US. Pending response to interventions as noted low threshold to image further or involve Orthopedics given history of prior compartment syndrome. #2. High suspicion acute opiate withdrawal with chronic back pain on chronic buprenorphine therapy: Do suspect that this is also contributing to her current presentation as she was inappropriately taken off her underlying chronic pain management to an as needed short acting agent in the setting of acute pain. Discussed with her the need to restart buprenorphine with dose now and will continue overlapping short acting pain regimen as needed. Encourage frequent positional changes, PT/OT/CM consultation for discharge planning. #3. Acute kidney injury on CKD stage II per current trending but previous chart reported history noted CKD stage IIIa: Secondary to acute presentation #1 and #2 with poor recent oral intake. Outside hospital ED evaluation with BUN/creatin ine 39/2.02, prior baseline creatinine noted to be primarily 0.7-0.9. Will hydrate, hold nephrotoxic medications and repeat chemistry in AM. If no improvement would plan FeNa and renal assessment. #4. Anxiety and depression: We will continue patient home aggressive psychiatric regimen including Rexulti, bupropion, BuSpar, duloxetine, fluvoxamine, Seroquel with encouraged aggressive early follow-up with her psychiatrist/psychologist and continued outpatient counseling. #5. Rheumatoid arthritis: We will continue patient home low-dose prednisone therapy however clinically worsens low threshold to transition to stress dose steroids. #6. Chronic anemia/iron deficiency anemia: OSH ED CBC w/ hemoglobin 8.7, baseline noted previously also 8, continue to trend, encourage continued outpatient follow-up with hematology as previously arranged. Continue iron supplementation. #7. Morbid Obesity: Weight loss and lifestyle changes encouraged. #8. History VTE with MTHFR mutation/Lupus anticoagulant disorder: We will continue patient Xarelto regimen. #9. Diabetes mellitus type II: Hold oral home regimen, ADA diet, accu checks w/ ISS. #10. GERD with history GI bleed, esophageal varices: We will continue patient home PPI and sucralfate regimen. #11. Restless leg syndrome: We will continue patient on pramipexole regimen. #12. KIKI: CPAP nightly. #13. DVT prophylaxis: We will continue patient home chronic Xarelto regimen. Charges/Coding Visit Charges Inpatient E&M: 66152 Init Hosp L3
[2023-08-17] MEDS: Atenolol 50 MG Tablet PO (21:05)
[2023-08-17] MEDS: 0.9% Saline Lock 10 ML Syringe IV (21:05)
[2023-08-17] MEDS: Metoprolol Tartrate 5 MG/5 ML Vial IV (21:06)
[2023-08-17 21:21] LABS: Erythrocyte Sedimentation Rate 16 mm/hr (0-30)
[2023-08-17] MEDS: 0.9% Normal Saline (1000mL) 1,000 ML 999 ML IV (21:21)
[2023-08-17 21:29] LABS: Mucous, Urine 0 SEEN /hpf (<or=2+)
[2023-08-17 21:34] LABS: Color, Urine Yellow (Yellow); Glucose, Dipstick Normal (Normal); Ketone-Dipstick 5 mg/dl (Negative); Leukocyte Esterase-Dipstick 100 /ul (Negative); Nitrite-Dipstick Negative (Negative); Occult Blood-Urine Negative /ul (Negative); Protein-Dipstick 30 mg/dl (Negative); Urine Clarity Sl. Cloudy (Clear); Urine Urobilinogen Normal (Normal)
[2023-08-17 21:35] LABS: Urine Bilirubin Dipstick 1 mg/dL (Negative)
[2023-08-17 21:43] LABS: Hyaline Cast 5-10 SEEN /lpf (0-5)
[2023-08-17 21:44] LABS: Bacteria 1+ /hpf (None Seen); Red Blood Cells-Urine 0-5 SEEN /hpf (0-5); Squamous Epithelial Cells - UA 0-5 SEEN /hpf (5-10); White Blood Cells 5-10 SEEN /hpf (0-5)
[2023-08-17 21:45] LABS: Procalcitonin 2.66 ng/mL (0.00-0.09)
[2023-08-17] MEDS: Acetaminophen 325 MG Tablet 650 MG PO (21:49)
[2023-08-17] MEDS: Ondansetron 4 MG/2 ML Vial IV (21:49)
[2023-08-17] MEDS: Buprenorphine HCl 2 MG TAB.SUBL SL (21:49)
[2023-08-17] MEDS: tiZANidine HCl 2 MG Tablet 4 MG PO (21:50)
[2023-08-17] MEDS: busPIRone 5 MG Tablet 20 MG PO (21:50)
[2023-08-17] MEDS: Menthol/Lanolin/Calamine/Znox 113 GM Tube 1 APPLIC TOPICAL (21:50)
[2023-08-17] MEDS: Sucralfate 1 GM Tablet PO (21:50)
[2023-08-17] MEDS: Pantoprazole Sodium 40 MG Tablet PO (21:50)
[2023-08-17] MEDS: QUEtiapine 25 MG Tablet 50 MG PO (21:51)
[2023-08-17] MEDS: Nystatin Powder 15gm Bottle 1 APPLIC TOPICAL (21:52)
[2023-08-17] MEDS: Vancomycin HCl 2,000 MG in 0.9% Normal Saline (500mL Bag) 500 ML 250 MG IV (21:52)
[2023-08-17] MEDS: Pramipexole Di-HCl 0.25 MG Tablet PO (21:52)
[2023-08-17 21:55] LABS: Lactic Acid 2.9 mmol/L (0.4-1.9)
[2023-08-17] MEDS: 0.9% Normal Saline (1000mL) 1,000 ML 125 ML IV (22:07)
[2023-08-17] MEDS: fentaNYL 100 MCG/2 ML Ampul 25 MCG IV (22:10)
[2023-08-17 22:26] LABS: Bedside Glucose 115 mg/dL (74-106)
[2023-08-17 22:29] LABS: M R Staph aureus DNA By PCR Negative (Negative); Probe Check PASS; Specimen Processing Control PASS
[2023-08-18] VITALS (21 sets, daily range): BP systolic 98–121; BP diastolic 51–88; PULSE 107–124; RESP 24–39; TEMP 36.6–37.4; O2SAT 80–100; BMI 61.7
[2023-08-18] MEDS: MENTHOL 226.8 GM JAR 1 APPLIC TOPICAL ×2 (00:02→21:08)
[2023-08-18] MEDS: Piperacil/Tazobactam 3.375 GM in 0.9% Normal Saline (50mL MB+) 50 ML IV ×4 (00:03→23:39)
[2023-08-18 01:04] LABS: Reflex Lactate? Y
[2023-08-18 02:25] LABS: Lactic Acid 1.8 mmol/L (0.4-1.9)
--- NOTE | 2023-08-18 02:37 | CPS ---
CPAP increased to 10cm. H2O due to patient needs
--- NOTE | 2023-08-18 02:38 | CPS ---
2L O2 added in with CPAP HS
[2023-08-18 04:08] LABS: Absolute Lymphocyte Count 1.03 X10^3/uL (0.83-4.51); Absolute Neutrophil Count 23.6 X10^3/uL (2.0-7.7); Basophil# 0.09 X10^3/uL; Basophil% 0.3 % (0-1); Eosinophil# 0.47 X10^3/uL; Eosinophils% 1.8 % (0-5); Hematocrit 25.3 % (37-47); Hemoglobin 6.9 g/dL (12.0-15.0); Lymphocyte # 1.03 X10^3/ul (0.83-4.51); Lymphocyte % 3.9 % (19-41); Mean Corp Hgb Conc 27.3 g/dL (32-36); Mean Corpuscular Volume 77.1 fL (81-99); Mean Platelet Vol. 9.2 fl (6.2-12.0); Monocyte# 1.07 X10^3/uL; NRBC Flagged by Analyzer 1.1 % (0-5); Neutrophil # 23.64 X10^3/uL (2.7-7.7); Neutrophil % 89.1 % (47-70); POSITIVE DIFFERENTIAL YES; POSITIVE MORPHOLOGY YES; Platelet Count 396 K/mm3 (150-450); RBC Distribution Width CV 17.2 % (11.6-14.6); RBC Distribution Width SD 46.8 fl (35.1-43.9); Red Blood Count 3.28 M/mm3 (4.2-5.4); White Blood Count 26.6 K/mm3 (4.4-11.0)
[2023-08-18 04:10] LABS: Differential Indicated SCAN CRITERIA MET
[2023-08-18 04:30] LABS: ALB/GLOB Ratio 0.6 RATIO (0.9-2.4); AST(SGOT) 114 U/L (15-37); Alanine Aminotransfer ALT/SGPT 37 U/L (13-56); Albumin, Serum 2.1 g/dL (3.2-5.0); Alkaline Phosphatase 85 U/L (45-117); Anion Gap 6 (5-15); BUN 45 mg/dL (7-18); BUN/Creat Ratio 32.8 RATIO (10-20); Calcium,Total 8.3 mg/dL (8.5-10.1); Chloride 102 mmol/L (98-107); Creatinine, Serum 1.37 mg/dL (0.55-1.02); EST Glomerular Filtration Rate 43 mL/min (>60); Est Glom Filt Rate - Afr Amer 52 mL/min (>60); Estimated Creatinine Clearance 78.58 ml/min; Globulin 3.3 g/dL (2.2-4.2); Glucose 148 mg/dL (74-106); Potassium 4.5 mmol/L (3.5-5.1); Protein, Total 5.4 g/dL (6.4-8.2); Sodium Level 131 mmol/L (136-145)
[2023-08-18] MEDS: Nystatin Powder 15gm Bottle 1 APPLIC TOPICAL ×3 (05:47→21:07)
[2023-08-18] MEDS: Pramipexole Di-HCl 0.25 MG Tablet PO ×3 (05:48→21:05)
[2023-08-18] MEDS: Sucralfate 1 GM Tablet PO ×3 (05:48→21:05)
--- NOTE | 2023-08-18 05:55 | RAD_ITS ---
EXAM: XR CHEST, 1 VIEW CLINICAL INDICATION: SIRS, unclear source TECHNIQUE: Frontal view of the chest. COMPARISON: 06/29/2023. FINDINGS: LUNGS AND PLEURAL SPACES: Pulmonary hypoinflation. No obvious infiltrates. No pneumothorax. No effusion. HEART: Cardiomegaly. MEDIASTINUM: Central airways and mediastinal contour are unremarkable. BONES/JOINTS: Unremarkable. No acute fracture. SOFT TISSUES: Unremarkable. OTHER FINDINGS: Markedly rotated chest positioning. RAD/Chest 1 View (Portable) IMPRESSION: No acute cardiopulmonary pathology considering rotated chest positioning and limited inspiratory effort. Electronically Signed: Tan Bejarano MD at 8:30 EST ,
--- NOTE | 2023-08-18 06:03 | PCM.RX.CS ---
Consult Antibiotic Management Pharmacy has been consulted to manage selected antibiotic: Vancomycin Type of Intervention Type of Consult: New start Labs Labs: Sodium 131 mmol/L (136-145) L 08/18/23 04:00 Potassium 4.5 mmol/L (3.5-5.1) 08/18/23 04:00 Chloride 102 mmol/L (98-107) 08/18/23 04:00 Carbon Dioxide 23.0 mmol/L (21.0-32.0) 08/18/23 04:00 Anion Gap 6 (5-15) 08/18/23 04:00 BUN 45 mg/dL (7-18) H 08/18/23 04:00 Creatinine 1.37 mg/dL (0.55-1.02) H 08/18/23 04:00 Est GFR (MDRD) Af Amer 52 mL/min (>60) L 08/18/23 04:00 Est GFR (MDRD) Non-Af 43 mL/min (>60) L 08/18/23 04:00 BUN/Creatinine Ratio 32.8 RATIO (10-20) H 08/18/23 04:00 Glucose 148 mg/dL (74-106) H 08/18/23 04:00 Microbiology Microbiology: Microbiology 08/17/23 21:15 Urine Catheter - Catheter Legionella Antigen - Final 08/17/23 21:15 Urine Catheter - Catheter Streptococcus pneumoniae Antigen (M - Final Dosing Weight Weight used for dosin.1 kg Estimated Creatinine Clearance Estimated Creatinine Clearance: 79.8 Goal Trough Goal Trough: 15-20 mcg/mL Pharmacy Plan for Drug Dosing Pharmacy Plan for Drug Dosing: Pharmacy Service will continue to monitor and adjust dosing as required. Follow-Up Labs Follow-Up Labs: Trough: Vancomycin Date/Time Labs Ordered Labs to be done on [date and time ordered]: 08/18@2537
--- NOTE | 2023-08-18 06:45 | PCM.HOSP.N ---
Hospitalist Note Hgb this AM 6.9, will order 1 u PRBC and request guiac as well as as repeat Hgb. If decreasing or + guiac may need to consider GI consultation.
[2023-08-18 06:47] LABS: Differential Comment SCANNED
--- NOTE | 2023-08-18 07:04 | PN.HOSP_ITS ---
Reason for Visit Reason for Visit: Diagnoses Cellulitis, unspecified (08/17/23) Subjective Subjective Patient is a 52-year-old lady with multiple comorbidities who was transferred from [place] emergency department with fatigue, nausea and bodyaches. Patient was found to be tachycardic with leukocytosis with questionable cellulitis involving the right hand. Treatment initiated per protocol patient admitted to the intensive care unit for further management Objective Data Objective Data Vital Signs: Vital Signs Temp Pulse Resp BP Pulse Ox O2 Del Method O2 Flow Rate 97.8 F 120 H 37 H 101/61 93 Nasal Cannula 2 08/18/23 04:04 08/18/23 07:00 08/18/23 07:00 08/18/23 07:00 08/18/23 07:00 08/18/23 07:00 08/18/23 07:00 FiO2 28 08/18/23 02:36 Oxygen Flow Rate (L/min) 2 Oxygen Delivery Method Nasal Cannula Weight: 174.1 kg Body Mass Index (BMI) 61.7 Intake & Output: Intake and Output for Last 24 Hours 08/16/23 08/17/23 08/18/23 23:59 23:59 23:59 Intake Total 1800 / 2000 1989 Output Total 100 / 100 Balance 1700 / 1900 1989 Lab / Micro Data 08/18/23 04:00 08/18/23 04:00 Labs: Laboratory Results - last 24 hr 08/17/23 20:56: ESR 16, Lactic Acid 2.9 H*, C-React Prot Ext Range 231.00 H, Procalcitonin 2.66 H 08/17/23 21:01: MRSA (PCR) Negative 08/17/23 21:15: Urine Color Yellow, Urine Clarity Sl. Cloudy, Urine pH 6.0, Ur Specific [place] 1.020, Urine Protein 30 H, Urine Glucose (UA) Normal, Urine Ketones 5 H, Urine Occult Blood Negative, Urine Nitrite Negative, Urine Bilirubin 1 H, Urine Urobilinogen Normal, Ur Leukocyte Esterase 100 H, Urine RBC 0-5 SEEN, Urine WBC 5-10 SEEN, Ur Squamous Epith Cells 0-5 SEEN, Urine Bacteria 1+, Hyaline Casts 5-10 SEEN, Urine Mucus 0 SEEN 08/17/23 22:06: POC Glucose 115 H 08/18/23 01:50: Lactic Acid 1.8 08/18/23 04:00: WBC 26.6 H, RBC 3.28 L, Hgb 6.9 L, Hct 25.3 L, MCV 77.1 L, MCH 21.0 L, MCHC 27.3 L, RDW Std Deviation 46.8 H, RDW Coeff of Chepe 17.2 H, Plt Count 396, MPV 9.2, Immature Gran % (Auto) 0.900, Neut % (Auto) 89.1 H, Lymph % (Auto) 3.9 L, Haakon % (Auto) 4.0, Eos % (Auto) 1.8, Baso % (Auto) 0.3, Absolute Neuts (auto) 23.6 H, Absolute Lymphs (auto) 1.03, Nucleated RBC % 1.1, Differential Comment SCANNED, Sodium 131 L, Potassium 4.5, Chloride 102, Carbon Dioxide 23.0, Anion Gap 6, BUN 45 H, Creatinine 1.37 H, Estim Creat Clear Calc 78.58, Est GFR (MDRD) Af Amer 52 L, Est GFR (MDRD) Non-Af 43 L, BUN/Creatinine Ratio 32.8 H, Glucose 148 H, Calcium 8.3 L, Total Bilirubin 0.50, AST 114 H, ALT 37, Alkaline Phosphatase 85, Total Protein 5.4 L, Albumin 2.1 L, Globulin 3.3, Albumin/Globulin Ratio 0.6 L 08/18/23 06:45: Crossmatch See Detail Micro: Microbiology 08/17/23 21:15 Urine Catheter - Catheter Legionella Antigen - Final 08/17/23 21:15 Urine Catheter - Catheter Streptococcus pneumoniae Antigen (M - Final Physical Exam Narrative GENERAL: Somewhat lethargic HEENT: Atraumatic; normocephalic EYES; Anicteric, Normal Conjunctiva NECK; supple, normal thyroid, RESPIRATORY: Diminished to auscultation CARDIOVASCULAR: Regular S1 S2, GI: soft, normoactive bowel sounds, : No Renal angle tenderness; EXTREMITIES: Edema involving all extremities with an area of erythema on the dorsal surface of the right hand and left calf MUSCULOSKELETAL: no muscle wasting NEURO: Awake; no lateralizing signs. SKIN: As described above PSYCH; Flat affect Assessment & Plan Assessment/Plan (1) Cellulitis: PLAN: Plan Patient is a 52-year-old lady with multiple comorbidities who was transferred from [place] emergency department with fatigue, nausea and bodyaches. Patient was found to be tachycardic with leukocytosis with questionable cellulitis involving the right hand. Treatment initiated per protocol patient admitted to the intensive care unit for further management 1. Sepsis ? Secondary to cellulitis involving the right upper extremity as well as lower lower extremity. Patient admitted to the intensive care unit managed per protocol with IV fluid resuscitation broad-spectrum antibiotic therapy after cultures have been sent 2. Hyponatremia ? Secondary to hypovolemic hyponatremia patient be resuscitated with IV fluid with subsequent monitoring of electrolyte 3. Anemia ? Patient Red cell indicis consistent with microcytic anemia do suspect chronic GI bleed given patient being on Xarelto. Did undertake iron studies, guaiac for stool, an order was given for patient to be transfused 1 unit PRBC and consult placed to GI for endoscopic evaluation 4. History of venous thrombosis ? With previous PE and DVT this is secondary to MTHFR mutation/lupus anticoagulant disorder patient is on Xarelto 5. Acute kidney injury ? Patient being resuscitated with IV fluid 6. Morbid obesity with BMI of 62.0 ? Complicating care weight loss advised 7. Chronic pain syndrome ? Patient was previously managed with buprenorphine on recently switched to Percocet. There was a suspicion patient was withdrawing started on buprenorphine 8. Rheumatoid arthritis ? Per history, currently not on any DMARDs 9. Obstructive sleep apnea ? Patient is on CPAP at night 10. GERD ? On PPI 11. Depression with anxiety ? Patient is on multiple as psych medications. Plan is for patient to follow-up with her psychiatrist as outpatient for subsequent medication modification if needed 12. DVT prophylaxis ? Patient already on Xarelto Time spent in the patient's overall evaluation,decision-making process, review of diagnostic data, adjustment of management, discussion with other providers, nursing nursing and ancillary staff involved in patient's care documentation,52 Minutes Charges/Coding Visit Charges Inpatient E&M: 81905 [facility] L3
[2023-08-18] MEDS: predniSONE 10 MG Tablet PO (09:38)
[2023-08-18] MEDS: busPIRone 5 MG Tablet 10 MG PO (09:39)
[2023-08-18] MEDS: Menthol/Lanolin/Calamine/Znox 113 GM Tube 1 APPLIC TOPICAL ×2 (09:40→21:07)
[2023-08-18] MEDS: DULoxetine Hcl 30 MG Capsule PO (09:41)
[2023-08-18] MEDS: fluvoxaMINE Maleate 50 MG Tablet 100 MG PO (09:41)
[2023-08-18] MEDS: Pantoprazole Sodium 40 MG Tablet PO ×2 (09:42→21:05)
[2023-08-18] MEDS: Atenolol 50 MG Tablet PO (09:43)
[2023-08-18] MEDS: buPROPion (XL) 300 MG TABLET.XL PO (09:43)
[2023-08-18] MEDS: Rivaroxaban 20 MG Tablet PO (09:44)
[2023-08-18] MEDS: 0.9% Saline Lock 10 ML Syringe IV ×2 (09:45→21:11)
[2023-08-18] MEDS: Vancomycin HCl 2,000 MG in 0.9% Normal Saline (500mL Bag) 500 ML 250 MG IV ×2 (09:45→21:11)
[2023-08-18] MEDS: Buprenorphine HCl 2 MG TAB.SUBL SL ×2 (09:48→21:10)
[2023-08-18 10:07] LABS: Ferritin 29 ng/mL (8-252); Iron 17 ug/dL (50-170); Iron Binding Capacity,Total 222 ug/dL (250-450); PERCENT IRON SATURATION 7.7 % (15.0-55.0)
[2023-08-18 11:23] LABS: Bedside Glucose 135 mg/dL (74-106)
[2023-08-18] MEDS: CLARIFY ORDER 1 EACH NOTE (14:38)
[2023-08-18 17:05] LABS: Bedside Glucose 143 mg/dL (74-106)
[2023-08-18 20:59] LABS: Hematocrit 24.4 % (37-47); Hemoglobin 6.9 g/dL (12.0-15.0)
[2023-08-18] MEDS: QUEtiapine 25 MG Tablet 50 MG PO (21:05)
[2023-08-18] MEDS: tiZANidine HCl 2 MG Tablet 4 MG PO (21:05)
[2023-08-18] MEDS: busPIRone 5 MG Tablet 20 MG PO (21:06)
[2023-08-18 23:48] LABS: Bedside Glucose 141 mg/dL (74-106)
[2023-08-19] VITALS (11 sets, daily range): BP systolic 90–136; BP diastolic 52–82; PULSE 78–119; RESP 18–28; TEMP 36.6–36.7; O2SAT 93–100; BMI 60.2
[2023-08-19] MEDS: Piperacil/Tazobactam 3.375 GM in 0.9% Normal Saline (50mL MB+) 50 ML IV ×3 (05:20→20:48)
[2023-08-19] MEDS: Nystatin Powder 15gm Bottle 1 APPLIC TOPICAL ×3 (05:46→20:45)
[2023-08-19 06:11] LABS: Absolute Lymphocyte Count 1.74 X10^3/uL (0.83-4.51); Absolute Neutrophil Count 20.1 X10^3/uL (2.0-7.7); Basophil% 0.4 % (0-1); Eosinophil# 0.34 X10^3/uL; Eosinophils% 1.4 % (0-5); Hematocrit 25.6 % (37-47); Hemoglobin 7.4 g/dL (12.0-15.0); Lymphocyte # 1.74 X10^3/ul (0.83-4.51); Lymphocyte % 7.2 % (19-41); Mean Corp Hgb Conc 28.9 g/dL (32-36); Mean Corpuscular Volume 79.5 fL (81-99); Mean Platelet Vol. 9.3 fl (6.2-12.0); Monocyte# 1.36 X10^3/uL; Monocyte% 5.7 % (0-10); NRBC Flagged by Analyzer 1.7 % (0-5); Neutrophil # 20.14 X10^3/uL (2.7-7.7); Neutrophil % 83.9 % (47-70); POSITIVE DIFFERENTIAL YES; POSITIVE MORPHOLOGY YES; Platelet Count 329 K/mm3 (150-450); RBC Distribution Width CV 17.3 % (11.6-14.6); RBC Distribution Width SD 49.1 fl (35.1-43.9); Red Blood Count 3.22 M/mm3 (4.2-5.4)
[2023-08-19 06:41] LABS: Anion Gap 4 (5-15); BUN 38 mg/dL (7-18); BUN/Creat Ratio 42.7 RATIO (10-20); Calcium,Total 8.6 mg/dL (8.5-10.1); Chloride 107 mmol/L (98-107); Creatinine, Serum 0.89 mg/dL (0.55-1.02); EST Glomerular Filtration Rate 71 mL/min (>60); Est Glom Filt Rate - Afr Amer 86 mL/min (>60); Estimated Creatinine Clearance 122.82 ml/min; Glucose 125 mg/dL (74-106); Magnesium 2.4 mg/dL (1.6-2.6); Phosphorus 1.8 mg/dL (2.5-4.9); Potassium 4.5 mmol/L (3.5-5.1); Sodium Level 135 mmol/L (136-145)
[2023-08-19] MEDS: Pramipexole Di-HCl 0.25 MG Tablet PO ×3 (06:51→20:45)
[2023-08-19] MEDS: Sucralfate 1 GM Tablet PO ×4 (06:51→20:44)
[2023-08-19] MEDS: Insulin Lispro 100 UNIT/ML INSULN.PEN SC (06:51)
[2023-08-19] MEDS: 0.9% Saline Lock 10 ML Syringe IV ×2 (06:51→14:26)
[2023-08-19 07:00] LABS: Differential Indicated SCAN CRITERIA MET
[2023-08-19 07:10] LABS: Bedside Glucose 152 mg/dL (74-106)
[2023-08-19 07:13] LABS: Differential Comment SCANNED
[2023-08-19 09:30] LABS: Vancomycin, Trough Level 21.2 ug/mL (5.0-15.0)
--- NOTE | 2023-08-19 09:42 | PN.HOSP_ITS ---
Reason for Visit Reason for Visit: Diagnoses Cellulitis, unspecified (08/17/23) Subjective Subjective Still with pain in left leg. Objective Data Objective Data Vital Signs: Vital Signs Temp Pulse Resp BP Pulse Ox O2 Del Method O2 Flow Rate 36.6 C 119 H 28 H 96/78 94 Nasal Cannula 3 08/19/23 04:00 08/19/23 04:00 08/19/23 04:00 08/19/23 04:00 08/19/23 07:29 08/19/23 07:53 08/19/23 07:53 FiO2 08/18/23 02:36 Oxygen Flow Rate (L/min) 3 Oxygen Delivery Method Nasal Cannula Weight: 170 kg Body Mass Index (BMI) 60.2 Intake & Output: Intake and Output for Last 24 Hours 08/17/23 08/18/23 08/19/23 23:59 23:59 23:59 Intake Total 1800 / 2000 2630 / 2990 951 / 951 Output Total 100 / 100 350 / 700 350 / 350 Balance 1700 / 1900 2280 / 2290 601 / 601 Lab / Micro Data 08/19/23 05:53 08/19/23 05:53 Labs: Laboratory Results - last 24 hr 08/18/23 06:45: Blood Type O POSITIVE, Antibody Screen NEGATIVE, Crossmatch See Detail 08/18/23 07:29: Crossmatch See Detail 08/18/23 09:30: Iron 17 L, TIBC 222 L, Iron Saturation 7.7 L, Ferritin 08/18/23 11:04: POC Glucose 135 H 08/18/23 16:19: POC Glucose 143 H 08/18/23 20:53: Hgb 6.9 L, Hct 24.4 L 08/18/23 21:13: POC Glucose 141 H 08/19/23 05:53: WBC 24.0 H, RBC 3.22 L, Hgb 7.4 L, Hct 25.6 L, MCV 79.5 L, MCH 23.0 L, MCHC 28.9 L D, RDW Std Deviation 49.1 H, RDW Coeff of Chepe 17.3 H, Plt Count 329, MPV 9.3, Immature Gran % (Auto) 1.400 H, Neut % (Auto) 83.9 H, Lymph % (Auto) 7.2 L, Sevier % (Auto) 5.7, Eos % (Auto) 1.4, Baso % (Auto) 0.4, Absolute Neuts (auto) 20.1 H, Absolute Lymphs (auto) 1.74, Nucleated RBC % 1.7, Differential Comment SCANNED, Sodium 135 L, Potassium 4.5, Chloride 107, Carbon Dioxide 24.0, Anion Gap 4 L, BUN 38 H, Creatinine 0.89, Estim Creat Clear Calc 122.82, Est GFR (MDRD) Af Amer 86, Est GFR (MDRD) Non-Af 71, BUN/Creatinine Ratio 42.7 H, Glucose 125 H, Calcium 8.6, Phosphorus 1.8 L, Magnesium 2.4 08/19/23 06:49: POC Glucose 152 H 08/19/23 09:00: Vancomycin Trough 21.2 H Micro: Microbiology 08/17/23 21:15 Urine Catheter - Catheter Urine Culture - Final Culture exhibits no growth. 08/18/23 14:55 Blood Culture (Wb) - Venous Blood Culture - Preliminary 08/17/23 23:58 Mucosa - Nasopharyngeal Respiratory Panel (PCR) - Final 08/17/23 21:15 Urine Catheter - Catheter Legionella Antigen - Final 08/17/23 21:15 Urine Catheter - Catheter Streptococcus pneumoniae Antigen (M - Final Physical Exam Const alert and no apparent distress Resp normal respiratory effort and no retractions Cardio regular rate, regular rhythm, S1 normal heart sound and S2 normal heart sound GI normal to inspection, nondistended, normoactive bowel sounds, soft to palpation, non-tender and non-distended Extremity Extremity Narrative: Area of demarcation from left posterior leg shows no erythema but does have some warmth and is tender to palpation. Assessment & Plan Assessment/Plan (1) Cellulitis: PLAN: Plan Sepsis * Secondary to cellulitis involving the right upper extremity as well as lower lower extremity. Patient admitted to the intensive care unit managed per protocol with IV fluid resuscitation broad-spectrum antibiotic therapy after cultures have been sent * BCx prelim showing GPC. * resp panel negative, Cellulitis and bacteremia: * vanc and pip/tazo * BCx on 08/18 showing S. aureus. * repeat BCx * Cellulitis appears to be improving as there is no erythema in the line of demarcation on LLE. Anemia * Iron-deficient complicated by rivaroxaban * Dropped to 6.9. Chronically anemic, however. Transfused 1 unit PRBCs. * GI consult * Start iron sucrose. Acute kidney injury * ruled out. no additional work up. Chronic conditions: * History of venous thrombosis? With previous PE and DVT this is secondary to MTHFR mutation/lupus anticoagulant disorder patient is on Xarelto * Morbid obesity with BMI of 62.0? Complicating care weight loss advised * Chronic pain syndrome? Patient was previously managed with buprenorphine on recently switched to Percocet. There was a suspicion patient was withdrawing started on buprenorphine * Rheumatoid arthritis? Per history, currently not on any DMARDs * Obstructive sleep apnea? Patient is on CPAP at night * GERD? On PPI * Depression with anxiety? Patient is on multiple as psych medications. Plan is for patient to follow-up with her psychiatrist as outpatient for subsequent medication modification if needed DVT prophylaxis?Patient already on Xarelto Charges/Coding Visit Charges Inpatient E&M: 79056 Subs Hosp L2
[2023-08-19] MEDS: busPIRone 5 MG Tablet 10 MG PO (09:43)
[2023-08-19] MEDS: Buprenorphine HCl 2 MG TAB.SUBL SL ×2 (09:43→20:42)
[2023-08-19] MEDS: Pantoprazole Sodium 40 MG Tablet PO ×2 (09:44→20:45)
[2023-08-19] MEDS: predniSONE 10 MG Tablet PO (09:44)
[2023-08-19] MEDS: fluvoxaMINE Maleate 50 MG Tablet 100 MG PO (09:44)
[2023-08-19] MEDS: buPROPion (XL) 300 MG TABLET.XL PO (09:45)
[2023-08-19] MEDS: Rivaroxaban 20 MG Tablet PO (09:45)
[2023-08-19] MEDS: DULoxetine Hcl 30 MG Capsule PO (09:45)
[2023-08-19] MEDS: BREXPIPRAZOLE 1 MG TABLET PO (09:46)
--- NOTE | 2023-08-19 09:58 | PCM.RX.CS ---
Consult Antibiotic Management Pharmacy has been consulted to manage selected antibiotic: Vancomycin Type of Intervention Type of Consult: Follow-up Labs Labs: Sodium 135 mmol/L (136-145) L 08/19/23 05:53 Potassium 4.5 mmol/L (3.5-5.1) 08/19/23 05:53 Chloride 107 mmol/L (98-107) 08/19/23 05:53 Carbon Dioxide 24.0 mmol/L (21.0-32.0) 08/19/23 05:53 Anion Gap 4 (5-15) L 08/19/23 05:53 BUN 38 mg/dL (7-18) H 08/19/23 05:53 Creatinine 0.89 mg/dL (0.55-1.02) 08/19/23 05:53 Est GFR (MDRD) Af Amer 86 mL/min (>60) 08/19/23 05:53 Est GFR (MDRD) Non-Af 71 mL/min (>60) 08/19/23 05:53 BUN/Creatinine Ratio 42.7 RATIO (10-20) H 08/19/23 05:53 Glucose 125 mg/dL (74-106) H 08/19/23 05:53 Vancomycin Trough 21.2 ug/mL (5.0-15.0) H 08/19/23 09:00 Microbiology Microbiology: Microbiology 08/17/23 21:15 Urine Catheter - Catheter Urine Culture - Final Culture exhibits no growth. 08/18/23 14:55 Blood Culture (Wb) - Venous Blood Culture - Preliminary 08/17/23 23:58 Mucosa - Nasopharyngeal Respiratory Panel (PCR) - Final 08/17/23 21:15 Urine Catheter - Catheter Legionella Antigen - Final 08/17/23 21:15 Urine Catheter - Catheter Streptococcus pneumoniae Antigen (M - Final Goal Trough Goal Trough: 15-20 mcg/mL Pharmacy Plan for Drug Dosing Pharmacy Plan for Drug Dosing: VANCOMYCIN LEVEL RECEIVED Current Vancomycin Dose: 2000mg IV Q12hr Number of Doses Received: 3 Vancomycin Level: 21.2 Hours Since Last Dose: 24hr Renal Function: 0.89 Renal Function Trend: SCr improved from yesterday Lab/Micro: BCx growing GPC Vancomycin Plan/Comments: Patient had a trough drawn which resulted in a value of 21/2 (goal 15-20). Trough was drawn appropriately. Since trough is >20, will hold subsequent doses of vancomycin and resume scheduled dosing once trough level is less than 20. STOP scheduled vancomycin doses at this time. Pending Level: *RANDOM* level 08/19/23 @2100 Pharmacy Service will continue to monitor and adjust dosing as required.
[2023-08-19] MEDS: Atenolol 50 MG Tablet PO (10:24)
[2023-08-19] MEDS: Sodium Ferric Gluconat 250 MG in 0.9% Normal Saline 250 ML 135 MG IV (10:51)
[2023-08-19 12:52] LABS: Bedside Glucose 135 mg/dL (74-106)
[2023-08-19] MEDS: Menthol/Lanolin/Calamine/Znox 113 GM Tube 1 APPLIC TOPICAL (14:27)
--- NOTE | 2023-08-19 15:00 | CASEMGMT ---
ZENON ROMAN Assessment: RN CM to room to meet with patient for initial transition planning/care coordination assessment. ZENON ROMAN introduced self and role at [facility]. Patient resting in bed, alert and oriented. Patient willing to participate in assessment and is able to answer all questions appropriately. Care providers, pharmacy, and demographics verified. PCP: Dr Dubon. Specialists: Dr. Farfan, [facility]; Dr Negrete, pain; Dr Mcgill, GI; Dr Rivers, oncology Preferred Pharmacy: [facility], [place] [address] [place] [address] [place] Insurance: Mayelin MERRILL Dual, [facility] Prescription Benefit: yes Living Will/HPOA: pt does not have these documents, but would like to complete and states would like her daughter, Margie to be her POA. Nimo EDEN, made aware. Pt made aware if SW unable to complete these while in the hospital, this can be completed w/SW as an OP. LNOK: daughter, Erin. Pt has 4 other adult children. Living Arrangements: Patient lives alone in a lower level apartment with 5 steps and railing to enter the home. Patient states she was is independent up until about a week and 1/2 ago when she fell and then fell again the next day. She states since then, she has developed lt left and foot pain and has become weaker and weaker every day until she got to the point she could not walk and the pain was severe. She then called the squad to come to the ED. Transportation: self, sister DME: Patient has cpap, nebulizer, O2 thru [employer] @ 3 l/m w/exertion, and walker at home. HHC/SNF: Patient states she has been to SNF in past but could not recall facility name. Pt has had [facility] in the past. Discussed discharge planning. Pt states she was getting scared at home w/how weak she was. She feels she needs to go to a SNF @ discharge before returning home. Nimo EDEN, and d/c production planning manager, Cynthia, was made aware. Pt made aware a SNF list will be provided for her to review. She voices appreciation. Plan: SNF. Sharyn GRUBBS RN, CM
--- NOTE | 2023-08-19 15:55 | CASEMGMT ---
Discharge Planning A list of?SNF providers including quality and resource use data and consistent with the patient's preferred geographic region, medical needs, and insurance network was created in [employer]Port Guide.? This list was provided to the SW. Cynthia Marcelo Discharge Planning Asst.
[2023-08-19 17:33] LABS: Bedside Glucose 150 mg/dL (74-106)
[2023-08-19] MEDS: busPIRone 5 MG Tablet 20 MG PO (20:44)
[2023-08-19] MEDS: tiZANidine HCl 2 MG Tablet 4 MG PO (20:46)
[2023-08-19] MEDS: QUEtiapine 25 MG Tablet 50 MG PO (20:46)
[2023-08-19 21:11] LABS: Bedside Glucose 123 mg/dL (74-106)
--- NOTE | 2023-08-19 22:24 | PCM.RX.CS ---
Consult Antibiotic Management Pharmacy has been consulted to manage selected antibiotic: Vancomycin Type of Intervention Type of Consult: Follow-up Labs Labs: Sodium 135 mmol/L (136-145) L 08/19/23 05:53 Potassium 4.5 mmol/L (3.5-5.1) 08/19/23 05:53 Chloride 107 mmol/L (98-107) 08/19/23 05:53 Carbon Dioxide 24.0 mmol/L (21.0-32.0) 08/19/23 05:53 Anion Gap 4 (5-15) L 08/19/23 05:53 BUN 38 mg/dL (7-18) H 08/19/23 05:53 Creatinine 0.89 mg/dL (0.55-1.02) 08/19/23 05:53 Est GFR (MDRD) Af Amer 86 mL/min (>60) 08/19/23 05:53 Est GFR (MDRD) Non-Af 71 mL/min (>60) 08/19/23 05:53 BUN/Creatinine Ratio 42.7 RATIO (10-20) H 08/19/23 05:53 Glucose 125 mg/dL (74-106) H 08/19/23 05:53 Vancomycin Trough 21.2 ug/mL (5.0-15.0) H 08/19/23 09:00 Random Vancomycin 10.0 ug/mL (0.0-15.0) 08/19/23 21:05 Microbiology Microbiology: Microbiology 08/18/23 14:45 Blood Culture (Wb) - Anticubital Right Blood Culture - Preliminary 08/18/23 14:55 Blood Culture (Wb) - Venous Bacteria Detection (PCR) - Final Staphylococcus aureus 08/18/23 14:55 Blood Culture (Wb) - Venous Blood Culture - Preliminary 08/17/23 21:15 Urine Catheter - Catheter Urine Culture - Final Culture exhibits no growth. 08/17/23 23:58 Mucosa - Nasopharyngeal Respiratory Panel (PCR) - Final 08/17/23 21:15 Urine Catheter - Catheter Legionella Antigen - Final 08/17/23 21:15 Urine Catheter - Catheter Streptococcus pneumoniae Antigen (M - Final Goal Trough Goal Trough: 15-20 mcg/mL Pharmacy Plan for Drug Dosing Pharmacy Plan for Drug Dosing: Pharmacy Service will continue to monitor and adjust dosing as required. RANDOM LEVEL 10.0. START 1750MG Q12H AND FOLLOW UP TROUGH PRIOR TO 4TH DOSE Follow-Up Labs Follow-Up Labs: Trough: Vancomycin Date/Time Labs Ordered Labs to be done on [date and time ordered]: 08/21 @ 1000
[2023-08-19] MEDS: Vancomycin HCl 1,750 MG in 0.9% Normal Saline (500mL Bag) 500 ML 250 MG IV (22:43)
[2023-08-20] VITALS (11 sets, daily range): BP systolic 110–154; BP diastolic 69–86; PULSE 99–115; RESP 16–18; TEMP 36.4–36.8; O2SAT 85–100; BMI 60.5
[2023-08-20] MEDS: 0.9% Saline Lock 10 ML Syringe IV (06:00)
[2023-08-20] MEDS: Sucralfate 1 GM Tablet PO ×4 (06:00→22:55)
[2023-08-20] MEDS: Piperacil/Tazobactam 3.375 GM in 0.9% Normal Saline (50mL MB+) 50 ML IV (06:00)
[2023-08-20] MEDS: Pramipexole Di-HCl 0.25 MG Tablet PO ×3 (06:00→22:55)
[2023-08-20] MEDS: Nystatin Powder 15gm Bottle 1 APPLIC TOPICAL ×3 (06:01→22:56)
[2023-08-20 06:27] LABS: Bedside Glucose 101 mg/dL (74-106)
--- NOTE | 2023-08-20 08:35 | PCM.PN.HOSP ---
Reason for Visit Reason for Visit: Diagnoses Cellulitis, unspecified (08/17/23) Subjective Subjective No new issues. Objective Data Objective Data Vital Signs: Vital Signs Temp Pulse Resp BP Pulse Ox O2 Del Method O2 Flow Rate 36.7 C 99 16 154/77 H 100 Nasal Cannula 2 08/20/23 02:03 08/20/23 02:03 08/20/23 02:03 08/20/23 02:03 08/20/23 02:03 08/20/23 07:48 08/20/23 07:48 FiO2 28 08/18/23 02:36 Oxygen Flow Rate (L/min) 2 Oxygen Delivery Method Nasal Cannula Weight: 170.2 kg Body Mass Index (BMI) 60.5 Intake & Output: Intake and Output for Last 24 Hours 08/18/23 08/19/23 08/20/23 23:59 23:59 23:59 Intake Total 2630 / 2990 2421 / 2421 585 / 585 Output Total 350 / 700 2050 / 2050 300 / 300 Balance 2280 / 2290 371 / 371 285 / 285 Lab / Micro Data 08/20/23 07:33 08/20/23 07:33 Labs: Laboratory Results - last 24 hr 08/19/23 09:00: Vancomycin Trough 21.2 H 08/19/23 12:34: POC Glucose 135 H 08/19/23 17:10: POC Glucose 150 H 08/19/23 20:39: POC Glucose 123 H 08/19/23 21:05: Random Vancomycin 10.0 08/20/23 05:59: POC Glucose 101 Micro: Microbiology 08/18/23 14:45 Blood Culture (Wb) - Anticubital Right Blood Culture - Preliminary Staphylococcus aureus 08/18/23 14:55 Blood Culture (Wb) - Venous Bacteria Detection (PCR) - Final Staphylococcus aureus 08/18/23 14:55 Blood Culture (Wb) - Venous Blood Culture - Preliminary Staphylococcus aureus 08/17/23 21:15 Urine Catheter - Catheter Urine Culture - Final Culture exhibits no growth. 08/17/23 23:58 Mucosa - Nasopharyngeal Respiratory Panel (PCR) - Final 08/17/23 21:15 Urine Catheter - Catheter Legionella Antigen - Final 08/17/23 21:15 Urine Catheter - Catheter Streptococcus pneumoniae Antigen (M - Final Physical Exam Const alert and no apparent distress Constitutional Narrative: up in chair. working with therapy. HEENT head/scalp atraumatic and moist oral mucous membranes Resp normal respiratory effort and no retractions Extremity Extremity Narrative: resolved erythema from line of demarcation on LLE. Neuro moves all extremities Sensorium / Orientation: awake and alert Speech: speech normal Psych affect normal Assessment & Plan Assessment/Plan (1) Cellulitis: PLAN: Plan Sepsis Secondary to cellulitis involving the right upper extremity as well as lower lower extremity. Patient admitted to the intensive care unit managed per protocol with IV fluid resuscitation broad-spectrum antibiotic therapy after cultures have been sent BCx prelim showing GPC. resp panel negative, Cellulitis and bacteremia: cefazolin BCx on 08/18 showing S. aureus. Repeat BCx from the so far pending. repeat BCx Cellulitis appears to be improving as there is no erythema in the line of demarcation on LLE. Anemia Iron-deficient complicated by rivaroxaban Transfused 2 units PRBCs. GI consult Start iron sucrose. Acute kidney injury ruled out. no additional work up. Chronic conditions: History of venous thrombosis? With previous PE and DVT this is secondary to MTHFR mutation/lupus anticoagulant disorder patient is on Xarelto Morbid obesity with BMI of 62.0? Complicating care weight loss advised Chronic pain syndrome? Patient was previously managed with buprenorphine on recently switched to Percocet. There was a suspicion patient was withdrawing started on buprenorphine Rheumatoid arthritis? Per history, currently not on any DMARDs Obstructive sleep apnea? Patient is on CPAP at night GERD? On PPI Depression with anxiety? Patient is on multiple as psych medications. Plan is for patient to follow-up with her psychiatrist as outpatient for subsequent medication modification if needed DVT prophylaxis?Patient already on Xarelto Charges/Coding Visit Charges Inpatient E&M: 35970 Subs Hosp L2
[2023-08-20] MEDS: Pantoprazole Sodium 40 MG Tablet PO ×2 (08:39→22:55)
[2023-08-20] MEDS: Buprenorphine HCl 2 MG TAB.SUBL SL ×2 (08:39→22:57)
[2023-08-20] MEDS: busPIRone 5 MG Tablet 10 MG PO (08:39)
[2023-08-20] MEDS: Atenolol 50 MG Tablet PO (08:39)
[2023-08-20] MEDS: predniSONE 10 MG Tablet PO (08:40)
[2023-08-20] MEDS: fluvoxaMINE Maleate 50 MG Tablet 100 MG PO (08:40)
[2023-08-20] MEDS: DULoxetine Hcl 30 MG Capsule PO (08:40)
[2023-08-20] MEDS: buPROPion (XL) 300 MG TABLET.XL PO (08:40)
[2023-08-20] MEDS: Rivaroxaban 20 MG Tablet PO (08:40)
[2023-08-20 08:41] LABS: Absolute Lymphocyte Count 1.85 X10^3/uL (0.83-4.51); Absolute Neutrophil Count 18.3 X10^3/uL (2.0-7.7); Basophil# 0.11 X10^3/uL; Basophil% 0.5 % (0-1); Eosinophil# 0.35 X10^3/uL; Eosinophils% 1.6 % (0-5); Hematocrit 23.7 % (37-47); Hemoglobin 6.7 g/dL (12.0-15.0); Lymphocyte # 1.85 X10^3/ul (0.83-4.51); Lymphocyte % 8.2 % (19-41); Mean Corp Hgb Conc 28.3 g/dL (32-36); Mean Corpuscular Hgb 22.9 pg (27.0-32.0); Mean Corpuscular Volume 80.9 fL (81-99); Mean Platelet Vol. 9.8 fl (6.2-12.0); Monocyte# 1.45 X10^3/uL; Monocyte% 6.4 % (0-10); NRBC Flagged by Analyzer 2.7 % (0-5); Neutrophil # 18.34 X10^3/uL (2.7-7.7); Neutrophil % 81.4 % (47-70); POSITIVE MORPHOLOGY YES; Platelet Count 372 K/mm3 (150-450); RBC Distribution Width CV 18.3 % (11.6-14.6); RBC Distribution Width SD 51.4 fl (35.1-43.9); Red Blood Count 2.93 M/mm3 (4.2-5.4); White Blood Count 22.5 K/mm3 (4.4-11.0)
[2023-08-20] MEDS: BREXPIPRAZOLE 1 MG TABLET PO (08:41)
[2023-08-20 08:47] LABS: Differential Indicated SCAN CRITERIA MET
[2023-08-20 09:10] LABS: Anion Gap 3 (5-15); BUN 18 mg/dL (7-18); BUN/Creat Ratio 29.4 RATIO (10-20); Calcium,Total 8.6 mg/dL (8.5-10.1); Chloride 109 mmol/L (98-107); Creatinine, Serum 0.61 mg/dL (0.55-1.02); EST Glomerular Filtration Rate 109 mL/min (>60); Est Glom Filt Rate - Afr Amer 131 mL/min (>60); Estimated Creatinine Clearance 176.54 ml/min; Glucose 106 mg/dL (74-106); Potassium 4.2 mmol/L (3.5-5.1); Sodium Level 139 mmol/L (136-145)
--- NOTE | 2023-08-20 09:10 | CASEMGMT ---
SW met with patient. Introduced self and role at [facility]. Patient confirmed she needs to go somewhere for rehab. SW provided patient with a list of group home facility providers including quality and resource use data and consistent with patient?s preferred geographic region, medical needs, and insurance network were provided from the [employer] Guide. SW asked patient to pick at least 3-4 facilities and SW will check to see if they are able to take her at d/c. SW did explain to patient that some facilities may not be able to accommodate her weight. SW told patient SW did magdalena the 2 facilities that SW knows for sure are able to accommodate patients above 300lbs. Plan: SNF pending patient's choices, accepting facility, and insurance approval. Nimo Llanos MSW TAMI
--- NOTE | 2023-08-20 09:21 | ECHOCS_ITS ---
Reason For Study: Murmur Procedure This was a 2D Doppler, Color Flow transthoracic echocardiogram. The study was technically difficult. Contrast injection was performed. Exam performed portable in patient room. Left Ventricle Normal LV size. The estimated ejection fraction is 60 %. No evidence for diastolic dysfunction. Basal anteroseptal: Hypokinetic. Mid-anteroseptal : Hypokinetic. Mid-Inferior: Hypokinetic. Not all zimmer could be visualized even with Definity due to technically difficult images. Right Ventricle Not well visualized. Atria Normal left atrium. Normal right atrium. Mitral Valve The mitral valve is structurally normal. No prolapse or stenosis seen. Trivial mitral valve insufficiency. Tricuspid Valve Normal tricuspid valve. Trivial tricuspid valve insufficiency. Right ventricular systolic pressure estimated to be 35 mmHg. Aortic Valve Trisinus/trileaflet aortic valve. Pulmonic Valve The pulmonic valve is not well visualized. Great Vessels Normal aortic root. Pericardium/Pleural No pericardial effusion. Medication Diluted definity 5ml given slow IV push to enhance endocardial definition. MMode/2D Measurements & Calculations LVIDd: 5.6 cm IVSd: 0.81 cm LVOT diam: 2.1 cm LVIDs: 4.4 cm LVPWd: 0.75 cm FS: 22.3 % LVOT area: 3.5 cm2 Ao root diam: 3.1 cm LAV(MOD-bp): 63.3 ml LVAd ap4: 39.4 cm2 LA dimension: 4.0 cm LAV(MOD-bp) Indexed: 24.2 ml/m2 LVLd ap4: 8.4 cm LAV(MOD-sp2): 43.7 ml EDV(MOD-sp4): 152.3 ml LAV(MOD-sp4): 86.3 ml EDV(sp4-el): 156.3 ml LVAs ap4: 24.1 cm2 LVLs ap4: 7.0 cm ESV(MOD-sp4): 66.5 ml ESV(sp4-el): 70.3 ml EF(MOD-sp4): 56.3 % EF(sp4-el): 55.0 % SV(MOD-sp4): 85.7 ml SV(sp4-el): 86.0 ml LA A4 area: 26.0 cm2 RA A4 area: 24.8 cm2 Time Measurements MV dec time: 0.18 sec Doppler Measurements & Calculations MV E max torey: 112.5 cm/sec Lat Peak E' Torey: 19.2 cm/sec Med Peak E' Torey: 13.6 cm/sec MV A max torey: 81.8 cm/sec E/E' lat: 5.9 E/E' med: 8.3 MV E/A: 1.4 MV V2 max: 148.3 cm/sec MV P1/2t max torey: 147.6 cm/sec Ao V2 max: 207.6 cm/sec MV max P.8 mmHg MV P1/2t: 60.5 msec Ao max P.4 mmHg MV V2 mean: 85.9 cm/sec MV dec slope: 714.9 cm/sec2 Ao V2 mean: 124.7 cm/sec MV mean P.6 mmHg MVA(P1/2t): 3.6 cm2 Ao mean P.7 mmHg MV V2 VTI: 27.3 cm Ao V2 VTI: 30.2 cm MR max torey: 471.5 cm/sec PA V2 max: 106.3 cm/sec TR max torey: 281.6 cm/sec MR max P.9 mmHg TR max P.7 mmHg ECHO/Echo Complete W/ Contrast Interpretation Summary The estimated ejection fraction is 60 %. No evidence for diastolic dysfunction. RV not well visualized appear mild to moderately dilated Contrast echo used/Definity No previous study to compare The study was technically limited. The study was technically difficult. Contras t injection was performed. Ordering Physician: Gavin Benito Referring Physician: Tarah Dubon Performed By: Den Dacosta RCS
--- NOTE | 2023-08-20 09:51 | CASEMGMT ---
Patient's 2 SNF choices were [facility] and [facility]. SW let patient know SW will get referrals out and let her know what they say. SW asked Cynthia to please send referrals. Nimo GARRETT
--- NOTE | 2023-08-20 10:05 | PCM.CONS.GEN ---
Assessment & Plan Assessment/Plan (1) MSSA bacteremia: PLAN: Sepsis from MSSA bacteremia due to cellulitis - Wbc improving, redness fading. Will check repeat bcx and echo. JAGDISH improved. Will narrow vanc/zosyn to cefazolin. Will follow, thank you (2) Cellulitis: HPI Consult Data Date of Consult: 08/20/23 HPI Narrative Reason for Consultation: bacteremia HPI Narrative: RICCARDO VICKERS, is a 52 F with h/o obesity, DM, presented 08/17 with several days fever, chills, fatigue, R hand redness LLE redness, aches, nausea. Has chronic edema. No drainage from leg. Developed some soreness in bilat shoulders, she thinks from using arms to hoist herself up. No other new joint/back pain. Came to ED, admitted, has on vanc/zosyn. Feeling a little better, redness improved. Full ROS performed and neg except as noted above. Some chronic dry cough. 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 Lupus anticoagulant disorder Morbid obesity MTHFR mutation KIKI (obstructive sleep apnea) Pleural effusion, left Pulmonary embolism Rheumatoid arthritis RLS (restless legs syndrome) Sinus tachycardia Home Medications bupropion HCl 300 mg 24 hr tablet, extended release 300 mg PO DAILY mental health 08/25/18 [History Last Taken 09/20/22] ropinirole 2 mg tablet,extended release 24 hr 2 mg PO QHS restless legs 08/25/18 [History Last Taken 09/20/22] rivaroxaban 20 mg tablet (Xarelto) 20 mg PO DAILY blood thinner 06/01/22 [History Last Taken 09/20/22] Probiotic 1 ea PO/SL DAILY IMMUNE HEALTH 09/21/22 [History Last Taken 09/20/22] atenolol 50 mg tablet 50 mg PO DAILY HEART 09/21/22 [History Last Taken 09/20/22] biotin 1 ea PO/SL DAILY SUPPLEMENT 09/21/22 [History Last Taken 09/20/22] brexpiprazole 1 mg tablet (Rexulti) 1 mg PO DAILY MENTAL HEALTH 09/21/22 [History Last Taken 09/20/22] buspirone 10 mg tablet 10 mg PO DAILY ANXIETY 09/21/22 [History Last Taken 09/20/22] buspirone 10 mg tablet 20 mg PO QHS ANXIETY 09/21/22 [History Last Taken 09/20/22] fluvoxamine 100 mg tablet 100 mg PO DAILY MENTAL HEALTH 09/21/22 [History Last Taken 09/20/22] prednisone 5 mg tablet 10 mg PO DAILY RA 09/21/22 [History Last Taken 09/20/22] pantoprazole 40 mg tablet,delayed release 40 mg PO BID reflux #60 tabs 10/26/22 [Rx Last Taken Unknown] sucralfate 1 gram tablet 1 g PO Q6H reflux #120 tabs 10/26/22 [Rx Last Taken Unknown] tocilizumab 162 mg/0.9 mL subcutaneous syringe (Actemra) 162 mg subcut .weekly 03/18/23 [History Last Taken Unknown] promethazine 25 mg tablet 25 mg PO Q6H PRN nausea and vomiting #120 tabs 04/11/23 [Rx Last Taken Unknown] buprenorphine HCl 150 mcg buccal film (Belbuca) 150 mcg buccal Q12H pain relief 06/29/23 [History Last Taken Unknown] duloxetine 30 mg capsule,delayed release 30 mg PO DAILY mental health 06/29/23 [History Last Taken Unknown] quetiapine 50 mg tablet 50 mg PO QHS sleep 06/29/23 [History Last Taken Unknown] semaglutide 0.25 mg or 0.5 mg (2 mg/3 mL) subcutaneous pen injector (Ozempic) 0.5 mg subcut QWEEK diabetes 06/29/23 [History Last Taken Unknown] tizanidine 4 mg tablet 4 mg PO QHS spasms 06/29/23 [History Last Taken Unknown] triamcinolone acetonide 0.025 % topical cream 1 applic topical BID PRN celiac rash 06/29/23 [History Last Taken Unknown] amoxicillin 500 mg tablet 1,000 mg (2 x 500 mg) PO TID #36 tabs 07/02/23 [Rx Last Taken Unknown] pramipexole 0.75 mg tablet 0.75 mg PO TID 08/17/23 [History Last Taken Unknown] Allergy/AdvReac Type Severity Reaction Status Date / Time adhesive tape AdvReac Rash Verified 06/29/23 09:22 Family History Mother Cancer Lung CA w/ concurrent tobacco use. Heart disease Surgical History History of fasciotomy History of hysterectomy History of total bilateral knee replacement S/P pericardial window creation Social History household members: family Smoking Status: Never smoker alcohol intake: never substance use type: does not use Physical Exam Const alert, oriented x3 and no apparent distress General Appearance: cooperative HEENT normocephalic and head/scalp atraumatic Eyes PERRL and EOMs intact bilaterally Neck supple and No nodes Resp normal air movement and clear to auscultation bilaterally Cardio no murmurs Rate: tachycardic GI soft to palpation, non-tender and non-distended Extremity Extremity Narrative: Mild soreness to palpation bilat shoulders General Extremity: edema Skin Skin Narrative: Fading LLE redness. Mild soreness to palpation. Fingernails are painted, no splinter hemorrhages on toes. Neuro CN's II-XII intact bilaterally Lab / Micro Data Attestation: I reviewed the patient's lab results. 08/20/23 07:33 08/20/23 07:33 Labs: Laboratory Results - last 24 hr 08/19/23 12:34: POC Glucose 135 H 08/19/23 17:10: POC Glucose 150 H 08/19/23 20:39: POC Glucose 123 H 08/19/23 21:05: Random Vancomycin 10.0 08/20/23 05:59: POC Glucose 101 08/20/23 07:33: WBC 22.5 H, RBC 2.93 L, Hgb 6.7 L, Hct 23.7 L, MCV 80.9 L, MCH 22.9 L, MCHC 28.3 L, RDW Std Deviation 51.4 H, RDW Coeff of Chepe 18.3 H, Plt Count 372, MPV 9.8, Immature Gran % (Auto) 1.900 H, Neut % (Auto) 81.4 H, Lymph % (Auto) 8.2 L, [place] % (Auto) 6.4, Eos % (Auto) 1.6, Baso % (Auto) 0.5, Absolute Neuts (auto) 18.3 H, Absolute Lymphs (auto) 1.85, Nucleated RBC % 2.7, Sodium 139, Potassium 4.2, Chloride 109 H, Carbon Dioxide 27.0, Anion Gap 3 L, BUN 18, Creatinine 0.61, Estim Creat Clear Calc 176.54, Est GFR (MDRD) Af Amer 131, Est GFR (MDRD) Non-Af 109, BUN/Creatinine Ratio 29.4 H, Glucose 106, Calcium 8.6 Micro: Microbiology 08/18/23 14:45 Blood Culture (Wb) - Anticubital Right Blood Culture - Preliminary Staphylococcus aureus 08/18/23 14:55 Blood Culture (Wb) - Venous Bacteria Detection (PCR) - Final Staphylococcus aureus 08/18/23 14:55 Blood Culture (Wb) - Venous Blood Culture - Preliminary Staphylococcus aureus 08/17/23 21:15 Urine Catheter - Catheter Urine Culture - Final Culture exhibits no growth.
--- NOTE | 2023-08-20 10:09 | CASEMGMT ---
Addendum entered by Cynthia Marcelo 08/20/23 12:14: Both facilities accepted referral. Patient would like to move foward with [facility]. Udated both and asked [facility] to submit precert. Cynthia Marcelo, Discharge Planning Asst. Original Note: Discharge Planning Referral sent to [facility] and [facility] via [facility]. Cynthia Marcelo, Discharge Planning Asst.
[2023-08-20] MEDS: Cefazolin 2 GM in 0.9% Normal Saline (100mL Bag) 100 ML IV ×3 (11:41→23:00)
--- NOTE | 2023-08-20 13:13 | CASEMGMT ---
KAREY spoke with patient and let her know both [facility] and [facility] accepted her. Patient said she prefers [facility]. KAREY notified Cynthia d/c planning lead. Plan: d/c to [facility] pending patient being medically ready and insurance approving patient. Nimo Llanos CERAMICS TEST ENGINEER TAMI
--- NOTE | 2023-08-20 18:40 | CON.PCM.GI_ITS ---
HPI Consult Data Date of Consult: 08/20/23 HPI Narrative Reason for Consultation: Anemia HPI Narrative: RICCARDO VICKERS, is a 52 F who presented to the ED with fatigue malaise and bodyaches. She has a past medical history of morbid obesity, Hx VTE (PE, DVT) with MTHFR mutation/Lupus anticoagulant disorder chronically anticoagulated, GI Bleed/c hronic blood loss with esophageal varices, KIKI, Rheumatoid arthritis, . She was recently discharged 07/02/23 following LLL PNA, sepsis and complicated UTI who now re-presents to the [facility] as direct admission from [facility] ED on 08/17/2023 w/ history of progressively worsening fatigue, malaise, generalized body aches. ED was notable for significant tachycardia although BP stable with lactate 3.3 and CBC with WBC 30,000 in addition to creatinine 2.0, unremarkable urinalysis, chest x-ray with no overt . A CT scan was attempted however patient was unable to tolerate secondary to anxiety given initially there was unclear source for infection. Upon evaluation upon arrival patient did have right hand mild redness as well as mild edema with tenderness palpation and increased warmth in addition to left lower extremity tenderness to palpation and mild lateral distal leg redness both of which she states were not there previously. She does states she has a cough but it is chronic and dry and unchanged. Patient also reports that she did not take her beta-alicia therapy on day of presentation with known chronic sinus tachycardia. I was asked to see her due to her worsening anemia. Hemoglobin was 6.9 on admission. She received transfusion of packed red blood cells. [facility] Medical History Anemia Anticoagulant long-term use Anxiety and depression CKD (chronic kidney disease) Compartment syndrome of left lower extremity Diabetes mellitus, type 2 Gastroparesis GERD (gastroesophageal reflux disease) History of pulmonary embolism Iron deficiency anemia due to chronic blood loss [facility] current use of anticoagulant Lupus anticoagulant disorder Morbid obesity MTHFR mutation KIKI (obstructive sleep apnea) Pleural effusion, left Pulmonary embolism Rheumatoid arthritis RLS (restless legs syndrome) Sinus tachycardia Home Medications bupropion HCl 300 mg 24 hr tablet, extended release 300 mg PO DAILY mental health 08/25/18 [History Last Taken 09/20/22] ropinirole 2 mg tablet,extended release 24 hr 2 mg PO QHS restless legs 02/04/19 [History Last Taken 09/20/22] rivaroxaban 20 mg tablet (Xarelto) 20 mg PO DAILY blood thinner 06/01/22 [History Last Taken 09/20/22] Probiotic 1 ea PO/SL DAILY IMMUNE HEALTH 09/21/22 [History Last Taken 09/20/22] atenolol 50 mg tablet 50 mg PO DAILY HEART 09/21/22 [History Last Taken 09/20] biotin 1 ea PO/SL DAILY SUPPLEMENT 09/21/22 [History Last Taken 09/20/22] brexpiprazole 1 mg tablet (Rexulti) 1 mg PO DAILY MENTAL HEALTH 09/21/22 [History Last Taken 09/20/22] buspirone 10 mg tablet 10 mg PO DAILY ANXIETY 09/21/22 [History Last Taken 09/20/22] buspirone 10 mg tablet 20 mg PO QHS ANXIETY 09/21/22 [History Last Taken 09/20/22] fluvoxamine 100 mg tablet 100 mg PO DAILY MENTAL HEALTH 09/21/22 [History Last Taken 09/20/22] prednisone 5 mg tablet 10 mg PO DAILY RA 09/21/22 [History Last Taken 09/20/22] pantoprazole 40 mg tablet,delayed release 40 mg PO BID reflux #60 tabs 10/26/22 [Rx Last Taken Unknown] sucralfate 1 gram tablet 1 g PO Q6H reflux #120 tabs 10/26/22 [Rx Last Taken Unknown] tocilizumab 162 mg/0.9 mL subcutaneous syringe (Actemra) 162 mg subcut .weekly 03/18/23 [History Last Taken Unknown] promethazine 25 mg tablet 25 mg PO Q6H PRN nausea and vomiting #120 tabs 04/11/23 [Rx Last Taken Unknown] buprenorphine HCl 150 mcg buccal film (Belbuca) 150 mcg buccal Q12H pain relief 06/29/23 [History Last Taken Unknown] duloxetine 30 mg capsule,delayed release 30 mg PO DAILY mental health 06/29/23 [History Last Taken Unknown] quetiapine 50 mg tablet 50 mg PO QHS sleep 06/29/23 [History Last Taken Unknown] semaglutide 0.25 mg or 0.5 mg (2 mg/3 mL) subcutaneous pen injector (Ozempic) 0.5 mg subcut QWEEK diabetes 06/29/23 [History Last Taken Unknown] tizanidine 4 mg tablet 4 mg PO QHS spasms 06/29/23 [History Last Taken Unknown] triamcinolone acetonide 0.025 % topical cream 1 applic topical BID PRN celiac rash 06/29/23 [History Last Taken Unknown] amoxicillin 500 mg tablet 1,000 mg (2 x 500 mg) PO TID #36 tabs 07/02/23 [Rx Last Taken Unknown] pramipexole 0.75 mg tablet 0.75 mg PO TID 08/17/23 [History Last Taken Unknown] Allergy/AdvReac Type Severity Reaction Status Date / Time adhesive tape AdvReac Rash Verified 06/29/23 09:22 Family History Mother Cancer Lung CA w/ concurrent tobacco use. Heart disease Surgical History History of fasciotomy History of hysterectomy History of total bilateral knee replacement S/P pericardial window creation Social History household members: family Smoking Status: Never smoker alcohol intake: never substance use type: does not use ROS ROS Narrative Admission Review of Systems: CONSTITUTIONAL: No weight loss, + fever, chills, weakness or fatigue. HEENT: Eyes: No visual loss, blurred vision, double vision or yellow sclerae. Ears, Nose, Throat: No hearing loss, sneezing, congestion, runny nose or sore throat. SKIN: No rash or itching, lesions, wounds but upon evaluation + R hand erythema/edema, LLE erythema/edema. CARDIOVASCULAR: + Palpitations/tachycardia, acute on chronic edema component. No chest pain, chest pressure or chest discomfort, orthopnea, syncopal events. RESPIRATORY: + Shortness of breath, dry chronic cough. No marked sputum, wheezing, hemoptysis. GASTROINTESTINAL: + anorexia, nausea without vomiting, No diarrhea, abdominal pain, melena, BRBPR. GENITOURINARY: No dysuria, frequency, urgency or retention. NEUROLOGICAL: No headache, dizziness, syncope, paralysis, ataxia, numbness or tingling in the extremities, focal weakness, change in bowel or bladder control, seizure. MUSCULOSKELETAL: + muscle, back pain, joint pain or stiffness. HEMATOLOGIC: + anemia, easy bleeding/bruising. LYMPHATICS: No enlarged nodes. No history of splenectomy. PSYCHIATRIC: + history of depression and anxiety. ENDOCRINOLOGIC: No reports of sweating, cold or heat intolerance. No polyuria or polydipsia. ALLERGIES: No history of asthma, hives, eczema or rhinitis. Physical Exam Const alert, oriented x3 and no apparent distress General Appearance: cooperative HEENT normocephalic and head/scalp atraumatic Eyes PERRL and EOMs intact bilaterally Neck supple and No nodes Resp normal air movement and clear to auscultation bilaterally Cardio no murmurs Rate: tachycardic GI soft to palpation, non-tender and non-distended Extremity Extremity Narrative: Mild soreness to palpation bilat shoulders General Extremity: edema Skin Skin Narrative: Fading LLE redness. Mild soreness to palpation. Fingernails are painted, no splinter hemorrhages on toes. Neuro CN's II-XII intact bilaterally Lab / Micro Data 08/20/23 07:33 08/20/23 07:33 Labs: Laboratory Results - last 24 hr 08/18/23 06:45: Crossmatch See Detail 08/19/23 20:39: POC Glucose 123 H 08/19/23 21:05: Random Vancomycin 10.0 08/20/23 05:59: POC Glucose 101 08/20/23 07:33: WBC 22.5 H, RBC 2.93 L, Hgb 6.7 L, Hct 23.7 L, MCV 80.9 L, MCH 22.9 L, MCHC 28.3 L, RDW Std Deviation 51.4 H, RDW Coeff of Chepe 18.3 H, Plt Count 372, MPV 9.8, Immature Gran % (Auto) 1.900 H, Neut % (Auto) 81.4 H, Lymph % (Auto) 8.2 L, [place] % (Auto) 6.4, Eos % (Auto) 1.6, Baso % (Auto) 0.5, Absolute Neuts (auto) 18.3 H, Absolute Lymphs (auto) 1.85, Nucleated RBC % 2.7, Sodium 139, Potassium 4.2, Chloride 109 H, Carbon Dioxide 27.0, Anion Gap 3 L, BUN 18, Creatinine 0.61, Estim Creat Clear Calc 176.54, Est GFR (MDRD) Af Amer 131, Est GFR (MDRD) Non-Af 109, BUN/Creatinine Ratio 29.4 H, Glucose 106, Calcium 8.6 Micro: Microbiology 08/19/23 10:00 Blood Culture (Wb) - Right Hand Blood Culture - Preliminary 08/19/23 10:00 Blood Culture (Wb) - Anticubital Right Blood Culture - Preliminary 08/18/23 14:45 Blood Culture (Wb) - Anticubital Right Blood Culture - P reliminary Staphylococcus aureus 08/18/23 14:55 Blood Culture (Wb) - Venous Bacteria Detection (PCR) - Final Staphylococcus aureus 08/18/23 14:55 Blood Culture (Wb) - Venous Blood Culture - Preliminary Staphylococcus aureus Imaging Radiology Impression Echocardiogram 08/20/23 09:21 Interpretation Summary The estimated ejection fraction is 60 %. No evidence for diastolic dysfunction. RV not well visualized appear mild to moderately dilated Contrast echo used/Definity No previous study to compare The study was technically limited. The study was technically difficult. Contrast injection was performed. Ordering Physician: Gavin Benito Referring Physician: Tarah Dubon Performed By: Den Dacosta RCS Assessment & Plan Assessment/Plan (1) Gastrointestinal bleeding, upper: (2) Anemia: (3) Anemia: PLAN: In a patient whose has hypoalbuminemia, respiratory failure, chronic prednisone therapy, chronic inflammation and chronic hypoxia she is at risk for angiodysplasia, telangiectasias, ulcerative disease throughout her GI tract. She should undergo an upper endoscopy. Hold anticoagulation. Her hemoglobin continues to be low. Continue to monitor hemoglobin. Depending what the upper endoscopy shows she may need colonoscopy. Charges/Coding Visit Charges Inpatient E&M: 58215 Init Hosp L3
[2023-08-20] MEDS: Menthol/Lanolin/Calamine/Znox 113 GM Tube 1 APPLIC TOPICAL ×2 (18:43→22:56)
[2023-08-20] MEDS: tiZANidine HCl 2 MG Tablet 4 MG PO (22:55)
[2023-08-20] MEDS: QUEtiapine 25 MG Tablet 50 MG PO (22:56)
[2023-08-20] MEDS: busPIRone 5 MG Tablet 20 MG PO (22:56)
[2023-08-21] VITALS (9 sets, daily range): BP systolic 122–149; BP diastolic 69–86; PULSE 98–109; RESP 14–20; TEMP 36.6–37.3; O2SAT 93–100; BMI 60.9
[2023-08-21 00:21] LABS: Bedside Glucose 109 mg/dL (74-106)
[2023-08-21 04:29] LABS: Absolute Lymphocyte Count 1.95 X10^3/uL (0.83-4.51); Absolute Neutrophil Count 16.7 X10^3/uL (2.0-7.7); Basophil# 0.12 X10^3/uL; Basophil% 0.6 % (0-1); Eosinophil# 0.39 X10^3/uL; Eosinophils% 1.8 % (0-5); Hematocrit 27.8 % (37-47); Hemoglobin 7.9 g/dL (12.0-15.0); Lymphocyte # 1.95 X10^3/ul (0.83-4.51); Lymphocyte % 9.1 % (19-41); Mean Corp Hgb Conc 28.4 g/dL (32-36); Mean Corpuscular Hgb 23.8 pg (27.0-32.0); Mean Corpuscular Volume 83.7 fL (81-99); Mean Platelet Vol. 9.4 fl (6.2-12.0); Monocyte# 1.51 X10^3/uL; NRBC Flagged by Analyzer 3.8 % (0-5); Neutrophil # 16.68 X10^3/uL (2.7-7.7); Neutrophil % 77.8 % (47-70); POSITIVE DIFFERENTIAL YES; Platelet Count 375 K/mm3 (150-450); RBC Distribution Width CV 19.2 % (11.6-14.6); RBC Distribution Width SD 52.8 fl (35.1-43.9); Red Blood Count 3.32 M/mm3 (4.2-5.4); White Blood Count 21.4 K/mm3 (4.4-11.0)
[2023-08-21 04:32] LABS: Differential Indicated SCAN CRITERIA MET
[2023-08-21 04:46] LABS: Differential Comment SCANNED
[2023-08-21 04:47] LABS: Anion Gap 3 (5-15); BUN 14 mg/dL (7-18); BUN/Creat Ratio 24.6 RATIO (10-20); Calcium,Total 8.7 mg/dL (8.5-10.1); Chloride 106 mmol/L (98-107); Creatinine, Serum 0.57 mg/dL (0.55-1.02); EST Glomerular Filtration Rate 118 mL/min (>60); Est Glom Filt Rate - Afr Amer 143 mL/min (>60); Estimated Creatinine Clearance 188.93 ml/min; Glucose 107 mg/dL (74-106); Potassium 3.7 mmol/L (3.5-5.1); Sodium Level 137 mmol/L (136-145)
[2023-08-21] MEDS: Cefazolin 2 GM in 0.9% Normal Saline (100mL Bag) 100 ML IV ×4 (05:52→23:17)
[2023-08-21] MEDS: Nystatin Powder 15gm Bottle 1 APPLIC TOPICAL ×2 (05:53→22:05)
[2023-08-21 06:00] LABS: International Normalized Ratio 1.5; Prothrombin Time (Protime)PT. 18.1 SECONDS (11.7-14.9)
[2023-08-21 06:01] LABS: Partial Thromboplast Time 31.3 Seconds (24.1-36.2)
[2023-08-21 06:31] LABS: AST(SGOT) 41 U/L (15-37); Alanine Aminotransfer ALT/SGPT 24 U/L (13-56)
--- NOTE | 2023-08-21 08:05 | PCM.PN.HOSP ---
Subjective Subjective Feels well. No new complaints. Objective Data Objective Data Vital Signs: Vital Signs Temp Pulse Resp BP Pulse Ox O2 Del Method O2 Flow Rate 36.6 C 103 H 16 131/69 H 97 Nasal Cannula 2 08/21/23 04:18 08/21/23 04:18 08/21/23 04:18 08/21/23 04:18 08/21/23 04:18 08/21/23 05:58 08/21/23 05:58 FiO2 08/18/23 02:36 Oxygen Flow Rate (L/min) 2 Oxygen Delivery Method Nasal Cannula Weight: 171.3 kg Body Mass Index (BMI) 60.9 Intake & Output: Intake and Output for Last 24 Hours 08/19/23 08/20/23 08/21/23 23:59 23:59 23:59 Intake Total 2421 / 2421 2196 / 2196 110 / 110 Output Total 2049 / 2049 1800 / 1800 600 / 600 Balance 371 / 371 396 / 396 -490 / -490 Lab / Micro Data 08/21/23 04:08 08/21/23 04:08 Labs: Laboratory Results - last 24 hr 08/18/23 06:45: Crossmatch See Detail 08/20/23 07:33: WBC 22.5 H, RBC 2.93 L, Hgb 6.7 L, Hct 23.7 L, MCV 80.9 L, MCH 22.9 L, MCHC 28.3 L, RDW Std Deviation 51.4 H, RDW Coeff of Chepe 18.3 H, Plt Count 372, MPV 9.8, Immature Gran % (Auto) 1.900 H, Neut % (Auto) 81.4 H, Lymph % (Auto) 8.2 L, [place] % (Auto) 6.4, Eos % (Auto) 1.6, Baso % (Auto) 0.5, Absolute Neuts (auto) 18.3 H, Absolute Lymphs (auto) 1.85, Nucleated RBC % 2.7, Sodium 139, Potassium 4.2, Chloride 109 H, Carbon Dioxide 27.0, Anion Gap 3 L, BUN 18, Creatinine 0.61, Estim Creat Clear Calc 176.54, Est GFR (MDRD) Af Amer 131, Est GFR (MDRD) Non-Af 109, BUN/Creatinine Ratio 29.4 H, Glucose 106, Calcium 8.6 08/20/23 23:08: POC Glucose 109 H 08/21/23 04:08: WBC 21.4 H, RBC 3.32 L, Hgb 7.9 L, Hct 27.8 L, MCV 83.7, MCH 23.8 L, MCHC 28.4 L, RDW Std Deviation 52.8 H, RDW Coeff of Chepe 19.2 H, Plt Count 375, MPV 9.4, Immature Gran % (Auto) 3.700 H, Neut % (Auto) 77.8 H, Lymph % (Auto) 9.1 L, [place] % (Auto) 7.0, Eos % (Auto) 1.8, Baso % (Auto) 0.6, Absolute Neuts (auto) 16.7 H, Absolute Lymphs (auto) 1.95, Nucleated RBC % 3.8, Differential Comment SCANNED, Diff Path Review November, PT 18.1 H, INR 1.5, APTT 31.3, Sodium 137, Potassium 3.7, Chloride 106, Carbon Dioxide 28.0, Anion Gap 3 L, BUN 14, Creatinine 0.57, Estim Creat Clear Calc 188.93, Est GFR (MDRD) Af Amer 143, Est GFR (MDRD) Non-Af 118, BUN/Creatinine Ratio 24.6 H, Glucose 107 H, Calcium 8.7, AST 41 H, ALT 24 Micro: Microbiology 08/19/23 10:00 Blood Culture (Wb) - Anticubital Right Blood Culture - Preliminary Staphylococcus aureus 08/18/23 14:45 Blood Culture (Wb) - Anticubital Right Blood Culture - Final Staphylococcus aureus 08/18/23 14:55 Blood Culture (Wb) - Venous Bacteria Detection (PCR) - Final Staphylococcus aureus 08/18/23 14:55 Blood Culture (Wb) - Venous Blood Culture - Final Staphylococcus aureus 08/19/23 10:00 Blood Culture (Wb) - Right Hand Blood Culture - Preliminary 08/17/23 21:15 Urine Catheter - Catheter Urine Culture - Final Culture exhibits no growth. 08/17/23 23:58 Mucosa - Nasopharyngeal Respiratory Panel (PCR) - Final 08/17/23 21:15 Urine Catheter - Catheter Legionella Antigen - Final 08/17/23 21:15 Urine Catheter - Catheter Streptococcus pneumoniae Antigen (M - Final Radiography Diagnostic Testing: Radiology Impression Echocardiogram 08/20/23 09:21 Interpretation Summary The estimated ejection fraction is 60 %. No evidence for diastolic dysfunction. RV not well visualized appear mild to moderately dilated Contrast echo used/Definity No previous study to compare The study was technically limited. The study was technically difficult. Contrast injection was performed. Ordering Physician: Gavin Benito Referring Physician: Tarah Dubon Performed By: Den Dacosta RCS Physical Exam Const alert and no apparent distress Resp normal respiratory effort, no retractions, no use of accessory muscles and clear to auscultation bilaterally Cardio regular rate, regular rhythm, S1 normal heart sound and S2 normal heart sound GI normal to inspection, nondistended, normoactive bowel sounds, soft to palpation, non-tender and non-distended Neuro Sensorium / Orientation: awake and alert Assessment & Plan Assessment/Plan (1) Cellulitis: PLAN: Plan Sepsis Resolved Secondary to cellulitis and bacteremia involving the lower lower extremity. BCx prelim showing GPC. resp panel negative, Cellulitis and bacteremia: +MSSA cefazolin BCx on 08/18 and showing S. aureus. Repeat BCx from the so far pending. Cellulitis appears to be improving as there is no erythema in the line of demarcation on LLE. Anemia Iron-deficient complicated by rivaroxaban Transfused 2 units PRBCs. GI consult: EGD negative. Colonoscopy for 08/22/23. Received iron sucrose on 08/19. Acute kidney injury ruled out. no additional work up. Chronic conditions: History of venous thrombosis? With previous PE and DVT this is secondary to MTHFR mutation/lupus anticoagulant disorder patient is on Xarelto, currently on hold. Morbid obesity with BMI of 62.0? Complicating care weight loss advised Chronic pain syndrome? Patient was previously managed with buprenorphine on recently switched to Percocet. There was a suspicion patient was withdrawing started on buprenorphine Rheumatoid arthritis? Per history, currently not on any DMARDs Obstructive sleep apnea? Patient is on CPAP at night GERD? On PPI Depression with anxiety? Patient is on multiple as psych medications. Plan is for patient to follow-up with her psychiatrist as outpatient for subsequent medication modification if needed DVT prophylaxis?Patient already on Xarelto Charges/Coding Visit Charges Inpatient E&M: 52843 Subs Hosp L2
--- NOTE | 2023-08-21 09:31 | CASEMGMT ---
Discharge Planning [facility] has obtained auth. SW updated. Cynthia Marcelo, Discharge Planning Asst.
[2023-08-21] MEDS: Lactated Ringers 1,000 ML 15 ML IV (10:07)
--- NOTE | 2023-08-21 11:13 | CASEMGMT ---
Patient is not ready for discharge today. KAREY notified Cynthia d/c wedding planning internship. KAREY also asked Cynthia to also find out how long patient's pre-cert is good. Plan: d/c to [facility] when medically ready. Nimo Llanos FREIGHT LOADING SUPERVISOR TAMI
--- NOTE | 2023-08-21 11:46 | OP.CCLET_ITS ---
08/21/2023 Tarah Parker Do Re : Upper GI endoscopy procedure for Neris Cali Dear Keith This procedure was performed on Monday, August 21, 2023. My impressions and recommendations are as follows: Impressions : - Normal esophagus. Blood in the back of the throat. This is likely secondary to the supplemental oxygen. - A medium amount of food (residue) in the stomach. - Normal first portion of the duodenum. - No specimens collected. Recommendations : - [facility]. Prep for colonoscopy. - Continue present medications. My findings are described in the full procedure note, which is enclosed. If I can be of further assistance, please feel free to contact me at . Sincerely, Michael Mcgill, 08/21/2023 11:46:09 AM This report has been signed electronically.
--- NOTE | 2023-08-21 11:46 | OP.EGD_ITS ---
Patient Name: Neris Cali Procedure Date: 08/21/2023 11:18 AM Date of : 1970 Age: 52 Procedure: Upper GI endoscopy Indications: Iron deficiency anemia Providers: Michael Mcgill DO Medicines: Monitored Anesthesia Care Patient Profile: This is a 52 year old female. Refer to note in patient chart for documentation of history and physical. Patient has symptoms of acute nausea. Complications: No immediate complications. Procedure: Pre-Anesthesia Assessment: - Prior to the procedure, a History and Physical was performed, and patient medications and allergies were reviewed. The patient is competent. The risks and benefits of the procedure and the sedation options and risks were discussed with the patient. All questions were answered and informed consent was obtained. Patient identification and proposed procedure were verified by the physician in the pre-procedure area. Mental Status Examination: alert and oriented. Airway Examination: normal oropharyngeal airway and neck mobility. Respiratory Examination: clear to auscultation. CV Examination: normal. Prophylactic Antibiotics: The patient does not require prophylactic antibiotics. Prior Anticoagulants: The patient has taken no anticoagulant or antiplatelet agents. ASA Grade Assessment: IV - A patient with severe systemic disease that is a constant threat to life. After reviewing the risks and benefits, the patient was deemed in satisfactory condition to undergo the procedure. The anesthesia plan was to use monitored anesthesia care (MAC). Immediately prior to administration of medications, the patient was re-assessed for adequacy to receive sedatives. The heart rate, respiratory rate, oxygen saturations, blood pressure, adequacy of pulmonary ventilation, and response to care were monitored throughout the procedure. The physical status of the patient was re-assessed after the procedure. After obtaining informed consent, the endoscope was passed under direct vision. Throughout the procedure, the patient's blood pressure, pulse, and oxygen saturations were monitored continuously. The Endoscope was introduced through the mouth, and advanced to the second part of duodenum. The upper GI endoscopy was accomplished without difficulty. The patient tolerated the procedure well. Scope In: 11:33:08 AM Scope Out: 11:35:34 AM Total Procedure Duration Time 0 hours 2 minutes 26 seconds Findings: The examined esophagus was normal. There was some old blood seen in the back of the throat in the back of the tongue. A medium amount of food (residue) was found in the entire examined stomach. The first portion of the duodenum was normal. Impression: - Normal esophagus. Blood in the back of the throat. This is likely secondary to the supplemental oxygen. - A medium amount of food (residue) in the stomach. - Normal first portion of the duodenum. - No specimens collected. Recommendation: - [facility] care. Prep for colonoscopy. - Continue present medications. Procedure Code(s): --- Professional --- 18126, Esophagogastroduodenoscopy, flexible, transoral; diagnostic, including collection of specimen(s) by brushing or washing, when performed (separate procedure) CPT copyright 2021 [employer]. All rights reserved. The codes documented in this report are preliminary and upon health information coder review may be revised to meet current compliance requirements. Michael Mcgill DO 08/21/2023 11:46:09 AM This report has been signed electronically. Number of Addenda: 0 Note Initiated On: 08/21/2023 11:18 AM
[2023-08-21 12:05] LABS: Bedside Glucose 102 mg/dL (74-106)
[2023-08-21] MEDS: buPROPion (XL) 300 MG TABLET.XL PO (12:55)
[2023-08-21] MEDS: busPIRone 5 MG Tablet 10 MG PO (12:55)
[2023-08-21] MEDS: DULoxetine Hcl 30 MG Capsule PO (12:55)
[2023-08-21] MEDS: Atenolol 50 MG Tablet PO (12:56)
[2023-08-21] MEDS: Sucralfate 1 GM Tablet PO ×3 (12:56→22:04)
[2023-08-21] MEDS: Pantoprazole Sodium 40 MG Tablet PO ×2 (12:56→22:05)
[2023-08-21] MEDS: BREXPIPRAZOLE 1 MG TABLET PO (12:56)
[2023-08-21] MEDS: predniSONE 10 MG Tablet PO (12:59)
[2023-08-21] MEDS: fluvoxaMINE Maleate 50 MG Tablet 100 MG PO (12:59)
[2023-08-21] MEDS: Menthol/Lanolin/Calamine/Znox 113 GM Tube 1 APPLIC TOPICAL ×2 (13:00→22:04)
[2023-08-21] MEDS: Pramipexole Di-HCl 0.25 MG Tablet PO ×2 (13:00→22:05)
[2023-08-21] MEDS: Buprenorphine HCl 2 MG TAB.SUBL SL ×2 (13:05→22:03)
[2023-08-21] MEDS: Bisacodyl 5 MG Tablet 20 MG PO (13:11)
--- NOTE | 2023-08-21 13:28 | CASEMGMT ---
Discharge Planning Patients precert is good thru 08/24/23. Cynthia Marcelo, Discharge Planning Asst.
--- NOTE | 2023-08-21 13:39 | PCM.PN.ID ---
Physical Exam Narrative Feeling a little better, no fever, leg less sore, no n/v/d. Const alert and no apparent distress Resp normal air movement and clear to auscultation bilaterally Cardio regular rate and regular rhythm GI soft to palpation, non-tender and non-distended Extremity General Extremity: edema Skin Skin Narrative: LLE less red ID ID: Route of nutrition/ use of supplements: [] Nutritional Intake: [] IV Site: [] Kamara Catheter: [] Assessment & Plan Assessment/Plan (1) MSSA bacteremia: PLAN: Sepsis from MSSA bacteremia due to cellulitis - Wbc improving, redness fading. Will check repeat bcx. No veg seen on surface echo. JAGDISH improved. Cont cefazolin. Will follow (2) Cellulitis:
[2023-08-21] MEDS: Polyethylene Glycol 3350 BOWEL PREP PO (16:25)
[2023-08-21] MEDS: busPIRone 5 MG Tablet 20 MG PO (22:03)
[2023-08-21] MEDS: QUEtiapine 25 MG Tablet 50 MG PO (22:05)
[2023-08-21] MEDS: tiZANidine HCl 2 MG Tablet 4 MG PO (22:06)
[2023-08-22] VITALS (8 sets, daily range): BP systolic 115–149; BP diastolic 60–86; PULSE 97–109; RESP 14–24; TEMP 35.9–37.3; O2SAT 2–99; BMI 61.2
[2023-08-22] MEDS: Cefazolin 2 GM in 0.9% Normal Saline (100mL Bag) 100 ML IV ×3 (05:05→17:12)
[2023-08-22 06:31] LABS: Absolute Neutrophil Count 12.3 X10^3/uL (2.0-7.7); Basophil# 0.03 X10^3/uL; Basophil% 0.2 % (0-1); Eosinophil# 0.21 X10^3/uL; Eosinophils% 1.4 % (0-5); Hematocrit 28.3 % (37-47); Hemoglobin 8.1 g/dL (12.0-15.0); Lymphocyte % 10.3 % (19-41); Mean Corp Hgb Conc 28.6 g/dL (32-36); Mean Corpuscular Hgb 24.5 pg (27.0-32.0); Mean Corpuscular Volume 85.8 fL (81-99); Mean Platelet Vol. 9.3 fl (6.2-12.0); Monocyte# 1.04 X10^3/uL; Monocyte% 6.7 % (0-10); NRBC Flagged by Analyzer 2.7 % (0-5); Neutrophil # 12.29 X10^3/uL (2.7-7.7); Neutrophil % 79.3 % (47-70); POSITIVE MORPHOLOGY YES; Platelet Count 415 K/mm3 (150-450); RBC Distribution Width CV 21.2 % (11.6-14.6); RBC Distribution Width SD 57.5 fl (35.1-43.9); White Blood Count 15.5 K/mm3 (4.4-11.0)
[2023-08-22 06:44] LABS: International Normalized Ratio 1.2; Prothrombin Time (Protime)PT. 15.5 SECONDS (11.7-14.9)
[2023-08-22 06:45] LABS: Differential Indicated SCAN CRITERIA MET; Partial Thromboplast Time 28.5 Seconds (24.1-36.2)
[2023-08-22 06:55] LABS: Alanine Aminotransfer ALT/SGPT 19 U/L (13-56); Anion Gap 2 (5-15); BUN 16 mg/dL (7-18); Chloride 109 mmol/L (98-107); Creatinine, Serum 0.64 mg/dL (0.55-1.02); EST Glomerular Filtration Rate 104 mL/min (>60); Est Glom Filt Rate - Afr Amer 125 mL/min (>60); Estimated Creatinine Clearance 169.44 ml/min; Glucose 112 mg/dL (74-106); Potassium 4.1 mmol/L (3.5-5.1); Sodium Level 141 mmol/L (136-145)
[2023-08-22 07:01] LABS: AST(SGOT) 26 U/L (15-37)
[2023-08-22 07:30] LABS: Anisocytosis 3+
--- NOTE | 2023-08-22 08:35 | PN.HOSP_ITS ---
Subjective Subjective No new events. Objective Data Objective Data Vital Signs: Vital Signs Temp Pulse Resp BP Pulse Ox O2 Del Method O2 Flow Rate 36.8 C 108 H 16 137/77 H 99 Nasal Cannula 2 08/21/23 21:59 08/21/23 21:59 08/21/23 21:59 08/21/23 21:59 08/22/23 07:42 08/22/23 07:42 08/22/23 07:42 FiO2 28 08/18/23 02:36 Oxygen Flow Rate (L/min) 2 Oxygen Delivery Method Nasal Cannula Weight: 172 kg Body Mass Index (BMI) 61.2 Intake & Output: Intake and Output for Last 24 Hours 08/20/23 08/21/23 08/22/23 23:59 23:59 23:59 Intake Total 2196 / 2196 1623.25 / 1623.25 220 / 220 Output Total 1800 / 1800 600 / 600 Balance 396 / 396 1023.25 / 1023.25 220 / 220 Lab / Micro Data 08/22/23 05:50 08/22/23 05:50 Labs: Laboratory Results - last 24 hr 08/21/23 11:05: POC Glucose 102 08/22/23 05:50: WBC 15.5 H, RBC 3.30 L, Hgb 8.1 L, Hct 28.3 L, MCV 85.8, MCH 24.5 L, MCHC 28.6 L, RDW Std Deviation 57.5 H, RDW Coeff of Chepe 21.2 H, Plt Count 415, MPV 9.3, Immature Gran % (Auto) 2.100 H, Neut % (Auto) 79.3 H, Lymph % (Auto) 10.3 L, [place] % (Auto) 6.7, Eos % (Auto) 1.4, Baso % (Auto) 0.2, Absolute Neuts (auto) 12.3 H, Absolute Lymphs (auto) 1.60, Nucleated RBC % 2.7, Anisocytosis 3+, PT 15.5 H, INR 1.2, APTT 28.5, Sodium 141, Potassium 4.1, Chloride 109 H, Carbon Dioxide 30.0, Anion Gap 2 L, BUN 16, Creatinine 0.64, Estim Creat Clear Calc 169.44, Est GFR (MDRD) Af Amer 125, Est GFR (MDRD) Non-Af 104, BUN/Creatinine Ratio 25.0 H, Glucose 112 H, Calcium 9.0, AST 26, ALT 19 Micro: Microbiology 08/20/23 08:48 Sputum, Expectorated/Coughed Gram Stain - Final 08/20/23 08:48 Sputum, Expectorated/Coughed Respiratory Culture - Preliminary Presumptive C albicans Staphylococcus aureus 08/19/23 10:00 Blood Culture (Wb) - Anticubital Right Blood Culture - Final Staphylococcus aureus 08/18/23 14:55 Blood Culture (Wb) - Venous Bacteria Detection (PCR) - Final Staphylococcus aureus 08/18/23 14:55 Blood Culture (Wb) - Venous Blood Culture - Final Staphylococcus aureus 08/19/23 10:00 Blood Culture (Wb) - Right Hand Blood Culture - Final Staphylococcus aureus 08/21/23 23:45 Stool Stool Occult Blood (BIANKA) - Final Occult Blood Positive 08/18/23 14:45 Blood Culture (Wb) - Anticubital Right Blood Culture - Final Staphylococcus aureus 08/17/23 21:15 Urine Catheter - Catheter Urine Culture - Final Culture exhibits no growth. 08/17/23 23:58 Mucosa - Nasopharyngeal Respiratory Panel (PCR) - Final 08/17/23 21:15 Urine Catheter - Catheter Legionella Antigen - Final 08/17/23 21:15 Urine Catheter - Catheter Streptococcus pneumoniae Antigen (M - Final Physical Exam Const alert and no apparent distress Constitutional Narrative: lying in bed. non-toxic. no respiratory distress. Extremity Extremity Narrative: no erythema on LLE. Assessment & Plan Assessment/Plan (1) Cellulitis: PLAN: Plan Sepsis * Resolved * Secondary to cellulitis and bacteremia involving the lower lower extremity. * BCx prelim showing GPC. * resp panel negative, Cellulitis and bacteremia: * +MSSA * cefazolin * BCx on 08/18 and showing S. aureus. Repeat BCx from the C. albicans and S. aureus. * Cellulitis appears to be improving as there is no erythema in the line of demarcation on LLE. * Plan to follow up cultures, and if negative, then PICC line on the . Anemia * Stable * Iron-deficient complicated by rivaroxaban * Transfused 2 units PRBCs. * GI consult: EGD negative. Colonoscopy for 08/22/23. * Received iron sucrose on 08/19. Acute kidney injury * ruled out. no additional work up. Chronic conditions: * History of venous thrombosis? With previous PE and DVT this is secondary to MTHFR mutation/lupus anticoagulant disorder patient is on Xarelto, currently on hold. * Morbid obesity with BMI of 62.0? Complicating care weight loss advised * Chronic pain syndrome? Patient was previously managed with buprenorphine on recently switched to Percocet. There was a suspicion patient was withdrawing started on buprenorphine * Rheumatoid arthritis? Per history, currently not on any DMARDs * Obstructive sleep apnea? Patient is on CPAP at night * GERD? On PPI * Depression with anxiety? Patient is on multiple as psych medications. Plan is for patient to follow-up with her psychiatrist as outpatient for subsequent medication modification if needed DVT prophylaxis?Patient already on Xarelto Charges/Coding Visit Charges Inpatient E&M: 19827 Subs Hosp L2
--- NOTE | 2023-08-22 10:01 | PCM.PN.ID ---
Physical Exam Narrative Feeling ok but having trouble with colon prep. No fever. Const alert and no apparent distress Resp normal air movement and clear to auscultation bilaterally Cardio regular rate and regular rhythm GI soft to palpation, non-tender and non-distended Extremity General Extremity: edema Skin Skin Narrative: rash improved ID ID: Route of nutrition/ use of supplements: [] Nutritional Intake: [] IV Site: [] Kamara Catheter: [] Assessment & Plan Assessment/Plan (1) MSSA bacteremia: PLAN: Sepsis from MSSA bacteremia due to cellulitis - Wbc improving, redness fading. So far negative repeat bcx. No veg seen on surface echo. JAGDISH improved. Cont cefazolin. If bcx from 08/20 remains neg, ok for midline tomorrow, discharge to [facility] on 10 more days iv cefazolin q8h with weekly labs, ID followup prn. Will follow as needed, d/w behavioral health case manager. Wrote rx. (2) Cellulitis:
--- NOTE | 2023-08-22 10:50 | CASEMGMT ---
KAREY sent updates to [facility] including the prescription for an IV antibiotic. Plan: d/c to [facility] when medically ready. Nimo GARRETT
[2023-08-22 10:53] LABS: Pathologist Review Reviewed
[2023-08-22] MEDS: DULoxetine Hcl 30 MG Capsule PO (13:16)
[2023-08-22] MEDS: buPROPion (XL) 300 MG TABLET.XL PO (13:17)
[2023-08-22] MEDS: predniSONE 10 MG Tablet PO (13:17)
[2023-08-22] MEDS: fluvoxaMINE Maleate 50 MG Tablet 100 MG PO (13:17)
[2023-08-22] MEDS: Pantoprazole Sodium 40 MG Tablet PO ×2 (13:17→19:52)
[2023-08-22] MEDS: Pramipexole Di-HCl 0.25 MG Tablet PO ×2 (13:17→19:50)
[2023-08-22] MEDS: Sucralfate 1 GM Tablet PO ×2 (13:17→19:50)
[2023-08-22] MEDS: busPIRone 5 MG Tablet 10 MG PO (13:17)
[2023-08-22] MEDS: BREXPIPRAZOLE 1 MG TABLET PO (13:18)
[2023-08-22] MEDS: Atenolol 50 MG Tablet PO (13:18)
[2023-08-22] MEDS: Buprenorphine HCl 2 MG TAB.SUBL SL ×2 (13:20→19:50)
[2023-08-22] MEDS: Menthol/Lanolin/Calamine/Znox 113 GM Tube 1 APPLIC TOPICAL ×2 (13:22→19:51)
[2023-08-22] MEDS: Nystatin Powder 15gm Bottle 1 APPLIC TOPICAL ×2 (13:23→19:51)
[2023-08-22] MEDS: Lactated Ringers 1,000 ML 15 ML IV (15:11)
--- NOTE | 2023-08-22 16:41 | OP.COLON_ITS ---
Patient Name: Neris Cali Procedure Date: 08/22/2023 3:48 PM Date of : 1970 Age: 52 Procedure: Colonoscopy Indications: Iron deficiency anemia Providers: Michael Mcgill DO Medicines: Monitored Anesthesia Care Patient Profile: This is a 52 year old female. Refer to note in patient chart for documentation of history and physical. Last Colonoscopy: 1 year ago. Complications: No immediate complications. Procedure: Pre-Anesthesia Assessment: - Prior to the procedure, a History and Physical was performed, and patient medications and allergies were reviewed. The patient is competent. The risks and benefits of the procedure and the sedation options and risks were discussed with the patient. All questions were answered and informed consent was obtained. Patient identification and proposed procedure were verified by the physician in the pre-procedure area. Mental Status Examination: alert and oriented. Airway Examination: normal oropharyngeal airway and neck mobility. Respiratory Examination: clear to auscultation. CV Examination: normal. Prophylactic Antibiotics: The patient does not require prophylactic antibiotics. Prior Anticoagulants: The patient has taken no anticoagulant or antiplatelet agents. ASA Grade Assessment: III - A patient with severe systemic disease. After reviewing the risks and benefits, the patient was deemed in satisfactory condition to undergo the procedure. The anesthesia plan was to use monitored anesthesia care (MAC). Immediately prior to administration of medications, the patient was re-assessed for adequacy to receive sedatives. The heart rate, respiratory rate, oxygen saturations, blood pressure, adequacy of pulmonary ventilation, and response to care were monitored throughout the procedure. The physical status of the patient was re-assessed after the procedure. After I obtained informed consent, the scope was passed under direct vision. Throughout the procedure, the patient's blood pressure, pulse, and oxygen saturations were monitored continuously. The Colonoscope was introduced through the anus and advanced to the cecum, identified by appendiceal orifice and ileocecal valve. The colonoscopy was performed without difficulty. The quality of the bowel preparation was unsatisfactory. Scope In: 4:16:18 PM Scope Withdrawal Time 0 hours 3 minutes 11 seconds Scope Out: 4:26:54 PM Total Procedure Duration Time 0 hours 10 minutes 36 seconds Findings: The perianal and digital rectal examinations were normal. Multiple small and large-mouthed diverticula were found in the recto-sigmoid colon and sigmoid colon. Extensive amounts of liquid semi-liquid semi-solid solid stool was found in the entire colon, precluding visualization. Impression: - Preparation of the colon was unsatisfactory. - Diverticulosis in the recto-sigmoid colon and in the sigmoid colon. - Stool in the entire examined colon. - No specimens collected. Recommendation: - Return patient to [facility] for [facility] care. - Resume regular diet. - Continue present medications. - Repeat colonoscopy because the bowel preparation was poor. Procedure Code(s): --- Professional --- 91888, Colonoscopy, flexible; diagnostic, including collection of specimen(s) by brushing or washing, when performed (separate procedure) CPT copyright 2021 [employer]. All rights reserved. The codes documented in this report are preliminary and upon porter head review may be revised to meet current compliance requirements. Michael Mcgill DO 08/22/2023 4:40:59 PM This report has been signed electronically. Number of Addenda: 0 Note Initiated On: 08/22/2023 3:48 PM
--- NOTE | 2023-08-22 16:41 | OP.CCLET_ITS ---
08/22/2023 Tarah Parker Do Re : Colonoscopy procedure for Neris Cali Dear Keith This procedure was performed on August. My impressions and recommendations are as follows: Impressions : - Preparation of the colon was unsatisfactory. - Diverticulosis in the recto-sigmoid colon and in the sigmoid colon. - Stool in the entire examined colon. - No specimens collected. Recommendations : - [facility] care. - Resume regular diet. - Continue present medications. - Repeat colonoscopy because the bowel preparation was poor. My findings are described in the full procedure note, which is enclosed. If I can be of further assistance, please feel free to contact me at . Sincerely, Michael Mcgill, 08/22/2023 4:40:59 PM This report has been signed electronically.
[2023-08-22] MEDS: busPIRone 5 MG Tablet 20 MG PO (19:50)
[2023-08-22] MEDS: QUEtiapine 25 MG Tablet 50 MG PO (19:50)
[2023-08-22] MEDS: tiZANidine HCl 2 MG Tablet 4 MG PO (19:50)
--- NOTE | 2023-08-22 20:42 | CPS ---
Patient brought in own PAP machine for the night.
[2023-08-23] MEDS: Cefazolin 2 GM in 0.9% Normal Saline (100mL Bag) 100 ML IV ×4 (00:45→17:36)
[2023-08-23 03:27] VITALS: BP 125/61; PULSE 92; RESP 16; TEMP 36; O2SAT 94
[2023-08-23] MEDS: Sucralfate 1 GM Tablet PO ×4 (05:48→20:07)
[2023-08-23] MEDS: Pramipexole Di-HCl 0.25 MG Tablet PO ×3 (05:48→20:06)
[2023-08-23] MEDS: Nystatin Powder 15gm Bottle 1 APPLIC TOPICAL ×3 (05:49→20:08)
[2023-08-23 06:00] VITALS: BMI 62.3
--- NOTE | 2023-08-23 07:00 | PN.GI_ITS ---
Subjective Subjective Patient underwent an upper endoscopy and colonoscopy during this hospital stay. Her colonoscopy yesterday was a very poor prep and not much was seen in her colon to explain her acute blood loss anemia. Objective Data Objective Data Vital Signs: Vital Signs Temp Pulse Resp BP Pulse Ox O2 Del Method O2 Flow Rate 98 F 92 18 135/74 H 95 Room Air 2 08/23/23 16:08 08/23/23 16:08 08/23/23 16:08 08/23/23 16:08 08/23/23 16:08 08/23/23 16:08 08/23/23 09:35 FiO2 28 08/18/23 02:36 Oxygen Flow Rate (L/min) 2 Oxygen Delivery Method Room Air Weight: 386 lb 3.998 oz Body Mass Index (BMI) 62.3 Intake & Output: Intake and Output for Last 24 Hours 08/21/23 08/22/23 08/23/23 23:59 23:59 23:59 Intake Total 1623.25 / 1623.25 440 / 440 1539 / 1539 Output Total 600 / 600 700 / 700 1400 / 1400 Balance 1023.25 / 1023.25 -260 / -260 139 / 139 Lab / Micro Data 08/23/23 06:35 08/23/23 06:35 Labs: Laboratory Results - last 24 hr 08/23/23 06:35: WBC 14.5 H, RBC 3.44 L, Hgb 8.2 L, Hct 29.2 L, MCV 84.9, MCH 23.8 L, MCHC 28.1 L, RDW Std Deviation 57.3 H, RDW Coeff of Chepe 22.5 H, Plt Count 426, MPV 9.6, Immature Gran % (Auto) 0.900, Neut % (Auto) 82.0 H, Lymph % (Auto) 10.2 L, [place] % (Auto) 5.0, Eos % (Auto) 1.7, Baso % (Auto) 0.2, Absolute Neuts (auto) 11.9 H, Absolute Lymphs (auto) 1.48, Nucleated RBC % 0.9, Differential Comment SCANNED, Anisocytosis 2+, Sodium 139, Potassium 3.8, Chloride 107, Carbon Dioxide 29.0, Anion Gap 3 L, BUN 11, Creatinine 0.59, Estim Creat Clear Calc 186.05, Est GFR (MDRD) Af Amer 138, Est GFR (MDRD) Non-Af 114, BUN/Creatinine Ratio 18.8, Glucose 135 H, Calcium 8.8 Micro: Microbiology 08/21/23 13:05 Blood Culture (Wb) - Right Forearm Blood Culture - Preliminary No growth in 48 hours. 08/20/23 08:48 Sputum, Expectorated/Coughed Gram Stain - Final 08/20/23 08:48 Sputum, Expectorated/Coughed Respiratory Culture - Final Presumptive C albicans Meth. resistant Staph. aureus 08/20/23 09:42 Blood Culture (Wb) - Left Hand Blood Culture - Preliminary No growth in 48 hours. 08/19/23 10:00 Blood Culture (Wb) - Anticubital Right Blood Culture - Final Staphylococcus aureus 08/18/23 14:55 Blood Culture (Wb) - Venous Bacteria Detection (PCR) - Final Staphylococcus aureus 08/18/23 14:55 Blood Culture (Wb) - Venous Blood Culture - Final Staphylococcus aureus 08/19/23 10:00 Blood Culture (Wb) - Right Hand Blood Culture - Final Staphylococcus aureus 08/21/23 23:45 Stool Stool Occult Blood (BIANKA) - Final Occult Blood Positive 08/18/23 14:45 Blood Culture (Wb) - Anticubital Right Blood Culture - Final Staphylococcus aureus 08/17/23 21:15 Urine Catheter - Catheter Urine Culture - Final Culture exhibits no growth. 08/17/23 23:58 Mucosa - Nasopharyngeal Respiratory Panel (PCR) - Final 08/17/23 21:15 Urine Catheter - Catheter Legionella Antigen - Final 08/17/23 21:15 Urine Catheter - Catheter Streptococcus pneumoniae Antigen (M - Final Physical Exam Const alert and no apparent distress Resp normal respiratory effort, no retractions, no use of accessory muscles and clear to auscultation bilaterally Cardio regular rate, regular rhythm, S1 normal heart sound and S2 normal heart sound GI normal to inspection, nondistended, normoactive bowel sounds, soft to palpation, non-tender and non-distended Neuro Sensorium / Orientation: awake and alert Assessment & Plan Assessment/Plan (1) Cellulitis: PLAN: Plan Anemia * Stable * Iron-deficient complicated by rivaroxaban * Transfused 2 units PRBCs. * EGD negative. Colonoscopy poor prep. Diverticulosis. * Received iron sucrose on 08/19. * Will start ferrous sulfate every other day dosing. * Repeat colonoscopy as an outpatient with capsule endoscopy. Charges/Coding Visit Charges Inpatient E&M: 25728 Subs Hosp L3
[2023-08-23 07:06] VITALS: O2SAT 96
[2023-08-23 07:44] LABS: Absolute Lymphocyte Count 1.48 X10^3/uL (0.83-4.51); Absolute Neutrophil Count 11.9 X10^3/uL (2.0-7.7); Basophil# 0.03 X10^3/uL; Basophil% 0.2 % (0-1); Eosinophil# 0.24 X10^3/uL; Eosinophils% 1.7 % (0-5); Hematocrit 29.2 % (37-47); Hemoglobin 8.2 g/dL (12.0-15.0); Lymphocyte # 1.48 X10^3/ul (0.83-4.51); Lymphocyte % 10.2 % (19-41); Mean Corp Hgb Conc 28.1 g/dL (32-36); Mean Corpuscular Hgb 23.8 pg (27.0-32.0); Mean Corpuscular Volume 84.9 fL (81-99); Mean Platelet Vol. 9.6 fl (6.2-12.0); Monocyte# 0.73 X10^3/uL; NRBC Flagged by Analyzer 0.9 % (0-5); Neutrophil # 11.86 X10^3/uL (2.7-7.7); POSITIVE MORPHOLOGY YES; Platelet Count 426 K/mm3 (150-450); RBC Distribution Width CV 22.5 % (11.6-14.6); RBC Distribution Width SD 57.3 fl (35.1-43.9); Red Blood Count 3.44 M/mm3 (4.2-5.4); White Blood Count 14.5 K/mm3 (4.4-11.0)
--- NOTE | 2023-08-23 08:03 | PN.HOSP_ITS ---
Subjective Subjective Feeling well, but feeling weak. Objective Data Objective Data Vital Signs: Vital Signs Temp Pulse Resp BP Pulse Ox O2 Del Method O2 Flow Rate 36.0 C L 92 16 125/61 H 94 Room Air 3 08/23/23 03:27 08/23/23 03:27 08/23/23 03:27 08/23/23 03:27 08/23/23 03:27 08/23/23 07:43 08/23/23 03:27 FiO2 28 08/18/23 02:36 Oxygen Flow Rate (L/min) 3 Oxygen Delivery Method Room Air Weight: 175.2 kg Body Mass Index (BMI) 62.3 Intake & Output: Intake and Output for Last 24 Hours 08/21/23 08/22/23 08/23/23 23:59 23:59 23:59 Intake Total 1623.25 / 1623.25 440 / 440 460 / 460 Output Total 600 / 600 700 / 700 600 / 600 Balance 1023.25 / 1023.25 -260 / -260 -140 / -140 Lab / Micro Data 08/23/23 06:35 08/23/23 06:35 Labs: Laboratory Results - last 24 hr 08/21/23 04:08: Diff Path Review Reviewed Micro: Microbiology 08/20/23 09:42 Blood Culture (Wb) - Left Hand Blood Culture - Preliminary No growth in 48 hours. 08/20/23 08:48 Sputum, Expectorated/Coughed Gram Stain - Final 08/20/23 08:48 Sputum, Expectorated/Coughed Respiratory Culture - Preliminary Presumptive C albicans Staphylococcus aureus 08/19/23 10:00 Blood Culture (Wb) - Anticubital Right Blood Culture - Final Staphylococcus aureus 08/18/23 14:55 Blood Culture (Wb) - Venous Bacteria Detection (PCR) - Final Staphylococcus aureus 08/18/23 14:55 Blood Culture (Wb) - Venous Blood Culture - Final Staphylococcus aureus 08/19/23 10:00 Blood Culture (Wb) - Right Hand Blood Culture - Final Staphylococcus aureus 08/21/23 23:45 Stool Stool Occult Blood (BIANKA) - Final Occult Blood Positive 08/18/23 14:45 Blood Culture (Wb) - Anticubital Right Blood Culture - Final Staphylococcus aureus 08/17/23 21:15 Urine Catheter - Catheter Urine Culture - Final Culture exhibits no growth. 08/17/23 23:58 Mucosa - Nasopharyngeal Respiratory Panel (PCR) - Final 08/17/23 21:15 Urine Catheter - Catheter Legionella Antigen - Final 08/17/23 21:15 Urine Catheter - Catheter Streptococcus pneumoniae Antigen (M - Final Physical Exam Const alert and no apparent distress Resp normal respiratory effort, no retractions, no use of accessory muscles and clear to auscultation bilaterally Cardio regular rate, regular rhythm, S1 normal heart sound and S2 normal heart sound GI normal to inspection, nondistended, normoactive bowel sounds, soft to palpation, non-tender and non-distended Neuro Sensorium / Orientation: awake and alert Assessment & Plan Assessment/Plan (1) Cellulitis: PLAN: Plan Sepsis * Resolved * Secondary to cellulitis and bacteremia involving the lower lower extremity. * resp panel negative, Cellulitis and bacteremia: * +MSSA * cefazolin * BCx on 08/18 and showing S. aureus. Repeat BCx from the C. albicans and S. aureus. * Cellulitis appears to be improving as there is no erythema in the line of demarcation on LLE. * Plan to follow up cultures, and if negative, then PICC line on the . Anemia * Stable * Iron-deficient complicated by rivaroxaban * Transfused 2 units PRBCs. * GI consult: EGD negative. Colonoscopy poor prep. Diverticulosis. * Received iron sucrose on 08/19. * Will start ferrous sulfate every other day dosing. Acute kidney injury * ruled out. no additional work up. Chronic conditions: * History of venous thrombosis? With previous PE and DVT this is secondary to MTHFR mutation/lupus anticoagulant disorder patient is on Xarelto, currently on hold. * Morbid obesity with BMI of 62.0? Complicating care weight loss advised * Chronic pain syndrome? Patient was previously managed with buprenorphine on recently switched to Percocet. There was a suspicion patient was withdrawing started on buprenorphine * Rheumatoid arthritis? Per history, currently not on any DMARDs * Obstructive sleep apnea? Patient is on CPAP at night * GERD? On PPI * Depression with anxiety? Patient is on multiple as psych medications. Plan is for patient to follow-up with her psychiatrist as outpatient for subsequent medication modification if needed Charges/Coding Visit Charges Inpatient E&M: 56903 Subs Hosp L2
[2023-08-23 08:09] LABS: Differential Indicated SCAN CRITERIA MET
[2023-08-23 08:13] LABS: Anion Gap 3 (5-15); BUN 11 mg/dL (7-18); BUN/Creat Ratio 18.8 RATIO (10-20); Calcium,Total 8.8 mg/dL (8.5-10.1); Chloride 107 mmol/L (98-107); Creatinine, Serum 0.59 mg/dL (0.55-1.02); EST Glomerular Filtration Rate 114 mL/min (>60); Est Glom Filt Rate - Afr Amer 138 mL/min (>60); Estimated Creatinine Clearance 186.05 ml/min; Glucose 135 mg/dL (74-106); Potassium 3.8 mmol/L (3.5-5.1); Sodium Level 139 mmol/L (136-145)
[2023-08-23 08:34] LABS: Anisocytosis 2+; Differential Comment SCANNED
[2023-08-23 09:35] VITALS: BP 138/77; PULSE 110; RESP 18; TEMP 36.6; O2SAT 98
[2023-08-23] MEDS: Buprenorphine HCl 2 MG TAB.SUBL SL ×2 (09:38→20:07)
[2023-08-23] MEDS: buPROPion (XL) 300 MG TABLET.XL PO (09:38)
[2023-08-23] MEDS: Atenolol 50 MG Tablet PO (09:39)
[2023-08-23] MEDS: busPIRone 5 MG Tablet 10 MG PO (09:39)
[2023-08-23] MEDS: fluvoxaMINE Maleate 50 MG Tablet 100 MG PO (09:39)
[2023-08-23] MEDS: Pantoprazole Sodium 40 MG Tablet PO ×2 (09:39→20:07)
[2023-08-23] MEDS: predniSONE 10 MG Tablet PO (09:39)
[2023-08-23] MEDS: Menthol/Lanolin/Calamine/Znox 113 GM Tube 1 APPLIC TOPICAL ×3 (09:40→20:07)
[2023-08-23] MEDS: BREXPIPRAZOLE 1 MG TABLET PO (09:40)
[2023-08-23] MEDS: DULoxetine Hcl 30 MG Capsule PO (09:44)
[2023-08-23] MEDS: Ferrous Sulfate 325 MG Tablet PO (13:13)
--- NOTE | 2023-08-23 14:28 | CASEMGMT ---
KAREY completed a PASRR for patient in [facility] system. [facility] let [facility] know that patient will likely come tomorrow. Plan: [facility] under skilled level of care on a PASRR. Physicians will transport patient. Nimo GARRETT
--- NOTE | 2023-08-23 14:36 | TREXTCAR_ITS ---
Diet Diet Order/Speech Therapy: 08/22/23 17:22 Diet: Regular - General Is pt able to select menu?: Yes Diet Comments: OR 6 hours prior to procedure Routine Orders/Code Status Routine Lab Work: CBC (Mondays) and BMP (Mondays) Code Status: Full Code Therapies Weight Bearing: Full weight bearing Physical Therapy: Eval and Treat Occupational Therapy: Eval and Treat Problem/Diagnosis (1) Cellulitis: Status: Acute Code(s): L03.90 - Cellulitis, unspecified Plan Sepsis * Resolved * Secondary to cellulitis and bacteremia involving the lower lower extremity. * resp panel negative, Cellulitis and bacteremia: * +MSSA * cefazolin * BCx on 08/18 and showing S. aureus. Repeat BCx from the C. albicans and S. aureus. * Cellulitis appears to be improving as there is no erythema in the line of demarcation on LLE. * Plan to follow up cultures, and if negative, then PICC line on the . Anemia * Stable * Iron-deficient complicated by rivaroxaban * Transfused 2 units PRBCs. * GI consult: EGD negative. Colonoscopy poor prep. Diverticulosis. * Received iron sucrose on 08/19. * Will start ferrous sulfate every other day dosing. Acute kidney injury * ruled out. no additional work up. Chronic conditions: * History of venous thrombosis? With previous PE and DVT this is secondary to MTHFR mutation/lupus anticoagulant disorder patient is on Xarelto, currently on hold. * Morbid obesity with BMI of 62.0? Complicating care weight loss advised * Chronic pain syndrome? Patient was previously managed with buprenorphine on recently switched to Percocet. There was a suspicion patient was withdrawing started on buprenorphine * Rheumatoid arthritis? Per history, currently not on any DMARDs * Obstructive sleep apnea? Patient is on CPAP at night * GERD? On PPI * Depression with anxiety? Patient is on multiple as psych medications. Plan is for patient to follow-up with her psychiatrist as outpatient for subsequent medication modification if needed Allergies/Procedures Done in Hospital Allergies adhesive tape Adverse Reaction (Verified 06/29/23 09:22) Rash Procedures: None, Colonoscopy and EGD Type of Care/Length of Stay Estimated LOS: Convalescent Care Less Than 30 days Type of Care Needed: Skilled Rehab Potential: Fair Prognosis: Good Additional Orders/Day of Discharge Day of Discharge: 08/23/23 Dietary and Speech Recommendations Dietitian Recommendations/Changes: Continue 1800 CCD diet to manage medical conditions Discharge Plan Admission Admit Date/Time: 08/17/23 20:24 Primary Reason for Your Visit: Cellulitis and bacteremia Attending Provider: Leland Gonzalez Primary Care Provider: Tarah Dubon Consulting Providers: Armen Tay; Jesús Hendrickson; Gavin Benito Discharge Orders/Prescriptions Prescriptions: New cefazolin 2 gram recon soln 2 g IV Q8H 10 Days Rx Instructions: dx: MSSA bacteremia. Stop date 09/02/23. weekly bmp and cbc while on cefazolin. Fax to [phone]. acetaminophen 325 mg Tablet 1,000 mg PO Q8H PRN PRN (Reason: Fever, pain -04/30) Qty: 0 0RF ferrous sulfate [FeroSul] 325 mg (65 mg iron) Tablet 325 mg PO QODAY@1200 Qty: 0 0RF Continued Actemra 162 mg/0.9 mL syringe 162 mg subcut .weekly bupropion HCl 300 MG tablet extended release 24 hr 300 mg PO DAILY ropinirole 2 MG tablet extended release 24 hr 2 mg PO QHS prednisone 5 mg tablet 10 mg PO DAILY Patient Comments: TAKE 2 TABLETS BY MOUTH EVERY DAY. NEEDS OFFICE VISIT fluvoxamine 100 mg tablet 100 mg PO DAILY buspirone 10 mg tablet 10 mg PO DAILY Patient Comments: TAKE 1 TABLET BY MOUTH EVERY MORNING AND TAKE 2 TABLETS BY MOUTH AT BEDTIME buspirone 10 mg tablet 20 mg PO QHS Patient Comments: TAKE 1 TABLET BY MOUTH EVERY MORNING AND TAKE 2 TABLETS BY MOUTH AT BEDTIME atenolol 50 mg tablet 50 mg PO DAILY Patient Comments: TAKE 1 TABLET BY MOUTH EVERY DAY Rexulti 1 mg tablet 1 mg PO DAILY Patient Comments: TAKE 1 TABLET BY MOUTH EVERY DAY Probiotic 1 ea PO/SL DAILY biotin 1 ea PO/SL DAILY pantoprazole 40 mg Tablet,Delayed Release (Dr/Ec) 40 mg PO BID Qty: 60 2RF sucralfate 1 gram tablet 1 g PO Q6H Qty: 120 1RF duloxetine 30 mg capsule,delayed release(DR/EC) 30 mg PO DAILY Ozempic 0.25 mg or 0.5 mg (2 mg/3 mL) pen injector 0.5 mg SUBCUT QWEEK triamcinolone acetonide 0.025 % cream 1 applic topical BID PRN quetiapine 50 mg tablet 50 mg PO QHS tizanidine 4 mg tablet 4 mg PO QHS pramipexole 0.75 mg tablet 0.75 mg PO TID buprenorphine HCl [Belbuca] 150 mcg film 150 mcg BUCCAL Q12H 3 Days Qty: 6 0RF promethazine 25 mg tablet 25 mg PO Q6H PRN (Reason: nausea and vomiting) Qty: 120 3RF Held Xarelto 20 mg tablet 20 mg PO DAILY Hold Instructions: Resume on 08/25/23. Patient Comments: TAKE 1 TABLET BY MOUTH EVERY DAY WITH SUPPER Discontinued amoxicillin 500 mg tablet 1,000 mg PO TID Qty: 36 0RF Referrals / Follow Up: Tarah Dubon DO [Primary Care Provider] - Within 2 Weeks [facility] [Provider Group] - 09/11/23 2:30 pm *[facility] ([facility] [Provider Group] - Within 1 Month Disposition Disposition (needs filled in before D/C Order can be placed): Shelter Facility
[2023-08-23 16:08] VITALS: BP 135/74; PULSE 92; RESP 18; TEMP 36.6; O2SAT 95
[2023-08-23] MEDS: 0.9% Saline Lock 10 ML Syringe IV (17:36)
[2023-08-23] MEDS: busPIRone 5 MG Tablet 20 MG PO (20:05)
[2023-08-23] MEDS: QUEtiapine 25 MG Tablet 50 MG PO (20:06)
[2023-08-23] MEDS: tiZANidine HCl 2 MG Tablet 4 MG PO (20:07)
[2023-08-23 21:24] VITALS: BP 130/70; PULSE 104; RESP 18; TEMP 36.1; O2SAT 95
[2023-08-24] VITALS (7 sets, daily range): BP systolic 120–138; BP diastolic 56–71; PULSE 95–107; RESP 16–18; TEMP 36.1–37.2; O2SAT 90–97
[2023-08-24] MEDS: Cefazolin 2 GM in 0.9% Normal Saline (100mL Bag) 100 ML IV ×4 (00:35→17:14)
[2023-08-24] MEDS: guaiFENesin 10 ML UDC (200MG/10ML) PO (02:08)
[2023-08-24] MEDS: Nystatin Powder 15gm Bottle 1 APPLIC TOPICAL ×3 (04:13→22:44)
[2023-08-24] MEDS: Pramipexole Di-HCl 0.25 MG Tablet PO ×3 (04:13→22:43)
[2023-08-24] MEDS: Sucralfate 1 GM Tablet PO ×4 (04:14→22:43)
[2023-08-24 06:18] LABS: Absolute Lymphocyte Count 1.44 X10^3/uL (0.83-4.51); Absolute Neutrophil Count 11.5 X10^3/uL (2.0-7.7); Basophil# 0.02 X10^3/uL; Basophil% 0.1 % (0-1); Eosinophil# 0.27 X10^3/uL; Eosinophils% 1.9 % (0-5); Hematocrit 30.2 % (37-47); Hemoglobin 8.3 g/dL (12.0-15.0); Lymphocyte # 1.44 X10^3/ul (0.83-4.51); Lymphocyte % 10.2 % (19-41); Mean Corp Hgb Conc 27.5 g/dL (32-36); Mean Corpuscular Hgb 23.5 pg (27.0-32.0); Mean Corpuscular Volume 85.6 fL (81-99); Monocyte# 0.67 X10^3/uL; Monocyte% 4.8 % (0-10); NRBC Flagged by Analyzer 0.3 % (0-5); Neutrophil # 11.53 X10^3/uL (2.7-7.7); Neutrophil % 82.1 % (47-70); POSITIVE MORPHOLOGY YES; Platelet Count 450 K/mm3 (150-450); Red Blood Count 3.53 M/mm3 (4.2-5.4); White Blood Count 14.1 K/mm3 (4.4-11.0)
[2023-08-24 06:20] LABS: Differential Indicated SCAN CRITERIA MET
[2023-08-24 06:45] LABS: Anisocytosis 3+
[2023-08-24 06:52] LABS: Anion Gap 4 (5-15); BUN 10 mg/dL (7-18); BUN/Creat Ratio 16.9 RATIO (10-20); Calcium,Total 8.9 mg/dL (8.5-10.1); Chloride 106 mmol/L (98-107); Creatinine, Serum 0.59 mg/dL (0.55-1.02); EST Glomerular Filtration Rate 113 mL/min (>60); Est Glom Filt Rate - Afr Amer 137 mL/min (>60); Estimated Creatinine Clearance 186.05 ml/min; Glucose 108 mg/dL (74-106); Sodium Level 140 mmol/L (136-145)
--- NOTE | 2023-08-24 08:08 | PN.HOSP_ITS ---
Subjective Subjective Complaining of right-sided chest pain that goes through to her back. Objective Data Objective Data Vital Signs: Vital Signs Temp Pulse Resp BP Pulse Ox O2 Del Method O2 Flow Rate 36.1 C L 95 18 131/71 H 97 Nasal Cannula 2 08/24/23 04:00 08/24/23 04:00 08/24/23 04:00 08/24/23 04:00 08/24/23 04:00 08/24/23 04:00 08/24/23 04:00 FiO2 28 08/18/23 02:36 Oxygen Flow Rate (L/min) 2 Oxygen Delivery Method Nasal Cannula Weight: 175.2 kg Body Mass Index (BMI) 62.3 Intake & Output: Intake and Output for Last 24 Hours 08/22/23 08/23/23 08/24/23 23:59 23:59 23:59 Intake Total 440 / 440 2399 / 2639 700 / 700 Output Total 700 / 700 2180 / 2880 1400 / 1400 Balance -260 / -260 219 / -241 -700 / -700 Lab / Micro Data 08/24/23 06:08 08/24/23 06:08 Labs: Laboratory Results - last 24 hr 08/23/23 06:35: WBC 14.5 H, RBC 3.44 L, Hgb 8.2 L, Hct 29.2 L, MCV 84.9, MCH 23.8 L, MCHC 28.1 L, RDW Std Deviation 57.3 H, RDW Coeff of Chepe 22.5 H, Plt Count 426, MPV 9.6, Immature Gran % (Auto) 0.900, Neut % (Auto) 82.0 H, Lymph % (Auto) 10.2 L, [place] % (Auto) 5.0, Eos % (Auto) 1.7, Baso % (Auto) 0.2, Absolute Neuts (auto) 11.9 H, Absolute Lymphs (auto) 1.48, Nucleated RBC % 0.9, Differential Comment SCANNED, Anisocytosis 2+, Sodium 139, Potassium 3.8, Chloride 107, Carbon Dioxide 29.0, Anion Gap 3 L, BUN 11, Creatinine 0.59, Estim Creat Clear Calc 186.05, Est GFR (MDRD) Af Amer 138, Est GFR (MDRD) Non-Af 114, BUN/Creatinine Ratio 18.8, Glucose 135 H, Calcium 8.8 08/24/23 06:08: WBC 14.1 H, RBC 3.53 L, Hgb 8.3 L, Hct 30.2 L, MCV 85.6, MCH 23.5 L, MCHC 27.5 L, RDW Std Deviation 63.0 H, RDW Coeff of Chepe 23.0 H, Plt Count 450, MPV 9.0, Immature Gran % (Auto) 0.900, Neut % (Auto) 82.1 H, Lymph % (Auto) 10.2 L, [place] % (Auto) 4.8, Eos % (Auto) 1.9, Baso % (Auto) 0.1, Absolute Neuts (auto) 11.5 H, Absolute Lymphs (auto) 1.44, Nucleated RBC % 0.3, Anisocytosis 3+, Sodium 140, Potassium 4.0, Chloride 106, Carbon Dioxide 30.0, Anion Gap 4 L, BUN 10, Creatinine 0.59, Estim Creat Clear Calc 186.05, Est GFR (MDRD) Af Amer 137, Est GFR (MDRD) Non-Af 113, BUN/Creatinine Ratio 16.9, Glucose 108 H, Calcium 8.9 Micro: Microbiology 08/21/23 13:05 Blood Culture (Wb) - Right Forearm Blood Culture - Preliminary No growth in 48 hours. 08/20/23 08:48 Sputum, Expectorated/Coughed Gram Stain - Final 08/20/23 08:48 Sputum, Expectorated/Coughed Respiratory Culture - Final Presumptive C albicans Meth. resistant Staph. aureus 08/20/23 09:42 Blood Culture (Wb) - Left Hand Blood Culture - Preliminary No growth in 48 hours. 08/19/23 10:00 Blood Culture (Wb) - Anticubital Right Blood Culture - Final Staphylococcus aureus 08/18/23 14:55 Blood Culture (Wb) - Venous Bacteria Detection (PCR) - Final Staphylococcus aureus 08/18/23 14:55 Blood Culture (Wb) - Venous Blood Culture - Final Staphylococcus aureus 08/19/23 10:00 Blood Culture (Wb) - Right Hand Blood Culture - Final Staphylococcus aureus 08/21/23 23:45 Stool Stool Occult Blood (BIANKA) - Final Occult Blood Positive 08/18/23 14:45 Blood Culture (Wb) - Anticubital Right Blood Culture - Final Staphylococcus aureus 08/17/23 21:15 Urine Catheter - Catheter Urine Culture - Final Culture exhibits no growth. 08/17/23 23:58 Mucosa - Nasopharyngeal Respiratory Panel (PCR) - Final 08/17/23 21:15 Urine Catheter - Catheter Legionella Antigen - Final 08/17/23 21:15 Urine Catheter - Catheter Streptococcus pneumoniae Antigen (M - Final Physical Exam Narrative Reproducible right anterior chest wall pain. Const alert and no apparent distress Resp normal respiratory effort, no retractions, no use of accessory muscles and clear to auscultation bilaterally Cardio regular rate, regular rhythm, S1 normal heart sound and S2 normal heart sound GI normal to inspection, nondistended, normoactive bowel sounds, soft to palpation, non-tender and non-distended Neuro Sensorium / Orientation: awake and alert Assessment & Plan Assessment/Plan (1) Cellulitis: PLAN: Plan Sepsis * Resolved * Secondary to cellulitis and bacteremia involving the lower lower extremity. * resp panel negative, Cellulitis and bacteremia: * +MSSA * cefazolin * BCx on 08/18 and showing S. aureus. Repeat BCx from the C. albicans and S. aureus. * Cellulitis appears to be improving as there is no erythema in the line of demarcation on LLE. * Plan to follow up cultures, and if negative, then PICC line on the . Anemia * Stable * Iron-deficient complicated by rivaroxaban * Transfused 2 units PRBCs. * GI consult: EGD negative. Colonoscopy poor prep. Diverticulosis. * Received iron sucrose on 08/19. * Will start ferrous sulfate every other day dosing. Acute kidney injury * ruled out. no additional work up. Chest pain * Secondary to costochondritis. Right-sided and reproducible. No additional workup. Will add Lidoderm patch to help Chronic conditions: * History of venous thrombosis? With previous PE and DVT this is secondary to MTHFR mutation/lupus anticoagulant disorder patient is on Xarelto, currently on hold. Resume 08/25. * Morbid obesity with BMI of 62.0? Complicating care weight loss advised * Chronic pain syndrome? Patient was previously managed with buprenorphine on recently switched to Percocet. There was a suspicion patient was withdrawing started on buprenorphine * Rheumatoid arthritis? Per history, currently not on any DMARDs * Obstructive sleep apnea? Patient is on CPAP at night * GERD? On PPI * Depression with anxiety? Patient is on multiple as psych medications. Plan is for patient to follow-up with her psychiatrist as outpatient for subsequent medication modification if needed Charges/Coding Visit Charges Inpatient E&M: 20675 Subs Hosp L2
[2023-08-24] MEDS: Atenolol 50 MG Tablet PO (08:13)
[2023-08-24] MEDS: DULoxetine Hcl 30 MG Capsule PO (08:13)
[2023-08-24] MEDS: fluvoxaMINE Maleate 50 MG Tablet 100 MG PO (08:14)
[2023-08-24] MEDS: Ferrous Sulfate 325 MG Tablet PO (08:14)
[2023-08-24] MEDS: Pantoprazole Sodium 40 MG Tablet PO ×2 (08:14→22:43)
[2023-08-24] MEDS: busPIRone 5 MG Tablet 10 MG PO (08:15)
[2023-08-24] MEDS: predniSONE 10 MG Tablet PO (08:15)
[2023-08-24] MEDS: buPROPion (XL) 300 MG TABLET.XL PO (08:15)
[2023-08-24] MEDS: Menthol/Lanolin/Calamine/Znox 113 GM Tube 1 APPLIC TOPICAL ×4 (08:16→22:41)
[2023-08-24] MEDS: BREXPIPRAZOLE 1 MG TABLET PO (08:16)
[2023-08-24] MEDS: Buprenorphine HCl 2 MG TAB.SUBL SL ×2 (08:19→22:42)
--- NOTE | 2023-08-24 16:41 | PN.GI_ITS ---
Subjective Subjective Patient does complain of some back pain. She denies any chest pain or shortness of breath. Objective Data Objective Data Vital Signs: Vital Signs Temp Pulse Resp BP Pulse Ox O2 Del Method O2 Flow Rate 98.6 F 97 16 120/56 L 90 Room Air 3.5 08/24/23 14:25 08/24/23 14:25 08/24/23 14:25 08/24/23 14:25 08/24/23 14:25 08/24/23 14:25 08/24/23 11:16 FiO2 28 08/18/23 02:36 Oxygen Flow Rate (L/min) 3.5 Oxygen Delivery Method Room Air Weight: 386 lb 3.998 oz Body Mass Index (BMI) 62.3 Intake & Output: Intake and Output for Last 24 Hours 08/22/23 08/23/23 08/24/23 23:59 23:59 23:59 Intake Total 440 / 440 2399 / 2639 1050 / 1050 Output Total 700 / 700 2180 / 2880 1400 / 1400 Balance -260 / -260 219 / -241 -350 / -350 Lab / Micro Data 08/26/23 05:43 08/26/23 05:43 Labs: Laboratory Results - last 24 hr 08/24/23 06:08: WBC 14.1 H, RBC 3.53 L, Hgb 8.3 L, Hct 30.2 L, MCV 85.6, MCH 23.5 L, MCHC 27.5 L, RDW Std Deviation 63.0 H, RDW Coeff of Chepe 23.0 H, Plt Count 450, MPV 9.0, Immature Gran % (Auto) 0.900, Neut % (Auto) 82.1 H, Lymph % (Auto) 10.2 L, [place] % (Auto) 4.8, Eos % (Auto) 1.9, Baso % (Auto) 0.1, Absolute Neuts (auto) 11.5 H, Absolute Lymphs (auto) 1.44, Nucleated RBC % 0.3, Anisocytosis 3+, Sodium 140, Potassium 4.0, Chloride 106, Carbon Dioxide 30.0, Anion Gap 4 L, BUN 10, Creatinine 0.59, Estim Creat Clear Calc 186.05, Est GFR (MDRD) Af Amer 137, Est GFR (MDRD) Non-Af 113, BUN/Creatinine Ratio 16.9, Glucose 108 H, Calcium 8.9 Micro: Microbiology 08/21/23 13:05 Blood Culture (Wb) - Right Forearm Blood Culture - Preliminary No growth in 48 hours. 08/20/23 08:48 Sputum, Expectorated/Coughed Gram Stain - Final 08/20/23 08:48 Sputum, Expectorated/Coughed Respiratory Culture - Final Presumptive C albicans Meth. resistant Staph. aureus 08/20/23 09:42 Blood Culture (Wb) - Left Hand Blood Culture - Preliminary No growth in 48 hours. 08/19/23 10:00 Blood Culture (Wb) - Anticubital Right Blood Culture - Final Staphylococcus aureus 08/18/23 14:55 Blood Culture (Wb) - Venous Bacteria Detection (PCR) - Final Staphylococcus aureus 08/18/23 14:55 Blood Culture (Wb) - Venous Blood Culture - Final Staphylococcus aureus 08/19/23 10:00 Blood Culture (Wb) - Right Hand Blood Culture - Final Staphylococcus aureus 08/21/23 23:45 Stool Stool Occult Blood (BIANKA) - Final Occult Blood Positive 08/18/23 14:45 Blood Culture (Wb) - Anticubital Right Blood Culture - Final Staphylococcus aureus 08/17/23 21:15 Urine Catheter - Catheter Urine Culture - Final Culture exhibits no growth. 08/17/23 23:58 Mucosa - Nasopharyngeal Respiratory Panel (PCR) - Final 08/17/23 21:15 Urine Catheter - Catheter Legionella Antigen - Final 08/17/23 21:15 Urine Catheter - Catheter Streptococcus pneumoniae Antigen (M - Final Physical Exam Const alert and no apparent distress Constitutional Narrative: up in chair. HEENT head/scalp atraumatic and moist oral mucous membranes Resp no use of accessory muscles Neuro no focal motor deficits Sensorium / Orientation: awake and alert Psych affect normal Assessment & Plan Assessment/Plan (1) Cellulitis: PLAN: Plan Sepsis * Resolved * Secondary to cellulitis and bacteremia involving the lower lower extremity. * resp panel negative, Cellulitis and bacteremia: * +MSSA * cefazolin through the . * BCx on 08/18 and showing S. aureus. Repeat BCx from the C. albicans and S. aureus. * Cellulitis appears to be improving as there is no erythema in the line of demarcation on LLE. * Plan to follow up cultures, and if negative, then PICC line on the . Anemia * Stable * Iron-deficient complicated by rivaroxaban * Transfused 2 units PRBCs. * EGD negative. Colonoscopy poor prep. Diverticulosis. * Received iron sucrose on 08/19. * Will start ferrous sulfate every other day dosing. Charges/Coding Visit Charges Inpatient E&M: 37993 Subs Hosp L3
[2023-08-24] MEDS: tiZANidine HCl 2 MG Tablet 4 MG PO (22:42)
[2023-08-24] MEDS: busPIRone 5 MG Tablet 20 MG PO (22:43)
[2023-08-24] MEDS: QUEtiapine 25 MG Tablet 50 MG PO (22:44)
[2023-08-25] VITALS (7 sets, daily range): BP systolic 115–141; BP diastolic 67–89; PULSE 92–101; RESP 16–18; TEMP 36.6–37; O2SAT 93–99; BMI 62.4
[2023-08-25] MEDS: Pramipexole Di-HCl 0.25 MG Tablet PO ×3 (05:43→20:41)
[2023-08-25] MEDS: Nystatin Powder 15gm Bottle 1 APPLIC TOPICAL ×3 (05:43→20:34)
[2023-08-25] MEDS: Cefazolin 2 GM in 0.9% Normal Saline (100mL Bag) 100 ML IV ×5 (05:43→23:13)
[2023-08-25] MEDS: Sucralfate 1 GM Tablet PO ×4 (06:13→20:41)
--- NOTE | 2023-08-25 07:36 | PCM.PN.HOSP ---
Subjective Subjective Still with chest pain, but feels better after lidocaine patch. Objective Data Objective Data Vital Signs: Vital Signs Temp Pulse Resp BP Pulse Ox O2 Del Method O2 Flow Rate 36.9 C 96 17 115/73 99 Nasal Cannula 3 08/25/23 04:00 08/25/23 04:00 08/25/23 04:00 08/25/23 04:00 08/25/23 04:00 08/25/23 04:59 08/25/23 04:59 FiO2 28 08/18/23 02:36 Oxygen Flow Rate (L/min) 3 Oxygen Delivery Method Nasal Cannula Weight: 175.3 kg Body Mass Index (BMI) 62.4 Intake & Output: Intake and Output for Last 24 Hours 08/23/23 08/24/23 08/25/23 23:59 23:59 23:59 Intake Total 2399 / 2639 1160 / 1380 440 / 440 Output Total 2180 / 2880 1400 / 1400 0 / 0 Balance 219 / -241 -240 / -20 440 / 440 Lab / Micro Data 08/24/23 06:08 08/24/23 06:08 Micro: Microbiology 08/21/23 13:05 Blood Culture (Wb) - Right Forearm Blood Culture - Preliminary No growth in 48 hours. 08/20/23 08:48 Sputum, Expectorated/Coughed Gram Stain - Final 08/20/23 08:48 Sputum, Expectorated/Coughed Respiratory Culture - Final Presumptive C albicans Meth. resistant Staph. aureus 08/20/23 09:42 Blood Culture (Wb) - Left Hand Blood Culture - Preliminary No growth in 48 hours. 08/19/23 10:00 Blood Culture (Wb) - Anticubital Right Blood Culture - Final Staphylococcus aureus 08/18/23 14:55 Blood Culture (Wb) - Venous Bacteria Detection (PCR) - Final Staphylococcus aureus 08/18/23 14:55 Blood Culture (Wb) - Venous Blood Culture - Final Staphylococcus aureus 08/19/23 10:00 Blood Culture (Wb) - Right Hand Blood Culture - Final Staphylococcus aureus 08/21/23 23:45 Stool Stool Occult Blood (BIANKA) - Final Occult Blood Positive 08/18/23 14:45 Blood Culture (Wb) - Anticubital Right Blood Culture - Final Staphylococcus aureus 08/17/23 21:15 Urine Catheter - Catheter Urine Culture - Final Culture exhibits no growth. 08/17/23 23:58 Mucosa - Nasopharyngeal Respiratory Panel (PCR) - Final 08/17/23 21:15 Urine Catheter - Catheter Legionella Antigen - Final 08/17/23 21:15 Urine Catheter - Catheter Streptococcus pneumoniae Antigen (M - Final Physical Exam Const alert and no apparent distress Constitutional Narrative: up in chair. HEENT head/scalp atraumatic and moist oral mucous membranes Resp no use of accessory muscles Neuro no focal motor deficits Sensorium / Orientation: awake and alert Psych affect normal Assessment & Plan Assessment/Plan (1) Cellulitis: PLAN: Plan Sepsis Resolved Secondary to cellulitis and bacteremia involving the lower lower extremity. resp panel negative, Cellulitis and bacteremia: +MSSA cefazolin through the . BCx on 08/18 and showing S. aureus. Repeat BCx from the C. albicans and S. aureus. Cellulitis appears to be improving as there is no erythema in the line of demarcation on LLE. Plan to follow up cultures, and if negative, then PICC line on the . Anemia Stable Iron-deficient complicated by rivaroxaban Transfused 2 units PRBCs. GI consult: EGD negative. Colonoscopy poor prep. Diverticulosis. Received iron sucrose on 08/19. Will start ferrous sulfate every other day dosing. Acute kidney injury ruled out. no additional work up. Chest pain Secondary to costochondritis. Right-sided and reproducible. No additional workup. Will add Lidoderm patch to help Chronic conditions: History of venous thrombosis? With previous PE and DVT this is secondary to MTHFR mutation/lupus anticoagulant disorder patient is on Xarelto, which will be resumed 08/25. Morbid obesity with BMI of 62.0? Complicating care weight loss advised Chronic pain syndrome? Patient was previously managed with buprenorphine on recently switched to Percocet. There was a suspicion patient was withdrawing started on buprenorphine Rheumatoid arthritis? Per history, currently not on any DMARDs Obstructive sleep apnea? Patient is on CPAP at night GERD? On PPI Depression with anxiety? Patient is on multiple as psych medications. Plan is for patient to follow-up with her psychiatrist as outpatient for subsequent medication modification if needed Disposition: to [facility] pending approval. Charges/Coding Visit Charges Inpatient E&M: 72375 Subs Hosp L2
[2023-08-25] MEDS: BREXPIPRAZOLE 1 MG TABLET PO (08:48)
[2023-08-25] MEDS: Buprenorphine HCl 2 MG TAB.SUBL SL ×2 (08:48→20:40)
[2023-08-25] MEDS: Pantoprazole Sodium 40 MG Tablet PO ×2 (08:48→20:41)
[2023-08-25] MEDS: busPIRone 5 MG Tablet 10 MG PO (08:49)
[2023-08-25] MEDS: predniSONE 10 MG Tablet PO (08:49)
[2023-08-25] MEDS: Atenolol 50 MG Tablet PO (08:49)
[2023-08-25] MEDS: Menthol/Lanolin/Calamine/Znox 113 GM Tube 1 APPLIC TOPICAL ×4 (08:50→20:34)
[2023-08-25] MEDS: DULoxetine Hcl 30 MG Capsule PO (08:50)
[2023-08-25] MEDS: buPROPion (XL) 300 MG TABLET.XL PO (08:52)
[2023-08-25] MEDS: fluvoxaMINE Maleate 50 MG Tablet 100 MG PO (08:53)
[2023-08-25] MEDS: Lidocaine 5% Patch 1 PATCH TOPICAL (12:31)
[2023-08-25] MEDS: Rivaroxaban 20 MG Tablet PO (16:08)
[2023-08-25] MEDS: 0.9% Saline Lock 10 ML Syringe IV (20:33)
[2023-08-25] MEDS: QUEtiapine 25 MG Tablet 50 MG PO (20:41)
[2023-08-25] MEDS: tiZANidine HCl 2 MG Tablet 4 MG PO (20:41)
[2023-08-25] MEDS: busPIRone 5 MG Tablet 20 MG PO (20:41)
[2023-08-26] VITALS (8 sets, daily range): BP systolic 111–134; BP diastolic 68–71; PULSE 89–108; RESP 16–18; TEMP 36.5–36.7; O2SAT 87–98
[2023-08-26] MEDS: Cefazolin 2 GM in 0.9% Normal Saline (100mL Bag) 100 ML IV ×3 (05:59→17:22)
[2023-08-26] MEDS: Pramipexole Di-HCl 0.25 MG Tablet PO ×2 (05:59→14:23)
[2023-08-26] MEDS: Nystatin Powder 15gm Bottle 1 APPLIC TOPICAL ×2 (06:01→14:23)
[2023-08-26 06:27] LABS: Absolute Lymphocyte Count 1.64 X10^3/uL (0.83-4.51); Absolute Neutrophil Count 5.5 X10^3/uL (2.0-7.7); Basophil# 0.04 X10^3/uL; Basophil% 0.5 % (0-1); Eosinophil# 0.29 X10^3/uL; Eosinophils% 3.6 % (0-5); Hematocrit 27.7 % (37-47); Hemoglobin 7.6 g/dL (12.0-15.0); Lymphocyte # 1.64 X10^3/ul (0.83-4.51); Lymphocyte % 20.1 % (19-41); Mean Corp Hgb Conc 27.4 g/dL (32-36); Mean Corpuscular Hgb 23.2 pg (27.0-32.0); Mean Corpuscular Volume 84.7 fL (81-99); Mean Platelet Vol. 9.4 fl (6.2-12.0); Monocyte# 0.61 X10^3/uL; Monocyte% 7.5 % (0-10); NRBC Flagged by Analyzer 0.2 % (0-5); Neutrophil # 5.54 X10^3/uL (2.7-7.7); Neutrophil % 67.8 % (47-70); POSITIVE MORPHOLOGY YES; Platelet Count 554 K/mm3 (150-450); RBC Distribution Width CV 22.4 % (11.6-14.6); RBC Distribution Width SD 65.5 fl (35.1-43.9); Red Blood Count 3.27 M/mm3 (4.2-5.4); White Blood Count 8.2 K/mm3 (4.4-11.0)
[2023-08-26] MEDS: Sucralfate 1 GM Tablet PO ×3 (06:47→15:50)
[2023-08-26 06:52] LABS: Anion Gap 1 (5-15); BUN 14 mg/dL (7-18); Calcium,Total 9.3 mg/dL (8.5-10.1); Chloride 105 mmol/L (98-107); Creatinine, Serum 0.67 mg/dL (0.55-1.02); EST Glomerular Filtration Rate 99 mL/min (>60); Est Glom Filt Rate - Afr Amer 119 mL/min (>60); Glucose 118 mg/dL (74-106); Potassium 4.2 mmol/L (3.5-5.1); Sodium Level 138 mmol/L (136-145)
--- NOTE | 2023-08-26 07:10 | PN.GI_ITS ---
Subjective Subjective Patient is doing okay without any complaints. She denies any nausea, vomiting or diarrhea. Her hemoglobin has been holding all study. Objective Data Objective Data Vital Signs: Vital Signs Temp Pulse Resp BP Pulse Ox O2 Del Method O2 Flow Rate 98 F 98 18 115/71 96 Room Air 0 08/26/23 15:46 08/26/23 15:46 08/26/23 15:46 08/26/23 15:46 08/26/23 16:16 08/26/23 15:46 08/26/23 16:16 FiO2 28 08/18/23 02:36 Oxygen Flow Rate (L/min) [ 0 AMBULATING on Room Air] Oxygen Flow Rate (L/min) [At 0 REST on Room Air] Oxygen Flow Rate (L/min) 2 Oxygen Delivery Method Room Air Weight: 386 lb 7.525 oz Body Mass Index (BMI) 62.4 Intake & Output: Intake and Output for Last 24 Hours 08/24/23 08/25/23 08/26/23 23:59 23:59 23:59 Intake Total 1160 / 1380 660 / 960 1390 / 1390 Output Total 1400 / 1400 0 / 0 Balance -240 / -20 660 / 960 1390 / 1390 Lab / Micro Data 08/26/23 05:43 08/26/23 05:43 Labs: Laboratory Results - last 24 hr 08/26/23 05:43: WBC 8.2, RBC 3.27 L, Hgb 7.6 L, Hct 27.7 L, MCV 84.7, MCH 23.2 L , MCHC 27.4 L, RDW Std Deviation 65.5 H, RDW Coeff of Chepe 22.4 H, Plt Count 554 H, MPV 9.4, Immature Gran % (Auto) 0.500, Neut % (Auto) 67.8, Lymph % (Auto) 20.1, [place] % (Auto) 7.5, Eos % (Auto) 3.6, Baso % (Auto) 0.5, Absolute Neuts (auto) 5.5, Absolute Lymphs (auto) 1.64, Nucleated RBC % 0.2, Differential Comment SCANNED, Hypochromasia 1+, Anisocytosis 2+, Microcytosis 1+, Macrocytosis 1+, Sodium 138, Potassium 4.2, Chloride 105, Carbon Dioxide 32.0, Anion Gap 1 L, BUN 14, Creatinine 0.67, Estim Creat Clear Calc 163.90, Est GFR (MDRD) Af Amer 119, Est GFR (MDRD) Non-Af 99, BUN/Creatinine Ratio 21.0 H, Glucose 118 H, Calcium 9.3 Micro: Microbiology 08/21/23 13:05 Blood Culture (Wb) - Right Forearm Blood Culture - Final No growth in 5 days. 08/20/23 09:42 Blood Culture (Wb) - Left Hand Blood Culture - Final No growth in 5 days. 08/20/23 08:48 Sputum, Expectorated/Coughed Gram Stain - Final 08/20/23 08:48 Sputum, Expectorated/Coughed Respiratory Culture - Final Presumptive C albicans Meth. resistant Staph. aureus 08/19/23 10:00 Blood Culture (Wb) - Anticubital Right Blood Culture - Final Staphylococcus aureus 08/18/23 14:55 Blood Culture (Wb) - Venous Bacteria Detection (PCR) - Final Staphylococcus aureus 08/18/23 14:55 Blood Culture (Wb) - Venous Blood Culture - Final Staphylococcus aureus 08/19/23 10:00 Blood Culture (Wb) - Right Hand Blood Culture - Final Staphylococcus aureus 08/21/23 23:45 Stool Stool Occult Blood (BIANKA) - Final Occult Blood Positive 08/18/23 14:45 Blood Culture (Wb) - Anticubital Right Blood Culture - Final Staphylococcus aureus 08/17/23 21:15 Urine Catheter - Catheter Urine Culture - Final Culture exhibits no growth. 08/17/23 23:58 Mucosa - Nasopharyngeal Respiratory Panel (PCR) - Final 08/17/23 21:15 Urine Catheter - Catheter Legionella Antigen - Final 08/17/23 21:15 Urine Catheter - Catheter Streptococcus pneumoniae Antigen (M - Final Physical Exam Const alert and no apparent distress Constitutional Narrative: up in chair. HEENT head/scalp atraumatic and moist oral mucous membranes Resp no use of accessory muscles Neuro no focal motor deficits Sensorium / Orientation: awake and alert Psych affect normal Assessment & Plan Assessment/Plan (1) Cellulitis: PLAN: Plan Sepsis * Resolved * Secondary to cellulitis and bacteremia involving the lower lower extremity. * resp panel negative, Cellulitis and bacteremia: * +MSSA * cefazolin through the . * BCx on 08/18 and showing S. aureus. Repeat BCx from the C. albicans and S. aureus. * Cellulitis appears to be improving as there is no erythema in the line of demarcation on LLE. * Plan to follow up cultures, and if negative, then PICC line on the . Anemia * Stable * Iron-deficient complicated by rivaroxaban * Transfused 2 units PRBCs. * EGD negative. Colonoscopy poor prep. Diverticulosis. * Received iron sucrose on 08/19. * Will start ferrous sulfate every other day dosing. Charges/Coding Visit Charges Inpatient E&M: 34403 Subs Hosp L3
[2023-08-26 07:14] LABS: Differential Indicated SCAN CRITERIA MET
--- NOTE | 2023-08-26 08:50 | PCM.PN.HOSP ---
Reason for Visit Reason for Visit: Diagnoses Methicillin susceptible Staphylococcus aureus infection as the cause of diseases classified elsewhere (08/17/23) Anemia, unspecified (08/17/23) Gastrointestinal hemorrhage, unspecified (08/17/23) Cellulitis, unspecified (08/17/23) Rheumatoid arthritis, unspecified (08/17/23) Bacteremia (08/17/23) Traumatic compartment syndrome of left lower extremity, initial encounter (08/17/23) Objective Data Objective Data Vital Signs: Vital Signs Temp Pulse Resp BP Pulse Ox O2 Del Method O2 Flow Rate 97.7 F L 89 16 134/68 H 95 Room Air 2 08/26/23 03:21 08/26/23 03:21 08/26/23 03:21 08/26/23 03:21 08/26/23 07:32 08/26/23 07:55 08/26/23 03:21 FiO2 28 08/18/23 02:36 Oxygen Flow Rate (L/min) 2 Oxygen Delivery Method Room Air Weight: 386 lb 7.525 oz Body Mass Index (BMI) 62.4 Intake & Output: Intake and Output for Last 24 Hours 08/24/23 08/25/23 08/26/23 23:59 23:59 23:59 Intake Total 1160 / 1380 660 / 960 580 / 580 Output Total 1400 / 1400 0 / 0 Balance -240 / -20 660 / 960 580 / 580 Lab / Micro Data 08/26/23 05:43 08/26/23 05:43 Labs: Laboratory Results - last 24 hr 08/26/23 05:43: WBC 8.2, RBC 3.27 L, Hgb 7.6 L, Hct 27.7 L, MCV 84.7, MCH 23.2 L, MCHC 27.4 L, RDW Std Deviation 65.5 H, RDW Coeff of Chepe 22.4 H, Plt Count 554 H, MPV 9.4, Immature Gran % (Auto) 0.500, Neut % (Auto) 67.8, Lymph % (Auto) 20.1, [place] % (Auto) 7.5, Eos % (Auto) 3.6, Baso % (Auto) 0.5, Absolute Neuts (auto) 5.5, Absolute Lymphs (auto) 1.64, Nucleated RBC % 0.2, Sodium 138, Potassium 4.2, Chloride 105, Carbon Dioxide 32.0, Anion Gap 1 L, BUN 14, Creatinine 0.67, Estim Creat Clear Calc 163.90, Est GFR (MDRD) Af Amer 119, Est GFR (MDRD) Non-Af 99, BUN/Creatinine Ratio 21.0 H, Glucose 118 H, Calcium 9.3 Micro: Microbiology 08/20/23 09:42 Blood Culture (Wb) - Left Hand Blood Culture - Final No growth in 5 days. 08/21/23 13:05 Blood Culture (Wb) - Right Forearm Blood Culture - Preliminary No growth in 48 hours. 08/20/23 08:48 Sputum, Expectorated/Coughed Gram Stain - Final 08/20/23 08:48 Sputum, Expectorated/Coughed Respiratory Culture - Final Presumptive C albicans Meth. resistant Staph. aureus 08/19/23 10:00 Blood Culture (Wb) - Anticubital Right Blood Culture - Final Staphylococcus aureus 08/18/23 14:55 Blood Culture (Wb) - Venous Bacteria Detection (PCR) - Final Staphylococcus aureus 08/18/23 14:55 Blood Culture (Wb) - Venous Blood Culture - Final Staphylococcus aureus 08/19/23 10:00 Blood Culture (Wb) - Right Hand Blood Culture - Final Staphylococcus aureus 08/21/23 23:45 Stool Stool Occult Blood (BIANKA) - Final Occult Blood Positive 08/18/23 14:45 Blood Culture (Wb) - Anticubital Right Blood Culture - Final Staphylococcus aureus 08/17/23 21:15 Urine Catheter - Catheter Urine Culture - Final Culture exhibits no growth. 08/17/23 23:58 Mucosa - Nasopharyngeal Respiratory Panel (PCR) - Final 08/17/23 21:15 Urine Catheter - Catheter Legionella Antigen - Final 08/17/23 21:15 Urine Catheter - Catheter Streptococcus pneumoniae Antigen (M - Final Assessment & Plan Assessment/Plan (1) MSSA bacteremia: PLAN: Plan The patient is a 52 y/o F w/ PMHx: Morbid obesity, Hx VTE (PE, DVT) with MTHFR mutation/Lupus anticoagulant disorder chronically anticoagulated, GERD, Anxiety and Depression, Diabetes mellitus type II with chronic neuropathy/gastroparesis, Chronic back pain on SL buprenorphine, Chronic anemia/Fe deficiency anemia, Hx GI Bleed/chronic blood loss with esophageal varices, KIKI, Rheumatoid arthritis, Chronic sinus tachycardia, CKD stage II per current trending but prior chart reported Hx CHD stage IIIa, recent discharge 07/02/23 following LLL PNA, sepsis and complicated UTI who now re-presents to the [facility] as direct admission from [facility] ED on 08/17/2023 w/ history of progressively worsening fatigue, malaise, generalized body aches and discomforts as well as fevers and chills prompting outside ED evaluation. #1. Acute Sepsis secondary to Acute RUE Hand and LL Extremity Cellulitis with associated MSSA bacteremia: Admitted as PCU status, initially uncertain etiology thus initiated on IV vancomycin and IV Zosyn, de-escalated to Ancef through 09/02/2023 given underlying cellulitis and eventual noted MSSA bacteremia, blood culture 08/18 and 08/19 with Staph aureus with repeat blood culture from 08/20/2023 with C albicans and Staph aureus with improvement of cellulitis with eventual PICC line placement, infectious disease following, encourage continued elevation of extremities, close monitoring for any worsening erythematous appearance, PT/OT/case management consultation for discharge planning. Awaiting SNF placement approval. #2 Acute GI Bleed with Acute on Chronic anemia/iron deficiency anemia: OSH ED CBC w/ hemoglobin 8.7, baseline noted previously also 8, decreased during presentation down to 6.9 requiring 2 unit PRBC, 08/26/2023 hemoglobin 7.6, gastroenterology consulted with EGD unremarkable, colonoscopy unfortunately with poor prep with evidence of diverticulosis, administered IV sucrose 08/19/2023, started on ferrous sulfate every other day dosing. 08/26/2019 4 repeat hemoglobin 7.6, continue to trend especially given recent recent resumption Xarelto regimen 08/25/2023. #3 High suspicion acute opiate withdrawal with chronic back pain on chronic buprenorphine therapy with additional costochondritis, chest, right-sided and reproducible: Upon admission high suspicion withdrawal as she had been inappropriately taken off her underlying chronic pain management to an as needed short acting agent in the setting of acute pain. Patient with onset during presentation also costochondritis of the right chest, reproducible with lidocaine patch placed with continued improvement.resume patient buprenorphine as well as overlapping pain regimen. Encourage frequent positional changes, PT/OT/CM consultation for discharge planning. #4 Acute kidney injury on CKD stage II per current trending but previous chart reported history noted CKD stage IIIa: Secondary to acute presentation #1 and #2 with poor recent oral intake. Outside hospital ED evaluation with BUN/creatinine 39/2.02, prior baseline creatinine noted to be primarily 0.7-0.9. Will hydrate, hold nephrotoxic medications and repeat chemistry in AM. If no improvement would plan FeNa and renal assessment. #5 Anxiety and depression: We will continue patient home aggressive psychiatric regimen including Rexulti, bupropion, BuSpar, duloxetine, fluvoxamine, Seroquel with encouraged aggressive early follow-up with her psychiatrist/psychologist and continued outpatient counseling. #6 Rheumatoid arthritis: We will continue patient home low-dose prednisone therapy however clinically worsens low threshold to transition to stress dose steroids. #7. Morbid Obesity: Weight loss and lifestyle changes encouraged. #8. History VTE with MTHFR mutation/Lupus anticoagulant disorder: Given GI bleed presentation had temporarily held Xarelto, resumed 08/25/2023, continue to monitor hemoglobin levels. Endoscopy unremarkable as noted. #9. Diabetes mellitus type II: Hold oral home regimen, ADA diet, accu checks w/ ISS. #10 Restless leg syndrome: We will continue patient on pramipexole regimen. #11 KIKI: CPAP nightly. #12. DVT prophylaxis: Continue recently resumed Xarelto regimen, closely monitor hemoglobin level. #13. Code status: Full Code.
[2023-08-26 09:10] LABS: Differential Comment SCANNED
[2023-08-26 09:11] LABS: Anisocytosis 2+; Hypochromasia 1+; Macrocytosis 1+; Microcytosis 1+
[2023-08-26] MEDS: Pantoprazole Sodium 40 MG Tablet PO (09:23)
[2023-08-26] MEDS: Atenolol 50 MG Tablet PO (09:23)
[2023-08-26] MEDS: DULoxetine Hcl 30 MG Capsule PO (09:23)
[2023-08-26] MEDS: predniSONE 10 MG Tablet PO (09:23)
[2023-08-26] MEDS: Buprenorphine HCl 2 MG TAB.SUBL SL (09:23)
[2023-08-26] MEDS: busPIRone 5 MG Tablet 10 MG PO (09:23)
[2023-08-26] MEDS: fluvoxaMINE Maleate 50 MG Tablet 100 MG PO (09:23)
[2023-08-26] MEDS: buPROPion (XL) 300 MG TABLET.XL PO (09:23)
[2023-08-26] MEDS: Menthol/Lanolin/Calamine/Znox 113 GM Tube 1 APPLIC TOPICAL ×2 (09:24→14:23)
--- NOTE | 2023-08-26 09:26 | CASEMGMT ---
SW was informed that patient does not want to go to a fci anymore. Patient wants to go home with home health. Therapy said patient is doing better physically, but still weak and low endurance. SW met with patient. Re-introduced self and role at [facility]. Patient confirmed she wants to go home. Patient has done IV antibiotics at home in the past. Patient said she lives alone, but she has a lot of family members nearby that can help. Patient said her family is all aware of her plan to come home and they are in agreement. KAREY notified ZENON ROMAN. KAREY will notify [facility]. Nimo Llanos NET FISHER TAMI
--- NOTE | 2023-08-26 09:53 | CASEMGMT ---
Discharge Planning A list of?HH providers including quality and resource use data and consistent with the patient's preferred geographic region, medical needs, and insurance network was created in CarePort Guide.? This list was provided to the RN JESSIE. Cynthia Marcelo, Discharge Planning Asst.
--- NOTE | 2023-08-26 10:15 | CASEMGMT ---
SHELLIE Brooke at [facility], myrna [facility] is in network with pt insurance.
--- NOTE | 2023-08-26 10:50 | CASEMGMT ---
Addendum entered by Jenna Jhaveri 08/26/23 12:48: states during round the pt may DC today. Pt updated and states this is OK. [facility] calls this RN JESSIE and states they can accept the pt and SOC will be tomorrow morning. Pt is aware and agreeable. [facility] Referral pending. Original Note: ZENON ROMAN to pt room at this time. Pt states that she wants to go home and feels safe to do so. Pt updated that she will need HH and an infusion company set up for home IV ATB infusions per ID. 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 Pt states that she can be the teachable caregiver for this occurrence. Pt denies seeing a list of local in network HH agencies and chooses [facility] for SN, PT, and OT. Referral called at this time to [facility]. A verbal list of in network infusion companies provided to the pt. Pt chooses [facility] for home infusion ATBs. Will update the pt after MD rounds.
[2023-08-26] MEDS: Lidocaine 5% Patch 1 PATCH TOPICAL (10:51)
--- NOTE | 2023-08-26 11:18 | CASEMGMT ---
[facility] at [facility]. Plan for dc today after 6pm IV dose with [facility] starting in the am. Will confirm with ID that resuming med in am is ok.
[2023-08-26] MEDS: 0.9% Saline Lock 10 ML Syringe IV ×2 (11:38→17:22)
--- NOTE | 2023-08-26 13:32 | CASEMGMT ---
TC to [facility] and [facility] states they did not receive [facility] referral that was sent at 1100. It seems that [facility] is not allowing us to send referrals at this time. Referral faxed to [facility] now.
--- NOTE | 2023-08-26 15:08 | CASEMGMT ---
Patient said she does not need a ride home, her sister is taking her home. Patient also asked for a walker. SW let patient know SW will notify RN JESSIE. SW notified RN JESSIE. Plan: d/c home with home health. Nimo GARRETT
--- NOTE | 2023-08-26 15:28 | CASEMGMT ---
Addendum entered by Joya Redding 08/26/23 16:37: Pt did not require oxygen with ambulation. Pt states she is not bringing a portable tank as she only needs this when she sweeps or mops at home. Addendum entered by Joya Redding 08/26/23 16:06: Pt is covered 100% for IV atb per [facility]. They are able to deliver med to pt this evening. They are aware that C will see pt in the morning. Original Note: RN CM into pt room as SW notified that pt wanted a FWW. Pt reports she wants a rollator. She would like the cost of this prior to agreeing to it. She is aware this will be shipped to her home, she will not get this prior to dc. TC to [facility] to confirm this. Referral sent to [facility] via [facility] at this time. Pt has a FWW she will borrow in the meantime. Pt chose [employer] as she states that she has other DME through them. ID ok'd pt dc'ing after the 6pm dose and HH starting in the morning.
--- NOTE | 2023-08-26 16:17 | DCINST_ITS ---
Discharge Instructions Diet Discharge Diet: Low fat / Low cholesterol Activity Discharge Activity: Return to Normal Activity (Encourage elevation RUE and LLE. Recommend continued snug ky wrap to LLE, toe to above knee, overlapping, no skin showing. May remove as needed for breaks.) May resume sexual activity in: No Restrictions Weight Bearing Status: Weight bearing as tolerated Keep extremity elevated above heart level: Right Arm and Left Leg Dressing / Incision Call your doctor if you observe: Fever of 101 or Higher, Change in Color, Shortness of breath, Swelling in the ankles and Uncontrolled pain Follow Up Care Test Results: Test results from this visit will be discussed in further detail at your follow- up appointment, if applicable. Discharge Plan Admission Admit Date/Time: 08/17/23 20:24 Primary Reason for Your Visit: Cellulitis, Bacteremia, GI bleed w/ ABLA on chronic, Opiate Withdrawal, JAGDISH Attending Provider: Berna Cisneros Primary Care Provider: Tarah Dubon Consulting Providers: Armen Tay; Jesús Hendrickson; Gavin Benito; Leland Gonzalez Instructions Additional Instructions / Restrictions: Admission evaluation/workup and follow-up recommendations: #1. Acute Sepsis secondary to Acute RUE Hand and LL Extremity Cellulitis with associated MSSA bacteremia: Admitted as PCU status, initially uncertain etiology thus initiated on IV vancomycin and IV Zosyn, de-escalated to Ancef through 09/02/2023 given underlying cellulitis and eventual noted MSSA bacteremia, blood culture 08/18 and 08/19 with Staph aureus, PICC line placed, infectious disease consulted and followed. Given planned discharge to home will have home health involvement for antibiotic therapies. #2 Acute GI Bleed with Acute on Chronic anemia/iron deficiency anemia: Outside hospital ED CBC w/ hemoglobin 8.7, baseline noted previously also 8, decreased during presentation down to 6.9 requiring 2 unit PRBC, 08/26/2023 hemoglobin 7.6, gastroenterology consulted with EGD unremarkable, colonoscopy unfortunately with poor prep with evidence of diverticulosis, administered IV sucrose 08/19/2023, started on ferrous sulfate every other day dosing. 08/26/23 repeat hemoglobin 7.6 with baseline Hgb 7-8, continued on restarted Xarelto 08/25/23 per GI allowance. Recommend repeat CBC with you primary care physician at follow-up and recommend keeping upcoming visit with gastroenterology for outpatient colonoscopy. #3. High suspicion acute opiate withdrawal with chronic back pain on chronic buprenorphine therapy with additional costochondritis, chest, right-sided and reproducible: Upon admission high suspicion withdrawal as had been abruptly taken off her underlying chronic pain management to an as needed short acting agent in the setting of acute pain. Patient with onset during presentation also costochondritis of the right chest, reproducible with lidocaine patch placed was continued at discharge. #4 Acute kidney injury on CKD stage II per current trending but previous chart reported history noted CKD stage IIIa: Secondary to acute presentation #1 and #2 with poor recent oral intake. Outside hospital ED evaluation with BUN/creatinine 39/2.02, prior baseline creatinine noted to be primarily 0.7-0.9. And nephrotoxic medication temporarily held. 08/26/2023 BUN/creatinine 14/0.67, resolved. Discharge Orders/Prescriptions Prescriptions: New cefazolin 2 gram recon soln 2 g IV Q8H 10 Days Rx Instructions: dx: MSSA bacteremia. Stop date 09/02/23. weekly bmp and cbc while on cefazolin. Fax to [phone]. acetaminophen 325 mg Tablet 1,000 mg PO Q8H PRN PRN (Reason: Fever, pain 1-04/30) Qty: 0 0RF ferrous sulfate [FeroSul] 325 mg (65 mg iron) Tablet 325 mg PO QODAY@1200 Qty: 0 0RF lidocaine 5 % Adhesive Patch,Medicated 1 patch topical DAILY 15 Days Qty: 15 0RF Protocol: *Topical Application Instructions APPLICATION INSTRUCTIONS: to right upper chest. Rx Instructions: Apply to affected region, 12 hours on, 12 hours off. Continued Actemra 162 mg/0.9 mL syringe 162 mg subcut .weekly bupropion HCl 300 MG tablet extended release 24 hr 300 mg PO DAILY ropinirole 2 MG tablet extended release 24 hr 2 mg PO QHS Xarelto 20 mg tablet 20 mg PO DAILY Hold Instructions: Resume on 08/25/23. Patient Comments: TAKE 1 TABLET BY MOUTH EVERY DAY WITH SUPPER prednisone 5 mg tablet 10 mg PO DAILY Patient Comments: TAKE 2 TABLETS BY MOUTH EVERY DAY. NEEDS OFFICE VISIT fluvoxamine 100 mg tablet 100 mg PO DAILY buspirone 10 mg tablet 10 mg PO DAILY Patient Comments: TAKE 1 TABLET BY MOUTH EVERY MORNING AND TAKE 2 TABLETS BY MOUTH AT BEDTIME buspirone 10 mg tablet 20 mg PO QHS Patient Comments: TAKE 1 TABLET BY MOUTH EVERY MORNING AND TAKE 2 TABLETS BY MOUTH AT BEDTIME atenolol 50 mg tablet 50 mg PO DAILY Patient Comments: TAKE 1 TABLET BY MOUTH EVERY DAY Rexulti 1 mg tablet 1 mg PO DAILY Patient Comments: TAKE 1 TABLET BY MOUTH EVERY DAY Probiotic 1 ea PO/SL DAILY biotin 1 ea PO/SL DAILY pantoprazole 40 mg Tablet,Delayed Release (Dr/Ec) 40 mg PO BID Qty: 60 2RF sucralfate 1 gram tablet 1 g PO Q6H Qty: 120 1RF duloxetine 30 mg capsule,delayed release(DR/EC) 30 mg PO DAILY Ozempic 0.25 mg or 0.5 mg (2 mg/3 mL) pen injector 0.5 mg SUBCUT QWEEK triamcinolone acetonide 0.025 % cream 1 applic topical BID PRN quetiapine 50 mg tablet 50 mg PO QHS tizanidine 4 mg tablet 4 mg PO QHS pramipexole 0.75 mg tablet 0.75 mg PO TID buprenorphine HCl [Belbuca] 150 mcg film 150 mcg BUCCAL Q12H 3 Days Qty: 6 0RF promethazine 25 mg tablet 25 mg PO Q6H PRN (Reason: nausea and vomiting) Qty: 120 3RF Discontinued amoxicillin 500 mg tablet 1,000 mg PO TID Qty: 36 0RF Referrals / Follow Up: [facility] [Provider Group] - 09/11/23 2:30 pm (Please follow- up in 2-4 weeks to re-consider outpatient c-scope set-up as inpatient prep unsatisfactory.) *[facility] [Provider Group] - Within 2 Weeks (Please follow-up re: iron deficiency anemia. May see Oncology/Hematology LANDSCAPE ACCOUNT MANAGER.) Tarah Dubon DO [Primary Care Provider] - See Referral Note (Please follow-up within 3-5 days to review admission and have repeat CBC, BMP.) Disposition Disposition (needs filled in before D/C Order can be placed): Home Health Service
--- NOTE | 2023-08-26 16:19 | PCM.DC.SUM ---
Providers Date of Admission: 08/17/23 Date of Discharge: 08/26/23 Primary Care Physician: Dr. Tarah Dubon, Consultations 08/18/23 07:38 Consult: Gastroenterology Routine Consulting Provider: [facility] Reason for Consult: microcytic anemia EMERGENT Consult: No Notified: Yes Date Notified: 08/18/23 Time Notified: 07:39 Method of Notification: Text 08/20/23 11:16 Consult: Infectious Disease Routine Consulting Provider: Gavin Benito Reason for Consult: bacteremia EMERGENT Consult: No Notified: Yes Date Notified: 08/20/23 Time Notified: 11:16 Method of Notification: Text Reason For Visit: SIRS, UNCLEAR ETIOLOGY Diagnosis Discharge Diagnosis (1) MSSA bacteremia: Status: Acute Code(s): R78.81 - Bacteremia; B95.61 - Methicillin susceptible Staphylococcus aureus infection as the cause of diseases classified elsewhere Plan: Discharge Diagnoses: #1. Acute Sepsis secondary to Acute RUE Hand and LL Extremity Cellulitis with associated MSSA bacteremia #2 Acute GI Bleed with Acute on Chronic anemia/iron deficiency anemia #3. High suspicion acute opiate withdrawal with chronic back pain on chronic buprenorphine therapy with additional costochondritis, chest, right-sided and reproducible #4 Acute kidney injury on CKD stage II per current trending but previous chart reported history noted CKD stage IIIa #5 Anxiety and depression #6 Rheumatoid arthritis #7. Morbid Obesity #8. History VTE with MTHFR mutation/Lupus anticoagulant disorder #9. Diabetes mellitus type II #10 Restless leg syndrome #11 KIKI: CPAP nightly Medications at Discharge Home Medications bupropion HCl 300 mg 24 hr tablet, extended release 300 mg PO DAILY mental health 08/25/18 ropinirole 2 mg tablet,extended release 24 hr 2 mg PO QHS restless legs 08/25/18 rivaroxaban 20 mg tablet (Xarelto) 20 mg PO DAILY blood thinner 06/01/22 Probiotic 1 ea PO/SL DAILY IMMUNE HEALTH 09/21/22 atenolol 50 mg tablet 50 mg PO DAILY HEART 09/21/22 biotin 1 ea PO/SL DAILY SUPPLEMENT 09/21/22 brexpiprazole 1 mg tablet (Rexulti) 1 mg PO DAILY MENTAL HEALTH 09/21/22 buspirone 10 mg tablet 10 mg PO DAILY ANXIETY 09/21/22 buspirone 10 mg tablet 20 mg PO QHS ANXIETY 09/21/22 fluvoxamine 100 mg tablet 100 mg PO DAILY MENTAL HEALTH 09/21/22 prednisone 5 mg tablet 10 mg PO DAILY RA 09/21/22 pantoprazole 40 mg tablet,delayed release 40 mg PO BID reflux #60 tabs 10/26/22 sucralfate 1 gram tablet 1 g PO Q6H reflux #120 tabs 10/26/22 tocilizumab 162 mg/0.9 mL subcutaneous syringe (Actemra) 162 mg subcut .weekly 03/18/23 promethazine 25 mg tablet 25 mg PO Q6H PRN nausea and vomiting #120 tabs 04/11/23 duloxetine 30 mg capsule,delayed release 30 mg PO DAILY mental health 06/29/23 quetiapine 50 mg tablet 50 mg PO QHS sleep 06/29/23 semaglutide 0.25 mg or 0.5 mg (2 mg/3 mL) subcutaneous pen injector (Ozempic) 0.5 mg subcut QWEEK diabetes 06/29/23 tizanidine 4 mg tablet 4 mg PO QHS spasms 06/29/23 triamcinolone acetonide 0.025 % topical cream 1 applic topical BID PRN celiac rash 06/29/23 pramipexole 0.75 mg tablet 0.75 mg PO TID 08/17/23 cefazolin 2 gram intravenous solution 2 g IV Q8H 10 days 08/22/23 acetaminophen 325 mg tablet 1,000 mg (3.0769 x 325 mg) PO Q8H PRN PRN Fever, pain 1-04/30 #0 tabs 08/23/23 buprenorphine HCl 150 mcg buccal film (Belbuca) 150 mcg buccal Q12H pain relief 3 days #6 ea 08/23/23 ferrous sulfate 325 mg (65 mg iron) tablet (FeroSul) 325 mg PO QODAY@1200 #0 tabs 08/23/23 lidocaine 5 % topical patch 1 patch topical DAILY 15 days #15 ea 08/26/23 Hospital Course Operations None Procedures Colonoscopy, EGD, EKG and - (Blood transfusion.) Summary of Care Provided Minutes Spent on Discharge: 35 Hospital Course: The patient is a 52 y/o F w/ PMHx: Morbid obesity, Hx VTE (PE, DVT) with MTHFR mutation/Lupus anticoagulant disorder chronically anticoagulated, GERD, Anxiety and Depression, Diabetes mellitus type II with chronic neuropathy/gastroparesis, Chronic back pain on SL buprenorphine, Chronic anemia/Fe deficiency anemia, Hx GI Bleed/chronic blood loss with esophageal varices, KIKI, Rheumatoid arthritis, Chronic sinus tachycardia, CKD stage II per current trending but prior chart reported Hx CHD stage IIIa, recent discharge 07/02/23 following LLL PNA, sepsis and complicated UTI presented to the [facility] as direct admission from [facility] ED on 08/17/2023 w/ history of progressively worsening fatigue, malaise, generalized body aches and discomforts as well as fevers and chills prompting outside ED evaluation. Admitted as PCU status, initially uncertain etiology thus initiated on IV vancomycin and IV Zosyn, de-escalated to Ancef through 09/02/2023 given evidence of R hand and LLE cellulitis and eventual noted MSSA bacteremia, blood culture 08/18 and 08/19 with Staph aureus, PICC line placed, infectious disease consulted and followed. Given planned discharge to home will have home health involvement for antibiotic therapies with per ID planned ongoing IV cefazolin q8h with weekly labs. Outside hospital ED CBC w/ hemoglobin 8.7, baseline noted previously also 8, decreased during presentation down to 6.9 requiring 2 unit PRBC, 08/26/2023 hemoglobin 7.6, gastroenterology consulted with EGD unremarkable, colonoscopy unfortunately with poor prep with evidence of diverticulosis, administered IV sucrose 08/19/2023, started on ferrous sulfate every other day dosing. 08/26/23 repeat hemoglobin 7.6 with baseline Hgb 7-8, continued on restarted Xarelto 08/25/23 per GI allowance. Recommend repeat CBC with you primary care physician at follow-up and recommend keeping upcoming visit with gastroenterology for outpatient colonoscopy. Upon admission high suspicion withdrawal as had been abruptly taken off her underlying chronic pain management to an as needed short acting agent in the setting of acute pain. Patient with onset during presentation also costochondritis of the right chest, reproducible with lidocaine patch placed was continued at discharge. Upon presentation with patient with evidence JAGDISH on CKD stage IIIa, felt secondary to her acute illness presentation with also decreased oral intake. Outside hospital ED evaluation with BUN/creatinine 39/2.02, prior baseline creatinine noted to be primarily 0.7-0.9. And nephrotoxic medication temporarily held with resolution. 08/26/2023 BUN/creatinine 14/0.67, resolved. Given patient clinical improvement patient transitioned to home with home therapies per her request with ongoing IV antibiotic therapy, iron supplementation, lidocaine patches for discomfort with planned follow-up with gastroenterology as well as ongoing care with hematology and her primary care physician. DAY OF DISCHARGE PROGRESS NOTE: Subjective: Patient without acute event overnight per self and nursing report. Patient denies fever, chills, nausea, emesis, abdominal pain, chest pain or dyspnea. Patient agreeable to discharge to home with home therapies as she is declining skilled facility but she does feel confident and states she is well versed in IV antibiotic therapies at home. Patient will be discharged with follow-up with primary care physician within 3-5 days in addition to encourage follow-up with gastroenterology and hematology as previously arranged. Discussed importance of having repeat CBC and BMP given renal function alteration during presentation and her underlying anemia. Objective:, Heart rate 98, BP 115/71, respiratory rate 18, 98% on room air Physical Examination: General: awake, alert, oriented x 3 and cooperative, seated upright in the PCU bedside chair, no acute distress, notes feeling improved. Skin: normal color, turgor, no icterus, cyanosis, resolved previous erythema/cellulitis to the right hand and left lower extremity, occasional staged ecchymoses likely secondary to lab draws and IV placements. HEENT: AT/NC, EOMI, PERRLA, MMM. Lungs: CTA bilaterally, moderate effort, mild decrease BL bases, no rales, ronchi or wheezing; Heart: Regular rate and rhythm; no gallop, rub audible. Abdomen: soft, morbidly obese, NTTP, ND, distant normal BS. Extremities: no cyanosis, no clubbing, ongoing mild right hand edema but significantly improved since admission, left lower extremity with erythema resolved but still some underlying pedal to mid foy 1+ pitting edema which is likely chronic component given interventions to this leg previously. Neurological: patient awake, alert, oriented as noted, cognitive function appears intact upon questioning,; pupils equally reactive to light and accomodation; cranial nerves II-XII grossly normal, moving all 4 extremities, strength improving, moderately global decrease. Psychiatric: affect appears normal, no acute evidence of depressive or anxiety feelings underlying history. Assessment and Plan: Please see hospital summary above. Weight / BMI Weight Weight: 386 lb 7.525 oz Body Mass Index (BMI) 62.4 ABG / Lab / Microbiology Data 08/26/23 05:43 08/26/23 05:43 Laboratory: Laboratory Results - last 24 hr 08/26/23 05:43: WBC 8.2, RBC 3.27 L, Hgb 7.6 L, Hct 27.7 L, MCV 84.7, MCH 23.2 L, MCHC 27.4 L, RDW Std Deviation 65.5 H, RDW Coeff of [place]pe 22.4 H, Plt Count 554 H, MPV 9.4, Immature Gran % (Auto) 0.500, Neut % (Auto) 67.8, Lymph % (Auto) 20.1, [place] % (Auto) 7.5, Eos % (Auto) 3.6, Baso % (Auto) 0.5, Absolute Neuts (auto) 5.5, Absolute Lymphs (auto) 1.64, Nucleated RBC % 0.2, Differential Comment SCANNED, Hypochromasia 1+, Anisocytosis 2+, Microcytosis 1+, Macrocytosis 1+, Sodium 138, Potassium 4.2, Chloride 105, Carbon Dioxide 32.0, Anion Gap 1 L, BUN 14, Creatinine 0.67, Estim Creat Clear Calc 163.90, Est GFR (MDRD) Af Amer 119, Est GFR (MDRD) Non-Af 99, BUN/Creatinine Ratio 21.0 H, Glucose 118 H, Calcium 9.3 Microbiology: Microbiology 08/21/23 13:05 Blood Culture (Wb) - Right Forearm Blood Culture - Final No growth in 5 days. 08/20/23 09:42 Blood Culture (Wb) - Left Hand Blood Culture - Final No growth in 5 days. 08/20/23 08:48 Sputum, Expectorated/Coughed Gram Stain - Final 08/20/23 08:48 Sputum, Expectorated/Coughed Respiratory Culture - Final Presumptive C albicans Meth. resistant Staph. aureus 08/19/23 10:00 Blood Culture (Wb) - Anticubital Right Blood Culture - Final Staphylococcus aureus 08/18/23 14:55 Blood Culture (Wb) - Venous Bacteria Detection (PCR) - Final Staphylococcus aureus 08/18/23 14:55 Blood Culture (Wb) - Venous Blood Culture - Final Staphylococcus aureus 08/19/23 10:00 Blood Culture (Wb) - Right Hand Blood Culture - Final Staphylococcus aureus 08/21/23 23:45 Stool Stool Occult Blood (BIANKA) - Final Occult Blood Positive 08/18/23 14:45 Blood Culture (Wb) - Anticubital Right Blood Culture - Final Staphylococcus aureus 08/17/23 21:15 Urine Catheter - Catheter Urine Culture - Final Culture exhibits no growth. 08/17/23 23:58 Mucosa - Nasopharyngeal Respiratory Panel (PCR) - Final 08/17/23 21:15 Urine Catheter - Catheter Legionella Antigen - Final 08/17/23 21:15 Urine Catheter - Catheter Streptococcus pneumoniae Antigen (M - Final D/C Instructions Discharge Diet: Low fat / Low cholesterol May resume sexual activity in: No Restrictions Weight Bearing Status: Weight bearing as tolerated Keep extremity elevated above heart level: Right Arm and Left Leg Call your doctor if you observe: Fever of 101 or Higher, Change in Color, Shortness of breath, Swelling in the ankles and Uncontrolled pain Meaningful Use Info Meaningful Use Diagnoses (Choose all that apply): None applicable Discharge Plan Admission Admit Date/Time: 08/17/23 20:24 Primary Reason for Your Visit: Cellulitis, Bacteremia, GI bleed w/ ABLA on chronic, Opiate Withdrawal, JAGDISH Attending Provider: Berna Cisneros Primary Care Provider: Tarah Dubon Consulting Providers: Armen Tay; Jesús Hendrickson; Gavin Benito; Leland Gonzalez Instructions Additional Instructions / Restrictions: Admission evaluation/workup and follow-up recommendations: #1. Acute Sepsis secondary to Acute RUE Hand and LL Extremity Cellulitis with associated MSSA bacteremia: Admitted as PCU status, initially uncertain etiology thus initiated on IV vancomycin and IV Zosyn, de-escalated to Ancef through 09/02/2023 given underlying cellulitis and eventual noted MSSA bacteremia, blood culture 08/18 and 08/19 with Staph aureus, PICC line placed, infectious disease consulted and followed. Given planned discharge to home will have home health involvement for antibiotic therapies. #2 Acute GI Bleed with Acute on Chronic anemia/iron deficiency anemia: Outside hospital ED CBC w/ hemoglobin 8.7, baseline noted previously also 8, decreased during presentation down to 6.9 requiring 2 unit PRBC, 08/26/2023 hemoglobin 7.6, gastroenterology consulted with EGD unremarkable, colonoscopy unfortunately with poor prep with evidence of diverticulosis, administered IV sucrose 08/19/2023, started on ferrous sulfate every other day dosing. 08/26/23 repeat hemoglobin 7.6 with baseline Hgb 7-8, continued on restarted Xarelto 08/25/23 per GI allowance. Recommend repeat CBC with you primary care physician at follow-up and recommend keeping upcoming visit with gastroenterology for outpatient colonoscopy. #3. High suspicion acute opiate withdrawal with chronic back pain on chronic buprenorphine therapy with additional costochondritis, chest, right-sided and reproducible: Upon admission high suspicion withdrawal as had been abruptly taken off her underlying chronic pain management to an as needed short acting agent in the setting of acute pain. Patient with onset during presentation also costochondritis of the right chest, reproducible with lidocaine patch placed was continued at discharge. #4 Acute kidney injury on CKD stage II per current trending but previous chart reported history noted CKD stage IIIa: Secondary to acute presentation #1 and #2 with poor recent oral intake. Outside hospital ED evaluation with BUN/creatinine 39/2.02, prior baseline creatinine noted to be primarily 0.7-0.9. And nephrotoxic medication temporarily held. 08/26/2023 BUN/creatinine 14/0.67, resolved. Discharge Orders/Prescriptions Prescriptions: New cefazolin 2 gram recon soln 2 g IV Q8H 10 Days Rx Instructions: dx: MSSA bacteremia. Stop date 09/02/23. weekly bmp and cbc while on cefazolin. Fax to [phone]. acetaminophen 325 mg Tablet 1,000 mg PO Q8H PRN PRN (Reason: Fever, pain 1-10/10) Qty: 0 0RF ferrous sulfate [FeroSul] 325 mg (65 mg iron) Tablet 325 mg PO QODAY@1200 Qty: 0 0RF lidocaine 5 % Adhesive Patch,Medicated 1 patch topical DAILY 15 Days Qty: 15 0RF Protocol: *Topical Application Instructions APPLICATION INSTRUCTIONS: to right upper chest. Rx Instructions: Apply to affected region, 12 hours on, 12 hours off. Continued Actemra 162 mg/0.9 mL syringe 162 mg subcut .weekly bupropion HCl 300 MG tablet extended release 24 hr 300 mg PO DAILY ropinirole 2 MG tablet extended release 24 hr 2 mg PO QHS Xarelto 20 mg tablet 20 mg PO DAILY Hold Instructions: Resume on 08/25/23. Patient Comments: TAKE 1 TABLET BY MOUTH EVERY DAY WITH SUPPER prednisone 5 mg tablet 10 mg PO DAILY Patient Comments: TAKE 2 TABLETS BY MOUTH EVERY DAY. NEEDS OFFICE VISIT fluvoxamine 100 mg tablet 100 mg PO DAILY buspirone 10 mg tablet 10 mg PO DAILY Patient Comments: TAKE 1 TABLET BY MOUTH EVERY MORNING AND TAKE 2 TABLETS BY MOUTH AT BEDTIME buspirone 10 mg tablet 20 mg PO QHS Patient Comments: TAKE 1 TABLET BY MOUTH EVERY MORNING AND TAKE 2 TABLETS BY MOUTH AT BEDTIME atenolol 50 mg tablet 50 mg PO DAILY Patient Comments: TAKE 1 TABLET BY MOUTH EVERY DAY Rexulti 1 mg tablet 1 mg PO DAILY Patient Comments: TAKE 1 TABLET BY MOUTH EVERY DAY Probiotic 1 ea PO/SL DAILY biotin 1 ea PO/SL DAILY pantoprazole 40 mg Tablet,Delayed Release (Dr/Ec) 40 mg PO BID Qty: 60 2RF sucralfate 1 gram tablet 1 g PO Q6H Qty: 120 1RF duloxetine 30 mg capsule,delayed release(DR/EC) 30 mg PO DAILY Ozempic 0.25 mg or 0.5 mg (2 mg/3 mL) pen injector 0.5 mg SUBCUT QWEEK triamcinolone acetonide 0.025 % cream 1 applic topical BID PRN quetiapine 50 mg tablet 50 mg PO QHS tizanidine 4 mg tablet 4 mg PO QHS pramipexole 0.75 mg tablet 0.75 mg PO TID buprenorphine HCl [Belbuca] 150 mcg film 150 mcg BUCCAL Q12H 3 Days Qty: 6 0RF promethazine 25 mg tablet 25 mg PO Q6H PRN (Reason: nausea and vomiting) Qty: 120 3RF Discontinued amoxicillin 500 mg tablet 1,000 mg PO TID Qty: 36 0RF Referrals / Follow Up: [facility] [Provider Group] - 09/11/23 2:30 pm (Please follow-up in 2-4 weeks to re-consider outpatient c-scope set-up as inpatient prep unsatisfactory.) *[facility] ([facility]) [Provider Group] - Within 2 Weeks (Please follow-up re: iron deficiency anemia. May see Oncology/Hematology TRENCH DIGGER.) Tarah Dubon DO [Primary Care Provider] - See Referral Note (Please follow-up within 3-5 days to review admission and have repeat CBC, BMP.) Disposition Disposition (needs filled in before D/C Order can be placed): Home Health Service Charges/Coding Visit Charges Inpatient E&M: 72218 Disch Hosp >30min
--- NOTE | 2023-08-26 16:37 | CASEMGMT ---
Pt RN notified that the pt can be DC after the pt 1800 dose of the ATB and that [facility] will deliver the med tonight and [facility] will start tomorrow morning. RN Agreeable to plan.
[2023-08-26] MEDS: Rivaroxaban 20 MG Tablet PO (17:22)
== END 2023-08-26 18:22 | disposition home health service (06) | DRG 872 ==
LOC: ICU 08-18 07:03 → PCU 08-18 15:57
PROVIDERS: Anesthesiology; Internal Medicine; Internal Medicine Gastroenterology; Admitting Provider Hospitalist; PCP Family Medicine; Visit Provider Family Medicine
PROC: 0DJ08ZZ Inspection of Upper Intestinal Tract, Via Natural or Artificial Opening Endoscopic (ICD-10-PCS; CPT 43235; principal; 2023-08-21 10:40)
PROC: 0DJD8ZZ Inspection of Lower Intestinal Tract, Via Natural or Artificial Opening Endoscopic (ICD-10-PCS; CPT 45378; principal; 2023-08-22 10:20)
DX: A41.01 Sepsis due to Methicillin susceptible Staphylococcus aureus (principal); D68.62 Lupus anticoagulant syndrome; E87.1 Hypo-osmolality and hyponatremia; D62 Acute posthemorrhagic anemia; Z68.44 Body mass index [BMI] 60.0-69.9, adult; F11.23 Opioid dependence with withdrawal; L03.113 Cellulitis of right upper limb; L03.116 Cellulitis of left lower limb; D63.1 Anemia in chronic kidney disease; E11.22 Type 2 diabetes mellitus with diabetic chronic kidney disease; N18.31 Chronic kidney disease, stage 3a; M06.9 Rheumatoid arthritis, unspecified; G25.81 Restless legs syndrome; F32.A Depression, unspecified; E66.01 Morbid (severe) obesity due to excess calories; E11.40 Type 2 diabetes mellitus with diabetic neuropathy, unspecified; G47.33 Obstructive sleep apnea (adult) (pediatric); F41.9 Anxiety disorder, unspecified; K21.9 Gastro-esophageal reflux disease without esophagitis; E86.1 Hypovolemia; M94.0 Chondrocostal junction syndrome [Tietze]; G89.4 Chronic pain syndrome; Z79.01 Long term (current) use of anticoagulants; Z79.52 Long term (current) use of systemic steroids; Z79.891 Long term (current) use of opiate analgesic; Z79.899 Other long term (current) drug therapy; Z86.711 Personal history of pulmonary embolism; Z79.85 Long-term (current) use of injectable non-insulin antidiabetic drugs
CPT/HCPCS: 36415; 36569; 71045; 80048; 80053; 80202; 81001; 82274; 82728; 82962; 83540; 83550; 83605; 83735; 84100; 84145; 84450; 84460; 85014; 85018; 85025; 85610; 85652; 85730; 86140; 86850; 86900; 86901; 86920; 86922; 87040; 87070; 87077; 87086; 87149; 87186; 87205; 87449; 87633; 87641; 93005; 93306; 94002; 94660; 94668; 94762; 97116; 97162; 97166; 97530; 97535; P9016; Q9957; A4216; C8929; J2405; J2916

== ENCOUNTER 2023-08-28 19:34 | Inpatient (IN) | payer MEDICARE, MEDICAID, SELFPAY ==
[2023-08-28 18:28] VITALS: BP 122/66; PULSE 111; RESP 20; TEMP 36.2; O2SAT 94; BMI 60.5
--- NOTE | 2023-08-28 19:33 | PCM.HP.STD ---
HPI - General General Date of Admission: 08/28/23 Date of Service: 08/28/23 Chief Complaint: LLE cellulitis HPI Narrative RICCARDO VICKERS, is a 52 y/o F w/ PMHx: Morbid obesity, Hx VTE (PE, DVT) with MTHFR mutation/Lupus anticoagulant disorder chronically anticoagulated, GERD, Anxiety and Depression, Diabetes mellitus type II with chronic neuropathy/gastroparesis, Chronic back pain on SL buprenorphine, Chronic anemia/Fe deficiency anemia, Hx GI Bleed/chronic blood loss with esophageal varices, KIKI, Rheumatoid arthritis, Chronic sinus tachycardia who presented as a transfer from [facility] ED due to increased redness and swelling and pain in her left leg as well as fever and tachycardia. She was recently admitted for her right hand and left lower extremity cellulitis and found to have MSSA bacteremia and was initially on vancomycin and Zosyn which was de-escalated to Ancef by ID and a PICC was placed with plans for Ancef through 09/02/2023. During her hospitalization she was noted to have hemoglobin that decreased to 6.9 requiring 2 units of packed red blood cells 08/26/2023 and GI was consulted with unremarkable EGD and colonoscopy unfortunately with poor prep but no evidence of bleeding. Her Xarelto was restarted and plans to follow-up outpatient with GI. Patient was discharged home 08/26/2023 and has been having a hard time caring for herself and has felt anxious and overwhelmed additionally felt that she had some worsening of her pain and cellulitis that started yesterday and today was advised to go to the ED and she presented to [facility]. At [facility] temp was 37.7, heart rate 109, blood pressure 118/60 with normal white blood cell count, hemoglobin 8.3, lactic acid normal. X-ray with no gas or osteo and patient not acutely distressed, physician outlying facility not concerned for nec fasc. [facility] contacted regarding transfer given patient was just discharged here 2 days ago, patient accepted and seen upon transfer in her room. She reports she thought she would have more help at home so she has been up on her feet more and feels like that may be part of her swelling but additionally did have some increased erythema and has a spot on her lateral foy on the left that is new and appears to possibly be an abscess but she additionally has some swelling in her right leg with some erythema and that is new. She reports she essentially just has not gotten better since leaving the hospital and last night started to get somewhat worse, does not think she is worsened since she was in the other ED in the spot on her lateral foy was marked and has not worsened either, has some weeping in her legs felt some nausea and chills last night. Denies any other focal complaints today. [facility] Medical History (Updated 08/23/23 @ 14:[address] Leland Gonzalez, DO) Anemia Anticoagulant long-term use Anxiety and depression CKD (chronic kidney disease) Compartment syndrome of left lower extremity Diabetes mellitus, type 2 Gastroparesis GERD (gastroesophageal reflux disease) History of pulmonary embolism Iron deficiency anemia due to chronic blood loss retirement current use of anticoagulant Lupus anticoagulant disorder Morbid obesity MTHFR mutation KIKI (obstructive sleep apnea) Pleural effusion, left Pulmonary embolism Rheumatoid arthritis RLS (restless legs syndrome) Sinus tachycardia Home Medications bupropion HCl 300 mg 24 hr tablet, extended release 300 mg PO DAILY mental health 08/25/18 [History Last Taken 08/28/23] ropinirole 2 mg tablet,extended release 24 hr 2 mg PO QHS restless legs 08/25/18 [History Last Taken 09/20/22] rivaroxaban 20 mg tablet (Xarelto) 20 mg PO DAILY blood thinner 06/01/22 [History Last Taken 08/27/23] Probiotic 1 ea PO/SL DAILY IMMUNE HEALTH 09/21/22 [History Last Taken 08/28/23] atenolol 50 mg tablet 50 mg PO DAILY HEART 09/21/22 [History Last Taken 08/28/23] biotin 1 ea PO/SL DAILY SUPPLEMENT 09/21/22 [History Last Taken 08/28/23] brexpiprazole 1 mg tablet (Rexulti) 1 mg PO DAILY MENTAL HEALTH 09/21/22 [History Last Taken 08/28/23] buspirone 10 mg tablet 10 mg PO DAILY ANXIETY 09/21/22 [History Last Taken 08/28/23] buspirone 10 mg tablet 20 mg PO QHS ANXIETY 09/21/22 [History Last Taken 08/27/23] fluvoxamine 100 mg tablet 100 mg PO DAILY MENTAL HEALTH 09/21/22 [History Last Taken 08/28/23] prednisone 5 mg tablet 10 mg PO DAILY RA 09/21/22 [History Last Taken 08/28/23] pantoprazole 40 mg tablet,delayed release 40 mg PO BID reflux #60 tabs 10/26/22 [Rx Last Taken 08/28/23] sucralfate 1 gram tablet 1 g PO Q6H reflux #120 tabs 10/26/22 [Rx Last Taken 08/28/23] tocilizumab 162 mg/0.9 mL subcutaneous syringe (Actemra) 162 mg subcut .weekly immunosuppressant 03/18/23 [History Last Taken Unknown] promethazine 25 mg tablet 25 mg PO Q6H PRN nausea and vomiting #120 tabs 04/11/23 [Rx Last Taken Unknown] duloxetine 30 mg capsule,delayed release 30 mg PO DAILY mental health 06/29/23 [History Last Taken 08/28/23] quetiapine 50 mg tablet 50 mg PO QHS sleep 06/29/23 [History Last Taken 08/27/23] semaglutide 0.25 mg or 0.5 mg (2 mg/3 mL) subcutaneous pen injector (Ozempic) 0.5 mg subcut QWEEK diabetes 06/29/23 [History Last Taken Unknown] tizanidine 4 mg tablet 4 mg PO QHS spasms 06/29/23 [History Last Taken Unknown] triamcinolone acetonide 0.025 % topical cream 1 applic topical BID PRN celiac rash 06/29/23 [History Last Taken Unknown] pramipexole 0.75 mg tablet 0.75 mg PO TID restless leg 08/17/23 [History Last Taken Unknown] cefazolin 2 gram intravenous solution 2 g IV Q8H bacteremia 10 days 08/22/23 [Rx Last Taken Unknown] acetaminophen 325 mg tablet 1,000 mg (3.0769 x 325 mg) PO Q8H PRN PRN Fever, pain 1-04/30 #0 tabs 08/23/23 [Rx Last Taken Unknown] buprenorphine HCl 150 mcg buccal film (Belbuca) 150 mcg buccal Q12H pain relief 3 days #6 ea 08/23/23 [Rx Last Taken Unknown] ferrous sulfate 325 mg (65 mg iron) tablet (FeroSul) 325 mg PO QODAY@1200 anemia #0 tabs 08/23/23 [Rx Last Taken 08/27/23] quetiapine 25 mg tablet 25 mg PO .at bedtime sleep 08/28/23 [History Last Taken 08/27/23] Allergy/AdvReac Type Severity Reaction Status Date / Time adhesive tape AdvReac Rash Verified 06/29/23 09:22 Family History Mother Cancer Lung CA w/ concurrent tobacco use. Heart disease Surgical History History of fasciotomy History of hysterectomy History of total bilateral knee replacement S/P pericardial window creation Social History household members: family Smoking Status: Never smoker alcohol intake: never substance use type: does not use ROS ROS Narrative General: Possibly had some chills last night HENT: Denies headache, denies stuffy nose, denies sore throat EYES: Denies changes in vision Resp: Denies cough, denies shortness of breath Cardiac: Denies chest pain GI: Denies abdominal pain, denies changes in bowel, had some nausea last night : Denies changes in urination Extremity: Swelling both lower extremities MSK: Denies weakness Neuro: Denies any numbness/tingling Heme: Denies any bleeding or bruising Skin: Has some weeping in lower extremities and some increased erythema on her right foy and left leg with slightly worsened erythema and a spot where sharply demarcated on left lateral foy Psychiatric: Reports she has been more anxious Vital Signs Vital Signs Vital Signs: 08/28/23 18:28 Temperature 97.2 F L Temperature Source Temporal Pulse Rate 111 H Respiratory Rate 20 H Blood Pressure [BP] 122/66 H Blood Pressure Mean [BP] 84 Blood Pressure Source [BP] Monitor Blood Pressure Position [BP] Supine Blood Pressure Location [BP] Right Forearm Pulse Ox 94 Oxygen Delivery Method Room Air Weight Weight: 170 kg Body Mass Index (BMI) 60.5 Physical Exam Narrative General: Alert, oriented, no apparent distress HEENT: Atraumatic, normocephalic Eyes: Anicteric, normal conjunctiva, extraocular movements grossly intact Neck: Supple Respiratory: Clear to auscultation bilaterally, normal respiratory effort Cardiovascular: Low-grade tachycardia, regular rhythm GI: Soft, nontender, nondistended Extremities: Patient with 1+ lower extremity edema bilaterally, has some patchy erythema over lower half of right foy and left lower extremity erythematous as well with a spot on left lateral foy that is roughly nickel sized that has small amount draining from it Musculoskeletal: Moving all extremities Neuro: No overt focal neurological deficits Skin: as above Psych: Cooperative Assessment & Plan Assessment/Plan (1) Cellulitis: (2) Anemia: (3) History of pulmonary embolism: (4) GERD (gastroesophageal reflux disease): QUALIFIERS: Esophagitis presence: esophagitis presence not specified Qualified Code(s): K21.9 - Gastro-esophageal reflux disease without esophagitis (5) Obesity: QUALIFIERS: Obesity type: due to excess calories Obesity classification: adult class 3 (BMI >= 40) Serious obesity comorbidity presence: without serious comorbidity Body mass index: BMI 60.0-69.9 Qualified Code(s): E66.01 - Morbid (severe) obesity due to excess calories; Z68.44 - Body mass index [BMI] 60.0-69.9, adult (6) Rheumatoid arthritis: QUALIFIERS: Rheumatoid arthritis location: unspecified site PLAN: Plan # Bilateral lower extremity cellulitis -With recent MSSA bacteremia and PICC line on cefazolin every 8 -Has some worsened left lower extremity cellulitis with some patchy erythema also on right leg, reports it [facility], additionally has nickel sized spot on left lateral foy that has some spontaneous drainage and has not progressed outside of its marked spot, though there has been some spontaneous drainage will obtain ultrasound of soft tissue to assess for any underlying pocket that may need I&D -IV fluids, broad-spectrum antibiotics -Blood cultures -Will reconsult ID -X-ray at [facility] facility with no gas or osteo and patient with normal white blood cell count and lactic within normal limits -Reportedly patient having difficulty caring for herself and has been anxious and overwhelmed, will consult PT/OT, case management and social work as patient may need placement # History of DVT/PE with MTHFR mutation -Continue Xarelto #Chronic anemia -Hgb 8.3, was 7.6 on discharge -No acute evidence of bleeding at this time #GERD -Continue PPI #Type 2 diabetes mellitus -Glucose checks and sliding scale insulin #Morbid obesity -BMI 60.5 kg/m? -Complicates treatment, prognosis, outcomes -Recommend weight loss and lifestyle changes # Anxiety and depression -Patient on multiple medications, specifically she is on an SNRI duloxetine with an SSRI Luvox, these are contraindicated together so we will only continue the duloxetine but will continue her other home psychiatric medications # Chronic back pain -PT/OT -Supportive care -Continue home medications # RA -Patient on 10 mg of prednisone daily -Does not seem she presently needs any stress dose steroids but monitor closely # RLS -On pramipexole continue medications #DVT ppx: Marleny Santos MD Time spent in the patient's overall evaluation,decision-making process, review of diagnostic data, adjustment of management, discussion with other providers, nursing nursing and ancillary staff involved in patient's care documentation, 57 Minutes Charges/Coding Visit Charges Inpatient E&M: 67536 Init Hosp L2
--- NOTE | 2023-08-28 20:07 | US_ITS ---
We are attempting to reach an attending provider to discuss findings. An addendum with communication details will be sent when the communication is complete. STUDY: SUPERFICIAL ULTRASOUND - LEFT LATERAL FOY. REASON FOR EXAM: Female, 52 years old. left lateral foy, concern for abscess TECHNIQUE: A superficial ultrasound was performed with real-time and static rivera-scale imaging. COMPARISON: None. FINDINGS: Dedicated ultrasound to the left lateral foy region in the region of the lump reveals an elongated fluid collection measuring approximately 5.5 x 5.0 x 1.7 cm which could represent resolving hematoma, seroma or abscess. There is nonspecific mild fluid infiltration with hyperemia within the superficial soft tissues, likely cellulitis. US/Ext Non Vasc Limited/Soft Tiss IMPRESSION: Likely cellulitis in the region of clinical concern with questionable deep or fluid collection which could represent seroma, resolving hematoma or abscess as described in measuring 5.5 x 5.0 x 1.7 cm. Clinical correlation recommended. Electronically Signed: Khushi Jorge MD at 21:07 EST ,
[2023-08-28] MEDS: Acetaminophen 325 MG Tablet 650 MG PO (20:12)
[2023-08-28] MEDS: oxyCODONE 5 MG Tablet PO (20:12)
[2023-08-28] MEDS: 0.9% Normal Saline (1000mL) 1,000 ML 75 ML IV (20:14)
[2023-08-28 20:43] VITALS: BP 115/67; PULSE 108; RESP 16; TEMP 36.4; O2SAT 94
[2023-08-28 20:52] VITALS: BP 115/67; PULSE 108; RESP 16; TEMP 36.4; O2SAT 94
[2023-08-28 20:53] VITALS: PULSE 111
[2023-08-28] MEDS: Vancomycin HCl 2,000 MG in 0.9% Normal Saline (500mL Bag) 500 ML 250 MG IV (21:14)
[2023-08-28] MEDS: Pramipexole Di-HCl 0.25 MG Tablet 0.75 MG PO (21:17)
[2023-08-28] MEDS: QUEtiapine 25 MG Tablet 75 MG PO (21:17)
[2023-08-28] MEDS: Pantoprazole Sodium 40 MG Tablet PO (21:18)
[2023-08-28] MEDS: busPIRone 5 MG Tablet 20 MG PO (21:18)
[2023-08-28] MEDS: Sucralfate 1 GM Tablet PO (21:18)
[2023-08-28] MEDS: tiZANidine HCl 2 MG Tablet 4 MG PO (21:19)
[2023-08-28 21:22] LABS: Bedside Glucose 103 mg/dL (74-106)
[2023-08-28] MEDS: Piperacil/Tazobactam 3.375 GM in 0.9% Normal Saline (50mL MB+) 50 ML IV (21:26)
[2023-08-28] MEDS: Ondansetron 4 MG/2 ML Vial IV (21:34)
[2023-08-28] MEDS: 0.9% Saline Lock 10 ML Syringe IV (21:35)
--- NOTE | 2023-08-28 22:39 | PN.HOSP_ITS ---
Hospitalist Note Patient admitted with bilateral lower extremity cellulitis with history of recent MSSA bacteremia and PICC line on cefazolin every 8 hourly. Patient is worsening of left lower extremity cellulitis. Radiology called me with critical finding that patient has 5.5 x 5.0 x 1.7 cm questionable deep or fluid collection in the left lateral foy with mild fluid infiltration hyperemia most likely abscess but possibility of possible hematoma or seroma. I called orthopedic surgeon Dr. Raza garcia and he agreed to see the patient and plan for for possible surgery tomorrow. Patient on IV antibiotics. Patient had Xarelto today in the morning and is on hold. Patient has a MTHFR mutation/lupus anticoagulant disorder and is on Xarelto. Discussed with the nursing staff and put the patient on n.p.o. past midnight Clinical Impression(s) from Imaging Studies Soft Tissue Ultrasound 08/28/23 20:07 IMPRESSION: Likely cellulitis in the region of clinical concern with questionable deep or fluid collection which could represent seroma, resolving hematoma or abscess as described in measuring 5.5 x 5.0 x 1.7 cm. Clinical correlation recommended. Electronically Signed: Khushi Jorge MD at 21:07 EST Reading Location ID and State: [id number] / [employer] , Service support , ADDENDUM: 08/28/232147 IMPRESSION: Likely cellulitis in the region of clinical concern with questionable deep or fluid collection which could represent seroma, resolving hematoma or abscess as described in measuring 5.5 x 5.0 x 1.7 cm. Clinical correlation recommended. N.B. : The above Results were Read Back by Khushi Jorge MD to Jacy Rios RN, and understanding confirmed on 08/28/2023 21:41:12 (ET). Electronically Signed: Khushi Jorge MD at 21:07 EST ,
[2023-08-29] VITALS (14 sets, daily range): BP systolic 98–141; BP diastolic 50–65; PULSE 93–114; RESP 16–20; TEMP 36.4–36.9; O2SAT 92–100; BMI 59.5
[2023-08-29] MEDS: Piperacil/Tazobactam 3.375 GM in 0.9% Normal Saline (50mL MB+) 50 ML IV (05:49)
[2023-08-29] MEDS: Pramipexole Di-HCl 0.25 MG Tablet 0.75 MG PO ×2 (05:49→21:38)
[2023-08-29] MEDS: Sucralfate 1 GM Tablet PO ×4 (05:50→21:38)
[2023-08-29] MEDS: Nystatin Powder 15gm Bottle 1 APPLIC TOPICAL ×3 (05:50→21:41)
[2023-08-29] MEDS: Acetaminophen 325 MG Tablet 650 MG PO ×2 (06:03→18:58)
[2023-08-29] MEDS: oxyCODONE 5 MG Tablet PO ×2 (06:03→18:57)
[2023-08-29 06:30] LABS: Bedside Glucose 113 mg/dL (74-106)
--- NOTE | 2023-08-29 07:07 | PCM.PN.HOSP ---
Reason for Visit Reason for Visit: Diagnoses Anemia, unspecified (08/28/23) Morbid (severe) obesity due to excess calories (08/28/23) Gastro-esophageal reflux disease without esophagitis (08/28/23) Cellulitis, unspecified (08/28/23) Rheumatoid arthritis, unspecified (08/28/23) Body mass index [BMI] 60.0-69.9, adult (08/28/23) Personal history of pulmonary embolism (08/28/23) Subjective Subjective Patient notes that since her presentation as a direct admission she has had less discomfort of the lower extremities, left lower extremity still has some erythema but it is receded from the lines drawn previously and there is been no discharge from the proximal lateral wound on her foy. She notes that just suddenly had started draining and there was no specific injury that did occur. She notes that she thought she would have a lot more assistance at home which is why she previously insisted upon being discharged to home with home health but unfortunately family has not been as helpful as she was expecting and she is requesting transition to [facility] facility upon discharge at this time. She understands that we are awaiting orthopedic surgery evaluation and likely operative intervention for assessment of fluid collection in the left lower extremity. She currently rates pain to the left lower extremity 4 out of 10 in severity and more dull aching throb however if she palpates or moves it it significantly worsened 10 out of 10. Patient denies fevers, chills, nausea, emesis, abdominal pain, chest pain or dyspnea. Objective Data Objective Data Vital Signs: Vital Signs Temp Pulse Resp BP Pulse Ox O2 Del Method 97.6 F L 104 H 16 118/59 L 94 Room Air 08/29/23 02:20 08/29/23 04:16 08/29/23 02:20 08/29/23 02:20 08/29/23 02:20 08/29/23 02:20 Oxygen Delivery Method Room Air Weight: 374 lb 12.573 oz Body Mass Index (BMI) 60.5 Intake & Output: Intake and Output for Last 24 Hours 08/27/23 08/28/23 08/29/23 23:59 23:59 23:59 Intake Total 1092.5 / 1092.5 50 / 50 Balance 1092.5 / 1092.5 50 / 50 Lab / Micro Data 08/29/23 06:30 08/29/23 06:30 Labs: Laboratory Results - last 24 hr 08/28/23 20:59: POC Glucose 103 08/29/23 06:09: POC Glucose 113 H Radiography Diagnostic Testing: Radiology Impression Soft Tissue Ultrasound 08/28/23 20:07 IMPRESSION: Likely cellulitis in the region of clinical concern with questionable deep or fluid collection which could represent seroma, resolving hematoma or abscess as described in measuring 5.5 x 5.0 x 1.7 cm. Clinical correlation recommended. Electronically Signed: Khushi Jorge MD at 21:07 EST , ADDENDUM: 08/28/23 214 IMPRESSION: Likely cellulitis in the region of clinical concern with questionable deep or fluid collection which could represent seroma, resolving hematoma or abscess as described in measuring 5.5 x 5.0 x 1.7 cm. Clinical correlation recommended. N.B. : The above Results were Read Back by Khushi Jorge MD to Jacy Rios RN, and understanding confirmed on 08/28/2023 21:41:12 (ET). Electronically Signed: Khushi Jorge MD at 21:07 EST , Physical Exam Narrative Physical Examination: General: awake, alert, oriented x 3 and cooperative, seated upright in the PCU bedside chair, no acute distress, notes feeling improved. Skin: normal color, turgor, no icterus, cyanosis, occasional staged ecchymoses, left lower extremity with significant improvement of erythema with recession from the lines drawn upon admission, no drainage noted from the proximal left lateral wound but still some erythema present and some increased warmth and edema. HEENT: AT/NC, EOMI, PERRLA, MMM. Lungs: CTA bilaterally, moderate effort, mild decrease BL bases, no rales, ronchi or wheezing; Heart: Regular rate and rhythm; no gallop, rub audible. Abdomen: soft, morbidly obese, NTTP, ND, distant normal BS. Extremities: no cyanosis, no clubbing, see skin. Neurological: patient awake, alert, oriented as noted, cognitive function appears intact upon questioning,; pupils equally reactive to light and accommodation, cranial nerves grossly normal, moving all 4 extremities, strength moderately to severely global decreased given her recurrent acute presentation. Psychiatric: affect appears fatigued, no acute evidence of depressive or anxiety feelings underlying history. Assessment & Plan Assessment/Plan (1) Cellulitis: PLAN: Plan The patient is a 52 y/o F w/ PMHx: Morbid obesity, Hx VTE (PE, DVT) with MTHFR mutation/Lupus anticoagulant disorder chronically anticoagulated, GERD, Anxiety and Depression, Diabetes mellitus type II with chronic neuropathy/gastroparesis, Chronic back pain on SL buprenorphine, Chronic anemia/Fe deficiency anemia, Hx GI Bleed/chronic blood loss with esophageal varices, KIKI, Rheumatoid arthritis, Chronic sinus tachycardia, CKD stage II per current trending but prior chart reported Hx CHD stage IIIa, recent discharge 07/02/23 following LLL PNA, sepsis and complicated UTI, recent discharge 08/26/23 following treatment for sepsis, cellulitis R hand/LLE with MSSA bacteremia, GI bleed, Opiate withdrawal who represents as direct admission from OSH ED on 08/28/23 secondary to difficulties caring for herself at home secondary to lack of support that she had expected to have and then onset over the past 24 hours increasing pain to the LLE with erythema recurrence. #1. Recent Acute Sepsis secondary to Acute RUE Hand and LL Extremity Cellulitis with associated MSSA bacteremia w/ presentation now with Acute LLE Recurrent Cellulitis and Concurrent Concern Abscess LLE: Recent presentation as noted with MSSA bacteremia, blood culture 08/18 and 08/19 with Staph aureus, PICC line placed, infectious disease consulted and discharged on IV cefazolin q8h with weekly labs with home health, upon admission to PCU, transitioned back to IV Vanc and IV zosyn, left lower extremity ultrasound obtained with likely cellulitis in the region of clinical concern with questionable deep fluid collection possibly seroma, resolving hematoma or abscess measuring 5.5 x 5.0 x 1.7 cm, Dr. Hernandez orthopedic surgeon consulted overnight per hospitalist physician with patient transition to n.p.o. status and anticoagulant therapy held for possible operative intervention needed with ideally wound culture and MRSA wound intraoperatively, blood culture pending, will continue patient home chronic pain management with additional as needed breakthrough regimen, bowel regimen as needed, PT/OT/case management consulted for discharge planning. #2 Recent Acute GI Bleed with Acute on Chronic anemia/iron deficiency anemia: Recent admission with OSH ED CBC w/ hemoglobin 8.7, baseline noted previously also 8, decreased during presentation down to 6.9 requiring 2 unit PRBC, GI consulted consulted with EGD unremarkable, colonoscopy unfortunately with poor prep with evidence of diverticulosis, administered IV Fe sucrose 08/19/2023, started on oral ferrous sulfate every other day dosing, restarted Xarelto 08/25/23 per GI allowance. 08/26/23 discharged on oral supplementation and with referral to hematology. 08/29/23 CBC with WC 5.9, hemoglobin 7.3, platelet 597 without marked shift. #3. Chronic back pain with chronic pain syndrome: Recent presentation with acute withdrawal suspected, will maintain on chronic buprenorphine therapy with additional breakthrough regimen given acute presentation as noted #1, positional changes, offloading, PT/OT/case management consulted for discharge planning. #4 Recent Acute kidney injury on CKD stage II per current trending but previous chart reported history noted CKD stage IIIa: Recent admission OSH ED BUN/creatinine 39/2.02, prior baseline creatinine noted to be primarily 0.7-0.9. 08/26/2023 BUN/creatinine 14/0.67-->08/29/23 BUN/Cr []. #5. Anxiety and depression: Patient on SNRI duloxetine with an SSRI Luvox which are contraindicated together, upon admission continued only on duloxetine, continued additionally on rexulti, buspar, wellbutrin home regimen, encourage early follow-up with her psychiatrist/psychologist and continued outpatient counseling. #6. Rheumatoid arthritis: We will continue patient home low-dose prednisone therapy however clinically worsens low threshold to transition to stress dose steroids given acute presentation as noted. #7. Morbid Obesity: Weight loss and lifestyle changes encouraged. #8. History VTE with MTHFR mutation/Lupus anticoagulant disorder: Temporarily holding Xarelto regimen for Orthopedic surgery evaluation for I+D, resume once appropriate. #9. Diabetes mellitus type II: Hold oral home regimen, NPO status currently, resume once appropriate ADA diet, accu checks w/ ISS. #10. GERD with history GI bleed, esophageal varices: We will continue patient home PPI and sucralfate regimen. #11. Restless leg syndrome: We will continue patient on pramipexole regimen. #12. KIKI: CPAP nightly. #13. DVT prophylaxis: SCDs, temporarily holding home Xarelto regimen. Charges/Coding Visit Charges Inpatient E&M: 46545 [facility] Hosp L3
[2023-08-29 07:12] LABS: Absolute Lymphocyte Count 1.04 X10^3/uL (0.83-4.51); Absolute Neutrophil Count 4.1 X10^3/uL (2.0-7.7); Basophil# 0.04 X10^3/uL; Basophil% 0.7 % (0-1); Eosinophil# 0.12 X10^3/uL; Hematocrit 27.3 % (37-47); Hemoglobin 7.3 g/dL (12.0-15.0); Lymphocyte # 1.04 X10^3/ul (0.83-4.51); Lymphocyte % 17.7 % (19-41); Mean Corp Hgb Conc 26.7 g/dL (32-36); Mean Corpuscular Volume 85.8 fL (81-99); Mean Platelet Vol. 9.1 fl (6.2-12.0); Monocyte# 0.59 X10^3/uL; Monocyte% 10.1 % (0-10); NRBC Flagged by Analyzer 0 % (0-5); Neutrophil # 4.05 X10^3/uL (2.7-7.7); Neutrophil % 69.2 % (47-70); POSITIVE MORPHOLOGY YES; Platelet Count 597 K/mm3 (150-450); RBC Distribution Width CV 21.9 % (11.6-14.6); RBC Distribution Width SD 66.4 fl (35.1-43.9); Red Blood Count 3.18 M/mm3 (4.2-5.4); White Blood Count 5.9 K/mm3 (4.4-11.0)
[2023-08-29 07:19] LABS: Differential Indicated SCAN CRITERIA MET
[2023-08-29 07:50] LABS: ALB/GLOB Ratio 0.5 RATIO (0.9-2.4); AST(SGOT) 27 U/L (15-37); Alanine Aminotransfer ALT/SGPT 9 U/L (13-56); Albumin, Serum 2.1 g/dL (3.2-5.0); Alkaline Phosphatase 61 U/L (45-117); Anion Gap 3 (5-15); BUN 8 mg/dL (7-18); BUN/Creat Ratio 10.6 RATIO (10-20); Chloride 110 mmol/L (98-107); Creatinine, Serum 0.76 mg/dL (0.55-1.02); EST Glomerular Filtration Rate 85 mL/min (>60); Est Glom Filt Rate - Afr Amer 103 mL/min (>60); Estimated Creatinine Clearance 141.59 ml/min; Glucose 128 mg/dL (74-106); Magnesium 2.1 mg/dL (1.6-2.6); Potassium 4.1 mmol/L (3.5-5.1); Protein, Total 6.1 g/dL (6.4-8.2); Sodium Level 142 mmol/L (136-145)
--- NOTE | 2023-08-29 08:10 | PCM.RX.CS ---
Consult Antibiotic Management Pharmacy has been consulted to manage selected antibiotic: Vancomycin Type of Intervention Type of Consult: New start Suspected Infection Suspected Infection: Skin/Soft tissue Labs Labs: Sodium 142 mmol/L (136-145) 08/29/23 06:30 Potassium 4.1 mmol/L (3.5-5.1) 08/29/23 06:30 Chloride 110 mmol/L (98-107) H 08/29/23 06:30 Carbon Dioxide 29.0 mmol/L (21.0-32.0) 08/29/23 06:30 Anion Gap 3 (5-15) L 08/29/23 06:30 BUN 8 mg/dL (7-18) 08/29/23 06:30 Creatinine 0.76 mg/dL (0.55-1.02) 08/29/23 06:30 Est GFR (MDRD) Af Amer 103 mL/min (>60) 08/29/23 06:30 Est GFR (MDRD) Non-Af 85 mL/min (>60) 08/29/23 06:30 BUN/Creatinine Ratio 10.6 RATIO (10-20) 08/29/23 06:30 Glucose 128 mg/dL (74-106) H 08/29/23 06:30 Goal Trough Goal Trough: 15-20 mcg/mL Pharmacy Plan for Drug Dosing Pharmacy Plan for Drug Dosing: NEW START IV VANCOMYCIN Consulting Physician: Dr. Santos Indication: Cellulitis Goal Trough: 15-20 SrCr: 0.76 (08/29) CrCl: >100 mL/min Comments: Patient had a loading dose of 2000mg IV x1 ordered and administered 08/28 @2113 Vancomycin Dose: Patient will be started on vancomycin 1500mg IV Q8hr to start 08/29 @0900 Pending Level: 08/30/23 @0830, prior to 4th dose of scheduled vancomycin. Note: Drawing prior to the 4th scheduled, not total because scheduled dosing was delayed d/t waiting for BMP to come back. Based on current renal function, next dose would have been due ~0500. For this reason, trough scheduled prior to the 4th scheduled dose. Pharmacy Service will continue to monitor and adjust dosing as required.
[2023-08-29 08:15] LABS: Anisocytosis 2+
--- NOTE | 2023-08-29 10:40 | CASEMGMT ---
ZENON ROMAN Readmission Review: Index: 08/17/23 thru 08/26/23, Dx: MSSA Bactermia Readmission: 08/28/23, Dx: recurrent cellulitis Pt with comorditities including CKD, anxiety, depression, RA, morbid obesity, DM type II, restless leg syndrome and KIKI on CPAP was admitted and readmitted on the above noted dates for the corresponding dx's. Pt was discharged on index to home after deciding not to go to a SNF at discharge. Pt was established with [facility] for SN, PT and OT and [facility] for home IV antibiotic infusion. This ZENON ROMAN met with pt face to face and discussed pt's care upon returning home. Pt states she received the IV antibiotics and [facility] had been out to visit her. Pt states she had been doing well with administering the IV antibiotics herself and these were going well. Pt states she was scared being alone and was afraid to walk independently. Pt states she thought her family would be able to help her more than they have been available to do. Pt states she was not home long enough to attend any f/u appointments. Pt states she does have all of her medications and has been taking them as prescribed but states she did not administer her two injections (Ozempic and a med for her RA) that were due yesterday. Pt states she would like to stay at [facility] on the TCU after discharge and states they had accepted her last admission until she changed her mind. Explained to pt that we would check with TCU and inform her of next steps. Pt agreeable to this plan. Plan: SNF, pending acceptance. Ronnie Cloud RN AC
--- NOTE | 2023-08-29 10:46 | PCM.CONS.GEN ---
Assessment & Plan Assessment/Plan (1) MSSA bacteremia: PLAN: On cefazolin as outpt. New L foy fluid collection, drainage planned. On empiric vanc/zosyn for now. Will narrow to vanc/ancef. Will follow, thank you HPI Consult Data Date of Consult: 08/29/23 HPI Narrative Reason for Consultation: abscess HPI Narrative: RICCARDO VICKERS, is a 52 F who was discharged 08/26/23 on iv cefazolin via picc for MSSA bacteremia. Came back 08/28 due to new onset L foy mild pain, swelling, warmth. Found to have 5x5x1.7cm fluid collection. Admitted on vanc/zosyn, feeling ok, no issues with picc. 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 Lupus anticoagulant disorder Morbid obesity MTHFR mutation KIKI (obstructive sleep apnea) Pleural effusion, left Pulmonary embolism Rheumatoid arthritis RLS (restless legs syndrome) Sinus tachycardia Home Medications bupropion HCl 300 mg 24 hr tablet, extended release 300 mg PO DAILY mental health 08/25/18 [History Last Taken 08/28/23] ropinirole 2 mg tablet,extended release 24 hr 2 mg PO QHS restless legs 08/25/18 [History Last Taken 09/20/22] rivaroxaban 20 mg tablet (Xarelto) 20 mg PO DAILY blood thinner 06/01/22 [History Last Taken 08/27/23] Probiotic 1 ea PO/SL DAILY IMMUNE HEALTH 09/21/22 [History Last Taken 08/28/23] atenolol 50 mg tablet 50 mg PO DAILY HEART 09/21/22 [History Last Taken 08/28/23] biotin 1 ea PO/SL DAILY SUPPLEMENT 09/21/22 [History Last Taken 08/28/23] brexpiprazole 1 mg tablet (Rexulti) 1 mg PO DAILY MENTAL HEALTH 09/21/22 [History Last Taken 08/28/23] buspirone 10 mg tablet 10 mg PO DAILY ANXIETY 09/21/22 [History Last Taken 08/28/23] buspirone 10 mg tablet 20 mg PO QHS ANXIETY 09/21/22 [History Last Taken 08/27/23] fluvoxamine 100 mg tablet 100 mg PO DAILY MENTAL HEALTH 09/21/22 [History Last Taken 08/28/23] prednisone 5 mg tablet 10 mg PO DAILY RA 09/21/22 [History Last Taken 08/28/23] pantoprazole 40 mg tablet,delayed release 40 mg PO BID reflux #60 tabs 10/26/22 [Rx Last Taken 08/28/23] sucralfate 1 gram tablet 1 g PO Q6H reflux #120 tabs 10/26/22 [Rx Last Taken 08/28/23] tocilizumab 162 mg/0.9 mL subcutaneous syringe (Actemra) 162 mg subcut .weekly immunosuppressant 03/18/23 [History Last Taken Unknown] promethazine 25 mg tablet 25 mg PO Q6H PRN nausea and vomiting #120 tabs 04/11/23 [Rx Last Taken Unknown] duloxetine 30 mg capsule,delayed release 30 mg PO DAILY mental health 06/29/23 [History Last Taken 08/28/23] quetiapine 50 mg tablet 50 mg PO QHS sleep 06/29/23 [History Last Taken 08/27/23] semaglutide 0.25 mg or 0.5 mg (2 mg/3 mL) subcutaneous pen injector (Ozempic) 0.5 mg subcut QWEEK diabetes 06/29/23 [History Last Taken Unknown] tizanidine 4 mg tablet 4 mg PO QHS spasms 06/29/23 [History Last Taken Unknown] triamcinolone acetonide 0.025 % topical cream 1 applic topical BID PRN celiac rash 06/29/23 [History Last Taken Unknown] pramipexole 0.75 mg tablet 0.75 mg PO TID restless leg 08/17/23 [History Last Taken Unknown] cefazolin 2 gram intravenous solution 2 g IV Q8H bacteremia 10 days 08/22/23 [Rx Last Taken Unknown] acetaminophen 325 mg tablet 1,000 mg (3.0769 x 325 mg) PO Q8H PRN PRN Fever, pain 1-10/10 #0 tabs 08/23/23 [Rx Last Taken Unknown] buprenorphine HCl 150 mcg buccal film (Belbuca) 150 mcg buccal Q12H pain relief 3 days #6 ea 08/23/23 [Rx Last Taken Unknown] ferrous sulfate 325 mg (65 mg iron) tablet (FeroSul) 325 mg PO QODAY@1200 anemia #0 tabs 08/23/23 [Rx Last Taken 08/27/23] quetiapine 25 mg tablet 25 mg PO .at bedtime sleep 08/28/23 [History Last Taken 08/27/23] Allergy/AdvReac Type Severity Reaction Status Date / Time adhesive tape AdvReac Rash Verified 06/29/23 09:22 Family History Mother Cancer Lung CA w/ concurrent tobacco use. Heart disease Surgical History History of fasciotomy History of hysterectomy History of total bilateral knee replacement S/P pericardial window creation Social History household members: family Smoking Status: Never smoker alcohol intake: never substance use type: does not use Physical Exam Const alert, oriented x3 and no apparent distress General Appearance: cooperative HEENT normocephalic and head/scalp atraumatic Eyes PERRL and EOMs intact bilaterally Neck supple Resp normal air movement and clear to auscultation bilaterally Cardio regular rate and regular rhythm GI soft to palpation, non-tender and non-distended Extremity General Extremity: edema Skin Skin Narrative: L foy mild redness, swelling, no drainage Neuro CN's II-XII intact bilaterally Lab / Micro Data Attestation: I reviewed the patient's lab results. 08/29/23 06:30 08/29/23 06:30 Labs: Laboratory Results - last 24 hr 08/28/23 20:59: POC Glucose 103 08/29/23 06:09: POC Glucose 113 H 08/29/23 06:30: WBC 5.9, RBC 3.18 L, Hgb 7.3 L, Hct 27.3 L, MCV 85.8, MCH 23.0 L, MCHC 26.7 L, RDW Std Deviation 66.4 H, RDW Coeff of Chepe 21.9 H, Plt Count 597 H, MPV 9.1, Immature Gran % (Auto) 0.300, Neut % (Auto) 69.2, Lymph % (Auto) 17.7 L, [place] % (Auto) 10.1 H, Eos % (Auto) 2.0, Baso % (Auto) 0.7, Absolute Neuts (auto) 4.1, Absolute Lymphs (auto) 1.04, Nucleated RBC % 0, Anisocytosis 2+, Sodium 142, Potassium 4.1, Chloride 110 H, Carbon Dioxide 29.0, Anion Gap 3 L, BUN 8, Creatinine 0.76, Estim Creat Clear Calc 141.59, Est GFR (MDRD) Af Amer 103, Est GFR (MDRD) Non-Af 85, BUN/Creatinine Ratio 10.6, Glucose 128 H, Calcium 9.0, Magnesium 2.1, Total Bilirubin 0.30, AST 27, ALT 9 L, Alkaline Phosphatase 61, Total Protein 6.1 L, Albumin 2.1 L, Globulin 4.0, Albumin/Globulin Ratio 0.5 L Imaging Radiology Impression Soft Tissue Ultrasound 08/28/23 20:07 IMPRESSION: Likely cellulitis in the region of clinical concern with questionable deep or fluid collection which could represent seroma, resolving hematoma or abscess as described in measuring 5.5 x 5.0 x 1.7 cm. Clinical correlation recommended. Electronically Signed: Khushi Jorge MD at 21:07 EST Reading Location ID and State: [facility] / [place] , Service support , ADDENDUM: 08/28/238 IMPRESSION: Likely cellulitis in the region of clinical concern with questionable deep or fluid collection which could represent seroma, resolving hematoma or abscess as described in measuring 5.5 x 5.0 x 1.7 cm. Clinical correlation recommended. N.B. : The above Results were Read Back by Khushi Jorge MD to Jacy Rios RN, and understanding confirmed on 08/28/2023 21:41:12 (ET). Electronically Signed: Khushi Jorge MD at 21:07 EST ,
[2023-08-29] MEDS: Atenolol 50 MG Tablet PO (10:48)
[2023-08-29] MEDS: 0.9% Normal Saline (1000mL) 1,000 ML 75 ML IV ×2 (10:48→22:53)
[2023-08-29] MEDS: Vancomycin HCl 1,500 MG in 0.9% Normal Saline (500mL Bag) 500 ML 250 MG IV ×3 (10:48→20:34)
[2023-08-29] MEDS: DULoxetine Hcl 30 MG Capsule PO (10:49)
[2023-08-29] MEDS: buPROPion (XL) 300 MG TABLET.XL PO (10:49)
[2023-08-29] MEDS: busPIRone 5 MG Tablet 10 MG PO (10:49)
[2023-08-29] MEDS: Pantoprazole Sodium 40 MG Tablet PO ×2 (10:49→21:37)
[2023-08-29] MEDS: Ferrous Sulfate 325 MG Tablet PO (10:50)
[2023-08-29] MEDS: predniSONE 5 MG Tablet 10 MG PO (11:02)
[2023-08-29 12:20] LABS: Bedside Glucose 159 mg/dL (74-106)
--- NOTE | 2023-08-29 12:23 | CONS.ORTHO ---
HPI Consult Data Date of Consult: 08/29/23 HPI Narrative HPI Narrative: RICCARDO VICKERS, is a 52 F who presents to [facility] after recent hospitalization discharge day 08/26/2023 due to acute sepsis with MSSA bacteremia and acute right hand and left lower extremity cellulitis. She was discharged with PICC line and IV antibiotics. She returned to the emergency department yesterday after worsening swelling in her legs and recurrent cellulitis. She was admitted under the service of the hospitalist. An ultrasound was obtained of her left lower leg and demonstrated fluid collection concerning for abscess in setting of recent cellulitis. I was consulted for possible surgical intervention. At time my examination, patient states she felt well and better after being admitted to the hospital other than left lower leg pain. She denies any fevers, chills, nausea vomiting, chest pain or shortness of breath. 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 Lupus anticoagulant disorder Morbid obesity MTHFR mutation KIKI (obstructive sleep apnea) Pleural effusion, left Pulmonary embolism Rheumatoid arthritis RLS (restless legs syndrome) Sinus tachycardia Home Medications bupropion HCl 300 mg 24 hr tablet, extended release 300 mg PO DAILY mental health 08/25/18 [History Last Taken 08/28/23] ropinirole 2 mg tablet,extended release 24 hr 2 mg PO QHS restless legs 08/25/18 [History Last Taken 09/20/22] rivaroxaban 20 mg tablet (Xarelto) 20 mg PO DAILY blood thinner 06/01/22 [History Last Taken 08/27/23] Probiotic 1 ea PO/SL DAILY IMMUNE HEALTH 09/21/22 [History Last Taken 08/28/23] atenolol 50 mg tablet 50 mg PO DAILY HEART 09/21/22 [History Last Taken 08/28/23] biotin 1 ea PO/SL DAILY SUPPLEMENT 09/21/22 [History Last Taken 08/28/23] brexpiprazole 1 mg tablet (Rexulti) 1 mg PO DAILY MENTAL HEALTH 09/21/22 [History Last Taken 08/28/23] buspirone 10 mg tablet 10 mg PO DAILY ANXIETY 09/21/22 [History Last Taken 08/28/23] buspirone 10 mg tablet 20 mg PO QHS ANXIETY 09/21/22 [History Last Taken 08/27/23] fluvoxamine 100 mg tablet 100 mg PO DAILY MENTAL HEALTH 09/21/22 [History Last Taken 08/28/23] prednisone 5 mg tablet 10 mg PO DAILY RA 09/21/22 [History Last Taken 08/28/23] pantoprazole 40 mg tablet,delayed release 40 mg PO BID reflux #60 tabs 10/26/22 [Rx Last Taken 08/28/23] sucralfate 1 gram tablet 1 g PO Q6H reflux #120 tabs 10/26/22 [Rx Last Taken 08/28/23] tocilizumab 162 mg/0.9 mL subcutaneous syringe (Actemra) 162 mg subcut .weekly immunosuppressant 03/18/23 [History Last Taken Unknown] promethazine 25 mg tablet 25 mg PO Q6H PRN nausea and vomiting #120 tabs 04/11/23 [Rx Last Taken Unknown] duloxetine 30 mg capsule,delayed release 30 mg PO DAILY mental health 06/29/23 [History Last Taken 08/28/23] quetiapine 50 mg tablet 50 mg PO QHS sleep 06/29/23 [History Last Taken 08/27/23] semaglutide 0.25 mg or 0.5 mg (2 mg/3 mL) subcutaneous pen injector (Ozempic) 0.5 mg subcut QWEEK diabetes 06/29/23 [History Last Taken Unknown] tizanidine 4 mg tablet 4 mg PO QHS spasms 06/29/23 [History Last Taken Unknown] triamcinolone acetonide 0.025 % topical cream 1 applic topical BID PRN celiac rash 06/29/23 [History Last Taken Unknown] pramipexole 0.75 mg tablet 0.75 mg PO TID restless leg 08/17/23 [History Last Taken Unknown] cefazolin 2 gram intravenous solution 2 g IV Q8H bacteremia 10 days 08/22/23 [Rx Last Taken Unknown] acetaminophen 325 mg tablet 1,000 mg (3.0769 x 325 mg) PO Q8H PRN PRN Fever, pain 1-10/10 #0 tabs 08/23/23 [Rx Last Taken Unknown] buprenorphine HCl 150 mcg buccal film (Belbuca) 150 mcg buccal Q12H pain relief 3 days #6 ea 08/23/23 [Rx Last Taken Unknown] ferrous sulfate 325 mg (65 mg iron) tablet (FeroSul) 325 mg PO QODAY@1200 anemia #0 tabs 08/23/23 [Rx Last Taken 08/27/23] quetiapine 25 mg tablet 25 mg PO .at bedtime sleep 08/28/23 [History Last Taken 08/27/23] Allergy/AdvReac Type Severity Reaction Status Date / Time adhesive tape AdvReac Rash Verified 06/29/23 09:22 Family History Mother Cancer Lung CA w/ concurrent tobacco use. Heart disease Surgical History History of fasciotomy History of hysterectomy History of total bilateral knee replacement S/P pericardial window creation Social History household members: family Smoking Status: Never smoker alcohol intake: never substance use type: does not use ROS ROS Narrative 12 point review systems obtained, negative unless otherwise noted in HPI. Vital Signs Vital Signs Vital Signs: 08/28/23 18:28 08/28/23 20:43 08/28/23 20:43 Temperature 97.2 F L Temperature Source Temporal Pulse Rate 111 H Pulse Strength Weak (1+) Respiratory Rate 20 H Respiratory Effort Normal Respiratory Depth Normal Respiratory Pattern Normal Blood Pressure Blood Pressure [BP] 122/66 H Blood Pressure Mean Blood Pressure Mean [BP] 84 Blood Pressure Source Blood Pressure Source [BP] Monitor Blood Pressure Position Blood Pressure Position [BP] Supine Blood Pressure Location Blood Pressure Location [BP] Right Forearm Pulse Ox 94 Oxygen Delivery Method Room Air Room Air 08/28/23 20:43 08/28/23 20:52 08/28/23 20:53 Temperature 97.5 F L 97.5 F L Temperature Source Oral Oral Pulse Rate 108 H 108 H 111 H Pulse Strength Respiratory Rate 16 16 Respiratory Effort Respiratory Depth Respiratory Pattern Blood Pressure 115/67 115/67 Blood Pressure [BP] Blood Pressure Mean 83 83 Blood Pressure Mean [BP] Blood Pressure Source Monitor Blood Pressure Source [BP] Blood Pressure Position Semi-Fowlers Blood Pressure Position [BP] Blood Pressure Location Right Arm Blood Pressure Location [BP] Pulse Ox 94 94 Oxygen Delivery Method Room Air Room Air 08/29/23 00:20 08/29/23 02:20 08/29/23 02:20 Temperature 97.6 F L 97.6 F L Temperature Source Oral Oral Pulse Rate 101 H 114 H 114 H Pulse Strength Respiratory Rate 16 16 Respiratory Effort Respiratory Depth Respiratory Pattern Blood Pressure 118/59 L 118/59 L Blood Pressure [BP] Blood Pressure Mean 78 78 Blood Pressure Mean [BP] Blood Pressure Source Monitor Blood Pressure Source [BP] Blood Pressure Position Semi-Fowlers Blood Pressure Position [BP] Blood Pressure Location Right Arm Blood Pressure Location [BP] Pulse Ox 94 94 Oxygen Delivery Method Room Air Room Air 08/29/23 02:20 08/29/23 04:16 08/29/23 08:00 Temperature 97.7 F L Temperature Source Oral Pulse Rate 104 H 109 H Pulse Strength Respiratory Rate 18 Respiratory Effort Normal Respiratory Depth Normal Respiratory Pattern Normal Blood Pressure 124/65 H Blood Pressure [BP] Blood Pressure Mean 84 Blood Pressure Mean [BP] Blood Pressure Source Blood Pressure Source [BP] Blood Pressure Position Blood Pressure Position [BP] Blood Pressure Location Blood Pressure Location [BP] Pulse Ox 95 Oxygen Delivery Method Room Air Room Air 08/29/23 08:00 08/29/23 08:00 Temperature 97.7 F L Temperature Source Oral Pulse Rate 109 H Pulse Strength Respiratory Rate 18 Respiratory Effort Respiratory Depth Respiratory Pattern Blood Pressure 124/65 H Blood Pressure [BP] Blood Pressure Mean 84 Blood Pressure Mean [BP] Blood Pressure Source Monitor Blood Pressure Source [BP] Blood Pressure Position Semi-Fowlers Blood Pressure Position [BP] Blood Pressure Location Right Forearm Blood Pressure Location [BP] Pulse Ox 95 Oxygen Delivery Method Room Air Room Air Weight Weight: 374 lb 12.573 oz Body Mass Index (BMI) 60.5 Physical Exam Narrative General -A&Ox3, NAD, appears stated age. Vital signs stable, afebrile. Respiratory -normal work of breathing, no intercostal retractions. CV -pulses regular, brisk capillary refill ?4 limbs. Abdomen-soft, nontender, nondistended. No guarding, rigidity, rebound tenderness. Musculoskeletal/neurologic -full range of motion nontender throughout bilateral upper extremities, right lower extremity with full sensation and strength in all dermatomes and myotomes. No midline cervical tenderness. Left lower extremity-no significant cellulitic rashes noted. Prior skin markings demonstrate suspected near complete resolution of erythema. There is minimal swelling compared to the right lower leg. Fasciotomy lower leg scars are noted and well-healed. There is a 1 x 1 cm developing eschar over the proximal anterior compartment. Midline left total knee arthroplasty incisional scar is noted. There is no knee effusion. Patient is tender in the proximal anterior compartment. DF, PF, EHL 5/5. No obvious fluctuance or induration however this is limited by patient pain and morbid obesity. Lab / Micro Data 08/29/23 06:30 08/29/23 06:30 Labs: Laboratory Results - last 24 hr 08/28/23 20:59: POC Glucose 103 08/29/23 06:09: POC Glucose 113 H 08/29/23 06:30: WBC 5.9, RBC 3.18 L, Hgb 7.3 L, Hct 27.3 L, MCV 85.8, MCH 23.0 L, MCHC 26.7 L, RDW Std Deviation 66.4 H, RDW Coeff of Chepe 21.9 H, Plt Count 597 H, MPV 9.1, Immature Gran % (Auto) 0.300, Neut % (Auto) 69.2, Lymph % (Auto) 17.7 L, [place] % (Auto) 10.1 H, Eos % (Auto) 2.0, Baso % (Auto) 0.7, Absolute Neuts (auto) 4.1, Absolute Lymphs (auto) 1.04, Nucleated RBC % 0, Anisocytosis 2+, Sodium 142, Potassium 4.1, Chloride 110 H, Carbon Dioxide 29.0, Anion Gap 3 L, BUN 8, Creatinine 0.76, Estim Creat Clear Calc 141.59, Est GFR (MDRD) Af Amer 103, Est GFR (MDRD) Non-Af 85, BUN/Creatinine Ratio 10.6, Glucose 128 H, Calcium 9.0, Magnesium 2.1, Total Bilirubin 0.30, AST 27, ALT 9 L, Alkaline Phosphatase 61, Total Protein 6.1 L, Albumin 2.1 L, Globulin 4.0, Albumin/Globulin Ratio 0.5 L 08/29/23 11:57: POC Glucose 159 H Imaging Radiology Impression Soft Tissue Ultrasound 08/28/23 20:07 IMPRESSION: Likely cellulitis in the region of clinical concern with questionable deep or fluid collection which could represent seroma, resolving hematoma or abscess as described in measuring 5.5 x 5.0 x 1.7 cm. Clinical correlation recommended. Electronically Signed: Khushi Jorge MD at 21:07 EST , ADDENDUM: 08/28/232147 IMPRESSION: Likely cellulitis in the region of clinical concern with questionable deep or fluid collection which could represent seroma, resolving hematoma or abscess as described in measuring 5.5 x 5.0 x 1.7 cm. Clinical correlation recommended. N.B. : The above Results were Read Back by Khushi Jorge MD to Jacy Rios RN, and understanding confirmed on 08/28/2023 21:41:12 (ET). Electronically Signed: Khushi Jorge MD at 21:07 EST , Assessment & Plan Assessment/Plan (1) Cellulitis: PLAN: Left lower extremity cellulitis with suspected abscess. Given recurrence despite IV antibiotics, I recommended surgical invention in the form of incision and drainage left lower leg. The risk, benefits, terms procedure reviewed with the patient at length and she agreed to proceed. Risk included but were not limited to bleeding, loss of life or limb, need for additional surgery, persistent pain or infection, nonhealing wounds, DVT or PE, risk of anesthesia. Patient expressed understanding of these risks and wished proceed with surgery. Informed consent obtained. N.p.o., hold the oral anticoagulant. Plan to restart Xarelto postoperative day #1. Continue IV antibiotics.
--- NOTE | 2023-08-29 12:34 | CASEMGMT ---
Patient told RN JESSIE she will need to go somewhere at discharge. SW met with patient. Patient familiar to this SW as she was recently at [facility]. SW let patient know [facility] TCU is unable to take her at this time. SW asked patient if she was still interested in [place] or [facility] as those were her choices last time. Patient asked if she could have a new list. SW asked Cynthia to print a new SNF list for patient. Nimo GARRETT
[2023-08-29] MEDS: Buprenorphine HCl 2 MG TAB.SUBL SL ×2 (13:33→21:44)
[2023-08-29] MEDS: Cefazolin 2 GM in 0.9% Normal Saline (100mL Bag) 100 ML IV ×2 (13:34→22:54)
--- NOTE | 2023-08-29 15:34 | CASEMGMT ---
SW took patient the list of [facility] facilities. Patient said she will review the list. Patient's RN notified SW that patient's choices are [facility] and second is [facility]. Nimo GARRETT
[2023-08-29] MEDS: Bupivacaine Mpf 0.5% 30 ML VIAL (16:06)
[2023-08-29] MEDS: Lidocaine 1% /Epi 1:100 (20ml) 20 ML Vial (16:06)
--- NOTE | 2023-08-29 16:45 | OP.PCM_ITS ---
Report of Operation Date of Procedure: 08/29/23
--- NOTE | 2023-08-29 16:45 | PCM.OPRPT ---
Report of Operation Date of Procedure: 08/29/23 Description of Surgical Findings:: Preoperative diagnosis: Suspected left lower leg subcutaneous abscess Postoperative diagnosis: Left lower leg infected hematoma Procedure: Incision and drainage left lower leg hematoma Surgeon: Kavin Hernandez DO Member Certification Manager: Melania Dickson PA-C Anesthesia: MAC with local Brick Burner: Lele Garzon CRNA Estimated blood loss: 25 cc Urine output: None IV fluids: Per anesthesia record Specimen: Aerobic and anaerobic cultures from hematoma fluid Indications: This is a 52-year-old female on chronic anticoagulation therapy who recently was hospitalized with cellulitis of her right hand and left lower leg. She was discharged home on IV antibiotics for 2 days before returning to the emergency department with worsening leg pain and swelling. An ultrasound revealed a fluid collection in her left lower leg as well as a wound at the proximal anterior lateral lower leg. Ultrasound was concerning for abscess versus hematoma versus seroma. Given the persistent cellulitis and apparent infection despite IV antibiotics, I recommend surgical intervention in form of incision and drainage of the left lower leg suspected abscess. I reviewed the risks, benefits, terms the procedure with the patient at length and she agreed to proceed. Risk included but were not limited to bleeding, infection, loss of life or limb, need for additional surgery, persistent pain, nonhealing wounds, neurovascular injury, DVT or PE, risk of anesthesia. Patient expressed understanding of these risks and wished proceed with surgery. Description of procedure: Patient was identified in the preoperative holding area by name, medical record number, and date of . The operative extremities marked. All questions were answered to the patient's satisfaction. At time of her procedure, patient was brought to the operative suite and positioned supine on standard operating table. Gentle MAC anesthesia was administered. Left lower extremities then prepped and draped in normal, sterile orthopedic fashion. We performed timeout confirming the side, site, and operation to be performed. No concerns were voiced and we elected proceed with surgery. I then performed a field block with 20 cc total 1% lidocaine with epinephrine 1: 100,000. A 1 x 1 cm eschar was noted over the anterior lateral proximal leg. This was ellipticized and extended distally approximately 1 cm for a total incision length of approximately 2 cm. Bloody fluid was encountered. This was cultured. A hemostat was then introduced and demonstrated tracking the subcutaneous plane with apparent internal degloving from the fascial layer. The fascia did not appear to be violated. There is no obvious tracking into the left knee joint. I then cauterized the wound edges. Hemostasis was excellent. I copiously irrigated the wound. There was no gross purulence encountered. I then loosely reapproximated the skin edges with interrupted simple 2-0 nylon suture. Bulky sterile compression dressing was applied. Patient was awoken from anesthesia and transferred to her hospital bed and subsequently to PACU in stable condition. Patient tolerated the procedure well without apparent complication. Postoperative plan: Weightbearing as tolerated left lower extremity Strict elevation left lower extremity Edema management, consider CORDELIA hose Oxycodone ordered for pain management Dry sterile dressing changes daily and as needed for saturation Okay to restart Xarelto postoperative day #1 I will follow. Plan to follow-up in approximately 14 days in the office for suture removal.
[2023-08-29 18:06] LABS: Bedside Glucose 112 mg/dL (74-106)
[2023-08-29] MEDS: busPIRone 5 MG Tablet 20 MG PO (21:36)
[2023-08-29] MEDS: tiZANidine HCl 2 MG Tablet 4 MG PO (21:37)
[2023-08-29] MEDS: QUEtiapine 25 MG Tablet 75 MG PO (21:38)
[2023-08-30] VITALS (9 sets, daily range): BP systolic 111–176; BP diastolic 60–76; PULSE 85–106; RESP 16–20; TEMP 36.1–37; O2SAT 94–100; BMI 58.9
[2023-08-30 01:09] LABS: Bedside Glucose 106 mg/dL (74-106)
[2023-08-30] MEDS: Vancomycin HCl 1,500 MG in 0.9% Normal Saline (500mL Bag) 500 ML 250 MG IV (03:58)
--- NOTE | 2023-08-30 06:19 | PCM.PN.HOSP ---
Reason for Visit Reason for Visit: Diagnoses Methicillin susceptible Staphylococcus aureus infection as the cause of diseases classified elsewhere (08/28/23) Anemia, unspecified (08/28/23) Morbid (severe) obesity due to excess calories (08/28/23) Gastro-esophageal reflux disease without esophagitis (08/28/23) Cellulitis, unspecified (08/28/23) Rheumatoid arthritis, unspecified (08/28/23) Bacteremia (08/28/23) Body mass index [BMI] 60.0-69.9, adult (08/28/23) Personal history of pulmonary embolism (08/28/23) Subjective Subjective s/p I+D 08/29/23, drained hematoma per Dr. Price, pending wound cx. Pain well controlled. Objective Data Objective Data Vital Signs: Vital Signs Temp Pulse Resp BP Pulse Ox O2 Del Method O2 Flow Rate 98.1 F 85 18 111/69 96 Nasal Cannula 3 08/30/23 04:55 08/30/23 04:55 08/30/23 04:55 08/30/23 04:55 08/30/23 04:55 08/30/23 04:55 08/30/23 04:55 Oxygen Flow Rate (L/min) 3 Oxygen Delivery Method Nasal Cannula Weight: 365 lb 1.368 oz Body Mass Index (BMI) 58.9 Intake & Output: Intake and Output for Last 24 Hours 08/28/23 08/29/23 08/30/23 23:59 23:59 23:59 Intake Total 1092.5 / 1092.5 3578.75 / 3578.75 Output Total 600 / 600 Balance 1092.5 / 1092.5 2978.75 / 2978.75 Lab / Micro Data 08/30/23 06:20 08/30/23 06:20 Labs: Laboratory Results - last 24 hr 08/29/23 06:09: POC Glucose 113 H 08/29/23 06:30: WBC 5.9, RBC 3.18 L, Hgb 7.3 L, Hct 27.3 L, MCV 85.8, MCH 23.0 L, MCHC 26.7 L, RDW Std Deviation 66.4 H, RDW Coeff of Chepe 21.9 H, Plt Count 597 H, MPV 9.1, Immature Gran % (Auto) 0.300, Neut % (Auto) 69.2, Lymph % (Auto) 17.7 L, [place] % (Auto) 10.1 H, Eos % (Auto) 2.0, Baso % (Auto) 0.7, Absolute Neuts (auto) 4.1, Absolute Lymphs (auto) 1.04, Nucleated RBC % 0, Anisocytosis 2+, Sodium 142, Potassium 4.1, Chloride 110 H, Carbon Dioxide 29.0, Anion Gap 3 L, BUN 8, Creatinine 0.76, Estim Creat Clear Calc 141.59, Est GFR (MDRD) Af Amer 103, Est GFR (MDRD) Non-Af 85, BUN/Creatinine Ratio 10.6, Glucose 128 H, Calcium 9.0, Magnesium 2.1, Total Bilirubin 0.30, AST 27, ALT 9 L, Alkaline Phosphatase 61, Total Protein 6.1 L, Albumin 2.1 L, Globulin 4.0, Albumin/Globulin Ratio 0.5 L 08/29/23 11:57: POC Glucose 159 H 08/29/23 17:29: POC Glucose 112 H 08/29/23 21:35: POC Glucose 106 Physical Exam Narrative Physical Examination: General: awake, alert, oriented x 3 and cooperative, seated upright in the PCU bedside chair, no acute distress, notes feeling improved. Skin: normal color, turgor, no icterus, cyanosis, occasional staged ecchymoses, left lower extremity with significant improvement of erythema with recession from the lines drawn upon admission, no drainage noted from the proximal left lateral wound but still some erythema present and some increased warmth and edema. HEENT: AT/NC, EOMI, PERRLA, MMM. Lungs: CTA bilaterally, moderate effort, mild decrease BL bases, no rales, ronchi or wheezing; Heart: Regular rate and rhythm; no gallop, rub audible. Abdomen: soft, morbidly obese, NTTP, ND, distant normal BS. Extremities: no cyanosis, no clubbing, see skin. Neurological: patient awake, alert, oriented as noted, cognitive function appears intact upon questioning,; pupils equally reactive to light and accommodation, cranial nerves grossly normal, moving all 4 extremities, strength moderately to severely global decreased given her recurrent acute presentation. Psychiatric: affect appears fatigued, no acute evidence of depressive or anxiety feelings underlying history. Assessment & Plan Assessment/Plan (1) Cellulitis: PLAN: Plan The patient is a 52 y/o F w/ PMHx: Morbid obesity, Hx VTE (PE, DVT) with MTHFR mutation/Lupus anticoagulant disorder chronically anticoagulated, GERD, Anxiety and Depression, Diabetes mellitus type II with chronic neuropathy/gastroparesis, Chronic back pain on SL buprenorphine, Chronic anemia/Fe deficiency anemia, Hx GI Bleed/chronic blood loss with esophageal varices, KIKI, Rheumatoid arthritis, Chronic sinus tachycardia, CKD stage II per current trending but prior chart reported Hx CHD stage IIIa, recent discharge 07/02/23 following LLL PNA, sepsis and complicated UTI, recent discharge 08/26/23 following treatment for sepsis, cellulitis R hand/LLE with MSSA bacteremia, GI bleed, Opiate withdrawal who represents as direct admission from OSH ED on 08/28/23 secondary to difficulties caring for herself at home secondary to lack of support that she had expected to have and then onset over the past 24 hours increasing pain to the LLE with erythema recurrence. #1. Recent Acute Sepsis secondary to Acute RUE Hand and LL Extremity Cellulitis with associated MSSA bacteremia w/ presentation now with Acute LLE Recurrent Cellulitis and Concurrent Concern LLE Hematoma, possibly infected: Recent presentation as noted with MSSA bacteremia, blood culture 08/18 and 08/19 with Staph aureus, PICC line placed, infectious disease consulted and discharged on IV cefazolin q8h with weekly labs with home health, upon admission to PCU, transitioned back to IV Vanc and IV zosyn upon admit-->ID de-escalated to Vanc/Ancef 08/29/23. LLE US w/ findings c/w cellulitis in the region of clinical concern with questionable deep fluid collection possibly seroma, resolving hematoma or abscess measuring 5.5 x 5[address] Hernandez orthopedic surgeon consulted with 08/29/23 OR Incision and drainage left lower leg hematoma. Wound RN consulted. Continue dressing changes per Ortho and Wound RN discretion. Wound Cx pending w/ gram stain with some GPC. Bld Cx still pending. Will continue patient home chronic pain management with additional as needed breakthrough regimen, bowel regimen as needed, PT/OT/case management consulted for discharge planning with SNF needs at discharge. #2. Recent Acute GI Bleed with Acute on Chronic anemia/iron deficiency anemia w/ Recurrent Acute on Chronic anemia 08/30/23: Recent admission with OSH ED CBC w/ hemoglobin 8.7, baseline noted previously also 8, decreased during presentation down to 6.9 requiring 2 unit PRBC, GI consulted consulted with EGD unremarkable, colonoscopy unfortunately with poor prep with evidence of diverticulosis, administered IV Fe sucrose 08/19/2023, started on oral ferrous sulfate every other day dosing, restarted Xarelto 08/25/23 per GI allowance. 08/26/23 discharged on oral supplementation and with referral to hematology. 08/29/23 Hgb 7.3-->08/30/23 Hgb 6.3, s/p recent OR with as noted hematoma, possibly related, will administer 2 u PRBC with repeat HH following completion. #3. Chronic back pain with chronic pain syndrome: Recent presentation with acute withdrawal suspected, will maintain on chronic buprenorphine therapy with additional breakthrough regimen given acute presentation as noted #1, positional changes, offloading, PT/OT/case management consulted for discharge planning. #4 Recent Acute kidney injury on CKD stage II per current trending but previous chart reported history noted CKD stage IIIa: Recent admission OSH ED BUN/creatinine 39/2.02, prior baseline creatinine noted to be primarily 0.7-0.9. Currently admission 08/26/2023 BUN/creatinine 14/0.67-->08/29/23 BUN/Cr 10/0.75. #5. Anxiety and depression: Patient on SNRI duloxetine with an SSRI Luvox which are contraindicated together, upon admission continued only on duloxetine, continued additionally on rexulti, buspar, wellbutrin home regimen, encourage early follow-up with her psychiatrist/psychologist and continued outpatient counseling. #6. Rheumatoid arthritis: We will continue patient home low-dose prednisone therapy however clinically worsens low threshold to transition to stress dose steroids given acute presentation as noted. #7. Morbid Obesity: Weight loss and lifestyle changes encouraged. #8. History VTE with MTHFR mutation/Lupus anticoagulant disorder: Held xarelto for OR as noted. 08/30/23 administered PRBC as noted, if Hgb stable overnight if amenable per Orthopedics would plan resumption 08/31/23. #9. Diabetes mellitus type II: Hold oral home regimen, ADA diet, accu checks w/ ISS. #10. GERD with history GI bleed, esophageal varices: We will continue patient home PPI and sucralfate regimen. #11. Restless leg syndrome: We will continue patient on pramipexole regimen. #12. KIKI: CPAP nightly. #13. DVT prophylaxis: SCDs, temporarily holding home Xarelto regimen, administered PRBC as noted, if Hgb stable overnight if amenable per Orthopedics would plan resumption 08/31/23. Charges/Coding Visit Charges Inpatient E&M: 54076 Subs Hosp L3
[2023-08-30 06:42] LABS: Absolute Lymphocyte Count 1.69 X10^3/uL (0.83-4.51); Absolute Neutrophil Count 2.3 X10^3/uL (2.0-7.7); Basophil# 0.06 X10^3/uL; Basophil% 1.2 % (0-1); Eosinophil# 0.25 X10^3/uL; Eosinophils% 5.1 % (0-5); Hematocrit 23.5 % (37-47); Hemoglobin 6.3 g/dL (12.0-15.0); Lymphocyte # 1.69 X10^3/ul (0.83-4.51); Lymphocyte % 34.2 % (19-41); Mean Corp Hgb Conc 26.8 g/dL (32-36); Mean Corpuscular Hgb 23.1 pg (27.0-32.0); Mean Corpuscular Volume 86.1 fL (81-99); Mean Platelet Vol. 8.7 fl (6.2-12.0); Monocyte# 0.61 X10^3/uL; Monocyte% 12.3 % (0-10); NRBC Flagged by Analyzer 0 % (0-5); Neutrophil # 2.33 X10^3/uL (2.7-7.7); Neutrophil % 47.2 % (47-70); POSITIVE MORPHOLOGY YES; Platelet Count 551 K/mm3 (150-450); RBC Distribution Width CV 21.4 % (11.6-14.6); RBC Distribution Width SD 63.7 fl (35.1-43.9); Red Blood Count 2.73 M/mm3 (4.2-5.4); White Blood Count 4.9 K/mm3 (4.4-11.0)
[2023-08-30 06:51] LABS: Differential Indicated SCAN CRITERIA MET
[2023-08-30] MEDS: Sucralfate 1 GM Tablet PO ×3 (06:55→22:19)
[2023-08-30] MEDS: Pramipexole Di-HCl 0.25 MG Tablet 0.75 MG PO ×3 (06:56→22:20)
[2023-08-30] MEDS: Nystatin Powder 15gm Bottle 1 APPLIC TOPICAL ×3 (06:56→22:22)
[2023-08-30] MEDS: Cefazolin 2 GM in 0.9% Normal Saline (100mL Bag) 100 ML IV ×2 (06:56→13:52)
[2023-08-30 06:59] LABS: Bedside Glucose 98 mg/dL (74-106)
[2023-08-30] MEDS: 0.9% Saline Lock 10 ML Syringe IV (07:00)
[2023-08-30] MEDS: oxyCODONE 5 MG Tablet PO ×3 (07:01→22:29)
[2023-08-30 07:25] LABS: ALB/GLOB Ratio 0.5 RATIO (0.9-2.4); AST(SGOT) 10 U/L (15-37); Alanine Aminotransfer ALT/SGPT 8 U/L (13-56); Alkaline Phosphatase 56 U/L (45-117); Anion Gap 3 (5-15); BUN 10 mg/dL (7-18); BUN/Creat Ratio 13.4 RATIO (10-20); Calcium,Total 8.3 mg/dL (8.5-10.1); Chloride 110 mmol/L (98-107); Creatinine, Serum 0.75 mg/dL (0.55-1.02); EST Glomerular Filtration Rate 86 mL/min (>60); Est Glom Filt Rate - Afr Amer 104 mL/min (>60); Estimated Creatinine Clearance 141.04 ml/min; Globulin 3.7 g/dL (2.2-4.2); Glucose 98 mg/dL (74-106); Potassium 3.8 mmol/L (3.5-5.1); Protein, Total 5.7 g/dL (6.4-8.2); Sodium Level 143 mmol/L (136-145)
[2023-08-30 07:40] LABS: Anisocytosis 2+; Hypochromasia 2+
[2023-08-30 07:41] LABS: Platelet Estimate SLT INC (ADEQ)
--- NOTE | 2023-08-30 08:02 | NURSING ---
called pharmacy regarding IV vancomycin that was supposed to be infused and finish @ approx. 1930 on 08/29/23 being hung but clamped, therefore pt. did not receive dose. Pharmacy informed me to unclamp bag and administer IV Vancomycin @ that time and to send any other doses on the unit to have labels and times changed.
[2023-08-30] MEDS: predniSONE 5 MG Tablet 10 MG PO (08:26)
[2023-08-30] MEDS: DULoxetine Hcl 30 MG Capsule PO (10:46)
[2023-08-30] MEDS: buPROPion (XL) 300 MG TABLET.XL PO (10:46)
[2023-08-30] MEDS: Pantoprazole Sodium 40 MG Tablet PO ×2 (10:47→22:20)
[2023-08-30] MEDS: Atenolol 50 MG Tablet PO (10:47)
[2023-08-30] MEDS: busPIRone 5 MG Tablet 10 MG PO (10:47)
[2023-08-30] MEDS: Vancomycin Trough/Random Due 1 LAB MC (10:48)
[2023-08-30] MEDS: Buprenorphine HCl 2 MG TAB.SUBL SL ×2 (10:51→22:30)
--- NOTE | 2023-08-30 11:01 | WOUNDNOTE ---
wound photo: left lower leg
--- NOTE | 2023-08-30 11:02 | CASEMGMT ---
Discharge Planning Referral sent via [facility] to [facility]. Cynthia Marcelo, Discharge Planning Asst.
[2023-08-30 11:41] LABS: Bedside Glucose 137 mg/dL (74-106)
--- NOTE | 2023-08-30 12:42 | PCM.PN.ID ---
Physical Exam Narrative Feeling better, mild leg soreness, no fever Const alert and no apparent distress General Appearance: cooperative Resp normal air movement and clear to auscultation bilaterally Cardio regular rate and regular rhythm Skin no rashes or lesions noted Skin Narrative: leg bandaged ID ID: Route of nutrition/ use of supplements: [] Nutritional Intake: [] IV Site: [] Kamara Catheter: [] Assessment & Plan Assessment/Plan (1) MSSA bacteremia: PLAN: On cefazolin as outpt. New L foy fluid collection, I&D done 08/29/[address] Hernandez. On empiric vanc/ancef. Surg gram stain does show some GPC. Cx pending. Depending on further results, may be able to finish course of abx with po at discharge. Will follow
[2023-08-30 13:16] LABS: Vancomycin, Trough Level 28.7 ug/mL (5.0-15.0)
--- NOTE | 2023-08-30 13:28 | PCM.RX.CS ---
Consult Antibiotic Management Pharmacy has been consulted to manage selected antibiotic: Vancomycin Type of Intervention Type of Consult: Follow-up Suspected Infection Suspected Infection: Skin/Soft tissue Prior Doses of Antibiotics Prior Doses of Antibiotics Received/Current Regimen: Currently on 1500mg iv q8h. Labs Labs: Sodium 143 mmol/L (136-145) 08/30/23 06:20 Potassium 3.8 mmol/L (3.5-5.1) 08/30/23 06:20 Chloride 110 mmol/L (98-107) H 08/30/23 06:20 Carbon Dioxide 30.0 mmol/L (21.0-32.0) 08/30/23 06:20 Anion Gap 3 (5-15) L 08/30/23 06:20 BUN 10 mg/dL (7-18) 08/30/23 06:20 Creatinine 0.75 mg/dL (0.55-1.02) 08/30/23 06:20 Est GFR (MDRD) Af Amer 104 mL/min (>60) 08/30/23 06:20 Est GFR (MDRD) Non-Af 86 mL/min (>60) 08/30/23 06:20 BUN/Creatinine Ratio 13.4 RATIO (10-20) 08/30/23 06:20 Glucose 98 mg/dL (74-106) 08/30/23 06:20 Vancomycin Trough 28.7 ug/mL (5.0-15.0) H 08/30/23 11:55 Microbiology Microbiology: Microbiology 08/29/23 Unknown Incision/Surgical Site Gram Stain - Final Dosing Weight Weight used for dosin kg Estimated Creatinine Clearance Estimated Creatinine Clearance: 142ml/min Goal Trough Goal Trough: 10-15 mcg/mL Pharmacy Plan for Drug Dosing Pharmacy Plan for Drug Dosing: Trough today 8 hrs post last dose was 28.7 and above desired range of 15-20 mcg/ml. Will hold further dosing till level </=20. Random level has been ordered for tomorrow AM. Pharmacy Service will continue to monitor and adjust dosing as required. Follow-Up Labs Follow-Up Labs: Trough: Vancomycin (random level 08.31.23 0600)
[2023-08-30] MEDS: 0.9% Normal Saline (1000mL) 1,000 ML 75 ML IV (13:52)
--- NOTE | 2023-08-30 14:28 | CASEMGMT ---
KAREY notified patient that [facility] can take her when she is ready and when her insurance approves her. Patient thanked KAREY for letting her know. Plan: d/c to [facility] pending insurance approval. Nimo GARRETT
--- NOTE | 2023-08-30 17:16 | PN.ORTHO_ITS ---
Subjective Subjective Patient seen and examined. She denies any new complaints. She states burning is present in her left leg otherwise she states the leg feels good. She denies any fevers, chills, nausea vomiting, chest pain or shortness of breath. Objective Data Objective Data Vital Signs: Vital Signs Temp Pulse Resp BP Pulse Ox O2 Del Method O2 Flow Rate 98.0 F 102 H 20 H 113/69 95 Room Air 3 08/30/23 11:00 08/30/23 11:00 08/30/23 11:00 08/30/23 11:00 08/30/23 11:00 08/30/23 11:00 08/30/23 04:55 Oxygen Flow Rate (L/min) 3 Oxygen Delivery Method Room Air Weight: 365 lb 1.368 oz Body Mass Index (BMI) 58.9 Intake & Output: Intake and Output for Last 24 Hours 08/28/23 08/29/23 08/30/23 23:59 23:59 23:59 Intake Total 1092.5 / 1092.5 3578.75 / 3578.75 2720 / 2720 Output Total 600 / 600 Balance 1092.5 / 1092.5 2978.75 / 2978.75 2720 / 2720 Lab / Micro Data 08/30/23 06:20 08/30/23 06:20 Labs: Laboratory Results - last 24 hr 08/29/23 17:29: POC Glucose 112 H 08/29/23 21:35: POC Glucose 106 08/30/23 06:20: WBC 4.9, RBC 2.73 L, Hgb 6.3 L, Hct 23.5 L, MCV 86.1, MCH 23.1 L , MCHC 26.8 L, RDW Std Deviation 63.7 H, RDW Coeff of Chepe 21.4 H, Plt Count 551 H, MPV 8.7, Immature Gran % (Auto) 0.000, Neut % (Auto) 47.2, Lymph % (Auto) 34.2, [place] % (Auto) 12.3 H, Eos % (Auto) 5.1 H, Baso % (Auto) 1.2 H, Absolute Neuts (auto) 2.3, Absolute Lymphs (auto) 1.69, Nucleated RBC % 0, Platelet Estimate SLT INC, Hypochromasia 2+, Anisocytosis 2+, Sodium 143, Potassium 3.8, Chloride 110 H, Carbon Dioxide 30.0, Anion Gap 3 L, BUN 10, Creatinine 0.75, Estim Creat Clear Calc 141.04, Est GFR (MDRD) Af Amer 104, Est GFR (MDRD) Non-Af 86, BUN/Creatinine Ratio 13.4, Glucose 98, Calcium 8.3 L, Total Bilirubin 0.20, AST 10 L, ALT 8 L, Alkaline Phosphatase 56, Total Protein 5.7 L, Albumin 2.0 L, Globulin 3.7, Albumin/Globulin Ratio 0.5 L 08/30/23 06:42: POC Glucose 98 08/30/23 10:57: POC Glucose 137 H 08/30/23 11:55: Vancomycin Trough 28.7 H 08/30/23 15:18: Blood Type O POSITIVE, Antibody Screen NEGATIVE, Crossmatch See Detail Micro: Microbiology 08/29/23 Unknown Incision/Surgical Site Gram Stain - Final Physical Exam Narrative General - A&Ox3, NAD. VSS/AF left lower extremity -incisional dressing C/D/I with minimal serosanguineous drainage. SILT Sural, Saphenous, SPN, DPN, Tibial N. distributions. DP, PT 2+. BCR. DF, PF, EHL 5/5. No calf TTP. 2?3+ pitting edema left lower leg Assessment & Plan Assessment/Plan (1) Cellulitis: PLAN: POD# 1 s/p left lower leg hematoma incision and drainage -Hemoglobin less than 7 today, acute blood loss was noted surgery but with continued drainage and baseline severe anemia, patient meets criteria for blood transfusion. This has been ordered by primary. - Pain control - Medicine following for medical management - PT/OT -weightbearing as tolerated, edema control left lower extremity - DVT PPX -okay to restart chemoprophylaxis when comfortable from primary. - Case management - D/C planning Continue to follow cultures. Low suspicion for fluid collection be infectious. Antibiotics per primary/ID. Follow-up in 2 weeks for suture removal. Maintain dressing x 5 days wit dry sterile dressing changes daily and as needed for saturation. Okay to shower postoperative day #5 no drainage. Okay to leave open to air after 5 days if no drainage.
[2023-08-30 20:56] LABS: Bacteria 0 SEEN /hpf (None Seen); Mucous, Urine 0 SEEN /hpf (<or=2+)
[2023-08-30 20:57] LABS: Color, Urine Yellow (Yellow); Glucose, Dipstick Normal (Normal); Ketone-Dipstick Negative (Negative); Leukocyte Esterase-Dipstick 500 /ul (Negative); Nitrite-Dipstick Negative (Negative); Occult Blood-Urine 25 /ul (Negative); Protein-Dipstick 15 mg/dl (Negative); Specific Gravity, Urine 1.015 (1.002-1.030); Urine Bilirubin Dipstick Negative (Negative); Urine Clarity Clear (Clear); Urine Urobilinogen Normal (Normal)
[2023-08-30 21:07] LABS: Trichomonas 0-5 SEEN /hpf (None Seen)
[2023-08-30 21:09] LABS: Red Blood Cells-Urine 0-5 SEEN /hpf (0-5); Squamous Epithelial Cells - UA 0-5 SEEN /hpf (5-10); White Blood Cells 0-5 SEEN /hpf (0-5)
[2023-08-30] MEDS: QUEtiapine 25 MG Tablet 75 MG PO (22:20)
[2023-08-30] MEDS: busPIRone 5 MG Tablet 20 MG PO (22:20)
[2023-08-30] MEDS: tiZANidine HCl 2 MG Tablet 4 MG PO (22:21)
[2023-08-31 00:40] VITALS: BP 107/61; PULSE 103; RESP 18; TEMP 36.4; O2SAT 97
[2023-08-31] MEDS: Cefazolin 2 GM in 0.9% Normal Saline (100mL Bag) 100 ML IV ×4 (01:34→20:46)
[2023-08-31 01:40] VITALS: BMI 58.8
[2023-08-31 02:26] LABS: Bedside Glucose 95 mg/dL (74-106)
[2023-08-31 02:50] LABS: Hematocrit 28.9 % (37-47); Hemoglobin 7.9 g/dL (12.0-15.0)
[2023-08-31 05:55] LABS: Absolute Lymphocyte Count 1.26 X10^3/uL (0.83-4.51); Absolute Neutrophil Count 3.7 X10^3/uL (2.0-7.7); Basophil# 0.05 X10^3/uL; Basophil% 0.8 % (0-1); Eosinophil# 0.15 X10^3/uL; Eosinophils% 2.5 % (0-5); Hematocrit 29.7 % (37-47); Hemoglobin 7.9 g/dL (12.0-15.0); Lymphocyte # 1.26 X10^3/ul (0.83-4.51); Mean Corp Hgb Conc 26.6 g/dL (32-36); Mean Corpuscular Hgb 23.5 pg (27.0-32.0); Mean Corpuscular Volume 88.4 fL (81-99); Mean Platelet Vol. 8.7 fl (6.2-12.0); Monocyte# 0.77 X10^3/uL; Monocyte% 12.8 % (0-10); NRBC Flagged by Analyzer 0 % (0-5); Neutrophil # 3.74 X10^3/uL (2.7-7.7); Neutrophil % 62.4 % (47-70); POSITIVE MORPHOLOGY YES; Platelet Count 572 K/mm3 (150-450); RBC Distribution Width CV 20.4 % (11.6-14.6); RBC Distribution Width SD 64.6 fl (35.1-43.9); Red Blood Count 3.36 M/mm3 (4.2-5.4)
[2023-08-31 06:04] LABS: Differential Indicated SCAN CRITERIA MET
[2023-08-31 06:17] LABS: ALB/GLOB Ratio 0.6 RATIO (0.9-2.4); AST(SGOT) 12 U/L (15-37); Alanine Aminotransfer ALT/SGPT 7 U/L (13-56); Albumin, Serum 2.2 g/dL (3.2-5.0); Alkaline Phosphatase 64 U/L (45-117); Anion Gap 3 (5-15); BUN 9 mg/dL (7-18); BUN/Creat Ratio 11.6 RATIO (10-20); Calcium,Total 8.7 mg/dL (8.5-10.1); Chloride 108 mmol/L (98-107); Creatinine, Serum 0.77 mg/dL (0.55-1.02); EST Glomerular Filtration Rate 83 mL/min (>60); Est Glom Filt Rate - Afr Amer 101 mL/min (>60); Estimated Creatinine Clearance 137.16 ml/min; Glucose 105 mg/dL (74-106); Potassium 3.8 mmol/L (3.5-5.1); Protein, Total 6.2 g/dL (6.4-8.2); Sodium Level 142 mmol/L (136-145)
[2023-08-31 06:20] VITALS: BP 110/64; PULSE 96; RESP 18; TEMP 36.6; O2SAT 95
[2023-08-31] MEDS: Pramipexole Di-HCl 0.25 MG Tablet 0.75 MG PO ×3 (06:26→20:45)
[2023-08-31] MEDS: Sucralfate 1 GM Tablet PO ×3 (06:26→20:45)
[2023-08-31] MEDS: oxyCODONE 5 MG Tablet PO ×2 (06:26→19:57)
[2023-08-31] MEDS: Nystatin Powder 15gm Bottle 1 APPLIC TOPICAL ×3 (06:28→20:46)
--- NOTE | 2023-08-31 06:29 | PCM.RX.CS ---
Consult Antibiotic Management Pharmacy has been consulted to manage selected antibiotic: Vancomycin Type of Intervention Type of Consult: Follow-up Labs Labs: Sodium 142 mmol/L (136-145) 08/31/23 05:44 Potassium 3.8 mmol/L (3.5-5.1) 08/31/23 05:44 Chloride 108 mmol/L (98-107) H 08/31/23 05:44 Carbon Dioxide 31.0 mmol/L (21.0-32.0) 08/31/23 05:44 Anion Gap 3 (5-15) L 08/31/23 05:44 BUN 9 mg/dL (7-18) 08/31/23 05:44 Creatinine 0.77 mg/dL (0.55-1.02) 08/31/23 05:44 Est GFR (MDRD) Af Amer 101 mL/min (>60) 08/31/23 05:44 Est GFR (MDRD) Non-Af 83 mL/min (>60) 08/31/23 05:44 BUN/Creatinine Ratio 11.6 RATIO (10-20) 08/31/23 05:44 Glucose 105 mg/dL (74-106) 08/31/23 05:44 Vancomycin Trough 28.7 ug/mL (5.0-15.0) H 08/30/23 11:55 Random Vancomycin 15.0 ug/mL (0.0-15.0) 08/31/23 05:44 Microbiology Microbiology: Microbiology 08/29/23 Unknown Incision/Surgical Site Gram Stain - Final Goal Trough Goal Trough: 15-20 mcg/mL Pharmacy Plan for Drug Dosing Pharmacy Plan for Drug Dosing: Pharmacy Service will continue to monitor and adjust dosing as required. RANDOM LEVEL 15 @ 26 HOURS. START 1GM Q8H AND FOLLOW UP TROUGH PRIOR TO 4TH DOSE Follow-Up Labs Follow-Up Labs: Trough: Vancomycin Date/Time Labs Ordered Labs to be done on [date and time ordered]: 09/01 @ 4114
--- NOTE | 2023-08-31 06:32 | PCM.PN.HOSP ---
Reason for Visit Reason for Visit: Diagnoses Methicillin susceptible Staphylococcus aureus infection as the cause of diseases classified elsewhere (08/28/23) Anemia, unspecified (08/28/23) Morbid (severe) obesity due to excess calories (08/28/23) Gastro-esophageal reflux disease without esophagitis (08/28/23) Cellulitis, unspecified (08/28/23) Rheumatoid arthritis, unspecified (08/28/23) Bacteremia (08/28/23) Body mass index [BMI] 60.0-69.9, adult (08/28/23) Personal history of pulmonary embolism (08/28/23) Subjective Subjective Patient with no acute events overnight per self and per nursing report. She notes pain to the left lower extremity is significantly improved and rates it potentially 4 out of 10 which is her baseline chronic pain level she notes. She denies any drainage to the region and dressing is currently clean. She feels well and denies any black or dark stools following her recent PRBC administration therefore discussed with patient and she has been reinitiated on oral anticoagulant therapy at this time. Patient's primary complaint is alteration of her diet to ADA diet and she is very specifically requesting transition back to a regular diet. Discussed the importance of maintaining appropriate ADA diet for wound healing however she is adamant send at this time will transition back to regular diet but strongly encouraged her appropriate diabetic choices given her propensity for cellulitis and her current infection. Patient denies fevers, chills, nausea, emesis, abdominal pain, chest pain or dyspnea. Objective Data Objective Data Vital Signs: Vital Signs Temp Pulse Resp BP Pulse Ox O2 Del Method O2 Flow Rate 97.6 F L 103 H 18 107/61 97 Nasal Cannula 3 08/31/23 00:40 08/31/23 00:40 08/31/23 00:40 08/31/23 00:40 08/31/23 00:40 08/31/23 04:54 08/31/23 04:54 Oxygen Flow Rate (L/min) 3 Oxygen Delivery Method Nasal Cannula Weight: 364 lb 3.258 oz Body Mass Index (BMI) 58.8 Intake & Output: Intake and Output for Last 24 Hours 08/29/23 08/30/23 08/31/23 23:59 23:59 23:59 Intake Total 3578.75 / 3578.75 2961 / 3361 511 / 511 Output Total 600 / 600 Balance 2978.75 / 2978.75 2961 / 3361 511 / 511 Lab / Micro Data 08/31/23 05:44 08/31/23 05:44 Labs: Laboratory Results - last 24 hr 08/30/23 02:40: Hgb 7.9 L, Hct 28.9 L 08/30/23 06:20: WBC 4.9, RBC 2.73 L, Hgb 6.3 L, Hct 23.5 L, MCV 86.1, MCH 23.1 L, MCHC 26.8 L, RDW Std Deviation 63.7 H, RDW Coeff of Chepe 21.4 H, Plt Count 551 H, MPV 8.7, Immature Gran % (Auto) 0.000, Neut % (Auto) 47.2, Lymph % (Auto) 34.2, [place] % (Auto) 12.3 H, Eos % (Auto) 5.1 H, Baso % (Auto) 1.2 H, Absolute Neuts (auto) 2.3, Absolute Lymphs (auto) 1.69, Nucleated RBC % 0, Platelet Estimate SLT INC, Hypochromasia 2+, Anisocytosis 2+, Sodium 143, Potassium 3.8, Chloride 110 H, Carbon Dioxide 30.0, Anion Gap 3 L, BUN 10, Creatinine 0.75, Estim Creat Clear Calc 141.04, Est GFR (MDRD) Af Amer 104, Est GFR (MDRD) Non-Af 86, BUN/Creatinine Ratio 13.4, Glucose 98, Calcium 8.3 L, Total Bilirubin 0.20, AST 10 L, ALT 8 L, Alkaline Phosphatase 56, Total Protein 5.7 L, Albumin 2.0 L, Globulin 3.7, Albumin/Globulin Ratio 0.5 L 08/30/23 06:42: POC Glucose 98 08/30/23 10:57: POC Glucose 137 H 08/30/23 11:55: Vancomycin Trough 28.7 H 08/30/23 15:18: Blood Type O POSITIVE, Antibody Screen NEGATIVE, Crossmatch See Detail 08/30/23 20:10: Urine Color Yellow, Urine Clarity Clear, Urine pH 6.0, Ur Specific [place] 1.015, Urine Protein 15 H, Urine Glucose (UA) Normal, Urine Ketones Negative, Urine Occult Blood 25 H, Urine Nitrite Negative, Urine Bilirubin Negative, Urine Urobilinogen Normal, Ur Leukocyte Esterase 500 H, Urine RBC 0-5 SEEN, Urine WBC 0-5 SEEN, Ur Squamous Epith Cells 0-5 SEEN, Urine Bacteria 0 SEEN, Urine Mucus 0 SEEN, Urine Trichomonas 0-5 SEEN 08/30/23 22:17: POC Glucose 95 08/31/23 05:44: WBC 6.0, RBC 3.36 L, Hgb 7.9 L, Hct 29.7 L, MCV 88.4, MCH 23.5 L, MCHC 26.6 L, RDW Std Deviation 64.6 H, RDW Coeff of [place]pe 20.4 H, Plt Count 572 H, MPV 8.7, Immature Gran % (Auto) 0.500, Neut % (Auto) 62.4, Lymph % (Auto) 21.0, [place] % (Auto) 12.8 H, Eos % (Auto) 2.5, Baso % (Auto) 0.8, Absolute Neuts (auto) 3.7, Absolute Lymphs (auto) 1.26, Nucleated RBC % 0, Sodium 142, Potassium 3.8, Chloride 108 H, Carbon Dioxide 31.0, Anion Gap 3 L, BUN 9, Creatinine 0.77, Estim Creat Clear Calc 137.16, Est GFR (MDRD) Af Amer 101, Est GFR (MDRD) Non-Af 83, BUN/Creatinine Ratio 11.6, Glucose 105, Calcium 8.7, Total Bilirubin 0.40, AST 12 L, ALT 7 L, Alkaline Phosphatase 64, Total Protein 6.2 L, Albumin 2.2 L, Globulin 4.0, Albumin/Globulin Ratio 0.6 L, Random Vancomycin 15.0 Micro: Microbiology 08/29/23 Unknown Incision/Surgical Site Gram Stain - Final Physical Exam Narrative Physical Examination: General: Awake, alert, oriented x 3 and cooperative, seated upright in the PCU bed, initially walking in the room, seated upright eventually at the bedside, arranging to be transitioned into the chair, using walker. Skin: Normal color, normal turgor, no icterus, no cyanosis except for recent OR with left lower extremity dressing in place, no drainage noted. HEENT: AT/NC, EOMI, PERRLA, MMM. Lungs: Mildly diminished, greater bases, appropriate effort, no rales, ronchi or wheezing. Heart: Regular rate and rhythm; no gallop, rub audible. Abdomen: Soft, morbidly obese, NTTP, no obvious distention, normal BS. Extremities: No cyanosis, no clubbing, mild peripheral distal not markedly pitting edema present, see skin. Neurological: Patient awake, alert, oriented as noted, cognitive function intact; pupils equally reactive to light and accommodation, cranial nerves II-XII grossly normal, moving all 4 extremities with significant improved movement of the left lower extremity given recent OR, strength remains moderately to severely globally decreased. Psychiatric: Affect appears normal, comfortable appearing, no acute evidence of depressive or anxiety feelings. Assessment & Plan Assessment/Plan (1) Cellulitis: PLAN: Plan The patient is a 52 y/o F w/ PMHx: Morbid obesity, Hx VTE (PE, DVT) with MTHFR mutation/Lupus anticoagulant disorder chronically anticoagulated, GERD, Anxiety and Depression, Diabetes mellitus type II with chronic neuropathy/gastroparesis, Chronic back pain on SL buprenorphine, Chronic anemia/Fe deficiency anemia, Hx GI Bleed/chronic blood loss with esophageal varices, KIKI, Rheumatoid arthritis, Chronic sinus tachycardia, CKD stage II per current trending but prior chart reported Hx CHD stage IIIa, recent discharge 07/02/23 following LLL PNA, sepsis and complicated UTI, recent discharge 08/26/23 following treatment for sepsis, cellulitis R hand/LLE with MSSA bacteremia, GI bleed, Opiate withdrawal who represents as direct admission from OSH ED on 08/28/23 secondary to difficulties caring for herself at home secondary to lack of support that she had expected to have and then onset over the past 24 hours increasing pain to the LLE with erythema recurrence. #1. Recent Acute Sepsis secondary to Acute RUE Hand and LL Extremity Cellulitis with associated MSSA bacteremia w/ presentation now with Acute LLE Recurrent Cellulitis and Concurrent Concern LLE Hematoma, possibly infected: Recent presentation as noted with MSSA bacteremia, blood culture 08/18 and 08/19 with Staph aureus, PICC line placed, infectious disease consulted and discharged on IV cefazolin q8h with weekly labs with home health, upon admission to PCU, transitioned back to IV Vanc and IV zosyn upon admit-->ID de-escalated to Vanc/Ancef 08/29/23. LLE US w/ findings c/w cellulitis in the region of clinical concern with questionable deep fluid collection possibly seroma, resolving hematoma or abscess measuring 5.5 x 5[address] Hernandez orthopedic surgeon consulted with 08/29/23 OR Incision and drainage left lower leg hematoma. Wound RN consulted. Continue dressing changes per Ortho and Wound RN discretion. Wound Cx pending w/ gram stain with some GPC. Bld Cx still pending. Will continue patient home chronic pain management with additional as needed breakthrough regimen, bowel regimen as needed, PT/OT/case management consulted for discharge planning with SNF needs at discharge. Orthopedic surgery recommendations include dry sterile dressing changes daily until day #5 then leave open to air if no drainage with recommendation for continued ky wrap's, amenable with Eliquis restart, upon discharge follow-up 2 weeks from her operative date with intention at that time for stitch removal. 08/31/23 Eliquis restart given Hgb stable s/p PRBC administration. #2. Recent Acute GI Bleed with Acute on Chronic anemia/iron deficiency anemia w/ Recurrent Acute on Chronic anemia 08/30/23: Recent admission with OSH ED CBC w/ hemoglobin 8.7, baseline noted previously also 8, decreased during presentation down to 6.9 requiring 2 unit PRBC, GI consulted consulted with EGD unremarkable, colonoscopy unfortunately with poor prep with evidence of diverticulosis, administered IV Fe sucrose 08/19/2023, started on oral ferrous sulfate every other day dosing, restarted Xarelto 08/25/23 per GI allowance. 08/26/23 discharged on oral supplementation and with referral to hematology. 08/29/23 Hgb 7.3-->08/30/23 Hgb 6.3, s/p recent OR with as noted hematoma, possibly related, administered 2 u PRBC, 08/31/23 Hgb 7.9 and again baseline 7-8. 08/31/23 Eliquis restart given Hgb stable baseline s/p PRBC administration. #3. Chronic back pain with chronic pain syndrome: Recent presentation with acute withdrawal suspected, will maintain on chronic buprenorphine therapy with additional breakthrough regimen given acute presentation as noted #1, positional changes, offloading, PT/OT/case management consulted for discharge planning. #4 Recent Acute kidney injury on CKD stage II per current trending but previous chart reported history noted CKD stage IIIa: Recent admission OSH ED BUN/creatinine 39/2.02, prior baseline creatinine noted to be primarily 0.7-0.9. Currently admission 08/26/2023 BUN/creatinine 14/0.67-->08/31/23 BUN/Cr 9/0.77. #5. Anxiety and depression: Patient on SNRI duloxetine with an SSRI Luvox which are contraindicated together, upon admission continued only on duloxetine, continued additionally on rexulti, buspar, wellbutrin home regimen, encourage early follow-up with her psychiatrist/psychologist and continued outpatient counseling. #6. Rheumatoid arthritis: We will continue patient home low-dose prednisone therapy however clinically worsens low threshold to transition to stress dose steroids given acute presentation as noted. #7. Morbid Obesity: Weight loss and lifestyle changes encouraged. #8. History VTE with MTHFR mutation/Lupus anticoagulant disorder: Held xarelto for OR as noted. 08/30/23 administered PRBC as noted, Hgb stable overnight, 08/31/23 resumed xarelto. #9. Diabetes mellitus type II: Hold oral home regimen, transitioned from OR back to the floor on a regular diet therefore 08/31/2023 to transition back to an ADA diet but patient is extremely adamant and following lengthy discussions will transition back to a regular diet but encouraged her to make appropriate diabetic food choices for her general health but also for wound healing, accu checks w/ ISS. #10. GERD with history GI bleed, esophageal varices: We will continue patient home PPI and sucralfate regimen. #11. Restless leg syndrome: We will continue patient on pramipexole regimen. #12. KIKI: CPAP nightly. #13. DVT prophylaxis: SCDs, 08/31/23 resumed xarelto. Charges/Coding Visit Charges Inpatient E&M: 30125 Subs Hosp L2
[2023-08-31 06:58] LABS: Anisocytosis RARE
[2023-08-31 07:02] LABS: Bedside Glucose 92 mg/dL (74-106)
[2023-08-31] MEDS: Vancomycin IV 1,000 MG/200 ML BAG 200 MG IV ×3 (08:13→22:47)
[2023-08-31] MEDS: 0.9% Normal Saline (1000mL) 1,000 ML 75 ML IV ×2 (08:13→22:47)
[2023-08-31 08:16] VITALS: BP 115/67; PULSE 94; RESP 16; TEMP 36.4; O2SAT 96
[2023-08-31] MEDS: buPROPion (XL) 300 MG TABLET.XL PO (08:25)
[2023-08-31] MEDS: Atenolol 50 MG Tablet PO (08:25)
[2023-08-31] MEDS: predniSONE 5 MG Tablet 10 MG PO (08:25)
[2023-08-31] MEDS: Pantoprazole Sodium 40 MG Tablet PO ×2 (08:26→20:45)
[2023-08-31] MEDS: busPIRone 5 MG Tablet 10 MG PO (08:26)
[2023-08-31] MEDS: DULoxetine Hcl 30 MG Capsule PO (08:26)
[2023-08-31] MEDS: Buprenorphine HCl 2 MG TAB.SUBL SL ×2 (08:33→20:46)
[2023-08-31] MEDS: Ferrous Sulfate 325 MG Tablet PO (12:28)
[2023-08-31 14:48] LABS: Bedside Glucose 127 mg/dL (74-106)
[2023-08-31 15:00] VITALS: BP 129/71; PULSE 85; RESP 16; TEMP 36.8; O2SAT 95
[2023-08-31] MEDS: Rivaroxaban 20 MG Tablet PO (16:46)
[2023-08-31 18:35] LABS: Hemoglobin A1c 5.6 % (3.8-5.6)
[2023-08-31 20:21] LABS: Bedside Glucose 103 mg/dL (74-106)
[2023-08-31] MEDS: busPIRone 5 MG Tablet 20 MG PO (20:45)
[2023-08-31] MEDS: QUEtiapine 25 MG Tablet 75 MG PO (20:45)
[2023-08-31] MEDS: tiZANidine HCl 2 MG Tablet 4 MG PO (20:45)
[2023-08-31 21:00] VITALS: BP 130/72; PULSE 96; RESP 18; TEMP 36.8; O2SAT 95
[2023-09-01 03:00] VITALS: BP 110/56; PULSE 86; RESP 18; TEMP 36.4; O2SAT 95
[2023-09-01 03:43] VITALS: O2SAT 98
[2023-09-01 04:50] VITALS: BMI 59.1
[2023-09-01] MEDS: Pramipexole Di-HCl 0.25 MG Tablet 0.75 MG PO ×3 (05:25→20:42)
[2023-09-01] MEDS: Nystatin Powder 15gm Bottle 1 APPLIC TOPICAL ×3 (05:26→20:43)
[2023-09-01] MEDS: Sucralfate 1 GM Tablet PO ×4 (05:26→20:42)
[2023-09-01] MEDS: Cefazolin 2 GM in 0.9% Normal Saline (100mL Bag) 100 ML IV ×3 (05:27→21:11)
[2023-09-01] MEDS: Vancomycin Trough/Random Due 1 LAB MC (05:28)
[2023-09-01 06:12] LABS: Absolute Lymphocyte Count 1.62 X10^3/uL (0.83-4.51); Absolute Neutrophil Count 2.6 X10^3/uL (2.0-7.7); Basophil# 0.04 X10^3/uL; Basophil% 0.8 % (0-1); Eosinophils% 3.8 % (0-5); Hematocrit 29.1 % (37-47); Lymphocyte # 1.62 X10^3/ul (0.83-4.51); Lymphocyte % 31.1 % (19-41); Mean Corp Hgb Conc 27.5 g/dL (32-36); Mean Corpuscular Volume 87.1 fL (81-99); Monocyte# 0.77 X10^3/uL; Monocyte% 14.8 % (0-10); NRBC Flagged by Analyzer 0 % (0-5); Neutrophil # 2.57 X10^3/uL (2.7-7.7); Neutrophil % 49.3 % (47-70); POSITIVE MORPHOLOGY YES; Platelet Count 616 K/mm3 (150-450); RBC Distribution Width CV 20.8 % (11.6-14.6); RBC Distribution Width SD 65.1 fl (35.1-43.9); Red Blood Count 3.34 M/mm3 (4.2-5.4); White Blood Count 5.2 K/mm3 (4.4-11.0)
[2023-09-01 06:16] LABS: Differential Indicated SCAN CRITERIA MET
--- NOTE | 2023-09-01 06:16 | PN.HOSP_ITS ---
Reason for Visit Reason for Visit: Diagnoses Methicillin susceptible Staphylococcus aureus infection as the cause of diseases classified elsewhere (08/28/23) Anemia, unspecified (08/28/23) Morbid (severe) obesity due to excess calories (08/28/23) Gastro-esophageal reflux disease without esophagitis (08/28/23) Cellulitis, unspecified (08/28/23) Rheumatoid arthritis, unspecified (08/28/23) Bacteremia (08/28/23) Body mass index [BMI] 60.0-69.9, adult (08/28/23) Personal history of pulmonary embolism (08/28/23) Subjective Subjective Patient with no acute events overnight per self and per nursing report except evening prior did note some mild vaginal discharge. Hemoglobin A1c obtained this morning and noted to be 5.6% thus de-escalated per patient request off of insulin sliding scale and Accu-Cheks as she does have previous diabetic history with hyperglycemia upon her initial presentation likely because of infection. Discussed that she is only 0.1% away from again being prediabetic and encouraged her to continue healthy diet and lifestyle especially given her ongoing issues with recent illness. She notes pain is near subsided to the left lower extremity and is tolerable, 3-4 out of 10 in severity. She is ambulating her room with greater ease. She is eager for skilled discharge but is awaiting prior authorization and understands this. Patient denies fevers, chills, nausea, emesis, abdominal pain, chest pain or dyspnea. Objective Data Objective Data Vital Signs: Vital Signs Temp Pulse Resp BP Pulse Ox O2 Del Method O2 Flow Rate 97.5 F L 86 18 110/56 L 98 Nasal Cannula 3 09/01/23 03:00 09/01/23 03:00 09/01/23 03:00 09/01/23 03:00 09/01/23 03:43 09/01/23 03:43 09/01/23 03:43 Oxygen Flow Rate (L/min) 3 Oxygen Delivery Method Nasal Cannula Weight: 365 lb 15.477 oz Body Mass Index (BMI) 59.1 Intake & Output: Intake and Output for Last 24 Hours 08/30/23 08/31/23 09/01/23 23:59 23:59 23:59 Intake Total 2961 / 3361 3981 / 4461 1040 / 1040 Balance 2961 / 3361 3981 / 4461 1040 / 1040 Lab / Micro Data 09/01/23 05:38 09/01/23 05:38 Labs: Laboratory Results - last 24 hr 08/31/23 05:44: Anisocytosis RARE, Sodium 142, Potassium 3.8, Chloride 108 H, Carbon Dioxide 31.0, Anion Gap 3 L, BUN 9, Creatinine 0.77, Estim Creat Clear Calc 137.16, Est GFR (MDRD) Af Amer 101, Est GFR (MDRD) Non-Af 83, BUN/Creatinine Ratio 11.6, Glucose 105, Hemoglobin A1c 5.6, Calcium 8.7, Total Bilirubin 0.40, AST 12 L, ALT 7 L, Alkaline Phosphatase 64, Total Protein 6.2 L, Albumin 2.2 L, Globulin 4.0, Albumin/Globulin Ratio 0.6 L 08/31/23 06:44: POC Glucose 92 08/31/23 12:03: POC Glucose 127 H 08/31/23 16:42: POC Glucose 103 09/01/23 05:38: WBC 5.2, RBC 3.34 L, Hgb 8.0 L, Hct 29.1 L, MCV 87.1, MCH 24.0 L , MCHC 27.5 L, RDW Std Deviation 65.1 H, RDW Coeff of [place]pe 20.8 H, Plt Count 616 H, MPV 9.0, Immature Gran % (Auto) 0.200, Neut % (Auto) 49.3, Lymph % (Auto) 31.1, [place] % (Auto) 14.8 H, Eos % (Auto) 3.8, Baso % (Auto) 0.8, Absolute Neuts (auto) 2.6, Absolute Lymphs (auto) 1.62, Nucleated RBC % 0 Micro: Microbiology 08/30/23 19:05 Other - Vaginal Gram Stain - Final 08/28/23 20:34 Blood Culture (Wb) - Right Forearm Blood Culture - Preliminary No growth in 48 hours. 08/28/23 20:27 Blood Culture (Wb) - Anticubital Right Blood Culture - Preliminary No growth in 48 hours. 08/29/23 Unknown Incision/Surgical Site Gram Stain - Final 08/29/23 Unknown Incision/Surgical Site Wound Culture - Final No growth aerobically. Physical Exam Narrative Physical Examination: General: Awake, alert, oriented x 3 and cooperative, seated upright in the PCU bedside chair, no acute distress, notes pain controlled. Skin: Normal color, normal turgor, no icterus, no cyanosis except for recent OR with left lower extremity dressing in place, no drainage noted. HEENT: AT/NC, EOMI, PERRLA, MMM. Lungs: Mildly diminished, greater bases, appropriate effort, no rales, ronchi or wheezing. Heart: Regular rate and rhythm; no gallop, rub audible. Abdomen: Soft, morbidly obese, NTTP, no obvious distention, normal BS. Extremities: No cyanosis, no clubbing, mild peripheral distal not markedly pitting edema present, see skin. Neurological: Patient awake, alert, oriented as noted, cognitive function intact; pupils equally reactive to light and accommodation, cranial nerves II- XII grossly normal, moving all 4 extremities with significant improved, some debility left lower extremity given the OR but improving daily, strength remains moderately to severely globally decreased. Psychiatric: Affect appears normal, no acute evidence of depressive or anxiety feelings. Assessment & Plan Assessment/Plan (1) Cellulitis: PLAN: Plan The patient is a 52 y/o F w/ PMHx: Morbid obesity, Hx VTE (PE, DVT) with MTHFR mutation/Lupus anticoagulant disorder chronically anticoagulated, GERD, Anxiety and Depression, Diabetes mellitus type II with chronic neuropathy/gastroparesis, Chronic back pain on SL buprenorphine, Chronic anemia/Fe deficiency anemia, Hx GI Bleed/chronic blood loss with esophageal varices, KIKI, Rheumatoid arthritis, Chronic sinus tachycardia, CKD stage II per current trending but prior chart reported Hx CHD stage IIIa, recent discharge 07/02/23 following LLL PNA, sepsis and complicated UTI, recent discharge 08/26/23 following treatment for sepsis, cellulitis R hand/LLE with MSSA bacteremia, GI bleed, Opiate withdrawal who represents as direct admission from OSH ED on 08/28/23 secondary to difficulties caring for herself at home secondary to lack of support that she had expected to have and then onset over the past 24 hours increasing pain to the LLE with erythema recurrence. #1. Recent Acute Sepsis secondary to Acute RUE Hand and LL Extremity Cellulitis with associated MSSA bacteremia w/ presentation now with Acute LLE Recurrent Cellulitis and Concurrent Concern LLE Hematoma, possibly infected: Recent p resentation as noted with MSSA bacteremia, blood culture 08/18 and 08/19 with Staph aureus, PICC line placed, infectious disease consulted and discharged on IV cefazolin q8h with weekly labs with home health, upon admission to PCU, transitioned back to IV Vanc and IV zosyn upon admit-->ID de-escalated to Vanc/Ancef 08/29/23. LLE US w/ findings c/w cellulitis in the region of clinical concern with questionable deep fluid collection possibly seroma, resolving hematoma or abscess measuring 5.5 x 5[address] Hernandez orthopedic surgeon consulted with 08/29/23 OR Incision and drainage left lower leg hematoma. Wound RN following. Continue dressing changes per Ortho and Wound RN discretion. Wound Cx pending w/ gram stain with some GPC. Bld Cx still pending. Will continue patient home chronic pain management with additional as needed breakthrough regimen, bowel regimen as needed, PT/OT/case management consulted for discharge planning with SNF needs at discharge. Orthopedic surgery recommendations include dry sterile dressing changes daily until day #5 then leave open to air if no drainage with recommendation for continued ky wrap's, amenable with Eliquis restart, upon discharge follow-up 2 weeks from her operative date with intention at that time for stitch removal. 08/31/23 Eliquis restarted given Hgb stable s/p PRBC administration. PT/OT consulted, awaiting prior authorization for skilled facility placement. #2. Recent Acute GI Bleed with Acute on Chronic anemia/iron deficiency anemia w/ Recurrent Acute on Chronic anemia 08/30/23: Recent admission with OSH ED CBC w/ hemoglobin 8.7, baseline noted previously also 8, decreased during presentation down to 6.9 requiring 2 unit PRBC, GI consulted consulted with EGD unremarkable, colonoscopy unfortunately with poor prep with evidence of diverticulosis, administered IV Fe sucrose 08/19/2023, started on oral ferrous sulfate every other day dosing, restarted Xarelto 08/25/23 per GI allowance. 08/26/23 discharged on oral supplementation and with referral to hematology. 08/29/23 Hgb 7.3-->08/30/23 Hgb 6.3, s/p recent OR with as noted hematoma, possibly related, administered 2 u PRBC, 08/31/23 Hgb 7.9 and again baseline 7-8. 08/31/23 Eliquis restarted given Hgb stable baseline s/p PRBC administration. 09/01/2023 hemoglobin 8.0, stable. #3. Chronic back pain with chronic pain syndrome: Recent presentation with acute withdrawal suspected, will maintain on chronic buprenorphine therapy with additional breakthrough regimen given acute presentation as noted #1, positional changes, offloading, PT/OT/case management consulted for discharge planning. #4 Recent Acute kidney injury on CKD stage II per current trending but previous chart reported history noted CKD stage IIIa: Recent admission OSH ED BUN/creatinine 39/2.02, prior baseline creatinine noted to be primarily 0.7-0.9. Currently admission 08/26/2023 BUN/creatinine 14/0.67--> 09/01/2023 BUN/creatinine 9/0.81. #5. Vaginal discharge: Patient with reported vaginal discharge, vaginal culture obtained with no evidence of any growth and urinalysis with no obvious evidence of UTI. Recommended patient avoid scented wipes as this certainly could be contributing. Currently no obvious infectious source, encourage continued vaginal region hygiene. #6. Anxiety and depression: Patient on SNRI duloxetine with an SSRI Luvox which are contraindicated together, upon admission continued only on duloxetine, continued additionally on rexulti, buspar, wellbutrin home regimen, encourage early follow-up with her psychiatrist/psychologist and continued outpatient counseling. #7. Rheumatoid arthritis: We will continue patient home low-dose prednisone therapy however clinically worsens low threshold to transition to stress dose steroids given acute presentation as noted. #8. Morbid Obesity: Weight loss and lifestyle changes encouraged. #9. History VTE with MTHFR mutation/Lupus anticoagulant disorder: Held xarelto for OR as noted. 08/30/23 administered PRBC as noted, Hgb stable overnight, 08/31/23 resumed xarelto, follow-up 09/01/2023 hemoglobin 8.0, stable. #10. History of Diabetes mellitus type II: HgbA1c 5.6%, allowance to transition to regular diet per patient strong preference, discontinued accu checks with ISS. Educated her about being again near prediabetic status. Strongly encouraged given her underlying history, morbid obesity and propensity for cellulitis to continue diet and lifestyle modifications. #11. GERD with history GI bleed, esophageal varices: We will continue patient home PPI and sucralfate regimen. #12. Restless leg syndrome: We will continue patient on pramipexole regimen. #13. KIKI: CPAP nightly. #14. DVT prophylaxis: SCDs, 08/31/23 resumed xarelto, follow-up 09/01/2023 hemoglobin 8.0, stable. Charges/Coding Visit Charges Inpatient E&M: 64134 Subs Hosp L2
[2023-09-01 06:28] LABS: Vancomycin, Trough Level 25.1 ug/mL (5.0-15.0)
[2023-09-01 06:29] LABS: ALB/GLOB Ratio 0.5 RATIO (0.9-2.4); AST(SGOT) 14 U/L (15-37); Alanine Aminotransfer ALT/SGPT 7 U/L (13-56); Albumin, Serum 2.2 g/dL (3.2-5.0); Alkaline Phosphatase 66 U/L (45-117); Anion Gap 3 (5-15); BUN 9 mg/dL (7-18); BUN/Creat Ratio 11.1 RATIO (10-20); Calcium,Total 8.7 mg/dL (8.5-10.1); Chloride 109 mmol/L (98-107); Creatinine, Serum 0.81 mg/dL (0.55-1.02); EST Glomerular Filtration Rate 78 mL/min (>60); Est Glom Filt Rate - Afr Amer 95 mL/min (>60); Globulin 4.2 g/dL (2.2-4.2); Glucose 92 mg/dL (74-106); Potassium 3.8 mmol/L (3.5-5.1); Protein, Total 6.4 g/dL (6.4-8.2); Sodium Level 142 mmol/L (136-145)
--- NOTE | 2023-09-01 06:38 | PCM.RX.CS ---
Consult Antibiotic Management Pharmacy has been consulted to manage selected antibiotic: Vancomycin Type of Intervention Type of Consult: Follow-up Labs Labs: Sodium 142 mmol/L (136-145) 09/01/23 05:38 Potassium 3.8 mmol/L (3.5-5.1) 09/01/23 05:38 Chloride 109 mmol/L (98-107) H 09/01/23 05:38 Carbon Dioxide 30.0 mmol/L (21.0-32.0) 09/01/23 05:38 Anion Gap 3 (5-15) L 09/01/23 05:38 BUN 9 mg/dL (7-18) 09/01/23 05:38 Creatinine 0.81 mg/dL (0.55-1.02) 09/01/23 05:38 Est GFR (MDRD) Af Amer 95 mL/min (>60) 09/01/23 05:38 Est GFR (MDRD) Non-Af 78 mL/min (>60) 09/01/23 05:38 BUN/Creatinine Ratio 11.1 RATIO (10-20) 09/01/23 05:38 Glucose 92 mg/dL (74-106) 09/01/23 05:38 Vancomycin Trough 25.1 ug/mL (5.0-15.0) H 09/01/23 05:38 Random Vancomycin 15.0 ug/mL (0.0-15.0) 08/31/23 05:44 Microbiology Microbiology: Microbiology 08/30/23 19:05 Other - Vaginal Gram Stain - Final 08/28/23 20:34 Blood Culture (Wb) - Right Forearm Blood Culture - Preliminary No growth in 48 hours. 08/28/23 20:27 Blood Culture (Wb) - Anticubital Right Blood Culture - Preliminary No growth in 48 hours. 08/29/23 Unknown Incision/Surgical Site Gram Stain - Final 08/29/23 Unknown Incision/Surgical Site Wound Culture - Final No growth aerobically. Goal Trough Goal Trough: 15-20 mcg/mL Pharmacy Plan for Drug Dosing Pharmacy Plan for Drug Dosing: Pharmacy Service will continue to monitor and adjust dosing as required. TROUGH 25.1 @ 7 HOURS. HOLD DOSE AND DRAW RANDOM LEVEL IN 12 HOURS Follow-Up Labs Follow-Up Labs: Trough: Vancomycin Date/Time Labs Ordered Labs to be done on [date and time ordered]: 09/01 @ 1800 RANDOM
[2023-09-01 08:09] LABS: Anisocytosis 2+; Differential Comment SCANNED
[2023-09-01 08:45] VITALS: BP 125/56; PULSE 95; RESP 16; TEMP 36.4; O2SAT 93
[2023-09-01] MEDS: DULoxetine Hcl 30 MG Capsule PO (08:48)
[2023-09-01] MEDS: buPROPion (XL) 300 MG TABLET.XL PO (08:48)
[2023-09-01] MEDS: Pantoprazole Sodium 40 MG Tablet PO ×2 (08:48→20:42)
[2023-09-01] MEDS: predniSONE 5 MG Tablet 10 MG PO (08:49)
[2023-09-01] MEDS: Atenolol 50 MG Tablet PO (08:49)
[2023-09-01] MEDS: busPIRone 5 MG Tablet 10 MG PO (08:49)
[2023-09-01] MEDS: Buprenorphine HCl 2 MG TAB.SUBL SL ×2 (08:57→20:42)
[2023-09-01] MEDS: 0.9% Normal Saline (1000mL) 1,000 ML 75 ML IV (11:53)
[2023-09-01 15:50] VITALS: BP 147/72; PULSE 87; RESP 16; TEMP 36.6; O2SAT 97
[2023-09-01] MEDS: Rivaroxaban 20 MG Tablet PO (16:00)
[2023-09-01 19:02] LABS: Vancomycin, Random Level 15.2 ug/mL (0.0-15.0)
--- NOTE | 2023-09-01 19:13 | PHA.PHARE_ITS ---
Consult Antibiotic Management Pharmacy has been consulted to manage selected antibiotic: Vancomycin Type of Intervention Type of Consult: Follow-up Labs Labs: Sodium 142 mmol/L (136-145) 09/01/23 05:38 Potassium 3.8 mmol/L (3.5-5.1) 09/01/23 05:38 Chloride 109 mmol/L (98-107) H 09/01/23 05:38 Carbon Dioxide 30.0 mmol/L (21.0-32.0) 09/01/23 05:38 Anion Gap 3 (5-15) L 09/01/23 05:38 BUN 9 mg/dL (7-18) 09/01/23 05:38 Creatinine 0.81 mg/dL (0.55-1.02) 09/01/23 05:38 Est GFR (MDRD) Af Amer 95 mL/min (>60) 09/01/23 05:38 Est GFR (MDRD) Non-Af 78 mL/min (>60) 09/01/23 05:38 BUN/Creatinine Ratio 11.1 RATIO (10-20) 09/01/23 05:38 Glucose 92 mg/dL (74-106) 09/01/23 05:38 Vancomycin Trough 25.1 ug/mL (5.0-15.0) H 09/01/23 05:38 Random Vancomycin 15.2 ug/mL (0.0-15.0) H 09/01/23 18:00 Microbiology Microbiology: Microbiology 08/29/23 Unknown Incision/Surgical Site Gram Stain - Final 08/29/23 Unknown Incision/Surgical Site Wound Culture - Final No growth aerobically. 08/29/23 Unknown Incision/Surgical Site Anaerobic Culture - Preliminary No growth in 48 hours. 08/30/23 19:05 Other - Vaginal Gram Stain - Final 08/30/23 19:05 Other - Vaginal Genital Culture - Preliminary Presumptive C albicans 08/30/23 20:10 Urine, Clean Catch Urine Culture - Final GNR lactose business development professional 08/28/23 20:34 Blood Culture (Wb) - Right Forearm Blood Culture - Preliminary No growth in 48 hours. 08/28/23 20:27 Blood Culture (Wb) - Anticubital Right Blood Culture - Preliminary No growth in 48 hours. Goal Trough Goal Trough: 15-20 mcg/mL Pharmacy Plan for Drug Dosing Pharmacy Plan for Drug Dosing: Pharmacy Service will continue to monitor and adjust dosing as required. RANDOM LEVEL 15.2 @ 12 HOURS. START 1 GM Q12H AND FOLLOW UP TROUGH PRIOR TO 4TH DOSE Follow-Up Labs Follow-Up Labs: Trough: Vancomycin Date/Time Labs Ordered Labs to be done on [date and time ordered]: 09/03 @ 1700
[2023-09-01] MEDS: Vancomycin IV 1,000 MG/200 ML BAG 200 MG IV (19:48)
[2023-09-01] MEDS: Miconazole-7 Nitrate Cream 1 APPLIC VAGINAL (20:41)
[2023-09-01] MEDS: tiZANidine HCl 2 MG Tablet 4 MG PO (20:41)
[2023-09-01] MEDS: QUEtiapine 25 MG Tablet 75 MG PO (20:41)
[2023-09-01] MEDS: busPIRone 5 MG Tablet 20 MG PO (20:41)
[2023-09-01] MEDS: oxyCODONE 5 MG Tablet PO (20:42)
[2023-09-01 21:50] VITALS: BP 150/77; PULSE 94; RESP 16; TEMP 36.6; O2SAT 94
[2023-09-02 01:36] VITALS: BMI 61.9
[2023-09-02] MEDS: 0.9% Normal Saline (1000mL) 1,000 ML 75 ML IV ×2 (01:36→16:30)
--- NOTE | 2023-09-02 03:10 | CPS ---
pt on sleep lab cpap machine 13 cpap with nasal mask on room air.
[2023-09-02 03:50] VITALS: BP 135/78; PULSE 79; RESP 18; TEMP 36.6; O2SAT 95
[2023-09-02] MEDS: oxyCODONE 5 MG Tablet PO ×2 (03:59→12:21)
[2023-09-02] MEDS: Cefazolin 2 GM in 0.9% Normal Saline (100mL Bag) 100 ML IV (05:11)
[2023-09-02] MEDS: Pramipexole Di-HCl 0.25 MG Tablet 0.75 MG PO ×3 (05:11→20:42)
[2023-09-02] MEDS: Nystatin Powder 15gm Bottle 1 APPLIC TOPICAL ×3 (05:12→20:43)
[2023-09-02] MEDS: Sucralfate 1 GM Tablet PO ×4 (05:16→20:42)
[2023-09-02 07:46] LABS: Absolute Neutrophil Count 3.7 X10^3/uL (2.0-7.7); Basophil# 0.05 X10^3/uL; Basophil% 0.8 % (0-1); Eosinophil# 0.24 X10^3/uL; Eosinophils% 3.9 % (0-5); Hematocrit 27.8 % (37-47); Hemoglobin 7.8 g/dL (12.0-15.0); Lymphocyte % 22.5 % (19-41); Mean Corp Hgb Conc 28.1 g/dL (32-36); Mean Corpuscular Hgb 24.6 pg (27.0-32.0); Mean Corpuscular Volume 87.7 fL (81-99); Mean Platelet Vol. 8.9 fl (6.2-12.0); Monocyte# 0.84 X10^3/uL; Monocyte% 13.5 % (0-10); NRBC Flagged by Analyzer 0 % (0-5); Neutrophil # 3.69 X10^3/uL (2.7-7.7); Neutrophil % 59.1 % (47-70); POSITIVE MORPHOLOGY YES; Platelet Count 536 K/mm3 (150-450); RBC Distribution Width CV 21.2 % (11.6-14.6); RBC Distribution Width SD 66.5 fl (35.1-43.9); Red Blood Count 3.17 M/mm3 (4.2-5.4); White Blood Count 6.2 K/mm3 (4.4-11.0)
[2023-09-02 07:52] LABS: Differential Indicated SCAN CRITERIA MET
[2023-09-02] MEDS: Vancomycin IV 1,000 MG/200 ML BAG 200 MG IV (07:56)
[2023-09-02 08:09] LABS: ALB/GLOB Ratio 0.6 RATIO (0.9-2.4); AST(SGOT) 15 U/L (15-37); Alanine Aminotransfer ALT/SGPT < 6 U/L (13-56); Albumin, Serum 2.2 g/dL (3.2-5.0); Alkaline Phosphatase 70 U/L (45-117); Anion Gap 4 (5-15); BUN 9 mg/dL (7-18); BUN/Creat Ratio 10.7 RATIO (10-20); Calcium,Total 8.8 mg/dL (8.5-10.1); Chloride 109 mmol/L (98-107); Creatinine, Serum 0.84 mg/dL (0.55-1.02); EST Glomerular Filtration Rate 75 mL/min (>60); Est Glom Filt Rate - Afr Amer 91 mL/min (>60); Estimated Creatinine Clearance 130.18 ml/min; Glucose 87 mg/dL (74-106); Potassium 3.6 mmol/L (3.5-5.1); Protein, Total 6.2 g/dL (6.4-8.2); Sodium Level 143 mmol/L (136-145)
[2023-09-02 08:15] LABS: Anisocytosis 2+
[2023-09-02] MEDS: 0.9% Saline Lock 10 ML Syringe IV (08:39)
[2023-09-02] MEDS: Ondansetron 4 MG/2 ML Vial IV ×2 (08:39→18:57)
--- NOTE | 2023-09-02 09:30 | CASEMGMT ---
Discharge Planning Updates sent to [facility] Asked for precert to be submitted. Cynthia Marcelo, Discharge Planning Asst.
[2023-09-02 09:45] VITALS: BP 143/82; PULSE 107; RESP 18; TEMP 36.3; O2SAT 94
[2023-09-02] MEDS: DULoxetine Hcl 30 MG Capsule PO (10:08)
[2023-09-02] MEDS: predniSONE 5 MG Tablet 10 MG PO (10:08)
[2023-09-02] MEDS: buPROPion (XL) 300 MG TABLET.XL PO (10:09)
[2023-09-02] MEDS: Pantoprazole Sodium 40 MG Tablet PO ×2 (10:09→20:42)
[2023-09-02] MEDS: Atenolol 50 MG Tablet PO (10:09)
[2023-09-02] MEDS: Buprenorphine HCl 2 MG TAB.SUBL SL ×2 (10:43→20:50)
[2023-09-02] MEDS: busPIRone 5 MG Tablet 10 MG PO (12:19)
[2023-09-02] MEDS: Ferrous Sulfate 325 MG Tablet PO (12:19)
--- NOTE | 2023-09-02 13:38 | PCM.PN.ID ---
Physical Exam Narrative Feeling better, leg wrapped, no fever Const alert and no apparent distress General Appearance: cooperative Resp normal air movement and clear to auscultation bilaterally Cardio regular rate and regular rhythm GI soft to palpation, non-tender and non-distended Skin no rashes or lesions noted ID ID: Route of nutrition/ use of supplements: [] Nutritional Intake: [] IV Site: [] Kamara Catheter: [] Assessment & Plan Assessment/Plan (1) MSSA bacteremia: PLAN: On cefazolin as outpt. New L foy fluid collection, I&D done 08/29/[address] Hernandez. On empiric vanc/ancef. Surg cx neg. Will stop abx, ok for picc removal at discharge. Will follow as needed
--- NOTE | 2023-09-02 15:37 | CASEMGMT ---
KAREY spoke with patient and let her know we are just waiting on insurance to registered nurse ambulatory her for [facility]. Nimo Llanos UROLOGY SURGEON TAMI
[2023-09-02 16:30] VITALS: BP 142/67; PULSE 89; RESP 16; TEMP 36.6; O2SAT 98
[2023-09-02] MEDS: Rivaroxaban 20 MG Tablet PO (16:30)
--- NOTE | 2023-09-02 18:43 | PN.HOSP_ITS ---
Reason for Visit Reason for Visit: Diagnoses Methicillin susceptible Staphylococcus aureus infection as the cause of diseases classified elsewhere (08/28/23) Anemia, unspecified (08/28/23) Morbid (severe) obesity due to excess calories (08/28/23) Gastro-esophageal reflux disease without esophagitis (08/28/23) Cellulitis, unspecified (08/28/23) Rheumatoid arthritis, unspecified (08/28/23) Bacteremia (08/28/23) Body mass index [BMI] 60.0-69.9, adult (08/28/23) Personal history of pulmonary embolism (08/28/23) Subjective Subjective Patient was seen and examined today, she states she was seen by infectious diseases today who stopped her antibiotics. We are currently awaiting certification for placement in a jail facility for short-term rehab services. Objective Data Objective Data Vital Signs: Vital Signs Temp Pulse Resp BP Pulse Ox O2 Del Method O2 Flow Rate 97.8 F 89 16 142/67 H 98 Room Air 3 09/02/23 16:30 09/02/23 16:30 09/02/23 16:30 09/02/23 16:30 09/02/23 16:30 09/02/23 16:30 09/01/23 03:43 Oxygen Flow Rate (L/min) 3 Oxygen Delivery Method Room Air Weight: 174.2 kg Body Mass Index (BMI) 61.9 Intake & Output: Intake and Output for Last 24 Hours 08/31/23 09/01/23 09/02/23 23:59 23:59 23:59 Intake Total 3981 / 4461 3052.5 / 3412.5 3950 / 3950 Balance 3981 / 4461 3052.5 / 3412.5 3950 / 3950 Lab / Micro Data 09/02/23 07:05 09/02/23 07:05 Labs: Laboratory Results - last 24 hr 09/01/23 18:00: Random Vancomycin 15.2 H 09/02/23 07:05: WBC 6.2, RBC 3.17 L, Hgb 7.8 L, Hct 27.8 L, MCV 87.7, MCH 24.6 L , MCHC 28.1 L, RDW Std Deviation 66.5 H, RDW Coeff of Chepe 21.2 H, Plt Count 536 H, MPV 8.9, Immature Gran % (Auto) 0.200, Neut % (Auto) 59.1, Lymph % (Auto) 22.5, Patrick % (Auto) 13.5 H, Eos % (Auto) 3.9, Baso % (Auto) 0.8, Absolute Neuts (auto) 3.7, Absolute Lymphs (auto) 1.40, Nucleated RBC % 0, Anisocytosis 2+, Sodium 143, Potassium 3.6, Chloride 109 H, Carbon Dioxide 30.0, Anion Gap 4 L, BUN 9, Creatinine 0.84, Estim Creat Clear Calc 130.18, Est GFR (MDRD) Af Amer 91, Est GFR (MDRD) Non-Af 75, BUN/Creatinine Ratio 10.7, Glucose 87, Calcium 8.8, Total Bilirubin 0.20, AST 15, ALT < 6 L, Alkaline Phosphatase 70, Total Protein 6.2 L, Albumin 2.2 L, Globulin 4.0, Albumin/Globulin Ratio 0.6 L Micro: Microbiology 08/30/23 19:05 Other - Vaginal Gram Stain - Final 08/30/23 19:05 Other - Vaginal Genital Culture - Preliminary Presumptive C albicans 08/29/23 Unknown Incision/Surgical Site Gram Stain - Final 08/29/23 Unknown Incision/Surgical Site Wound Culture - Final No growth aerobically. 08/29/23 Unknown Incision/Surgical Site Anaerobic Culture - Preliminary No growth in 48 hours. 08/30/23 20:10 Urine, Clean Catch Urine Culture - Final GNR lactose application systems architect 08/28/23 20:34 Blood Culture (Wb) - Right Forearm Blood Culture - Preliminary No growth in 48 hours. 08/28/23 20:27 Blood Culture (Wb) - Anticubital Right Blood Culture - Preliminary No growth in 48 hours. Physical Exam Const alert, oriented x3 and no apparent distress Constitutional Narrative: Patient is morbidly obese General Appearance: cooperative, well kempt and well developed Orientation / Consciousness: awake, oriented to person, oriented to place and oriented to time HEENT normocephalic and moist oral mucous membranes Eyes PERRL, EOMs intact bilaterally and conjunctivae normal Neck supple, no JVD, thyroid normal and no carotid bruits General: trachea midline Resp normal respiratory effort, no retractions, no use of accessory muscles and clear to auscultation bilaterally Auscultation: Negative for rales, rhonchi or wheezes Cardio regular rate, regular rhythm, S1 normal heart sound, S2 normal heart sound, no murmurs, no rub and no gallops GI normal to inspection, nondistended, normoactive bowel sounds, soft to palpation, non-tender and non-distended Extremity Extremity Narrative: Both lower extremities are wrapped with Clifford wrap and surgical dressing, this was not removed for examination of the area Neuro oriented x3, CN's II-XII intact bilaterally, moves all extremities, no focal motor deficits and no sensory deficits noted Sensorium / Orientation: awake and alert Speech: speech normal Psych affect normal Assessment & Plan Assessment/Plan (1) Compartment syndrome of left lower extremity: PLAN: Plan 1. Left lower leg hematoma-status postsurgical evacuation by orthopedic surgery, there was a concern initially that this area may be infected but infectious diseases has stopped her antibiotic coverage at this time. There was no growth noted from the wound culture. #2 generalized debility-patient will need short-term placement in a jail facility for rehab services, we are currently awaiting approval from her insurance #3 chronic low back pain, maintain present medications #4 chronic anxiety and depression-patient remains on her current medications #5 history of lupus anticoagulant-patient is on Xarelto #6 chronic anemia-requiring blood transfusion-etiology unclear, patient remains on oral iron supplementation #7 morbid obesity-complicates care, medical course, recovery, and prognosis Total clinical time spent by myself addressing the patient's medical issues, reviewing all of her data, and collaborating with patient's care team: 35 minutes Charges/Coding Visit Charges Inpatient E&M: 86243 Subs Hosp L2
[2023-09-02] MEDS: QUEtiapine 25 MG Tablet 75 MG PO (20:42)
[2023-09-02] MEDS: busPIRone 5 MG Tablet 20 MG PO (20:43)
[2023-09-02] MEDS: tiZANidine HCl 2 MG Tablet 4 MG PO (20:43)
[2023-09-02] MEDS: Miconazole-7 Nitrate Cream 1 APPLIC VAGINAL (20:44)
[2023-09-02 22:30] VITALS: BP 142/71; PULSE 95; RESP 18; TEMP 36.8; O2SAT 93
[2023-09-02 22:42] VITALS: O2SAT 98
[2023-09-03 01:40] VITALS: BMI 61.7
--- NOTE | 2023-09-03 02:19 | CPS ---
Patient placed on sleep lab PAP machine for the night
[2023-09-03] MEDS: Sucralfate 1 GM Tablet PO ×3 (05:54→16:14)
[2023-09-03] MEDS: Pramipexole Di-HCl 0.25 MG Tablet 0.75 MG PO ×2 (05:54→14:09)
[2023-09-03] MEDS: Nystatin Powder 15gm Bottle 1 APPLIC TOPICAL ×2 (05:55→14:09)
[2023-09-03] MEDS: 0.9% Normal Saline (1000mL) 1,000 ML 75 ML IV (05:55)
[2023-09-03 06:00] VITALS: BP 142/69; PULSE 96; RESP 18; TEMP 36.4; O2SAT 93
[2023-09-03 07:27] LABS: Absolute Lymphocyte Count 1.62 X10^3/uL (0.83-4.51); Absolute Neutrophil Count 2.8 X10^3/uL (2.0-7.7); Basophil# 0.04 X10^3/uL; Basophil% 0.7 % (0-1); Eosinophil# 0.25 X10^3/uL; Eosinophils% 4.6 % (0-5); Lymphocyte # 1.62 X10^3/ul (0.83-4.51); Lymphocyte % 29.7 % (19-41); Mean Corp Hgb Conc 28.6 g/dL (32-36); Mean Corpuscular Hgb 24.7 pg (27.0-32.0); Mean Corpuscular Volume 86.4 fL (81-99); Mean Platelet Vol. 8.8 fl (6.2-12.0); Monocyte% 12.8 % (0-10); NRBC Flagged by Analyzer 0 % (0-5); Neutrophil # 2.82 X10^3/uL (2.7-7.7); Neutrophil % 51.8 % (47-70); POSITIVE MORPHOLOGY YES; Platelet Count 561 K/mm3 (150-450); RBC Distribution Width CV 21.4 % (11.6-14.6); RBC Distribution Width SD 67.1 fl (35.1-43.9); Red Blood Count 3.24 M/mm3 (4.2-5.4); White Blood Count 5.5 K/mm3 (4.4-11.0)
[2023-09-03 07:50] LABS: Differential Indicated SCAN CRITERIA MET
[2023-09-03 08:10] LABS: ALB/GLOB Ratio 0.5 RATIO (0.9-2.4); AST(SGOT) 13 U/L (15-37); Alanine Aminotransfer ALT/SGPT < 6 U/L (13-56); Albumin, Serum 2.2 g/dL (3.2-5.0); Alkaline Phosphatase 70 U/L (45-117); Anion Gap 6 (5-15); BUN 7 mg/dL (7-18); BUN/Creat Ratio 9.2 RATIO (10-20); Calcium,Total 9.4 mg/dL (8.5-10.1); Chloride 109 mmol/L (98-107); Creatinine, Serum 0.76 mg/dL (0.55-1.02); EST Glomerular Filtration Rate 85 mL/min (>60); Est Glom Filt Rate - Afr Amer 103 mL/min (>60); Estimated Creatinine Clearance 143.39 ml/min; Globulin 4.2 g/dL (2.2-4.2); Glucose 78 mg/dL (74-106); Potassium 3.6 mmol/L (3.5-5.1); Protein, Total 6.4 g/dL (6.4-8.2); Sodium Level 144 mmol/L (136-145)
[2023-09-03 08:45] VITALS: BP 133/81; PULSE 92; RESP 18; TEMP 36.7; O2SAT 94
[2023-09-03] MEDS: busPIRone 5 MG Tablet 10 MG PO (08:46)
[2023-09-03] MEDS: buPROPion (XL) 300 MG TABLET.XL PO (08:46)
[2023-09-03] MEDS: Buprenorphine HCl 2 MG TAB.SUBL SL (08:46)
[2023-09-03] MEDS: predniSONE 5 MG Tablet 10 MG PO (08:47)
[2023-09-03] MEDS: Atenolol 50 MG Tablet PO (08:47)
[2023-09-03] MEDS: DULoxetine Hcl 30 MG Capsule PO (08:47)
[2023-09-03] MEDS: Pantoprazole Sodium 40 MG Tablet PO (08:47)
[2023-09-03 09:47] LABS: Anisocytosis 2+
--- NOTE | 2023-09-03 11:24 | CASEMGMT ---
Patient was approved for [facility]. SW notified physician and will notify patient. Nimo GARRETT
--- NOTE | 2023-09-03 11:29 | CASEMGMT ---
Addendum entered by Nimo Llanos 09/03/23 13:49: SW met with patient. Patient apologized for getting upset. SW assured patient she does not need to apologize. She was just trying to process the information. Patient is going to try going to [facility]. SW told patient if she is unhappy she can ask [facility] to send her to another facility. Patient thanked SW. Plan: d/c to [facility] under skilled level of care. Nimo GARRETT Addendum entered by Nimo Llanos 09/03/23 12:39: [facility] does have a bariatric bed for patient. However, they do not have private rooms. SW let patient now [facility] does not have private rooms. Patient was upset with this information. Patient said she is very private and shy. Patient told SW she needs to think about this for an hour. Nimo GARRETT Original Note: SW let patient know she was approved. Patient asked if she will have a private room. SW told patient SW will ask and let her know. Patient said she will have her own cpap. KAREY sent a message to [facility] via [facility] asking if patient will have a private room and also asking if they have a bariatric bed for patient. Await responses. Plan[facility]. Nimo GARRETT
--- NOTE | 2023-09-03 12:12 | PCM.TXEXTCAR ---
Diet Diet Order/Speech Therapy: 08/31/23 09:34 Diet: Regular - General Is pt able to select menu?: Yes Routine Orders/Code Status Routine Lab Work: CBC (In 1 week) Code Status: Full Code Wound(s) under queenie breast: Wound Type: Skin Tear left lower leg: Wound Type: small surgical incision s/p I&D Dressing Change: dry dressing Therapies Weight Bearing: Full weight bearing Physical Therapy: Eval and Treat Occupational Therapy: Eval and Treat Problem/Diagnosis (1) Compartment syndrome of left lower extremity: Status: Inactive Code(s): T79.A22A - Traumatic compartment syndrome of left lower extremity, initial encounter (2) Rheumatoid arthritis: Status: Acute Code(s): M06.9 - Rheumatoid arthritis, unspecified Plan 1. Left lower leg hematoma-status postsurgical evacuation by orthopedic surgery, there was a concern initially that this area may be infected but infectious diseases has stopped her antibiotic coverage at this time. There was no growth noted from the wound culture. #2 generalized debility-patient will need short-term placement in a senior care facility for rehab services, we are currently awaiting approval from her insurance #3 chronic low back pain, maintain present medications #4 chronic anxiety and depression-patient remains on her current medications #5 history of lupus anticoagulant-patient is on Xarelto #6 chronic anemia-requiring blood transfusion-etiology unclear, patient remains on oral iron supplementation #7 morbid obesity-complicates care, medical course, recovery, and prognosis #8 rheumatoid arthritis Total clinical time spent by myself addressing the patient's medical issues, reviewing all of her data, and collaborating with patient's care team: 35 minutes Allergies/Procedures Done in Hospital Allergies adhesive tape Adverse Reaction (Verified 06/29/23 09:22) Rash Procedures: - (Incision and drainage of hematoma on the left leg) Type of Care/Length of Stay Estimated LOS: Convalescent Care Less Than 30 days Type of Care Needed: Skilled Rehab Potential: Good Prognosis: Good Additional Orders/Day of Discharge H&P will serve as current which was dated: 08/28/23 Day of Discharge: 09/03/23 Dietary and Speech Recommendations Dietitian Recommendations/Changes: recommend regular/sodium restricted diet as medically indicated; will monitor cellulitis/wounds, PO intake and add ONS as indicated; CHO controlled diet if hyperglycemia evident. Discharge Plan Admission Admit Date/Time: 08/28/23 18:15 Primary Reason for Your Visit: LLE Cellulitis, Hematoma Attending Provider: Mumtaz Nash Primary Care Provider: Tarah Dubon Consulting Providers: Maryam Santos; Gavin Benito; Kavin Hernandez; Berna Cisneros Instructions Additional Instructions / Restrictions: DISCHARGE REVIEW/PLAN OF CARE: #1. Recent Right Hand and Left Lower Extremity Cellulitis with Infectious concurrently in the Blood now presenting with Acute Left Lower Extremity Recurrent Cellulitis and Hematoma, possibly infected: --Prior recent presentation with MSSA bacteremia with PICC at that time with ancef planned through 09/02/23 of note. --US w/ findings c/w cellulitis in the region of clinical concern with questionable deep fluid collection possibly seroma, resolving hematoma or abscess measuring 5.5 x 5.0 x 1.7 cm. --Dr. Hernandez 08/29/23 OR Incision and drainage left lower leg hematoma. --Orthopedic surgery recommendations: dry sterile dressing changes daily until day #5 (09/03/23) then leave open to air if no drainage with recommendation for continued snug ky wraps toe to above knee overlapping with no skin showing, follow-up 2 weeks from her operative date with intention at that time for stitch removal. #2. Recent Acute GI Bleed with Acute on Chronic anemia/iron deficiency anemia w/ Recurrent Acute on Chronic anemia 08/30/23: --Recent admission with evidence of GI bleed with blood in the stool, administered PRBC during admission, GI consulted with unremarkable upper scope but poor prep with lower. At discharge maintained on iron supplementation, given IV iron inpatient and planned follow-up for re-evaluation and future repeat colonoscopy attempt. Also, had arranged follow-up with Hematology for her chronic iron deficiency anemia. Please keep these previously recommended/arranged visits. --08/29/23 your hemoglobin dropped from 7.3->6.3 after OR, administered 2 units of blood with repeat hemoglobin in the 7-8 range with clearance per Orthopedic surgery for Eliquis restart. #3. History of Diabetes mellitus type II: --HgbA1c 5.6%, allowance to transition to regular diet per patient strong preference, discontinued accu checks with [facility]. --Encourage continued diet and lifestyle modifications given her underlying history, morbid obesity and propensity. Discharge Orders/Prescriptions Prescriptions: New miconazole nitrate 2 % Cream 1 applic vaginal QHS Qty: 0 0RF Rx Instructions: use for 4 days starting 09/03/23 then discontinue nystatin [Nyamyc] 100,000 unit/gram Powder 1 applic topical TID Qty: 0 0RF Protocol: *Topical Application Instructions APPLICATION INSTRUCTIONS: apply to skin folds oxycodone 5 mg Tablet 5 mg PO Q4H PRN PRN (Reason: Pain Score 4-10) 2 Days Qty: 10 0RF sennosides-docusate sodium [Stool Softener-Stimulant Laxat] 8.6-50 mg Tablet 2 tab PO BID PRN PRN (Reason: Constipation) Qty: 0 0RF Continued Actemra 162 mg/0.9 mL syringe 162 mg subcut .weekly bupropion HCl 300 MG tablet extended release 24 hr 300 mg PO DAILY ropinirole 2 MG tablet extended release 24 hr 2 mg PO QHS Xarelto 20 mg tablet 20 mg PO DAILY Hold Instructions: Resume on 08/25/23. Patient Comments: TAKE 1 TABLET BY MOUTH EVERY DAY WITH SUPPER prednisone 5 mg tablet 10 mg PO DAILY Patient Comments: TAKE 2 TABLETS BY MOUTH EVERY DAY. NEEDS OFFICE VISIT fluvoxamine 100 mg tablet 100 mg PO DAILY buspirone 10 mg tablet 10 mg PO DAILY Patient Comments: TAKE 1 TABLET BY MOUTH EVERY MORNING AND TAKE 2 TABLETS BY MOUTH AT BEDTIME buspirone 10 mg tablet 20 mg PO QHS Patient Comments: TAKE 1 TABLET BY MOUTH EVERY MORNING AND TAKE 2 TABLETS BY MOUTH AT BEDTIME atenolol 50 mg tablet 50 mg PO DAILY Patient Comments: TAKE 1 TABLET BY MOUTH EVERY DAY Rexulti 1 mg tablet 1 mg PO DAILY Patient Comments: TAKE 1 TABLET BY MOUTH EVERY DAY Probiotic 1 ea PO/SL DAILY biotin 1 ea PO/SL DAILY pantoprazole 40 mg Tablet,Delayed Release (Dr/Ec) 40 mg PO BID Qty: 60 2RF sucralfate 1 gram tablet 1 g PO Q6H Qty: 120 1RF quetiapine 25 mg tablet 25 mg PO .at bedtime duloxetine 30 mg capsule,delayed release(DR/EC) 30 mg PO DAILY Ozempic 0.25 mg or 0.5 mg (2 mg/3 mL) pen injector 0.5 mg SUBCUT QWEEK triamcinolone acetonide 0.025 % cream 1 applic topical BID PRN quetiapine 50 mg tablet 50 mg PO QHS tizanidine 4 mg tablet 4 mg PO QHS pramipexole 0.75 mg tablet 0.75 mg PO TID acetaminophen 325 mg Tablet 1,000 mg PO Q8H PRN PRN (Reason: Fever, pain 1-04/30) Qty: 0 0RF ferrous sulfate [FeroSul] 325 mg (65 mg iron) Tablet 325 mg PO QODAY@1200 Qty: 0 0RF buprenorphine HCl [Belbuca] 150 mcg film 150 mcg BUCCAL Q12H 3 Days Qty: 6 0RF promethazine 25 mg tablet 25 mg PO Q6H PRN (Reason: nausea and vomiting) Qty: 120 3RF Discontinued cefazolin 2 gram recon soln 2 g IV Q8H 10 Days Rx Instructions: dx: MSSA bacteremia. Stop date 09/02/23. weekly bmp and cbc while on cefazolin. Fax to [phone]. Referrals / Follow Up: Tarah Dubon DO [Primary Care Provider] - (Follow-up within 3-5 days of discharge.) Kavin Hernandez DO [Med Staff - Active Staff] - (Follow-up in 2 weeks from 08/29/23 for LLE re-evaluation and stitch removal in the office.) Michael Mcgill DO [Med Staff - Active Staff] - (09/11/23 2:30 pm (Please follow-up in 2-4 weeks to re-consider outpatient c-scope set-up as inpatient prep unsatisfactory)) Leeanna Lazaro MEDICAL DERMATOLOGIST, MEDICAL DERMATOLOGIST-C [Med Staff - Adv Practice Prof] - ( Within 2 Weeks (Please follow-up re: iron deficiency anemia. May see Oncology/Hematology MEDICAL DERMATOLOGIST)) Disposition Disposition (needs filled in before D/C Order can be placed): Group Home Facility
--- NOTE | 2023-09-03 14:19 | PCM.DC.SUM ---
Providers Date of Admission: 08/28/23 Date of Discharge: 09/03/23 Primary Care Physician: Dr. Tarah Dubon, DO Consultations 08/28/23 19:39 Consult: Infectious Disease Routine Consulting Provider: Gavin Benito Reason for Consult: worsening of LLE cellulitis, d/c'd 2 days ago, on cefaz EMERGENT Consult: No MD Notified: Yes Date Notified: 08/29/23 Time Notified: 06:53 Method of Notification: Text 08/28/23 22:38 Consult: Orthopedics Routine Consulting Provider: Kavin Hernandez Reason for Consult: left lateral foy abscess? EMERGENT Consult: No Notified: Yes Date Notified: 08/28/23 Time Notified: 22:38 Method of Notification: Verbal 08/30/23 09:12 Consult: Onc/Wound/hospitality manager Routine Comment: Reason For Visit: RECURRENT CELLULITIS Diagnosis Discharge Diagnosis (1) Compartment syndrome of left lower extremity: Status: Inactive Code(s): T79.A22A - Traumatic compartment syndrome of left lower extremity, initial encounter (2) Rheumatoid arthritis: Status: Acute Code(s): M06.9 - Rheumatoid arthritis, unspecified Plan 1. Left lower leg hematoma-status postsurgical evacuation by orthopedic surgery, there was a concern initially that this area may be infected but infectious diseases has stopped her antibiotic coverage at this time. There was no growth noted from the wound culture. #2 generalized debility-patient will need short-term placement in a [facility] facility for rehab services, we are currently awaiting approval from her insurance #3 chronic low back pain, maintain present medications #4 chronic anxiety and depression-patient remains on her current medications #5 history of lupus anticoagulant-patient is on Xarelto #6 chronic anemia-requiring blood transfusion-etiology unclear, patient remains on oral iron supplementation #7 morbid obesity-complicates care, medical course, recovery, and prognosis #8 rheumatoid arthritis Total clinical time spent by myself addressing the patient's medical issues, reviewing all of her data, and collaborating with patient's care team: 35 minutes Medications at Discharge Home Medications bupropion HCl 300 mg 24 hr tablet, extended release 300 mg PO DAILY mental health 08/25/18 ropinirole 2 mg tablet,extended release 24 hr 2 mg PO QHS restless legs 08/25/18 rivaroxaban 20 mg tablet (Xarelto) 20 mg PO DAILY blood thinner 06/01/22 Probiotic 1 ea PO/SL DAILY IMMUNE HEALTH 09/21/22 atenolol 50 mg tablet 50 mg PO DAILY HEART 09/21/22 biotin 1 ea PO/SL DAILY SUPPLEMENT 09/21/22 brexpiprazole 1 mg tablet (Rexulti) 1 mg PO DAILY MENTAL HEALTH 09/21/22 buspirone 10 mg tablet 10 mg PO DAILY ANXIETY 09/21/22 buspirone 10 mg tablet 20 mg PO QHS ANXIETY 09/21/22 fluvoxamine 100 mg tablet 100 mg PO DAILY MENTAL HEALTH 09/21/22 prednisone 5 mg tablet 10 mg PO DAILY RA 09/21/22 pantoprazole 40 mg tablet,delayed release 40 mg PO BID reflux #60 tabs 10/26/22 sucralfate 1 gram tablet 1 g PO Q6H reflux #120 tabs 10/26/22 tocilizumab 162 mg/0.9 mL subcutaneous syringe (Actemra) 162 mg subcut .weekly immunosuppressant 03/18/23 promethazine 25 mg tablet 25 mg PO Q6H PRN nausea and vomiting #120 tabs 04/11/23 duloxetine 30 mg capsule,delayed release 30 mg PO DAILY mental health 06/29/23 quetiapine 50 mg tablet 50 mg PO QHS sleep 06/29/23 semaglutide 0.25 mg or 0.5 mg (2 mg/3 mL) subcutaneous pen injector (Ozempic) 0.5 mg subcut QWEEK diabetes 06/29/23 tizanidine 4 mg tablet 4 mg PO QHS spasms 06/29/23 triamcinolone acetonide 0.025 % topical cream 1 applic topical BID PRN celiac rash 06/29/23 pramipexole 0.75 mg tablet 0.75 mg PO TID restless leg 08/17/23 acetaminophen 325 mg tablet 1,000 mg (3.0769 x 325 mg) PO Q8H PRN PRN Fever, pain 1-04/30 #0 tabs 08/23/23 buprenorphine HCl 150 mcg buccal film (Belbuca) 150 mcg buccal Q12H pain relief 3 days #6 ea 08/23/23 ferrous sulfate 325 mg (65 mg iron) tablet (FeroSul) 325 mg PO QODAY@1200 anemia #0 tabs 08/23/23 quetiapine 25 mg tablet 25 mg PO .at bedtime sleep 08/28/23 miconazole nitrate 2 % vaginal cream 1 applic vaginal QHS #0 grams 09/03/23 nystatin 100,000 unit/gram topical powder (Nyamyc) 1 applic topical TID #0 grams 09/03/23 oxycodone 5 mg tablet 5 mg PO Q4H PRN PRN Pain Score 4-10 2 days #10 tabs 09/03/23 sennosides 8.6 mg-docusate sodium 50 mg tablet (Stool Softener-Stimulant Laxative) 2 tab PO BID PRN PRN Constipation #0 tabs 09/03/23 Hospital Course Operations - (Drainage of leg hematoma) Procedures None Summary of Care Provided Minutes Spent on Discharge: 31 Hospital Course: This 52-year-old white female was directly admitted to [facility] from emergency room at [facility] due to concerns of cellulitis in the left lower extremity with possible necrotizing fasciitis. Patient was admitted to PCU and seen in consultation by orthopedic surgery, patient was given IV antibiotics and seen by infectious diseases, she underwent drainage of a hematoma over the left lower leg, cultures showed however that it was not infected. Patient was seen by PT and OT and felt to be appropriate for short-term skilled services at a nursing facility. On 07/03/2024, patient was seen and examined: On examination she appeared in good health and spirits, she does not appear to be in any distress. Vital signs as documented. Skin warm and dry and without overt rashes. Neck without JVD, thyroid appears normal, trachea is midline, neck is supple. Lungs clear, normal air movement was noted. Heart exam notable for regular rhythm, normal sounds and absence of murmurs, rubs or gallops. Abdomen unremarkable and without evidence of organomegaly, masses, or abdominal aortic enlargement, bowel sounds are present in all 4 quadrants, no abdominal tenderness was noted. Extremities nonedematous, no cyanosis was noted, no clubbing was noted. Neuro: Cranial nerves II through XII are grossly intact, no focal motor deficits were noted, sensation to light touch and pinprick is intact, motor exam 5/5 throughout. Psych: Patient is alert and oriented x3, she does not appear anxious or depressed, she does not appear agitated. Patient was discharged to a [facility] facility on 09/03/2023 in stable condition Weight / BMI Weight Weight: 173.3 kg Body Mass Index (BMI) 61.7 ABG / Lab / Microbiology Data 09/03/23 06:25 09/03/23 06:25 Laboratory: Laboratory Results - last 24 hr 09/03/23 06:25: WBC 5.5, RBC 3.24 L, Hgb 8.0 L, Hct 28.0 L, MCV 86.4, MCH 24.7 L, MCHC 28.6 L, RDW Std Deviation 67.1 H, RDW Coeff of Chepe 21.4 H, Plt Count 561 H, MPV 8.8, Immature Gran % (Auto) 0.400, Neut % (Auto) 51.8, Lymph % (Auto) 29.7, Phillips % (Auto) 12.8 H, Eos % (Auto) 4.6, Baso % (Auto) 0.7, Absolute Neuts (auto) 2.8, Absolute Lymphs (auto) 1.62, Nucleated RBC % 0, Anisocytosis 2+, Sodium 144, Potassium 3.6, Chloride 109 H, Carbon Dioxide 29.0, Anion Gap 6, BUN 7, Creatinine 0.76, Estim Creat Clear Calc 143.39, Est GFR (MDRD) Af Amer 103, Est GFR (MDRD) Non-Af 85, BUN/Creatinine Ratio 9.2 L, Glucose 78, Calcium 9.4, Total Bilirubin 0.40, AST 13 L, ALT < 6 L, Alkaline Phosphatase 70, Total Protein 6.4, Albumin 2.2 L, Globulin 4.2, Albumin/Globulin Ratio 0.5 L Microbiology: Microbiology 08/30/23 19:05 Other - Vaginal Gram Stain - Final 08/30/23 19:05 Other - Vaginal Genital Culture - Final Presumptive C albicans 08/28/23 20:34 Blood Culture (Wb) - Right Forearm Blood Culture - Final No growth in 5 days. 08/28/23 20:27 Blood Culture (Wb) - Anticubital Right Blood Culture - Final No growth in 5 days. 08/29/23 Unknown Incision/Surgical Site Gram Stain - Final 08/29/23 Unknown Incision/Surgical Site Wound Culture - Final No growth aerobically. 08/29/23 Unknown Incision/Surgical Site Anaerobic Culture - Preliminary No growth in 48 hours. 08/30/23 20:10 Urine, Clean Catch Urine Culture - Final GNR lactose process engineer Meaningful Use Info Meaningful Use Diagnoses (Choose all that apply): None applicable Discharge Plan Admission Admit Date/Time: 08/28/23 18:15 Primary Reason for Your Visit: LLE Cellulitis, Hematoma Attending Provider: Mumtaz Nash Primary Care Provider: Tarah Dubon Consulting Providers: Maryam Santos; Gavin Benito; Kavin Hernandez; Berna Cisneros Instructions Additional Instructions / Restrictions: DISCHARGE REVIEW/PLAN OF CARE: #1. Recent Right Hand and Left Lower Extremity Cellulitis with Infectious concurrently in the Blood now presenting with Acute Left Lower Extremity Recurrent Cellulitis and Hematoma, possibly infected: --Prior recent presentation with MSSA bacteremia with PICC at that time with ancef planned through 09/02/23 of note. --US w/ findings c/w cellulitis in the region of clinical concern with questionable deep fluid collection possibly seroma, resolving hematoma or abscess measuring 5.5 x 5.0 x 1.7 cm. --Dr. Henrandez 08/29/23 OR Incision and drainage left lower leg hematoma. --Orthopedic surgery recommendations: dry sterile dressing changes daily until day #5 (09/03/23) then leave open to air if no drainage with recommendation for continued snug ky wraps toe to above knee overlapping with no skin showing, follow-up 2 weeks from her operative date with intention at that time for stitch removal. #2. Recent Acute GI Bleed with Acute on Chronic anemia/iron deficiency anemia w/ Recurrent Acute on Chronic anemia 08/30/23: --Recent admission with evidence of GI bleed with blood in the stool, administered PRBC during admission, GI consulted with unremarkable upper scope but poor prep with lower. At discharge maintained on iron supplementation, given IV iron inpatient and planned follow-up for re-evaluation and future repeat colonoscopy attempt. Also, had arranged follow-up with Hematology for her chronic iron deficiency anemia. Please keep these previously recommended/arranged visits. --08/29/23 your hemoglobin dropped from 7.3->6.3 after OR, administered 2 units of blood with repeat hemoglobin in the 7-8 range with clearance per Orthopedic surgery for Eliquis restart. #3. History of Diabetes mellitus type II: --HgbA1c 5.6%, allowance to transition to regular diet per patient strong preference, discontinued accu checks with [facility]. --Encourage continued diet and lifestyle modifications given her underlying history, morbid obesity and propensity. Discharge Orders/Prescriptions Prescriptions: New miconazole nitrate 2 % Cream 1 applic vaginal QHS Qty: 0 0RF Rx Instructions: use for 4 days starting 09/03/23 then discontinue nystatin [Nyamyc] 100,000 unit/gram Powder 1 applic topical TID Qty: 0 0RF Protocol: *Topical Application Instructions APPLICATION INSTRUCTIONS: apply to skin folds oxycodone 5 mg Tablet 5 mg PO Q4H PRN PRN (Reason: Pain Score 4-10) 2 Days Qty: 10 0RF sennosides-docusate sodium [Stool Softener-Stimulant Laxat] 8.6-50 mg Tablet 2 tab PO BID PRN PRN (Reason: Constipation) Qty: 0 0RF Continued Actemra 162 mg/0.9 mL syringe 162 mg subcut .weekly bupropion HCl 300 MG tablet extended release 24 hr 300 mg PO DAILY ropinirole 2 MG tablet extended release 24 hr 2 mg PO QHS Xarelto 20 mg tablet 20 mg PO DAILY Hold Instructions: Resume on 08/25/23. Patient Comments: TAKE 1 TABLET BY MOUTH EVERY DAY WITH SUPPER prednisone 5 mg tablet 10 mg PO DAILY Patient Comments: TAKE 2 TABLETS BY MOUTH EVERY DAY. NEEDS OFFICE VISIT fluvoxamine 100 mg tablet 100 mg PO DAILY buspirone 10 mg tablet 10 mg PO DAILY Patient Comments: TAKE 1 TABLET BY MOUTH EVERY MORNING AND TAKE 2 TABLETS BY MOUTH AT BEDTIME buspirone 10 mg tablet 20 mg PO QHS Patient Comments: TAKE 1 TABLET BY MOUTH EVERY MORNING AND TAKE 2 TABLETS BY MOUTH AT BEDTIME atenolol 50 mg tablet 50 mg PO DAILY Patient Comments: TAKE 1 TABLET BY MOUTH EVERY DAY Rexulti 1 mg tablet 1 mg PO DAILY Patient Comments: TAKE 1 TABLET BY MOUTH EVERY DAY Probiotic 1 ea PO/SL DAILY biotin 1 ea PO/SL DAILY pantoprazole 40 mg Tablet,Delayed Release (Dr/Ec) 40 mg PO BID Qty: 60 2RF sucralfate 1 gram tablet 1 g PO Q6H Qty: 120 1RF quetiapine 25 mg tablet 25 mg PO .at bedtime duloxetine 30 mg capsule,delayed release(DR/EC) 30 mg PO DAILY Ozempic 0.25 mg or 0.5 mg (2 mg/3 mL) pen injector 0.5 mg SUBCUT QWEEK triamcinolone acetonide 0.025 % cream 1 applic topical BID PRN quetiapine 50 mg tablet 50 mg PO QHS tizanidine 4 mg tablet 4 mg PO QHS pramipexole 0.75 mg tablet 0.75 mg PO TID acetaminophen 325 mg Tablet 1,000 mg PO Q8H PRN PRN (Reason: Fever, pain 1-04/30) Qty: 0 0RF ferrous sulfate [FeroSul] 325 mg (65 mg iron) Tablet 325 mg PO QODAY@1200 Qty: 0 0RF buprenorphine HCl [Belbuca] 150 mcg film 150 mcg BUCCAL Q12H 3 Days Qty: 6 0RF promethazine 25 mg tablet 25 mg PO Q6H PRN (Reason: nausea and vomiting) Qty: 120 3RF Discontinued cefazolin 2 gram recon soln 2 g IV Q8H 10 Days Rx Instructions: dx: MSSA bacteremia. Stop date 09/02/23. weekly bmp and cbc while on cefazolin. Fax to [phone]. Referrals / Follow Up: Tarah Dubon DO [Primary Care Provider] - (Follow-up within 3-5 days of discharge.) Kavin Hernandez DO [Med Staff - Active Staff] - (Follow-up in 2 weeks from 08/29/23 for LLE re-evaluation and stitch removal in the office.) Michael Mcgill DO [Med Staff - Active Staff] - (09/11/23 2:30 pm (Please follow-up in 2-4 weeks to re-consider outpatient c-scope set-up as inpatient prep unsatisfactory)) Leeanna Lazaro OUTBOUND TELEMARKETING REPRESENTATIVE, OUTBOUND TELEMARKETING REPRESENTATIVE-C [Med Staff - Adv Practice Prof] - ( Within 2 Weeks (Please follow-up re: iron deficiency anemia. May see Oncology/Hematology OUTBOUND TELEMARKETING REPRESENTATIVE)) Disposition Disposition (needs filled in before D/C Order can be placed): [facility] Charges/Coding Visit Charges Inpatient E&M: 58872 Disch Hosp >30min
--- NOTE | 2023-09-03 14:29 | CASEMGMT ---
Patient is ready for discharge to [facility]. SW completed a 7000 in [employer] system. Plan: d/c to [facility] under skilled level of care on a convalescent stay. Physicians will transport patient via wheelchair van. Nimo GARRETT
--- NOTE | 2023-09-03 14:34 | CASEMGMT ---
Discharge Planning Dicharge orders, signed med list, and transport time sent to [facility]. [facility] ambulance will transport patient by cot at 4:30. Wheelchair transport was requested but was not available. Nursing, SW, and patient updated. Cynthia Marcelo, Discharge Planning Asst.
--- NOTE | 2023-09-03 15:06 | PHA.DC_ITS ---
Pharmacy [facility] Reconciliation Pharmacy Service has performed discharge medication reconciliation for this patient. The patient's discharge medication list was reviewed for discrepancies and discrepancies were resolved. Medications at Discharge Home Medications bupropion HCl 300 mg 24 hr tablet, extended release 300 mg PO DAILY mental health 08/25/18 ropinirole 2 mg tablet,extended release 24 hr 2 mg PO QHS restless legs 08/25/18 rivaroxaban 20 mg tablet (Xarelto) 20 mg PO DAILY blood thinner 06/01/22 Probiotic 1 ea PO/SL DAILY IMMUNE HEALTH 09/21/22 atenolol 50 mg tablet 50 mg PO DAILY HEART 09/21/22 biotin 1 ea PO/SL DAILY SUPPLEMENT 09/21/22 brexpiprazole 1 mg tablet (Rexulti) 1 mg PO DAILY MENTAL HEALTH 09/21/22 buspirone 10 mg tablet 10 mg PO DAILY ANXIETY 09/21/22 buspirone 10 mg tablet 20 mg PO QHS ANXIETY 09/21/22 fluvoxamine 100 mg tablet 100 mg PO DAILY MENTAL HEALTH 09/21/22 prednisone 5 mg tablet 10 mg PO DAILY RA 09/21/22 pantoprazole 40 mg tablet,delayed release 40 mg PO BID reflux #60 tabs 10/26/22 sucralfate 1 gram tablet 1 g PO Q6H reflux #120 tabs 10/26/22 tocilizumab 162 mg/0.9 mL subcutaneous syringe (Actemra) 162 mg subcut .weekly immunosuppressant 03/18/23 promethazine 25 mg tablet 25 mg PO Q6H PRN nausea and vomiting #120 tabs 04/11/23 duloxetine 30 mg capsule,delayed release 30 mg PO DAILY mental health 06/29/23 quetiapine 50 mg tablet 50 mg PO QHS sleep 06/29/23 semaglutide 0.25 mg or 0.5 mg (2 mg/3 mL) subcutaneous pen injector (Ozempic) 0.5 mg subcut QWEEK diabetes 06/29/23 tizanidine 4 mg tablet 4 mg PO QHS spasms 06/29/23 triamcinolone acetonide 0.025 % topical cream 1 applic topical BID PRN celiac rash 06/29/23 pramipexole 0.75 mg tablet 0.75 mg PO TID restless leg 08/17/23 acetaminophen 325 mg tablet 1,000 mg (3.0769 x 325 mg) PO Q8H PRN PRN Fever, pain 1-10 #0 tabs 08/23/23 buprenorphine HCl 150 mcg buccal film (Belbuca) 150 mcg buccal Q12H pain relief 3 days #6 ea 08/23/23 ferrous sulfate 325 mg (65 mg iron) tablet (FeroSul) 325 mg PO QODAY@1200 anemia #0 tabs 08/23/23 quetiapine 25 mg tablet 25 mg PO .at bedtime sleep 08/28/23 miconazole nitrate 2 % vaginal cream 1 applic vaginal QHS #0 grams 09/03/23 nystatin 100,000 unit/gram topical powder (Nyamyc) 1 applic topical TID #0 grams 09/03/23 oxycodone 5 mg tablet 5 mg PO Q4H PRN PRN Pain Score 4-10 2 days #10 tabs 09/03/23 sennosides 8.6 mg-docusate sodium 50 mg tablet (Stool Softener-Stimulant Laxative) 2 tab PO BID PRN PRN Constipation #0 tabs 09/03/23
[2023-09-03 15:18] VITALS: BP 141/80; PULSE 89; RESP 18; TEMP 36.7; O2SAT 95
--- NOTE | 2023-09-03 16:08 | NURSING ---
Called report to fer at [facility]
[2023-09-03] MEDS: Rivaroxaban 20 MG Tablet PO (16:13)
== END 2023-09-03 17:04 | disposition skilled nursing facility (03) | DRG 556 ==
PROVIDERS: Family Medicine; Internal Medicine Infectious Disease; Student in an Organized Health Care Education/Training Program; Admitting Provider Internal Medicine; PCP Family Medicine; Visit Provider Internal Medicine
PROC: 0J9P0ZZ Drainage of Left Lower Leg Subcutaneous Tissue and Fascia, Open Approach (ICD-10-PCS; principal; 2023-08-29 17:40)
DX: M79.81 Nontraumatic hematoma of soft tissue (principal); E72.12 Methylenetetrahydrofolate reductase deficiency; D68.62 Lupus anticoagulant syndrome; Z68.44 Body mass index [BMI] 60.0-69.9, adult; D62 Acute posthemorrhagic anemia; L03.116 Cellulitis of left lower limb; E11.22 Type 2 diabetes mellitus with diabetic chronic kidney disease; E66.01 Morbid (severe) obesity due to excess calories; M06.9 Rheumatoid arthritis, unspecified; F32.A Depression, unspecified; G25.81 Restless legs syndrome; F41.9 Anxiety disorder, unspecified; N18.2 Chronic kidney disease, stage 2 (mild); K21.9 Gastro-esophageal reflux disease without esophagitis; G47.33 Obstructive sleep apnea (adult) (pediatric); X58.XXXA Exposure to other specified factors, initial encounter; G89.4 Chronic pain syndrome; R53.81 Other malaise; Z79.01 Long term (current) use of anticoagulants; Z79.52 Long term (current) use of systemic steroids; Z79.84 Long term (current) use of oral hypoglycemic drugs; Z79.891 Long term (current) use of opiate analgesic; Z79.899 Other long term (current) drug therapy; Z86.711 Personal history of pulmonary embolism
CPT/HCPCS: 36415; 76882; 80053; 80202; 81001; 82962; 83036; 83735; 85014; 85018; 85025; 86644; 86850; 86900; 86901; 86920; 86922; 87040; 87070; 87075; 87086; 87088; 87205; 94660; 97110; 97116; 97162; 97166; 97530; 97535; 97802; J7030; J7040; P9016; A4216; J2405

== ENCOUNTER 2023-09-10 18:09 | Inpatient (IN) | payer MEDICARE, MEDICAID, SELFPAY ==
[2023-09-10 18:11] VITALS: BP 151/63; PULSE 110; RESP 16; TEMP 36.6; O2SAT 98; BMI 59.0
[2023-09-10 18:12] VITALS: BP 142/60; PULSE 102; RESP 16; TEMP 37; O2SAT 97
--- NOTE | 2023-09-10 18:35 | EKG12_ITS ---
Test Reason : DYSRHYTHMIA Blood Pressure : / mmHG Vent. Rate : 101 BPM Atrial Rate : 101 BPM P-R Int : 122 ms QRS Dur : 078 ms QT Int : 322 ms P-R-T Axes : 050 063 074 degrees QTc Int : 417 ms Sinus tachycardia Possible Left atrial enlargement Nonspecific ST abnormality Abnormal ECG Confirmed by BLAKE LEON, MILY ([id number]), electronic news gathering editor LYLY KENDALL ([id number]) on 09/11/2023 9:09:40 AM Referred By: Confirmed By:MILY LOZANO MD
--- NOTE | 2023-09-10 18:35 | CT_ITS ---
INDICATION: vertigo EXAMINATION: CT BRAIN - CT Head or Brain W/O Contrast Injection TECHNIQUE: Multiple axial images were obtained of the head without intravenous contrast. A radiation dose optimization technique was used for this scan. IV Contrast dosage and agent: None. COMPARISON: 06/02/2022 FINDINGS: BRAIN PARENCHYMA: No intra- or extra-axial hemorrhage. No evidence of acute infarct. No intracranial mass or mass effect. There is preservation of the rivera/white matter interface. Posterior fossa structures are unremarkable. CSF SPACES: Stable. No hydrocephalus. Basal cisterns are patent. CALVARIUM, SKULL BASE, PARANASAL SINUSES AND MASTOID AIR CELLS: Clear. No discrete lytic or blastic abnormalities. ORBITS: Both globes, extraocular muscles, optic nerves and retrobulbar fat appear unremarkable. CT/Brain/Head without Contrast IMPRESSION: No acute intracranial findings. Electronically Signed: Faheem Welch MD at 20:06 EST ,
--- NOTE | 2023-09-10 18:41 | EDS_ITS ---
HPI History of Present Illness Chief Complaint: General Illness Informant: patient Onset/Context/Timing Onset: Yesterday Narrative Narrative: Patient presents secondary to nausea and dizziness that started yesterday. Patient was recently in the hospital August 17 through August 26 with bacteremia secondary to cellulitis. She was then readmitted August 28 through the with left lower extremity hematoma. This was washed out and wound cultures from the site were negative. Patient states yesterday she developed nausea with dizziness. She describes a spinning sensation. She reports some chest pressure which she thinks is from anxiety. [facility] Medical History (Updated 09/10/23 @ 20:[address] Maame Palmer MD) Anemia Anticoagulant long-term use Anxiety and depression Bilateral lower extremity edema Celiac disease CKD (chronic kidney disease) Compartment syndrome of left lower extremity Diabetes mellitus, type 2 Gastroparesis GERD (gastroesophageal reflux disease) High risk medication use History of pulmonary embolism History of venous thromboembolism Immunocompromised state due to drug therapy Iron deficiency anemia due to chronic blood loss prison current use of anticoagulant Lupus anticoagulant disorder Morbid obesity MTHFR mutation Obesity KIKI (obstructive sleep apnea) Other complications of skin graft (allograft) (autograft) Pleural effusion, left Pulmonary embolism Rheumatoid arthritis Rheumatoid arthritis RLS (restless legs syndrome) Sinus tachycardia Home Medications bupropion HCl 300 mg 24 hr tablet, extended release 300 mg PO DAILY mental health 08/25/18 [History Last Taken 08/28/23] ropinirole 2 mg tablet,extended release 24 hr 2 mg PO QHS restless legs 08/25/18 [History Last Taken 09/20/22] rivaroxaban 20 mg tablet (Xarelto) 20 mg PO DAILY blood thinner 06/01/22 [History Last Taken 08/27/23] Probiotic 1 ea PO/SL DAILY IMMUNE HEALTH 09/21/22 [History Last Taken 08/28/23] atenolol 50 mg tablet 50 mg PO DAILY HEART 09/21/22 [History Last Taken 08/28/23] biotin 1 ea PO/SL DAILY SUPPLEMENT 09/21/22 [History Last Taken 08/28/23] brexpiprazole 1 mg tablet (Rexulti) 1 mg PO DAILY MENTAL HEALTH 09/21/22 [History Last Taken 08/28/23] buspirone 10 mg tablet 10 mg PO DAILY ANXIETY 09/21/22 [History Last Taken 08/28/23] buspirone 10 mg tablet 20 mg PO QHS ANXIETY 09/21/22 [History Last Taken 08/27/23] fluvoxamine 100 mg tablet 100 mg PO DAILY MENTAL HEALTH 09/21/22 [History Last Taken 08/28/23] prednisone 5 mg tablet 10 mg PO DAILY RA 09/21/22 [History Last Taken 08/28/23] pantoprazole 40 mg tablet,delayed release 40 mg PO BID reflux #60 tabs 10/26/22 [Rx Last Taken 08/28/23] sucralfate 1 gram tablet 1 g PO Q6H reflux #120 tabs 10/26/22 [Rx Last Taken 08/28/23] tocilizumab 162 mg/0.9 mL subcutaneous syringe (Actemra) 162 mg subcut .weekly immunosuppressant 03/18/23 [History Last Taken Unknown] promethazine 25 mg tablet 25 mg PO Q6H PRN nausea and vomiting #120 tabs 04/11/23 [Rx Last Taken Unknown] duloxetine 30 mg capsule,delayed release 30 mg PO DAILY mental health 06/29/23 [History Last Taken 08/28/23] quetiapine 50 mg tablet 50 mg PO QHS sleep 06/29/23 [History Last Taken 08/27/23] semaglutide 0.25 mg or 0.5 mg (2 mg/3 mL) subcutaneous pen injector (Ozempic) 0.5 mg subcut QWEEK diabetes 06/29/23 [History Last Taken Unknown] tizanidine 4 mg tablet 4 mg PO QHS spasms 06/29/23 [History Last Taken Unknown] triamcinolone acetonide 0.025 % topical cream 1 applic topical BID PRN celiac rash 06/29/23 [History Last Taken Unknown] pramipexole 0.75 mg tablet 0.75 mg PO TID restless leg 08/17/23 [History Last Taken Unknown] acetaminophen 325 mg tablet 1,000 mg (3.0769 x 325 mg) PO Q8H PRN PRN Fever, pain 1-10/10 #0 tabs 08/23/23 [Rx Last Taken Unknown] buprenorphine HCl 150 mcg buccal film (Belbuca) 150 mcg buccal Q12H pain relief 3 days #6 ea 08/23/23 [Rx Last Taken Unknown] ferrous sulfate 325 mg (65 mg iron) tablet (FeroSul) 325 mg PO QODAY@1200 anemia #0 tabs 08/23/23 [Rx Last Taken 08/27/23] quetiapine 25 mg tablet 25 mg PO .at bedtime sleep 08/28/23 [History Last Taken 08/27/23] miconazole nitrate 2 % vaginal cream 1 applic vaginal QHS #0 grams 09/03/23 [Rx Last Taken Unknown] nystatin 100,000 unit/gram topical powder (Nyamyc) 1 applic topical TID #0 grams 09/03/23 [Rx Last Taken Unknown] Allergy/AdvReac Type Severity Reaction Status Date / Time adhesive tape AdvReac Rash Verified 06/29/23 09:22 Family History Mother Cancer Lung CA w/ concurrent tobacco use. Heart disease Surgical History History of fasciotomy History of hysterectomy History of total bilateral knee replacement S/P pericardial window creation Social History household members: family Smoking Status: Never smoker alcohol intake: never substance use type: does not use ROS ROS ED Constitutional Constitutional ED: Denies chills or fever(s) Eyes Eyes: Denies change in vision or discharge from eye(s) ENT ENT ED: Denies discharge from eye(s), rhinorrhea or sore throat Cardiovascular Cardiovascular: Reports chest pain; Denies palpitations Respiratory/Chest Respiratory/Chest: Denies cough or dyspnea Gastrointestinal Gastrointestinal: Reports nausea and vomiting; Denies abdominal pain or diarrhea Genitourinary Genitourinary ED: Denies dysuria Musculoskeletal Musculoskeletal: Denies back pain or extremity pain Integumentary Denies Abrasions or rash Neurologic Neurologic: Reports weakness; Denies headache(s) Psychiatric Psychiatric: Reports anxiety; Denies depression Allergic/Immunologic Allergic/Immunologic ED: Denies lip swelling or urticaria EXAM Physical Exam Const Vital Signs: 09/10/23 18:11 09/10/23 18:09 09/10/23 18:12 Temperature 97.9 F 98.6 F Temperature Source Temporal Temporal Pulse Rate 110 H 102 H Respiratory Rate 16 16 Respiratory Effort Normal Respiratory Pattern Normal Blood Pressure 151/63 H 142/60 H Blood Pressure Mean 92 87 Pulse Ox 98 97 Oxygen Delivery Method Room Air Room Air 09/10/23 19:12 Temperature 98.4 F Temperature Source Temporal Pulse Rate 106 H Respiratory Rate 16 Respiratory Effort Respiratory Pattern Blood Pressure 144/71 H Blood Pressure Mean 95 Pulse Ox 95 Oxygen Delivery Method Room Air Positive well nourished and well developed General Appearance ED: well developed HEENT Reports moist mucous membranes Eyes EOMs intact bilaterally Chest Wall inspection of chest normal and palpation of chest normal Resp normal respiratory effort and clear to auscultation bilaterally Cardio regular rate and regular rhythm GI non-tender Auscultation: hypoactive bowel sounds Palpation: soft Extremity Extremity Narrative: Erythema noted to the left lower extremity. Definitive demarcation line is noted across the proximal toes. Skin is slightly more warm to touch than surr ounding concerning for cellulitis. Neuro oriented x3 and no sensory deficits noted Motor Exam: strength 5/5 throughout Psych mental status grossly normal Skin no rashes or lesions noted MDM MDM MDM Narrative Medical decision making narrative: IV line initiated. Patient given Zofran as well as Valium for vertigo. Labwork obtained to evaluate for leukocytosis, anemia, and electrolyte derangement. Urinalysis obtained to evaluate for infection/hematuria. Blood cultures obtained. Swab for COVID, influenza, and RSV ordered. EKG obtained to evaluate for cardiac arrhythmia/ischemia. Chest x-ray obtained to evaluate for acute lung pathology, cardiac size, or mediastinal abnormality. CT scan of the head obtained given her dizziness. History & Record Review Discussion w/independent historian: Patient and Friend Additional record(s) reviewed:: Prior inpatient record, Prior ED visit and Prior labs Lab Data Attestation: I reviewed the patient's lab results. Labs: Laboratory Results - last 24 hr 09/10/23 19:00 WBC 12.5 H RBC 3.76 L Hgb 8.9 L Hct 31.9 L MCV 84.8 MCH 23.7 L MCHC 27.9 L RDW Std Deviation 61.9 H RDW Coeff of Chepe 20.2 H Plt Count 490 H MPV 9.8 Immature Gran % (Auto) 0.400 Neut % (Auto) 73.2 H Lymph % (Auto) 13.4 L Wilkinson % (Auto) 11.8 H Eos % (Auto) 0.8 Baso % (Auto) 0.4 Absolute Neuts (auto) 9.1 H Absolute Lymphs (auto) 1.68 Nucleated RBC % 0 Differential Comment SCANNED Anisocytosis 1+ Sodium 139 Potassium 3.7 Chloride 104 Carbon Dioxide 30.0 Anion Gap 5 BUN 6 L Creatinine 0.96 Estim Creat Clear Calc 110.29 Est GFR (MDRD) Af Amer 78 Est GFR (MDRD) Non-Af 65 BUN/Creatinine Ratio 6.2 L Glucose 98 Lactic Acid 2.5 H* Calcium 9.3 Total Bilirubin 0.70 Direct Bilirubin 0.22 AST 8 L ALT 8 L Alkaline Phosphatase 89 Troponin I High Sens 8 Total Protein 7.4 Albumin 2.3 L Globulin 5.1 H Lipase 69 Urine Color Yellow Urine Clarity Clear Urine pH 8.0 Ur Specific Young 1.010 Urine Protein 30 H Urine Glucose (UA) Normal Urine Ketones Negative Urine Occult Blood 50 H Urine Nitrite Negative Urine Bilirubin Negative Urine Urobilinogen Normal Ur Leukocyte Esterase 25 H Urine RBC 0-5 SEEN Urine WBC 0-5 SEEN Ur Squamous Epith Cells 0 SEEN Urine Bacteria 0 SEEN Urine Mucus 0 SEEN Radiography Chest X-Ray - ED: 1 View, Read by ED Physician, Chronic Changes and No Infiltrates Diagnostic Testing: Clinical Impression(s) from Imaging Studies Brain CT 09/10/23 18:35 IMPRESSION: No acute intracranial findings. Electronically Signed: Faheem Welch MD at 20:06 EST , Chest X-Ray 09/10/23 19:26 IMPRESSION: No radiographic evidence of acute cardiopulmonary disease. Electronically Signed: Faheem Welch MD at 20:08 EST , EKG Initial EKG: Attestation: I personally reviewed and interpreted this EKG as follows: Interpretation: Sinus Tachycardia (Sinus tach at 101. Minimal, 1/[address] depression in the lateral precordial leads.) Treatment and Re-Evaluation :: CBC reveals a white count of 12.5 with 73% neutrophils. Hemoglobin is 8.9 which is actually improved when compared to her prior. Chemistry studies unremarkable with normal renal function. Glucose is 98. Lactic acid is elevated at 2.5. LFTs and lipase are unremarkable. Troponin is normal at 8. Urinalysis was obtained via straight cath and reveals no evidence of acute infection. Swab for COVID, influenza, and RSV is negative. Portable chest x-ray per my int erpretation was chronic changes with no acute findings. Radiology interpretation reviewed and agrees. CT scan of the head reveals no acute intracranial findings. On repeat evaluation patient feels nauseated again. Additional dose of Zofran will be ordered. With no other source and patient having erythema and warmth of her left lower extremity she will be covered with Zosyn and vancomycin which she was on previously with her sepsis admission and cellulitis. I will speak with hospitalist regarding admission. Discharge Plan Triage Chief Complaint: General Illness ED Provider: Maame Palmer Dx/Rx/DC Orders Clinical Impression: Cellulitis, Vertigo, Acidosis, lactic Prescriptions: No Action Actemra 162 mg/0.9 mL syringe 162 mg subcut .weekly bupropion HCl 300 MG tablet extended release 24 hr 300 mg PO DAILY ropinirole 2 MG tablet extended release 24 hr 2 mg PO QHS Xarelto 20 mg tablet 20 mg PO DAILY Hold Instructions: Resume on 08/25/23. Patient Comments: TAKE 1 TABLET BY MOUTH EVERY DAY WITH SUPPER prednisone 5 mg tablet 10 mg PO DAILY Patient Comments: TAKE 2 TABLETS BY MOUTH EVERY DAY. NEEDS OFFICE VISIT fluvoxamine 100 mg tablet 100 mg PO DAILY buspirone 10 mg tablet 10 mg PO DAILY Patient Comments: TAKE 1 TABLET BY MOUTH EVERY MORNING AND TAKE 2 TABLETS BY MOUTH AT BEDTIME buspirone 10 mg tablet 20 mg PO QHS Patient Comments: TAKE 1 TABLET BY MOUTH EVERY MORNING AND TAKE 2 TABLETS BY MOUTH AT BEDTIME atenolol 50 mg tablet 50 mg PO DAILY Patient Comments: TAKE 1 TABLET BY MOUTH EVERY DAY Rexulti 1 mg tablet 1 mg PO DAILY Patient Comments: TAKE 1 TABLET BY MOUTH EVERY DAY Probiotic 1 ea PO/SL DAILY biotin 1 ea PO/SL DAILY pantoprazole 40 mg Tablet,Delayed Release (Dr/Ec) 40 mg PO BID Qty: 60 2RF sucralfate 1 gram tablet 1 g PO Q6H Qty: 120 1RF quetiapine 25 mg tablet 25 mg PO .at bedtime miconazole nitrate 2 % Cream 1 applic vaginal QHS Qty: 0 0RF Rx Instructions: use for 4 days starting 09/03/23 then discontinue nystatin [Nyamyc] 100,000 unit/gram Powder 1 applic topical TID Qty: 0 0RF Protocol: *Topical Application Instructions APPLICATION INSTRUCTIONS: apply to skin folds duloxetine 30 mg capsule,delayed release(DR/EC) 30 mg PO DAILY Ozempic 0.25 mg or 0.5 mg (2 mg/3 mL) pen injector 0.5 mg SUBCUT QWEEK triamcinolone acetonide 0.025 % cream 1 applic topical BID PRN quetiapine 50 mg tablet 50 mg PO QHS tizanidine 4 mg tablet 4 mg PO QHS pramipexole 0.75 mg tablet 0.75 mg PO TID acetaminophen 325 mg Tablet 1,000 mg PO Q8H PRN PRN (Reason: Fever, pain 1-10/10) Qty: 0 0RF ferrous sulfate [FeroSul] 325 mg (65 mg iron) Tablet 325 mg PO QODAY@1200 Qty: 0 0RF buprenorphine HCl [Belbuca] 150 mcg film 150 mcg BUCCAL Q12H 3 Days Qty: 6 0RF promethazine 25 mg tablet 25 mg PO Q6H PRN (Reason: nausea and vomiting) Qty: 120 3RF Primary Care Provider: Tarah Dubon Referrals: Tarah Dubon DO [Primary Care Provider] - Disposition Disposition: Acute Care Hospital [facility]
[2023-09-10] MEDS: Ondansetron 4 MG/2 ML Vial IV ×2 (19:07→20:44)
[2023-09-10] MEDS: 0.9% Normal Saline (1000mL) 1,000 ML 150 ML IV (19:07)
[2023-09-10] MEDS: diazePAM 5 MG Tablet 2.5 MG PO (19:07)
[2023-09-10 19:12] VITALS: BP 144/71; PULSE 106; RESP 16; TEMP 36.9; O2SAT 95
[2023-09-10 19:21] LABS: Bacteria 0 SEEN /hpf (None Seen); Mucous, Urine 0 SEEN /hpf (<or=2+); Squamous Epithelial Cells - UA 0 SEEN /hpf (5-10)
--- NOTE | 2023-09-10 19:26 | RAD_ITS ---
INDICATION: Chest pain EXAMINATION/TECHNIQUE: X-RAY - portable upright AP chest x-ray COMPARISON: 06/29/2023 FINDINGS: LINES/DEVICES: None. LUNGS: No consolidation, edema or effusion. No pneumothorax. MEDIASTINUM AND CARDIOVASCULAR STRUCTURES: Stable cardiomegaly. BONES AND SOFT TISSUES: No acute changes. RAD/Chest 1 View (Portable) IMPRESSION: No radiographic evidence of acute cardiopulmonary disease. Electronically Signed: Faheem Welch MD at 20:08 EST ,
[2023-09-10 19:44] LABS: Absolute Lymphocyte Count 1.68 X10^3/uL (0.83-4.51); Absolute Neutrophil Count 9.1 X10^3/uL (2.0-7.7); Basophil# 0.05 X10^3/uL; Basophil% 0.4 % (0-1); Eosinophils% 0.8 % (0-5); Hematocrit 31.9 % (37-47); Hemoglobin 8.9 g/dL (12.0-15.0); Lymphocyte # 1.68 X10^3/ul (0.83-4.51); Lymphocyte % 13.4 % (19-41); Mean Corp Hgb Conc 27.9 g/dL (32-36); Mean Corpuscular Hgb 23.7 pg (27.0-32.0); Mean Corpuscular Volume 84.8 fL (81-99); Mean Platelet Vol. 9.8 fl (6.2-12.0); Monocyte# 1.48 X10^3/uL; Monocyte% 11.8 % (0-10); NRBC Flagged by Analyzer 0 % (0-5); Neutrophil # 9.14 X10^3/uL (2.7-7.7); Neutrophil % 73.2 % (47-70); POSITIVE MORPHOLOGY YES; Platelet Count 490 K/mm3 (150-450); RBC Distribution Width CV 20.2 % (11.6-14.6); RBC Distribution Width SD 61.9 fl (35.1-43.9); Red Blood Count 3.76 M/mm3 (4.2-5.4); White Blood Count 12.5 K/mm3 (4.4-11.0)
[2023-09-10 19:48] LABS: Color, Urine Yellow (Yellow); Glucose, Dipstick Normal (Normal); Ketone-Dipstick Negative (Negative); Leukocyte Esterase-Dipstick 25 /ul (Negative); Nitrite-Dipstick Negative (Negative); Occult Blood-Urine 50 /ul (Negative); Protein-Dipstick 30 mg/dl (Negative); Urine Bilirubin Dipstick Negative (Negative); Urine Clarity Clear (Clear); Urine Urobilinogen Normal (Normal)
[2023-09-10 19:53] LABS: Differential Indicated SCAN CRITERIA MET
[2023-09-10 19:56] LABS: AST(SGOT) 8 U/L (15-37); Alanine Aminotransfer ALT/SGPT 8 U/L (13-56); Albumin, Serum 2.3 g/dL (3.2-5.0); Alkaline Phosphatase 89 U/L (45-117); Anion Gap 5 (5-15); BUN 6 mg/dL (7-18); BUN/Creat Ratio 6.2 RATIO (10-20); Bilirubin, Direct 0.22 mg/dL (0.00-0.30); Calcium,Total 9.3 mg/dL (8.5-10.1); Chloride 104 mmol/L (98-107); Creatinine, Serum 0.96 mg/dL (0.55-1.02); EST Glomerular Filtration Rate 65 mL/min (>60); Est Glom Filt Rate - Afr Amer 78 mL/min (>60); Estimated Creatinine Clearance 110.29 ml/min; Globulin 5.1 g/dL (2.2-4.2); Glucose 98 mg/dL (74-106); Lipase 69 U/L (13-75); Potassium 3.7 mmol/L (3.5-5.1); Protein, Total 7.4 g/dL (6.4-8.2); Sodium Level 139 mmol/L (136-145); Troponin-I HS 8 pg/mL (3.0-54.0)
[2023-09-10 19:57] LABS: Red Blood Cells-Urine 0-5 SEEN /hpf (0-5); White Blood Cells 0-5 SEEN /hpf (0-5)
[2023-09-10 20:02] LABS: Lactic Acid 2.5 mmol/L (0.4-1.9)
[2023-09-10 20:06] LABS: Anisocytosis 1+; Differential Comment SCANNED
[2023-09-10] MEDS: Piperacil/Tazobactam 3.375 GM in 0.9% Normal Saline (50mL MB+) 50 ML IV (21:05)
--- NOTE | 2023-09-10 21:13 | HP.PCM.HOS_ITS ---
HPI - General General Date of Admission: 09/10/23 Date of Service: 09/10/23 Chief Complaint: Nausea, vertiginous symptoms. HPI Narrative The patient is a 52 y/o F w/ PMHx: Morbid obesity, Hx VTE (PE, DVT) with MTHFR mutation/Lupus anticoagulant disorder chronically anticoagulated, GERD, Anxiety and Depression, Diabetes mellitus type II with chronic neuropathy/gastroparesis, Chronic back pain on SL buprenorphine, Chronic anemia/Fe deficiency anemia, Hx GI Bleed/chronic blood loss with esophageal varices, KIKI, Rheumatoid arthritis, Chronic sinus tachycardia, CKD stage II per current trending but prior chart reported Hx CHD stage IIIa, recent discharge 07/02/23 following LLL PNA, sepsis and complicated UTI, recent discharge 08/26/23 following treatment for sepsis, cellulitis R hand/LLE with MSSA bacteremia, GI bleed, Opiate withdrawal, represented 08/28/23 secondary to LLE pain with eventual noted hematoma s/p I+D with no culture growth eventually discharged on 09/03/23 off abx therapy given Bld Cx without growth and no Cx from I+D in OR per ID direction who now re- presents to the [facility] ED on 09/10/23 with onset of 24 hours of nausea without emesis with room spinning sensation with noted new onset erythema from knee down to her foot which she did not note personally but was discussed upon ED initial physician evaluation. She denies any recent fever, chills, cough or dyspnea. In the ED upon evaluation dressing taken down from recent I&D site with slight maceration but no marked discharge but able to express serous fluid out of it and she does report that she has had significantly wet dressings but no foul smell and no marked discharge. She does state that she has been unable to elevate her leg above her heart and is frequently been laying down. She does feel as though her extremities are more edematous. Workup in the ED included T97.9, heart rate 110, BP 151/63, respiratory rate 16, 98% on room air, CBC with WBC 12.5, hemoglobin 8.9, MCV 84.8, platelet 490 with left shift, CMP not marked appearing, lactic acid 2.5, troponin 8, lipase 69, urinalysis not marked appearing, CT of the brain with no acute intracranial findings, chest x-ray with no acute cardiopulmonary findings, blood culture x 2 pending per ED, SARS COVID/influenza/RSV PCR negative, EKG with ST with minimal, 1/[address] depression in the lateral precordial leads. In the ED patient administered IV vancomycin, IV Zosyn, Zofran 4 mg IV x 2, Valium 2.5 mg p.o. x 1 in addition to maintenance IV fluids. 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 Lupus anticoagulant disorder Morbid obesity MTHFR mutation Obesity KIKI (obstructive sleep apnea) Other complications of skin graft (allograft) (autograft) Pleural effusion, left Pulmonary embolism Rheumatoid arthritis Rheumatoid arthritis RLS (restless legs syndrome) Sinus tachycardia Home Medications bupropion HCl 300 mg 24 hr tablet, extended release 300 mg PO DAILY mental health 08/25/18 [History Last Taken 08/28/23] ropinirole 2 mg tablet,extended release 24 hr 2 mg PO QHS restless legs 08/25/18 [History Last Taken 09/20/22] rivaroxaban 20 mg tablet (Xarelto) 20 mg PO DAILY blood thinner 06/01/22 [History Last Taken 08/27/23] Probiotic 1 ea PO/SL DAILY IMMUNE HEALTH 09/21/22 [History Last Taken 08/28/23] atenolol 50 mg tablet 50 mg PO DAILY HEART 09/21/22 [History Last Taken 08/28/23] biotin 1 ea PO/SL DAILY SUPPLEMENT 09/21/22 [History Last Taken 08/28/23] brexpiprazole 1 mg tablet (Rexulti) 1 mg PO DAILY MENTAL HEALTH 09/21/22 [History Last Taken 08/28/23] buspirone 10 mg tablet 10 mg PO DAILY ANXIETY 09/21/22 [History Last Taken 08/28/23] buspirone 10 mg tablet 20 mg PO QHS ANXIETY 09/21/22 [History Last Taken 08/27/23] fluvoxamine 100 mg tablet 100 mg PO DAILY MENTAL HEALTH 09/21/22 [History Last Taken 08/28/23] prednisone 5 mg tablet 10 mg PO DAILY RA 09/21/22 [History Last Taken 08/28/23] pantoprazole 40 mg tablet,delayed release 40 mg PO BID reflux #60 tabs 10/26/22 [Rx Last Taken 08/28/23] sucralfate 1 gram tablet 1 g PO Q6H reflux #120 tabs 10/26/22 [Rx Last Taken 08/28/23] tocilizumab 162 mg/0.9 mL subcutaneous syringe (Actemra) 162 mg subcut .weekly immunosuppressant 03/18/23 [History Last Taken Unknown] promethazine 25 mg tablet 25 mg PO Q6H PRN nausea and vomiting #120 tabs 04/11/23 [Rx Last Taken Unknown] duloxetine 30 mg capsule,delayed release 30 mg PO DAILY mental health 06/29/23 [History Last Taken 08/28/23] quetiapine 50 mg tablet 50 mg PO QHS sleep 06/29/23 [History Last Taken 08/27/23] semaglutide 0.25 mg or 0.5 mg (2 mg/3 mL) subcutaneous pen injector (Ozempic) 0.5 mg subcut QWEEK diabetes 06/29/23 [History Last Taken Unknown] tizanidine 4 mg tablet 4 mg PO QHS spasms 06/29/23 [History Last Taken Unknown] triamcinolone acetonide 0.025 % topical cream 1 applic topical BID PRN celiac rash 06/29/23 [History Last Taken Unknown] pramipexole 0.75 mg tablet 0.75 mg PO TID restless leg 08/17/23 [History Last Taken Unknown] acetaminophen 325 mg tablet 1,000 mg (3.0769 x 325 mg) PO Q8H PRN PRN Fever, pain 1-10/10 #0 tabs 08/23/23 [Rx Last Taken Unknown] buprenorphine HCl 150 mcg buccal film (Belbuca) 150 mcg buccal Q12H pain relief 3 days #6 ea 08/23/23 [Rx Last Taken Unknown] ferrous sulfate 325 mg (65 mg iron) tablet (FeroSul) 325 mg PO QODAY@1200 anemia #0 tabs 08/23/23 [Rx Last Taken 08/27/23] quetiapine 25 mg tablet 25 mg PO .at bedtime sleep 08/28/23 [History Last Taken 08/27/23] miconazole nitrate 2 % vaginal cream 1 applic vaginal QHS #0 grams 09/03/23 [Rx Last Taken Unknown] nystatin 100,000 unit/gram topical powder (Nyamyc) 1 applic topical TID #0 grams 09/03/23 [Rx Last Taken Unknown] Allergy/AdvReac Type Severity Reaction Status Date / Time adhesive tape AdvReac Rash Verified 06/29/23 09:22 Family History (Updated 09/10/23 @ 21:[address] Berna Cisneros MD) Mother Cancer Lung CA w/ concurrent tobacco use. Heart disease Father No problems noted. Family History other other (No marked paternal family history including HD, DM, CA.) Surgical History History of fasciotomy History of hysterectomy History of total bilateral knee replacement S/P pericardial window creation Social History household members: family Smoking Status: Never smoker alcohol intake: never substance use type: does not use ROS ROS Narrative Admission Review of Systems: CONSTITUTIONAL: No weight loss, fever, chills, + weakness or fatigue. HEENT: Eyes: No visual loss, blurred vision, double vision or yellow sclerae. Ears, Nose, Throat: No hearing loss, sneezing, congestion, runny nose or sore throat. SKIN: No rash or itching, lesions except + LLE with I+D small wound/still sutures in place, serous drainage, ED noted mild LLE erythema toe to knee. CARDIOVASCULAR: + Palpitations/tachycardia, acute on chronic edema component. No chest pain, chest pressure or chest discomfort, orthopnea, syncopal events. RESPIRATORY: + Dry chronic cough. No dyspnea or marked sputum, wheezing, hemoptysis. GASTROINTESTINAL: + anorexia, nausea without vomiting, No diarrhea, abdominal pain, melena, BRBPR. GENITOURINARY: No dysuria, frequency, urgency or retention. NEUROLOGICAL: No headache, dizziness, syncope, paralysis, ataxia, numbness or tingling in the extremities, focal weakness, change in bowel or bladder control, seizure. MUSCULOSKELETAL: + muscle, back pain, joint pain or stiffness. HEMATOLOGIC: + anemia, easy bleeding/bruising. LYMPHATICS: No enlarged nodes. No history of splenectomy. PSYCHIATRIC: + history of depression and anxiety. ENDOCRINOLOGIC: No reports of sweating, cold or heat intolerance. No polyuria or polydipsia. ALLERGIES: No history of asthma, hives, eczema or rhinitis. Vital Signs Vital Signs Vital Signs: 09/10/23 18:11 09/10/23 18:09 09/10/23 18:12 Temperature 97.9 F 98.6 F Temperature Source Temporal Temporal Pulse Rate 110 H 102 H Respiratory Rate 16 16 Respiratory Effort Normal Respiratory Pattern Normal Blood Pressure 151/63 H 142/60 H Blood Pressure Mean 92 87 Pulse Ox 98 97 Oxygen Delivery Method Room Air Room Air 09/10/23 19:12 Temperature 98.4 F Temperature Source Temporal Pulse Rate 106 H Respiratory Rate 16 Respiratory Effort Respiratory Pattern Blood Pressure 144/71 H Blood Pressure Mean 95 Pulse Ox 95 Oxygen Delivery Method Room Air Weight Weight: 365 lb 9.6 oz Body Mass Index (BMI) 59.0 Physical Exam Narrative Physical Examination: General: Awake, alert, oriented x 3 and cooperative, seated upright in ED bed, fatigued appearing, NAD. Skin: Normal color, normal turgor, no icterus, no cyanosis except as noted mild erythema LLE but uncertain cellulitis as notably edematous extremity, pitting, able to express serous fluid from leg, noted I+D incision with some maceration, sutures still in place. no foul discharge. HEENT: AT/NC, EOMI, PERRLA, moderately dry MM, no carotid bruits or JVD noted; however thickened neck makes evaluation difficult. Lungs: Diminished, distant, mildly increased respiratory rate but no distress, no rales, ronchi or wheezing. Heart: Tachycardic with regular rhythm; no gallop, rub audible. Abdomen: Soft, morbidly obese, NTTP, ND, distant normal BS, difficult to appreciate HSM given habitus Extremities: No cyanosis, no clubbing, see skin. Neurological: Patient awake, alert, oriented as noted, cognitive function intact; pupils equally reactive to light and accommodation, cranial nerves II- XII grossly normal, moving all 4 extremities, no focal deficits, strength moderately to severely global decrease secondary to acute presentation complaints complicated by underlying comorbidities, recent prolonged hospitalizations and habitus. Psychiatric: Affect appears fatigued, ill appearing, no acute evidence of depressive or anxiety feelings but does have underlying history. Results Lab / Micro Data 09/10/23 19:00 09/10/23 19:00 Labs: Laboratory Results - last 24 hr 09/10/23 19:00: WBC 12.5 H, RBC 3.76 L, Hgb 8.9 L, Hct 31.9 L, MCV 84.8, MCH 23.7 L, MCHC 27.9 L, RDW Std Deviation 61.9 H, RDW Coeff of Chepe 20.2 H, Plt Count 490 H, MPV 9.8, Immature Gran % (Auto) 0.400, Neut % (Auto) 73.2 H, Lymph % (Auto) 13.4 L, [place] % (Auto) 11.8 H, Eos % (Auto) 0.8, Baso % (Auto) 0.4, Absolute Neuts (auto) 9.1 H, Absolute Lymphs (auto) 1.68, Nucleated RBC % 0, Differential Comment SCANNED, Anisocytosis 1+, Sodium 139, Potassium 3.7, Chloride 104, Carbon Dioxide 30.0, Anion Gap 5, BUN 6 L, Creatinine 0.96, Estim Creat Clear Calc 110.29, Est GFR (MDRD) Af Amer 78, Est GFR (MDRD) Non-Af 65, BUN/Creatinine Ratio 6.2 L, Glucose 98, Lactic Acid 2.5 H*, Calcium 9.3, Total Bilirubin 0.70, Direct Bilirubin 0.22, AST 8 L, ALT 8 L, Alkaline Phosphatase 89, Troponin I High Sens 8, Total Protein 7.4, Albumin 2.3 L, Globulin 5.1 H, Lipase 69, Urine Color Yellow, Urine Clarity Clear, Urine pH 8.0, Ur Specific Oxly 1.010, Urine Protein 30 H, Urine Glucose (UA) Normal, Urine Ketones Negative, Urine Occult Blood 50 H, Urine Nitrite Negative, Urine Bilirubin Negative, Urine Urobilinogen Normal, Ur Leukocyte Esterase 25 H, Urine RBC 0-5 SEEN, Urine WBC 0-5 SEEN, Ur Squamous Epith Cells 0 SEEN, Urine Bacteria 0 SEEN, Urine Mucus 0 SEEN Micro: Microbiology 09/10/23 19:00 Mucosa - Nasopharyngeal SARS-CoV-2, Influenza & RSV (PCR) - Final Imaging Radiology Impression Brain CT 09/10/23 18:35 IMPRESSION: No acute intracranial findings. Electronically Signed: Faheem Welch MD at 20:06 EST , Chest X-Ray 09/10/23 19:26 IMPRESSION: No radiographic evidence of acute cardiopulmonary disease. Electronically Signed: Faheem Welch MD at 20:08 EST , Assessment & Plan Assessment/Plan (1) Cellulitis: PLAN: Plan The patient is a 52 y/o F w/ PMHx: Morbid obesity, Hx VTE (PE, DVT) with MTHFR mutation/Lupus anticoagulant disorder chronically anticoagulated, GERD, Anxiety and Depression, Diabetes mellitus type II with chronic neuropathy/gastroparesis, Chronic back pain on SL buprenorphine, Chronic anemia/Fe deficiency anemia, Hx GI Bleed/chronic blood loss with esophageal varices, KIKI, Rheumatoid arthritis, Chronic sinus tachycardia, CKD stage II per current trending but prior chart reported Hx CHD stage IIIa, recent discharge 07/02/23 following LLL PNA, sepsis and complicated UTI, recent discharge 08/26/23 following treatment for sepsis, cellulitis R hand/LLE with MSSA bacteremia, GI bleed, Opiate withdrawal, represented 08/28/23 secondary to LLE pain with eventual noted hematoma s/p I+D with no culture growth eventually discharged on 09/03/23 off abx therapy given Bld Cx without growth and no Cx from I+D in OR per ID direction who now re- presents to the [facility] ED on 09/10/23 with onset of 24 hours of nausea without emesi s with room spinning sensation with noted new onset erythema from knee down to her foot which she did not note personally but was discussed upon ED initial physician evaluation. #1. Nausea without emesis with dizziness, possibly vertiginous, suspect likely associated with #3: Possibly vertiginous, possibly related with #3 as noted. EKG in ED w/ sinus tachycardia without evidence of acute ischemia, CXR w/ no acute cardiopulmonary findings, initial trop normal, CT of the head with no acute intr acranial findings. Will admit to PCU given concurrent #2 as noted, place on a monitored bed to assure no acute myocardial infarction with serial cardiac enzymes and EKGs. Will maintain on fall precautions, obtain admission orthostatic vital signs to be cautious, will initiate and continue treatment with scheduled meclizine given concern for possible vertigo with possibly benign positional component, PRN zofran, IVFs. Recent echocardiogram during prior admission thus will not repeat. If patient does not clinically improve may need to consider MRI of the brain but again suspect related to #3 thus will continue treatment as noted also. PT/OT/CM consultation to ascertain stability and discharge needs. #2. Chest pressure, possibly anxiety component: EKG in ED with sinus rhythm with no acute evidence of ischemia, CXR w/ no acute cardiopulmonary findings, initial trop 8.0. Will place on a monitored bed to assure no acute myocardial infarction with serial cardiac enzymes and EKGs. Magnesium level requested. #3. Questionable recurrent left lower extremity cellulitis with mild lactic ac idosis, complicated by recent history #4: Admission lactic acid mildly elevated 2.5, concern for recurrent left lower extremity erythema, increased warmth, reinitiate the ED on broad-spectrum antibiotic therapy with IV vancomycin and IV Zosyn, given recent intervention with I&D with no culture growth at that time from hematoma unclear if possibly postoperative infection, will maintain again on broad-spectrum antibiotic therapy with blood culture x 2 pending, wound RN consultation requested, will request repeat ultrasound of the extremity to be cautious to assure there is no fluid collection it has been recurrent, will pulse dose with IV Lasix in place neck Clifford wraps. Strongly again discussed the need to elevate her extremity above her heart. May potentially need additional pulsed dosing with Lasix to assist in wound healing and also improvement of the lower extremity. Not 100% sure that this is actually cellulitis but could certainly be skin changes given the edema thus recommend reassessment once diuresed some of the leg is less edematous with de-escalation off antibiotic if appropriate at that time. #4. Recent history of right hand/left lower extremity cellulitis with associ ated MSSA bacteremia resolved with then readmission with left lower extremity hematoma, no growth from OR cultures: Recent presentation with MSSA bacteremia, blood culture 08/18 and 08/19 with Staph aureus, PICC line placed, infectious disease consulted and discharged on IV cefazolin q8h with weekly labs with home health. Recent admission with broaden antibiotic therapy secondary to concerns for infected hematoma however cultures were negative. Patient status post 08/29/23 OR Incision and drainage left lower leg hematoma. Given cultures were unremarkable patient did recent discharge 09/03/2023 was de-escalated off antibiotic therapy per infectious disease. As noted #3, questionable recurrent cellulitis, continue treatments as noted above. #5. Recent Acute GI Bleed with Acute on Chronic anemia/iron deficiency anemia: Recent admission with concern for possible blood loss anemia with positive guaiac with GI evaluation with EGD unremarkable, colonoscopy unfortunately with poor prep with evidence of diverticulosis, administered IV Fe sucrose 08/19/2023, started on oral ferrous sulfate every other day dosing. Admission hemoglobin 8.9, MCV 84.8, improved since previous, stable, continue to trend. #6. Chronic back pain with chronic pain syndrome: We will continue patient home chronic buprenorphine therapy, encourage positional changes, offloading, PT/OT/case management consulted for discharge planning. #7 CKD stage II per current trending but previous chart reported history noted CKD stage IIIa: Admission BUN/creatinine 6/0.96,, prior baseline creatinine noted to be primarily 0.7-0.9, stable, continue to trend. #8. Anxiety and depression: Patient on SNRI duloxetine with an SSRI Luvox which are contraindicated together, upon admission will maintain only on duloxetine. Will continue patient home buspar, wellbutrin home regimen, encourage early follow-up with her psychiatrist/psychologist and continued outpatient counseling. #9. Rheumatoid arthritis: We will continue patient home low-dose prednisone therapy, encourage continued follow-up with rheumatology. #10. Morbid Obesity: Weight loss and lifestyle changes encouraged. #11. History VTE with MTHFR mutation/Lupus anticoagulant disorder: Continue patient home Xarelto regimen. #12. History of Diabetes mellitus type II: HgbA1c 5.6%, will maintain per patient strong preference on regular diet and avoid Accu-Cheks with insulin sliding scale but strongly encourage patient to continue lifestyle and diet justine fications as this is near prediabetic range. #13. GERD with history GI bleed, esophageal varices: We will continue patient home PPI and sucralfate. #14. Restless leg syndrome: We will continue patient on pramipexole regimen. #15. KIKI: CPAP nightly. #16. DVT prophylaxis: Continue patient home Xarelto regimen. Charges/Coding Visit Charges Inpatient E&M: 05890 Init Hosp L3
[2023-09-10 21:40] VITALS: BP 124/61; PULSE 110; RESP 16; RESP 17; TEMP 36.8; O2SAT 96; O2SAT 98
[2023-09-10 22:00] VITALS: BP 155/73; PULSE 111; RESP 16; TEMP 36.8; O2SAT 97
[2023-09-10 22:02] VITALS: BMI 57.4
[2023-09-10] MEDS: Vancomycin HCl 2,000 MG in 0.9% Normal Saline (500mL Bag) 500 ML 250 MG IV (22:45)
[2023-09-10] MEDS: 0.9% Normal Saline (1000mL) 1,000 ML 100 ML IV (22:45)
[2023-09-10] MEDS: 0.9% Normal Saline (250mL Bag) 250 ML 15 ML IV (22:46)
[2023-09-10] MEDS: Acetaminophen 325 MG Tablet 650 MG PO (22:47)
[2023-09-10] MEDS: proCHLORPERazine 10 MG/2 ML Vial 5 MG IV (22:48)
[2023-09-10] MEDS: Furosemide 40 MG/4 ML Vial IV (22:58)
[2023-09-10] MEDS: Nystatin Powder 15gm Bottle 1 APPLIC TOPICAL (22:58)
[2023-09-10] MEDS: Miconazole-7 Nitrate Cream 1 APPLIC VAGINAL (22:58)
[2023-09-10] MEDS: tiZANidine HCl 2 MG Tablet 4 MG PO (22:59)
[2023-09-10] MEDS: QUEtiapine 25 MG Tablet 50 MG PO (22:59)
[2023-09-10] MEDS: busPIRone 5 MG Tablet 20 MG PO (22:59)
[2023-09-10] MEDS: Pramipexole Di-HCl 0.25 MG Tablet 0.75 MG PO (23:00)
[2023-09-10] MEDS: Meclizine HCl 25 MG Tablet PO (23:00)
[2023-09-10] MEDS: Pantoprazole Sodium 40 MG Tablet PO (23:00)
[2023-09-10] MEDS: Atenolol 50 MG Tablet PO (23:00)
[2023-09-10 23:17] LABS: Reflex Lactate? Y
[2023-09-10] MEDS: Buprenorphine HCl 2 MG TAB.SUBL SL (23:17)
--- NOTE | 2023-09-10 23:22 | PCM.RX.CS ---
Consult Antibiotic Management Pharmacy has been consulted to manage selected antibiotic: Vancomycin Type of Intervention Type of Consult: New start Suspected Infection Suspected Infection: Skin/Soft tissue Labs Labs: Sodium 139 mmol/L (136-145) 09/10/23 19:00 Potassium 3.7 mmol/L (3.5-5.1) 09/10/23 19:00 Chloride 104 mmol/L (98-107) 09/10/23 19:00 Carbon Dioxide 30.0 mmol/L (21.0-32.0) 09/10/23 19:00 Anion Gap 5 (5-15) 09/10/23 19:00 BUN 6 mg/dL (7-18) L 09/10/23 19:00 Creatinine 0.96 mg/dL (0.55-1.02) 09/10/23 19:00 Est GFR (MDRD) Af Amer 78 mL/min (>60) 09/10/23 19:00 Est GFR (MDRD) Non-Af 65 mL/min (>60) 09/10/23 19:00 BUN/Creatinine Ratio 6.2 RATIO (10-20) L 09/10/23 19:00 Glucose 98 mg/dL (74-106) 09/10/23 19:00 Microbiology Microbiology: Microbiology 09/10/23 19:00 Mucosa - Nasopharyngeal SARS-CoV-2, Influenza & RSV (PCR) - Final Dosing Weight Weight used for dosin.1 kg Estimated Creatinine Clearance Estimated Creatinine Clearance: > 100 Goal Trough Goal Trough: 15-20 mcg/mL Pharmacy Plan for Drug Dosing Pharmacy Plan for Drug Dosing: [facility] IV VANCOMYCIN Consulting Physician: Dr. Cisneros Indication: LLE cellulitis Goal Trough: 15-20 SrCr: 0.96 CrCl: > 100 ml/min Comments: Received Vancomycin 2000mg x1 loading dose @ 22:45 09/10/23 Vancomycin Dose: 1250mg Q8H to start at 07:00 09/11/23 Pending Level: Vancomycin trough @ 22:30 09/11/23 Pharmacy Service will continue to monitor and adjust dosing as required. Follow-Up Labs Follow-Up Labs: Trough: Vancomycin (22:30 09/11/23)
[2023-09-10 23:31] LABS: Magnesium 1.4 mg/dL (1.6-2.6); Troponin-I HS 10 pg/mL (3.0-54.0)
[2023-09-10 23:48] VITALS: BP 155/73; PULSE 108; RESP 18; TEMP 36.3; O2SAT 95
[2023-09-11] VITALS (8 sets, daily range): BP systolic 102–127; BP diastolic 53–75; PULSE 86–114; RESP 15–18; TEMP 35.9–36.7; O2SAT 93–96; BMI 57.4
[2023-09-11] MEDS: Magnesium Sulfate 2 GM in Dextrose 5%-Water (100mL Bag) 100 ML IV (00:21)
[2023-09-11 02:41] LABS: Absolute Neutrophil Count 6.3 X10^3/uL (2.0-7.7); Basophil# 0.05 X10^3/uL; Basophil% 0.5 % (0-1); Eosinophil# 0.22 X10^3/uL; Eosinophils% 2.2 % (0-5); Hematocrit 28.4 % (37-47); Hemoglobin 8.1 g/dL (12.0-15.0); Lymphocyte % 21.5 % (19-41); Mean Corp Hgb Conc 28.5 g/dL (32-36); Mean Corpuscular Hgb 24.2 pg (27.0-32.0); Mean Corpuscular Volume 84.8 fL (81-99); Mean Platelet Vol. 8.9 fl (6.2-12.0); Monocyte# 1.41 X10^3/uL; Monocyte% 13.8 % (0-10); NRBC Flagged by Analyzer 0 % (0-5); Neutrophil # 6.32 X10^3/uL (2.7-7.7); Neutrophil % 61.7 % (47-70); POSITIVE MORPHOLOGY YES; Platelet Count 452 K/mm3 (150-450); RBC Distribution Width CV 20.4 % (11.6-14.6); RBC Distribution Width SD 62.5 fl (35.1-43.9); Red Blood Count 3.35 M/mm3 (4.2-5.4); White Blood Count 10.2 K/mm3 (4.4-11.0)
[2023-09-11 02:48] LABS: Differential Indicated SCAN CRITERIA MET
[2023-09-11 03:02] LABS: Lactic Acid 0.8 mmol/L (0.4-1.9); Troponin-I HS 10 pg/mL (3.0-54.0)
[2023-09-11 03:16] LABS: Anisocytosis 3+
[2023-09-11 03:19] LABS: ALB/GLOB Ratio 0.5 RATIO (0.9-2.4); AST(SGOT) 6 U/L (15-37); Alanine Aminotransfer ALT/SGPT 7 U/L (13-56); Albumin, Serum 2.2 g/dL (3.2-5.0); Alkaline Phosphatase 80 U/L (45-117); Anion Gap 5 (5-15); BUN 8 mg/dL (7-18); BUN/Creat Ratio 9.1 RATIO (10-20); Calcium,Total 8.3 mg/dL (8.5-10.1); Chloride 103 mmol/L (98-107); Creatinine, Serum 0.88 mg/dL (0.55-1.02); EST Glomerular Filtration Rate 72 mL/min (>60); Est Glom Filt Rate - Afr Amer 87 mL/min (>60); Estimated Creatinine Clearance 118.17 ml/min; Globulin 4.1 g/dL (2.2-4.2); Glucose 97 mg/dL (74-106); Magnesium 1.9 mg/dL (1.6-2.6); Potassium 3.4 mmol/L (3.5-5.1); Protein, Total 6.3 g/dL (6.4-8.2); Sodium Level 140 mmol/L (136-145)
[2023-09-11] MEDS: Pramipexole Di-HCl 0.25 MG Tablet 0.75 MG PO ×3 (05:49→19:36)
[2023-09-11] MEDS: Sucralfate 1 GM Tablet PO ×4 (05:49→19:36)
[2023-09-11] MEDS: Meclizine HCl 25 MG Tablet PO ×3 (05:50→19:37)
[2023-09-11] MEDS: Piperacil/Tazobactam 3.375 GM in 0.9% Normal Saline (50mL MB+) 50 ML IV ×3 (05:51→21:43)
--- NOTE | 2023-09-11 05:55 | US_ITS ---
STUDY: SUPERFICIAL ULTRASOUND - LEFT LATERAL CALF. REASON FOR EXAM: Female, 52 years old. Reassess for abscess/recurrent hematoma -- LLE TECHNIQUE: A superficial ultrasound was performed with real-time and static rivera-scale imaging. COMPARISON: Comparison is made with prior study dated August 28, 2023. FINDINGS: The lateral aspect of the left calf was examined with ultrasound. There is a persistent 7.8 cm x 5.9 cm x 3.3 cm complex density with heterogeneous appearance with surrounding vascularity. This may represent postoperative hematoma. Follow-up recommended. US/Ext Non Vasc Limited/Soft Tiss IMPRESSION: Persistent 7.8 cm x 5.9 cm x 3.3 cm complex soft tissue density with heterogeneous appearance and surrounding vascularity. With the history of recent surgical intervention, this may represent postoperative hematoma. Follow-up recommended. Electronically Signed: Yan Clement MD at 15:05 EST ,
[2023-09-11] MEDS: Vancomycin HCl 1,250 MG in 0.9% Normal Saline (250mL Bag) 250 ML 167 MG IV ×2 (05:56→15:41)
--- NOTE | 2023-09-11 06:36 | CPS ---
Pt did not want to wear hosp cpap
[2023-09-11] MEDS: predniSONE 5 MG Tablet 10 MG PO (08:48)
[2023-09-11] MEDS: busPIRone 5 MG Tablet 10 MG PO (08:49)
[2023-09-11] MEDS: buPROPion (XL) 300 MG TABLET.XL PO ×2 (08:49→19:37)
[2023-09-11] MEDS: DULoxetine Hcl 30 MG Capsule PO (08:49)
[2023-09-11] MEDS: Atenolol 50 MG Tablet PO (08:50)
[2023-09-11] MEDS: Pantoprazole Sodium 40 MG Tablet PO ×2 (08:50→19:37)
[2023-09-11] MEDS: Buprenorphine HCl 2 MG TAB.SUBL SL ×2 (08:53→19:44)
--- NOTE | 2023-09-11 11:02 | WOUNDNOTE ---
wound photo: left lower leg
--- NOTE | 2023-09-11 11:39 | CASEMGMT ---
Addendum entered by Charity Davidson 09/11/23 11:53: ZENON ROMAN received call back from [facility] and they are unable to accept patient. Discharge financial planning analyst to make [facility] list for patient. CM will continue to follow this patient and plan for a safe disharge. Original Note: ZENON ROMAN chart review: Patient was admitted 08/28-09/03/23 for recurrent cellulitis and discharge to [facility] for additional therapy. Patient was also admitted 08/17-08/26/23 for SIRS and was discharged to home with [facility] and IV ATBs. See assessment from 08/19/23. ZENON ROMAN in to discuss readmission and discharge plans. Patient states she was at [facility] for 3 days and discharge to home due to it being so dirty. No C was setup for patient prior to discharge. Patient states she was taking medications as prescribed. Patient states she was to see her PCP tomorrow. Patient states she returned to [facility] ED after eating chicken and feeling nauseated and dizzy. Patient states she was physically doing well prior to feeling sick. Patient wishes to discharge home with [facility]. Patient denied further needs at discharge. ZENON ROMAN called and made referral to [facility], awaiting acceptance.
[2023-09-11] MEDS: Acetaminophen 325 MG Tablet 650 MG PO (14:41)
--- NOTE | 2023-09-11 16:05 | PN.HOSP_ITS ---
Subjective Subjective Doing well, no issues overnight Objective Data Objective Data Vital Signs: Vital Signs Temp Pulse Resp BP Pulse Ox O2 Del Method O2 Flow Rate 97.6 F L 86 16 102/53 L 93 Room Air 2 09/11/23 14:43 09/11/23 14:43 09/11/23 14:43 09/11/23 14:43 09/11/23 14:43 09/11/23 14:43 09/11/23 03:07 Oxygen Flow Rate (L/min) 2 Oxygen Delivery Method Room Air Weight: 355 lb 9.69 oz Body Mass Index (BMI) 57.4 Intake & Output: Intake and Output for Last 24 Hours 09/10/23 09/11/23 09/12/23 03:59 03:59 03:59 Intake Total 1694 / 1694 2375 / 2375 Output Total 500 / 500 1200 / 1200 Balance 1194 / 1194 1175 / 1175 Lab / Micro Data 09/11/23 02:28 09/11/23 02:28 Labs: Laboratory Results - last 24 hr 09/10/23 19:00: WBC 12.5 H, RBC 3.76 L, Hgb 8.9 L, Hct 31.9 L, MCV 84.8, MCH 23.7 L, MCHC 27.9 L, RDW Std Deviation 61.9 H, RDW Coeff of Chepe 20.2 H, Plt Count 490 H, MPV 9.8, Immature Gran % (Auto) 0.400, Neut % (Auto) 73.2 H, Lymph % (Auto) 13.4 L, [place] % (Auto) 11.8 H, Eos % (Auto) 0.8, Baso % (Auto) 0.4, Absolute Neuts (auto) 9.1 H, Absolute Lymphs (auto) 1.68, Nucleated RBC % 0, Differential Comment SCANNED, Anisocytosis 1+, Sodium 139, Potassium 3.7, Chloride 104, Carbon Dioxide 30.0, Anion Gap 5, BUN 6 L, Creatinine 0.96, Estim Creat Clear Calc 110.29, Est GFR (MDRD) Af Amer 78, Est GFR (MDRD) Non-Af 65, BUN/Creatinine Ratio 6.2 L, Glucose 98, Lactic Acid 2.5 H*, Calcium 9.3, Total Bilirubin 0.70, Direct Bilirubin 0.22, AST 8 L, ALT 8 L, Alkaline Phosphatase 89, Troponin I High Sens 8, Total Protein 7.4, Albumin 2.3 L, Globulin 5.1 H, Lipase 69, Urine Color Yellow, Urine Clarity Clear, Urine pH 8.0, Ur Specific [place] 1.010, Urine Protein 30 H, Urine Glucose (UA) Normal, Urine Ketones Negative, Urine Occult Blood 50 H, Urine Nitrite Negative, Urine Bilirubin Negative, Urine Urobilinogen Normal, Ur Leukocyte Esterase 25 H, Urine RBC 0-5 SEEN, Urine WBC 0-5 SEEN, Ur Squamous Epith Cells 0 SEEN, Urine Bacteria 0 SEEN, Urine Mucus 0 SEEN 09/10/23 22:56: Magnesium 1.4 L, Troponin I High Sens 10 09/11/23 02:28: WBC 10.2, RBC 3.35 L, Hgb 8.1 L, Hct 28.4 L, MCV 84.8, MCH 24.2 L, MCHC 28.5 L, RDW Std Deviation 62.5 H, RDW Coeff of Chepe 20.4 H, Plt Count 452 H, MPV 8.9, Immature Gran % (Auto) 0.300, Neut % (Auto) 61.7, Lymph % (Auto) 21.5, [place] % (Auto) 13.8 H, Eos % (Auto) 2.2, Baso % (Auto) 0.5, Absolute Neuts (auto) 6.3, Absolute Lymphs (auto) 2.20, Nucleated RBC % 0, Anisocytosis 3+, Sodium 140, Potassium 3.4 L, Chloride 103, Carbon Dioxide 32.0, Anion Gap 5, BUN 8, Creatinine 0.88, Estim Creat Clear Calc 118.17, Est GFR (MDRD) Af Amer 87, Est GFR (MDRD) Non-Af 72, BUN/Creatinine Ratio 9.1 L, Glucose 97, Lactic Acid 0.8, Calcium 8.3 L, Magnesium 1.9, Total Bilirubin 0.80, AST 6 L, ALT 7 L, Alkaline Phosphatase 80, Troponin I High Sens 10, Total Protein 6.3 L, Albumin 2.2 L, Globulin 4.1, Albumin/Globulin Ratio 0.5 L Micro: Microbiology 09/10/23 19:00 Mucosa - Nasopharyngeal SARS-CoV-2, Influenza & RSV (PCR) - Final Radiography Diagnostic Testing: Radiology Impression Brain CT 09/10/23 18:35 IMPRESSION: No acute intracranial findings. Electronically Signed: Faheem Welch MD at 20:06 EST , Chest X-Ray 09/10/23 19:26 IMPRESSION: No radiographic evidence of acute cardiopulmonary disease. Electronically Signed: Faheem Welch MD at 20:08 EST , Soft Tissue Ultrasound 09/11/23 05:55 IMPRESSION: Persistent 7.8 cm x 5.9 cm x 3.3 cm complex soft tissue density with heterogeneous appearance and surrounding vascularity. With the history of recent surgical intervention, this may represent postoperative hematoma. Follow-up recommended. Electronically Signed: Yan Clement MD at 15:05 EST , Physical Exam Narrative General: Alert, Oriented x3, Cooperative, No apparent distress HEENT: Atraumatic, PERRLA, EOMI, Normocephalic Oral: Moist Mucosa Neck: Supple, No JVD Lungs: Diminished, Normal air movement, No rhonchi, No wheeze, No rales Cardiovascular: Regular rate, Regular Rhythm, Normal S1, Normal S2, No murmurs Abdomen: Soft, Non Tender, Non-Distended, No Hepato-splenomegaly Extremities: Edema, Capillary Refill Less than 3 Seconds Skin: I&D on the left foy is wrapped Musculoskeletal: No Tenderness to Palpation of Joints or Extremities Neurological: No focal neurological deficits, Motor Exam 5/5 strength th roughout, Sensory exam intact to light touch and pain Psych/Mental Status: Normal Affect, Appropriate Assessment & Plan Assessment/Plan (1) Cellulitis: PLAN: Plan 1. Nausea with possible vertigo related to possible recurrent left lower extremity cellulitis ? Still feels a little bit nauseated ? White count has improved from 12 down to 10.1 on broad-spectrum antibiotics ? Blood cultures are still pending ? Soft tissue ultrasound demonstrates her chronic possible hematoma in her left calf ? At the end of July she was in for MSSA bacteremia due to a right hand and left lower extremity cellulitis at that time she was discharged on Ancef and was discontinued on 09/03/2023 2. History of VTE with MTHFR mutation in the setting of a recent GI bleed/iron deficiency anemia/GERD ? She did have an unremarkable EGD and colonoscopy. She was started on oral iron after giving a dose of IV iron ? Hemoglobin is stable ? Can continue with her Xarelto ? Continue with PPI and Carafate 3. Rheumatoid arthritis with chronic back pain and chronic pain syndrome/anxiety/depression/morbid obesity/restless legs ? Stable ? Continue with her home medications DVT: Xarelto Charges/Coding Visit Charges Inpatient E&M: 91244 Subs Hosp L2
[2023-09-11] MEDS: Rivaroxaban 20 MG Tablet PO (17:13)
[2023-09-11] MEDS: proCHLORPERazine 10 MG/2 ML Vial 5 MG IV (18:24)
[2023-09-11] MEDS: busPIRone 5 MG Tablet 20 MG PO (19:36)
[2023-09-11] MEDS: QUEtiapine 25 MG Tablet 50 MG PO (19:37)
[2023-09-11] MEDS: tiZANidine HCl 2 MG Tablet 4 MG PO (19:38)
[2023-09-11 23:09] LABS: Vancomycin, Trough Level 36.8 ug/mL (5.0-15.0)
--- NOTE | 2023-09-11 23:15 | PCM.RX.CS ---
Consult Antibiotic Management Pharmacy has been consulted to manage selected antibiotic: Vancomycin Type of Intervention Type of Consult: Follow-up Labs Labs: Sodium 140 mmol/L (136-145) 09/11/23 02:28 Potassium 3.4 mmol/L (3.5-5.1) L 09/11/23 02:28 Chloride 103 mmol/L (98-107) 09/11/23 02:28 Carbon Dioxide 32.0 mmol/L (21.0-32.0) 09/11/23 02:28 Anion Gap 5 (5-15) 09/11/23 02:28 BUN 8 mg/dL (7-18) 09/11/23 02:28 Creatinine 0.88 mg/dL (0.55-1.02) 09/11/23 02:28 Est GFR (MDRD) Af Amer 87 mL/min (>60) 09/11/23 02:28 Est GFR (MDRD) Non-Af 72 mL/min (>60) 09/11/23 02:28 BUN/Creatinine Ratio 9.1 RATIO (10-20) L 09/11/23 02:28 Glucose 97 mg/dL (74-106) 09/11/23 02:28 Vancomycin Trough 36.8 ug/mL (5.0-15.0) H 09/11/23 22:28 Microbiology Microbiology: Microbiology 09/10/23 19:00 Mucosa - Nasopharyngeal SARS-CoV-2, Influenza & RSV (PCR) - Final Goal Trough Goal Trough: 15-20 mcg/mL Pharmacy Plan for Drug Dosing Pharmacy Plan for Drug Dosing: Pharmacy Service will continue to monitor and adjust dosing as required. TROUGH 36.8 @ 7 HOURS. HOLD DOSE, DRAW RANDOM LEVEL 24 HOURS AFTER PREVIOUS DOSE Follow-Up Labs Follow-Up Labs: Trough: Vancomycin Date/Time Labs Ordered Labs to be done on [date and time ordered]: 09/12 @ 1800 RANDOM
[2023-09-12 02:45] VITALS: BP 141/73; PULSE 81; RESP 16; TEMP 36.1; O2SAT 98
[2023-09-12] MEDS: Piperacil/Tazobactam 3.375 GM in 0.9% Normal Saline (50mL MB+) 50 ML IV (05:16)
[2023-09-12] MEDS: Pramipexole Di-HCl 0.25 MG Tablet 0.75 MG PO (05:17)
[2023-09-12] MEDS: Meclizine HCl 25 MG Tablet PO (05:17)
[2023-09-12] MEDS: Sucralfate 1 GM Tablet PO ×2 (05:17→11:39)
[2023-09-12 05:31] VITALS: BMI 57.4
[2023-09-12] MEDS: Acetaminophen 325 MG Tablet 650 MG PO (07:26)
[2023-09-12 07:33] VITALS: O2SAT 94
[2023-09-12 08:04] VITALS: BP 114/63; PULSE 84; RESP 14; TEMP 36.2; O2SAT 93
[2023-09-12] MEDS: busPIRone 5 MG Tablet 10 MG PO (08:12)
[2023-09-12] MEDS: Atenolol 50 MG Tablet PO (08:12)
[2023-09-12] MEDS: predniSONE 5 MG Tablet 10 MG PO (08:13)
[2023-09-12] MEDS: buPROPion (XL) 300 MG TABLET.XL PO (08:13)
[2023-09-12] MEDS: DULoxetine Hcl 30 MG Capsule PO (08:13)
[2023-09-12] MEDS: Ferrous Sulfate 325 MG Tablet PO (08:13)
[2023-09-12] MEDS: Pantoprazole Sodium 40 MG Tablet PO (08:13)
[2023-09-12] MEDS: Buprenorphine HCl 2 MG TAB.SUBL SL (08:16)
--- NOTE | 2023-09-12 09:24 | CASEMGMT ---
Addendum entered by Cynthia Marcelo 09/12/23 13:40: Patient was accepted by [facility] tomorrow or Saturday. [facility] and [facility] declined. RN CM updated. Cynthia Marcelo, Discharge Planning Asst. Original Note: Discharge Planning HH referral sent via [facility] to [facility], [facility], and [facility]. Cynthia Marcelo, Discharge Planning Asst.
--- NOTE | 2023-09-12 11:04 | DCINST_ITS ---
Discharge Instructions Diet Discharge Diet: No restrictions Activity Discharge Activity: Return to Normal Activity Dressing / Incision Call your doctor if you observe: Fever of 101 or Higher, Shortness of breath, Dizziness, Fainting spells, Swelling in the ankles, Chest pain and Increased palpitations (irregular heartbeat) Follow Up Care Test Results: Test results from this visit will be discussed in further detail at your follow- up appointment, if applicable. Discharge Plan Admission Admit Date/Time: 09/10/23 21:15 Attending Provider: Kavin Pickens Primary Care Provider: Tarah Dubon Consulting Providers: Berna Cisneros Discharge Orders/Prescriptions Prescriptions: New amoxicillin-pot clavulanate 875-125 mg tablet 1 tab PO BID Qty: 10 0RF Continued Actemra 162 mg/0.9 mL syringe 162 mg subcut .weekly bupropion HCl 300 MG tablet extended release 24 hr 300 mg PO DAILY ropinirole 2 MG tablet extended release 24 hr 2 mg PO QHS Xarelto 20 mg tablet 20 mg PO DAILY Hold Instructions: Resume on 08/25/23. Patient Comments: TAKE 1 TABLET BY MOUTH EVERY DAY WITH SUPPER prednisone 5 mg tablet 10 mg PO DAILY Patient Comments: TAKE 2 TABLETS BY MOUTH EVERY DAY. NEEDS OFFICE VISIT fluvoxamine 100 mg tablet 100 mg PO DAILY buspirone 10 mg tablet 10 mg PO DAILY Patient Comments: TAKE 1 TABLET BY MOUTH EVERY MORNING AND TAKE 2 TABLETS BY MOUTH AT BEDTIME buspirone 10 mg tablet 20 mg PO QHS Patient Comments: TAKE 1 TABLET BY MOUTH EVERY MORNING AND TAKE 2 TABLETS BY MOUTH AT BEDTIME atenolol 50 mg tablet 50 mg PO DAILY Patient Comments: TAKE 1 TABLET BY MOUTH EVERY DAY Rexulti 1 mg tablet 1 mg PO DAILY Patient Comments: TAKE 1 TABLET BY MOUTH EVERY DAY Probiotic 1 ea PO/SL DAILY biotin 1 ea PO/SL DAILY pantoprazole 40 mg Tablet,Delayed Release (Dr/Ec) 40 mg PO BID Qty: 60 2RF sucralfate 1 gram tablet 1 g PO Q6H Qty: 120 1RF quetiapine 25 mg tablet 25 mg PO .at bedtime miconazole nitrate 2 % Cream 1 applic vaginal QHS Qty: 0 0RF Rx Instructions: use for 4 days starting 09/03/23 then discontinue nystatin [Nyamyc] 100,000 unit/gram Powder 1 applic topical TID Qty: 0 0RF Protocol: *Topical Application Instructions APPLICATION INSTRUCTIONS: apply to skin folds duloxetine 30 mg capsule,delayed release(DR/EC) 30 mg PO DAILY Ozempic 0.25 mg or 0.5 mg (2 mg/3 mL) pen injector 0.5 mg SUBCUT QWEEK triamcinolone acetonide 0.025 % cream 1 applic topical BID PRN quetiapine 50 mg tablet 50 mg PO QHS tizanidine 4 mg tablet 4 mg PO QHS pramipexole 0.75 mg tablet 0.75 mg PO TID acetaminophen 325 mg Tablet 1,000 mg PO Q8H PRN PRN (Reason: Fever, pain 1-04/30) Qty: 0 0RF ferrous sulfate [FeroSul] 325 mg (65 mg iron) Tablet 325 mg PO QODAY@1200 Qty: 0 0RF buprenorphine HCl [Belbuca] 150 mcg film 150 mcg BUCCAL Q12H 3 Days Qty: 6 0RF promethazine 25 mg tablet 25 mg PO Q6H PRN (Reason: nausea and vomiting) Qty: 120 3RF Referrals / Follow Up: Tarah Dubon DO [Primary Care Provider] - Within 1 Week Disposition Disposition (needs filled in before D/C Order can be placed): Home, Self Care
--- NOTE | 2023-09-12 13:29 | PHA.DC.MC.R ---
Pharmacy [facility] Service has performed discharge medication reconciliation and counseling for this patient. The patient's discharge medication list was reviewed for discrepancies and discrepancies were resolved. The patient was counseled on the following discharge medications and changes in medications for homegoing were reviewed. The Reason for Use, instructions for use, and potential side effects were reviewed for all new medications. The patient's questions regarding all of their medications were answered. 1. The patient was counselled on new medication amoxicillin/clavulanate 875/125 mg PO BID x 5 days. The patient was able to verbally demonstrate an understanding of their discharge medications. The patient was counselled on new medication by senior pharmacy technician [place]. Medications at Discharge Home Medications bupropion HCl 300 mg 24 hr tablet, extended release 300 mg PO DAILY mental health 08/25/18 ropinirole 2 mg tablet,extended release 24 hr 2 mg PO QHS restless legs 08/25/18 rivaroxaban 20 mg tablet (Xarelto) 20 mg PO DAILY blood thinner 06/01/22 Probiotic 1 ea PO/SL DAILY IMMUNE HEALTH 09/21/22 atenolol 50 mg tablet 50 mg PO DAILY HEART 09/21/22 biotin 1 ea PO/SL DAILY SUPPLEMENT 09/21/22 brexpiprazole 1 mg tablet (Rexulti) 1 mg PO DAILY MENTAL HEALTH 09/21/22 buspirone 10 mg tablet 10 mg PO DAILY ANXIETY 09/21/22 buspirone 10 mg tablet 20 mg PO QHS ANXIETY 09/21/22 fluvoxamine 100 mg tablet 100 mg PO DAILY MENTAL HEALTH 09/21/22 prednisone 5 mg tablet 10 mg PO DAILY RA 09/21/22 pantoprazole 40 mg tablet,delayed release 40 mg PO BID reflux #60 tabs 10/26/22 sucralfate 1 gram tablet 1 g PO Q6H reflux #120 tabs 10/26/22 tocilizumab 162 mg/0.9 mL subcutaneous syringe (Actemra) 162 mg subcut .weekly immunosuppressant 03/18/23 promethazine 25 mg tablet 25 mg PO Q6H PRN nausea and vomiting #120 tabs 04/11/23 duloxetine 30 mg capsule,delayed release 30 mg PO DAILY mental health 06/29/23 quetiapine 50 mg tablet 50 mg PO QHS sleep 06/29/23 semaglutide 0.25 mg or 0.5 mg (2 mg/3 mL) subcutaneous pen injector (Ozempic) 0.5 mg subcut QWEEK diabetes 06/29/23 tizanidine 4 mg tablet 4 mg PO QHS spasms 06/29/23 triamcinolone acetonide 0.025 % topical cream 1 applic topical BID PRN celiac rash 06/29/23 pramipexole 0.75 mg tablet 0.75 mg PO TID restless leg 08/17/23 acetaminophen 325 mg tablet 1,000 mg (3.0769 x 325 mg) PO Q8H PRN PRN Fever, pain 1-04/30 #0 tabs 08/23/23 buprenorphine HCl 150 mcg buccal film (Belbuca) 150 mcg buccal Q12H pain relief 3 days #6 ea 08/23/23 ferrous sulfate 325 mg (65 mg iron) tablet (FeroSul) 325 mg PO QODAY@1200 anemia #0 tabs 08/23/23 quetiapine 25 mg tablet 25 mg PO .at bedtime sleep 08/28/23 miconazole nitrate 2 % vaginal cream 1 applic vaginal QHS rash #0 grams 09/03/23 nystatin 100,000 unit/gram topical powder (Nyamyc) 1 applic topical TID rash #0 grams 09/03/23 amoxicillin 875 mg-potassium clavulanate 125 mg tablet 1 tab PO BID #10 tabs 09/12/23
--- NOTE | 2023-09-12 13:53 | CASEMGMT ---
ZENON ROMAN updated by discharge planning lead that [facility] has accepted patient with planned start of care for Saturday or Saturday. Patient has order for discharge. ZENON ROMAN in to update patient regarding [facility] setup. Patient denies further needs or help at home. Patient had no further questions or concerns.
--- NOTE | 2023-09-12 15:19 | DS.PCM_ITS ---
Providers Date of Admission: 09/10/23 Primary Care Physician: Dr. Tarah Dubon, DO Consultations 09/10/23 22:02 Consult: Onc/Wound/senior site manager Routine Comment: Reason for Consult:: Recent I+D LLE Reason For Visit: CELLULITIS, VERTIGO Diagnosis Discharge Diagnosis (1) Cellulitis: Status: Acute Code(s): L03.90 - Cellulitis, unspecified Medications at Discharge Home Medications bupropion HCl 300 mg 24 hr tablet, extended release 300 mg PO DAILY mental health 08/25/18 ropinirole 2 mg tablet,extended release 24 hr 2 mg PO QHS restless legs 08/25/18 rivaroxaban 20 mg tablet (Xarelto) 20 mg PO DAILY blood thinner 06/01/22 Probiotic 1 ea PO/SL DAILY IMMUNE HEALTH 09/21/22 atenolol 50 mg tablet 50 mg PO DAILY HEART 09/21/22 biotin 1 ea PO/SL DAILY SUPPLEMENT 09/21/22 brexpiprazole 1 mg tablet (Rexulti) 1 mg PO DAILY MENTAL HEALTH 09/21/22 buspirone 10 mg tablet 10 mg PO DAILY ANXIETY 09/21/22 buspirone 10 mg tablet 20 mg PO QHS ANXIETY 09/21/22 fluvoxamine 100 mg tablet 100 mg PO DAILY MENTAL HEALTH 09/21/22 prednisone 5 mg tablet 10 mg PO DAILY RA 09/21/22 pantoprazole 40 mg tablet,delayed release 40 mg PO BID reflux #60 tabs 10/26/22 sucralfate 1 gram tablet 1 g PO Q6H reflux #120 tabs 10/26/22 tocilizumab 162 mg/0.9 mL subcutaneous syringe (Actemra) 162 mg subcut .weekly immunosuppressant 03/18/23 promethazine 25 mg tablet 25 mg PO Q6H PRN nausea and vomiting #120 tabs 04/11/23 duloxetine 30 mg capsule,delayed release 30 mg PO DAILY mental health 06/29/23 quetiapine 50 mg tablet 50 mg PO QHS sleep 06/29/23 semaglutide 0.25 mg or 0.5 mg (2 mg/3 mL) subcutaneous pen injector (Ozempic) 0.5 mg subcut QWEEK diabetes 06/29/23 tizanidine 4 mg tablet 4 mg PO QHS spasms 12/09/23 triamcinolone acetonide 0.025 % topical cream 1 applic topical BID PRN celiac rash 06/29/23 pramipexole 0.75 mg tablet 0.75 mg PO TID restless leg 08/17/23 acetaminophen 325 mg tablet 1,000 mg (3.0769 x 325 mg) PO Q8H PRN PRN Fever, pain 1-10/10 #0 tabs 08/23/23 buprenorphine HCl 150 mcg buccal film (Belbuca) 150 mcg buccal Q12H pain relief 3 days #6 ea 08/23/23 ferrous sulfate 325 mg (65 mg iron) tablet (FeroSul) 325 mg PO QODAY@1200 anemia #0 tabs 08/23/23 quetiapine 25 mg tablet 25 mg PO .at bedtime sleep 08/28/23 miconazole nitrate 2 % vaginal cream 1 applic vaginal QHS rash #0 grams 09/03/23 nystatin 100,000 unit/gram topical powder (Nyamyc) 1 applic topical TID rash #0 grams 09/03/23 amoxicillin 875 mg-potassium clavulanate 125 mg tablet 1 tab PO BID #10 tabs 09/12/23 Hospital Course Operations None Procedures None Summary of Care Provided Minutes Spent on Discharge: 38 Hospital Course: Per HPI: The patient is a 52 y/o F w/ PMHx: Morbid obesity, Hx VTE (PE, DVT) with MTHFR mutation/Lupus anticoagulant disorder chronically anticoagulated, GERD, Anxiety and Depression, Diabetes mellitus type II with chronic neuropathy/gastroparesis, Chronic back pain on SL buprenorphine, Chronic anemia/Fe deficiency anemia, Hx GI Bleed/chronic blood loss with esophageal varices, KIKI, Rheumatoid arthritis, Chronic sinus tachycardia, CKD stage II per current trending but prior chart reported Hx CHD stage IIIa, recent discharge 07/02/23 following [facility] PNA, sepsis and complicated UTI, recent discharge 08/26/23 following treatment for sepsis, cellulitis R hand/LLE with MSSA bacteremia, GI bleed, Opiate withdrawal, represented 08/28/23 secondary to LLE pain with eventual noted hematoma s/p I+D with no culture growth eventually discharged on 09/03/23 off abx therapy given Bld Cx without growth and no Cx from I+D in OR per ID direction who now re-presents to the [facility] ED on 09/10/23 with onset of 24 hours of nausea without emesis with room spinning sensation with noted new onset erythema from knee down to her foot which she did not note personally but was discussed upon ED initial physician evaluation. She denies any recent fever, chills, cough or dyspnea. In the ED upon evaluation dressing taken down from recent I&D site with slight maceration but no marked discharge but able to express serous fluid out of it and she does report that she has had significantly wet dressings but no foul smell and no marked discharge. She does state that she has been unable to elevate her leg above her heart and is frequently been laying down. She does feel as though her extremities are more edematous. Workup in the ED included T97.9, heart rate 110, BP 151/63, respiratory rate 16, 98% on room air, CBC with WBC 12.5, hemoglobin 8.9, MCV 84.8, platelet 490 with left shift, CMP not marked appearing, lactic acid 2.5, troponin 8, lipase 69, urinalysis not marked appearing, CT of the brain with no acute intracranial findings, chest x-ray with no acute cardiopulmonary findings, blood culture x 2 pending per ED, SARS COVID/influenza/RSV PCR negative, EKG with ST with minimal, 1/[address] depression in the lateral precordial leads. In the ED patient administered IV vancomycin, IV Zosyn, Zofran 4 mg IV x 2, Valium 2.5 mg p.o. x 1 in addition to maintenance IV fluids. Hospital Course: 1. Nausea with possible vertigo related to possible recurrent left lower extremity cellulitis?52-year-old female with extensive past medical history presents to the hospital with nausea and dizziness. There is also the possibility of recurrence of her left lower extremity cellulitis though it was not very remarkable on admission. She recently had an extensive infectious hematoma evacuated and at the time it was thought to be MSSA and she completed her antibiotics. On admission her white count was elevated to 12,000 and she was started on Vanco and Zosyn. Today she was 10.1 so I discussed with her the possibility of discharge as she was feeling much better and she elected to go home. She did have a soft tissue ultrasound which still shows a hematoma but I recommend she follow-up with her PCP as an outpatient for. In the meantime we will place her on 5 more days of p.o. Augmentin. I discussed with her the plan for discharge today she expressed understanding of the risk benefits of going home and would like to go home today. 2. History of VTE with MTHFR mutation in the setting of a recent GI bleed, iron deficiency anemia, GERD, rheumatoid arthritis with chronic back pain and chronic pain syndrome, anxiety, depression, morbid obesity, restless legs are all chronic medical conditions which complicate her care. Her home medications were continued where appropriate. I recommend outpatient follow-up. Physical Exam Narrative General: Alert, Oriented x3, Cooperative, No apparent distress HEENT: Atraumatic, PERRLA, EOMI, Normocephalic Oral: Moist Mucosa Neck: Supple, No JVD Lungs: Diminished, Normal air movement, No rhonchi, No wheeze, No rales Cardiovascular: Regular rate, Regular Rhythm, Normal S1, Normal S2, No murmurs Abdomen: Soft, Non Tender, Non-Distended, No Hepato-splenomegaly Extremities: Edema, Capillary Refill Less than 3 Seconds Skin: I&D on the left foy is wrapped Musculoskeletal: No Tenderness to Palpation of Joints or Extremities Neurological: No focal neurological deficits, Motor Exam 5/5 strength throughout, Sensory exam intact to light touch and pain Psych/Mental Status: Normal Affect, Appropriate Weight / BMI Weight Weight: 356 lb 0.745 oz Body Mass Index (BMI) 57.4 ABG / Lab / Microbiology Data 09/11/23 02:28 09/11/23 02:28 Laboratory: Laboratory Results - last 24 hr 09/11/23 22:28: Vancomycin Trough 36.8 H Microbiology: Microbiology 09/10/23 19:00 Mucosa - Nasopharyngeal SARS-CoV-2, Influenza & RSV (PCR) - Final D/C Instructions Discharge Diet: No restrictions Call your doctor if you observe: Fever of 101 or Higher, Shortness of breath, Dizziness, Fainting spells, Swelling in the ankles, Chest pain and Increased palpitations (irregular heartbeat) Meaningful Use Info Meaningful Use Diagnoses (Choose all that apply): None applicable Discharge Plan Admission Admit Date/Time: 09/10/23 21:15 Attending Provider: Kavin Pickens Primary Care Provider: Tarah Dubon Consulting Providers: Berna Cisneros Discharge Orders/Prescriptions Prescriptions: New amoxicillin-pot clavulanate 875-125 mg tablet 1 tab PO BID Qty: 10 0RF Continued Actemra 162 mg/0.9 mL syringe 162 mg subcut .weekly bupropion HCl 300 MG tablet extended release 24 hr 300 mg PO DAILY ropinirole 2 MG tablet extended release 24 hr 2 mg PO QHS Xarelto 20 mg tablet 20 mg PO DAILY Hold Instructions: Resume on 08/25/23. Patient Comments: TAKE 1 TABLET BY MOUTH EVERY DAY WITH SUPPER prednisone 5 mg tablet 10 mg PO DAILY Patient Comments: TAKE 2 TABLETS BY MOUTH EVERY DAY. NEEDS OFFICE VISIT fluvoxamine 100 mg tablet 100 mg PO DAILY buspirone 10 mg tablet 10 mg PO DAILY Patient Comments: TAKE 1 TABLET BY MOUTH EVERY MORNING AND TAKE 2 TABLETS BY MOUTH AT BEDTIME buspirone 10 mg tablet 20 mg PO QHS Patient Comments: TAKE 1 TABLET BY MOUTH EVERY MORNING AND TAKE 2 TABLETS BY MOUTH AT BEDTIME atenolol 50 mg tablet 50 mg PO DAILY Patient Comments: TAKE 1 TABLET BY MOUTH EVERY DAY Rexulti 1 mg tablet 1 mg PO DAILY Patient Comments: TAKE 1 TABLET BY MOUTH EVERY DAY Probiotic 1 ea PO/SL DAILY biotin 1 ea PO/SL DAILY pantoprazole 40 mg Tablet,Delayed Release (Dr/Ec) 40 mg PO BID Qty: 60 2RF sucralfate 1 gram tablet 1 g PO Q6H Qty: 120 1RF quetiapine 25 mg tablet 25 mg PO .at bedtime miconazole nitrate 2 % Cream 1 applic vaginal QHS Qty: 0 0RF Rx Instructions: use for 4 days starting 09/03/23 then discontinue nystatin [Nyamyc] 100,000 unit/gram Powder 1 applic topical TID Qty: 0 0RF Protocol: *Topical Application Instructions APPLICATION INSTRUCTIONS: apply to skin folds duloxetine 30 mg capsule,delayed release(DR/EC) 30 mg PO DAILY Ozempic 0.25 mg or 0.5 mg (2 mg/3 mL) pen injector 0.5 mg SUBCUT QWEEK triamcinolone acetonide 0.025 % cream 1 applic topical BID PRN quetiapine 50 mg tablet 50 mg PO QHS tizanidine 4 mg tablet 4 mg PO QHS pramipexole 0.75 mg tablet 0.75 mg PO TID acetaminophen 325 mg Tablet 1,000 mg PO Q8H PRN PRN (Reason: Fever, pain 1-04/30) Qty: 0 0RF ferrous sulfate [FeroSul] 325 mg (65 mg iron) Tablet 325 mg PO QODAY@1200 Qty: 0 0RF buprenorphine HCl [Belbuca] 150 mcg film 150 mcg BUCCAL Q12H 3 Days Qty: 6 0RF promethazine 25 mg tablet 25 mg PO Q6H PRN (Reason: nausea and vomiting) Qty: 120 3RF Referrals / Follow Up: Tarah Dubon DO [Primary Care Provider] - 09/16/23 3:00 pm Disposition Disposition (needs filled in before D/C Order can be placed): Home, Self Care Charges/Coding Visit Charges Inpatient E&M: 04464 Disch Hosp >30min
== END 2023-09-12 14:50 | disposition home or self-care (01) | DRG 603 ==
LOC: ED 20:49 → PCU 21:34
PROVIDERS: Admitting Provider Family Medicine; Emergency Provider Emergency Medicine; PCP Family Medicine; Visit Provider Family Medicine
DX: L03.116 Cellulitis of left lower limb (principal); E72.12 Methylenetetrahydrofolate reductase deficiency; E87.20 Acidosis, unspecified; Z68.43 Body mass index [BMI] 50.0-59.9, adult; E11.22 Type 2 diabetes mellitus with diabetic chronic kidney disease; E11.43 Type 2 diabetes mellitus with diabetic autonomic (poly)neuropathy; D50.0 Iron deficiency anemia secondary to blood loss (chronic); F32.A Depression, unspecified; E66.01 Morbid (severe) obesity due to excess calories; M06.9 Rheumatoid arthritis, unspecified; G25.81 Restless legs syndrome; G47.33 Obstructive sleep apnea (adult) (pediatric); N18.2 Chronic kidney disease, stage 2 (mild); K21.9 Gastro-esophageal reflux disease without esophagitis; F41.9 Anxiety disorder, unspecified; M54.9 Dorsalgia, unspecified; R42 Dizziness and giddiness; G89.4 Chronic pain syndrome; Z79.899 Other long term (current) drug therapy; Z79.52 Long term (current) use of systemic steroids; Z79.01 Long term (current) use of anticoagulants; Z86.711 Personal history of pulmonary embolism; Z86.718 Personal history of other venous thrombosis and embolism
CPT/HCPCS: 36415; 70450; 71045; 76882; 80048; 80053; 80076; 80202; 81001; 83605; 83690; 83735; 84484; 85025; 87040; 87631; 93005; 94668; 97162; 97166; 97802; 99285; J7030; J7040; J7050; A4216; J1940; J2405

== ENCOUNTER 2023-09-13 15:38 | Inpatient (IN) | payer MEDICARE, MEDICAID, SELFPAY ==
[2023-09-13 16:04] VITALS: BMI 58.8
--- NOTE | 2023-09-13 16:12 | PCM.HP.STD ---
HPI - General General Date of Admission: 09/13/23 Date of Service: 09/13/23 Chief Complaint: JAGDISH HPI Narrative RICCARDO VICKERS, is a 52 y/o F w/ PMHx: Morbid obesity, Hx VTE (PE, DVT) with MTHFR mutation/Lupus anticoagulant disorder chronically anticoagulated, GERD, Anxiety and Depression, Diabetes mellitus type II with chronic neuropathy/gastroparesis, Chronic back pain on SL buprenorphine, Chronic anemia/Fe deficiency anemia, Hx GI Bleed/chronic blood loss with esophageal varices, KIKI, Rheumatoid arthritis, Chronic sinus tachycardia who presented as a transfer from [facility] ED 09/13/2023 due to worsening kidney function. She was recently admitted here 09/10 through 09/12 for nausea and or some left lower extremity cellulitis and improved on antibiotics and was discharged 09/12 on Augmentin. She was not feeling well after discharge so presented to [facility] where she was found to have a creatinine of 4.6, she was admitted and her renal and bladder ultrasound only showed 30 mL and her UA was fairly benign however repeat creatinine was 4.97 with BUN of 31 so [facility] contacted for transfer for nephrology evaluation. Patient seen at bedside and endorses she intermittently feels a little bit short of breath and lightheaded but primarily feeling nauseated for the past day and has not been feeling very hungry for the past couple of weeks, 1 episode of loose stool in the past day but no abdominal pain, no change in swelling in legs but does feel like the tops of her feet are tight and almost tingly sometimes. Primary complaint is not being able to urinate [facility] Medical History (Updated 09/13/23 @ 16:[address] 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 Lupus anticoagulant disorder Morbid obesity MTHFR mutation Obesity KIKI (obstructive sleep apnea) Other complications of skin graft (allograft) (autograft) Pleural effusion, left Pulmonary embolism Rheumatoid arthritis Rheumatoid arthritis RLS (restless legs syndrome) Sinus tachycardia Home Medications bupropion HCl 300 mg 24 hr tablet, extended release 300 mg PO DAILY mental health 08/25/18 [History Last Taken 08/28/23] ropinirole 2 mg tablet,extended release 24 hr 2 mg PO QHS restless legs 08/25/18 [History Last Taken 09/20/22] rivaroxaban 20 mg tablet (Xarelto) 20 mg PO DAILY blood thinner 06/01/22 [History Last Taken 08/27/23] Probiotic 1 ea PO/SL DAILY IMMUNE HEALTH 09/21/22 [History Last Taken 08/28/23] atenolol 50 mg tablet 50 mg PO DAILY HEART 09/21/22 [History Last Taken 08/28/23] biotin 1 ea PO/SL DAILY SUPPLEMENT 09/21/22 [History Last Taken 08/28/23] brexpiprazole 1 mg tablet (Rexulti) 1 mg PO DAILY MENTAL HEALTH 09/21/22 [History Last Taken 08/28/23] buspirone 10 mg tablet 10 mg PO DAILY ANXIETY 09/21/22 [History Last Taken 08/28/23] buspirone 10 mg tablet 20 mg PO QHS ANXIETY 09/21/22 [History Last Taken 08/27/23] fluvoxamine 100 mg tablet 100 mg PO DAILY MENTAL HEALTH 09/21/22 [History Last Taken 08/28/23] prednisone 5 mg tablet 10 mg PO DAILY RA 09/21/22 [History Last Taken 08/28/23] pantoprazole 40 mg tablet,delayed release 40 mg PO BID reflux #60 tabs 10/26/22 [Rx Last Taken 08/28/23] sucralfate 1 gram tablet 1 g PO Q6H reflux #120 tabs 10/26/22 [Rx Last Taken 08/28/23] tocilizumab 162 mg/0.9 mL subcutaneous syringe (Actemra) 162 mg subcut .weekly immunosuppressant 03/18/23 [History Last Taken Unknown] promethazine 25 mg tablet 25 mg PO Q6H PRN nausea and vomiting #120 tabs 04/11/23 [Rx Last Taken Unknown] duloxetine 30 mg capsule,delayed release 30 mg PO DAILY mental health 06/29/23 [History Last Taken 08/28/23] quetiapine 50 mg tablet 50 mg PO QHS sleep 06/29/23 [History Last Taken 08/27/23] semaglutide 0.25 mg or 0.5 mg (2 mg/3 mL) subcutaneous pen injector (Ozempic) 0.5 mg subcut QWEEK diabetes 06/29/23 [History Last Taken Unknown] tizanidine 4 mg tablet 4 mg PO QHS spasms 06/29/23 [History Last Taken Unknown] triamcinolone acetonide 0.025 % topical cream 1 applic topical BID PRN celiac rash 06/29/23 [History Last Taken Unknown] pramipexole 0.75 mg tablet 0.75 mg PO TID restless leg 08/17/23 [History Last Taken Unknown] acetaminophen 325 mg tablet 1,000 mg (3.0769 x 325 mg) PO Q8H PRN PRN Fever, pain 1-04/30 #0 tabs 08/23/23 [Rx Last Taken Unknown] buprenorphine HCl 150 mcg buccal film (Belbuca) 150 mcg buccal Q12H pain relief 3 days #6 ea 08/23/23 [Rx Last Taken Unknown] ferrous sulfate 325 mg (65 mg iron) tablet (FeroSul) 325 mg PO QODAY@1200 anemia #0 tabs 08/23/23 [Rx Last Taken 08/27/23] quetiapine 25 mg tablet 25 mg PO .at bedtime sleep 08/28/23 [History Last Taken 08/27/23] miconazole nitrate 2 % vaginal cream 1 applic vaginal QHS rash #0 grams 09/03/23 [Rx Last Taken Unknown] nystatin 100,000 unit/gram topical powder (Nyamyc) 1 applic topical TID rash #0 grams 09/03/23 [Rx Last Taken Unknown] amoxicillin 875 mg-potassium clavulanate 125 mg tablet 1 tab PO BID #10 tabs 09/12/23 [Rx Last Taken Unknown] Allergy/AdvReac Type Severity Reaction Status Date / Time adhesive tape AdvReac Rash Verified 06/29/23 09:22 Family History (Updated 09/10/23 @ 21:[address] Berna Cisneros MD) Mother Cancer Lung CA w/ concurrent tobacco use. Heart disease Father No problems noted. Surgical History History of fasciotomy History of hysterectomy History of total bilateral knee replacement S/P pericardial window creation Social History household members: family Smoking Status: Never smoker alcohol intake: never substance use type: does not use ROS ROS Narrative General: Denies fever/chills HENT: Denies headache, denies stuffy nose, denies sore throat EYES: Denies changes in vision Resp: Has had a bit of a cough over several months which is unchanged, occasionally feels somewhat short of breath Cardiac: Denies chest pain GI: Denies abdominal pain, denies changes in bowel, is feeling nauseous : Has not been urinating well Extremity: Does not necessarily think she has increase in swelling MSK: Denies weakness Neuro: Occasionally feels like tops of feet are tingly Heme: Denies any bleeding or bruising Skin: Improving cellulitis Psychiatric: No complaints voiced Vital Signs Vital Signs Vital Signs: Weight Weight: 165.5 kg Body Mass Index (BMI) 58.8 Physical Exam Narrative General: Alert, oriented, no apparent distress HEENT: Atraumatic, normocephalic Eyes: Anicteric, normal conjunctiva, extraocular movements grossly intact Neck: Supple Respiratory: Diminished at the bases but suspect this is partially due to habitus, normal respiratory effort Cardiovascular: Regular rate and rhythm GI: Soft, nontender, nondistended Extremities: 1+ lower extremity edema Musculoskeletal: Moving all extremities Neuro: No overt focal neurological deficits Skin: Mumtaz around where patient cellulitis was shows receding cellulitic changes Psych: Cooperative Results Lab / Micro Data 09/13/23 17:25 Assessment & Plan Assessment/Plan (1) JAGDISH (acute kidney injury): (2) Cellulitis: (3) Rheumatoid arthritis: (4) Diabetes mellitus, type 2: PLAN: Plan #Acute kidney failure -Kidney function here 09/11 with creatinine of 0.88, on 09/12 at outlying facility was 4.6 and trended up to 4.97 -Reportedly renal and bladder ultrasound only with 30 mL in bladder otherwise no significant abnormalities -Bladder scan here only 60 -UA fairly benign -Repeat BMP shows creatinine of 5.51 -IV fluids held, appears she has been [facility] and given minimal urine output concerned that patient may become fluid overloaded -Urine studies ordered -Nephrology consult -Order ESR and CRP as well as CHIRAG and ANCA # Left lower extremity cellulitis -Discharged yesterday on Augmentin -Will transition IV antibiotics while admitted # History of DVT/PE with MTHFR mutation -Will transition from Xarelto to heparin drip in the event patient needs something like kidney biopsy and given kidney function would not want to give Xarelto #Chronic anemia -Hgb 8.3, was 7.6 on discharge -No acute evidence of bleeding at this time #GERD -Continue PPI #Type 2 diabetes mellitus -Glucose checks and sliding scale insulin #Morbid obesity -BMI 58.9 kg/m? -Complicates treatment, prognosis, outcomes -Recommend weight loss and lifestyle changes # Anxiety and depression -Patient on multiple medications, specifically she is on an SNRI duloxetine with an SSRI Luvox, these are contraindicated together so should not be given together, will be holding duloxetine either way given her kidney function so we will continue fluvoxamine, will also have to hold BuSpar due to her kidney function -Continue Wellbutrin and Seroquel -Pt also on rexulti -Given multiple psych medicines and mg slightly low will give some oral mag, given kidney function hesitant to give IV or high doses # Chronic back pain -PT/OT -Supportive care -Continue home medications # RA -Patient on 10 mg of prednisone daily # RLS -On pramipexole and ropinirole but will hold due to kidney function #DVT ppx: heparin gtt Maryam Santos MD Time spent in the patient's overall evaluation,decision-making process, review of diagnostic data, adjustment of management, discussion with other providers, nursing nursing and ancillary staff involved in patient's care documentation, 56 Minutes Charges/Coding Visit Charges Inpatient E&M: 68961 Init Hosp L2
[2023-09-13] MEDS: Ampicillin/Sulbactam 3 GM in 0.9% Normal Saline (100mL MB+) 100 ML IV (17:19)
[2023-09-13] MEDS: 0.9% Saline Lock 10 ML Syringe IV ×3 (17:26→20:44)
[2023-09-13] MEDS: 0.9% Normal Saline (1000mL) 1,000 ML 50 ML IV (17:29)
--- NOTE | 2023-09-13 17:37 | NURSING ---
Lab was here to get CBC per orders. Pt was a hard stick and pt was not tolerating well. Pt kept moving her arm saying it was painful and kept crying. noc technician was only able to get a small amt of blood in the tube and said she would try to run that much if she could. Pt agreed to let tech try again later this evening. Xin stated that I'm the only one here until 11 and asked if she could keep the tubes here in case if pt had a picc line put in. This RN told manager labor delivery that PICC line is not ordered and would need for her to come back later.
[2023-09-13 17:57] LABS: Bedside Glucose 79 mg/dL (74-106)
[2023-09-13 18:00] LABS: Anion Gap 10 (5-15); BUN 34 mg/dL (7-18); BUN/Creat Ratio 6.2 RATIO (10-20); Calcium,Total 8.3 mg/dL (8.5-10.1); Chloride 105 mmol/L (98-107); Creatinine, Serum 5.51 mg/dL (0.55-1.02); EST Glomerular Filtration Rate 9 mL/min (>60); Est Glom Filt Rate - Afr Amer 10 mL/min (>60); Estimated Creatinine Clearance 19.19 ml/min; Glucose 85 mg/dL (74-106); Magnesium 1.8 mg/dL (1.6-2.6); Potassium 4.8 mmol/L (3.5-5.1); Sodium Level 136 mmol/L (136-145)
[2023-09-13] MEDS: proCHLORPERazine 10 MG/2 ML Vial 5 MG IV (18:26)
--- NOTE | 2023-09-13 19:10 | NURSING ---
iv heparin currently not on unit for pt adm.
[2023-09-13 19:53] LABS: Erythrocyte Sedimentation Rate 48 mm/hr (0-30)
[2023-09-13 20:01] LABS: Partial Thromboplast Time 41.8 Seconds (24.1-36.2)
[2023-09-13] MEDS: HEPARIN/D5w 25,000 UNITS 25,000 UNITS/250 ML IV.SOLN. 20 UNITS CONT INF (20:27)
[2023-09-13] MEDS: Acetaminophen 325 MG Tablet 650 MG PO (20:41)
[2023-09-13] MEDS: Buprenorphine HCl 2 MG TAB.SUBL SL (20:41)
[2023-09-13] MEDS: Magnesium Chloride 64 MG Delay Rel.Tablet 128 MG PO (20:41)
[2023-09-13] MEDS: QUEtiapine 25 MG Tablet PO (20:42)
[2023-09-13] MEDS: Pantoprazole Sodium 40 MG Tablet PO (20:42)
[2023-09-13 21:16] LABS: Bacteria 0 SEEN /hpf (None Seen); Mucous, Urine 0 SEEN /hpf (<or=2+)
[2023-09-13 21:17] VITALS: PULSE 82; RESP 18; O2SAT 98
[2023-09-13 21:24] LABS: Color, Urine Yellow (Yellow); Glucose, Dipstick Normal (Normal); Ketone-Dipstick Negative (Negative); Leukocyte Esterase-Dipstick 500 /ul (Negative); Nitrite-Dipstick Negative (Negative); Occult Blood-Urine 50 /ul (Negative); Protein-Dipstick 100 mg/dl (Negative); Specific Gravity, Urine 1.005 (1.002-1.030); Urine Bilirubin Dipstick Negative (Negative); Urine Clarity Sl. Cloudy (Clear); Urine Urobilinogen Normal (Normal)
[2023-09-13 21:26] VITALS: BP 129/70; PULSE 82; RESP 18; TEMP 36.8; O2SAT 98
[2023-09-13 21:31] LABS: Amorphous Sediment 1+ PHOS; Red Blood Cells-Urine 0-5 SEEN /hpf (0-5); Squamous Epithelial Cells - UA 0-5 SEEN /hpf (5-10); White Blood Cells 10-25 SEEN /hpf (0-5)
[2023-09-13 21:32] LABS: Protein, Urine (Random) 84.3 mg/dL (<11.9); Protein:Creat Ratio 3099 mg/g CRE (0-200)
[2023-09-13 21:34] LABS: Amphetamine Urine VISTA NEGATIVE (<1000 ng/mL); Barbiturate Urine VISTA NEGATIVE (< 200 ng/mL); Benzodiazepine Urine VISTA NEGATIVE (< 200 ng/mL); Cocaine Urine VISTA NEGATIVE (< 300 ng/mL); Ecstacy Urine VISTA POSITIVE (< 500 ng/mL); Methadone Urine VISTA NEGATIVE (< 300 ng/mL); PCP Urine VISTA NEGATIVE (< 25 ng/mL); THC Urine VISTA NEGATIVE (< 50 ng/mL); Vista UDS pH Range 6
[2023-09-13 21:35] LABS: Urea Nitrogen, Urine 82 mg/dL (NO RANGE EST.); Urine Chloride 49 mmol/L (Not Establ.); Urine Sodium 53 mmol/L (Not Establ.)
[2023-09-13 21:37] LABS: Osmolality, Urine 160 mOsm/KG
--- NOTE | 2023-09-13 21:59 | NURSING ---
PT SLEEPING SOUNDLY
[2023-09-14] VITALS (9 sets, daily range): BP systolic 114–148; BP diastolic 61–91; PULSE 74–87; RESP 16–20; TEMP 36.5–37.1; O2SAT 95–98; BMI 58.6
[2023-09-14] MEDS: Ampicillin/Sulbactam 3 GM in 0.9% Normal Saline (100mL MB+) 100 ML IV ×3 (00:28→22:05)
[2023-09-14] MEDS: 0.9% Normal Saline (1000mL) 1,000 ML 50 ML IV (03:40)
[2023-09-14 04:46] LABS: Absolute Lymphocyte Count 1.82 X10^3/uL (0.83-4.51); Absolute Neutrophil Count 4.4 X10^3/uL (2.0-7.7); Basophil# 0.04 X10^3/uL; Basophil% 0.5 % (0-1); Eosinophil# 0.42 X10^3/uL; Eosinophils% 5.6 % (0-5); Hematocrit 24.6 % (37-47); Hemoglobin 6.9 g/dL (12.0-15.0); Lymphocyte # 1.82 X10^3/ul (0.83-4.51); Lymphocyte % 24.5 % (19-41); Mean Corpuscular Hgb 23.5 pg (27.0-32.0); Mean Corpuscular Volume 83.7 fL (81-99); Monocyte# 0.77 X10^3/uL; Monocyte% 10.3 % (0-10); NRBC Flagged by Analyzer 0 % (0-5); Neutrophil # 4.37 X10^3/uL (2.7-7.7); Neutrophil % 58.8 % (47-70); POSITIVE MORPHOLOGY YES; Platelet Count 507 K/mm3 (150-450); RBC Distribution Width CV 20.4 % (11.6-14.6); RBC Distribution Width SD 61.4 fl (35.1-43.9); Red Blood Count 2.94 M/mm3 (4.2-5.4); White Blood Count 7.4 K/mm3 (4.4-11.0)
[2023-09-14 04:58] LABS: Differential Indicated SCAN CRITERIA MET
[2023-09-14 05:03] LABS: Anion Gap 7 (5-15); BUN 36 mg/dL (7-18); BUN/Creat Ratio 5.7 RATIO (10-20); Calcium,Total 8.3 mg/dL (8.5-10.1); Chloride 103 mmol/L (98-107); Creatinine, Serum 6.27 mg/dL (0.55-1.02); EST Glomerular Filtration Rate 7 mL/min (>60); Est Glom Filt Rate - Afr Amer 9 mL/min (>60); Estimated Creatinine Clearance 16.86 ml/min; Glucose 74 mg/dL (74-106); Sodium Level 136 mmol/L (136-145)
[2023-09-14 05:32] LABS: International Normalized Ratio 1.3; Prothrombin Time (Protime)PT. 15.9 SECONDS (11.7-14.9)
--- NOTE | 2023-09-14 06:20 | PCM.HOSP.N ---
Hospitalist Note AM hgb 6.9, typical of her vascillations. Will order 1 u PRBC and repeat HH following.
[2023-09-14] MEDS: Acetaminophen 325 MG Tablet 650 MG PO (06:41)
[2023-09-14 06:52] LABS: Hematocrit 25.1 % (37-47); Hemoglobin 7.2 g/dL (12.0-15.0)
--- NOTE | 2023-09-14 07:17 | NURSING ---
pt c/o SOB-is talking on the phone to her daughter and getting very anxious-pt encouraged to take some deep breaths-pt recently medicated w/tylenol for left knee pain-pt also given ice pack for left knee-see vitals-
[2023-09-14 07:36] LABS: Anisocytosis 2+; Platelet Estimate SLT INC (ADEQ)
--- NOTE | 2023-09-14 07:49 | PN.HOSP_ITS ---
Reason for Visit Reason for Visit: Diagnoses Type 2 diabetes mellitus without complications (09/13/23) Cellulitis, unspecified (09/13/23) Rheumatoid arthritis, unspecified (09/13/23) Acute kidney failure, unspecified (09/13/23) Objective Data Objective Data Vital Signs: Vital Signs Temp Pulse Resp BP Pulse Ox O2 Del Method 97.9 F 87 20 H 126/66 H 95 Room Air 09/14/23 03:47 09/14/23 07:16 09/14/23 07:16 09/14/23 03:47 09/14/23 07:16 09/14/23 07:16 Oxygen Delivery Method Room Air Weight: 364 lb 13.84 oz Body Mass Index (BMI) 58.6 Intake & Output: Intake and Output for Last 24 Hours 09/12/23 09/13/23 09/14/23 23:59 23:59 23:59 Intake Total 792 / 792 645 / 645 Output Total 50 / 50 50 / 50 Balance 742 / 742 595 / 595 Lab / Micro Data 09/14/23 06:41 09/14/23 04:26 Labs: Laboratory Results - last 24 hr 09/13/23 17:19: POC Glucose 79 09/13/23 17:25: Sodium 136, Potassium 4.8, Chloride 105, Carbon Dioxide 21.0, Anion Gap 10, BUN 34 H, Creatinine 5.51 H, Estim Creat Clear Calc 19.19, Est GFR (MDRD) Af Amer 10 L, Est GFR (MDRD) Non-Af 9 L, BUN/Creatinine Ratio 6.2 L, Glucose 85, Calcium 8.3 L, Magnesium 1.8 09/13/23 19:37: ESR 48 H, APTT 41.8 H, C-React Prot Ext Range 132.00 H, Rheumatoid Factor 248.0 H 09/13/23 21:10: Urine Color Yellow, Urine Clarity Sl. Cloudy, Urine pH 7.0, Ur Specific [place] 1.005, Urine Protein 100 H, Urine Glucose (UA) Normal, Urine Ketones Negative, Urine Occult Blood 50 H, Urine Nitrite Negative, Urine Bilirubin Negative, Urine Urobilinogen Normal, Ur Leukocyte Esterase 500 H, Urine RBC 0-5 SEEN, Urine WBC 10-25 SEEN, Ur Squamous Epith Cells 0-5 SEEN, Amorphous Sediment 1+ PHOS, Urine Bacteria 0 SEEN, Urine Mucus 0 SEEN, Urine Osmolality 160, U Random Total Protein 84.3 H, Ur Random Sodium 53, Urine Creatinine 27.40 09/13/23 21:10: Urine Creatinine 27.20, Protein/Creatinin Ratio 3099 H, Urine Potassium 10.0, Urine Chloride 49, Urine Urea Nitrogen 82, Urine Opiates Screen NEGATIVE, Urine Methadone Screen NEGATIVE, Ur Barbiturates Screen NEGATIVE, Ur Phencyclidine Scrn NEGATIVE, Ur Amphetamines Screen NEGATIVE, MDMA (Ecstasy) Screen POSITIVE H, U Benzodiazepines Scrn NEGATIVE, Urine Cocaine Screen NEGATIVE, U Cannabinoids Screen NEGATIVE, Ur Drug Screen Comment 09/14/23 04:26: WBC 7.4, RBC 2.94 L, Hgb 6.9 L, Hct 24.6 L, MCV 83.7, MCH 23.5 L , MCHC 28.0 L, RDW Std Deviation 61.4 H, RDW Coeff of Chepe 20.4 H, Plt Count 507 H, MPV 9.0, Immature Gran % (Auto) 0.300, Neut % (Auto) 58.8, Lymph % (Auto) 24.5, Park % (Auto) 10.3 H, Eos % (Auto) 5.6 H, Baso % (Auto) 0.5, Absolute Neuts (auto) 4.4, Absolute Lymphs (auto) 1.82, Nucleated RBC % 0, Platelet Estimate SLT INC, Anisocytosis 2+, PT 15.9 H, INR 1.3, APTT 59.0 H, Sodium 136, Potassium 4.0, Chloride 103, Carbon Dioxide 26.0, Anion Gap 7, BUN 36 H, Creatinine 6.27 H, Estim Creat Clear Calc 16.86, Est GFR (MDRD) Af Amer 9 L, Est GFR (MDRD) Non-Af 7 L, BUN/Creatinine Ratio 5.7 L, Glucose 74, Calcium 8.3 L 09/14/23 06:41: Hgb 7.2 L, Hct 25.1 L, Crossmatch See Detail Physical Exam Narrative Seen and examined. Patient denies any loss of fluid including diarrhea or vomiting, GI bleed or external hemorrhage. Was discharged with normal creatinine came back with JAGDISH creatinine about 5.0 Physical exam General: Alert, Oriented x3, Cooperative, Morbid obesity BMI 58.9 kg/m?. HEENT: Atraumatic, PERRLA, EOMI, Normocephalic Oral: Oral mucosa moist. No Gingival or Mucosal Lesions/ Ulcerations Neck: Supple, No JVD, Negative Carotid Bruits Chest wall/Lungs: Air entry diminished in bilateral lung bases. No crepitation/rhonchi Cardiovascular: Regular rate, Regular Rhythm, Normal S1, Normal S2, No M/G/R Abdomen: Bowel Sounds Present, Soft, Non Tender, Non-Distended : Kamara catheter, pinkish urine. Oliguria. No dysuria. No renal angle tenderness. No suprapubic tenderness. Extremities: mild bilateral pitting. Edema, Capillary Refill Less than 3 Seconds Skin: No rashes, No breakdown Musculoskeletal: No Tenderness to Palpation of Joints or Extremities. Chronic degenerative arthritis. Neurological: Cranial nerves II-XII grossly intact, DTR 2+/4. No acute focal neurological deficit. Psych/Mental Status: Normal Affect, Appropriate. Flat affect. History of anxiety and depression seen and examined. Assessment & Plan Assessment/Plan (1) JAGDISH (acute kidney injury): (2) Cellulitis: (3) Rheumatoid arthritis: (4) Diabetes mellitus, type 2: PLAN: Plan This is 52-year-old female with multiple comorbidities and multiple medications is directly admitted from [facility] ED when she came there with no urine output for 24 hours with creatinine 5.0, safety of JAGDISH. #Acute kidney failure -Kidney function here 09/11 with creatinine of 0.88, on 09/12 at outlying facility was 4.6 and trended up to 4.97 09/14: Creatinine went up 6.27, BUN 36 BUNs/creatinine ratio 5.7. Electrolytes in normal range. Anion gap 7, bicarb 26. Patient not showing signs of confusion or uremia. Cyber Reverse Engineer consulted and discussed in the morning. Kamara catheter was inserted and shows 200 mL pinkish urine. -Reportedly renal and bladder ultrasound only with 30 mL in bladder otherwise no significant abnormalities UA here shows WBC 10-25 cells, LE 500, nitrite negative. Urine osmolality 160. Total protein 84, random sodium 53 creatinine 27.4. U tox positive of ecstasy. -ESR and CRP elevated. Autoimmune markers pending. RF [id number] # Left lower extremity cellulitis -Discharged yesterday on Augmentin Transition to IV antibiotics while admitted # History of DVT/PE with MTHFR mutation transition from Xarelto to heparin drip in the event patient needs something like kidney biopsy and given kidney function would not want to give Xarelto # Acute severe anemia on baseline chronic anemia -Hgb 8.3, was 7.6 on discharge -No acute evidence of bleeding at this time 09/14: Hemoglobin dropped to 6.9. 1 PRBC transfusion ordered. #GERD -Continue PPI #Type 2 diabetes mellitus -Glucose checks and sliding scale insulin Glucose 74 in BMP. #Morbid obesity -BMI 58.9 kg/m? -Complicates treatment, prognosis, outcomes -Recommend weight loss and lifestyle changes # Anxiety and depression -Patient on multiple medications, specifically she is on an SNRI duloxetine with an SSRI Luvox, these are contraindicated together so should not be given together, will be holding duloxetine either way given her kidney function. Hold BuSpar for her creatinine clearance less than 5. There is significant drug drug interaction with Wellbutrin and SSRI, Luvox and tizanidine which increases the chance of serotonin syndrome with a strong drug drug interaction therefore contraindicated. so we will continue fluvoxamine, will also have to hold BuSpar due to her kidney function Discontinue Wellbutrin. Discontinue tizanidine. -Pt also on rexulti # Chronic back pain -PT/OT -Supportive care -Continue home medications # RA -Patient on 10 mg of prednisone daily # RLS -On pramipexole and ropinirole but will hold due to kidney function #DVT ppx: heparin gtt Total time of the visit including total time spent in counseling or coordination of care, (more than 50% of the total time, spent in obtaining medical information from nurses and other ancillary care providers,explaining to the patient about labs, imaging, diagnosis and management of active complex medical conditions), discussion with the travel physical therapist, clinical update including all differential given to patient and her mother on the phone, including that patient might need dialysis although does not seem emergent, review of labs and imaging is 40 minutes. Laboratory Results 09/13/23 17:19: POC Glucose 79 09/13/23 17:25: Sodium 136, Potassium 4.8, Chloride 105, Carbon Dioxide 21.0, Anion Gap 10, BUN 34 H, Creatinine 5.51 H, Estim Creat Clear Calc 19.19, Est GFR (MDRD) Af Amer 10 L, Est GFR (MDRD) Non-Af 9 L, BUN/Creatinine Ratio 6.2 L, Glucose 85, Calcium 8.3 L, Magnesium 1.8 09/13/23 19:37: ESR 48 H, APTT 41.8 H, C-React Prot Ext Range 132.00 H, Rheumatoid Factor 248.0 H 09/13/23 21:10: Urine Color Yellow, Urine Clarity Sl. Cloudy, Urine pH 7.0, Ur Specific [place] 1.005, Urine Protein 100 H, Urine Glucose (UA) Normal, Urine Ketones Negative, Urine Occult Blood 50 H, Urine Nitrite Negative, Urine Bilirubin Negative, Urine Urobilinogen Normal, Ur Leukocyte Esterase 500 H, Urine RBC 0-5 SEEN, Urine WBC 10-25 SEEN, Ur Squamous Epith Cells 0-5 SEEN, Amorphous Sediment 1+ PHOS, Urine Bacteria 0 SEEN, Urine Mucus 0 SEEN, Urine Osmolality 160, U Random Total Protein 84.3 H, Ur Random Sodium 53, Urine Creatinine 27.40 09/13/23 21:10: Urine Creatinine 27.20, Protein/Creatinin Ratio 3099 H, Urine Potassium 10.0, Urine Chloride 49, Urine Urea Nitrogen 82, Urine Opiates Screen NEGATIVE, Urine Methadone Screen NEGATIVE, Ur Barbiturates Screen NEGATIVE, Ur Phencyclidine Scrn NEGATIVE, Ur Amphetamines Screen NEGATIVE, MDMA (Ecstasy) Screen POSITIVE H, U Benzodiazepines Scrn NEGATIVE, Urine Cocaine Screen NEGATIVE, U Cannabinoids Screen NEGATIVE, Ur Drug Screen Comment 09/14/23 04:26: WBC 7.4, RBC 2.94 L, Hgb 6.9 L, Hct 24.6 L, MCV 83.7, MCH 23.5 L , MCHC 28.0 L, RDW Std Deviation 61.4 H, RDW Coeff of Chepe 20.4 H, Plt Count 507 H, MPV 9.0, Immature Gran % (Auto) 0.300, Neut % (Auto) 58.8, Lymph % (Auto) 24.5, Park % (Auto) 10.3 H, Eos % (Auto) 5.6 H, Baso % (Auto) 0.5, Absolute Neuts (auto) 4.4, Absolute Lymphs (auto) 1.82, Nucleated RBC % 0, Platelet Monica mate SLT INC, Anisocytosis 2+, PT 15.9 H, INR 1.3, APTT 59.0 H, Sodium 136, Potassium 4.0, Chloride 103, Carbon Dioxide 26.0, Anion Gap 7, BUN 36 H, Creatinine 6.27 H, Estim Creat Clear Calc 16.86, Est GFR (MDRD) Af Amer 9 L, Est GFR (MDRD) Non-Af 7 L, BUN/Creatinine Ratio 5.7 L, Glucose 74, Calcium 8.3 L, Cycl Citrul Peptide IgG Pending, CHIRAG Screen Pending, c-ANCA Antibody Pending, p-ANCA Antibody Pending, ADITI-1 Antibody Pending, SS-A/Ro IgG Antibody Pending, SS-B/La IgG Antibody Pending, Sm (Garvey) Antibody Pending, AIRPLANE G[employer] TANK LINER ASSEMBLER Antibody Pending, Scl-70 Scleroderma Ab Pending, Double Strand DNA Ab Pending, Centromere B Antibody Pending 09/14/23 06:41: Hgb 7.2 L, Hct 25.1 L, Blood Type O POSITIVE, Antibody Screen NEGATIVE, Crossmatch See Detail 09/14/23 08:40: APTT 63.4 H, Blood Type O POSITIVE, Antibody Screen NEGATIVE, Crossmatch See Detail 09/14/23 14:19: APTT 69.3 H Charges/Coding Visit Charges Inpatient E&M: 55132 Subs Hosp L3
--- NOTE | 2023-09-14 08:23 | NURSING ---
pt hands said nurse her red blood band bracelet and states i took it off, it was too tight.' Blood bank notified
[2023-09-14] MEDS: Pantoprazole Sodium 40 MG Tablet PO ×2 (08:35→22:06)
[2023-09-14] MEDS: Buprenorphine HCl 2 MG TAB.SUBL SL ×2 (08:36→22:05)
[2023-09-14] MEDS: predniSONE 5 MG Tablet 10 MG PO (08:36)
[2023-09-14] MEDS: fluvoxaMINE Maleate 50 MG Tablet 100 MG PO (08:37)
[2023-09-14] MEDS: HEPARIN/D5w 25,000 UNITS 25,000 UNITS/250 ML IV.SOLN. 20 UNITS CONT INF ×2 (08:43→21:35)
[2023-09-14 09:03] LABS: Partial Thromboplast Time 63.4 Seconds (24.1-36.2)
[2023-09-14] MEDS: busPIRone 5 MG Tablet 10 MG PO (11:13)
[2023-09-14] MEDS: Atenolol 25 MG Tablet PO (11:13)
[2023-09-14] MEDS: Ferrous Sulfate 325 MG Tablet PO (11:15)
[2023-09-14] MEDS: 0.9% Saline Lock 10 ML Syringe IV (11:15)
[2023-09-14] MEDS: 0.9% Normal Saline (500mL Bag) 500 ML 15 ML IV (11:30)
[2023-09-14] MEDS: DULoxetine Hcl 30 MG Capsule PO (11:47)
--- NOTE | 2023-09-14 12:46 | CASEMGMT ---
ZENON ROMAN readmission note: Index admission: Admitted 09/10/23 w/cellulitis and vertigo. Pt d/c'd home on PO atb's 09/12/23 and [facility] set up w/SOC slated for either Fri or Sat. Following is the note from ZENON Mills on 09/11/23: ZENON ROMAN chart review: Patient was admitted 08/28-09/03/23 for recurrent cellulitis and discharge to [facility] for additional therapy. Patient was also admitted 08/17-08/26/23 for SIRS and was discharged to home with [facility] and IV ATBs. See assessment from 08/19/23. ZENON ROMAN in to discuss readmission and discharge plans. Patient states she was at [facility] for 3 days and discharge to home due to it being so dirty. No HHC was setup for patient prior to discharge. Patient states she was taking medications as prescribed. Patient states she was to see her PCP tomorrow. Patient states she returned to [facility] ED after eating chicken and feeling nauseated and dizzy. Patient states she was physically doing well prior to feeling sick. Patient wishes to discharge home with [facility]. Patient denied further needs at discharge. ZENON ROMAN called and made referral to [facility], awaiting acceptance . Current admission: Direct admit from [facility] ED 09/13/23 w/dx of JAGDISH. ZENON ROMAN to room to discuss readmission and discharge plans. Pt sitting up in chair in room. Awake/alert/oriented. Introduced self and role. Pt states she did get the atb @ [facility] that was prescribed @ d/c, but ended up in [facility] ED before she was even able to start on it. She went to the ED d/t she states she was unable to void. She states she has all her other medications. She states she would like to go home @ discharge and would still like [facility] @ and declines wanting list of other [facility] agencies. She states she was doing her own wound care and plans to continue this. She denies having other discharge planning needs/concerns. She has an upcoming appt w/Dr Dubon for 09/16 @ 3 PM and is aware to cancel this if she has not discharged home by then and to ask for assistance from [facility] if she needs further assitance. She would like to get any new medications @ discharge from [facility]/[place]. Call placed to [facility] and she was notified of pt's admission to [facility]. She states they do no not need a new referral but they do need new [facility] order. Order placed at this time.
[2023-09-14] MEDS: Pramipexole Di-HCl 0.5 MG Tablet 0.75 MG PO ×2 (13:57→22:06)
[2023-09-14 14:45] LABS: Partial Thromboplast Time 69.3 Seconds (24.1-36.2)
--- NOTE | 2023-09-14 18:53 | CON.PCM.RE_ITS ---
Assessment & Plan Assessment/Plan (1) JAGDISH (acute kidney injury): PLAN: Plan Impression/Plan: The patient is a 52-year-old woman with past history of type 2 diabetes mellitus, VTE with MTHFR mutation/lupus anticoagulation disorder on rivaroxaban, hypertension, rheumatoid arthritis, KIKI, chronic back pain, anemia, depression, and morbid obesity. Patient was admitted to the hospital on 09/13/2023 with JAGDISH. Acute kidney injury. The patient has had a significant and rapid decline in renal function. Serum creatinine has increased from 0.88 mg/dL on 09/11/2023 up to 6.27 mg/dL today. Urinalysis revealed pyuria without significant RBCs. There is 2+ proteinuria. Urine protein to creatinine ratio is 3.1 g/g. The patient has been oliguric since arrival to the hospital. Unclear what has caused JAGDISH. Differential diagnosis is broad at this point. There has been no documented prolonged hypotension to explain possible ischemic ATN. Although AIN from antibiotic (patient was discharged on Augmentin) is possible, it is improbable to see a severe, sudden loss of renal function from AIN. Apparently, ultrasound of the kidneys were done at [facility] on 09/12/2023. Based on the ER evaluation note, there was no hydronephrosis on ultrasound. I would like to be able to see the renal ultrasound report myself. If we cannot find the actual report, I would recommend rechecking renal imaging here at our hospital. I will check serologies including CHIRAG, ANCAs, complements since there is significant proteinuria. We will also check CPKs. Ultimately, the patient may need a kidney biopsy for diagnosis. Fortunately, there is no hyperkalemia or significant acidosis. The patient does not appear to be volume overloaded. Therefore, there is no need for kidney replacement therapy tonight. Continue IV fluid for now. However, if there is no improvement in renal function in next 24 hours, I would stop IV fluid. The patient does not appear to be volume depleted. HPI Consult Data Date of Consult: 09/14/23 HPI Narrative Reason for Consultation: Acute kidney injury HPI Narrative: The patient is a 52-year-old woman with past history of type 2 diabetes mellitus, VTE with MTHFR mutation/lupus anticoagulation disorder on rivaroxaban, hypertension, rheumatoid arthritis, KIKI, chronic back pain, restless leg syndrome, anemia, depression, and morbid obesity. Patient was admitted to the hospital on 09/13/2023 with JAGDISH. The patient was recently admitted to hospital between 09/10/2023 until 09/12/2023 with left lower extremity cellulitis. Baseline renal function has been normal. Serum creatinine was 0.88 mg/dL on 09/11/2023. The patient was discharged to rehabilitation on 09/12/2023. The patient presented initially to [facility] on 09/12/2023 because of sudden loss of urine output for 24 hours. She was evaluated in ED at [facility] on 09/12/2023 and was found to have serum creatinine of 4.37 mg/dL. Renal ultrasound was apparently done in ED at [facility], and ther e was no evidence of obstruction or hydronephrosis. However, I do not have access to the actual renal ultrasound report. Serum creatinine has increased to 5.51 mg/dL on presentation to [facility] on 09/13/2023. Creatinine has increased further to 6.27 mg/dL today. The patient denies chest pain, shortness of breath, or increasing edema. The patient does have occasional nausea without vomiting. She has dry heaves. Appetite has decreased. There has been no diarrhea. She is constipated. The patient has not been using any NSAIDs. Prior to onset of oliguria, the patient denies gross hematuria. There is no joint pain or swelling. There is no new rashes. [facility] Medical History (Updated 09/13/23 @ 16:[address] 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 current use of anticoagulant Lupus anticoagulant disorder Morbid obesity MTHFR mutation Obesity KIKI (obstructive sleep apnea) Other complications of skin graft (allograft) (autograft) Pleural effusion, left Pulmonary embolism Rheumatoid arthritis Rheumatoid arthritis RLS (restless legs syndrome) Sinus tachycardia Home Medications bupropion HCl 300 mg 24 hr tablet, extended release 300 mg PO DAILY mental health 08/25/18 [History Last Taken 08/28/23] ropinirole 2 mg tablet,extended release 24 hr 2 mg PO QHS restless legs 08/25/18 [History Last Taken 09/20/22] rivaroxaban 20 mg tablet (Xarelto) 20 mg PO DAILY blood thinner 06/01/22 [History Last Taken 08/27/23] Probiotic 1 ea PO/SL DAILY IMMUNE HEALTH 09/21/22 [History Last Taken 08/28/23] atenolol 50 mg tablet 50 mg PO DAILY HEART 09/21/22 [History Last Taken 08/28/23] biotin 1 ea PO/SL DAILY SUPPLEMENT 09/21/22 [History Last Taken 08/28/23] brexpiprazole 1 mg tablet (Rexulti) 1 mg PO DAILY MENTAL HEALTH 09/21/22 [History Last Taken 08/28/23] buspirone 10 mg tablet 10 mg PO DAILY ANXIETY 09/21/22 [History Last Taken 08/28/23] buspirone 10 mg tablet 20 mg PO QHS ANXIETY 09/21/22 [History Last Taken 08/27/23] fluvoxamine 100 mg tablet 100 mg PO DAILY MENTAL HEALTH 09/21/22 [History Last Taken 08/28/23] prednisone 5 mg tablet 10 mg PO DAILY RA 09/21/22 [History Last Taken 08/28/23] pantoprazole 40 mg tablet,delayed release 40 mg PO BID reflux #60 tabs 10/26/22 [Rx Last Taken 08/28/23] sucralfate 1 gram tablet 1 g PO Q6H reflux #120 tabs 10/26/22 [Rx Last Taken 08/28/23] tocilizumab 162 mg/0.9 mL subcutaneous syringe (Actemra) 162 mg subcut .weekly immunosuppressant 03/18/23 [History Last Taken 08/28/23] promethazine 25 mg tablet 25 mg PO Q6H PRN nausea and vomiting #120 tabs 04/11/23 [Rx Last Taken Unknown] duloxetine 30 mg capsule,delayed release 30 mg PO DAILY mental health 06/29/23 [History Last Taken 08/28/23] quetiapine 50 mg tablet 50 mg PO QHS sleep 06/29/23 [History Last Taken 08/27/23] semaglutide 0.25 mg or 0.5 mg (2 mg/3 mL) subcutaneous pen injector (Ozempic) 0.5 mg subcut QWEEK diabetes 06/29/23 [History Last Taken Unknown] tizanidine 4 mg tablet 4 mg PO QHS spasms 06/29/23 [History Last Taken Unknown] triamcinolone acetonide 0.025 % topical cream 1 applic topical BID PRN celiac rash 06/29/23 [History Last Taken Unknown] pramipexole 0.75 mg tablet 0.75 mg PO TID restless leg 08/17/23 [History Last Taken Unknown] acetaminophen 325 mg tablet 1,000 mg (3.0769 x 325 mg) PO Q8H PRN PRN Fever, pain 1-10/10 #0 tabs 08/23/23 [Rx Last Taken 09/14/23] buprenorphine HCl 150 mcg buccal film (Belbuca) 150 mcg buccal Q12H pain relief 3 days #6 ea 08/23/23 [Rx Last Taken Unknown] ferrous sulfate 325 mg (65 mg iron) tablet (FeroSul) 325 mg PO QODAY@1200 anemia #0 tabs 08/23/23 [Rx Last Taken 08/27/23] quetiapine 25 mg tablet 25 mg PO .at bedtime sleep 08/28/23 [History Last Taken 08/27/23] amoxicillin 875 mg-potassium clavulanate 125 mg tablet 1 tab PO BID infection #10 tabs 09/12/23 [Rx Last Taken Unknown] Allergy/AdvReac Type Severity Reaction Status Date / Time adhesive tape AdvReac Rash Verified 06/29/23 09:22 Family History (Updated 09/10/23 @ 21:[address] Berna Cisneros MD) Mother Cancer Lung CA w/ concurrent tobacco use. Heart disease Father No problems noted. Surgical History History of fasciotomy History of hysterectomy History of total bilateral knee replacement S/P pericardial window creation Social History household members: family Smoking Status: Never smoker alcohol intake: never substance use type: does not use ROS ROS Narrative As per HPI. Otherwise noncontributory. Physical Exam Narrative General: Alert and oriented x3, NAD. HEENT: Normocephalic, atraumatic. Mucous membrane moist without erythema. PERRLA, EOMI. Hearing is intact. Neck: Supple, no JVD. Trachea is midline. No thyromegaly or lymphadenopathy. Cardiovascular: Normal S1, S2. No rubs, murmurs, or gallops. Respiratory: Lungs are clear to auscultation bilaterally. No wheezing, rhonchi, or rales. Abdomen: Obese, normal bowel sounds, soft, nontender, no guarding or rebound, no organomegaly. Extremities: No clubbing, cyanosis, or edema. Musculoskeletal: Full passive range of motion, no joint swelling. Psychiatric: Normal mood and affect. Skin: Warm and dry, no rash. Neurologic: Cranial nerve II to XII are grossly intact. No focal neurologic deficits. Lab / Micro Data 09/14/23 06:41 09/14/23 04:26 Labs: Laboratory Results - last 24 hr 09/13/23 19:37: ESR 48 H, APTT 41.8 H, C-React Prot Ext Range 132.00 H, Rheumatoid Factor 248.0 H 09/13/23 21:10: Urine Color Yellow, Urine Clarity Sl. Cloudy, Urine pH 7.0, Ur Specific [place] 1.005, Urine Protein 100 H, Urine Glucose (UA) Normal, Urine Ketones Negative, Urine Occult Blood 50 H, Urine Nitrite Negative, Urine Bilirubin Negative, Urine Urobilinogen Normal, Ur Leukocyte Esterase 500 H, Urine RBC 0-5 SEEN, Urine WBC 10-25 SEEN, Ur Squamous Epith Cells 0-5 SEEN, Amorphous Sediment 1+ PHOS, Urine Bacteria 0 SEEN, Urine Mucus 0 SEEN, Urine Osmolality 160, U Random Total Protein 84.3 H, Ur Random Sodium 53, Urine Creatinine 27.40 09/13/23 21:10: Urine Creatinine 27.20, Protein/Creatinin Ratio 3099 H, Urine Potassium 10.0, Urine Chloride 49, Urine Urea Nitrogen 82, Urine Opiates Screen NEGATIVE, Urine Methadone Screen NEGATIVE, Ur Barbiturates Screen NEGATIVE, Ur Phencyclidine Scrn NEGATIVE, Ur Amphetamines Screen NEGATIVE, MDMA (Ecstasy) Screen POSITIVE H, U Benzodiazepines Scrn NEGATIVE, Urine Cocaine Screen NEGATIVE, U Cannabinoids Screen NEGATIVE, Ur Drug Screen Comment 09/14/23 04:26: WBC 7.4, RBC 2.94 L, Hgb 6.9 L, Hct 24.6 L, MCV 83.7, MCH 23.5 L , MCHC 28.0 L, RDW Std Deviation 61.4 H, RDW Coeff of Chepe 20.4 H, Plt Count 507 H, MPV 9.0, Immature Gran % (Auto) 0.300, Neut % (Auto) 58.8, Lymph % (Auto) 24.5, [place] % (Auto) 10.3 H, Eos % (Auto) 5.6 H, Baso % (Auto) 0.5, Absolute Neuts (auto) 4.4, Absolute Lymphs (auto) 1.82, Nucleated RBC % 0, Platelet Estimate SLT INC, Anisocytosis 2+, PT 15.9 H, INR 1.3, APTT 59.0 H, Sodium 136, Potassium 4.0, Chloride 103, Carbon Dioxide 26.0, Anion Gap 7, BUN 36 H, Creatinine 6.27 H, Estim Creat Clear Calc 16.86, Est GFR (MDRD) Af Amer 9 L, Est GFR (MDRD) Non-Af 7 L, BUN/Creatinine Ratio 5.7 L, Glucose 74, Calcium 8.3 L 09/14/23 06:41: Hgb 7.2 L, Hct 25.1 L, Blood Type O POSITIVE, Antibody Screen NEGATIVE, Crossmatch See Detail 09/14/23 08:40: APTT 63.4 H, Blood Type O POSITIVE, Antibody Screen NEGATIVE, Crossmatch See Detail 09/14/23 14:19: APTT 69.3 H
[2023-09-14] MEDS: proCHLORPERazine 10 MG/2 ML Vial 5 MG IV (19:36)
--- NOTE | 2023-09-14 20:40 | CT_ITS ---
STUDY: CT ABDOMEN WITHOUT CONTRAST REASON FOR EXAM: Female, 52 years old. acute kidney injury RADIATION DOSAGE (If Supplied By Facility): CTDIvol = ( 34.45 ) mGy, DLP = ( 1155.16 ) mGycm TECHNIQUE: Transaxial images were obtained without intravenous contrast, and without oral contrast. Sagittal and coronal images were reconstructed. Individualized dose optimization techniques were used for this CT. COMPARISON: 03/11/2023 FINDINGS: Atelectasis in the right more than left lung base. The visualized portions of the heart are within normal limits. There is decreased attenuation of the liver consistent with steatosis. No hepatic masses. Normal gallbladder and extrahepatic biliary system. Normal spleen. Normal pancreas. Normal bilateral adrenal glands. Normal right kidney. Normal left kidney. Moderate-sized hiatal hernia. Stable fluid adjacent to the lower esophagus. No dilated small bowel. No colon wall thickening. Normal abdominal aorta. Normal inferior vena cava. Normal retroperitoneum. Normal abdominal wall. Normal osseous structures. CT/Abdomen without IV Contrast IMPRESSION: No hydronephrosis. Electronically Signed: Jose Elias Hull MD (Brooks) at 22:02 EST Reading Location ID and State: [facility] / [place] , Service support ,
[2023-09-14 21:59] LABS: Absolute Lymphocyte Count 1.51 X10^3/uL (0.83-4.51); Absolute Neutrophil Count 6.8 X10^3/uL (2.0-7.7); Basophil# 0.04 X10^3/uL; Basophil% 0.4 % (0-1); Eosinophil# 0.09 X10^3/uL; Hematocrit 29.4 % (37-47); Hemoglobin 8.6 g/dL (12.0-15.0); Lymphocyte # 1.51 X10^3/ul (0.83-4.51); Lymphocyte % 16.4 % (19-41); Mean Corp Hgb Conc 29.3 g/dL (32-36); Mean Corpuscular Volume 82.1 fL (81-99); Mean Platelet Vol. 9.7 fl (6.2-12.0); Monocyte# 0.72 X10^3/uL; Monocyte% 7.8 % (0-10); NRBC Flagged by Analyzer 0 % (0-5); Neutrophil % 74.1 % (47-70); Platelet Count 566 K/mm3 (150-450); RBC Distribution Width CV 19.8 % (11.6-14.6); RBC Distribution Width SD 58.7 fl (35.1-43.9); Red Blood Count 3.58 M/mm3 (4.2-5.4); White Blood Count 9.2 K/mm3 (4.4-11.0)
[2023-09-14] MEDS: QUEtiapine 25 MG Tablet PO (22:07)
[2023-09-14] MEDS: QUEtiapine 25 MG Tablet 50 MG PO (22:07)
[2023-09-14] MEDS: proMETHazine 25 MG Tablet 12.5 MG PO (22:15)
[2023-09-14 22:25] LABS: CPK Total, Creatine Kinase 39 U/L (26-192)
[2023-09-14 22:33] LABS: Partial Thromboplast Time 54.8 Seconds (24.1-36.2)
[2023-09-14] MEDS: Heparin Injection (Vial) 5,000 UNIT/ML VIAL IV (22:52)
[2023-09-15] MEDS: 0.9% Normal Saline (1000mL) 1,000 ML 50 ML IV (04:17)
[2023-09-15 04:22] VITALS: BMI 58.7
[2023-09-15 05:27] LABS: Absolute Lymphocyte Count 1.61 X10^3/uL (0.83-4.51); Absolute Neutrophil Count 6.5 X10^3/uL (2.0-7.7); Basophil# 0.07 X10^3/uL; Basophil% 0.7 % (0-1); Eosinophil# 0.29 X10^3/uL; Eosinophils% 3.1 % (0-5); Hematocrit 28.3 % (37-47); Lymphocyte # 1.61 X10^3/ul (0.83-4.51); Lymphocyte % 17.1 % (19-41); Mean Corp Hgb Conc 28.3 g/dL (32-36); Mean Corpuscular Hgb 23.3 pg (27.0-32.0); Mean Corpuscular Volume 82.3 fL (81-99); Mean Platelet Vol. 9.4 fl (6.2-12.0); Monocyte# 0.95 X10^3/uL; Monocyte% 10.1 % (0-10); NRBC Flagged by Analyzer 0 % (0-5); Neutrophil # 6.46 X10^3/uL (2.7-7.7); Neutrophil % 68.7 % (47-70); Platelet Count 551 K/mm3 (150-450); RBC Distribution Width CV 19.9 % (11.6-14.6); RBC Distribution Width SD 59.1 fl (35.1-43.9); Red Blood Count 3.44 M/mm3 (4.2-5.4); White Blood Count 9.4 K/mm3 (4.4-11.0)
[2023-09-15 05:37] LABS: Partial Thromboplast Time 71.9 Seconds (24.1-36.2)
[2023-09-15 05:46] LABS: Albumin, Serum 1.9 g/dL (3.2-5.0); Phosphorus 6.3 mg/dL (2.5-4.9)
[2023-09-15 05:51] LABS: Anion Gap 9 (5-15); BUN 42 mg/dL (7-18); BUN/Creat Ratio 5.6 RATIO (10-20); Calcium,Total 8.3 mg/dL (8.5-10.1); Chloride 101 mmol/L (98-107); Creatinine, Serum 7.54 mg/dL (0.55-1.02); EST Glomerular Filtration Rate 6 mL/min (>60); Est Glom Filt Rate - Afr Amer 7 mL/min (>60); Estimated Creatinine Clearance 14.03 ml/min; Glucose 72 mg/dL (74-106); Magnesium 1.8 mg/dL (1.6-2.6); Potassium 4.3 mmol/L (3.5-5.1); Sodium Level 134 mmol/L (136-145)
[2023-09-15] MEDS: Pramipexole Di-HCl 0.5 MG Tablet 0.75 MG PO ×3 (05:55→21:21)
[2023-09-15 06:00] VITALS: BP 149/73; PULSE 83; RESP 16; TEMP 36.8; O2SAT 96
[2023-09-15] MEDS: Albuterol 2.5 MG/3 ML VIAL.NEB. INHALATION (06:57)
[2023-09-15 06:59] VITALS: PULSE 96; RESP 18
[2023-09-15 07:58] VITALS: BP 154/83; PULSE 87; RESP 20; TEMP 36.6; O2SAT 95
[2023-09-15] MEDS: DULoxetine Hcl 30 MG Capsule PO (08:08)
[2023-09-15] MEDS: Buprenorphine HCl 2 MG TAB.SUBL SL ×2 (08:08→21:20)
[2023-09-15] MEDS: Atenolol 25 MG Tablet PO (08:08)
[2023-09-15] MEDS: predniSONE 5 MG Tablet 10 MG PO (08:09)
[2023-09-15] MEDS: Pantoprazole Sodium 40 MG Tablet PO (08:09)
[2023-09-15] MEDS: Acetaminophen 325 MG Tablet 650 MG PO (08:09)
[2023-09-15] MEDS: proMETHazine 25 MG Tablet 12.5 MG PO (08:10)
[2023-09-15] MEDS: fluvoxaMINE Maleate 50 MG Tablet PO (08:13)
[2023-09-15] MEDS: Ampicillin/Sulbactam 3 GM in 0.9% Normal Saline (100mL MB+) 100 ML IV ×2 (09:50→21:20)
[2023-09-15] MEDS: HEPARIN/D5w 25,000 UNITS 25,000 UNITS/250 ML IV.SOLN. 21 UNITS CONT INF ×2 (10:22→22:21)
--- NOTE | 2023-09-15 10:23 | NURSING ---
see caustic cresylate shift superintendent documentation, heparin gtt was at 21ml/hr upon said nurse shift based on nomogram
[2023-09-15 11:33] LABS: Partial Thromboplast Time 60.7 Seconds (24.1-36.2)
--- NOTE | 2023-09-15 11:43 | PCM.PN.HOSP ---
Reason for Visit Reason for Visit: Diagnoses Type 2 diabetes mellitus without complications (09/13/23) Cellulitis, unspecified (09/13/23) Rheumatoid arthritis, unspecified (09/13/23) Acute kidney failure, unspecified (09/13/23) Objective Data Objective Data Vital Signs: Vital Signs Temp Pulse Resp BP Pulse Ox O2 Del Method 97.8 F 87 20 H 154/83 H 95 Room Air 09/15/23 07:58 09/15/23 07:58 09/15/23 07:58 09/15/23 07:58 09/15/23 07:58 09/15/23 07:58 Oxygen Delivery Method Room Air Weight: 365 lb 4.895 oz Body Mass Index (BMI) 58.7 Intake & Output: Intake and Output for Last 24 Hours 09/13/23 09/14/23 09/15/23 23:59 23:59 23:59 Intake Total 792 / 792 2259.58 / 2259.58 1697.00 / 1697.00 Output Total 50 / 50 300 / 300 350 / 350 Balance 742 / 742 1959.58 / 1959.58 1347.00 / 1347.00 Lab / Micro Data 09/15/23 05:05 09/15/23 05:05 Labs: Laboratory Results - last 24 hr 09/14/23 08:40: Blood Type O POSITIVE, Antibody Screen NEGATIVE, Crossmatch See Detail 09/14/23 14:19: APTT 69.3 H 09/14/23 20:10: APTT 54.8 H 09/14/23 21:25: WBC 9.2, RBC 3.58 L, Hgb 8.6 L, Hct 29.4 L, MCV 82.1, MCH 24.0 L, MCHC 29.3 L, RDW Std Deviation 58.7 H, RDW Coeff of Chepe 19.8 H, Plt Count 566 H, MPV 9.7, Immature Gran % (Auto) 0.300, Neut % (Auto) 74.1 H, Lymph % (Auto) 16.4 L, [place] % (Auto) 7.8, Eos % (Auto) 1.0, Baso % (Auto) 0.4, Absolute Neuts (auto) 6.8, Absolute Lymphs (auto) 1.51, Nucleated RBC % 0, Total Creatine Kinase 39 09/15/23 05:05: WBC 9.4, RBC 3.44 L, Hgb 8.0 L, Hct 28.3 L, MCV 82.3, MCH 23.3 L, MCHC 28.3 L, RDW Std Deviation 59.1 H, RDW Coeff of [place]pe 19.9 H, Plt Count 551 H, MPV 9.4, Immature Gran % (Auto) 0.300, Neut % (Auto) 68.7, Lymph % (Auto) 17.1 L, [place] % (Auto) 10.1 H, Eos % (Auto) 3.1, Baso % (Auto) 0.7, Absolute Neuts (auto) 6.5, Absolute Lymphs (auto) 1.61, Nucleated RBC % 0, APTT 71.9 H, Sodium 134 L, Potassium 4.3, Chloride 101, Carbon Dioxide 24.0, Anion Gap 9, BUN 42 H, Creatinine 7.54 H*, Estim Creat Clear Calc 14.03, Est GFR (MDRD) Af Amer 7 L, Est GFR (MDRD) Non-Af 6 L, BUN/Creatinine Ratio 5.6 L, Glucose 72 L, Calcium 8.3 L, Phosphorus 6.3 H, Magnesium 1.8, Albumin 1.9 L, Complement C3 Cancelled, Complement C4 Cancelled 09/15/23 11:10: APTT 60.7 H Radiography Diagnostic Testing: Radiology Impression Abdomen CT 09/14/23 20:40 IMPRESSION: No hydronephrosis. Electronically Signed: Jose Elias Hull MD ([place]) at 22:02 EST Reading Location ID and State: [facility] / [place] , Service support , Physical Exam Narrative Seen and examined. Discussed with the gang punch operator. Exact cause of bernie failure unclear.CT abdomen did not show hydronephrosis. Reported normal right and left kidney. Patient denies any loss of fluid including diarrhea or vomiting, GI bleed or external hemorrhage. Was discharged with normal creatinine and then admitted with JAGDISH creatinine about 5.0 Physical exam General: Alert, Oriented x3, Cooperative, Morbid obesity BMI 58.9 kg/m?. HEENT: Atraumatic, PERRLA, EOMI, Normocephalic Oral: Oral mucosa moist. No Gingival or Mucosal Lesions/ Ulcerations Neck: Supple, No JVD, Negative Carotid Bruits Chest wall/Lungs: Air entry diminished in bilateral lung bases. No crepitation/rhonchi Cardiovascular: Regular rate, Regular Rhythm, Normal S1, Normal S2, No M/G/R Abdomen: Bowel Sounds Present, Soft, Non Tender, Non-Distended : Kamara catheter, pinkish urine total 300 mL. No dysuria. No renal angle tenderness. No suprapubic tenderness. Extremities: mild bilateral pitting. Edema, Capillary Refill Less than 3 Seconds Skin: No rashes, No breakdown Musculoskeletal: No Tenderness to Palpation of Joints or Extremities. Chronic degenerative arthritis. Neurological: Cranial nerves II-XII grossly intact, DTR 2+/4. No acute focal neurological deficit. Psych/Mental Status: Normal Affect, Appropriate. Flat affect. History of anxiety and depression seen and examined. Assessment & Plan Assessment/Plan (1) JAGDISH (acute kidney injury): (2) Cellulitis: (3) Rheumatoid arthritis: (4) Diabetes mellitus, type 2: PLAN: Plan This is 52-year-old female with multiple comorbidities and multiple medications is directly admitted from [facility] ED when she came there with no urine output for 24 hours with creatinine 5.0, safety of JAGDISH. #Acute kidney failure -Kidney function here 09/11 with creatinine of 0.88, on 09/12 at outlying facility was 4.6 and trended up to 4.97 09/14: Creatinine went up 6.27, BUN 36 BUNs/creatinine ratio 5.7. Electrolytes in normal range. Anion gap 7, bicarb 26. Patient not showing signs of confusion or uremia. Collarette Separator consulted and discussed in the morning. Kamara catheter was inserted and shows 200 mL pinkish urine. -Reportedly renal and bladder ultrasound only with 30 mL in bladder otherwise no significant abnormalities UA here shows WBC 10-25 cells, LE 500, nitrite negative. Urine osmolality 160. Total protein 84, random sodium 53 creatinine 27.4. U tox positive of ecstasy. -ESR and CRP elevated. Autoimmune markers pending. RF 248 09/15: Further worsening of creatinine. Urine output 300 mL yesterday and 350 mL since yesterday morning. Protein creatinine ratio 3.09 mg/g of creatinine. Random protein 84, Sodium 53, potassium 10. Chloride 49. Pinkish color. UA shows RBC 0-5 cells. Repeat UA. CK is normal 39. Hypoalbuminemia 1.9. CT abdomen reviewed shows normal kidneys. No hydronephrosis. Patient has Kamara catheter # Left lower extremity cellulitis -Discharged yesterday on Augmentin Transition to IV antibiotics while admitted # History of DVT/PE with MTHFR mutation transition from Xarelto to heparin drip in the event patient needs something like kidney biopsy and given kidney function would not want to give Xarelto # Acute severe anemia on baseline chronic anemia -Hgb 8.3, was 7.6 on discharge -No acute evidence of bleeding at this time 09/14: Hemoglobin dropped to 6.9. 1 PRBC transfusion ordered. 09/15: Patient had 1 unit of PRBC transfusion hemoglobin 8.0. On IV heparin drip. #GERD -Continue PPI 09/15: Patient complained of midsternal burning chest pain. Patient on PPI. #Type 2 diabetes mellitus -Glucose checks and sliding scale insulin Glucose 74 in BMP. #Morbid obesity -BMI 58.9 kg/m? -Complicates treatment, prognosis, outcomes -Recommend weight loss and lifestyle changes # Anxiety and depression -Patient on multiple medications, specifically she is on an SNRI duloxetine with an SSRI Luvox, these are contraindicated together so should not be given together, will be holding duloxetine either way given her kidney function. Hold BuSpar for her creatinine clearance less than 5. There is significant drug drug interaction with Wellbutrin and SSRI, Luvox and tizanidine which increases the chance of serotonin syndrome with a strong drug drug interaction therefore contraindicated. so we will continue fluvoxamine, will also have to hold BuSpar due to her kidney function Discontinue Wellbutrin. Discontinue tizanidine. -Pt also on rexulti # Chronic back pain -PT/OT -Supportive care -Continue home medications # RA -Patient on 10 mg of prednisone daily # RLS -On pramipexole and ropinirole but will hold due to kidney function #DVT ppx: heparin gtt Total time of the visit including total time spent in counseling or coordination of care, (more than 50% of the total time, spent in obtaining medical information from nurses and other ancillary care providers,explaining to the patient about labs, imaging, diagnosis and management of active complex medical conditions), discussion with the gang punch operator, clinical update including all differential given to patient and her mother on the phone, including that patient might need dialysis although does not seem emergent, review of labs and imaging is 40 minutes. Laboratory Results 09/13/23 17:19: POC Glucose 79 09/13/23 17:25: Sodium 136, Potassium 4.8, Chloride 105, Carbon Dioxide 21.0, Anion Gap 10, BUN 34 H, Creatinine 5.51 H, Estim Creat Clear Calc 19.19, Est GFR (MDRD) Af Amer 10 L, Est GFR (MDRD) Non-Af 9 L, BUN/Creatinine Ratio 6.2 L, Glucose 85, Calcium 8.3 L, Magnesium 1.8 09/13/23 19:37: ESR 48 H, APTT 41.8 H, C-React Prot Ext Range 132.00 H, Rheumatoid Factor 248.0 H 09/13/23 21:10: Urine Color Yellow, Urine Clarity Sl. Cloudy, Urine pH 7.0, Ur Specific [place] 1.005, Urine Protein 100 H, Urine Glucose (UA) Normal, Urine Ketones Negative, Urine Occult Blood 50 H, Urine Nitrite Negative, Urine Bilirubin Negative, Urine Urobilinogen Normal, Ur Leukocyte Esterase 500 H, Urine RBC 0-5 SEEN, Urine WBC 10-25 SEEN, Ur Squamous Epith Cells 0-5 SEEN, Amorphous Sediment 1+ PHOS, Urine Bacteria 0 SEEN, Urine Mucus 0 SEEN, Urine Osmolality 160, U Random Total Protein 84.3 H, Ur Random Sodium 53, Urine Creatinine 27.40 09/13/23 21:10: Urine Creatinine 27.20, Protein/Creatinin Ratio 3099 H, Urine Potassium 10.0, Urine Chloride 49, Urine Urea Nitrogen 82, Urine Opiates Screen NEGATIVE, Urine Methadone Screen NEGATIVE, Ur Barbiturates Screen NEGATIVE, Ur Phencyclidine Scrn NEGATIVE, Ur Amphetamines Screen NEGATIVE, MDMA (Ecstasy) Screen POSITIVE H, U Benzodiazepines Scrn NEGATIVE, Urine Cocaine Screen NEGATIVE, U Cannabinoids Screen NEGATIVE, Ur Drug Screen Comment 09/14/23 04:26: WBC 7.4, RBC 2.94 L, Hgb 6.9 L, Hct 24.6 L, MCV 83.7, MCH 23.5 L, MCHC 28.0 L, RDW Std Deviation 61.4 H, RDW Coeff of [place] 20.4 H, Plt Count 507 H, MPV 9.0, Immature Gran % (Auto) 0.300, Neut % (Auto) 58.8, Lymph % (Auto) 24.5, [place] % (Auto) 10.3 H, Eos % (Auto) 5.6 H, Baso % (Auto) 0.5, Absolute Neuts (auto) 4.4, Absolute Lymphs (auto) 1.82, Nucleated RBC % 0, Platelet Estimate SLT INC, Anisocytosis 2+, PT 15.9 H, INR 1.3, APTT 59.0 H, Sodium 136, Potassium 4.0, Chloride 103, Carbon Dioxide 26.0, Anion Gap 7, BUN 36 H, Creatinine 6.27 H, Estim Creat Clear Calc 16.86, Est GFR (MDRD) Af Amer 9 L, Est GFR (MDRD) Non-Af 7 L, BUN/Creatinine Ratio 5.7 L, Glucose 74, Calcium 8.3 L, Cycl Citrul Peptide IgG Pending, CHIRAG Screen Pending, c-ANCA Antibody Pending, p-ANCA Antibody Pending, ADITI-1 Antibody Pending, SS-A/Ro IgG Antibody Pending, SS-B/La IgG Antibody Pending, Sm (Garvey) Antibody Pending, MANAGER CULTURE Antibody Pending, Scl-70 Scleroderma Ab Pending, Double Strand DNA Ab Pending, Centromere B Antibody Pending 09/14/23 06:41: Hgb 7.2 L, Hct 25.1 L, Blood Type O POSITIVE, Antibody Screen NEGATIVE, Crossmatch See Detail 09/14/23 08:40: APTT 63.4 H, Blood Type O POSITIVE, Antibody Screen NEGATIVE, Crossmatch See Detail 09/14/23 14:19: APTT 69.3 H Charges/Coding Addendum Addendum: Total time of the visit including total time spent in counseling or coordination of care, (more than 50% of the total time, spent in obtaining medical information from nurses and other ancillary care providers,explaining to the patient about labs, imaging, diagnosis and management of active complex medical conditions), discussion with gang punch operator, review of labs and imaging clinical update given to the patient regarding diagnosis and prognosis is 40 minutes. Visit Charges Inpatient E&M: 16984 [facility] Hosp L3
[2023-09-15 14:23] VITALS: BP 152/83; PULSE 79; RESP 20; TEMP 36.5; O2SAT 95
[2023-09-15 14:42] LABS: Bacteria 0 SEEN /hpf (None Seen); Mucous, Urine 0 SEEN /hpf (<or=2+); Squamous Epithelial Cells - UA 0 SEEN /hpf (5-10)
[2023-09-15 14:44] LABS: Color, Urine Yellow (Yellow); Glucose, Dipstick Normal (Normal); Ketone-Dipstick Negative (Negative); Leukocyte Esterase-Dipstick 500 /ul (Negative); Nitrite-Dipstick Negative (Negative); Occult Blood-Urine 250 /ul (Negative); Protein-Dipstick 30 mg/dl (Negative); Specific Gravity, Urine 1.005 (1.002-1.030); Urine Bilirubin Dipstick Negative (Negative); Urine Clarity Sl. Cloudy (Clear); Urine Urobilinogen Normal (Normal)
[2023-09-15 14:49] LABS: Red Blood Cells-Urine > 100 SEEN /hpf (0-5); White Blood Cells 0-5 SEEN /hpf (0-5)
--- NOTE | 2023-09-15 18:05 | PCM.PN.REN ---
Subjective Subjective Following for JAGDISH. The patient is anxious. She denies chest pain, shortness of breath at rest, or nausea. Urine output has picked up. Objective Data Objective Data Vital Signs: Vital Signs Temp Pulse Resp BP Pulse Ox O2 Del Method 97.7 F L 79 20 H 152/83 H 95 Room Air 09/15/23 14:23 09/15/23 14:23 09/15/23 14:23 09/15/23 14:23 09/15/23 14:23 09/15/23 14:23 Oxygen Delivery Method Room Air Weight: 165.7 kg Body Mass Index (BMI) 58.7 Intake & Output: Intake and Output for Last 24 Hours 09/13/23 09/14/23 09/15/23 23:59 23:59 23:59 Intake Total 792 / 792 2259.58 / 2259.58 2091.05 / 2091.05 Output Total 50 / 50 300 / 300 635 / 635 Balance 742 / 742 1959.58 / 1959.58 1456.05 / 1456.05 Lab / Micro Data 09/15/23 05:05 09/15/23 05:05 Labs: Laboratory Results - last 24 hr 09/14/23 20:10: APTT 54.8 H 09/14/23 21:25: WBC 9.2, RBC 3.58 L, Hgb 8.6 L, Hct 29.4 L, MCV 82.1, MCH 24.0 L, MCHC 29.3 L, RDW Std Deviation 58.7 H, RDW Coeff of Chepe 19.8 H, Plt Count 566 H, MPV 9.7, Immature Gran % (Auto) 0.300, Neut % (Auto) 74.1 H, Lymph % (Auto) 16.4 L, [place] % (Auto) 7.8, Eos % (Auto) 1.0, Baso % (Auto) 0.4, Absolute Neuts (auto) 6.8, Absolute Lymphs (auto) 1.51, Nucleated RBC % 0, Total Creatine Kinase 39 09/15/23 05:05: WBC 9.4, RBC 3.44 L, Hgb 8.0 L, Hct 28.3 L, MCV 82.3, MCH 23.3 L, MCHC 28.3 L, RDW Std Deviation 59.1 H, RDW Coeff of [place]pe 19.9 H, Plt Count 551 H, MPV 9.4, Immature Gran % (Auto) 0.300, Neut % (Auto) 68.7, Lymph % (Auto) 17.1 L, [place] % (Auto) 10.1 H, Eos % (Auto) 3.1, Baso % (Auto) 0.7, Absolute Neuts (auto) 6.5, Absolute Lymphs (auto) 1.61, Nucleated RBC % 0, APTT 71.9 H, Sodium 134 L, Potassium 4.3, Chloride 101, Carbon Dioxide 24.0, Anion Gap 9, BUN 42 H, Creatinine 7.54 H*, Estim Creat Clear Calc 14.03, Est GFR (MDRD) Af Amer 7 L, Est GFR (MDRD) Non-Af 6 L, BUN/Creatinine Ratio 5.6 L, Glucose 72 L, Calcium 8.3 L, Phosphorus 6.3 H, Magnesium 1.8, Albumin 1.9 L, Complement C3 Cancelled, Complement C4 Cancelled 09/15/23 11:10: APTT 60.7 H 09/15/23 14:25: Urine Color Yellow, Urine Clarity Sl. Cloudy, Urine pH 7.0, Ur Specific [place] 1.005, Urine Protein 30 H, Urine Glucose (UA) Normal, Urine Ketones Negative, Urine Occult Blood 250 H, Urine Nitrite Negative, Urine Bilirubin Negative, Urine Urobilinogen Normal, Ur Leukocyte Esterase 500 H, Urine RBC > 100 SEEN, Urine WBC 0-5 SEEN, Ur Squamous Epith Cells 0 SEEN, Urine Bacteria 0 SEEN, Urine Mucus 0 SEEN Radiography Diagnostic Testing: Radiology Impression Abdomen CT 09/14/23 20:40 IMPRESSION: No hydronephrosis. Electronically Signed: Jose Elias Hull MD ([place]oks) at 22:02 EST Reading Location ID and State: [facility] / [place] , Service support , Physical Exam Narrative General: Alert and oriented x3, NAD. HEENT: Normocephalic, atraumatic. Mucous membrane moist without erythema. PERRLA, EOMI. Neck: Supple, no JVD. Trachea is midline. No thyromegaly or lymphadenopathy. Cardiovascular: Normal S1, S2. No rubs, murmurs, or gallops. Respiratory: Lungs are clear to auscultation bilaterally. Abdomen: Obese, normal bowel sounds, soft, nontender, no guarding or rebound, no organomegaly. Extremities: No clubbing, cyanosis, or edema. Assessment & Plan Assessment/Plan (1) JAGDISH (acute kidney injury): PLAN: Plan Impression/Plan: The patient is a 52-year-old woman with past history of type 2 diabetes mellitus, VTE with MTHFR mutation/lupus anticoagulation disorder on rivaroxaban, hypertension, rheumatoid arthritis, KIKI, chronic back pain, anemia, depression, and morbid obesity. Patient was admitted to the hospital on 09/13/2023 with JAGDISH. Acute kidney injury. The patient has had a significant and rapid decline in renal function. Serum creatinine has increased from 0.88 mg/dL on 09/11/2023 up to 7.54 mg/dL today. Urinalysis revealed pyuria without significant RBCs. There is 2+ proteinuria. Urine protein to creatinine ratio is 3.1 g/g. Unclear what has caused JAGDISH. Differential diagnosis is broad at this point. There has been no documented prolonged hypotension to explain possible ischemic ATN. BP has been stable today as well. Although AIN from antibiotic (patient was discharged on Augmentin) is possible, it is improbable to see a severe, sudden loss of renal function from AIN. CT of the abdomen/pelvis on 09/14/2023 did not show any obstruction of the urinary tract. CK is normal, so there is no evidence of rhabdomyolysis. We have sent serologies including CHIRAG, ANCAs, complements since there is significant proteinuria. The results of the studies are still pending. Urine output did tow picker in the last 24 hours. Fortunately, there is no hyperkalemia or significant acidosis. The patient does not appear to be volume overloaded. Therefore, there is no need for kidney replacement therapy tonight. I will stop IV fluid for now since it has not helped her renal function. Her intake is fair and there is no hypotension. I will set her up for kidney biopsy tomorrow for more definitive diagnosis. I went over the rationale of a kidney biopsy for diagnosis and early intervention if needed. We can always cancel the biopsy if serum creatinine trends down. Nephrology plan was discussed with Dr. German.
[2023-09-15] MEDS: proCHLORPERazine 10 MG/2 ML Vial 5 MG IV (21:20)
[2023-09-15] MEDS: QUEtiapine 25 MG Tablet PO (21:23)
[2023-09-15] MEDS: QUEtiapine 25 MG Tablet 50 MG PO (21:23)
[2023-09-15 22:00] VITALS: BP 132/68; PULSE 70; RESP 16; TEMP 36.6; O2SAT 97
[2023-09-16] VITALS (18 sets, daily range): BP systolic 107–160; BP diastolic 62–96; PULSE 75–96; RESP 16–29; TEMP 36.4–37.2; O2SAT 90–100; BMI 58.7
--- NOTE | 2023-09-16 | KID_PTH ---
PATHOLOGY RESULTS PATIENT: RICCARDO VICKERS LOC: MS3 U#:[id number] AGE/SX: 52/F ROOM: [facility] RE09/13/[address]: Dr. Lesly Tomas DO : 1970 BED: 1 DIS: 09/19/2023 SPEC #: [id number] RECD: 09/16/23 13:38 STATUS: JASON REQ #: [id number] ODALYS: 09/16/23 00:[address]: Urmila Morales DEPT: SURGICAL PATHOLOGY RECD BY: Teddy Kang ENTERED: 09/16/23 13:38 SP TYPE: KIDNEY OTHR DR: MD Dr. Tarah Valentine DO Dr. Prakash Chand, MD Dr. Paige Pierce, MD Tissues: Kidney, NOS Procedures: Electron Microscopy (ACH) Fluorescent Antibody (ACH) Sp St Grp II Kidney (ACH) Kidney Biopsy (ACH) Fluorescent antibody (ACH) add'l Comments: @ Ordering doctor for [facility] edited from to DR.NTANPH Marilee SIERRA at 09/17/23 0734 @ Submitting doctor edited from to DR.NTANPH Marilee SIERRA at 09/17/23 0734 HEADER OPERATION: CT-guided renal biopsy PRE-OP DIAGNOSIS: Acute kidney injury TISSUE SUBMITTED: Renal biopsy 18-gauge x4 MICROSCOPIC DIAGNOSIS Kidney, side/site not specified, renal biopsy: Renal parenchyma with acute/allergic interstitial nephritis, moderate. Acute tubular damage, rare/focal (cortical). Hypertensive glomerulosclerosis, moderate. Hypertensive small vascular disease, mild to moderate. Interstitial fibrosis (5-10%). COMMENT The findings are those of renal parenchyma with multifocal interstitial inflammatory infiltrate consisting of small (round nucleus) lymphocytes and eosinophils in addition to tubulitis with accentuation within corticomedullary regions and medullary portions of renal parenchyma in addition to mild cortical acute tubular damage with few dilated tubular profiles. The most striking changes are those of tubulitis and sloughed tubular epithelial cells within collecting tubules and corticomedullary tubules in the current case. Glomeruli demonstrate mild ischemic-type changes with normal thickness basement membranes and no electron dense deposits. The findings best fit with acute/allergic interstitial nephritis, moderate with focal acute (cortical) tubular damage. Glomeruli demonstrate global sclerosis and ischemic-type changes which best fit with hypertensive glomerulosclerosis, mild to moderate (3 of 14 [total] glomeruli sclerotic and 1/14 with ischemic/vascular pole collapse) and arteriosclerosis consistent with hypertensive [id number] vessel/vascular disease. Of note, intermediate foot process effacement are seen within glomeruli with normal-thickness glomerular basement membranes with no electron dense deposits. Clinical correlation and correlation with medication history (including [id number] exposures) are essential. MICROSCOPIC DESCRIPTION LIGHT MICROSCOPY: Adequate biopsy specimen consisting of equal portions of renal cortex and medulla and up to 8 glomeruli or portions of glomeruli for histologic evaluation. Three glomeruli demonstrate global sclerosis and overall shrunken nature/diameter while the remaining 5 glomeruli demonstrate open capillary loops with normal mesangial matrix and cellularity. Intermediate-sized arteries demonstrate mural thickening/arteriosclerosis and renal interstitium demonstrates moderate edema. Multifocal interstitial inflammatory infiltrates are seen with small round (nucleus) lymphocytes and admixed eosinophils and include multiple areas of tubulitis as well as tubules with sloughed epithelial cells. Medullary and cortical medullary portions demonstrate more balanced inflammatory infiltrate; however, cortical regions also demonstrate some inflammatory infiltrate. open glomeruli are otherwise unremarkable without active glomerulonephritis and without epithelial crescent formation. Some tubules demonstrate dilated profiles and simplified epithelium without cortical regions of the renal cortex. PAS stain highlights sclerotic glomeruli and slightly dilated tubular profiles in addition to cortical medullary and medullary inflammatory infiltrate within the interstitium and with sloughed epithelial cells admixed with [place]fall protein in medulla. No protein resorption droplets are identified within tubular epithelial cell cytoplasm. Parikh (Silver) stain demonstrates normal thickness glomerular basement membranes without breaks, splits, or irregular luminal outlines. No epithelial crescents are seen. Sclerotic glomeruli are also identified/noted. Interstitial inflammatory infiltrates are seen. Trichrome stain highlights interstitial edema and sclerotic glomeruli/shrunken diameter. Interstitial edema with inflammatory infiltrate is seen. Interstitial fibrosis is estimated at 5-10%. No epithelial crescents are identified within glomeruli. Glomeruli are negative for fuchsinophilic deposits. [place] red stain is negative for congophilia and negative for birefringence and dichromatism by polarization microscopy. IMMUNOFLUORESCENCE: Tissue submitted for immunofluorescence microscopy demonstrates renal cortex and medulla and up to 4 glomeruli (open glomeruli) or portions of glomeruli for histologic evaluation. Albumin is negative in glomeruli, tubules and vascular structures. Fibrin demonstrates 2+ positivity within the interstitium but is negative in glomeruli and vasculature. Lambda light chain is negative in glomeruli, tubules and vascular structures. C3 demonstrates 2+ nonspecific mesangial straining/trapping as well as 1+ positivity with in interstitium adjacent to tubules but is negative in vascular structures. IgA demonstrates trace nonspecific mesangial staining but is negative in tubules and vascular structures. IgM is negative in glomeruli, tubules and vascular structures. IgG 1+ positivity within mesangium (nonspecific) but is negative in vascular structures in tubules. ELECTRON MICROSCOPY: Toluidine blue-stained sections (thick/ grounding engineer sections) reveal interstitial inflammatory infiltrate (mixed) in addition to 2 glomeruli or portions of glomeruli for histologic evaluation. Glomeruli demonstrate open capillary loops with 1 glomerulus demonstrating vascular mole (ischemic-type) collapse, mild. Ultrastructure examination reveals interstitial edema and mixed inflammatory infiltrate including lymphocytes, rare plasma cells and eosinophils. Glomeruli demonstrate slight leak thin but uniform glomerular basement membranes without breaks , splints or irregular luminal outlines. No electron dense deposits are seen. Focal foot process effacement is identified; however, intact and normal foot processes are identified in the majority of the single glomerulus available for ultrastructural evaluation. GROSS DESCRIPTION The specimen is sent entirely to [facility] for diagnosis. Received within transport media labeled with the patient's name and kidney biopsy are four cores of quezada-pink soft tissue, ranging in size from 0.7-1.5 cm in length and averaging 0.1 cm in diameter. Tissue is submitted fresh for immunofluorescence, in glutaraldehyde for electron microscopy, and the remaining in formalin for light microscopy (cassette A1).
[2023-09-16 05:22] LABS: Absolute Lymphocyte Count 1.51 X10^3/uL (0.83-4.51); Absolute Neutrophil Count 7.8 X10^3/uL (2.0-7.7); Basophil# 0.04 X10^3/uL; Basophil% 0.4 % (0-1); Eosinophil# 0.26 X10^3/uL; Eosinophils% 2.5 % (0-5); Hematocrit 26.8 % (37-47); Hemoglobin 7.7 g/dL (12.0-15.0); Lymphocyte # 1.51 X10^3/ul (0.83-4.51); Lymphocyte % 14.3 % (19-41); Mean Corp Hgb Conc 28.7 g/dL (32-36); Mean Corpuscular Hgb 23.4 pg (27.0-32.0); Mean Corpuscular Volume 81.5 fL (81-99); Mean Platelet Vol. 8.9 fl (6.2-12.0); Monocyte# 0.91 X10^3/uL; Monocyte% 8.6 % (0-10); NRBC Flagged by Analyzer 0 % (0-5); Neutrophil # 7.76 X10^3/uL (2.7-7.7); Neutrophil % 73.5 % (47-70); Platelet Count 600 K/mm3 (150-450); RBC Distribution Width CV 19.9 % (11.6-14.6); RBC Distribution Width SD 59.2 fl (35.1-43.9); Red Blood Count 3.29 M/mm3 (4.2-5.4); White Blood Count 10.6 K/mm3 (4.4-11.0)
[2023-09-16] MEDS: Pramipexole Di-HCl 0.5 MG Tablet 0.75 MG PO ×3 (05:26→20:59)
[2023-09-16 05:30] LABS: Partial Thromboplast Time 48.5 Seconds (24.1-36.2)
[2023-09-16] MEDS: Heparin Injection (Vial) 5,000 UNIT/ML VIAL IV (05:40)
[2023-09-16 05:54] LABS: Anion Gap 10 (5-15); BUN 46 mg/dL (7-18); BUN/Creat Ratio 5.4 RATIO (10-20); Calcium,Total 8.7 mg/dL (8.5-10.1); Chloride 100 mmol/L (98-107); Creatinine, Serum 8.59 mg/dL (0.55-1.02); EST Glomerular Filtration Rate 5 mL/min (>60); Est Glom Filt Rate - Afr Amer 6 mL/min (>60); Estimated Creatinine Clearance 12.32 ml/min; Glucose 79 mg/dL (74-106); Potassium 4.6 mmol/L (3.5-5.1); Sodium Level 134 mmol/L (136-145)
--- NOTE | 2023-09-16 07:52 | PN.HOSP_ITS ---
Reason for Visit Reason for Visit: Diagnoses Type 2 diabetes mellitus without complications (09/13/23) Cellulitis, unspecified (09/13/23) Rheumatoid arthritis, unspecified (09/13/23) Acute kidney failure, unspecified (09/13/23) Objective Data Objective Data Vital Signs: Vital Signs Temp Pulse Resp BP Pulse Ox O2 Del Method 97.6 F L 81 16 121/62 H 97 Room Air 09/16/23 05:33 09/16/23 05:33 09/16/23 05:33 09/16/23 05:33 09/16/23 05:33 09/16/23 05:33 Oxygen Delivery Method Room Air Weight: 365 lb 4.895 oz Body Mass Index (BMI) 58.7 Intake & Output: Intake and Output for Last 24 Hours 09/14/23 09/15/23 09/16/23 23:59 23:59 23:59 Intake Total 2259.58 / 2259.58 2824.00 / 2824.00 460.65 / 460.65 Output Total 300 / 300 635 / 635 650 / 650 Balance 1959.58 / 1959.58 2189.00 / 2189.00 -189.35 / -189.35 Lab / Micro Data 09/16/23 05:00 09/16/23 05:00 Labs: Laboratory Results - last 24 hr 09/15/23 11:10: APTT 60.7 H 09/15/23 14:25: Urine Color Yellow, Urine Clarity Sl. Cloudy, Urine pH 7.0, Ur Specific [place] 1.005, Urine Protein 30 H, Urine Glucose (UA) Normal, Urine Ketones Negative, Urine Occult Blood 250 H, Urine Nitrite Negative, Urine Bilirubin Negative, Urine Urobilinogen Normal, Ur Leukocyte Esterase 500 H, Urine RBC > 100 SEEN, Urine WBC 0-5 SEEN, Ur Squamous Epith Cells 0 SEEN, Urine Bacteria 0 SEEN, Urine Mucus 0 SEEN 09/16/23 05:00: WBC 10.6, RBC 3.29 L, Hgb 7.7 L, Hct 26.8 L, MCV 81.5, MCH 23.4 L, MCHC 28.7 L, RDW Std Deviation 59.2 H, RDW Coeff of [place] 19.9 H, Plt Count 600 H, MPV 8.9, Immature Gran % (Auto) 0.700, Neut % (Auto) 73.5 H, Lymph % (Auto) 14.3 L, [place] % (Auto) 8.6, Eos % (Auto) 2.5, Baso % (Auto) 0.4, Absolute Neuts (auto) 7.8 H, Absolute Lymphs (auto) 1.51, Nucleated RBC % 0, APTT 48.5 H, Sodium 134 L, Potassium 4.6, Chloride 100, Carbon Dioxide 24.0, Anion Gap 10, BUN 46 H, Creatinine 8.59 H*, Estim Creat Clear Calc 12.32, Est GFR (MDRD) Af Amer 6 L, Est GFR (MDRD) Non-Af 5 L, BUN/Creatinine Ratio 5.4 L, Glucose 79, Calcium 8.7 Physical Exam Narrative Seen and examined. Discussed with the clinical medical transcriptionist. Exact cause of JAGDISH unclear.CT abdomen did not show hydronephrosis. Reported normal right and left kidney. Patient urine output has increased compared to yesterday. Patient worried and concerned about the kidney biopsy planned for today. I explained the procedure. Patient denies any loss of fluid including diarrhea or vomiting, GI bleed or external hemorrhage. Was discharged with normal creatinine and then admitted with JAGDISH creatinine about 5.0 Physical exam General: Alert, Oriented x3, Cooperative, Morbid obesity BMI 58.9 kg/m?. HEENT: Atraumatic, PERRLA, EOMI, Normocephalic Oral: Oral mucosa moist. No Gingival or Mucosal Lesions/ Ulcerations Neck: Supple, No JVD, Negative Carotid Bruits Chest wall/Lungs: Air entry diminished in bilateral lung bases. No crepitation/rhonchi Cardiovascular: Regular rate, Regular Rhythm, Normal S1, Normal S2, No M/G/R Abdomen: Bowel Sounds Present, Soft, Non Tender, Non-Distended : Kamara catheter, urine clear, increased in amount. No dysuria. No renal angle tenderness. No suprapubic tenderness. Extremities: mild bilateral pitting. Edema, Capillary Refill Less than 3 Seconds Skin: No rashes, No breakdown Musculoskeletal: No Tenderness to Palpation of Joints or Extremities. Chronic degenerative arthritis. Neurological: Cranial nerves II-XII grossly intact, DTR 2+/4. No acute focal neurological deficit. Psych/Mental Status: Flat affect. History of anxiety and depression Assessment & Plan Assessment/Plan (1) JAGDISH (acute kidney injury): (2) Cellulitis: (3) Rheumatoid arthritis: (4) Diabetes mellitus, type 2: PLAN: Plan This is 52-year-old female with multiple comorbidities and multiple medications is directly admitted from [facility] ED when she came there with no urine output for 24 hours with creatinine 5.0, safety of JAGDISH. #Acute kidney failure -Kidney function here 09/11 with creatinine of 0.88, on 09/12 at outlying facility was 4.6 and trended up to 4.97 09/14: Creatinine went up 6.27, BUN 36 BUNs/creatinine ratio 5.7. Electrolytes in normal range. Anion gap 7, bicarb 26. Patient not showing signs of confusion or uremia. Physical Therapy Aide consulted and discussed in the morning. Kamara catheter was inserted and shows 200 mL pinkish urine. -Reportedly renal and bladder ultrasound only with 30 mL in bladder otherwise no significant abnormalities UA here shows WBC 10-25 cells, LE 500, nitrite negative. Urine osmolality 160. Total protein 84, random sodium 53 creatinine 27.4. U tox positive of ecstasy. -ESR and CRP elevated. Autoimmune markers pending. RF 248 09/15: Further worsening of creatinine. Protein creatinine ratio 3.09 mg/g of creatinine. Random protein 84, Sodium 53, potassium 10. Chloride 49. Pinkish color. UA shows RBC 0-5 cells. Repeat UA. CK is normal 39. Hypoalbuminemia 1.9. CT abdomen reviewed shows normal kidneys. No hydronephrosis. Patient has Kamara catheter 09/16: Nonoliguric JAGDISH. Creatinine further increased to 8.59. Patient had 630 mL yesterday. 650 mL since midnight, total cumulative since admission 1635 mL. The patient going for kidney biopsy. Heparin drip is stopped around 8:00 probably will go around 12 noon. Discussed about the U tox positive after she may be a byproduct/metabolite of bupropion, patient's home medication. Patient denies using Actros D. # Left lower extremity cellulitis -Discharged yesterday on Augmentin Transition to IV antibiotics while admitted # History of DVT/PE with MTHFR mutation transition from Xarelto to heparin drip in the event patient needs something like kidney biopsy and given kidney function would not want to give Xarelto # Acute severe anemia on baseline chronic anemia -Hgb 8.3, was 7.6 on discharge -No acute evidence of bleeding at this time 09/14: Hemoglobin dropped to 6.9. 1 PRBC transfusion ordered. 09/15: Patient had 1 unit of PRBC transfusion hemoglobin 8.0. On IV heparin drip. #GERD -Continue PPI 09/15: Patient complained of midsternal burning chest pain. Patient on PPI. #Type 2 diabetes mellitus -Glucose checks and sliding scale insulin Glucose 74 in BMP. #Morbid obesity -BMI 58.9 kg/m? -Complicates treatment, prognosis, outcomes -Recommend weight loss and lifestyle changes # Anxiety and depression -Patient on multiple medications, specifically she is on an SNRI duloxetine with an SSRI Luvox, these are contraindicated together so should not be given together, will be holding duloxetine either way given her kidney function. Hold BuSpar for her creatinine clearance less than 5. There is significant drug drug interaction with Wellbutrin and SSRI, Luvox and tizanidine which increases the chance of serotonin syndrome with a strong drug drug interaction therefore contraindicated. so we will continue fluvoxamine, will also have to hold BuSpar due to her kidney function Discontinue Wellbutrin. Discontinue tizanidine. -Pt also on rexulti # Chronic back pain -PT/OT -Supportive care -Continue home medications # RA -Patient on 10 mg of prednisone daily # RLS -On pramipexole and ropinirole but will hold due to kidney function #DVT ppx: heparin gtt Total time of the visit including total time spent in counseling or coordination of care, (more than 50% of the total time, spent in obtaining medical information from nurses and other ancillary care providers,explaining to the patient about labs, imaging, diagnosis and management of active complex medical conditions), discussion with the clinical medical transcriptionist, clinical update including all differential given to patient and her mother on the phone, including that patient might need dialysis although does not seem emergent, review of labs and imaging is 40 minutes. Laboratory Results 09/15/23 14:25: Urine Color Yellow, Urine Clarity Sl. Cloudy, Urine pH 7.0, Ur Specific [place] 1.005, Urine Protein 30 H, Urine Glucose (UA) Normal, Urine Ketones Negative, Urine Occult Blood 250 H, Urine Nitrite Negative, Urine Bilirubin Negative, Urine Urobilinogen Normal, Ur Leukocyte Esterase 500 H, Urine RBC > 100 SEEN, Urine WBC 0-5 SEEN, Ur Squamous Epith Cells 0 SEEN, Urine Bacteria 0 SEEN, Urine Mucus 0 SEEN 09/16/23 05:00: WBC 10.6, RBC 3.29 L, Hgb 7.7 L, Hct 26.8 L, MCV 81.5, MCH 23.4 L, MCHC 28.7 L, RDW Std Deviation 59.2 H, RDW Coeff of [place] 19.9 H, Plt Count 600 H, MPV 8.9, Immature Gran % (Auto) 0.700, Neut % (Auto) 73.5 H, Lymph % (Auto) 14.3 L, [place] % (Auto) 8.6, Eos % (Auto) 2.5, Baso % (Auto) 0.4, Absolute Neuts (auto) 7.8 H, Absolute Lymphs (auto) 1.51, Nucleated RBC % 0, APTT 48.5 H, Sodium 134 L, Potassium 4.6, Chloride 100, Carbon Dioxide 24.0, Anion Gap 10, BUN 46 H, Creatinine 8.59 H*, Estim Creat Clear Calc 12.32, Est GFR (MDRD) Af Amer 6 L, Est GFR (MDRD) Non-Af 5 L, BUN/Creatinine Ratio 5.4 L, Glucose 79, Calcium 8.7 09/13/23 21:10: Urine Creatinine 27.20, Protein/Creatinin Ratio 3099 H, Urine Potassium 10.0, Urine Chloride 49, Urine Urea Nitrogen 82, Urine Opiates Screen NEGATIVE, Urine Methadone Screen NEGATIVE, Ur Barbiturates Screen NEGATIVE, Ur Phencyclidine Scrn NEGATIVE, Ur Amphetamines Screen NEGATIVE, MDMA (Ecstasy) Screen POSITIVE H, U Benzodiazepines Scrn NEGATIVE, Urine Cocaine Screen NEGATIVE, U Cannabinoids Screen NEGATIVE, Ur Drug Screen Comment Clinical Impression(s) from Imaging Studies Abdomen CT 09/14/23 20:40 IMPRESSION: No hydronephrosis. Charges/Coding Visit Charges Inpatient E&M: 08643 Subs Hosp L2
[2023-09-16] MEDS: Ampicillin/Sulbactam 3 GM in 0.9% Normal Saline (100mL MB+) 100 ML IV (09:10)
[2023-09-16] MEDS: Buprenorphine HCl 2 MG TAB.SUBL SL ×2 (09:11→20:59)
[2023-09-16] MEDS: 0.9% Normal Saline (250mL Bag) 250 ML 15 ML IV (12:46)
[2023-09-16] MEDS: Midazolam 2 MG/2 ML Syringe IV ×2 (12:48→12:57)
[2023-09-16] MEDS: fentaNYL 100 MCG/2 ML Ampul IV ×3 (12:50→13:07)
--- NOTE | 2023-09-16 12:50 | PN.RENAL_ITS ---
Subjective Subjective No new complaints today. Urine output has improved. Creatinine worsening. Potassium is okay, volume status acceptable. Objective Data Objective Data Vital Signs: Vital Signs Temp Pulse Resp BP Pulse Ox O2 Del Method O2 Flow Rate 98.9 F 87 26 H 119/62 93 Nasal Cannula 2 09/16/23 08:33 09/16/23 12:12 09/16/23 12:12 09/16/23 12:12 09/16/23 12:12 09/16/23 12:12 09/16/23 12:12 Oxygen Flow Rate (L/min) 2 Oxygen Delivery Method Nasal Cannula Weight: 165.7 kg Body Mass Index (BMI) 58.7 Intake & Output: Intake and Output for Last 24 Hours 09/14/23 09/15/23 09/16/23 23:59 23:59 23:59 Intake Total 2259.58 / 2259.58 2824.00 / 2824.00 502.82 / 502.82 Output Total 300 / 300 635 / 635 650 / 650 Balance 1959.58 / 1959.58 2189.00 / 2189.00 -147.18 / -147.18 Lab / Micro Data 09/16/23 05:00 09/16/23 05:00 Labs: Laboratory Results - last 24 hr 09/15/23 14:25: Urine Color Yellow, Urine Clarity Sl. Cloudy, Urine pH 7.0, Ur Specific [place] 1.005, Urine Protein 30 H, Urine Glucose (UA) Normal, Urine Ketones Negative, Urine Occult Blood 250 H, Urine Nitrite Negative, Urine Bilirubin Negative, Urine Urobilinogen Normal, Ur Leukocyte Esterase 500 H, Urine RBC > 100 SEEN, Urine WBC 0-5 SEEN, Ur Squamous Epith Cells 0 SEEN, Urine Bacteria 0 SEEN, Urine Mucus 0 SEEN 09/16/23 05:00: WBC 10.6, RBC 3.29 L, Hgb 7.7 L, Hct 26.8 L, MCV 81.5, MCH 23.4 L, MCHC 28.7 L, RDW Std Deviation 59.2 H, RDW Coeff of Chepe 19.9 H, Plt Count 600 H, MPV 8.9, Immature Gran % (Auto) 0.700, Neut % (Auto) 73.5 H, Lymph % (Auto) 14.3 L, [place] % (Auto) 8.6, Eos % (Auto) 2.5, Baso % (Auto) 0.4, Absolute Neuts (auto) 7.8 H, Absolute Lymphs (auto) 1.51, Nucleated RBC % 0, APTT 48.5 H, Sodium 134 L, Potassium 4.6, Chloride 100, Carbon Dioxide 24.0, Anion Gap 10, BUN 46 H, Creatinine 8.59 H*, Estim Creat Clear Calc 12.32, Est GFR (MDRD) Af Amer 6 L, Est GFR (MDRD) Non-Af 5 L, BUN/Creatinine Ratio 5.4 L, Glucose 79, Calcium 8.7 Physical Exam Narrative General: Alert and oriented x3, NAD. HEENT: Normocephalic, atraumatic. Mucous membrane moist without erythema. PERRLA, EOMI. Neck: Supple, no JVD. Trachea is midline. No thyromegaly or lymphadenopathy. Cardiovascular: Normal S1, S2. No rubs, murmurs, or gallops. Respiratory: Lungs are clear to auscultation bilaterally. Abdomen: Obese, normal bowel sounds, soft, nontender, no guarding or rebound, no organomegaly. Extremities: No clubbing, cyanosis, or edema. Assessment & Plan Assessment/Plan (1) JAGDISH (acute kidney injury): PLAN: Plan Impression/Plan: The patient is a 52-year-old woman with past history of type 2 diabetes mellitus, VTE with MTHFR mutation/lupus anticoagulation disorder on rivaroxaban, hypertension, rheumatoid arthritis, KIKI, chronic back pain, anemia, depression, and morbid obesity. Patient was admitted to the hospital on 09/13/2023 with JAGDISH. Acute renal failure. On the , her creatinine was normal and she was discharged home. Came back on the with a creatinine of 5. Rapid rise in creatinine within 2 days. Urine analysis shows WBC, RBC, protein. Urine protein creatinine ratio about 3 g. However this urine sample was collected when she was anuric/oliguric with a Kamara catheter hence I am not sure how reliable these are. During her last admission, she was treated for cellulitis received vancomycin, there was 1 trough level which was elevated at 36. She was switched to Augmentin and discharged home with Augmentin. Denies having any rash. CT abdomen without any hydronephrosis CPK levels normal Serologies have been sent and are pending. Kidney biopsy ordered for today. This is being done today afternoon. No acute indications for dialysis. Fortunately urine output is better. Nephrology plan was discussed with Dr. German.
[2023-09-16] MEDS: Lidocaine 2% (20 ml mdv) 20 ML Vial INFILT (13:01)
--- NOTE | 2023-09-16 13:17 | PCM.OP.PRO ---
Procedure Report Date of Procedure: 09/16/23 Assessment & Plan Assessment/Plan (1) JAGDISH (acute kidney injury): PLAN: PROCEDURE: CT GUIDED PERCUTANEOUS RIGHT KIDNEY BIOPSY. ORDERING PROVIDER: Dr. Morales INDICATION: Female, 52 years old. Acute kidney injury. PROVIDER: YU Coy CONSENT: Written informed consent was obtained having explained the risks, benefits and alternatives in detail with the patient. The specific risk of hemorrhage requiring further treatment or intervention was detailed and accepted. The patient accepted the risks and agreed to proceed. Laboratory review and clinical assessment was performed. PRE-PROCEDURE SEDATION ASSESSMENT: Current history and physical dictated by referring provider and reviewed. No clinical changes since date of exam. Patient has an ASA Class of 3. PROCEDURAL SEDATION PROTOCOL: The Drugs used were: 3 mg Versed, IV, and 100 mcg Fentanyl, IV. The sedation time was: 20 minutes, starting at 1248 and terminated at 1308. The procedural sedation protocol was independently monitored by the department nurse. RADIATION DOSAGE (If Supplied By Facility): CTDIvol = 35.70 mGy, DLP = 678.07 mGycm Individualized dose optimization techniques were used for this CT. TECHNIQUE: The patient was placed on the CT table in the prone position. Multiple axial images were obtained from the lung base through the caudal extent of the kidneys. An appropriate entry site was identified and a magdalena made on the skin. The skin overlying the right posterior flank was prepped and draped in sterile fashion. 2% lidocaine was administered subcutaneously for local anesthesia. Using CT guidance, an 18-gauge coaxial biopsy device was advanced to the avascular zone of the right kidney. A total of 4 core specimens were obtained. Specimens were microscopically reviewed by pathology in the CT suite and placed in formalin solution for further analysis. The needle was withdrawn. Hemostasis was achieved with manual compression and a sterile dressing was applied. The patient tolerated the procedure well without immediate complications. The patient returned to the holding bay in stable condition for nursing monitoring, per protocol. IMPRESSION: 1. Successful CT guided percutaneous right kidney biopsy. Pathology results are pending. 2. Procedural Sedation protocol utilized with independent monitoring by the department nurse. Procedures Radiology Radiology CT Procedures: 17572 Biopsy Kidney
[2023-09-16 14:08] LABS: CCP IgG Antibodies 70 units (0-19); Cytoplasmic Ab (C-ANCA) <1:20 titer (Neg:<1:20); Perinuclear Ab (P-ANCA) <1:20 titer (Neg:<1:20)
[2023-09-16] MEDS: predniSONE 5 MG Tablet 10 MG PO (14:56)
[2023-09-16] MEDS: DULoxetine Hcl 30 MG Capsule PO (14:57)
[2023-09-16] MEDS: fluvoxaMINE Maleate 50 MG Tablet PO (14:57)
[2023-09-16] MEDS: Pantoprazole Sodium 40 MG Tablet PO (14:57)
[2023-09-16] MEDS: Atenolol 25 MG Tablet PO (14:58)
[2023-09-16] MEDS: Ferrous Sulfate 325 MG Tablet PO (15:07)
[2023-09-16 15:08] LABS: ANTINUCLEAR ANTIBODIES DIRECT Negative (Negative)
[2023-09-16] MEDS: Acetaminophen 325 MG Tablet 650 MG PO (15:14)
[2023-09-16] MEDS: QUEtiapine 25 MG Tablet PO (20:59)
[2023-09-16] MEDS: QUEtiapine 25 MG Tablet 50 MG PO (21:00)
[2023-09-16] MEDS: Miconazole Nitrate 43 GM Bottle 1 APPLIC TOPICAL (21:01)
[2023-09-16] MEDS: HEPARIN/D5w 25,000 UNITS 25,000 UNITS/250 ML IV.SOLN. 22 UNITS CONT INF (21:57)
[2023-09-17] VITALS (9 sets, daily range): BP systolic 140–159; BP diastolic 70–93; PULSE 77–83; RESP 16; TEMP 36.6–36.8; O2SAT 93–96; BMI 58.7
[2023-09-17 01:42] LABS: Absolute Lymphocyte Count 1.04 X10^3/uL (0.83-4.51); Absolute Neutrophil Count 8.6 X10^3/uL (2.0-7.7); Basophil# 0.06 X10^3/uL; Basophil% 0.6 % (0-1); Eosinophil# 0.09 X10^3/uL; Eosinophils% 0.9 % (0-5); Hematocrit 25.7 % (37-47); Hemoglobin 7.3 g/dL (12.0-15.0); Lymphocyte # 1.04 X10^3/ul (0.83-4.51); Lymphocyte % 10.1 % (19-41); Mean Corp Hgb Conc 28.4 g/dL (32-36); Mean Corpuscular Hgb 22.9 pg (27.0-32.0); Mean Corpuscular Volume 80.6 fL (81-99); Monocyte# 0.47 X10^3/uL; Monocyte% 4.6 % (0-10); NRBC Flagged by Analyzer 0 % (0-5); Neutrophil % 83.4 % (47-70); POSITIVE MORPHOLOGY YES; Platelet Count 634 K/mm3 (150-450); RBC Distribution Width CV 20.3 % (11.6-14.6); RBC Distribution Width SD 59.3 fl (35.1-43.9); Red Blood Count 3.19 M/mm3 (4.2-5.4); White Blood Count 10.3 K/mm3 (4.4-11.0)
[2023-09-17 01:56] LABS: Partial Thromboplast Time 59.1 Seconds (24.1-36.2)
[2023-09-17 02:01] LABS: Anion Gap 8 (5-15); BUN 52 mg/dL (7-18); BUN/Creat Ratio 5.5 RATIO (10-20); Calcium,Total 9.2 mg/dL (8.5-10.1); Chloride 103 mmol/L (98-107); Creatinine, Serum 9.43 mg/dL (0.55-1.02); EST Glomerular Filtration Rate 5 mL/min (>60); Est Glom Filt Rate - Afr Amer 6 mL/min (>60); Estimated Creatinine Clearance 11.22 ml/min; Glucose 95 mg/dL (74-106); Potassium 5.3 mmol/L (3.5-5.1); Sodium Level 132 mmol/L (136-145)
[2023-09-17 03:50] LABS: Differential Indicated SCAN CRITERIA MET
[2023-09-17 04:29] LABS: Anisocytosis RARE; Ovalocyte 1+
[2023-09-17 05:07] LABS: Complement C3 152 mg/dL (82-167)
[2023-09-17] MEDS: Pramipexole Di-HCl 0.5 MG Tablet 0.75 MG PO ×3 (06:02→21:19)
[2023-09-17] MEDS: predniSONE 5 MG Tablet 10 MG PO (08:48)
[2023-09-17 09:21] LABS: Partial Thromboplast Time 39.3 Seconds (24.1-36.2)
[2023-09-17] MEDS: Heparin Injection (Vial) 5,000 UNIT/ML VIAL IV ×2 (09:54→22:59)
[2023-09-17] MEDS: Ampicillin/Sulbactam 3 GM in 0.9% Normal Saline (100mL MB+) 100 ML IV (10:08)
[2023-09-17] MEDS: HEPARIN/D5w 25,000 UNITS 25,000 UNITS/250 ML IV.SOLN. 24 UNITS CONT INF ×2 (10:16→21:22)
[2023-09-17] MEDS: Atenolol 25 MG Tablet PO (10:18)
[2023-09-17] MEDS: DULoxetine Hcl 30 MG Capsule PO (10:18)
[2023-09-17] MEDS: Buprenorphine HCl 2 MG TAB.SUBL SL ×2 (10:18→21:19)
[2023-09-17] MEDS: Pantoprazole Sodium 40 MG Tablet PO (10:18)
[2023-09-17] MEDS: Miconazole Nitrate 43 GM Bottle 1 APPLIC TOPICAL (10:20)
[2023-09-17] MEDS: Polyethylene Glycol 3350 17 GM PACKET PO (13:26)
[2023-09-17] MEDS: Senna/Docusate Sodium 1 Tablet 2 TABLET PO (13:26)
[2023-09-17] MEDS: fluvoxaMINE Maleate 50 MG Tablet PO (13:51)
--- NOTE | 2023-09-17 15:12 | PCM.PN.REN ---
Subjective Subjective c/o nausea, poor appetite, urine output is ok. cr worse. K borderline high. Objective Data Objective Data Vital Signs: Vital Signs Temp Pulse Resp BP Pulse Ox O2 Del Method O2 Flow Rate 97.9 F 80 16 159/70 H 96 Room Air 2 09/17/23 13:43 09/17/23 13:43 09/17/23 13:44 09/17/23 13:43 09/17/23 13:43 09/17/23 13:43 09/17/23 08:25 Oxygen Flow Rate (L/min) 2 Oxygen Delivery Method Room Air Weight: 165.7 kg Body Mass Index (BMI) 58.7 Intake & Output: Intake and Output for Last 24 Hours 09/15/23 09/16/23 09/17/23 23:59 23:59 23:59 Intake Total 2824.00 / 2824.00 962.00 / 962.00 668.75 / 668.75 Output Total 635 / 635 650 / 650 1300 / 1300 Balance 2189.00 / 2189.00 312.00 / 312.00 -631.25 / -631.25 Lab / Micro Data 09/17/23 01:30 09/17/23 01:30 Labs: Laboratory Results - last 24 hr 09/14/23 04:26: ADITI-1 Antibody Not Reportable, SS-A/Ro IgG Antibody Not Reportable, SS-B/La IgG Antibody Not Reportable, Sm (Garvey) Antibody Not Reportable, FABRIC AND ACCESSORIES ESTIMATOR Antibody Not Reportable, Scl-70 Scleroderma Ab Not Reportable, Double Strand DNA Ab Not Reportable, Centromere B Antibody Not Reportable 09/14/23 21:25: Complement C3 152, Complement C4 30 09/17/23 01:30: WBC 10.3, RBC 3.19 L, Hgb 7.3 L, Hct 25.7 L, MCV 80.6 L, MCH 22.9 L, MCHC 28.4 L, RDW Std Deviation 59.3 H, RDW Coeff of Chepe 20.3 H, Plt Count 634 H, MPV 9.0, Immature Gran % (Auto) 0.400, Neut % (Auto) 83.4 H, Lymph % (Auto) 10.1 L, [place] % (Auto) 4.6, Eos % (Auto) 0.9, Baso % (Auto) 0.6, Absolute Neuts (auto) 8.6 H, Absolute Lymphs (auto) 1.04, Nucleated RBC % 0, Anisocytosis RARE, Ovalocytes 1+, APTT 59.1 H, Sodium 132 L, Potassium 5.3 H, Chloride 103, Carbon Dioxide 21.0, Anion Gap 8, BUN 52 H, Creatinine 9.43 H*, Estim Creat Clear Calc 11.22, Est GFR (MDRD) Af Amer 6 L, Est GFR (MDRD) Non-Af 5 L, BUN/Creatinine Ratio 5.5 L, Glucose 95, Calcium 9.2 09/17/23 07:36: APTT 39.3 H 09/17/23 11:20: Phosphorus 7.0 H, Magnesium 2.0, Blood Type O POSITIVE, Antibody Screen NEGATIVE, Crossmatch See Detail Physical Exam Narrative General: Alert and oriented x3, NAD. HEENT: Normocephalic, atraumatic. Mucous membrane moist without erythema. PERRLA, EOMI. Neck: Supple, no JVD. Trachea is midline. No thyromegaly or lymphadenopathy. Cardiovascular: Normal S1, S2. No rubs, murmurs, or gallops. Respiratory: Lungs are clear to auscultation bilaterally. Abdomen: Obese, normal bowel sounds, soft, nontender, no guarding or rebound, no organomegaly. Extremities: No clubbing, cyanosis, or edema. Assessment & Plan Assessment/Plan (1) JAGDISH (acute kidney injury): PLAN: Plan Impression/Plan: The patient is a 52-year-old woman with past history of type 2 diabetes mellitus, VTE with MTHFR mutation/lupus anticoagulation disorder on rivaroxaban, hypertension, rheumatoid arthritis, KIKI, chronic back pain, anemia, depression, and morbid obesity. Patient was admitted to the hospital on 09/13/2023 with JAGDISH. Acute renal failure. On the , her creatinine was normal and she was discharged home. Came back on the with a creatinine of 5. Rapid rise in creatinine within 2 days. Urine analysis shows WBC, RBC, protein. Urine protein creatinine ratio about 3 g. However this urine sample was collected when she was anuric/oliguric with a Kamara catheter hence I am not sure how reliable these are. During her last admission, she was treated for cellulitis received vancomycin, there was 1 trough level which was elevated at 36. She was switched to Augmentin and discharged home with Augmentin. Denies having any rash. CT abdomen without any hydronephrosis CPK levels normal Serologies are normal Kidney biopsy pending results worsening azotemia, likely uremic now will need dialysis. called and spoke to surgery service. will need catheter placed and start dialysis continue heparin drip for now at this point only possibility is some form of reaction to antibiotics will call pathology for kidney biopsy results Nephrology plan was discussed with Dr. German.
--- NOTE | 2023-09-17 15:38 | CON.PCM.SX_ITS ---
Assessment & Plan Assessment/Plan (1) JAGDISH (acute kidney injury): PLAN: I was consulted to place a tunneled dialysis catheter for the patient receive dialysis. I discussed this with her in detail. I discussed the risks including but not limited to bleeding, infection, pneumothorax or line infection. Patient understands the risks and is willing to proceed. Patient is on a heparin drip for lupus anticoagulant. I will plan for tomorrow afternoon for surgery. I will hold her heparin drip 6 hours before the procedure and make her n.p.o. after midnight. Chun Beckham MD Pager: [facility] [address] [place] [address], [address] [place] [address] Office: HPI Consult Data Date of Consult: 09/17/23 HPI Narrative HPI Narrative: RICCARDO VICKERS, is a 52 F who has been diagnosed with kidney failure. The patient underwent kidney biopsy and I was consulted for placement of tunneled dialysis catheter. [facility] Medical History (Updated 09/13/23 @ 16:[address] Maryam Santos MD) Anemia Anticoagulant long-term use Anxiety and depression Bilateral lower extremity edema Celiac disease CKD (chronic kidney disease) Compartment syndrome of left lower extremity Diabetes mellitus, type 2 Gastroparesis GERD (gastroesophageal reflux disease) High risk medication use History of pulmonary embolism History of venous thromboembolism Immunocompromised state due to drug therapy Iron deficiency anemia due to chronic blood loss nursing home current use of anticoagulant Lupus anticoagulant disorder Morbid obesity MTHFR mutation Obesity KIKI (obstructive sleep apnea) Other complications of skin graft (allograft) (autograft) Pleural effusion, left Pulmonary embolism Rheumatoid arthritis Rheumatoid arthritis RLS (restless legs syndrome) Sinus tachycardia Home Medications bupropion HCl 300 mg 24 hr tablet, extended release 300 mg PO DAILY mental health 08/25/18 [History Last Taken 08/28/23] ropinirole 2 mg tablet,extended release 24 hr 2 mg PO QHS restless legs 08/25/18 [History Last Taken 09/20/22] rivaroxaban 20 mg tablet (Xarelto) 20 mg PO DAILY blood thinner 06/01/22 [History Last Taken 08/27/23] Probiotic 1 ea PO/SL DAILY IMMUNE HEALTH 09/21/22 [History Last Taken 08/28/23] atenolol 50 mg tablet 50 mg PO DAILY HEART 09/21/22 [History Last Taken 08/28/23] biotin 1 ea PO/SL DAILY SUPPLEMENT 09/21/22 [History Last Taken 08/28/23] brexpiprazole 1 mg tablet (Rexulti) 1 mg PO DAILY MENTAL HEALTH 09/21/22 [Hist ory Last Taken 08/28/23] buspirone 10 mg tablet 10 mg PO DAILY ANXIETY 09/21/22 [History Last Taken 08/28/23] buspirone 10 mg tablet 20 mg PO QHS ANXIETY 09/21/22 [History Last Taken 08/27/23] fluvoxamine 100 mg tablet 100 mg PO DAILY MENTAL HEALTH 09/21/22 [History Last Taken 08/28/23] prednisone 5 mg tablet 10 mg PO DAILY RA 09/21/22 [History Last Taken 08/28/23] pantoprazole 40 mg tablet,delayed release 40 mg PO BID reflux #60 tabs 10/26/22 [Rx Last Taken 08/28/23] sucralfate 1 gram tablet 1 g PO Q6H reflux #120 tabs 10/26/22 [Rx Last Taken 08/28/23] tocilizumab 162 mg/0.9 mL subcutaneous syringe (Actemra) 162 mg subcut .weekly immunosuppressant 03/18/23 [History Last Taken 08/28/23] promethazine 25 mg tablet 25 mg PO Q6H PRN nausea and vomiting #120 tabs 04/11/23 [Rx Last Taken Unknown] duloxetine 30 mg capsule,delayed release 30 mg PO DAILY mental health 06/29/23 [History Last Taken 08/28/23] quetiapine 50 mg tablet 50 mg PO QHS sleep 06/29/23 [History Last Taken 08/27/23] semaglutide 0.25 mg or 0.5 mg (2 mg/3 mL) subcutaneous pen injector (Ozempic) 0.5 mg subcut QWEEK diabetes 06/29/23 [History Last Taken Unknown] tizanidine 4 mg tablet 4 mg PO QHS spasms 06/29/23 [History Last Taken Unknown] triamcinolone acetonide 0.025 % topical cream 1 applic topical BID PRN celiac rash 06/29/23 [History Last Taken Unknown] pramipexole 0.75 mg tablet 0.75 mg PO TID restless leg 08/17/23 [History Last Taken Unknown] acetaminophen 325 mg tablet 1,000 mg (3.0769 x 325 mg) PO Q8H PRN PRN Fever, pain 1-1010 #0 tabs 08/23/23 [Rx Last Taken 09/14/23] buprenorphine HCl 150 mcg buccal film (Belbuca) 150 mcg buccal Q12H pain relief 3 days #6 ea 08/23/23 [Rx Last Taken Unknown] ferrous sulfate 325 mg (65 mg iron) tablet (FeroSul) 325 mg PO QODAY@1200 anemia #0 tabs 08/23/23 [Rx Last Taken 08/27/23] quetiapine 25 mg tablet 25 mg PO .at bedtime sleep 08/28/23 [History Last Taken 08/27/23] amoxicillin 875 mg-potassium clavulanate 125 mg tablet 1 tab PO BID infection #10 tabs 09/12/23 [Rx Last Taken Unknown] Allergy/AdvReac Type Severity Reaction Status Date / Time adhesive tape AdvReac Rash Verified 06/29/23 09:22 Family History (Updated 09/10/23 @ 21:[address] Berna Cisneros MD) Mother Cancer Lung CA w/ concurrent tobacco use. Heart disease Father No problems noted. Surgical History History of fasciotomy History of hysterectomy History of total bilateral knee replacement S/P pericardial window creation Social History household members: family Smoking Status: Never smoker alcohol intake: never substance use type: does not use ROS Constitutional Constitutional: Denies anorexia, chills or fatigue Eyes Eyes: Denies blurry vision ENT HEENT: Denies abnormal hearing Respiratory/Chest Respiratory/Chest: Denies cough or dyspnea Gastrointestinal Gastrointestinal: Denies abdominal pain, nausea or vomiting Genitourinary Genitourinary: Reports change in urinary stream Physical Exam Const alert and oriented x3 HEENT normocephalic Eyes PERRL Lymph Lymphatic: no lymphadenopathy noted Resp normal respiratory effort Cardio Rate: regular rate Rhythm: regular rhythm GI soft to palpation and non-tender Extremity normal to inspection Lab / Micro Data 09/17/23 01:30 09/17/23 01:30 Labs: Laboratory Results - last 24 hr 09/14/23 04:26: ADITI-1 Antibody Not Reportable, SS-A/Ro IgG Antibody Not Reportable, SS-B/La IgG Antibody Not Reportable, Sm (Garvey) Antibody Not Reportable, SCHOOL PSYCHOLOGY PROFESSOR Antibody Not Reportable, Scl-70 Scleroderma Ab Not Reportable, Double Strand DNA Ab Not Reportable, Centromere B Antibody Not Reportable 09/14/23 21:25: Complement C3 152, Complement C4 30 09/17/23 01:30: WBC 10.3, RBC 3.19 L, Hgb 7.3 L, Hct 25.7 L, MCV 80.6 L, MCH 22.9 L, MCHC 28.4 L, RDW Std Deviation 59.3 H, RDW Coeff of [place] 20.3 H, Plt Count 634 H, MPV 9.0, Immature Gran % (Auto) 0.400, Neut % (Auto) 83.4 H, Lymph % (Auto) 10.1 L, [place] % (Auto) 4.6, Eos % (Auto) 0.9, Baso % (Auto) 0.6, Absolute Neuts (auto) 8.6 H, Absolute Lymphs (auto) 1.04, Nucleated RBC % 0, Anisocytosis RARE, Ovalocytes 1+, APTT 59.1 H, Sodium 132 L, Potassium 5.3 H, Chloride 103, Carbon Dioxide 21.0, Anion Gap 8, BUN 52 H, Creatinine 9.43 H*, Estim Creat Clear Calc 11.22, Est GFR (MDRD) Af Amer 6 L, Est GFR (MDRD) Non-Af 5 L, BUN/Creatinine Ratio 5.5 L, Glucose 95, Calcium 9.2 09/17/23 07:36: APTT 39.3 H 09/17/23 11:20: Phosphorus 7.0 H, Magnesium 2.0, Blood Type O POSITIVE, Antibody Screen NEGATIVE, Crossmatch See Detail
--- NOTE | 2023-09-17 15:38 | PCM.PN.HOSP ---
Reason for Visit Reason for Visit: Diagnoses Type 2 diabetes mellitus without complications (09/13/23) Cellulitis, unspecified (09/13/23) Rheumatoid arthritis, unspecified (09/13/23) Acute kidney failure, unspecified (09/13/23) Objective Data Objective Data Vital Signs: Vital Signs Temp Pulse Resp BP Pulse Ox O2 Del Method O2 Flow Rate 97.9 F 80 16 159/70 H 96 Room Air 2 09/17/23 13:43 09/17/23 13:43 09/17/23 13:44 09/17/23 13:43 09/17/23 13:43 09/17/23 13:43 09/17/23 08:25 Oxygen Flow Rate (L/min) 2 Oxygen Delivery Method Room Air Weight: 365 lb 4.895 oz Body Mass Index (BMI) 58.7 Intake & Output: Intake and Output for Last 24 Hours 09/15/23 09/16/23 09/17/23 23:59 23:59 23:59 Intake Total 2824.00 / 2824.00 962.00 / 962.00 668.75 / 668.75 Output Total 635 / 635 650 / 650 1300 / 1300 Balance 2189.00 / 2189.00 312.00 / 312.00 -631.25 / -631.25 Lab / Micro Data 09/17/23 01:30 09/17/23 01:30 Labs: Laboratory Results - last 24 hr 09/14/23 04:26: ADITI-1 Antibody Not Reportable, SS-A/Ro IgG Antibody Not Reportable, SS-B/La IgG Antibody Not Reportable, Sm (Garvey) Antibody Not Reportable, RESIDENT MEDICAL OFFICER Antibody Not Reportable, Scl-70 Scleroderma Ab Not Reportable, Double Strand DNA Ab Not Reportable, Centromere B Antibody Not Reportable 09/14/23 21:25: Complement C3 152, Complement C4 30 09/17/23 01:30: WBC 10.3, RBC 3.19 L, Hgb 7.3 L, Hct 25.7 L, MCV 80.6 L, MCH 22.9 L, MCHC 28.4 L, RDW Std Deviation 59.3 H, RDW Coeff of Chepe 20.3 H, Plt Count 634 H, MPV 9.0, Immature Gran % (Auto) 0.400, Neut % (Auto) 83.4 H, Lymph % (Auto) 10.1 L, [place] % (Auto) 4.6, Eos % (Auto) 0.9, Baso % (Auto) 0.6, Absolute Neuts (auto) 8.6 H, Absolute Lymphs (auto) 1.04, Nucleated RBC % 0, Anisocytosis RARE, Ovalocytes 1+, APTT 59.1 H, Sodium 132 L, Potassium 5.3 H, Chloride 103, Carbon Dioxide 21.0, Anion Gap 8, BUN 52 H, Creatinine 9.43 H*, Estim Creat Clear Calc 11.22, Est GFR (MDRD) Af Amer 6 L, Est GFR (MDRD) Non-Af 5 L, BUN/Creatinine Ratio 5.5 L, Glucose 95, Calcium 9.2 09/17/23 07:36: APTT 39.3 H 09/17/23 11:20: Phosphorus 7.0 H, Magnesium 2.0, Blood Type O POSITIVE, Antibody Screen NEGATIVE, Crossmatch See Detail Physical Exam Narrative Seen and examined. Further worsening of creatinine. Urine about 400 mL/day. Mild nausea but no vomiting. Discussed with the machine feeder floorperson. Exact cause of JAGDISH unclear.CT abdomen did not show hydronephrosis. Reported normal right and left kidney. During previous hospital, patient was discharged on 09/12 with normal creatinine and then admitted with JAGDISH creatinine about 5.0 Physical exam General: Alert, Oriented x3, Cooperative, Morbid obesity BMI 58.9 kg/m?. HEENT: Atraumatic, PERRLA, EOMI, Normocephalic Oral: Oral mucosa moist. No Gingival or Mucosal Lesions/ Ulcerations Neck: Supple, No JVD, Negative Carotid Bruits Chest wall/Lungs: Air entry diminished in bilateral lung bases. No crepitation/rhonchi Cardiovascular: Regular rate, Regular Rhythm, Normal S1, Normal S2, No M/G/R Abdomen: Bowel Sounds Present, Soft, Non Tender, Non-Distended : Kamara catheter, urine clear, increased in amount. No dysuria. No renal angle tenderness. No suprapubic tenderness. Extremities: mild bilateral pitting. Edema, Capillary Refill Less than 3 Seconds Skin: No rashes, No breakdown Musculoskeletal: No Tenderness to Palpation of Joints or Extremities. Chronic degenerative arthritis. Neurological: Cranial nerves II-XII grossly intact, DTR 2+/4. No acute focal neurological deficit. Psych/Mental Status: Flat affect. History of anxiety and depression Assessment & Plan Assessment/Plan (1) JAGDISH (acute kidney injury): (2) Cellulitis: (3) Rheumatoid arthritis: (4) Diabetes mellitus, type 2: PLAN: Plan This is 52-year-old female with multiple comorbidities and multiple medications is directly admitted from [facility] ED when she came there with no urine output for 24 hours with creatinine 5.0, safety of JAGDISH. #Acute kidney failure -Kidney function here 09/11 with creatinine of 0.88, on 09/12 at outlying facility was 4.6 and trended up to 4.97 09/14: Creatinine went up 6.27, BUN 36 BUNs/creatinine ratio 5.7. Electrolytes in normal range. Anion gap 7, bicarb 26. Patient not showing signs of confusion or uremia. Imaging Technologist consulted and discussed in the morning. Kamara catheter was inserted and shows 200 mL pinkish urine. -Reportedly renal and bladder ultrasound only with 30 mL in bladder otherwise no significant abnormalities UA here shows WBC 10-25 cells, LE 500, nitrite negative. Urine osmolality 160. Total protein 84, random sodium 53 creatinine 27.4. U tox positive of ecstasy. -ESR and CRP elevated. Autoimmune markers pending. RF 248 09/15: Further worsening of creatinine. Protein creatinine ratio 3.09 mg/g of creatinine. Random protein 84, Sodium 53, potassium 10. Chloride 49. Pinkish color. UA shows RBC 0-5 cells. Repeat UA. CK is normal 39. Hypoalbuminemia 1.9. CT abdomen reviewed shows normal kidneys. No hydronephrosis. Patient has Kamara catheter 09/16: Nonoliguric JAGDISH. Creatinine further increased to 8.59. Patient had 630 mL yesterday. 650 mL since midnight, total cumulative since admission 1635 mL. The patient going for kidney biopsy. Heparin drip is stopped around 8:00 probably will go around 12 noon. Discussed about the U tox positive after she may be a byproduct/metabolite of bupropion, patient's home medication. Patient denies using Actros D. 08/23: Nonoliguric JAGDISH. Total 650 mL urine output yesterday and 1300 mL so far today. Phosphorus 7.0, magnesium 2.0. Mild hypokalemia K5.3. Sodium 132. BUNs/creatinine 52/9.43. Worsening uremia. Kidney biopsy result pending. Discussed with the machine feeder floorperson. Plan for permacath. Continue heparin drip for now. Patient has 1 peripheral line and 1 heparin drip is on hold, can give 1 PRBC transfusion. C3 and C4 normal. C ANCA, atypical p-ANCA in normal range. CCP 70, RF elevated. # Left lower extremity cellulitis -Discharged yesterday on Augmentin Transition to IV antibiotics while admitted # History of DVT/PE with MTHFR mutation transition from Xarelto to heparin drip in the event patient needs something like kidney biopsy and given kidney function would not want to give Xarelto # Acute severe anemia on baseline chronic anemia -Hgb 8.3, was 7.6 on discharge -No acute evidence of bleeding at this time 09/14: Hemoglobin dropped to 6.9. 1 PRBC transfusion ordered. 09/15: Patient had 1 unit of PRBC transfusion hemoglobin 8.0. On IV heparin drip. 09/17: Hemoglobin dropped to 7.3. Monitor PRBC transfusion before permacath tomorrow AM. #GERD -Continue PPI 09/15: Patient complained of midsternal burning chest pain. Patient on PPI. #Type 2 diabetes mellitus -Glucose checks and sliding scale insulin Glucose 74 in BMP. #Morbid obesity -BMI 58.9 kg/m? -Complicates treatment, prognosis, outcomes -Recommend weight loss and lifestyle changes # Anxiety and depression -Patient on multiple medications, specifically she is on an SNRI duloxetine with an SSRI Luvox, these are contraindicated together so should not be given together, will be holding duloxetine either way given her kidney function. Hold BuSpar for her creatinine clearance less than 5. There is significant drug drug interaction with Wellbutrin and SSRI, Luvox and tizanidine which increases the chance of serotonin syndrome with a strong drug drug interaction therefore contraindicated. so we will continue fluvoxamine, will also have to hold BuSpar due to her kidney function Discontinue Wellbutrin. Discontinue tizanidine. -Pt also on rexulti # Chronic back pain -PT/OT -Supportive care -Continue home medications # RA -Patient on 10 mg of prednisone daily # RLS -On pramipexole and ropinirole but will hold due to kidney function #DVT ppx: heparin gtt Total time of the visit including total time spent in counseling or coordination of care, (more than 50% of the total time, spent in obtaining medical information from nurses and other ancillary care providers,explaining to the patient about labs, imaging, diagnosis and management of active complex medical conditions), discussion with the machine feeder floorperson, clinical update including all differential given to patient and her mother on the phone, including that patient might need dialysis although does not seem emergent, review of labs and imaging is 40 minutes. Laboratory Results 09/14/23 04:26: ADITI-1 Antibody Not Reportable, SS-A/Ro IgG Antibody Not Reportable, SS-B/La IgG Antibody Not Reportable, Sm (Garvey) Antibody Not Reportable, RESIDENT MEDICAL OFFICER Antibody Not Reportable, Scl-70 Scleroderma Ab Not Reportable, Double Strand DNA Ab Not Reportable, Centromere B Antibody Not Reportable 09/14/23 21:25: Complement C3 152, Complement C4 30 09/17/23 01:30: WBC 10.3, RBC 3.19 L, Hgb 7.3 L, Hct 25.7 L, MCV 80.6 L, MCH 22.9 L, MCHC 28.4 L, RDW Std Deviation 59.3 H, RDW Coeff of Chepe 20.3 H, Plt Count 634 H, MPV 9.0, Immature Gran % (Auto) 0.400, Neut % (Auto) 83.4 H, Lymph % (Auto) 10.1 L, [place] % (Auto) 4.6, Eos % (Auto) 0.9, Baso % (Auto) 0.6, Absolute Neuts (auto) 8.6 H, Absolute Lymphs (auto) 1.04, Nucleated RBC % 0, Anisocytosis RARE, Ovalocytes 1+, APTT 59.1 H, Sodium 132 L, Potassium 5.3 H, Chloride 103, Carbon Dioxide 21.0, Anion Gap 8, BUN 52 H, Creatinine 9.43 H*, Estim Creat Clear Calc 11.22, Est GFR (MDRD) Af Amer 6 L, Est GFR (MDRD) Non-Af 5 L, BUN/Creatinine Ratio 5.5 L, Glucose 95, Calcium 9.2 09/17/23 07:36: APTT 39.3 H 09/17/23 11:20: Phosphorus 7.0 H, Magnesium 2.0, Blood Type O POSITIVE, Antibody Screen NEGATIVE, Crossmatch See Detail Clinical Impression(s) from Imaging Studies Abdomen CT 09/14/23 20:40 IMPRESSION: No hydronephrosis. Charges/Coding Visit Charges Inpatient E&M: 35838 Subs Hosp L2
[2023-09-17 16:36] LABS: Partial Thromboplast Time 74.9 Seconds (24.1-36.2)
[2023-09-17] MEDS: 0.9% Saline Lock 10 ML Syringe IV (18:24)
[2023-09-17] MEDS: Ondansetron 4 MG/2 ML Vial IV (18:24)
[2023-09-17] MEDS: proMETHazine 25 MG Tablet 12.5 MG PO (19:26)
[2023-09-17] MEDS: Acetaminophen 325 MG Tablet 650 MG PO (19:26)
[2023-09-17] MEDS: QUEtiapine 25 MG Tablet 50 MG PO (21:20)
[2023-09-17] MEDS: QUEtiapine 25 MG Tablet PO (21:20)
[2023-09-17 22:15] LABS: Partial Thromboplast Time 51.6 Seconds (24.1-36.2)
[2023-09-18] VITALS (20 sets, daily range): BP systolic 81–165; BP diastolic 61–99; PULSE 76–89; RESP 16–20; TEMP 36.3–36.6; O2SAT 92–100; BMI 58.5; BMI 58.4
[2023-09-18 06:00] LABS: Absolute Lymphocyte Count 1.68 X10^3/uL (0.83-4.51); Absolute Neutrophil Count 7.8 X10^3/uL (2.0-7.7); Basophil# 0.08 X10^3/uL; Basophil% 0.7 % (0-1); Eosinophil# 0.39 X10^3/uL; Eosinophils% 3.6 % (0-5); Hematocrit 29.8 % (37-47); Hemoglobin 8.6 g/dL (12.0-15.0); Lymphocyte # 1.68 X10^3/ul (0.83-4.51); Lymphocyte % 15.3 % (19-41); Mean Corp Hgb Conc 28.9 g/dL (32-36); Mean Corpuscular Hgb 23.8 pg (27.0-32.0); Mean Corpuscular Volume 82.3 fL (81-99); Mean Platelet Vol. 9.7 fl (6.2-12.0); Monocyte% 9.1 % (0-10); NRBC Flagged by Analyzer 0 % (0-5); Neutrophil # 7.75 X10^3/uL (2.7-7.7); Neutrophil % 70.8 % (47-70); POSITIVE MORPHOLOGY YES; Platelet Count 704 K/mm3 (150-450); RBC Distribution Width CV 20.1 % (11.6-14.6); RBC Distribution Width SD 58.6 fl (35.1-43.9); Red Blood Count 3.62 M/mm3 (4.2-5.4)
--- NOTE | 2023-09-18 06:00 | EKG12_ITS ---
Test Reason : PRE-OP Blood Pressure : / mmHG Vent. Rate : 083 BPM Atrial Rate : 083 BPM P-R Int : 134 ms QRS Dur : 084 ms QT Int : 360 ms P-R-T Axes : 043 054 057 degrees QTc Int : 423 ms Normal sinus rhythm Normal ECG When compared with ECG of 10-SEP-2023 18:42, No significant change was found Confirmed by ROBBIE LEON, SHEELA ([id number]), film or videotape editor LYLY KENDALL ([id number]) on 09/23/2023 6:48:21 AM Referred By: Yao German Confirmed By:JOZEF AVALOS MD
[2023-09-18 06:12] LABS: Differential Indicated SCAN CRITERIA MET
[2023-09-18 06:26] LABS: International Normalized Ratio 1.2; Prothrombin Time (Protime)PT. 15.3 SECONDS (11.7-14.9)
[2023-09-18 06:28] LABS: Partial Thromboplast Time 70.1 Seconds (24.1-36.2)
[2023-09-18 06:50] LABS: Anion Gap 9 (5-15); BUN 57 mg/dL (7-18); BUN/Creat Ratio 5.8 RATIO (10-20); Calcium,Total 9.2 mg/dL (8.5-10.1); Chloride 102 mmol/L (98-107); Creatinine, Serum 9.76 mg/dL (0.55-1.02); EST Glomerular Filtration Rate 5 mL/min (>60); Est Glom Filt Rate - Afr Amer 5 mL/min (>60); Estimated Creatinine Clearance 10.82 ml/min; Glucose 99 mg/dL (74-106); Potassium 5.2 mmol/L (3.5-5.1); Sodium Level 135 mmol/L (136-145)
[2023-09-18] MEDS: proCHLORPERazine 10 MG/2 ML Vial 5 MG IV (07:41)
[2023-09-18 07:46] LABS: Anisocytosis 1+; Differential Comment SCANNED
[2023-09-18 09:05] LABS: Hemoglobin A1c 5.4 % (3.8-5.6)
[2023-09-18] MEDS: Pantoprazole Sodium 40 MG Tablet PO ×2 (09:20→22:39)
[2023-09-18] MEDS: Atenolol 25 MG Tablet PO (09:20)
[2023-09-18] MEDS: DULoxetine Hcl 30 MG Capsule PO (09:20)
[2023-09-18] MEDS: Buprenorphine HCl 2 MG TAB.SUBL SL ×2 (09:20→22:38)
[2023-09-18] MEDS: Ampicillin/Sulbactam 3 GM in 0.9% Normal Saline (100mL MB+) 100 ML IV (09:46)
[2023-09-18] MEDS: HYDROmorphone 0.5 MG/0.5 ML SYRINGE IV (09:47)
[2023-09-18] MEDS: 0.9% Saline Lock 10 ML Syringe IV ×2 (09:47→22:39)
--- NOTE | 2023-09-18 11:27 | PN.RENAL_ITS ---
Subjective Subjective Complains of low back pain. Pain is significantly higher than the kidney biopsy spot. Urine is slightly blood-tinged today. Urine output remains okay. Creatinine 9.7. Objective Data Objective Data Vital Signs: Vital Signs Temp Pulse Resp BP Pulse Ox O2 Del Method O2 Flow Rate 97.7 F L 77 18 136/74 H 97 Room Air 2 09/18/23 08:59 09/18/23 08:59 09/18/23 08:59 09/18/23 08:59 09/18/23 08:59 09/18/23 09:06 09/18/23 02:19 Oxygen Flow Rate (L/min) 2 Oxygen Delivery Method Room Air Weight: 165.1 kg Body Mass Index (BMI) 58.5 Intake & Output: Intake and Output for Last 24 Hours 09/16/23 09/17/23 09/18/23 23:59 23:59 23:59 Intake Total 962.00 / 962.00 1269.95 / 1269.95 322.8 / 322.8 Output Total 650 / 650 1650 / 1650 350 / 350 Balance 312.00 / 312.00 -380.05 / -380.05 -27.2 / -27.2 Lab / Micro Data 09/18/23 05:01 09/18/23 05:01 Labs: Laboratory Results - last 24 hr 09/14/23 08:40: Crossmatch See Detail 09/17/23 11:20: Phosphorus 7.0 H, Magnesium 2.0, Blood Type O POSITIVE, Antibody Screen NEGATIVE, Crossmatch See Detail 09/17/23 16:00: APTT 74.9 H 09/17/23 22:00: APTT 51.6 H 09/18/23 05:01: WBC 11.0, RBC 3.62 L, Hgb 8.6 L, Hct 29.8 L, MCV 82.3, MCH 23.8 L, MCHC 28.9 L, RDW Std Deviation 58.6 H, RDW Coeff of Chepe 20.1 H, Plt Count 704 H, MPV 9.7, Immature Gran % (Auto) 0.500, Neut % (Auto) 70.8 H, Lymph % (Auto) 15.3 L, [place] % (Auto) 9.1, Eos % (Auto) 3.6, Baso % (Auto) 0.7, Absolute Neuts (auto) 7.8 H, Absolute Lymphs (auto) 1.68, Nucleated RBC % 0, Differential Comment SCANNED, Anisocytosis 1+, PT 15.3 H, INR 1.2, APTT 70.1 H, Sodium 135 L, Potassium 5.2 H, Chloride 102, Carbon Dioxide 24.0, Anion Gap 9, BUN 57 H, Creatinine 9.76 H*, Estim Creat Clear Calc 10.82, Est GFR (MDRD) Af Amer 5 L, Est GFR (MDRD) Non-Af 5 L, BUN/Creatinine Ratio 5.8 L, Glucose 99, Hemoglobin A1c 5.4, Calcium 9.2 Physical Exam Narrative General: Alert and oriented x3, NAD. HEENT: Normocephalic, atraumatic. Mucous membrane moist without erythema. PERRLA, EOMI. Neck: Supple, no JVD. Trachea is midline. No thyromegaly or lymphadenopathy. Cardiovascular: Normal S1, S2. No rubs, murmurs, or gallops. Respiratory: Lungs are clear to auscultation bilaterally. Abdomen: Obese, normal bowel sounds, soft, nontender, no guarding or rebound, no organomegaly. Extremities: No clubbing, cyanosis, or edema. Assessment & Plan Assessment/Plan (1) JAGDISH (acute kidney injury): PLAN: Plan Impression/Plan: The patient is a 52-year-old woman with past history of type 2 diabetes mellitus, VTE with MTHFR mutation/lupus anticoagulation disorder on rivaroxaban, hypertension, rheumatoid arthritis, KIKI, chronic back pain, anemia, depression, and morbid obesity. Patient was admitted to the hospital on 09/13/2023 with JAGDISH. Acute renal failure. On the , her creatinine was normal and she was discharg ed home. Came back on the with a creatinine of 5. Rapid rise in creatinine within 2 days. Urine analysis shows WBC, RBC, protein. Urine protein creatinine ratio about 3 g. However this urine sample was collected when she was anuric/oliguric with a Kamara catheter hence I am not sure how reliable these are. During her last admission, she was treated for cellulitis received vancomycin, there was 1 trough level which was elevated at 36. She was switched to Augmentin and discharged home with Augmentin. Denies having any rash. CT abdomen without any hydronephrosis CPK levels normal Serologies are normal Kidney biopsy pending results We should have a preliminary results end of today I was told when I called him yesterday. We will plan for dialysis today after catheter placement Further treatment depends on biopsy results
--- NOTE | 2023-09-18 12:50 | PCM.PN.HOSP ---
Reason for Visit Reason for Visit: Abnormal labs Subjective Subjective Patient is a 52-year-old white female who was directly admitted to [facility] on 09/13/2023 after she presented at [facility] ED on the same day due to worsening renal function. She had a recent hospitalization here from 09/10/2023 through 09/12/2023 for nausea and some left lower extremity cellulitis. Cellulitis improved on IV antibiotics and she was discharged on 09/12 on Augmentin. She then began not feeling well again so she presented to [facility] where she was found to have a creatinine of 4.6. Her renal bladder ultrasound showed only 30 mL of urine and her UA was fairly benign. Her creatinine increased to 4.97 with a BUN of 31 so we were contacted for transfer and nephrology evaluation. She was admitted to the medical floor to initiate workup. On the a.m. of the she was found to have a hemoglobin of 6.9 which was typical for her hemoglobin vacillations and she was given 1 unit of packed red blood cells and her hemoglobin has been stable since. Nephrology was consulted. And workup was pursued with repeat renal imaging, serologies for CHIRAG and ANCA's as well as complements since she does have proteinuria, CPK checks and ultimately with those being normal a renal biopsy was recommended. She had no emergent need for dialysis at that time. Renal biopsy was pursued on 09/16/2020 and was consistent with AIN. It is suspected that this is likely medication induced. She had received vancomycin and Zosyn but had received these previously without any issue so the etiology is somewhat unclear at this time. Ultimately dialysis was recommended as her serum creatinine continued to trend up. General surgery was consulted for placement of a tunneled dialysis catheter which was pursued on 09/18/2023. With the findings on the biopsy of a IN we started prednisone 60 mg daily on 09/18/2023 and will follow nephrology's recommendations from that point on. Patient states she is feeling overall okay. Plan is for tunneled dialysis catheter and dialysis later. She had some questions with regards to dialysis and outpatient dialysis after follow-up which were answered. We are still hoping for renal recovery however patient is concerned with what will happen if her kidneys do not recover. Objective Data Objective Data Vital Signs: Vital Signs Temp Pulse Resp BP Pulse Ox O2 Del Method O2 Flow Rate 97.7 F L 77 18 136/74 H 97 Room Air 2 09/18/23 08:59 09/18/23 08:59 09/18/23 08:59 09/18/23 08:59 09/18/23 08:59 09/18/23 09:06 09/18/23 02:19 Oxygen Flow Rate (L/min) 2 Oxygen Delivery Method Room Air Weight: 165.1 kg Body Mass Index (BMI) 58.5 Intake & Output: Intake and Output for Last 24 Hours 09/16/23 09/17/23 09/18/23 23:59 23:59 23:59 Intake Total 962.00 / 962.00 1269.95 / 1269.95 322.8 / 322.8 Output Total 650 / 650 1650 / 1650 1050 / 1050 Balance 312.00 / 312.00 -380.05 / -380.05 -727.2 / -727.2 Lab / Micro Data 09/18/23 05:01 09/18/23 05:01 Labs: Laboratory Results - last 24 hr 09/14/23 08:40: Crossmatch See Detail 09/17/23 11:20: Blood Type O POSITIVE, Antibody Screen NEGATIVE, Crossmatch See Detail 09/17/23 16:00: APTT 74.9 H 09/17/23 22:00: APTT 51.6 H 09/18/23 05:01: WBC 11.0, RBC 3.62 L, Hgb 8.6 L, Hct 29.8 L, MCV 82.3, MCH 23.8 L, MCHC 28.9 L, RDW Std Deviation 58.6 H, RDW Coeff of Chepe 20.1 H, Plt Count 704 H, MPV 9.7, Immature Gran % (Auto) 0.500, Neut % (Auto) 70.8 H, Lymph % (Auto) 15.3 L, [place] % (Auto) 9.1, Eos % (Auto) 3.6, Baso % (Auto) 0.7, Absolute Neuts (auto) 7.8 H, Absolute Lymphs (auto) 1.68, Nucleated RBC % 0, Differential Comment SCANNED, Anisocytosis 1+, PT 15.3 H, INR 1.2, APTT 70.1 H, Sodium 135 L, Potassium 5.2 H, Chloride 102, Carbon Dioxide 24.0, Anion Gap 9, BUN 57 H, Creatinine 9.76 H*, Estim Creat Clear Calc 10.82, Est GFR (MDRD) Af Amer 5 L, Est GFR (MDRD) Non-Af 5 L, BUN/Creatinine Ratio 5.8 L, Glucose 99, Hemoglobin A1c 5.4, Calcium 9.2 Physical Exam Const alert, oriented x3, no apparent distress and well nourished; Negative for average body habitus or healthy appearing Constitutional Narrative: Super morbidly obese, white female, sitting up in a chair at the bedside, currently face timing with her mother, appears comfortable and nontoxic HEENT head/scalp atraumatic, moist oral mucous membranes and oropharynx normal HEENT Narrative: Mallampati 3-4, no thrush Head and Scalp: normocephalic Resp normal respiratory effort, no retractions, no use of accessory muscles and clear to auscultation bilaterally Auscultation: Negative for rales, rhonchi or wheezes Cardio regular rate, regular rhythm, S1 normal heart sound, S2 normal heart sound, no murmurs, no rub, no gallops and no clicks Cardio Narrative: Distant due to body habitus GI normal to inspection, nondistended, normoactive bowel sounds, soft to palpation and non-tender GI Narrative: Large protuberant abdomen Extremity Extremity Narrative: Chronic bilateral lower extremity lymphedema noted with healing cellulitis, no clubbing or cyanosis Neuro oriented x3, moves all extremities and no focal motor deficits Speech: speech normal Psych affect normal Psych Narrative: Interacts appropriately, eye contact is good Assessment & Plan Assessment/Plan (1) JAGDISH (acute kidney injury): (2) AIN (acute interstitial nephritis): (3) Hyperkalemia: PLAN: Plan JAGDISH secondary to AIN -Inciting antibiotic/drug is unclear -Patient did not take any dose of Augmentin so doubtful that it is this -Serum creatinine is up to 9.76 -Stop home prednisone and start prednisone 60 mg daily -Tunneled dialysis catheter to be placed today with dialysis starting later today--> appreciate general surgery assistance -Serology was unremarkable -Biopsy done 09/16/2023 which demonstrated AIN Hyperkalemia -Mild at 5.2 -Plan is for dialysis later today Lower extremity cellulitis -Continue home Unasyn and transition back to Augmentin at discharge Acute on chronic anemia -Hemoglobin was 6.9 on 09/14/2023 after being discharged at hemoglobin of 8.1 -1 unit packed red blood cells given on 09/14/2023 with improvement to 8.6 -Hemoglobin since that point in time has been relatively stable and at 8.6 today -Continue to monitor with low threshold for further evaluation given history of GI bleed -Continue heparin drip for now -Continue home iron supplementation Hypertension -Continue home atenolol Rheumatoid arthritis -Hold home immunosuppression and restart when appropriate as an outpatient(Actemra) -Stop home prednisone as we are starting higher dose of prednisone at 60 mg daily for the above GERD/chronic abdominal pain/gastroparesis/esophageal varices/gastric ulcers/portal hypertensive gastropathy -Continue Protonix 40 mg but increase to twice daily with history of ulcers and requirement for increased dosing of prednisone -Recommend continued outpatient GI follow-up Hepatosteatosis -Patient follows as an outpatient with GI -Recommend continued outpatient follow-up History of pulmonary embolism/MTHFR mutation/lupus anticoagulant disorder -Patient had been on Xarelto but currently on hold due to renal dysfunction -Continue heparin drip for now KIKI -Strongly encourage compliance with BiPAP/CPAP DM-2 -Ozempic on hold -Hemoglobin A1c was 5.4 in the setting of anemia -Will monitor but may need SSI if prednisone drives up blood sugars Restless leg syndrome -Continue home Mirapex Depression/anxiety -Continue home Wellbutrin -Continue home BuSpar -Continue home duloxetine -Continue home fluvoxamine -Continue home Seroquel -Continue home Rexulti Chronic pain -Continue home medications DVT prophylaxis Full anticoagulation with Xarelto CODE STATUS -full code Charges/Coding Visit Charges Inpatient E&M: 39715 Subs Hosp L2
--- NOTE | 2023-09-18 13:46 | CASEMGMT ---
Dr. Tomas states that the pt will be getting a tunneled cath for HD and that the plan is to dialyze the pt today and also tomorrow. Dr. Tomas requests the pt to be set up for OP dialysis after time of DC. ZENON CM to pt room at this time. Pt was given a local list of in network dialysis companies and the pt states that her family member had a history at [facility] and that the pt would like to go to [facility] in [place]. Pt states the [place] branch would be her next option. Pt states that she prefers early afternoon and prefers the // rotation. Pt states that she would not want to start until Saturday (09/23). Referral sent to [facility] at this time via the referral portal.
[2023-09-18] MEDS: 0.9% Normal Saline (1000mL) 1,000 ML 15 ML IV (14:53)
[2023-09-18] MEDS: Lidocaine 1% /Epi 1:100 (20ml) 20 ML Vial (16:03)
[2023-09-18] MEDS: Heparin 10,000 UNITS/10 ML Vial 10000 UNITS (16:03)
--- NOTE | 2023-09-18 16:27 | PCM.OPRPT ---
Report of Operation Date of Procedure: 09/18/23 Pre-Operative Diagnosis: Acute kidney injury, need for dialysis Post-Operative Diagnosis: Same Surgery/Procedure Performed:: Ultrasound and fluoroscopy guided right tunneled temporary dialysis catheter placement utilizing right IJ Type of Anesthesia: Local MAC Estimated Blood Loss (mL): 10 Description of Procedure: Patient was brought back to the operating room and the right neck and chest were prepped and draped in usual sterile fashion. Local anesthetic was injected into the neck and the chest wall. Next an incision was made over the jugular as well as over the chest wall. Using ultrasound guidance needle was used to access the jugular vein and a guidewire was placed under fluoroscopy guidance. The needle was removed over the guidewire and serial dilators and the peel-away sheath were placed over the wire under fluoroscopy guidance. Next the wire was removed and the peel-away sheath was left in place and it was capped. Next an incision was made in the chest and the catheter was tunneled from the chest incision to the neck incision. The catheter was then placed into the peel-away sheath and the peel-away sheath was removed. The catheter appeared in good position on x-ray. Next both of the catheters were aspirated and flushed. Both aspirated and flushed easily. Both were then flushed with 2 cc of heparinized saline and then clamped and capped. Next local anesthetic was injected into the skin and the catheter was sutured to the skin using 3-0 nylon. The neck incision was closed using a 3-0 Vicryl suture. Steri-Strips and bandages were applied. Patient was taken to PACU in stable condition and chest x-ray will be obtained. Grafts/Implants Used: 23 cm curved palindrome temporary dialysis catheter in right IJ Admit VTE Documentation VTE Mechan Device Prophylaxis: SCD's
--- NOTE | 2023-09-18 16:55 | RAD_ITS ---
STUDY: X-RAY CHEST REASON FOR EXAM: Female, 52 years old. line placement -- in pacu TECHNIQUE: AP portable COMPARISON: 11/09/2023 FINDINGS: Bilateral perihilar interstitial infiltrate or pulmonary edema more pronounced in the lower lobes. There is no demonstrated pleural abnormality. Dialysis catheter placement on the right with tip in the right atrium Heart is enlarged. Normal mediastinum and xiomara. Normal visualized pulmonary arteries. Normal visualized aortic arch and descending thoracic aorta. Normal visualized thoracic spine. Normal visualized ribs, clavicles, and shoulders. There is no demonstrated abnormality of the visualized soft tissue structures of the upper abdomen. RAD/CXR for Line Placement IMPRESSION: Probable pulmonary edema possibly due to congestive failure. No pneumothorax status post dialysis catheter placement Electronically Signed: Eric Gastelum MD at 17:46 EST ,
[2023-09-18] MEDS: predniSONE 20 MG Tablet 60 MG PO (18:02)
[2023-09-18] MEDS: 0.9% Normal Saline 1,000 ML IV.SOLN. 1000 ML OPERA.SITE (18:11)
[2023-09-18] MEDS: PureFlow B 2K Dialysis Soln 1 BAG 6 BAG PF (18:11)
[2023-09-18] MEDS: Heparin 10,000 UNITS/10 ML Vial IV (19:10)
[2023-09-18 22:09] LABS: Partial Thromboplast Time 38.8 Seconds (24.1-36.2)
[2023-09-18] MEDS: Pramipexole Di-HCl 0.5 MG Tablet 0.75 MG PO (22:38)
[2023-09-18] MEDS: Senna/Docusate Sodium 1 Tablet 2 TABLET PO (22:38)
[2023-09-18] MEDS: QUEtiapine 25 MG Tablet 50 MG PO (22:39)
[2023-09-18] MEDS: HEPARIN/D5w 25,000 UNITS 25,000 UNITS/250 ML IV.SOLN. 20 UNITS CONT INF (22:39)
[2023-09-18] MEDS: QUEtiapine 25 MG Tablet PO (22:39)
[2023-09-18] MEDS: Miconazole Nitrate 43 GM Bottle 1 APPLIC TOPICAL (22:51)
[2023-09-19] VITALS (12 sets, daily range): BP systolic 121–184; BP diastolic 81–96; PULSE 82–86; RESP 15–20; TEMP 36.4–36.6; O2SAT 95–99; BMI 60.4; BMI 60.1
[2023-09-19] MEDS: Heparin Injection (Vial) 5,000 UNIT/ML VIAL IV (05:45)
[2023-09-19] MEDS: Pramipexole Di-HCl 0.5 MG Tablet 0.75 MG PO ×2 (06:23→13:36)
[2023-09-19 06:49] LABS: Absolute Lymphocyte Count 0.93 X10^3/uL (0.83-4.51); Absolute Neutrophil Count 7.4 X10^3/uL (2.0-7.7); Basophil# 0.03 X10^3/uL; Basophil% 0.3 % (0-1); Eosinophil# 0.01 X10^3/uL; Eosinophils% 0.1 % (0-5); Hematocrit 29.3 % (37-47); Hemoglobin 8.4 g/dL (12.0-15.0); Lymphocyte # 0.93 X10^3/ul (0.83-4.51); Lymphocyte % 10.8 % (19-41); Mean Corp Hgb Conc 28.7 g/dL (32-36); Mean Corpuscular Hgb 23.9 pg (27.0-32.0); Mean Corpuscular Volume 83.5 fL (81-99); Mean Platelet Vol. 9.7 fl (6.2-12.0); Monocyte# 0.21 X10^3/uL; Monocyte% 2.4 % (0-10); NRBC Flagged by Analyzer 0 % (0-5); Neutrophil # 7.35 X10^3/uL (2.7-7.7); Neutrophil % 85.8 % (47-70); POSITIVE MORPHOLOGY YES; Platelet Count 682 K/mm3 (150-450); RBC Distribution Width CV 20.8 % (11.6-14.6); RBC Distribution Width SD 61.8 fl (35.1-43.9); Red Blood Count 3.51 M/mm3 (4.2-5.4); White Blood Count 8.6 K/mm3 (4.4-11.0)
[2023-09-19 07:09] LABS: Anion Gap 8 (5-15); BUN 50 mg/dL (7-18); Calcium,Total 8.9 mg/dL (8.5-10.1); Chloride 105 mmol/L (98-107); Creatinine, Serum 8.29 mg/dL (0.55-1.02); EST Glomerular Filtration Rate 5 mL/min (>60); Est Glom Filt Rate - Afr Amer 7 mL/min (>60); Estimated Creatinine Clearance 13.01 ml/min; Glucose 102 mg/dL (74-106); Potassium 5.4 mmol/L (3.5-5.1); Sodium Level 137 mmol/L (136-145)
[2023-09-19 07:15] LABS: Differential Indicated SCAN CRITERIA MET
[2023-09-19 07:40] LABS: Partial Thromboplast Time 37.1 Seconds (24.1-36.2)
[2023-09-19] MEDS: 0.9% Normal Saline 1,000 ML IV.SOLN. 1000 ML OPERA.SITE (08:02)
[2023-09-19] MEDS: PureFlow B 2K Dialysis Soln 1 BAG 6 BAG PF (08:02)
[2023-09-19] MEDS: 0.9% Saline Lock 10 ML Syringe IV (08:03)
--- NOTE | 2023-09-19 08:26 | PCM.PN.SRG ---
Subjective Subjective Patient is s/p right chest IJ tunneled dialysis catheter placement by Dr. Beckham on 09/18. Patient tolerated the procedure well. Patient was able to use the catheter last night without any issues. Patient notes some discomfort in the right neck puncture site. Objective Data Objective Data Vital Signs: Vital Signs Temp Pulse Resp BP Pulse Ox O2 Del Method O2 Flow Rate 97.6 F L 82 16 155/83 H 98 Nasal Cannula 2 09/19/23 05:00 09/19/23 08:01 09/19/23 08:01 09/19/23 08:01 09/19/23 08:02 09/19/23 08:02 09/19/23 08:02 Oxygen Flow Rate (L/min) 2 Oxygen Delivery Method Nasal Cannula Weight: 375 lb 14.21 oz Body Mass Index (BMI) 60.4 Intake & Output: Intake and Output for Last 24 Hours 09/17/23 09/18/23 09/19/23 23:59 23:59 23:59 Intake Total 1269.95 / 1269.95 542.8 / 542.8 142 / 142 Output Total 1650 / 1650 1750 / 1750 Balance -380.05 / -380.05 -1207.2 / -1207.2 142 / 142 Lab / Micro Data 09/19/23 04:53 09/19/23 04:53 Labs: Laboratory Results - last 24 hr 09/18/23 05:01: Hemoglobin A1c 5.4 09/18/23 21:40: APTT 38.8 H 09/19/23 04:53: WBC 8.6, RBC 3.51 L, Hgb 8.4 L, Hct 29.3 L, MCV 83.5, MCH 23.9 L, MCHC 28.7 L, RDW Std Deviation 61.8 H, RDW Coeff of Chepe 20.8 H, Plt Count 682 H, MPV 9.7, Immature Gran % (Auto) 0.600, Neut % (Auto) 85.8 H, Lymph % (Auto) 10.8 L, [place] % (Auto) 2.4, Eos % (Auto) 0.1, Baso % (Auto) 0.3, Absolute Neuts (auto) 7.4, Absolute Lymphs (auto) 0.93, Nucleated RBC % 0, APTT 37.1 H, Sodium 137, Potassium 5.4 H, Chloride 105, Carbon Dioxide 24.0, Anion Gap 8, BUN 50 H, Creatinine 8.29 H*, Estim Creat Clear Calc 13.01, Est GFR (MDRD) Af Amer 7 L, Est GFR (MDRD) Non-Af 5 L, BUN/Creatinine Ratio 6.0 L, Glucose 102, Calcium 8.9 Radiography Diagnostic Testing: Radiology Impression Chest X-Ray 09/18/23 16:55 IMPRESSION: Probable pulmonary edema possibly due to congestive failure. No pneumothorax status post dialysis catheter placement Electronically Signed: Eric Gastelum MD at 17:46 EST Reading Location ID and State: [facility] / [place] Tel , Service support , Physical Exam Chest Chest Narrative: Right chest- tunneled catheter intact with no active oozing or bleeding. Op-site was removed from the right neck puncture site. Steri-strips remain in place. Assessment & Plan Assessment/Plan (1) End stage renal failure on dialysis: PLAN: I am following this patient in conjunction with Dr. Green in Dr. Beckham's absence. Right chest catheter functioning well We will sign off at this time Please reconsult if needed. Thank you Charges/Coding Visit Charges Inpatient E&M: 84717 Subs Hosp L1 (post-op; no charge)
[2023-09-19 09:32] LABS: Hepatitis B Surface Antigen Non-Reactive (Nonreactive)
[2023-09-19] MEDS: Heparin 10,000 UNITS/10 ML Vial IV (10:08)
--- NOTE | 2023-09-19 10:20 | CASEMGMT ---
Addendum entered by Camilo Higginbotham 09/19/23 15:46: ZENON ROMAN spoke w/Tabatha Lane @ [facility], who verifies pt has been cleared for OP HD and no further information/documentation needed. Addendum entered by Camilo Higginbotham 09/19/23 15:28: ZENON ROMAN spoke w/Tabatha Lane @ [facility] re: if insurance clearance has been obtained. She states, It will be fine . Treatment schedule received via [facility] portal and showing chair time of 12:00 PM T/TH/S. ZENON ROMAN placed call to Abena [facility] and she was made aware pt is discharging home today and verified she will be coming for 1st OP HD tx on Saturday. She states pt's chair time has now been moved to 11:40 AM and pt to arrive @ 11:10 AM on Saturday for her 1st treatment. Pt made aware and was provied w/Treatment schedule letter w/time change to 11:40 AM. Pt made aware to take insurance cards to this appt. Addendum entered by Camilo Higginbotham 09/19/23 14:08: Cynthia d/c certified financial planner certified anesthesiologist assistant, to notify [facility] that pt plans to stay @ her mom's for a few days once returning home. Mom's address added in [employer]. Addendum entered by Camilo Higginbotham 09/19/23 13:43: 12:45 PM: Hep Antibody results sent to [facility] via portal. ZENON ROMAN to room. Pt sitting up in chair in room. She was made aware of HD chair time T/TH/S @ 12 PM and plan is for 1st OP HD to be this Saturday. Pt made aware to arrive 30 min early for the first visit. Questions answered. She states either her mom or sister will be taking her to the 1st appt and then she thinks she will most likely utilize [facility] transportation through her insurance, stating this is who she often uses for appts. She was made aware [facility] will be notified of her discharge and should be contacting her w/in 24-48 hrs after discharge to set up SOC appt. Also made aware [facility] contact info will be in her discharge paperwork. Further questions answered. Original Note: ZENON ROMAN NOTE: HD line placement and CXR confirmation faxed to [facility] at this time and uploaded to [facility] portal. Hep B Antigen results, dialysis treatment, and dialysis orders also sent via [facility] portal. Hep B antibody ordered this AM and will send via [facility] portal when available. Per portal, chair time for pt is /S @ [address]/[facility], they have opening for pt to have 1st OP HD this Saturday. Sharyn GILBERTN RN CM
[2023-09-19 10:24] LABS: Anisocytosis 2+; Differential Comment SCANNED; Macrocytosis 1+; Microcytosis 1+
--- NOTE | 2023-09-19 10:45 | PCM.PN.REN ---
Subjective Subjective Seen and examined while on dialysis today. No overnight events. Patient reports she feels foggy, having difficult time recalling recent events . Objective Data Objective Data Vital Signs: Vital Signs Temp Pulse Resp BP Pulse Ox O2 Del Method O2 Flow Rate 97.6 F L 85 17 163/91 H 96 Room Air 2 09/19/23 05:00 09/19/23 10:25 09/19/23 10:25 09/19/23 10:25 09/19/23 10:25 09/19/23 10:25 09/19/23 09:56 Oxygen Flow Rate (L/min) 2 Oxygen Delivery Method Room Air Weight: 169.7 kg Body Mass Index (BMI) 60.1 Intake & Output: Intake and Output for Last 24 Hours 09/17/23 09/18/23 09/19/23 23:59 23:59 23:59 Intake Total 1269.95 / 1269.95 542.8 / 542.8 142 / 142 Output Total 1650 / 1650 1750 / 1750 1200 / 1200 Balance -380.05 / -380.05 -1207.2 / -1207.2 -1058 / -1058 Lab / Micro Data 09/19/23 04:53 09/19/23 04:53 Labs: Laboratory Results - last 24 hr 09/18/23 21:40: APTT 38.8 H 09/19/23 04:53: WBC 8.6, RBC 3.51 L, Hgb 8.4 L, Hct 29.3 L, MCV 83.5, MCH 23.9 L, MCHC 28.7 L, RDW Std Deviation 61.8 H, RDW Coeff of Chepe 20.8 H, Plt Count 682 H, MPV 9.7, Immature Gran % (Auto) 0.600, Neut % (Auto) 85.8 H, Lymph % (Auto) 10.8 L, [place] % (Auto) 2.4, Eos % (Auto) 0.1, Baso % (Auto) 0.3, Absolute Neuts (auto) 7.4, Absolute Lymphs (auto) 0.93, Nucleated RBC % 0, Differential Comment SCANNED, Anisocytosis 2+, Microcytosis 1+, Macrocytosis 1+, APTT 37.1 H, Sodium 137, Potassium 5.4 H, Chloride 105, Carbon Dioxide 24.0, Anion Gap 8, BUN 50 H, Creatinine 8.29 H*, Estim Creat Clear Calc 13.01, Est GFR (MDRD) Af Amer 7 L, Est GFR (MDRD) Non-Af 5 L, BUN/Creatinine Ratio 6.0 L, Glucose 102, Calcium 8.9, Hep Bs Antigen Non-Reactive Radiography Diagnostic Testing: Radiology Impression Chest X-Ray 09/18/23 16:55 IMPRESSION: Probable pulmonary edema possibly due to congestive failure. No pneumothorax status post dialysis catheter placement Electronically Signed: Eric Gastelum MD at 17:46 EST , Physical Exam Narrative Alert and oriented x3 No obvious distress Normal S1, S2. No rubs, murmurs, or gallops. Lungs are clear to auscultation bilaterally. Abdomen soft, nontender Edema bilateral legs Tunneled HD catheter dressing clean, dry and intact right chest Assessment & Plan Assessment/Plan (1) JAGDISH (acute kidney injury): PLAN: Plan Impression/Plan: The patient is a 52-year-old woman with past history of type 2 diabetes mellitus, VTE with MTHFR mutation/lupus anticoagulation disorder on rivaroxaban, hypertension, rheumatoid arthritis, KIKI, chronic back pain, anemia, depression, and morbid obesity. Patient was admitted to the hospital on 09/13/2023 with JAGDISH. Acute renal failure. On the , her creatinine was normal and she was discharged home. Came back on the with a creatinine of 5. Rapid rise in creatinine within 2 days, SCr peaked 9.76 09/18. 1st HD 09/18. Urine analysis shows WBC, RBC, protein. Urine protein creatinine ratio about 3 g. However this urine sample was collected when she was anuric/oliguric with a Kamara catheter hence I am not sure how reliable these are. During her last admission, she was treated for cellulitis received vancomycin, there was 1 trough level which was elevated at 36. She was switched to Augmentin and discharged home with Augmentin. Denies having any rash. CT abdomen without any hydronephrosis CPK levels normal Serologies are normal Kidney biopsy results AIN. Patient on prednisone 60 mg and to go home on prednisone as directed. Reviewed this with patient. Patient had tunneled hemodialysis catheter placed 09/18 with first HD treatment. Dialysis again today with minimal fluid removal. Once outpatient hemodialysis schedule made (tentative HD schedule TTS at [facility]) and confirmed with patient ok for discharge per renal when cleared by primary team. Discussed with patient today if she is discharged either today or tomorrow then dialysis will be Saturday.
--- NOTE | 2023-09-19 10:50 | CASEMGMT ---
Addendum entered by Cynthia Marcelo 09/19/23 14:26: Discharge summary and patients temporary address sent to [facility] via [facility]. Cynthia Marcelo, Discharge Planning Asst. Original Note: Discharge Planning Resumption HH referral sent via [facility] to [facility]. Cynthia Marcelo, Discharge Planning Asst.
[2023-09-19] MEDS: predniSONE 20 MG Tablet 60 MG PO (11:16)
[2023-09-19] MEDS: Ceftriaxone 2 GM in 0.9% Normal Saline (50mL MB+) 50 ML IV (11:16)
[2023-09-19] MEDS: Buprenorphine HCl 2 MG TAB.SUBL SL (11:16)
[2023-09-19] MEDS: Acetaminophen 325 MG Tablet 650 MG PO (11:17)
[2023-09-19] MEDS: DULoxetine Hcl 30 MG Capsule PO (11:17)
[2023-09-19] MEDS: fluvoxaMINE Maleate 50 MG Tablet PO (11:17)
[2023-09-19] MEDS: Atenolol 25 MG Tablet PO (11:17)
[2023-09-19] MEDS: Pantoprazole Sodium 40 MG Tablet PO (11:17)
[2023-09-19 11:30] LABS: Hepatitis B Surface Antibody Non-Reactive
--- NOTE | 2023-09-19 13:32 | PCM.DC.SUM ---
Providers Date of Admission: 09/13/23 Date of Discharge: 09/19/23 Primary Care Physician: Dr. Tarah Dubon, DO Consultations 09/13/23 16:15 Consult: Nephrology Routine Consulting Provider: Juan Arndt Reason for Consult: JAGDISH unclear cause EMERGENT Consult: No Notified: Yes Date Notified: 09/13/23 Time Notified: 16:15 Method of Notification: Verbal 09/17/23 11:41 Consult: Nephrology Routine Consulting Provider: Keke Green Reason for Consult: JAGDISH needs dialysis catheter EMERGENT Consult: No Notified: Yes Date Notified: 09/17/23 Time Notified: 11:41 Method of Notification: Verbal Reason For Visit: JAGDISH Diagnosis Discharge Diagnosis (1) JAGDISH (acute kidney injury): Status: Acute Code(s): N17.9 - Acute kidney failure, unspecified Plan JAGDISH secondary to AIN -Inciting antibiotic/drug is unclear -Patient did not take any dose of Augmentin so doubtful that it is this -Serum creatinine is up to 9.76 -Stop home prednisone and start prednisone 60 mg daily -Tunneled dialysis catheter to be placed today with dialysis starting later today--> appreciate general surgery assistance -Serology was unremarkable -Biopsy done 09/16/2023 which demonstrated AIN Hyperkalemia -Mild at 5.2 -Plan is for dialysis later today Lower extremity cellulitis -Continue home Unasyn and transition back to Augmentin at discharge Acute on chronic anemia -Hemoglobin was 6.9 on 09/14/2023 after being discharged at hemoglobin of 8.1 -1 unit packed red blood cells given on 09/14/2023 with improvement to 8.6 -Hemoglobin since that point in time has been relatively stable and at 8.6 today -Continue to monitor with low threshold for further evaluation given history of GI bleed -Continue heparin drip for now -Continue home iron supplementation Hypertension -Continue home atenolol Rheumatoid arthritis -Hold home immunosuppression and restart when appropriate as an outpatient(Actemra) -Stop home prednisone as we are starting higher dose of prednisone at 60 mg daily for the above GERD/chronic abdominal pain/gastroparesis/esophageal varices/gastric ulcers/portal hypertensive gastropathy -Continue Protonix 40 mg but increase to twice daily with history of ulcers and requirement for increased dosing of prednisone -Recommend continued outpatient GI follow-up Hepatosteatosis -Patient follows as an outpatient with GI -Recommend continued outpatient follow-up History of pulmonary embolism/MTHFR mutation/lupus anticoagulant disorder -Patient had been on Xarelto but currently on hold due to renal dysfunction -Continue heparin drip for now KIKI -Strongly encourage compliance with BiPAP/CPAP DM-2 -Ozempic on hold -Hemoglobin A1c was 5.4 in the setting of anemia -Will monitor but may need SSI if prednisone drives up blood sugars Restless leg syndrome -Continue home Mirapex Depression/anxiety -Continue home Wellbutrin -Continue home BuSpar -Continue home duloxetine -Continue home fluvoxamine -Continue home Seroquel -Continue home Rexulti Chronic pain -Continue home medications DVT prophylaxis Full anticoagulation with Xarelto CODE STATUS -full code Medications at Discharge Home Medications bupropion HCl 300 mg 24 hr tablet, extended release 300 mg PO DAILY mental health 08/25/18 ropinirole 2 mg tablet,extended release 24 hr 2 mg PO QHS restless legs 08/25/18 rivaroxaban 20 mg tablet (Xarelto) 20 mg PO DAILY blood thinner 06/01/22 Probiotic 1 ea PO/SL DAILY IMMUNE HEALTH 09/21/22 atenolol 50 mg tablet 50 mg PO DAILY HEART 09/21/22 biotin 1 ea PO/SL DAILY SUPPLEMENT 09/21/22 brexpiprazole 1 mg tablet (Rexulti) 1 mg PO DAILY MENTAL HEALTH 09/21/22 buspirone 10 mg tablet 10 mg PO DAILY ANXIETY 09/21/22 buspirone 10 mg tablet 20 mg PO QHS ANXIETY 09/21/22 fluvoxamine 100 mg tablet 100 mg PO DAILY MENTAL HEALTH 09/21/22 prednisone 5 mg tablet 10 mg PO DAILY RA 09/21/22 pantoprazole 40 mg tablet,delayed release 40 mg PO BID reflux #60 tabs 10/26/22 sucralfate 1 gram tablet 1 g PO Q6H reflux #120 tabs 10/26/22 tocilizumab 162 mg/0.9 mL subcutaneous syringe (Actemra) 162 mg subcut .weekly immunosuppressant 03/18/23 promethazine 25 mg tablet 25 mg PO Q6H PRN nausea and vomiting #120 tabs 04/11/23 duloxetine 30 mg capsule,delayed release 30 mg PO DAILY mental health 06/29/23 quetiapine 50 mg tablet 50 mg PO QHS sleep 06/29/23 semaglutide 0.25 mg or 0.5 mg (2 mg/3 mL) subcutaneous pen injector (Ozempic) 0.5 mg subcut QWEEK diabetes 06/29/23 tizanidine 4 mg tablet 4 mg PO QHS spasms 06/29/23 triamcinolone acetonide 0.025 % topical cream 1 applic topical BID PRN celiac rash 06/29/23 pramipexole 0.75 mg tablet 0.75 mg PO TID restless leg 08/17/23 acetaminophen 325 mg tablet 1,000 mg (3.0769 x 325 mg) PO Q8H PRN PRN Fever, pain 1-04/30 #0 tabs 08/23/23 buprenorphine HCl 150 mcg buccal film (Belbuca) 150 mcg buccal Q12H pain relief 3 days #6 ea 08/23/23 ferrous sulfate 325 mg (65 mg iron) tablet (FeroSul) 325 mg PO QODAY@1200 anemia #0 tabs 08/23/23 quetiapine 25 mg tablet 25 mg PO .at bedtime sleep 08/28/23 polyethylene glycol 3350 17 gram oral powder packet 17 g PO BID #0 ea 09/19/23 prednisone 20 mg tablet 60 mg (3 x 20 mg) PO BREAKFAST #42 tabs 09/19/23 Hospital Course Operations - (Tunneled dialysis catheter placement/renal biopsy) Procedures Blood transfusion and EKG Summary of Care Provided Minutes Spent on Discharge: 45 Hospital Course: Ms. Cali is a 52-year-old white female who was directly admitted to [facility] on 09/13/2023 after she presented at [facility] ED on the same day due to worsening renal function. She had a recent hospitalization here from 09/10/2023 through 09/12/2023 for nausea and some left lower extremity cellulitis. Cellulitis improved on IV antibiotics and she was discharged on 09/12 on Augmentin. She then began not feeling well again so she presented to [facility] where she was found to have a creatinine of 4.6. Her renal bladder ultrasound showed only 30 mL of urine and her UA was fairly benign. After admission there, her creatinine increased to 4.97 with a BUN of 31 so we were contacted for transfer and nephrology evaluation. She was admitted to the medical floor to initiate workup. On the a.m. of the she was found to have a hemoglobin of 6.9 which was typical for her hemoglobin vacillations and she was given 1 unit of packed red blood cells and her hemoglobin has been stable since. She had recent EGD and colonoscopy which identified no bleeding. I have asked her to obtain a repeat CBC on 09/23/2023 to reassess her hemoglobin and if positive she will need a transfusion however with recent normal scopes I would recommend that she follow-up with GI for capsule endoscopy to rule out small bowel bleeding and have referred her for GI after discharge. Nephrology was consulted after her arrival here and workup was pursued with repeat renal imaging, serologies for CHIRAG and ANCA's as well as complements since she does have proteinuria, and CPK checks and ultimately with those being normal a renal biopsy was recommended. She had no emergent need for dialysis at that time. Renal biopsy was pursued on 09/16/2020 and was consistent with AIN. Results were received on 09/18/2023 and at that time we started on high pro dose prednisone at 60 mg daily. It is suspected that this is likely medication induced from one of her antibiotics previously. She had received vancomycin and Zosyn but had received these previously without any issue so the etiology is somewhat unclear at this time. Ultimately dialysis was recommended as her serum creatinine continued to trend up. General surgery was consulted for placement of a tunneled dialysis catheter which was pursued on 09/18/2023. She was dialyzed on 09/18/2023 and 09/19/2023 and tolerated dialysis well. Per discussion with nephrology she will have Saturday, , Saturday dialysis with her first outpatient dialysis being this Saturday. This has been arranged by case management and she will proceed with this at [facility] in [place]. Nephrology also recommended that she continue her prednisone 60 mg daily for 2 weeks and then they will wean her as an outpatient. Prescriptions for this were written and faxed to her local pharmacy. She does have a history of gastric ulcers remotely and will be maintained on her Protonix 40 mg p.o. twice daily and her Carafate while she is on her prednisone at higher doses and this can be tapered back by gastroenterology after discharge. As noted previously she had recent EGD and colonoscopy that did not identify any bleeding. She was discharged to her mother's house in stable condition with home health care in stable condition. Again, I have asked that she call her primary care physician and obtain a CBC to be performed on Saturday to reassess her anemia and call Dr. Mcgill's office for outpatient follow-up as she will need a capsule endoscopy as her anemia has required intermittent transfusion. She has completed antibiotics for her lower extremity cellulitis and there is no evidence of cellulitis at the time of discharge. She is to follow-up with her primary care physician within 1 week and she will see nephrology at her dialysis center. Discharge diagnoses: JAGDISH secondary to AIN Hyperkalemia-resolved with dialysis Lower extremity cellulitis-resolved Acute on chronic anemia-needs outpatient capsule endoscopy hypertension Rheumatoid arthritis GERD Chronic abdominal pain/nausea Gastroparesis Esophageal varices Gastric ulcers Portal hypertensive gastropathy Hepatosteatosis History of pulmonary embolism MTHFR mutation Lupus anticoagulant disorder KIKI DM-2 Restless leg syndrome Depression Anxiety Chronic pain Morbid obesity Physical Exam Const alert, oriented x3, no apparent distress and well nourished; Negative for average body habitus or healthy appearing Constitutional Narrative: Super morbidly obese, white female, sitting up in a chair at the bedside, nursing at bedside, appears comfortable and nontoxic General Appearance: cooperative, comfortable, well kempt and well developed Orientation / Consciousness: awake, oriented to person, oriented to place and oriented to time Exam Limitations: no limitations Nutritional Appearance: morbidly obese HEENT normocephalic, head/scalp atraumatic, moist oral mucous membranes and oropharynx normal HEENT Narrative: Mallampati 3-4, no thrush Eyes PERRL and EOMs intact bilaterally Eyes Narrative: No scleral icterus, conjunctiva are pale Neck no lymphadenopathy and supple Neck Narrative: Neck is short and thick, trachea is midline Resp normal respiratory effort, no retractions, no use of accessory muscles and clear to auscultation bilaterally Auscultation: Negative for rales, rhonchi or wheezes Cardio regular rate, regular rhythm, S1 normal heart sound, S2 normal heart sound, no murmurs, no rub, no gallops and no clicks Cardio Narrative: Distant due to body habitus GI normal to inspection, nondistended, normoactive bowel sounds, soft to palpation and non-tender GI Narrative: Large protuberant abdomen Extremity Extremity Narrative: Chronic bilateral lower extremity lymphedema noted with healing cellulitis, no clubbing or cyanosis Skin no rashes or lesions noted, no wounds, skin turgor normal and no jaundice Neuro oriented x3, CN's II-XII intact bilaterally, moves all extremities and no focal motor deficits Speech: speech normal Psych affect normal Psych Narrative: Interacts appropriately, eye contact is good Weight / BMI Weight Weight: 169.7 kg Body Mass Index (BMI) 60.1 ABG / Lab / Microbiology Data 09/19/23 04:53 09/19/23 04:53 Laboratory: Laboratory Results - last 24 hr 09/18/23 21:40: APTT 38.8 H 09/19/23 04:53: WBC 8.6, RBC 3.51 L, Hgb 8.4 L, Hct 29.3 L, MCV 83.5, MCH 23.9 L, MCHC 28.7 L, RDW Std Deviation 61.8 H, RDW Coeff of Chepe 20.8 H, Plt Count 682 H, MPV 9.7, Immature Gran % (Auto) 0.600, Neut % (Auto) 85.8 H, Lymph % (Auto) 10.8 L, [place] % (Auto) 2.4, Eos % (Auto) 0.1, Baso % (Auto) 0.3, Absolute Neuts (auto) 7.4, Absolute Lymphs (auto) 0.93, Nucleated RBC % 0, Differential Comment SCANNED, Anisocytosis 2+, Microcytosis 1+, Macrocytosis 1+, APTT 37.1 H, Sodium 137, Potassium 5.4 H, Chloride 105, Carbon Dioxide 24.0, Anion Gap 8, BUN 50 H, Creatinine 8.29 H*, Estim Creat Clear Calc 13.01, Est GFR (MDRD) Af Amer 7 L, Est GFR (MDRD) Non-Af 5 L, BUN/Creatinine Ratio 6.0 L, Glucose 102, Calcium 8.9, Hep Bs Antigen Non-Reactive, Hep Bs Antibody Non-Reactive 09/19/23 12:25: APTT 82.0 H Radiography Diagnostic Testing: Radiology Impression Chest X-Ray 09/18/23 16:55 IMPRESSION: Probable pulmonary edema possibly due to congestive failure. No pneumothorax status post dialysis catheter placement Electronically Signed: Eric Gastelum MD at 17:46 EST , Meaningful Use Info Meaningful Use Diagnoses (Choose all that apply): None applicable Discharge Plan Admission Admit Date/Time: 09/13/23 16:13 Primary Reason for Your Visit: Abnormal kidney function Attending Provider: Lesly Tomas Primary Care Provider: Tarah Dubon Consulting Providers: Juan Arndt; Maryam Santos; Keke Green; Yao German Instructions Patient Instructions: RAD lithostripper Instructions for Kidney Biopsy, RAD RN Procedural Sedation Additional Instructions / Restrictions: 1. You are found to be anemic with low red blood cells and given 1 unit of packed red blood cells. You do have a history of gastric ulcer disease and should continue your Carafate and Protonix as prescribed. Please call your primary care physician later today or tomorrow and ask for a repeat CBC (complete blood count) to be ordered and done on 09/23/2023. After your transfusion, your blood counts were stable despite being on a blood thinner and hopefully they stay this way but if they drop again we may need to perform a capsule endoscopy as an outpatient since you had unremarkable EGD and colonoscopy within the last [address]. [address] Mcgill's office (fulfillment coordinator) tomorrow to set up an appointment to be seen in the next 1 to 2 weeks 2. Continue dialysis on Saturday, , Saturday as directed by Dr. Arndt 3. Please take increased dose of prednisone as prescribed and follow-up with nephrology as they will taper your prednisone back to your baseline dose 4. You have completed antibiotics for your lower extremity skin infection Discharge Orders/Prescriptions Prescriptions: New polyethylene glycol 3350 17 gram Powder In Packet 17 g PO BID Qty: 0 0RF prednisone 20 mg Tablet 60 mg PO BREAKFAST Qty: 42 0RF Continued Actemra 162 mg/0.9 mL syringe 162 mg subcut .weekly bupropion HCl 300 MG tablet extended release 24 hr 300 mg PO DAILY ropinirole 2 MG tablet extended release 24 hr 2 mg PO QHS Xarelto 20 mg tablet 20 mg PO DAILY Hold Instructions: Resume on 08/25/23. Patient Comments: TAKE 1 TABLET BY MOUTH EVERY DAY WITH SUPPER fluvoxamine 100 mg tablet 100 mg PO DAILY buspirone 10 mg tablet 10 mg PO DAILY Patient Comments: TAKE 1 TABLET BY MOUTH EVERY MORNING AND TAKE 2 TABLETS BY MOUTH AT BEDTIME buspirone 10 mg tablet 20 mg PO QHS Patient Comments: TAKE 1 TABLET BY MOUTH EVERY MORNING AND TAKE 2 TABLETS BY MOUTH AT BEDTIME atenolol 50 mg tablet 50 mg PO DAILY Patient Comments: TAKE 1 TABLET BY MOUTH EVERY DAY Rexulti 1 mg tablet 1 mg PO DAILY Patient Comments: TAKE 1 TABLET BY MOUTH EVERY DAY Probiotic 1 ea PO/SL DAILY biotin 1 ea PO/SL DAILY pantoprazole 40 mg Tablet,Delayed Release (Dr/Ec) 40 mg PO BID Qty: 60 2RF sucralfate 1 gram tablet 1 g PO Q6H Qty: 120 1RF Hold Instructions: Pt is ill quetiapine 25 mg tablet 25 mg PO .at bedtime duloxetine 30 mg capsule,delayed release(DR/EC) 30 mg PO DAILY Ozempic 0.25 mg or 0.5 mg (2 mg/3 mL) pen injector 0.5 mg SUBCUT QWEEK Hold Instructions: Pt is ill triamcinolone acetonide 0.025 % cream 1 applic topical BID PRN Hold Instructions: Pt is ill quetiapine 50 mg tablet 50 mg PO QHS tizanidine 4 mg tablet 4 mg PO QHS pramipexole 0.75 mg tablet 0.75 mg PO TID acetaminophen 325 mg Tablet 1,000 mg PO Q8H PRN PRN (Reason: Fever, pain 1-10/10) Qty: 0 0RF ferrous sulfate [FeroSul] 325 mg (65 mg iron) Tablet 325 mg PO QODAY@1200 Qty: 0 0RF buprenorphine HCl [Belbuca] 150 mcg film 150 mcg BUCCAL Q12H 3 Days Qty: 6 0RF promethazine 25 mg tablet 25 mg PO Q6H PRN (Reason: nausea and vomiting) Qty: 120 3RF Held prednisone 5 mg tablet 10 mg PO DAILY Hold Instructions: Until instructed further Patient Comments: TAKE 2 TABLETS BY MOUTH EVERY DAY. NEEDS OFFICE VISIT Discontinued amoxicillin-pot clavulanate 875-125 mg tablet 1 tab PO BID Qty: 10 0RF Hold Instructions: Pt is ill Referrals / Follow Up: Tarah Dubon DO [Primary Care Provider] - Within 1 Week (Call for an appointment and please call for a CBC to be done on Saturday) Disposition Disposition (needs filled in before D/C Order can be placed): Home Health Service Charges/Coding Visit Charges Inpatient E&M: 84064 Disch Hosp >30min
[2023-09-19] MEDS: HEPARIN/D5w 25,000 UNITS 25,000 UNITS/250 ML IV.SOLN. 21 UNITS CONT INF (13:35)
== END 2023-09-19 17:45 | disposition home health service (06) | DRG 674 ==
PROVIDERS: Anesthesiology; Family Medicine; Internal Medicine; Internal Medicine Nephrology; Nurse Practitioner Adult Health; Surgery; Admitting Provider Internal Medicine; PCP Family Medicine; Referring Provider Internal Medicine; Visit Provider Internal Medicine
PROC: 0JH63XZ Insertion of Tunneled Vascular Access Device into Chest Subcutaneous Tissue and Fascia, Percutaneous Approach (ICD-10-PCS; principal; 2023-09-18 15:30)
DX: N17.9 Acute kidney failure, unspecified (principal); E72.12 Methylenetetrahydrofolate reductase deficiency; I85.00 Esophageal varices without bleeding; D68.62 Lupus anticoagulant syndrome; K76.6 Portal hypertension; L03.116 Cellulitis of left lower limb; Z68.43 Body mass index [BMI] 50.0-59.9, adult; Z99.2 Dependence on renal dialysis; E11.43 Type 2 diabetes mellitus with diabetic autonomic (poly)neuropathy; E66.01 Morbid (severe) obesity due to excess calories; M06.9 Rheumatoid arthritis, unspecified; I10 Essential (primary) hypertension; D50.0 Iron deficiency anemia secondary to blood loss (chronic); F32.A Depression, unspecified; G25.81 Restless legs syndrome; K21.9 Gastro-esophageal reflux disease without esophagitis; E87.5 Hyperkalemia; K31.84 Gastroparesis; G47.33 Obstructive sleep apnea (adult) (pediatric); F41.9 Anxiety disorder, unspecified; K76.0 Fatty (change of) liver, not elsewhere classified; K25.9 Gastric ulcer, unspecified as acute or chronic, without hemorrhage or perforation; N10 Acute pyelonephritis; G89.29 Other chronic pain; Z79.01 Long term (current) use of anticoagulants; Z79.52 Long term (current) use of systemic steroids; Z79.85 Long-term (current) use of injectable non-insulin antidiabetic drugs; Z79.899 Other long term (current) drug therapy; Z86.711 Personal history of pulmonary embolism; Z87.19 Personal history of other diseases of the digestive system
CPT/HCPCS: 36415; 71045; 74150; 76000; 77012; 80048; 80307; 81001; 82040; 82436; 82550; 82570; 82962; 83036; 83735; 83935; 84100; 84133; 84156; 84300; 84540; 85014; 85018; 85025; 85610; 85652; 85730; 86038; 86140; 86160; 86200; 86225; 86235; 86256; 86431; 86644; 86706; 86850; 86900; 86901; 86920; 86922; 87340; 88305; 88307; 88313; 88346; 88348; 88350; 90937; 93005; 94640; 94668; 97110; 97162; 97165; 99156; 99252; J7030; J7040; J7050; P9016; P9040; A4216; G0257; G0463; J0295; J2405

== ENCOUNTER 2023-09-26 10:51 | Emergency (ER) | payer MEDICARE, MEDICAID, SELFPAY ==
[2023-09-26 10:53] VITALS: BP 170/79; PULSE 18; RESP 71; TEMP 36.6; O2SAT 96
--- NOTE | 2023-09-26 10:58 | EKG12_ITS ---
Test Reason : CP Blood Pressure : / mmHG Vent. Rate : 067 BPM Atrial Rate : 067 BPM P-R Int : 136 ms QRS Dur : 082 ms QT Int : 386 ms P-R-T Axes : 011 021 041 degrees QTc Int : 407 ms Normal sinus rhythm Possible Left atrial enlargement Cannot rule out Anterior infarct , age undetermined Abnormal ECG Confirmed by Robb Spencer ([id number]), business editor LYLY KENDALL ([id number]) on 09/30/2023 1:57:10 PM Referred By: Confirmed By:Robb Spencer
[2023-09-26 11:21] LABS: Anion Gap 9 (5-15); BUN 19 mg/dL (7-18); BUN/Creat Ratio 9.5 RATIO (10-20); Calcium,Total 9.5 mg/dL (8.5-10.1); Chloride 102 mmol/L (98-107); Creatinine, Serum 2.01 mg/dL (0.55-1.02); EST Glomerular Filtration Rate 28 mL/min (>60); Est Glom Filt Rate - Afr Amer 33 mL/min (>60); Glucose 124 mg/dL (74-106); Potassium 3.2 mmol/L (3.5-5.1); Sodium Level 142 mmol/L (136-145); Troponin-I HS (w/2H Reflex) 12 pg/mL (3.0-54.0)
[2023-09-26 11:28] LABS: Absolute Lymphocyte Count 1.29 X10^3/uL (0.83-4.51); Absolute Neutrophil Count 10.6 X10^3/uL (2.0-7.7); Basophil# 0.04 X10^3/uL; Basophil% 0.3 % (0-1); Eosinophil# 0.29 X10^3/uL; Eosinophils% 2.3 % (0-5); Hematocrit 34.2 % (37-47); Hemoglobin 9.7 g/dL (12.0-15.0); Lymphocyte # 1.29 X10^3/ul (0.83-4.51); Mean Corp Hgb Conc 28.4 g/dL (32-36); Mean Corpuscular Volume 84.4 fL (81-99); Mean Platelet Vol. 9.8 fl (6.2-12.0); Monocyte# 0.55 X10^3/uL; Monocyte% 4.3 % (0-10); NRBC Flagged by Analyzer 0 % (0-5); Neutrophil # 10.62 X10^3/uL (2.7-7.7); Neutrophil % 82.6 % (47-70); POSITIVE MORPHOLOGY YES; Platelet Count 585 K/mm3 (150-450); RBC Distribution Width CV 21.8 % (11.6-14.6); RBC Distribution Width SD 66.6 fl (35.1-43.9); Red Blood Count 4.05 M/mm3 (4.2-5.4); White Blood Count 12.9 K/mm3 (4.4-11.0)
[2023-09-26 11:52] LABS: Differential Indicated SCAN CRITERIA MET
[2023-09-26 11:53] LABS: Anisocytosis 3+; Macrocytosis 2+; Tear Drop Cell RARE
[2023-09-26 11:54] LABS: Other RBC Morphology 3+
[2023-09-26 13:03] LABS: Reflex Troponin-HS? (from REC) Y
[2023-09-26 13:09] VITALS: BP 153/80; PULSE 77; RESP 22; O2SAT 93
--- NOTE | 2023-09-26 13:10 | RAD_ITS ---
INDICATION: chest pain EXAMINATION/TECHNIQUE: X-RAY - XR Chest 1 View COMPARISON: September 18, 2023 FINDINGS: LINES/DEVICES: There is a right-sided central venous catheter in place terminating within the expected region of the superior vena cava. LUNGS: No consolidation, edema or effusion. No pneumothorax. MEDIASTINUM AND CARDIOVASCULAR STRUCTURES: There is cardiomegaly. There is a hiatal hernia. BONES AND SOFT TISSUES: Unremarkable. RAD/Chest 1 View (Portable) IMPRESSION: Cardiomegaly. Hiatal hernia. Electronically Signed: Rosemary Elmore MD at 13:22 EST ,
--- NOTE | 2023-09-26 13:12 | ED.VIS.CHEST ---
HPI History of Present Illness Chief Complaint: Chest Pain Informant: patient Onset/Context/Timing Onset: Today Activity at onset: sudden Timing: Intermittent and Lasts (Approximately 5 minutes) Quality: Positive for Burning and Stabbing Location: Right Chest Worsened By: Nothing Relieved By: Nothing Associated Symptoms: Positive for Nausea and Lightheadedness; Negative for Vomiting, Diaphoresis, Dyspnea, Cough, Fever, Acid Reflux or Palpitations Narrative Narrative: Patient presents with chest pain that began today. Patient states she was at dialysis when her pain began. Patient states her pain has been intermittent. Patient states it lasts approximately 5 minutes and then resolves. Patient states nothing makes it better nothing makes it worse. Patient states her pain began approximately 4 hours prior to arrival. Patient admits to some nausea but denies any vomiting. Patient admits to some lightheadedness. Patient denies any fevers or chills. Patient denies any shortness of breath or cough. Patient denies any diaphoresis. Patient describes her pain as burning and stabbing. CVD Risk Factors: Positive for Diabetes; Negative for Hypertension, Hypercholesterolemia, Family History 1' </=55 or Smoking PE Risk Factors: Positive for Prior DVT or PE; Negative for Recent Travel/Surgery, Recent Immobilization, Cancer or OCP + Smoking + >/=35 [facility] Medical History Anemia Anticoagulant long-term use Anxiety and depression Bilateral lower extremity edema Celiac disease CKD (chronic kidney disease) Compartment syndrome of left lower extremity Diabetes mellitus, type 2 Gastroparesis GERD (gastroesophageal reflux disease) High risk medication use History of pulmonary embolism History of venous thromboembolism Immunocompromised state due to drug therapy Iron deficiency anemia due to chronic blood loss 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 Lupus anticoagulant disorder Morbid obesity MTHFR mutation Obesity KIKI (obstructive sleep apnea) Other complications of skin graft (allograft) (autograft) Pleural effusion, left Pulmonary embolism Rheumatoid arthritis Rheumatoid arthritis RLS (restless legs syndrome) Sinus tachycardia Home Medications bupropion HCl 300 mg 24 hr tablet, extended release 300 mg PO DAILY mental health 08/25/18 [History Last Taken 08/28/23] ropinirole 2 mg tablet,extended release 24 hr 2 mg PO QHS restless legs 08/25/18 [History Last Taken 09/20/22] rivaroxaban 20 mg tablet (Xarelto) 20 mg PO DAILY blood thinner 06/01/22 [History Last Taken 08/27/23] Probiotic 1 ea PO/SL DAILY IMMUNE HEALTH 09/21/22 [History Last Taken 08/28/23] atenolol 50 mg tablet 50 mg PO DAILY HEART 09/21/22 [History Last Taken 08/28/23] biotin 1 ea PO/SL DAILY SUPPLEMENT 09/21/22 [History Last Taken 08/28/23] brexpiprazole 1 mg tablet (Rexulti) 1 mg PO DAILY MENTAL HEALTH 09/21/22 [History Last Taken 08/28/23] buspirone 10 mg tablet 10 mg PO DAILY ANXIETY 09/21/22 [History Last Taken 08/28/23] buspirone 10 mg tablet 20 mg PO QHS ANXIETY 09/21/22 [History Last Taken 08/27/23] fluvoxamine 100 mg tablet 100 mg PO DAILY MENTAL HEALTH 09/21/22 [History Last Taken 08/28/23] prednisone 5 mg tablet 10 mg PO DAILY RA 09/21/22 [History Last Taken 08/28/23] pantoprazole 40 mg tablet,delayed release 40 mg PO BID reflux #60 tabs 10/26/22 [Rx Last Taken 08/28/23] sucralfate 1 gram tablet 1 g PO Q6H reflux #120 tabs 10/26/22 [Rx Last Taken 08/28/23] tocilizumab 162 mg/0.9 mL subcutaneous syringe (Actemra) 162 mg subcut .weekly immunosuppressant 03/18/23 [History Last Taken 08/28/23] promethazine 25 mg tablet 25 mg PO Q6H PRN nausea and vomiting #120 tabs 04/11/23 [Rx Last Taken Unknown] duloxetine 30 mg capsule,delayed release 30 mg PO DAILY mental health 06/29/23 [History Last Taken 08/28/23] quetiapine 50 mg tablet 50 mg PO QHS sleep 06/29/23 [History Last Taken 08/27/23] semaglutide 0.25 mg or 0.5 mg (2 mg/3 mL) subcutaneous pen injector (Ozempic) 0.5 mg subcut QWEEK diabetes 06/29/23 [History Last Taken Unknown] tizanidine 4 mg tablet 4 mg PO QHS spasms 06/29/23 [History Last Taken Unknown] triamcinolone acetonide 0.025 % topical cream 1 applic topical BID PRN celiac rash 06/29/23 [History Last Taken Unknown] pramipexole 0.75 mg tablet 0.75 mg PO TID restless leg 08/17/23 [History Last Taken Unknown] acetaminophen 325 mg tablet 1,000 mg (3.0769 x 325 mg) PO Q8H PRN PRN Fever, pain 1-10 #0 tabs 08/23/23 [Rx Last Taken 09/14/23] buprenorphine HCl 150 mcg buccal film (Belbuca) 150 mcg buccal Q12H pain relief 3 days #6 ea 08/23/23 [Rx Last Taken Unknown] ferrous sulfate 325 mg (65 mg iron) tablet (FeroSul) 325 mg PO QODAY@1200 anemia #0 tabs 08/23/23 [Rx Last Taken 08/27/23] quetiapine 25 mg tablet 25 mg PO .at bedtime sleep 08/28/23 [History Last Taken 08/27/23] polyethylene glycol 3350 17 gram oral powder packet 17 g PO BID #0 ea 09/19/23 [Rx Last Taken Unknown] prednisone 20 mg tablet 60 mg (3 x 20 mg) PO BREAKFAST #42 tabs 09/19/23 [Rx Last Taken Unknown] Allergy/AdvReac Type Severity Reaction Status Date / Time adhesive tape AdvReac Rash Verified 09/26/23 10:53 Family History (Updated 09/10/23 @ 21:[address] Berna Cisneros MD) Mother Cancer Lung CA w/ concurrent tobacco use. Heart disease Father No problems noted. Surgical History History of fasciotomy History of hysterectomy History of total bilateral knee replacement S/P pericardial window creation Social History household members: family Smoking Status: Never smoker alcohol intake: never substance use type: does not use ROS ROS ED Constitutional Constitutional ED: Denies chills or fever(s) Eyes Eyes: Denies blurry vision or change in vision ENT ENT ED: Denies rhinorrhea or sore throat Cardiovascular Cardiovascular: Reports chest pain; Denies palpitations Respiratory/Chest Respiratory/Chest: Denies cough or dyspnea Gastrointestinal Gastrointestinal: Reports nausea; Denies abdominal pain or vomiting Genitourinary Genitourinary ED: Reports urinary frequency; Denies dysuria or hematuria Musculoskeletal Musculoskeletal: Reports neck pain; Denies back pain Integumentary Denies abscess or rash Neurologic Neurologic: Denies headache(s) or weakness Allergic/Immunologic Allergic/Immunologic ED: Denies mouth swelling or urticaria EXAM Physical Exam Const Vital Signs: 09/26/23 10:53 09/26/23 13:09 09/26/23 13:09 Temperature 98 F Temperature Source Temporal Pulse Rate 18 L 77 Respiratory Rate 71 H 22 H Respiratory Effort Blood Pressure 170/79 H 153/80 H Blood Pressure Mean 109 104 Pulse Ox 96 93 93 Oxygen Delivery Method Room Air Room Air Room Air 09/26/23 13:09 Temperature Temperature Source Pulse Rate Respiratory Rate Respiratory Effort Normal Blood Pressure Blood Pressure Mean Pulse Ox Oxygen Delivery Method Positive well nourished, well developed and obese General Appearance ED: well developed and NAD Nutritional Appearance: obese HEENT Reports moist mucous membranes Neck supple and no JVD Chest Wall inspection of chest normal and palpation of chest normal Chest Narrative: There is a dialysis catheter in the right anterior chest wall. There is no sign of infection. There is no surrounding erythema or drainage noted. Resp normal respiratory effort and clear to auscultation bilaterally Cardio regular rate and regular rhythm GI soft to palpation, non-tender and non-distended Neuro oriented x3, CN's II-XII intact bilaterally and no sensory deficits noted Sensorium / Orientation: awake and alert Motor Exam: general weakness Psych mental status grossly normal Heart Score History: Slightly/Non-Suspicious ECG: Normal Age: >45 - <65 years Risk Factors: 1 or 2 Risk Factors Troponin: </= Normal Limit Score: 2 MDM MDM MDM Narrative Medical decision making narrative: Differential diagnosis includes cardiac dysrhythmia, cardiac ischemia, pneumonia, pneumothorax, electrolyte abnormality, acute on chronic kidney disease, urinary tract infection, and anxiety. EKG will be obtained to assess for cardiac dysrhythmia and cardiac ischemia. Chest x-ray will be obtained to assess for pneumonia and pneumothorax. CBC will be obtained to assess for leukocytosis and anemia. Basic metabolic profile will be obtained to assess for electrolyte abnormality and renal function. High-sensitivity troponin will be obtained to assess for cardiac ischemia. 2-hour repeat high-sensitivity troponin will be obtained to assess for ongoing cardiac ischemia. Lab Data Attestation: I reviewed the patient's lab results. Lab results narrative: CBC was reviewed. There is a mild leukocytosis of 12.9. There is a mild anemia with hemoglobin 9.7 and hematocrit 34.2. Platelets were slightly elevated at 585. Basic metabolic profile was reviewed. Potassium was low at 3.2. BUN was 19 and creatinine was 2.01. These are improved from previous results. Initial high-sensitivity troponin was reviewed and was normal at 12. 2-hour repeat high-sensitivity troponin was reviewed and was normal at 10. Labs: Laboratory Results - last 24 hr 09/26/23 09/26/23 10:55 13:05 WBC 12.9 H RBC 4.05 L Hgb 9.7 L Hct 34.2 L MCV 84.4 MCH 24.0 L MCHC 28.4 L RDW Std Deviation 66.6 H RDW Coeff of Chepe 21.8 H Plt Count 585 H MPV 9.8 Immature Gran % (Auto) 0.500 Neut % (Auto) 82.6 H Lymph % (Auto) 10.0 L Dickens % (Auto) 4.3 Eos % (Auto) 2.3 Baso % (Auto) 0.3 Absolute Neuts (auto) 10.6 H Absolute Lymphs (auto) 1.29 Nucleated RBC % 0 RBC Morphology 3+ Anisocytosis 3+ Macrocytosis 2+ Tear Drop Cells RARE Sodium 142 Potassium 3.2 L Chloride 102 Carbon Dioxide 31.0 Anion Gap 9 BUN 19 H Creatinine 2.01 H Est GFR (MDRD) Af Amer 33 L Est GFR (MDRD) Non-Af 28 L BUN/Creatinine Ratio 9.5 L Glucose 124 H Calcium 9.5 Troponin I High Sens 12 10 Radiography Chest X-Ray - ED: 1 View, Read by ED Physician, Read by Radiologist and No Acute Disease Diagnostic Testing: Clinical Impression(s) from Imaging Studies Chest X-Ray 09/26/23 13:10 IMPRESSION: Cardiomegaly. Hiatal hernia. Electronically Signed: Rosemary Elmore MD at 13:22 EST , Portable 1 view chest x-ray was obtained. On my independent interpretation, lung salcido are clear. There is cardiomegaly. Bony thorax is normal. There is no acute process noted. Radiologist also interpreted the x-ray and agrees. EKG Initial EKG: Attestation: I personally reviewed and interpreted this EKG as follows: Interpretation: Sinus Rhythm (67) and No Acute Injury Pattern Comments: EKG was obtained. On my independent interpretation, it showed a normal sinus rhythm with a rate of 67. AR interval, QRS interval, and QTc intervals were all normal. Clayton was normal. There are no acute ST or T wave changes. 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 Patient was given a dose of oral potassium here. Patient was advised of her findings. Patient has a HEART score of 2. Patient was advised that this is low risk for acute cardiac event. Patient was instructed to follow-up with her primary care physician in 5 to 7 days for reevaluation. Patient understood and was agreeable with the plan. All questions were answered. Discharge Plan Triage Chief Complaint: Chest Pain ED Provider: Leland Deleon Dx/Rx/DC Orders Clinical Impression: Diabetes mellitus, type 2, Chest pain of uncertain etiology Instructions: ED Chest Pain, Uncertain Cause Prescriptions: No Action Actemra 162 mg/0.9 mL syringe 162 mg subcut .weekly bupropion HCl 300 MG tablet extended release 24 hr 300 mg PO DAILY ropinirole 2 MG tablet extended release 24 hr 2 mg PO QHS Xarelto 20 mg tablet 20 mg PO DAILY Hold Instructions: Resume on 08/25/23. Patient Comments: TAKE 1 TABLET BY MOUTH EVERY DAY WITH SUPPER prednisone 5 mg tablet 10 mg PO DAILY Hold Instructions: Until instructed further Patient Comments: TAKE 2 TABLETS BY MOUTH EVERY DAY. NEEDS OFFICE VISIT fluvoxamine 100 mg tablet 100 mg PO DAILY buspirone 10 mg tablet 10 mg PO DAILY Patient Comments: TAKE 1 TABLET BY MOUTH EVERY MORNING AND TAKE 2 TABLETS BY MOUTH AT BEDTIME buspirone 10 mg tablet 20 mg PO QHS Patient Comments: TAKE 1 TABLET BY MOUTH EVERY MORNING AND TAKE 2 TABLETS BY MOUTH AT BEDTIME atenolol 50 mg tablet 50 mg PO DAILY Patient Comments: TAKE 1 TABLET BY MOUTH EVERY DAY Rexulti 1 mg tablet 1 mg PO DAILY Patient Comments: TAKE 1 TABLET BY MOUTH EVERY DAY Probiotic 1 ea PO/SL DAILY biotin 1 ea PO/SL DAILY pantoprazole 40 mg Tablet,Delayed Release (Dr/Ec) 40 mg PO BID Qty: 60 2RF sucralfate 1 gram tablet 1 g PO Q6H Qty: 120 1RF Hold Instructions: Pt is ill quetiapine 25 mg tablet 25 mg PO .at bedtime duloxetine 30 mg capsule,delayed release(DR/EC) 30 mg PO DAILY Ozempic 0.25 mg or 0.5 mg (2 mg/3 mL) pen injector 0.5 mg SUBCUT QWEEK Hold Instructions: Pt is ill triamcinolone acetonide 0.025 % cream 1 applic topical BID PRN Hold Instructions: Pt is ill quetiapine 50 mg tablet 50 mg PO QHS tizanidine 4 mg tablet 4 mg PO QHS pramipexole 0.75 mg tablet 0.75 mg PO TID acetaminophen 325 mg Tablet 1,000 mg PO Q8H PRN PRN (Reason: Fever, pain 1-04/30) Qty: 0 0RF ferrous sulfate [FeroSul] 325 mg (65 mg iron) Tablet 325 mg PO QODAY@1200 Qty: 0 0RF buprenorphine HCl [Belbuca] 150 mcg film 150 mcg BUCCAL Q12H 3 Days Qty: 6 0RF polyethylene glycol 3350 17 gram Powder In Packet 17 g PO BID Qty: 0 0RF prednisone 20 mg Tablet 60 mg PO BREAKFAST Qty: 42 0RF promethazine 25 mg tablet 25 mg PO Q6H PRN (Reason: nausea and vomiting) Qty: 120 3RF Primary Care Provider: Tarah Dubon Referrals: Tarah Dubon DO [Primary Care Provider] - 5-7 Days Disposition Disposition: Home, Self Care
[2023-09-26 13:28] LABS: Troponin-I HS 10 pg/mL (3.0-54.0)
[2023-09-26] MEDS: Potassium Chloride Oral Tablet 20 MEQ 40 MEQ PO (14:08)
[2023-09-26 14:10] VITALS: BP 113/52; PULSE 80; RESP 16; TEMP 37; O2SAT 92
== END 2023-09-26 14:13 | disposition home or self-care (01) ==
PROVIDERS: Emergency Provider Emergency Medicine; PCP Family Medicine; Visit Provider Emergency Medicine
DX: E11.22 Type 2 diabetes mellitus with diabetic chronic kidney disease (principal); R07.9 Chest pain, unspecified; N18.9 Chronic kidney disease, unspecified; G47.33 Obstructive sleep apnea (adult) (pediatric); E66.9 Obesity, unspecified; Z86.711 Personal history of pulmonary embolism
CPT/HCPCS: 71045; 80048; 84484; 85025; 93005; 99284; A4216

== ENCOUNTER 2023-10-05 19:13 | Inpatient (IN) | payer MEDICARE, MEDICAID, SELFPAY ==
[2023-10-05] VITALS (7 sets, daily range): BP systolic 119–167; BP diastolic 80–98; PULSE 121–136; RESP 14–22; TEMP 36.3–38.1; O2SAT 94–100; BMI 52.7
[2023-10-05 19:57] LABS: Absolute Lymphocyte Count 1.74 X10^3/uL (0.83-4.51); Absolute Neutrophil Count 11.7 X10^3/uL (2.0-7.7); Basophil# 0.03 X10^3/uL; Basophil% 0.2 % (0-1); Eosinophil# 0.13 X10^3/uL; Eosinophils% 0.9 % (0-5); Hematocrit 38.6 % (37-47); Hemoglobin 11.1 g/dL (12.0-15.0); Lymphocyte # 1.74 X10^3/ul (0.83-4.51); Lymphocyte % 11.6 % (19-41); Mean Corp Hgb Conc 28.8 g/dL (32-36); Mean Corpuscular Hgb 24.2 pg (27.0-32.0); Mean Corpuscular Volume 84.1 fL (81-99); Mean Platelet Vol. 10.1 fl (6.2-12.0); Monocyte# 1.28 X10^3/uL; Monocyte% 8.6 % (0-10); NRBC Flagged by Analyzer 0 % (0-5); Neutrophil # 11.71 X10^3/uL (2.7-7.7); Neutrophil % 78.2 % (47-70); POSITIVE MORPHOLOGY YES; Platelet Count 410 K/mm3 (150-450); RBC Distribution Width CV 22.4 % (11.6-14.6); RBC Distribution Width SD 67.7 fl (35.1-43.9); Red Blood Count 4.59 M/mm3 (4.2-5.4)
[2023-10-05 19:58] LABS: Differential Indicated SCAN CRITERIA MET
[2023-10-05 20:11] LABS: ALB/GLOB Ratio 0.7 RATIO (0.9-2.4); AST(SGOT) 20 U/L (15-37); Alanine Aminotransfer ALT/SGPT 25 U/L (13-56); Albumin, Serum 3.1 g/dL (3.2-5.0); Alkaline Phosphatase 120 U/L (45-117); Anion Gap 7 (5-15); BUN 28 mg/dL (7-18); BUN/Creat Ratio 18.1 RATIO (10-20); Calcium,Total 10.1 mg/dL (8.5-10.1); Chloride 102 mmol/L (98-107); Creatinine, Serum 1.55 mg/dL (0.55-1.02); EST Glomerular Filtration Rate 37 mL/min (>60); Est Glom Filt Rate - Afr Amer 45 mL/min (>60); Estimated Creatinine Clearance 63.61 ml/min; Globulin 4.7 g/dL (2.2-4.2); Glucose 110 mg/dL (74-106); Potassium 4.7 mmol/L (3.5-5.1); Protein, Total 7.8 g/dL (6.4-8.2); Sodium Level 136 mmol/L (136-145)
[2023-10-05 20:18] LABS: Erythrocyte Sedimentation Rate 86 mm/hr (0-30); Lactic Acid 3.1 mmol/L (0.4-1.9)
[2023-10-05 20:21] LABS: Anisocytosis 1+; Platelet Estimate ADEQUATE (ADEQ)
--- NOTE | 2023-10-05 20:30 | RAD_ITS ---
STUDY: X-RAY - LEFT SHOULDER REASON FOR EXAM: Female, 52 years old. Injury/Pain TECHNIQUE: 2 view(s) of the shoulder. COMPARISON: None. FINDINGS: Normal glenohumeral articulation. There is degenerative arthrosis of the acromioclavicular joint without inferior osseous spur formation. Normal acromion. Normal humeral head and visualized proximal humerus. The soft tissue structures are unremarkable. Normal visualized pulmonary apex. RAD/Shoulder min 2 Views IMPRESSION: 1. No acute fracture or dislocation. 2. Moderate acromioclavicular joint arthrosis. Electronically Signed: Bry Arteaga MD at 21:15 EDT ,
--- NOTE | 2023-10-05 20:33 | EX.ED.DYSGE1 ---
HPI History of Present Illness Chief Complaint: Cellulitis Detail of Chief Complaint: Patient believes she has cellulitis left leg. She had a long hospital stay Informant: patient Onset/Context/Timing Onset: Today (Today she feels like she did prior to becoming septic) and Days (2 to 3 days ago developed right and left shoulder pain.) Context: Sudden Onset Timing: Continuous Quality: Pain and feeling unwell Location: Both shoulders right greater than left and generalized Current Severity: Mild Maximum Severity: Severe Worsened by: Movement of right or left upper extremity Relieved by: Nothing Associated Symptoms Associated Symptoms: Nausea Narrative Narrative: Patient is a 52-year-old woman who presents with subjective fever and chills. She complains of bilateral shoulder pain right greater than left. Movement causes significant pain right greater than left. She does report that her urine feels warm when she urinates. She does endorse nausea without vomiting or diarrhea. She does complain of mild headache. She denies neck pain or neck stiffness. Denies photophobia. She denies ocular, visual or auditory symptoms. She denies rhinorrhea, congestion, postnasal drainage and sore throat. She denies cough or shortness of breath. She denies abdominal pain. She denies blood in her urine. Possibly frequency. She denies back or flank pain. She is concerned that she has an infection left leg where she had a prior infection had a prolonged stay with acute kidney injury requiring dialysis. She states she does have a vas cath right subclavian region. Patient is on Xarelto because she has a clotting disorder. 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 Lupus anticoagulant disorder Morbid obesity MTHFR mutation Obesity KIKI (obstructive sleep apnea) Other complications of skin graft (allograft) (autograft) Pleural effusion, left Pulmonary embolism Rheumatoid arthritis Rheumatoid arthritis RLS (restless legs syndrome) Sinus tachycardia Home Medications bupropion HCl 300 mg 24 hr tablet, extended release 300 mg PO DAILY mental health 08/25/18 [History Last Taken 08/28/23] ropinirole 2 mg tablet,extended release 24 hr 2 mg PO QHS restless legs 08/25/18 [History Last Taken 09/20/22] rivaroxaban 20 mg tablet (Xarelto) 20 mg PO DAILY blood thinner 06/01/22 [History Last Taken 08/27/23] atenolol 50 mg tablet 50 mg PO DAILY HEART 09/21/22 [History Last Taken 08/28/23] biotin 1 ea PO/SL DAILY SUPPLEMENT 09/21/22 [History Last Taken 08/28/23] brexpiprazole 1 mg tablet (Rexulti) 1 mg PO DAILY MENTAL HEALTH 09/21/22 [History Last Taken 08/28/23] buspirone 10 mg tablet 10 mg PO DAILY ANXIETY 09/21/22 [History Last Taken 08/28/23] buspirone 10 mg tablet 20 mg PO QHS ANXIETY 09/21/22 [History Last Taken 08/27/23] fluvoxamine 100 mg tablet 100 mg PO DAILY MENTAL HEALTH 09/21/22 [History Last Taken 08/28/23] pantoprazole 40 mg tablet,delayed release 40 mg PO BID reflux #60 tabs 10/26/22 [Rx Last Taken 08/28/23] sucralfate 1 gram tablet 1 g PO Q6H reflux #120 tabs 10/26/22 [Rx Last Taken 08/28/23] tocilizumab 162 mg/0.9 mL subcutaneous syringe (Actemra) 162 mg subcut .weekly immunosuppressant 03/18/23 [History Last Taken 08/28/23] duloxetine 30 mg capsule,delayed release 30 mg PO DAILY mental health 06/29/23 [History Last Taken 08/28/23] quetiapine 50 mg tablet 50 mg PO QHS sleep 06/29/23 [History Last Taken 08/27/23] semaglutide 0.25 mg or 0.5 mg (2 mg/3 mL) subcutaneous pen injector (Ozempic) 0.5 mg subcut QWEEK diabetes 06/29/23 [History Last Taken Unknown] tizanidine 4 mg tablet 4 mg PO QHS spasms 06/29/23 [History Last Taken Unknown] pramipexole 0.75 mg tablet 0.75 mg PO TID restless leg 08/17/23 [History Last Taken Unknown] acetaminophen 325 mg tablet 1,000 mg (3.0769 x 325 mg) PO Q8H PRN PRN Fever, pain 1-04/30 #0 tabs 08/23/23 [Rx Last Taken 09/14/23] buprenorphine HCl 150 mcg buccal film (Belbuca) 150 mcg buccal Q12H pain relief 3 days #6 ea 08/23/23 [Rx Last Taken Unknown] ferrous sulfate 325 mg (65 mg iron) tablet (FeroSul) 325 mg PO QODAY@1200 anemia #0 tabs 08/23/23 [Rx Last Taken 08/27/23] quetiapine 25 mg tablet 25 mg PO .at bedtime sleep 08/28/23 [History Last Taken 08/27/23] prednisone 20 mg tablet 60 mg (3 x 20 mg) PO BREAKFAST #42 tabs 09/19/23 [Rx Last Taken Unknown] Allergy/AdvReac Type Severity Reaction Status Date / Time adhesive tape AdvReac Rash Verified 10/05/23 19:17 Family History Mother Cancer Lung CA w/ concurrent tobacco use. Heart disease Father No problems noted. Surgical History History of fasciotomy History of hysterectomy History of total bilateral knee replacement S/P pericardial window creation Social History household members: family Smoking Status: Never smoker alcohol intake: never substance use type: does not use ROS ROS ED Constitutional Constitutional ED: Reports chills, fever(s) and subjective; Denies sweats or weight loss Eyes Eyes: Denies blurry vision, change in vision or diplopia ENT ENT ED: Denies ear pain, rhinorrhea or sore throat Cardiovascular Cardiovascular: Denies chest pain, orthopnea, palpitations, paroxysmal nocturnal dyspnea or racing heartbeat Respiratory/Chest Respiratory/Chest: Denies cough, dyspnea, dyspnea on exertion, orthopnea or paroxysmal nocturnal dyspnea Gastrointestinal Gastrointestinal: Reports nausea; Denies abdominal pain, constipation, diarrhea or vomiting Genitourinary Genitourinary ED: Denies dysuria, hematuria or urinary frequency Musculoskeletal Musculoskeletal: Reports arthralgias; Denies back pain or myalgias Integumentary Denies rash Neurologic Neurologic: Reports headache(s); Denies paresthesias or weakness Psychiatric Psychiatric: Reports anxiety; Denies depression Hematologic/Lymphatic Hematologic/Lymphatic: Reports easy bruising Allergic/Immunologic Allergic/Immunologic ED: Denies mouth swelling or tongue swelling EXAM Physical Exam Const Vital Signs: 10/05/23 19:15 10/05/23 19:39 10/05/23 19:39 Temperature 99.4 F H 97.4 F L Temperature Source Oral Oral Pulse Rate 136 H 126 H 126 H Respiratory Rate 20 H 14 17 Blood Pressure 167/93 H 145/98 H 145/98 H Blood Pressure Mean 117 113 113 Pulse Ox 100 97 97 Oxygen Delivery Method Room Air Room Air Room Air 10/05/23 21:18 10/05/23 21:18 10/05/23 22:33 Temperature 99.4 F H 99.4 F H 99.0 F Temperature Source Oral Oral Oral Pulse Rate 121 H 122 H 129 H Respiratory Rate 20 H 22 H 16 Blood Pressure 130/80 H 130/80 H 119/83 H Blood Pressure Mean 96 96 95 Pulse Ox 97 96 100 Oxygen Delivery Method Room Air Room Air Room Air Positive well nourished, well developed and obese Constitutional Narrative: Patient does not look well. She appears uncomfortable. General Appearance ED: well developed; Negative for cyanotic, diaphoretic or NAD Nutritional Appearance: obese HEENT Reports dry mucous membranes HEENT Narrative: Head is atraumatic, cephalic. Ears normal. TMs normal. Nares patent. Posterior pharynx out erythema or exudate. There is no tenderness of the frontal, ethmoid or maxillary sinuses. Mouth ED: Yes dry mucous membranes Mouth: dry mucous membranes Eyes PERRL and EOMs intact bilaterally Eyes Narrative: Conjunctive is pink. Sclera is anicteric. Neck no lymphadenopathy, supple and no JVD Neck Narrative: No meningeal findings. Chest Wall inspection of chest normal and palpation of chest normal Resp normal respiratory effort and clear to auscultation bilaterally Cardio regular rhythm, S1 normal heart sound, S2 normal heart sound and no murmurs; Negative for regular rate GI normal to inspection, nondistended, normoactive bowel sounds, non-tender and non-distended; Negative for hepatosplenomegaly or no masses GI Narrative: Exam is limited due to body habitus. Back/Spine no CVA tenderness Thoracic Spine / Upper Back: Negative for thoracic spinal tenderness Lumbar Spine / Lower Back: Negative for lumbar spinal tenderness Extremity normal to inspection Extremity Narrative: Patient has significant pain with passive range of motion of the right shoulder. There is no obvious fluctuance. There is no warmth or erythema over the shoulder joint. There is discomfort with passive range of motion on the right side. Axillary, median, radial and ulnar function intact. Patient describes what may have been a frozen shoulder on the right side. This could be the reason for her pain. General Extremety ED: Yes edema General Extremity: edema Neuro oriented x3, CN's II-XII intact bilaterally and no sensory deficits noted Sensorium / Orientation: alert Motor Exam: strength 5/5 throughout Psych Mood & Affect: depressed Skin No no rashes or lesions noted, No no wounds and No skin turgor normal Skin Narrative: Examination of the right lower extremity reveals a large healed incision. There is slight discoloration meaning increased pigmentation. There is no erythema, warmth or induration. There is no lymphangitis. There is no popliteal lymphadenopathy. Sepsis Attestation Sepsis Alert: Yes Sepsis Attestation: Agree w/Sepsis Date exam was performed: 10/05/23 Time exam was performed: 21:25 Possible Source of Sepsis: Bone/joint Sepsis Organ Dysfunction Criteria Present: Lactic Acid > 2 mmol/L MDM MDM MDM Narrative Medical decision making narrative: Need to evaluate for infectious cause of her symptoms. This may represent pyogenic arthritis. This also could represent crystal induced arthritis specifically her right shoulder. Because of her urinary complaint UA was ordered by cath specimen since patient is unable to perform a clean-catch. In light of the elevated white count and inflammatory markers x-rays of both right and left shoulder was ordered. Patient probably will need an arthrocentesis of the right shoulder. Will will contact Dr. Tuan Buchanan who is on-call for Ortho since my concern is that patient has pyogenic arthritis of the right shoulder. Patient does trip sepsis criteria. I was made aware of this at approximately 2124. Since source is now known she will receive Unasyn and vancomycin. Vancomycin was ordered since she has a history of MRSA. History & Record Review Additional record(s) reviewed:: Prior inpatient record (Patient was admitted for cellulitis from September 10 through . She required readmission and because of acute kidney injury requiring hemodialysis. She has a dialysis catheter right subclavian area. The thought was that the JAGDISH was possibly antibiotic induced.), Prior ED visit and Prior labs Lab Data Attestation: I reviewed the patient's lab results. Lab results narrative: White count is elevated and was elevated on prior results. H&H 11.1 and 38.6 which is about baseline. Differential reveals mild shift with no bandemia. Electrolyte panel is remarkable for BUN/creatinine of 28 and 1.55 which is comparable to her most recent results. Lactate is elevated 3.1. In light of this blood cultures were ordered. ESR and C-reactive protein are elevated 86 and 79 respectively. Labs: Laboratory Results - last 24 hr 10/05/23 10/05/23 10/05/23 19:40 20:38 21:44 WBC 15.0 H RBC 4.59 Hgb 11.1 L Hct 38.6 MCV 84.1 MCH 24.2 L MCHC 28.8 L RDW Std Deviation 67.7 H RDW Coeff of Chepe 22.4 H Plt Count 410 MPV 10.1 Immature Gran % (Auto) 0.500 Neut % (Auto) 78.2 H Lymph % (Auto) 11.6 L Sac % (Auto) 8.6 Eos % (Auto) 0.9 Baso % (Auto) 0.2 Absolute Neuts (auto) 11.7 H Absolute Lymphs (auto) 1.74 Nucleated RBC % 0 Platelet Estimate ADEQUATE Anisocytosis 1+ ESR 86 H Sodium 136 Potassium 4.7 Chloride 102 Carbon Dioxide 27.0 Anion Gap 7 BUN 28 H Creatinine 1.55 H Estim Creat Clear Calc 63.61 Est GFR (MDRD) Af Amer 45 L Est GFR (MDRD) Non-Af 37 L BUN/Creatinine Ratio 18.1 Glucose 110 H Lactic Acid 3.1 H* Calcium 10.1 Total Bilirubin 0.50 AST 20 ALT 25 Alkaline Phosphatase 120 H C-React Prot Ext Range 79.00 H Total Protein 7.8 Albumin 3.1 L Globulin 4.7 H Albumin/Globulin Ratio 0.7 L Urine Color Yellow Urine Clarity Clear Urine pH 5.0 Ur Specific [place] 1.010 Urine Protein 30 H Urine Glucose (UA) Normal Urine Ketones 5 H Urine Occult Blood 250 H Urine Nitrite Negative Urine Bilirubin 1 H Urine Urobilinogen Normal Ur Leukocyte Esterase 25 H Urine RBC 0-5 SEEN Urine WBC 0-5 SEEN Ur Squamous Epith Cells 0 SEEN Urine Bacteria RARE Urine Mucus 0 SEEN Fluid Crystal Source SYNOVIAL Synovial Source RIGHT SHOULDER Synovial Color Yellow Synovial Appearance Turbid Synovial WBC 190.3800 H Synovial RBC 0.040 H Synovial Tot Cell Ct 190.6500 H Synov Polynuclear WBCs 174.000 Synov Mononuclear WBCs 16.380 Synovial Polynuclear % 91.3 Synovial Mononuclear % 8.7 Radiography Chest X-Ray - ED: 2 View (2 view x-ray of the right and left shoulder were obtained. Patient has significant arthritic changes of the acromial clavicular joint. There is no other abnormality noted. This may explain her pain.) Diagnostic Testing: Clinical Impression(s) from Imaging Studies Shoulder X-Ray 10/05/23 20:30 IMPRESSION: 1. No acute fracture or dislocation. 2. Moderate acromioclavicular joint arthrosis. Electronically Signed: Bry Arteaga MD at 21:15 EDT Reading Location ID and State: [id number] / [employer] , Service support , Shoulder X-Ray 10/05/23 21:00 IMPRESSION: 1. No acute fracture or dislocation. 2. Moderate acromioclavicular joint arthrosis. Electronically Signed: Bry Arteaga MD at 21:16 EDT Reading Location ID and State: [id number] / [employer] , Service support , Management Discussion w/another healthcare provider: Hospitalist (Hospitalist was called to admit this septic patient. Will notify that orthopedics knows and plan will be OR.) and Supervisor Vendor Quality (Spoke to Dr. Buchnaan at 2250. He was made aware of patient's history physical laboratory studies, arthrocentesis results. Since patient is septic he would like admitted to medicine. He will need to take patient to the OR. He is deciding best option for patient. He was informed that she has not e) Treatment and Re-Evaluation :: Patient's urine is not the source of her white count. In light of this will perform arthrocentesis of the right shoulder since this is the most painful and has markedly reduced range of motion. Dr. Frye has no objection patient going to surgery. Will have Dr. Buchanan paged and notified of this. Plan is to admit to ICU. Procedures Other Procedures Procedure(s): Arthrocentesis right shoulder: Patient was prepped draped sterile manner. The area was anesthetized with 1% lidocaine. Using an 18-gauge needle 1 cc of brown turbid fluid was aspirated. Suspect this is the source of patient's infection. Will contact Dr. Buchanan who is on-call for Ortho. Patient had rotator cuff repair by Dr. Marbin guajardo 6 years ago. Critical Care Time Critical Care Time: Yes Critical care time (excluding procedures): 30-74 minutes (32), Including time spent: (History, physical, preparation see patient, documentation, review of prior records, independent interpretation of laboratory results and images), Discussing w/Patient &/or Family/Nuclear Medicine Technologist, Discussing w/Consultants (Orthopedic surgeon and hospitalist) and Arranging Admission or Transfer Discharge Plan Triage Chief Complaint: Cellulitis ED Provider: Santino Duran Dx/Rx/DC Orders Clinical Impression: Severe sepsis with acute organ dysfunction, Acidosis, lactic, Pyogenic bacterial arthritis of right shoulder, Chronic kidney disease Prescriptions: No Action Actemra 162 mg/0.9 mL syringe 162 mg subcut .weekly Hold Instructions: Pt is ill bupropion HCl 300 MG tablet extended release 24 hr 300 mg PO DAILY ropinirole 2 MG tablet extended release 24 hr 2 mg PO QHS Xarelto 20 mg tablet 20 mg PO DAILY Hold Instructions: Resume on 08/25/23. Patient Comments: TAKE 1 TABLET BY MOUTH EVERY DAY WITH SUPPER fluvoxamine 100 mg tablet 100 mg PO DAILY buspirone 10 mg tablet 10 mg PO DAILY Patient Comments: TAKE 1 TABLET BY MOUTH EVERY MORNING AND TAKE 2 TABLETS BY MOUTH AT BEDTIME buspirone 10 mg tablet 20 mg PO QHS Patient Comments: TAKE 1 TABLET BY MOUTH EVERY MORNING AND TAKE 2 TABLETS BY MOUTH AT BEDTIME atenolol 50 mg tablet 50 mg PO DAILY Patient Comments: TAKE 1 TABLET BY MOUTH EVERY DAY Rexulti 1 mg tablet 1 mg PO DAILY Patient Comments: TAKE 1 TABLET BY MOUTH EVERY DAY biotin 1 ea PO/SL DAILY pantoprazole 40 mg Tablet,Delayed Release (Dr/Ec) 40 mg PO BID Qty: 60 2RF sucralfate 1 gram tablet 1 g PO Q6H Qty: 120 1RF Hold Instructions: Pt is ill quetiapine 25 mg tablet 25 mg PO .at bedtime duloxetine 30 mg capsule,delayed release(DR/EC) 30 mg PO DAILY Ozempic 0.25 mg or 0.5 mg (2 mg/3 mL) pen injector 0.5 mg SUBCUT QWEEK Hold Instructions: Pt is ill quetiapine 50 mg tablet 50 mg PO QHS tizanidine 4 mg tablet 4 mg PO QHS pramipexole 0.75 mg tablet 0.75 mg PO TID acetaminophen 325 mg Tablet 1,000 mg PO Q8H PRN PRN (Reason: Fever, pain 1-04/30) Qty: 0 0RF ferrous sulfate [FeroSul] 325 mg (65 mg iron) Tablet 325 mg PO QODAY@1200 Qty: 0 0RF buprenorphine HCl [Belbuca] 150 mcg film 150 mcg BUCCAL Q12H 3 Days Qty: 6 0RF prednisone 20 mg Tablet 60 mg PO BREAKFAST Qty: 42 0RF Primary Care Provider: Tarah Dubon Referrals: Tarah Dubon DO [Primary Care Provider] - Disposition Disposition: Acute Care Hospital [facility]
[2023-10-05 20:45] LABS: Color, Urine Yellow (Yellow); Glucose, Dipstick Normal (Normal); Ketone-Dipstick 5 mg/dl (Negative); Leukocyte Esterase-Dipstick 25 /ul (Negative); Mucous, Urine 0 SEEN /hpf (<or=2+); Nitrite-Dipstick Negative (Negative); Occult Blood-Urine 250 /ul (Negative); Protein-Dipstick 30 mg/dl (Negative); Squamous Epithelial Cells - UA 0 SEEN /hpf (5-10); Urine Bilirubin Dipstick 1 mg/dL (Negative); Urine Clarity Clear (Clear); Urine Urobilinogen Normal (Normal)
[2023-10-05 20:51] LABS: Bacteria RARE /hpf (None Seen); Red Blood Cells-Urine 0-5 SEEN /hpf (0-5); White Blood Cells 0-5 SEEN /hpf (0-5)
--- NOTE | 2023-10-05 21:00 | RAD_ITS ---
STUDY: X-RAY - RIGHT SHOULDER REASON FOR EXAM: Female, 52 years old. Injury/Pain TECHNIQUE: 2 view(s) of the shoulder. COMPARISON: None. FINDINGS: Normal glenohumeral articulation. There is degenerative arthrosis of the acromioclavicular joint without inferior osseous spur formation. Normal acromion. Normal humeral head and visualized proximal humerus. The soft tissue structures are unremarkable. Normal visualized pulmonary apex. RAD/Shoulder min 2 Views IMPRESSION: 1. No acute fracture or dislocation. 2. Moderate acromioclavicular joint arthrosis. Electronically Signed: Bry Arteaga MD at 21:16 EDT ,
[2023-10-05] MEDS: HYDROmorphone 0.5 MG/0.5 ML SYRINGE IV (21:16)
[2023-10-05] MEDS: Lidocaine 1% (20 ml mdv) 20 ML Vial INFILT (21:17)
[2023-10-05] MEDS: Ondansetron 4 MG/2 ML Vial IV (21:35)
[2023-10-05 21:50] LABS: Pathologist Comment May follow
[2023-10-05] MEDS: Ampicillin/Sulbactam 3 GM in 0.9% Normal Saline (100mL MB+) 100 ML IV (22:33)
[2023-10-05 22:34] LABS: AUTO B FLUID DILUENT BKGD CT WBC <0.1 RBC <0.01 (W<.1,R<.01); Color / Synovial Fluid Yellow (Pale Yellow); Source / Synovial Fluid RIGHT SHOULDER; Source- Body Fluid SYNOVIAL
[2023-10-05 22:35] LABS: Appearance /Synovial Fluid Turbid (CLEAR)
[2023-10-05 22:37] LABS: Synovial Fld Mononuclear WBC % 8.7 %; Synovial Fld Polynuclear WBC % 91.3 %
--- NOTE | 2023-10-05 23:00 | HP.PCM.HOS_ITS ---
[facility] - General General Date of Admission: 10/06/23 Date of Service: 10/05/23 Chief Complaint: Bilateral shoulder pain, fever and chills. HPI Narrative RICCARDO VICKERS, is a 52 F with a past medical history of essential hypertension, morbid obesity; BMI 52.8 this admission, obstructive sleep apnea; on CPAP, diabetes mellitus type 2; of unknown control, diabetic neuropathy, diabetic gastroparesis, history of DVT/PE; with MTHFR mutation and lupus anticoagulant disorder on Xarelto, history of compartment syndrome of the left lower extremity; status post fasciotomy, history of right rotator cuff tear; status post tendon repair, history of MRSA, celiac disease, RA, osteoarthritis; with history of bilateral total knee replacement and chronic back pain on buprenorphine, history of GI bleed with chronic blood loss anemia / SOLOMON, RLS, depression with anxiety; on multiple antidepressants and recent admission here from September 10, 2023 through September 12, 2023 for nausea and left lower extremity cellulitis; with subsequent severe acute interstitial nephritis requiring hemodialysis attributed to Augmentin; with right subclavian vascular catheter still in place followed by a subsequent admission here from September 13, 2023 to September 19, 2023 who re-presents to [facility] ER complaining of bilateral shoulder pain, fever and chills. Ms. CALLAHAN reports her symptoms began approximately 2 to 3 days prior to admission with bilateral shoulder pain on the right greater than the left with movement making the pain worse. She also admits to headache, tinnitus and dysuria with patient worried she may be becoming septic because she had a similar constellation of symptoms previously. She denies numbness and tingling in her right upper extremity. In the ER the patient underwent arthrocentesis of the Right shoulder which revealed highly elevated blood count of greater than ~190K consistent with septic arthritis of the Right shoulder with the ER physician then contacting Dr. Buchanan of orthopedic surgery to arrange immediate surgical debridement. The hospitalist service was asked to admit this patient and help to manage her due to her medical complexity and signs of sepsis present on admission with leukocytosis of 15 and lactic acidosis of 3.1 mmol/L with an ESR of 86 and a C- reactive protein of 79 and she was then written admission orders to the ICU for ongoing care for a stay that is expected to be greater than 48 hours. 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 Lupus anticoagulant disorder Morbid obesity MTHFR mutation Obesity KIKI (obstructive sleep apnea) Other complications of skin graft (allograft) (autograft) Pleural effusion, left Pulmonary embolism Rheumatoid arthritis Rheumatoid arthritis RLS (restless legs syndrome) Sinus tachycardia Home Medications bupropion HCl 300 mg 24 hr tablet, extended release 300 mg PO DAILY mental health 08/25/18 [History Last Taken 08/28/23] ropinirole 2 mg tablet,extended release 24 hr 2 mg PO QHS restless legs 08/25/18 [History Last Taken 09/20/22] rivaroxaban 20 mg tablet (Xarelto) 20 mg PO DAILY blood thinner 06/01/22 [History Last Taken 08/27/23] atenolol 50 mg tablet 50 mg PO DAILY HEART 09/21/22 [History Last Taken 08/28/23] biotin 1 ea PO/SL DAILY SUPPLEMENT 09/21/22 [History Last Taken 08/28/23] brexpiprazole 1 mg tablet (Rexulti) 1 mg PO DAILY MENTAL HEALTH 09/21/22 [History Last Taken 08/28/23] buspirone 10 mg tablet 10 mg PO DAILY ANXIETY 09/21/22 [History Last Taken 08/28/23] buspirone 10 mg tablet 20 mg PO QHS ANXIETY 09/21/22 [History Last Taken 08/27/23] fluvoxamine 100 mg tablet 100 mg PO DAILY MENTAL HEALTH 09/21/22 [History Last Taken 08/28/23] pantoprazole 40 mg tablet,delayed release 40 mg PO BID reflux #60 tabs 10/26/22 [Rx Last Taken 08/28/23] sucralfate 1 gram tablet 1 g PO Q6H reflux #120 tabs 10/26/22 [Rx Last Taken 08/28/23] tocilizumab 162 mg/0.9 mL subcutaneous syringe (Actemra) 162 mg subcut .weekly immunosuppressant 03/18/23 [History Last Taken 08/28/23] duloxetine 30 mg capsule,delayed release 30 mg PO DAILY mental health 06/29/23 [History Last Taken 08/28/23] quetiapine 50 mg tablet 50 mg PO QHS sleep 06/29/23 [History Last Taken 08/27/23] semaglutide 0.25 mg or 0.5 mg (2 mg/3 mL) subcutaneous pen injector (Ozempic) 0.5 mg subcut QWEEK diabetes 06/29/23 [History Last Taken Unknown] tizanidine 4 mg tablet 4 mg PO QHS spasms 06/29/23 [History Last Taken Unknown] pramipexole 0.75 mg tablet 0.75 mg PO TID restless leg 08/17/23 [History Last Taken Unknown] acetaminophen 325 mg tablet 1,000 mg (3.0769 x 325 mg) PO Q8H PRN PRN Fever, pain 1-04/30 #0 tabs 08/23/23 [Rx Last Taken 09/14/23] buprenorphine HCl 150 mcg buccal film (Belbuca) 150 mcg buccal Q12H pain relief 3 days #6 ea 08/23/23 [Rx Last Taken Unknown] ferrous sulfate 325 mg (65 mg iron) tablet (FeroSul) 325 mg PO QODAY@1200 anemia #0 tabs 08/23/23 [Rx Last Taken 08/27/23] quetiapine 25 mg tablet 25 mg PO .at bedtime sleep 08/28/23 [History Last Taken 08/27/23] prednisone 20 mg tablet 60 mg (3 x 20 mg) PO BREAKFAST #42 tabs 09/19/23 [Rx Last Taken Unknown] Allergy/AdvReac Type Severity Reaction Status Date / Time adhesive tape AdvReac Rash Verified 10/05/23 19:17 Family History Mother Cancer Lung CA w/ concurrent tobacco use. Heart disease Father No problems noted. Surgical History History of arthroscopy of right shoulder History of fasciotomy History of hysterectomy History of total bilateral knee replacement S/P pericardial window creation Social History household members: family Smoking Status: Never smoker alcohol intake: never substance use type: does not use ROS ROS Narrative Review of systems: General: Patient admits to fever and chills. HENT: Patient admits to headache and severe tinnitus but she denies runny nose or sore throat. EYES: Denies changes in vision or discharge from eyes. Resp: Denies cough, denies shortness of breath Cardiac: Denies chest pain or palpitations. GI: Denies abdominal pain, denies changes in bowel, had some nausea : Patient admits to mild dysuria but denies hematuria or urinary frequency. Extremity: Denies swelling Musculoskeletal: Feels somewhat generally weak and unwell Neuro: Patient admits to headache but denies any numbness/tingling Heme: Denies any bleeding or bruising Skin: Denies rashes Psychiatric: No complaints voiced related to uncontrolled depression or anxiety. Endocrine: No polyuria, polydipsia or polyphagia. The rest of the 14 point ROS was negative except for positives in HPI. Vital Signs Vital Signs Vital Signs: 10/05/23 19:15 10/05/23 19:39 10/05/23 19:39 Temperature 99.4 F H 97.4 F L Temperature Source Oral Oral Pulse Rate 136 H 126 H 126 H Respiratory Rate 20 H 14 17 Blood Pressure 167/93 H 145/98 H 145/98 H Blood Pressure Mean 117 113 113 Pulse Ox 100 97 97 Oxygen Delivery Method Room Air Room Air Room Air 10/05/23 21:18 10/05/23 21:18 10/05/23 22:33 Temperature 99.4 F H 99.4 F H 99.0 F Temperature Source Oral Oral Oral Pulse Rate 121 H 122 H 129 H Respiratory Rate 20 H 22 H 16 Blood Pressure 130/80 H 130/80 H 119/83 H Blood Pressure Mean 96 96 95 Pulse Ox 97 96 100 Oxygen Delivery Method Room Air Room Air Room Air Weight Weight: 327 lb Body Mass Index (BMI) 52.7 Physical Exam Const alert and oriented x3 Constitutional Narrative: Patient appears uncomfortable and does not look well with the beginnings of toxic appearance with complaints of anxiety about her infected shoulder. General Appearance: cooperative HEENT normocephalic, head/scalp atraumatic and hearing grossly normal bilaterally HEENT Narrative: Mucous membranes dry. Eyes PERRL, EOMs intact bilaterally and conjunctivae normal Neck no lymphadenopathy and supple Resp normal respiratory effort, no retractions, no use of accessory muscles and clear to auscultation bilaterally Cardio regular rate and regular rhythm GI normal to inspection, nondistended, normoactive bowel sounds, soft to palpation, non-tender and non-distended GI Narrative: Morbidly obese. Skin Skin Narrative: Patient has no evidence of rash. She has a well-healed surgical scar over her right shoulder. Neuro oriented x3, CN's II-XII intact bilaterally, moves all extremities and no focal motor deficits Sensorium / Orientation: awake, alert, oriented to person, oriented to place and oriented to time Speech: speech normal Psych Mood & Affect: anxious Results Medical Records Data Attestation: I reviewed the patient's medical records Lab / Micro Data Attestation: I reviewed the patient's lab results. 10/05/23 19:40 10/05/23 19:40 Labs: Laboratory Results - last 24 hr 10/05/23 19:40: WBC 15.0 H, RBC 4.59, Hgb 11.1 L, Hct 38.6, MCV 84.1, MCH 24.2 L , MCHC 28.8 L, RDW Std Deviation 67.7 H, RDW Coeff of [place]pe 22.4 H, Plt Count 410, MPV 10.1, Immature Gran % (Auto) 0.500, Neut % (Auto) 78.2 H, Lymph % (Auto) 11.6 L, [place] % (Auto) 8.6, Eos % (Auto) 0.9, Baso % (Auto) 0.2, Absolute Neuts (auto) 11.7 H, Absolute Lymphs (auto) 1.74, Nucleated RBC % 0, Platelet Estimate ADEQUATE, Anisocytosis 1+, ESR 86 H, Sodium 136, Potassium 4.7, Chloride 102, Carbon Dioxide 27.0, Anion Gap 7, BUN 28 H, Creatinine 1.55 H, Estim Creat Clear Calc 63.61, Est GFR (MDRD) Af Amer 45 L, Est GFR (MDRD) Non-Af 37 L, BUN/Creatinine Ratio 18.1, Glucose 110 H, Lactic Acid 3.1 H*, Calcium 10.1, Total Bilirubin 0.50, AST 20, ALT 25, Alkaline Phosphatase 120 H, C-React Prot Ext Range 79.00 H, Total Protein 7.8, Albumin 3.1 L, Globulin 4.7 H, Albumin/G lobulin Ratio 0.7 L 10/05/23 20:38: Urine Color Yellow, Urine Clarity Clear, Urine pH 5.0, Ur Specific [place] 1.010, Urine Protein 30 H, Urine Glucose (UA) Normal, Urine Ketones 5 H, Urine Occult Blood 250 H, Urine Nitrite Negative, Urine Bilirubin 1 H, Urine Urobilinogen Normal, Ur Leukocyte Esterase 25 H, Urine RBC 0-5 SEEN, Urine WBC 0-5 SEEN, Ur Squamous Epith Cells 0 SEEN, Urine Bacteria RARE, Urine Mucus 0 SEEN 10/05/23 21:44: Fluid Crystal Source SYNOVIAL, Synovial Source RIGHT SHOULDER, Synovial Color Yellow, Synovial Appearance Turbid, Synovial WBC 190.3800 H, Synovial RBC 0.040 H, Synovial Tot Cell Ct 190.6500 H, Synov Polynuclear WBCs 174.000, Synov Mononuclear WBCs 16.380, Synovial Polynuclear % 91.3, Synovial Mononuclear % 8.7 Imaging Radiology Impression Shoulder X-Ray 10/05/23 20:30 IMPRESSION: 1. No acute fracture or dislocation. 2. Moderate acromioclavicular joint arthrosis. Electronically Signed: Bry Arteaga MD at 21:15 EDT Reading Location ID and State: [id number] / [employer] Tel , Service support , Shoulder X-Ray 10/05/23 21:00 IMPRESSION: 1. No acute fracture or dislocation. 2. Moderate acromioclavicular joint arthrosis. Electronically Signed: Bry Arteaga MD at 21:16 EDT Reading Location ID and State: [id number] / [employer] Tel , Service support , Assessment & Plan Assessment/Plan (1) Pyogenic bacterial arthritis of right shoulder: (2) Sepsis: QUALIFIERS: Sepsis type: sepsis due to unspecified organism Sepsis acute organ dysfunction status: without acute organ dysfunction Qualified Code(s): A41.9 - Sepsis, unspecified organism PLAN: Plan 1. Septic arthritis of the right shoulder with clinical signs of sepsis with leukocytosis of 15 and lactic acidosis of 3.1 mmol/L with an ESR of 86 and a C- reactive protein of 79 present on admission in the setting of a known history of MRSA - Patient has no cardiac or other medical limitations that would prevent her from going for emergent orthopedic surgery for debridement of the right shou lder. ICU orders were placed with patient to be treated with a combination of IV Zyvox and IV Cleocin due to her recent acute interstitial nephritis initially attributed to Augmentin and in an effort to avoid vancomycin to avoid potential further deterioration of her renal function. Patient's second lactate dropped to 2.6 mmol/L after initial round of treatment. Finally, we will consult the director appointment on-call to see this patient on rounds in the a.m. for further recommendations with help appreciated in advance. 2. Recent admission here from September 10, 2023 through September 12, 2023 for nausea and left lower extremity cellulitis; with subsequent severe acute interstitial nephritis requiring hemodialysis initially attributed to Augmentin; with right subclavian vascular catheter still in place followed by a subsequent admission here from September 13, 2023 to September 19, 2023 for treatment of JAGDISH and chronic lower extremity cellulitis treated initially with IV Unasyn and then switched to Augmentin at time of discharge - Noted. 3. History of DVT/PE; with MTHFR mutation and lupus anticoagulant disorder on Xarelto - Hold Xarelto preoperatively. Orthopedic surgeon to decide upon postoperative DVT prophylaxis in this high risk patient. 4. Diabetes mellitus type 2; of unknown control with diabetic neuropathy and diabetic gastroparesis - Keep n.p.o. for now. Check fingerstick blood sugars every 6 hours plus give lowest intensity sliding scale insulin. 5. Morbid obesity; BMI 52.8 this admission plus obstructive sleep apnea; on CPAP - Weight loss will be recommended. Continue nocturnal CPAP as previous. 6. Essential hypertension - Hold scheduled antihypertensives in light of overwhelming systemic infection involving outlined in #1. 7. History of compartment syndrome of the left lower extremity; status post fasciotomy - Noted. 8. Celiac disease - Stable. 9. RA - Apparently stable at this time. 10. Osteoarthritis; with history of bilateral total knee replacement and chronic back pain on buprenorphine - Noted. Patient's pain regimen will need to be modified by orthopedic surgery in an effort to manage her acute pain with a goal to be placed back on her previous therapy when it is appropriate to do so. 11. History of GI bleed with chronic blood loss anemia / SOLOMON - Stable with hemoglobin of 11.1 g/dL present on admission. 12. RLS - Restart current medical therapy after surgical intervention. 13. Depression with anxiety; on multiple antidepressants - Hold these agents for now as patient will be on IV Zyvox creating a relative contraindication until Zyvox is stopped. 14. DVT prophylaxis - As per orthopedic surgery. Total time: Approximately 75 minutes. Sepsis Attestation Sepsis Alert: Yes Sepsis Attestation: Agree w/Sepsis Date exam was performed: 10/05/23 Time exam was performed: 23:00 Possible Source of Sepsis: Bone/joint Sepsis Organ Dysfunction Criteria Present: Lactic Acid > 2 mmol/L Fluid Resuscitation Fluid resuscitation indicated?: Yes Fluid Resuscitation ordered: 30 ml/kg fluid bolus ordered Amount of fluid ordered: 4 Sepsis Note Date exam was performed: 10/06/23 Time exam was performed: 03:00 Sepsis Attestation: Sepsis re-evaluation was performed Response to fluids: Fluid responsive hypotension Charges/Coding Visit Charges Inpatient E&M: 15059 Init Hosp L3
[2023-10-05 23:11] LABS: CRYSTALS, BODY FLUID NO CRYSTALS SEEN
[2023-10-05 23:20] LABS: Monocyte /Synovial Fluid 8 %; Neutrophil 92 % (0-25)
[2023-10-05 23:21] LABS: Body Fluid QC Type(s) BF1Q,BF2Q
[2023-10-05] MEDS: 0.9% Normal Saline (1000mL) 1,000 ML 1000 ML IV (23:32)
[2023-10-05] MEDS: Vancomycin HCl 2,000 MG in 0.9% Normal Saline (500mL Bag) 500 ML 250 MG IV (23:32)
[2023-10-05] MEDS: Morphine 4 MG/ML Syringe IV (23:32)
[2023-10-05 23:49] LABS: Reflex Lactate? Y
[2023-10-06] VITALS (21 sets, daily range): BP systolic 92–169; BP diastolic 57–96; PULSE 112–128; RESP 16–44; TEMP 36.6–37.8; O2SAT 91–100; BMI 53.1; BMI 54.1
--- NOTE | 2023-10-06 | CON.PCM.OR_ITS ---
HPI Consult Data Date of Consult: 10/06/23 HPI Narrative Reason for Consultation: Right shoulder pain HPI Narrative: RICCARDO VICKERS, is a 52 morbidly obese F who presents with severe right shoulder pain acute in onset. Patient notes that she has had chronic right shoulder pain and dysfunction. She had a previous right shoulder rotator cuff tendon repair she is unsure of what year but since that time she has continued had difficulty with overhead range of motion and activities. However, she was in the hospital for most of the month of August for sepsis and cellulitis and does have a history of MRSA. She presents today with severe right shoulder swelling pain with passive motion. She was seen and evaluated in the emergency department. White blood cell count from synovial cell count was 190,000. Patient's ESR and CRP are elevated. She has elevated lactic acidosis. She has signs of sepsis. She is right-hand dominant. Additionally, after her recent bout with sepsis she had acute renal failure and is a temporary port and has been undergoing dialysis. She was sent for reevaluation of her dialysis and kidney failure this Saturday. Currently patient reports noted 10 pain worse with motion better with immobilization. No numbness and tingling distally. [facility] Medical History (Updated 10/06/23 @ 00:[address] Abhishek Buchanan MD) Anemia Anticoagulant long-term use Anxiety and depression Bilateral lower extremity edema Celiac disease CKD (chronic kidney disease) Compartment syndrome of left lower extremity Diabetes mellitus, type 2 Gastroparesis GERD (gastroesophageal reflux disease) High risk medication use History of pulmonary embolism History of venous thromboembolism Immunocompromised state due to drug therapy Iron deficiency anemia due to chronic blood loss FCI current use of anticoagulant Lupus anticoagulant disorder Morbid obesity MTHFR mutation Obesity KIKI (obstructive sleep apnea) Other complications of skin graft (allograft) (autograft) Pleural effusion, left Pulmonary embolism Rheumatoid arthritis Rheumatoid arthritis RLS (restless legs syndrome) Sinus tachycardia Home Medications bupropion HCl 300 mg 24 hr tablet, extended release 300 mg PO DAILY mental health 08/25/18 [History Last Taken 08/28/23] ropinirole 2 mg tablet,extended release 24 hr 2 mg PO QHS restless legs 08/25/18 [History Last Taken 09/20/22] rivaroxaban 20 mg tablet (Xarelto) 20 mg PO DAILY blood thinner 06/01/22 [Hi story Last Taken 08/27/23] atenolol 50 mg tablet 50 mg PO DAILY HEART 09/21/22 [History Last Taken 0 08/28/23] biotin 1 ea PO/SL DAILY SUPPLEMENT 09/21/22 [History Last Taken 08/28/23] brexpiprazole 1 mg tablet (Rexulti) 1 mg PO DAILY MENTAL HEALTH 09/21/22 [History Last Taken 08/28/23] buspirone 10 mg tablet 10 mg PO DAILY ANXIETY 09/21/22 [History Last Taken 08/28/23] buspirone 10 mg tablet 20 mg PO QHS ANXIETY 09/21/22 [History Last Taken 08/27/23] fluvoxamine 100 mg tablet 100 mg PO DAILY MENTAL HEALTH 09/21/22 [History Last Taken 08/28/23] pantoprazole 40 mg tablet,delayed release 40 mg PO BID reflux #60 tabs 10/26/22 [Rx Last Taken 08/28/23] sucralfate 1 gram tablet 1 g PO Q6H reflux #120 tabs 10/26/22 [Rx Last Taken 08/28/23] tocilizumab 162 mg/0.9 mL subcutaneous syringe (Actemra) 162 mg subcut .weekly immunosuppressant 03/18/23 [History Last Taken 08/28/23] duloxetine 30 mg capsule,delayed release 30 mg PO DAILY mental health 06/29/23 [History Last Taken 08/28/23] quetiapine 50 mg tablet 50 mg PO QHS sleep 06/29/23 [History Last Taken 08/27/23] semaglutide 0.25 mg or 0.5 mg (2 mg/3 mL) subcutaneous pen injector (Ozempic) 0.5 mg subcut QWEEK diabetes 06/29/23 [History Last Taken Unknown] tizanidine 4 mg tablet 4 mg PO QHS spasms 06/29/23 [History Last Taken Unknown] pramipexole 0.75 mg tablet 0.75 mg PO TID restless leg 08/17/23 [History Last Taken Unknown] acetaminophen 325 mg tablet 1,000 mg (3.0769 x 325 mg) PO Q8H PRN PRN Fever, pain 1-10/10 #0 tabs 08/23/23 [Rx Last Taken 09/14/23] buprenorphine HCl 150 mcg buccal film (Belbuca) 150 mcg buccal Q12H pain relief 3 days #6 ea 08/23/23 [Rx Last Taken Unknown] ferrous sulfate 325 mg (65 mg iron) tablet (FeroSul) 325 mg PO QODAY@1200 anemia #0 tabs 08/23/23 [Rx Last Taken 08/27/23] quetiapine 25 mg tablet 25 mg PO .at bedtime sleep 08/28/23 [History Last Taken 08/27/23] prednisone 20 mg tablet 60 mg (3 x 20 mg) PO BREAKFAST #42 tabs 09/19/23 [Rx Last Taken Unknown] Allergy/AdvReac Type Severity Reaction Status Date / Time adhesive tape AdvReac Rash Verified 10/05/23 19:17 Family History Mother Cancer Lung CA w/ concurrent tobacco use. Heart disease Father No problems noted. Surgical History (Updated 10/06/23 @ 00:[address] Abhishek Buchanan MD) History of arthroscopy of right shoulder History of fasciotomy History of hysterectomy History of total bilateral knee replacement S/P pericardial window creation Social History household members: family Smoking Status: Never smoker alcohol intake: never substance use type: does not use ROS Constitutional Constitutional: Reports body ache(s) and chills Eyes Eyes: Reports systems reviewed and no addt'l complaints, except as documented ENT HEENT: Reports systems reviewed and no addt'l complaints, except as documented Cardiovascular Cardiovascular: Reports systems reviewed and no addt'l complaints, except as documented Respiratory/Chest Respiratory/Chest: Reports systems reviewed and no addt'l complaints, except as documented Gastrointestinal Gastrointestinal: Reports nausea Genitourinary Genitourinary: Reports systems reviewed and no addt'l complaints, except as documented Musculoskeletal Musculoskeletal: Reports systems reviewed and no addt'l complaints, except as documented Integumentary Integumentary: Reports systems reviewed and no addt'l complaints, except as documented Neurologic Neurologic: Reports systems reviewed and no addt'l complaints, except as documented Psychiatric Psychiatric: Reports systems reviewed and no addt'l complaints, except as documented Hematologic/Lymphatic Hematologic/Lymphatic: Reports other Details: ON ANTICOAGULANT Vital Signs Vital Signs Vital Signs: 10/05/23 19:15 10/05/23 19:39 10/05/23 19:39 Temperature 99.4 F H 97.4 F L Temperature Source Oral Oral Pulse Rate 136 H 126 H 126 H Respiratory Rate 20 H 14 17 Blood Pressure 167/93 H 145/98 H 145/98 H Blood Pressure Mean 117 113 113 Pulse Ox 100 97 97 Oxygen Delivery Method Room Air Room Air Room Air 10/05/23 21:18 10/05/23 21:18 10/05/23 22:33 Temperature 99.4 F H 99.4 F H 99.0 F Temperature Source Oral Oral Oral Pulse Rate 121 H 122 H 129 H Respiratory Rate 20 H 22 H 16 Blood Pressure 130/80 H 130/80 H 119/83 H Blood Pressure Mean 96 96 95 Pulse Ox 97 96 100 Oxygen Delivery Method Room Air Room Air Room Air 10/05/23 23:00 10/05/23 23:00 10/05/23 23:35 Temperature 100.4 F H 100.6 F H Temperature Source Oral Pulse Rate 126 H 126 H Respiratory Rate 22 H 22 H 22 H Blood Pressure 141/90 H 141/90 H Blood Pressure Mean 107 107 Pulse Ox 94 94 Oxygen Delivery Method Room Air 10/05/23 23:33 Temperature Temperature Source Pulse Rate 121 H Respiratory Rate 16 Blood Pressure 141/90 H Blood Pressure Mean 107 Pulse Ox 97 Oxygen Delivery Method Room Air Weight Weight: 327 lb Body Mass Index (BMI) 52.7 Physical Exam Const alert and oriented x3 General Appearance: cooperative HEENT normocephalic and head/scalp atraumatic Eyes PERRL Neck no JVD Resp normal respiratory effort Cardio Cardio Narrative: Regular pulse GI non-distended GI Narrative: Morbidly obese abdomen Extremity Extremity Narrative: Right upper extremity: Right shoulder swollen. Increased warmth to touch. Mild erythema. Strength and range of motion examined deferred secondary to pain. Positive thumbs up, okay sign cross his fingers. Sensations intact light touch axillary/R/M/U. Patient has pain with passive short arc range of motion of the glenohumeral joint Neuro CN's II-XII intact bilaterally Psych affect normal Medical Records Data Attestation: I reviewed the patient's medical records Lab / Micro Data Attestation: I reviewed the patient's lab results. 10/05/23 19:40 10/05/23 19:40 Labs: Laboratory Results - last 24 hr 10/05/23 19:40: WBC 15.0 H, RBC 4.59, Hgb 11.1 L, Hct 38.6, MCV 84.1, MCH 24.2 L , MCHC 28.8 L, RDW Std Deviation 67.7 H, RDW Coeff of Chepe 22.4 H, Plt Count 410, MPV 10.1, Immature Gran % (Auto) 0.500, Neut % (Auto) 78.2 H, Lymph % (Auto) 11.6 L, Emmet % (Auto) 8.6, Eos % (Auto) 0.9, Baso % (Auto) 0.2, Absolute Neuts (auto) 11.7 H, Absolute Lymphs (auto) 1.74, Nucleated RBC % 0, Platelet Estimate ADEQUATE, Anisocytosis 1+, ESR 86 H, Sodium 136, Potassium 4.7, Chloride 102, Carbon Dioxide 27.0, Anion Gap 7, BUN 28 H, Creatinine 1.55 H, Estim Creat Clear Calc 63.61, Est GFR (MDRD) Af Amer 45 L, Est GFR (MDRD) Non-Af 37 L, BUN/Creatinine Ratio 18.1, Glucose 110 H, Lactic Acid 3.1 H*, Calcium 10.1, Total Bilirubin 0.50, AST 20, ALT 25, Alkaline Phosphatase 120 H, C-React Prot Ext Range 79.00 H, Total Protein 7.8, Albumin 3.1 L, Globulin 4.7 H, Albumin/Globulin Ratio 0.7 L 10/05/23 20:38: Urine Color Yellow, Urine Clarity Clear, Urine pH 5.0, Ur Specific [place] 1.010, Urine Protein 30 H, Urine Glucose (UA) Normal, Urine Ketones 5 H, Urine Occult Blood 250 H, Urine Nitrite Negative, Urine Bilirubin 1 H, Urine Urobilinogen Normal, Ur Leukocyte Esterase 25 H, Urine RBC 0-5 SEEN, Urine WBC 0-5 SEEN, Ur Squamous Epith Cells 0 SEEN, Urine Bacteria RARE, Urine Mucus 0 SEEN 10/05/23 21:44: Fluid Crystals NO CRYSTALS SEEN, Fluid Crystal Source SYNOVIAL, Fl Crystal Path Review Will follow, Synovial Source RIGHT SHOULDER, Synovial Color Yellow, Synovial Appearance Turbid, Synovial WBC 190.3800 H, Synovial RBC 0.040 H, Synovial Tot Cell Ct 190.6500 H, Synov Polynuclear WBCs 174.000, Synov Mononuclear WBCs 16.380, Synovial Neutrophils 92 H, Synovial Monocytes 8, Synovial Polynuclear % 91.3, Synovial Mononuclear % 8.7, Synovial Path Comment May follow Imaging Radiology Impression Shoulder X-Ray 10/05/23 20:30 IMPRESSION: 1. No acute fracture or dislocation. 2. Moderate acromioclavicular joint arthrosis. Electronically Signed: Bry Arteaga MD at 21:15 EDT Reading Location ID and State: [employer] / [employer] , Service support , Shoulder X-Ray 10/05/23 21:00 IMPRESSION: 1. No acute fracture or dislocation. 2. Moderate acromioclavicular joint arthrosis. Electronically Signed: Bry Arteaga MD at 21:16 EDT Reading Location ID and State: [employer] / [employer] , Service support , Assessment & Plan Assessment/Plan (1) Septic arthritis of shoulder, right: PLAN: Patient's clinical examination and aspiration results consistent with septic arthritis of the right shoulder. Patient has enterprise shoulder. Based on this and her acute sepsis and decreasing blood pressure patient likely needs emergent care for her right septic shoulder. Additionally radiographs show minimal arthrosis. However, patient does report symptoms consistent with chronic rotator cuff insufficiency or injury. She has previous rotator cuff tendon tear which was repaired surgically. Ultimately after thorough discussion of the natural history of this disease process and available treatment options we have elected proceed with arthroscopic irrigation debridement of the right shoulder. Patient understands risk and benefits of the procedure which include but not limited to blood loss, DVTs, PEs, nervous damage, fashion, the risk of anesthesia including loss of life. We also discussed stiffness and difficulty with mobilization continuing or worsening after surgery. Additionally, we discussed that during debridement the goal is to decrease all residual infectious etiology this may include debriding some of her rotator cuff tendon if it is already torn. Patient demonstrates understanding wish to proceed. Finally, we discussed her Xarelto which her last dose was taken last evening. Patient is at high risk for bleeding however with her acute sepsis worsening all parties agreed to proceed with surgical intervention medicine service feels patient is appropriate for surgery based on discussions with the emergency room department and medical team.Patient has been started on IV antibiotics in the emergency department. (2) Severe sepsis with acute organ dysfunction: PLAN: Per primary service (3) End stage renal failure on dialysis: PLAN: Per primary service (4) Diabetes mellitus, type 2: PLAN: Per primary service (5) Obesity, morbid, BMI 50 or higher: PLAN: Per primary service
[2023-10-06 00:37] LABS: Lactic Acid 2.6 mmol/L (0.4-1.9)
--- NOTE | 2023-10-06 01:20 | OP.PCM_ITS ---
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 Diagnostic arthroscopy with irrigation debridement right shoulder 2. Complete arthroscopic synovectomy right shoulder Description of Surgical Findings:: Patient had grade IV chondromalacia on the glenoid and humeral head. Chronic retracted rotator cuff tendon tear was noted. Upon placing the posterior trocar significant purulent fluid came from the joint. Surgeon: Abhishek Buchanan mid level project manager: Adilene Andino Type of Anesthesia: General Anesthesiologist: Leland Dominique Special Medications: Antibiotics given per primary service Estimated Blood Loss (mL): 25 Fluids Replaced: 350 Description of Procedure: On the date of the procedure patient was seen and evaluated in the preoperative area. Risks and benefits of the procedure were discussed the patient as noted in the consultation. Patient had evidence consistent with right shoulder septic arthritis. Patient was then consented for surgery and the right upper extremity was marked after agreeing upon this is the appropriate joint. Patient was then taken back to the operating room and transferred to the table in the supine p osition. Upon transfer to the table anesthesia obtained controlled the C-spine and airway and remained controlled throughout the remainder of the procedure. After appropriately anesthetized the patient patient's head was placed in the beachchair position waiter/waitress head and turned to the contralateral side. Patient was then placed up in the beachchair position and secured to the bed. The right upper extremity was then prepped in a sterile fashion while the surgeon scrubbed. Upon reentering the room the right upper extremity was draped in a standard orthopedic fashion. Incisions were marked out using previous anterior and posterior portals. Everyone agreed upon the side, the site, the procedure to be performed, patient's identity and antibiotics given. At this time we palpated the acromion to confirm that we want to use the previous posterior incision and we did. Incision was made with a 11 blade scalpel. Trocar was placed into the joint. Copious amounts of purulent fluid came from the joint. Camera was placed in the joint. We were able to visualize the joint. Once we are able to visualize joint we able to explore. Patient has significant synovitis. He had grade IV chondromalacia on the glenoid and humeral head and when looking superiorly patient appeared to have a large rotator cuff tendon tear leading us right into the subacromial space. Using the previous anterior portal incision we are able to palpate and verify it was appropriate. Spinal needle was placed again verifying appropriateness. Knife was then used to incise the skin and the trocar was placed into the joint. Finally the shaver was placed in the joint. Shaver was used to do a complete synovectomy and then 6 L of normal saline were irrigated throughout the wound. 1 6 L were irrigated throughout the wound and again visualized the joint noted that appropriate synovectomy had been performed and the shaver was removed. Once the shaver was removed the camera was then removed and the wounds were closed using nylon suture. Xeroform dressing was placed. Sterile dressing was placed. Patient was placed in a sling and awakened by anesthesia. Postop plan: Patient be nonweightbearing for the next 2 weeks. Will allow shoulder for rest. She will start physical therapy at her 2-week postoperative visit. Patient to follow-up in the office in 2 weeks. Patient can resume her Xarelto tomorrow. Antibiotics per primary service and infectious disease consult is recommended to on this patient. Complications NONE Admit VTE Documentation VTE Present on Admission: No VTE Mechan Device Prophylaxis: SCD's VTE Pharm Prophylaxis ordered?: Yes
[2023-10-06] MEDS: Morphine 2 MG/ML Syringe IV ×3 (02:01→14:34)
[2023-10-06] MEDS: 0.9% Normal Saline (1000mL) 1,000 ML 999 ML IV ×3 (02:02→05:17)
[2023-10-06] MEDS: Linezolid 600 MG 600 MG/300 ML BAG 200 MG IV ×3 (02:50→23:00)
[2023-10-06] MEDS: Piperacil/Tazobactam 3.375 GM in 0.9% Normal Saline (50mL MB+) 50 ML IV ×3 (02:56→23:00)
[2023-10-06] MEDS: 0.9% Normal Saline (250mL Bag) 250 ML 15 ML IV (02:56)
[2023-10-06 03:51] LABS: Reflex Lactate? Y
[2023-10-06] MEDS: Ondansetron 4 MG/2 ML Vial IV ×2 (04:15→09:58)
[2023-10-06] MEDS: 0.9% Saline Lock 10 ML Syringe IV ×2 (06:14→22:59)
[2023-10-06 07:21] LABS: Absolute Lymphocyte Count 2.24 X10^3/uL (0.83-4.51); Absolute Neutrophil Count 10.1 X10^3/uL (2.0-7.7); Basophil# 0.02 X10^3/uL; Basophil% 0.1 % (0-1); Eosinophil# 0.21 X10^3/uL; Eosinophils% 1.5 % (0-5); Lymphocyte # 2.24 X10^3/ul (0.83-4.51); Lymphocyte % 15.9 % (19-41); Mean Corpuscular Hgb 25.1 pg (27.0-32.0); Mean Corpuscular Volume 83.8 fL (81-99); Mean Platelet Vol. 9.9 fl (6.2-12.0); Monocyte# 1.45 X10^3/uL; Monocyte% 10.3 % (0-10); NRBC Flagged by Analyzer 0 % (0-5); Neutrophil # 10.07 X10^3/uL (2.7-7.7); Neutrophil % 71.8 % (47-70); POSITIVE MORPHOLOGY YES; Platelet Count 287 K/mm3 (150-450); RBC Distribution Width CV 22.2 % (11.6-14.6); RBC Distribution Width SD 68.1 fl (35.1-43.9); Red Blood Count 3.58 M/mm3 (4.2-5.4); White Blood Count 14.1 K/mm3 (4.4-11.0)
[2023-10-06 07:23] LABS: Differential Indicated SCAN CRITERIA MET
[2023-10-06 07:46] LABS: Anion Gap 8 (5-15); BUN 26 mg/dL (7-18); BUN/Creat Ratio 16.2 RATIO (10-20); Calcium,Total 8.1 mg/dL (8.5-10.1); Chloride 108 mmol/L (98-107); EST Glomerular Filtration Rate 36 mL/min (>60); Est Glom Filt Rate - Afr Amer 43 mL/min (>60); Estimated Creatinine Clearance 61.88 ml/min; Glucose 128 mg/dL (74-106); Potassium 4.6 mmol/L (3.5-5.1); Sodium Level 136 mmol/L (136-145)
[2023-10-06 08:12] LABS: Lactic Acid 2.6 mmol/L (0.4-1.9)
[2023-10-06] MEDS: Acetaminophen 325 MG Tablet 650 MG PO (08:17)
--- NOTE | 2023-10-06 09:31 | PCMCONS.TICU ---
HPI Consult Data Date of Consult: 10/06/23 HPI Narrative Reason for Consultation: Sepsis, lactic acidosis HPI Narrative: 52F with very extensive PMH including but not limited to RA on chronic prednisone therapy (currently 60 mg/day; previously she used to be on 8-10 mg/day along with Actemra but this was stopped >1 month ago at the time of her last admission and she has been on higher doses of steroid since then), Lupus anticoag disorder with Hx VTED on Xarelto, super morbid obesity, KIKI on CPAP, DM2 cb neuropathy/gastroparesis, celiac disease, compartment syndrome of the left lower extremity sp fasciotomy, history of right rotator cuff tear sp tendon repair, OA, BL TKA, chronic back pain on buprenorphine, history of GI bleed, chronic anemia, depression with anxiety and multiple admissions including recent admission at the end of August at which time she was treated for sepsis and developed AIN presumed 2* Augmentin and required a few days of with right subclavian vascular catheter still in place who presented over night with fevers, general malaise, nausea and Rt >> Lt shoulder and Lt knee pain. In the ED she underwent arthrocentesis of the Right shoulder which revealed highly elevated blood count of greater than ~190K consistent with septic arthritis. Orthopedic surgery was consulted and surgical debridement was completed prior to admission the ICU due to lactic acidosis and sepsis with high degree of concern for clinical worsening. Critical care consulted this AM for on-going management. [facility] Medical History Anemia Anticoagulant long-term use Anxiety and depression Bilateral lower extremity edema Celiac disease CKD (chronic kidney disease) Compartment syndrome of left lower extremity Diabetes mellitus, type 2 Gastroparesis GERD (gastroesophageal reflux disease) High risk medication use History of pulmonary embolism History of venous thromboembolism Immunocompromised state due to drug therapy Iron deficiency anemia due to chronic blood loss [facility] current use of anticoagulant Lupus anticoagulant disorder Morbid obesity MTHFR mutation Obesity KIKI (obstructive sleep apnea) Other complications of skin graft (allograft) (autograft) Pleural effusion, left Pulmonary embolism Rheumatoid arthritis Rheumatoid arthritis RLS (restless legs syndrome) Sinus tachycardia Home Medications bupropion HCl 300 mg 24 hr tablet, extended release 300 mg PO DAILY mental health 08/25/18 [History Last Taken 08/28/23] ropinirole 2 mg tablet,extended release 24 hr 2 mg PO QHS restless legs 08/25/18 [History Last Taken 09/20/22] rivaroxaban 20 mg tablet (Xarelto) 20 mg PO DAILY blood thinner 06/01/22 [History Last Taken 08/27/23] atenolol 50 mg tablet 50 mg PO DAILY HEART 09/21/22 [History Last Taken 08/28/23] biotin 1 ea PO/SL DAILY SUPPLEMENT 09/21/22 [History Last Taken 08/28/23] brexpiprazole 1 mg tablet (Rexulti) 1 mg PO DAILY MENTAL HEALTH 09/21/22 [History Last Taken 08/28/23] buspirone 10 mg tablet 10 mg PO DAILY ANXIETY 09/21/22 [History Last Taken 08/28/23] buspirone 10 mg tablet 20 mg PO QHS ANXIETY 09/21/22 [History Last Taken 08/27/23] fluvoxamine 100 mg tablet 100 mg PO DAILY MENTAL HEALTH 09/21/22 [History Last Taken 08/28/23] pantoprazole 40 mg tablet,delayed release 40 mg PO BID reflux #60 tabs 10/26/22 [Rx Last Taken 08/28/23] sucralfate 1 gram tablet 1 g PO Q6H reflux #120 tabs 10/26/22 [Rx Last Taken 08/28/23] tocilizumab 162 mg/0.9 mL subcutaneous syringe (Actemra) 162 mg subcut .weekly immunosuppressant 03/18/23 [History Last Taken 08/28/23] duloxetine 30 mg capsule,delayed release 30 mg PO DAILY mental health 06/29/23 [History Last Taken 08/28/23] quetiapine 50 mg tablet 50 mg PO QHS sleep 06/29/23 [History Last Taken 08/27/23] semaglutide 0.25 mg or 0.5 mg (2 mg/3 mL) subcutaneous pen injector (Ozempic) 0.5 mg subcut QWEEK diabetes 06/29/23 [History Last Taken Unknown] tizanidine 4 mg tablet 4 mg PO QHS spasms 06/29/23 [History Last Taken Unknown] pramipexole 0.75 mg tablet 0.75 mg PO TID restless leg 08/17/23 [History Last Taken Unknown] acetaminophen 325 mg tablet 1,000 mg (3.0769 x 325 mg) PO Q8H PRN PRN Fever, pain 1-1010 #0 tabs 08/23/23 [Rx Last Taken 09/14/23] buprenorphine HCl 150 mcg buccal film (Belbuca) 150 mcg buccal Q12H pain relief 3 days #6 ea 08/23/23 [Rx Last Taken Unknown] ferrous sulfate 325 mg (65 mg iron) tablet (FeroSul) 325 mg PO QODAY@1200 anemia #0 tabs 08/23/23 [Rx Last Taken 08/27/23] quetiapine 25 mg tablet 25 mg PO .at bedtime sleep 08/28/23 [History Last Taken 08/27/23] prednisone 20 mg tablet 60 mg (3 x 20 mg) PO BREAKFAST #42 tabs 09/19/23 [Rx Last Taken Unknown] Allergy/AdvReac Type Severity Reaction Status Date / Time adhesive tape AdvReac Rash Verified 10/05/23 19:17 Family History Mother Cancer Lung CA w/ concurrent tobacco use. Heart disease Father No problems noted. Surgical History History of arthroscopy of right shoulder History of fasciotomy History of hysterectomy History of total bilateral knee replacement S/P pericardial window creation Social History household members: family Smoking Status: Never smoker alcohol intake: never substance use type: does not use ROS ROS Narrative Full 12 point ROS completed and neg unless stated in HPI above. Objective Data Objective Data Vital Signs: Vital Signs Last response Temperature 36.6 C 10/06/23 04:00 Temperature Source Temporal 10/06/23 04:00 Pulse Rate 123 H 10/06/23 06:00 Respiratory Rate 20 H 10/06/23 06:00 Blood Pressure 127/67 H 10/06/23 06:00 Blood Pressure Mean 87 10/06/23 06:00 Blood Pressure Source Monitor 10/06/23 06:00 Blood Pressure Position Supine 10/06/23 06:00 Blood Pressure Location Right Arm 10/06/23 06:00 Pulse Ox 94 10/06/23 06:00 Oxygen Delivery Method Room Air 10/06/23 06:00 I&O: I&O Last 24 Hours 10/05/23 10/05/23 10/06/23 11:59 23:59 11:59 Intake Total 5306.75 / 5306.75 Output Total 1050 / 1050 Balance 4256.75 / 4256.75 I&O: Total Stay 10/05/23 19:13 thru 10/06/23 08:00 Intake Total 5306.75 Output Total 1050 Balance 4256.75 Current Meds Ordered / Administered: Current meds ordered / Administered Generic Name Dose Route Start Last Admin Trade Name Freq PRN Reason Stop Dose Admin Acetaminophen 650 mg 10/06/23 01:42 10/06/23 08:17 Acetaminophen 325 Mg Tablet PO 650 mg Q8H PRN PRN Administration Fever, pain 1-5/10 Piperacillin Sod/Tazobactam 50 mls @ 12.5 mls/hr 10/06/23 02:00 10/06/23 07:08 Sod 3.375 gm/ Sodium Chloride IV Infused Q8 LENCHO Infusion Linezolid 600 mg in 300 mls @ 200 mls/hr 10/06/23 01:42 10/06/23 04:51 Zyvox 600mg IV Infused Q12 LENCHO Infusion Sodium Chloride 250 mls @ 15 mls/hr 10/06/23 01:46 10/06/23 03:15 IV 0 mls/hr .[id number] PRN Infusion Additional IVPB Infusion Sodium Chloride 250 mls @ 15 mls/hr 10/06/23 01:46 IV .[id number] PRN Saline Flush Lactated Ringer's 1,000 mls @ 100 mls/hr 10/06/23 09:30 IV .Q10H LENCHO Morphine Sulfate 2 mg 10/06/23 01:42 10/06/23 06:14 Morphine 2 Mg/Ml Syringe IV 2 mg Q4H PRN PRN Administration Pain Score 6-10 Ondansetron HCl 4 mg 10/06/23 03:53 10/06/23 04:15 Ondansetron 4 Mg/2 Ml Vial IV 4 mg Q6H PRN PRN Administration NAUSEA/VOMITING Sodium Chloride 10 - 40 ml 10/06/23 01:46 10/06/23 06:14 0.9% Saline Lock 10 Ml Syringe IV 40 ml UD PRN Administration SALINE FLUSH Lab / Micro Data 10/06/23 07:07 10/06/23 07:07 Labs: Laboratory Results - last 24 hr 10/05/23 19:40: WBC 15.0 H, RBC 4.59, Hgb 11.1 L, Hct 38.6, MCV 84.1, MCH 24.2 L, MCHC 28.8 L, RDW Std Deviation 67.7 H, RDW Coeff of Chepe 22.4 H, Plt Count 410, MPV 10.1, Immature Gran % (Auto) 0.500, Neut % (Auto) 78.2 H, Lymph % (Auto) 11.6 L, [place] % (Auto) 8.6, Eos % (Auto) 0.9, Baso % (Auto) 0.2, Absolute Neuts (auto) 11.7 H, Absolute Lymphs (auto) 1.74, Nucleated RBC % 0, Platelet Estimate ADEQUATE, Anisocytosis 1+, ESR 86 H, Sodium 136, Potassium 4.7, Chloride 102, Carbon Dioxide 27.0, Anion Gap 7, BUN 28 H, Creatinine 1.55 H, Estim Creat Clear Calc 63.61, Est GFR (MDRD) Af Amer 45 L, Est GFR (MDRD) Non-Af 37 L, BUN/Creatinine Ratio 18.1, Glucose 110 H, Lactic Acid 3.1 H*, Calcium 10.1, Total Bilirubin 0.50, AST 20, ALT 25, Alkaline Phosphatase 120 H, C-React Prot Ext Range 79.00 H, Total Protein 7.8, Albumin 3.1 L, Globulin 4.7 H, Albumin/Globulin Ratio 0.7 L 10/05/23 20:38: Urine Color Yellow, Urine Clarity Clear, Urine pH 5.0, Ur Specific [place] 1.010, Urine Protein 30 H, Urine Glucose (UA) Normal, Urine Ketones 5 H, Urine Occult Blood 250 H, Urine Nitrite Negative, Urine Bilirubin 1 H, Urine Urobilinogen Normal, Ur Leukocyte Esterase 25 H, Urine RBC 0-5 SEEN, Urine WBC 0-5 SEEN, Ur Squamous Epith Cells 0 SEEN, Urine Bacteria RARE, Urine Mucus 0 SEEN 10/05/23 21:44: Fluid Crystals NO CRYSTALS SEEN, Fluid Crystal Source SYNOVIAL, Fl Crystal Path Review Will follow, Synovial Source RIGHT SHOULDER, Synovial Color Yellow, Synovial Appearance Turbid, Synovial WBC 190.3800 H, Synovial RBC 0.040 H, Synovial Tot Cell Ct 190.6500 H, Synov Polynuclear WBCs 174.000, Synov Mononuclear WBCs 16.380, Synovial Neutrophils 92 H, Synovial Monocytes 8, Synovial Polynuclear % 91.3, Synovial Mononuclear % 8.7, Synovial Path Comment November follow 10/05/23 23:20: Blood Type O POSITIVE, Antibody Screen NEGATIVE 10/05/23 23:45: Lactic Acid 2.6 H* 10/06/23 07:07: WBC 14.1 H, RBC 3.58 L, Hgb 9.0 L, Hct 30.0 L, MCV 83.8, MCH 25.1 L, MCHC 30.0 L, RDW Std Deviation 68.1 H, RDW Coeff of Chepe 22.2 H, Plt Count 287, MPV 9.9, Immature Gran % (Auto) 0.400, Neut % (Auto) 71.8 H, Lymph % (Auto) 15.9 L, [place] % (Auto) 10.3 H, Eos % (Auto) 1.5, Baso % (Auto) 0.1, Absolute Neuts (auto) 10.1 H, Absolute Lymphs (auto) 2.24, Nucleated RBC % 0, Sodium 136, Potassium 4.6, Chloride 108 H, Carbon Dioxide 20.0 L, Anion Gap 8, BUN 26 H, Creatinine 1.60 H, Estim Creat Clear Calc 61.88, Est GFR (MDRD) Af Amer 43 L, Est GFR (MDRD) Non-Af 36 L, BUN/Creatinine Ratio 16.2, Glucose 128 H, Lactic Acid 2.6 H*, Calcium 8.1 L Imaging Radiology Impression Shoulder X-Ray 10/05/23 20:30 IMPRESSION: 1. No acute fracture or dislocation. 2. Moderate acromioclavicular joint arthrosis. Electronically Signed: Bry Arteaga MD at 21:15 EDT , Shoulder X-Ray 10/05/23 21:00 IMPRESSION: 1. No acute fracture or dislocation. 2. Moderate acromioclavicular joint arthrosis. Electronically Signed: Bry Arteaga MD at 21:16 EDT , Assessment and Plan . Assessment and plan: PE: General: Well developed, super morbidly obese; in no distress HEENT: anicteric Sclera, nl nose; supple neck, no masses Cardiovascular: S1/S2; No rubs, gallops; no displaced PM Respiratory: diminished; no crackles, wheezes, or rhonchi Abdominal: Non-tender; Non distended; hypoBS x 4; No Hepatosplenomegaly Extremities: Rt shoulder dressing intact; Lt elbow slightly warm but no palpable effusion/bogginess/tendernes; No clubbing, cyanosis; capillary refill < 2 sec Skin: intact, no rashes Neurological: A&Ox3; no gross deficits appreciated Psych: pleasant affect; no hallucinations A/P: #Severe sepsis #Septic arthritis sp debridement POD#0 #Lact acidosis #RA on chronic high dose prednisone therapy #CKD +/- JAGDISH with recent need for HD #Lupus anticoag disorder with Hx VTED on Xarelto #DM2 cb neuropathy/gastroparesis #Super morbid obesity #KIKI on CPAP #Acute on chronic anemia #Hx compartment syndrome of the left lower extremity sp fasciotomy, history of right rotator cuff tear sp tendon repair, OA, BL TKA, chronic back pain on buprenorphine, history of GI bleed, depression with anxiety -SP sepsis fluid bolus; monitor need for NEpi to keep MAP > 65; trend lactic acid level as marker for tissue hypoperfusion given severe sepsis -Cont broad spectrum emp IV Abx; F/U Cx -Cont home dose prednisone but low threshold to bump to stress dose levels if worsening hemodynamics; would also consider adding PJP prophylaxis given doses remain > 15 mg/day -Cont gentle IVF; strict I/Os; follow sCr/lytes -F/U ortho recommendations; PT/OT -Monitor Hgb/PLTs -Pt can bring and use home CPAP qHS PO diet Heparin Guarded prognosis Critical Care Time: 60 min The entirety of this encounter was done via Telemedicine
[2023-10-06] MEDS: 0.9% Normal Saline (1000mL) 1,000 ML 100 ML IV ×2 (10:45→20:35)
[2023-10-06] MEDS: oxyCODONE 5 MG Tablet 10 MG PO (12:11)
--- NOTE | 2023-10-06 13:24 | EX.PCM.CON.S ---
Assessment & Plan Assessment/Plan (1) Encounter for dialysis catheter care: PLAN: Patient is a 52-year-old female who suffered acute renal failure as a complication of antibiotic therapy for staph bacteremia that began in July of this year. Her kidney function appears to have recovered spontaneously to the point that she is no longer requiring dialysis and it has been nearly 2 weeks since her last dialysis session. However, in the interim she has developed a septic joint (right shoulder) and is status post intervention by orthopedic surgery but there is concern for potential translocation to her indwelling catheter. At the time of my evaluation there is no signs of infection. Still, given the virulence of MRSA, patient's history of MRSA bacteremia, and the fact that she is no longer requiring dialysis I agree with the intent to remove this catheter. Further, she has not had her Xarelto for 36 hours and and pulling the catheter today we would minimize the need for interruption of her anticoagulation as orthopedic surgery has approved her for return to anticoagulation as early as tomorrow. Thus, I have extended this recommendation to Mrs. Mo and we will plan to pull the catheter at bedside today. HPI Consult Data Date of Consult: 10/06/23 HPI Narrative Reason for Consultation: Removal of hemodialysis catheter HPI Narrative: RICCARDO VICKERS, is a 52 F who presented to [facility] yesterday, 10/05/2023 due to acute onset of pain and immobility of the right shoulder. She was taken emergently by orthopedic surgery for arthroscopic investigation of the joint and she was confirmed to have septic arthritis with active purulence within the joint space. Aspirate cultures preliminarily show growth of Staph aureus. Patient had a history of cellulitis and staph bacteremia in late July. She was placed on antibiotics for this infection and unfortunately developed acute renal failure. To address her need for urgent dialysis, Dr. Hearn placed a tunneled hemodialysis catheter via a right internal jugular approach on 09/18/2023. Patient states that her last dialysis via this line was 09/24/2023 when she confirms report that there have been plans to have the line removed. [facility] Medical History Anemia Anticoagulant long-term use Anxiety and depression Bilateral lower extremity edema Celiac disease CKD (chronic kidney disease) Compartment syndrome of left lower extremity Diabetes mellitus, type 2 Gastroparesis GERD (gastroesophageal reflux disease) High risk medication use History of pulmonary embolism History of venous thromboembolism Immunocompromised state due to drug therapy Iron deficiency anemia due to chronic blood loss halfway current use of anticoagulant Lupus anticoagulant disorder Morbid obesity MTHFR mutation Obesity KIKI (obstructive sleep apnea) Other complications of skin graft (allograft) (autograft) Pleural effusion, left Pulmonary embolism Rheumatoid arthritis Rheumatoid arthritis RLS (restless legs syndrome) Sinus tachycardia Home Medications bupropion HCl 300 mg 24 hr tablet, extended release 300 mg PO DAILY mental health 08/25/18 [History Last Taken 08/28/23] ropinirole 2 mg tablet,extended release 24 hr 2 mg PO QHS restless legs 08/25/18 [History Last Taken 09/20/22] rivaroxaban 20 mg tablet (Xarelto) 20 mg PO DAILY blood thinner 06/01/22 [History Last Taken 08/27/23] atenolol 50 mg tablet 50 mg PO DAILY HEART 09/21/22 [History Last Taken 08/28/23] biotin 1 ea PO/SL DAILY SUPPLEMENT 09/21/22 [History Last Taken 08/28/23] brexpiprazole 1 mg tablet (Rexulti) 1 mg PO DAILY MENTAL HEALTH 09/21/22 [History Last Taken 08/28/23] buspirone 10 mg tablet 10 mg PO DAILY ANXIETY 09/21/22 [History Last Taken 08/28/23] buspirone 10 mg tablet 20 mg PO QHS ANXIETY 09/21/22 [History Last Taken 08/27/23] fluvoxamine 100 mg tablet 100 mg PO DAILY MENTAL HEALTH 09/21/22 [History Last Taken 08/28/23] pantoprazole 40 mg tablet,delayed release 40 mg PO BID reflux #60 tabs 10/26/22 [Rx Last Taken 08/28/23] sucralfate 1 gram tablet 1 g PO Q6H reflux #120 tabs 10/26/22 [Rx Last Taken 08/28/23] tocilizumab 162 mg/0.9 mL subcutaneous syringe (Actemra) 162 mg subcut .weekly immunosuppressant 03/18/23 [History Last Taken 08/28/23] duloxetine 30 mg capsule,delayed release 30 mg PO DAILY mental health 06/29/23 [History Last Taken 08/28/23] quetiapine 50 mg tablet 50 mg PO QHS sleep 06/29/23 [History Last Taken 08/27/23] semaglutide 0.25 mg or 0.5 mg (2 mg/3 mL) subcutaneous pen injector (Ozempic) 0.5 mg subcut QWEEK diabetes 06/29/23 [History Last Taken Unknown] tizanidine 4 mg tablet 4 mg PO QHS spasms 06/29/23 [History Last Taken Unknown] pramipexole 0.75 mg tablet 0.75 mg PO TID restless leg 08/17/23 [History Last Taken Unknown] acetaminophen 325 mg tablet 1,000 mg (3.0769 x 325 mg) PO Q8H PRN PRN Fever, pain 1-04/30 #0 tabs 08/23/23 [Rx Last Taken 09/14/23] buprenorphine HCl 150 mcg buccal film (Belbuca) 150 mcg buccal Q12H pain relief 3 days #6 ea 08/23/23 [Rx Last Taken Unknown] ferrous sulfate 325 mg (65 mg iron) tablet (FeroSul) 325 mg PO QODAY@1200 anemia #0 tabs 08/23/23 [Rx Last Taken 08/27/23] quetiapine 25 mg tablet 25 mg PO .at bedtime sleep 08/28/23 [History Last Taken 08/27/23] prednisone 20 mg tablet 60 mg (3 x 20 mg) PO BREAKFAST #42 tabs 09/19/23 [Rx Last Taken Unknown] Allergy/AdvReac Type Severity Reaction Status Date / Time adhesive tape AdvReac Rash Verified 10/05/23 19:17 Family History Mother Cancer Lung CA w/ concurrent tobacco use. Heart disease Father No problems noted. Surgical History History of arthroscopy of right shoulder History of fasciotomy History of hysterectomy History of total bilateral knee replacement S/P pericardial window creation Social History household members: family Smoking Status: Never smoker alcohol intake: never substance use type: does not use Physical Exam Const alert Constitutional Narrative: Patient is in some distress from persistent shoulder pain General Appearance: cooperative Chest Chest Narrative: Dressing remains in place over right shoulder with gauze. Patient's right hemodialysis catheter exit site exhibits some mild redness but there is no tenderness about the catheter nor drainage. At the time of initial exam remains secured at the skin using nylon suture and is dressed appropriately with a chlorhexidine line Dressing. Lab / Micro Data 10/06/23 07:07 10/06/23 07:07 Labs: Laboratory Results - last 24 hr 10/05/23 19:40: WBC 15.0 H, RBC 4.59, Hgb 11.1 L, Hct 38.6, MCV 84.1, MCH 24.2 L, MCHC 28.8 L, RDW Std Deviation 67.7 H, RDW Coeff of Chepe 22.4 H, Plt Count 410, MPV 10.1, Immature Gran % (Auto) 0.500, Neut % (Auto) 78.2 H, Lymph % (Auto) 11.6 L, [place] % (Auto) 8.6, Eos % (Auto) 0.9, Baso % (Auto) 0.2, Absolute Neuts (auto) 11.7 H, Absolute Lymphs (auto) 1.74, Nucleated RBC % 0, Platelet Estimate ADEQUATE, Anisocytosis 1+, ESR 86 H, Sodium 136, Potassium 4.7, Chloride 102, Carbon Dioxide 27.0, Anion Gap 7, BUN 28 H, Creatinine 1.55 H, Estim Creat Clear Calc 63.61, Est GFR (MDRD) Af Amer 45 L, Est GFR (MDRD) Non-Af 37 L, BUN/Creatinine Ratio 18.1, Glucose 110 H, Lactic Acid 3.1 H*, Calcium 10.1, Total Bilirubin 0.50, AST 20, ALT 25, Alkaline Phosphatase 120 H, C-React Prot Ext Range 79.00 H, Total Protein 7.8, Albumin 3.1 L, Globulin 4.7 H, Albumin/Globulin Ratio 0.7 L 10/05/23 20:38: Urine Color Yellow, Urine Clarity Clear, Urine pH 5.0, Ur Specific [place] 1.010, Urine Protein 30 H, Urine Glucose (UA) Normal, Urine Ketones 5 H, Urine Occult Blood 250 H, Urine Nitrite Negative, Urine Bilirubin 1 H, Urine Urobilinogen Normal, Ur Leukocyte Esterase 25 H, Urine RBC 0-5 SEEN, Urine WBC 0-5 SEEN, Ur Squamous Epith Cells 0 SEEN, Urine Bacteria RARE, Urine Mucus 0 SEEN 10/05/23 21:44: Fluid Crystals NO CRYSTALS SEEN, Fluid Crystal Source SYNOVIAL, Fl Crystal Path Review Will follow, Synovial Source RIGHT SHOULDER, Synovial Color Yellow, Synovial Appearance Turbid, Synovial WBC 190.3800 H, Synovial RBC 0.040 H, Synovial Tot Cell Ct 190.6500 H, Synov Polynuclear WBCs 174.000, Synov Mononuclear WBCs 16.380, Synovial Neutrophils 92 H, Synovial Monocytes 8, Synovial Polynuclear % 91.3, Synovial Mononuclear % 8.7, Synovial Path Comment May follow 10/05/23 23:20: Blood Type O POSITIVE, Antibody Screen NEGATIVE 10/05/23 23:45: Lactic Acid 2.6 H* 10/06/23 07:07: WBC 14.1 H, RBC 3.58 L, Hgb 9.0 L, Hct 30.0 L, MCV 83.8, MCH 25.1 L, MCHC 30.0 L, RDW Std Deviation 68.1 H, RDW Coeff of [place]pe 22.2 H, Plt Count 287, MPV 9.9, Immature Gran % (Auto) 0.400, Neut % (Auto) 71.8 H, Lymph % (Auto) 15.9 L, [place] % (Auto) 10.3 H, Eos % (Auto) 1.5, Baso % (Auto) 0.1, Absolute Neuts (auto) 10.1 H, Absolute Lymphs (auto) 2.24, Nucleated RBC % 0, Sodium 136, Potassium 4.6, Chloride 108 H, Carbon Dioxide 20.0 L, Anion Gap 8, BUN 26 H, Creatinine 1.60 H, Estim Creat Clear Calc 61.88, Est GFR (MDRD) Af Amer 43 L, Est GFR (MDRD) Non-Af 36 L, BUN/Creatinine Ratio 16.2, Glucose 128 H, Lactic Acid 2.6 H*, Calcium 8.1 L Micro: Microbiology 10/05/23 21:44 Fluid - Synovial (joint) Gram Stain - Final 10/05/23 21:44 Fluid - Synovial (joint) Body Fluid Culture - Preliminary Staphylococcus aureus 10/05/23 21:10 Blood Culture (Wb) - Anticubital Right Blood Culture - Preliminary 10/05/23 21:45 Blood Culture (Wb) - Anticubital Right Blood Culture - Preliminary Imaging Radiology Impression Shoulder X-Ray 10/05/23 20:30 IMPRESSION: 1. No acute fracture or dislocation. 2. Moderate acromioclavicular joint arthrosis. Electronically Signed: Bry Arteaga MD at 21:15 EDT , Shoulder X-Ray 10/05/23 21:00 IMPRESSION: 1. No acute fracture or dislocation. 2. Moderate acromioclavicular joint arthrosis. Electronically Signed: Bry Arteaga MD at 21:16 EDT , Charges/Coding Visit Charges Inpatient E&M: 56621 Init Hosp L2
--- NOTE | 2023-10-06 13:34 | NURSING ---
1334 Dr. Chisholm present in pt room, prep/consent completed. begin tunnelled dialysis cath removal 1335 HR 115 R 13 BP 126/87 SpO2 99 RA 1340 HR 116 R 16 Bp 130/75 SpO2 94 1345 HR 117 R 18 BP 132/79 SpO2 96 1350 HR 114 R 15 BP 121/75 SpO2 97 completed. dsd applied, 1 stitch present
[2023-10-06] MEDS: Lidocaine 1% (20 ml mdv) 20 ML Vial INFILT (13:35)
[2023-10-06 13:52] LABS: Lactic Acid 3.3 mmol/L (0.4-1.9)
--- NOTE | 2023-10-06 13:54 | PCM.OP.PRO ---
Procedure Report Date of Procedure: 10/06/23 Procedure: Right internal jugular hemodialysis catheter removal Indication: Completion of hemodialysis with no further clinical need for durable central venous access Procedure detail: After describing the procedure and obtaining the patient's written consent, the patient was placed supine in her bed. Her line dressings were taken down and the catheter site and its tunnel were prepped with chlorhexidine. A timeout was conducted to confirm patient and the procedure. Procedure was begun by raising a wheal of local anesthetic along the patient's tunneled catheter with 8 mL 1% lidocaine. Once anesthetized, the catheter exit site from the subcutaneous tunnel was bluntly opened. Gentle traction was placed on the catheter and it was found to slide. With this observation, gentle traction was applied to the catheter and this time it was easily withdrawn from the tract. Manual pressure was maintained for a period of 3 minutes. After this time, the tunneling exit site was examined for hemostasis. Finding this intact, the site was closed with a single interrupted 2-0 nylon suture. Then the area was covered with a clean gauze and taped into place. Patient was advised to have the suture removed no sooner than 7 days. Estimated blood loss: 1 mL Complications: None Procedures Cardiovascular CF Procedures [id number]: Other Procedure See Report (CPT 71743 removal of tunneled CV cath without subcu port)
[2023-10-06] MEDS: Acetaminophen 500 MG Tablet 1000 MG PO ×2 (14:30→22:59)
[2023-10-06] MEDS: LORazepam 1 MG Tablet PO (16:32)
[2023-10-06] MEDS: DULoxetine Hcl 30 MG Capsule PO (16:33)
[2023-10-06] MEDS: buPROPion (XL) 300 MG TABLET.XL PO (16:35)
[2023-10-06] MEDS: Sucralfate 1 GM Tablet PO ×2 (17:03→22:57)
[2023-10-06 17:06] LABS: Reflex Lactate? Y
--- NOTE | 2023-10-06 17:18 | PCM.PN.HOSP ---
Reason for Visit Reason for Visit: Diagnoses Sepsis, unspecified organism (10/06/23) Type 2 diabetes mellitus without complications (10/06/23) Morbid (severe) obesity due to excess calories (10/06/23) Arthritis due to other bacteria, right shoulder (10/06/23) Pyogenic arthritis, unspecified (10/06/23) End stage renal disease (10/06/23) Severe sepsis without septic shock (10/06/23) Encounter for fitting and adjustment of extracorporeal dialysis catheter (10/06/23) Dependence on renal dialysis (10/06/23) Subjective Subjective Patient was seen and examined today, I have ordered her home medications with some adjustments, I talked with orthopedic surgery about her care, I will repeat her blood cultures tomorrow, it is likely that she will need a PICC line but until the blood cultures are negative I have chosen not to have one inserted. Infectious diseases will be consulted to see the patient, she is growing gram-positive cocci in the blood and Staph aureus from the wound culture, PCR was not done on the wound culture so I am not sure if it is MSSA or MRSA. Objective Data Objective Data Vital Signs: Vital Signs Temp Pulse Resp BP Pulse Ox O2 Del Method 98.9 F 112 H 16 115/69 100 Room Air 10/06/23 12:00 10/06/23 14:00 10/06/23 14:00 10/06/23 14:00 10/06/23 14:00 10/06/23 14:00 Oxygen Delivery Method Room Air Weight: 149.3 kg Body Mass Index (BMI) 53.1 Intake & Output: Intake and Output for Last 24 Hours 10/04/23 10/05/23 10/06/23 23:59 23:59 23:59 Intake Total 6476.75 / 6476.75 Output Total 1850 / 1850 Balance 4626.75 / 4626.75 Medical Nutrition Assessment Dietitian: Malnutrition Criteria Met Start: 10/06/23 15:49 Freq: Status: Active Protocol: Document 10/06/23 15:49 AG (Rec: 10/06/23 15:49 AG [id number]) Nutrition Malnutrition Evidence of Malnutrition Exists Yes Malnutrition (moderate): Acute Illness/Injury Evidenced By Suboptimal Energy Intake ( Moderate),Weight Loss (Severe) Clinical Problem Acute Disease or Injury Related Malnutrition Etiology moderate, acute malnutrition related to inadequate energy intake d/t decreased appetite, recent hospitalizations Signs/Symptoms as evidenced by unintentional 12% wt loss < 1 month, estimated PO intake meeting < 75% of estimated energy needs x 1 month Status Active Problem Recommendation Dietitian Recommendations/Changes Continue cardiac, 1800 calorie controlled diet as tolerated; pt refusing ONS. May need to consider liberalizing diet if PO intake fails to improve and wt loss continues Lab / Micro Data 10/06/23 07:07 10/06/23 07:07 Labs: Laboratory Results - last 24 hr 10/05/23 19:40: WBC 15.0 H, RBC 4.59, Hgb 11.1 L, Hct 38.6, MCV 84.1, MCH 24.2 L, MCHC 28.8 L, RDW Std Deviation 67.7 H, RDW Coeff of Chepe 22.4 H, Plt Count 410, MPV 10.1, Immature Gran % (Auto) 0.500, Neut % (Auto) 78.2 H, Lymph % (Auto) 11.6 L, [place] % (Auto) 8.6, Eos % (Auto) 0.9, Baso % (Auto) 0.2, Absolute Neuts (auto) 11.7 H, Absolute Lymphs (auto) 1.74, Nucleated RBC % 0, Platelet Estimate ADEQUATE, Anisocytosis 1+, ESR 86 H, Sodium 136, Potassium 4.7, Chloride 102, Carbon Dioxide 27.0, Anion Gap 7, BUN 28 H, Creatinine 1.55 H, Estim Creat Clear Calc 63.61, Est GFR (MDRD) Af Amer 45 L, Est GFR (MDRD) Non-Af 37 L, BUN/Creatinine Ratio 18.1, Glucose 110 H, Lactic Acid 3.1 H*, Calcium 10.1, Total Bilirubin 0.50, AST 20, ALT 25, Alkaline Phosphatase 120 H, C-React Prot Ext Range 79.00 H, Total Protein 7.8, Albumin 3.1 L, Globulin 4.7 H, Albumin/Globulin Ratio 0.7 L 10/05/23 20:38: Urine Color Yellow, Urine Clarity Clear, Urine pH 5.0, Ur Specific [place] 1.010, Urine Protein 30 H, Urine Glucose (UA) Normal, Urine Ketones 5 H, Urine Occult Blood 250 H, Urine Nitrite Negative, Urine Bilirubin 1 H, Urine Urobilinogen Normal, Ur Leukocyte Esterase 25 H, Urine RBC 0-5 SEEN, Urine WBC 0-5 SEEN, Ur Squamous Epith Cells 0 SEEN, Urine Bacteria RARE, Urine Mucus 0 SEEN 10/05/23 21:44: Fluid Crystals NO CRYSTALS SEEN, Fluid Crystal Source SYNOVIAL, Fl Crystal Path Review Will follow, Synovial Source RIGHT SHOULDER, Synovial Color Yellow, Synovial Appearance Turbid, Synovial WBC 190.3800 H, Synovial RBC 0.040 H, Synovial Tot Cell Ct 190.6500 H, Synov Polynuclear WBCs 174.000, Synov Mononuclear WBCs 16.380, Synovial Neutrophils 92 H, Synovial Monocytes 8, Synovial Polynuclear % 91.3, Synovial Mononuclear % 8.7, Synovial Path Comment May follow 10/05/23 23:20: Blood Type O POSITIVE, Antibody Screen NEGATIVE 10/05/23 23:45: Lactic Acid 2.6 H* 10/06/23 07:07: WBC 14.1 H, RBC 3.58 L, Hgb 9.0 L, Hct 30.0 L, MCV 83.8, MCH 25.1 L, MCHC 30.0 L, RDW Std Deviation 68.1 H, RDW Coeff of Chepe 22.2 H, Plt Count 287, MPV 9.9, Immature Gran % (Auto) 0.400, Neut % (Auto) 71.8 H, Lymph % (Auto) 15.9 L, [place] % (Auto) 10.3 H, Eos % (Auto) 1.5, Baso % (Auto) 0.1, Absolute Neuts (auto) 10.1 H, Absolute Lymphs (auto) 2.24, Nucleated RBC % 0, Sodium 136, Potassium 4.6, Chloride 108 H, Carbon Dioxide 20.0 L, Anion Gap 8, BUN 26 H, Creatinine 1.60 H, Estim Creat Clear Calc 61.88, Est GFR (MDRD) Af Amer 43 L, Est GFR (MDRD) Non-Af 36 L, BUN/Creatinine Ratio 16.2, Glucose 128 H, Lactic Acid 2.6 H*, Calcium 8.1 L 10/06/23 13:00: Lactic Acid 3.3 H* Micro: Microbiology 10/05/23 21:10 Blood Culture (Wb) - Anticubital Right Blood Culture - Preliminary 10/05/23 21:45 Blood Culture (Wb) - Anticubital Right Blood Culture - Preliminary 10/05/23 21:44 Fluid - Synovial (joint) Gram Stain - Final 10/05/23 21:44 Fluid - Synovial (joint) Body Fluid Culture - Preliminary Staphylococcus aureus Radiography Diagnostic Testing: Radiology Impression Shoulder X-Ray 10/05/23 20:30 IMPRESSION: 1. No acute fracture or dislocation. 2. Moderate acromioclavicular joint arthrosis. Electronically Signed: Bry Arteaga MD at 21:15 EDT Reading Location ID and State: [id number] / [employer] , Service support , Shoulder X-Ray 10/05/23 21:00 IMPRESSION: 1. No acute fracture or dislocation. 2. Moderate acromioclavicular joint arthrosis. Electronically Signed: Bry Arteaga MD at 21:16 EDT Reading Location ID and State: [id number] / [employer] , Service support , Physical Exam Const alert, oriented x3 and no apparent distress Constitutional Narrative: Patient is morbidly obese General Appearance: cooperative, well kempt and well developed Orientation / Consciousness: awake, oriented to person, oriented to place and oriented to time HEENT normocephalic, head/scalp atraumatic and moist oral mucous membranes Eyes PERRL, EOMs intact bilaterally and conjunctivae normal Neck supple, no JVD, thyroid normal and no carotid bruits General: trachea midline Resp normal respiratory effort, no retractions, no use of accessory muscles and clear to auscultation bilaterally Auscultation: Negative for rales, rhonchi or wheezes Cardio regular rate, regular rhythm, no murmurs, no rub and no gallops GI normal to inspection, nondistended, normoactive bowel sounds, soft to palpation, non-tender and non-distended Extremity no clubbing, cyanosis or edema Neuro oriented x3, CN's II-XII intact bilaterally, moves all extremities, no focal motor deficits and no sensory deficits noted Sensorium / Orientation: awake, alert, oriented to person, oriented to place and oriented to time Speech: speech normal Psych affect normal Assessment & Plan Assessment/Plan (1) Sepsis: QUALIFIERS: Sepsis type: sepsis due to unspecified organism Sepsis acute organ dysfunction status: without acute organ dysfunction Qualified Code(s): A41.9 - Sepsis, unspecified organism PLAN: Plan 1. Sepsis secondary to Staph aureus from septic right shoulder-patient will remain on Zyvox and Zosyn for now, I will have infectious diseases see the patient tomorrow, blood cultures will be repeated in the morning, I have chosen to discontinue her tunneled dialysis catheter, surgery was consulted today to remove the tunneled dialysis catheter. I did discuss this with nephrology and they do not feel she needs to catheter anymore. Postop day 0 complete arthroscopic synovectomy of the right shoulder. #2 septic right shoulder from Staph aureus-again patient will remain on Zyvox and Zosyn #3 chronic depression-patient's medications were ordered #4 rheumatoid arthritis-complicates care, medical course, recovery, and prognosis #5 morbid obesity-complicates care, medical course, recovery, and prognosis #5 type 2 diabetes-patient's blood sugars will be monitored, sliding scale insulin was ordered if needed #6 acute kidney injury-patient's creatinine was 1.6 today, labs will be monitored daily Total clinical time spent by myself addressing the patient's medical issues, reviewing all of her data, and collaborating with patient's care team: 50 minutes Charges/Coding Visit Charges Inpatient E&M: [id number] [facility] L3
[2023-10-06 17:30] LABS: Bedside Glucose 126 mg/dL (74-106)
--- NOTE | 2023-10-06 17:31 | PN.ORTHO_ITS ---
Subjective Subjective Patient's right shoulder pain improved today. She is able to tolerate passive range of motion. Patient has positive gram-positive cocci on blood cultures. Patient has staph from aspiration done yesterday in the emergency department the right shoulder. Unfortunately however, patient now presents with progressive left shoulder pain. She is unable to move the left shoulder without severe pain. Patient is currently on Zyvox and Zosyn. We are awaiting ID consultation/recommendations. Objective Data Objective Data Vital Signs: Vital Signs Temp Pulse Resp BP Pulse Ox O2 Del Method 98.9 F 112 H 16 115/69 100 Room Air 10/06/23 12:00 10/06/23 14:00 10/06/23 14:00 10/06/23 14:00 10/06/23 14:00 10/06/23 14:00 Oxygen Delivery Method Room Air Weight: 329 lb 2.402 oz Body Mass Index (BMI) 53.1 Intake & Output: Intake and Output for Last 24 Hours 10/04/23 10/05/23 10/06/23 23:59 23:59 23:59 Intake Total 6476.75 / 6476.75 Output Total 1850 / 1850 Balance 4626.75 / 4626.75 Medical Nutrition Assessment Dietitian: Malnutrition Criteria Met Start: 10/06/23 15:49 Freq: Status: Active Protocol: Document 10/06/23 15:49 AG (Rec: 10/06/23 15:49 [id number]) Nutrition Malnutrition Evidence of Malnutrition Exists Yes Malnutrition (moderate): Acute Illness/Injury Evidenced By Suboptimal Energy Intake ( Moderate),Weight Loss (Severe) Clinical Problem Acute Disease or Injury Related Malnutrition Etiology moderate, acute malnutrition related to inadequate energy intake d/t decreased appetite, recent hospitalizations Signs/Symptoms as evidenced by unintentional 12% wt loss < 1 month, estimated PO intake meeting < 75% of estimated energy needs x 1 month Status Active Problem Recommendation Dietitian Recommendations/Changes Continue cardiac, 1800 calorie controlled diet as tolerated; pt refusing ONS. May need to consider liberalizing diet if PO intake fails to improve and wt loss continues Lab / Micro Data 10/06/23 07:07 10/06/23 07:07 Labs: Laboratory Results - last 24 hr 10/05/23 19:40: WBC 15.0 H, RBC 4.59, Hgb 11.1 L, Hct 38.6, MCV 84.1, MCH 24.2 L , MCHC 28.8 L, RDW Std Deviation 67.7 H, RDW Coeff of [place]pe 22.4 H, Plt Count 410, MPV 10.1, Immature Gran % (Auto) 0.500, Neut % (Auto) 78.2 H, Lymph % (Auto) 11.6 L, [place] % (Auto) 8.6, Eos % (Auto) 0.9, Baso % (Auto) 0.2, Absolute Neuts (auto) 11.7 H, Absolute Lymphs (auto) 1.74, Nucleated RBC % 0, Platelet Estimate ADEQUATE, Anisocytosis 1+, ESR 86 H, Sodium 136, Potassium 4.7, Chloride 102, Carbon Dioxide 27.0, Anion Gap 7, BUN 28 H, Creatinine 1.55 H, Estim Creat Clear Calc 63.61, Est GFR (MDRD) Af Amer 45 L, Est GFR (MDRD) Non-Af 37 L, BUN/Creatinine Ratio 18.1, Glucose 110 H, Lactic Acid 3.1 H*, Calcium 10.1, Total Bilirubin 0.50, AST 20, ALT 25, Alkaline Phosphatase 120 H, C-React Prot Ext Range 79.00 H, Total Protein 7.8, Albumin 3.1 L, Globulin 4.7 H, Albumin/Globulin Ratio 0.7 L 10/05/23 20:38: Urine Color Yellow, Urine Clarity Clear, Urine pH 5.0, Ur Spec ific [place] 1.010, Urine Protein 30 H, Urine Glucose (UA) Normal, Urine Ketones 5 H, Urine Occult Blood 250 H, Urine Nitrite Negative, Urine Bilirubin 1 H, Urine Urobilinogen Normal, Ur Leukocyte Esterase 25 H, Urine RBC 0-5 SEEN, Urine WBC 0-5 SEEN, Ur Squamous Epith Cells 0 SEEN, Urine Bacteria RARE, Urine Mucus 0 SEEN 10/05/23 21:44: Fluid Crystals NO CRYSTALS SEEN, Fluid Crystal Source SYNOVIAL, Fl Crystal Path Review Will follow, Synovial Source RIGHT SHOULDER, Synovial Color Yellow, Synovial Appearance Turbid, Synovial WBC 190.3800 H, Synovial RBC 0.040 H, Synovial Tot Cell Ct 190.6500 H, Synov Polynuclear WBCs 174.000, Synov Mononuclear WBCs 16.380, Synovial Neutrophils 92 H, Synovial Monocytes 8, Synovial Polynuclear % 91.3, Synovial Mononuclear % 8.7, Synovial Path Comment May follow 10/05/23 23:20: Blood Type O POSITIVE, Antibody Screen NEGATIVE 10/05/23 23:45: Lactic Acid 2.6 H* 10/06/23 07:07: WBC 14.1 H, RBC 3.58 L, Hgb 9.0 L, Hct 30.0 L, MCV 83.8, MCH 25.1 L, MCHC 30.0 L, RDW Std Deviation 68.1 H, RDW Coeff of [place]pe 22.2 H, Plt Count 287, MPV 9.9, Immature Gran % (Auto) 0.400, Neut % (Auto) 71.8 H, Lymph % (Auto) 15.9 L, [place] % (Auto) 10.3 H, Eos % (Auto) 1.5, Baso % (Auto) 0.1, Ab solute Neuts (auto) 10.1 H, Absolute Lymphs (auto) 2.24, Nucleated RBC % 0, Sodium 136, Potassium 4.6, Chloride 108 H, Carbon Dioxide 20.0 L, Anion Gap 8, BUN 26 H, Creatinine 1.60 H, Estim Creat Clear Calc 61.88, Est GFR (MDRD) Af Amer 43 L, Est GFR (MDRD) Non-Af 36 L, BUN/Creatinine Ratio 16.2, Glucose 128 H, Lactic Acid 2.6 H*, Calcium 8.1 L 10/06/23 13:00: Lactic Acid 3.3 H* 10/06/23 17:01: POC Glucose 126 H Micro: Microbiology 10/05/23 21:45 Blood Culture (Wb) - Anticubital Right Bacteria Detection (PCR) - Preliminary Staphylococcus aureus 10/05/23 21:45 Blood Culture (Wb) - Anticubital Right Blood Culture - Preliminary 10/05/23 21:10 Blood Culture (Wb) - Anticubital Right Blood Culture - Preliminary 10/05/23 21:44 Fluid - Synovial (joint) Gram Stain - Final 10/05/23 21:44 Fluid - Synovial (joint) Body Fluid Culture - Preliminary Staphylococcus aureus Radiography Diagnostic Testing: Radiology Impression Shoulder X-Ray 10/05/23 20:30 IMPRESSION: 1. No acute fracture or dislocation. 2. Moderate acromioclavicular joint arthrosis. Electronically Signed: Bry Arteaga MD at 21:15 EDT Reading Location ID and State: [id number] / [employer] Tel , Service support , Shoulder X-Ray 10/05/23 21:00 IMPRESSION: 1. No acute fracture or dislocation. 2. Moderate acromioclavicular joint arthrosis. Electronically Signed: Bry Arteaga MD at 21:16 EDT , Physical Exam Const alert and oriented x3 General Appearance: cooperative Extremity Extremity Narrative: Right upper extremity: Shoulder now tolerates passive range of motion. Dressi ngs are clean dry and intact. Neurovascular intact distally. Left upper extremity: Patient has pain with passive range of motion. Shoulder is swollen with increased warmth to palpation. Assessment & Plan Assessment/Plan (1) Septic arthritis of shoulder, right: PLAN: Postop day 1 arthroscopic irrigation debridement complete synovectomy right shoulder. 1. Antibiotics: Per primary service awaiting infectious disease consultation 2. Therapy: Nonweightbearing right upper extremity okay for passive and active range of motion and strengthening against gravity as tolerated. Sling as needed. 3. Surgical wound looks appropriate remove dressing on postop day 3 4. Patient has gram-positive cocci in blood cultures today. Port was removed. Will likely need PICC line (2) Left shoulder pain: PLAN: Patient's right shoulder pain is progress significantly over the last 24 hours. Last evening patient notes that she did have some soreness however she is unable to move her arm with any passive motion today. Natural history of the disease process and treatment options were discussed the patient. Recommended at this time that we go ahead with aspiration of the left shoulder. See procedure below. We were able to obtain 2 cc of purulent fluid from the left shoulder. Based on this, I recommended acute emergent return to the operating room for irrigation debridement, synovectomy and diagnostic arthroscopy of the left shoulder. Risk and benefits of the procedure were discussed the patient including but limited to blood loss, DVTs, PEs, nervous damage to infection, risk of anesthesia including loss of life. Patient did have some crackers and water with her pills at 5:00. Will discuss with anesthesia appropriateness of surgical timing. Would like to proceed with surgery this evening. Based on discussions with anesthesia we would like to proceed with surgery at 9:00 this evening. Patient has a lack of previous shoulder pathology and has minimal degenerative changes noted on her left shoulder x-rays. Procedure: Posterior left shoulder aspiration. Posterior portal was palpated and marked out. 18-gauge spinal needle was used to aspirate the joint after sterilely prepping the area with alcohol swabs. 2 cc of purulent cloudy fluid were removed from the joint. Fluid will be sent for cell count and culture analysis.
--- NOTE | 2023-10-06 17:47 | PCM.HOSP.N ---
Hospitalist Note Additional notation: I talked with Dr. Buchanan concerning the patient's left shoulder, he feels that her left shoulder is also septic and he plans on take the patient to the OR tonight.
[2023-10-06 18:32] LABS: Lactic Acid 2.1 mmol/L (0.4-1.9)
[2023-10-06 19:28] LABS: Appearance /Synovial Fluid Turbid (CLEAR); Color / Synovial Fluid Pink (Pale Yellow); Source / Synovial Fluid LEFT SHOULDER
[2023-10-06 19:33] LABS: Lymph 12 %; Neutrophil 88 % (0-25)
[2023-10-06 19:39] LABS: Body Fluid QC Type(s) BF1Q
[2023-10-06 20:41] LABS: International Normalized Ratio 1.8; Prothrombin Time (Protime)PT. 20.7 SECONDS (11.7-14.9)
[2023-10-06 20:42] LABS: Partial Thromboplast Time 39.8 Seconds (24.1-36.2)
--- NOTE | 2023-10-06 20:50 | NURSING ---
Patient taken from floor to surgery by OUTBOUND SALES CONSULTANT
--- NOTE | 2023-10-06 21:50 | ECHOL_ITS ---
Reason For Study: OTHER Procedure This was a limited 2D transthoracic echocardiogram. Technically difficult study due to body habitus and recent shoulder surgery. Apical windows unavailable due to patient being unable to lift left arm. Exam performed portable in patient room. Left Ventricle Normal LV size. D shaped septum in diastole. Moderate concentric left ventricular hypertrophy. Left ventricular systolic function is lower limits of normal. Septal bounce. The left ventricular ejection fraction is 50 %. Right Ventricle Mildly dilated right ventricle. Normal systolic function. Mitral Valve Normal mitral valve. Mild (1+) eccentric mitral valve insufficiency. Pericardium/Pleural No pericardial effusion. MMode/2D Measurements & Calculations LVIDd: 4.2 cm IVSd: 1.4 cm LVIDs: 3.4 cm LVPWd: 1.4 cm FS: 19.7 % ECHO/Echo, Limited Study Interpretation Summary Normal LV size. Left ventricular systolic function is lower limits of normal. Septal bounce. The left ventricular ejection fraction is 50 %. Moderate concentric left ventricular hypertrophy. Mildly dilated right ventricle. Mild (1+) eccentric mitral valve insufficiency. Ordering Physician: Jesús Carrero Referring Physician: KOKO FANG Performed By: Milla Swenson RCS
--- NOTE | 2023-10-06 21:51 | PCM.OPRPT ---
Problems Associated Problem List Diagnoses (1) Septic arthritis of shoulder, right: (2) Sepsis: Report of Operation Date of Procedure: 10/06/23 Pre-Operative Diagnosis: Left [place] shoulder septic arthritis Post-Operative Diagnosis: Left [place] shoulder septic arthritis Left rotator cuff tendon tear Surgery/Procedure Performed:: Diagnostic arthroscopy left shoulder with irrigation debridement Left shoulder complete arthroscopic synovectomy Description of Surgical Findings:: Patient had gross purulence upon entrance into the joint. This fluid was collected and sent for specimen due to previous inadequate specimen for aspiration results. Patient had anterior lateral complete rotator cuff tendon tear Surgeon: Abhishek Buchanan manager outreach: Adilene Andino Type of Anesthesia: General Anesthesiologist: Leland Dominique Special Medications: Patient receiving antibiotics on the floor Specimen's removed: Aspirate sent for cell count Estimated Blood Loss (mL): 25 Fluids Replaced: 250 mL crystalloid Description of Procedure: On the date of the procedure patient was seen and evaluated in the preoperative area. Risks and benefits of the procedure were discussed the patient as noted in the consultation. Patient had evidence consistent with left shoulder septic arthritis. Patient was then consented for surgery and the left upper extremity was marked after agreeing upon this is the appropriate joint. Patient was then taken back to the operating room and transferred to the table in the supine position. Upon transfer to the table anesthesia obtained controlled the C-spine and airway and remained controlled throughout the remainder of the procedure. After appropriately anesthetized the patient patient's head was placed in the beachchair position head bone grinder and turned to the contralateral side. Patient was then placed up in the beachchair position and secured to the bed. The left upper extremity was then prepped in a sterile fashion while the surgeon scrubbed. Upon reentering the room the left upper extremity was draped in a standard orthopedic fashion. Incisions were marked out using previous anterior and posterior portals. Anterior portal was marked out medial to the coracoid process. Everyone agreed upon the side, the site, the procedure to be performed, patient's identity and antibiotics given. At this time we palpated the acromion to confirm posterior portal. Incision was made with a 11 blade scalpel. Trocar was placed into the joint. Copious amounts of purulent fluid came from the joint. Camera was placed in the joint. We were able to visualize the joint. Once we are able to visualize joint we able to explore. Patient has significant synovitis. He had minimal chondromalacia on the glenoid and humeral head and when looking superiorly patient appeared to have a large anterior rotator cuff tendon tear leading us left into the subacromial space. Using the drive-through method we made the anterior portal incision we are able to palpate and verify it was appropriate. Knife was then used to incise the skin and the trocar was placed into the joint. Finally the shaver was placed in the joint. Shaver was used to do a complete synovectomy and then 6 L of normal saline were irrigated throughout the wound. Due to the patient's body habitus we also elected at the lateral portal and worked through the patient's anterior to get send here to complete the synovectomy. Once the 6 L were irrigated throughout the wound and again visualized the joint noted that appropriate synovectomy had been performed and the shaver was removed. Once the shaver was removed the camera was then removed and the wounds were closed using nylon suture. Xeroform dressing was placed. Sterile dressing was placed. Patient was placed in a sling and awakened by anesthesia. Postop plan: Patient be nonweightbearing for the next 2 weeks. Will allow shoulder for rest, she will be allowed physical therapy for active and passive range of motion as well as strengthening against gravity. She will start physical therapy at her 2-week postoperative visit. Patient to follow-up in the office in 2 weeks. Patient can resume her Xarelto tomorrow. Antibiotics per primary service and infectious disease consult is recommended to on this patient. Complications no intraoperative complications were encountered Admit VTE Documentation VTE Present on Admission: Yes VTE Mechan Device Prophylaxis: SCD's VTE Pharm Prophylaxis ordered?: Yes
[2023-10-06 22:42] LABS: Bedside Glucose 97 mg/dL (74-106)
--- NOTE | 2023-10-06 22:50 | NURSING ---
pt arrived back to floor from surgery
[2023-10-06] MEDS: QUEtiapine 25 MG Tablet 75 MG PO (22:57)
[2023-10-06] MEDS: tiZANidine HCl 2 MG Tablet 4 MG PO (22:57)
[2023-10-06] MEDS: Pantoprazole Sodium 40 MG Tablet PO (22:58)
[2023-10-06] MEDS: busPIRone 5 MG Tablet 20 MG PO (22:58)
[2023-10-06] MEDS: Pramipexole Di-HCl 1 MG Tablet PO (22:58)
[2023-10-06 23:00] LABS: RBC /Synovial Fluid 0.036 10^6/uL (0); Synovial Fld Mononuclear WBC % 4.9 %; Synovial Fld Polynuclear WBC # 59.879 10^3/uL; Synovial Fld Polynuclear WBC % 95.1 %
[2023-10-06] MEDS: Pramipexole Di-HCl 0.5 MG Tablet PO (23:02)
[2023-10-07 00:25] LABS: Lymph 7 %; Neutrophil 93 % (0-25)
[2023-10-07 00:26] LABS: Body Fluid QC Type(s) BF1QC
[2023-10-07 01:09] VITALS: BP 126/72; PULSE 130; RESP 18; TEMP 36.8; O2SAT 95
[2023-10-07 02:48] VITALS: BMI 55.3
[2023-10-07 03:00] VITALS: BP 125/70; PULSE 128; RESP 18; TEMP 36.8; O2SAT 93
[2023-10-07 06:14] VITALS: PULSE 119
[2023-10-07 06:27] LABS: Appearance /Synovial Fluid Sl Cl (CLEAR); Color / Synovial Fluid Red (Pale Yellow)
[2023-10-07] MEDS: Piperacil/Tazobactam 3.375 GM in 0.9% Normal Saline (50mL MB+) 50 ML IV (06:37)
[2023-10-07] MEDS: Acetaminophen 500 MG Tablet 1000 MG PO ×3 (06:38→21:32)
[2023-10-07] MEDS: Sucralfate 1 GM Tablet PO ×4 (06:38→21:30)
--- NOTE | 2023-10-07 06:58 | PCM.PN.ORT ---
Subjective Subjective The patient was sitting in bed upon examination sleeping. Patient denies any chest pain, shortness of breath, dizziness, lightheadedness, nausea or vomiting, or calf pain. Pain is controlled on medications. No adverse overnight events. Patient late last night underwent a left shoulder irrigation and debridement by Dr. Abhishek Buchanan. Patient is resting comfortably this morning. She states she has some soreness in bilateral shoulders. Patient is right-hand dominant. She has had previous surgery on the right shoulder with rotator cuff repair. 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 She denies past history of surgery on the left shoulder. She currently denies any numbness and tingling in the bilateral upper extremities. We are waiting infectious disease consultation due to the underlying infection. Patient had positive blood cultures and positive aspiration on the right shoulder with Staphylococcus aureus. Dr. Abhishek Buchanan did aspirate the left shoulder yesterday and awaiting cultures. Objective Data Objective Data Vital Signs: Vital Signs Temp Pulse Resp BP Pulse Ox O2 Del Method O2 Flow Rate 98.3 F 119 H 18 125/70 H 93 Room Air 8 10/07/23 03:00 10/07/23 06:14 10/07/23 03:00 10/07/23 03:00 10/07/23 03:00 10/07/23 03:00 10/06/23 22:15 Oxygen Flow Rate (L/min) 8 Oxygen Delivery Method Room Air Weight: 155.4 kg Body Mass Index (BMI) 55.3 Intake & Output: Intake and Output for Last 24 Hours 10/05/23 10/06/23 10/07/23 23:59 23:59 23:59 Intake Total 6921.75 / 6921.75 350 / 350 Output Total 0 / 2350 700 / 700 Balance 4871.75 / 4571.75 -350 / -350 Medical Nutrition Assessment Dietitian: Malnutrition Criteria Met Start: 10/06/23 15:49 Freq: Status: Active Protocol: Document 10/06/23 15:49 AG (Rec: 10/06/23 15:49 [id number]) Nutrition Malnutrition Evidence of Malnutrition Exists Yes Malnutrition (moderate): Acute Illness/Injury Evidenced By Suboptimal Energy Intake ( Moderate),Weight Loss (Severe) Clinical Problem Acute Disease or Injury Related Malnutrition Etiology moderate, acute malnutrition related to inadequate energy intake d/t decreased appetite, recent hospitalizations Signs/Symptoms as evidenced by unintentional 12% wt loss < 1 month, estimated PO intake meeting < 75% of estimated energy needs x 1 month Status Active Problem Recommendation Dietitian Recommendations/Changes Continue cardiac, 1800 calorie controlled diet as tolerated; pt refusing ONS. May need to consider liberalizing diet if PO intake fails to improve and wt loss continues Lab / Micro Data 10/06/23 07:07 10/06/23 07:07 Labs: Laboratory Results - last 24 hr 10/06/23 07:07: WBC 14.1 H, RBC 3.58 L, Hgb 9.0 L, Hct 30.0 L, MCV 83.8, MCH 25.1 L, MCHC 30.0 L, RDW Std Deviation 68.1 H, RDW Coeff of [place]pe 22.2 H, Plt Count 287, MPV 9.9, Immature Gran % (Auto) 0.400, Neut % (Auto) 71.8 H, Lymph % (Auto) 15.9 L, [place] % (Auto) 10.3 H, Eos % (Auto) 1.5, Baso % (Auto) 0.1, Absolute Neuts (auto) 10.1 H, Absolute Lymphs (auto) 2.24, Nucleated RBC % 0, Sodium 136, Potassium 4.6, Chloride 108 H, Carbon Dioxide 20.0 L, Anion Gap 8, BUN 26 H, Creatinine 1.60 H, Estim Creat Clear Calc 61.88, Est GFR (MDRD) Af Amer 43 L, Est GFR (MDRD) Non-Af 36 L, BUN/Creatinine Ratio 16.2, Glucose 128 H, Lactic Acid 2.6 H*, Calcium 8.1 L 10/06/23 13:00: Lactic Acid 3.3 H* 10/06/23 17:01: POC Glucose 126 H 10/06/23 17:45: Synovial Source LEFT SHOULDER, Synovial Color [place], Synovial Appearance Turbid, Synovial WBC TNP, Synovial RBC TNP, Synovial Tot Cell Ct TNP, Synovial Neutrophils 88 H, Synovial Lymphocytes 12, Synovial Path Comment May follow 10/06/23 18:00: Lactic Acid 2.1 H* 10/06/23 19:55: PT 20.7 H, INR 1.8, APTT 39.8 H 10/06/23 21:30: Fluid Source Cancelled, Fluid Color Cancelled, Fluid Appearance Cancelled, Fluid WBC Cancelled, Fluid RBC Cancelled, Fluid Tot Cell Count Cancelled, Fld Polynuclear WBCs # Cancelled, Fld Polynuclear WBCs % Cancelled, Fluid Mononuclear WBCs Cancelled, Fld Mononuclear WBCs % Cancelled, Fluid Neutrophils Cancelled, Fluid Lymphocytes Cancelled, Fluid Monocytes Cancelled, Fluid Plasma Cells Cancelled, Fluid Macrophages Cancelled, Fld Mesothelial Cells Cancelled, Fluid Other Cells Cancelled, Fl Pathologist Comment Cancelled, Fluid Comment 2 Cancelled, Synovial Color Red, Synovial Appearance Sl Cl, Synovial WBC 84.6270 H, Synovial RBC 0.036 H, Synovial Tot Cell Ct 84.6270 H, Synov Polynuclear WBCs 59.879, Synov Mononuclear WBCs 3.110, Synovial Neutrophils 93 H, Synovial Lymphocytes 7, Synovial Polynuclear % 95.1, Synovial Mononuclear % 4.9, Synovial Path Comment May follow 10/06/23 22:25: POC Glucose 97 Micro: Microbiology 10/05/23 21:45 Blood Culture (Wb) - Anticubital Right Bacteria Detection (PCR) - Preliminary Staphylococcus aureus 10/05/23 21:45 Blood Culture (Wb) - Anticubital Right Blood Culture - Preliminary 10/05/23 21:10 Blood Culture (Wb) - Anticubital Right Blood Culture - Preliminary 10/05/23 21:44 Fluid - Synovial (joint) Gram Stain - Final 10/05/23 21:44 Fluid - Synovial (joint) Body Fluid Culture - Preliminary Staphylococcus aureus Physical Exam Narrative Vital signs stable, afebrile. Patient has been tachycardic. She denies any chest pain or shortness of breath. Dressings bilaterally are clean, dry, intact with no breakthrough bleeding. Range of motion of bilateral shoulders were deferred this morning Sensation intact to axillary, radial, median, and ulnar distribution Motor intact to AIN, PIN, and ulnar nerve. Patient was able to make okay sign, cross fingers, and thumbs up bilaterally Const alert, oriented x3 and no apparent distress General Appearance: cooperative HEENT normocephalic and head/scalp atraumatic Eyes PERRL Neck no JVD Resp normal respiratory effort Cardio Cardio Narrative: Regular pulse GI non-distended GI Narrative: Morbidly obese abdomen Extremity Extremity Narrative: Right upper extremity: Shoulder now tolerates passive range of motion. Dressings are clean dry and intact. Neurovascular intact distally. Left upper extremity: Patient has pain with passive range of motion. Shoulder is swollen with increased warmth to palpation. Neuro CN's II-XII intact bilaterally Psych affect normal Assessment & Plan Assessment/Plan (1) Septic arthritis of shoulder, right: PLAN: Postop day 2 arthroscopic irrigation debridement complete synovectomy right shoulder. 1. Antibiotics: Per primary service awaiting infectious disease consultation 2. Therapy: Nonweightbearing right upper extremity okay for passive and active range of motion and strengthening against gravity as tolerated. Sling as needed. 3. Dressing is currently clean dry and intact without any breakthrough bleeding remove dressing on postop day 3 4. Infectious disease consultation: Patient has gram-positive cocci in blood cultures. We are awaiting consultation and appreciate recommendations for IV antibiotics. Patient will most likely require PICC line. 5. Continue postoperative medical treatment per medicine Postop day 1 arthroscopic irrigation debridement complete synovectomy left shoulder 1. Continue Pain Medications: Patient is currently on Tylenol and oxycodone. Continue per medicine 3. DVT Prophylaxis: Patient has resumed her Xarelto in which she does take due to previous pulmonary emboli 4. PT/OT: Nonweightbearing left upper extremity. Okay for passive and active range of motion and strengthening against gravity as tolerated. Sling as needed 5. Labs have been reviewed. Appreciate recommendations from medicine 6. Encouraged Incentive Spirometry 7. Infectious disease consultation: We are awaiting aspiration results from the left shoulder which was done yesterday by Dr. Abhishek Buchanan. Patient does have positive blood cultures for Staphylococcus aureus. Appreciate recommendations from infectious disease. Most likely will require IV antibiotics and PICC line 8. Disposition: We will continue to monitor patient tomorrow as we are waiting on recommendations from infectious disease. Continue pain medications as needed above. She can resume her Xarelto per primary service. This dictation was created using voice recognition software. Phonetic and/or grammatical errors may exist. (2) Sepsis: QUALIFIERS: Sepsis type: sepsis due to unspecified organism Sepsis acute organ dysfunction status: without acute organ dysfunction Qualified Code(s): A41.9 - Sepsis, unspecified organism
[2023-10-07 07:24] LABS: Bedside Glucose 107 mg/dL (74-106)
[2023-10-07] MEDS: 0.9% Saline Lock 10 ML Syringe IV (08:17)
[2023-10-07 08:19] LABS: AUTO B FLUID DILUENT BKGD CT WBC <0.1 RBC <0.01 (W<.1,R<.01)
[2023-10-07 08:20] LABS: Source / Synovial Fluid LEFT SHOULDER
[2023-10-07 08:33] LABS: Absolute Lymphocyte Count 1.51 X10^3/uL (0.83-4.51); Absolute Neutrophil Count 8.1 X10^3/uL (2.0-7.7); Basophil# 0.04 X10^3/uL; Basophil% 0.4 % (0-1); Eosinophil# 0.56 X10^3/uL; Eosinophils% 5.1 % (0-5); Hematocrit 26.2 % (37-47); Hemoglobin 7.6 g/dL (12.0-15.0); Lymphocyte # 1.51 X10^3/ul (0.83-4.51); Lymphocyte % 13.8 % (19-41); Mean Corpuscular Hgb 24.4 pg (27.0-32.0); Mean Corpuscular Volume 84.2 fL (81-99); Mean Platelet Vol. 10.1 fl (6.2-12.0); Monocyte# 0.75 X10^3/uL; Monocyte% 6.8 % (0-10); NRBC Flagged by Analyzer 0 % (0-5); Neutrophil # 8.07 X10^3/uL (2.7-7.7); Neutrophil % 73.5 % (47-70); POSITIVE MORPHOLOGY YES; Platelet Count 239 K/mm3 (150-450); RBC Distribution Width CV 22.2 % (11.6-14.6); RBC Distribution Width SD 68.3 fl (35.1-43.9); Red Blood Count 3.11 M/mm3 (4.2-5.4)
[2023-10-07 08:38] LABS: Differential Indicated SCAN CRITERIA MET
[2023-10-07 08:50] LABS: Anion Gap 7 (5-15); BUN 20 mg/dL (7-18); Calcium,Total 7.9 mg/dL (8.5-10.1); Chloride 109 mmol/L (98-107); Creatinine, Serum 1.43 mg/dL (0.55-1.02); EST Glomerular Filtration Rate 41 mL/min (>60); Est Glom Filt Rate - Afr Amer 49 mL/min (>60); Estimated Creatinine Clearance 71.01 ml/min; Glucose 118 mg/dL (74-106); Potassium 4.1 mmol/L (3.5-5.1); Sodium Level 138 mmol/L (136-145)
[2023-10-07 09:00] VITALS: BP 122/65; PULSE 96; RESP 18; TEMP 36.7; O2SAT 92
--- NOTE | 2023-10-07 09:09 | PCM.PN.SRG ---
Subjective Subjective Patient is a 52 y/o F I am following in conjunction with Dr. Chisholm s/p right chest dialysis catheter removal for completion of dialysis. She denies any concerns at the previous catheter site. Objective Data Objective Data Vital Signs: Vital Signs Temp Pulse Resp BP Pulse Ox O2 Del Method O2 Flow Rate 98.3 F 119 H 18 125/70 H 93 Room Air 8 10/07/23 03:00 10/07/23 06:14 10/07/23 03:00 10/07/23 03:00 10/07/23 03:00 10/07/23 08:20 10/06/23 22:15 Oxygen Flow Rate (L/min) 8 Oxygen Delivery Method Room Air Weight: 342 lb 9.573 oz Body Mass Index (BMI) 55.3 Intake & Output: Intake and Output for Last 24 Hours 10/05/23 10/06/23 10/07/23 23:59 23:59 23:59 Intake Total 6921.75 / 6921.75 350 / 350 Output Total 2050 / 2350 700 / 700 Balance 4871.75 / 4571.75 -350 / -350 Medical Nutrition Assessment Dietitian: Malnutrition Criteria Met Start: 10/06/23 15:49 Freq: Status: Active Protocol: Document 10/06/23 15:49 AG (Rec: 10/06/23 15:49 [id number]) Nutrition Malnutrition Evidence of Malnutrition Exists Yes Malnutrition (moderate): Acute Illness/Injury Evidenced By Suboptimal Energy Intake ( Moderate),Weight Loss (Severe) Clinical Problem Acute Disease or Injury Related Malnutrition Etiology moderate, acute malnutrition related to inadequate energy intake d/t decreased appetite, recent hospitalizations Signs/Symptoms as evidenced by unintentional 12% wt loss < 1 month, estimated PO intake meeting < 75% of estimated energy needs x 1 month Status Active Problem Recommendation Dietitian Recommendations/Changes Continue cardiac, 1800 calorie controlled diet as tolerated; pt refusing ONS. May need to consider liberalizing diet if PO intake fails to improve and wt loss continues Lab / Micro Data 10/07/23 08:19 10/07/23 08:19 Labs: Laboratory Results - last 24 hr 10/06/23 13:00: Lactic Acid 3.3 H* 10/06/23 17:01: POC Glucose 126 H 10/06/23 17:45: Synovial Source LEFT SHOULDER, Synovial Color [place], Synovial Appearance Turbid, Synovial WBC TNP, Synovial RBC TNP, Synovial Tot Cell Ct TNP, Synovial Neutrophils 88 H, Synovial Lymphocytes 12, Synovial Path Comment May follow 10/06/23 18:00: Lactic Acid 2.1 H* 10/06/23 19:55: PT 20.7 H, INR 1.8, APTT 39.8 H 10/06/23 21:30: Fluid Source Cancelled, Fluid Color Cancelled, Fluid Appearance Cancelled, Fluid WBC Cancelled, Fluid RBC Cancelled, Fluid Tot Cell Count Cancelled, Fld Polynuclear WBCs # Cancelled, Fld Polynuclear WBCs % Cancelled, Fluid Mononuclear WBCs Cancelled, Fld Mononuclear WBCs % Cancelled, Fluid Neutrophils Cancelled, Fluid Lymphocytes Cancelled, Fluid Monocytes Cancelled, Fluid Plasma Cells Cancelled, Fluid Macrophages Cancelled, Fld Mesothelial Cells Cancelled, Fluid Other Cells Cancelled, Fl Pathologist Comment Cancelled, Fluid Comment 2 Cancelled, Synovial Source LEFT SHOULDER, Synovial Color Red, Synovial Appearance Sl Cl, Synovial WBC 84.6270 H, Synovial RBC 0.036 H, Synovial Tot Cell Ct 84.6270 H, Synov Polynuclear WBCs 59.879, Synov Mononuclear WBCs 3.110, Synovial Neutrophils 93 H, Synovial Lymphocytes 7, Synovial Polynuclear % 95.1, Synovial Mononuclear % 4.9, Synovial Path Comment May follow 10/06/23 22:25: POC Glucose 97 10/07/23 06:40: POC Glucose 107 H 10/07/23 08:19: WBC 11.0, RBC 3.11 L, Hgb 7.6 L, Hct 26.2 L, MCV 84.2, MCH 24.4 L, MCHC 29.0 L, RDW Std Deviation 68.3 H, RDW Coeff of [place] 22.2 H, Plt Count 239, MPV 10.1, Immature Gran % (Auto) 0.400, Neut % (Auto) 73.5 H, Lymph % (Auto) 13.8 L, [place] % (Auto) 6.8, Eos % (Auto) 5.1 H, Baso % (Auto) 0.4, Absolute Neuts (auto) 8.1 H, Absolute Lymphs (auto) 1.51, Nucleated RBC % 0, Sodium 138, Potassium 4.1, Chloride 109 H, Carbon Dioxide 22.0, Anion Gap 7, BUN 20 H, Creatinine 1.43 H, Estim Creat Clear Calc 71.01, Est GFR (MDRD) Af Amer 49 L, Est GFR (MDRD) Non-Af 41 L, BUN/Creatinine Ratio 14.0, Glucose 118 H, Calcium 7.9 L Micro: Microbiology 10/05/23 21:10 Blood Culture (Wb) - Anticubital Right Blood Culture - Final Staphylococcus aureus 10/05/23 21:45 Blood Culture (Wb) - Anticubital Right Bacteria Detection (PCR) - Final Staphylococcus aureus 10/05/23 21:45 Blood Culture (Wb) - Anticubital Right Blood Culture - Preliminary Staphylococcus aureus 10/05/23 21:44 Fluid - Synovial (joint) Gram Stain - Final 10/05/23 21:44 Fluid - Synovial (joint) Body Fluid Culture - Preliminary Staphylococcus aureus Physical Exam Chest Chest Narrative: Right chest- previous catheter insertion site with no signs of infection or drainage. No active bleeding or oozing. Suture material is noted. Assessment & Plan Assessment/Plan (1) Encounter for dialysis catheter care: PLAN: I have evaluated this patient in conjunction with Dr. Chisholm. Suture will need to be removed in 7 days from the procedure, on 10/13, she may return to our office to have the sutures removed if she is not still hospitalized. Change the dressing daily We will follow-up as needed at this time. Please re-consult our service if needed. Thank you for allowing us to participate in this patient's care. Charges/Coding Visit Charges Inpatient E&M: 92456 Subs Hosp L1 (no charge; post-op)
[2023-10-07 09:40] LABS: Anisocytosis 2+; Differential Comment SCANNED; Hypochromasia 1+; Macrocytosis 1+; Microcytosis 1+
[2023-10-07] MEDS: Heparin Injection (Vial) 5,000 UNIT/ML VIAL 5000 UNIT SC ×2 (10:02→21:29)
[2023-10-07] MEDS: Buprenorphine HCl 2 MG TAB.SUBL SL (10:02)
[2023-10-07] MEDS: busPIRone 5 MG Tablet 10 MG PO (10:03)
[2023-10-07] MEDS: Pantoprazole Sodium 40 MG Tablet PO ×2 (10:03→21:35)
[2023-10-07] MEDS: fluvoxaMINE Maleate 50 MG Tablet 100 MG PO (10:03)
[2023-10-07] MEDS: buPROPion (XL) 300 MG TABLET.XL PO (10:03)
[2023-10-07] MEDS: DULoxetine Hcl 30 MG Capsule PO (10:03)
[2023-10-07] MEDS: Pramipexole Di-HCl 0.25 MG Tablet 0.75 MG PO ×3 (10:03→17:22)
[2023-10-07] MEDS: 0.9% Normal Saline (1000mL) 1,000 ML 100 ML IV ×2 (10:10→21:29)
--- NOTE | 2023-10-07 10:30 | CASEMGMT ---
ZENON ROMAN chart review: Patient was last admitted 09/13-09/19/23 for JAGDISH. See CM notes from previous visit. Patient was discharged to home with [facility] and outpatient HD at [facility]. Patient returned 10/05/23 for worsening bilateral shoulder pain and was admitted for septic arthritis of left shoulder joint. Patient was taken to surgery for washout and debridement of left shoulder. Patient has positive blood cultures, ID consulted. ZENON ROMAN in to room to discuss readmission and needs at discharge. Patient states she attended outpatient HD and was discontinued after a couple sessions. Patient states she was staying with her mother and was doing well. [facility] is active for SN and PT. Patient states she attended her PCP appt on 09/24/23. ZENON ROMAN discussed possible need for SNF at she is non-weightbearing to left arm and has bacteremia with possible need for IV ATBs. Patient resistant to discussion regarding SNF at discharge. Patient states she would go to TCU, ZENON ROMAN updated patient that CM not sure TCU will be able to accept patient due to insurance. ZENON ROMAN discussed additional SNF options and patient will be provided with list. Will monitor progress with therapy. CM to continue to follow this patient and plan for a safe discharge.
[2023-10-07 11:59] LABS: Bedside Glucose 104 mg/dL (74-106)
[2023-10-07] MEDS: Cefazolin 2 GM in 0.9% Normal Saline (100mL Bag) 100 ML IV ×2 (13:58→21:39)
--- NOTE | 2023-10-07 13:59 | PCM.CONS.GEN ---
Assessment & Plan Assessment/Plan (1) Sepsis: QUALIFIERS: Sepsis type: sepsis due to unspecified organism Sepsis acute organ dysfunction status: without acute organ dysfunction Qualified Code(s): A41.9 - Sepsis, unspecified organism (2) MSSA bacteremia: PLAN: Admitted 07/2023 with MSSA bacteremia due to cellulitis. Course complicated by foy hematoma, then interstitial nephritis. Was started on HD via R chest permacath at end of Aug. Came to ED, seen by ortho, taken to OR early AM 10/05 for I&D of R shoulder. Permacath removed during the day, then taken back to OR 10/05 for L shoulder I&D. Bcx now with MSSA per pcr. Will check TTE, repeat bcx. Will narrow abx to cefazolin. Some L knee pain, will monitor. Will follow, thank you, d/w Dr. Nash. HPI Consult Data Date of Consult: 10/07/23 HPI Narrative Reason for Consultation: bacteremia HPI Narrative: RICCARDO VICKERS, is a 52 F with RA on chronic pred, who was admitted 07/2023 with MSSA bacteremia due to cellulitis. Course complicated by foy hematoma, then interstitial nephritis. Was started on HD via R chest permacath at end of Aug. Has chronic shoulder issues but pain worsened over past week, R worse than L. Some associated chills, no rash. Came to ED, seen by ortho, taken to OR early AM 10/05 for I&D of R shoulder. Permacath removed during the day, then taken back to OR 10/05 for L shoulder I&D. Bcx now with MSSA. Feeling a little better. Reports some soreness L knee. Full ROS performed and neg except as noted above. 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 Lupus anticoagulant disorder Morbid obesity MTHFR mutation Obesity KIKI (obstructive sleep apnea) Other complications of skin graft (allograft) (autograft) Pleural effusion, left Pulmonary embolism Rheumatoid arthritis Rheumatoid arthritis RLS (restless legs syndrome) Sinus tachycardia Home Medications bupropion HCl 300 mg 24 hr tablet, extended release 300 mg PO DAILY mental health 08/25/18 [History Last Taken 08/28/23] ropinirole 2 mg tablet,extended release 24 hr 2 mg PO QHS restless legs 08/25/18 [History Last Taken 09/20/22] rivaroxaban 20 mg tablet (Xarelto) 20 mg PO DAILY blood thinner 06/01/22 [History Last Taken 08/27/23] atenolol 50 mg tablet 50 mg PO DAILY HEART 09/21/22 [History Last Taken 08/28/23] biotin 1 ea PO/SL DAILY SUPPLEMENT 09/21/22 [History Last Taken 08/28/23] brexpiprazole 1 mg tablet (Rexulti) 1 mg PO DAILY MENTAL HEALTH 09/21/22 [History Last Taken 08/28/23] buspirone 10 mg tablet 10 mg PO DAILY ANXIETY 09/21/22 [History Last Taken 08/28/23] buspirone 10 mg tablet 20 mg PO QHS ANXIETY 09/21/22 [History Last Taken 08/27/23] fluvoxamine 100 mg tablet 100 mg PO DAILY MENTAL HEALTH 09/21/22 [History Last Taken 08/28/23] pantoprazole 40 mg tablet,delayed release 40 mg PO BID reflux #60 tabs 10/26/22 [Rx Last Taken 08/28/23] sucralfate 1 gram tablet 1 g PO Q6H reflux #120 tabs 10/26/22 [Rx Last Taken 08/28/23] tocilizumab 162 mg/0.9 mL subcutaneous syringe (Actemra) 162 mg subcut .weekly immunosuppressant 03/18/23 [History Last Taken 08/28/23] duloxetine 30 mg capsule,delayed release 30 mg PO DAILY mental health 06/29/23 [History Last Taken 08/28/23] quetiapine 50 mg tablet 50 mg PO QHS sleep 06/29/23 [History Last Taken 08/27/23] semaglutide 0.25 mg or 0.5 mg (2 mg/3 mL) subcutaneous pen injector (Ozempic) 0.5 mg subcut QWEEK diabetes 06/29/23 [History Last Taken Unknown] tizanidine 4 mg tablet 4 mg PO QHS spasms 06/29/23 [History Last Taken Unknown] pramipexole 0.75 mg tablet 0.75 mg PO TID restless leg 08/17/23 [History Last Taken Unknown] acetaminophen 325 mg tablet 1,000 mg (3.0769 x 325 mg) PO Q8H PRN PRN Fever, pain 1-10/10 #0 tabs 08/23/23 [Rx Last Taken 09/14/23] buprenorphine HCl 150 mcg buccal film (Belbuca) 150 mcg buccal Q12H pain relief 3 days #6 ea 08/23/23 [Rx Last Taken Unknown] ferrous sulfate 325 mg (65 mg iron) tablet (FeroSul) 325 mg PO QODAY@1200 anemia #0 tabs 08/23/23 [Rx Last Taken 08/27/23] quetiapine 25 mg tablet 25 mg PO .at bedtime sleep 08/28/23 [History Last Taken 08/27/23] prednisone 20 mg tablet 60 mg (3 x 20 mg) PO BREAKFAST #42 tabs 09/19/23 [Rx Last Taken Unknown] Allergy/AdvReac Type Severity Reaction Status Date / Time adhesive tape AdvReac Rash Verified 10/05/23 19:17 Family History Mother Cancer Lung CA w/ concurrent tobacco use. Heart disease Father No problems noted. Surgical History History of arthroscopy of right shoulder History of fasciotomy History of hysterectomy History of total bilateral knee replacement S/P pericardial window creation Social History household members: family Smoking Status: Never smoker alcohol intake: never substance use type: does not use Physical Exam Const alert, oriented x3 and no apparent distress General Appearance: cooperative HEENT normocephalic and head/scalp atraumatic Eyes PERRL and EOMs intact bilaterally Neck supple and No nodes Resp normal air movement and clear to auscultation bilaterally Cardio regular rate and regular rhythm GI soft to palpation, non-tender and non-distended Extremity General Extremity: edema Skin Skin Narrative: Bilat shoulders bandaged Neuro CN's II-XII intact bilaterally Medical Records Data Medical Nutrition Assessment Dietitian: Malnutrition Criteria Met Start: 10/06/23 15:49 Freq: Status: Active Protocol: Document 10/06/23 15:49 (Rec: 10/06/23 15:49 [id number]) Nutrition Malnutrition Evidence of Malnutrition Exists Yes Malnutrition (moderate): Acute Illness/Injury Evidenced By Suboptimal Energy Intake ( Moderate),Weight Loss (Severe) Clinical Problem Acute Disease or Injury Related Malnutrition Etiology moderate, acute malnutrition related to inadequate energy intake d/t decreased appetite, recent hospitalizations Signs/Symptoms as evidenced by unintentional 12% wt loss < 1 month, estimated PO intake meeting < 75% of estimated energy needs x 1 month Status Active Problem Recommendation Dietitian Recommendations/Changes Continue cardiac, 1800 calorie controlled diet as tolerated; pt refusing ONS. May need to consider liberalizing diet if PO intake fails to improve and wt loss continues Lab / Micro Data Attestation: I reviewed the patient's lab results. 10/07/23 08:19 10/07/23 08:19 Labs: Laboratory Results - last 24 hr 10/06/23 17:01: POC Glucose 126 H 10/06/23 17:45: Synovial Source LEFT SHOULDER, Synovial Color [place], Synovial Appearance Turbid, Synovial WBC TNP, Synovial RBC TNP, Synovial Tot Cell Ct TNP, Synovial Neutrophils 88 H, Synovial Lymphocytes 12, Synovial Path Comment May follow 10/06/23 18:00: Lactic Acid 2.1 H* 10/06/23 19:55: PT 20.7 H, INR 1.8, APTT 39.8 H 10/06/23 21:30: Fluid Source Cancelled, Fluid Color Cancelled, Fluid Appearance Cancelled, Fluid WBC Cancelled, Fluid RBC Cancelled, Fluid Tot Cell Count Cancelled, Fld Polynuclear WBCs # Cancelled, Fld Polynuclear WBCs % Cancelled, Fluid Mononuclear WBCs Cancelled, Fld Mononuclear WBCs % Cancelled, Fluid Neutrophils Cancelled, Fluid Lymphocytes Cancelled, Fluid Monocytes Cancelled, Fluid Plasma Cells Cancelled, Fluid Macrophages Cancelled, Fld Mesothelial Cells Cancelled, Fluid Other Cells Cancelled, Fl Pathologist Comment Cancelled, Fluid Comment 2 Cancelled, Synovial Source LEFT SHOULDER, Synovial Color Red, Synovial Appearance Sl Cl, Synovial WBC 84.6270 H, Synovial RBC 0.036 H, Synovial Tot Cell Ct 84.6270 H, Synov Polynuclear WBCs 59.879, Synov Mononuclear WBCs 3.110, Synovial Neutrophils 93 H, Synovial Lymphocytes 7, Synovial Polynuclear % 95.1, Synovial Mononuclear % 4.9, Synovial Path Comment May follow 10/06/23 22:25: POC Glucose 97 10/07/23 06:40: POC Glucose 107 H 10/07/23 08:19: WBC 11.0, RBC 3.11 L, Hgb 7.6 L, Hct 26.2 L, MCV 84.2, MCH 24.4 L, MCHC 29.0 L, RDW Std Deviation 68.3 H, RDW Coeff of [place] 22.2 H, Plt Count 239, MPV 10.1, Immature Gran % (Auto) 0.400, Neut % (Auto) 73.5 H, Lymph % (Auto) 13.8 L, [place] % (Auto) 6.8, Eos % (Auto) 5.1 H, Baso % (Auto) 0.4, Absolute Neuts (auto) 8.1 H, Absolute Lymphs (auto) 1.51, Nucleated RBC % 0, Differential Comment SCANNED, Hypochromasia 1+, Anisocytosis 2+, Microcytosis 1+, Macrocytosis 1+, Sodium 138, Potassium 4.1, Chloride 109 H, Carbon Dioxide 22.0, Anion Gap 7, BUN 20 H, Creatinine 1.43 H, Estim Creat Clear Calc 71.01, Est GFR (MDRD) Af Amer 49 L, Est GFR (MDRD) Non-Af 41 L, BUN/Creatinine Ratio 14.0, Glucose 118 H, Calcium 7.9 L 10/07/23 11:30: POC Glucose 104 Micro: Microbiology 10/06/23 18:40 Blood Culture (Wb) - Right Hand Blood Culture - Preliminary 10/06/23 21:30 Fluid - Synovial (joint) Gram Stain - Final 10/06/23 21:30 Fluid - Synovial (joint) Body Fluid Culture - Preliminary 10/06/23 17:45 Fluid - Synovial (joint) Gram Stain - Final 10/06/23 17:45 Fluid - Synovial (joint) Body Fluid Culture - Preliminary Staphylococcus aureus 10/05/23 21:44 Fluid - Synovial (joint) Gram Stain - Final 10/05/23 21:44 Fluid - Synovial (joint) Body Fluid Culture - Final Staphylococcus aureus 10/05/23 21:10 Blood Culture (Wb) - Anticubital Right Blood Culture - Final Staphylococcus aureus 10/05/23 21:45 Blood Culture (Wb) - Anticubital Right Bacteria Detection (PCR) - Final Staphylococcus aureus 10/05/23 21:45 Blood Culture (Wb) - Anticubital Right Blood Culture - Preliminary Staphylococcus aureus Imaging Radiology Impression Echocardiogram 10/06/23 21:50 Interpretation Summary Normal LV size. Left ventricular systolic function is lower limits of normal. Septal bounce. The left ventricular ejection fraction is 50 %. Moderate concentric left ventricular hypertrophy. Mildly dilated right ventricle. Mild (1+) eccentric mitral valve insufficiency. Ordering Physician: Jesús Carrero Referring Physician: KOKO FANG Performed By: Milla Swenson RCS
[2023-10-07 15:00] VITALS: BP 114/80; PULSE 68; RESP 18; TEMP 36.7; O2SAT 98
[2023-10-07 16:30] LABS: Bedside Glucose 100 mg/dL (74-106)
--- NOTE | 2023-10-07 19:17 | PN.HOSP_ITS ---
Reason for Visit Reason for Visit: Diagnoses Sepsis, unspecified organism (10/05/23) Methicillin susceptible Staphylococcus aureus infection as the cause of diseases classified elsewhere (10/05/23) Type 2 diabetes mellitus without complications (10/05/23) Morbid (severe) obesity due to excess calories (10/05/23) Arthritis due to other bacteria, right shoulder (10/05/23) Pyogenic arthritis, unspecified (10/05/23) Pain in left shoulder (10/05/23) End stage renal disease (10/05/23) Severe sepsis without septic shock (10/05/23) Bacteremia (10/05/23) Encounter for fitting and adjustment of extracorporeal dialysis catheter (10/05/23) Dependence on renal dialysis (10/05/23) Subjective Subjective Patient was seen and examined today, her vital signs remained stable and she is on room air at this time. I talked with infectious diseases and they have seen the patient today, they instructed me to change antibiotic coverage to Ancef, patient has MSSA on the cultures. Objective Data Objective Data Vital Signs: Vital Signs Temp Pulse Resp BP Pulse Ox O2 Del Method O2 Flow Rate 98.1 F 68 18 114/80 98 Room Air 8 10/07/23 15:00 10/07/23 15:00 10/07/23 15:00 10/07/23 15:00 10/07/23 15:00 10/07/23 15:00 10/06/23 22:15 Oxygen Flow Rate (L/min) 8 Oxygen Delivery Method Room Air Weight: 155.4 kg Body Mass Index (BMI) 55.3 Intake & Output: Intake and Output for Last 24 Hours 10/05/23 10/06/23 10/07/23 23:59 23:59 23:59 Intake Total 6921.75 / 6921.75 1948.33 / 1948.33 Output Total 2050 / 2350 1500 / 1500 Balance 4871.75 / 4571.75 448.33 / 448.33 Medical Nutrition Assessment Dietitian: Malnutrition Criteria Met Start: 10/06/23 15:49 Freq: Status: Active Protocol: Document 10/06/23 15:49 AG (Rec: 10/06/23 15:49 AG [id number]) Nutrition Malnutrition Evidence of Malnutrition Exists Yes Malnutrition (moderate): Acute Illness/Injury Evidenced By Suboptimal Energy Intake ( Moderate),Weight Loss (Severe) Clinical Problem Acute Disease or Injury Related Malnutrition Etiology moderate, acute malnutrition related to inadequate energy intake d/t decreased appetite, recent hospitalizations Signs/Symptoms as evidenced by unintentional 12% wt loss < 1 month, estimated PO intake meeting < 75% of estimated energy needs x 1 month Status Active Problem Recommendation Dietitian Recommendations/Changes Continue cardiac, 1800 calorie controlled diet as tolerated; pt refusing ONS. May need to consider liberalizing diet if PO intake fails to improve and wt loss continues Lab / Micro Data 10/07/23 08:19 10/07/23 08:19 Labs: Laboratory Results - last 24 hr 10/06/23 17:45: Synovial Source LEFT SHOULDER, Synovial Color [place], Synovial Appearance Turbid, Synovial WBC TNP, Synovial RBC TNP, Synovial Tot Cell Ct TNP, Synovial Neutrophils 88 H, Synovial Lymphocytes 12, Synovial Path Comment May follow 10/06/23 19:55: PT 20.7 H, INR 1.8, APTT 39.8 H 10/06/23 21:30: Fluid Source Cancelled, Fluid Color Cancelled, Fluid Appearance Cancelled, Fluid WBC Cancelled, Fluid RBC Cancelled, Fluid Tot Cell Count Cancelled, Fld Polynuclear WBCs # Cancelled, Fld Polynuclear WBCs % Cancelled, Fluid Mononuclear WBCs Cancelled, Fld Mononuclear WBCs % Cancelled, Fluid Neutrophils Cancelled, Fluid Lymphocytes Cancelled, Fluid Monocytes Cancelled, Fluid Plasma Cells Cancelled, Fluid Macrophages Cancelled, Fld Mesothelial Cells Cancelled, Fluid Other Cells Cancelled, Fl Pathologist Comment Cancelled, Fluid Comment 2 Cancelled, Synovial Source LEFT SHOULDER, Synovial Color Red, Synovial Appearance Sl Cl, Synovial WBC 84.6270 H, Synovial RBC 0.036 H, Synovial Tot Cell Ct 84.6270 H, Synov Polynuclear WBCs 59.879, Synov Mononuclear WBCs 3.110, Synovial Neutrophils 93 H, Synovial Lymphocytes 7, Synovial Polynuclear % 95.1, Synovial Mononuclear % 4.9, Synovial Path Comment May follow 10/06/23 22:25: POC Glucose 97 10/07/23 06:40: POC Glucose 107 H 10/07/23 08:19: WBC 11.0, RBC 3.11 L, Hgb 7.6 L, Hct 26.2 L, MCV 84.2, MCH 24.4 L, MCHC 29.0 L, RDW Std Deviation 68.3 H, RDW Coeff of [place] 22.2 H, Plt Count 239, MPV 10.1, Immature Gran % (Auto) 0.400, Neut % (Auto) 73.5 H, Lymph % (Auto) 13.8 L, [place] % (Auto) 6.8, Eos % (Auto) 5.1 H, Baso % (Auto) 0.4, Absolute Neuts (auto) 8.1 H, Absolute Lymphs (auto) 1.51, Nucleated RBC % 0, Differential Comment SCANNED, Hypochromasia 1+, Anisocytosis 2+, Microcytosis 1+, Macrocytosis 1+, Sodium 138, Potassium 4.1, Chloride 109 H, Carbon Dioxide 22.0, Anion Gap 7, BUN 20 H, Creatinine 1.43 H, Estim Creat Clear Calc 71.01, Est GFR (MDRD) Af Amer 49 L, Est GFR (MDRD) Non-Af 41 L, BUN/Creatinine Ratio 14.0, Glucose 118 H, Calcium 7.9 L 10/07/23 11:30: POC Glucose 104 10/07/23 16:08: POC Glucose 100 Micro: Microbiology 10/06/23 18:40 Blood Culture (Wb) - Right Hand Blood Culture - Preliminary 10/06/23 18:00 Blood Culture (Wb) - Anticubital Left Blood Culture - Preliminary 10/06/23 21:30 Fluid - Synovial (joint) Gram Stain - Final 10/06/23 21:30 Fluid - Synovial (joint) Body Fluid Culture - Preliminary 10/06/23 17:45 Fluid - Synovial (joint) Gram Stain - Final 10/06/23 17:45 Fluid - Synovial (joint) Body Fluid Culture - Preliminary Staphylococcus aureus 10/05/23 21:44 Fluid - Synovial (joint) Gram Stain - Final 10/05/23 21:44 Fluid - Synovial (joint) Body Fluid Culture - Final Staphylococcus aureus 10/05/23 21:10 Blood Culture (Wb) - Anticubital Right Blood Culture - Final Staphylococcus aureus 10/05/23 21:45 Blood Culture (Wb) - Anticubital Right Bacteria Detection (PCR) - Final Staphylococcus aureus 10/05/23 21:45 Blood Culture (Wb) - Anticubital Right Blood Culture - Preliminary Staphylococcus aureus Radiography Diagnostic Testing: Radiology Impression Echocardiogram 03/17/24 21:50 Interpretation Summary Normal LV size. Left ventricular systolic function is lower limits of normal. Septal bounce. The left ventricular ejection fraction is 50 %. Moderate concentric left ventricular hypertrophy. Mildly dilated right ventricle. Mild (1+) eccentric mitral valve insufficiency. Ordering Physician: Jesús Carrero Referring Physician: KOKO FANG Performed By: Milla Swenson RCS Physical Exam Narrative alert, oriented x3 and no apparent distress Constitutional Narrative: Patient is morbidly obese General Appearance: cooperative, well kempt and well developed Orientation / Consciousness: awake, oriented to person, oriented to place and oriented to time HEENT normocephalic, head/scalp atraumatic and moist oral mucous membranes Eyes PERRL, EOMs intact bilaterally and conjunctivae normal Neck supple, no JVD, thyroid normal and no carotid bruits General: trachea midline Resp normal respiratory effort, no retractions, no use of accessory muscles and clear to auscultation bilaterally Auscultation: Negative for rales, rhonchi or wheezes Cardio regular rate, regular rhythm, no murmurs, no rub and no gallops GI normal to inspection, nondistended, normoactive bowel sounds, soft to palpation, non-tender and non-distended Extremity no clubbing, cyanosis or edema Neuro oriented x3, CN's II-XII intact bilaterally, moves all extremities, no focal motor deficits and no sensory deficits noted Sensorium / Orientation: awake, alert, oriented to person, oriented to place and oriented to time Speech: speech normal Psych affect normal Assessment & Plan Assessment/Plan (1) MSSA bacteremia: (2) Sepsis: QUALIFIERS: Sepsis type: sepsis due to unspecified organism Se psis acute organ dysfunction status: without acute organ dysfunction Qualified Code(s): A41.9 - Sepsis, unspecified organism PLAN: Plan 1. Sepsis secondary to Staph aureus (MSSA) from septic right shoulder and septic left shoulder-patient is now on Ancef per ID #2 septic right shoulder and left shoulder from Staph aureus (MSSA)-again patient is on Ancef #3 chronic depression-patient's medications were ordered #4 rheumatoid arthritis-complicates care, medical course, recovery, and prognosis #5 morbid obesity-complicates care, medical course, recovery, and prognosis #5 type 2 diabetes-patient's blood sugars will be monitored, sliding scale insulin was ordered if needed #6 acute kidney injury-patient's creatinine was 1.43 today, labs will be monitored daily Total clinical time spent by myself addressing the patient's medical issues, reviewing all of her data, and collaborating with patient's care team: 35 minutes Charges/Coding Visit Charges Inpatient E&M: 86910 Subs Hosp L2
[2023-10-07 21:00] VITALS: BP 112/98; PULSE 108; RESP 16; TEMP 36.6; O2SAT 100
[2023-10-07] MEDS: busPIRone 5 MG Tablet 20 MG PO (21:30)
[2023-10-07] MEDS: tiZANidine HCl 2 MG Tablet 4 MG PO (21:32)
[2023-10-07] MEDS: QUEtiapine 25 MG Tablet 75 MG PO (21:35)
[2023-10-07] MEDS: Pramipexole Di-HCl 1 MG Tablet PO (21:41)
[2023-10-07] MEDS: Pramipexole Di-HCl 0.5 MG Tablet PO (21:44)
[2023-10-07 23:37] LABS: Bedside Glucose 109 mg/dL (74-106)
[2023-10-08] VITALS (7 sets, daily range): BP systolic 99–130; BP diastolic 60–77; PULSE 96–132; RESP 16–18; TEMP 36.6–39; O2SAT 94–95; BMI 55.2
--- NOTE | 2023-10-08 02:25 | EKG12_ITS ---
Test Reason : CP Blood Pressure : / mmHG Vent. Rate : 130 BPM Atrial Rate : 130 BPM P-R Int : 116 ms QRS Dur : 082 ms QT Int : 276 ms P-R-T Axes : 045 032 042 degrees QTc Int : 406 [address] Sin[address] tachycardia Nonspecific ST abnormality Abnormal ECG When compared with ECG of 05-OCT-2023 23:14, MANUAL COMPARISON REQUIRED, DATA IS UNCONFIRMED Confirmed by BLAKE LEON, MILY ([id number]), medical editor LYLY KENDALL ([id number]) on 10/08/2023 10:50:52 AM Referred By: JOSUE Confirmed By:MILY LOZANO MD
[2023-10-08] MEDS: Metoprolol(XL)Succ 25 MG Tablet PO (02:30)
[2023-10-08] MEDS: oxyCODONE 5 MG Tablet 10 MG PO ×3 (04:44→21:07)
[2023-10-08] MEDS: 0.9% Normal Saline (1000mL) 1,000 ML 100 ML IV ×2 (04:45→14:59)
[2023-10-08] MEDS: Acetaminophen 500 MG Tablet 1000 MG PO ×3 (06:10→21:09)
[2023-10-08] MEDS: Cefazolin 2 GM in 0.9% Normal Saline (100mL Bag) 100 ML IV ×3 (06:11→21:07)
[2023-10-08] MEDS: Sucralfate 1 GM Tablet PO ×4 (06:11→21:08)
[2023-10-08 06:38] LABS: Absolute Lymphocyte Count 1.27 X10^3/uL (0.83-4.51); Absolute Neutrophil Count 6.6 X10^3/uL (2.0-7.7); Basophil# 0.01 X10^3/uL; Basophil% 0.1 % (0-1); Eosinophil# 0.57 X10^3/uL; Eosinophils% 6.2 % (0-5); Hematocrit 24.9 % (37-47); Hemoglobin 7.3 g/dL (12.0-15.0); Lymphocyte # 1.27 X10^3/ul (0.83-4.51); Lymphocyte % 13.9 % (19-41); Mean Corp Hgb Conc 29.3 g/dL (32-36); Mean Corpuscular Hgb 24.4 pg (27.0-32.0); Mean Corpuscular Volume 83.3 fL (81-99); Mean Platelet Vol. 10.3 fl (6.2-12.0); Monocyte# 0.63 X10^3/uL; Monocyte% 6.9 % (0-10); NRBC Flagged by Analyzer 0 % (0-5); Neutrophil # 6.64 X10^3/uL (2.7-7.7); Neutrophil % 72.5 % (47-70); POSITIVE MORPHOLOGY YES; Platelet Count 242 K/mm3 (150-450); RBC Distribution Width CV 22.3 % (11.6-14.6); RBC Distribution Width SD 67.6 fl (35.1-43.9); Red Blood Count 2.99 M/mm3 (4.2-5.4); White Blood Count 9.2 K/mm3 (4.4-11.0)
[2023-10-08 06:40] LABS: Differential Indicated SCAN CRITERIA MET
[2023-10-08 07:01] LABS: Anion Gap 7 (5-15); BUN 15 mg/dL (7-18); BUN/Creat Ratio 12.6 RATIO (10-20); Calcium,Total 8.2 mg/dL (8.5-10.1); Chloride 109 mmol/L (98-107); Creatinine, Serum 1.19 mg/dL (0.55-1.02); EST Glomerular Filtration Rate 51 mL/min (>60); Est Glom Filt Rate - Afr Amer 61 mL/min (>60); Estimated Creatinine Clearance 85.29 ml/min; Glucose 112 mg/dL (74-106); Potassium 3.9 mmol/L (3.5-5.1); Sodium Level 137 mmol/L (136-145)
[2023-10-08] MEDS: busPIRone 5 MG Tablet 10 MG PO (09:10)
[2023-10-08] MEDS: Pantoprazole Sodium 40 MG Tablet PO ×2 (09:10→21:07)
[2023-10-08] MEDS: DULoxetine Hcl 30 MG Capsule PO (09:10)
[2023-10-08] MEDS: fluvoxaMINE Maleate 50 MG Tablet 100 MG PO (09:10)
[2023-10-08] MEDS: Heparin Injection (Vial) 5,000 UNIT/ML VIAL 5000 UNIT SC ×2 (09:10→21:07)
[2023-10-08] MEDS: Pramipexole Di-HCl 0.25 MG Tablet 0.75 MG PO ×3 (09:10→16:51)
[2023-10-08] MEDS: buPROPion (XL) 300 MG TABLET.XL PO (09:11)
[2023-10-08] MEDS: Buprenorphine HCl 2 MG TAB.SUBL SL (09:15)
[2023-10-08 10:24] LABS: Pathologist Comment Reviewed
[2023-10-08 10:25] LABS: Pathologist Comment Reviewed
--- NOTE | 2023-10-08 10:28 | PCM.PN.ID ---
Physical Exam Narrative Feeling better. Reports L knee pain is at baseline for her. Had fever overnight, some mild nausea. Const alert and no apparent distress Resp normal air movement and clear to auscultation bilaterally Cardio regular rate and regular rhythm GI soft to palpation, non-tender and non-distended Skin no rashes or lesions noted ID ID: Route of nutrition/ use of supplements: [] Nutritional Intake: [] IV Site: [] Kamara Catheter: [] Assessment & Plan Assessment/Plan (1) Sepsis: QUALIFIERS: Sepsis type: sepsis due to unspecified organism Sepsis acute organ dysfunction status: without acute organ dysfunction Qualified Code(s): A41.9 - Sepsis, unspecified organism (2) MSSA bacteremia: PLAN: Admitted 07/2023 with MSSA bacteremia due to cellulitis. Course complicated by foy hematoma, then interstitial nephritis. Was started on HD via R chest permacath at end of Aug. Came to ED, seen by ortho, taken to OR early AM 10/05 for I&D of R shoulder. Permacath removed during the day, then taken back to OR 10/05 for L shoulder I&D. Bcx now with MSSA per pcr. No veg seen on TTE. Will repeat bcx. Some L knee pain, will monitor. Will follow
[2023-10-08 11:15] LABS: Bedside Glucose 124 mg/dL (74-106)
--- NOTE | 2023-10-08 12:19 | CASEMGMT ---
Physician spoke with patient and she asked about [facility]. Patient is over their weight limit. Physician spoke with patient about [employer] swing bed unit and [facility]. Patient said her first choice would be [facility] and second would be [facility]. SW asked Cynthia to make referrals. Nimo Llanos CHILD CARE SITTER TAMI
[2023-10-08] MEDS: Ferrous Sulfate 325 MG Tablet PO (12:54)
[2023-10-08 14:01] LABS: Pathologist Review Reviewed
--- NOTE | 2023-10-08 15:14 | CASEMGMT ---
SW spoke with patient. SW let patient know a referral was sent to [facility]. Patient declined [facility] as it is too far. SW did provide patient with a list of senior living facility providers including quality and resource use data and consistent with patient?s preferred geographic region, medical needs, and insurance network were provided from the [facility] Guide. AKREY told patient SW will check back with her tomorrow. Nimo Llanos [employer] MEND WORKER TAMI
--- NOTE | 2023-10-08 15:26 | WOUNDNOTE ---
wound photo: left lower leg
--- NOTE | 2023-10-08 15:26 | WOUNDNOTE ---
wound photo: left shoulder
--- NOTE | 2023-10-08 15:27 | WOUNDNOTE ---
wound photo: left shoulder
--- NOTE | 2023-10-08 15:28 | WOUNDNOTE ---
wound photo: right shoulder
--- NOTE | 2023-10-08 15:28 | WOUNDNOTE ---
wound photo: right shoulder
--- NOTE | 2023-10-08 16:10 | CASEMGMT ---
Discharge Planning Referral sent to [facility] via [facility]. Cynthia Marcelo, Discharge Planning Asst
[2023-10-08 17:12] LABS: Bedside Glucose 111 mg/dL (74-106)
[2023-10-08 17:12] LABS: Bedside Glucose 112 mg/dL (74-106)
--- NOTE | 2023-10-08 18:56 | PN.HOSP_ITS ---
Reason for Visit Reason for Visit: Diagnoses Sepsis, unspecified organism (10/05/23) Methicillin susceptible Staphylococcus aureus infection as the cause of diseases classified elsewhere (10/05/23) Type 2 diabetes mellitus without complications (10/05/23) Morbid (severe) obesity due to excess calories (10/05/23) Arthritis due to other bacteria, right shoulder (10/05/23) Pyogenic arthritis, unspecified (10/05/23) Pain in left shoulder (10/05/23) End stage renal disease (10/05/23) Severe sepsis without septic shock (10/05/23) Bacteremia (10/05/23) Encounter for fitting and adjustment of extracorporeal dialysis catheter (10/05/23) Dependence on renal dialysis (10/05/23) Subjective Subjective Patient was seen and examined today, she is alert and appropriate, she is on room air, her blood cultures from 2 days ago were positive for Staph aureus, blood culture from yesterday shows gram-positive cocci. Patient's white blood cell count was normal today, hemoglobin was 7.3, creatinine was 1.19. Objective Data Objective Data Vital Signs: Vital Signs Temp Pulse Resp BP Pulse Ox O2 Del Method O2 Flow Rate 97.9 F 96 16 102/62 94 Room Air 8 10/08/23 15:10 10/08/23 15:10 10/08/23 15:10 10/08/23 15:10 10/08/23 15:10 10/08/23 15:10 10/06/23 22:15 Oxygen Flow Rate (L/min) 8 Oxygen Delivery Method Room Air Weight: 155.3 kg Body Mass Index (BMI) 55.2 Intake & Output: Intake and Output for Last 24 Hours 10/06/23 10/07/23 10/08/23 23:59 23:59 23:59 Intake Total 6921.75 / 6921.75 3058.33 / 3158.33 2906.67 / 2906.67 Output Total 2050 / 2350 1500 / 1500 450 / 450 Balance 4871.75 / 4571.75 1558.33 / 1658.33 2456.67 / 2456.67 Medical Nutrition Assessment Dietitian: Malnutrition Criteria Met Start: 10/06/23 15:49 Freq: Status: Active Protocol: Document 10/06/23 15:49 AG (Rec: 10/06/23 15:49 AG [id number]) Nutrition Malnutrition Evidence of Malnutrition Exists Yes Malnutrition (moderate): Acute Illness/Injury Evidenced By Suboptimal Energy Intake ( Moderate),Weight Loss (Severe) Clinical Problem Acute Disease or Injury Related Malnutrition Etiology moderate, acute malnutrition related to inadequate energy intake d/t decreased appetite, recent hospitalizations Signs/Symptoms as evidenced by unintentional 12% wt loss < 1 month, estimated PO intake meeting < 75% of estimated energy needs x 1 month Status Active Problem Recommendation Dietitian Recommendations/Changes Continue cardiac, 1800 calorie controlled diet as tolerated; pt refusing ONS. May need to consider liberalizing diet if PO intake fails to improve and wt loss continues Lab / Micro Data 10/08/23 06:10 10/08/23 06:10 Labs: Laboratory Results - last 24 hr 10/05/23 21:44: Fl Crystal Path Review Reviewed 10/06/23 17:45: Synovial Path Comment Reviewed 10/06/23 21:30: Synovial Path Comment Reviewed 10/07/23 21:26: POC Glucose 109 H 10/08/23 06:10: WBC 9.2, RBC 2.99 L, Hgb 7.3 L, Hct 24.9 L, MCV 83.3, MCH 24.4 L , MCHC 29.3 L, RDW Std Deviation 67.6 H, RDW Coeff of Chepe 22.3 H, Plt Count 242, MPV 10.3, Immature Gran % (Auto) 0.400, Neut % (Auto) 72.5 H, Lymph % (Auto) 13.9 L, Butts % (Auto) 6.9, Eos % (Auto) 6.2 H, Baso % (Auto) 0.1, Absolute Neuts (auto) 6.6, Absolute Lymphs (auto) 1.27, Nucleated RBC % 0, Sodium 137, Potassium 3.9, Chloride 109 H, Carbon Dioxide 21.0, Anion Gap 7, BUN 15, Creatinine 1.19 H, Estim Creat Clear Calc 85.29, Est GFR (MDRD) Af Amer 61, Est GFR (MDRD) Non-Af 51 L, BUN/Creatinine Ratio 12.6, Glucose 112 H, Calcium 8.2 L 10/08/23 06:13: POC Glucose 111 H 10/08/23 10:54: POC Glucose 124 H 10/08/23 16:50: POC Glucose 112 H Micro: Microbiology 10/07/23 12:56 Blood Culture (Wb) - Left Hand Blood Culture - Preliminary 10/05/23 21:44 Fluid - Synovial (joint) Gram Stain - Final 10/05/23 21:44 Fluid - Synovial (joint) Body Fluid Culture - Final Staphylococcus aureus 10/05/23 21:44 Fluid - Synovial (joint) Anaerobic Culture - Preliminary Checking for anaerobes, further studies to follow. 10/06/23 18:40 Blood Culture (Wb) - Right Hand Blood Culture - Preliminary Staphylococcus aureus 10/06/23 18:00 Blood Culture (Wb) - Anticubital Left Blood Culture - Prel iminary Staphylococcus aureus 10/06/23 21:30 Fluid - Synovial (joint) Gram Stain - Final 10/06/23 21:30 Fluid - Synovial (joint) Body Fluid Culture - Preliminary Staphylococcus aureus 10/06/23 17:45 Fluid - Synovial (joint) Gram Stain - Final 10/06/23 17:45 Fluid - Synovial (joint) Body Fluid Culture - Final Staphylococcus aureus 10/05/23 21:45 Blood Culture (Wb) - Anticubital Right Bacteria Detection (PCR) - Final Staphylococcus aureus 10/05/23 21:45 Blood Culture (Wb) - Anticubital Right Blood Culture - Final Staphylococcus aureus 10/05/23 21:10 Blood Culture (Wb) - Anticubital Right Blood Culture - Final Staphylococcus aureus Physical Exam Const alert, oriented x3 and no apparent distress Constitutional Narrative: Patient is morbidly obese General Appearance: cooperative, well kempt and well developed Orientation / Consciousness: awake, oriented to person, oriented to place and oriented to time HEENT normocephalic, head/scalp atraumatic and moist oral mucous membranes Eyes PERRL, EOMs intact bilaterally and conjunctivae normal Neck supple, no JVD, thyroid normal and no carotid bruits General: trachea midline Resp normal respiratory effort, no retractions, no use of accessory muscles and clear to auscultation bilaterally Auscultation: Negative for rales, rhonchi or wheezes Cardio regular rate, regular rhythm, no murmurs, no rub and no gallops GI normal to inspection, nondistended, normoactive bowel sounds, soft to palpation, non-tender and non-distended Extremity no clubbing, cyanosis or edema Neuro oriented x3, CN's II-XII intact bilaterally, no focal motor deficits and no sensory deficits noted Sensorium / Orientation: awake and alert Speech: speech normal Psych affect normal Assessment & Plan Assessment/Plan (1) MSSA bacteremia: (2) Sepsis: QUALIFIERS: Sepsis type: sepsis due to unspecified organism Sepsis acute organ dysfunction status: without acute organ dysfunction Qualified Code(s): A41.9 - Sepsis, unspecified organism PLAN: Plan 1. Sepsis secondary to Staph aureus (MSSA) from septic right shoulder and septic left shoulder-patient is now on Ancef per ID, blood cultures done on 10/06/2023 show gram-positive cocci. #2 septic right shoulder and left shoulder from Staph aureus (MSSA)-again patient is on Ancef #3 chronic depression-patient's medications were ordered #4 rheumatoid arthritis-complicates care, medical course, recovery, and prognosis #5 morbid obesity-complicates care, medical course, recovery, and prognosis #5 type 2 diabetes-patient's blood sugars will be monitored, sliding scale insulin was ordered if needed #6 acute kidney injury-patient's creatinine was 1.19 today, labs will be monitored daily I had a discussion with the patient about going to an extended care facility for short-term rehab services, she was not against this and agreed to work with secondary social studies teacher and discharge planning about this. Total clinical time spent by myself addressing the patient's medical issues, reviewing all of her data, and collaborating with patient's care team: 35 minutes Charges/Coding Visit Charges Inpatient E&M: 85144 Subs Hosp L2
--- NOTE | 2023-10-08 19:04 | PCM.PN.ORT ---
Subjective Subjective pt is overall doing well. queenie shoulder pain improved. currently afebrile Objective Data Objective Data Vital Signs: Vital Signs Temp Pulse Resp BP Pulse Ox O2 Del Method O2 Flow Rate 97.9 F 96 16 102/62 94 Room Air 8 10/08/23 15:10 10/08/23 15:10 10/08/23 15:10 10/08/23 15:10 10/08/23 15:10 10/08/23 15:10 10/06/23 22:15 Oxygen Flow Rate (L/min) 8 Oxygen Delivery Method Room Air Weight: 342 lb 6.046 oz Body Mass Index (BMI) 55.2 Intake & Output: Intake and Output for Last 24 Hours 10/06/23 10/07/23 10/08/23 23:59 23:59 23:59 Intake Total 6921.75 / 6921.75 3058.33 / 3158.33 2906.67 / 2906.67 Output Total 2050 / 2350 1500 / 1500 450 / 450 Balance 4871.75 / 4571.75 1558.33 / 1658.33 2456.67 / 2456.67 Medical Nutrition Assessment Dietitian: Malnutrition Criteria Met Start: 10/06/23 15:49 Freq: Status: Active Protocol: Document 10/06/23 15:49 AG (Rec: 10/06/23 15:49 [id number]) Nutrition Malnutrition Evidence of Malnutrition Exists Yes Malnutrition (moderate): Acute Illness/Injury Evidenced By Suboptimal Energy Intake ( Moderate),Weight Loss (Severe) Clinical Problem Acute Disease or Injury Related Malnutrition Etiology moderate, acute malnutrition related to inadequate energy intake d/t decreased appetite, recent hospitalizations Signs/Symptoms as evidenced by unintentional 12% wt loss < 1 month, estimated PO intake meeting < 75% of estimated energy needs x 1 month Status Active Problem Recommendation Dietitian Recommendations/Changes Continue cardiac, 1800 calorie controlled diet as tolerated; pt refusing ONS. May need to consider liberalizing diet if PO intake fails to improve and wt loss continues Lab / Micro Data Attestation: I reviewed the patient's lab results. 10/08/23 06:10 10/08/23 06:10 Labs: Laboratory Results - last 24 hr 10/05/23 21:44: Fl Crystal Path Review Reviewed 10/06/23 17:45: Synovial Path Comment Reviewed 10/06/23 21:30: Synovial Path Comment Reviewed 10/07/23 21:26: POC Glucose 109 H 10/08/23 06:10: WBC 9.2, RBC 2.99 L, Hgb 7.3 L, Hct 24.9 L, MCV 83.3, MCH 24.4 L, MCHC 29.3 L, RDW Std Deviation 67.6 H, RDW Coeff of Chepe 22.3 H, Plt Count 242, MPV 10.3, Immature Gran % (Auto) 0.400, Neut % (Auto) 72.5 H, Lymph % (Auto) 13.9 L, [place] % (Auto) 6.9, Eos % (Auto) 6.2 H, Baso % (Auto) 0.1, Absolute Neuts (auto) 6.6, Absolute Lymphs (auto) 1.27, Nucleated RBC % 0, Sodium 137, Potassium 3.9, Chloride 109 H, Carbon Dioxide 21.0, Anion Gap 7, BUN 15, Creatinine 1.19 H, Estim Creat Clear Calc 85.29, Est GFR (MDRD) Af Amer 61, Est GFR (MDRD) Non-Af 51 L, BUN/Creatinine Ratio 12.6, Glucose 112 H, Calcium 8.2 L 10/08/23 06:13: POC Glucose 111 H 10/08/23 10:54: POC Glucose 124 H 10/08/23 16:50: POC Glucose 112 H Micro: Microbiology 10/07/23 12:56 Blood Culture (Wb) - Left Hand Blood Culture - Preliminary 10/05/23 21:44 Fluid - Synovial (joint) Gram Stain - Final 10/05/23 21:44 Fluid - Synovial (joint) Body Fluid Culture - Final Staphylococcus aureus 10/05/23 21:44 Fluid - Synovial (joint) Anaerobic Culture - Preliminary Checking for anaerobes, further studies to follow. 10/06/23 18:40 Blood Culture (Wb) - Right Hand Blood Culture - Preliminary Staphylococcus aureus 10/06/23 18:00 Blood Culture (Wb) - Anticubital Left Blood Culture - Preliminary Staphylococcus aureus 10/06/23 21:30 Fluid - Synovial (joint) Gram Stain - Final 10/06/23 21:30 Fluid - Synovial (joint) Body Fluid Culture - Preliminary Staphylococcus aureus 10/06/23 17:45 Fluid - Synovial (joint) Gram Stain - Final 10/06/23 17:45 Fluid - Synovial (joint) Body Fluid Culture - Final Staphylococcus aureus 10/05/23 21:45 Blood Culture (Wb) - Anticubital Right Bacteria Detection (PCR) - Final Staphylococcus aureus 10/05/23 21:45 Blood Culture (Wb) - Anticubital Right Blood Culture - Final Staphylococcus aureus 10/05/23 21:10 Blood Culture (Wb) - Anticubital Right Blood Culture - Final Staphylococcus aureus Physical Exam Narrative RUE: NVD using arms to eat and use phone. dressings c/d/i. tolerates passive ROM LUE: NVD using arms to eat and use phone. dressings c/d/i. tolerates passive ROM Const alert and oriented x3 Assessment & Plan Assessment/Plan (1) Septic arthritis of shoulder, right: PLAN: Postop day 3 arthroscopic irrigation debridement complete synovectomy right shoulder. 1. Antibiotics: Per primary service awaiting infectious disease consultation 2. Therapy: Nonweightbearing right upper extremity okay for passive and active range of motion and strengthening against gravity as tolerated. Sling as needed. 3. Surgical wound looks appropriate remove dressing on postop day 3 4. Patient has MSSA positive cultures. management per ID 5. Dispo: will need outpatient follow up 2 weeks post op (2) Left shoulder pain: PLAN: Postop day 2 arthroscopic irrigation debridement complete synovectomy left shoulder. 1. Antibiotics: Per primary service awaiting infectious disease consultation 2. Therapy: Nonweightbearing right upper extremity okay for passive and active range of motion and strengthening against gravity as tolerated. Sling as needed. 3. Surgical wound looks appropriate remove dressing on postop day 3 4. Patient has MSSA positive cultures. management per ID 5. Dispo: will need outpatient follow up 2 weeks post op
[2023-10-08] MEDS: tiZANidine HCl 2 MG Tablet 4 MG PO (21:08)
[2023-10-08] MEDS: busPIRone 5 MG Tablet 20 MG PO (21:09)
[2023-10-08] MEDS: QUEtiapine 25 MG Tablet 75 MG PO (21:09)
[2023-10-08] MEDS: Pramipexole Di-HCl 0.5 MG Tablet PO (21:09)
[2023-10-08] MEDS: Pramipexole Di-HCl 1 MG Tablet PO (21:10)
[2023-10-09] MEDS: 0.9% Normal Saline (1000mL) 1,000 ML 100 ML IV ×3 (01:23→22:29)
[2023-10-09 03:10] VITALS: BP 92/60; PULSE 95; RESP 17; TEMP 37.4; O2SAT 94
[2023-10-09 03:28] VITALS: BMI 47.2
[2023-10-09 04:18] LABS: Bedside Glucose 98 mg/dL (74-106)
[2023-10-09] MEDS: Cefazolin 2 GM in 0.9% Normal Saline (100mL Bag) 100 ML IV ×3 (06:27→22:19)
[2023-10-09] MEDS: Acetaminophen 500 MG Tablet 1000 MG PO ×3 (06:28→22:19)
[2023-10-09] MEDS: Sucralfate 1 GM Tablet PO ×4 (06:28→22:21)
[2023-10-09 09:00] VITALS: BP 93/51; PULSE 99; RESP 18; TEMP 37.1; O2SAT 94
[2023-10-09] MEDS: Heparin Injection (Vial) 5,000 UNIT/ML VIAL 5000 UNIT SC ×2 (09:01→22:19)
[2023-10-09] MEDS: Pramipexole Di-HCl 0.25 MG Tablet 0.75 MG PO ×3 (09:01→16:33)
[2023-10-09] MEDS: fluvoxaMINE Maleate 50 MG Tablet 100 MG PO (09:01)
[2023-10-09] MEDS: buPROPion (XL) 300 MG TABLET.XL PO (09:02)
[2023-10-09] MEDS: DULoxetine Hcl 30 MG Capsule PO (09:02)
[2023-10-09] MEDS: busPIRone 5 MG Tablet 10 MG PO (09:02)
[2023-10-09] MEDS: Pantoprazole Sodium 40 MG Tablet PO ×2 (09:02→22:19)
[2023-10-09] MEDS: Buprenorphine HCl 2 MG TAB.SUBL SL (09:02)
--- NOTE | 2023-10-09 09:04 | CASEMGMT ---
Discharge Planning Follow up call made to [facility] to check on status of referral. Intake states that it wasn't received and requested it be faxed. Referral sent via fax by request. Cynthia Marcelo, Discharge Planning Asst.
[2023-10-09 10:55] LABS: Bedside Glucose 93 mg/dL (74-106)
[2023-10-09 11:31] LABS: Bedside Glucose 128 mg/dL (74-106)
--- NOTE | 2023-10-09 12:01 | CASEMGMT ---
Discharge Planning [facility] has accepted patient and precert will be started. Cynthia Marcelo, Discharge Planning Asst.
--- NOTE | 2023-10-09 12:04 | CASEMGMT ---
KAREY notified patient that [facility] can take her. Patient asked if they have private rooms. Cynthia d/c estate planning counselor called and all of their rooms are private. SW let patient know this information. Patient was in agreement. Plan: d/c to [facility] pending insurance approval and when patient is medically ready. Nimo Llanos BRAND MARKETING COORDINATOR TAMI
[2023-10-09] MEDS: oxyCODONE 5 MG Tablet 10 MG PO ×2 (12:22→22:22)
--- NOTE | 2023-10-09 12:56 | PN.ID_ITS ---
Physical Exam Narrative Feeling ok, mild nausea, some swelling in L foot, no fever Const alert and no apparent distress Resp normal air movement and clear to auscultation bilaterally Cardio regular rate and regular rhythm GI soft to palpation, non-tender and non-distended Skin no rashes or lesions noted ID ID: Route of nutrition/ use of supplements: [] Nutritional Intake: [] IV Site: [] Kamara Catheter: [] Assessment & Plan Assessment/Plan (1) Sepsis: QUALIFIERS: Sepsis type: sepsis due to unspecified organism Seps is acute organ dysfunction status: without acute organ dysfunction Qualified Code(s): A41.9 - Sepsis, unspecified organism (2) MSSA bacteremia: PLAN: Admitted 07/2023 with MSSA bacteremia due to cellulitis. Course complicated by foy hematoma, then interstitial nephritis. Was started on HD via R chest permacath at end of Aug. Came to ED, seen by ortho, taken to OR early AM 10/05 for I&D of R shoulder. Permacath removed during the day, then taken back to OR 10/05 for L shoulder I&D. Bcx with mssa. No veg seen on TTE. Will repeat bcx. Some L knee pain, will monitor. Will follow
[2023-10-09 15:00] VITALS: BP 117/57; PULSE 107; RESP 18; TEMP 36.8; O2SAT 93
--- NOTE | 2023-10-09 15:38 | CASEMGMT ---
Discharge Planning [facility] has obtained auth. SW updated. Cynthia Marcelo, Discharge Planning Asst.
--- NOTE | 2023-10-09 15:38 | CASEMGMT ---
Patient was approved by insurance to go to [facility]. Nimo Llanos STRAINER TENDER TAMI
[2023-10-09] MEDS: BENZOCAINE/MENTHOL 1 LOZENGE 2 LOZENGE MUCOUS MEM ×2 (16:34→22:29)
--- NOTE | 2023-10-09 19:07 | PN.HOSP_ITS ---
Reason for Visit Reason for Visit: Diagnoses Sepsis, unspecified organism (10/05/23) Methicillin susceptible Staphylococcus aureus infection as the cause of diseases classified elsewhere (10/05/23) Type 2 diabetes mellitus without complications (10/05/23) Morbid (severe) obesity due to excess calories (10/05/23) Arthritis due to other bacteria, right shoulder (10/05/23) Pyogenic arthritis, unspecified (10/05/23) Pain in left shoulder (10/05/23) End stage renal disease (10/05/23) Severe sepsis without septic shock (10/05/23) Bacteremia (10/05/23) Encounter for fitting and adjustment of extracorporeal dialysis catheter (10/05/23) Dependence on renal dialysis (10/05/23) Subjective Subjective Patient was seen and examined today, she is in no distress, again her blood cultures from 10/07/2023 was positive for Staph aureus, blood culture from 10/08/2023 not resulted yet. Patient was excepted at a transitional care unit in [place], I will talk to infectious diseases tomorrow about treatment and need for antibiotics in the skilled rehab setting. Objective Data Objective Data Vital Signs: Vital Signs Temp Pulse Resp BP Pulse Ox O2 Del Method O2 Flow Rate 98.2 F 107 H 18 117/57 L 93 Room Air 8 10/09/23 15:00 10/09/23 15:00 10/09/23 15:00 10/09/23 15:00 10/09/23 15:00 10/09/23 15:00 10/06/23 22:15 Oxygen Flow Rate (L/min) 8 Oxygen Delivery Method Room Air Weight: 132.7 kg Body Mass Index (BMI) 47.2 Intake & Output: Intake and Output for Last 24 Hours 10/07/23 10/08/23 10/09/23 23:59 23:59 23:59 Intake Total 3058.33 / 3158.33 3016.67 / 3216.67 3340 / 3340 Output Total 1500 / 1500 450 / 450 300 / 300 Balance 1558.33 / 1658.33 2566.67 / 2766.67 3040 / 3040 Medical Nutrition Assessment Dietitian: Malnutrition Criteria Met Start: 10/06/23 15:49 Freq: Status: Active Protocol: Document 10/06/23 15:49 AG (Rec: 10/06/23 15:49 [id number]) Nutrition Malnutrition Evidence of Malnutrition Exists Yes Malnutrition (moderate): Acute Illness/Injury Evidenced By Suboptimal Energy Intake ( Moderate),Weight Loss (Severe) Clinical Problem Acute Disease or Injury Related Malnutrition Etiology moderate, acute malnutrition related to inadequate energy intake d/t decreased appetite, recent hospitalizations Signs/Symptoms as evidenced by unintentional 12% wt loss < 1 month, estimated PO intake meeting < 75% of estimated energy needs x 1 month Status Active Problem Recommendation Dietitian Recommendations/Changes Continue cardiac, 1800 calorie controlled diet as tolerated; pt refusing ONS. May need to consider liberalizing diet if PO intake fails to improve and wt loss continues Lab / Micro Data 10/08/23 06:10 10/08/23 06:10 Labs: Laboratory Results - last 24 hr 10/08/23 21:29: POC Glucose 98 10/09/23 06:35: POC Glucose 93 10/09/23 10:58: POC Glucose 128 H Micro: Microbiology 10/06/23 17:45 Fluid - Synovial (joint) Gram Stain - Final 10/06/23 17:45 Fluid - Synovial (joint) Body Fluid Culture - Final Staphylococcus aureus 10/06/23 17:45 Fluid - Synovial (joint) Anaerobic Culture - Preliminary No growth in 48 hours. 10/07/23 12:56 Blood Culture (Wb) - Left Hand Blood Culture - Final Staphylococcus aureus 10/06/23 18:00 Blood Culture (Wb) - Anticubital Left Blood Culture - Final Staphylococcus aureus 10/06/23 21:30 Fluid - Synovial (joint) Gram Stain - Final 10/06/23 21:30 Fluid - Synovial (joint) Body Fluid Culture - Preliminary Staphylococcus aureus 10/06/23 21:30 Fluid - Synovial (joint) Anaerobic Culture - Preliminary 10/06/23 18:40 Blood Culture (Wb) - Right Hand Blood Culture - Final Staphylococcus aureus 10/05/23 21:44 Fluid - Synovial (joint) Gram Stain - Final 10/05/23 21:44 Fluid - Synovial (joint) Body Fluid Culture - Final Staphylococcus aureus 10/05/23 21:44 Fluid - Synovial (joint) Anaerobic Culture - Final No anaerobic bacteria isolated. 10/05/23 21:45 Blood Culture (Wb) - Anticubital Right Bacteria Detection (PCR) - Final Staphylococcus aureus 10/05/23 21:45 Blood Culture (Wb) - Anticubital Right Blood Culture - Final Staphylococcus aureus 10/05/23 21:10 Blood Culture (Wb) - Anticubital Right Blood Culture - Final Staphylococcus aureus Physical Exam Narrative alert, oriented x3 and no apparent distress Constitutional Narrative: Patient is morbidly obese General Appearance: cooperative, well kempt and well developed Orientation / Consciousness: awake, oriented to person, oriented to place and oriented to time HEENT normocephalic, head/scalp atraumatic and moist oral mucous membranes Eyes PERRL, EOMs intact bilaterally and conjunctivae normal Neck supple, no JVD, thyroid normal and no carotid bruits General: trachea midline Resp normal respiratory effort, no retractions, no use of accessory muscles and clear to auscultation bilaterally Auscultation: Negative for rales, rhonchi or wheezes Cardio regular rate, regular rhythm, no murmurs, no rub and no gallops GI normal to inspection, nondistended, normoactive bowel sounds, soft to palpation, non-tender and non-distended Extremity no clubbing, cyanosis or edema Neuro oriented x3, CN's II-XII intact bilaterally, no focal motor deficits and no se nsory deficits noted Sensorium / Orientation: awake and alert Speech: speech normal Psych affect normal Assessment & Plan Assessment/Plan (1) MSSA bacteremia: (2) Sepsis: QUALIFIERS: Sepsis type: sepsis due to unspecified organism Se psis acute organ dysfunction status: without acute organ dysfunction Qualified Code(s): A41.9 - Sepsis, unspecified organism PLAN: Plan 1. Sepsis secondary to Staph aureus (MSSA) from septic right shoulder and septic left shoulder-patient is now on Ancef per ID, blood cultures done on 10/07/2023 show Staph aureus #2 septic right shoulder and left shoulder from Staph aureus (MSSA)-again patient is on Ancef #3 chronic depression-patient's medications were ordered #4 rheumatoid arthritis-complicates care, medical course, recovery, and prognosis #5 morbid obesity-complicates care, medical course, recovery, and prognosis #5 type 2 diabetes-patient's blood sugars will be monitored, sliding scale insulin was ordered if needed #6 acute kidney injury-patient's creatinine was slightly elevated yesterday #7 acute moderate protein and caloric malnutrition-related to inadequate energy intake due to decreased appetite, recent hospitalizations, as evidenced by unintentional 12% weight loss over less than a month and estimated p.o. intake meeting less than 75% of estimated energy needs x 1 month-cardiac 1800-calorie controlled diet will be continued, patient is refusing to take oral nutritional supplements. Dietary is following. Total clinical time spent by myself addressing the patient's medical issues, reviewing all of her data, and collaborating with patient's care team: 35 minutes Charges/Coding Visit Charges Inpatient E&M: 18162 Subs Hosp L2
[2023-10-09 21:00] VITALS: BP 139/70; PULSE 108; RESP 17; TEMP 36.8; O2SAT 93
[2023-10-09] MEDS: Pramipexole Di-HCl 0.5 MG Tablet PO (22:20)
[2023-10-09] MEDS: busPIRone 5 MG Tablet 20 MG PO (22:20)
[2023-10-09] MEDS: QUEtiapine 25 MG Tablet 75 MG PO (22:20)
[2023-10-09] MEDS: Pramipexole Di-HCl 1 MG Tablet PO (22:20)
[2023-10-09] MEDS: tiZANidine HCl 2 MG Tablet 4 MG PO (22:22)
[2023-10-10 02:15] VITALS: BP 111/66; PULSE 110; RESP 18; TEMP 37; O2SAT 97
[2023-10-10 02:32] VITALS: BMI 45.1
[2023-10-10] MEDS: Cefazolin 2 GM in 0.9% Normal Saline (100mL Bag) 100 ML IV ×3 (07:11→20:19)
[2023-10-10] MEDS: Sucralfate 1 GM Tablet PO ×4 (07:12→20:19)
[2023-10-10] MEDS: Acetaminophen 500 MG Tablet 1000 MG PO ×3 (07:12→20:17)
[2023-10-10 08:15] LABS: Absolute Neutrophil Count 4.5 X10^3/uL (2.0-7.7); Basophil# 0.03 X10^3/uL; Basophil% 0.4 % (0-1); Eosinophil# 0.55 X10^3/uL; Eosinophils% 7.5 % (0-5); Hematocrit 26.4 % (37-47); Hemoglobin 7.4 g/dL (12.0-15.0); Lymphocyte % 21.9 % (19-41); Mean Corpuscular Hgb 23.6 pg (27.0-32.0); Mean Corpuscular Volume 84.3 fL (81-99); Mean Platelet Vol. 9.6 fl (6.2-12.0); Monocyte# 0.59 X10^3/uL; Monocyte% 8.1 % (0-10); NRBC Flagged by Analyzer 0 % (0-5); Neutrophil # 4.49 X10^3/uL (2.7-7.7); Neutrophil % 61.7 % (47-70); POSITIVE MORPHOLOGY YES; Platelet Count 323 K/mm3 (150-450); RBC Distribution Width CV 22.3 % (11.6-14.6); RBC Distribution Width SD 68.1 fl (35.1-43.9); Red Blood Count 3.13 M/mm3 (4.2-5.4); White Blood Count 7.3 K/mm3 (4.4-11.0)
[2023-10-10 08:19] LABS: Differential Indicated SCAN CRITERIA MET
[2023-10-10 08:40] VITALS: BP 109/78; PULSE 119; RESP 18; TEMP 36.7; O2SAT 94
[2023-10-10] MEDS: fluvoxaMINE Maleate 50 MG Tablet 100 MG PO (08:42)
[2023-10-10] MEDS: Heparin Injection (Vial) 5,000 UNIT/ML VIAL 5000 UNIT SC ×2 (08:42→20:18)
[2023-10-10] MEDS: DULoxetine Hcl 30 MG Capsule PO (08:42)
[2023-10-10] MEDS: Pramipexole Di-HCl 0.25 MG Tablet 0.75 MG PO ×3 (08:42→16:13)
[2023-10-10] MEDS: Buprenorphine HCl 2 MG TAB.SUBL SL (08:42)
[2023-10-10] MEDS: busPIRone 5 MG Tablet 10 MG PO (08:42)
[2023-10-10] MEDS: buPROPion (XL) 300 MG TABLET.XL PO (08:42)
[2023-10-10] MEDS: Pantoprazole Sodium 40 MG Tablet PO ×2 (08:43→20:18)
[2023-10-10] MEDS: oxyCODONE 5 MG Tablet 10 MG PO ×2 (08:47→20:22)
[2023-10-10 09:03] LABS: ALB/GLOB Ratio 0.3 RATIO (0.9-2.4); AST(SGOT) 11 U/L (15-37); Alanine Aminotransfer ALT/SGPT < 6 U/L (13-56); Albumin, Serum 1.6 g/dL (3.2-5.0); Alkaline Phosphatase 106 U/L (45-117); Anion Gap 9 (5-15); BUN 7 mg/dL (7-18); BUN/Creat Ratio 6.2 RATIO (10-20); Calcium,Total 8.7 mg/dL (8.5-10.1); Chloride 112 mmol/L (98-107); Creatinine, Serum 1.13 mg/dL (0.55-1.02); EST Glomerular Filtration Rate 54 mL/min (>60); Est Glom Filt Rate - Afr Amer 65 mL/min (>60); Estimated Creatinine Clearance 79.38 ml/min; Globulin 4.6 g/dL (2.2-4.2); Glucose 102 mg/dL (74-106); Potassium 3.7 mmol/L (3.5-5.1); Protein, Total 6.2 g/dL (6.4-8.2); Sodium Level 140 mmol/L (136-145)
[2023-10-10 09:33] LABS: Anisocytosis 1+
[2023-10-10] MEDS: 0.9% Normal Saline (1000mL) 1,000 ML 100 ML IV ×2 (11:25→20:20)
[2023-10-10] MEDS: Ferrous Sulfate 325 MG Tablet PO (11:26)
--- NOTE | 2023-10-10 14:33 | PCM.PN.ID ---
Physical Exam Narrative Feeling better, no fever, no n/v/d. Const alert and no apparent distress General Appearance: cooperative Resp normal air movement and clear to auscultation bilaterally Cardio regular rate and regular rhythm GI soft to palpation, non-tender and non-distended Skin no rashes or lesions noted ID ID: Route of nutrition/ use of supplements: [] Nutritional Intake: [] IV Site: [] Kamara Catheter: [] Assessment & Plan Assessment/Plan (1) Sepsis: QUALIFIERS: Sepsis type: sepsis due to unspecified organism Sepsis acute organ dysfunction status: without acute organ dysfunction Qualified Code(s): A41.9 - Sepsis, unspecified organism (2) MSSA bacteremia: PLAN: Admitted 07/2023 with MSSA bacteremia due to cellulitis. Course complicated by foy hematoma, then interstitial nephritis. Was started on HD via R chest permacath at end of Aug. Came to ED, seen by ortho, taken to OR early AM 10/05 for I&D of R shoulder. Permacath removed during the day, then taken back to OR 10/05 for L shoulder I&D. Bcx with mssa. No veg seen on TTE. Bcx neg since 10/07. If that bcx stays neg, plan on single-lumen picc and 6 weeks iv cefazolin, stop date 11/19/23 with weekly labs and ID followup in 2-3 weeks. Will follow, d/w Dr. Nash
[2023-10-10 14:40] VITALS: BP 118/76; PULSE 116; RESP 18; TEMP 36.7; O2SAT 95
--- NOTE | 2023-10-10 18:20 | PCM.PN.HOSP ---
Reason for Visit Reason for Visit: Diagnoses Sepsis, unspecified organism (10/05/23) Methicillin susceptible Staphylococcus aureus infection as the cause of diseases classified elsewhere (10/05/23) Type 2 diabetes mellitus without complications (10/05/23) Morbid (severe) obesity due to excess calories (10/05/23) Arthritis due to other bacteria, right shoulder (10/05/23) Pyogenic arthritis, unspecified (10/05/23) Pain in left shoulder (10/05/23) End stage renal disease (10/05/23) Severe sepsis without septic shock (10/05/23) Bacteremia (10/05/23) Encounter for fitting and adjustment of extracorporeal dialysis catheter (10/05/23) Dependence on renal dialysis (10/05/23) Subjective Subjective Patient was seen and examined today, she voices no complaints to this examiner, I talked with infectious diseases about her care, they would like to see 2 negative blood cultures before she has a PICC line placed, I will review her blood culture results tomorrow morning. Patient again has been accepted at a transitional care unit in [place]. Objective Data Objective Data Vital Signs: Vital Signs Temp Pulse Resp BP Pulse Ox O2 Del Method O2 Flow Rate 98.1 F 116 H 18 118/76 95 Room Air 2 10/10/23 14:40 10/10/23 14:40 10/10/23 14:40 10/10/23 14:40 10/10/23 14:40 10/10/23 14:40 10/10/23 02:15 Oxygen Flow Rate (L/min) 2 Oxygen Delivery Method Room Air Weight: 126.9 kg Body Mass Index (BMI) 45.1 Intake & Output: Intake and Output for Last 24 Hours 10/08/23 10/09/23 10/10/23 23:59 23:59 23:59 Intake Total 3016.67 / 3216.67 4450 / 4550 1680 / 1680 Output Total 450 / 450 300 / 300 0 / 0 Balance 2566.67 / 2766.67 4150 / 4250 1680 / 1680 Medical Nutrition Assessment Dietitian: Malnutrition Criteria Met Start: 10/06/23 15:49 Freq: Status: Active Protocol: Document 10/06/23 15:49 AG (Rec: 10/06/23 15:49 AG [id number]) Nutrition Malnutrition Evidence of Malnutrition Exists Yes Malnutrition (moderate): Acute Illness/Injury Evidenced By Suboptimal Energy Intake ( Moderate),Weight Loss (Severe) Clinical Problem Acute Disease or Injury Related Malnutrition Etiology moderate, acute malnutrition related to inadequate energy intake d/t decreased appetite, recent hospitalizations Signs/Symptoms as evidenced by unintentional 12% wt loss < 1 month, estimated PO intake meeting < 75% of estimated energy needs x 1 month Status Active Problem Recommendation Dietitian Recommendations/Changes Continue cardiac, 1800 calorie controlled diet as tolerated; pt refusing ONS. May need to consider liberalizing diet if PO intake fails to improve and wt loss continues Lab / Micro Data 10/10/23 08:00 10/10/23 08:00 Labs: Laboratory Results - last 24 hr 10/10/23 08:00: WBC 7.3, RBC 3.13 L, Hgb 7.4 L, Hct 26.4 L, MCV 84.3, MCH 23.6 L, MCHC 28.0 L, RDW Std Deviation 68.1 H, RDW Coeff of Chepe 22.3 H, Plt Count 323, MPV 9.6, Immature Gran % (Auto) 0.400, Neut % (Auto) 61.7, Lymph % (Auto) 21.9, [place] % (Auto) 8.1, Eos % (Auto) 7.5 H, Baso % (Auto) 0.4, Absolute Neuts (auto) 4.5, Absolute Lymphs (auto) 1.60, Nucleated RBC % 0, Anisocytosis 1+, Sodium 140, Potassium 3.7, Chloride 112 H, Carbon Dioxide 19.0 L, Anion Gap 9, BUN 7, Creatinine 1.13 H, Estim Creat Clear Calc 79.38, Est GFR (MDRD) Af Amer 65, Est GFR (MDRD) Non-Af 54 L, BUN/Creatinine Ratio 6.2 L, Glucose 102, Calcium 8.7, Total Bilirubin 0.60, AST 11 L, ALT < 6 L, Alkaline Phosphatase 106, Total Protein 6.2 L, Albumin 1.6 L, Globulin 4.6 H, Albumin/Globulin Ratio 0.3 L Micro: Microbiology 10/06/23 21:30 Fluid - Synovial (joint) Gram Stain - Final 10/06/23 21:30 Fluid - Synovial (joint) Body Fluid Culture - Preliminary Staphylococcus aureus 10/06/23 21:30 Fluid - Synovial (joint) Anaerobic Culture - Final No anaerobic bacteria isolated. 10/06/23 17:45 Fluid - Synovial (joint) Gram Stain - Final 10/06/23 17:45 Fluid - Synovial (joint) Body Fluid Culture - Final Staphylococcus aureus 10/06/23 17:45 Fluid - Synovial (joint) Anaerobic Culture - Preliminary No growth in 48 hours. 10/07/23 12:56 Blood Culture (Wb) - Left Hand Blood Culture - Final Staphylococcus aureus 10/06/23 18:00 Blood Culture (Wb) - Anticubital Left Blood Culture - Final Staphylococcus aureus 10/06/23 18:40 Blood Culture (Wb) - Right Hand Blood Culture - Final Staphylococcus aureus 10/05/23 21:44 Fluid - Synovial (joint) Gram Stain - Final 10/05/23 21:44 Fluid - Synovial (joint) Body Fluid Culture - Final Staphylococcus aureus 10/05/23 21:44 Fluid - Synovial (joint) Anaerobic Culture - Final No anaerobic bacteria isolated. 10/05/23 21:45 Blood Culture (Wb) - Anticubital Right Bacteria Detection (PCR) - Final Staphylococcus aureus 10/05/23 21:45 Blood Culture (Wb) - Anticubital Right Blood Culture - Final Staphylococcus aureus 10/05/23 21:10 Blood Culture (Wb) - Anticubital Right Blood Culture - Final Staphylococcus aureus Physical Exam Narrative alert, oriented x3 and no apparent distress Constitutional Narrative: Patient is morbidly obese General Appearance: cooperative, well kempt and well developed Orientation / Consciousness: awake, oriented to person, oriented to place and oriented to time HEENT normocephalic, head/scalp atraumatic and moist oral mucous membranes Eyes PERRL, EOMs intact bilaterally and conjunctivae normal Neck supple, no JVD, thyroid normal and no carotid bruits General: trachea midline Resp normal respiratory effort, no retractions, no use of accessory muscles and clear to auscultation bilaterally Auscultation: Negative for rales, rhonchi or wheezes Cardio regular rate, regular rhythm, no murmurs, no rub and no gallops GI normal to inspection, nondistended, normoactive bowel sounds, soft to palpation, non-tender and non-distended Extremity no clubbing, cyanosis or edema Neuro oriented x3, CN's II-XII intact bilaterally, no focal motor deficits and no sensory deficits noted Sensorium / Orientation: awake and alert Speech: speech normal Psych affect normal Assessment & Plan Assessment/Plan (1) MSSA bacteremia: (2) Sepsis: QUALIFIERS: Sepsis type: sepsis due to unspecified organism Sepsis acute organ dysfunction status: without acute organ dysfunction Qualified Code(s): A41.9 - Sepsis, unspecified organism PLAN: Plan 1. Sepsis secondary to Staph aureus (MSSA) from septic right shoulder and septic left shoulder-patient is now on Ancef per ID, blood cultures done on 10/07/2023 show Staph aureus #2 septic right shoulder and left shoulder from Staph aureus (MSSA)-again patient is on Ancef #3 chronic depression-patient's medications were ordered #4 rheumatoid arthritis-complicates care, medical course, recovery, and prognosis #5 morbid obesity-complicates care, medical course, recovery, and prognosis #5 type 2 diabetes-patient's blood sugars will be monitored, sliding scale insulin was ordered if needed #6 acute kidney injury-patient's creatinine was slightly elevated yesterday #7 acute moderate protein and caloric malnutrition-related to inadequate energy intake due to decreased appetite, recent hospitalizations, as evidenced by unintentional 12% weight loss over less than a month and estimated p.o. intake meeting less than 75% of estimated energy needs x 1 month-cardiac 1800-calorie controlled diet will be continued, patient is refusing to take oral nutritional supplements. Dietary is following. Total clinical time spent by myself addressing the patient's medical issues, reviewing all of her data, and collaborating with patient's care team: 35 minutes Charges/Coding Visit Charges Inpatient E&M: 85967 Subs Hosp L2
[2023-10-10] MEDS: QUEtiapine 25 MG Tablet 75 MG PO (20:18)
[2023-10-10] MEDS: busPIRone 5 MG Tablet 20 MG PO (20:19)
[2023-10-10] MEDS: Pramipexole Di-HCl 1 MG Tablet PO (20:19)
[2023-10-10] MEDS: Pramipexole Di-HCl 0.5 MG Tablet PO (20:19)
[2023-10-10] MEDS: tiZANidine HCl 2 MG Tablet 4 MG PO (20:20)
[2023-10-10 20:40] VITALS: BP 123/74; PULSE 106; RESP 16; TEMP 37.2; O2SAT 95
[2023-10-11 04:00] VITALS: BP 120/71; PULSE 100; RESP 16; TEMP 36.6; O2SAT 96
[2023-10-11] MEDS: Acetaminophen 500 MG Tablet 1000 MG PO ×2 (05:22→14:08)
[2023-10-11] MEDS: 0.9% Normal Saline (1000mL) 1,000 ML 100 ML IV (05:22)
[2023-10-11] MEDS: Sucralfate 1 GM Tablet PO ×3 (05:22→16:11)
[2023-10-11] MEDS: Cefazolin 2 GM in 0.9% Normal Saline (100mL Bag) 100 ML IV ×2 (05:22→15:16)
[2023-10-11 08:11] VITALS: BP 118/80; PULSE 108; RESP 18; TEMP 36.4; O2SAT 95
[2023-10-11] MEDS: Pramipexole Di-HCl 0.25 MG Tablet 0.75 MG PO ×3 (08:12→16:11)
[2023-10-11] MEDS: Buprenorphine HCl 2 MG TAB.SUBL SL (08:12)
[2023-10-11] MEDS: Pantoprazole Sodium 40 MG Tablet PO (08:13)
[2023-10-11] MEDS: fluvoxaMINE Maleate 50 MG Tablet 100 MG PO (08:13)
[2023-10-11] MEDS: DULoxetine Hcl 30 MG Capsule PO (08:13)
[2023-10-11] MEDS: busPIRone 5 MG Tablet 10 MG PO (08:13)
[2023-10-11] MEDS: buPROPion (XL) 300 MG TABLET.XL PO (08:14)
[2023-10-11] MEDS: Heparin Injection (Vial) 5,000 UNIT/ML VIAL 5000 UNIT SC (08:14)
[2023-10-11 08:24] VITALS: PULSE 108; O2SAT 95
[2023-10-11] MEDS: Furosemide 40 MG Tablet PO (09:15)
[2023-10-11 11:10] VITALS: BP 148/69; PULSE 113; RESP 18; TEMP 36.7; O2SAT 97
--- NOTE | 2023-10-11 13:46 | PCM.TXEXTCAR ---
Diet Diet Order/Speech Therapy: 10/07/23 07:22 Diet: Carbohydrate Controlled 1800 [email or web address] Is pt able to select menu?: Yes Routine Orders/Code Status Code Status: Full Code Wound(s) LLE: Wound Type: Stasis Ulcer Dressing Change: AntiMicrobial (Aquacel AG, etc) rt shoulder: Wound Type: 2 small incisions Dressing Change: xeroform left shoulder: Wound Type: 3 small incisions Dressing Change: xeroform with dry dressing Therapies Weight Bearing: Full weight bearing Physical Therapy: Eval and Treat Occupational Therapy: Eval and Treat Narrative: Range of motion only to shoulders, okay to use upper extremities for walker, leave incision areas over shoulders open Problem/Diagnosis (1) MSSA bacteremia: Status: Acute Code(s): R78.81 - Bacteremia; B95.61 - Methicillin susceptible Staphylococcus aureus infection as the cause of diseases classified elsewhere (2) Sepsis: Status: Acute Code(s): A41.9 - Sepsis, unspecified organism (3) Septic arthritis of shoulder, right: Status: Acute Code(s): M00.9 - Pyogenic arthritis, unspecified Plan 1. Sepsis secondary to Staph aureus (MSSA) from septic right shoulder and septic left shoulder-patient is now on Ancef per ID, blood cultures done on 10/07/2023 show Staph aureus #2 septic right shoulder and left shoulder from Staph aureus (MSSA)-again patient is on Ancef #3 chronic depression-patient's medications were ordered #4 rheumatoid arthritis-complicates care, medical course, recovery, and prognosis #5 morbid obesity-complicates care, medical course, recovery, and prognosis #5 type 2 diabetes-patient's blood sugars will be monitored, sliding scale insulin was ordered if needed #6 acute kidney injury-patient's creatinine was slightly elevated yesterday #7 acute moderate protein and caloric malnutrition-related to inadequate energy intake due to decreased appetite, recent hospitalizations, as evidenced by unintentional 12% weight loss over less than a month and estimated p.o. intake meeting less than 75% of estimated energy needs x 1 month-cardiac 1800-calorie controlled diet will be continued, patient is refusing to take oral nutritional supplements. Dietary is following. Total clinical time spent by myself addressing the patient's medical issues, reviewing all of her data, and collaborating with patient's care team: 35 minutes Allergies/Procedures Done in Hospital Allergies adhesive tape Adverse Reaction (Verified 10/05/23 19:17) Rash Procedures: - (Diagnostic arthroscopy left shoulder with irrigation and debridement-10/06/2023, diagnostic arthroscopy with irrigation and debridement of right shoulder-10/06/2023) Type of Care/Length of Stay Estimated LOS: Convalescent Care Less Than 30 days Type of Care Needed: Skilled Rehab Potential: Good Prognosis: Good Additional Orders/Day of Discharge H&P will serve as current which was dated: 10/05/23 Day of Discharge: 10/11/23 Dietary and Speech Recommendations Dietitian Recommendations/Changes: Continue cardiac, 1800 calorie controlled diet as tolerated; pt refusing ONS. May need to consider liberalizing diet if PO intake fails to improve and wt loss continues Discharge Plan Admission Admit Date/Time: 10/05/23 23:14 Primary Reason for Your Visit: Bilateral septic shoulders, MSSA bacteremia Attending Provider: Mumtaz Nash Primary Care Provider: Tarah Dubon Consulting Providers: Mumtaz Nash; Abhishek Buchanan; Robb Chisholm; Gavin Benito Discharge Orders/Prescriptions Prescriptions: New cefazolin 2 gram recon soln 2 g IV Q8H 40 Days Rx Instructions: stop date 11/19/23. Dx: MSSA bacteremia. Weekly bmp, cbc, and esr. Fax to [phone]. Routine picc care per protocol. quetiapine 25 mg Tablet 75 mg PO QHS Qty: 0 0RF tizanidine 2 mg Tablet 4 mg PO QHS Qty: 0 0RF sucralfate 1 gram Tablet 1 g PO 1HR_ACHS Qty: 0 0RF acetaminophen 500 mg Tablet 1,000 mg PO Q8 Qty: 0 0RF lorazepam 1 mg Tablet 1 mg PO Q6H PRN PRN (Reason: Anxiety) Qty: 10 0RF Chloraseptic Sore Throat 6-10 mg Lozenge 2 tim mucous membrane Q2H PRN PRN (Reason: SORE THROAT) Qty: 0 0RF pramipexole 1 mg Tablet 1 mg PO QHS Qty: 1 0RF pramipexole 0.5 mg Tablet 0.5 mg PO QHS Qty: 1 0RF oxycodone 5 mg Tablet 10 mg PO Q4H PRN PRN (Reason: Pain Score 6-10) 2 Days Qty: 20 0RF Continued bupropion HCl 300 MG tablet extended release 24 hr 300 mg PO DAILY Xarelto 20 mg tablet 20 mg PO DAILY Hold Instructions: Resume on 08/25/23. Patient Comments: TAKE 1 TABLET BY MOUTH EVERY DAY WITH SUPPER fluvoxamine 100 mg tablet 100 mg PO DAILY buspirone 10 mg tablet 10 mg PO DAILY Patient Comments: TAKE 1 TABLET BY MOUTH EVERY MORNING AND TAKE 2 TABLETS BY MOUTH AT BEDTIME buspirone 10 mg tablet 20 mg PO QHS Patient Comments: TAKE 1 TABLET BY MOUTH EVERY MORNING AND TAKE 2 TABLETS BY MOUTH AT BEDTIME atenolol 50 mg tablet 50 mg PO DAILY Patient Comments: TAKE 1 TABLET BY MOUTH EVERY DAY pantoprazole 40 mg Tablet,Delayed Release (Dr/Ec) 40 mg PO BID Qty: 60 2RF duloxetine 30 mg capsule,delayed release(DR/EC) 30 mg PO DAILY pramipexole 0.75 mg tablet 0.75 mg PO TID acetaminophen 325 mg Tablet 1,000 mg PO Q8H PRN PRN (Reason: Fever, pain 1-10/10) Qty: 0 0RF ferrous sulfate [FeroSul] 325 mg (65 mg iron) Tablet 325 mg PO QODAY@1200 Qty: 0 0RF Discontinued Actemra 162 mg/0.9 mL syringe 162 mg subcut .weekly Hold Instructions: Pt is ill Rexulti 1 mg tablet 1 mg PO DAILY Patient Comments: TAKE 1 TABLET BY MOUTH EVERY DAY biotin 1 ea PO/SL DAILY quetiapine 25 mg tablet 25 mg PO .at bedtime Ozempic 0.25 mg or 0.5 mg (2 mg/3 mL) pen injector 0.5 mg SUBCUT QWEEK Hold Instructions: Pt is ill buprenorphine HCl [Belbuca] 150 mcg film 150 mcg BUCCAL Q12H 3 Days Qty: 6 0RF prednisone 20 mg Tablet 60 mg PO BREAKFAST Qty: 42 0RF No Action ropinirole 2 MG tablet extended release 24 hr 2 mg PO QHS sucralfate 1 gram tablet 1 g PO Q6H Qty: 120 1RF Hold Instructions: Pt is ill quetiapine 50 mg tablet 50 mg PO QHS tizanidine 4 mg tablet 4 mg PO QHS Referrals / Follow Up: Juan Arndt MD [Med Staff - Consulting] - See Referral Note (Call office for follow-up appointment in the next 2 to 3 weeks) Tarah Dubon DO [Primary Care Provider] - Disposition Disposition (needs filled in before D/C Order can be placed): Longterm Facility (2) Sepsis Qualifiers: Sepsis type: sepsis due to unspecified organism Sepsis acute organ dysfunction status: without acute organ dysfunction Qualified Code(s): A41.9 - Sepsis, unspecified organism
[2023-10-11] MEDS: oxyCODONE 5 MG Tablet 10 MG PO (14:08)
[2023-10-11] MEDS: 0.9% Saline Lock 10 ML Syringe IV (14:09)
--- NOTE | 2023-10-11 14:40 | DS.PCM_ITS ---
Providers Date of Admission: 10/05/23 Date of Discharge: 10/11/23 Primary Care Physician: Dr. Tarah Dubon, Consultations 10/06/23 01:42 Consult: Refuge Worker / Pulmonary Medicine Routine Consulting Provider: Intensivists/Pulmonary Med Reason for Consult: Sepsis with Septic Arthrits of the Left Shoulder. 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 Routine Comment: 10/06/23 11:28 Consult: General Surgery Routine Consulting Provider: Robb Chisholm Reason for Consult: Removal of tunneled dialysis catheter EMERGENT Consult: No MD Notified: Yes Date Notified: 10/06/23 Time Notified: 11:29 Method of Notification: Verbal 10/07/23 07:55 Consult: Infectious Disease Routine Consulting Provider: Gavin Benito Reason for Consult: septic arthritis EMERGENT Consult: No MD Notified: Yes Date Notified: 10/07/23 Time Notified: 07:56 Method of Notification: Verbal Reason For Visit: cellulitis Diagnosis Discharge Diagnosis (1) MSSA bacteremia: Status: Acute Code(s): R78.81 - Bacteremia; B95.61 - Methicillin susceptible Staphylococcus aureus infection as the cause of diseases classified elsewhere (2) Sepsis: Status: Acute Code(s): A41.9 - Sepsis, unspecified organism Qualifiers: Sepsis acute organ dysfunction status: without acute organ dysfunction Sepsis type: sepsis due to unspecified organism Qualified Code(s): A41.9 - S epsis, unspecified organism (3) Septic arthritis of shoulder, right: Status: Acute Code(s): M00.9 - Pyogenic arthritis, unspecified Plan 1. Sepsis secondary to Staph aureus (MSSA) from septic right shoulder and septic left shoulder-patient is now on Ancef per ID, blood cultures done on 10/07/2023 show Staph aureus #2 septic right shoulder and left shoulder from Staph aureus (MSSA)-again patient is on Ancef #3 chronic depression-patient's medications were ordered #4 rheumatoid arthritis-complicates care, medical course, recovery, and prognosis #5 morbid obesity-complicates care, medical course, recovery, and prognosis #5 type 2 diabetes-patient's blood sugars will be monitored, sliding scale insulin was ordered if needed #6 acute kidney injury-patient's creatinine was slightly elevated yesterday #7 acute moderate protein and caloric malnutrition-related to inadequate energy intake due to decreased appetite, recent hospitalizations, as evidenced by unintentional 12% weight loss over less than a month and estimated p.o. intake meeting less than 75% of estimated energy needs x 1 month-cardiac 1800-calorie controlled diet will be continued, patient is refusing to take oral nutritional supplements. Dietary is following. Total clinical time spent by myself addressing the patient's medical issues, reviewing all of her data, and collaborating with patient's care team: 35 minutes Medications at Discharge Home Medications bupropion HCl 300 mg 24 hr tablet, extended release 300 mg PO DAILY mental health 08/25/18 ropinirole 2 mg tablet,extended release 24 hr 2 mg PO QHS restless legs 08/25/18 rivaroxaban 20 mg tablet (Xarelto) 20 mg PO DAILY blood thinner 06/01/22 atenolol 50 mg tablet 50 mg PO DAILY HEART 09/21/22 buspirone 10 mg tablet 10 mg PO DAILY ANXIETY 09/21/22 buspirone 10 mg tablet 20 mg PO QHS ANXIETY 09/21/22 fluvoxamine 100 mg tablet 100 mg PO DAILY MENTAL HEALTH 09/21/22 pantoprazole 40 mg tablet,delayed release 40 mg PO BID reflux #60 tabs 10/26/22 sucralfate 1 gram tablet 1 g PO Q6H reflux #120 tabs 10/26/22 duloxetine 30 mg capsule,delayed release 30 mg PO DAILY mental health 06/29/23 quetiapine 50 mg tablet 50 mg PO QHS sleep 06/29/23 tizanidine 4 mg tablet 4 mg PO QHS spasms 06/29/23 pramipexole 0.75 mg tablet 0.75 mg PO TID restless leg 08/17/23 acetaminophen 325 mg tablet 1,000 mg (3.0769 x 325 mg) PO Q8H PRN PRN Fever, pain 1-04/30 #0 tabs 08/23/23 ferrous sulfate 325 mg (65 mg iron) tablet (FeroSul) 325 mg PO QODAY@1200 anemia #0 tabs 08/23/23 cefazolin 2 gram intravenous solution 2 g IV Q8H 40 days 10/10/23 acetaminophen 500 mg tablet 1,000 mg (2 x 500 mg) PO Q8 #0 tabs 10/11/23 benzocaine 6 mg-menthol 10 mg lozenges (Chloraseptic Sore Throat) 2 tim mucous membrane Q2H PRN PRN SORE THROAT #0 ea 10/11/23 fluconazole 100 mg tablet (Diflucan) 100 mg PO DAILY #7 tabs 10/11/23 lorazepam 1 mg tablet 1 mg PO Q6H PRN PRN Anxiety #10 tabs 10/11/23 oxycodone 5 mg tablet 10 mg (2 x 5 mg) PO Q4H PRN PRN Pain Score 6-10 2 days #20 tabs 10/11/23 pramipexole 0.5 mg tablet 0.5 mg PO QHS #1 TAB 10/11/23 pramipexole 1 mg tablet 1 mg PO QHS #1 TAB 10/11/23 quetiapine 25 mg tablet 75 mg (3 x 25 mg) PO QHS #0 tabs 10/11/23 sucralfate 1 gram tablet 1 g PO 1HR_ACHS #0 tabs 10/11/23 tizanidine 2 mg tablet 4 mg (2 x 2 mg) PO QHS #0 tabs 10/11/23 Hospital Course Operations - (Diagnostic arthroscopy of the left shoulder and right shoulder with irrigation and debridement) Procedures PICC line placement Summary of Care Provided Minutes Spent on Discharge: 33 Hospital Course: This 52-year-old white female was seen in the emergency room at [facility] with complaints of bilateral pain in her shoulder areas along with fever and chills. Patient had recently been hospitalized for acute renal failure, shortly before this hospitalization she was treated for MSSA bacteremia and given antibiotics. Patient is no longer undergoing dialysis. She does have a tunneled dialysis catheter present. Workup in the emergency room revealed her lactic acid to be elevated, she had a leukocytosis, and she had a temperature. Chemistry profile showed an elevated creatinine of 1.55 and a BUN of 28. Patient's x-ray of her shoulders showed moderate acromioclavicular joint arthrosis and no evidence of fracture or dislocation, patient's lactic acid level was elevated. Orthopedic surgery was contacted and elected to take the patient for emergent surgery to clean out her right shoulder which they felt was infected, copious amounts of purulent material was drained from the shoulder, patient was admitted to ICU and placed on IV antibiotics. Later on that same day, patient described increasing left shoulder pain, was reevaluated by orthopedic surgery and felt to have a septic left shoulder joint, she then underwent another surgery for drainage and debridement of her left shoulder. Postop patient did well, she did not have an increase in her BUN and creatinine, she was eventually seen by infectious diseases, cultures grew out MSSA. Blood cultures ultimately were negative, at this point a PICC line was inserted, patient had been seen by PT and OT and she consented to go to a short-term senior care facility in [facility]. On 10/11/2023, patient was seen and examined: On examination she appeared in good health and spirits, she does not appear to be in any distress. Vital signs as documented. Skin warm and dry and without overt rashes. Neck without JVD, thyroid appears normal, trachea is midline, neck is supple. Lungs clear, normal air movement was noted. Heart exam notable for regular rhythm, normal sounds and absence of murmurs, rubs or gallops. Abdomen unremarkable and without evidence of organomegaly, masses, or abdominal aortic enlargement, bowel sounds are present in all 4 quadrants, no abdominal tenderness was noted. Extremities there was moderate lower leg edema noted bilaterally, no cyanosis was noted, no clubbing was noted. Neuro: Cranial nerves II through XII are grossly intact, no focal motor deficits were noted, sensation to light touch and pinprick is intact, motor exam 5/5 throughout. Psych: Patient is alert and oriented x3, she does not appear anxious or depressed, she does not appear agitated. Patient was transferred to a transitional care unit in [facility] on 10/11/2023 in stable condition Medical Records Data Medical Nutrition Assessment Dietitian: Malnutrition Criteria Met Start: 10/06/23 15:49 Freq: Status: Active Protocol: Document 10/06/23 15:49 AG (Rec: 10/06/23 15:49 AG [id number]) Nutrition Malnutrition Evidence of Malnutrition Exists Yes Malnutrition (moderate): Acute Illness/Injury Evidenced By Suboptimal Energy Intake ( Moderate),Weight Loss (Severe) Clinical Problem Acute Disease or Injury Related Malnutrition Etiology moderate, acute malnutrition related to inadequate energy intake d/t decreased appetite, recent hospitalizations Signs/Symptoms as evidenced by unintentional 12% wt loss < 1 month, estimated PO intake meeting < 75% of estimated energy needs x 1 month Status Active Problem Recommendation Dietitian Recommendations/Changes Continue cardiac, 1800 calorie controlled diet as tolerated; pt refusing ONS. May need to consider liberalizing diet if PO intake fails to improve and wt loss continues Weight / BMI Weight Weight: 126.9 kg Body Mass Index (BMI) 45.1 ABG / Lab / Microbiology Data 10/10/23 08:00 10/10/23 08:00 Microbiology: Microbiology 10/09/23 13:28 Blood Culture (Wb) - Right Forearm Blood Culture - Preliminary No growth in 48 hours. 10/06/23 21:30 Fluid - Synovial (joint) Gram Stain - Final 10/06/23 21:30 Fluid - Synovial (joint) Body Fluid Culture - Final Staphylococcus aureus 10/06/23 21:30 Fluid - Synovial (joint) Anaerobic Culture - Final No anaerobic bacteria isolated. 10/08/23 06:10 Blood Culture (Wb) - Right Hand Blood Culture - Preliminary No growth in 48 hours. 10/06/23 17:45 Fluid - Synovial (joint) Gram Stain - Final 10/06/23 17:45 Fluid - Synovial (joint) Body Fluid Culture - Final Staphylococcus aureus 10/06/23 17:45 Fluid - Synovial (joint) Anaerobic Culture - Preliminary No growth in 48 hours. 10/07/23 12:56 Blood Culture (Wb) - Left Hand Blood Culture - Final Staphylococcus aureus 10/06/23 18:00 Blood Culture (Wb) - Anticubital Left Blood Culture - Final Staphylococcus aureus 10/06/23 18:40 Blood Culture (Wb) - Right Hand Blood Culture - Final Staphylococcus aureus 10/05/23 21:44 Fluid - Synovial (joint) Gram Stain - Final 10/05/23 21:44 Fluid - Synovial (joint) Body Fluid Culture - Final Staphylococcus aureus 10/05/23 21:44 Fluid - Synovial (joint) Anaerobic Culture - Final No anaerobic bacteria isolated. 10/05/23 21:45 Blood Culture (Wb) - Anticubital Right Bacteria Detection (PCR) - Final Staphylococcus aureus 10/05/23 21:45 Blood Culture (Wb) - Anticubital Right Blood Culture - Final Staphylococcus aureus 10/05/23 21:10 Blood Culture (Wb) - Anticubital Right Blood Culture - Final Staphylococcus aureus Meaningful Use Info Meaningful Use Diagnoses (Choose all that apply): None applicable Discharge Plan Admission Admit Date/Time: 10/05/23 23:14 Primary Reason for Your Visit: Bilateral septic shoulders, MSSA bacteremia Attending Provider: Mumtaz Nash Primary Care Provider: Tarah Dubon Consulting Providers: Mumtaz Nash; Abhishek Buchanan; Robb Chisholm; Gavin Benito Discharge Orders/Prescriptions Prescriptions: New cefazolin 2 gram recon soln 2 g IV Q8H 40 Days Rx Instructions: stop date 11/19/23. Dx: MSSA bacteremia. Weekly bmp, cbc, and esr. Fax to [phone]. Routine picc care per protocol. quetiapine 25 mg Tablet 75 mg PO QHS Qty: 0 0RF tizanidine 2 mg Tablet 4 mg PO QHS Qty: 0 0RF sucralfate 1 gram Tablet 1 g PO 1HR_ACHS Qty: 0 0RF acetaminophen 500 mg Tablet 1,000 mg PO Q8 Qty: 0 0RF lorazepam 1 mg Tablet 1 mg PO Q6H PRN PRN (Reason: Anxiety) Qty: 10 0RF Chloraseptic Sore Throat 6-10 mg Lozenge 2 tim mucous membrane Q2H PRN PRN (Reason: SORE THROAT) Qty: 0 0RF pramipexole 1 mg Tablet 1 mg PO QHS Qty: 1 0RF pramipexole 0.5 mg Tablet 0.5 mg PO QHS Qty: 1 0RF oxycodone 5 mg Tablet 10 mg PO Q4H PRN PRN (Reason: Pain Score 6-10) 2 Days Qty: 20 0RF fluconazole [Diflucan] 100 mg tablet 100 mg PO DAILY Qty: 7 0RF Rx Instructions: 1 daily for 7 days starting 10/12/2023 Continued bupropion HCl 300 MG tablet extended release 24 hr 300 mg PO DAILY Xarelto 20 mg tablet 20 mg PO DAILY Hold Instructions: Resume on 08/25/23. Patient Comments: TAKE 1 TABLET BY MOUTH EVERY DAY WITH SUPPER fluvoxamine 100 mg tablet 100 mg PO DAILY buspirone 10 mg tablet 10 mg PO DAILY Patient Comments: TAKE 1 TABLET BY MOUTH EVERY MORNING AND TAKE 2 TABLETS BY MOUTH AT BEDTIME buspirone 10 mg tablet 20 mg PO QHS Patient Comments: TAKE 1 TABLET BY MOUTH EVERY MORNING AND TAKE 2 TABLETS BY MOUTH AT BEDTIME atenolol 50 mg tablet 50 mg PO DAILY Patient Comments: TAKE 1 TABLET BY MOUTH EVERY DAY pantoprazole 40 mg Tablet,Delayed Release (Dr/Ec) 40 mg PO BID Qty: 60 2RF duloxetine 30 mg capsule,delayed release(DR/EC) 30 mg PO DAILY pramipexole 0.75 mg tablet 0.75 mg PO TID acetaminophen 325 mg Tablet 1,000 mg PO Q8H PRN PRN (Reason: Fever, pain 1-04/30) Qty: 0 0RF ferrous sulfate [FeroSul] 325 mg (65 mg iron) Tablet 325 mg PO QODAY@1200 Qty: 0 0RF Discontinued Actemra 162 mg/0.9 mL syringe 162 mg subcut .weekly Hold Instructions: Pt is ill Rexulti 1 mg tablet 1 mg PO DAILY Patient Comments: TAKE 1 TABLET BY MOUTH EVERY DAY biotin 1 ea PO/SL DAILY quetiapine 25 mg tablet 25 mg PO .at bedtime Ozempic 0.25 mg or 0.5 mg (2 mg/3 mL) pen injector 0.5 mg SUBCUT QWEEK Hold Instructions: Pt is ill buprenorphine HCl [Belbuca] 150 mcg film 150 mcg BUCCAL Q12H 3 Days Qty: 6 0RF prednisone 20 mg Tablet 60 mg PO BREAKFAST Qty: 42 0RF No Action ropinirole 2 MG tablet extended release 24 hr 2 mg PO QHS sucralfate 1 gram tablet 1 g PO Q6H Qty: 120 1RF Hold Instructions: Pt is ill quetiapine 50 mg tablet 50 mg PO QHS tizanidine 4 mg tablet 4 mg PO QHS Referrals / Follow Up: Juan Arndt MD [Med Staff - Consulting] - See Referral Note (Call office for follow-up appointment in the next 2 to 3 weeks) Tarah Dubon DO [Primary Care Provider] - Gavin Benito MD [Med Staff - Active Staff] - See Referral Note (Follow-up with Dr. Benito in 2 weeks-call for appointment) Abhishek Buchanan MD [Med Staff - Active Staff] - See Referral Note (Follow-up with Dr. Buchanan in 2 weeks-call office for appointment) Disposition Disposition (needs filled in before D/C Order can be placed): Intermediate Facility Charges/Coding Visit Charges Inpatient E&M: 08476 Disch Hosp >30min
--- NOTE | 2023-10-11 15:23 | CASEMGMT ---
Discharge Planning Discharge orders, signed med list, and transport time faxed to [facility] [place]. Call placed to [facility] ces[facility]es/[facility] to update with transport time. Nursing, SW, and patient updated. VM left for patients mother. Cynthia Marcelo, Discharge Planning Asst.
--- NOTE | 2023-10-11 15:46 | CASEMGMT ---
Patient will be discharged to [facility]CU under skilled level of care. Physicians will transport patient via wheelchair van. Nimo GARRETT
[2023-10-11] MEDS: Fluconazole 100 MG Tablet 200 MG PO (16:12)
[2023-10-11 16:15] VITALS: BP 122/63; PULSE 115; RESP 18; TEMP 36.7; O2SAT 93
--- NOTE | 2023-10-11 16:29 | PRO.PCM_ITS ---
Procedure Report Date of Procedure: 10/11/23 Assessment & Plan Assessment/Plan (1) MSSA bacteremia: Procedures Radiology Radiology Access Procedures: PICC Procedure Time Out Time Out Informed consent given: Yes Consent signed: Yes Time out checklist: patient, procedure, site marked/identified, positioning of patient, supplies available and allergies confirmed Time out verified: Yes Time out date: 10/11/23 Time out time: 14:27 PICC Line Consent Screening tool completed:: Yes Consent obtained:: Yes Consent given by (patient or responsible green party):: PATIENT Line successful (if no, document why in comments):: Yes Insertion Reason for Insertion: [employer] Professional Medication Date of Insertion: 10/11/23 Ok to use: Yes Type of PICC inserted: Single Power PICC PICC Lot #: [id number] PICC Reference #: [id number] Microintroducer Used: Yes (in kit) Ultrasound/Equipment Used: Probe Cover Kit Trimmed Length (cm): 48 Insertion Length (cm): 44 Exposed Length (cm): 4 Tip Placement: Caval Atrial Junction Placement Confirmation: 3CG Insertion Vein: Left Cephalic Insertion Attempts: 1 Local Anesthesia Used: Lidocaine 1% (in kit) Dressing Applied: Statlock and Tegaderm CHG Arm Measurement above site (in cm): 49 Patient Tolerated Procedure: Well Threading Difficulties: No Comments Comment: Patient identity was verified with two patient identifiers. Informed consent was obtained and time-out was completed. Hands were sanitized. The patient was positioned supine with left arm at 90 degrees. The patient's upper arm vasculature was assessed using ultrasound. Patency of the left cephalic vein was confirmed and the vein was externally marked. An external measurement was obtained of 48 cm. External leads were applied to the patient's right upper chest and laterally and inferior of the umbilicus on the mid axillary line. Cap, mask, and prep gloves were donned. The underdrape was placed under the patient's arm. The site was prepped with chlorhexidine, and tourniquet was loosely applied. Prep gloves were discarded, and hands were sanitized. The sterile kit was opened with additional supplies dropped in. Sterile gown and gloves were donned, and the patient was draped. The sterile kit was assembled with needle, introducer, needless connector, and catheter lumen flushed with sterile normal saline. The marked site of insertion was anesthetized with 1% lidocaine from the kit. Patient tolerated well. The left cephalic vein was then accessed using ultrasound guidance and guidewire was inserted to safety magdalena. The tourniquet was released. The access needle was removed while securing the guidewire in place. The site was again anesthetized with 1% lidocaine, prior to insertion of introducer sheath and dilator. Patient tolerated the insertion well. The catheter was trimmed to a length of 48 cm. Using 3C guidance, the catheter was then inserted through the introducer sheath, slowly. There was no resistance on insertion. The catheter followed the expected course of the vessel using 3CG tracking. The introducer sheath was retracted and peeled away, incrementally, while keeping the catheter secured. Maximal p-wave, without deflection, confirming placement in the cavoatrial junction, was obtained at an insertion length of 44 cm, leaving 4 cm external. The stylet was removed. A flushed needleless connector was attached to the lumen. Aspiration of the lumen was performed to remove any air and confirm blood return. Blood return was verified and the lumen was flushed with 10 ml of sterile normal saline in a pulsatile fashion. The lumen was clamped with the last pulsed flush. Total sterile flushes used for the insertion was 6 10 ml syringes, 2 from the kit. Finally, the insertion site was cleaned with chlorhexidine, and the catheter was secured using a StatLock. The site was covered with a Tegaderm CHG Dressing and disinfecting caps were applied. Baseline arm circumference was obtained at the insertion site and measured 49 cm. The patient was provided with a patient education handout on PICC line care and verbalized understanding of infection prevention, heavy lifting restriction, maintaining mobility, and watching for an y signs of infection. The charge nurse is aware that the PICC line is ready for use.
--- NOTE | 2023-10-11 17:05 | NURSING ---
Attempted to call report on patient, no answer at this time for [facility] VILLAGOMEZ
--- NOTE | 2023-10-11 17:52 | NURSING ---
Report called to Kaelyn at [facility]
== END 2023-10-11 19:26 | DRG 854 ==
LOC: ED 23:11 → ACINP 23:33 → ICU 10-06 07:19 → PCU 10-06 20:14 → ED 10-07 10:00 → SDC 10-07 14:29 → ACINP 10-07 14:30 → SDC 10-07 14:33 → PCU 10-07 14:33 → ICU 10-07 14:33
PROVIDERS: Anesthesiology; Internal Medicine Pulmonary Disease; Specialist; Admitting Provider Internal Medicine; Emergency Provider Emergency Medicine; PCP Family Medicine; Visit Provider Internal Medicine
PROC: 0RBJ4ZZ Excision of Right Shoulder Joint, Percutaneous Endoscopic Approach (ICD-10-PCS; CPT 29805; principal; 2023-10-06)
DX: A41.01 Sepsis due to Methicillin susceptible Staphylococcus aureus (principal); E44.0 Moderate protein-calorie malnutrition; M00.011 Staphylococcal arthritis, right shoulder; E72.12 Methylenetetrahydrofolate reductase deficiency; N17.9 Acute kidney failure, unspecified; D68.62 Lupus anticoagulant syndrome; Z68.43 Body mass index [BMI] 50.0-59.9, adult; M00.012 Staphylococcal arthritis, left shoulder; E11.40 Type 2 diabetes mellitus with diabetic neuropathy, unspecified; E66.01 Morbid (severe) obesity due to excess calories; R65.20 Severe sepsis without septic shock; M06.9 Rheumatoid arthritis, unspecified; F32.A Depression, unspecified; G25.81 Restless legs syndrome; G47.33 Obstructive sleep apnea (adult) (pediatric); F41.9 Anxiety disorder, unspecified; M75.121 Complete rotator cuff tear or rupture of right shoulder, not specified as traumatic; M65.111 Other infective (teno)synovitis, right shoulder; M65.112 Other infective (teno)synovitis, left shoulder; M75.122 Complete rotator cuff tear or rupture of left shoulder, not specified as traumatic; M94.211 Chondromalacia, right shoulder; M94.212 Chondromalacia, left shoulder; G89.29 Other chronic pain; Z79.01 Long term (current) use of anticoagulants; Z79.52 Long term (current) use of systemic steroids; Z79.85 Long-term (current) use of injectable non-insulin antidiabetic drugs; Z79.899 Other long term (current) drug therapy; Z86.711 Personal history of pulmonary embolism
CPT/HCPCS: 36415; 36569; 73030; 80048; 80053; 81001; 82962; 83605; 85025; 85610; 85652; 85730; 86140; 86850; 86900; 86901; 87040; 87070; 87075; 87077; 87149; 87186; 87205; 89050; 89051; 89060; 93005; 93308; 97110; 97162; 97166; 97530; 97535; 99285; J2020; J7030; J7040; J7050; P9612; A4216; J0295; J2405

== ENCOUNTER 2023-10-30 13:00 | Outpatient (RCR) | payer MEDICARE, MEDICAID, SELFPAY ==
[2023-10-23 13:44] VITALS: BP 145/81; PULSE 107; RESP 18; TEMP 36; BMI 54.3
--- NOTE | 2023-10-23 16:21 | PCM.WC.HP ---
History of Present Illness Date of Service: 10/23/23 Chief Complaint: Nonhealing fasciotomy ulcer left medial leg. History of Wound: Mrs. Mo is a 50-year-old female with a past medical history of MSSA bacteremia. She is currently at a SNF and on a PICC line IV antibiotics Ancef. Patient presents today to the wound care center for follow-up and evaluation for full-thickness ulceration to the proximal lateral aspect of the left lower extremity. Patient originally had her ulceration lanced which was a blister at that time cultured and showed negative culture. Patient states that the wound has gotten deeper and has been draining much more. Patient does have evidence of bilateral lymphedema and is not wearing compression at this time. She does deny trauma to the left lower extremity. Denies constitutional symptoms at this time. No other pedal complaints at this time. Progress of Wound: Left proximal leg wound. [facility] Medical History Acidosis, lactic Anemia Anticoagulant long-term use Anxiety and depression Bilateral lower extremity edema Celiac disease CKD (chronic kidney disease) Compartment syndrome of left lower extremity Diabetes mellitus, type 2 Encounter for dialysis catheter care Gastroparesis GERD (gastroesophageal reflux disease) High risk medication use History of pulmonary embolism History of venous thromboembolism Immunocompromised state due to drug therapy Iron deficiency anemia due to chronic blood loss snf current use of anticoagulant Lupus anticoagulant disorder Morbid obesity MTHFR mutation Obesity KIKI (obstructive sleep apnea) Other complications of skin graft (allograft) (autograft) Pleural effusion, left Pulmonary embolism Rheumatoid arthritis Rheumatoid arthritis RLS (restless legs syndrome) Sepsis Sinus tachycardia Home Medications bupropion HCl 300 mg 24 hr tablet, extended release 300 mg PO DAILY mental health 08/25/18 [History Last Taken 08/28/23] ropinirole 2 mg tablet,extended release 24 hr 2 mg PO QHS restless legs 08/25/18 [History Last Taken 09/20/22] rivaroxaban 20 mg tablet (Xarelto) 20 mg PO DAILY blood thinner 06/01/22 [History Last Taken 08/27/23] atenolol 50 mg tablet 50 mg PO DAILY HEART 09/21/22 [History Last Taken 08/28/23] buspirone 10 mg tablet 10 mg PO DAILY ANXIETY 09/21/22 [History Last Taken 08/28/23] buspirone 10 mg tablet 20 mg PO QHS ANXIETY 09/21/22 [History Last Taken 08/27/23] fluvoxamine 100 mg tablet 100 mg PO DAILY MENTAL HEALTH 09/21/22 [History Last Taken 08/28/23] pantoprazole 40 mg tablet,delayed release 40 mg PO BID reflux #60 tabs 10/26/22 [Rx Last Taken 08/28/23] sucralfate 1 gram tablet 1 g PO Q6H reflux #120 tabs 10/26/22 [Rx Last Taken 08/28/23] duloxetine 30 mg capsule,delayed release 30 mg PO DAILY mental health 06/29/23 [History Last Taken 08/28/23] quetiapine 50 mg tablet 50 mg PO QHS sleep 06/29/23 [History Last Taken 08/27/23] tizanidine 4 mg tablet 4 mg PO QHS spasms 06/29/23 [History Last Taken Unknown] pramipexole 0.75 mg tablet 0.75 mg PO TID restless leg 08/17/23 [History Last Taken Unknown] acetaminophen 325 mg tablet 1,000 mg (3.0769 x 325 mg) PO Q8H PRN PRN Fever, pain 1-04/30 #0 tabs 08/23/23 [Rx Last Taken 09/14/23] ferrous sulfate 325 mg (65 mg iron) tablet (FeroSul) 325 mg PO QODAY@1200 anemia #0 tabs 08/23/23 [Rx Last Taken 08/27/23] cefazolin 2 gram intravenous solution 2 g IV Q8H 40 days 10/10/23 [Rx Last Taken Unknown] acetaminophen 500 mg tablet 1,000 mg (2 x 500 mg) PO Q8 #0 tabs 10/11/23 [Rx Last Taken Unknown] benzocaine 6 mg-menthol 10 mg lozenges (Chloraseptic Sore Throat) 2 tim mucous membrane Q2H PRN PRN SORE THROAT #0 ea 10/11/23 [Rx Last Taken Unknown] fluconazole 100 mg tablet (Diflucan) 100 mg PO DAILY #7 tabs 10/11/23 [Rx Last Taken Unknown] lorazepam 1 mg tablet 1 mg PO Q6H PRN PRN Anxiety #10 tabs 10/11/23 [Rx Last Taken Unknown] oxycodone 5 mg tablet 10 mg (2 x 5 mg) PO Q4H PRN PRN Pain Score 6-10 2 days #20 tabs 10/11/23 [Rx Last Taken Unknown] pramipexole 0.5 mg tablet 0.5 mg PO QHS #1 TAB 10/11/23 [Rx Last Taken Unknown] pramipexole 1 mg tablet 1 mg PO QHS #1 TAB 10/11/23 [Rx Last Taken Unknown] quetiapine 25 mg tablet 75 mg (3 x 25 mg) PO QHS #0 tabs 10/11/23 [Rx Last Taken Unknown] sucralfate 1 gram tablet 1 g PO 1HR_ACHS #0 tabs 10/11/23 [Rx Last Taken Unknown] tizanidine 2 mg tablet 4 mg (2 x 2 mg) PO QHS #0 tabs 10/11/23 [Rx Last Taken Unknown] Allergy/AdvReac Type Severity Reaction Status Date / Time adhesive tape AdvReac Rash Verified 10/05/23 19:17 Family History Mother Cancer Lung CA w/ concurrent tobacco use. Heart disease Father No problems noted. Surgical History History of arthroscopy of right shoulder History of fasciotomy History of hysterectomy History of total bilateral knee replacement S/P pericardial window creation Social History household members: family Smoking Status: Never smoker alcohol intake: never substance use type: does not use Vital Signs Vital Signs Vital Signs: 10/23/23 13:44 Temperature 96.8 F L Temperature Source Oral Pulse Rate 107 H Respiratory Rate 18 Blood Pressure 145/81 H Blood Pressure Mean 102 Blood Pressure Source Monitor Blood Pressure Position Semi-Fowlers Blood Pressure Location Left Arm Weight Weight: 152.861 kg Body Mass Index (BMI) 54.3 Physical Exam Narrative Vascular: DP and PT pulses are faintly palpable secondary to swelling. CFT is brisk. +2 pitting edema appreciated bilateral lower extremity. Skin temp great is warm to warm from proximal ankle to distal digits bilateral. No erythema is present to the bilateral extremity. Neurological: Light touch intact. Protective sensation is diminished. Dermatological: There is evidence of a full-thickness ulceration appreciated to the proximal lateral aspect of the left lower extremity. The ulceration measures 1.0 x 1.1 x 3.2 cm. Evidence of sanguinous and serous drainage. Positive probe to periosteum. Cannot rule out infection at this time. Excisional debridement down to and including subcutaneous tissue, fascia and muscle to the left proximal leg with a number 3 mm dermal curette without incident. Predebridement measurement was 0.8 x 1.0 x 0.4 cm. Postdebridement measurement is 1.0 x 1.1 x 3.2 cm. Musculoskeletal: Motor strength 5 out of 5 in all quadrants bilateral. Evidence of status post knee arthroplasty left lower extremity. Mild pain on palpation to the full-thickness ulceration to the proximal left leg. No pain with calf compression. Debridement Note Debridement Note Debridement Free Text: Excisional debridement down to and including subcutaneous tissue, fascia and muscle to the left proximal leg with a number 3 mm dermal curette without incident. Predebridement measurement was 0.8 x 1.0 x 0.4 cm. Postdebridement measurement is 1.0 x 1.1 x 3.2 cm. Post-Debridement Measurements and Additional Note: Post-Debridement Measurements/Treatment - Nurse 1 - General Ulcer Assessment Start: 10/23/23 13:32 Freq: Status: Active Protocol: SEPIDEH.LOWEXT Activity Type Activity Date Activity User E-sign Co-sign Detail Recorded Client Recorded Date Recorded By Document 10/23/23 13:44 Desktop 10/23/23 13:51 RB 10/23/23 13:44 - Today's Visit Information Type of service Initial Visit Arrival Mode Wheelchair Transfer Assistance Manual Patient Identification Verified (Name & Yes ) Patient Requires Transmission-Based No Precautions Height and Weight Height 5 ft 6 in Weight 152.861 kg Weight in Pounds 337.0 lbs Body Mass Index (BMI) 54.3 BMI Classification Obese BSA - Tanesha 2.50 Vital Signs Temperature (97.8 F-99.1 F) 96.8 F L Temperature Source Oral Pulse Rate (60-100) 107 H Pulse Location Monitor Respiratory Rate (12-18) 18 Respiratory rate source Observation Blood Pressure (90/60-120/80) 145/81 H Blood Pressure Mean 102 Source Monitor Position Semi-Fowlers Blood Pressure Location Left Arm History Since Last Visit- (Skip if this is Patient's initial visit) Have you changed medications since your No last visit? Any new allergies or adverse reactions No Had a fall/change in ADL's that may No increase risk of falls Signs or symptoms of abuse and/or No neglect since last visit Have you been in the hospital since your No last visit? Has dressing in place as prescribed Yes Has compression in place as prescribed No Has offloadiing in place as prescribed No Experienced any changes in pain level or No management Left Footwear Regular Shoe Right Footwear Regular Shoe Pain Scale: 0-10 Numeric Is Patient Pain Free? Yes Lower Extremity Assessment/ Foot Assessment/ Toe Nail Assessment Right -Posterior Tibial Palpable No -Dorsalis Pedis Palpable No -Extremity Color Pale -Hair Growth on Legs Yes -Hair Growth on Toes No -Temperature of Extremity Cool -Capillary Refill Less than 3 Seconds -Dependent Rubor No -Blanched when Elevated No -Lipodermatosclerosis No -Other Deformity No -Prior Foot Ulcer No -Charcot Joint No -Prior Amputation No -Thick No -Discolored No -Deformed No -Improper Length & Hygeine No Left -Posterior Tibial Palpable No -Dorsalis Pedis Palpable No -Extremity Color Pale -Hair Growth on Legs Yes -Hair Growth on Toes No -Temperature of Extremity Cool -Capillary Refill Less than 3 Seconds -Dependent Rubor No -Blanched when Elevated No -Lipodermatosclerosis No -Other Deformity No -Prior Foot Ulcer No -Charcot Joint No -Prior Amputation No -Thick No -Discolored No -Deformed No -Improper Length & Hygeine No Neuropathy Assessment Feet - Top Side and Bottom <Entered> (a) Communication Assessment Preferred language Turkish Production Control Pegboard Clerk Required No Able to Read Yes Able to Write Yes Communication Tools None Caregiver Communication Skills No Impairment Impairment Right Hearing Abillity Normal Left Hearing Abillity Normal Visual Assistive Devices Glasses Functional Assessment Recent Decline in Ability to Perform Ambulation, Bathing,Lower Body Dressing, Toileting, Transferring, Upper Body Dressing Assistive Device With Patient walker Culture/Sabianism/Double End Tenoner Operator Cultural/Sabianism Needs that may affect No Treatment Plan Would you allow our hospital neon sign servicer to No meet you for the purpose of spiritual/ emotional support? Double End Tenoner Operator to contact place of cheondoism No Teaching: Wound Center Control Swelling with Leg Elevation -Person Taught Patient -Teaching Method Discussion -Response to teaching Reinforcement needed (a) 1 - + throughout WC - Nurse 1 - General Ulcer Measurement Start: 10/23/23 13:32 Freq: Status: Active Protocol: Activity Type Activity Date Activity User E-sign Co-sign Detail Recorded Client Recorded Date Recorded By Document 10/23/23 13:44 RB Desktop 10/23/23 13:51 RB 10/23/23 13:44 Wound Center Nurse 1 5. LLE lateral -Combined with other wound No -Current Size (cm) - Length 0.8 -Current Size (cm) - Width 1 -Current Size (cm) - Depth 0.4 -Total Square Cm 0.8 -Photo Taken Yes -Tunneling No -Undermining/Tunneling No -Circular Undermining No -Exudate Amt Medium -Exudate Type Serosanguineous -Wound Margin Distinct, Outline Attached -Granulation Amt Medium (34-66%) -Granulation Quality [place] -Slough/Fibrin Yes -Necrosis Amt Medium (34-66%) -Necrotic Tissue Type Adherent Slough -Structure Exposed N/A -Texture (Kisha-wound Skin Appearance) Assessed -Moisture (Kisha-wound Skin Appearance) Assessed -Color (Kisha-wound Skin Appearance) Erythema -Temperature (Kisha-wound Skin No Abnormality Appearance) (Pt Warm) -Tenderness on Palpation (Kisha-wound No Skin Appearance) -Ulcer Cleansing Wound Cleanser -Foul Odor after Cleansing No -Anesthetic Used 5% Lidocaine Gel Lower Limb Edema Present Yes Right Calf (cm) 50 Right Ankle (cm) 27 Left Calf (cm) 52.2 Left Ankle (cm) 29 - Nurse 2 - General Ulcer CM Notes Start: 10/23/23 13:32 Freq: Status: Active Protocol: Activity Type Activity Date Activity User E-sign Co-sign Detail Recorded Client Recorded Date Recorded By Document 10/23/23 14:03 Laptop 10/23/23 14:13 10/23/23 14:03 Wound Center Nurse 2 5. LLE lateral -Time 14:03 -Correct Patient Yes -Correct Side, Site, Position Yes -Correct Procedure Yes -Procedure Performed Yes -Type of Procedure Debridement -Clinical Debridement Muscle / Fascia -Tissue Removed Muscle -Post Debridement (cm) - Length 1.0 -Post Debridement (cm) - Width 1.1 -Post Debridement (cm) - Depth 3.2 -Total Square (Post) (cm) 1.10 -Area of Debridement (cm) - Length 1.0 -Area of Debridement (cm) - Width 1.1 -Total Square (Area) (cm) 1.10 -Tunneling No -Undermining/Tunneling No -Circular Undermining No -Wound/Ulcer Outcome Not Healed -Ulcer Cleansing Rinsed/ Irrigated with Saline -Foul Odor after Cleansing No -Bioengineered Tissue No -Bleeding Controlled with Pressure -Treatment Response Procedure Tolerated Well -Offloading No -Debridement - Muscle / Fascia, 1st Yes 20sq cm Pain Scale: 0-10 Numeric Is Patient Pain Free? Yes WC - Nurse 3 - General Ulcer D/C NN Start: 10/23/23 13:32 Freq: Status: Active Protocol: Activity Type Activity Date Activity User E-sign Co-sign Detail Recorded Client Recorded Date Recorded By Document 10/23/23 14:19 GM Desktop 10/23/23 14:20 GM 10/23/23 14:19 Wound Care Center Nurse 3 5. LLE lateral -Ulcer Cleansing Not Cleansed -Foul Odor after Cleansing No -Primary Dressing Covered/Secured with Dry Gauze, Secured with Tape Right -Lotion applied to leg before No compression wrap -Tubular Bandage Double Layer -Size of Tubigrip Used Size F -Size F ($) 2 Left -Tubular Bandage Double Layer -Size of Tubigrip Used Size F -Size F ($) 2 Pain Scale: 0-10 Numeric Is Patient Pain Free? Yes Teaching: Wound Center DRESSING CHANGES -Person Taught Patient -Teaching Method Discussion, Demonstration -Response to teaching Verbalize understanding Compression Wraps & Stockings -Person Taught Patient -Teaching Method Discussion -Response to teaching Verbalize understanding WC - Visit Discharge Discharge Condition Stable Ambulatory Status Ambulatory, Wheelchair Transportation Private Auto Clinical Summary of Care Provided Yes Assessment/Plan Assessment/Plan (1) Non-pressure chronic ulcer of other part of left lower leg with necrosis of muscle: CODE(S): L97.823 - Non-pressure chronic ulcer of other part of left lower leg with necrosis of muscle PLAN: Patient was examined and evaluated. All findings were discussed with the patient. All questions were answered to the patient's satisfaction. Excisional debridement down to and including subcutaneous tissue, fascia and muscle to the left proximal leg with a number 3 mm dermal curette without incident. Predebridement measurement was 0.8 x 1.0 x 0.4 cm. Postdebridement measurement is 1.0 x 1.1 x 3.2 cm. The patient's full-thickness ulceration was cultured. The left lower extremities were cleaned and patted dry. The full-thickness ulceration was dressed with Betadine soaked gauze packing, dry sterile dressing and a compression bandage was donned to the bilateral lower extremity. Patient will continue her IV antibiotics per infectious disease at her SNF. Educated patient strict low sugar control. Also educated the patient that if there is risk for deep wound infection that she will need to follow back up with orthopedic surgeon for evaluation of her left knee arthroplasty, to ensure that the hardware is not infected. Follow-up at the wound care center with Dr. Plaza in 1 week. (2) MSSA bacteremia: CODE(S): R78.81 - Bacteremia; B95.61 - Methicillin susceptible Staphylococcus aureus infection as the cause of diseases classified elsewhere (3) Diabetes mellitus, type 2: CODE(S): E11.9 - Type 2 diabetes mellitus without complications
--- NOTE | 2023-10-25 12:27 | WC ---
4.3.24 LT LAT LE INITIAL
[2023-10-30 13:20] VITALS: BP 134/88; PULSE 106; RESP 18; BMI 54.3
--- NOTE | 2023-10-30 16:11 | PCM.WC.PN ---
History of Present Illness Date of Service: 10/30/23 Chief Complaint: Nonhealing fasciotomy ulcer left medial leg. History of Wound: Mrs. Mo is a 50-year-old female with a past medical history of MSSA bacteremia. She is currently at a SNF and on a PICC line IV antibiotics Ancef. Patient presents today to the wound care center for follow-up and evaluation for full-thickness ulceration to the proximal lateral aspect of the left lower extremity. Patient originally had her ulceration lanced which was a blister at that time cultured and showed negative culture. Patient states that the wound has gotten deeper and has been draining much more. Patient does have evidence of bilateral lymphedema and is not wearing compression at this time. She does deny trauma to the left lower extremity. Denies constitutional symptoms at this time. No other pedal complaints at this time. Progress of Wound: Left proximal leg wound. Subjective Subjective Mrs. Mo is a 53-year-old female presenting to clinic today for follow-up evaluation of full-thickness wound to the left leg. Patient has been getting wound care changes at her SNF. She is currently still on IV antibiotics and taking them without any issues. She admits that her wound is getting a little better but still has some pain to the left leg secondary to the wound. Denies trauma. Denies constitutional symptoms. No other pedal complaints at this time. Objective Data Objective Data Vital Signs: Vital Signs Temp Pulse Resp BP O2 Del Method 96.8 F L 106 H 18 134/88 H Room Air 10/23/23 13:44 10/30/23 13:20 10/30/23 13:20 10/30/23 13:20 10/30/23 13:20 Oxygen Delivery Method Room Air Weight: 152.861 kg Body Mass Index (BMI) 54.3 Lab / Micro Data Micro: Microbiology 10/24/23 Unknown Wound - Leg, Left Gram Stain - Final 10/24/23 Unknown Wound - Leg, Left Wound Culture - Final Staphylococcus haemolyticus 10/24/23 Unknown Wound - Leg, Left Anaerobic Culture - Final No anaerobic bacteria isolated. Physical Exam Narrative Vascular: DP and PT pulses are faintly palpable secondary to swelling. CFT is brisk. +2 pitting edema appreciated bilateral lower extremity. Skin temp great is warm to warm from proximal ankle to distal digits bilateral. No erythema is present to the bilateral extremity. Neurological: Light touch intact. Protective sensation is diminished. Dermatological: There is evidence of a full-thickness ulceration appreciated to the proximal lateral aspect of the left lower extremity. The ulceration measures 0.9 x 1.0 x 2.1 cm. Evidence of sanguinous and serous drainage. Positive probe to periosteum. Cannot rule out infection at this time. Excisional debridement down to and including subcutaneous tissue, fascia and muscle to the left proximal leg with a number 3 mm dermal curette without incident. Predebridement measurement was 0.8 x 0.9 x 1.8 cm. Postdebridement measurement is 0.9 x 1.0 x 2.1 cm. Musculoskeletal: Motor strength 5 out of 5 in all quadrants bilateral. Evidence of status post knee arthroplasty left lower extremity. Mild pain on palpation to the full-thickness ulceration to the proximal left leg. No pain with calf compression. Debridement Note Debridement Note Debridement Free Text: Excisional debridement down to and including subcutaneous tissue, fascia and muscle to the left proximal leg with a number 3 mm dermal curette without incident. Predebridement measurement was 0.8 x 0.9 x 1.8 cm. Postdebridement measurement is 0.9 x 1.0 x 2.1 cm. Post-Debridement Measurements and Additional Note: Post-Debridement Measurements/Treatment - Nurse 1 - General Ulcer Assessment Start: 10/23/23 13:32 Freq: Status: Active Protocol: WC.LOWEXT Activity Type Activity Date Activity User E-sign Co-sign Detail Recorded Client Recorded Date Recorded By Document 10/23/23 13:44 RB Desktop 10/23/23 13:51 RB Document 10/30/23 13:20 KW Desktop 10/30/23 13:30 KW 10/23/23 10/30/23 13:44 13:20 - Today's Visit Information Type of service Initial Visit Follow-up Visit (Physician/SPRING INSPECTOR ) Arrival Mode Wheelchair Wheelchair Transfer Assistance Manual Patient Identification Verified (Name & Yes Yes ) Patient Requires Transmission-Based No Precautions Height and Weight Height 5 ft 6 in Weight 152.861 kg Weight in Pounds 337.0 lbs Body Mass Index (BMI) 54.3 54.3 BMI Classification Obese Obese BSA - Tanesha 2.50 Vital Signs Temperature (97.8 F-99.1 F) 96.8 F L Temperature Source Oral Pulse Rate (60-100) 107 H 106 H Pulse Location Monitor Monitor Respiratory Rate (12-18) 18 18 Respiratory rate source Observation Observation Oxygen Delivery Method Room Air Blood Pressure (90/60-120/80) 145/81 H 134/88 H Blood Pressure Mean (mm Hg) 102 103 Source Monitor Monitor Position Semi-Fowlers Semi-Fowlers Blood Pressure Location Left Arm Right Forearm History Since Last Visit- (Skip if this is Patient's initial visit) Have you changed medications since your No Yes last visit? Any new allergies or adverse reactions No No Had a fall/change in ADL's that may No No increase risk of falls Signs or symptoms of abuse and/or No No neglect since last visit Have you been in the hospital since your No No last visit? Has dressing in place as prescribed Yes Yes Has compression in place as prescribed No Yes Has offloadiing in place as prescribed No N/A Experienced any changes in pain level or No No management Left Footwear Regular Shoe Regular Shoe Right Footwear Regular Shoe Regular Shoe Pain Scale: 0-10 Numeric Is Patient Pain Free? Yes Yes Lower Extremity Assessment/ Foot Assessment/ Toe Nail Assessment Right -Posterior Tibial Palpable No -Dorsalis Pedis Palpable No -Extremity Color Pale -Hair Growth on Legs Yes -Hair Growth on Toes No -Temperature of Extremity Cool -Capillary Refill Less than 3 Seconds -Dependent Rubor No -Blanched when Elevated No -Lipodermatosclerosis No -Other Deformity No -Prior Foot Ulcer No -Charcot Joint No -Prior Amputation No -Thick No -Discolored No -Deformed No -Improper Length & Hygeine No Left -Posterior Tibial Palpable No -Dorsalis Pedis Palpable No -Extremity Color Pale -Hair Growth on Legs Yes -Hair Growth on Toes No -Temperature of Extremity Cool -Capillary Refill Less than 3 Seconds -Dependent Rubor No -Blanched when Elevated No -Lipodermatosclerosis No -Other Deformity No -Prior Foot Ulcer No -Charcot Joint No -Prior Amputation No -Thick No -Discolored No -Deformed No -Improper Length & Hygeine No Neuropathy Assessment Feet - Top Side and Bottom <Entered> (a) Communication Assessment Preferred language Swedish [place] Operator Required No Able to Read Yes Able to Write Yes Communication Tools None Caregiver Communication Skills No Impairment Impairment Right Hearing Abillity Normal Left Hearing Abillity Normal Visual Assistive Devices Glasses Functional Assessment Recent Decline in Ability to Perform Ambulation, Bathing,Lower Body Dressing, Toileting, Transferring, Upper Body Dressing Assistive Device With Patient walker Culture/Confucianist/Rn Cardiovascular Icu Cultural/Confucianist Needs that may affect No Treatment Plan Would you allow our hospital machine rigger to No meet you for the purpose of spiritual/ emotional support? Rn Cardiovascular Icu to contact place of methodist No Teaching: Wound Center Control Swelling with Leg Elevation -Person Taught Patient -Teaching Method Discussion -Response to teaching Reinforcement needed (a) 1 - + throughout WC - Nurse 1 - General Ulcer Measurement Start: 10/23/23 13:32 Freq: Status: Active Protocol: Activity Type Activity Date Activity User E-sign Co-sign Detail Recorded Client Recorded Date Recorded By Document 10/23/23 13:44 RB Desktop 10/23/23 13:51 RB Document 10/30/23 13:20 KW Desktop 10/30/23 13:30 KW 10/23/23 10/30/23 13:44 13:20 Wound Center Nurse 1 5. LLE lateral -Combined with other wound No -Current Size (cm) - Length 0.8 1.1 -Current Size (cm) - Width 1 0.8 -Current Size (cm) - Depth 0.4 0.4 -Total Square Cm 0.8 0.88 -Photo Taken Yes -Tunneling No -Undermining/Tunneling No -Circular Undermining No -Exudate Amt Medium Medium -Exudate Type Serosanguineous Serosanguineous -Wound Margin Distinct, Distinct, Outline Outline Attached Attached -Granulation Amt Medium (34-66%) Small (1-33%) -Granulation Quality Paguate Paguate -Slough/Fibrin Yes -Necrosis Amt Medium (34-66%) Large (67-100%) -Necrotic Tissue Type Adherent Slough Adherent Slough -Structure Exposed N/A -Texture (Kisha-wound Skin Appearance) Assessed Assessed -Moisture (Kisha-wound Skin Appearance) Assessed Assessed -Color (Kisha-wound Skin Appearance) Erythema Assessed -Temperature (Kisha-wound Skin No Abnormality No Abnormality Appearance) (Pt Warm) (Pt Warm) -Tenderness on Palpation (Kisha-wound No Skin Appearance) -Ulcer Cleansing Wound Cleanser Soap and Water -Foul Odor after Cleansing No No -Anesthetic Used 5% Lidocaine 5% Lidocaine Gel Gel Lower Limb Edema Present Yes Right Calf (cm) 50 Right Ankle (cm) 27 Left Calf (cm) 52.2 37 Left Ankle (cm) 29 21 - Nurse 2 - General Ulcer CM Notes Start: 10/23/23 13:32 Freq: Status: Active Protocol: Activity Type Activity Date Activity User E-sign Co-sign Detail Recorded Client Recorded Date Recorded By Document 10/23/23 14:03 Laptop 10/23/23 14:13 Document 10/30/23 13:44 Laptop 10/30/23 13:52 10/23/23 10/30/23 14:03 13:44 Wound Center Nurse 2 5. LLE lateral -Time 14:03 13:45 -Correct Patient Yes Yes -Correct Side, Site, Position Yes Yes -Correct Procedure Yes Yes -Procedure Performed Yes Yes -Type of Procedure Debridement Debridement -Clinical Debridement Muscle / Fascia Muscle / Fascia -Tissue Removed Muscle Muscle -Post Debridement (cm) - Length 1.0 0.9 -Post Debridement (cm) - Width 1.1 1.0 -Post Debridement (cm) - Depth 3.2 2.1 -Total Square (Post) (cm) 1.10 0.90 -Area of Debridement (cm) - Length 1.0 0.9 -Area of Debridement (cm) - Width 1.1 1.0 -Total Square (Area) (cm) 1.10 0.90 -Tunneling No No -Undermining/Tunneling No No -Circular Undermining No No -Wound/Ulcer Outcome Not Healed Not Healed -Ulcer Cleansing Rinsed/ Rinsed/ Irrigated with Irrigated with Saline Saline -Foul Odor after Cleansing No No -Bioengineered Tissue No No -Bleeding Controlled with Pressure Pressure -Treatment Response Procedure Procedure Tolerated Well Tolerated Well -Offloading No No -Debridement - Muscle / Fascia, 1st Yes Yes 20sq cm Pain Scale: 0-10 Numeric Is Patient Pain Free? Yes Yes - Nurse 3 - General Ulcer D/C NN Start: 10/23/23 13:32 Freq: Status: Active Protocol: Activity Type Activity Date Activity User E-sign Co-sign Detail Recorded Client Recorded Date Recorded By Document 10/23/23 14:19 [email or web address] 10/23/23 14:20 Document 10/30/23 13:59 Desktop 10/30/23 14:01 GM 10/23/23 10/30/23 14:19 13:59 Wound Care Center Nurse 3 5. LLE lateral -Ulcer Cleansing Not Cleansed Not Cleansed -Foul Odor after Cleansing No No -Primary Dressing Covered/Secured with Dry Gauze, Dry Gauze & Secured with Roll Gauze, Tape Secured with Tape Right -Lotion applied to leg before No compression wrap -Tubular Bandage Double Layer -Size of Tubigrip Used Size F -Size F ($) 2 Left -Lotion applied to leg before No compression wrap -Tubular Bandage Double Layer Double Layer -Size of Tubigrip Used Size F Size F -Size F ($) 2 2 Pain Scale: 0-10 Numeric Is Patient Pain Free? Yes Yes Teaching: Wound Center *Wound/Skin Impairment -Person Taught Patient -Teaching Method Discussion -Response to teaching Verbalize understanding DRESSING CHANGES -Person Taught Patient -Teaching Method Discussion, Demonstration -Response to teaching Verbalize understanding Compression Wraps & Stockings -Person Taught Patient Patient -Teaching Method Discussion Discussion -Response to teaching Verbalize Verbalize understanding understanding WC - Visit Discharge Discharge Condition Stable Stable Ambulatory Status Ambulatory, Wheelchair Wheelchair Transportation Private Auto Private Auto Clinical Summary of Care Provided Yes Yes Assessment/Plan Assessment/Plan (1) Non-pressure chronic ulcer of other part of left lower leg with necrosis of muscle: CODE(S): L97.823 - Non-pressure chronic ulcer of other part of left lower leg with necrosis of muscle PLAN: Patient was examined and evaluated. All findings were discussed with the patient. All questions were answered to the patient's satisfaction. Excisional debridement down to and including subcutaneous tissue, fascia and muscle to the left proximal leg with a number 3 mm dermal curette without incident. Predebridement measurement was 0.8 x 0.9 x 1.8 cm. Postdebridement measurement is 0.9 x 1.0 x 2.1 cm. Left lower extremities were cleaned and patted dry. Betadine soaked gauze was packed into the wound followed by dry sterile dressing and a single-layer Tubigrip. Instructions were given specifically for Betadine soaked gauze to be packed in the wound and not to use Aquacel Ag ribbon as this was possibly left in the wound for more than a few days. Patient was told to make sure that the dressing changes are being done correctly which she was understanding of. Follow-up at the wound care center with Dr. Plaza in 1 week.
== END 2023-11-19 23:59 | disposition home or self-care (01) ==
LOC: WC 13:00
PROVIDERS: PCP Family Medicine; Referring Provider Family Medicine; Visit Provider Podiatrist Foot & Ankle Surgery
DX: E11.622 Type 2 diabetes mellitus with other skin ulcer (principal); L97.823 Non-pressure chronic ulcer of other part of left lower leg with necrosis of muscle; E11.40 Type 2 diabetes mellitus with diabetic neuropathy, unspecified; E11.22 Type 2 diabetes mellitus with diabetic chronic kidney disease; Z79.01 Long term (current) use of anticoagulants; M79.605 Pain in left leg; D50.0 Iron deficiency anemia secondary to blood loss (chronic); Z96.652 Presence of left artificial knee joint; N18.9 Chronic kidney disease, unspecified; R78.81 Bacteremia
CPT/HCPCS: 11043; 87070; 87075; 87077; 87101; 87186; 87205; 99214; G0463

== ENCOUNTER 2023-11-20 10:39 | Outpatient (RCR) | payer MEDICARE, MEDICAID, SELFPAY ==
[2023-11-20 00:36] VITALS: BP 134/88; PULSE 106; RESP 18; TEMP 36; BMI 54.3
[2023-11-20 10:57] VITALS: BP 129/99; PULSE 118; RESP 18; TEMP 35.9; BMI 54.3
--- NOTE | 2023-11-20 11:23 | PN.PCM_ITS ---
History of Present Illness Date of Service: 11/20/23 Chief Complaint: Nonhealing fasciotomy ulcer left medial leg. History of Wound: Mrs. Mo is a 50-year-old female with a past medical history of MSSA bacteremia. She is currently at a SNF and on a PICC line IV antibiotics Ancef. Patient presents today to the wound care center for follow-up and evaluation for full-thickness ulceration to the proximal lateral aspect of the left lower extremity. Patient originally had her ulceration lanced which was a blister at that time cultured and showed negative culture. Patient states that the wound has gotten deeper and has been draining much more. Patient does have evidence of bilateral lymphedema and is not wearing compression at this time. She does deny trauma to the left lower extremity. Denies constitutional symptoms at this time. No other pedal complaints at this time. Subjective Subjective Ms. Cali is a 52-year-old female presenting to wound care center today for follow-up evaluation of full-thickness ulceration to the proximal left leg. Patient has been doing home dressing changes and states that her wound is now healed. She has had some struggles getting to the wound care center secondary to transport availability. She admits that her PICC line will be removed tomorrow. She is grateful for her care and she denies any open lesions or abrasions to the left lower extremity leg. She denies trauma. Denies const itutional symptoms. No other pedal complaints at this time. Objective Data Objective Data Vital Signs: Vital Signs Temp Pulse Resp BP O2 Del Method 96.6 F L 118 H 18 129/99 H Room Air 11/20/23 10:57 11/20/23 10:57 11/20/23 10:57 11/20/23 10:57 11/20/23 10:57 Oxygen Delivery Method Room Air Weight: 152.861 kg Body Mass Index (BMI) 54.3 Physical Exam Narrative Vascular: DP and PT pulses are faintly palpable secondary to swelling. CFT is brisk. +1 pitting edema appreciated bilateral lower extremity. Skin temp great is warm to warm from proximal ankle to distal digits bilateral. No erythema is present to the bilateral extremity. Neurological: Light touch intact. Protective sensation is diminished. Dermatological: Full-thickness ulceration to the proximal aspect of the left leg is now healed. No evidence of erythema or sign of infection. There is some evidence of dermatitis from and he is in reaction. Musculoskeletal: Motor strength 5 out of 5 in all quadrants bilateral. Evidence of status post knee arthroplasty left lower extremity. No pain on palpation to the healed full-thickness ulceration to the proximal left leg. No pain with calf compression. Debridement Note Debridement Note Post-Debridement Measurements and Additional Note: Post-Debridement Measurements/Treatment SEPIDEH - Nurse 1 - General Ulcer Assessment Start: 11/20/23 10:57 Freq: Status: Active Protocol: SAURABH Activity Type Activity Date Activity User E-sign Co-sign Detail Recorded Client Recorded Date Recorded By Document 11/20/23 10:57 [employer] 11/20/23 11:01 KW 11/20/23 10:57 WC - Today's Visit Information Type of service Follow-up Visit (Physician/KNITTING SUPERVISOR ) Arrival Mode Wheelchair Patient Identification Verified (Name & Yes ) Height and Weight Body Mass Index (BMI) 54.3 BMI Classification Obese Vital Signs Temperature (97.8 F-99.1 F) 96.6 F L Temperature Source Temporal Pulse Rate (60-100) 118 H Pulse Location Monitor Respiratory Rate (12-18) 18 Respiratory rate source Observation Oxygen Delivery Method Room Air Blood Pressure (90/60-120/80) 129/99 H Blood Pressure Mean (mm Hg) 109 Source Monitor Position Semi-Fowlers Blood Pressure Location Right Forearm History Since Last Visit- (Skip if this is Patient's initial visit) Have you changed medications since your No last visit? Any new allergies or adverse reactions No Had a fall/change in ADL's that may No increase risk of falls Signs or symptoms of abuse and/or No neglect since last visit Have you been in the hospital since your No last visit? Has dressing in place as prescribed Yes Has compression in place as prescribed No Has offloadiing in place as prescribed No Experienced any changes in pain level or No management Left Footwear Regular Shoe Right Footwear Regular Shoe Pain Scale: 0-10 Numeric Is Patient Pain Free? Yes - Nurse 1 - General Ulcer Measurement Start: 11/20/23 10:57 Freq: Status: Active Protocol: Activity Type Activity Date Activity User E-sign Co-sign Detail Recorded Client Recorded Date Recorded By Document 11/20/23 10:57 [employer] 11/20/23 11: KW 11/20/23 10:57 Wound Center Nurse 1 5. LLE lateral -Current Size (cm) - Length 0.1 -Current Size (cm) - Width 0.1 -Current Size (cm) - Depth 0.1 -Total Square Cm 0.01 -Granulation Amt None Present (0 %) -Necrosis Amt None Present (0 %) -Texture (Kisha-wound Skin Appearance) Assessed -Moisture (Kisha-wound Skin Appearance) Assessed -Color (Kisha-wound Skin Appearance) Assessed -Temperature (Kisha-wound Skin No Abnormality Appearance) (Pt Warm) -Tenderness on Palpation (Kisha-wound No Skin Appearance) -Ulcer Cleansing Rinsed/ Irrigated with Saline -Foul Odor after Cleansing No -Anesthetic Used 5% Lidocaine Gel -Wound Comment(s) NO DRAINAGE NOTED, ULCER MAY BE CLOSED - Nurse 2 - General Ulcer CM Notes Start: 11/20/23 10:57 Freq: Status: Active Protocol: Activity Type Activity Date Activity User E-sign Co-sign Detail Recorded Client Recorded Date Recorded By Document 11/20/23 11:17 Laptop 11/20/23 11:18 11/20/23 11:17 Wound Center Nurse 2 -Correct Patient No -Correct Side, Site, Position No -Correct Procedure No -Procedure Performed No -Post Debridement (cm) - Length 0 -Post Debridement (cm) - Width 0 -Post Debridement (cm) - Depth 0 -Total Square (Post) (cm) 0 -Area of Debridement (cm) - Length 0 -Area of Debridement (cm) - Width 0 -Total Square (Area) (cm) 0 -Wound/Ulcer Outcome Healed- Epithelialized Pain Scale: 0-10 Numeric Is Patient Pain Free? Yes - Nurse 3 - General Ulcer D/C NN Start: 11/20/23 10:57 Freq: Status: Active Protocol: Activity Type Activity Date Activity User E-sign Co-sign Detail Recorded Client Recorded Date Recorded By Document 11/20/23 11:18 Laptop 11/20/23 11:19 11/20/23 11:18 Is Patient Pain Free? Yes - Visit Discharge Discharge Condition Stable Ambulatory Status Wheelchair Transportation Private Auto Medication Reconcilliation completed & Yes provided to patient/care provider Clinical Summary of Care Provided Yes Assessment/Plan Assessment/Plan (1) Non-pressure chronic ulcer of other part of left lower leg with necrosis of muscle: CODE(S): L97.823 - Non-pressure chronic ulcer of other part of left lower leg with necrosis of muscle PLAN: Patient was examined and evaluated. All findings were discussed with the patient. All questions were answered to the patient's satisfaction. The patient's left proximal full-thickness ulceration is now healed. Educated the patient to apply hydrocortisone cream for the next 2 weeks secondary to dermatitis, adhesive reaction. Patient was understanding of this. Patient has been very grateful for her care. She plans to have the PICC line removed tomorrow by nursing staff. Educated the patient to follow-up with her orthopedic surgeon to show the quality results of healing to her full-thickness wound to the left leg. Again patient is grateful for her care and will follow-up as needed. . (2) Dermatitis: CODE(S): L30.9 - Dermatitis, unspecified
== END 2023-12-20 23:59 | disposition home or self-care (01) ==
LOC: WC 10:39
PROVIDERS: PCP Family Medicine; Referring Provider Family Medicine; Visit Provider Podiatrist Foot & Ankle Surgery
DX: Z09 Encounter for follow-up examination after completed treatment for conditions other than malignant neoplasm (principal); I89.0 Lymphedema, not elsewhere classified; L30.9 Dermatitis, unspecified
CPT/HCPCS: 99213; G0463

== ENCOUNTER 2023-11-22 09:28 | Emergency (ER) | payer MEDICARE, MEDICAID, SELFPAY ==
[2023-11-22 09:29] VITALS: BP 133/80; PULSE 113; RESP 14; TEMP 36.1; O2SAT 98
--- NOTE | 2023-11-22 09:36 | EDS_ITS ---
HPI History of Present Illness HPI Narrative: Patient presents with left knee pain that began after a fall approximately 3 to 4 weeks ago. Patient states she slipped getting out of a car at that time and fell onto her left knee. Patient states her pain has been gradually getting worse. Patient states her pain is constant. Patient states her pain is worse with weightbearing. Patient states it is better with rest. Patient describes her pain as sharp and burning. Patient denies any paresthesias or weakness. Patient denies any other injuries. Patient states she has had history of an infection in her shoulder in the past and is concerned that she may have an infection in her knee from the fall. Chief Complaint: Lower Extremity Injury Informant: patient Occured/Mechanism Mechanism/Context: Yes fall Onset/Context/Timing Onset: Weeks (3-4) Context: Gradual Onset Timing: Continuous Quality of Pain: Sharp and Burning Location: Left knee Worsened by: Weightbearing Relieved by: Rest Associated Symptoms Associated Symptoms: Negative for Parasthesia or Weakness [facility] History Acidosis, lactic Anemia Anticoagulant long-term use Anxiety and depression Bilateral lower extremity edema Celiac disease CKD (chronic kidney disease) Compartment syndrome of left lower extremity Diabetes mellitus, type 2 Encounter for dialysis catheter care Gastroparesis GERD (gastroesophageal reflux disease) High risk medication use History of pulmonary embolism History of venous thromboembolism Immunocompromised state due to drug therapy Iron deficiency anemia due to chronic blood loss 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 Lupus anticoagulant disorder Morbid obesity MTHFR mutation Obesity KIKI (obstructive sleep apnea) Other complications of skin graft (allograft) (autograft) Pleural effusion, left Pulmonary embolism Rheumatoid arthritis Rheumatoid arthritis RLS (restless legs syndrome) Sepsis Sinus tachycardia Home Medications bupropion HCl 300 mg 24 hr tablet, extended release 300 mg PO DAILY mental health 08/25/18 [History Last Taken 08/28/23] ropinirole 2 mg tablet,extended release 24 hr 2 mg PO QHS restless legs 08/25/18 [History Last Taken 09/20/22] rivaroxaban 20 mg tablet (Xarelto) 20 mg PO DAILY blood thinner 06/01/22 [History Last Taken 08/27/23] atenolol 50 mg tablet 50 mg PO DAILY HEART 09/21/22 [History Last Taken 08/28/23] buspirone 10 mg tablet 10 mg PO DAILY ANXIETY 09/21/22 [History Last Taken 08/28/23] buspirone 10 mg tablet 20 mg PO QHS ANXIETY 09/21/22 [History Last Taken 08/27/23] fluvoxamine 100 mg tablet 100 mg PO DAILY MENTAL HEALTH 09/21/22 [History Last Taken 08/28/23] pantoprazole 40 mg tablet,delayed release 40 mg PO BID reflux #60 tabs 10/26/22 [Rx Last Taken 08/28/23] sucralfate 1 gram tablet 1 g PO Q6H reflux #120 tabs 10/26/22 [Rx Last Taken 08/28/23] duloxetine 30 mg capsule,delayed release 30 mg PO DAILY mental health 06/29/23 [History Last Taken 08/28/23] quetiapine 50 mg tablet 50 mg PO QHS sleep 06/29/23 [History Last Taken 08/27/23] tizanidine 4 mg tablet 4 mg PO QHS spasms 06/29/23 [History Last Taken Unknown] pramipexole 0.75 mg tablet 0.75 mg PO TID restless leg 08/17/23 [History Last Taken Unknown] acetaminophen 325 mg tablet 1,000 mg (3.0769 x 325 mg) PO Q8H PRN PRN Fever, pain 1-04/30 #0 tabs 08/23/23 [Rx Last Taken 09/14/23] ferrous sulfate 325 mg (65 mg iron) tablet (FeroSul) 325 mg PO QODAY@1200 anemia #0 tabs 08/23/23 [Rx Last Taken 08/27/23] cefazolin 2 gram intravenous solution 2 g IV Q8H 40 days 10/10/23 [Rx Last Taken Unknown] acetaminophen 500 mg tablet 1,000 mg (2 x 500 mg) PO Q8 #0 tabs 10/11/23 [Rx Last Taken Unknown] benzocaine 6 mg-menthol 10 mg lozenges (Chloraseptic Sore Throat) 2 tim mucous membrane Q2H PRN PRN SORE THROAT #0 ea 10/11/23 [Rx Last Taken Unknown] fluconazole 100 mg tablet (Diflucan) 100 mg PO DAILY #7 tabs 10/11/23 [Rx Last Taken Unknown] lorazepam 1 mg tablet 1 mg PO Q6H PRN PRN Anxiety #10 tabs 10/11/23 [Rx Last Taken Unknown] oxycodone 5 mg tablet 10 mg (2 x 5 mg) PO Q4H PRN PRN Pain Score 6-10 2 days #20 tabs 10/11/23 [Rx Last Taken Unknown] pramipexole 0.5 mg tablet 0.5 mg PO QHS #1 TAB 10/11/23 [Rx Last Taken Unknown] pramipexole 1 mg tablet 1 mg PO QHS #1 TAB 10/11/23 [Rx Last Taken Unknown] quetiapine 25 mg tablet 75 mg (3 x 25 mg) PO QHS #0 tabs 10/11/23 [Rx Last Taken Unknown] sucralfate 1 gram tablet 1 g PO 1HR_ACHS #0 tabs 10/11/23 [Rx Last Taken Unknown] tizanidine 2 mg tablet 4 mg (2 x 2 mg) PO QHS #0 tabs 10/11/23 [Rx Last Taken Unknown] Allergy/AdvReac Type Severity Reaction Status Date / Time adhesive tape AdvReac Rash Verified 11/22/23 09:30 Family History Mother Cancer Lung CA w/ concurrent tobacco use. Heart disease Father No problems noted. Surgical History History of arthroscopy of right shoulder History of fasciotomy History of hysterectomy History of total bilateral knee replacement S/P pericardial window creation Social History household members: family Smoking Status: Never smoker alcohol intake: never substance use type: does not use ROS ROS ED Constitutional Constitutional ED: Denies chills or fever(s) Eyes Eyes: Denies blurry vision or change in vision ENT ENT ED: Denies rhinorrhea or sore throat Cardiovascular Cardiovascular: Denies chest pain or palpitations Respiratory/Chest Respiratory/Chest: Denies cough or dyspnea Gastrointestinal Gastrointestinal: Denies nausea or vomiting Genitourinary Genitourinary ED: Denies dysuria or hematuria Musculoskeletal Musculoskeletal: Denies back pain or neck pain Integumentary Denies abscess or rash Neurologic Neurologic: Denies headache(s) or weakness Allergic/Immunologic Allergic/Immunologic ED: Denies mouth swelling or urticaria EXAM Physical Exam Const Vital Signs: 11/22/23 09:29 Temperature 97 F L Temperature Source Temporal Pulse Rate 113 H Respiratory Rate 14 Blood Pressure 133/80 H Blood Pressure Mean 97 Pulse Ox 98 Oxygen Delivery Method Room Air Positive well nourished, well developed and obese General Appearance ED: well developed and NAD Nutritional Appearance: obese HEENT Reports moist mucous membranes Neck full ROM and supple Resp normal respiratory effort and clear to auscultation bilaterally Cardio regular rate and regular rhythm GI non-tender and non-distended Palpation: soft Extremity Extremity Narrative: There is diffuse tenderness over the left knee. There is some mild edema. There is no ecchymosis. There is no bony crepitance or step-off noted. There is no erythema or warmth noted. Range of motion was slightly limited in all motions of the left knee secondary to pain. Strength is 5/5 bilaterally in lower extremities. Sensation was intact to light touch in all digits. Capillary refills less than 2 seconds in all digits. Pedal pulses are equal bilaterally. Neuro oriented x3, CN's II-XII intact bilaterally, moves all extremities and no sensory deficits noted Sensorium / Orientation: alert Motor Exam: strength 5/5 throughout Psych mental status grossly normal Skin no wounds MDM MDM MDM Narrative Medical decision making narrative: Differential diagnosis includes occult fracture, sprain, contusion, and joint infection. X-rays of the left knee will be obtained to assess for fracture and dislocation. CBC will be obtained to assess for leukocytosis and anemia. Basic metabolic profile will be obtained to assess for electrolyte abnormality and renal function. Lab Data Attestation: I reviewed the patient's lab results. Lab results narrative: CBC was reviewed. There is a mild anemia with a hemoglobin of 5.4 and hematocrit of 32.8. This was improved from previous results. Basic metabolic profile was reviewed. Glucose was slightly elevated at 123. The remainder is within normal limits. Labs: Laboratory Results - last 24 hr 11/22/23 10:15 WBC 9.2 RBC 3.86 L Hgb 9.4 L Hct 32.8 L MCV 85.0 MCH 24.4 L MCHC 28.7 L RDW Std Deviation 58.5 H RDW Coeff of Chepe 18.8 H Plt Count 474 H MPV 9.7 Immature Gran % (Auto) 0.200 Neut % (Auto) 59.9 Lymph % (Auto) 20.4 [place] % (Auto) 13.6 H Eos % (Auto) 4.9 Baso % (Auto) 1.0 Absolute Neuts (auto) 5.5 Absolute Lymphs (auto) 1.87 Nucleated RBC % 0 Sodium 135 L Potassium 4.3 Chloride 100 Carbon Dioxide 27.0 Anion Gap 8 BUN 11 Creatinine 0.77 Estim Creat Clear Calc 120.81 Est GFR (MDRD) Af Amer 101 Est GFR (MDRD) Non-Af 84 BUN/Creatinine Ratio 14.3 Glucose 123 H Calcium 10.2 H Radiography Diagnostic Testing: Clinical Impression(s) from Imaging Studies Knee X-Ray 11/22/23 10:25 IMPRESSION: Status post total knee replacement. Large joint effusion. Diffuse soft tissue swelling. Electronically Signed: Yan Clement MD at 10:38 EDT , X-rays of the left knee were obtained. There are 4 views. On my independent interpretation, there is no acute fracture. There is soft tissue swelling noted. There is a large joint effusion. There is previous total knee replacement. There is no loosening of the prosthesis. Radiologist also interpreted the x-rays and agrees. Treatment and Re-Evaluation Narrative: Patient was advised of her findings. With a normal white blood cell count, no erythema or warmth over the knee, I do not feel it is from a septic arthritis. Patient was instructed to continue Tylenol as needed for pain. Patient was instructed to continue using ice to the area. Patient was instructed to follow- up with her orthopedic surgeon in 5 to 7 days. Patient was instructed to return if any redness or warmth is noted in her knee, or if worse in any way. Patient understood and was agreeable with the plan. All questions were answered. Discharge Plan Triage Chief Complaint: Lower Extremity Injury ED Provider: Leland Deleon Dx/Rx/DC Orders Clinical Impression: Acute pain of left knee, Obesity, morbid, BMI 50 or higher Instructions: ED Knee Pain of Uncertain Cause Prescriptions: No Action bupropion HCl 300 MG tablet extended release 24 hr 300 mg PO DAILY ropinirole 2 MG tablet extended release 24 hr 2 mg PO QHS Xarelto 20 mg tablet 20 mg PO DAILY Hold Instructions: Resume on 08/25/23. Patient Comments: TAKE 1 TABLET BY MOUTH EVERY DAY WITH SUPPER fluvoxamine 100 mg tablet 100 mg PO DAILY buspirone 10 mg tablet 10 mg PO DAILY Patient Comments: TAKE 1 TABLET BY MOUTH EVERY MORNING AND TAKE 2 TABLETS BY MOUTH AT BEDTIME buspirone 10 mg tablet 20 mg PO QHS Patient Comments: TAKE 1 TABLET BY MOUTH EVERY MORNING AND TAKE 2 TABLETS BY MOUTH AT BEDTIME atenolol 50 mg tablet 50 mg PO DAILY Patient Comments: TAKE 1 TABLET BY MOUTH EVERY DAY pantoprazole 40 mg Tablet,Delayed Release (Dr/Ec) 40 mg PO BID Qty: 60 2RF sucralfate 1 gram tablet 1 g PO Q6H Qty: 120 1RF Hold Instructions: Pt is ill duloxetine 30 mg capsule,delayed release(DR/EC) 30 mg PO DAILY quetiapine 50 mg tablet 50 mg PO QHS tizanidine 4 mg tablet 4 mg PO QHS pramipexole 0.75 mg tablet 0.75 mg PO TID acetaminophen 325 mg Tablet 1,000 mg PO Q8H PRN PRN (Reason: Fever, pain 1-04/30) Qty: 0 0RF ferrous sulfate [FeroSul] 325 mg (65 mg iron) Tablet 325 mg PO QODAY@1200 Qty: 0 0RF cefazolin 2 gram recon soln 2 g IV Q8H 40 Days Rx Instructions: stop date 11/19/23. Dx: MSSA bacteremia. Weekly bmp, cbc, and esr. Fax to [phone]. Routine picc care per protocol. quetiapine 25 mg Tablet 75 mg PO QHS Qty: 0 0RF tizanidine 2 mg Tablet 4 mg PO QHS Qty: 0 0RF sucralfate 1 gram Tablet 1 g PO 1HR_ACHS Qty: 0 0RF acetaminophen 500 mg Tablet 1,000 mg PO Q8 Qty: 0 0RF lorazepam 1 mg Tablet 1 mg PO Q6H PRN PRN (Reason: Anxiety) Qty: 10 0RF Chloraseptic Sore Throat 6-10 mg Lozenge 2 tim mucous membrane Q2H PRN PRN (Reason: SORE THROAT) Qty: 0 0RF pramipexole 1 mg Tablet 1 mg PO QHS Qty: 1 0RF pramipexole 0.5 mg Tablet 0.5 mg PO QHS Qty: 1 0RF oxycodone 5 mg Tablet 10 mg PO Q4H PRN PRN (Reason: Pain Score 6-10) 2 Days Qty: 20 0RF fluconazole [Diflucan] 100 mg tablet 100 mg PO DAILY Qty: 7 0RF Rx Instructions: 1 daily for 7 days starting 10/12/2023 Primary Care Provider: Tarah Dubon Referrals: Tarah Dubon DO [Primary Care Provider] - 3-5 Days Disposition Disposition: Home, Self Care
[2023-11-22 09:39] VITALS: BMI 47.9
--- NOTE | 2023-11-22 10:25 | RAD_ITS ---
STUDY: X-RAY - LEFT KNEE REASON FOR EXAM: Female, 52 years old. Injury/Pain. Worsening pain. TECHNIQUE: 4 view(s) of the knee. COMPARISON: None. FINDINGS: Normal visualized distal femur. Normal visualized proximal tibia and fibula. Normal proximal tibiofibular articulation. The patient is status post total knee replacement. There is good alignment. Joint effusion. Soft tissue swelling. RAD/Knee 4 or More Views IMPRESSION: Status post total knee replacement. Large joint effusion. Diffuse soft tissue swelling. Electronically Signed: Yan Clement MD at 10:38 EDT ,
[2023-11-22 10:29] LABS: Absolute Lymphocyte Count 1.87 X10^3/uL (0.83-4.51); Absolute Neutrophil Count 5.5 X10^3/uL (2.0-7.7); Basophil# 0.09 X10^3/uL; Eosinophil# 0.45 X10^3/uL; Eosinophils% 4.9 % (0-5); Hematocrit 32.8 % (37-47); Hemoglobin 9.4 g/dL (12.0-15.0); Lymphocyte # 1.87 X10^3/ul (0.83-4.51); Lymphocyte % 20.4 % (19-41); Mean Corp Hgb Conc 28.7 g/dL (32-36); Mean Corpuscular Hgb 24.4 pg (27.0-32.0); Mean Platelet Vol. 9.7 fl (6.2-12.0); Monocyte# 1.25 X10^3/uL; Monocyte% 13.6 % (0-10); NRBC Flagged by Analyzer 0 % (0-5); Neutrophil % 59.9 % (47-70); Platelet Count 474 K/mm3 (150-450); RBC Distribution Width CV 18.8 % (11.6-14.6); RBC Distribution Width SD 58.5 fl (35.1-43.9); Red Blood Count 3.86 M/mm3 (4.2-5.4); White Blood Count 9.2 K/mm3 (4.4-11.0)
[2023-11-22 10:36] LABS: Anion Gap 8 (5-15); BUN 11 mg/dL (7-18); BUN/Creat Ratio 14.3 RATIO (10-20); Calcium,Total 10.2 mg/dL (8.5-10.1); Chloride 100 mmol/L (98-107); Creatinine, Serum 0.77 mg/dL (0.55-1.02); EST Glomerular Filtration Rate 84 mL/min (>60); Est Glom Filt Rate - Afr Amer 101 mL/min (>60); Estimated Creatinine Clearance 120.81 ml/min; Glucose 123 mg/dL (74-106); Potassium 4.3 mmol/L (3.5-5.1); Sodium Level 135 mmol/L (136-145)
[2023-11-22] MEDS: HYDROcodone Bitartrate/Apap 5/325 Tablet PO (11:17)
[2023-11-22 11:18] VITALS: BP 123/78; PULSE 75; RESP 16; TEMP 36.6; O2SAT 99
== END 2023-11-22 11:23 | disposition home or self-care (01) ==
PROVIDERS: Emergency Provider Emergency Medicine; PCP Family Medicine; Visit Provider Emergency Medicine
DX: M25.562 Pain in left knee (principal); E66.01 Morbid (severe) obesity due to excess calories; Z68.43 Body mass index [BMI] 50.0-59.9, adult; E11.22 Type 2 diabetes mellitus with diabetic chronic kidney disease; N18.9 Chronic kidney disease, unspecified; G47.33 Obstructive sleep apnea (adult) (pediatric)
CPT/HCPCS: 73564; 80048; 85025; 99282

== ENCOUNTER 2023-12-23 14:49 | Emergency (ER) | payer MEDICARE, MEDICAID, SELFPAY ==
[2023-12-23 14:50] VITALS: BP 108/72; PULSE 109; RESP 18; TEMP 36.4; O2SAT 100
--- NOTE | 2023-12-23 15:15 | VDLE_ITS ---
Reason For Study: LLE Pain RIGHT LEFT CFV is compressible, spontaneous, phasic, GSV is normal. competent and demonstrates normal CFV is compressible, spontaneous, phasic, augmentation. competent, and demonstrates normal Procedure augmentation. This is a venous duplex using B-mode, color FV is compressible, spontaneous, phasic, flow and spectral Doppler. competent and demonstrates normal Exam performed portable in ED. augmentation. Limited views were obtained. POP V is compressible, spontaneous, phasic, A preliminary report was called and/or faxed competent and demonstrates normal to Dr. Contreras. augmentation. T/P Trunk is compressible. PTV is compressible. LT PerV is compressible. Hypoechoic, non vascular structure noted Lt Pop Fossa measuring 4.25cm x 1.79cm Limited evaluation of calf veins due to hx of compartment syndrome surgery. VL/Venous Duplex US, Unilateral Interpretation Summary Deep veins of the left lower extremity are patent and compressible segmentally. There is no evidence of left lower extremity deep vein thrombosis. The left great saphenous vein tessie ears patent and compressible segmentally. Hypoechoic, non vascular structure noted left popliteal fossa measuring 4.25cm x 1.79cm Ordering Physician: Tan Contreras Referring Physician: Tarah Dubon Performed By: Brigette Naylor RDCS, RVT
--- NOTE | 2023-12-23 15:17 | ED.VIS.LOWEX ---
HPI History of Present Illness Chief Complaint: Wound Narrative Narrative: 53-year-old female presents with a lump in the posterior/popliteal fossa of her left leg that she noticed yesterday. She describes burning pain and tenderness to touching it. She states she was putting lotion on her leg yesterday when she noticed it. She denies any chest pain or shortness of breath. No fevers or chills, no exacerbating or alleviating factors. She states her primary care provider is out of town so that is why she decided come to the emergency department for evaluation. She is also concerned because she relates history that she had compartment syndrome in the same leg remotely. [facility] Medical History Encounter for dialysis catheter care Sepsis Acidosis, lactic Diabetes mellitus, type 2 CKD (chronic kidney disease) Anticoagulant long-term use History of pulmonary embolism Iron deficiency anemia due to chronic blood loss Gastroparesis Celiac disease Obesity Anemia Pleural effusion, left KIKI (obstructive sleep apnea) Anxiety and depression Rheumatoid arthritis GERD (gastroesophageal reflux disease) Pulmonary embolism History of venous thromboembolism Lupus anticoagulant disorder MTHFR mutation Rheumatoid arthritis RLS (restless legs syndrome) Sinus tachycardia Morbid obesity Bilateral lower extremity edema Other complications of skin graft (allograft) (autograft) Immunocompromised state due to drug therapy 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 Compartment syndrome of left lower extremity Home Medications ?Medication ?Instructions ?Recorded ?Last Taken ?Type bupropion HCl 300 mg 24 hr tablet, 300 mg PO DAILY mental health 08/25/18 08/28/23 History extended release ropinirole 2 mg tablet,extended 2 mg PO QHS restless legs 08/25/18 09/20/22 History release 24 hr rivaroxaban 20 mg tablet (Xarelto) 20 mg PO DAILY blood thinner 06/01/22 08/27/23 History atenolol 50 mg tablet 50 mg PO DAILY HEART 09/21/22 08/28/23 History buspirone 10 mg tablet 10 mg PO DAILY ANXIETY 09/21/22 08/28/23 History buspirone 10 mg tablet 20 mg PO QHS ANXIETY 09/21/22 08/27/23 History fluvoxamine 100 mg tablet 100 mg PO DAILY MENTAL HEALTH 09/21/22 08/28/23 History pantoprazole 40 mg tablet,delayed 40 mg PO BID reflux #60 tabs 10/26/22 08/28/23 Rx release sucralfate 1 gram tablet 1 g PO Q6H reflux #120 tabs 10/26/22 08/28/23 Rx duloxetine 30 mg capsule,delayed 30 mg PO DAILY mental health 06/29/23 08/28/23 History release quetiapine 50 mg tablet 50 mg PO QHS sleep 06/29/23 08/27/23 History tizanidine 4 mg tablet 4 mg PO QHS spasms 06/29/23 Unknown History pramipexole 0.75 mg tablet 0.75 mg PO TID restless leg 08/17/23 Unknown History acetaminophen 325 mg tablet 1,000 mg (3.0769 x 325 mg) PO Q8H 08/23/23 09/14/23 Rx PRN PRN Fever, pain 1-04/30 #0 tabs ferrous sulfate 325 mg (65 mg 325 mg PO QODAY@1200 anemia #0 tabs 08/23/23 08/27/23 Rx iron) tablet (FeroSul) cefazolin 2 gram intravenous 2 g IV Q8H 40 days 10/10/23 Unknown Rx solution acetaminophen 500 mg tablet 1,000 mg (2 x 500 mg) PO Q8 #0 tabs 10/11/23 Unknown Rx benzocaine 6 mg-menthol 10 mg 2 tim mucous membrane Q2H PRN PRN 10/11/23 Unknown Rx lozenges (Chloraseptic Sore Throat) SORE THROAT #0 ea fluconazole 100 mg tablet 100 mg PO DAILY #7 tabs 10/11/23 Unknown Rx (Diflucan) lorazepam 1 mg tablet 1 mg PO Q6H PRN PRN Anxiety #10 10/11/23 Unknown Rx tabs oxycodone 5 mg tablet 10 mg (2 x 5 mg) PO Q4H PRN PRN 10/11/23 Unknown Rx Pain Score 6-10 2 days #20 tabs pramipexole 0.5 mg tablet 0.5 mg PO QHS #1 TAB 10/11/23 Unknown Rx pramipexole 1 mg tablet 1 mg PO QHS #1 TAB 10/11/23 Unknown Rx quetiapine 25 mg tablet 75 mg (3 x 25 mg) PO QHS #0 tabs 10/11/23 Unknown Rx sucralfate 1 gram tablet 1 g PO 1HR_ACHS #0 tabs 10/11/23 Unknown Rx tizanidine 2 mg tablet 4 mg (2 x 2 mg) PO QHS #0 tabs 10/11/23 Unknown Rx Allergy/AdvReac Type Severity Reaction Status Date / Time adhesive tape AdvReac Rash Verified 12/23/23 14:50 Family History Mother Cancer Lung CA w/ concurrent tobacco use. Heart disease Father No problems noted. Surgical History History of arthroscopy of right shoulder History of fasciotomy S/P pericardial window creation History of total bilateral knee replacement History of hysterectomy Social History household members: family Smoking Status: Never smoker alcohol intake: never substance use type: does not use ROS ROS ED ROS Narrative Constitutional: No fever, no chills. HEENT: No sore throat. No neck pain. No loss of vision. No rhinorrhea. Cardiovascular: No chest pain. No palpitations. No pedal edema. Respiratory: No cough, no shortness of breath. Abdominal: No abdominal pain. No nausea. No vomiting. Genitourinary: No dysuria. No hematuria. Musculoskeletal: No myalgias. No arthralgias. Tender lump and popliteal fossa of left lower extremity. Neurologic: No headaches. No dizziness. No lightheadedness. Skin: No rash. No change in color. Psychiatric: No depression. No anxiety. EXAM Physical Exam Narrative Exam Narrative: Afebrile. Vital signs noted. HEENT: Normocephalic. Atraumatic. PERRL, EOMI. Neck soft and supple. No point tenderness or step off. Cardiovascular: Regular rate and rhythm. No murmurs, rubs, or gallops appreciated. Respiratory: No tachypnea. Lungs clear to auscultation bilaterally. Gastrointestinal: Abdomen soft, nontender, with normoactive bowel sounds. No rebound or guarding. Neurological: Awake. Alert. Nonfocal, nonlateralizing. Skin: No rash. Normal color. No pallor. Musculoskeletal: No pedal edema. Full range of motion extremities. Compartments of left lower extremity soft. Positive cystlike structure, 2 cm in left popliteal fossa, more laterally. No erythema. No purulent drainage. Const Vital Signs: 12/23/23 14:50 Temperature 97.5 F L Temperature Source Temporal Pulse Rate 109 H Respiratory Rate 18 Blood Pressure 108/72 Blood Pressure Mean 84 Pulse Ox 100 MDM MDM MDM Narrative Medical decision making narrative: In the differential diagnosis is Hernandez's cyst versus aneurysm of blood vessel. I have low suspicion for abscess because the history and physical exam does not support this. Ultrasound was obtained of the left lower extremity to also rule out DVT. With the swelling being localized, I do favor a Hernandez's cyst. In discussion with cogeneration technician, patient is negative for DVT. It does appear that she probably has a Hernandez's cyst. She has seen Dr. Buchanan with orthopedics in the past so she was referred back to him regarding her Hernandez's cyst. I do not feel she needs antibiotics or narcotic pain medication. I feel she can be discharged home in stable condition. Return instructions to the emergency department were reviewed. Discharge Plan Triage Chief Complaint: Wound ED Provider: Tan Contreras Dx/Rx/DC Orders Clinical Impression: Hernandez's cyst, unruptured Instructions: ED Hernandez's Cyst Prescriptions: No Action bupropion HCl 300 MG tablet extended release 24 hr 300 mg PO DAILY ropinirole 2 MG tablet extended release 24 hr 2 mg PO QHS Xarelto 20 mg tablet 20 mg PO DAILY Patient Comments: TAKE 1 TABLET BY MOUTH EVERY DAY WITH SUPPER fluvoxamine 100 mg tablet 100 mg PO DAILY buspirone 10 mg tablet 10 mg PO DAILY Patient Comments: TAKE 1 TABLET BY MOUTH EVERY MORNING AND TAKE 2 TABLETS BY MOUTH AT BEDTIME buspirone 10 mg tablet 20 mg PO QHS Patient Comments: TAKE 1 TABLET BY MOUTH EVERY MORNING AND TAKE 2 TABLETS BY MOUTH AT BEDTIME atenolol 50 mg tablet 50 mg PO DAILY Patient Comments: TAKE 1 TABLET BY MOUTH EVERY DAY pantoprazole 40 mg Tablet,Delayed Release (Dr/Ec) 40 mg PO BID Qty: 60 2RF sucralfate 1 gram tablet 1 g PO Q6H Qty: 120 1RF duloxetine 30 mg capsule,delayed release(DR/EC) 30 mg PO DAILY quetiapine 50 mg tablet 50 mg PO QHS tizanidine 4 mg tablet 4 mg PO QHS pramipexole 0.75 mg tablet 0.75 mg PO TID acetaminophen 325 mg Tablet 1,000 mg PO Q8H PRN PRN (Reason: Fever, pain 1-10/10) Qty: 0 0RF ferrous sulfate [FeroSul] 325 mg (65 mg iron) Tablet 325 mg PO QODAY@1200 Qty: 0 0RF cefazolin 2 gram recon soln 2 g IV Q8H 40 Days Rx Instructions: stop date 11/19/23. Dx: MSSA bacteremia. Weekly bmp, cbc, and esr. Fax to [phone]. Routine picc care per protocol. quetiapine 25 mg Tablet 75 mg PO QHS Qty: 0 0RF tizanidine 2 mg Tablet 4 mg PO QHS Qty: 0 0RF sucralfate 1 gram Tablet 1 g PO 1HR_ACHS Qty: 0 0RF acetaminophen 500 mg Tablet 1,000 mg PO Q8 Qty: 0 0RF lorazepam 1 mg Tablet 1 mg PO Q6H PRN PRN (Reason: Anxiety) Qty: 10 0RF Chloraseptic Sore Throat 6-10 mg Lozenge 2 tim mucous membrane Q2H PRN PRN (Reason: SORE THROAT) Qty: 0 0RF pramipexole 1 mg Tablet 1 mg PO QHS Qty: 1 0RF pramipexole 0.5 mg Tablet 0.5 mg PO QHS Qty: 1 0RF oxycodone 5 mg Tablet 10 mg PO Q4H PRN PRN (Reason: Pain Score 6-10) 2 Days Qty: 20 0RF fluconazole [Diflucan] 100 mg tablet 100 mg PO DAILY Qty: 7 0RF Rx Instructions: 1 daily for 7 days starting 10/12/2023 Primary Care Provider: Tarah Dubon Referrals: Tarah Dubon DO [Primary Care Provider] - 1-2 Weeks Abhishek Buchanan MD [Med Staff - Active Staff] - As Needed Print Language: [place] Disposition Disposition: Home, Self Care
== END 2023-12-23 16:12 | disposition home or self-care (01) ==
PROVIDERS: Emergency Provider Emergency Medicine; PCP Family Medicine; Visit Provider Emergency Medicine
DX: M71.22 Synovial cyst of popliteal space [Baker], left knee (principal); E11.22 Type 2 diabetes mellitus with diabetic chronic kidney disease; N18.9 Chronic kidney disease, unspecified; G47.33 Obstructive sleep apnea (adult) (pediatric); Z86.711 Personal history of pulmonary embolism
CPT/HCPCS: 93971; 99282